=== PATIENT | female | born 1955 | race Caucasian/White ===

== ENCOUNTER → 2017-04-06 12:06 | Outpatient (CLI) | payer BC, SELFPAY ==
--- NOTE | 2017-04-05 | IMM_PTH ---
PATIENT: ERICA RODRIGUEZ LOC: [facility] U#:[id number] AGE/SX: 69/F ROOM: RE04/06/[address]: Dr. Hodan Chong MD : 1955 BED: DIS: SPEC #: [id number] RECD: 04/09/17 12:50 STATUS: JOSE REQ #: [id number] SOILA: 04/05/17 00:[address]: Hodan Chong DEPT: IMMUNOHISTOCHEMISTRY RECD BY: Ada Scott ENTERED: 04/09/17 12:52 SP TYPE: IMMUNO OTHR DR: Dr. Ruth Jones DO Tissues: Left breast, NOS Procedures: CK5-6 (add) CK8 (add) E-CAD (add) HER2 ERNIE (add) KI-67 (add) P53 (add) WY (add) ER (initial) PHYSICIAN & INSTITUTION [place] [id number] SPECIMEN INFORMATION: Tissue Source: Left breast needle core biopsy Clinical Info: Abnormal left mammogram/ultrasound Specimen Number: [id number] CPT code: 87050, 30383 x4, 40863 x3 METHODOLOGY: Deparaffinized sections of prefer/formalin-fixed tissue or PAP/DQ stained slides are incubated with monoclonal/polyclonal antibodies/oligonucleotide probes. Localization is made via biotin free immunoperoxidase method. Appropriate controls are performed and reacted as expected. Results on target cell population are indicated in the following table: RESULTS: ANTIBODY / CLONE RESULT E-Cad (ECH-6) positive CK8 (30gljfC07) positive CK5-6 (D5 & 1684) negative Ki-67 (30-9) positive, moderate P53 (DO-7) positive MORPHOMETRIC ANALYSIS ER (clone 6F11) >95%, strong WY (clone 16/1E2) variable, 0-11%, weak Her-2Neu (clone CB11) 1+ The prognostic test for HER2 is performed on formalin-fixed paraffin embedded tissue. A 3+ (positive) staining pattern is defined as intense, homogeneous, complete, circumferential membranous staining in >10% of contiguous tumor cells. A similar weak (2+) staining pattern is interpreted as equivocal. LUDA follow-up testing is recommended for all equivocal cases. Positivity/negativity for ER/WY is reported if > or < 1% of the tumor cells are immuno- reactive, respectively. The ASCO/CAP criteria is used for scoring. Reference: Journal of Clinical Oncology, 2013; 31:9634-5346 & 2010; 16:6332-6235. Duration of fixation: 54.5 Hrs; Sample Adequate: Yes. These assays have not been validated on decalcified tissues. Results should be interpreted with caution given the likelihood of false negativity on decalcified specimens. These tests were developed and their performance characteristics determined by [facility]. They may not have been cleared or approved by the U.S. Food and Drug Administration. The FDA has determined that such clearance or approval is not necessary. INTERPRETATION: Left breast, ultrasound-guided needle core biopsy: Invasive ductal carcinoma, nuclear grade 3. Positive for estrogen receptors (favorable prognostic indicator). Positive for progesterone receptors (favorable prognostic indicator). Negative for overexpression of QHC1qay. SJ:lilibeth 04/10/17
--- NOTE | 2017-04-05 13:15 | BRBX_PTH ---
PATIENT: ERICA RODRIGUEZ LOC: [facility] U#:[id number] AGE/SX: 69/F ROOM: RE04/06/[address]: Dr. Hodan Chong MD : 1955 BED: DIS: SPEC #: [id number] RECD: 04/06/17 12:01 STATUS: JOSE REWendy #: [id number] SOILA: 04/05/17 13:[address]: Hodan Chong DEPT: SURGICAL PATHOLOGY RECD BY: Ada Scott ENTERED: 04/06/17 15:35 SP TYPE: BREAST BX OTHR DR: Dr. Ruht Jones DO Tissues: Left breast, NOS Procedures: Surgery Specimen Level IV HEADER OPERATION: Ultrasound-guided left breast needle core biopsy PRE-OP DIAGNOSIS: Abnormal left mammogram/ultrasound TISSUE SUBMITTED: Left breast needle core biopsy ISCHEMIC TIME: 3 minutes FIXATION TIME: 54.5 hours MICROSCOPIC DIAGNOSIS Left breast, ultrasound-guided needle core biopsy: Invasive ductal carcinoma, nuclear grade 3 (1 cm in greatest length). See comment. DAI:lilibeth 04/09/17 COMMENT Immunohistochemistry ([id number]) supports the above diagnosis. ER/FL/Iet7yzo studies are being performed on sections of tumor and the results from this study will be reported separately ([id number]). Please make reference to previous specimen ([id number]) left breast, core biopsy with diagnosis of fibrocystic change with associated microcalcifications. MICROSCOPIC DESCRIPTION Slides are reviewed. GROSS DESCRIPTION Received is one container labeled with the patient's name and not further designated. The specimen consists of multiple elongated fragments of bagley-yellow fibroadipose tissue that in aggregate measure 3 x 2 x 0.1 cm. The entire specimen is submitted in one cassette. / DAI:lilibeth 04/06/17 TC:0 CPT: 94574
== END ==
PROVIDERS: Family Provider Internal Medicine; PCP Internal Medicine; Visit Provider Surgery
DX: C50.912 Malignant neoplasm of unspecified site of left female breast (principal)
CPT/HCPCS: 88305; 88341; 88342

== ENCOUNTER 2017-04-20 11:34 | Observation (INO) | payer BC, SELFPAY ==
--- NOTE | 2017-04-19 09:24 | EKG12_ITS ---
Test Reason : PRE OP Blood Pressure : / mmHG Vent. Rate : 066 BPM Atrial Rate : 066 BPM P-R Int : 160 ms QRS Dur : 076 ms QT Int : 408 ms P-R-T Axes : 064 081 059 degrees QTc Int : 427 ms Normal sinus rhythm Normal ECG Confirmed by LOW MCMILLAN, RILEY ([id number]), editor managing newspaper MINERVA KIMBALL ([id number]) on 04/23/2017 1:59:03 PM Referred By: Hodan Chong Confirmed By:RILEY KELSEY MD
[2017-04-19 10:35] LABS: Hematocrit 42.2 % (37-47); Hemoglobin 13.8 g/dl (12.0-15.0); Mean Corp Hgb Conc 32.7 g/gl (32-36); Mean Corpuscular Hgb 28.2 pg (27.0-32.0); Mean Corpuscular Volume 86.3 fL (81-99); Mean Platelet Vol. 9.4 fl (6.2-12.0); Platelet Count 261 K/mm3 (150-450); RBC Distribution Width CV 13.2 % (11.6-14.6); RBC Distribution Width SD 41.5 fl (35.1-43.9); Red Blood Count 4.89 M/mm3 (4.2-5.4); White Blood Count 8.1 K/mm3 (4.4-11.0)
[2017-04-19 10:36] LABS: Scan Indicated on CBC? Y/N NO
[2017-04-19 10:51] LABS: BUN 14 mg/dL (7-18); BUN/Creat Ratio 23.9 RATIO (10-20); Chloride 103 mmol/L (98-107); Creatinine, Serum 0.59 mg/dL (0.55-1.02); EST Glomerular Filtration Rate 110 mL/min (>60); Est Glom Filt Rate - Afr Amer 134 mL/min (>60); Glucose 129 mg/dL (74-106); Potassium 3.9 mmol/L (3.5-5.1); Sodium Level 141 mmol/L (136-145)
[2017-04-19 10:52] LABS: Anion Gap 9 (5-15)
[2017-04-19 11:00] LABS: Hemoglobin A1c 6.3 % (4.2-6.3)
[2017-04-20] VITALS (11 sets, daily range): BP systolic 122–142; BP diastolic 58–71; PULSE 77–105; RESP 16–18; TEMP 36.1–36.9; O2SAT 93–99; BMI 36.2
--- NOTE | 2017-04-20 | AXNB_PTH ---
PATIENT: ERICA RODRIGUEZ LOC: [facility] U#:[id number] AGE/SX: 62/F ROOM: MS311 RE04/20/[address]: Dr. Hodan Chong MD : 1955 BED: 1 DIS: 04/21/2017 SPEC #: [id number] RECD: 04/20/17 13:17 STATUS: JOSE REQ #: [id number] SOILA: 04/20/17 00:[address]: Hodan Chong DEPT: SURGICAL PATHOLOGY RECD BY: Ada Scott ENTERED: 04/20/17 14:12 SP TYPE: AX NODE BX OTHR DR: Dr. Ruth Jones, Tissues: A - Axillary lymph node, NOS B - Left breast, NOS C - Right breast, NOS D - Left breast, NOS Procedures: Frozen Section (charge) Frozen [facility] Surgery Specimen Level IV Surgery Specimen Level V Frozen (no charge) HEADER OPERATION: Left breast mastectomy, left axillary sentinel node biopsy with Neoprobe PRE-OP DIAGNOSIS: Malignant neoplasm of upper outer quadrant of left breast, ER positive TISSUE SUBMITTED: A ? Left breast sentinel nodes, FS, B ? Left breast, C ? Right breast ? suture at tail of Chung, D ? Extra skin and tissue left breast FROZEN SECTION DIAGNOSIS A. Left axillary sentinel lymph nodes, biopsy: Three out of three lymph nodes positive for macrometastatic carcinoma. AM:lilibeth 04/20/17 MICROSCOPIC DIAGNOSIS A. Left axillary sentinel lymph nodes, biopsy: Three out of three lymph nodes positive for macrometastatic carcinoma. See comment. B. Left breast, mastectomy: Invasive ductal carcinoma. C. Right breast: Focal intraductal hyperplasia without atypia. Negative for carcinoma in the sections examined. D. Extra skin and tissue left breast: Negative for carcinoma. INVASIVE BREAST CANCER SUMMARY: (Including specimen A & B) Specimen ? total breast (including nipple and skin). Procedure ? total mastectomy (including nipple and skin). Lymph node sampling ? sentinel lymph nodes Specimen integrity ? single intact specimen. Specimen laterality - left Tumor size ? 3.5 x 3.3 x 3 cm Tumor focality ? single focus of invasive carcinoma Macroscopic and Microscopic extent of tumor: Skin ? invasive carcinoma does not invade into the dermis or epidermis. Nipple ? ductal carcinoma in situ does not nipple epidermis. Skeletal muscle ? no skeletal muscle present. Ductal carcinoma in situ (DCIS) ? no ductal carcinoma in situ is present. Lobular carcinoma in situ (LCIS) ? not identified Histologic type of invasive carcinoma ? invasive ductal carcinoma (no special type). Histologic Grade (Raymon grade): Glandular/tubular differentiation - score 3 Nuclear pleomorphism - score 3 Mitotic count ? score 2 Overall grade - 3 (score of 8) Margins - Margins uninvolved by invasive carcinoma. The invasive carcinoma is 1.5 cm away from the closest posterior margin. Treatment effect: Response to presurgical (neoadjuvant) therapy - no known presurgical therapy. Lymph-Vascular invasion ? not identified Dermal lymph-vascular invasion - not identified Lymph nodes: Number of sentinel lymph nodes examined - 3 Total number of lymph nodes examined (sentinel and nonsentinel) - 3 Number of lymph nodes with macrometastases - 3 Number of lymph nodes with micrometastases and isolated tumor cells - 0 Size of largest metastatic deposit ? 3.6 cm Extranodal extension ? present, focal (0.4 cm in greatest dimension) Distance metastasis ? not applicable Additional pathologic findings ? fibrocystic changes and intraductal hyperplasia without atypia. Ancillary studies - previously performed on section of tumor ([id number] / [id number]). ER ? positive (>95%, strong) SD ? positive (variable, 0-11%, weak) Her2 bhavani ? negative (1+) Microcalcifications ? not identified Clinical history - Please make reference to previous specimen ([id number]) left breast, ultrasound-guided needle core biopsy with diagnosis of invasive ductal carcinoma. PATHOLOGIC STAGE: pT2 pN1a(sn) Mx The above summary is in compliance with [employer] Pathology (CAP) Cancer Protocols Checklist and [place] Joint Committee on Cancer (AJCC), Staging Manual, 8th Ed. SJ:rg 04/25/17 COMMENT A. The lymph nodes are almost completely involved by the metastatic tumor. The largest lymph node measures 3.6 cm in greatest dimension. The largest focus of metastasis measures 3.6 cm in greatest dimension. Focal extranodal distention is noted which measures 0.4 cm in greatest dimension. Case has been reviewed in consultation with Dr. Townsend who concurs with the above diagnosis. IDC:AM MICROSCOPIC DESCRIPTION Slides are reviewed. GROSS DESCRIPTION A - Received fresh for frozen section consultation labeled with the patient's name is a specimen designated left axillary sentinel lymph nodes. The specimen consists of bagley-white, firm soft tissue measuring 6.5 x 5 x 2 cm. Dissection reveals three firm nodules ranging in size from 1.2 to 3.6 cm. Digital Account Executive sections of the nodules are submitted for frozen section consultation in three blocks (one nodule section per block). Additional sections of each nodule are submitted in blocks 4-6 with each nodule inked a different color. / AM: 04/20/17 B - Received in fixative is one container labeled with the patient's name and designated left breast. The specimen consists of a mastectomy specimen measuring 22 x 21 x 9 cm and weighing 1207 gm. Skin measures 20 x 8 cm. Nipple is central and no skin lesions. The specimen is differentially inked as follows: superior ? blue, inferior ? green and posterior ? black. The nipple and areola is grossly unremarkable. No cutaneous lesions are identified. Serial sections reveal a firm, bagley-white mass measuring 3.5 x 3.3 x 3 cm located 1.5 cm from the closest (posterior) margin of excision. The mass is present in the deep central portion of the breast. The remainder of the breast parenchyma is bagley-yellow with focal white streaks. No other mass lesions are identified. Digital Account Executive sections are submitted in 12 cassettes as follows: 1 ? nipple and perpendicular posterior margin, 2 - perpendicular superior and inferior margins, 3 ? perpendicular medial margin, 4 ? perpendicular lateral margin, 5-8 ? tumor, 912 - auto service representative sections of uninvolved breast parenchyma. / AM: 04/20/17 C - Received in fixative is one container labeled with the patient's name and designated right breast. The specimen consists of a mastectomy specimen measuring 25 x 18 x 9.5 cm and weighing 1064 gm. The specimen is differentially inked as follows: superior ? blue, inferior ? green and posterior ? black. The nipple and areola is grossly unremarkable. No cutaneous lesions are identified. Serial sections reveal homogenous yellow cut surfaces without mass lesions. Digital Account Executive sections are submitted in nine cassettes as follows: 1 ? nipple and areola, 2 ? perpendicular superior and inferior margins, 3 ? perpendicular posterior margin, 4 ? perpendicular medial margin, 5 ? perpendicular lateral margin, 69 - auto service representative sections of breast parenchyma. / AM:lilibeth 04/20/17 D - Received in fixative is one container labeled with the patient's name and designated extra skin and tissue, left breast. The specimen consists of multiple variable size pieces of skin and underlying adipose tissue and separate pieces of fibroadipose tissue that in aggregate measure 15 x 8 x 3 cm. The skin surface appears unremarkable. Sections do not reveal any mass lesion. Digital Account Executive sections are submitted in three cassettes. Cassette 1 contains the skin and underlying tissue. / SJ:lilibeth 04/23/17 TC:0 CPT: 00795 x3, 82129, 28292, 59837 x2 ADDENDUM ADDENDUM ADDENDUM ADDENDUM ADDENDUM ADDENDUM 05/28/2017 14:45 ADDENDUM 03/19/2020 10:10 ADDENDUM 05/28/2017 14:45 ADDENDUM 05/28/2017 14:45 ADDENDUM 05/28/2017 14:45 ADDENDUM 05/28/2017 14:45 Regional lymphadenopathy of left axillary contents was performed ([id number]) and shows rare metastatic tumor cells in one of seven lymph nodes. Case has been reviewed in consultation with Dr. Skinner who concurs with the above diagnosis. IDC:SJ PIK[facility] BREAST CANCER REPORT FROM [facility] PIK[facility] RESULT: No mutation detected Please see complete report in e-chart or EMR for further details
[2017-04-20 09:56] LABS: Bedside Glucose 137 mg/dL (70-110)
--- NOTE | 2017-04-20 11:33 | OP.PN_ITS ---
Immediate Post-Op Note Date of Procedure: 04/20/17 Primary Surgeon/Physician: Hodan Chong special education tutor: Unique Cloud Pre-Operative Diagnosis: left breast cancer Post-Operative Diagnosis: same Surgery/Procedure Performed:: left breast mastectomy, left axillary sentinel lymph node biopsy Description of Surgical Findings:: multiple large adenopathy of left axilla - positive Estimated Blood Loss: 100 ml Specimen's removed: left breast tissue, left axillary sentinel lymph macie tissue Type of Anesthesia:: General ASA Class: ASA2 Mod Systematic Disease - Admit VTE Documentation VTE Present on Admission: Yes VTE Mechan Device Prophylaxis: SCD's
[2017-04-20] MEDS: Isosulfan Blue 1% 5 ML Vial (12:00)
[2017-04-20] MEDS: Bupivacaine Mpf 0.5% 30 ML VIAL (13:54)
--- NOTE | 2017-04-20 14:00 | OP.PCM_ITS ---
Report of Operation Date of Procedure: 04/20/17 Pre-Operative Diagnosis: left breast cancer Post-Operative Diagnosis: same Surgery/Procedure Performed:: left breast mastectomy, left axillary sentinel lymph node biopsy Description of Surgical Findings:: multiple large adenopathy of left axilla - positive for metastatic disease institutional cook: Unique Cloud Type of Anesthesia:: General Anesthesiologist: Trung Mills Specimen's removed: left breast tissue, left axillary sentinel lymph macie tissue Drains: 2 15 Fr round passive drains - one left mastectomy and one in left axilla Estimated Blood Loss (mL): 100 ml Fluids Replaced: 1500 ml RL Description of Procedure: After informed consent was given the patient was brought to the OR and placed in the supine position on the operating room table. This procedure was done simultaneously with Dr. Hawkins - as he was doing a prophylactic right mastectomy. Appropriate time out protocol was followed. She was then placed under general anesthesia. 5 cc of diluted 50:50 lymphozurin was then injected into the periareolar area and around the biopsy cavity with a 25 g needle. Gentle massage was then done for a few minutes. The patient's chest and neck area was then prepped with a sterile surgical skin preparation and appropriate sterile surgical drapes were placed. A skin incision was made to include the periareolar tissues as well as to encompass the original biopsy incision. The skin incision was made with a 10 blade scalpel and carried through to the subcutaneous tissues using electrocautery. Any hemorrhage was controlled with electrocautery. The medial and superior skin flap was created by the subcutaneous fat from the breast tissue using electrocautery. Any bleeding vessels were controlled with electrocautery. Larger vessels were ligated with vicryl suture. Dissection then continued to the level of the left lateral sternal border. The superior level of dissection was carried down to the clavipectoral fascia. The inferior skin flap was developed in the same fashion and the breast tissue was to its inferior border from the subcutaneous fat. The entire breast tissue and the pectoralis fascia were then from the pectoralis muscles starting medially and continuing laterally. The dissection included the interpectoral macie tissue. Once dissection was achieved to the lateral aspect of the breast, then the inferior portion of the lateral tissue was transected leaving the breast tissue connected only by the superior lateral tissue (tail of Chung) of the breast. Blunt dissection was then conducted into the axillary fossa to palpate out any axillary lymph nodes. Blue lymphatic channels were also followed to its lymphatic drainage area. There was palpable adenopathy noted in the axilla. This tissue was dissected from the surrounding tissues and the vascular pedicles were ligated with ligaclips. The lymph macie tissue was forwarded to pathology and found to be positive for metastatic disease. Hemostasis of the area of dissection was then achieved with electrocoagulation. Also Jason was applied into the axillary cavity as well as surgicel. The mastectomy bed was vigorously irrigated with sterile water and all irrigation solution was removed. Jason was applied to the mastectomy bed. A 15 Fr drain round drain was placed in the axilla and another was placed along the mastectomy bed and these drains were brought out through separate skin incisions and sutured to the skin using nylon suture. The superior and inferior skin flaps were then approximated together using interrupted vicryl suture along the dermis of the skin edges. The skin incision was then reapproximated with 4-0 monocryl in a running subcuticular fashion. Cavilon and steristrips were then placed to reinforce the skin closure and proper sterile dressings were applied. - Complications none noted - Admit VTE Documentation VTE Present on Admission: Yes VTE Mechan Device Prophylaxis: SCD's
--- NOTE | 2017-04-20 14:54 | PCM.OPRPT ---
Report of Operation Date of Procedure: 04/20/17 Pre-Operative Diagnosis: left breast cancer Post-Operative Diagnosis: same Surgery/Procedure Performed:: right simple mastectomy health workers: Brittny Mccullough Type of Anesthesia:: General Anesthesiologist: Trung Mills Specimen's removed: right breast Drains: 15 Fr round passive drain Estimated Blood Loss (mL): 100 ml Fluids Replaced: 1500 ml RL Description of Procedure: The patients right breast was prepped and draped in the usual fashion. Timeout was performed verifying patient, site, position. The planned margin of excision for the mastectomy flaps were marked on the skin and incisions were made . Dissection was carried superior laterally down to the pectoralis muscle and dissection extended towards the axilla. Superior and inferior flaps were completed and raised. The breast tissue was taken down to the pectoralis fascia. The inferior portion of breast was then removed from the intercostal musculature and dissection carried superior laterally dividing the superficial tissues leading up to the axillary dissection . The specimen was sent whole . 1 Newton-Duarte drain were placed in the medial along the skin flap the lateral in the axilla and secured with 3-0 nylon suture. Skin flaps were approximated interrupted 3-0 Vicryls. Skin was closed with running 4-0 monocryl. Drain dressings and incisional dressings were placed. All sponge and instrument counts were correct. The patient was extubated and brought to recovery room in stable condition.
--- NOTE | 2017-04-20 14:58 | OP.PCM_ITS ---
Report of Operation Date of Procedure: 04/20/17 Pre-Operative Diagnosis: left breast cancer Post-Operative Diagnosis: same Surgery/Procedure Performed:: right simple mastectomy coater brake linings: Brittny Mccullough Type of Anesthesia:: General Anesthesiologist: Trung Mills Specimen's removed: right breast Drains: 15 Fr round passive drain Estimated Blood Loss (mL): 100 ml Fluids Replaced: 1500 ml RL Description of Procedure: The patient?s right breast was prepped and draped in the usual fashion. Timeout was performed verifying patient, site, position. The planned margin of excision for the mastectomy flaps were marked on the skin and incisions were made . Dissection was carried superior laterally down to the pectoralis muscle and dissection extended towards the axilla. Superior and inferior flaps were completed and raised. The breast tissue was taken down to the pectoralis fascia. The inferior portion of breast was then removed from the intercostal musculature and dissection carried superior laterally dividing the superficial tissues leading up to the axillary dissection . The specimen was sent whole . 1 Newton-Duarte drain were placed in the medial along the skin flap the lateral in the axilla and secured with 3-0 nylon suture. Skin flaps were approximated interrupted 3-0 Vicryls. Skin was closed with running 4-0 monocryl. Drain dressings and incisional dressings were placed. All sponge and instrument counts were correct. The patient was extubated and brought to recovery room in stable condition.
[2017-04-20] MEDS: Lactated Ringers 1,000 ML 100 ML IV (15:26)
[2017-04-20 16:11] LABS: Bedside Glucose 162 mg/dL (70-110)
[2017-04-20] MEDS: HYDROcodone Bitartrate/Apap 5/325 Tablet PO (18:44)
[2017-04-20] MEDS: Cefazolin 1 GM/50 ML BAG IV (21:40)
[2017-04-20] MEDS: Temazepam 15 MG Capsule PO (21:44)
[2017-04-21 02:23] VITALS: BP 130/68; PULSE 91; RESP 16; TEMP 37; O2SAT 95
[2017-04-21] MEDS: HYDROcodone Bitartrate/Apap 5/325 Tablet PO ×2 (02:30→09:35)
[2017-04-21] MEDS: Lactated Ringers 1,000 ML 100 ML IV (02:30)
[2017-04-21] MEDS: Cefazolin 1 GM/50 ML BAG IV (05:52)
--- NOTE | 2017-04-21 07:39 | PCM.PN.SRG ---
Subjective: patient feeling well - Physical Exam General: Alert, Oriented x3 Oral: Moist Mucosa Neck: Supple Abdomen: Bowel Sounds Present, Soft Skin: - - dressing intact, no seepage, MAC outputs are serosanguinous Vital Signs Temp Pulse Resp BP Pulse Ox 98.6 F 91 16 130/68 H 95 04/21/17 02:23 04/21/17 02:23 04/21/17 02:23 04/21/17 02:23 04/21/17 02:23 Oxygen Flow Rate (L/min) 2 Oxygen Delivery Method Room Air Weight: 87 kg Body Mass Index (BMI) 36.2 Finger Stick Blood Glucose 162 Intake and Output for Last 24 Hours 04/19/17 04/20/17 04/21/17 23:59 23:59 23:59 Intake Total 3783 / 3783 1606 / 1606 Output Total 75 / 75 595 / 595 Balance 3708 / 3708 1011 / 1011 POC Glucose 04/20/17 04/20/17 16:05 09:32 POC Glucose 162 H 137 H Assessment/Plan Impression: POD#1 bilateral mastectomies for left breast cancer Plan: d/c to home, follow up as outpatient T or W (patient's preference)
--- NOTE | 2017-04-21 07:43 | DCINST_ITS ---
Discharge Diet: No Restrictions Discharge Activity: Return to Normal Activity, May not drive while taking narcotic pain medications. Lifting Restrictions: no lifting with left arm greater than 20 pounds Call your doctor if your incision/area has: Continuous Slow Oozing, Foul Smelling Discharge Call your doctor if you observe: Fever of 101 or Higher Additional Dressing/Incision Instructions:: Leave dressing in place. Sponge bathe only. Empty MAC drains as instructed Allergies/Adverse Reactions: Allergies shellfish derived Allergy (Mild, Verified 04/18/17 14:00) Hives iodine Allergy (Verified 04/18/17 14:00) Hives liraglutide [From Victoza] Adverse Reaction (Verified 04/20/17 09:38) Nausea, VOMITING IV DYE Allergy (Mild, Uncoded 04/18/17 14:00) Hives Medications to take at Discharge Butalbital/Aspirin/Caffeine [Fiorinal 50-325-40 mg Capsule] 1 tab PO DAILY PRN PRN 03/21/13 Fluoxetine [Prozac] 20 mg PO DAILY 03/21/13 Multivitamins,Therapeutic [Multivitamin] 1 tablet PO QHS 03/21/13 Omeprazole [Prilosec] 40 mg PO DAILY 03/21/13 Acetaminophen [Tylenol Extra Strength] 500 - 1,000 mg PO Q6H PRN PRN 04/18/17 Apremilast [Otezla] 30 mg PO BID 04/18/17 Ascorbic Acid [Vitamin C] 500 mg PO MOWEFR 04/18/17 Aspirin/Acetaminophen/Caffeine [Excedrin Migraine Caplet] 1 each PO PRN PRN 08/29 Calm Day 3 cap PO DAILY 04/18/17 Cholecalciferol (Vitamin D3) [Vitamin D3] 4,000 unit PO MOWEFR 04/18/17 Ibuprofen 400 mg PO PRN PRN 04/18/17 Melatonin [Melatin] 6 mg PO QHS 04/18/17 Metformin HCl 500 mg PO BID 04/18/17 Cephalexin [Keflex] 500 mg PO Q12 #20 cap 04/20/17 Hydrocodone Bitart/Apap 5-325 [[place] 5MG-325MG] 1 tab PO Q6H PRN PRN 7 Days #20 tab 04/20/17 The following prescriptions were given: Hydrocodone Bitart/Apap 5-325 [[place] 5MG-325MG] 1 tab PO Q6H PRN PRN 7 Days #20 tab PRN Reason: Severe Pain (-11/21) Cephalexin [Keflex] 500 mg PO Q12 #20 cap Please Follow Up With: Yareli Valentino PA-C - call When: Follow up next Sunday or Sunday, call for date and time, thank you
[2017-04-21 08:21] VITALS: BP 128/55; PULSE 80; RESP 18; TEMP 37.3; O2SAT 96
[2017-04-21] MEDS: 0.9% NaCl Peripheral Flush Adult/Peds IV (08:23)
[2017-04-21] MEDS: FLUoxetine 20 MG Capsule PO (08:41)
[2017-04-21 08:51] LABS: Bedside Glucose 152 mg/dL (70-110)
== END 2017-04-21 10:31 | disposition home or self-care (01) ==
LOC: MS3 04-21 07:05 → SDC 04-21 07:06
PROVIDERS: Surgery; Admitting Provider Surgery; Family Provider Internal Medicine; PCP Internal Medicine; Visit Provider Surgery
PROC: (CPT 19307; principal; 2017-04-20 11:25)
PROC: (CPT 19303; 2017-04-20 11:25)
DX: C50.412 Malignant neoplasm of upper-outer quadrant of left female breast (principal); Z17.0 Estrogen receptor positive status [ER+]; E11.9 Type 2 diabetes mellitus without complications; Z79.899 Other long term (current) drug therapy; Z79.52 Long term (current) use of systemic steroids; Z79.84 Long term (current) use of oral hypoglycemic drugs; Z87.891 Personal history of nicotine dependence; K21.9 Gastro-esophageal reflux disease without esophagitis; E78.00 Pure hypercholesterolemia, unspecified; K58.9 Irritable bowel syndrome, unspecified; F32.9 Major depressive disorder, single episode, unspecified; L40.50 Arthropathic psoriasis, unspecified
CPT/HCPCS: 19303; 19307; 38900; 36415; 80048; 82962; 83036; 85027; 88305; 88307; 88331; 88332; 93005; 96361; 96365; 96366; 96375; 96376; 99218; J3010; J7120; A4216; G0378; J2405; J3490; Q9968

== ENCOUNTER 2017-05-24 05:26 | Day surgery (SDC) | payer BC, SELFPAY ==
[2017-05-24] VITALS (9 sets, daily range): BP systolic 120–159; BP diastolic 54–84; PULSE 71–98; RESP 16; TEMP 36.3–37.4; O2SAT 94–99; BMI 35.4
--- NOTE | 2017-05-24 | IMM_PTH ---
PATIENT: ERICA RODRIGUEZ LOC: [facility] – [place] U#:[id number] AGE/SX: 62/F ROOM: RE05/24/[address]: Dr. Hodan Chong MD : 1955 BED: DIS: 05/24/2017 SPEC #: [id number] RECD: 05/28/17 14:26 STATUS: JOSE REQ #: [id number] SOILA: 05/24/17 00:[address]: Hodan Chong DEPT: IMMUNOHISTOCHEMISTRY RECD BY: Ada Scott ENTERED: 05/28/17 14:27 SP TYPE: IMMUNO OTHR DR: Dr. Ruth Jones, Tissues: A - Axilla, NOS Procedures: Pankeratin (initial) Pankeratin (add) PHYSICIAN & INSTITUTION [place] [id number] SPECIMEN INFORMATION: Tissue Source: A ? Left axillary contents Clinical Info: Left breast cancer Specimen Number: [id number] A1, A2, A4, A5, A7 [facility] code: 42935, 21041 x4 METHODOLOGY: Deparaffinized sections of prefer/formalin-fixed tissue or PAP/DQ stained slides are incubated with monoclonal/polyclonal antibodies/oligonucleotide probes. Localization is made via biotin free immunoperoxidase method. Appropriate controls are performed and reacted as expected. Results on target cell population are indicated in the following table: RESULTS: ANTIBODY / CLONE RESULT Block A1 AE1-3 (AE1/AE3/PCK26) negative Block A2 AE1-3 (AE1/AE3/PCK26) positive Block A4 AE1-3 (AE1/AE3/PCK26) negative Block A5 AE1-3 (AE1/AE3/PCK26) negative Block A7 AE1-3 (AE1/AE3/PCK26) negative These tests were developed and their performance characteristics determined by [facility]. They may not have been cleared or approved by the U.S. Food and Drug Administration. The FDA has determined that such clearance or approval is not necessary. INTERPRETATION: A. Left axillary contents: Isolated metastatic tumor cells present in one out of seven lymph nodes. AM:lilibeth 05/30/17
[2017-05-24 06:06] LABS: Bedside Glucose 178 mg/dL (70-110)
[2017-05-24] MEDS: Cefazolin 2 GM in 0.9% Normal Saline 100 ML IV (07:29)
[2017-05-24] MEDS: Bupivacaine 0.25% 30 ML Vial (07:29)
--- NOTE | 2017-05-24 07:30 | MISC_PTH ---
PATIENT: ERICA RODRIGUEZ LOC: [facility] – [place] U#:[id number] AGE/SX: 62/F ROOM: RE05/24/[address]: Dr. Hodan Chong MD : 1955 BED: DIS: 05/24/2017 SPEC #: [id number] RECD: 05/24/17 10:37 STATUS: JOSE CRISTOFER #: [id number] SOILA: 05/24/17 07:[address]: Hodan Chong DEPT: SURGICAL PATHOLOGY RECD BY: Palmer Choi ENTERED: 05/24/17 12:20 SP TYPE: MISC NATHALIE DR: Dr. Ruth Jones DO Tissues: A - Left axillary region B - Skin of breast, NOS Procedures: Surgery Specimen Level IV HEADER OPERATION: Excision lymph node, axillary PRE-OP DIAGNOSIS: Left breast cancer, invasive ductal, ER/NH positive, HER2 negative, bulky adenopathy of left axilla TISSUE SUBMITTED: A ? Left axillary contents, B ? ?Dog ear? MICROSCOPIC DIAGNOSIS A. Left axillary contents, regional lymphadenectomy: Isolated metastatic tumor cells in one of seven lymph nodes. B. ?Dog ear,? excision: Skin with attached fibrofatty tissue with reactive and reparative change and suture granulomas. No evidence of malignancy. AM:lilibeth 05/28/17 COMMENT Case has been reviewed in consultation with Dr. Skinner who concurs with the above diagnosis. IDC:SJ MICROSCOPIC DESCRIPTION Slides are reviewed. A. The largest lymph node contains benign histiocytic proliferation, fibrosis and minimal chronic inflammation consistent with previous biopsy and resection ([id number]). Immunohistochemistry ([id number]) supports the presence of isolated metastatic tumor cells in one out of seven lymph nodes. GROSS DESCRIPTION A - Received in fixative is one container labeled with the patient's name and designated left axillary contents. The specimen consists of a piece of bagley-yellow adipose tissue with multiple sutures measuring 8 x 6 x 2 cm. One large lymph node is identified measuring 2.5 cm in greatest dimension. Multiple additional smaller lymph nodes are identified measuring 0.5 to 2 cm in greatest dimension. The lymph nodes are submitted in entirety. County Manager sections are submitted as follows: 1 ? multiple lymph nodes, 2-4 ? largest lymph node serially sectioned, 5 ? one bisected lymph node, 6 - one bisected lymph node, 7 ? multiple lymph nodes. Sections will be submitted after overnight fixation. / DAI:lilibeth 05/24/17 B - Received in fixative is one container labeled with the patient's name and designated dog ear. The specimen consists of a piece of skin with underlying adipose tissue measuring 6 x 3 cm and up to 7 cm in thickness. A focal area of scar is noted in the skin surface. The specimen is shaped like a dog ear. No mass lesion is identified. County Manager sections are submitted in four cassettes. / DAI:lilibeth 05/24/17 TC:0 CPT: 41641, 68895
--- NOTE | 2017-05-24 09:00 | OP.PN_ITS ---
Immediate Post-Op Note Date of Procedure: 05/24/17 Primary Surgeon/Physician: Hodan Chong mechanical project manager: Alma Swan Pre-Operative Diagnosis: history of left breast cancer, left axillary bulky adenopathy, left mastectomy dog ear Post-Operative Diagnosis: same as above Surgery/Procedure Performed:: Left axillary lymphadenectomy, revision of left mastectomy dog ear Description of Surgical Findings:: bulky adenopathy of left axilla, left mastectomy lateral dog ear Estimated Blood Loss: 30 ml Specimen's removed: left axillary lymph node contents Drains: 15 Fr round drain Type of Anesthesia:: General ASA Class: ASA2 Mod Systematic Disease - Admit VTE Documentation VTE Present on Admission: Yes VTE Mechan Device Prophylaxis: SCD's
--- NOTE | 2017-05-24 09:00 | PCM.OPRPT ---
Report of Operation Date of Procedure: 05/24/17 Pre-Operative Diagnosis: history of left breast cancer, left axillary bulky adenopathy, left mastectomy dog ear Post-Operative Diagnosis: same as above Surgery/Procedure Performed:: Left axillary lymphadenectomy, revision of left mastectomy dog ear Description of Surgical Findings:: bulky adenopathy of left axilla, left mastectomy lateral dog ear wood machine carver: Alma Swan Type of Anesthesia:: General Anesthesiologist: April Fulton Specimen's removed: left axillary lymph node contents Drains: 15 Fr round drain Estimated Blood Loss (mL): 30 ml Fluids Replaced: 1200 ml RL Description of Procedure: After informed consent was given the patient was brought to the OR and placed in the supine position on the operating room table. Appropriate time out protocol was followed. She was then placed under general anesthesia. The patient's left chest and neck area was then prepped with a betadine surgical skin preparation and appropriate sterile surgical drapes were placed. A skin incision was made in the inferior portion of the hair bearing area of the left axilla. It was carried through to the subcutaneous tissues using electrocautery. Any hemorrhage was controlled with electrocautery. A Weitlaner retractor was used for increased operative exposure. Blunt dissection was done to fully enter into the axillary fossa. The axillary vein was identified. Dissection was then continued inferior to the vein, ligating lymphatic vessels and small blood vessels with the Harmonic scalpel. Dissection was continued laterally until the thoracodorsal bundle was identified. The axillary macie tissue was then carefully from this bundle and the bundle placed back into its proper position. The axillary macie tissue was retracted anteriorly and medially until the long thoracic nerve and vessels were identified. The axillary macie tissue was then from the surrounding fatty tissue and off the chest wall. The Harmonic scalpel was used to separate the macie tissue from the surrounding tissues. The tissue once was then forwarded to pathology for analysis. Of note, there is bulky adenopathy noted in the axillary macie tissue. Hemostasis was controlled with electrocautery. The long thoracic nerve and thoracodorsal nerves were identified and were intact and functioning. Jason was applied into the axillary cavity. A 15 mm round drain was placed in the fossa and brought out through a separate skin incision and sutured to the skin using nylon suture. The deep axillary fascia was reapproximated with interrupted 2-0 vicryl suture. The skin edges were reapproximated with 3-0 vicryl suture in a horizontal mattress fashion and then further closed with running 4-0 monocryl in a subcuticular fashion. Cavilon and steristrips were then placed to reinforce the skin closure and proper sterile dressings were applied. The left breast dog ear revision was then done next. The previous incision site was incised and an ellipse of skin tissue was incised with a 15 blade scalpel incorporating the dog ear tissue. It was sharply carried down to the subcutaneous tissues. Hemostasis was controlled with electrocautery. The extra subcutaneous fatty tissue was excised by sharp dissection. The tissue was forwarded to pathology for analysis. The deep tissues were approximated with vicryl suture. Reapproximation of the skin would require a Y shaped incisional scar. A horizontal mattress suture into the dermis was placed with 3-0 vicryl suture. The skin incision was then closed with running subcuticular 4-0 monocryl suture. Cavilon and steristrips were then placed to reinforce the skin closure and proper sterile dressings were applied. - Complications none noted - Admit VTE Documentation VTE Present on Admission: Yes VTE Mechan Device Prophylaxis: SCD's
--- NOTE | 2017-05-24 09:03 | OP.PCM_ITS ---
Report of Operation Date of Procedure: 05/24/17 Pre-Operative Diagnosis: history of left breast cancer, left axillary bulky adenopathy, left mastectomy dog ear Post-Operative Diagnosis: same as above Surgery/Procedure Performed:: Left axillary lymphadenectomy, revision of left mastectomy dog ear Description of Surgical Findings:: bulky adenopathy of left axilla, left mastectomy lateral dog ear production operations manager: Alma Swan Type of Anesthesia:: General Anesthesiologist: April Fulton Specimen's removed: left axillary lymph node contents Drains: 15 Fr round drain Estimated Blood Loss (mL): 30 ml Fluids Replaced: 1200 ml RL Description of Procedure: After informed consent was given the patient was brought to the OR and placed in the supine position on the operating room table. Appropriate time out protocol was followed. She was then placed under general anesthesia. The patient's left chest and neck area was then prepped with a betadine surgical skin preparation and appropriate sterile surgical drapes were placed. A skin incision was made in the inferior portion of the hair bearing area of the left axilla. It was carried through to the subcutaneous tissues using electrocautery. Any hemorrhage was controlled with electrocautery. A Weitlaner retractor was used for increased operative exposure. Blunt dissection was done to fully enter into the axillary fossa. The axillary vein was identified. Dissection was then continued inferior to the vein, ligating lymphatic vessels and small blood vessels with the Harmonic scalpel. Dissection was continued laterally until the thoracodorsal bundle was identified. The axillary macie tissue was then carefully from this bundle and the bundle placed back into its proper position. The axillary macie tissue was retracted anteriorly and medially until the long thoracic nerve and vessels were identified. The axillary macie tissue was then from the surrounding fatty tissue and off the chest wall. The Harmonic scalpel was used to separate the macie tissue from the surrounding tissues. The tissue once was then forwarded to pathology for analysis. Of note, there is bulky adenopathy noted in the axillary macie tissue. Hemostasis was controlled with electrocautery. The long thoracic nerve and thoracodorsal nerves were identified and were intact and functioning. Jason was applied into the axillary cavity. A 15 mm round drain was placed in the fossa and brought out through a separate skin incision and sutured to the skin using nylon suture. The deep axillary fascia was reapproximated with interrupted 2-0 vicryl suture. The skin edges were reapproximated with 3-0 vicryl suture in a horizontal mattress fashion and then further closed with running 4-0 monocryl in a subcuticular fashion. Cavilon and steristrips were then placed to reinforce the skin closure and proper sterile dressings were applied. The left breast dog ear revision was then done next. The previous incision site was incised and an ellipse of skin tissue was incised with a 15 blade scalpel incorporating the dog ear tissue. It was sharply carried down to the subcutaneous tissues. Hemostasis was controlled with electrocautery. The extra subcutaneous fatty tissue was excised by sharp dissection. The tissue was forwarded to pathology for analysis. The deep tissues were approximated with vicryl suture. Reapproximation of the skin would require a Y shaped incisional scar. A horizontal mattress suture into the dermis was placed with 3 -0 vicryl suture. The skin incision was then closed with running subcuticular 4 -0 monocryl suture. Cavilon and steristrips were then placed to reinforce the skin closure and proper sterile dressings were applied. - Complications none noted - Admit VTE Documentation VTE Present on Admission: Yes VTE Mechan Device Prophylaxis: SCD's
--- NOTE | 2017-05-24 09:03 | PCM.DC.BS ---
Discharge Diet: No Restrictions Discharge Activity: Return to Normal Activity, May not drive while taking narcotic pain medications. Lifting Restrictions: no lifting with left arm greater than 20 pounds Call your doctor if your incision/area has: Continuous Slow Oozing, Foul Smelling Discharge Call your doctor if you observe: Fever of 101 or Higher Additional Dressing/Incision Instructions:: Leave dressings in place. Sponge bathe only until MAC drain is removed. Allergies/Adverse Reactions: Allergies shellfish derived Allergy (Mild, Verified 05/23/17 08:38) Hives iodine Allergy (Verified 05/23/17 08:38) Hives liraglutide [From Victoza] Adverse Reaction (Verified 05/23/17 08:38) Nausea, VOMITING IV DYE Allergy (Mild, Uncoded 05/23/17 08:38) Hives Medications to take at Discharge Butalbital/Aspirin/Caffeine [Fiorinal 50-325-40 mg Capsule] 1 tab PO DAILY PRN PRN 03/21/13 Fluoxetine [Prozac] 20 mg PO DAILY 03/21/13 Multivitamins,Therapeutic [Multivitamin] 1 tablet PO QHS 03/21/13 Omeprazole [Prilosec] 40 mg PO DAILY 03/21/13 Acetaminophen [Tylenol Extra Strength] 500 - 1,000 mg PO Q6H PRN PRN 04/18/17 Apremilast [Otezla] 30 mg PO BID 04/18/17 Ascorbic Acid [Vitamin C] 500 mg PO MOWEFR 04/18/17 Aspirin/Acetaminophen/Caffeine [Excedrin Migraine Caplet] 1 each PO PRN PRN 04/18/17 Calm Day 3 cap PO DAILY 04/18/17 Cholecalciferol (Vitamin D3) [Vitamin D3] 2,000 unit PO DAILY 04/18/17 Ibuprofen 400 mg PO PRN PRN 04/18/17 Melatonin [Melatin] 6 mg PO QHS 04/18/17 Metformin HCl 500 mg PO BID 04/18/17 Calcium (Elemental) [Os-Huy 500] 1,000 mg PO DAILY 05/23/17 Hydrocodone Bitart/Apap 5-325 [[place] 5MG-325MG] 1 tab PO Q6H PRN PRN #20 tab 05/24/17 The following prescriptions were given: Hydrocodone Bitart/Apap 5-325 [[place] 5MG-325MG] 1 tab PO Q6H PRN PRN #20 tab PRN Reason: Pain Primary Care Physician: Ruth Jones, [Primary Care Provider] - Please Follow Up With: Hodan Chong MD - call When: to be seen on Sunday, please call for time, thank you
[2017-05-24 10:36] LABS: Bedside Glucose 126 mg/dL (70-110)
[2017-05-24] MEDS: HYDROcodone Bitartrate/Apap 5/325 Tablet PO (12:08)
== END 2017-05-24 12:00 | disposition home or self-care (01) ==
LOC: SDC 05:26 → AC 05:27
PROVIDERS: Family Provider Internal Medicine; PCP Internal Medicine; Visit Provider Surgery
PROC: (CPT 38500; principal; 2017-05-24 07:15)
DX: C50.412 Malignant neoplasm of upper-outer quadrant of left female breast (principal); C77.3 Secondary and unspecified malignant neoplasm of axilla and upper limb lymph nodes; E11.9 Type 2 diabetes mellitus without complications; K21.9 Gastro-esophageal reflux disease without esophagitis; E78.00 Pure hypercholesterolemia, unspecified; Z87.891 Personal history of nicotine dependence; Z17.0 Estrogen receptor positive status [ER+]; Z85.3 Personal history of malignant neoplasm of breast
CPT/HCPCS: 15839; 38525; 82962; 88305; 88341; 88342; J7120; A4216; J2405

== ENCOUNTER → 2017-12-21 11:24 | Outpatient (CLI) | payer BC, SELFPAY ==
[2017-12-21 11:45] VITALS: BP 121/47; PULSE 94; RESP 18; TEMP 37.7; O2SAT 99
[2017-12-21 11:46] VITALS: BMI 35.2
[2017-12-21] MEDS: Ceftriaxone 2 GM in 0.9% NS 50 ML Minibag x1 IV (12:06)
== END ==
PROVIDERS: Family Provider Internal Medicine; PCP Internal Medicine; Visit Provider Internal Medicine Hematology & Oncology
DX: L03.313 Cellulitis of chest wall (principal); L03.311 Cellulitis of abdominal wall
CPT/HCPCS: 96365; J7050; A4216; J0696

== ENCOUNTER 2018-01-18 19:53 | Emergency (ER) | payer BC, SELFPAY ==
[2018-01-18 19:55] VITALS: BP 126/92; PULSE 107; RESP 18; TEMP 37; O2SAT 97; BMI 35.3
[2018-01-18 20:51] VITALS: BP 142/61; PULSE 101; RESP 17; TEMP 38.7; O2SAT 96
[2018-01-18 20:51] LABS: Absolute Lymphocyte Count 0.73 X10^3/ul (0.83-4.51); Absolute Neutrophil Count 10.8 X10^3/uL (2.0-7.7); Basophil# 0.02 X10^3/uL; Basophil% 0.2 % (0-1); Eosinophil# 0.14 X10^3/uL; Eosinophils% 1.1 % (0-5); Hematocrit 38.2 % (37-47); Hemoglobin 12.4 g/dl (12.0-15.0); Lymphocyte # 0.73 X10^3/ul (4.0); Lymphocyte % 5.9 % (19-41); Mean Corp Hgb Conc 32.5 g/gl (32-36); Mean Corpuscular Hgb 27.3 pg (27.0-32.0); Mean Corpuscular Volume 84.1 fL (81-99); Mean Platelet Vol. 8.5 fl (6.2-12.0); Monocyte# 0.69 X10^3/uL; Monocyte% 5.6 % (0-10); Neutrophil # 10.77 X10^3/uL (2.7-7.7); Neutrophil % 87.1 % (47-70); POSITIVE COUNT NO; POSITIVE DIFFERENTIAL NO; POSITIVE MORPHOLOGY NO; Platelet Count 203 K/mm3 (150-450); RBC Distribution Width CV 14.2 % (11.6-14.6); RBC Distribution Width SD 43.8 fl (35.1-43.9); Red Blood Count 4.54 M/mm3 (4.2-5.4); White Blood Count 12.4 K/mm3 (4.4-11.0)
[2018-01-18 20:53] LABS: ALB/GLOB Ratio 1.1 RATIO (0.9-2.4); AST(SGOT) 16 U/L (15-37); Alanine Aminotransfer ALT/SGPT 24 U/L (13-56); Alkaline Phosphatase 91 U/L (45-117); Anion Gap 7 (5-15); BUN 11 mg/dL (7-18); BUN/Creat Ratio 14.3 RATIO (10-20); Calcium,Total 8.7 mg/dL (8.5-10.1); Chloride 103 mmol/L (98-107); Creatinine, Serum 0.77 mg/dL (0.55-1.02); EST Glomerular Filtration Rate 81 mL/min (>60); Est Glom Filt Rate - Afr Amer 97 mL/min (>60); Estimated Creatinine Clearance 57.16 ml/min; Globulin 3.5 g/dL (2.2-4.2); Glucose 128 mg/dL (74-106); Protein, Total 7.5 g/dL (6.4-8.2); Sodium Level 138 mmol/L (136-145)
[2018-01-18 20:54] LABS: Lactic Acid 1.6 mmol/L (0.4-2.0)
[2018-01-18 21:05] LABS: Prothrombin Time (Protime)PT. 13.1 SECONDS (11.7-14.9)
[2018-01-18 21:06] LABS: Partial Thromboplast Time 26.9 Seconds (24.1-36.2)
--- NOTE | 2018-01-18 21:37 | ED.VISSUMM ---
- ER Visit Summary Date of Service: 01/18/18 Chief Complaint: Cellulitis History of Present Illness: The patient is a 62 F presenting for evaluation secondary to cellulitis. Patient has an underlying history of breast cancer, status post bilateral mastoidectomy. Patient states that since she had her radiation treatments she has had one prior episode of cellulitis. Patient states that over the course last 24 hours she has had a outbreak of a rash on her right chest with fever and chills. Fever was as high as 100.4 at home. Patient states that when she had this in the past, she was given 2 g of Rocephin and a course of Augmentin and it seemed to alleviate her course of cellulitis. Patient denies any other infectious signs or symptoms at this point. Review of systems otherwise negative. Physical Examination: Vital signs notable for temperature of 101.7. Well-nourished female no acute distress. Examination of the patient's chest shows bilateral mastectomy scars. Patient has conley over the left chest which she states are from her radiation treatments, and has a cellulitic rash over her right hemithorax. No evidence of subcutaneous emphysema. No streaking. No fluctuance. Remainder of physical otherwise unremarkable. Test Results: CBC demonstrates leukocytosis 12.4, lactic acid negative. Remainder the patient's laboratory workup unremarkable. Blood cultures are pending. Emergency Department Course and Treatment: Patient presented with cellulitis. Laboratory workup was unremarkable except for leukocytosis. Patient was given Tylenol and 2 g of Rocephin. Repeat evaluation shows the patient to be nontoxic-appearing. At this point I believe she is appropriate for initial outpatient treatment. She was given strict return instructions, was started on a course of Augmentin, and she will follow-up with her oncologist early next week. Disposition: Discharge Impression: 1. Right chest cellulitis This note was generated with [email or web address] dictation software. It may contain incorrect words, spelling, and punctuation that were not noted in review of the chart prior to signing ED Disposition - Plan for ED Patient: Disposition: Home or Assisted Living Chief Complaint: Cellulitis Diagnosis: Cellulitis Instructions: Discharge Instructions for Cellulitis Prescriptions: Amox/Clavulanate Tablet [Augmentin Tablet] 875 mg PO Q12H #20 tab Referrals: Ruth Jones DO [Primary Care Provider] - 3-5 Days
[2018-01-18 21:51] VITALS: BP 120/60; PULSE 91; PULSE 93; RESP 18; O2SAT 96; O2SAT 97
[2018-01-18] MEDS: Acetaminophen 500 MG Tablet 1000 MG PO (21:53)
[2018-01-18 22:01] VITALS: BP 120/60
--- NOTE | 2018-01-19 07:03 | ED.RN ---
lab called with positive blood culture results. Spoke with Dr. Kuo. Dr. Kuo encouraging patient to come in for further treatment. Patient contacted and made aware at this time
== END 2018-01-18 22:03 | disposition home or self-care (01) ==
PROVIDERS: Emergency Provider Emergency Medicine; Family Provider Internal Medicine; PCP Internal Medicine
DX: L03.313 Cellulitis of chest wall (principal); Z85.3 Personal history of malignant neoplasm of breast; E11.9 Type 2 diabetes mellitus without complications
CPT/HCPCS: 80053; 83605; 85025; 85610; 85730; 87040; 87149; 87186; 96365; 99285; J7030; A4216; J0696

== ENCOUNTER 2018-01-19 07:34 | Inpatient (IN) | payer BC, SELFPAY ==
[2018-01-18 19:55] VITALS: BMI 35.3
[2018-01-19] VITALS (7 sets, daily range): BP systolic 126–136; BP diastolic 56–71; PULSE 78–103; RESP 16–20; TEMP 36.2–38.1; O2SAT 96–100; BMI 35.1; BMI 34.5; BMI 34.6
[2018-01-19] MEDS: 0.9% Normal Saline 1,000 ML 1000 ML IV (08:23)
--- NOTE | 2018-01-19 08:25 | ED.DCSUM_ITS ---
- ER Visit Summary Date of Service: 01/19/18 Chief Complaint: Rash, fever History of Present Illness: The patient is a [address] Ashby and Dr. Jones. She reports that approximately 1 month ago she had cellulitis to her abdomen and was treated with an IV dose of Rocephin and placed on Augmentin for 10 days. It seemed to resolve. However, she reports that yesterday morning she woke up and the rash had returned and she had a fever to 101.4 degrees. She was seen in the emergency department last night and had blood cultures obtained. She was given IV Rocephin and placed on Augmentin. Today the blood cultures returned and were positive so she is come back to the emergency department. Patient reports she has had nausea. No vomiting. She denies any abdominal pain. She does reports that she has a little bit of cough and sinus drainage. Physical Examination: Vitals: Stable. Afebrile. General: Well-nourished and well-developed. Head: Normocephalic atraumatic. Neck: Supple, no lymphadenopathy. No JVD. Nontender. Cardiovascular: Regular rate and rhythm. No murmurs. Respiratory: No respiratory distress. Clear to auscultation bilaterally. Bilateral mastectomy. Scars are well-healed. She does have radiation damage to the left breast area. Abdominal: Soft, nontender, nondistended, normal bowel sounds. No guarding, rebound, or peritoneal signs. Back: Nontender. Extremities: Nontender, no edema. Skin: Erythema and warmth that is diffuse over her abdomen and lower chest. No crepitus. No induration or fluctuance. No tenderness to palpation. Neurologic: Alert and oriented ?3. Cranial nerves II through XII are intact. Normal strength and sensation. Psych: Normal affect. Test Results: Labs from last night were not repeated. At that time her white count was 12.4 with 87 segmented neutrophils and 6 lymphocytes. Her lactic acid was 1.6. Her lactic acid this morning is 1.2. Emergency Department Course and Treatment: Patient had an IV placed. She was given vancomycin IV. She is resting comfortably. She refused pain or nausea medications. Treatment Plan: Patient was discussed with Dr. Baltazar. She will be admitted to the hospital for further relation and treatment. Disposition: Admitted in stable condition. Impression: 1. Cellulitis to abdomen. 2. Bacteremia. This note was generated with [employer] dictation software. It may contain incorrect words, spelling, and punctuation that were not noted in review of the chart prior to signing ED Disposition - Plan for ED Patient: Chief Complaint: Cellulitis
[2018-01-19 08:53] LABS: Lactic Acid 1.2 mmol/L (0.4-2.0)
--- NOTE | 2018-01-19 10:38 | HP.PCM_ITS ---
Problem List (1) Cellulitis of trunk Status: Acute (2) Cancer of breast, intraductal Status: Chronic (3) Rheumatoid arthritis Status: Chronic (4) Obesity Status: Chronic (5) History of cigarette smoking unknown Status: Chronic (6) Diabetes mellitus type II, controlled Status: Chronic (7) Hyperlipidemia Status: Chronic (8) Hypertension Status: Chronic History of Present Illness Date of Admission: 01/19/18 Chief Complaint: Rash in chest and abdomen The patient is a 62 year old F with history of intraductal CA left breast, probably a stage IIb as per the patient, status post bilateral mastectomy and left axillary lymphadenectomy completed chemotherapy and radiotherapy, last chemo in October 2017 and last radiation in December 2017, currently on Arimid ex, follows Dr. Pantoja came to ER with redness, swelling, fever ER yesterday and today. Yesterday she was given 2 g of Rocephin and was sent home on Augmentin. Initially cellulitis was restricted to chest, started from left breast area but today it has spread to the abdomen. Temperature at home 101.7 Fahrenheit. Patient had similar cellulitis in recent past and was treated with IV Rocephin and Augmentin. Initial lab of 01/18 shows mild leukocytosis of 12.4 thousand, neutrophil 87%, lymphocyte 6%. She has history of type 2 diabetes mellitus/glucose is well controlled, 128 mg percent on BMP. Lactic acid is normal. Blood culture on both bottles drawn on 01/18 shows gram-positive cocci in chains on Gram stain. She is further admitted for failure of outpatient treatment Past Medical History Past Medical History (Chronic Problems): Chronic Problems Cancer of breast, intraductal (Chronic) Rheumatoid arthritis (Chronic) Obesity (Chronic) History of cigarette smoking unknown (Chronic) Diabetes mellitus type II, controlled (Chronic) Hyperlipidemia (Chronic) Hypertension (Chronic) Allergies shellfish derived Allergy (Mild, Verified 01/19/18 07:35) Hives iodine Allergy (Verified 01/19/18 07:35) Hives liraglutide [From Victoza] Adverse Reaction (Verified 01/19/18 07:35) Nausea, VOMITING IV DYE Allergy (Mild, Uncoded 01/19/18 07:35) Hives Home Medications: Ambulatory Orders Medication Instructions Recorded Butalbital/Aspirin/Caffeine 1 tab PO DAILY PRN PRN 03/21/13 [Fiorinal 50-325-40 mg Capsule] Fluoxetine [Prozac] 20 mg PO DAILY 03/21/13 Multivitamins,Therapeutic 1 tablet PO QHS 03/21/13 [Multivitamin] Omeprazole [Prilosec] 40 mg PO DAILY 03/21/13 Acetaminophen [Tylenol Extra 500 - 1,000 mg PO Q6H PRN PRN 04/18/17 Strength] Aspirin/Acetaminophen/Caffeine 1 each PO PRN PRN 04/18/17 [Excedrin Migraine Caplet] Calm Day 1 cap PO DAILY 04/18/17 Cholecalciferol (Vitamin D3) 2,000 unit PO DAILY 04/18/17 [Vitamin D3] Ibuprofen 400 mg PO PRN PRN 04/18/17 Metformin HCl 500 mg PO BID 04/18/17 Calcium (Elemental) [Os-Huy 500] 1,000 mg PO DAILY 05/23/17 Anastrozole [Arimidex] 1 mg PO DAILY 01/18/18 Lorazepam [Ativan] 1 mg PO QHS PRN PRN 01/19/18 Ondansetron [Zofran] 8 mg PO Q8H PRN PRN 01/19/18 Surgical History: - - Breast biopsy Heart cath Psychiatric History: No pertinent psych hx 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 Denies: Abdominal Pain, Vomiting Genitourinary: Denies: Dysuria Musculoskeletal: Denies: Joint Pain, Joint Tenderness Skin: Reports: Rash, Skin Changes - Radiation changes of left breast skin. Denies: Wounds Neurological: Denies: Numbness, Tingling, Focal weakness Psychiatric: Denies: Anxiety, Depression, Homicidal Ideations, Suicidal Ideations Hematologic/ Lymphatic: Denies: Easy Bruising, Easy Bleeding VTE Information - Inpt Only VTE Present on Admission: No VTE Mechan Device Prophylaxis: SCD's VTE Pharm Prophylaxis ordered?: Yes Patient Problems: Active and Suspected Problems Cellulitis of trunk (Acute) - Physical Exam General: Alert, Oriented x3, Cooperative HEENT: Atraumatic, PERRLA, EOMI, Normocephalic Neck: Supple, No JVD, Negative Carotid Bruits Lungs: Clear to auscultation, Normal air movement, No rhonchi, No wheeze, No rales Cardiovascular: Regular rate, Regular Rhythm, Normal S1, Normal S2, No murmurs Abdomen: Bowel Sounds Present, Soft, Non Tender, Non-Distended Extremities: No edema, Capillary Refill Less than 3 Seconds Skin: Rash Present - Erythematous rash present over chest and trunk diffuse. Radiation dermatitis changes over left pectoral region. Musculoskeletal: No Tenderness to Palpation of Joints or Extremities Neurological: Cranial nerves II-XII grossly intact, Deep Tendon Reflexes 2+/4 and Symmetrical, Neuro grossly intact, Motor Exam 5/5 strength throughout Psych/Mental Status: Normal Affect, Appropriate Vital Signs Temp Pulse Resp BP Pulse Ox 99.0 F 78 16 127/57 H 100 01/19/18 10:03 01/19/18 10:03 01/19/18 10:03 01/19/18 10:03 01/19/18 10:03 Oxygen Delivery Method Room Air Weight: 183 lb Body Mass Index (BMI) 34.5 Finger Stick Blood Glucose 126 Laboratory Tests Past 24 Hrs 01/19/18 01/19/18 08:15 10:25 Lactic Acid 1.2 MRSA (PCR) Pending Assessment/Plan All Active Problems Cellulitis of trunk (Acute) The patient is a 62 year old F with history of intraductal CA left breast, probably a stage IIb as per the patient, status post bilateral mastectomy and left axillary lymphadenectomy completed chemotherapy and radiotherapy, last chemo in October 2017 and last radiation in December 2017, currently on Arimidex, follows Dr. Pantoja came to ER with redness, swelling, fever ER yesterday and today. Yesterday she was given 2 g of Rocephin and was sent home on Augmentin. Initially cellulitis was restricted to chest, started from left breast area but today it has spread to the abdomen. Temperature at home 101.7 Fahrenheit. Patient had similar cellulitis in recent past and was treated with IV Rocephin and Augmentin. Initial lab of 01/18 shows mild leukocytosis of 12.4 thousand, neutrophil 87%, lymphocyte 6%. She has history of type 2 diabetes mellitus/glucose is well controlled, 128 mg percent on BMP. Lactic acid is normal. Blood culture on both bottles drawn on 01/18 shows gram-positive cocci in chains on Gram stain. On 01/18, temperature was 101.7 Fahrenheit in ED. She is further admitted for failure of outpatient treatment 1. SIRS (fever, tachycardia and mild leukocytosis) secondary to cellulitis of chest and abdominal wall, most likely from Streptococcus: Patient is being admitted on regular MedSurg floor. IV antibiotic vancomycin started in ER and will continue it. IV fluid normal saline. Monitor intake/output. MRSA nasal screen ordered. She denies lower urinary tract symptoms, flulike symptoms, cough or symptoms suggestive of bronchitis or pneumonia. Labs ordered. 2. 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 Pantoja. There is no oncologist documentation/note in our system. Follow-up with Dr. Pantoja as an outpatient. Hold Arimidex 3. Diabetes mellitus type 2 with good glycemic control: Accu-Chek before meals and at bedtime and cover with NovoLog sliding scale. Home medications continued. A1c ordered. 4. Other chronic comorbidities include rheumatoid arthritis, hypertension and hyperlipidemia: Home medication reconciliation done. Multiple comorbidities complicates the present care and expect difficult and delay recovery DVT prophylaxis: On Lovenox 40 mg subcu daily. Code Visit Inpatient E&M: 94418 Init Hosp L3
[2018-01-19 10:46] LABS: Erythrocyte Sedimentation Rate 12 mm/hr (0-30)
[2018-01-19] MEDS: Acetaminophen 325 MG Tablet 650 MG PO ×2 (10:56→21:52)
[2018-01-19 11:02] LABS: Hemoglobin A1c 5.9 % (4.2-6.3)
--- NOTE | 2018-01-19 11:35 | PCM.RX.CS ---
Consult Pharmacy has been consulted to manage selected antiobiotic: Vancomycin Type of Consult: New start Suspected Infection: Skin/Soft tissue Prior Doses of Antibiotics Received/Current Regimen: Received vancomycin 1250mg IV x1 in E.R. at 08:23 Weight used for dosin kg Estimated Creatinine Clearance: 57 ml/min Goal Trough: 10-15 mcg/mL Pharmacy Plan for Drug Dosing: Patient already received the standard 15mg/kg initial dose in E.R. so will continue at 1500mg IV q24h per the [facility] Pharmacist-Managed IV Vancomycin Dosing Protocol. Will start this dose slightly earlier than 24 hours after the E.R. dose since that dose was only 1250mg. Pharmacy Service will continue to monitor and adjust dosing as required. Follow-Up Labs: Trough Vancomycin Labs to be done on [date and time ordered]: 01/21/18 at 03:30 before the dose at 04:00
--- NOTE | 2018-01-19 11:39 | PHA.PHARE_ITS ---
Consult Pharmacy has been consulted to manage selected antiobiotic: Vancomycin Type of Consult: New start Suspected Infection: Skin/Soft tissue Prior Doses of Antibiotics Received/Current Regimen: Received vancomycin 1250mg IV x1 in E.R. at 08:23 Weight used for dosin kg Estimated Creatinine Clearance: 57 ml/min Goal Trough: 10-15 mcg/mL Pharmacy Plan for Drug Dosing: Patient already received the standard 15mg/kg initial dose in E.R. so will continue at 1500mg IV q24h per the [facility] Pharmacist-Managed IV Vancomycin Dosing Protocol. Will start this dose slightly earlier than 24 hours after the E.R. dose since that dose was only 1250mg. Pharmacy Service will continue to monitor and adjust dosing as required. Follow-Up Labs: Trough Vancomycin Labs to be done on [date and time ordered]: 01/21/18 at 03:30 before the dose at 04:00
[2018-01-19] MEDS: 0.9% Normal Saline 1,000 ML 100 ML IV ×2 (11:41→21:54)
[2018-01-19] MEDS: Enoxaparin 40 MG/0.4 ML Syringe SC (11:56)
[2018-01-19 12:00] LABS: Bedside Glucose 128 mg/dL (70-110)
[2018-01-19 12:58] LABS: M R Staph aureus DNA By PCR Negative (Negative); Probe Check PASS; Specimen Processing Control PASS
[2018-01-19] MEDS: FLUoxetine 20 MG Capsule PO (13:55)
[2018-01-19] MEDS: Pantoprazole Sodium 40 MG Tablet PO (13:55)
[2018-01-19] MEDS: Ibuprofen 400 MG Tablet PO (16:16)
[2018-01-19 16:50] LABS: Bedside Glucose 125 mg/dL (70-110)
[2018-01-19] MEDS: Multivitamins,Therapeutic Tablet 1 TABLET PO (21:52)
[2018-01-19] MEDS: LORazepam 0.5 MG Tablet 1 MG PO (21:53)
[2018-01-19 22:11] LABS: Bedside Glucose 114 mg/dL (70-110)
[2018-01-20 03:38] VITALS: BP 125/68; PULSE 71; RESP 18; TEMP 36.8; O2SAT 100
[2018-01-20 06:26] LABS: Bedside Glucose 142 mg/dL (70-110)
[2018-01-20 06:33] LABS: Absolute Lymphocyte Count 0.59 X10^3/ul (0.83-4.51); Absolute Neutrophil Count 2.9 X10^3/uL (2.0-7.7); Basophil# 0.02 X10^3/uL; Basophil% 0.5 % (0-1); Eosinophil# 0.12 X10^3/uL; Eosinophils% 2.9 % (0-5); Hematocrit 31.4 % (37-47); Lymphocyte # 0.59 X10^3/ul (4.0); Lymphocyte % 14.2 % (19-41); Mean Corp Hgb Conc 31.8 g/gl (32-36); Mean Corpuscular Volume 84.9 fL (81-99); Mean Platelet Vol. 8.4 fl (6.2-12.0); Monocyte# 0.48 X10^3/uL; Monocyte% 11.5 % (0-10); Neutrophil # 2.94 X10^3/uL (2.7-7.7); Neutrophil % 70.7 % (47-70); Platelet Count 142 K/mm3 (150-450); RBC Distribution Width CV 14.4 % (11.6-14.6); RBC Distribution Width SD 45.2 fl (35.1-43.9); White Blood Count 4.2 K/mm3 (4.4-11.0)
[2018-01-20 06:35] LABS: Differential Indicated SCAN CRITERIA MET; POSITIVE COUNT NO; POSITIVE DIFFERENTIAL YES; POSITIVE MORPHOLOGY NO
[2018-01-20 07:03] LABS: ALB/GLOB Ratio 0.9 RATIO (0.9-2.4); AST(SGOT) 14 U/L (15-37); Alanine Aminotransfer ALT/SGPT 19 U/L (13-56); Albumin, Serum 2.7 g/dL (3.2-5.0); Alkaline Phosphatase 66 U/L (45-117); Anion Gap 7 (5-15); BUN 7 mg/dL (7-18); BUN/Creat Ratio 13.6 RATIO (10-20); Chloride 112 mmol/L (98-107); Creatinine, Serum 0.51 mg/dL (0.55-1.02); EST Glomerular Filtration Rate 128 mL/min (>60); Est Glom Filt Rate - Afr Amer 155 mL/min (>60); Estimated Creatinine Clearance 86.31 ml/min; Globulin 2.9 g/dL (2.2-4.2); Glucose 126 mg/dL (74-106); Potassium 3.8 mmol/L (3.5-5.1); Protein, Total 5.6 g/dL (6.4-8.2); Sodium Level 144 mmol/L (136-145)
--- NOTE | 2018-01-20 07:51 | PCM.PROGNOTE ---
Patient Problems: Active and Suspected Problems Cellulitis of trunk (Acute) Subjective: Chief complaint: Follow-up after admission for acute probably bacterial cellulitis of the anterior abdominal wall and chest as well as bacteremia. Patient seen and examined. No acute events overnight. She is still having spikes of low-grade fever. She has stated that the erythema and irritation of the abdomen was getting slightly better. No significant improvement in terms of distribution of the erythema and swelling. Denies chest pain or shortness of breath. Her vital signs are stable. - Physical Exam General: Alert, Oriented x3, Cooperative, No apparent distress HEENT: Atraumatic, PERRLA, EOMI, Normocephalic Oral: Moist Mucosa, No Gingival or Mucosal Lesions/ Ulcerations Neck: Supple, No JVD, Negative Carotid Bruits, Trachea Midline, Thyroid Normal Size and Texture Lungs: Clear to auscultation, No rhonchi, No wheeze, No rales, Diminished Cardiovascular: Regular rate, Regular Rhythm, Normal S1, Normal S2, No murmurs, PMI Normal Abdomen: Bowel Sounds Present, Soft, Non Tender, Non-Distended, No Hepato-splenomegaly, Obese Extremities: No clubbing, No cyanosis, No edema Skin: Ulcer/ Wound, Rash Present, - - Erythema and swelling involving the anterior abdominal wall as well as lower part of the chest, hot to palpation, no open wounds and no drainage. Lymphatic: No Cervical, Supraclavicular, or Inguinal Adenopathy Neurological: Cranial nerves II-XII grossly intact, Motor Exam 5/5 strength throughout Psych/Mental Status: Normal Affect, Appropriate, Alert and oriented to time, place, person, mood and affect Vital Signs Temp Pulse Resp BP Pulse Ox 98.3 F 71 18 125/68 H 100 01/20/18 03:38 01/20/18 03:38 01/20/18 03:38 01/20/18 03:38 01/20/18 03:38 Oxygen Delivery Method Room Air Weight: 183 lb Body Mass Index (BMI) 34.5 Finger Stick Blood Glucose 126 Intake and Output for Last 24 Hours 01/18/18 01/19/18 01/20/18 23:59 23:59 23:59 Intake Total 3835 / 3835 Balance 3835 / 3835 Laboratory Tests Past 24 Hrs 12/08/18 12/08/18 12/08/18 08:15 10:25 10:25 WBC RBC Hgb Hct MCV MCH MCHC RDW RDW Differential Plt Count MPV Immature Gran % (Auto) Neut % (Auto) Lymph % (Auto) [place] % (Auto) Eos % (Auto) Baso % (Auto) Absolute Neuts (auto) Absolute Lymphs (auto) Total Counted ESR 12 Sodium Potassium Chloride Carbon Dioxide Anion Gap BUN Creatinine Estim Creat Clear Calc Est GFR (MDRD) Af Amer Est GFR (MDRD) Non-Af BUN/Creatinine Ratio Glucose Hemoglobin A1c 5.9 Lactic Acid 1.2 Calcium Total Bilirubin AST ALT Alkaline Phosphatase Total Protein Albumin Globulin Albumin/Globulin Ratio MRSA (PCR) 01/19/18 01/20/18 01/20/18 10:25 05:47 05:47 WBC 4.2 L RBC 3.70 L Hgb 10.0 L Hct 31.4 L MCV 84.9 MCH 27.0 MCHC 31.8 L RDW 14.4 RDW Differential 45.2 H Plt Count 142 L MPV 8.4 Immature Gran % (Auto) 0.200 Neut % (Auto) 70.7 H Lymph % (Auto) 14.2 L [place] % (Auto) 11.5 H Eos % (Auto) 2.9 Baso % (Auto) 0.5 Absolute Neuts (auto) 2.9 Absolute Lymphs (auto) 0.59 L Total Counted Not Reportable ESR Sodium 144 Potassium 3.8 Chloride 112 H Carbon Dioxide 25.0 Anion Gap 7 BUN 7 Creatinine 0.51 L Estim Creat Clear Calc 86.31 Est GFR (MDRD) Af Amer 155 Est GFR (MDRD) Non-Af 128 BUN/Creatinine Ratio 13.6 Glucose 126 H Hemoglobin A1c Lactic Acid Calcium 8.0 L Total Bilirubin 0.30 AST 14 L ALT 19 Alkaline Phosphatase 66 Total Protein 5.6 L Albumin 2.7 L Globulin 2.9 Albumin/Globulin Ratio 0.9 MRSA (PCR) Negative POC Glucose 01/20/18 01/19/18 01/19/18 06:19 21:58 16:47 POC Glucose 142 H 114 H 125 H 01/19/18 11:54 POC Glucose 128 H Medical Necessity - Tobacco Use Smoking Status: Current some day smoker - Cigarette smoking Assessment/Plan All Active Problems Cellulitis of trunk (Acute) This is a 62 years old female patient admitted because of skin rash and erythema of the anterior abdominal wall and chest, found to have acute cellulitis of the anterior abdominal wall and chest as well as streptococcal bacteremia. #1 acute/recurrent cellulitis of the anterior abdominal wall/chest/sepsis: Patient was septic on admission because of tachycardia, leukocytosis and source of infection. Lactic acid was normal. She is on IV vancomycin. 1 month ago, she had similar presentation, was given 1 dose of Rocephin and 10 days of Augmentin orally and resolved. She is still having spikes of low-grade fever, white blood cell count is down. Her absolute neutrophil count is normal. No significant improvement of the erythema and swelling of the anterior abdominal wall. Blood culture revealed Streptococcus agalactiae. Other vital signs are stable. Plan: Continue same treatment, repeat blood culture, infectious disease consult. #2 streptococcal bacteremia: Probable source is the cellulitis mentioned above. Patient does have bilateral mastectomy for breast cancer. MRSA screen is negative. She is on IV vancomycin. Plan as above, repeat blood culture, infectious disease consult. #3 type 2 diabetes mellitus: Blood sugar stable, continue metformin and sliding scale. Hemoglobin A1c is 5.9. #4 history of breast cancer: Status post bilateral mastectomy, chemotherapy and radiation, currently on anastrozole. #5 anxiety/depression: Continue Prozac and Ativan. #6 DVT prophylaxis: Subcu Lovenox. This note was generated with [employer] dictation software. It may contain incorrect words, spelling, and punctuation that were not noted in checking the note before signing. Code Visit Inpatient E&M: 77224 Subs Hosp L2
[2018-01-20 08:39] VITALS: BP 142/67; PULSE 70; RESP 18; TEMP 36.7
[2018-01-20] MEDS: Acetaminophen 325 MG Tablet 650 MG PO (08:52)
[2018-01-20] MEDS: Calcium (Elemental) 500 MG Tablet 1000 MG PO (08:53)
[2018-01-20] MEDS: Enoxaparin 40 MG/0.4 ML Syringe SC (08:54)
[2018-01-20] MEDS: FLUoxetine 20 MG Capsule PO (08:54)
[2018-01-20] MEDS: Pantoprazole Sodium 40 MG Tablet PO (08:54)
[2018-01-20] MEDS: Docusate Sodium 100 MG Capsule 200 MG PO (08:59)
[2018-01-20 11:56] LABS: Bedside Glucose 104 mg/dL (70-110)
[2018-01-20 14:20] VITALS: BP 136/61; PULSE 75; RESP 18; TEMP 36.9
[2018-01-20] MEDS: oxyCODONE 5 MG Tablet PO ×2 (14:27→20:16)
[2018-01-20 17:01] LABS: Bedside Glucose 104 mg/dL (70-110)
[2018-01-20 20:07] VITALS: BP 131/56; PULSE 72; RESP 18; TEMP 37.1; O2SAT 97
[2018-01-20] MEDS: Multivitamins,Therapeutic Tablet 1 TABLET PO (20:16)
[2018-01-20] MEDS: LORazepam 0.5 MG Tablet 1 MG PO (20:17)
--- NOTE | 2018-01-20 20:21 | NURSING ---
pt requested all medication so she could go to sleep. also to not be woken up until vancomycin needs to be given at 0330.
[2018-01-21 00:26] LABS: Bedside Glucose 119 mg/dL (70-110)
[2018-01-21 03:27] VITALS: BP 131/86; PULSE 69; RESP 18; TEMP 36.8; O2SAT 97
[2018-01-21 04:32] LABS: Vancomycin, Trough Level 5.2 ug/mL (5.0-15.0)
[2018-01-21 06:06] LABS: Bedside Glucose 107 mg/dL (70-110)
--- NOTE | 2018-01-21 06:22 | PCM.RX.CS ---
Consult Pharmacy has been consulted to manage selected antiobiotic: Vancomycin Type of Consult: Follow-up Suspected Infection: Skin/Soft tissue Labs: Sodium 144 mmol/L (136-145) 01/20/18 05:47 Potassium 3.8 mmol/L (3.5-5.1) 01/20/18 05:47 Chloride 112 mmol/L (98-107) H 01/20/18 05:47 Carbon Dioxide 25.0 mmol/L (21.0-32.0) 01/20/18 05:47 Anion Gap 7 (5-15) 01/20/18 05:47 BUN 7 mg/dL (7-18) 01/20/18 05:47 Creatinine 0.51 mg/dL (0.55-1.02) L 01/20/18 05:47 Est GFR (MDRD) Af Amer 155 mL/min (>60) 01/20/18 05:47 Est GFR (MDRD) Non-Af 128 mL/min (>60) 01/20/18 05:47 BUN/Creatinine Ratio 13.6 RATIO (10-20) 01/20/18 05:47 Glucose 126 mg/dL (74-106) H 01/20/18 05:47 Vancomycin Trough 5.2 ug/mL (5.0-15.0) 01/21/18 03:32 Goal Trough: 10-15 mcg/mL Pharmacy Plan for Drug Dosing: Pharmacy Service will continue to monitor and adjust dosing as required. Medications Vancomycin HCl 1,750 mg/ (Sodium Chloride) 535 mls @ 250 mls/hr IV Q12H SUDARSHAN TROUGH 5.2 NEW DOSE 1750MG Q12H NEXT TROUGH 01/23 @ 0300 Follow-Up Labs: Trough Vancomycin Labs to be done on [date and time ordered]: 01/23 @ 0300
[2018-01-21] MEDS: Calcium (Elemental) 500 MG Tablet 1000 MG PO (08:29)
[2018-01-21 08:30] VITALS: BP 125/53; PULSE 76; RESP 18; TEMP 37.1; O2SAT 99
[2018-01-21] MEDS: Anastrozole 1 MG Tablet PO (08:30)
[2018-01-21] MEDS: FLUoxetine 20 MG Capsule PO (08:30)
[2018-01-21] MEDS: Enoxaparin 40 MG/0.4 ML Syringe SC (08:30)
--- NOTE | 2018-01-21 08:30 | PN_ITS ---
Patient Problems: Active and Suspected Problems Cellulitis of trunk (Acute) Subjective: Chief complaint: Follow-up after admission for acute probably bacterial cellulitis of the anterior abdominal wall and chest as well as streptococcal bacteremia. Patient seen and examined. No acute event overnight. Rash on the abdominal wall and chest is getting better. She has been afebrile overnight. Her vital signs are stable. - Physical Exam General: Alert, Oriented x3, Cooperative, No apparent distress HEENT: Atraumatic, PERRLA, EOMI, Normocephalic Oral: Moist Mucosa, No Gingival or Mucosal Lesions/ Ulcerations Neck: Supple, No JVD, Negative Carotid Bruits, Trachea Midline, Thyroid Normal Size and Texture Lungs: Clear to auscultation, Normal air movement, No rhonchi, No wheeze, No rales Cardiovascular: Regular rate, Regular Rhythm, Normal S1, Normal S2, No murmurs Abdomen: Bowel Sounds Present, Soft, Non Tender, Non-Distended, No Hepato- splenomegaly Extremities: No clubbing, No cyanosis, No edema Skin: No breakdown, Rash Present Lymphatic: No Cervical, Supraclavicular, or Inguinal Adenopathy Neurological: Cranial nerves II-XII grossly intact, Neuro grossly intact Psych/Mental Status: Normal Affect, Appropriate, Alert and oriented to time, place, person, mood and affect Vital Signs Temp Pulse Resp BP Pulse Ox 98.3 F 69 18 131/86 H 97 01/21/18 03:27 01/21/18 03:27 01/21/18 03:27 01/21/18 03:27 01/21/18 03:27 Oxygen Delivery Method Room Air Weight: 183 lb Body Mass Index (BMI) 34.5 Finger Stick Blood Glucose 126 Intake and Output for Last 24 Hours 01/19/18 01/20/18 01/21/18 23:59 23:59 23:59 Intake Total 3835 / 3835 1310 / 1310 1619 / 1619 Output Total 3300 / 3300 1500 / 1500 Balance 3835 / 3835 -1989 / 119 / 119 Laboratory Tests Past 24 Hrs 01/21/18 03:32 Vancomycin Trough 5.2 POC Glucose 01/21/18 01/20/18 01/20/18 05:50 20:19 16:38 POC Glucose 107 119 H 104 01/20/18 11:13 POC Glucose 104 Medical Necessity - Tobacco Use Smoking Status: Current some day smoker - Cigarette smoking Assessment/Plan All Active Problems Cellulitis of trunk (Acute) This is a 62 years old female patient admitted because of skin rash and erythema of the anterior abdominal wall and chest, found to have acute cellulitis of the anterior abdominal wall and chest as well as streptococcal bacteremia. #1 acute/recurrent cellulitis of the anterior abdominal wall/chest/sepsis: She is on IV vancomycin. She has been afebrile overnight, white blood cell count is back to normal. Local erythema of the anterior abdominal wall and chest wall is getting better. Other vital signs are stable. Repeat blood cultures are pending. Lactic acid was normal. 1 month ago, she had similar presentation, was given 1 dose of Rocephin and 10 days of Augmentin orally and resolved. Infectious disease consulted, awaiting recommendations. Plan to continue with same treatment. #2 streptococcal bacteremia: Probable source is the cellulitis mentioned above. Patient does have bilateral mastectomy for breast cancer. MRSA screen is negative. She is on IV vancomycin. Repeat blood culture is pending. Infectious disease consulted as above. #3 type 2 diabetes mellitus: Blood sugar stable, continue metformin and sliding scale. Hemoglobin A1c is 5.9. #4 history of breast cancer: Status post bilateral mastectomy, chemotherapy and radiation, currently on anastrozole. #5 anxiety/depression: Continue Prozac and Ativan. #6 DVT prophylaxis: Subcu Lovenox. This note was generated with [employer] software. It may contain incorrect words, spelling, and punctuation that were not noted in checking the note before signing. Code Visit Inpatient E&M: 69908 Subs Hosp L2
[2018-01-21] MEDS: Pantoprazole Sodium 40 MG Tablet PO (08:34)
[2018-01-21] MEDS: Ibuprofen 400 MG Tablet PO ×2 (08:34→21:34)
[2018-01-21] MEDS: 0.9% NaCl Peripheral Flush Adult/Peds IV ×2 (09:54→11:30)
--- NOTE | 2018-01-21 10:40 | CASEMGMT ---
RN ELIUD Face to Face with patient for initial transition planning/care coordination assessment. RN CM introduced self and role at [facility]. Patient lying in bed, alert and oriented, at bedside. Patient willing to participate in assessment and is able to answer all questions appropriately. Care providers, pharmacy, and demographics verified. Patient wishes to discharge home, denies need for home health at this time. Patient states she has no further needs or concerns at this time. CM to follow for discharge planning needs that may arise. PCP: Karen Specialists: [facility] Pharmacy: [facility] Insurance: [place] Prescription Benefit: [place] Living Will/HPOA: None LNOK: Living Arrangements: Patient lives with in 2 story house, independent at home. Transportation: Self/ DME/HHC: Patient has stair lift at home. Denies needs at this time. Disposition Plan: Patient to discharge home with family support and follow-up plans in place. Gloria MCCURDY, RN, CM
[2018-01-21] MEDS: Ondansetron 4 MG/2 ML Vial IV (11:30)
[2018-01-21 11:35] LABS: Bedside Glucose 125 mg/dL (70-110)
--- NOTE | 2018-01-21 13:26 | PCM.HP.ID ---
Problem List (1) Bacteremia due to group B Streptococcus Status: Acute Reason for Consult: bacteremia Consulted by: Dr. Wong History of Present Illness: The patient is a 62 year old F with h/o breast cancer now s/p bilateral mastectomy, chemo, and radiation who presented 01/19 with one day history of abd redness, pain, and itching. Has intermittent skin opening around R mastectomy site, no new drainage. Had similar episode a month ago, went to ED, resolved with dose of ceftriaxone and 10 days of augmentin. No new inciting events. Sx returned 01/18, associated with fever and chills. Called oncologist, sent to ED, given ceftriaxone and rx for augmentin. Bcx turned (+), and she was called to come back to hospital. Vanc started, now stopped, on ceftriaxone since Bcx identified as GBS. Feeling better, no further fever, redness much improved. Full ROS performed and neg except as noted above. - Medical History Past Medical History (Chronic Problems): Chronic Problems Cancer of breast, intraductal (Chronic) Rheumatoid arthritis (Chronic) Obesity (Chronic) History of cigarette smoking unknown (Chronic) Diabetes mellitus type II, controlled (Chronic) Hyperlipidemia (Chronic) Hypertension (Chronic) Allergies/Adverse Reactions: Allergies shellfish derived Allergy (Mild, Verified 01/19/18 07:35) Hives iodine Allergy (Verified 01/19/18 07:35) Hives liraglutide [From Victoza] Adverse Reaction (Verified 01/19/18 07:35) Nausea, VOMITING IV DYE Allergy (Mild, Uncoded 01/19/18 07:35) Hives Home Medications: Ambulatory Orders Medication Instructions Recorded Butalbital/Aspirin/Caffeine 1 tab PO DAILY PRN PRN 03/21/13 [Fiorinal 50-325-40 mg Capsule] Fluoxetine [Prozac] 20 mg PO DAILY 03/21/13 Multivitamins,Therapeutic 1 tablet PO QHS 03/21/13 [Multivitamin] Omeprazole [Prilosec] 40 mg PO DAILY 03/21/13 Acetaminophen [Tylenol Extra 500 - 1,000 mg PO Q6H PRN PRN 04/18/17 Strength] Aspirin/Acetaminophen/Caffeine 1 each PO PRN PRN 04/18/17 [Excedrin Migraine Caplet] Calm Day 1 cap PO DAILY 04/18/17 Ibuprofen 400 mg PO PRN PRN 04/18/17 Metformin HCl 500 mg PO BID 04/18/17 Anastrozole [Arimidex] 1 mg PO DAILY 01/18/18 Calcium 600-Vit D3 400 Tablet 1 capsule PO DAILY 01/19/18 Calcium Magnesium Vitamin D3 1 cap PO DAILY 01/19/18 Lorazepam [Ativan] 0.5 mg PO Q8H PRN PRN 01/19/18 Ondansetron [Zofran] 8 mg PO Q8H PRN PRN 01/19/18 - Social History Tobacco Use: cigarettes Vital Signs Temp Pulse Resp BP Pulse Ox 98.7 F 76 18 125/53 H 99 01/21/18 08:30 01/21/18 08:30 01/21/18 08:30 01/21/18 08:30 01/21/18 08:30 Oxygen Delivery Method Room Air Weight: 83.007 kg Body Mass Index (BMI) 34.5 Finger Stick Blood Glucose 126 Laboratory Tests Past 24 Hrs 01/21/18 03:32 Vancomycin Trough 5.2 - Other Studies Radiology: [] Other Studies: [] Route of nutrition/ use of supplements: [] Nutritional Intake: [] IV Site: [] Mukherjee Catheter: [] - Physical Exam General: Alert, Oriented x3, Cooperative, No apparent distress HEENT: Atraumatic, PERRLA, EOMI Neck: Supple, No Nodes Lungs: Clear to auscultation, Normal air movement Cardiovascular: Regular rate, Regular Rhythm, No murmurs Abdomen: Soft, Non Tender, Non-Distended Extremities: No edema Skin: Rash Present - over abd, nontender, fading erythema IV Site: Peripheral, without redness Musculoskeletal: No Tenderness to Palpation of Joints or Extremities Neurological: Cranial nerves II-XII grossly intact - Assessment/Plan Antibiotics: [] Assessment/Plan: [] Active and Suspected Problems Cellulitis of trunk (Acute) GBS bacteremia from abd cellulitis - likely source is skin opening around R mastectomy site, now healed. Low suspicion for residual abscess, so no need for CT scan at this point. Much improved, no further fever, repeat bcx neg so far. Cont ceftriaxone, plan on home with keflex 500mg tid for 2 week course. Will follow, thank you.
[2018-01-21 14:50] VITALS: BP 140/62; PULSE 65; RESP 16; TEMP 37.2; O2SAT 99
[2018-01-21 17:44] LABS: Bedside Glucose 114 mg/dL (70-110)
[2018-01-21 21:22] VITALS: BP 134/63; PULSE 63; RESP 16; TEMP 36.9; O2SAT 98
[2018-01-21] MEDS: Multivitamins,Therapeutic Tablet 1 TABLET PO (21:34)
[2018-01-21] MEDS: LORazepam 0.5 MG Tablet 1 MG PO (21:37)
[2018-01-21 21:56] LABS: Bedside Glucose 100 mg/dL (70-110)
[2018-01-22 02:48] VITALS: BP 101/66; PULSE 64; RESP 16; TEMP 37; O2SAT 97
[2018-01-22] MEDS: 0.9% NaCl Peripheral Flush Adult/Peds IV (06:54)
[2018-01-22 06:56] LABS: Bedside Glucose 108 mg/dL (70-110)
[2018-01-22 08:37] VITALS: BP 139/63; PULSE 67; RESP 18; TEMP 36.9; O2SAT 99
[2018-01-22] MEDS: Pantoprazole Sodium 40 MG Tablet PO (08:42)
[2018-01-22] MEDS: FLUoxetine 20 MG Capsule PO (08:42)
[2018-01-22] MEDS: Calcium (Elemental) 500 MG Tablet 1000 MG PO (08:42)
[2018-01-22] MEDS: Anastrozole 1 MG Tablet PO (08:43)
--- NOTE | 2018-01-22 08:54 | DCINST_ITS ---
- Discharge Diagnoses Current Active Problems: Current Active and Chronic Problems Cellulitis of trunk (Acute) Cancer of breast, intraductal (Chronic) Bacteremia due to group B Streptococcus (Acute) You will use the following diet at home:: Calorie/Carbohydrate Controlled (specify 1200, 1400, etc) - 1800 nayla. Your food should be the consistency of: Regular Discharge Activity: Return to Normal Activity Weight Bearing Status: Weight bearing as tolerated Call your doctor if you observe: Fever of 101 or Higher, Shortness of breath, Dizziness, Fainting spells, Chest pain, Increased palpitations (irregular heartbeat), Uncontrolled pain Allergies/Adverse Reactions: Allergies shellfish derived Allergy (Mild, Verified 01/19/18 07:35) Hives iodine Allergy (Verified 01/19/18 07:35) Hives liraglutide [From Victoza] Adverse Reaction (Verified 01/19/18 07:35) Nausea, VOMITING IV DYE Allergy (Mild, Uncoded 01/19/18 07:35) Hives Medications to take at Discharge Butalbital/Aspirin/Caffeine [Fiorinal 50-325-40 mg Capsule] 1 tab PO DAILY PRN PRN 03/21/13 Fluoxetine [Prozac] 20 mg PO DAILY 03/21/13 Multivitamins,Therapeutic [Multivitamin] 1 tablet PO QHS 03/21/13 Omeprazole [Prilosec] 40 mg PO DAILY 03/21/13 Acetaminophen [Tylenol] 500 - 1,000 mg PO Q6H PRN PRN 04/18/17 Aspirin/Acetaminophen/Caffeine [Excedrin Migraine Caplet] 1 each PO PRN PRN 04/18/17 Calm Day 1 cap PO DAILY 04/18/17 Ibuprofen 400 mg PO PRN PRN 04/18/17 Metformin HCl 500 mg PO BID 04/18/17 Anastrozole [Arimidex] 1 mg PO DAILY 01/18/18 Calcium 600-Vit D3 400 Tablet 1 capsule PO DAILY 01/19/18 Calcium Magnesium Vitamin D3 1 cap PO DAILY 01/19/18 Lorazepam [Ativan] 0.5 mg PO Q8H PRN PRN 01/19/18 Ondansetron [Zofran] 8 mg PO Q8H PRN PRN 01/19/18 Cephalexin [Keflex] 500 mg PO Q8 #42 capsule 01/22/18 The following prescriptions were given: Cephalexin [Keflex] 500 mg PO Q8 #42 capsule Primary Care Physician: Ruth Jones DO [Primary Care Provider] - Please follow up with your Primary Care Physician in: 1 week. Test Results: Test results from this visit will be discussed in further detail at your follow- up appointment, if applicable.
--- NOTE | 2018-01-22 09:50 | PCM.PN.ID ---
Patient Problems: Active and Suspected Problems Cellulitis of trunk (Acute) Bacteremia due to group B Streptococcus (Acute) Subjective: Much improved abd redness. No fever, no n/v. Mild loose stool, no abd pain. - Physical Exam General: Alert, Cooperative, No apparent distress Lungs: Clear to auscultation, Normal air movement Cardiovascular: Regular rate, Regular Rhythm Abdomen: Soft, Non Tender, Non-Distended Skin: Rash Present - much improved over abd Vital Signs Temp Pulse Resp BP Pulse Ox 98.4 F 67 18 139/63 H 99 01/22/18 08:37 01/22/18 08:37 01/22/18 08:37 01/22/18 08:37 01/22/18 08:37 Oxygen Delivery Method Room Air Weight: 83.007 kg Body Mass Index (BMI) 34.5 Finger Stick Blood Glucose 126 Intake and Output for Last 24 Hours 01/20/18 01/21/18 01/22/18 23:59 23:59 23:59 Intake Total 1310 / 1310 2419 / 2419 1100 / 1100 Output Total 3300 / 3300 2350 / 2350 800 / 800 Balance -1989 / 69 / 69 300 / 300 Microbiology Past 72 Hours 01/20/18 08:35 Blood Culture - Preliminary Blood Culture (Wb) - Right Hand No growth in 48 hours. 01/20/18 08:20 Blood Culture - Preliminary Blood Culture (Wb) - Right Hand No growth in 48 hours. POC Glucose 01/22/18 01/21/18 01/21/18 06:47 21:32 17:15 POC Glucose 108 100 114 H 01/21/18 11:27 POC Glucose 125 H Medical Necessity - Tobacco Use Smoking Status: Current some day smoker - Cigarette smoking Route of nutrition/ use of supplements: [] Nutritional Intake: [] IV Site: [] Mukherjee Catheter: [] - Assessment/Plan Antibiotics: [] Assessment/Plan: [] Active and Suspected Problems Cellulitis of trunk (Acute) GBS bacteremia from abd cellulitis - likely source is skin opening around R mastectomy site, now healed. Low suspicion for residual abscess, so no need for CT scan at this point. Much improved and nearly resolved this AM, no further fever, repeat bcx neg so far. On ceftriaxone, plan on home with keflex 500mg tid for 2 week course. Will follow,I gave her my card to call as needed
--- NOTE | 2018-01-22 10:39 | DS.PCM_ITS ---
Discharge Date and Diagnosis - Problem List Patient Problems: Active and Suspected Problems Cellulitis of trunk (Acute) Bacteremia due to group B Streptococcus (Acute) Date of Admission: 01/19/18 Date of Discharge: 01/22/18 - Primary Discharge Diagnosis Active and Suspected Problems #1 acute/recurrent cellulitis of the anterior abdominal wall and chest/sepsis. #2 Streptococcus agalactiae bacteremia. - Secondary Discharge Diagnosis Chronic Problems Cancer of breast, intraductal (Chronic) Rheumatoid arthritis (Chronic) Obesity (Chronic) History of cigarette smoking unknown (Chronic) Diabetes mellitus type II, controlled (Chronic) Hyperlipidemia (Chronic) Hypertension (Chronic) Hospital Course and Treatment Dr. england, infectious disease. Operations: None Procedures: None Summary of Care Provided: Patient seen and examined on today's discharge and appeared to be stable to be discharged home. Swelling and erythema of the anterior abdominal wall and lower chest significantly improved. She has been afebrile for more than 48 hours. Her vital signs are stable. The patient is a 62 year old F admitted because of skin rash and erythema of the anterior abdominal wall and chest, found to have acute cellulitis of the anterior abdominal wall, chest with sepsis as well as streptococcal bacteremia. 1 month ago before this admission, patient had similar presentation to the ED, was given 1 dose of Rocephin and 10 days of Augmentin as outpatient and it is r esolved. She presented back after 1 month for similar presentation. She had a history of bilateral mastectomy and she had small skin opening around the right mastectomy surgical site which is healed. Patient was treated with IV vancomycin initially. She had blood cultures on the day before admission that revealed Streptococcus agalactiae consistent with bacteremia and likely source is the skin opening around the right mastectomy surgical site. Based on blood cultures, antibiotic adjusted and she was started on IV Rocephin. Infectious disease consulted and I agreed with IV Rocephin. With IV antibiotic therapy, noted erythema and swelling of the anterior abdominal wall and chest significantly improved. Patient remained afebrile for more than 48 hours. Repeat blood culture showed no growth in 48 hours. Patient discharged home in a stable medical condition, discharged on Keflex 500 mg 3 times daily for 2 weeks of treatment, continued on her clinical medications without any changes, recommended follow-up with PCP in 1 week and follow-up with infectious disease if needed. Patient Problems: Active and Suspected Problems Cellulitis of trunk (Acute) Bacteremia due to group B Streptococcus (Acute) - Physical Exam General: Alert, Oriented x3, Cooperative, No apparent distress HEENT: Atraumatic, PERRLA, EOMI, Normocephalic Oral: Moist Mucosa, No Gingival or Mucosal Lesions/ Ulcerations Neck: Supple, No JVD, Negative Carotid Bruits, Trachea Midline, Thyroid Normal Size and Texture Lungs: Clear to auscultation, Normal air movement, No rhonchi, No wheeze, No rales Cardiovascular: Regular rate, Regular Rhythm, Normal S1, Normal S2, PMI Normal Abdomen: Bowel Sounds Present, Soft, Non Tender, Non-Distended, No Hepato- splenomegaly Extremities: No clubbing, No cyanosis, No edema Skin: No breakdown, Rash Present Lymphatic: No Cervical, Supraclavicular, or Inguinal Adenopathy Neurological: Cranial nerves II-XII grossly intact, Neuro grossly intact Psych/Mental Status: Normal Affect, Appropriate Vital Signs Temp Pulse Resp BP Pulse Ox 98.4 F 67 18 139/63 H 99 01/22/18 08:37 01/22/18 08:37 01/22/18 08:37 01/22/18 08:37 01/22/18 08:37 Oxygen Delivery Method Room Air Weight: 183 lb Body Mass Index (BMI) 34.5 Finger Stick Blood Glucose 126 Intake and Output for Last 24 Hours 01/20/18 01/21/18 01/22/18 23:59 23:59 23:59 Intake Total 1310 / 1310 2419 / 2419 1100 / 1100 Output Total 3300 / 3300 2350 / 2350 800 / 800 Balance -1989 / 69 / 69 300 / 300 Microbiology Past 72 Hours 01/20/18 08:35 Blood Culture - Preliminary Blood Culture (Wb) - Right Hand No growth in 48 hours. 01/20/18 08:20 Blood Culture - Preliminary Blood Culture (Wb) - Right Hand No growth in 48 hours. POC Glucose 01/22/18 01/21/18 01/21/18 06:47 21:32 17:15 POC Glucose 108 100 114 H 01/21/18 11:27 POC Glucose 125 H Microbiology 01/20/18 08:35 Blood Culture (Wb) - Right Hand Blood Culture - Preliminary No growth in 48 hours. 01/20/18 08:20 Blood Culture (Wb) - Right Hand Blood Culture - Preliminary No growth in 48 hours. Discharge Activity: Return to Normal Activity Weight Bearing Status: Weight bearing as tolerated Call your doctor if you observe: Fever of 101 or Higher, Shortness of breath, Dizziness, Fainting spells, Chest pain, Increased palpitations (irregular heartbeat), Uncontrolled pain Home Medications: Medications to take at Discharge Butalbital/Aspirin/Caffeine [Fiorinal 50-325-40 mg Capsule] 1 tab PO DAILY PRN PRN 03/21/13 Fluoxetine [Prozac] 20 mg PO DAILY 03/21/13 Multivitamins,Therapeutic [Multivitamin] 1 tablet PO QHS 03/21/13 Omeprazole [Prilosec] 40 mg PO DAILY 03/21/13 Acetaminophen [Tylenol] 500 - 1,000 mg PO Q6H PRN PRN 04/18/17 Aspirin/Acetaminophen/Caffeine [Excedrin Migraine Caplet] 1 each PO PRN PRN 04/18/17 Calm Day 1 cap PO DAILY 04/18/17 Ibuprofen 400 mg PO PRN PRN 04/18/17 Metformin HCl 500 mg PO BID 04/18/17 Anastrozole [Arimidex] 1 mg PO DAILY 01/18/18 Calcium 600-Vit D3 400 Tablet 1 capsule PO DAILY 01/19/18 Calcium Magnesium Vitamin D3 1 cap PO DAILY 01/19/18 Lorazepam [Ativan] 0.5 mg PO Q8H PRN PRN 01/19/18 Ondansetron [Zofran] 8 mg PO Q8H PRN PRN 01/19/18 Cephalexin [Keflex] 500 mg PO Q8 #42 capsule 01/22/18 Following Prescrptions Were Given to Patient: Cephalexin [Keflex] 500 mg PO Q8 #42 capsule Primary Care Physician: Ruth Jones DO [Primary Care Provider] - Please follow up with your Primary Care Physician in: 1 week. Disposition: Home Minutes spent on discharge:: 32 Patient Condition:: Stable Medical Necessity - Tobacco Use Smoking Status: Current some day smoker - Cigarette smoking Meaningful Use Info Meaningful Use Diagnoses (Choose all that apply): None applicable Code Visit Inpatient E&M: 62291 Disch Hosp
--- NOTE | 2018-01-23 15:10 | CASEMGMT ---
MARIO KLINE Discharge Follow-Up Phone Call. ROSE: 12 Strata: 4 Discharge Date: 01-22-18 Adm Dx: Abdominal Wall Cellulitis Call placed to pt and inquired about how she has been feeling since she left the hospital. Pt stated, I'm just tired but overall I'm doing pretty good. Stated, I'm just listening to my body and resting today. Pt stated she has no questions about the discharge instructions, states she picked up her antibiotics and started those today, and states already had an appt with her PCP for the . Pt denies having any questions, concerns, or needs. Instructed her to call CM office if she would have any questions or concerns. Pt thanked MARIO KLINE for calling to check on how she is doing. MARIO KLINE thanked pt for choosing [facility]. Areli MCCURDY RN, CM
== END 2018-01-22 10:39 | disposition home or self-care (01) | DRG 872 ==
LOC: ED 08:19 → MS3 09:29
PROVIDERS: Admitting Provider Internal Medicine; Emergency Provider Emergency Medicine; Family Provider Internal Medicine; PCP Internal Medicine; Visit Provider Hospitalist
DX: A40.1 Sepsis due to streptococcus, group B (principal); L03.313 Cellulitis of chest wall; L03.311 Cellulitis of abdominal wall; E11.9 Type 2 diabetes mellitus without complications; M06.9 Rheumatoid arthritis, unspecified; I10 Essential (primary) hypertension; E78.5 Hyperlipidemia, unspecified; E66.9 Obesity, unspecified; F17.210 Nicotine dependence, cigarettes, uncomplicated; C50.912 Malignant neoplasm of unspecified site of left female breast; Z79.84 Long term (current) use of oral hypoglycemic drugs; Z90.13 Acquired absence of bilateral breasts and nipples; Z68.34 Body mass index [BMI] 34.0-34.9, adult; Z92.21 Personal history of antineoplastic chemotherapy; Z79.811 Long term (current) use of aromatase inhibitors; Z79.899 Other long term (current) drug therapy
CPT/HCPCS: 36415; 80053; 80202; 82962; 83036; 83605; 85025; 85652; 87040; 87641; 99281; 99406; J7030; J7040; J7050; A4216; J0696; J2405

== ENCOUNTER 2018-03-01 10:28 | Inpatient (IN) | payer BC, SELFPAY ==
[2018-01-19 09:57] VITALS: BMI 34.5
[2018-03-01] VITALS (13 sets, daily range): BP systolic 99–160; BP diastolic 51–77; PULSE 94–118; RESP 13–18; TEMP 37.2–39.5; O2SAT 94–100; BMI 34.4; BMI 34.2; BMI 34.3
[2018-03-01 11:32] LABS: Absolute Lymphocyte Count 0.32 X10^3/ul (0.83-4.51); Absolute Neutrophil Count 12.9 X10^3/uL (2.0-7.7); Basophil# 0.02 X10^3/uL; Basophil% 0.1 % (0-1); Eosinophil# 0.02 X10^3/uL; Eosinophils% 0.1 % (0-5); Hematocrit 37.9 % (37-47); Hemoglobin 12.4 g/dl (12.0-15.0); Lymphocyte # 0.32 X10^3/ul (4.0); Lymphocyte % 2.3 % (19-41); Mean Corp Hgb Conc 32.7 g/gl (32-36); Mean Corpuscular Volume 82.6 fL (81-99); Mean Platelet Vol. 8.8 fl (6.2-12.0); Monocyte# 0.56 X10^3/uL; Neutrophil # 12.88 X10^3/uL (2.7-7.7); Neutrophil % 93.3 % (47-70); Platelet Count 206 K/mm3 (150-450); RBC Distribution Width CV 14.4 % (11.6-14.6); RBC Distribution Width SD 42.3 fl (35.1-43.9); Red Blood Count 4.59 M/mm3 (4.2-5.4); White Blood Count 13.8 K/mm3 (4.4-11.0)
[2018-03-01 11:33] LABS: Differential Indicated SCAN CRITERIA MET; POSITIVE COUNT NO; POSITIVE DIFFERENTIAL YES; POSITIVE MORPHOLOGY NO
[2018-03-01 11:41] LABS: Prothrombin Time (Protime)PT. 13.2 SECONDS (11.7-14.9)
[2018-03-01 11:42] LABS: Partial Thromboplast Time 23.5 Seconds (24.1-36.2)
[2018-03-01 11:48] LABS: ALB/GLOB Ratio 1.1 RATIO (0.9-2.4); AST(SGOT) 16 U/L (15-37); Alanine Aminotransfer ALT/SGPT 24 U/L (13-56); Alkaline Phosphatase 90 U/L (45-117); Anion Gap 10 (5-15); BUN 13 mg/dL (7-18); BUN/Creat Ratio 15.9 RATIO (10-20); Calcium,Total 9.1 mg/dL (8.5-10.1); Chloride 102 mmol/L (98-107); Creatinine, Serum 0.82 mg/dL (0.55-1.02); EST Glomerular Filtration Rate 75 mL/min (>60); Est Glom Filt Rate - Afr Amer 91 mL/min (>60); Estimated Creatinine Clearance 53.68 ml/min; Globulin 3.5 g/dL (2.2-4.2); Glucose 157 mg/dL (74-106); Potassium 4.2 mmol/L (3.5-5.1); Protein, Total 7.5 g/dL (6.4-8.2); Sodium Level 140 mmol/L (136-145)
[2018-03-01] MEDS: Ondansetron 4 MG/2 ML Vial IV (11:57)
[2018-03-01] MEDS: Morphine 4 MG/ML Syringe IV ×2 (11:57→17:26)
[2018-03-01] MEDS: 0.9% Normal Saline 1,000 ML 250 ML IV (11:58)
--- NOTE | 2018-03-01 11:58 | NURSING ---
DR AQUILES MARLEY
--- NOTE | 2018-03-01 11:59 | ED.VISSUMM ---
- ER Visit Summary Date of Service: 03/01/18 Chief Complaint: Rash History of Present Illness: The patient is a 62 F with presumed cellulitis. She noted redness and warmth to her abdominal wall today. The patient has had this in December 2017 in January 2018. In December she was treated with Rocephin and then Augmentin. She had negative cultures. In January she had cultures positive for group B strep and was admitted and treated with Rocephin and vancomycin. She was discharged on Keflex which she just finished. He has a history of breast cancer and was treated with a bilateral mastectomy and lymph node surgeries, chemotherapy, and radiation. Currently on arimidex. Allergy to IV dye. Physical Examination: Afebrile vital signs unremarkable except for heart rate of 102. Anterior abdominal wall is erythematous and warm. Otherwise exam unremarkable. Test Results: White count 13.8. Metabolic panel and coags unremarkable. Urinalysis pending. Lactate pending. Cultures pending. Emergency Department Course and Treatment: Patient has abdominal wall cellulitis and criteria for sepsis. She was treated with a fluid bolus, morphine, Zofran, and started on vancomycin. Cultures and lactate are pending. The patient is stable and will benefit from admission for further care. She was discussed with Dr. Marie. Based on her symptoms and exam, I am not sure if she has a focus for this infection. She may benefit from imaging, but she has an allergy to IV contrast dye. She may need MRI or other imaging not emergently. Treatment Plan: As above Disposition: Admission Impression: 1. Abdominal wall cellulitis 2. Sepsis This note was generated with [employer] dictation software. It may contain incorrect words, spelling, and punctuation that were not noted in review of the chart prior to signing ED Disposition - Plan for ED Patient: Chief Complaint: Cellulitis Referrals: Ruth Jones DO [Primary Care Provider] -
--- NOTE | 2018-03-01 12:01 | NURSING ---
MED SURG KITTOE ABD WALL CELLULITIS, SEPSIS
[2018-03-01 12:12] LABS: Lactic Acid 2.1 mmol/L (0.4-2.0)
[2018-03-01] MEDS: Acetaminophen 500 MG Tablet 1000 MG PO (12:12)
--- NOTE | 2018-03-01 12:13 | ED.RN ---
pt hard stick, multiple people tried to obtain blood culture.
--- NOTE | 2018-03-01 12:16 | PCM.HP.STD ---
Problem List (1) Cellulitis of trunk Status: Acute (2) Bacteremia due to group B Streptococcus Status: Chronic (3) Cancer of breast, intraductal Status: Chronic (4) Diabetes mellitus type II, controlled Status: Chronic (5) History of cigarette smoking unknown Status: Chronic (6) Hyperlipidemia Status: Chronic (7) Hypertension Status: Chronic (8) Obesity Status: Chronic (9) Rheumatoid arthritis Status: Chronic (10) Severe sepsis Status: Acute History of Present Illness Date of Admission: 03/01/18 Chief Complaint: Warmth and erythema on anterior trunk The patient is a 62 year old F with history of breast CA status post mastectomy with neoadjuvant chemotherapy currently on anastrozole, history of recurrent streptococcal skin infection who presented with warmth and erythema involving the anterior trunk.. Did notice her symptoms on the morning of her presentation. Patient in addition did experience fever chills as well as palpitations. She had recently completed antibiotic therapy for cellulitis. An assessment of severe sepsis was made treatment initiated per protocol admitted for further inpatient management. Past Medical History Past Medical History (Chronic Problems): Chronic Problems Cancer of breast, intraductal (Chronic) Bacteremia due to group B Streptococcus (Chronic) Rheumatoid arthritis (Chronic) Obesity (Chronic) History of cigarette smoking unknown (Chronic) Diabetes mellitus type II, controlled (Chronic) Hyperlipidemia (Chronic) Hypertension (Chronic) Allergies shellfish derived Allergy (Mild, Verified 03/01/18 10:31) Hives iodine Allergy (Verified 03/01/18 10:31) Hives liraglutide [From Victoza] Adverse Reaction (Verified 03/01/18 10:31) Nausea, VOMITING IV DYE Allergy (Mild, Uncoded 03/01/18 10:31) Hives Home Medications: Ambulatory Orders Medication Instructions Recorded Butalbital/Aspirin/Caffeine 1 tab PO DAILY PRN PRN 03/21/13 [Fiorinal 50-325-40 mg Capsule] Fluoxetine [Prozac] 20 mg PO DAILY 03/21/13 Multivitamins,Therapeutic 1 tablet PO QHS 03/21/13 [Multivitamin] Omeprazole [Prilosec] 40 mg PO DAILY 03/21/13 Acetaminophen [Tylenol] 500 - 1,000 mg PO Q6H PRN PRN 04/18/17 Aspirin/Acetaminophen/Caffeine 1 each PO PRN PRN 04/18/17 [Excedrin Migraine Caplet] Calm Day 1 cap PO DAILY 04/18/17 Ibuprofen 400 mg PO PRN PRN 04/18/17 Metformin HCl 500 mg PO BID 04/18/17 Anastrozole [Arimidex] 1 mg PO DAILY 01/18/18 Calcium 600-Vit D3 400 Tablet 1 capsule PO DAILY 01/19/18 Calcium Magnesium Vitamin D3 1 cap PO DAILY 01/19/18 Lorazepam [Ativan] 0.5 mg PO Q8H PRN PRN 01/19/18 Ondansetron [Zofran] 8 mg PO Q8H PRN PRN 01/19/18 Cephalexin [Keflex] 500 mg PO Q8 #42 capsule 01/22/18 Furosemide [Lasix] 20 mg PO DAILY 03/01/18 traMADol [Ultram (G)] 50 mg PO TID PRN 03/01/18 Surgical History: - - Breast biopsy Heart cath Psychiatric History: No pertinent psych hx 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 Dyspnea Respiratory: Denies: Cough, Shortness of breath at rest, Shortness of breath upon exertion, Sputum production Gastrointestinal: Denies: Abdominal Pain, Hematemesis, Hematochezia, Nausea, Melena, Vomiting Genitourinary: Denies: Dysuria, Frequency, Hematuria, Urgency Musculoskeletal: Denies: Joint Pain, Joint Tenderness Skin: Reports: Rash Neurological: Denies: Focal weakness, Numbness, Tingling Psychiatric: Denies: Homicidal Ideations, Suicidal Ideations Hematologic/ Lymphatic: Denies: Easy Bruising, Easy Bleeding VTE Information - Inpt Only VTE Present on Admission: No VTE Mechan Device Prophylaxis: Knee High MERLYN Hose VTE Pharm Prophylaxis ordered?: Yes Patient Problems: Active and Suspected Problems Severe sepsis (Acute) Objective: GENERAL: cooperative HEENT: Atraumatic; moist oral mucosa EYES; Anicteric, Normal Conjunctiva NECK; supple, normal thyroid, no distended JVD. RESPIRATORY: Diminished to auscultation bilaterally, CARDIOVASCULAR: Regular S1 S2, tachycardic GI: soft, non-tender, normoactive bowel sounds, : No Renal angle tenderness; EXTREMITIES: No edema, no clubbing, no cyanosis. MUSCULOSKELETAL: No Joint Tenderness; no muscle waisting NEURO: Awake; no lateralizing signs. SKIN: Erythematous rash involving the anterior trunk from her nipple line to her groin PSYCH; Normal affect - Physical Exam Vital Signs Temp Pulse Resp BP Pulse Ox 102.9 F H 110 H 16 143/68 H 98 03/01/18 11:30 03/01/18 11:30 03/01/18 11:30 03/01/18 11:30 03/01/18 11:30 Oxygen Flow Rate (L/min) 96 Oxygen Delivery Method Room Air Weight: 82.554 kg Body Mass Index (BMI) 34.4 Finger Stick Blood Glucose 126 Laboratory Tests Past 24 Hrs 03/01/18 03/01/18 03/01/18 11:15 11:15 11:15 WBC 13.8 H RBC 4.59 Hgb 12.4 Hct 37.9 MCV 82.6 MCH 27.0 MCHC 32.7 RDW 14.4 RDW Differential 42.3 Plt Count 206 MPV 8.8 Immature Gran % (Auto) 0.200 Neut % (Auto) 93.3 H Lymph % (Auto) 2.3 L [place] % (Auto) 4.0 Eos % (Auto) 0.1 Baso % (Auto) 0.1 Absolute Neuts (auto) 12.9 H Absolute Lymphs (auto) 0.32 L Total Counted Not Reportable PT 13.2 INR 1.0 APTT 23.5 L Sodium 140 Potassium 4.2 Chloride 102 Carbon Dioxide 28.0 Anion Gap 10 BUN 13 Creatinine 0.82 Estim Creat Clear Calc 53.68 Est GFR (MDRD) Af Amer 91 Est GFR (MDRD) Non-Af 75 BUN/Creatinine Ratio 15.9 Glucose 157 H Lactic Acid Calcium 9.1 Total Bilirubin 0.40 AST 16 ALT 24 Alkaline Phosphatase 90 Total Protein 7.5 Albumin 4.0 Globulin 3.5 Albumin/Globulin Ratio 1.1 03/01/18 11:15 WBC RBC Hgb Hct MCV MCH MCHC RDW RDW Differential Plt Count MPV Immature Gran % (Auto) Neut % (Auto) Lymph % (Auto) [place] % (Auto) Eos % (Auto) Baso % (Auto) Absolute Neuts (auto) Absolute Lymphs (auto) Total Counted PT INR APTT Sodium Potassium Chloride Carbon Dioxide Anion Gap BUN Creatinine Estim Creat Clear Calc Est GFR (MDRD) Af Amer Est GFR (MDRD) Non-Af BUN/Creatinine Ratio Glucose Lactic Acid 2.1 H Calcium Total Bilirubin AST ALT Alkaline Phosphatase Total Protein Albumin Globulin Albumin/Globulin Ratio Assessment/Plan All Active Problems Cellulitis of trunk (Acute) Severe sepsis (Acute) Patient is a 62-year-old lady with 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 An assessment of severe sepsis made admitted to regular nursing floor for further management 1. Severe sepsis secondary to suspected streptococcal anterior abdominal wall cellulitis. Admitted to regular nursing floor the sepsis protocol initiated with aggressive IV fluid resuscitation, broad-spectrum antibiotics with Rocephin and vancomycin, monitoring of response to therapy by following lactate levels. Patient has been seen previously by Dr. Santillan consult was placed to him 2. History of invasive ductal left breast carcinoma status post bilateral mastectom followed by neoadjuvant chemotherapy patient is currently on anastrozole. She is followed by Dr. Pantoja as outpatient 3. Diabetes mellitus type 2: Patient is on metformin held on admission please and Accu-Cheks before meals and at bedtime with sliding scale coverage 4. Hypertension-blood pressure controlled, home medications continued with dose adjustment as needed 5. Dyslipidemia-patient is on statin therapy, continued at home dose 6. Depression with anxiety 7. DVT prophylaxis SC Lovenox CODE STATUS full code Code Visit Inpatient E&M: 68208 Init Hosp L3
--- NOTE | 2018-03-01 12:20 | ED.RN ---
Critical lactic acid of 2.[address] Gutiérrez notified, no new orders given.
--- NOTE | 2018-03-01 12:28 | ED.RN ---
PT HARD STICK, IT WAS DIFFICULT TO OBTAIN SECOND BLOOD CULTURE. CULTURE WAS DRAWN OFF EXISTING IV BY CARMEN MARTIN. ANTIBIOTICS INITIATED. PT TOLERATED WELL.
--- NOTE | 2018-03-01 13:34 | NURSING ---
MED SURG CELLULITIS KITTOE
--- NOTE | 2018-03-01 13:44 | ED.RN ---
PT SATTING 91-92% ON RA. PT PLACED ON 2LNC. NOW 96%. PT TOLERATING WELL.
--- NOTE | 2018-03-01 14:52 | CASEMGMT ---
RN ELIUD Face to Face with patient for initial transition planning/care coordination assessment. RN CM introduced self and role at [facility]. Patient lying in bed, alert and oriented, at bedside. Patient willing to participate in assessment and is able to answer all questions appropriately. Care providers, pharmacy, and demographics verified. Patient wishes to discharge home, denies need for home health at this time. Patient states she has no further needs or concerns at this time. CM to follow for discharge planning needs that may arise. PCP: Karen Specialists: [facility] Pharmacy: [facility] Insurance: [employer] Prescription Benefit: [employer] Living Will/HPOA: None LNOK: Living Arrangements: Patient lives with in 2 story house, independent at home. Transportation: Self/ DME/HHC: Patient has stair lift at home. Denies needs at this time. Disposition Plan: Patient to discharge home with family support and follow-up plans in place. Gloria MCCURDY, RN, CM
[2018-03-01 15:24] LABS: Reflex Lactate? Y
--- NOTE | 2018-03-01 15:32 | PCM.RX.CS ---
Consult Pharmacy has been consulted to manage selected antiobiotic: Vancomycin Type of Consult: New start Suspected Infection: Sepsis, Skin/Soft tissue Prior Doses of Antibiotics Received/Current Regimen: Received 1250mg IV x1 in E.R. at 12:16 Labs: Sodium 140 mmol/L (136-145) 03/01/18 11:15 Potassium 4.2 mmol/L (3.5-5.1) 03/01/18 11:15 Chloride 102 mmol/L (98-107) 03/01/18 11:15 Carbon Dioxide 28.0 mmol/L (21.0-32.0) 03/01/18 11:15 Anion Gap 10 (5-15) 03/01/18 11:15 BUN 13 mg/dL (7-18) 03/01/18 11:15 Creatinine 0.82 mg/dL (0.55-1.02) 03/01/18 11:15 Est GFR (MDRD) Af Amer 91 mL/min (>60) 03/01/18 11:15 Est GFR (MDRD) Non-Af 75 mL/min (>60) 03/01/18 11:15 BUN/Creatinine Ratio 15.9 RATIO (10-20) 03/01/18 11:15 Glucose 157 mg/dL (74-106) H 03/01/18 11:15 Weight used for dosin.3 kg Estimated Creatinine Clearance: 54 ml/min Goal Trough: 10-15 mcg/mL Pharmacy Plan for Drug Dosing: Continue with 1500mg IV q24h, dosed per the [facility] Pharmacist-Managed Vancomycin IV Dosing Protocol chart. A trough will be obtained before the 3rd total dose. Pharmacy Service will continue to monitor and adjust dosing as required. Follow-Up Labs: Trough Vancomycin Labs to be done on [date and time ordered]: 03/03/18 09:30
--- NOTE | 2018-03-01 15:35 | PHA.PHARE_ITS ---
Consult Pharmacy has been consulted to manage selected antiobiotic: Vancomycin Type of Consult: New start Suspected Infection: Sepsis, Skin/Soft tissue Prior Doses of Antibiotics Received/Current Regimen: Received 1250mg IV x1 in E.R. at 12:16 Labs: Sodium 140 mmol/L (136-145) 03/01/18 11:15 Potassium 4.2 mmol/L (3.5-5.1) 03/01/18 11:15 Chloride 102 mmol/L (98-107) 03/01/18 11:15 Carbon Dioxide 28.0 mmol/L (21.0-32.0) 03/01/18 11:15 Anion Gap 10 (5-15) 03/01/18 11:15 BUN 13 mg/dL (7-18) 03/01/18 11:15 Creatinine 0.82 mg/dL (0.55-1.02) 03/01/18 11:15 Est GFR (MDRD) Af Amer 91 mL/min (>60) 03/01/18 11:15 Est GFR (MDRD) Non-Af 75 mL/min (>60) 03/01/18 11:15 BUN/Creatinine Ratio 15.9 RATIO (10-20) 03/01/18 11:15 Glucose 157 mg/dL (74-106) H 03/01/18 11:15 Weight used for dosin.3 kg Estimated Creatinine Clearance: 54 ml/min Goal Trough: 10-15 mcg/mL Pharmacy Plan for Drug Dosing: Continue with 1500mg IV q24h, dosed per the [facility] Pharmacist-Managed Vancomycin IV Dosing Protocol chart. A trough will be obtained before the 3rd total dose. Pharmacy Service will continue to monitor and adjust dosing as required. Follow-Up Labs: Trough Vancomycin Labs to be done on [date and time ordered]: 03/03/18 09:30
[2018-03-01] MEDS: Cefazolin 1 GM/50 ML BAG IV ×2 (15:50→22:39)
[2018-03-01 16:06] LABS: Bedside Glucose 138 mg/dL (70-110)
[2018-03-01 16:24] LABS: Lactic Acid 1.5 mmol/L (0.4-2.0)
[2018-03-01] MEDS: 0.9% Normal Saline 1,000 ML 150 ML IV (17:09)
[2018-03-01] MEDS: Acetaminophen 325 MG Tablet 650 MG PO ×2 (17:10→23:12)
[2018-03-01] MEDS: 0.9% NaCl Peripheral Flush Adult/Peds IV (17:27)
[2018-03-01] MEDS: Ibuprofen 600 MG Tablet PO (22:02)
[2018-03-01] MEDS: Famotidine 20 MG Tablet PO (22:42)
[2018-03-01 23:01] LABS: Bedside Glucose 131 mg/dL (70-110)
[2018-03-02] VITALS (9 sets, daily range): BP systolic 107–134; BP diastolic 58–68; PULSE 71–90; RESP 16–18; TEMP 36.9–38.1; O2SAT 94–100
[2018-03-02] MEDS: 0.9% Normal Saline 1,000 ML 150 ML IV ×4 (00:09→21:52)
[2018-03-02] MEDS: Cefazolin 1 GM/50 ML BAG IV ×3 (06:28→21:43)
[2018-03-02] MEDS: Ibuprofen 600 MG Tablet PO ×2 (06:33→19:56)
[2018-03-02 06:46] LABS: Bedside Glucose 129 mg/dL (70-110)
[2018-03-02 06:58] LABS: Hematocrit 31.1 % (37-47); Hemoglobin 9.8 g/dl (12.0-15.0); Mean Corp Hgb Conc 31.5 g/gl (32-36); Mean Corpuscular Hgb 26.6 pg (27.0-32.0); Mean Corpuscular Volume 84.3 fL (81-99); Platelet Count 145 K/mm3 (150-450); RBC Distribution Width CV 14.8 % (11.6-14.6); RBC Distribution Width SD 43.9 fl (35.1-43.9); Red Blood Count 3.69 M/mm3 (4.2-5.4); Scan Indicated on CBC? Y/N NO; White Blood Count 7.7 K/mm3 (4.4-11.0)
[2018-03-02 07:22] LABS: BUN 9 mg/dL (7-18); Creatinine, Serum 0.59 mg/dL (0.55-1.02); Glucose 129 mg/dL (74-106)
[2018-03-02 07:23] LABS: Anion Gap 6 (5-15); BUN/Creat Ratio 15.3 RATIO (10-20); Calcium,Total 7.7 mg/dL (8.5-10.1); Chloride 109 mmol/L (98-107); EST Glomerular Filtration Rate 110 mL/min (>60); Est Glom Filt Rate - Afr Amer 133 mL/min (>60); Magnesium 1.5 mg/dL (1.6-2.6); Potassium 3.6 mmol/L (3.5-5.1); Sodium Level 140 mmol/L (136-145)
--- NOTE | 2018-03-02 07:58 | PN_ITS ---
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 An assessment of severe sepsis made admitted to regular nursing floor for further management 03/02/2018: Patient seen reports extension of the area of erythema on her trunk. Blood cultures so far positive for gram-positive cocci in chains Objective: GENERAL: cooperative HEENT: Atraumatic; moist oral mucosa EYES; Anicteric, Normal Conjunctiva NECK; supple, normal thyroid, no distended JVD. RESPIRATORY: Diminished to auscultation bilaterally, CARDIOVASCULAR: Regular S1 S2, tachycardic GI: soft, non-tender, normoactive bowel sounds, : No Renal angle tenderness; EXTREMITIES: No edema, no clubbing, no cyanosis. MUSCULOSKELETAL: No Joint Tenderness; no muscle waisting NEURO: Awake; no lateralizing signs. SKIN: Erythematous rash involving the anterior trunk from her nipple line to her groin PSYCH; Normal affect Vitals/I&O's: Vital Signs Temp Pulse Resp BP Pulse Ox 100.6 F H 90 18 134/64 H 95 03/02/18 07:19 03/02/18 07:23 03/02/18 07:19 03/02/18 07:19 03/02/18 07:19 Oxygen Flow Rate (L/min) 2 Oxygen Delivery Method Room Air Weight: 82.3 kg Body Mass Index (BMI) 34.2 Finger Stick Blood Glucose 126 Intake and Output for Last 24 Hours 02/28/18 03/01/18 03/02/18 23:59 23:59 23:59 Intake Total 2869 / 2869 2244 / 2244 Output Total 500 / 500 1700 / 1700 Balance 2369 / 2369 544 / 544 Microbiology Past 72 Hours 03/01/18 11:15 Blood Culture (Wb) - Anticubital Right Blood Culture - Preliminary 03/01/18 12:15 Blood Culture (Wb) - Anticubital Right Blood Culture - Preliminary Laboratory Results 03/01/18 11:15: WBC 13.8 H, RBC 4.59, Hgb 12.4, Hct 37.9, MCV 82.6, MCH 27.0, MCHC 32.7, RDW 14.4, RDW Differential 42.3, Plt Count 206, MPV 8.8, Immature Gran % (Auto) 0.200, Neut % (Auto) 93.3 H, Lymph % (Auto) 2.3 L, [place] % (Auto) 4.0, Eos % (Auto) 0.1, Baso % (Auto) 0.1, Absolute Neuts (auto) 12.9 H, Absolute Lymphs (auto) 0.32 L, Total Counted Not Reportable 03/01/18 11:15: PT 13.2, INR 1.0, APTT 23.5 L 03/01/18 11:15: Sodium 140, Potassium 4.2, Chloride 102, Carbon Dioxide 28.0, Anion Gap 10, BUN 13, Creatinine 0.82, Estim Creat Clear Calc 53.68, Est GFR (MDRD) Af Amer 91, Est GFR (MDRD) Non-Af 75, BUN/Creatinine Ratio 15.9, Glucose 157 H, Calcium 9.1, Total Bilirubin 0.40, AST 16, ALT 24, Alkaline Phosphatase 90, Total Protein 7.5, Albumin 4.0, Globulin 3.5, Albumin/Globulin Ratio 1.1 03/01/18 11:15: Lactic Acid 2.1 H 03/01/18 15:42: Lactic Acid 1.5 03/01/18 16:01: POC Glucose 138 H 03/01/18 22:45: POC Glucose 131 H 03/02/18 06:20: Sodium 140, Potassium 3.6, Chloride 109 H, Carbon Dioxide 25.0, Anion Gap 6, BUN 9, Creatinine 0.59, Estim Creat Clear Calc 74.60, Est GFR (MDRD) Af Amer 133, Est GFR (MDRD) Non-Af 110, BUN/Creatinine Ratio 15.3, Glucose 129 H, Calcium 7.7 L, Magnesium 1.5 L 03/02/18 06:20: WBC 7.7, RBC 3.69 L, Hgb 9.8 L, Hct 31.1 L, MCV 84.3, MCH 26.6 L , MCHC 31.5 L, RDW 14.8 H, RDW Differential 43.9, Plt Count 145 L, MPV 9.0 03/02/18 06:38: POC Glucose 129 H Current Medications Acetaminophen (Tylenol) 650 mg PO Q6H PRN PRN PRN Reason: Mild Pain (scale 0-3)/T>100.7 Last Admin: 03/01/18 23:12 Dose: 650 mg Dextrose (D50w Syringe) 0 gm IV X1 PRN; Protocol PRN Reason: Hypoglycemia Docusate Sodium (Colace) 100 mg PO BID [facility] Last Admin: 03/01/18 22:42 Dose: Not Given Enoxaparin Sodium (Lovenox) 40 mg SC DAILY@1000 SUDARSHAN Famotidine (Pepcid) 20 mg PO BID [facility] Last Admin: 03/01/18 22:42 Dose: 20 mg Glucagon () 1 mg IM .X1 PRN PRN Reason: Hypoglycemia Cefazolin Sodium () 1 gm in 50 mls @ 150 mls/hr IV Q8 [facility] Last Admin: 03/02/18 06:28 Dose: 150 mls/hr Sodium Chloride () 1,000 mls @ 150 mls/hr IV .Q6H40M [facility] Stop: 03/03/18 01:59 Last Admin: 03/02/18 06:27 Dose: 150 mls/hr Vancomycin HCl 1,500 mg/ (Sodium Chloride) 530 mls @ 250 mls/hr IV Q24H [facility] Magnesium Sulfate 2 gm/ (Dextrose) 104 mls @ 52 mls/hr IV X1 ONE Stop: 03/02/18 09:56 Ibuprofen (Motrin) 600 mg PO Q8H PRN PRN PRN Reason: MILD PAIN (1-3/10) Last Admin: 03/02/18 06:33 Dose: 600 mg Insulin Human Lispro (Humalog Kwikpen (Bkc)) 0 unit SQ ACHS [facility]; Protocol Last Admin: 03/02/18 06:56 Dose: Not Given Magnesium Hydroxide (Milk Of Magnesia) 30 ml PO DAILY PRN PRN PRN Reason: Constipation Morphine Sulfate () 2 - 4 mg IV Q3H PRN PRN PRN Reason: Severe Pain (pain scale 6-10) Morphine Sulfate () 2 - 4 mg IV Q3H PRN PRN PRN Reason: Severe Pain (pain scale 6-10) Last Admin: 03/01/18 17:26 Dose: 4 mg Oxycodone HCl (Oxyir) 5 mg PO Q4H PRN PRN PRN Reason: Moderate Pain (pain scale 4-5) Psyllium Hydrophilic Mucilloid (Metamucil) 1 packet PO DAILY PRN PRN PRN Reason: CONSTIPATION Sodium Chloride () 5 - 15 ml IV UD PRN PRN Reason: SALINE FLUSH Last Admin: 03/01/18 17:27 Dose: 10 ml Medical Necessity - Tobacco Use Smoking Status: Never smoker Assessment/Plan All Active Problems Cellulitis of trunk (Acute) Severe sepsis (Acute) Patient is a 62-year-old lady with 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 An assessment of severe sepsis made admitted to regular nursing floor for further management 1. Severe sepsis secondary to suspected streptococcal anterior abdominal wall cellulitis. Admitted to regular nursing floor the sepsis protocol initiated with aggressive IV fluid resuscitation, broad-spectrum antibiotics with Rocephin and vancomycin, monitoring of response to therapy by following lactate levels. Patient has been seen previously by Dr. Santillan consult was placed to him. Cultures so far positive for gram-positive cocci in chains possibly group B strep 2. History of invasive ductal left breast carcinoma status post bilateral mastectomy followed by neoadjuvant chemotherapy patient is currently on anastrozole. She is followed by Dr. Pantoja as outpatient 3. Diabetes mellitus type 2: Patient is on metformin held on admission please and Accu-Cheks before meals and at bedtime with sliding scale coverage 4. Hypertension-blood pressure controlled, home medications continued with dose adjustment as needed 5. Dyslipidemia-patient is on statin therapy, continued at home dose 6. Depression with anxiety 7. DVT prophylaxis SC Lovenox 8. Hypomagnesemia corrected per protocol CODE STATUS full code Code Visit Inpatient E&M: 83653 Subs Hosp L3
[2018-03-02] MEDS: Famotidine 20 MG Tablet PO ×2 (10:22→21:43)
[2018-03-02] MEDS: Enoxaparin 40 MG/0.4 ML Syringe SC (10:22)
[2018-03-02 11:10] LABS: Bedside Glucose 110 mg/dL (70-110)
[2018-03-02] MEDS: FLUoxetine 20 MG Capsule PO (12:22)
[2018-03-02] MEDS: Calcium Carb/Vitamin D 1 TABLET Tablet PO (12:22)
[2018-03-02] MEDS: Acetaminophen 325 MG Tablet 650 MG PO (13:36)
[2018-03-02] MEDS: Anastrozole 1 MG Tablet PO (15:30)
[2018-03-02 16:25] LABS: Bedside Glucose 136 mg/dL (70-110)
[2018-03-02] MEDS: LORazepam 0.5 MG Tablet PO (19:56)
[2018-03-02] MEDS: Morphine 2 MG/ML Syringe IV (21:42)
[2018-03-02] MEDS: Multivitamins,Therapeutic Tablet 1 TABLET PO (21:43)
[2018-03-02] MEDS: 0.9% NaCl Peripheral Flush Adult/Peds IV (21:43)
[2018-03-02] MEDS: Docusate Sodium 100 MG Capsule PO (21:43)
[2018-03-02 22:10] LABS: Bedside Glucose 131 mg/dL (70-110)
[2018-03-03 02:20] VITALS: BP 116/61; PULSE 69; RESP 16; TEMP 36.9; O2SAT 93
--- NOTE | 2018-03-03 05:35 | NURSING ---
Pt called RN to check if she is wheezing. lungs sounds were clear anterior and posterior. instructed pt to use IS. pt urinating decent amount and IVF is done.
[2018-03-03] MEDS: Acetaminophen 325 MG Tablet 650 MG PO ×2 (06:30→20:33)
[2018-03-03] MEDS: Cefazolin 1 GM/50 ML BAG IV ×3 (06:31→21:39)
[2018-03-03] MEDS: 0.9% NaCl Peripheral Flush Adult/Peds IV ×4 (06:31→23:03)
[2018-03-03 06:36] LABS: Hematocrit 32.3 % (37-47); Hemoglobin 10.2 g/dl (12.0-15.0); Mean Corp Hgb Conc 31.6 g/gl (32-36); Mean Corpuscular Hgb 26.7 pg (27.0-32.0); Mean Corpuscular Volume 84.6 fL (81-99); Platelet Count 159 K/mm3 (150-450); RBC Distribution Width CV 14.8 % (11.6-14.6); RBC Distribution Width SD 43.5 fl (35.1-43.9); Red Blood Count 3.82 M/mm3 (4.2-5.4); White Blood Count 4.1 K/mm3 (4.4-11.0)
[2018-03-03 06:39] LABS: Scan Indicated on CBC? Y/N NO
[2018-03-03 06:41] LABS: Bedside Glucose 133 mg/dL (70-110)
[2018-03-03 07:01] LABS: Anion Gap 8 (5-15); BUN 7 mg/dL (7-18); BUN/Creat Ratio 12.3 RATIO (10-20); Calcium,Total 8.2 mg/dL (8.5-10.1); Chloride 113 mmol/L (98-107); Creatinine, Serum 0.57 mg/dL (0.55-1.02); EST Glomerular Filtration Rate 114 mL/min (>60); Est Glom Filt Rate - Afr Amer 138 mL/min (>60); Estimated Creatinine Clearance 77.22 ml/min; Glucose 129 mg/dL (74-106); Potassium 3.9 mmol/L (3.5-5.1); Sodium Level 145 mmol/L (136-145)
[2018-03-03 07:17] VITALS: O2SAT 96
[2018-03-03 08:05] VITALS: BP 134/64; PULSE 60; RESP 18; TEMP 36.6; O2SAT 100
--- NOTE | 2018-03-03 08:34 | ECHOCS_ITS ---
Reason For Study: emboli, + strep bacteria. Procedure This was a 2D Doppler, Color Flow transthoracic echocardiogram. The study was technically difficult. Due to left breast mastectomy,. Contrast injection was performed. Exam performed portable in patient room. Left Ventricle Normal LV size. Left ventricular systolic function is normal. The estimated ejection fraction is 60 %. No evidence for diastolic dysfunction. No regional wall motion abnormalities noted. Right Ventricle Normal RV size. Normal systolic function. Atria Normal left atrium. Normal right atrium. Mitral Valve There is mild mitral annular calcification. Tricuspid Valve Normal tricuspid valve. Aortic Valve The aortic valve is not well visualized. Pulmonic Valve The pulmonic valve is not well visualized. Great Vessels Normal aortic root. The pulmonary artery is normal size. Normal inferior vena cava. Pericardium/Pleural No pericardial effusion. Medication Diluted definity 3.0ml given slow IV push to enhance endocardial definition. MMode/2D Measurements & Calculations LVIDd: 4.4 cm IVSd: 1.0 cm Ao root diam: 2.9 cm LVIDs: 3.1 cm LVPWd: 1.2 cm RVDd: 3.9 cm FS: 28.0 % LAV(MOD-bp): 62.8 ml LA A4 area: 20.1 cm2 LA dimension(2D): 4.2 cm LAV(MOD-bp) Indexed: 34.7 ml/m2 LAV(MOD-sp2): 63.8 ml LAV(MOD-sp4): 62.2 ml RA A4 area: 15.6 cm2 Doppler Measurements & Calculations MV E max feliciano: 117.7 cm/sec Lat Peak E' Feliciano: 13.3 cm/sec Med Peak E' Feliciano: 9.4 cm/sec MV A max feliciano: 92.8 cm/sec E/E' lat: 8.9 E/E' med: 12.5 MV E/A: 1.3 Ao V2 max: 127.2 cm/sec LV V1 max: 99.8 cm/sec PA V2 max: 85.2 cm/sec Ao max P.5 mmHg LV V1 max P.0 mmHg TR max feliciano: 277.4 cm/sec TR max P.8 mmHg Interpretation Summary Normal LV size. Left ventricular systolic function is normal. The estimated ejection fraction is 60 %. No evidence for diastolic dysfunction. There is no evidence of a mass or vegetation. This does not rule out endocarditis. Ordering Physician: Watson Marie Referring Physician: Ruth Jones Performed By: Alexandrea Mtz, GAUDENCIOCS, RVT
--- NOTE | 2018-03-03 08:36 | PCM.PN.HOSP ---
Patient Problems: Active and Suspected Problems Severe sepsis (Acute) Subjective: Patient seen still has extensive erythematous rash on her trunk which appears to be spreading. Blood cultures came back positive for Streptococcus agalactiae. Ordered TTE, CT of the abdomen pelvis and chest (CT request from patient) with contrast to look for occult source. Patient has allergy to shellfish and did discuss with her prior to requesting CT of the abdomen pelvis and chest Objective: GENERAL: cooperative HEENT: Atraumatic; moist oral mucosa EYES; Anicteric, Normal Conjunctiva NECK; supple, normal thyroid, no distended JVD. RESPIRATORY: Diminished to auscultation bilaterally, CARDIOVASCULAR: Regular S1 S2, tachycardic GI: soft, non-tender, normoactive bowel sounds, : No Renal angle tenderness; EXTREMITIES: No edema, no clubbing, no cyanosis. MUSCULOSKELETAL: No Joint Tenderness; no muscle waisting NEURO: Awake; no lateralizing signs. SKIN: Erythematous rash involving the anterior trunk from her nipple line to her groin PSYCH; Normal affect Vitals/I&O's: Vital Signs Temp Pulse Resp BP Pulse Ox 98.5 F 69 16 116/61 96 03/03/18 02:20 03/03/18 02:20 03/03/18 02:20 03/03/18 02:20 03/03/18 07:17 Oxygen Flow Rate (L/min) 2 Oxygen Delivery Method Room Air Weight: 82.3 kg Body Mass Index (BMI) 34.2 Finger Stick Blood Glucose 126 Intake and Output for Last 24 Hours 03/01/18 03/02/18 03/03/18 23:59 23:59 23:59 Intake Total 2869 / 2869 6613 / 6613 1267 / 1267 Output Total 500 / 500 4225 / 4225 700 / 700 Balance 2369 / 2369 2388 / 2388 567 / 567 Microbiology Past 72 Hours 03/01/18 11:15 Blood Culture (Wb) - Anticubital Right Bacteria Detection (PCR) - Preliminary Streptococcus agalactiae (B) 03/01/18 11:15 Blood Culture (Wb) - Anticubital Right Blood Culture - Preliminary Streptococcus agalactiae (B) 03/01/18 12:15 Blood Culture (Wb) - Anticubital Right Blood Culture - Preliminary Laboratory Results 03/02/18 11:02: POC Glucose 110 03/02/18 16:18: POC Glucose 136 H 03/02/18 21:37: POC Glucose 131 H 03/03/18 05:40: Sodium 145, Potassium 3.9, Chloride 113 H, Carbon Dioxide 24.0, Anion Gap 8, BUN 7, Creatinine 0.57, Estim Creat Clear Calc 77.22, Est GFR (MDRD) Af Amer 138, Est GFR (MDRD) Non-Af 114, BUN/Creatinine Ratio 12.3, Glucose 129 H, Calcium 8.2 L 03/03/18 05:40: WBC 4.1 L, RBC 3.82 L, Hgb 10.2 L, Hct 32.3 L, MCV 84.6, MCH 26.7 L, MCHC 31.6 L, RDW 14.8 H, RDW Differential 43.5, Plt Count 159, MPV 9.0 03/03/18 06:28: POC Glucose 133 H Current Medications Acetaminophen (Tylenol) 650 mg PO Q6H PRN PRN PRN Reason: Mild Pain (scale 0-3)/T>100.7 Last Admin: 03/03/18 06:30 Dose: 650 mg Anastrozole (Arimidex) 1 mg PO DAILY [facility] Last Admin: 03/02/18 15:30 Dose: 1 mg Calcium/Vitamin D (Os-Huy 500mg + D) 1 tablet PO DAILY@1200 [facility] Last Admin: 03/02/18 12:22 Dose: 1 tablet Dextrose (D50w Syringe) 0 gm IV X1 PRN; Protocol PRN Reason: Hypoglycemia Docusate Sodium (Colace) 100 mg PO BID [facility] Last Admin: 03/02/18 21:43 Dose: 100 mg Enoxaparin Sodium (Lovenox) 40 mg SC DAILY@1000 [facility] Last Admin: 03/02/18 10:22 Dose: 40 mg Famotidine (Pepcid) 20 mg PO BID [facility] Last Admin: 03/02/18 21:43 Dose: 20 mg Fluoxetine HCl (Prozac) 20 mg PO DAILY [facility] Last Admin: 03/02/18 12:22 Dose: 20 mg Furosemide (Lasix) 20 mg PO DAILY PRN PRN PRN Reason: edema Glucagon () 1 mg IM .X1 PRN PRN Reason: Hypoglycemia Cefazolin Sodium () 1 gm in 50 mls @ 150 mls/hr IV Q8 [facility] Last Admin: 03/03/18 06:31 Dose: 150 mls/hr Vancomycin HCl 1,500 mg/ (Sodium Chloride) 530 mls @ 250 mls/hr IV Q24H [facility] Last Admin: 03/02/18 10:21 Dose: 250 mls/hr Ibuprofen (Motrin) 600 mg PO Q8H PRN PRN PRN Reason: MILD PAIN (1-3/10) Last Admin: 03/02/18 19:56 Dose: 600 mg Insulin Human Lispro (Humalog Kwikpen (Bkc)) 0 unit SQ ACHS [facility]; Protocol Last Admin: 03/03/18 06:42 Dose: Not Given Lorazepam (Ativan) 0.5 mg PO QHS PRN PRN PRN Reason: INSOMNIA Last Admin: 03/02/18 19:56 Dose: 0.5 mg Lorazepam (Ativan) 0.5 mg PO Q8H PRN PRN PRN Reason: ANXIETY Magnesium Hydroxide (Milk Of Magnesia) 30 ml PO DAILY PRN PRN PRN Reason: Constipation Morphine Sulfate () 2 - 4 mg IV Q3H PRN PRN PRN Reason: Severe Pain (pain scale 6-10) Last Admin: 03/02/18 21:42 Dose: 2 mg Morphine Sulfate () 2 - 4 mg IV Q3H PRN PRN PRN Reason: Severe Pain (pain scale 6-10) Last Admin: 03/01/18 17:26 Dose: 4 mg Multivitamins (Multivitamin) 1 tablet PO QHS [facility] Last Admin: 03/02/18 21:43 Dose: 1 tablet Ondansetron HCl (Zofran) 8 mg PO Q8H PRN PRN PRN Reason: NAUSEA Oxycodone HCl (Oxyir) 5 mg PO Q4H PRN PRN PRN Reason: Moderate Pain (pain scale 4-5) Pantoprazole Sodium (Protonix) 40 mg PO DAILY [facility] Potassium Chloride (K-Dur) 10 meq PO DAILY PRN PRN PRN Reason: with lasix- edema Psyllium Hydrophilic Mucilloid (Metamucil) 1 packet PO DAILY PRN PRN PRN Reason: CONSTIPATION Sodium Chloride () 5 - 15 ml IV UD PRN PRN Reason: SALINE FLUSH Last Admin: 03/03/18 06:31 Dose: 10 ml Tramadol HCl (Ultram) 50 mg PO TID PRN PRN PRN Reason: PAIN Medical Necessity - Tobacco Use Smoking Status: Never smoker Assessment/Plan All Active Problems Cellulitis of trunk (Acute) Severe sepsis (Acute) Patient is a 62-year-old lady with 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 An assessment of severe sepsis made admitted to regular nursing floor for further management 1. Severe sepsis secondary to suspected streptococcal anterior abdominal wall cellulitis. Admitted to regular nursing floor the sepsis protocol initiated with aggressive IV fluid resuscitation, broad-spectrum antibiotics with Rocephin and vancomycin, monitoring of response to therapy by following lactate levels. Patient has been seen previously by Dr. Santillan consult was placed to him. Blood cultures came back positive for Streptococcus agalactiae patient remains on vancomycin and cefazolin pending final culture result. Did request for transthoracic echo, CT of the abdomen pelvis and chest looking for an occult source of patient recurrent infections 2. History of invasive ductal left breast carcinoma status post bilateral mastectomy followed by neoadjuvant chemotherapy patient is currently on anastrozole. She is followed by Dr. Pantoja as outpatient 3. Diabetes mellitus type 2: Patient is on metformin held on admission please and Accu-Cheks before meals and at bedtime with sliding scale coverage 4. Hypertension-blood pressure controlled, home medications continued with dose adjustment as needed 5. Dyslipidemia-patient is on statin therapy, continued at home dose 6. Depression with anxiety 7. DVT prophylaxis SC Lovenox 8. Hypomagnesemia corrected per protocol CODE STATUS full code Code Visit Inpatient E&M: 61302 Subs Hosp L2
--- NOTE | 2018-03-03 08:55 | CT_ITS ---
STUDY: CT CHEST WITH CONTRAST REASON FOR EXAM: Female, 62 years old. Recurrent cellulitis of the abdomen, sepsis RADIATION DOSAGE (If Supplied By Facility): CTDIvol = ( 24.45 ) mGy, DLP = ( 2111.94 ) mGycm TECHNIQUE: Transaxial imaging was performed following intravenous administration of 100 ml of Isovue 300 contrast material. Multiplanar coronal and sagittal images were reformatted. Individualized dose optimization techniques were used for this CT. COMPARISON: None. FINDINGS: Bilateral mastectomies with mildly asymmetric soft tissue density of the inferior left breast extending into the lower chest. However, no focal fluid collection. No airspace consolidation or cavitating process. Minimal reticulation and groundglass opacity of the anterior left upper lobe may relate to prior radiation therapy. Triangular subpleural nodule on axial image 55 measures 3.7 mm, likely postinflammatory or related to prior radiation therapy. There are trace bilateral pleural effusions with mild degree of atelectasis in both lung bases. Normal heart and pericardium. There are calcifications of the coronary arteries. Normal mediastinum. Normal hilar regions. Normal enhanced pulmonary arteries. Normal aorta arch and descending thoracic aorta. There are multi-level degenerative changes of the thoracic spine. Just anterior to the left subscapularis muscle, there is a well-defined low-density fluid collection measuring 2.5 x 1.8 cm without significant adjacent stranding. No wall enhancement or air fluid levels are seen. Upper abdomen described on abdomen/pelvis CT report. CT/Chest WITH Contrast IMPRESSION: 1. Trace bilateral pleural effusions. 2. No airspace consolidation or cavitating process. 3. Bilateral mastectomy. Mildly asymmetric soft tissue density of the inferior left breast/chest but no related focal fluid collection. 4. Probable radiation changes of the anterior left upper lobe. 5. 2.5 x 1.8 cm deep left axillary (adjacent to the left subscapularis muscle) without wall enhancement or air fluid level. Likely represents sequela of prior axillary surgery (such as seroma). Unlikely to be infectious in nature. Electronically Signed: Estuardo Rosas MD at 12:14 EST , Service support ,
[2018-03-03] MEDS: Enoxaparin 40 MG/0.4 ML Syringe SC (09:37)
[2018-03-03] MEDS: Pantoprazole Sodium 40 MG Tablet PO (09:37)
[2018-03-03] MEDS: Anastrozole 1 MG Tablet PO (09:37)
[2018-03-03] MEDS: FLUoxetine 20 MG Capsule PO (09:38)
[2018-03-03 10:16] LABS: Vancomycin, Trough Level 4.7 ug/mL (5.0-15.0)
[2018-03-03] MEDS: DiphenhydrAMINE 50 MG/ML Syringe IV (10:26)
--- NOTE | 2018-03-03 11:30 | CT_ITS ---
STUDY: CT ABDOMEN AND PELVIS WITH CONTRAST REASON FOR EXAM: Female, 62 years old. Recurrent cellulitis in the abdomen, sepsis RADIATION DOSAGE (If Supplied By Facility): CTDIvol = ( 24.45 ) mGy, DLP = ( 2111.94 ) mGycm TECHNIQUE: Transaxial images were obtained from the dome of the diaphragm to the symphysis pubis with oral contrast. 100 ml of Isovue 300 contrast was administered. Sagittal and coronal images were reconstructed. Individualized dose optimization techniques were used for this CT. COMPARISON: None. FINDINGS: Lung bases described on chest CT report. Normal liver. Normal gallbladder and extrahepatic biliary system. Normal spleen. Normal pancreas. Normal bilateral adrenal glands. There are 2 calcifications of the upper right kidney measuring 4 mm each. No hydronephrosis. 2 mm calculus of the mid left kidney is also demonstrated. Normal visualized stomach. Normal small intestine. Normal colon. The appendix is visualized and appears normal. There is diffuse atherosclerotic calcification of the abdominal aorta, without a demonstrated aneurysm. Normal inferior vena cava. Normal retroperitoneum. Normal urinary bladder. Tubal ligation surgical clips are present. Mild nonspecific edema of the body wall without focal fluid collection or significant subcutaneous emphysema. Small locules of air of the anterior (bilateral) abdominal wall felt to be due to injection sites. Grade 1 spondylolisthesis of L4-L5 due to facet arthropathy. Multilevel degenerative changes of the spine. CT/Abdomen/Pelvis WITH Contrast IMPRESSION: 1. No focal fluid collection. Nonspecific abdominal wall induration could relate to patient's history of cellulitis. 2. No intra-abdominal acute inflammatory or infectious process. 3. Atherosclerosis. 4. Degenerative changes of the lumbar spine. 5. Bilateral nephrolithiasis, nonobstructing. Electronically Signed: Estuardo Rosas MD at 12:09 EST , Service support ,
[2018-03-03] MEDS: Calcium Carb/Vitamin D 1 TABLET Tablet PO (12:11)
[2018-03-03 12:15] LABS: Bedside Glucose 126 mg/dL (70-110)
[2018-03-03] MEDS: Ibuprofen 600 MG Tablet PO (13:34)
[2018-03-03 14:25] VITALS: BP 142/55; PULSE 64; RESP 14; TEMP 37.4; O2SAT 97
--- NOTE | 2018-03-03 15:54 | PCM.RX.CS ---
Consult Pharmacy has been consulted to manage selected antiobiotic: Vancomycin Type of Consult: Follow-up Suspected Infection: Sepsis Prior Doses of Antibiotics Received/Current Regimen: Vancomycin 1250mg IV x1 dose on 03/01, and 1500mg IV x1 dose at 1021 on 03/02. Labs: Sodium 145 mmol/L (136-145) 03/03/18 05:40 Potassium 3.9 mmol/L (3.5-5.1) 03/03/18 05:40 Chloride 113 mmol/L (98-107) H 03/03/18 05:40 Carbon Dioxide 24.0 mmol/L (21.0-32.0) 03/03/18 05:40 Anion Gap 8 (5-15) 03/03/18 05:40 BUN 7 mg/dL (7-18) 03/03/18 05:40 Creatinine 0.57 mg/dL (0.55-1.02) 03/03/18 05:40 Est GFR (MDRD) Af Amer 138 mL/min (>60) 03/03/18 05:40 Est GFR (MDRD) Non-Af 114 mL/min (>60) 03/03/18 05:40 BUN/Creatinine Ratio 12.3 RATIO (10-20) 03/03/18 05:40 Glucose 129 mg/dL (74-106) H 03/03/18 05:40 Vancomycin Trough 4.7 ug/mL (5.0-15.0) L 03/03/18 09:05 Microbiology: Microbiology 03/01/18 12:15 Blood Culture (Wb) - Anticubital Right Blood Culture - Preliminary Streptococcus agalactiae (B) 03/01/18 11:15 Blood Culture (Wb) - Anticubital Right Bacteria Detection (PCR) - Final Streptococcus agalactiae (B) 03/01/18 11:15 Blood Culture (Wb) - Anticubital Right Blood Culture - Final Streptococcus agalactiae (B) Weight used for dosin.3 kg Estimated Creatinine Clearance: 74.6ml/min Goal Trough: 10-15 mcg/mL Pharmacy Plan for Drug Dosing: Pt's SrCr and CrCl both improved. Her trough level was 4.7 on 03/03/18. Recommend changing dose of Vancomycin to 1000mg IV q12h and checking a trough before the 4th dose on 03/05/18 at 0930. Dose calculated on clinical pharmacology calculator. Est trough of 14. Pharmacy Service will continue to monitor and adjust dosing as required. Follow-Up Labs: Trough Vancomycin - trough Labs to be done on [date and time ordered]: trough level 03/05/18 at 0930
--- NOTE | 2018-03-03 15:58 | PHA.PHARE_ITS ---
Addendum entered and electronically signed by Jayce Daniels [facility] 03/03/18 15:59: Original Note: Consult Pharmacy has been consulted to manage selected antiobiotic: Vancomycin Type of Consult: Follow-up Suspected Infection: Sepsis Prior Doses of Antibiotics Received/Current Regimen: Vancomycin 1250mg IV x1 dose on 03/01, and 1500mg IV x1 dose at 1021 on 03/02. Labs: Sodium 145 mmol/L (136-145) 03/03/18 05:40 Potassium 3.9 mmol/L (3.5-5.1) 03/03/18 05:40 Chloride 113 mmol/L (98-107) H 03/03/18 05:40 Carbon Dioxide 24.0 mmol/L (21.0-32.0) 03/03/18 05:40 Anion Gap 8 (5-15) 03/03/18 05:40 BUN 7 mg/dL (7-18) 03/03/18 05:40 Creatinine 0.57 mg/dL (0.55-1.02) 03/03/18 05:40 Est GFR (MDRD) Af Amer 138 mL/min (>60) 03/03/18 05:40 Est GFR (MDRD) Non-Af 114 mL/min (>60) 03/03/18 05:40 BUN/Creatinine Ratio 12.3 RATIO (10-20) 03/03/18 05:40 Glucose 129 mg/dL (74-106) H 03/03/18 05:40 Vancomycin Trough 4.7 ug/mL (5.0-15.0) L 03/03/18 09:05 Microbiology: Microbiology 03/01/18 12:15 Blood Culture (Wb) - Anticubital Right Blood Culture - Prel iminary Streptococcus agalactiae (B) 03/01/18 11:15 Blood Culture (Wb) - Anticubital Right Bacteria Detection (PCR) - Final Streptococcus agalactiae (B) 03/01/18 11:15 Blood Culture (Wb) - Anticubital Right Blood Culture - Final Streptococcus agalactiae (B) Weight used for dosin.3 kg Estimated Creatinine Clearance: 74.6ml/min Goal Trough: 10-15 mcg/mL Pharmacy Plan for Drug Dosing: Pt's SrCr and CrCl both improved. Her trough level was 4.7 on 03/03/18. Recommend changing dose of Vancomycin to 1000mg IV q12h and checking a trough before the 4th dose on 03/05/18 at 0930. Dose calculated on clinical pharmacology calculator. Est trough of 14. Pharmacy Service will continue to monitor and adjust dosing as required. Follow-Up Labs: Trough Vancomycin - trough Labs to be done on [date and time ordered]: trough level 03/05/18 at 0930
[2018-03-03] MEDS: Insulin Lispro 100 UNIT/ML INSULN.PEN SQ ×2 (16:40→22:53)
[2018-03-03 16:45] LABS: Bedside Glucose 231 mg/dL (70-110)
[2018-03-03 20:21] VITALS: BP 144/67; PULSE 65; RESP 16; TEMP 36.8; O2SAT 99
--- NOTE | 2018-03-03 21:33 | NURSING ---
Per report antecub site was leaking and was a little tender for pt. I tried to restart her x 1 which was unsuccessful. You can only use rt arm. Antecub site looked fine so I redressed it and repositioned tubing, and pt thought it felt better. No leakage at site. Will continue to monitor. Xochitl MARTIN aware.
[2018-03-03] MEDS: Multivitamins,Therapeutic Tablet 1 TABLET PO (21:41)
[2018-03-03] MEDS: Docusate Sodium 100 MG Capsule PO (21:41)
[2018-03-03] MEDS: Morphine 2 MG/ML Syringe IV (22:54)
[2018-03-03] MEDS: LORazepam 0.5 MG Tablet PO (22:55)
[2018-03-03] MEDS: Vancomycin IV 1,000 MG/200 ML BAG 200 MG IV (22:55)
[2018-03-03 23:16] LABS: Bedside Glucose 191 mg/dL (70-110)
[2018-03-04 02:20] VITALS: BP 138/67; PULSE 68; RESP 16; TEMP 36.6; O2SAT 98
[2018-03-04] MEDS: Cefazolin 1 GM/50 ML BAG IV ×3 (06:13→21:20)
[2018-03-04] MEDS: 0.9% NaCl IVPB Med Flush (250 mL) 15 ML IV (06:15)
[2018-03-04 06:26] LABS: Bedside Glucose 143 mg/dL (70-110)
[2018-03-04 06:26] LABS: Anion Gap 7 (5-15); BUN 7 mg/dL (7-18); BUN/Creat Ratio 12.5 RATIO (10-20); Calcium,Total 8.1 mg/dL (8.5-10.1); Chloride 111 mmol/L (98-107); Creatinine, Serum 0.56 mg/dL (0.55-1.02); EST Glomerular Filtration Rate 116 mL/min (>60); Est Glom Filt Rate - Afr Amer 140 mL/min (>60); Glucose 156 mg/dL (74-106); Potassium 3.9 mmol/L (3.5-5.1); Sodium Level 145 mmol/L (136-145)
[2018-03-04 08:10] VITALS: BP 147/64; PULSE 66; RESP 16; TEMP 36.8; O2SAT 100
[2018-03-04] MEDS: Vancomycin IV 1,000 MG/200 ML BAG 200 MG IV (10:13)
[2018-03-04] MEDS: Pantoprazole Sodium 40 MG Tablet PO (10:13)
--- NOTE | 2018-03-04 10:13 | PCM.PN.HOSP ---
Patient Problems: Active and Suspected Problems Severe sepsis (Acute) Subjective: Feels great up eating breakfast. States that her cellulitis is much improved than admission. Vitals/I&O's: Vital Signs Temp Pulse Resp BP Pulse Ox 98.3 F 66 16 147/64 H 100 03/04/18 08:10 03/04/18 08:10 03/04/18 08:10 03/04/18 08:10 03/04/18 08:10 Oxygen Flow Rate (L/min) 2 Oxygen Delivery Method Room Air Weight: 181 lb 7.047 oz Body Mass Index (BMI) 34.2 Finger Stick Blood Glucose 126 Intake and Output for Last 24 Hours 03/02/18 03/03/18 03/04/18 23:59 23:59 23:59 Intake Total 6613 / 6613 3356 / 3356 842 / 842 Output Total 4225 / 4225 3250 / 3250 1400 / 1400 Balance 2388 / 2388 106 / 106 -558 / -558 General: Alert, Oriented x3, Cooperative, No apparent distress HEENT: Atraumatic, EOMI, Normocephalic Oral: Moist Mucosa Neck: Supple, No JVD, Trachea Midline Lungs: Clear to auscultation, Normal air movement, No rhonchi, No wheeze, No rales Cardiovascular: Regular rate, Regular Rhythm, Normal S1, Normal S2, No murmurs Abdomen: Soft, Non Tender, Non-Distended, No Hepato-splenomegaly Extremities: No edema, Capillary Refill Less than 3 Seconds Skin: - - Extensive area of erythema which is much improved on her anterior chest expanding up on the left side as well as her abdomen. Neurological: Neuro grossly intact, Sensory exam intact to light touch and pain Psych/Mental Status: Normal Affect, Appropriate Microbiology Past 72 Hours 03/01/18 12:15 Blood Culture (Wb) - Anticubital Right Blood Culture - Final Streptococcus agalactiae (B) 03/01/18 11:15 Blood Culture (Wb) - Anticubital Right Bacteria Detection (PCR) - Final Streptococcus agalactiae (B) 03/01/18 11:15 Blood Culture (Wb) - Anticubital Right Blood Culture - Final Streptococcus agalactiae (B) Laboratory Results 03/03/18 09:05: Vancomycin Trough 4.7 L 03/03/18 12:09: POC Glucose 126 H 03/03/18 16:39: POC Glucose 231 H 03/03/18 22:52: POC Glucose 191 H 03/04/18 05:30: Sodium 145, Potassium 3.9, Chloride 111 H, Carbon Dioxide 27.0, Anion Gap 7, BUN 7, Creatinine 0.56, Estim Creat Clear Calc 78.60, Est GFR (MDRD) Af Amer 140, Est GFR (MDRD) Non-Af 116, BUN/Creatinine Ratio 12.5, Glucose 156 H, Calcium 8.1 L 03/04/18 06:12: POC Glucose 143 H Current Medications Acetaminophen (Tylenol) 650 mg PO Q6H PRN PRN PRN Reason: Mild Pain (scale 0-3)/T>100.7 Last Admin: 03/03/18 20:33 Dose: 650 mg Anastrozole (Arimidex) 1 mg PO DAILY [facility] Last Admin: 03/03/18 09:37 Dose: 1 mg Calcium/Vitamin D (Os-Huy 500mg + D) 1 tablet PO DAILY@1200 [facility] Last Admin: 03/03/18 12:11 Dose: 1 tablet Dextrose (D50w Syringe) 0 gm IV X1 PRN; Protocol PRN Reason: Hypoglycemia Docusate Sodium (Colace) 100 mg PO BID [facility] Last Admin: 03/03/18 21:41 Dose: 100 mg Enoxaparin Sodium (Lovenox) 40 mg SC DAILY@1000 [facility] Last Admin: 03/03/18 09:37 Dose: 40 mg Fluoxetine HCl (Prozac) 20 mg PO DAILY [facility] Last Admin: 03/03/18 09:38 Dose: 20 mg Furosemide (Lasix) 20 mg PO DAILY PRN PRN PRN Reason: edema Glucagon () 1 mg IM .X1 PRN PRN Reason: Hypoglycemia Cefazolin Sodium () 1 gm in 50 mls @ 150 mls/hr IV Q8 [facility] Last Admin: 03/04/18 06:13 Dose: 150 mls/hr Sodium Chloride () 250 mls @ 15 mls/hr IV .[id number] PRN PRN Reason: SALINE FLUSH Last Admin: 03/04/18 06:15 Dose: 15 mls/hr Ibuprofen (Motrin) 600 mg PO Q8H PRN PRN PRN Reason: MILD PAIN (1-3/10) Last Admin: 03/03/18 13:34 Dose: 600 mg Insulin Human Lispro (Humalog Kwikpen (Bkc)) 0 unit SQ ACHS [facility]; Protocol Last Admin: 03/04/18 06:12 Dose: Not Given Lorazepam (Ativan) 0.5 mg PO QHS PRN PRN PRN Reason: INSOMNIA Last Admin: 03/03/18 22:55 Dose: 0.5 mg Lorazepam (Ativan) 0.5 mg PO Q8H PRN PRN PRN Reason: ANXIETY Magnesium Hydroxide (Milk Of Magnesia) 30 ml PO DAILY PRN PRN PRN Reason: Constipation Morphine Sulfate () 2 - 4 mg IV Q3H PRN PRN PRN Reason: Severe Pain (pain scale 6-10) Last Admin: 03/03/18 22:54 Dose: 2 mg Morphine Sulfate () 2 - 4 mg IV Q3H PRN PRN PRN Reason: Severe Pain (pain scale 6-10) Last Admin: 03/01/18 17:26 Dose: 4 mg Multivitamins (Multivitamin) 1 tablet PO QHS [facility] Last Admin: 03/03/18 21:41 Dose: 1 tablet Ondansetron HCl (Zofran) 8 mg PO Q8H PRN PRN PRN Reason: NAUSEA Oxycodone HCl (Oxyir) 5 mg PO Q4H PRN PRN PRN Reason: Moderate Pain (pain scale 4-5) Pantoprazole Sodium (Protonix) 40 mg PO DAILY [facility] Last Admin: 03/03/18 09:37 Dose: 40 mg Potassium Chloride (K-Dur) 10 meq PO DAILY PRN PRN PRN Reason: with lasix- edema Psyllium Hydrophilic Mucilloid (Metamucil) 1 packet PO DAILY PRN PRN PRN Reason: CONSTIPATION Sodium Chloride () 5 - 15 ml IV UD PRN PRN Reason: SALINE FLUSH Last Admin: 03/03/18 23:03 Dose: 10 ml Tramadol HCl (Ultram) 50 mg PO TID PRN PRN PRN Reason: PAIN Medical Necessity - Tobacco Use Smoking Status: Never smoker Assessment/Plan All Active Problems Cellulitis of trunk (Acute) Severe sepsis (Acute) 1. Severe sepsis secondary to streptococcal anterior abdominal wall cellulitis/streptococcal bacteremia -This is her third strep cellulitis -Last time was over a month ago when she was treated with 2 weeks of p.o. Keflex -We will obtain an echo and consult infectious disease for management -Need to obtain a RIC to fully rule out endocarditis -CT chest abdomen and pelvis were negative for source -We will continue with Ancef IV 2. History of invasive ductal left breast carcinoma -That is post bilateral mastectomy axillary dissection underwent chemoradiation -underwent chemoradiation and is now on Arimidex 3. DM 2 -Hold p.o. metformin -Continue with SSI 4. Hypertension/hyperlipidemia -Stable -Continue with home blood pressure medications and statin 5. Anxiety/depression -Stable -Continue with Ativan and Prozac 6. GERD -Stable -Continue with PPI DVT: Lovenox Code Visit Inpatient E&M: 13920 Subs Hosp L2
[2018-03-04] MEDS: FLUoxetine 20 MG Capsule PO (10:14)
[2018-03-04] MEDS: Anastrozole 1 MG Tablet PO (10:14)
[2018-03-04] MEDS: Calcium Carb/Vitamin D 1 TABLET Tablet PO (10:14)
[2018-03-04] MEDS: Enoxaparin 40 MG/0.4 ML Syringe SC (10:14)
--- NOTE | 2018-03-04 10:22 | PN_ITS ---
Patient Problems: Active and Suspected Problems Severe sepsis (Acute) Subjective: Feels great up eating breakfast. States that her cellulitis is much improved than admission. Vitals/I&O's: Vital Signs Temp Pulse Resp BP Pulse Ox 98.3 F 66 16 147/64 H 100 03/04/18 08:10 03/04/18 08:10 03/04/18 08:10 03/04/18 08:10 03/04/18 08:10 Oxygen Flow Rate (L/min) 2 Oxygen Delivery Method Room Air Weight: 181 lb 7.047 oz Body Mass Index (BMI) 34.2 Finger Stick Blood Glucose 126 Intake and Output for Last 24 Hours 03/02/18 03/03/18 03/04/18 23:59 23:59 23:59 Intake Total 6613 / 6613 3356 / 3356 842 / 842 Output Total 4225 / 4225 3250 / 3250 1400 / 1400 Balance 2388 / 2388 106 / 106 -558 / -558 General: Alert, Oriented x3, Cooperative, No apparent distress HEENT: Atraumatic, EOMI, Normocephalic Oral: Moist Mucosa Neck: Supple, No JVD, Trachea Midline Lungs: Clear to auscultation, Normal air movement, No rhonchi, No wheeze, No rales Cardiovascular: Regular rate, Regular Rhythm, Normal S1, Normal S2, No murmurs Abdomen: Soft, Non Tender, Non-Distended, No Hepato-splenomegaly Extremities: No edema, Capillary Refill Less than 3 Seconds Skin: - - Extensive area of erythema which is much improved on her anterior chest expanding up on the left side as well as her abdomen. Neurological: Neuro grossly intact, Sensory exam intact to light touch and pain Psych/Mental Status: Normal Affect, Appropriate Microbiology Past 72 Hours 03/01/18 12:15 Blood Culture (Wb) - Anticubital Right Blood Culture - Final Streptococcus agalactiae (B) 03/01/18 11:15 Blood Culture (Wb) - Anticubital Right Bacteria Detection (PCR) - Final Streptococcus agalactiae (B) 03/01/18 11:15 Blood Culture (Wb) - Anticubital Right Blood Culture - Final Streptococcus agalactiae (B) Laboratory Results 03/03/18 09:05: Vancomycin Trough 4.7 L 03/03/18 12:09: POC Glucose 126 H 03/03/18 16:39: POC Glucose 231 H 03/03/18 22:52: POC Glucose 191 H 03/04/18 05:30: Sodium 145, Potassium 3.9, Chloride 111 H, Carbon Dioxide 27.0, Anion Gap 7, BUN 7, Creatinine 0.56, Estim Creat Clear Calc 78.60, Est GFR (MDRD) Af Amer 140, Est GFR (MDRD) Non-Af 116, BUN/Creatinine Ratio 12.5, Gl ucose 156 H, Calcium 8.1 L 03/04/18 06:12: POC Glucose 143 H Current Medications Acetaminophen (Tylenol) 650 mg PO Q6H PRN PRN PRN Reason: Mild Pain (scale 0-3)/T>100.7 Last Admin: 03/03/18 20:33 Dose: 650 mg Anastrozole (Arimidex) 1 mg PO DAILY [facility] Last Admin: 03/03/18 09:37 Dose: 1 mg Calcium/Vitamin D (Os-Huy 500mg + D) 1 tablet PO DAILY@1200 [facility] Last Admin: 03/03/18 12:11 Dose: 1 tablet Dextrose (D50w Syringe) 0 gm IV X1 PRN; Protocol PRN Reason: Hypoglycemia Docusate Sodium (Colace) 100 mg PO BID [facility] Last Admin: 03/03/18 21:41 Dose: 100 mg Enoxaparin Sodium (Lovenox) 40 mg SC DAILY@1000 [facility] Last Admin: 03/03/18 09:37 Dose: 40 mg Fluoxetine HCl (Prozac) 20 mg PO DAILY [facility] Last Admin: 03/03/18 09:38 Dose: 20 mg Furosemide (Lasix) 20 mg PO DAILY PRN PRN PRN Reason: edema Glucagon () 1 mg IM .X1 PRN PRN Reason: Hypoglycemia Cefazolin Sodium () 1 gm in 50 mls @ 150 mls/hr IV Q8 [facility] Last Admin: 03/04/18 06:13 Dose: 150 mls/hr Sodium Chloride () 250 mls @ 15 mls/hr IV .[id number] PRN PRN Reason: SALINE FLUSH Last Admin: 03/04/18 06:15 Dose: 15 mls/hr Ibuprofen (Motrin) 600 mg PO Q8H PRN PRN PRN Reason: MILD PAIN (1-3/10) Last Admin: 03/03/18 13:34 Dose: 600 mg Insulin Human Lispro (Humalog Kwikpen (Bkc)) 0 unit SQ ACHS [facility]; Protocol Last Admin: 03/04/18 06:12 Dose: Not Given Lorazepam (Ativan) 0.5 mg PO QHS PRN PRN PRN Reason: INSOMNIA Last Admin: 03/03/18 22:55 Dose: 0.5 mg Lorazepam (Ativan) 0.5 mg PO Q8H PRN PRN PRN Reason: ANXIETY Magnesium Hydroxide (Milk Of Magnesia) 30 ml PO DAILY PRN PRN PRN Reason: Constipation Morphine Sulfate () 2 - 4 mg IV Q3H PRN PRN PRN Reason: Severe Pain (pain scale 6-10) Last Admin: 03/03/18 22:54 Dose: 2 mg Morphine Sulfate () 2 - 4 mg IV Q3H PRN PRN PRN Reason: Severe Pain (pain scale 6-10) Last Admin: 03/01/18 17:26 Dose: 4 mg Multivitamins (Multivitamin) 1 tablet PO QHS [facility] Last Admin: 03/03/18 21:41 Dose: 1 tablet Ondansetron HCl (Zofran) 8 mg PO Q8H PRN PRN PRN Reason: NAUSEA Oxycodone HCl (Oxyir) 5 mg PO Q4H PRN PRN PRN Reason: Moderate Pain (pain scale 4-5) Pantoprazole Sodium (Protonix) 40 mg PO DAILY [facility] Last Admin: 03/03/18 09:37 Dose: 40 mg Potassium Chloride (K-Dur) 10 meq PO DAILY PRN PRN PRN Reason: with lasix- edema Psyllium Hydrophilic Mucilloid (Metamucil) 1 packet PO DAILY PRN PRN PRN Reason: CONSTIPATION Sodium Chloride () 5 - 15 ml IV UD PRN PRN Reason: SALINE FLUSH Last Admin: 03/03/18 23:03 Dose: 10 ml Tramadol HCl (Ultram) 50 mg PO TID PRN PRN PRN Reason: PAIN Medical Necessity - Tobacco Use Smoking Status: Never smoker Assessment/Plan All Active Problems Cellulitis of trunk (Acute) Severe sepsis (Acute) 1. Severe sepsis secondary to streptococcal anterior abdominal wall cellulitis/streptococcal bacteremia -This is her third strep cellulitis -Last time was over a month ago when she was treated with 2 weeks of p.o. Keflex -We will obtain an echo and consult infectious disease for management -Need to obtain a RIC to fully rule out endocarditis -CT chest abdomen and pelvis were negative for source -We will continue with Ancef IV 2. History of invasive ductal left breast carcinoma -That is post bilateral mastectomy axillary dissection underwent chemoradiation -underwent chemoradiation and is now on Arimidex 3. DM 2 -Hold p.o. metformin -Continue with SSI 4. Hypertension/hyperlipidemia -Stable -Continue with home blood pressure medications and statin 5. Anxiety/depression -Stable -Continue with Ativan and Prozac 6. GERD -Stable -Continue with PPI DVT: Lovenox Code Visit Inpatient E&M: 16950 Subs Hosp L2
[2018-03-04] MEDS: Insulin Lispro 100 UNIT/ML INSULN.PEN SQ (11:55)
[2018-03-04 12:20] LABS: Bedside Glucose 184 mg/dL (70-110)
--- NOTE | 2018-03-04 12:33 | PCM.HP.ID ---
Problem List (1) 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 Orourke History of Present Illness: 62 year old F with h/o breast cancer now s/p bilateral mastectomy, chemo, and radiation who presented 03/01 with 1-2 days of R chest redness, fever, shaking chills, not feeling well, n/v. No drainage from chest. Has some chronic skin tears under R breast tissue. Mild soreness with the rash. Redness spread across L side and upper abd. Had similar cellulitis 12/2017, went to ED, resolved with dose of ceftriaxone and 10 days of augmentin. Presented again 01/19 with one day history of abd redness, pain, and itching. Found to have GBS bacteremia, discharged on po keflex after rapid improvement. Completed course of abx with no further issues except for shingles on R abd a few weeks ago. Came back to ED once fever started, admitted on vanc and cefazolin, now feeling better, no further fever, redness much improved. Full ROS performed and neg except as noted above. - Medical History Past Medical History (Chronic Problems): Chronic Problems Cancer of breast, intraductal (Chronic) Bacteremia due to group B Streptococcus (Chronic) Rheumatoid arthritis (Chronic) Obesity (Chronic) History of cigarette smoking unknown (Chronic) Diabetes mellitus type II, controlled (Chronic) Hyperlipidemia (Chronic) Hypertension (Chronic) Allergies/Adverse Reactions: Allergies shellfish derived Allergy (Mild, Verified 03/01/18 10:31) Hives iodine Allergy (Verified 03/01/18 10:31) Hives liraglutide [From Victoza] Adverse Reaction (Verified 03/01/18 10:31) Nausea, VOMITING IV DYE Allergy (Mild, Uncoded 03/01/18 10:31) Hives Home Medications: Ambulatory Orders Medication Instructions Recorded Butalbital/Aspirin/Caffeine 1 tab PO DAILY PRN PRN 03/21/13 [Fiorinal 50-325-40 mg Capsule] Fluoxetine [Prozac] 20 mg PO DAILY 03/21/13 Multivitamins,Therapeutic 1 tablet PO QHS 03/21/13 [Multivitamin] Omeprazole [Prilosec] 40 mg PO DAILY 03/21/13 Acetaminophen [Tylenol] 500 - 1,000 mg PO Q6H PRN PRN 04/18/17 Aspirin/Acetaminophen/Caffeine 1 each PO DAILY PRN PRN 04/18/17 [Excedrin Migraine Caplet] Calm Day 1 cap PO DAILY 04/18/17 Ibuprofen 400 mg PO Q6H PRN PRN 04/18/17 Metformin HCl 500 mg PO BID 04/18/17 Anastrozole [Arimidex] 1 mg PO DAILY 01/18/18 Calcium 600-Vit D3 400 Tablet 1 capsule PO DAILY 01/19/18 Calcium Magnesium Vitamin D3 1 cap PO DAILY 01/19/18 Lorazepam [Ativan] 0.5 mg PO Q8H PRN PRN 01/19/18 Ondansetron [Zofran] 8 mg PO Q8H PRN PRN 01/19/18 Furosemide [Lasix] 20 mg PO DAILY PRN PRN 03/01/18 Potassium Chloride [K-Dur] 10 meq PO DAILY PRN PRN 03/01/18 traMADol [Ultram (G)] 50 mg PO TID PRN 03/01/18 - Social History SMOKING STATUS:: Never smoker Vital Signs Temp Pulse Resp BP Pulse Ox 98.3 F 66 16 147/64 H 100 03/04/18 08:10 03/04/18 08:10 03/04/18 08:10 03/04/18 08:10 03/04/18 08:10 Oxygen Flow Rate (L/min) 2 Oxygen Delivery Method Room Air Weight: 82.3 kg Body Mass Index (BMI) 34.2 Finger Stick Blood Glucose 126 Microbiology Past 72 Hours 03/01/18 12:15 Blood Culture - Final Blood Culture (Wb) - Anticubital Right Streptococcus agalactiae (B) 03/01/18 11:15 Bacteria Detection (PCR) - Final Blood Culture (Wb) - Anticubital Right Streptococcus agalactiae (B) Blood Culture - Final Streptococcus agalactiae (B) Laboratory Tests Past 24 Hrs 03/04/18 05:30 Sodium 145 Potassium 3.9 Chloride 111 H Carbon Dioxide 27.0 Anion Gap 7 BUN 7 Creatinine 0.56 Estim Creat Clear Calc 78.60 Est GFR (MDRD) Af Amer 140 Est GFR (MDRD) Non-Af 116 BUN/Creatinine Ratio 12.5 Glucose 156 H Calcium 8.1 L - Other Studies Radiology: [] reviewed Other Studies: [] Route of nutrition/ use of supplements: [] Nutritional Intake: [] IV Site: [] Mukherjee Catheter: [] - Physical Exam General: Alert, Oriented x3, Cooperative, No apparent distress HEENT: Atraumatic, PERRLA, EOMI Neck: Supple, No Nodes Lungs: Clear to auscultation, Normal air movement Cardiovascular: Regular rate, Regular Rhythm, No murmurs Abdomen: Soft, Non Tender, Non-Distended Extremities: No edema Skin: - - Fading rash on R chest, which spread to L side and upper abd. S/p bilateral mastectomies. IV Site: Peripheral, without redness Musculoskeletal: No Tenderness to Palpation of Joints or Extremities Neurological: Cranial nerves II-XII grossly intact - Assessment/Plan Antibiotics: [] Assessment/Plan: [] Active and Suspected Problems Severe sepsis (Acute) Recurrent GBS bacteremia - fever resolved. Had similar episode a month ago. Sx start with R sided cellulitis. She has h/o bilateral mastectomy. CT chest showed small L sided collection near prior lymph dissection as well as some tissue thickening around L breast surgical site. No other clear source of infection. Continue cefazolin. Concern for unresolved nidus of infection. Agree with TTE, and will consult surgery for eval. Dr. Hawkins did R side mastectomy, so will consult him, though CT scan did show L sided small fluid collection. Will follow, thank you, d/w Dr. Orourke.
--- NOTE | 2018-03-04 14:39 | PCM.CONS.B ---
- Consult Date of Consult: 03/04/18 - Reason for Consult 62 y\o WF presents with repeated cellulitis, has had three episodes since December 2017, and presented with sepsis and bacteremia for the latter two presentations - January and this admission. She had chemotherapy for left breast cancer and also radiation to the left chest wall. She is s/p 3\9\18 left mastectomy and sentinel lymph node biopsy and prophylactic right mastectomy and 4\12\18 left axillary lymph node dissection, revision of dog ear. She states that the cellulitis always begins in the fold of her remnant right breast site. PAST MEDICAL HISTORY ? Diverticulosis of colon with hemorrhage ? Personal history of colonic polyps ? PMH - PAST MEDICAL HISTORY OF SPASTIC COLON ? Psoriatic arthritis (HCC) ? Tension headache ? Type II or unspecified type diabetes mellitus without mention of complication, not stated as uncontrolled History of left breast cancer PAST SURGICAL HISTORY COLONOSCOP W/ OR W/O [facility] SPEC 2000 COLONOSCOP W/ OR W/O [facility] SPEC 12/09/2012 EGD W/O OR W/BRUSH/WASH 12/09/2012 EXCIS BREAST LESION Left breast HYSTEROSCOPY WBX WWO D AND C ANDOR POLYPECTOMY 2011 LIGATE FALLOPIAN TUBE PAST SURGICAL HISTORY OF cyst removed from back bilateral mastectomies left axillary lymph node dissection, revision of dog ear PAST INJURIES Denies head injuries, denies history of fractures Current Outpatient Prescriptions: OTEZLA 30 mg tablet AFLURIA QUAD [id number], PF, 60 mcg/0.5 mL syrg To be injected by Pharmacist metFORMIN ER (GLUCOPHAGE XR) 500 mg 24 hr tablet Take 1,000 mg by mouth once daily. SUMAtriptan (IMITREX) 100 mg tablet Take 100 mg by mouth as needed. Omeprazole (PRILOSEC) 40 mg capsule Take 40 mg by mouth once daily. methotrexate 2.5 mg tablet Take 2.5 mg by mouth as directed. Pt is taking 6 tablets, once weekly hydroxychloroquine (PLAQUENIL) 200 mg tablet Take 200 mg by mouth twice daily. LEUCOVORIN CALCIUM ORAL Take 5 mg by mouth once each week. Pt takes this the day after taking methotrexate. zfmgwmi-gmgzmhte-zafvanipsu capsule Take 1 capsule by mouth once daily as needed. traMADol 50 mg tablet Take 50 mg by mouth three times daily as needed. eletriptan (RELPAX) 20 mg tablet Take 20 mg by mouth as needed. may repeat in 2 hours if necessary saxagliptin-metFORMIN (KOMBIGLYZE XR) 5-1,000 mg TM24 Take by mouth. Flaxseed Oil 1,000 mg ORAL Cap Take 1 capsule by mouth once daily. simvastatin (ZOCOR) 20 mg ORAL tablet Take 1 tablet by mouth daily at bedtime. omeprazole (PRILOSEC) 20 mg ORAL capsule Take 1 capsule by mouth once daily. LORazepam 0.5 mg ORAL Tab Take 0.5 mg by mouth once daily as needed. fluoxetine 20 mg ORAL capsule Take 20 mg by mouth once daily. gluc nicholson/chondro nicholson a/vit c/mn(GLUCOSAMINE CHONDROITIN MAXIMUM STRENGTH 500 MG-400 MG CAP) Take one(1) capsules three(3) times daily.. naproxen sodium(ALEVE 220 MG TAB) PRN MULTIVITAMIN TAB Take one(1) tablet daily. CALCIUM + D 600 MG-200 UNIT TAB Take one(1) tablet twice daily. TYLENOL EXTRA STRENGTH 500 MG TAB Take two(2) tablets every six(6) hours as needed for pain. ALLERGIES: Iodine; Iv Dye [Iodinated Contrast- Oral And Iv Dye]; Shellfish; Victoza [Liraglutide] PERSONAL HISTORY: Social History Marital status: Spouse name: Niles Years of education: 16 Number of children: 0 Occupation Employer Comment [employer] Social History Main Topics Smoking status: Passive Smoke Exposure - Never Smoker Packs/day: 0.00 Years: 0.00 Smokeless status: Never Used Comment: smokes socially Alcohol use: No Drug use: No Sexual activity: Not Currently Partners with: Male control/protection: Tubal Ligation FAMILY HISTORY ? Diabetes Father ? Heart Father ? Breast Cancer Maternal Grandmother ? Prostate Cancer Maternal Grandfather ? Osteoporosis Mother ? Osteoporosis Sister ? Hypertension Sister ? Lipids Father ? Arthritis Mother ? GI Mother IBS REVIEW OF SYSTEMS: General: The patient denies fatigue, denies weight loss, denies weight gain, denies feeling hot, and denies feelings of cold. Eyes: The patient denies glaucoma, denies eye injury/surgery, wears glasses or contacts. Ear/Nose/Throat: The patient denies allergies, denies hayfever, denies ear infections, and denies bloody noses. Cardiovascular:denies chest pain, denies heart disease, denies high blood pressure,denies cardiac stent, denies prior heart attack, denies irregular heart beat, denies high cholesterol, denies poor circulation, denies heart failure, other cardiac issues, denies claudication, denies cold feet, denies peripheral arterial stent. Respiratory: The patient denies tuberculosis, denies pneumonia, denies frequent cough, denies pulmonary embolism, denies shortness of breath, and denies coughing up blood. Gastrointestinal: had last colonoscopy Feb 2017, denies difficulty swallowing, NOTES acid reflux, denies ulcers, denies vomiting, denies jaundice/hepatitis, denies gallbladder problems, denies black or tarry stools, denies hemorrhoids, denies bleeding from rectum, denies diverticulitis, denies constipation, denies diarrhea, denies loss of stool control, and denies hernias. Kidney/Bladder: The patient denies kidney stones, denies urine infections, and denies bloody urine. Skin: The patient denies a history of skin cancer, denies bleeding/changing moles, and denies a history of skin rash. Neurologic:has tension headaches, denies seizures, denies head/spinal injuries, and denies stroke/TIA. Psychiatric: The patient denies psychiatric medications, NOTES depression, and denies voices, denies substance abuse. Endocrine: The patient denies thyroid disorders, NOTES diabetes, and denies hormonal problems. Hematologic: The patient denies a history of bruising, denies bleeding, and denies anemia, denies blood clots. Infections: The patient denies a history of measles and mumps, denies rheumatic fever, and denies sexually transmitted diseases. Musculoskeletal: has osteoarthritis of shoulders, denies back pain/injury, denies back problems, denies sciatica, denies knee/foot trouble, NOTES arthritis, or denies gout. Obstetrical: menarche onset at age 13, had shots to induce normal menstrual periods then started on hormones at age 16 and continued until age 19 and then begun on BCP - all to aid in normalizing menstrual periods, patient had normal menstrual periods starting at age 42, menopause around age 52 PHYSICAL EXAMINATION: General: The patient is 61 year old female, well nourished, well hydrated in no acute distress. The patient is oriented to time, place, and person. VITALS: Blood pressure 138/62, pulse 64, weight 88.5 kg (195 lb). Body mass index is 36.25 kg/(m^2) Head ? Normocephalic. EOM intact with sclera clear and no icterus noted. Mouth with mucus membranes moist. Neck - supple with no jugular venous distention noted. Trachea is midline. No carotid bruits noted. No thyroid enlargement or thyroid nodules detected. No masses noted. Chest/breast ? bilateral surgical mastectomies with well healed incisional sites - erythema of anterior abdominal wall - no palpable masses, retained breast tissue at right mastectomy site - this is the location that the patient states that the infection always starts Lungs ? clear to auscultation. Normal breath sounds. No rales/rhonchi/wheezing noted. No labored breathing noted, such as retractions. No cough heard. Heart ? normal S1 and S2 auscultated. No rubs/clicks/murmurs noted. Regular rate. Abdomen ? soft and benign. erythema now brawny in coloration of anterior abdominal wall - patient states that it was much more red a few days ago. Normal bowel sounds. No abdominal bruits noted. Difficult to determine if any masses or organomegaly due to body habitus. Extremities ? no calf tenderness noted. No pitting edema noted. Skin ? normal skin integrity. Lymph ? no cervical adenopathy detected, no supraclavicular adenopathy detected, no axillary adenopathy detected Neurological ? gait normal, no focal deficits Psych ? calm and appropriate RADIOLOGIC STUDIES: As Noted Impression: recurrence cellulitis - developing into sepsis Plan: I have discussed above with patient and her . I have personally reviewed CT scans - chest and abdomen. ECHO pending to rule out bacterial endocarditis. I have given them options- I have offered completion right breast mastectomy (there is residual breast tissue present though no seroma at this site -there is some scar tissue at left mastectomy site however patient states that no inflammatory changes noted there until this episode - however patient states that infection always begins at the location of the right mastectomy site). I have told them that I do not know if this will prevent future episodes of cellulitis. They will think about their options.
[2018-03-04 15:40] VITALS: BP 138/60; PULSE 59; RESP 16; TEMP 36.9; O2SAT 98
[2018-03-04] MEDS: Ibuprofen 600 MG Tablet PO (15:47)
[2018-03-04 17:50] LABS: Bedside Glucose 148 mg/dL (70-110)
[2018-03-04 21:09] VITALS: BP 139/58; PULSE 60; RESP 18; TEMP 37.2; O2SAT 98
[2018-03-04] MEDS: Multivitamins,Therapeutic Tablet 1 TABLET PO (21:19)
[2018-03-04] MEDS: LORazepam 0.5 MG Tablet PO (21:20)
[2018-03-04 21:21] LABS: Bedside Glucose 124 mg/dL (70-110)
[2018-03-04] MEDS: Morphine 2 MG/ML Syringe IV (21:21)
[2018-03-05] MEDS: Cefazolin 1 GM/50 ML BAG IV ×2 (06:32→15:17)
[2018-03-05 06:33] VITALS: BP 157/72; PULSE 61; RESP 16; TEMP 37.1; O2SAT 98
[2018-03-05] MEDS: Acetaminophen 325 MG Tablet 650 MG PO (06:36)
[2018-03-05 06:51] LABS: Bedside Glucose 140 mg/dL (70-110)
--- NOTE | 2018-03-05 08:47 | PCM.PN.HOSP ---
Patient Problems: Active and Suspected Problems Severe sepsis (Acute) Subjective: Feels great today states that the cellulitis is much better today than it was even yesterday Vitals/I&O's: Vital Signs Temp Pulse Resp BP Pulse Ox 98.7 F 61 16 157/72 H 98 03/05/18 06:33 03/05/18 06:33 03/05/18 06:33 03/05/18 06:33 03/05/18 06:33 Oxygen Flow Rate (L/min) 2 Oxygen Delivery Method Room Air Weight: 181 lb 7.047 oz Body Mass Index (BMI) 34.2 Finger Stick Blood Glucose 126 Intake and Output for Last 24 Hours 03/03/18 03/04/18 03/05/18 23:59 23:59 23:59 Intake Total 3356 / 3356 2604 / 2604 1351 / 1351 Output Total 3250 / 3250 3200 / 3200 1850 / 1850 Balance 106 / 106 -596 / -596 -499 / -499 General: Alert, Oriented x3, Cooperative, No apparent distress HEENT: Atraumatic, EOMI, Normocephalic Oral: Moist Mucosa Neck: Supple, No JVD, Trachea Midline Lungs: Clear to auscultation, Normal air movement, No rhonchi, No wheeze, No rales Cardiovascular: Regular rate, Regular Rhythm, Normal S1, Normal S2, No murmurs Abdomen: Soft, Non Tender, Non-Distended, No Hepato-splenomegaly Extremities: No edema, Capillary Refill Less than 3 Seconds Skin: - - Extensive area of erythema which is much improved on her anterior chest expanding up on the left side as well as her abdomen. Neurological: Neuro grossly intact, Sensory exam intact to light touch and pain Psych/Mental Status: Normal Affect, Appropriate Microbiology Past 72 Hours 03/01/18 12:15 Blood Culture (Wb) - Anticubital Right Blood Culture - Final Streptococcus agalactiae (B) 03/01/18 11:15 Blood Culture (Wb) - Anticubital Right Bacteria Detection (PCR) - Final Streptococcus agalactiae (B) 03/01/18 11:15 Blood Culture (Wb) - Anticubital Right Blood Culture - Final Streptococcus agalactiae (B) Laboratory Results 03/04/18 11:53: POC Glucose 184 H 03/04/18 17:40: POC Glucose 148 H 03/04/18 21:14: POC Glucose 124 H 03/05/18 06:38: POC Glucose 140 H Current Medications Acetaminophen (Tylenol) 650 mg PO Q6H PRN PRN PRN Reason: Mild Pain (scale 0-3)/T>100.7 Last Admin: 03/05/18 06:36 Dose: 650 mg Anastrozole (Arimidex) 1 mg PO DAILY [facility] Last Admin: 03/04/18 10:14 Dose: 1 mg Calcium/Vitamin D (Os-Huy 500mg + D) 1 tablet PO DAILY@1200 [facility] Last Admin: 03/04/18 10:14 Dose: 1 tablet Dextrose (D50w Syringe) 0 gm IV X1 PRN; Protocol PRN Reason: Hypoglycemia Docusate Sodium (Colace) 100 mg PO BID [facility] Last Admin: 03/04/18 21:19 Dose: Not Given Enoxaparin Sodium (Lovenox) 40 mg SC DAILY@1000 [facility] Last Admin: 03/04/18 10:14 Dose: 40 mg Fluoxetine HCl (Prozac) 20 mg PO DAILY [facility] Last Admin: 03/04/18 10:14 Dose: 20 mg Furosemide (Lasix) 20 mg PO DAILY PRN PRN PRN Reason: edema Glucagon () 1 mg IM .X1 PRN PRN Reason: Hypoglycemia Cefazolin Sodium () 1 gm in 50 mls @ 150 mls/hr IV Q8 [facility] Last Admin: 03/05/18 06:32 Dose: 150 mls/hr Sodium Chloride () 250 mls @ 15 mls/hr IV .[id number] PRN PRN Reason: SALINE FLUSH Last Admin: 03/04/18 06:15 Dose: 15 mls/hr Ibuprofen (Motrin) 600 mg PO Q8H PRN PRN PRN Reason: MILD PAIN (1-3/10) Last Admin: 03/04/18 15:47 Dose: 600 mg Insulin Human Lispro (Humalog Kwikpen (Bkc)) 0 unit SQ ACHS [facility]; Protocol Last Admin: 03/05/18 06:39 Dose: Not Given Lactobacillus Acidophilus (Acidophilus) 1 tablet PO TID [facility] Last Admin: 03/05/18 06:32 Dose: 1 tablet Lorazepam (Ativan) 0.5 mg PO QHS PRN PRN PRN Reason: INSOMNIA Last Admin: 03/04/18 21:20 Dose: 0.5 mg Lorazepam (Ativan) 0.5 mg PO Q8H PRN PRN PRN Reason: ANXIETY Magnesium Hydroxide (Milk Of Magnesia) 30 ml PO DAILY PRN PRN PRN Reason: Constipation Morphine Sulfate () 2 - 4 mg IV Q3H PRN PRN PRN Reason: Severe Pain (pain scale 6-10) Last Admin: 03/04/18 21:21 Dose: 2 mg Morphine Sulfate () 2 - 4 mg IV Q3H PRN PRN PRN Reason: Severe Pain (pain scale 6-10) Last Admin: 03/01/18 17:26 Dose: 4 mg Multivitamins (Multivitamin) 1 tablet PO QHS [facility] Last Admin: 03/04/18 21:19 Dose: 1 tablet Ondansetron HCl (Zofran) 8 mg PO Q8H PRN PRN PRN Reason: NAUSEA Oxycodone HCl (Oxyir) 5 mg PO Q4H PRN PRN PRN Reason: Moderate Pain (pain scale 4-5) Pantoprazole Sodium (Protonix) 40 mg PO DAILY [facility] Last Admin: 03/04/18 10:13 Dose: 40 mg Potassium Chloride (K-Dur) 10 meq PO DAILY PRN PRN PRN Reason: with lasix- edema Psyllium Hydrophilic Mucilloid (Metamucil) 1 packet PO DAILY PRN PRN PRN Reason: CONSTIPATION Sodium Chloride () 5 - 15 ml IV UD PRN PRN Reason: SALINE FLUSH Last Admin: 03/03/18 23:03 Dose: 10 ml Tramadol HCl (Ultram) 50 mg PO TID PRN PRN PRN Reason: PAIN Medical Necessity - Tobacco Use Smoking Status: Never smoker Assessment/Plan All Active Problems Cellulitis of trunk (Acute) Severe sepsis (Acute) 1. Severe sepsis secondary to streptococcal anterior abdominal wall cellulitis/streptococcal bacteremia -This is her third strep cellulitis -Last time was over a month ago when she was treated with 2 weeks of p.o. Keflex -We will obtain an echo and consult infectious disease for management -TTE had good views and did not appreciate any vegetations on the valves -CT chest abdomen and pelvis were negative for source, but they are was a 2.5 x 1.8 cm left axillary fluid collection that appears likely to be a seroma, is also a 3.7 mm subpleural nodule likely postinflammatory related to the prior radiation treatment -We will continue with Ancef IV 2. History of invasive ductal left breast carcinoma -That is post bilateral mastectomy axillary dissection underwent chemoradiation -underwent chemoradiation and is now on Arimidex 3. DM 2 -Hold p.o. metformin -Continue with SSI 4. Hypertension/hyperlipidemia -Stable -Continue with home blood pressure medications and statin 5. Anxiety/depression -Stable -Continue with Ativan and Prozac 6. GERD -Stable -Continue with PPI DVT: Lovenox Code Visit Inpatient E&M: 50999 Subs Hosp L2
--- NOTE | 2018-03-05 08:50 | PN_ITS ---
Patient Problems: Active and Suspected Problems Severe sepsis (Acute) Subjective: Feels great today states that the cellulitis is much better today than it was even yesterday Vitals/I&O's: Vital Signs Temp Pulse Resp BP Pulse Ox 98.7 F 61 16 157/72 H 98 03/05/18 06:33 03/05/18 06:33 03/05/18 06:33 03/05/18 06:33 03/05/18 06:33 Oxygen Flow Rate (L/min) 2 Oxygen Delivery Method Room Air Weight: 181 lb 7.047 oz Body Mass Index (BMI) 34.2 Finger Stick Blood Glucose 126 Intake and Output for Last 24 Hours 03/03/18 03/04/18 03/05/18 23:59 23:59 23:59 Intake Total 3356 / 3356 2604 / 2604 1351 / 1351 Output Total 3250 / 3250 3200 / 3200 1850 / 1850 Balance 106 / 106 -596 / -596 -499 / -499 General: Alert, Oriented x3, Cooperative, No apparent distress HEENT: Atraumatic, EOMI, Normocephalic Oral: Moist Mucosa Neck: Supple, No JVD, Trachea Midline Lungs: Clear to auscultation, Normal air movement, No rhonchi, No wheeze, No rales Cardiovascular: Regular rate, Regular Rhythm, Normal S1, Normal S2, No murmurs Abdomen: Soft, Non Tender, Non-Distended, No Hepato-splenomegaly Extremities: No edema, Capillary Refill Less than 3 Seconds Skin: - - Extensive area of erythema which is much improved on her anterior chest expanding up on the left side as well as her abdomen. Neurological: Neuro grossly intact, Sensory exam intact to light touch and pain Psych/Mental Status: Normal Affect, Appropriate Microbiology Past 72 Hours 03/01/18 12:15 Blood Culture (Wb) - Anticubital Right Blood Culture - Final Streptococcus agalactiae (B) 03/01/18 11:15 Blood Culture (Wb) - Anticubital Right Bacteria Detection (PCR) - Final Streptococcus agalactiae (B) 03/01/18 11:15 Blood Culture (Wb) - Anticubital Right Blood Culture - Final Streptococcus agalactiae (B) Laboratory Results 03/04/18 11:53: POC Glucose 184 H 03/04/18 17:40: POC Glucose 148 H 03/04/18 21:14: POC Glucose 124 H 03/05/18 06:38: POC Glucose 140 H Current Medications Acetaminophen (Tylenol) 650 mg PO Q6H PRN PRN PRN Reason: Mild Pain (scale 0-3)/T>100.7 Last Admin: 03/05/18 06:36 Dose: 650 mg Anastrozole (Arimidex) 1 mg PO DAILY [facility] [place] Last Admin: 03/04/18 10:14 Dose: 1 mg Calcium/Vitamin D (Os-Huy 500mg + D) 1 tablet PO DAILY@1200 [facility] [place] Last Admin: 03/04/18 10:14 Dose: 1 tablet Dextrose (D50w Syringe) 0 gm IV X1 PRN; Protocol PRN Reason: Hypoglycemia Docusate Sodium (Colace) 100 mg PO BID [facility] [place] Last Admin: 03/04/18 21:19 Dose: Not Given Enoxaparin Sodium (Lovenox) 40 mg SC DAILY@1000 [facility] [place] Last Admin: 03/04/18 10:14 Dose: 40 mg Fluoxetine HCl (Prozac) 20 mg PO DAILY [facility] [place] Last Admin: 03/04/18 10:14 Dose: 20 mg Furosemide (Lasix) 20 mg PO DAILY PRN PRN PRN Reason: edema Glucagon () 1 mg IM .X1 PRN PRN Reason: Hypoglycemia Cefazolin Sodium () 1 gm in 50 mls @ 150 mls/hr IV Q8 [facility] [place] Last Admin: 03/05/18 06:32 Dose: 150 mls/hr Sodium Chloride () 250 mls @ 15 mls/hr IV .[id number] PRN PRN Reason: SALINE FLUSH Last Admin: 03/04/18 06:15 Dose: 15 mls/hr Ibuprofen (Motrin) 600 mg PO Q8H PRN PRN PRN Reason: MILD PAIN (1-3/10) Last Admin: 03/04/18 15:47 Dose: 600 mg Insulin Human Lispro (Humalog Kwikpen (Bkc)) 0 unit SQ ACHS [facility] [place]; Protocol Last Admin: 03/05/18 06:39 Dose: Not Given Lactobacillus Acidophilus (Acidophilus) 1 tablet PO TID [facility] [place] Last Admin: 03/05/18 06:32 Dose: 1 tablet Lorazepam (Ativan) 0.5 mg PO QHS PRN PRN PRN Reason: INSOMNIA Last Admin: 03/04/18 21:20 Dose: 0.5 mg Lorazepam (Ativan) 0.5 mg PO Q8H PRN PRN PRN Reason: ANXIETY Magnesium Hydroxide (Milk Of Magnesia) 30 ml PO DAILY PRN PRN PRN Reason: Constipation Morphine Sulfate () 2 - 4 mg IV Q3H PRN PRN PRN Reason: Severe Pain (pain scale 6-10) Last Admin: 03/04/18 21:21 Dose: 2 mg Morphine Sulfate () 2 - 4 mg IV Q3H PRN PRN PRN Reason: Severe Pain (pain scale 6-10) Last Admin: 03/01/18 17:26 Dose: 4 mg Multivitamins (Multivitamin) 1 tablet PO QHS [facility] Last Admin: 03/04/18 21:19 Dose: 1 tablet Ondansetron HCl (Zofran) 8 mg PO Q8H PRN PRN PRN Reason: NAUSEA Oxycodone HCl (Oxyir) 5 mg PO Q4H PRN PRN PRN Reason: Moderate Pain (pain scale 4-5) Pantoprazole Sodium (Protonix) 40 mg PO DAILY [facility] [place] Last Admin: 03/04/18 10:13 Dose: 40 mg Potassium Chloride (K-Dur) 10 meq PO DAILY PRN PRN PRN Reason: with lasix- edema Psyllium Hydrophilic Mucilloid (Metamucil) 1 packet PO DAILY PRN PRN PRN Reason: CONSTIPATION Sodium Chloride () 5 - 15 ml IV UD PRN PRN Reason: SALINE FLUSH Last Admin: 03/03/18 23:03 Dose: 10 ml Tramadol HCl (Ultram) 50 mg PO TID PRN PRN PRN Reason: PAIN Medical Necessity - Tobacco Use Smoking Status: Never smoker Assessment/Plan All Active Problems Cellulitis of trunk (Acute) Severe sepsis (Acute) 1. Severe sepsis secondary to streptococcal anterior abdominal wall cellulitis/streptococcal bacteremia -This is her third strep cellulitis -Last time was over a month ago when she was treated with 2 weeks of p.o. Keflex -We will obtain an echo and consult infectious disease for management -TTE had good views and did not appreciate any vegetations on the valves -CT chest abdomen and pelvis were negative for source, but they are was a 2.5 x 1.8 cm left axillary fluid collection that appears likely to be a seroma, is also a 3.7 mm subpleural nodule likely postinflammatory related to the prior radiation treatment -We will continue with Ancef IV 2. History of invasive ductal left breast carcinoma -That is post bilateral mastectomy axillary dissection underwent chemoradiation -underwent chemoradiation and is now on Arimidex 3. DM 2 -Hold p.o. metformin -Continue with SSI 4. Hypertension/hyperlipidemia -Stable -Continue with home blood pressure medications and statin 5. Anxiety/depression -Stable -Continue with Ativan and Prozac 6. GERD -Stable -Continue with PPI DVT: Lovenox Code Visit Inpatient E&M: 16042 Subs Hosp L2
[2018-03-05 09:36] VITALS: BP 149/68; PULSE 56; RESP 18; TEMP 37; O2SAT 100
[2018-03-05] MEDS: Anastrozole 1 MG Tablet PO (09:52)
[2018-03-05] MEDS: Pantoprazole Sodium 40 MG Tablet PO (09:53)
[2018-03-05] MEDS: Enoxaparin 40 MG/0.4 ML Syringe SC (09:53)
[2018-03-05] MEDS: FLUoxetine 20 MG Capsule PO (09:53)
[2018-03-05 11:56] LABS: Bedside Glucose 108 mg/dL (70-110)
--- NOTE | 2018-03-05 12:21 | ECHOTEE_ITS ---
Reason For Study: CHEST PAIN Medication RIC probe passed without difficulty. No complications were noted. Cetacaine Topical [place] given X3 orally. Versed 100 mg given slow IVP. Fentanyl 50 mcg given slow IVP. Performed a rapid injection of agitated mix of 9 cc saline and 1cc air to assess for atrial septal defect. Saline bubble X 2. Left Ventricle Normal LV size. Left ventricular systolic function is normal. The estimated ejection fraction is 60 %. No regional wall motion abnormalities noted. Right Ventricle Normal RV size. The right ventricular wall motion is normal. Atria Color flow doppler c/w a small left to right shunt c/w a small PFO. Bubble contrast study negative for right to left interatrial shunt. The left atrium is mildly enlarged. There is no sponatenous contrast in the left atrium. No thrombus is detected in the left atrial appendage. Normal right atrium. There is no sponatenous contrast in the right atrium. No RA/appendage thrombus identified. Mitral Valve There is no mitral annular calcification. Normal mitral valve. Mild (1+) mitral valve insufficiency. Tricuspid Valve Normal tricuspid valve. Trivial tricuspid valve insufficiency. Aortic Valve Trisinus/trileaflet aortic valve. Normal aortic valve. Pulmonic Valve The pulmonic valve is not well visualized. Vessels Mild atherosclerosis of the descending aorta. Pericardium No pericardial effusion. Interpretation Summary Left ventricular systolic function is normal. The estimated ejection fraction is 60 %. The left atrium is mildly enlarged. There is no sponatenous contrast in the left atrium. No thrombus is detected in the left atrial appendage. Mild (1+) mitral valve insufficiency. Trivial tricuspid valve insufficiency. Color flow doppler c/w a small left to right shunt c/w a small PFO. Bubble contrast study negative for right to left interatrial shunt. Mild atherosclerosis of the descending aorta. Ordering Physician: Paul Santillan Referring Physician: JUANA CLARK Performed By: Philippe, Cait, RDCS, RVT
--- NOTE | 2018-03-05 12:22 | PCM.PN.ID ---
Patient Problems: Active and Suspected Problems Severe sepsis (Acute) Subjective: Feeling back to normal, no fever, rash resolved. - Physical Exam General: Alert, Cooperative, No apparent distress Lungs: Clear to auscultation, Normal air movement Cardiovascular: Regular rate, Regular Rhythm, No murmurs Abdomen: Soft, Non Tender, Non-Distended Skin: No rashes Vital Signs Temp Pulse Resp BP Pulse Ox 98.6 F 56 L 18 149/68 H 100 03/05/18 09:36 03/05/18 09:36 03/05/18 09:36 03/05/18 09:36 03/05/18 09:36 Oxygen Flow Rate (L/min) 2 Oxygen Delivery Method Room Air Weight: 82.3 kg Body Mass Index (BMI) 34.2 Finger Stick Blood Glucose 126 Intake and Output for Last 24 Hours 03/03/18 03/04/18 03/05/18 23:59 23:59 23:59 Intake Total 3356 / 3356 2604 / 2604 1468 / 1468 Output Total 3250 / 3250 3200 / 3200 2250 / 2250 Balance 106 / 106 -596 / -596 -782 / -782 Microbiology Past 72 Hours 03/01/18 12:15 Blood Culture - Final Blood Culture (Wb) - Anticubital Right Streptococcus agalactiae (B) 03/01/18 11:15 Bacteria Detection (PCR) - Final Blood Culture (Wb) - Anticubital Right Streptococcus agalactiae (B) Blood Culture - Final Streptococcus agalactiae (B) POC Glucose 03/05/18 03/05/18 03/04/18 11:41 06:38 21:14 POC Glucose 108 140 H 124 H 03/04/18 17:40 POC Glucose 148 H Medical Necessity - Tobacco Use Smoking Status: Never smoker Route of nutrition/ use of supplements: [] Nutritional Intake: [] IV Site: [] Mukherjee Catheter: [] - Assessment/Plan Antibiotics: [] Assessment/Plan: [] Active and Suspected Problems Severe sepsis (Acute) Recurrent GBS bacteremia - fever resolved. Had similar episode a month ago. Sx start with R sided cellulitis. She has h/o bilateral mastectomy. CT chest showed small L sided collection near prior lymph dissection as well as some tissue thickening around L breast surgical site. No other clear source of infection. Continue cefazolin. Seen by Dr. Chong. Discussed options with pt and her , and plan now is for RIC to rule out endocarditis; if this is neg, plan will be for 2-4 weeks of keflex then long suppressive course with once daily dosing. Will follow, d/w Dr. Orourke.
[2018-03-05 15:15] VITALS: BP 147/59; PULSE 53; RESP 18; TEMP 37.3; O2SAT 100
[2018-03-05 16:37] VITALS: BP 147/59; PULSE 53; RESP 18; TEMP 37.3; O2SAT 100
--- NOTE | 2018-03-05 16:38 | DCINST_ITS ---
- Discharge Diagnoses Current Active Problems: Current Active and Chronic Problems Severe sepsis (Acute) You will use the following diet at home:: No restrictions Your food should be the consistency of: Regular Your liquids should be the consistency of: Regular/Thin Discharge Activity: No Restrictions Call your doctor if your incision/area has: Increased Pain/ Swelling, Increased Redness, Foul Smelling Discharge Call your doctor if you observe: Fever of 101 or Higher, Shortness of breath, Dizziness, Chest pain, Increased palpitations (irregular heartbeat) Allergies/Adverse Reactions: Allergies shellfish derived Allergy (Mild, Verified 03/01/18 10:31) Hives iodine Allergy (Verified 03/01/18 10:31) Hives liraglutide [From Victoza] Adverse Reaction (Verified 03/01/18 10:31) Nausea, VOMITING IV DYE Allergy (Mild, Uncoded 03/01/18 10:31) Hives Medications to take at Discharge Butalbital/Aspirin/Caffeine [Fiorinal 50-325-40 mg Capsule] 1 tab PO DAILY PRN PRN 03/21/13 Fluoxetine [Prozac] 20 mg PO DAILY 03/21/13 Multivitamins,Therapeutic [Multivitamin] 1 tablet PO QHS 03/21/13 Omeprazole [Prilosec] 40 mg PO DAILY 03/21/13 Acetaminophen [Tylenol] 500 - 1,000 mg PO Q6H PRN PRN 04/18/17 Aspirin/Acetaminophen/Caffeine [Excedrin Migraine Caplet] 1 each PO DAILY PRN PRN 04/18/17 Calm Day 1 cap PO DAILY 04/18/17 Ibuprofen 400 mg PO Q6H PRN PRN 04/18/17 Metformin HCl 500 mg PO BID 04/18/17 Anastrozole [Arimidex] 1 mg PO DAILY 01/18/18 Calcium 600-Vit D3 400 Tablet 1 capsule PO DAILY 01/19/18 Calcium Magnesium Vitamin D3 1 cap PO DAILY 01/19/18 Lorazepam [Ativan] 0.5 mg PO Q8H PRN PRN 01/19/18 Ondansetron [Zofran] 8 mg PO Q8H PRN PRN 01/19/18 Furosemide [Lasix] 20 mg PO DAILY PRN PRN 03/01/18 Potassium Chloride [K-Dur] 10 meq PO DAILY PRN PRN 03/01/18 traMADol [Ultram] 50 mg PO TID PRN 03/01/18 Cephalexin [Keflex] 500 mg PO Q6 #56 capsule 03/05/18 Nystatin Powder [Mycostatin Powder] 1 applic TOPICAL TID #2 bottle 03/05/18 The following prescriptions were given: Cephalexin [Keflex] 500 mg PO Q6 #56 capsule Nystatin Powder [Mycostatin Powder] 1 applic TOPICAL TID #2 bottle Primary Care Physician: Ruth Jones DO [Primary Care Provider] - Please follow up with your Primary Care Physician in: 3-5 days Test Results: Test results from this visit will be discussed in further detail at your follow- up appointment, if applicable. Please Follow Up With: Paul Santillan MD When: 2 weeks
--- NOTE | 2018-03-05 16:38 | PCM.DC.SUM ---
Discharge Date and Diagnosis - Problem List Patient Problems: Active and Suspected Problems Severe sepsis (Acute) Date of Admission: 03/01/18 Date of Discharge: 03/05/18 - Primary Discharge Diagnosis Active and Suspected Problems Severe sepsis (Acute) - Secondary Discharge Diagnosis Chronic Problems Cancer of breast, intraductal (Chronic) Bacteremia due to group B Streptococcus (Chronic) Rheumatoid arthritis (Chronic) Obesity (Chronic) History of cigarette smoking unknown (Chronic) Diabetes mellitus type II, controlled (Chronic) Hyperlipidemia (Chronic) Hypertension (Chronic) Hospital Course and Treatment Imaging Results: CT Chest: IMPRESSION: 1. Trace bilateral pleural effusions. 2. No airspace consolidation or cavitating process. 3. Bilateral mastectomy. Mildly asymmetric soft tissue density of the inferior left breast/chest but no related focal fluid collection. 4. Probable radiation changes of the anterior left upper lobe. 5. 2.5 x 1.8 cm deep left axillary (adjacent to the left subscapularis muscle) without wall enhancement or air fluid level. Likely represents sequela of prior axillary surgery (such as seroma). Unlikely to be infectious in nature. CT Abd/pelvis: IMPRESSION: 1. No focal fluid collection. Nonspecific abdominal wall induration could relate to patient's history of cellulitis. 2. No intra-abdominal acute inflammatory or infectious process. 3. Atherosclerosis. 4. Degenerative changes of the lumbar spine. 5. Bilateral nephrolithiasis, nonobstructing. Consults: General Surgery Infectious Disease Operations: None Procedures: 2-D Echocardiogram - Interpretation Summary Normal LV size. Left ventricular systolic function is normal. The estimated ejection fraction is 60 %. No evidence for diastolic dysfunction. There is no evidence of a mass or vegetation. This does not rule out endocarditis., Transesophageal Echo - Interpretation Summary Left ventricular systolic function is normal. The estimated ejection fraction is 60 %. The left atrium is mildly enlarged. There is no sponatenous contrast in the left atrium. No thrombus is detected in the left atrial appendage. Mild (1+) mitral valve insufficiency. Trivial tricuspid valve insufficiency. Color flow doppler c/w a small left to right shunt c/w a small PFO. Bubble contrast study negative for right to left interatrial shunt. Mild atherosclerosis of the descending aorta. Summary of Care Provided: Per HPI: The patient is a 62 year old F with history of breast CA status post mastectomy with neoadjuvant chemotherapy currently on anastrozole, history of recurrent streptococcal skin infection who presented with warmth and erythema involving the anterior trunk.. Did notice her symptoms on the morning of her presentation. Patient in addition did experience fever chills as well as palpitations. She had recently completed antibiotic therapy for cellulitis. An assessment of severe sepsis was made treatment initiated per protocol admitted for further inpatient management. Hospital Course: 1. 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 She tested positive for group B strep and was started on IV Ancef. Her cellulitis resolved fairly quickly and she had a CT scan of her chest and abdomen pelvis to determine if there is any sources that could be drained, both were negative. She did have a left axillary fluid collection that appeared to be a seroma without any air bubbles or surrounding inflammation, as well as a 3.7 mm subpleural nodule that was likely postinflammatory related to the prior radiation treatment. She did have initially a transthoracic echo which was normal however to be sure that she did not have endocarditis given the positive strep bacteremia, she underwent a transesophageal echocardiogram today which was also negative for any endocarditis. She was discharged on 2 weeks of Keflex 500 mg p.o. 4 times daily, she will follow-up with infectious disease in 2 weeks to determine if course needs to be longer or if she is to have daily suppressive therapy. She will also need to follow-up with her primary care physician in 3-5 days. 2. Her other medical diagnoses were evaluated and her home medications were continued where appropriate Patient Problems: Active and Suspected Problems Severe sepsis (Acute) - Physical Exam Vital Signs Temp Pulse Resp BP Pulse Ox 99.2 F H 53 L 18 147/59 H 100 03/05/18 15:15 03/05/18 15:15 03/05/18 15:15 03/05/18 15:15 03/05/18 15:15 Oxygen Flow Rate (L/min) 2 Oxygen Delivery Method Room Air Weight: 181 lb 7.047 oz Body Mass Index (BMI) 34.2 Finger Stick Blood Glucose 126 Intake and Output for Last 24 Hours 03/03/18 03/04/18 03/05/18 23:59 23:59 23:59 Intake Total 3356 / 3356 2604 / 2604 1468 / 1468 Output Total 3250 / 3250 3200 / 3200 2250 / 2250 Balance 106 / 106 -596 / -596 -782 / -782 Microbiology Past 72 Hours 03/01/18 12:15 Blood Culture - Final Blood Culture (Wb) - Anticubital Right Streptococcus agalactiae (B) 03/01/18 11:15 Bacteria Detection (PCR) - Final Blood Culture (Wb) - Anticubital Right Streptococcus agalactiae (B) Blood Culture - Final Streptococcus agalactiae (B) POC Glucose 03/05/18 03/05/18 03/04/18 11:41 06:38 21:14 POC Glucose 108 140 H 124 H 03/04/18 17:40 POC Glucose 148 H Discharge Activity: No Restrictions Call your doctor if your incision/area has: Increased Pain/ Swelling, Increased Redness, Foul Smelling Discharge Call your doctor if you observe: Fever of 101 or Higher, Shortness of breath, Dizziness, Chest pain, Increased palpitations (irregular heartbeat) Home Medications: Medications to take at Discharge Butalbital/Aspirin/Caffeine [Fiorinal 50-325-40 mg Capsule] 1 tab PO DAILY PRN PRN 03/21/13 Fluoxetine [Prozac] 20 mg PO DAILY 03/21/13 Multivitamins,Therapeutic [Multivitamin] 1 tablet PO QHS 03/21/13 Omeprazole [Prilosec] 40 mg PO DAILY 03/21/13 Acetaminophen [Tylenol] 500 - 1,000 mg PO Q6H PRN PRN 04/18/17 Aspirin/Acetaminophen/Caffeine [Excedrin Migraine Caplet] 1 each PO DAILY PRN PRN 04/18/17 Calm Day 1 cap PO DAILY 04/18/17 Ibuprofen 400 mg PO Q6H PRN PRN 04/18/17 Metformin HCl 500 mg PO BID 04/18/17 Anastrozole [Arimidex] 1 mg PO DAILY 01/18/18 Calcium 600-Vit D3 400 Tablet 1 capsule PO DAILY 01/19/18 Calcium Magnesium Vitamin D3 1 cap PO DAILY 01/19/18 Lorazepam [Ativan] 0.5 mg PO Q8H PRN PRN 01/19/18 Ondansetron [Zofran] 8 mg PO Q8H PRN PRN 01/19/18 Furosemide [Lasix] 20 mg PO DAILY PRN PRN 03/01/18 Potassium Chloride [K-Dur] 10 meq PO DAILY PRN PRN 03/01/18 traMADol [Ultram] 50 mg PO TID PRN 03/01/18 Cephalexin [Keflex] 500 mg PO Q6 #56 capsule 03/05/18 Nystatin Powder [Mycostatin Powder] 1 applic TOPICAL TID #2 bottle 03/05/18 Following Prescrptions Were Given to Patient: Cephalexin [Keflex] 500 mg PO Q6 #56 capsule Nystatin Powder [Mycostatin Powder] 1 applic TOPICAL TID #2 bottle Primary Care Physician: Ruth Jones DO [Primary Care Provider] - Please follow up with your Primary Care Physician in: 3-5 days Please Follow Up With: Paul Santillan MD When: 2 weeks Disposition: Home Minutes spent on discharge:: 35 Patient Condition:: Good Medical Necessity - Tobacco Use Smoking Status: Never smoker Meaningful Use Info Meaningful Use Diagnoses (Choose all that apply): None applicable Code Visit Inpatient E&M: 21898 Disch Hosp
--- NOTE | 2018-03-08 13:21 | CASEMGMT ---
MARIO KLINE Discharge Follow-Up Phone Call. ROSE: 14 Strata: 4 Discharge Date: 03-05-18 Adm Dx: Severe Sepsis. Call placed to pt to inquire about how she has been doing since she was discharged from the hospital. Pt states, I've been doing pretty good. Just still tired. Pt states she feels like she is continuing to get better but she's just needing to rest a lot. 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 She states she made an appt with Dr Santillan for March 19, but has not made an appt with PCP/Dr Jones yet. She states she is planning to call the office as soon as she can to make that appt. Pt denies having any questions about the discharge instructions or concerns. She states I highly praise [facility]. It's just such a great place to go. MARIO KLINE thanked pt for choosing [facility]. Areli MCCURDY RN, CM
--- OUTSIDE RECORDS SUMMARY | 2018-05-05 21:02 | XMS RPT_ITS | Continuity of Care Document ---
:1955 Author Organization [facility] Address [address] [place] [address] Phone Care Team Providers Name Role Phone Ruth Jones DO Unavailable Dr. Yovani Mcduffie Unavailable Ruth Jones DO Unavailable Truman Patterson Unavailable Unavailable LISA Santana Unavailable Unavailable Angelica Sandoval Unavailable Unavailable Karla Stevenson Unavailable Unavailable Unavailable Unavailable Problems Name Dates Details Abnormal glucose tolerance test (R73.02, 790.22) Status: Active ACUTE PHARYNGITIS (462.) (J02.9, 462) Comments: Psoriatic arthritis on methotrexate and plaquenil with Dr Otto, stopped taking it 2 day ago.Rapid flu and strep negative , will send culture2 days: sore throat, pus streaks, fever low grade 99 .4 l ast night, when swallow feels pain in ear.Clear nasal drainage, occasional dry non productive cough.Burning eyes, arthritis flare up, Denies ear aches, runny nose, sinus pain, PND, NVD, asthma , COPD, SOB, wheezing Status: Active ALLERGIC RHINITIS DUE TO OTHER ALLERGEN (J30.89, 477.8) Status: Active Anxiety (F41.9, 300.00) Status: Active Arthritis (M19.90, 716.90) Status: Active BMI 34.0-34.9,adult (Z68.34, V85.34) Status: Active BMI 35.0-35.9,adult (Z68.35, V85.35) Status: Active BMI 37.0-37.9, adult (Z68.37, V85.37) Status: Active BMI 40.0-44.9, adult (Z68.41, V85.41) Status: Active Body aches (R52, 780.96) Status: Active Bronchitis (J40, 490) Status: Active Cerumen impaction (H61.20, 380.4) Comments: left ear Status: Active Chest pain (R07.9, 786.50) Comments: etiology multifactorial with gerd and MS Status: Active Controlled diabetes mellitus (E11.9, 250.00) Status: Active Cough (R05, 786.2) Status: Active Current nonsmoker (Z78.9, V49.89) Status: Active Cystitis, acute (N30.00, 595.0) Status: Active Diabetes mellitus type 2, uncontrolled, without complications (E11.65, 250.02) Status: Active DISORDER, MENOPAUSAL NOS (627.9) Status: Active Ear pain (H92.09, 388.70) Status: Active Encounter for screening colonoscopy (Z12.11, V76.51) Status: Active Encounter for screening for malignant neoplasm of colon (Renamed from Special screening for malignant neoplasms, colon) (Z12.11, V76.51) Status: Active Eustachian tube dysfunction (H69.80, 381.81) Status: Active Fullness of abdomen (789.9) Comments: particularly over LUQ Status: Active GERD (gastroesophageal reflux disease) (K21.9, 530.81) Status: Active Hormone imbalance (E34.9, 259.9) Status: Active Hyperlipidemia (E78.5, 272.4) Status: Active Hypocalcemia (E83.51, 275.41) Status: Active Immunocompromised, acquired (D84.9, 279.3) Status: Active Invasive ductal carcinoma of breast, left (C50.912, 174.9) Comments: dx 03/01- b/l mastectomy- currently still in chemo then XRT plannedmets to lymph nodes Status: Active Low back pain (M54.5, 724.2) Status: Active 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, estrogen receptor positive (C50.012, 174.0) Status: Active Migraine with aura and without status migrainosus, not intractable (G43.109, 346.00) Status: Active NEED FOR PROPHYLACTIC VACCINATION AND INOCULATION AGAINST INFLUENZA (V04.81) (Renamed from Need for prophylactic vaccination and inoculation against influenza) (Z23, V04.81) Status: Active Nutritional counseling (Z71.3, V65.3) Status: Active Osteoarthritis, unspecified osteoarthritis type, unspecified site (M19.90, 715.90) Status: Active Other intervertebral disc degeneration, lumbar region (M51.36, 722.52) Comments: stable Status: Active Palpitations (R00.2, 785.1) Comments: maybe pvc-- caffeine, sugar, sleep depriv , stress trigger over holidays -- also has stressful job??? Status: Active POLYARTHROPATHY, INFLAMMATORY NOS (714.9) Status: Active Psoriatic arthritis (L40.50, 696.0) Comments: not currently on any meds-- refuses them -- she gets infection everytimeshe is thinking about going back on mxt to control pain Status: Active Rash (R21, 782.1) Status: Active Shingles (B02.9, 053.9) Status: Active Sinus infection (J32.9, 473.9) Status: Active Sinusitis, acute (J01.90, 461.9) Status: Active Streptococcus G (B95.4, 041.05) Status: Active Unspecified Diagnosis Status: Active Unspecified Diagnosis Status: Active Upper respiratory infection, acute (J06.9, 465.9) Status: Active URI, acute (J06.9, 465.9) Status: Active UTI (urinary tract infection) (N39.0, 599.0) Status: Active Vitamin D deficiency (E55.9, 268.9) Status: Active Wheezing (R06.2, 786.07) Status: Active Medications Name Dates Details Acyclovir 800 MG Oral Tablet 1 (one) Tablet PO 5xday x 7 days for 7 days Quantity: 30 {Tablet} Refills: 0 Ordered:18-Feb-2018 Karla Stevenson Start : 18-Feb-2018 Active Anastrozole 1 MG Oral Tablet 1 qd (1 MG) Active CALCIUM + D, [id number]-[id number] (Oral Tablet) 1 bid for 0 days Refills: 0 Ordered:18-Dec-2008 Karla Santaan Fiorinal 50-325-40 MG Oral Capsule 1 Capsule q 6 hr prn for 0 days Quantity: 30 {Capsule} Refills: 0 Ordered:18-Jan-2018 Roby Jones DO, DO, Kathleen Start : 18-Jan-2018 Active Comments:vhpybiJ90.109C50.912 FreeStyle Lite Test In Vitro Strip 1 Strip bid for 0 days Quantity: 100 {Strip} Refills: 3 Ordered:07-Jul-2016 Roby Jones DO, DO, Kathleen Start : 07-Jul-2016 Active Comments:dx E11.65 LANCET DEVICE (Miscellaneous) 1 Misc bid for 0 days Quantity: 100 {Misc} Refills: 3 Ordered:31-May-2009 Karla Santana LPN Start : 31-May-2009 Active Comments:dx 250.00 LORazepam 1 MG Oral Tablet 1 q 8 hrs prn and 1/2 qhs (1 MG) Active LOTRISONE, 1-0.05% (External Cream) apply to affected area Cream Twice daily for 0 days Quantity: 1 {Bottle} Refills: 3 Ordered:11-Dec-2014 Karla Santana LPN Start : 11-Dec-2014 Active LOTRISONE, 1-0.05% (External Cream) apply to affected area Cream Twice daily for 0 days Quantity: 30 {Gram} Refills: 1 Ordered:11-Dec-2014 Karla Santana LPN Start : 11-Dec-2014 Active MetFORMIN HCl ER 500 MG Oral Tablet Extended Release 24 Hour 2 (two) Tablet ER 24HR qd for 0 days Quantity: 180 {Tablet} Refills: 3 Ordered:22-Feb-2017 Roby Jones DO, DO, Kathleen Start : 22-Feb-2017 Active MULTI-DAY (Oral Tablet) 1 qd Active Omeprazole 40 MG Oral Capsule Delayed Release 1 (one) Capsule DR qd for 90 days Quantity: 90 {Capsule} Refills: 3 Ordered:20-Feb-2018 Roby Jones DO, DO, Kathleen Start : 20-Feb-2018 Active Ondansetron HCl 8 MG Oral Tablet prn (8 MG) Active [place] 31G X 5 MM Miscellaneous 1 (one) Misc Misc qd for 0 days Quantity: 1 {Box} Refills: 3 Ordered:22-Feb-2017 Karla Santana LPN Start : 22-Feb-2017 Active ProAir HFA 108 (90 Base) MCG/ACT Inhalation Aerosol Solution 2 (two) Puff(s) Puff(s) tid prn for 0 days Quantity: 1 {Inhaler} Refills: 0 Ordered:28-Feb-2016 Jaquelin Shore CNP Start : 28-Feb-2016 Active PROzac 20 MG Oral Capsule 1 (one) Capsule qd for 90 days Quantity: 90 {Capsule} Refills: 3 Ordered:27-Jul-2017 Roby Jones DO, DO, Kathleen Start : 27-Jul-2017 Active TRAMADOL HCL, 50MG (Oral Tablet) 1 Tablet q 8 hr prn for 0 days Quantity: 30 {Tablet} Refills: 0 Ordered:17-Mar-2011 Karla Santana LPN Start : 17-Mar-2011 Active Comments:thirty VITAMIN D3, 2000UNIT (Oral Capsule) 3 (three) Capsule qd for 0 days Quantity: 30 {Capsule} Refills: 0 Ordered:19-Mar-2015 Roby Jones DO, DO, Kathleen Start : 19-Mar-2015 Active Comments:otc- new dose Albuterol Sulfate (2.5 MG/3ML) 0.083% Inhalation Nebulization Solution 1 Nebulized Soln Nebulized Soln q6hrs prn for 0 days Quantity: 1 {Box} Refills: 0 Ordered:21-Sep-2017 Karla Santana LPN Start : 02-Mar-2016 End : 21-Sep-2017 Inactive Alogliptin Benzoate 25 MG Oral Tablet 1 (one) Tablet daily for 30 days Quantity: 30 {Tablet} Refills: 3 Ordered:21-Sep-2017 Karla Santana LPN Start : 07-Mar-2017 End : 21-Sep-2017 Inactive Amoxicillin-Pot Clavulanate 875-125 MG Oral Tablet 1 Tablet two times daily for 10 days Quantity: 20 {Tablet} Refills: 0 Ordered:27-Oct-2016 Kandis Young DO Start : 27-Oct-2016 End : 06-Nov-2016 Inactive ASPIRIN CHILDRENS, 81MG (Oral Tablet Chewable) 1 (one) Tablet Chewable Daily for 0 days Refills: 0 Ordered:03-Aug-2006 Karla Santana LPN Start : 03-Aug-2006 End : 04-Oct-2007 Inactive Ativan 0.5 MG Oral Tablet 1 (one) Tablet Daily prn for 0 days Quantity: 90 {Tablet} Refills: 0 Ordered:22-Feb-2017 Gabriella Dey LPN Start : 07-Jul-2016 End : 22-Feb-2017 Inactive Comments:ninety BIAXIN, 500MG (Oral Tablet) 1 Tablet bid for 0 days Quantity: 20 {Tablet} Refills: 0 Ordered:29-Apr-2010 Karla Santana LPN Start : 03-Jan-2010 End : 29-Apr-2010 Inactive Cheratussin AC 100-10 MG/5ML Oral Syrup 10 Milliliter q 6 hr prn for 0 days Quantity: 200 {Milliliter} Refills: 0 Ordered:22-Feb-2017 Gabriella Dey LPN Start : 27-Oct-2016 End : 22-Feb-2017 Inactive Comments:two hundred CIPRO, 500MG (Oral Tablet) 1 Tablet Twice daily for 0 days Quantity: 20 {Tablet} Refills: 0 Ordered:18-Dec-2013 Karla Santana LPN Start : 26-Nov-2013 End : 18-Dec-2013 Inactive DARVOCET-N 100, 100-650MG (Oral Tablet) 1-2 Tablet Q 4hr/PRN for 0 days Quantity: 60 {Tablet} Refills: 0 Ordered:29-Apr-2010 Karla Santana LPN Start : 05-Jul-2009 End : 29-Apr-2010 Inactive ENBREL, 50MG/ML (Subcutaneous Solution) 1 (one) Solution Solution q week for 30 days Refills: 0 Ordered:26-Nov-2013 Angelica Sandoval Start : 19-Sep-2013 End : 26-Nov-2013 Inactive FLAX OIL XTRA (Oral Capsule) Inactive Fluconazole 150 MG Oral Tablet 1 (one) Tablet Tablet x1 for 0 days Quantity: 1 {Tablet} Refills: 0 Ordered:22-Feb-2017 Gabriella Dey LPN Start : 26-Aug-2015 End : 22-Feb-2017 Inactive Folic Acid 1 MG Oral Tablet 2 (two) Tablet qd for 30 days Refills: 0 Ordered:21-Sep-2017 Karla Santana LPN Start : 24-May-2012 End : 21-Sep-2017 Inactive GLUCOSAMINE CHONDR 500 COMPLEX (Oral Capsule) 1 bid Inactive GLUCOSAMINE CHONDROITIN (PO Tab) 1 bid for 0 days Refills: 0 Ordered:31-May-2007 Karla Santana LPN End : 31-May-2007 Inactive GUAIATUSSIN AC, 100-10MG/5ML (Oral Syrup) 1 Syrup 1 tsp qhs for 0 days Quantity: 6 {Ounce(s)} Refills: 0 Ordered:24-Aug-2009 Karla Santana LPN Start : 19-May-2009 Inactive HYCODEN (Oral Syrup) (Free Text) 1 tsp q 6 hr prn for 0 days Quantity: 60 {cc} Refills: 0 Ordered:05-Sep-2012 Karla Santana LPN Start : 11-Jan-2012 End : 05-Sep-2012 Inactive Comments:sixty IMITREX, 50MG (Oral Tablet) 1 Tablet PRN for 0 days Quantity: 30 {Tablet} Refills: 3 Ordered:27-Feb-2011 Karla Santana LPN Start : 12-Oct-2010 End : 27-Feb-2011 Inactive IMITREX, 50MG (Oral Tablet) 1 (one) Tablet Daily prn may repeat x 1 for 0 days Quantity: 14 {Tablet} Refills: 0 Ordered:29-Apr-2007 Karla Santana LPN Start : 29-Apr-2007 End : 04-Oct-2007 Inactive JANUMET XR, 100/1000 (Oral Tablet) (Free Text) 1 Tablet qd for 0 days Quantity: 30 {Tablet} Refills: 3 Ordered:05-Sep-2012 Karla Santana LPN Start : 08-Sep-2011 End : 05-Sep-2012 Inactive KOMBIGLYZE XR, 5-1000MG (Oral Tablet Extended Release 24 Hour) 1 Tablet ER 24HR qd for 0 days Quantity: 30 {Tablet_ER_24HR} Refills: 3 Ordered:19-Sep-2013 Karla Santana LPN Start : 19-Feb-2013 End : 19-Sep-2013 Inactive Leucovorin Calcium 25 MG Oral Tablet 1 Tablet q week for 30 days Refills: 0 Ordered:22-Feb-2017 Gabriella Dey LPN Start : 05-Sep-2012 End : 22-Feb-2017 Inactive LEVAQUIN, 500MG (Oral Tablet) 1 Tablet daily for 10 days Quantity: 10 {Tablet} Refills: 0 Ordered:17-Feb-2013 Jaquelin Shore CNP Start : 17-Feb-2013 End : 27-Feb-2013 Inactive Lidocaine-Prilocaine 2.5-2.5 % External Cream 1 q week prn (2.5-2.5 %) Inactive LIPITOR, 20MG (Oral Tablet) 1 (one) Tablet Daily for 0 days Quantity: 30 {Tablet} Refills: 3 Ordered:29-Apr-2010 Karla Santana LPN Start : 24-Aug-2009 End : 29-Apr-2010 Inactive LOVAZA, 1GM (Oral Capsule) 4 Capsule Daily for 0 days Quantity: 120 {Capsule} Refills: 3 Ordered:08-Mar-2007 Karla Santana LPN Start : 08-Mar-2007 End : 04-Oct-2007 Inactive MAXALT, 10MG (Oral Tablet) 1 Tablet one at onset of h/ and may repeat 2hrs later for 0 days Quantity: 14 {Tablet} Refills: 0 Ordered:17-Mar-2011 Karla Santana LPN Start : 27-Feb-2011 End : 17-Mar-2011 Inactive METAMUCIL, 0.52GM (Oral Capsule) 1 QD for 0 days Refills: 0 Ordered:04-Oct-2007 Karla Santana LPN End : 04-Oct-2007 Inactive Methotrexate 2.5 MG Oral Tablet 6 Tablet week for 30 days Refills: 0 Ordered:26-Oct-2016 Karla Santana LPN Start : 16-Jan-2013 End : 26-Oct-2016 Inactive METROGEL, 1% (External Gel) apply to affected area Gel bid for 0 days Quantity: 15 {gram(s)} Refills: 0 Ordered:05-Sep-2012 Karla Santana LPN Start : 01-Dec-2011 End : 05-Sep-2012 Inactive Naprosyn 250 MG Oral Tablet 2 (two) Tablet qd for 30 days Quantity: 30 {Tablet} Refills: 0 Ordered:22-Feb-2017 Gabriella Dey LPN Start : 18-Dec-2013 End : 22-Feb-2017 Inactive Nasonex 50 MCG/ACT Nasal Suspension 1 (one) Suspension Suspension bid for 0 days Quantity: 1 {Bottle} Refills: 0 Ordered:01-Feb-2018 Karla Santana LPN Start : 24-Feb-2014 End : 01-Feb-2018 Inactive NEURONTIN, 300MG (Oral Capsule) 1 Capsule bid/prn for 0 days Quantity: 60 {Capsule} Refills: 0 Ordered:18-Dec-2013 Karla Santana LPN Start : 05-Sep-2012 End : 18-Dec-2013 Inactive Otezla 10 & 20 & 30 MG Oral Tablet Therapy Pack 1 qd (10 & 20 & 30 MG) Inactive PLAQUENIL, 200MG (Oral Tablet) 1 Tablet bid for 30 days Refills: 0 Ordered:19-Sep-2013 Karla Santana LPN Start : 16-Jan-2013 End : 19-Sep-2013 Inactive PredniSONE 10 MG Oral Tablet 1 Tablet qd for 4 days Quantity: 4 {Tablet} Refills: 0 Ordered:06-Apr-2016 Karla Santana LPN Start : 02-Mar-2016 End : 06-Apr-2016 Inactive PREVACID, 30MG (Oral Capsule Delayed Release) 1 QD for 0 days Refills: 0 Ordered:28-May-2006 NROM Chávez Start : 28-May-2006 End : 03-Aug-2006 Inactive PYRIDIUM, 200MG (Oral Tablet) 1 (one) Tablet Twice daily PRN for 0 days Quantity: 20 {Tablet} Refills: 0 Ordered:27-May-2007 Karla Santana LPN Start : 27-May-2007 End : 04-Oct-2007 Inactive RELPAX, 20MG (Oral Tablet) 1 Tablet tab at onset of sommer as directed prn for 90 days Quantity: 12 {Tablet} Refills: 1 Ordered:21-Sep-2014 Roby Jones DO, DO, Kathleen Start : 21-Sep-2014 End : 21-Sep-2014 Inactive Simvastatin 20 MG Oral Tablet 1 Tablet qd for 90 days Quantity: 90 {Tablet} Refills: 3 Ordered:22-Feb-2017 Gabriella Dey LPN Start : 21-Aug-2014 End : 22-Feb-2017 Inactive SUMAtriptan Succinate 50 MG Oral Tablet 1 (one) Tablet Tablet at onset of h/a and may repeat if not gone in 2 hrs for 0 days Quantity: 9 {Tablet} Refills: 3 Ordered:01-Feb-2018 Karla Santana LPN Start : 21-Sep-2014 End : 01-Feb-2018 Inactive TAGAMET, 400MG (Oral Tablet) 1 uad/prn for 0 days Refills: 0 Ordered:04-Dec-2008 NORM Chávez End : 04-Dec-2008 Inactive Zithromax Z-Romario 250 MG Oral Tablet 1 (one) Tablet TAd for 0 days Quantity: 1 {Package} Refills: 0 Ordered:06-Apr-2016 Karla Santana LPN Start : 02-Mar-2016 End : 06-Apr-2016 Inactive FLEXERIL, 10MG (Oral Tablet) 1 (one) Tablet bid prn for 0 days Quantity: 20 {Tablet} Refills: 0 Ordered:17-Mar-2011 Karla Santana LPN Start : 17-Mar-2011 End : 16-Jan-2013 Discontinued Comments:This order discontinued per [facility]. Januvia 100 MG Oral Tablet 1 (one) Tablet daily for 30 days Quantity: 30 {Tablet} Refills: 3 Ordered:07-Mar-2017 Anaid Keith Start : 06-Mar-2017 End : 07-Mar-2017 Discontinued ONE TOUCH II SYSTEM ( Kit) uad for 0 days Refills: 0 Ordered:31-May-2009 Karla Santana LPN End : 31-May-2009 Discontinued Comments:This order discontinued per [facility]. ONE TOUCH TEST STRIPS (In Vitro Diagnostic Test) 1 bid for 0 days Refills: 0 Ordered:31-May-2009 Karla Santana LPN End : 31-May-2009 Discontinued Comments:This order discontinued per [facility]. PROVENTIL, 90MCG/ACT (Inhalation Aerosol Solution) 1 (one) Aerosol Soln 2puffs tid prn for 0 days Quantity: 1 {Aerosol_Soln} Refills: 0 Ordered:29-Apr-2010 Karla Santana LPN Start : 19-May-2009 End : 29-Apr-2010 Discontinued Comments:This order discontinued per [facility]. PROZAC, 10MG (Oral Tablet) 2 (two) Tablet Daily for 0 days Quantity: 60 {Tablet} Refills: 3 Ordered:24-Aug-2009 Roby Jones DO, DO, Kathleen Start : 24-Aug-2009 End : 19-Jan-2010 Discontinued Comments:This order discontinued per [facility]. Victoza 18 MG/3ML Subcutaneous Solution Pen-injector 1 (one) Milliliter qd for 0 days Quantity: 1 {Box} Refills: 3 Ordered:06-Mar-2017 Roby Jones DO, DO, Kathleen Start : 06-Mar-2017 End : 06-Mar-2017 Discontinued Comments:inject sq .6 qd for one week then inject 1.2 sq qd for one week then inject 1.8 sq qdn/v side effexct Allergies and Adverse Reactions Name Dates Details Augmentin *PENICILLINS* (Allergy) Reaction: Diarrhea Status: Active Iodinated Contrast (Allergy) Status: Active Comments: shellfish, Iodine, IV dyes Victoza *ANTIDIABETICS* (Allergy) Status: Active Past Medical History Name Dates Details Acute sinusitis, unspecified (J01.90, 461.9) Status: Inactive as of 22-Jun-2008 BMI 38.0-38.9,adult (Z68.38, V85.38) Status: Inactive as of 22-Feb-2017 BMI 39.0-39.9,adult (Z68.39, V85.39) Status: Inactive as of 22-Feb-2017 Bronchitis (J40, 490) Status: Inactive as of 06-Apr-2016 Candidiasis, unspecified (B37.9, 112.9) Status: Inactive as of 13-May-2009 Cough (R05, 786.2) Status: Inactive as of 06-Apr-2016 Cyst removal Comments: 12-20 Status: Inactive as of 13-May-2009 Cystitis, acute (N30.00, 595.0) Status: Inactive as of 22-Jun-2008 Dysuria (R30.0, 788.1) Status: Resolved as of 26-Jun-2008 Family history of diabetes mellitus (Z83.3, V18.0) Status: Inactive as of 04-Dec-2008 Headache (R51, 784.0) Status: Inactive as of 13-May-2009 Knee pain (M25.569, 719.46) Status: Inactive as of 24-Aug-2009 Low back pain potentially associated with radiculopathy (M54.5, 724.2) Status: Inactive as of 17-Mar-2011 RINGWORM, NOS (110.9) Status: Resolved as of 05-Jun-2011 Rosacea (L71.9, 695.3) Status: Inactive as of 05-Sep-2012 Sebaceous cyst (L72.3, 706.2) Status: Inactive as of 22-Jun-2008 Seborrheic dermatitis, unspecified (L21.9, 690.10) Comments: cont nizoral -- prn Status: Inactive as of 22-Jun-2008 Tension headache (G44.209, 307.81) Status: Inactive as of 22-Jun-2008 Throat pain (R07.0, 784.1) Status: Inactive as of 22-Jun-2008 Tinea cruris (B35.6, 110.3) Status: Inactive as of 22-Jun-2008 Procedures Date Value Details 19-Jan-2018 Emergency Department Summary Result: Comments: See Note; NOTES: [facility] Medical Records Department [address] [place] [address] Emergency Department Summary 01/18/18 2137 MR#: [id number] Acct: [id number] Name: JESSICA RODRIGUEZ Rep #: [id number] : 1955 62 From: Ritchie Mota MD PCP: Ruth Jones DO Status: DEP ER - ER Visit Summary Date of Service: 01/18/18 Chief Complaint: Cellulitis History of Present Illness: The patient is a 62 F presenting for evaluation secondary to cellulitis. Patient has an underlying history of breast cancer, status post bilateral mastoidectomy. Patient states that since she had her radiation treatments she has had one prior episode of cellulitis. Patient states that over the course last 24 hours she has had a outbreak of a rash on her right chest with fever and chills. Fever was as high as 100.4 at home. Patient states that when she had this in the past, she was given 2 g of Rocephin and a course of Augmentin and it seemed to alleviate her course of cellulitis . Patient denies any other infectious signs or symptoms at this point. Review of systems otherwise negative. Physical Examination: Vital signs notable for temperature of 101.7. Well-nourished female no acute distress. Examination of the patient's chest shows bilateral mastectomy scars. Patient has conley over the left chest which she states are from her radiation treatments, and has a cellulitic rash over her right hemithorax. No evidence of subcutaneous emphysema. No streaking. No fluctuance. Remainder of physical otherwise unremarkable. Test Results: CBC demonstrates leukocytosis 12.4, lactic aci d negative. Remainder the patient's laboratory workup unremarkable. Blood cultures are pending. Emergency Department Course and Treatment: Patient presented with cellulitis. Laboratory workup was unrem arkable except for leukocytosis. Patient was given Tylenol and 2 g of Rocephin. Repeat evaluation shows the patient to be nontoxic-appearing. At this point I believe she is appropriate for initial outpa tient treatment. She was given strict return instructions, was started on a course of Augmentin, and she will follow-up with her oncologist early next week. Disposition: Discharge Impression: 1. Right chest cellulitis This note was generated with [employer] dictation software. It may contain incorrect words, spelling, and punctuation that were not noted in review of the chart prior to signing ED Di sposition - Plan for ED Patient: Disposition: Home or Assisted Living Chief Complaint: Cellulitis Diagnosis: Cellulitis Instructions: Discharge Instructions for Cellulitis Prescriptions: Amox/Clavulan ate Tablet [Augmentin Tablet] 875 mg PO Q12H #20 tab Referrals: Ruth Jones DO [Primary Care Provider] - 3-5 Days What to do if you have Problems For any increased pain, shortness of breath, bl eeding, nausea or vomiting, chest pain, or any unexpected problems, contact your Primary Care Provider. Call [facility] ([phone]) or report to the closest Emergency Room. Call 911 if necessar y. 01/19/18 0029 <Electronically signed by Ritchie Mota MD> Date Ritchie Mota MD Cosigner Signature (If Indicated): Date CC: Ruht Jones DO 27-May-2017 Operative Report Result: Comments: See Note; NOTES: [facility] Medical Records Department [address] [place] [address] Operative Report 05/24/17 0900 MR#: [id number] Acct: [id number] Name: JIMENEZ RODRIGUEZ Rep #: [id number] : 1955 62 From: Hodan Chong MD PCP: Ruth Jones DO Status: DEP [facility] [place] [facility] Y Location: [facility] [facility] Report of Operation Date of Procedure: 05/24/17 Pre-Operative Diagnosis: history of left breast cancer, left axillary bulky adenopathy, left mastectomy dog ear Post-Operative Diagnosis: same as above Surgery/Procedure Performed:: Left axillary lymphadenectomy, revision of left maste ctomy dog ear Description of Surgical Findings:: bulky adenopathy of left axilla, left mastectomy lateral dog ear client support coordinator: Alma Swan Type of Anesthesia:: General Anesthesiologist: Gloria Fulton Specimen's removed: left axillary lymph node contents Drains: 15 Fr round drain Estimated Blood Loss (mL): 30 ml Fluids Replaced: 1200 ml RL Description of Procedure: After informed consent was given the patient was brought to the OR and placed in the supine position on the operating room table. Appropriate time out protocol was followed. She was then placed under general anesthesia. The patient's left chest and neck area was then prepped with a betadine surgical skin preparation and appropriate sterile surgical drapes were placed. A skin incision was made in the inferior portion of the hair bear ing area of the left axilla. It was carried through to the subcutaneous tissues using electrocautery. Any hemorrhage was controlled with electrocautery. A Weitlaner retractor was used for increased oper ative exposure. Blunt dissection was done to fully enter into the axillary fossa. The axillary vein was identified. Dissection was then continued inferior to the vein, ligating lymphatic vessels and sma ll blood vessels with the Harmonic scalpel. Dissection was continued laterally until the thoracodorsal bundle was identified. The axillary macie tissue was then carefully from this bundle and the bundle placed back into its proper position. The axillary macie tissue was retracted anteriorly and medially until the long thoracic nerve and vessels were identified. The axillary macie tissue was then from the surrounding fatty tissue and off the chest wall. The Harmonic scalpel was used to separate the macie tissue from the surrounding tissues. The tissue once was then forwa rded to pathology for analysis. Of note, there is bulky adenopathy noted in the axillary macie tissue. Hemostasis was controlled with electrocautery. The long thoracic nerve and thoracodorsal nerves wer e identified and were intact and functioning. Jason was applied into the axillary cavity. A 15 mm round drain was placed in the fossa and brought out through a separate skin incision and sutured to the skin using nylon suture. The deep axillary fascia was reapproximated with interrupted 2-0 vicryl suture. The skin edges were reapproximated with 3-0 vicryl suture in a horizontal mattress fashion and t hen further closed with running 4-0 monocryl in a subcuticular fashion. Cavilon and steristrips were then placed to reinforce the skin closure and proper sterile dressings were applied. The left breast dog ear revision was then done next. The previous incision site was incised and an ellipse of skin tissue was incised with a 15 blade scalpel incorporating the dog ear tissue. It was sharply carried stephanie n to the subcutaneous tissues. Hemostasis was controlled with electrocautery. The extra subcutaneous fatty tissue was excised by sharp dissection. The tissue was forwarded to pathology for analysis. The deep tissues were approximated with vicryl suture. Reapproximation of the skin would require a "Y shaped incisional scar. A horizontal mattress suture into the dermis was placed with 3 -0 vicryl suture. The skin incision was then closed with running subcuticular 4-0 monocryl suture. Cavilon and steristrips were then placed to reinforce the skin closure and proper sterile dressings wer e applied. - Complications none noted - Admit VTE Documentation VTE Present on Admission: Yes VTE Mechan Device Prophylaxis: SCD's 05/27/171950 <Electronically signed by Hodan Chong MD&#6 2; Date Hodan Chong MD CC: Ruth Jones DO; Hodan Chong MD Signed 24-May-2017 Discharge Instruction Result: Comments: See Note; NOTES: [facility] Medical Records Department [address] [place] [address] Instructions for Home/Discharge Instructions 05/24/17902 MR#: [id number] Acct: [id number] Name: JESSICA RODRIGUEZ Rep #: [id number] : 1955 62 From: Hodan Chong MD PCP: Ruth Jones DO Status: REG [facility] [place] Discharge Diet: No Restrictions Discharge Activity: Return to Normal A ctivity, May not drive while taking narcotic pain medications. Lifting Restrictions: no lifting with left arm greater than 20 pounds Call your doctor if your incision/area has: Continuous Slow Oozing, F oul Smelling Discharge Call your doctor if you observe: Fever of 101 or Higher Additional Dressing/Incision Instructions:: Leave dressings in place. Sponge bathe only until MAC drain is removed. Allergie s/Adverse Reactions: Allergies shellfish derived Allergy (Mild, Verified 05/23/17 08:38) Hives iodine Allergy (Verified 05/23/17 08:38) Hives liraglutide [From Victoza] Adverse Reaction (Verified 05/23 08:38) Nausea, VOMITING IV DYE Allergy (Mild, Uncoded 05/23/17 08:38) Hives Medications to take at Discharge Butalbital/Aspirin/Caffeine [Fiorinal 50-325-40 mg Capsule] 1 tab PO DAILY PRN PRN 08/25 Fluoxetine [Prozac] 20 mg PO DAILY 03/21/13 Multivitamins,Therapeutic [Multivitamin] 1 tablet PO QHS 03/21/13 Omeprazole [Prilosec] 40 mg PO DAILY 03/21/13 Acetaminophen [Tylenol Extra Strength] 5 00 - 1,000 mg PO Q6H PRN PRN 04/18/17 Apremilast [Otezla] 30 mg PO BID 04/18/17 Ascorbic Acid [Vitamin C] 500 mg PO MOWEFR 04/18/17 Aspirin/Acetaminophen/Caffeine [Excedrin Migraine Caplet] 1 each PO KS N PRN 04/18/17 Calm Day 3 cap PO DAILY 04/18/17 Cholecalciferol (Vitamin D3) [Vitamin D3] 2,000 unit PO DAILY 04/18/17 Ibuprofen 400 mg PO PRN PRN 04/18/17 Melatonin [Melatin] 6 mg PO QHS 04/18/17 Metfo rmin HCl 500 mg PO BID 04/18/17 Calcium (Elemental) [Os-Huy 500] 1,000 mg PO DAILY 05/23/17 Hydrocodone Bitart/Apap 5-325 [Sigel 5MG-325MG] 1 tab PO Q6H PRN PRN #20 tab 05/24/17 The following prescrip tions were given: Hydrocodone Bitart/Apap 5-325 [Sigel 5MG-325MG] 1 tab PO Q6H PRN PRN #20 tab PRN Reason: Pain Primary Care Physician: Ruth Jones DO [Primary Care Provider] - Please Follow Up Wit h: Hodan Chong MD - call When: to be seen on Sunday, please call for time, thank you 05/24/17905 <Electronically signed by Hodan Chong MD> Date Hodan Chong MD CC: Ruth Jones DO 20-Apr-2017 Operative Report Result: Comments: See Note; NOTES: [facility] Medical Records Department [address] [place] [id number] Operative Report 04/20/17 1454 MR#: [id number] Acct: [id number] Name: JIMENEZ RODRIGUEZ Rep #: [id number] : 1955 62 From: Palmer Hawkins MD PCP: Ruth Jones DO Status: REG [facility] [place] Y Location: [place] [address] Report of Operation Date of Procedure: 04/20/17 Pre-Operative Diagnosi s: left breast cancer Post-Operative Diagnosis: same Surgery/Procedure Performed:: right simple mastectomy client support coordinator: Britnty Mccullough Type of Anesthesia:: General Anesthesiologist: Trung Mills's removed: right breast Drains: 15 Fr round passive drain Estimated Blood Loss (mL): 100 ml Fluids Replaced: 1500 ml RL Description of Procedure: The patient s right breast was prepped and draped in the usual fashion. Timeout was performed verifying patient, site, position. The planned margin of excision for the mastectomy flaps were marked on the skin and incisions were made . Dissection was ca rried superior laterally down to the pectoralis muscle and dissection extended towards the axilla. Superior and inferior flaps were completed and raised. The breast tissue was taken down to the pectoral is fascia. The inferior portion of breast was then removed from the intercostal musculature and dissection carried superior laterally dividing the superficial tissues leading up to the axillary dissecti on . The specimen was sent whole . [address] [place] [address] drain were placed in the medial along the skin flap the lateral in the axilla and secured with 3-0 nylon suture. Skin flaps were approximated interrup murali 3-0 Vicryls. Skin was closed with running 4-0 monocryl. Drain dressings and incisional dressings were placed. All sponge and instrument counts were correct. The patient was extubated and brought to recovery room in stable condition. 04/20/17 1458 <Electronically signed by Palmer Hawkins MD> Date Palmer Hawkins MD CC: Ruth Jones DO; Hodan Chong MD; Palmer Hawkins MD Signed 29-Dec-2016 Shoulder min 2 Views Result: Comments: See Note; NOTES: [facility] Imaging Services [address] [place] [address] Shoulder min 2 Views MR#: [id number] Acct: [id number] Name: JESSICA RODRIGUEZ Rep #: [id number] : 1955 F 61 From: Perla Henderson MD PCP: Ruth Jones DO Status: REG CLI Study: Shoulder min 2 Views Date of Exam: 12/29/16 Exam# [id number] Ordering Dr: Natalia Otto MD STUDY: X-R AY - RIGHT SHOULDER REASON FOR EXAM: Female, 61 years old. History of arthritis, shoulder pain with no trauma TECHNIQUE: 4 view(s) of the shoulder. COMPARISON: None. __ FINDINGS: There is moderate degenerative arthrosis of the glenohumeral articulation. There is degenerative arthrosis of the acromioclavicular joint without inferior osseous spur formation. Normal ac romion. Narrowed humeral acromial distance. Normal humeral head and visualized proximal humerus. There is periarticular soft tissue calcification consistent with a calcific tendinitis. Normal visuali zed pulmonary apex. RAD/Shoulder min 2 Views IMPRESSION: Moderate degenerative changes. Calcific tendinitis. Electronically Signed: Perla wu MD at 5:27 EST , Service support , CC: Ruth Jones DO; Natalia Otto MD Art Gallery Director: Signed 26-Aug-2015 ELECTROCARDIOGRAM, COMPLETE (ECG) ([id number]) Comments: nsr no acute chg Result: [MEASUREMENTS ANALYSIS] Date of Test: 08/26/2015 07:49:01; Heart Rate: 62; KS Interval: 152; QRS: 88; QT Interval: 424; Corrected QT Interval (QTc): 427; P Wave [place]: 47; QRS Wave [place]: 61; T Wave [place]: 47; Blood Pressure: 130/70 [ECG DIAGNOSTIC STATEMENTS] Date of Test: 08/26/2015 07:49:01; Summary: Sinus Rhythm WITHIN NORMAL LIMITS 20-Aug-2013 Chest PA and Lateral Result: Comments: See Note; NOTES: [facility] Imaging Services [address] [place] [id number] Radiology Report MR#: [id number] Acct: [id number] Name: JESSICA RODRIGUEZ Rep #: [id number] : 1955 F 58 From: Edilberto Patel MD PCP: Ruth Jones DO Status: REG CLI Study: Chest PA and Lateral Date of Exam: 08/20/13 Exam# [id number] Ordering Dr: Natalia Otto MD STUDY: X-RAY CHEST REASON FOR EXAM: Female, 58 years old. Psoriatic arthropathy. TECHNIQUE: PA and lateral views of the chest. COMPARISON: Comparison is made with prior study dated March 21. FINDINGS: The lungs are clear and expanded. Calcified old granulomatous disease. There is no demonstrated pleural abnormality. Normal size heart. Normal mediastinum and willian. Normal visualized pulmonary arteries. Normal visualized aortic arch and descending thoracic aorta. There are diffuse degenerative changes of the visualized thoracic spine. Dex troscoliosis of the thoracic spine. Normal visualized ribs, clavicles, and shoulders. There is no demonstrated abnormality of the visualized soft tissue structures of the upper abdomen. IMPRESSION: No acute abnormality is present. Electronically Signed: Edilberto Patel MD at 10:10 EDT Tel [phone], Service support [phone], Fax RAD/Chest PA and Lateral IMPRESSION: No acute abnormality is present. Electronically Signed: Edilberto Patel MD at 10:10 EDT Tel [phone], Service support [phone], CC: Ruth Jones DO; Natalia Otto MD Art Gallery Director: Signed 22-Jan-2013 Abdomen Complete Result: Comments: See Note; NOTES: [facility] Imaging Services [address] [place] [address] Ultrasound Report MR#: [id number] Acct: [id number] Name: JESSICA RODRIGUEZ Rep #: [id number] : 1955 F 57 From: Edilberto Patel MD PCP: Status: REG CLI Study: Abdomen Complete Date of Exam: 01/22/13 Exam# [id number] Ordering Dr: Ruth Jones DO STUDY: ABDOMINAL UL TRASOUND REASON FOR EXAM: Female, 57 years old. Abdominal fullness. TECHNIQUE: Transabdominal ultrasound was performed with real-time and static montano scale imaging. TECHNICAL QUALITY: Adequate. COMPARISON: None. FINDINGS: Liver: The liver measures 14.7 cm. There is increased echogenicity consistent with fatty infiltration. The bile ducts are within no rmal limits. There is hepatic color flow. The direction of portal flow is hepatopetal. There is no demonstrated mass lesion. Gallbladder: Normal distended gallbladder. The gallbladder wall measures 2.3 mm. There is a negative sonographic Cheatham's sign. There is no pericholecystic fluid. There are no gallstones. I suspect a 5 mm polyp along the wall of the gallbladder. Common Bile Duct (C.B.D. ): The common bile duct measures 3.5 mm. Pancreas: Normal size of the head, body of the pancreas. The tail portion is obscured due to overlying bowel gas. There is normal echogenicity of the pancrea s. There is no demonstrated pancreatic mass or cyst. Spleen: Normal size of the spleen. The spleen measures 11.5 cm x 6 cm x 6.6 cm. A calcified granuloma is seen within it. Right Kidney: Normal s ize of the right kidney. The right kidney measures 9.5 cm. Normal renal cortex. The right cortex measures 1.0 cm. There is no demonstrated renal mass or cyst. There is no right hydronephrosis. Left Kidney: Normal size of the left kidney. The left kidney measures 12.2 cm. Normal renal cortex. The left cortex measures 1.5 cm. There is no demonstrated renal mass or cyst. There is no left hydronephr osis. Aorta: Unremarkable I.V.C.: The IVC is patent. There is no ascites. IMPRESSION: Fatty infiltration of the liver. Final millimeter polyp along the gal lbladder wall. Electronically Signed: Edilberto Patel M.D. at 10:28 EST , Service support [phone], CC: Ruth Jones DO Art Gallery Director: Signed Immunization Name Dates Details Tdap (7 years and up) on: 26-Jun-2008 Comments: Lot #: [id number] date: mount given:0.5 mlRoute: IMSite given: Right deltoidGiven by: Jonathan Woodruff LPN Family History Unknown Family Member Name Dates Details Father Comments: DM, Heart Dz, Cholestrol, arthlosclorsis Status: Active Maternal Grandmother Comments: BR CA Status: Active Social History Name Dates Details Alcohol Use Comments: Occasional alcohol use Status: Active Caffeine Use Comments: 2-4 QD Status: Active 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, 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 Exercise History Comments: Moderate, walking 2-3 Status: Active Living Situation Comments: , Lives with spouse Status: Active No Drug Use Status: Active Tobacco/Smoke Exposure Comments: quit 15 yrs agosame status 06/05/11 Status: Active Vital Signs Date Test Result Details :50 Temperature 97.8 f Comments: Method: Temporal Pulse 69 /min Comments: Pattern: Regular Respiration Rate 16 /min Comments: Pattern: Unlabored O2 SAT 97 % Comments: Room air BP Systolic 118 mm[Hg] Comments: Patient Position: Sitting; Cuff Location: Left Arm; Cuff Size: Standard BP Diastolic 60 mm[Hg] Comments: Patient Position: Sitting; Cuff Location: Left Arm; Cuff Size: Standard Weight 186.125 lb Height 61.5 in Body Mass Index Calculated 34.6 kg/m2 Body Surface Area Calculated 1.84 m2 [id number] Pulse 72 /min Comments: Pattern: Regular Respiration Rate 18 /min Comments: Pattern: Unlabored O2 SAT 97 % Comments: Room air BP Systolic 128 mm[Hg] Comments: Patient Position: Sitting; Cuff Location: Left Arm; Cuff Size: Small BP Diastolic 78 mm[Hg] Comments: Patient Position: Sitting; Cuff Location: Left Arm; Cuff Size: Small Weight 186.125 lb Height 61.5 in Body Mass Index Calculated 34.6 kg/m2 Body Surface Area Calculated 1.84 m2 :21 Pulse 74 /min Comments: Pattern: Regular Respiration Rate 18 /min Comments: Pattern: Unlabored O2 SAT 96 % Comments: Room air BP Systolic 128 mm[Hg] Comments: Patient Position: Sitting; Cuff Location: Right Arm; Cuff Size: Large BP Diastolic 64 mm[Hg] Comments: Patient Position: Sitting; Cuff Location: Right Arm; Cuff Size: Large Weight 190.375 lb Height 61.5 in Body Mass Index Calculated 35.39 kg/m2 Body Surface Area Calculated 1.86 m2 :58 Pulse 74 /min Comments: Pattern: Regular Respiration Rate 16 /min Comments: Pattern: Unlabored O2 SAT 97 % Comments: Room air BP Systolic 140 mm[Hg] Comments: Patient Position: Sitting; Cuff Location: Left Arm; Cuff Size: Standard BP Diastolic 72 mm[Hg] Comments: Patient Position: Sitting; Cuff Location: Left Arm; Cuff Size: Standard Weight 200 lb Height 61.5 in Body Mass Index Calculated 37.18 kg/m2 Body Surface Area Calculated 1.9 m2 :41 Temperature 96.4 f Comments: Method: Oral Pulse 94 /min Comments: Pattern: Regular O2 SAT 96 % Comments: Room air BP Systolic 148 mm[Hg] Comments: Patient Position: Sitting; Cuff Location: Left Arm; Cuff Size: Standard BP Diastolic 82 mm[Hg] Comments: Patient Position: Sitting; Cuff Location: Left Arm; Cuff Size: Standard Weight 200.5 lb Height 61.5 in Body Mass Index Calculated 37.27 kg/m2 Body Surface Area Calculated 1.9 m2 :12 Temperature 97.7 f Comments: Method: Temporal Pulse 82 /min Comments: Pattern: Regular Respiration Rate 18 /min Comments: Pattern: Unlabored O2 SAT 94 % Comments: Room air BP Systolic 132 mm[Hg] Comments: Patient Position: Sitting; Cuff Location: Left Arm; Cuff Size: Large BP Diastolic 82 mm[Hg] Comments: Patient Position: Sitting; Cuff Location: Left Arm; Cuff Size: Large Weight 200.5 lb Height 61.5 in Body Mass Index Calculated 37.27 kg/m2 Body Surface Area Calculated 1.9 m2 :25 Pulse 65 /min Comments: Pattern: Regular Respiration Rate 18 /min Comments: Pattern: Unlabored O2 SAT 95 % Comments: Room air BP Systolic 128 mm[Hg] Comments: Patient Position: Sitting; Cuff Location: Left Arm; Cuff Size: Large BP Diastolic 82 mm[Hg] Comments: Patient Position: Sitting; Cuff Location: Left Arm; Cuff Size: Large Weight 207.125 lb Height 61.5 in Body Mass Index Calculated 38.5 kg/m2 Body Surface Area Calculated 1.93 m2 :07 Temperature 97.8 f Comments: Method: Temporal Pulse 84 /min Comments: Pattern: Regular Respiration Rate 18 /min Comments: Pattern: Unlabored O2 SAT 97 % Comments: Room air BP Systolic 132 mm[Hg] Comments: Patient Position: Sitting; Cuff Location: Left Arm; Cuff Size: Large BP Diastolic 82 mm[Hg] Comments: Patient Position: Sitting; Cuff Location: Left Arm; Cuff Size: Large Weight 212.5 lb Height 61.5 in Body Mass Index Calculated 39.5 kg/m2 Body Surface Area Calculated 1.95 m2 :40 Pulse 76 /min Comments: Pattern: Regular Respiration Rate 18 /min Comments: Pattern: Unlabored O2 SAT 96 % Comments: Room air BP Systolic 124 mm[Hg] Comments: Patient Position: Sitting; Cuff Location: Left Arm; Cuff Size: Large BP Diastolic 62 mm[Hg] Comments: Patient Position: Sitting; Cuff Location: Left Arm; Cuff Size: Large Weight 217 lb Height 61.5 in Body Mass Index Calculated 40.34 kg/m2 Body Surface Area Calculated 1.97 m2 :13 Temperature 98 f Pulse 74 /min Comments: Pattern: Regular Respiration Rate 16 /min Comments: Pattern: Unlabored O2 SAT 97 % Comments: Room air BP Systolic 136 mm[Hg] Comments: Patient Position: Sitting; Cuff Location: Left Arm; Cuff Size: Standard BP Diastolic 80 mm[Hg] Comments: Patient Position: Sitting; Cuff Location: Left Arm; Cuff Size: Standard Weight 217 lb Height 61.5 in Body Mass Index Calculated 40.34 kg/m2 Body Surface Area Calculated 1.97 m2 :52 Temperature 96.4 f Comments: Method: Tympanic Pulse 66 /min Comments: Pattern: Regular Respiration Rate 18 /min Comments: Pattern: Unlabored O2 SAT 98 % Comments: Room air BP Systolic 132 mm[Hg] Comments: Patient Position: Sitting; Cuff Location: Left Arm; Cuff Size: Standard BP Diastolic 72 mm[Hg] Comments: Patient Position: Sitting; Cuff Location: Left Arm; Cuff Size: Standard Weight 207.5 lb Height 61.5 in Body Mass Index Calculated 38.57 kg/m2 Body Surface Area Calculated 1.93 m2 :03 Pulse 67 /min Comments: Pattern: Regular Respiration Rate 18 /min Comments: Pattern: Unlabored O2 SAT 98 % Comments: Room air BP Systolic 128 mm[Hg] Comments: Patient Position: Sitting; Cuff Location: Left Arm; Cuff Size: Standard BP Diastolic 78 mm[Hg] Comments: Patient Position: Sitting; Cuff Location: Left Arm; Cuff Size: Standard Weight 207.5 lb Height 61.5 in Body Mass Index Calculated 38.57 kg/m2 Body Surface Area Calculated 1.93 m2 :04 Temperature 97.8 f Comments: Method: Oral Pulse 62 /min Comments: Pattern: Regular Respiration Rate 16 /min Comments: Pattern: Unlabored O2 SAT 97 % Comments: Room air BP Systolic 130 mm[Hg] Comments: Patient Position: Sitting; Cuff Location: Left Arm; Cuff Size: Large BP Diastolic 70 mm[Hg] Comments: Patient Position: Sitting; Cuff Location: Left Arm; Cuff Size: Large Weight 204.125 lb Height 61.5 in Body Mass Index Calculated 37.94 kg/m2 Body Surface Area Calculated 1.92 m2 :15 Pulse 75 /min Comments: Pattern: Regular Respiration Rate 16 /min Comments: Pattern: Unlabored O2 SAT 98 % Comments: Room air BP Systolic 130 mm[Hg] Comments: Patient Position: Sitting; Cuff Location: Left Arm; Cuff Size: Large BP Diastolic 78 mm[Hg] Comments: Patient Position: Sitting; Cuff Location: Left Arm; Cuff Size: Large Weight 216.125 lb Height 61.5 in Body Mass Index Calculated 40.17 kg/m2 Body Surface Area Calculated 1.96 m2 :11 Temperature 98.1 f Comments: Method: Temporal Pulse 78 /min Comments: Pattern: Regular Respiration Rate 16 /min Comments: Pattern: Unlabored O2 SAT 98 % Comments: Room air BP Systolic 140 mm[Hg] Comments: Patient Position: Sitting; Cuff Location: Left Arm; Cuff Size: Large BP Diastolic 80 mm[Hg] Comments: Patient Position: Sitting; Cuff Location: Left Arm; Cuff Size: Large Weight 213.375 lb Height 61.5 in Body Mass Index Calculated 39.66 kg/m2 Body Surface Area Calculated 1.95 m2 :56 Temperature 95.7 f Comments: Method: Temporal Pulse 64 /min Comments: Pattern: Regular Respiration Rate 18 /min Comments: Pattern: Unlabored O2 SAT 96 % Comments: Room air BP Systolic 138 mm[Hg] Comments: Patient Position: Sitting; Cuff Location: Left Arm; Cuff Size: Large BP Diastolic 68 mm[Hg] Comments: Patient Position: Sitting; Cuff Location: Left Arm; Cuff Size: Large Weight 209.5 lb Height 61.5 in Body Mass Index Calculated 38.94 kg/m2 Body Surface Area Calculated 1.94 m2 :53 Temperature 97.2 f Comments: Method: Oral Pulse 80 /min Comments: Pattern: Regular Respiration Rate 18 /min O2 SAT 98 % Comments: Room air BP Systolic 130 mm[Hg] Comments: Patient Position: Sitting; Cuff Location: Left Arm; Cuff Size: Standard BP Diastolic 78 mm[Hg] Comments: Patient Position: Sitting; Cuff Location: Left Arm; Cuff Size: Standard Weight 217.25 lb Height 61.5 in Body Mass Index Calculated 40.38 kg/m2 Body Surface Area Calculated 1.97 m2 :26 Pulse 68 /min Comments: Pattern: Regular Respiration Rate 20 /min Comments: Pattern: Unlabored O2 SAT 98 % Comments: Room air BP Systolic 120 mm[Hg] Comments: Patient Position: Sitting; Cuff Location: Left Arm; Cuff Size: Large BP Diastolic 60 mm[Hg] Comments: Patient Position: Sitting; Cuff Location: Left Arm; Cuff Size: Large Weight 217.25 lb Height 61.5 in Body Mass Index Calculated 40.38 kg/m2 Body Surface Area Calculated 1.97 m2 :05 Temperature 98.3 f Comments: Method: Oral Pulse 68 /min Comments: Pattern: Regular Respiration Rate 18 /min O2 SAT 97 % Comments: Room air BP Systolic 136 mm[Hg] Comments: Patient Position: Sitting; Cuff Location: Left Arm; Cuff Size: Standard BP Diastolic 72 mm[Hg] Comments: Patient Position: Sitting; Cuff Location: Left Arm; Cuff Size: Standard Weight 215.25 lb Height 61.5 in Body Mass Index Calculated 40.01 kg/m2 Body Surface Area Calculated 1.96 m2 :21 Temperature 98.9 f Comments: Method: Oral Pulse 71 /min Comments: Pattern: Regular Respiration Rate 17 /min Comments: Pattern: Unlabored O2 SAT 97 % Comments: Room air BP Systolic 122 mm[Hg] Comments: Patient Position: Sitting; Cuff Location: Left Arm BP Diastolic 60 mm[Hg] Comments: Patient Position: Sitting; Cuff Location: Left Arm Weight 215.25 lb Height 61.5 in Body Mass Index Calculated 40.01 kg/m2 Body Surface Area Calculated 1.96 m2 :15 Temperature 96.6 f Comments: Method: Oral Pulse 68 /min Comments: Pattern: Regular Respiration Rate 18 /min Comments: Pattern: Unlabored O2 SAT 98 % Comments: Room air BP Systolic 128 mm[Hg] Comments: Patient Position: Sitting; Cuff Location: Left Arm; Cuff Size: Standard BP Diastolic 62 mm[Hg] Comments: Patient Position: Sitting; Cuff Location: Left Arm; Cuff Size: Standard Weight 214.3125 lb Height 61.5 in Body Mass Index Calculated 39.84 kg/m2 Body Surface Area Calculated 1.96 m2 :08 Temperature 97 f Comments: Method: Temporal Pulse 80 /min Comments: Pattern: Regular Respiration Rate 16 /min Comments: Pattern: Unlabored O2 SAT 97 % Comments: Room air BP Systolic 142 mm[Hg] Comments: Patient Position: Sitting; Cuff Location: Left Arm; Cuff Size: Standard BP Diastolic 70 mm[Hg] Comments: Patient Position: Sitting; Cuff Location: Left Arm; Cuff Size: Standard Weight 212.3125 lb Height 61.5 in Body Mass Index Calculated 39.47 kg/m2 Body Surface Area Calculated 1.95 m2 :27 Pulse 79 /min Comments: Pattern: Regular Respiration Rate 18 /min Comments: Pattern: Unlabored O2 SAT 98 % Comments: Room air BP Systolic 138 mm[Hg] Comments: Patient Position: Sitting; Cuff Location: Left Arm; Cuff Size: Large BP Diastolic 60 mm[Hg] Comments: Patient Position: Sitting; Cuff Location: Left Arm; Cuff Size: Large Weight 210.3125 lb Height 61.5 in Body Mass Index Calculated 39.09 kg/m2 Body Surface Area Calculated 1.94 m2 :22 Pulse 69 /min Comments: Pattern: Regular Respiration Rate 18 /min Comments: Pattern: Unlabored O2 SAT 99 % Comments: Room air BP Systolic 118 mm[Hg] Comments: Patient Position: Sitting; Cuff Location: Left Arm; Cuff Size: Large BP Diastolic 66 mm[Hg] Comments: Patient Position: Sitting; Cuff Location: Left Arm; Cuff Size: Large Weight 208.5 lb Height 61.5 in Body Mass Index Calculated 38.76 kg/m2 Body Surface Area Calculated 1.93 m2 :33 Pulse 74 /min Comments: Pattern: Regular Respiration Rate 18 /min Comments: Pattern: Unlabored O2 SAT 97 % Comments: Room air BP Systolic 142 mm[Hg] Comments: Patient Position: Sitting; Cuff Location: Left Arm; Cuff Size: Large BP Diastolic 78 mm[Hg] Comments: Patient Position: Sitting; Cuff Location: Left Arm; Cuff Size: Large Weight 206.3125 lb Height 61.5 in Body Mass Index Calculated 38.35 kg/m2 Body Surface Area Calculated 1.93 m2 :24 Temperature 98.6 f Comments: Method: Oral Pulse 78 /min Comments: Pattern: Regular Respiration Rate 16 /min Comments: Pattern: Unlabored BP Systolic 136 mm[Hg] Comments: Patient Position: Sitting; Cuff Location: Left Arm; Cuff Size: Standard BP Diastolic 78 mm[Hg] Comments: Patient Position: Sitting; Cuff Location: Left Arm; Cuff Size: Standard Weight 209.375 lb Height 61.5 in Body Mass Index Calculated 38.92 kg/m2 Body Surface Area Calculated 1.94 m2 :23 Pulse 72 /min Comments: Pattern: Regular Respiration Rate 18 /min Comments: Pattern: Unlabored O2 SAT 98 % Comments: Room air BP Systolic 128 mm[Hg] Comments: Patient Position: Sitting; Cuff Location: Left Arm; Cuff Size: Large BP Diastolic 62 mm[Hg] Comments: Patient Position: Sitting; Cuff Location: Left Arm; Cuff Size: Large Weight 209.375 lb Height 61.5 in Body Mass Index Calculated 38.92 kg/m2 Body Surface Area Calculated 1.94 m2 :07 Temperature 96.8 f Comments: Method: Temporal Pulse 85 /min Comments: Pattern: Regular Respiration Rate 18 /min Comments: Pattern: Unlabored O2 SAT 97 % Comments: Room air BP Systolic 140 mm[Hg] Comments: Patient Position: Sitting; Cuff Location: Left Arm; Cuff Size: Standard BP Diastolic 70 mm[Hg] Comments: Patient Position: Sitting; Cuff Location: Left Arm; Cuff Size: Standard Weight 211.5 lb Height 61.5 in Body Mass Index Calculated 39.32 kg/m2 Body Surface Area Calculated 1.95 m2 :29 Temperature 97.6 f Comments: Method: Tympanic Pulse 78 /min Comments: Pattern: Regular Respiration Rate 16 /min Comments: Pattern: Unlabored O2 SAT 98 % Comments: Room air BP Systolic 126 mm[Hg] Comments: Patient Position: Sitting; Cuff Location: Left Arm; Cuff Size: Large BP Diastolic 76 mm[Hg] Comments: Patient Position: Sitting; Cuff Location: Left Arm; Cuff Size: Large Weight 211.5 lb Height 61.5 in Body Mass Index Calculated 39.32 kg/m2 Body Surface Area Calculated 1.95 m2 :12 Temperature 97.8 f Comments: Method: Oral Pulse 64 /min Comments: Pattern: Regular Respiration Rate 20 /min Comments: Pattern: Unlabored BP Systolic 122 mm[Hg] Comments: Patient Position: Sitting; Cuff Location: Left Arm; Cuff Size: Large BP Diastolic 68 mm[Hg] Comments: Patient Position: Sitting; Cuff Location: Left Arm; Cuff Size: Large Weight 214.125 lb Height 61.5 in Body Mass Index Calculated 39.8 kg/m2 Body Surface Area Calculated 1.96 m2 :16 Temperature 98 f Comments: Method: Oral Pulse 75 /min Comments: Pattern: Regular Respiration Rate 20 /min Comments: Pattern: Unlabored O2 SAT 97 % Comments: Room air BP Systolic 120 mm[Hg] Comments: Patient Position: Sitting; Cuff Location: Left Arm; Cuff Size: Large BP Diastolic 62 mm[Hg] Comments: Patient Position: Sitting; Cuff Location: Left Arm; Cuff Size: Large Weight 213.5 lb Height 61.5 in Body Mass Index Calculated 39.69 kg/m2 Body Surface Area Calculated 1.95 m2 :23 Temperature 98.1 f Comments: Method: Oral Pulse 64 /min Comments: Pattern: Regular Respiration Rate 20 /min Comments: Pattern: Unlabored BP Systolic 120 mm[Hg] Comments: Patient Position: Sitting; Cuff Location: Left Arm; Cuff Size: Large BP Diastolic 62 mm[Hg] Comments: Patient Position: Sitting; Cuff Location: Left Arm; Cuff Size: Large Weight 213.5 lb Height 61.5 in Body Mass Index Calculated 39.69 kg/m2 Body Surface Area Calculated 1.95 m2 :44 Pulse 80 /min Comments: Pattern: Regular Respiration Rate 20 /min Comments: Pattern: Unlabored BP Systolic 122 mm[Hg] Comments: Patient Position: Sitting; Cuff Location: Left Arm; Cuff Size: Large BP Diastolic 58 mm[Hg] Comments: Patient Position: Sitting; Cuff Location: Left Arm; Cuff Size: Large Weight 216 lb Height 61.5 in Body Mass Index Calculated 40.15 kg/m2 Body Surface Area Calculated 1.96 m2 :34 Temperature 98.4 f Comments: Method: Oral Pulse 66 /min Comments: Pattern: Regular Respiration Rate 18 /min Comments: Pattern: Unlabored BP Systolic 138 mm[Hg] Comments: Patient Position: Sitting; Cuff Location: Left Arm; Cuff Size: Large BP Diastolic 70 mm[Hg] Comments: Patient Position: Sitting; Cuff Location: Left Arm; Cuff Size: Large Weight 213.375 lb Height 61.5 in Body Mass Index Calculated 39.66 kg/m2 Body Surface Area Calculated 1.95 m2 :14 Temperature 97 f Comments: Method: Oral Pulse 80 /min Comments: Pattern: Regular Respiration Rate 20 /min Comments: Pattern: Unlabored BP Systolic 128 mm[Hg] Comments: Patient Position: Sitting; Cuff Location: Left Arm; Cuff Size: Large BP Diastolic 78 mm[Hg] Comments: Patient Position: Sitting; Cuff Location: Left Arm; Cuff Size: Large Weight 209.4375 lb Height 61.5 in Body Mass Index Calculated 38.93 kg/m2 Body Surface Area Calculated 1.94 m2 :53 Temperature 98.6 f Comments: Method: Oral Pulse 84 /min Comments: Pattern: Regular Respiration Rate 16 /min Comments: Pattern: Unlabored BP Systolic 142 mm[Hg] Comments: Patient Position: Sitting; Cuff Location: Left Arm; Cuff Size: Standard BP Diastolic 80 mm[Hg] Comments: Patient Position: Sitting; Cuff Location: Left Arm; Cuff Size: Standard Weight 211.3125 lb Height 61.5 in Body Mass Index Calculated 39.28 kg/m2 Body Surface Area Calculated 1.95 m2 :25 Temperature 97.9 f Comments: Method: Oral Pulse 6816 /min Comments: Pattern: Regular Respiration Rate 16 /min Comments: Pattern: Unlabored BP Systolic 122 mm[Hg] Comments: Patient Position: Sitting; Cuff Location: Left Arm; Cuff Size: Standard BP Diastolic 76 mm[Hg] Comments: Patient Position: Sitting; Cuff Location: Left Arm; Cuff Size: Standard Weight 211.3125 lb Height 61.5 in Body Mass Index Calculated 39.28 kg/m2 Body Surface Area Calculated 1.95 m2 :26 Temperature 97.8 f Comments: Method: Oral Pulse 68 /min Comments: Pattern: Regular Respiration Rate 20 /min Comments: Pattern: Unlabored BP Systolic 140 mm[Hg] Comments: Patient Position: Sitting; Cuff Location: Left Arm; Cuff Size: Large BP Diastolic 78 mm[Hg] Comments: Patient Position: Sitting; Cuff Location: Left Arm; Cuff Size: Large Weight 211.3125 lb Height 61.5 in Body Mass Index Calculated 39.28 kg/m2 Body Surface Area Calculated 1.95 m2 :47 Temperature 98.8 f Comments: Method: Oral Pulse 68 /min Comments: Pattern: Regular Respiration Rate 20 /min Comments: Pattern: Unlabored BP Systolic 122 mm[Hg] Comments: Patient Position: Sitting; Cuff Location: Left Arm; Cuff Size: Large BP Diastolic 60 mm[Hg] Comments: Patient Position: Sitting; Cuff Location: Left Arm; Cuff Size: Large Weight 210.125 lb :24 Pulse 72 /min Comments: Pattern: Regular Respiration Rate 20 /min Comments: Pattern: Unlabored BP Systolic 118 mm[Hg] Comments: Patient Position: Sitting; Cuff Location: Left Arm; Cuff Size: Large BP Diastolic 72 mm[Hg] Comments: Patient Position: Sitting; Cuff Location: Left Arm; Cuff Size: Large Weight 210.125 lb :17 Temperature 98.4 f Comments: Method: Oral Pulse 70 /min Comments: Pattern: Regular Respiration Rate 18 /min Comments: Pattern: Unlabored BP Systolic 120 mm[Hg] Comments: Patient Position: Sitting; Cuff Location: Left Arm; Cuff Size: Standard BP Diastolic 76 mm[Hg] Comments: Patient Position: Sitting; Cuff Location: Left Arm; Cuff Size: Standard Weight 222 lb :29 Pulse 64 /min Comments: Pattern: Regular Respiration Rate 20 /min Comments: Pattern: Unlabored BP Systolic 122 mm[Hg] Comments: Patient Position: Sitting; Cuff Location: Left Arm; Cuff Size: Large BP Diastolic 62 mm[Hg] Comments: Patient Position: Sitting; Cuff Location: Left Arm; Cuff Size: Large Weight 222.375 lb Height 61.5 in Body Mass Index Calculated 41.34 kg/m2 Body Surface Area Calculated 1.99 m2 :57 Temperature 98.1 f Comments: Method: Oral Pulse 66 /min Comments: Pattern: Regular Respiration Rate 18 /min Comments: Pattern: Unlabored BP Systolic 128 mm[Hg] Comments: Patient Position: Sitting; Cuff Location: Left Arm; Cuff Size: Large BP Diastolic 70 mm[Hg] Comments: Patient Position: Sitting; Cuff Location: Left Arm; Cuff Size: Large Weight 217.5 lb Height 61.5 in Body Mass Index Calculated 40.43 kg/m2 Body Surface Area Calculated 1.97 m2 Head Circumference 0.00 cm :00 Pulse 74 /min Comments: Pattern: Regular Respiration Rate 18 /min Comments: Pattern: Unlabored BP Systolic 124 mm[Hg] Comments: Patient Position: Sitting; Cuff Location: Left Arm; Cuff Size: Large BP Diastolic 78 mm[Hg] Comments: Patient Position: Sitting; Cuff Location: Left Arm; Cuff Size: Large Weight 0 lb Height 0 in Head Circumference 0.00 cm :01 Temperature 97.8 f Comments: Method: Oral Pulse 80 /min Comments: Pattern: Regular Respiration Rate 20 /min Comments: Pattern: Unlabored BP Systolic 122 mm[Hg] Comments: Patient Position: Sitting; Cuff Location: Left Arm; Cuff Size: Large BP Diastolic 76 mm[Hg] Comments: Patient Position: Sitting; Cuff Location: Left Arm; Cuff Size: Large Weight 216 lb Height 61.5 in Body Mass Index Calculated 40.15 kg/m2 Body Surface Area Calculated 1.96 m2 Head Circumference 0.00 cm :00 Temperature 98.3 f Comments: Method: Oral Pulse 64 /min Comments: Pattern: Regular Respiration Rate 18 /min Comments: Pattern: Unlabored BP Systolic 122 mm[Hg] Comments: Patient Position: Sitting; Cuff Location: Left Arm; Cuff Size: Large BP Diastolic 64 mm[Hg] Comments: Patient Position: Sitting; Cuff Location: Left Arm; Cuff Size: Large Weight 216.3125 lb Height 61.5 in Body Mass Index Calculated 40.21 kg/m2 Body Surface Area Calculated 1.96 m2 Head Circumference 0.00 cm :21 Pulse 60 /min Comments: Pattern: Regular Respiration Rate 20 /min Comments: Pattern: Unlabored BP Systolic 128 mm[Hg] Comments: Patient Position: Sitting; Cuff Location: Left Arm; Cuff Size: Standard BP Diastolic 62 mm[Hg] Comments: Patient Position: Sitting; Cuff Location: Left Arm; Cuff Size: Standard Weight 216.3125 lb Height 61.5 in Body Mass Index Calculated 40.21 kg/m2 Body Surface Area Calculated 1.96 m2 Head Circumference 0.00 cm :16 Temperature 97.3 f Comments: Method: Oral Pulse 78 /min Comments: Pattern: Regular Respiration Rate 18 /min Comments: Pattern: Unlabored O2 SAT 96 % Comments: Room air BP Systolic 132 mm[Hg] Comments: Patient Position: Sitting; Cuff Location: Left Arm; Cuff Size: Standard BP Diastolic 78 mm[Hg] Comments: Patient Position: Sitting; Cuff Location: Left Arm; Cuff Size: Standard Weight 218.375 lb Height 0 in Head Circumference 0.00 cm :57 Pulse 64 /min Comments: Pattern: Regular Respiration Rate 20 /min Comments: Pattern: Unlabored BP Systolic 122 mm[Hg] Comments: Patient Position: Sitting; Cuff Location: Left Arm; Cuff Size: Standard BP Diastolic 78 mm[Hg] Comments: Patient Position: Sitting; Cuff Location: Left Arm; Cuff Size: Standard Weight 218.375 lb Height 0 in Head Circumference 0.00 cm :22 Pulse 72 /min Comments: Pattern: Regular Respiration Rate 18 /min Comments: Pattern: Labored BP Systolic 132 mm[Hg] Comments: Patient Position: Sitting; Cuff Location: Left Arm; Cuff Size: Large BP Diastolic 70 mm[Hg] Comments: Patient Position: Sitting; Cuff Location: Left Arm; Cuff Size: Large Weight 217.5625 lb Height 0 in Head Circumference 0.00 cm :12 Pulse 80 /min Comments: Pattern: Regular Respiration Rate 20 /min Comments: Pattern: Unlabored BP Systolic 122 mm[Hg] Comments: Patient Position: Sitting; Cuff Location: Left Arm; Cuff Size: Large BP Diastolic 78 mm[Hg] Comments: Patient Position: Sitting; Cuff Location: Left Arm; Cuff Size: Large Weight 213.3125 lb Height 61.5 in Body Mass Index Calculated 39.65 kg/m2 Body Surface Area Calculated 1.95 m2 Head Circumference 0.00 cm :34 Temperature 98.1 f Comments: Method: Oral Pulse 76 /min Comments: Pattern: Regular Respiration Rate 20 /min Comments: Pattern: Unlabored BP Systolic 118 mm[Hg] Comments: Patient Position: Sitting; Cuff Location: Left Arm; Cuff Size: Standard BP Diastolic 80 mm[Hg] Comments: Patient Position: Sitting; Cuff Location: Left Arm; Cuff Size: Standard Weight 0 lb Height 0 in Head Circumference 0.00 cm :05 Pulse 72 /min Comments: Pattern: Regular Respiration Rate 20 /min Comments: Pattern: Unlabored BP Systolic 124 mm[Hg] Comments: Patient Position: Sitting; Cuff Location: Left Arm; Cuff Size: Large BP Diastolic 72 mm[Hg] Comments: Patient Position: Sitting; Cuff Location: Left Arm; Cuff Size: Large Weight 214.125 lb Height 61.5 in Body Mass Index Calculated 39.8 kg/m2 Body Surface Area Calculated 1.96 m2 Head Circumference 0.00 cm :17 Temperature 99 f Comments: Method: Oral Pulse 64 /min Comments: Pattern: Regular Respiration Rate 16 /min Comments: Pattern: Unlabored BP Systolic 118 mm[Hg] Comments: Patient Position: Sitting; Cuff Location: Left Arm; Cuff Size: Standard BP Diastolic 68 mm[Hg] Comments: Patient Position: Sitting; Cuff Location: Left Arm; Cuff Size: Standard Weight 208.25 lb Height 61.5 in Body Mass Index Calculated 38.71 kg/m2 Body Surface Area Calculated 1.93 m2 Head Circumference 0.00 cm :21 Pulse 60 /min Comments: Pattern: Regular Respiration Rate 16 /min Comments: Pattern: Unlabored BP Systolic 124 mm[Hg] Comments: Patient Position: Sitting; Cuff Location: Left Arm; Cuff Size: Standard BP Diastolic 78 mm[Hg] Comments: Patient Position: Sitting; Cuff Location: Left Arm; Cuff Size: Standard Weight 208.25 lb Height 61.5 in Body Mass Index Calculated 38.71 kg/m2 Body Surface Area Calculated 1.93 m2 Head Circumference 0.00 cm :36 Temperature 97.7 f Comments: Method: Oral Pulse 70 /min Comments: Pattern: Regular Respiration Rate 20 /min Comments: Pattern: Unlabored BP Systolic 122 mm[Hg] Comments: Patient Position: Sitting; Cuff Location: Left Arm; Cuff Size: Standard BP Diastolic 78 mm[Hg] Comments: Patient Position: Sitting; Cuff Location: Left Arm; Cuff Size: Standard Weight 210 lb Height 0 in Head Circumference 0.00 cm :46 Temperature 98.9 f Comments: Method: Oral Pulse 62 /min Comments: Pattern: Regular BP Systolic 122 mm[Hg] Comments: Patient Position: Sitting; Cuff Location: Left Arm; Cuff Size: Standard BP Diastolic 78 mm[Hg] Comments: Patient Position: Sitting; Cuff Location: Left Arm; Cuff Size: Standard Weight 0 lb Height 0 in Head Circumference 0.00 cm Results Date Description Value Details :24 HgA1C , Office (61052) HgA1C , Office 5.9 % (Normal) Range: 4.6 - 7.1 [id number]:24 Blood Glucose , Office (42169) Blood Glucose , Office 132 (Normal) 19-Jan-20188:15 Lactic Acid Comments: Yes/No query for Sepsis Lactate Rule [facility] [address] [place], [id number] LACTIC ACID 1.2 mmol/L (Normal) Range: 0.4-2.0 [id number]:10 CBC W/Diff, Automated Comments: [facility] [address] [place], [id number] Absolute Lymph 0.73 {X10_3/ul} (Abnormal) Range: 0.83-4.51 Absolute Neut 10.8 {X10_3/uL} (Abnormal) Range: 2.0-7.7 IM GRAN % 0.100 % (Normal) Range: 0.0-0.9 Comments: IG% - Immature Granulocytes (promyelocytes, myelocytes andmetamyelocytes) > 1% indicates that a LEFT SHIFT is Present. BASO% 0.2 % (Normal) Range: 0-1 EO% 1.1 % (Normal) Range: 0-5 MONO% 5.6 % (Normal) Range: 0-10 LY% 5.9 % (Abnormal) Range: 19-41 NEUT% 87.1 % (Abnormal) Range: 47-70 MPV 8.5 fL (Normal) Range: 6.2-12.0 PLT 203 K/mm3 (Normal) Range: 150-450 RDW SD 43.8 fL (Normal) Range: 35.1-43.9 RDW CV 14.2 % (Normal) Range: 11.6-14.6 MCHC 32.5 {g/gl} (Normal) Range: 32-36 MCH 27.3 pg (Normal) Range: 27.0-32.0 MCV 84.1 fL (Normal) Range: 81-99 HCT 38.2 % (Normal) Range: 37-47 HGB 12.4 g/dL (Normal) Range: 12.0-15.0 RBC 4.54 {M/mm3} (Normal) Range: 4.2-5.4 WBC 12.4 K/mm3 (Abnormal) Range: 4.4-11.0 [id number]-[id number]:10 Comprehensive Metabolic Profil Comments: [facility] [address] [place], [address] GAP 7 (Normal) Range: 5-15 CO2 28.0 mmol/L (Normal) Range: 21.0-32.0 CL 103 mmol/L (Normal) Range: 98-107 K 4.0 mmol/L (Normal) Range: 3.5-5.1 NA 138 mmol/L (Normal) Range: 136-145 T BILI 0.40 mg/dL (Normal) Range: 0.20-1.00 ALT 24 U/L (Normal) Range: 13-56 ALK P 91 U/L (Normal) Range: 45-117 AST 16 U/L (Normal) Range: 15-37 CA 8.7 mg/dL (Normal) Range: 8.5-10.1 A/G 1.1 {RATIO} (Normal) Range: 0.9-2.4 GLOB 3.5 g/dL (Normal) Range: 2.2-4.2 ALB 4.0 g/dL (Normal) Range: 3.2-5.0 T PROT 7.5 g/dL (Normal) Range: 6.4-8.2 BUN/CRE 14.3 {RATIO} (Normal) Range: 10-20 Estimated CRCL 57.16 ml/min (Normal) EST GFR - AA 97 mL/min (Normal) Comments: GFR Calc EST GFR 81 mL/min (Normal) Comments: Non- GFR Calc CREAT,SERUM 0.77 mg/dL (Normal) Range: 0.55-1.02 Comments: The validity of the calculated GFR AND GFRAA in patients over70 years has not been determined. Clinical correlation isessential. BUN 11 mg/dL (Normal) Range: 7-18 GLU 128 mg/dL (Abnormal) Range: 74-106 Comments: Fasting Glucose result greater than or equal to 126 mg/dLsuggests DIABETES MELLITUS per A.D.A. criteria.Please note revised GLUCOSE reference range [id number]/02/2018. 2-Gja-[id number]:10 Lactic Acid Comments: Yes/No query for Sepsis Lactate Rule [facility] [id number] [place], [place], [phone] LACTIC ACID 1.6 mmol/L (Normal) Range: 0.4-2.0 [id number]-Mli-[id number]:10 Partial Thromboplast Time Comments: [facility] [address] [place], [place], [phone] PTT 26.9 s (Normal) Range: 24.1-36.2 [id number]-[id number]:10 Prothrombin Time w/INR Comments: [facility] [address] [place], [address] INR 1.0 (Normal) PROTIME 13.1 s (Normal) Range: 11.7-14.9 94-Boe-41287:15 HgA1C , Office (56297) HgA1C , Office 5.6 % (Normal) Range: 4.6 - 7.1 :15 Blood Glucose , Office (76852) Blood Glucose , Office 135 (Normal) 86-Blb-179032:17 Bedside Glucose Comments: [facility] Laboratory[facility] of [address] [place] [address] BEDSIDE GLU 126 mg/dL (Abnormal) Range: 70-110 Comments: MANAGEMENT OF PATIENT CARE PER NURSING PROTOCOL 24-May-2017 MISCELLANEOUS SPECIMEN See Note (Normal) Comments: [facility] [address] [place], [address] 7:30 Comments: Patient: JESSICA RODRIGUEZ : 1955 (62/F) Acct Num: [id number] Phys: Hodan Chong MD Unit Num: [id number] Loc: [facility] [place] Specimen: [id number] Received: 05/24/17 - 1037 Spec Type: MIS C TISSUES TISSUES: A. Left axillary region B. Skin of breast, NOS COMMENT Case has been reviewed in consultation with Dr. Skinner who concurs with the above rolanda gnosis. IDC:[id number] GROSS DESCRIPTION A - Received in fixative is one container labeled with the patient's name and designated left axillary contents. The specimen consists of a piece of bagley-yello w adipose tissue with multiple sutures measuring 8 x 6 x 2 cm. One large lymph node is identified measuring 2.5 cm in greatest dimension. Multiple additional smaller lymph nodes are identified measuri ng 0.5 to 2 cm in greatest dimension. The lymph nodes are submitted in entirety. Tick Sewer sections are submitted as follows: 1 multiple lymph nodes, 2-4 largest lymph node serially sectione d, 5 one bisected lymph node, 6 - one bisected lymph node, 7 multiple lymph nodes. Sections will be submitted after overnight fixation. /SJ:lilibeth 05/24/17 B - Received in fixative is one container labeled with the patient's name and designated dog ear. The specimen consists of a piece of skin with underlying adipose tissue measuring 6 x 3 cm and up to 7 cm in thickness. A focal area of scar i s noted in the skin surface. The specimen is shaped like a dog ear. No mass lesion is identified. Tick Sewer sections are submitted in four cassettes. / SJ:lilibeth 05/24/17 TC:0 CPT: 57427, 16957 HEADER OPERATION: Excision lymph node, axillary PRE-OP DIAGNOSIS: Left breast cancer, invasive ductal, ER/KS positive, HER2 negative, bulky adenopathy of left axilla TISSUE SUBMITTED: A Left axillary contents, B Dog ear MICROSCOPIC DESCRIPTION Slides are reviewed. A. The largest lymph node contains benign histiocytic proliferation, fibrosis and minimal chronic inflammation co nsistent with previous biopsy and resection ([id number]). Immunohistochemistry ([id number]) supports the presence of isolated metastatic tumor cells in one out of seven lymph nodes. MICROSCOPIC DIAGNO SIS A. Left axillary contents, regional lymphadenectomy: Isolated metastatic tumor cells in one of seven lymph nodes. B. Dog ear, excision: Skin with attached fibrofatty tissue with reactive and reparative change and suture granulomas. No evidence of malignancy. AM:lilibeth 05/28/[address] [facility] 05/30/17 <signature on file> 76-Ewd-36078:44 Bedside Glucose Comments: [facility] LaboratoryPoint of Dpub[address] [place], [place] [address] BEDSIDE GLU 178 mg/dL (Abnormal) Range: 70-110 Comments: MANAGEMENT OF PATIENT CARE PER NURSING PROTOCOL : IMMUNOHISTOCHEMISTRY See Note (Normal) Comments: [facility] [address] [place], [place], [id number] 00 Comments: Patient: JESSICA RODRIGUEZ : 1955 (62/F) Acct Num: [id number] Phys: Hodan Chong MD Unit Num: [id number] Loc: [facility] [place] Specimen: [id number] Received: 05/28/171425 Spec Type: IMM JOSELO TISSUES TISSUES: A. Axilla, NOS SPECIMEN INFORMATION: Tissue Source: A Left axillary contents Clinical Info: Left breast cancer Specimen Number: [id number] A1, A2, A4, A5, A7 CPT code: 94243, 67246 x4 METHODOLOGY: Deparaffinized sections of prefer/formalin-fixed tissue or PAP/DQ stained slides are incubated with monoclonal/polyclonal antibodies/oligonu cleotide probes. Localization is made via biotin free immunoperoxidase method. Appropriate controls are performed and reacted as expected. Results on target cell population are indicated in the follo wing table: RESULTS: ANTIBODY / CLONE RESULT Block A1 AE1-3 (AE1/AE3/PCK26) negative Block A2 AE1-3 (AE1/AE3/PCK26) positive Block A4 AE1-3 (AE1/ AE3/PCK26) negative Block A5 AE1-3 (AE1/AE3/PCK26) negative Block A7 AE1-3 (AE1/AE3/PCK26) negative These tests were developed and their performance characteristics dete rmined by [facility]. They may not have been cleared or approved by the U.S. Food and Drug Administration. The FDA has determined that such clearance or approval is not nece ssary. INTERPRETATION: A. Left axillary contents: Isolated metastatic tumor cells present in one out of seven lymph nodes. AM:lilibeth 05/30/17 PHYSICIAN AND INSTITUTION [facility] [address] [place], [place] [address] Signed [facility] 05/30/17 <signature on file> [id number]:05 Bedside Glucose Comments: [facility] of [address] [place] [address] BEDSIDE GLU 162 mg/dL (Abnormal) Range: 70-110 Comments: MANAGEMENT OF PATIENT CARE PER NURSING PROTOCOL :32 Bedside Glucose Comments: [facility] Laboratory[facility] of [id number] [place] [address] BEDSIDE GLU 137 mg/dL (Abnormal) Range: 70-110 Comments: MANAGEMENT OF PATIENT CARE PER NURSING PROTOCOL 19-Apr-20179:17 Basic Metabolic Profile (BMP) Comments: [facility] [address] [place], [address] GAP 9 (Normal) Range: 5-15 CO2 29.0 mmol/L (Normal) Range: 21.0-32.0 CL 103 mmol/L (Normal) Range: 98-107 K 3.9 mmol/L (Normal) Range: 3.5-5.1 NA 141 mmol/L (Normal) Range: 136-145 CA 9.0 mg/dL (Normal) Range: 8.5-10.1 BUN/CRE 23.9 {RATIO} (Abnormal) Range: 10-20 EST GFR - AA 134 mL/min (Normal) Comments: GFR Calc EST GFR 110 mL/min (Normal) Comments: Non- GFR Calc CREAT,SERUM 0.59 mg/dL (Normal) Range: 0.55-1.02 Comments: The validity of the calculated GFR AND GFRAA in patients over70 years has not been determined. Clinical correlation isessential. BUN 14 mg/dL (Normal) Range: 7-18 GLU 129 mg/dL (Abnormal) Range: 74-106 Comments: Fasting Glucose result greater than or equal to 126 mg/dLsuggests DIABETES MELLITUS per A.D.A. criteria.Please note revised GLUCOSE reference range xenwbdxto63/02/2018. 19-Apr-20179:17 CBC-Complete Blood Cnt No Diff Comments: [facility] [address] [place], [address] MPV 9.4 fL (Normal) Range: 6.2-12.0 PLT 261 K/mm3 (Normal) Range: 150-450 RDW SD 41.5 fL (Normal) Range: 35.1-43.9 RDW CV 13.2 % (Normal) Range: 11.6-14.6 MCHC 32.7 {g/gl} (Normal) Range: 32-36 MCH 28.2 pg (Normal) Range: 27.0-32.0 MCV 86.3 fL (Normal) Range: 81-99 HCT 42.2 % (Normal) Range: 37-47 HGB 13.8 g/dL (Normal) Range: 12.0-15.0 RBC 4.89 {M/mm3} (Normal) Range: 4.2-5.4 WBC 8.1 K/mm3 (Normal) Range: 4.4-11.0 19-Apr-20179:17 Hemoglobin A1c Comments: [facility] [address] [place], [place], [address] HGB A1C 6.3 % (Normal) Range: 4.2-6.3 BREAST BIOPSY (CHOOSE SITE) See Note (Normal) Comments: [facility] [address] [place], [place], [address] 813:15 Comments: Patient: JESSICA RODRIGUEZ : 1955 (62/F) Acct Num: [id number] Phys: Castillo MCMILLAN,Hodan Unit Num: [id number] Loc: LABSPEC Specimen: [id number] Received: 04/06/17 - 1201 Spec Type: BREAST BX TISSUES TISSUES: Left breast, NOS COMMENT Immunohistochemistry ([id number]) supports the above diagnosis. ER/KS/Yfj5wgx studies are being performed on sections of tumor and the results from this study will be reported separately ([id number]). Please make reference to previous specimen ([id number]) left breast, core biopsy with diagnosis of fibrocystic change wi th associated microcalcifications. GROSS DESCRIPTION Received is one container labeled with the patient's name and not further designated. The specimen consists of multiple elongated fragments o f bagley-yellowfibroadipose tissue that in aggregate measure 3 x 2 x 0.1 cm. The entire specimen is submitted in one cassette. / DAI:lilibeth 04/06/17 TC:0 CPT: 35714 HEADER OPERATION: Ultrasound-guided left breast needle core biopsy PRE-OP DIAGNOSIS: Abnormal left mammogram/ultrasound TISSUE SUBMITTED: Left breast needle core biopsy ISCHEMIC TIME: 3 minutes FIXATION TIME: 54.5 hours MICROSCOPIC DESCRIPTION Slides are reviewed. MICROSCOPIC DIAGNOSIS Left breast, ultrasound-guided needle core biopsy: Invasive ductal carcinoma, nuclear grade 3 (1 cm in greatest length) . See comment. SJ:lilibeth 04/09/17 Signed Ildefonso Lucasin 04/10/17 <signature on file> IMMUNOHISTOCHEMISTRY See Note (Normal) Comments: [facility] [address] [place], [place], [address] 80:00 Comments: Patient: JESSICA RODRIGUEZ : 1955 (62/F) Acct Num: [id number] Phys: Hodan Chong MD Unit Num: [id number] Loc: LABSPEC Specimen: [id number] Received: 04/09/17 - 1250 Spec Type: IMMUNO TISSUES TISSUES: Left breast, NOS SPECIMEN INFORMATION: Tissue Source: Left breast needle core biopsy Clinical Info: Abnormal left mammogram/ultrasound [facility] Number: [id number] CPT code: 78073, 75040 x4, 51941 x3 METHODOLOGY: Deparaffinized sections of prefer/formalin-fixed tissue or PAP/DQ stained slides are incubated with monoclonal/polyclonal a ntibodies/oligonucleotide probes. Localization is made via biotin free immunoperoxidase method. Appropriate controls are performed and reacted as expected. Results on target cell population are indic ated in the following table: RESULTS: ANTIBODY / CLONE RESULT E-Cad (ECH-6) positive CK8 (89xxguK45) positive CK5-6 (D5 AND 1684) nega tive Ki-67 (30-9) positive, moderate P53 (DO-7) positive MORPHOMETRIC ANALYSIS ER (clone 6F11) >95% , strong KS (clone 16/1E2) variable, 0-11%, weak Her- 2Neu (clone CB11) 1+ The prognostic test for HER2 is performed on formalin-fixed paraffin embedded tissue. A 3+ ( positive) staining pattern is defined as intense, homogeneous, complete, circumferential membranous staining in >10% of contiguous tumor cells. A similar weak (2+) staining pattern is interpreted as equivocal. LUDA follow-up testing is recommended for all equivocal cases. Positivity/negativity for ER/KS is reported if > or < 1% of the tumor cells are immuno- reactive, respectively. The ASCO/C AP criteria is used for scoring. Reference: Journal of Clinical Oncology, 2013; 31:5940-0151 AND 2009; 16:1924-6254. Duration of fixation: 54.5 Hrs; Sample Adequate: Yes. These assays have not bee n validated on decalcified tissues. Results should beinterpreted with caution given the likelihood of false negativity on decalcifiedspecimens. These tests were developed and their performance amanda cteristics determined by [facility]. They may not have been cleared or approved by the U.S. Food and Drug Administration. The FDA has determined that such clearance or appro esequiel is not necessary. INTERPRETATION: Left breast, ultrasound-guided needle core biopsy: Invasive ductal carcinoma, nuclear grade 3. Positive for estrogen receptors (favorable prognostic indicator). Positive for progesterone receptors (favorable prognostic indicator). Negative for overexpression of WXO0ztk. SJ:lilibeth 04/10/17 [facility] [address] [address] Signed Ildefonso Skinner 04/10/17 <signature on file> COLON BIOPSY (CHOOSE SITE) See Note (Normal) Comments: [facility] [address] [place], [place], [address] 811:08 Comments: Patient: JESSICA RODRIGUEZ : 1955 (61/F) Acct Num: [id number] Phys: Yovani Mcduffie Unit Num: [id number] Loc: LABSPEC Specimen: [id number] Received: 03/01/17 1800 Spec Type: COLON BX TISSUES TISSUES: A. Transverse colon B. Sigmoid colon biopsy GROSS DESCRIPTION A - Received in fixative is one container labeled with the patient's name and designated proximal transverse colon polyps biopsy. The specimen consists of multiple irregular fragments of bagley soft tissue mixed with fecal material that in aggregate measure 1 x 0.2 x 0. 1 cm. The entire specimen is submitted in one cassette. B - Received in fixative is one container labeled with the patient's name and designated sigmoid polyp biopsy. The specimen consists of mul tiple irregular fragments of light bagley soft tissue that in aggregate measure 0.5 x 0.3 x 0.1 cm. The specimen is totally submitted in one cassette. / SJ:lilibeth 03/02/17 TC:1 CPT: 80632 x2 HEADER OP ERATION: Colonoscopy with polypectomy and biopsies PRE-OP DIAGNOSIS: Screening / polyp TISSUE SUBMITTED: A Proximal transverse colon polyps and biopsies, rule out adenoma, B Sigmoid polyp bio psies, rule out adenoma MICROSCOPIC DESCRIPTION Slides are reviewed. MICROSCOPIC DIAGNOSIS A. Transverse colon polyps, biopsy: Fragments of tubular adenoma. B. Sigmoid polyp, bio psy: Fragments of hyperplastic polyp. SJ:lilibeth 03/05/17 Signed Ildefonso Skinner 03/05/17 <signature on file> :14 Metabolic Panel, Basic (59442) Comments: PATIENT NOT FASTINGPERFORMED BY: [facility] CenterNkraoo8175 [facility] [id number] Calcium, Serum 9.2 mg/dL (Normal) Range: 8.7-10.3 Carbon Dioxide, Total 26 mmol/L (Normal) Range: 18-29 Chloride, Serum 99 mmol/L (Normal) Range: 96-106 Potassium, Serum 4.3 mmol/L (Normal) Range: 3.5-5.2 Sodium, Serum 141 mmol/L (Normal) Range: 134-144 BUN/Creatinine Ratio 13 (Normal) Range: 12-28 eGFR If Africn Am 108 mL/min/1.73 (Normal) eGFR If NonAfricn Am 94 mL/min/1.73 (Normal) Creatinine, Serum 0.70 mg/dL (Normal) Range: 0.57-1.00 BUN 9 mg/dL (Normal) Range: 8-27 Glucose, Serum 156 mg/dL (Abnormal) Range: 65-99 :58 HgA1C , Office (76953) HgA1C , Office 6.8 % (Normal) Range: 4.6 - 7.1 52-Pwd-08697:58 Blood Glucose , Office (46967) Blood Glucose , Office 166 (Normal) :17 CBC W/Diff, Automated Comments: [facility] [address] [place], [place], [id number] Absolute Lymph 1.78 {X10_3/ul} (Normal) Range: 0.83-4.51 Absolute Neut 5.0 {X10_3/uL} (Normal) Range: 2.0-7.7 IM GRAN % 0.100 % (Normal) Range: 0.0-0.9 Comments: IG% - Immature Granulocytes (promyelocytes, myelocytes andmetamyelocytes) > 1% indicates that a LEFT SHIFT is Present. BASO% 0.5 % (Normal) Range: 0-1 EO% 2.0 % (Normal) Range: 0-5 MONO% 6.0 % (Normal) Range: 0-10 LY% 24.2 % (Normal) Range: 19-41 NEUT% 67.2 % (Normal) Range: 47-70 MPV 9.2 fL (Normal) Range: 6.2-12.0 PLT 241 K/mm3 (Normal) Range: 150-450 RDW SD 41.2 fL (Normal) Range: 35.1-43.9 RDW CV 13.0 % (Normal) Range: 11.6-14.6 MCHC 32.4 {g/gl} (Normal) Range: 32-36 MCH 27.9 pg (Normal) Range: 27.0-32.0 MCV 86.3 fL (Normal) Range: 81-99 HCT 38.9 % (Normal) Range: 37-47 HGB 12.6 g/dL (Normal) Range: 12.0-15.0 RBC 4.51 {M/mm3} (Normal) Range: 4.2-5.4 WBC 7.4 K/mm3 (Normal) Range: 4.4-11.0 :17 Comprehensive Metabolic Profil Comments: [facility] [address] [place], [place], [id number] GAP 7 (Normal) Range: 5-15 CO2 29.0 mmol/L (Normal) Range: 21.0-32.0 CL 102 mmol/L (Normal) Range: 98-107 K 4.1 mmol/L (Normal) Range: 3.5-5.1 NA 138 mmol/L (Normal) Range: 136-145 T BILI 0.30 mg/dL (Normal) Range: 0.20-1.00 ALT 23 U/L (Normal) Range: 12-78 ALK P 76 U/L (Normal) Range: 45-117 AST 11 U/L (Abnormal) Range: 15-37 CA 9.0 mg/dL (Normal) Range: 8.5-10.1 A/G 1.0 {RATIO} (Normal) Range: 0.9-2.4 GLOB 3.5 g/dL (Normal) Range: 2.2-4.2 ALB 3.6 g/dL (Normal) Range: 3.4-5.0 Comments: Please note revised Albumin AND Globulin reference rangeeffective 2016. T PROT 7.1 g/dL (Normal) Range: 6.4-8.2 BUN/CRE 16.2 {RATIO} (Normal) Range: 10-20 EST GFR - AA 102 mL/min (Normal) Comments: GFR Calc EST GFR 84 mL/min (Normal) Comments: Non- GFR Calc CREAT,SERUM 0.74 mg/dL (Normal) Range: 0.55-1.02 Comments: The validity of the calculated GFR AND GFRAA in patients over70 years has not been determined. Clinical correlation isessential. BUN 12 mg/dL (Normal) Range: 7-18 GLU 182 mg/dL (Abnormal) Range: 70-110 Comments: Fasting Glucose result greater than or equal to 126 mg/dLsuggests DIABETES MELLITUS per A.D.A. criteria. :11 HgA1C , Office (69304) HgA1C , Office 6.3 % (Normal) Range: 4.6 - 7.1 :11 Blood Glucose , Office (33395) Blood Glucose , Office 154 (Normal) 66-Xnj-167893:56 CALCIFIDIOL (71892) VIT D 25 Comments: PATIENT WAS FASTINGPERFORMED BY: [facility]6370 [facility] [id number] Vitamin D, 25-Hydroxy 28.4 ng/mL (Abnormal) Range: 30.0-100.0 Comments: Vitamin D deficiency has been defined by the [place] of[place]icine and an Endocrine Society practice guideline as alevel of serum 25-OH vitamin D less than 20 ng/mL (1,2).The Endocrine Society went on to further define vitamin Dinsufficiency as a level between 21 and 29 ng/mL (2).1. IOM ([place] of [employer]). 2010. Dietary reference intakes for calcium and D. [place]: The National AcademLocish Press.2. Sara MF, Johanna JOSEPH, Rosanna SOMMER, et al. Evaluation, treatment, and prevention of vitamin D deficiency: an Endocrine Society clinical practice guideline. JCEM. 2010; 96(7):1911-30. :56 TSH (02602) Comments: PATIENT WAS FASTINGPERFORMED BY: [employer] [facility] [place] [id number] TSH 0.824 {uIU/mL} (Normal) Range: 0.450-4.500 29-Drz-838138:56 MICROALBUMIN: CREATININE RATIO Comments: PATIENT WAS FASTINGPERFORMED BY: [employer] [facility] [place] [id number] (61650) AND (43559) Microalb/Creat Ratio 8.0 {mg/g_creat} (Normal) Range: 0.0-30.0 Microalbumin, Urine 8.3 ug/mL (Normal) Creatinine, Urine 103.7 mg/dL (Normal) :56 METABOLIC PANEL, COMPREHENSIVE Comments: PATIENT WAS FASTINGPERFORMED BY: [facility] [address] [place] [id number] (36054) ALT (SGPT) 14 [iU]/L (Normal) Range: 0-32 AST (SGOT) 13 [iU]/L (Normal) Range: 0-40 Alkaline Phosphatase, S 90 [iU]/L (Normal) Range: 39-117 Bilirubin, Total 0.3 mg/dL (Normal) Range: 0.0-1.2 A/G Ratio 2.0 (Normal) Range: 1.2-2.2 Globulin, Total 2.2 g/dL (Normal) Range: 1.5-4.5 Albumin, Serum 4.4 g/dL (Normal) Range: 3.6-4.8 Protein, Total, Serum 6.6 g/dL (Normal) Range: 6.0-8.5 Calcium, Serum 9.6 mg/dL (Normal) Range: 8.7-10.3 Carbon Dioxide, Total 26 mmol/L (Normal) Range: 18-29 Chloride, Serum 98 mmol/L (Normal) Range: 96-106 Potassium, Serum 4.4 mmol/L (Normal) Range: 3.5-5.2 Sodium, Serum 141 mmol/L (Normal) Range: 134-144 BUN/Creatinine Ratio 14 (Normal) Range: 12-28 eGFR If Africn Am 98 mL/min/1.73 (Normal) eGFR If NonAfricn Am 85 mL/min/1.73 (Normal) Creatinine, Serum 0.76 mg/dL (Normal) Range: 0.57-1.00 BUN 11 mg/dL (Normal) Range: 8-27 Glucose, Serum 145 mg/dL (Abnormal) Range: 65-99 30-Jop-275836:56 CBC W/AUTO DIFF WBC (03224) Comments: PATIENT WAS FASTINGPERFORMED BY: [facility]Ly[facility] CenterJkzrja3525 [facility] [id number] Immature Grans (Abs) 0.0 {x10E3/uL} (Normal) Range: 0.0-0.1 Immature Granulocytes 0 % (Normal) Baso (Absolute) 0.1 {x10E3/uL} (Normal) Range: 0.0-0.2 Eos (Absolute) 0.2 {x10E3/uL} (Normal) Range: 0.0-0.4 Monocytes(Absolute) 0.5 {x10E3/uL} (Normal) Range: 0.1-0.9 Lymphs (Absolute) 1.7 {x10E3/uL} (Normal) Range: 0.7-3.1 Neutrophils (Absolute) 5.5 {x10E3/uL} (Normal) Range: 1.4-7.0 Basos 1 % (Normal) Eos 2 % (Normal) Monocytes 6 % (Normal) Lymphs 22 % (Normal) Neutrophils 69 % (Normal) Platelets 279 {x10E3/uL} (Normal) Range: 150-379 RDW 13.3 % (Normal) Range: 12.3-15.4 MCHC 33.4 g/dL (Normal) Range: 31.5-35.7 MCH 28.0 pg (Normal) Range: 26.6-33.0 MCV 84 fL (Normal) Range: 79-97 Hematocrit 40.7 % (Normal) Range: 34.0-46.6 Hemoglobin 13.6 g/dL (Normal) Range: 11.1-15.9 RBC 4.85 {x10E6/uL} (Normal) Range: 3.77-5.28 WBC 7.9 {x10E3/uL} (Normal) Range: 3.4-10.8 :56 LIPID PANEL (19798) Comments: PATIENT WAS FASTINGPERFORMED BY: [facility] [id number] LDL/HDL Ratio 1.6 {ratio_units} (Normal) Range: 0.0-3.2 Comments: LDL/HDL Ratio Men Women 1/2 Avg.Risk 1.0 1.5 Av g.Risk 3.6 3.2 2X Avg.Risk 6.2 5.0 3X Avg.Risk 8.0 6.1 LDL Cholesterol Calc 100 mg/dL (Abnormal) Range: 0-99 VLDL Cholesterol Huy 29 mg/dL (Normal) Range: 5-40 HDL Cholesterol 62 mg/dL (Normal) Triglycerides 144 mg/dL (Normal) Range: 0-149 Cholesterol, Total 191 mg/dL (Normal) Range: 100-199 :27 HgA1C , Office (36727) HgA1C , Office 7.6 % (Abnormal) Range: 4.6 - 7.1 :27 Blood Glucose , Office (83726) Blood Glucose , Office 192 (Normal) 61-Tuk-196713:11 HgA1C , Office (72619) HgA1C , Office 6.8 % (Normal) Range: 4.6 - 7.1 :33 Microscopic Examination Comments: PATIENT WAS FASTINGPERFORMED BY: [facility] [id number] Bacteria Few (Normal) Mucus Threads Present (Normal) Epithelial Cells (non renal) 0-10 {/hpf} (Normal) Range: 0 - 10 RBC 3-10 {/hpf} (Abnormal) Range: 0 - 2 WBC 0-5 {/hpf} (Normal) Range: 0 - 5 :31 Throat Culture (35987) Comments: PATIENT NOT FASTINGPERFORMED BY: [facility] Ukfgjh6742 [facility] [id number] Information: SRC:TH Result 1 BETAGC (Abnormal) Comments: Beta hemolytic Streptococcus, group CHeavy growthPenicillin and ampicillin are drugs of choice for treatment ofbeta- hemolytic streptococcal infections. Susceptibility testing ofpenicillins and other bet a-lactam agents approved by the FDA fortreatment of beta-hemolytic streptococcal infections need not beperformed routinely because nonsusceptible isolates are extremelyrare in any beta-hemolytic strepto coccus and have not been reportedfor Streptococcus pyogenes (group A). (CLSI 2011) Upper Respiratory Culture Final report (Abnormal) :55 Influenza A&B Viral Culture (13421) :55 Rapid Flu (87082 x 2) Influenza A Ag negative (Normal) :43 Rapid Strep Test, Office (55954) Rapid Strep Test, Office Negative (Normal) :33 CALCIFIDIOL (46999) VIT D 25 Comments: PATIENT WAS FASTINGPERFORMED BY: [facility]CoLy[facility] CenterJfcere9352 [facility] [id number] Vitamin D, 25-Hydroxy 30.8 ng/mL (Normal) Range: 30.0-100.0 Comments: Vitamin D deficiency has been defined by the [place] of[place]icine and an Endocrine Society practice guideline as alevel of serum 25-OH vitamin D less than 20 ng/mL (1,2).The Endocrine Society went on to further define vitamin Dinsufficiency as a level between 21 and 29 ng/mL (2).1. IOM ([place] [employer]). 2010. Dietary reference intakes for calcium and D. [place]: The National Academies Press.2. Sara SHARMA, Johanna JOSEPH, Rosanna SOMMER, et al. Evaluation, treatment, and prevention of vitamin D deficiency: an Endocrine Society clinical practice guideline. JCEM. 2010; 96(7):1911-30. :33 TSH (67242) Comments: PATIENT WAS FASTINGPERFORMED BY: [facility]Saint [facility] KirkwoodJniwcr9882 [facility] [id number] TSH 1.190 {uIU/mL} (Normal) Range: 0.450-4.500 :33 URINALYSIS, W/ MICRO (02269) Comments: PATIENT WAS FASTINGPERFORMED BY: [facility]6370 [facility] [id number] Microscopic Examination See below: (Normal) Comments: Microscopic was indicated and was performed. Nitrite, Urine Negative (Normal) Urobilinogen,Semi-Qn 0.2 mg/dL (Normal) Range: 0.2-1.0 Bilirubin Negative (Normal) Occult Blood 1+ (Abnormal) Ketones Negative (Normal) Glucose Negative (Normal) Protein Negative (Normal) WBC Esterase 1+ (Abnormal) Appearance Clear (Normal) Urine-Color Yellow (Normal) pH 6.5 (Normal) Range: 5.0-7.5 Specific Lindley 1.020 (Normal) Range: 1.005-1.030 :33 MICROALBUMIN: CREATININE RATIO Comments: PATIENT WAS FASTINGPERFORMED BY: [facility] HospitalWjmbaa6463 [facility] [id number] (89241) AND (06045) Microalb/Creat Ratio 7.7 {mg/g_creat} (Normal) Range: 0.0-30.0 Microalbumin, Urine 7.4 ug/mL (Normal) Creatinine, Urine 96.3 mg/dL (Normal) :33 METABOLIC PANEL, COMPREHENSIVE Comments: PATIENT WAS FASTINGPERFORMED BY: [facility] MeSaint [facility] Of KirkwoodDbduvc2935 [facility] [id number] (40667) ALT (SGPT) 16 [iU]/L (Normal) Range: 0-32 AST (SGOT) 16 [iU]/L (Normal) Range: 0-40 Alkaline Phosphatase, S 69 [iU]/L (Normal) Range: 39-117 Bilirubin, Total <0.2 mg/dL (Normal) Range: 0.0-1.2 A/G Ratio 1.7 (Normal) Range: 1.1-2.5 Comments: Effective April 24, 2016 the reference interval for A/G Ratio will be changing to: Age Male Female 0 - 7 d ays 1.1 - 2.3 1.1 - 2.3 8 - 30 days 1.2 - 2.8 1.2 - 2.8 1 - 6 months 1.3 - 3.6 1.3 - 3.6 7 months - 5 years 1.5 - 2.6 1.5 - 2.6 > 5 years 1.2 - 2.2 1.2 - 2.2 Globulin, Total 2.4 g/dL (Normal) Range: 1.5-4.5 Albumin, Serum 4.1 g/dL (Normal) Range: 3.6-4.8 Protein, Total, Serum 6.5 g/dL (Normal) Range: 6.0-8.5 Calcium, Serum 9.4 mg/dL (Normal) Range: 8.7-10.3 Carbon Dioxide, Total 25 mmol/L (Normal) Range: 18-29 Chloride, Serum 101 mmol/L (Normal) Range: 96-106 Potassium, Serum 4.6 mmol/L (Normal) Range: 3.5-5.2 Sodium, Serum 142 mmol/L (Normal) Range: 134-144 BUN/Creatinine Ratio 16 (Normal) Range: 11-26 eGFR If Africn Am 99 mL/min/1.73 (Normal) eGFR If NonAfricn Am 86 mL/min/1.73 (Normal) Creatinine, Serum 0.76 mg/dL (Normal) Range: 0.57-1.00 BUN 12 mg/dL (Normal) Range: 8-27 Glucose, Serum 167 mg/dL (Abnormal) Range: 65-99 49-Lmf-88173:33 LIPID PANEL (07855) Comments: PATIENT WAS FASTINGPERFORMED BY: [facility] Ysvolo2790 [facility] [id number] LDL/HDL Ratio 2.0 {ratio_units} (Normal) Range: 0.0-3.2 Comments: LDL/HDL Ratio Men Women 1/2 Avg.Risk 1.0 1.5 Av g.Risk 3.6 3.2 2X Avg.Risk 6.2 5.0 3X Avg.Risk 8.0 6.1 LDL Cholesterol Calc 122 mg/dL (Abnormal) Range: 0-99 VLDL Cholesterol Huy 28 mg/dL (Normal) Range: 5-40 HDL Cholesterol 62 mg/dL (Normal) Triglycerides 142 mg/dL (Normal) Range: 0-149 Cholesterol, Total 212 mg/dL (Abnormal) Range: 100-199 :33 CBC W/AUTO DIFF WBC (62483) Comments: PATIENT WAS FASTINGPERFORMED BY: [facility] Uyoavc8379 [facility] [id number] Immature Grans (Abs) 0.0 {x10E3/uL} (Normal) Range: 0.0-0.1 Immature Granulocytes 0 % (Normal) Baso (Absolute) 0.0 {x10E3/uL} (Normal) Range: 0.0-0.2 Eos (Absolute) 0.2 {x10E3/uL} (Normal) Range: 0.0-0.4 Monocytes(Absolute) 0.4 {x10E3/uL} (Normal) Range: 0.1-0.9 Lymphs (Absolute) 2.0 {x10E3/uL} (Normal) Range: 0.7-3.1 Neutrophils (Absolute) 3.7 {x10E3/uL} (Normal) Range: 1.4-7.0 Basos 1 % (Normal) Eos 3 % (Normal) Monocytes 6 % (Normal) Lymphs 32 % (Normal) Neutrophils 58 % (Normal) Platelets 254 {x10E3/uL} (Normal) Range: 150-379 RDW 14.0 % (Normal) Range: 12.3-15.4 MCHC 32.3 g/dL (Normal) Range: 31.5-35.7 MCH 27.7 pg (Normal) Range: 26.6-33.0 MCV 86 fL (Normal) Range: 79-97 Hematocrit 40.0 % (Normal) Range: 34.0-46.6 Hemoglobin 12.9 g/dL (Normal) Range: 11.1-15.9 RBC 4.65 {x10E6/uL} (Normal) Range: 3.77-5.28 WBC 6.2 {x10E3/uL} (Normal) Range: 3.4-10.8 :06 Blood Glucose , Office (14627) Blood Glucose , Office 130 (Normal) :06 HgA1C , Office (26064) HgA1C , Office 6.3 % (Normal) Range: 4.6 - 7.1 :06 Rapid Strep Test, Office (40921) Rapid Strep Test, Office Negative (Normal) :48 HgA1C , Office (67088) HgA1C , Office 6.3 % (Normal) Range: 4.6 - 7.1 :48 Blood Glucose , Office (16380) Blood Glucose , Office 121 (Normal) :09 MICROALBUMIN: CREATININE RATIO Comments: PATIENT WAS FASTINGPERFORMED BY: [facility] [id number] (25633) AND (38447) Microalb/Creat Ratio 3.7 {mg/g_creat} (Normal) Range: 0.0-30.0 Microalbumin, Urine 3.3 ug/mL (Normal) Creatinine, Urine 88.7 mg/dL (Normal) :09 URINALYSIS (54757) Comments: PATIENT WAS FASTINGPERFORMED BY: [employer] [facility]maniaUNC [facility] [id number] Microscopic Examination MICNIP (Normal) Comments: Microscopic not indicated and not performed. Nitrite, Urine Negative (Normal) Urobilinogen,Semi-Qn 0.2 mg/dL (Normal) Range: 0.2-1.0 Bilirubin Negative (Normal) Occult Blood Negative (Normal) Ketones Negative (Normal) Glucose Negative (Normal) Protein Negative (Normal) WBC Esterase Negative (Normal) Appearance Clear (Normal) Urine-Color Yellow (Normal) pH 6.0 (Normal) Range: 5.0-7.5 Specific [place] 1.017 (Normal) Range: 1.005-1.030 :09 TSH (95935) Comments: PATIENT WAS FASTINGPERFORMED BY: [facility] [id number] TSH 1.390 {uIU/mL} (Normal) Range: 0.450-4.500 :09 CBC WITH MANUAL DIFF Comments: PATIENT WAS FASTINGPERFORMED BY: [facility]6370 [facility] [id number] Information: [id number] (20929) Immature Grans (Abs) 0.0 {x10E3/uL} (Normal) Range: 0.0-0.1 Immature Granulocytes 0 % (Normal) Baso (Absolute) 0.0 {x10E3/uL} (Normal) Range: 0.0-0.2 Eos (Absolute) 0.1 {x10E3/uL} (Normal) Range: 0.0-0.4 Monocytes(Absolute) 0.4 {x10E3/uL} (Normal) Range: 0.1-0.9 Lymphs (Absolute) 1.7 {x10E3/uL} (Normal) Range: 0.7-3.1 Neutrophils (Absolute) 3.5 {x10E3/uL} (Normal) Range: 1.4-7.0 Basos 1 % (Normal) Eos 2 % (Normal) Monocytes 7 % (Normal) Lymphs 29 % (Normal) Neutrophils 61 % (Normal) Platelets 221 {x10E3/uL} (Normal) Range: 150-379 RDW 15.0 % (Normal) Range: 12.3-15.4 MCHC 32.5 g/dL (Normal) Range: 31.5-35.7 MCH 27.3 pg (Normal) Range: 26.6-33.0 MCV 84 fL (Normal) Range: 79-97 Hematocrit 38.2 % (Normal) Range: 34.0-46.6 Hemoglobin 12.4 g/dL (Normal) Range: 11.1-15.9 RBC 4.55 {x10E6/uL} (Normal) Range: 3.77-5.28 WBC 5.8 {x10E3/uL} (Normal) Range: 3.4-10.8 :09 Metabolic Panel, Comprehensive Comments: PATIENT WAS FASTINGPERFORMED BY: [facility]6370 [facility] [id number] (54671) ALT (SGPT) 16 [iU]/L (Normal) Range: 0-32 AST (SGOT) 14 [iU]/L (Normal) Range: 0-40 Alkaline Phosphatase, S 64 [iU]/L (Normal) Range: 39-117 Bilirubin, Total <0.2 mg/dL (Normal) Range: 0.0-1.2 A/G Ratio 2.0 (Normal) Range: 1.1-2.5 Globulin, Total 2.1 g/dL (Normal) Range: 1.5-4.5 Albumin, Serum 4.1 g/dL (Normal) Range: 3.6-4.8 Protein, Total, Serum 6.2 g/dL (Normal) Range: 6.0-8.5 Calcium, Serum 9.2 mg/dL (Normal) Range: 8.7-10.3 Carbon Dioxide, Total 21 mmol/L (Normal) Range: 18-29 Chloride, Serum 104 mmol/L (Normal) Range: 97-108 Potassium, Serum 4.4 mmol/L (Normal) Range: 3.5-5.2 Sodium, Serum 143 mmol/L (Normal) Range: 134-144 BUN/Creatinine Ratio 20 (Normal) Range: 11-26 eGFR If Africn Am 93 mL/min/1.73 (Normal) eGFR If NonAfricn Am 80 mL/min/1.73 (Normal) Creatinine, Serum 0.80 mg/dL (Normal) Range: 0.57-1.00 BUN 16 mg/dL (Normal) Range: 8-27 Glucose, Serum 126 mg/dL (Abnormal) Range: 65-99 20-Aug-20157:09 Lipid Panel (39812) Comments: PATIENT WAS FASTINGPERFORMED BY: [id number] [id number] LDL/HDL Ratio 2.0 {ratio_units} (Normal) Range: 0.0-3.2 Comments: LDL/HDL Ratio Men Women 1/2 Avg.Risk 1.0 1.5 Av g.Risk 3.6 3.2 2X Avg.Risk 6.2 5.0 3X Avg.Risk 8.0 6.1 LDL Cholesterol Calc 102 mg/dL (Abnormal) Range: 0-99 VLDL Cholesterol Huy 33 mg/dL (Normal) Range: 5-40 HDL Cholesterol 52 mg/dL (Normal) Comments: According to ATP-III Guidelines, HDL-C >59 mg/dL is considered anegative risk factor for CHD. Triglycerides 165 mg/dL (Abnormal) Range: 0-149 Cholesterol, Total 187 mg/dL (Normal) Range: 100-199 :09 CALCIFEDIOL (83384) Comments: PATIENT WAS FASTINGPERFORMED BY: [facility] CenterIpjlga6207 [facility] [id number] Vitamin D, 25-Hydroxy 33.6 ng/mL (Normal) Range: 30.0-100.0 Comments: Vitamin D deficiency has been defined by the [place] of[place]icine and an Endocrine Society practice guideline as alevel of serum 25-OH vitamin D less than 20 ng/mL (1,2).The Endocrine Society went on to further define vitamin Dinsufficiency as a level between 21 and 29 ng/mL (2).1. IOM ([place] of [employer]). 2010. Dietary reference intakes for calcium and D. [place]: The National Academies Press.2. Sara MF, Johanna NC, Rosanna SOMMER, et al. Evaluation, treatment, and prevention of vitamin D deficiency: an Endocrine Society clinical practice guideline. JCEM. 2010; 96(7):1911-30. 5:15 HgA1C , Office (35861) HgA1C , Office 6.7 % (Normal) Range: 4.6 - 7.1 :15 Blood Glucose , Office (68193) Blood Glucose , Office 142 (Normal) :18 Microscopic Examination Comments: PATIENT WAS FASTINGPERFORMED BY: [facility] Tirhub0334 [facility] [id number] Bacteria None seen (Normal) Mucus Threads Present (Normal) Epithelial Cells (non renal) 0-10 {/hpf} (Normal) Range: 0 - 10 RBC 0-2 {/hpf} (Normal) Range: 0 - 2 WBC 0-5 {/hpf} (Normal) Range: 0 - 5 7-Ulj-[id number]:01 CBC W/Diff, Automated Comments: [facility] [address] [place], [address] Absolute Lymph 1.22 {X10_3/ul} (Normal) Range: 0.83-4.51 Absolute Neut 7.3 {X10_3/uL} (Normal) Range: 2.0-7.7 IM GRAN % 0.300 % (Normal) Range: 0.0-0.9 Comments: IG% - Immature Granulocytes (promyelocytes, myelocytes andmetamyelocytes) > 1% indicates that a LEFT SHIFT is Present. BASO% 0.1 % (Normal) Range: 0-1 EO% 0.0 % (Normal) Range: 0-5 MONO% 2.5 % (Normal) Range: 0-10 LY% 13.9 % (Abnormal) Range: 19-41 NEUT% 83.2 % (Abnormal) Range: 47-70 MPV 9.2 fL (Normal) Range: 6.2-12.0 PLT 262 K/mm3 (Normal) Range: 150-450 RDW SD 45.0 fL (Abnormal) Range: 35.1-43.9 RDW CV 14.5 % (Normal) Range: 11.6-14.6 MCHC 32.2 {g/gl} (Normal) Range: 32-36 MCH 27.6 pg (Normal) Range: 27.0-32.0 MCV 85.7 fL (Normal) Range: 81-99 HCT 38.5 % (Normal) Range: 37-47 HGB 12.4 g/dL (Normal) Range: 12.0-15.0 RBC 4.49 {M/mm3} (Normal) Range: 4.2-5.4 WBC 8.8 K/mm3 (Normal) Range: 4.4-11.0 1-Kpe-701379:01 Comprehensive Metabolic Profil Comments: [facility] [address] [place], [place], [id number] GAP 7 (Normal) Range: 5-15 CO2 29.0 mmol/L (Normal) Range: 21.0-32.0 CL 103 mmol/L (Normal) Range: 98-107 K 4.0 mmol/L (Normal) Range: 3.5-5.1 NA 139 mmol/L (Normal) Range: 136-145 T BILI 0.20 mg/dL (Normal) Range: 0.20-1.00 ALT 26 U/L (Normal) Range: 12-78 ALK P 78 U/L (Normal) Range: 50-136 AST 15 U/L (Normal) Range: 15-37 CA 9.3 mg/dL (Normal) Range: 8.5-10.1 A/G 1.1 {RATIO} (Normal) Range: 0.9-2.4 GLOB 3.6 g/dL (Abnormal) Range: 2.3-3.5 ALB 3.9 g/dL (Normal) Range: 3.4-5.0 T PROT 7.5 g/dL (Normal) Range: 6.4-8.2 BUN/CRE 16.5 {RATIO} (Normal) Range: 10-20 EST GFR - AA 96 mL/min (Normal) Comments: GFR Calc EST GFR 79 mL/min (Normal) Comments: Non- GFR Calc CREAT,SERUM 0.79 mg/dL (Normal) Range: 0.55-1.20 Comments: The validity of the calculated GFR AND GFRAA in patients over70 years has not been determined. Clinical correlation isessential. BUN 13 mg/dL (Normal) Range: 7-18 GLU 127 mg/dL (Abnormal) Range: 70-110 Comments: Fasting Glucose result greater than or equal to 126 mg/dLsuggests DIABETES MELLITUS per A.D.A. criteria. :18 TSH (34286) Comments: PATIENT WAS FASTINGPERFORMED BY: [address] Ziehhu[address] [facility] [id number] TSH 1.070 {uIU/mL} (Normal) Range: 0.450-4.500 :18 URINALYSIS, W/ MICRO (50897) Comments: PATIENT WAS FASTINGPERFORMED BY: [address] Hctiik5276 [facility] [id number] Microscopic Examination See below: (Normal) Comments: Microscopic was indicated and was performed. Nitrite, Urine Negative (Normal) Urobilinogen,Semi-Qn 0.2 mg/dL (Normal) Range: 0.2-1.0 Bilirubin Negative (Normal) Occult Blood Trace (Abnormal) Ketones Negative (Normal) Glucose Negative (Normal) Protein Negative (Normal) WBC Esterase Negative (Normal) Appearance Clear (Normal) Urine-Color Yellow (Normal) pH 6.5 (Normal) Range: 5.0-7.5 Specific Lindley 1.015 (Normal) Range: 1.005-1.030 :18 MICROALBUMIN: CREATININE RATIO Comments: PATIENT WAS FASTINGPERFORMED BY: [facility]6370 [facility] [id number] ([id number]) AND (27677) Microalb/Creat Ratio 5.4 {mg/g_creat} (Normal) Range: 0.0-30.0 Microalbumin, Urine 5.9 ug/mL (Normal) Range: 0.0-17.0 Creatinine, Urine 109.1 mg/dL (Normal) Range: 15.0-278.0 :18 CBC W/AUTO DIFF WBC Comments: PATIENT WAS FASTINGPERFORMED BY: [facility]Ly[facility] CenterDcfntk2325 [facility] [id number] Information: [id number] (51901) Immature Grans (Abs) 0.0 {x10E3/uL} (Normal) Range: 0.0-0.1 Immature Granulocytes 0 % (Normal) Baso (Absolute) 0.0 {x10E3/uL} (Normal) Range: 0.0-0.2 Eos (Absolute) 0.1 {x10E3/uL} (Normal) Range: 0.0-0.4 Monocytes(Absolute) 0.4 {x10E3/uL} (Normal) Range: 0.1-0.9 Lymphs (Absolute) 1.8 {x10E3/uL} (Normal) Range: 0.7-3.1 Neutrophils (Absolute) 4.2 {x10E3/uL} (Normal) Range: 1.4-7.0 Basos 1 % (Normal) Eos 2 % (Normal) Monocytes 7 % (Normal) Lymphs 27 % (Normal) Neutrophils 63 % (Normal) Platelets 273 {x10E3/uL} (Normal) Range: 150-379 RDW 15.0 % (Normal) Range: 12.3-15.4 MCHC 33.8 g/dL (Normal) Range: 31.5-35.7 MCH 28.1 pg (Normal) Range: 26.6-33.0 MCV 83 fL (Normal) Range: 79-97 Hematocrit 39.0 % (Normal) Range: 34.0-46.6 Hemoglobin 13.2 g/dL (Normal) Range: 11.1-15.9 RBC 4.69 {x10E6/uL} (Normal) Range: 3.77-5.28 WBC 6.6 {x10E3/uL} (Normal) Range: 3.4-10.8 :18 METABOLIC PANEL, COMPREHENSIVE Comments: PATIENT WAS FASTINGPERFORMED BY: [facility] CenterFvjyhp5399 [facility] [id number] (25930) ALT (SGPT) 18 [iU]/L (Normal) Range: 0-32 AST (SGOT) 14 [iU]/L (Normal) Range: 0-40 Alkaline Phosphatase, S 71 [iU]/L (Normal) Range: 39-117 Bilirubin, Total 0.2 mg/dL (Normal) Range: 0.0-1.2 A/G Ratio 1.8 (Normal) Range: 1.1-2.5 Globulin, Total 2.4 g/dL (Normal) Range: 1.5-4.5 Albumin, Serum 4.4 g/dL (Normal) Range: 3.5-5.5 Protein, Total, Serum 6.8 g/dL (Normal) Range: 6.0-8.5 Calcium, Serum 9.3 mg/dL (Normal) Range: 8.7-10.2 Carbon Dioxide, Total 25 mmol/L (Normal) Range: 18-29 Chloride, Serum 102 mmol/L (Normal) Range: 97-108 Potassium, Serum 4.5 mmol/L (Normal) Range: 3.5-5.2 Sodium, Serum 141 mmol/L (Normal) Range: 134-144 BUN/Creatinine Ratio 15 (Normal) Range: 9-23 eGFR If Africn Am 95 mL/min/1.73 (Normal) eGFR If NonAfricn Am 82 mL/min/1.73 (Normal) Creatinine, Serum 0.79 mg/dL (Normal) Range: 0.57-1.00 BUN 12 mg/dL (Normal) Range: 6-24 Glucose, Serum 141 mg/dL (Abnormal) Range: 65-99 :18 LIPID PANEL (59447) Comments: PATIENT WAS FASTINGPERFORMED BY: [facility]6370 [facility] [id number] LDL/HDL Ratio 1.8 {ratio_units} (Normal) Range: 0.0-3.2 Comments: LDL/HDL Ratio Men Women 1/2 Avg.Risk 1.0 1.5 Av g.Risk 3.6 3.2 2X Avg.Risk 6.2 5.0 3X Avg.Risk 8.0 6.1 LDL Cholesterol Calc 109 mg/dL (Abnormal) Range: 0-99 VLDL Cholesterol Huy 29 mg/dL (Normal) Range: 5-40 HDL Cholesterol 61 mg/dL (Normal) Comments: According to ATP-III Guidelines, HDL-C >59 mg/dL is considered anegative risk factor for CHD. Triglycerides 144 mg/dL (Normal) Range: 0-149 Cholesterol, Total 199 mg/dL (Normal) Range: 100-199 :18 CALCIFIDIOL (69686) VIT D 25 Comments: PATIENT WAS FASTINGPERFORMED BY: [facility]Co[facility] CenterRchbvh9311 [facility] [id number] Vitamin D, 25-Hydroxy 27.9 ng/mL (Abnormal) Range: 30.0-100.0 Comments: Vitamin D deficiency has been defined by the [place] of[place]icine and an Endocrine Society practice guideline as alevel of serum 25-OH vitamin D less than 20 ng/mL (1,2).The Endocrine Society went on to further define vitamin Dinsufficiency as a level between 21 and 29 ng/mL (2).1. IOM ([place]). 2010. Dietary reference intakes for calcium and D. [place]: The National Academies Press.2. Sara MF, Johanna NC, Rosanna SOMMER, et al. Evaluation, treatment, and prevention of vitamin D deficiency: an Endocrine Society clinical practice guideline. JCEM. 2010; 96(7):1911-30. :08 HgA1C , Office (29563) HgA1C , Office 6.3 % (Normal) Range: 4.6 - 7.1 :08 Blood Glucose , Office (07877) Blood Glucose , Office 253 (Normal) :20 CALCIFIDIOL (37740) VIT D Comments: PATIENT WAS FASTINGPERFORMED BY: [facility]Co[facility] CenterViopsd3382 [place] [id number] Information: [id number] Vitamin D, 25-Hydroxy 32.3 ng/mL (Normal) Range: 30.0-100.0 Comments: Vitamin D deficiency has been defined by the [place] of[place]icine and an Endocrine Society practice guideline as alevel of serum 25-OH vitamin D less than 20 ng/mL (1,2).The Endocrine Society went on to further define vitamin Dinsufficiency as a level between 21 and 29 ng/mL (2).1. IOM ([place]). 2010. Dietary reference intakes for calcium and D. [place]: The National Academies Press.2. Sara MF, Johanna JOSEPH, Rosanna SOMMER, et al. Evaluation, treatment, and prevention of vitamin D deficiency: an Endocrine Society clinical practice guideline. JCEM. 2010; 96(7):1911-30. :52 HgA1C , Office (12197) HgA1C , Office 6.4 % (Normal) Range: 4.6 - 7.1 :52 Blood Glucose , Office (12639) Blood Glucose , Office 124 (Normal) :03 CBC W/Diff, Automated Comments: Test performed at:[facility] [address] [place], [place] [address] Absolute Lymph 1.29 {X10_3/ul} (Normal) Range: 0.83-4.51 Absolute Neut 3.7 {X10_3/uL} (Normal) Range: 2.0-7.7 IM GRAN % 0.000 % (Normal) Range: 0.0-0.9 Comments: IG% - Immature Granulocytes (promyelocytes, myelocytes andmetamyelocytes) > 1% indicates that a LEFT SHIFT is Present. BASO% 0.9 % (Normal) Range: 0-1 EO% 2.1 % (Normal) Range: 0-5 MONO% 8.9 % (Normal) Range: 0-10 LY% 23.0 % (Normal) Range: 19-41 NEUT% 65.1 % (Normal) Range: 47-70 MPV 9.5 fL (Normal) Range: 6.2-12.0 PLT 245 K/mm3 (Normal) Range: 150-450 RDW SD 42.9 fL (Normal) Range: 35.1-43.9 RDW CV 14.6 % (Normal) Range: 11.6-14.6 MCHC 33.5 {g/gl} (Normal) Range: 32-36 MCH 28.0 pg (Normal) Range: 27.0-32.0 MCV 83.4 fL (Normal) Range: 81-99 HCT 37.3 % (Normal) Range: 37-47 HGB 12.5 g/dL (Normal) Range: 12.0-15.0 RBC 4.47 {M/mm3} (Normal) Range: 4.2-5.4 WBC 5.6 K/mm3 (Normal) Range: 4.4-11.0 18-Aug-20149:03 Comprehensive Metabolic Profil Comments: Test performed at:[facility] [address] [place], [place] [address] GAP 7 (Normal) Range: 5-15 CO2 29.0 mmol/L (Normal) Range: 21.0-32.0 CL 103 mmol/L (Normal) Range: 98-107 K 3.9 mmol/L (Normal) Range: 3.5-5.1 NA 139 mmol/L (Normal) Range: 136-145 T BILI 0.30 mg/dL (Normal) Range: 0.20-1.00 ALT 25 U/L (Normal) Range: 12-78 ALK P 73 U/L (Normal) Range: 50-136 AST 15 U/L (Normal) Range: 15-37 CA 9.2 mg/dL (Normal) Range: 8.5-10.1 A/G 1.2 {RATIO} (Normal) Range: 0.9-2.4 GLOB 3.3 g/dL (Normal) Range: 2.7-4.2 ALB 3.9 g/dL (Normal) Range: 3.4-5.0 T PROT 7.2 g/dL (Normal) Range: 6.4-8.2 BUN/CRE 16.3 {RATIO} (Normal) Range: 10-20 EST GFR - AA 95 mL/min (Normal) EST GFR 78 mL/min (Normal) CREAT,SERUM 0.8 mg/dL (Normal) Range: 0.6-1.0 BUN 13 mg/dL (Normal) Range: 7-18 GLU 126 mg/dL (Abnormal) Range: 70-110 Comments: Fasting Glucose result greater than or equal to 126 mg/dLsuggests DIABETES MELLITUS per A.D.A. criteria. :43 Hepatic Function Panel (7) Comments: PATIENT WAS FASTINGPERFORMED BY: [facility] RoadLyons [facility] Medical CenterCdoyph4679 [facility] [id number] ALT (SGPT) 16 [iU]/L (Normal) Range: 0-32 AST (SGOT) 18 [iU]/L (Normal) Range: 0-40 Alkaline Phosphatase, S 71 [iU]/L (Normal) Range: 39-117 Bilirubin, Direct 0.12 mg/dL (Normal) Range: 0.00-0.40 Bilirubin, Total 0.4 mg/dL (Normal) Range: 0.0-1.2 Albumin, Serum 4.4 g/dL (Normal) Range: 3.5-5.5 Protein, Total, Serum 6.5 g/dL (Normal) Range: 6.0-8.5 :43 Lipid Panel With LDL/HDL Comments: PATIENT WAS FASTINGPERFORMED BY: [facility]avenLy[facility] CenterQjarai2310 [facility] [id number] Information: [id number] Ratio LDL/HDL Ratio 1.4 {ratio_units} (Normal) Range: 0.0-3.2 Comments: LDL/HDL Ratio Men Women 1/2 Avg.Risk 1.0 1.5 Av g.Risk 3.6 3.2 2X Avg.Risk 6.2 5.0 3X Avg.Risk 8.0 6.1 LDL Cholesterol Calc 80 mg/dL (Normal) Range: 0-99 VLDL Cholesterol Huy 22 mg/dL (Normal) Range: 5-40 HDL Cholesterol 56 mg/dL (Normal) Comments: According to ATP-III Guidelines, HDL-C >59 mg/dL is considered anegative risk factor for CHD. Triglycerides 110 mg/dL (Normal) Range: 0-149 Cholesterol, Total 158 mg/dL (Normal) Range: 100-199 :13 CBC W/Diff, Automated Comments: Test performed at:[facility] Iuqzqmnyjn8[address] [facility] [place] [address] Absolute Lymph 2.30 {X10_3/ul} (Normal) Range: 0.83-4.51 Absolute Neut 5.0 {X10_3/uL} (Normal) Range: 2.0-7.7 IM GRAN % 0.200 % (Normal) Range: 0.0-0.9 Comments: IG% - Immature Granulocytes (promyelocytes, myelocytes andmetamyelocytes) > 1% indicates that a LEFT SHIFT is Present. BASO% 0.5 % (Normal) Range: 0-1 EO% 2.7 % (Normal) Range: 0-5 MONO% 7.4 % (Normal) Range: 0-10 LY% 28.0 % (Normal) Range: 19-41 NEUT% 61.2 % (Normal) Range: 47-70 MPV 8.9 fL (Normal) Range: 6.2-12.0 PLT 235 K/mm3 (Normal) Range: 150-450 RDW SD 41.4 fL (Normal) Range: 35.1-43.9 RDW CV 13.5 % (Normal) Range: 11.6-14.6 MCHC 32.6 {g/gl} (Normal) Range: 32-36 MCH 27.7 pg (Normal) Range: 27.0-32.0 MCV 85.0 fL (Normal) Range: 81-99 HCT 36.8 % (Abnormal) Range: 37-47 HGB 12.0 g/dL (Normal) Range: 12.0-15.0 RBC 4.33 {M/mm3} (Normal) Range: 4.2-5.4 WBC 8.2 K/mm3 (Normal) Range: 4.4-11.0 :13 Comprehensive Metabolic Profil Comments: Test performed at:[facility] [address] [place], [place] [id number] ; ordered by nathan GAP 7 (Normal) Range: 5-15 CO2 29.0 mmol/L (Normal) Range: 21.0-32.0 CL 102 mmol/L (Normal) Range: 98-107 K 4.2 mmol/L (Normal) Range: 3.5-5.1 NA 138 mmol/L (Normal) Range: 136-145 T BILI 0.30 mg/dL (Normal) Range: 0.00-4.00 ALT 28 U/L (Normal) Range: 12-78 ALK P 82 U/L (Normal) Range: 50-136 AST 18 U/L (Normal) Range: 15-37 CA 9.2 mg/dL (Normal) Range: 8.5-10.1 A/G 1.2 {RATIO} (Normal) Range: 0.9-2.4 GLOB 3.2 g/dL (Normal) Range: 2.7-4.2 ALB 3.8 g/dL (Normal) Range: 3.4-5.0 T PROT 7.0 g/dL (Normal) Range: 6.4-8.2 BUN/CRE 15.0 {RATIO} (Normal) Range: 10-20 EST GFR - AA 95 mL/min (Normal) EST GFR 78 mL/min (Normal) CREAT,SERUM 0.8 mg/dL (Normal) Range: 0.6-1.0 BUN 12 mg/dL (Normal) Range: 7-18 GLU 123 mg/dL (Abnormal) Range: 70-110 Comments: Fasting Glucose result from 110 to <126 mg/dLsuggests IMPAIRED HOMEOSTASIS per A.D.A. criteria. 66-Hav-453076:18 CBC W/Diff, Automated Comments: Test performed at:[facility] [address]ha[address] [place], [place] [id number] Absolute Lymph 2.19 {X10_3/ul} (Normal) Range: 0.83-4.51 Absolute Neut 3.4 {X10_3/uL} (Normal) Range: 2.0-7.7 IM GRAN % 0.200 % (Normal) Range: 0.0-0.9 Comments: IG% - Immature Granulocytes (promyelocytes, myelocytes andmetamyelocytes) > 1% indicates that a LEFT SHIFT is Present. BASO% 0.6 % (Normal) Range: 0-1 EO% 3.0 % (Normal) Range: 0-5 MONO% 8.1 % (Normal) Range: 0-10 LY% 34.7 % (Normal) Range: 19-41 NEUT% 53.4 % (Normal) Range: 47-70 MPV 9.3 fL (Normal) Range: 6.2-12.0 PLT 205 K/mm3 (Normal) Range: 150-450 RDW SD 41.1 fL (Normal) Range: 35.1-43.9 RDW CV 13.4 % (Normal) Range: 11.6-14.6 MCHC 32.5 {g/gl} (Normal) Range: 32-36 MCH 28.1 pg (Normal) Range: 27.0-32.0 MCV 86.4 fL (Normal) Range: 81-99 HCT 38.2 % (Normal) Range: 37-47 HGB 12.4 g/dL (Normal) Range: 12.0-15.0 RBC 4.42 {M/mm3} (Normal) Range: 4.2-5.4 WBC 6.3 K/mm3 (Normal) Range: 4.4-11.0 77-Bug-886839:18 Comprehensive Metabolic Profil Comments: Test performed at:[facility] [address]rixr[address] [place] [address] GAP 4 (Abnormal) Range: 5-15 CO2 32.0 mmol/L (Normal) Range: 21.0-32.0 CL 103 mmol/L (Normal) Range: 98-107 K 4.3 mmol/L (Normal) Range: 3.5-5.1 NA 139 mmol/L (Normal) Range: 136-145 T BILI 0.30 mg/dL (Normal) Range: 0.00-4.00 ALT 29 U/L (Normal) Range: 12-78 ALK P 77 U/L (Normal) Range: 50-136 AST 17 U/L (Normal) Range: 15-37 CA 8.5 mg/dL (Normal) Range: 8.5-10.1 A/G 1.1 {RATIO} (Normal) Range: 0.9-2.4 GLOB 3.5 g/dL (Normal) Range: 2.7-4.2 ALB 3.8 g/dL (Normal) Range: 3.4-5.0 T PROT 7.3 g/dL (Normal) Range: 6.4-8.2 BUN/CRE 12.5 {RATIO} (Normal) Range: 10-20 EST GFR - AA 95 mL/min (Normal) EST GFR 78 mL/min (Normal) CREAT,SERUM 0.8 mg/dL (Normal) Range: 0.6-1.0 BUN 10 mg/dL (Normal) Range: 7-18 GLU 113 mg/dL (Abnormal) Range: 70-110 Comments: Fasting Glucose result from 110 to <126 mg/dLsuggests IMPAIRED HOMEOSTASIS per A.D.A. criteria. 38-Kpi-166046:01 LUKE CULTURE-OTHER (36091) Comments: PATIENT NOT FASTINGPERFORMED BY: [facility] Wrbusq2733 [facility] [id number] Information: SRC:THRT [id number] Result 1 RRF (Normal) Comments: Routine respiratory radha Upper Respiratory Culture Final report (Normal) 56-Squ-44160:11 Romance Client Glucose Comments: Test performed at:[facility] [address]ildew[address] [place] [address] GLU 124 mg/dL (Abnormal) Range: 70-110 Comments: Fasting Glucose result from 110 to <126 mg/dLsuggests IMPAIRED HOMEOSTASIS per A.D.A. criteria. 19-Ndn-18487:11 Romance Client Lipid Profile Comments: Test performed at:[facility] Yfngvpjrsn9012 [facility] [place] [address] VLDL 32 mg/dL (Normal) Range: 5-40 LDL 112 mg/dL (Normal) Range: 0-130 HDL 54 mg/dL (Normal) Comments: Reference Range HDL <40 mg/dL Low HDL Cholesterol HDL >or= 60 mg/dL High HDL Cholesterol TRIG 158 mg/dL (Normal) Range: 0-199 Comments: Serum Triglycerides Reference Interval Normal <150 mg/dL Borderline high 150 - 199 mg/dL High 200 - 499 mg/dL Very High > or = 500 mg/dL CHOL 198 mg/dL (Normal) Comments: <200 mg/dL Desirable 200-240 mg/dL Borderline >240 mg/dL High Risk :01 Microscopic Examination Comments: PATIENT WAS FASTINGPERFORMED BY: [facility] Gapote1964 [facility] [id number] Bacteria None seen (Normal) Mucus Threads Present (Normal) Epithelial Cells (non renal) 0-10 {/hpf} (Normal) Range: 0 - 10 RBC 0-2 {/hpf} (Normal) Range: 0 - 2 WBC 0-5 {/hpf} (Normal) Range: 0 - 5 :01 Vitamin D Hydroxy (56090) Comments: PATIENT WAS FASTINGPERFORMED BY: [employer] [facility] [place] [id number] Vitamin D, 25-Hydroxy 31.0 ng/mL (Normal) Range: 30.0-100.0 Comments: Vitamin D deficiency has been defined by the [place] of[place]icine and an Endocrine Society practice guideline as alevel of serum 25-OH vitamin D less than 20 ng/mL (1,2).The Endocrine Society went on to further define vitamin Dinsufficiency as a level between 21 and 29 ng/mL (2).1. IOM ([place] of [employer]). 2010. Dietary reference intakes for calcium and D. [place]: The National Academies Press.2. Sara MF, Johanna NC, Rosanna SOMMER, et al. Evaluation, treatment, and prevention of vitamin D deficiency: an Endocrine Society clinical practice guideline. JCEM. 2010; 96(7):1911-30. :01 TSH (43131) Comments: PATIENT WAS FASTINGPERFORMED BY: [facility] Msmukc5107 [address] [facility] [place] [id number] TSH 0.986 {uIU/mL} (Normal) Range: 0.450-4.500 :01 URINALYSIS, W/ MICRO (79387) Comments: PATIENT WAS FASTINGPERFORMED BY: [employer] [facility] Cudofu[address]24 [address] [facility] [place] [id number] Microscopic Examination See below: (Normal) Comments: Microscopic was indicated and was performed. Microscopic Examination MICRON (Normal) Comments: Microscopic follows if indicated. Nitrite, Urine Negative (Normal) Urobilinogen,Semi-Qn 0.2 mg/dL (Normal) Range: 0.0-1.9 Bilirubin Negative (Normal) Occult Blood Negative (Normal) Ketones Negative (Normal) Glucose Negative (Normal) Protein Negative (Normal) WBC Esterase Negative (Normal) Appearance Clear (Normal) Urine-Color Yellow (Normal) pH 6.5 (Normal) Range: 5.0-7.5 Specific Lindley 1.018 (Normal) Range: 1.005-1.030 :01 MICROALBUMIN: CREATININE RATIO Comments: PATIENT WAS FASTINGPERFORMED BY: [employer] [facility]FlintCropIn TechnologiesUNC [facility] App[facility] [id number] ([id number]) AND (86732) Microalb/Creat Ratio 2.1 {mg/g_creat} (Normal) Range: 0.0-30.0 Microalbumin, Urine 2.0 ug/mL (Normal) Range: 0.0-17.0 Creatinine, Urine 93.5 mg/dL (Normal) Range: 15.0-278.0 : METABOLIC PANEL, COMPREHENSIVE Comments: PATIENT WAS FASTINGPERFORMED BY: [employer]6370 [facility] HospitalCropIn TechnologiesUNC Health App[facility] [id number] (52424) ALT (SGPT) 12 [iU]/L (Normal) Range: 0-32 AST (SGOT) 14 [iU]/L (Normal) Range: 0-40 Alkaline Phosphatase, S 75 [iU]/L (Normal) Range: 39-117 Bilirubin, Total 0.2 mg/dL (Normal) Range: 0.0-1.2 A/G Ratio 1.6 (Normal) Range: 1.1-2.5 Globulin, Total 2.5 g/dL (Normal) Range: 1.5-4.5 Albumin, Serum 4.1 g/dL (Normal) Range: 3.5-5.5 Protein, Total, Serum 6.6 g/dL (Normal) Range: 6.0-8.5 Calcium, Serum 9.3 mg/dL (Normal) Range: 8.7-10.2 Carbon Dioxide, Total 26 mmol/L (Normal) Range: 18-29 Chloride, Serum 100 mmol/L (Normal) Range: 97-108 Potassium, Serum 4.6 mmol/L (Normal) Range: 3.5-5.2 Sodium, Serum 141 mmol/L (Normal) Range: 134-144 BUN/Creatinine Ratio 16 (Normal) Range: 9-23 eGFR If Africn Am 102 mL/min/1.73 (Normal) eGFR If NonAfricn Am 88 mL/min/1.73 (Normal) Creatinine, Serum 0.75 mg/dL (Normal) Range: 0.57-1.00 BUN 12 mg/dL (Normal) Range: 6-24 Glucose, Serum 130 mg/dL (Abnormal) Range: 65-99 :01 LIPID PANEL (75929) Comments: PATIENT WAS FASTINGPERFORMED BY: [employer] Urmwyc1180 [facility] [id number] LDL/HDL Ratio 2.3 {ratio_units} (Normal) Range: 0.0-3.2 Comments: LDL/HDL Ratio Men Women 1/2 Avg.Risk 1.0 1.5 Av g.Risk 3.6 3.2 2X Avg.Risk 6.2 5.0 3X Avg.Risk 8.0 6.1 LDL Cholesterol Calc 119 mg/dL (Abnormal) Range: 0-99 VLDL Cholesterol Huy 28 mg/dL (Normal) Range: 5-40 HDL Cholesterol 51 mg/dL (Normal) Comments: According to ATP-III Guidelines, HDL-C >59 mg/dL is considered anegative risk factor for CHD. Triglycerides 138 mg/dL (Normal) Range: 0-149 Cholesterol, Total 198 mg/dL (Normal) Range: 100-199 :01 CBC W/AUTO DIFF WBC ([id number]) Comments: PATIENT WAS FASTINGPERFORMED BY: [id number] [id number] Immature Grans (Abs) 0.0 {x10E3/uL} (Normal) Range: 0.0-0.1 Immature Granulocytes 0 % (Normal) Baso (Absolute) 0.1 {x10E3/uL} (Normal) Range: 0.0-0.2 Eos (Absolute) 0.1 {x10E3/uL} (Normal) Range: 0.0-0.4 Monocytes(Absolute) 0.3 {x10E3/uL} (Normal) Range: 0.1-0.9 Lymphs (Absolute) 1.6 {x10E3/uL} (Normal) Range: 0.7-3.1 Neutrophils (Absolute) 3.4 {x10E3/uL} (Normal) Range: 1.4-7.0 Basos 1 % (Normal) Eos 2 % (Normal) Monocytes 6 % (Normal) Lymphs 29 % (Normal) Neutrophils 62 % (Normal) Platelets 265 {x10E3/uL} (Normal) Range: 150-379 RDW 13.7 % (Normal) Range: 12.3-15.4 MCHC 33.1 g/dL (Normal) Range: 31.5-35.7 MCH 28.0 pg (Normal) Range: 26.6-33.0 MCV 85 fL (Normal) Range: 79-97 Hematocrit 38.1 % (Normal) Range: 34.0-46.6 Hemoglobin 12.6 g/dL (Normal) Range: 11.1-15.9 RBC 4.50 {x10E6/uL} (Normal) Range: 3.77-5.28 WBC 5.4 {x10E3/uL} (Normal) Range: 3.4-10.8 :25 HgA1C , Office (80482) HgA1C , Office 6.5 % (Normal) Range: 4.6 - 7.1 :25 Blood Glucose , Office ([id number]) Blood Glucose , Office 143 (Normal) :36 URINE LUKE CULTURE (BALDO Comments: PATIENT NOT FASTINGPERFORMED BY: [facility] [id number] [id number] Information: SRC:UR [id number] COL COUNT) ([id number]) Result 1 PROTMP (Abnormal) Comments: Proteus mirabilis/rmofczd157 Colonies/mLBeta hemolytic Streptococcus, group B10,000-25,000 colony forming units per mLPenicillin and ampicillin are drugs of choice for treatment ofbeta-hemolytic strepto coccal infections. Susceptibility testing ofpenicillins and other beta-lactam agents approved by the FDA fortreatment of beta-hemolytic streptococcal infections need not beperformed routinely because no nsusceptible isolates are extremelyrare in any beta-hemolytic streptococcus and have not been reportedfor Streptococcus pyogenes (group A). (CLSI 2011) S = Susceptible; I = Intermediate; R = Res istant P = Positive; N = Negative MICS are expressed in micrograms per mL Antibiotic RSLT#1 RSLT#2 RSLT#3 RSLT#4Amoxicillin/Clavulanic Acid SAmpicillin SCefepime SCeftriaxone SCefuroxime SCephalothin SCiprofloxacin SErtape nem SGentamicin SLevofloxacin SNitrofurantoin RPiperacillin STetracycline RTobramycin STrimethoprim/Sulfa S Urine Final report Culture,Comprehensi (Abnormal) ve 12-Gzq-31577:17 Urinalysis, Office (56070) UA - LEUKOCYTE ESTERASE Large (Normal) UA - NITRITE Positive (Normal) URINE UROBILINGN BALDO TIMED Normal mg/dL (Normal) UA - PROTEIN Trace mg/dL (Normal) UA - PH 6.5 (Normal) UA - BLOOD Negative (Normal) UA - SPECIFIC GRAVITY 1.025 (Normal) UA - KETONES Moderate mg/dL (Normal) UA - BILIRUBIN Negative (Normal) UA - GLUCOSE Negative (Normal) 51-Pgp-892558:42 CBCD ALC 1.95 {X10_3/ul} (Normal) Range: 0.83-4.51 ANC 3.7 {X10_3/uL} (Normal) Range: 2.0-7.7 IG% 0.300 % (Normal) Range: 0.0-0.9 Comments: IG% - Immature Granulocytes (promyelocytes, myelocytes andmetamyelocytes) > 1% indicates that a LEFT SHIFT is Present. B% 0.8 % (Normal) Range: 0-1 E% 2.8 % (Normal) Range: 0-5 M% 8.5 % (Normal) Range: 0-10 L% 30.2 % (Normal) Range: 19-41 N% 57.4 % (Normal) Range: 47-70 MPV 9.5 fL (Normal) Range: 6.2-12.0 PLT 230 K/mm3 (Normal) Range: 150-450 RDWSD 44.0 fL (Abnormal) Range: 35.1-43.9 RDWCV 13.8 % (Normal) Range: 11.6-14.6 MCHC 32.2 {g/gl} (Normal) Range: 32-36 MCH 28.3 pg (Normal) Range: 27.0-32.0 MCV 87.9 fL (Normal) Range: 81-99 HCT 37.0 % (Normal) Range: 37-47 HGB 11.9 g/dL (Abnormal) Range: 12.0-15.0 RBC 4.21 {M/mm3} (Normal) Range: 4.2-5.4 WBC 6.5 K/mm3 (Normal) Range: 4.4-11.0 54-Xtt-500790:42 CMP GAP 5 (Normal) Range: 5-15 CO2 29.0 mmol/L (Normal) Range: 21.0-32.0 CL 105 mmol/L (Normal) Range: 98-107 K 3.9 mmol/L (Normal) Range: 3.5-5.1 NA 139 mmol/L (Normal) Range: 136-145 BIT 0.30 mg/dL (Normal) Range: 0.00-4.00 ALT 23 U/L (Normal) Range: 12-78 ALK 77 U/L (Normal) Range: 50-136 AST 14 U/L (Abnormal) Range: 15-37 CA 8.7 mg/dL (Normal) Range: 8.5-10.1 AG 1.1 {RATIO} (Normal) Range: 0.9-2.4 GLOB 3.2 g/dL (Normal) Range: 2.7-4.2 ALB 3.5 g/dL (Normal) Range: 3.4-5.0 TPROT 6.7 g/dL (Normal) Range: 6.4-8.2 BC 11.3 {RATIO} (Normal) Range: 10-20 ECRCL 57.84 ml/min (Normal) GFRAA 95 mL/min (Normal) GFR 78 mL/min (Normal) CREAT 0.8 mg/dL (Normal) Range: 0.6-1.0 BUN 9 mg/dL (Normal) Range: 7-18 GLU 137 mg/dL (Abnormal) Range: 70-110 Comments: Fasting Glucose result greater than or equal to 126 mg/dLsuggests DIABETES MELLITUS per A.D.A. criteria. 03-Aiz-766984:09 LUKE CULTURE-OTHER (96535) Comments: PATIENT NOT FASTINGPERFORMED BY: CB [facility] Zubdwo8640 [facility] [id number] Information: SRC:THRT [id number] Result 1 BETAGG (Abnormal) Comments: Beta hemolytic Streptococcus, group GModerate growthPenicillin and ampicillin are drugs of choice for treatment ofbeta- hemolytic streptococcal infections. Susceptibility testing ofpenicillins and other beta-lactam agents approved by the FDA fortreatment of beta-hemolytic streptococcal infections need not beperformed routinely because nonsusceptible isolates are extremelyrare in any beta-hemolytic stre ptococcus and have not been reportedfor Streptococcus pyogenes (group A). (CLSI 2011) Upper Respiratory Culture Final report (Abnormal) 91-Qwc-89480:09 Rapid Strep Test, Office (92069) Rapid Strep Test, Office Negative (Normal) :12 MICROALBUMIN: CREATININE RATIO Comments: PATIENT WAS FASTINGPERFORMED BY: [facility] [id number] (84396) AND (58665) Microalb/Creat Ratio 6.3 {mg/g_creat} (Normal) Range: 0.0-30.0 Microalbumin, Urine 10.0 ug/mL (Normal) Range: 0.0-17.0 Creatinine, Urine 157.7 mg/dL (Normal) Range: 15.0-278.0 :12 CALCIFEDIOL (52956) Comments: PATIENT WAS FASTINGPERFORMED BY: [employer]6370 [facility]FlintCropIn TechnologiesUNC Health App[facility] [id number] Vitamin D, 25-Hydroxy 26.6 ng/mL (Abnormal) Range: 30.0-100.0 Comments: Vitamin D deficiency has been defined by the [place] of[place]icine and an Endocrine Society practice guideline as alevel of serum 25-OH vitamin D less than 20 ng/mL (1,2).The Endocrine Society went on to further define vitamin Dinsufficiency as a level between 21 and 29 ng/mL (2).1. IOM ([place] of [employer]). 2010. Dietary reference intakes for calcium and D. [place]: The National Academies Press.2. Sara MF, Johanna NC, Rosanna SOMMER, et al. Evaluation, treatment, and prevention of vitamin D deficiency: an Endocrine Society clinical practice guideline. JCEM. 2010; 96(7):1911-30. :12 CBC with manual diff Comments: PATIENT WAS FASTINGPERFORMED BY: [facility] [place] [id number] Information: [id number] (44145) Immature Grans (Abs) 0.0 {x10E3/uL} (Normal) Range: 0.0-0.1 Immature Granulocytes 0 % (Normal) Baso (Absolute) 0.0 {x10E3/uL} (Normal) Range: 0.0-0.2 Eos (Absolute) 0.1 {x10E3/uL} (Normal) Range: 0.0-0.4 Monocytes(Absolute) 0.4 {x10E3/uL} (Normal) Range: 0.1-0.9 Lymphs (Absolute) 1.4 {x10E3/uL} (Normal) Range: 0.7-3.1 Neutrophils (Absolute) 3.9 {x10E3/uL} (Normal) Range: 1.4-7.0 Basos 0 % (Normal) Eos 2 % (Normal) Monocytes 7 % (Normal) Lymphs 24 % (Normal) Neutrophils 67 % (Normal) Platelets 283 {x10E3/uL} (Normal) Range: 150-379 RDW 13.8 % (Normal) Range: 12.3-15.4 MCHC 33.1 g/dL (Normal) Range: 31.5-35.7 MCH 27.8 pg (Normal) Range: 26.6-33.0 MCV 84 fL (Normal) Range: 79-97 Hematocrit 39.3 % (Normal) Range: 34.0-46.6 Hemoglobin 13.0 g/dL (Normal) Range: 11.1-15.9 RBC 4.68 {x10E6/uL} (Normal) Range: 3.77-5.28 WBC 5.9 {x10E3/uL} (Normal) Range: 3.4-10.8 :12 TSH (THYROID STIMULATING Comments: PATIENT WAS FASTINGPERFORMED BY: [facility]Lyons [facility] Medical CenterJzizzx6550 [facility] [id number] HORMONE) (01625) TSH 1.420 {uIU/mL} (Normal) Range: 0.450-4.500 :12 LIPID PANEL (76173) Comments: PATIENT WAS FASTINGPERFORMED BY: [facility]avenLyons [facility] Medical CenterApcalr8216 [facility] [id number] LDL/HDL Ratio 2.4 {ratio_units} (Normal) Range: 0.0-3.2 Comments: LDL/HDL Ratio Men Women 1/2 Avg.Risk 1.0 1.5 Av g.Risk 3.6 3.2 2X Avg.Risk 6.2 5.0 3X Avg.Risk 8.0 6.1 LDL Cholesterol Calc 127 mg/dL (Abnormal) Range: 0-99 VLDL Cholesterol Huy 28 mg/dL (Normal) Range: 5-40 HDL Cholesterol 53 mg/dL (Normal) Comments: According to ATP-III Guidelines, HDL-C >59 mg/dL is considered anegative risk factor for CHD. Triglycerides 139 mg/dL (Normal) Range: 0-149 Cholesterol, Total 208 mg/dL (Abnormal) Range: 100-199 19-Zsc-96216:12 METABOLIC PANEL, COMPREHENSIVE Comments: PATIENT WAS FASTINGPERFORMED BY: [facility] Abeudm0372 [facility] [id number] (43141) ALT (SGPT) 18 [iU]/L (Normal) Range: 0-32 AST (SGOT) 20 [iU]/L (Normal) Range: 0-40 Alkaline Phosphatase, S 84 [iU]/L (Normal) Range: 39-117 Bilirubin, Total 0.3 mg/dL (Normal) Range: 0.0-1.2 A/G Ratio 1.8 (Normal) Range: 1.1-2.5 Globulin, Total 2.4 g/dL (Normal) Range: 1.5-4.5 Albumin, Serum 4.3 g/dL (Normal) Range: 3.5-5.5 Protein, Total, Serum 6.7 g/dL (Normal) Range: 6.0-8.5 Calcium, Serum 9.1 mg/dL (Normal) Range: 8.7-10.2 Carbon Dioxide, Total 25 mmol/L (Normal) Range: 18-29 Chloride, Serum 100 mmol/L (Normal) Range: 97-108 Potassium, Serum 4.3 mmol/L (Normal) Range: 3.5-5.2 Sodium, Serum 139 mmol/L (Normal) Range: 134-144 BUN/Creatinine Ratio 18 (Normal) Range: 9-23 eGFR If Africn Am 108 mL/min/1.73 (Normal) eGFR If NonAfricn Am 94 mL/min/1.73 (Normal) Creatinine, Serum 0.71 mg/dL (Normal) Range: 0.57-1.00 BUN 13 mg/dL (Normal) Range: 6-24 Glucose, Serum 164 mg/dL (Abnormal) Range: 65-99 :21 HgA1C , Office (12280) HgA1C , Office 6.1 % (Normal) Range: 4.6 - 7.1 :21 Blood Glucose , Office (56691) Blood Glucose , Office 153 (Normal) :54 CBCD ALC 2.36 {X10_3/ul} (Normal) Range: 0.83-4.51 ANC 3.1 {X10_3/uL} (Normal) Range: 2.0-7.7 IG% 0.200 % (Normal) Range: 0.0-0.9 Comments: IG% - Immature Granulocytes (promyelocytes, myelocytes andmetamyelocytes) > 1% indicates that a LEFT SHIFT is Present. B% 1.0 % (Normal) Range: 0-1 E% 2.1 % (Normal) Range: 0-5 M% 8.0 % (Normal) Range: 0-10 L% 38.5 % (Normal) Range: 19-41 N% 50.2 % (Normal) Range: 47-70 MPV 9.7 fL (Normal) Range: 6.2-12.0 PLT 214 K/mm3 (Normal) Range: 150-450 RDWSD 41.9 fL (Normal) Range: 35.1-43.9 RDWCV 13.9 % (Normal) Range: 11.6-14.6 MCHC 33.2 {g/gl} (Normal) Range: 32-36 MCH 27.8 pg (Normal) Range: 27.0-32.0 MCV 83.8 fL (Normal) Range: 81-99 HCT 39.2 % (Normal) Range: 37-47 HGB 13.0 g/dL (Normal) Range: 12.0-15.0 RBC 4.68 {M/mm3} (Normal) Range: 4.2-5.4 WBC 6.1 K/mm3 (Normal) Range: 4.4-11.0 1-Doo-006527:54 CMP GAP 7 (Normal) Range: 5-15 CO2 32.0 mmol/L (Normal) Range: 21.0-32.0 CL 102 mmol/L (Normal) Range: 98-107 K 4.0 mmol/L (Normal) Range: 3.5-5.1 NA 141 mmol/L (Normal) Range: 136-145 BIT 0.30 mg/dL (Normal) Range: 0.00-1.00 ALT 26 U/L (Normal) Range: 12-78 ALK 67 U/L (Normal) Range: 45-117 AST 18 U/L (Normal) Range: 15-37 CA 9.4 mg/dL (Normal) Range: 8.5-10.1 AG 1.2 {RATIO} (Normal) Range: 0.9-2.4 GLOB 3.4 g/dL (Normal) Range: 2.7-4.2 ALB 4.0 g/dL (Normal) Range: 3.4-5.0 TPROT 7.4 g/dL (Normal) Range: 6.4-8.2 BC 20.0 {RATIO} (Normal) Range: 10-20 GFRAA 110 mL/min (Normal) CREAT 0.7 mg/dL (Normal) Range: 0.6-1.0 GFR 91 mL/min (Normal) BUN 14 mg/dL (Normal) Range: 7-18 GLU 86 mg/dL (Normal) Range: 70-110 42-Cij-313900:04 CBCD ANC 3.8 {X10_3/uL} (Normal) Range: 2.0-7.7 IG% 0.200 % (Normal) Range: 0.0-0.9 Comments: IG% - Immature Granulocytes (promyelocytes, myelocytes andmetamyelocytes) > 1% indicates that a LEFT SHIFT is Present. B% 0.7 % (Normal) Range: 0-1 E% 1.7 % (Normal) Range: 0-5 M% 6.9 % (Normal) Range: 0-10 L% 27.4 % (Normal) Range: 19-41 MPV 9.3 fL (Normal) Range: 6.2-12.0 N% 63.1 % (Normal) Range: 47-70 PLT 226 K/mm3 (Normal) Range: 150-450 RDWSD 41.5 fL (Normal) Range: 35.1-43.9 RDWCV 13.6 % (Normal) Range: 11.6-14.6 MCHC 33.5 {g/gl} (Normal) Range: 32-36 MCH 28.1 pg (Normal) Range: 27.0-32.0 MCV 83.7 fL (Normal) Range: 81-99 HCT 37.0 % (Normal) Range: 37-47 HGB 12.4 g/dL (Normal) Range: 12.0-15.0 RBC 4.42 {M/mm3} (Normal) Range: 4.2-5.4 WBC 6.1 K/mm3 (Normal) Range: 4.4-11.0 56-Umx-697215:04 CMP CO2 29.0 mmol/L (Normal) Range: 21.0-32.0 GAP 5 (Normal) Range: 5-15 CL 102 mmol/L (Normal) Range: 98-107 K 4.3 mmol/L (Normal) Range: 3.5-5.1 BIT 0.30 mg/dL (Normal) Range: 0.00-1.00 NA 136 mmol/L (Normal) Range: 136-145 ALT 20 U/L (Normal) Range: 12-78 ALK 74 U/L (Normal) Range: 45-117 AST 20 U/L (Normal) Range: 15-37 CA 9.1 mg/dL (Normal) Range: 8.5-10.1 AG 1.5 {RATIO} (Normal) Range: 0.9-2.4 GLOB 2.7 g/dL (Normal) Range: 2.7-4.2 ALB 4.1 g/dL (Normal) Range: 3.4-5.0 BC 20.0 {RATIO} (Normal) Range: 10-20 TPROT 6.8 g/dL (Normal) Range: 6.4-8.2 GFRAA 110 mL/min (Normal) GFR 91 mL/min (Normal) CREAT 0.7 mg/dL (Normal) Range: 0.6-1.0 BUN 14 mg/dL (Normal) Range: 7-18 GLU 90 mg/dL (Normal) Range: 70-110 3-Gbz-664487:49 Microscopic Examination Comments: PATIENT WAS FASTINGPERFORMED BY: [facility]6370 [facility] [id number] Bacteria None seen (Normal) Mucus Threads Present (Normal) Epithelial Cells (non renal) 0-10 {/hpf} (Normal) Range: 0 - 10 RBC 0-3 {/hpf} (Normal) Range: 0 - 3 WBC 0-5 {/hpf} (Normal) Range: 0 - 5 :09 HgA1C , Office (63255) HgA1C , Office 6.2 % (Normal) Range: 4.6 - 7.1 :09 Blood Glucose , Office (36003) Blood Glucose , Office 152 (Normal) :12 LIPID PANEL (65515) Comments: PATIENT WAS FASTINGPERFORMED BY: [facility]6370 [facility] [id number] LDL Cholesterol Calc 93 mg/dL (Normal) Range: 0-99 LDL/HDL Ratio 1.7 {ratio_units} (Normal) Range: 0.0-3.2 VLDL Cholesterol Huy 28 mg/dL (Normal) Range: 5-40 HDL Cholesterol 56 mg/dL (Normal) Comments: According to ATP-III Guidelines, HDL-C >59 mg/dL is considered anegative risk factor for CHD. Cholesterol, Total 177 mg/dL (Normal) Range: 100-199 Triglycerides 141 mg/dL (Normal) Range: 0-149 :12 TSH (89980) Comments: PATIENT WAS FASTINGPERFORMED BY: [facility] [id number] TSH 1.090 {uIU/mL} (Normal) Range: 0.450-4.500 20-Jun-20138:12 MICROALBUMIN: CREATININE RATIO Comments: PATIENT WAS FASTINGPERFORMED BY: [facility] [id number] ([id number]) AND (84274) Microalb/Creat Ratio 4.4 {mg/g_creat} (Normal) Range: 0.0-30.0 Creatinine, Urine 110.3 mg/dL (Normal) Range: 15.0-278.0 Microalbumin, Urine 4.9 ug/mL (Normal) Range: 0.0-17.0 :12 URINALYSIS, W/ MICRO (60940) Comments: PATIENT WAS FASTINGPERFORMED BY: [employer]70 [facility] [id number] Microscopic Examination See below: (Normal) Microscopic Examination MICRON (Normal) Comments: Microscopic follows if indicated. Nitrite, Urine Negative (Normal) Urobilinogen,Semi-Qn 0.2 mg/dL (Normal) Range: 0.0-1.9 Bilirubin Negative (Normal) Ketones Negative (Normal) Occult Blood Negative (Normal) Glucose Negative (Normal) Protein Negative (Normal) WBC Esterase Negative (Normal) Appearance Clear (Normal) Urine-Color Yellow (Normal) pH 7.0 (Normal) Range: 5.0-7.5 Specific Lindley 1.021 (Normal) Range: 1.005-1.030 :12 METABOLIC PANEL, COMPREHENSIVE Comments: PATIENT WAS FASTINGPERFORMED BY: [employer]6370 [facility] [id number] (44012) ALT (SGPT) 14 [iU]/L (Normal) Range: 0-32 AST (SGOT) 17 [iU]/L (Normal) Range: 0-40 Alkaline Phosphatase, S 70 [iU]/L (Normal) Range: 39-117 Bilirubin, Total 0.3 mg/dL (Normal) Range: 0.0-1.2 A/G Ratio 1.9 (Normal) Range: 1.1-2.5 Globulin, Total 2.3 g/dL (Normal) Range: 1.5-4.5 Albumin, Serum 4.4 g/dL (Normal) Range: 3.5-5.5 Protein, Total, Serum 6.7 g/dL (Normal) Range: 6.0-8.5 Calcium, Serum 9.7 mg/dL (Normal) Range: 8.7-10.2 Carbon Dioxide, Total 27 mmol/L (Normal) Range: 19-28 Chloride, Serum 101 mmol/L (Normal) Range: 97-108 Potassium, Serum 4.6 mmol/L (Normal) Range: 3.5-5.2 Sodium, Serum 141 mmol/L (Normal) Range: 134-144 BUN/Creatinine Ratio 16 (Normal) Range: 9-23 eGFR If Africn Am 98 mL/min/1.73 (Normal) eGFR If NonAfricn Am 85 mL/min/1.73 (Normal) BUN 12 mg/dL (Normal) Range: 6-24 Creatinine, Serum 0.77 mg/dL (Normal) Range: 0.57-1.00 Glucose, Serum 125 mg/dL (Abnormal) Range: 65-99 20-Jun-20138:12 CBC WITH MANUAL DIFF Comments: PATIENT WAS FASTINGPERFORMED BY: [facility] [id number] Information: [id number] (54343) Immature Grans (Abs) 0.0 {x10E3/uL} (Normal) Range: 0.0-0.1 Immature Granulocytes 0 % (Normal) Range: 0-2 Baso (Absolute) 0.1 {x10E3/uL} (Normal) Range: 0.0-0.2 Eos (Absolute) 0.1 {x10E3/uL} (Normal) Range: 0.0-0.4 Monocytes(Absolute) 0.4 {x10E3/uL} (Normal) Range: 0.1-0.9 Lymphs (Absolute) 1.8 {x10E3/uL} (Normal) Range: 0.7-3.1 Neutrophils (Absolute) 4.0 {x10E3/uL} (Normal) Range: 1.4-7.0 Basos 1 % (Normal) Range: 0-3 Eos 2 % (Normal) Range: 0-5 Monocytes 7 % (Normal) Range: 4-12 Lymphs 28 % (Normal) Range: 14-46 Neutrophils 62 % (Normal) Range: 40-74 Platelets 226 {x10E3/uL} (Normal) Range: 155-379 RDW 14.3 % (Normal) Range: 12.3-15.4 MCHC 33.4 g/dL (Normal) Range: 31.5-35.7 MCH 27.7 pg (Normal) Range: 26.6-33.0 MCV 83 fL (Normal) Range: 79-97 Hematocrit 38.3 % (Normal) Range: 34.0-46.6 Hemoglobin 12.8 g/dL (Normal) Range: 11.1-15.9 RBC 4.62 {x10E6/uL} (Normal) Range: 3.77-5.28 WBC 6.5 {x10E3/uL} (Normal) Range: 3.4-10.8 :20 HgA1C , Office (95357) HgA1C , Office 6.2 % (Normal) Range: 4.6 - 7.1 :20 Blood Glucose , Office (43334) Blood Glucose , Office 116 (Normal) 68-Bmx-761405:36 CULTURE, SPUTUM (25186) Comments: PATIENT NOT FASTINGPERFORMED BY: [facility]usChrist[facility] [place] 2858570 [facility] [id number] Information: SRC:RUST [id number] Result 1 RRF (Normal) Comments: Routine respiratory radha Lower Respiratory Culture Final report (Normal) :55 HgA1C , Office (53414) HgA1C , Office 6.2 % (Normal) Range: 4.6 - 7.1 :55 Blood Glucose , Office (68629) Blood Glucose , Office 188 (Normal) :28 LIPID PANEL (33229) Comments: PATIENT WAS FASTINGPERFORMED BY: [facility]usChrist[place] 2858570 [facility] [id number] Information: ADD [id number] AND DRAW FEE 99 6660 LDL/HDL Ratio 2.1 {ratio_units} (Normal) Range: 0.0-3.2 LDL Cholesterol Calc 104 mg/dL (Abnormal) Range: 0-99 VLDL Cholesterol Huy 32 mg/dL (Normal) Range: 5-40 HDL Cholesterol 49 mg/dL (Normal) Comments: According to ATP-III Guidelines, HDL-C >59 mg/dL is considered anegative risk factor for CHD. Triglycerides 159 mg/dL (Abnormal) Range: 0-149 Cholesterol, Total 185 mg/dL (Normal) Range: 100-199 :06 HgA1C , Office (25352) HgA1C , Office 5.9 % (Normal) Range: 4.6 - 7.1 :06 Blood Glucose , Office (90964) Blood Glucose , Office 94 (Normal) :48 TSH (35935) Comments: PATIENT WAS FASTINGPERFORMED BY: [facility]Ly[facility] CenterSthxhp0474 [facility] [id number] TSH 1.110 {uIU/mL} (Normal) Range: 0.450-4.500 :48 URINALYSIS, W/ MICRO Comments: PATIENT WAS FASTINGPERFORMED BY: [facility]6370 [facility] [id number] Information: [id number] (47754) Microscopic Examination See below: (Normal) Microscopic Examination MICRON (Normal) Comments: Microscopic follows if indicated. Nitrite, Urine Negative (Normal) Urobilinogen,Semi-Qn 0.2 mg/dL (Normal) Range: 0.0-1.9 Bilirubin Negative (Normal) Occult Blood Negative (Normal) Ketones Negative (Normal) Glucose Negative (Normal) Protein Negative (Normal) WBC Esterase Negative (Normal) Appearance Clear (Normal) Urine-Color Yellow (Normal) pH 7.0 (Normal) Range: 5.0-7.5 Specific Lindley 1.018 (Normal) Range: 1.005-1.030 :48 MICROALBUMIN: CREATININE RATIO Comments: PATIENT WAS FASTINGPERFORMED BY: [facility] CenterXpkmsp6391 [facility] [id number] (91762) AND (97810) Microalb/Creat Ratio 2.8 {mg/g_creat} (Normal) Range: 0.0-30.0 Microalbumin, Urine 2.8 ug/mL (Normal) Range: 0.0-17.0 Creatinine, Urine 100.6 mg/dL (Normal) Range: 15.0-278.0 :48 LIPID PANEL (05051) Comments: PATIENT WAS FASTINGPERFORMED BY: [facility] [id number] LDL/HDL Ratio 1.9 {ratio_units} (Normal) Range: 0.0-3.2 LDL Cholesterol Calc 103 mg/dL (Abnormal) Range: 0-99 VLDL Cholesterol Huy 22 mg/dL (Normal) Range: 5-40 HDL Cholesterol 55 mg/dL (Normal) Comments: According to ATP-III Guidelines, HDL-C >59 mg/dL is considered anegative risk factor for CHD. Triglycerides 109 mg/dL (Normal) Range: 0-149 Cholesterol, Total 180 mg/dL (Normal) Range: 100-199 :48 Microscopic Examination Comments: PATIENT WAS FASTINGPERFORMED BY: [employer] Wrsjvh2384 [facility] [id number] Bacteria None seen (Normal) Epithelial Cells (non renal) 0-10 {/hpf} (Normal) Range: 0 - 10 RBC 0-3 {/hpf} (Normal) Range: 0 - 3 WBC 0-5 {/hpf} (Normal) Range: 0 - 5 :21 Blood Glucose , Office (00386) Blood Glucose , Office 127 (Normal) :21 HgA1C , Office (69658) HgA1C , Office 6.2 % (Normal) Range: 4.6 - 7.1 :45 HgA1C , Office (11775) HgA1C , Office 6.9 % (Normal) Range: 4.6 - 7.1 :45 Blood Glucose , Office (92546) Blood Glucose , Office 238 (Normal) :41 Microscopic Examination Comments: PATIENT WAS FASTINGPERFORMED BY: [facility]avenPres[facility] Kaseman HospitalCaznyi7034 [facility] [id number] Bacteria None seen (Normal) Mucus Threads Present (Normal) Epithelial Cells (non renal) 0-10 {/hpf} (Normal) Range: 0 - 10 RBC 0-3 {/hpf} (Normal) Range: 0 - 3 WBC 0-5 {/hpf} (Normal) Range: 0 - 5 :41 TSH (54298) Comments: PATIENT WAS FASTINGPERFORMED BY: [facility]Pres[facility] Kaseman HospitalMukkfe1834 [facility] [id number] TSH 1.290 {uIU/mL} (Normal) Range: 0.450-4.500 :41 URINALYSIS, W/ MICRO (95184) Comments: PATIENT WAS FASTINGPERFORMED BY: [facility] CenterQfoefh4668 [facility] [id number] Microscopic Examination See below: (Normal) Nitrite, Urine Negative (Normal) Urobilinogen,Semi-Qn 0.2 mg/dL (Normal) Range: 0.0-1.9 Bilirubin Negative (Normal) Occult Blood Negative (Normal) Ketones Negative (Normal) Glucose Negative (Normal) Protein Negative (Normal) WBC Esterase 1+ (Abnormal) Appearance Clear (Normal) Urine-Color Yellow (Normal) pH 7.5 (Normal) Range: 5.0-7.5 Specific Lindley 1.020 (Normal) Range: 1.005-1.030 :41 MICROALBUMIN: CREATININE RATIO Comments: PATIENT WAS FASTINGPERFORMED BY: [facility] RoadPresbyterian Kaseman HospitalGoescx0103 [facility]mania[facility] [id number] ([id number]) AND (12997) Microalb/Creat Ratio 2.0 {mg/g_creat} (Normal) Range: 0.0-30.0 Microalbumin, Urine 2.4 ug/mL (Normal) Range: 0.0-17.0 Creatinine, Urine 119.8 mg/dL (Normal) Range: 15.0-278.0 :41 METABOLIC PANEL, COMPREHENSIVE Comments: PATIENT WAS FASTINGPERFORMED BY: [address] Gtxyfg4769 Cat [facility]maniaUNC [facility] [id number] (18264) ALT (SGPT) 19 [iU]/L (Normal) Range: 0-40 AST (SGOT) 19 [iU]/L (Normal) Range: 0-40 Alkaline Phosphatase, S 86 [iU]/L (Normal) Range: 25-150 Bilirubin, Total 0.2 mg/dL (Normal) Range: 0.0-1.2 A/G Ratio 1.6 (Normal) Range: 1.1-2.5 Globulin, Total 2.5 g/dL (Normal) Range: 1.5-4.5 Albumin, Serum 4.1 g/dL (Normal) Range: 3.5-5.5 Protein, Total, Serum 6.6 g/dL (Normal) Range: 6.0-8.5 Calcium, Serum 9.1 mg/dL (Normal) Range: 8.7-10.2 Carbon Dioxide, Total 25 mmol/L (Normal) Range: 20-32 Chloride, Serum 102 mmol/L (Normal) Range: 97-108 Potassium, Serum 4.6 mmol/L (Normal) Range: 3.5-5.2 Sodium, Serum 141 mmol/L (Normal) Range: 134-144 BUN/Creatinine Ratio 18 (Normal) Range: 9-23 eGFR If Africn Am 110 mL/min/1.73 (Normal) eGFR If NonAfricn Am 96 mL/min/1.73 (Normal) Creatinine, Serum 0.71 mg/dL (Normal) Range: 0.57-1.00 BUN 13 mg/dL (Normal) Range: 6-24 Glucose, Serum 147 mg/dL (Abnormal) Range: 65-99 :41 LIPID PANEL ([id number]) Comments: PATIENT WAS FASTINGPERFORMED BY: [id number] [id number] LDL/HDL Ratio 1.8 {ratio_units} (Normal) Range: 0.0-3.2 LDL Cholesterol Calc 100 mg/dL (Abnormal) Range: 0-99 VLDL Cholesterol Huy 23 mg/dL (Normal) Range: 5-40 HDL Cholesterol 57 mg/dL (Normal) Comments: According to ATP-III Guidelines, HDL-C >59 mg/dL is considered anegative risk factor for CHD. Triglycerides 117 mg/dL (Normal) Range: 0-149 Cholesterol, Total 180 mg/dL (Normal) Range: 100-199 :41 CBC WITH MANUAL DIFF Comments: PATIENT WAS FASTINGPERFORMED BY: [facility] [id number] [facility] [id number] Information: [id number] ([id number]) Immature Grans (Abs) 0.0 {x10E3/uL} (Normal) Range: 0.0-0.1 Immature Granulocytes 0 % (Normal) Range: 0-2 Baso (Absolute) 0.1 {x10E3/uL} (Normal) Range: 0.0-0.2 Eos (Absolute) 0.2 {x10E3/uL} (Normal) Range: 0.0-0.4 Monocytes(Absolute) 0.4 {x10E3/uL} (Normal) Range: 0.1-1.0 Lymphs (Absolute) 1.9 {x10E3/uL} (Normal) Range: 0.7-4.5 Neutrophils (Absolute) 4.8 {x10E3/uL} (Normal) Range: 1.8-7.8 Basos 1 % (Normal) Range: 0-3 Eos 3 % (Normal) Range: 0-7 Monocytes 6 % (Normal) Range: 4-13 Lymphs 26 % (Normal) Range: 14-46 Neutrophils 64 % (Normal) Range: 40-74 Platelets 230 {x10E3/uL} (Normal) Range: 140-415 RDW 13.5 % (Normal) Range: 12.3-15.4 MCHC 33.6 g/dL (Normal) Range: 31.5-35.7 MCH 28.4 pg (Normal) Range: 26.6-33.0 MCV 85 fL (Normal) Range: 79-97 Hematocrit 40.5 % (Normal) Range: 34.0-46.6 Hemoglobin 13.6 g/dL (Normal) Range: 11.1-15.9 RBC 4.79 {x10E6/uL} (Normal) Range: 3.77-5.28 WBC 7.4 {x10E3/uL} (Normal) Range: 4.0-10.5 :07 HgA1C , Office ([id number]) HgA1C , Office 6.4 % (Normal) Range: 4.6 - 7.1 :07 Blood Glucose , Office (47429) Blood Glucose , Office 223 (Normal) :01 HgA1C , Office (17226) HgA1C , Office 6.1 % (Normal) Range: 4.6 - 7.1 :01 Blood Glucose , Office (44617) Blood Glucose , Office 185 (Normal) :28 Hepatic Function Panel (7) Comments: PATIENT WAS FASTINGPERFORMED BY: [employer] [id number] [facility] [id number] ALT (SGPT) 19 [iU]/L (Normal) Range: 0-40 AST (SGOT) 19 [iU]/L (Normal) Range: 0-40 Alkaline Phosphatase, S 78 [iU]/L (Normal) Range: 25-150 Bilirubin, Direct 0.12 mg/dL (Normal) Range: 0.00-0.40 Bilirubin, Total 0.3 mg/dL (Normal) Range: 0.0-1.2 Albumin, Serum 4.3 g/dL (Normal) Range: 3.5-5.5 Protein, Total, Serum 6.8 g/dL (Normal) Range: 6.0-8.5 :28 Lipid Panel With LDL/HDL Comments: PATIENT WAS FASTINGPERFORMED BY: [facility] [id number] Ratio LDL/HDL Ratio 1.6 {ratio_units} (Normal) Range: 0.0-3.2 LDL Cholesterol Calc 81 mg/dL (Normal) Range: 0-99 VLDL Cholesterol Huy 31 mg/dL (Normal) Range: 5-40 HDL Cholesterol 51 mg/dL (Normal) Comments: According to ATP-III Guidelines, HDL-C >59 mg/dL is considered anegative risk factor for CHD. Triglycerides 154 mg/dL (Abnormal) Range: 0-149 Cholesterol, Total 163 mg/dL (Normal) Range: 100-199 56-Qyb-130022:27 SPINE, LUMBAR (ROUTINE) Radiology Report See Note (Normal) Comments: PROCEDURE: MRI LUMBAR SPINE WITHOUT CONTRAST REASON FOR EXAM: Female, 55 years old low back pain. TECHNIQUE: Standardized fat and water weighted pulse sequences wereobtained in the sagittal and ax ial planes. COMPARISON: None FINDINGS:Normal lumbar lordosis. There is lumbar levo scoliosis. Normal conus medullaris that terminates at L1. L1-2: There is disc desiccation with normal height. Ther e is noposteriorherniation. There are degenerative changes of the facet joints. Normalcentral canal and bilateral lateral recesses. Normal bilateralintervertebral neural foramina. L2-3: Normal endpl ates. Normal disc height, hydration and morphology.Normal bilateral facet joints. Normal central canal and bilaterallateralrecesses. Normal bilateral intervertebral neural foramina. L3-4: There is d isc desiccation with mild disc bulge. There is noposterior herniation. There are degenerative changes of the facetjoints.Normal central canal and bilateral lateral recesses. Normal bilateralintervert ebral neural foramina. L4-5: There is mild grade 1 degenerative listhesis of L4 on L5 and mildbulge. There are degenerative changes of the facet joints. Normalcentralcanal and bilateral lateral reces ses. Normal bilateral intervertebralneural foramina. L5-S1: There is disc desiccation with normal height. There arediscogenicdegenerative change changes of anterosuperior endplate of S1. There ismil d disc bulge. There are degenerative changes of the facet joints.Normal central canal and bilateral lateral recesses. Normal bilateralintervertebral neural foramina. IMPRESSION:Mild degenerative spond ylolisthesis L4 on L5 and broad-based bulge. Multilevel facet arthrosis without substantial stenosis as above. Dictated on 12/26/10 1556 by GERARDO PORTILLO MDTranscribed on 12/26/102046 by ITS IM PORTSign by GERARDO PORTILLO MD on 12/26/102047 Sign by: GERARDO PORTILLO MD :22 HgA1C , Office (31757) HgA1C , Office 6.1 % (Normal) Range: 4.6 - 7.1 :22 Blood Glucose , Office (00398) Blood Glucose , Office 140 (Normal) :19 URINALYSIS (75540) Comments: PATIENT WAS FASTINGPERFORMED BY: [facility] [id number] Microscopic Examination MICRON (Normal) Comments: Microscopic follows if indicated. Nitrite, Urine Negative (Normal) Urobilinogen,Semi-Qn 0.2 mg/dL (Normal) Range: 0.0-1.9 Bilirubin Negative (Normal) Occult Blood Negative (Normal) Ketones Negative (Normal) Glucose Negative (Normal) Protein Negative (Normal) WBC Esterase Negative (Normal) Appearance Clear (Normal) Urine-Color Yellow (Normal) pH 7.0 (Normal) Range: 5.0-7.5 Specific Lindley 1.016 (Normal) Range: 1.005-1.030 :19 MICROALBUMIN: CREATININE RATIO Comments: PATIENT WAS FASTINGPERFORMED BY: [employer]70 Cat [facility]maniaUNC [facility] [id number] ([id number]) AND (36713) Microalb/Creat Ratio 1.6 {mg/g_creat} (Normal) Range: 0.0-30.0 Microalbumin, Urine 1.9 ug/mL (Normal) Range: 0.0-17.0 Creatinine, Urine 120.1 mg/dL (Normal) Range: 15.0-278.0 :19 TSH (60817) Comments: PATIENT WAS FASTINGPERFORMED BY: [facility]Lyons [facility] CenterKqvmyt7281 [facility] [id number] TSH 1.310 {uIU/mL} (Normal) Range: 0.450-4.500 :19 Metabolic Panel, Comments: PATIENT WAS FASTINGPERFORMED BY: [facility]Ly[facility] CenterQesfmu8424 [facility] [id number] Information: [id number] Comprehensive (74167) ALT (SGPT) 19 [iU]/L (Normal) Range: 0-40 AST (SGOT) 22 [iU]/L (Normal) Range: 0-40 Alkaline Phosphatase, S 78 [iU]/L (Normal) Range: 25-150 Bilirubin, Total 0.4 mg/dL (Normal) Range: 0.0-1.2 A/G Ratio 1.7 (Normal) Range: 1.1-2.5 Globulin, Total 2.5 g/dL (Normal) Range: 1.5-4.5 Albumin, Serum 4.3 g/dL (Normal) Range: 3.5-5.5 Protein, Total, Serum 6.8 g/dL (Normal) Range: 6.0-8.5 Calcium, Serum 9.2 mg/dL (Normal) Range: 8.7-10.2 Carbon Dioxide, Total 26 mmol/L (Normal) Range: 20-32 Chloride, Serum 103 mmol/L (Normal) Range: 97-108 Potassium, Serum 4.1 mmol/L (Normal) Range: 3.5-5.2 Sodium, Serum 142 mmol/L (Normal) Range: 135-145 BUN/Creatinine Ratio 16 (Normal) Range: 9-23 eGFR If Africn Am 101 mL/min/1.73 (Normal) Comments: Note: A persistent eGFR <60 mL/min/1.73 m2 (3 months or more) mayindicate chronic kidney disease. An eGFR >59 mL/min/1.73 m2 with anelevated urine protein also may indicate chronic kidney disease.Calculated using CKD-EPI formula. eGFR If NonAfricn Am 87 mL/min/1.73 (Normal) Creatinine, Serum 0.77 mg/dL (Normal) Range: 0.57-1.00 BUN 12 mg/dL (Normal) Range: 6-24 Glucose, Serum 135 mg/dL (Abnormal) Range: 65-99 :19 Lipid Panel (66701) Comments: PATIENT WAS FASTINGPERFORMED BY: NanoMedex PharmaceuticalsFulton [facility] [id number] LDL/HDL Ratio 2.5 {ratio_units} (Normal) Range: 0.0-3.2 LDL Cholesterol Calc 121 mg/dL (Abnormal) Range: 0-99 VLDL Cholesterol Huy 28 mg/dL (Normal) Range: 5-40 HDL Cholesterol 48 mg/dL (Normal) Comments: According to ATP-III Guidelines, HDL-C >59 mg/dL is considered anegative risk factor for CHD. Triglycerides 142 mg/dL (Normal) Range: 0-149 Cholesterol, Total 197 mg/dL (Normal) Range: 100-199 :30 HgA1C , Office (31224) HgA1C , Office 6.5 % (Normal) Range: 4.6 - 7.1 :30 Blood Glucose , Office (63977) Blood Glucose , Office 154 (Normal) :12 Microscopic Examination Comments: PATIENT WAS FASTINGPERFORMED BY: [employer]70 [facility] [id number] Bacteria None seen (Normal) Mucus Threads Present (Normal) Epithelial Cells (non renal) 0-10 {/hpf} (Normal) Range: 0 - 10 RBC 0-3 {/hpf} (Normal) Range: 0 - 3 WBC 0-5 {/hpf} (Normal) Range: 0 - 5 :12 TSH (69400) Comments: PATIENT WAS FASTINGPERFORMED BY: [employer] [facility] [id number] TSH 1.260 {uIU/mL} (Normal) Range: 0.450-4.500 :12 URINALYSIS, W/ MICRO (28584) Comments: PATIENT WAS FASTINGPERFORMED BY: [facility]Ly[facility] CenterUfdizg6120 [facility] [id number] Microscopic Examination See below: (Normal) Bilirubin Negative (Normal) Microscopic Examination MICRON (Normal) Comments: Microscopic follows if indicated. Nitrite, Urine Negative (Normal) Occult Blood Negative (Normal) Urobilinogen,Semi-Qn 0.2 mg/dL (Normal) Range: 0.0-1.9 Glucose Negative (Normal) Ketones Negative (Normal) Protein Negative (Normal) Appearance Clear (Normal) pH 7.0 (Normal) Range: 5.0-7.5 Urine-Color Yellow (Normal) WBC Esterase Negative (Normal) Specific Lindley 1.017 (Normal) Range: 1.005-1.030 :12 MICROALBUMIN: CREATININE RATIO Comments: PATIENT WAS FASTINGPERFORMED BY: [employer] Mucohc2413 [facility] [id number] ([id number]) AND (42244) Microalb/Creat Ratio 2.4 {mg/g_creat} (Normal) Range: 0.0-30.0 Microalbumin, Urine 3.2 ug/mL (Normal) Range: 0.0-17.0 Creatinine, Urine 134.3 mg/dL (Normal) Range: 15.0-278.0 :12 METABOLIC PANEL, COMPREHENSIVE Comments: PATIENT WAS FASTINGPERFORMED BY: [facility]avenLyons [facility] Medical CenterNsoyue2620 [facility] [id number] (42972) Alkaline Phosphatase, S 67 [iU]/L (Normal) Range: 25-150 ALT (SGPT) 17 [iU]/L (Normal) Range: 0-40 AST (SGOT) 19 [iU]/L (Normal) Range: 0-40 A/G Ratio 1.6 (Normal) Range: 1.1-2.5 Albumin, Serum 4.0 g/dL (Normal) Range: 3.5-5.5 Bilirubin, Total 0.3 mg/dL (Normal) Range: 0.0-1.2 Globulin, Total 2.5 g/dL (Normal) Range: 1.5-4.5 Protein, Total, Serum 6.5 g/dL (Normal) Range: 6.0-8.5 Calcium, Serum 9.0 mg/dL (Normal) Range: 8.7-10.2 Carbon Dioxide, Total 27 mmol/L (Normal) Range: 20-32 BUN/Creatinine Ratio 17 (Normal) Range: 9-23 Chloride, Serum 102 mmol/L (Normal) Range: 97-108 Potassium, Serum 4.2 mmol/L (Normal) Range: 3.5-5.2 Sodium, Serum 140 mmol/L (Normal) Range: 135-145 Creatinine, Serum 0.86 mg/dL (Normal) Range: 0.57-1.00 eGFR >59 mL/min/1.73 (Normal) eGFR AfricanAmerican >59 mL/min/1.73 Comments: Note: Persistent reduction for 3 months or more in an eGFR<60 mL/min/1.73 m2 defines CKD. Patients with eGFR values>/=60 mL/min/1.73 m2 may also have CKD if evidence of persistentproteinuria is (Normal) present. Additional information may be found [email or web address]. BUN 15 mg/dL (Normal) Range: 6-24 Glucose, Serum 125 mg/dL (Abnormal) Range: 65-99 :12 LIPID PANEL (66846) Comments: PATIENT WAS FASTINGPERFORMED BY: [employer]70 Cat [facility]maniaUNC [facility] [id number] LDL/HDL Ratio 2.3 {ratio_units} (Normal) Range: 0.0-3.2 HDL Cholesterol 47 mg/dL (Normal) Comments: According to ATP-III Guidelines, HDL-C >59 mg/dL is considered anegative risk factor for CHD. LDL Cholesterol Calc 107 mg/dL (Abnormal) Range: 0-99 VLDL Cholesterol Huy 20 mg/dL (Normal) Range: 5-40 Cholesterol, Total 174 mg/dL (Normal) Range: 100-199 Triglycerides 102 mg/dL (Normal) Range: 0-149 :12 CBC WITH MANUAL DIFF Comments: PATIENT WAS FASTINGPERFORMED BY: [facility]BrainsUNC [facility] [id number] Information: [id number] (29566) Baso (Absolute) 0.0 {x10E3/uL} (Normal) Range: 0.0-0.2 Immature Grans (Abs) 0.0 {x10E3/uL} (Normal) Range: 0.0-0.1 Immature Granulocytes 0 % (Normal) Range: 0-1 Eos (Absolute) 0.2 {x10E3/uL} (Normal) Range: 0.0-0.4 Lymphs (Absolute) 1.8 {x10E3/uL} (Normal) Range: 0.7-4.5 Monocytes(Absolute) 0.5 {x10E3/uL} (Normal) Range: 0.1-1.0 Neutrophils (Absolute) 3.9 {x10E3/uL} (Normal) Range: 1.8-7.8 Basos 1 % (Normal) Range: 0-3 Eos 3 % (Normal) Range: 0-7 Lymphs 28 % (Normal) Range: 14-46 Monocytes 8 % (Normal) Range: 4-13 Neutrophils 60 % (Normal) Range: 40-74 Platelets 245 {x10E3/uL} (Normal) Range: 140-415 RDW 14.0 % (Normal) Range: 11.7-15.0 MCH 28.8 pg (Normal) Range: 27.0-34.0 MCHC 32.9 g/dL (Normal) Range: 32.0-36.0 MCV 88 fL (Normal) Range: 80-98 Hematocrit 40.7 % (Normal) Range: 34.0-44.0 Hemoglobin 13.4 g/dL (Normal) Range: 11.5-15.0 RBC 4.65 {x10E6/uL} (Normal) Range: 3.80-5.10 WBC 6.5 {x10E3/uL} (Normal) Range: 4.0-10.5 :50 HgA1C , Office (44490) Comments: done km HgA1C , Office 6.1 % (Normal) Range: 4.6 - 7.1 :49 Blood Glucose , Office (49589) Comments: done Blood Glucose , Office 127 (Normal) :19 HgA1C , Office (15940) Comments: done km HgA1C , Office 6.8 % (Normal) Range: 4.6 - 7.1 :19 Blood Glucose , Office (18218) Comments: done Blood Glucose , Office 159 (Normal) :54 HEPATIC FUNCTION PANEL Comments: PATIENT WAS FASTINGPERFORMED BY: [employer] [place] [address] [id number] BY: [facility]Christ[place] 2858570 [facility] [id number] ([id number]) ALT (SGPT) 25 [iU]/L (Normal) Range: 0-40 AST (SGOT) 25 [iU]/L (Normal) Range: 0-40 Alkaline Phosphatase, S 89 [iU]/L (Normal) Range: 25-150 Bilirubin, Direct 0.15 mg/dL (Normal) Range: 0.00-0.40 Albumin, Serum 4.6 g/dL (Normal) Range: 3.5-5.5 Bilirubin, Total 0.5 mg/dL (Normal) Range: 0.1-1.2 Protein, Total, Serum 7.2 g/dL (Normal) Range: 6.0-8.5 :54 LIPOPROTEIN, BLD, BY NMR Comments: PATIENT WAS FASTINGPERFORMED BY: [employer] [place] [address] [id number] BY: [employer]6370 [facility] [id number] Information: [id number] (82420) HDL Size 8.3 nm (Abnormal) Comments: Small LDL-P, LDL Particle Size, Large HDL-P, Large VLDL-PVLDL Size, HDL Size, HDL Particle, and LP-IR Scorehave been validated by [employer] but not cleared by US FDA;the clinical utility of these test results has not been fully established. LP-IR Score 74 (Abnormal) Comments: The LP-IR Score combines the information from Large VLDL-P,Small LDL-P, Large HDL-P, VLDL Size, LDL Size and HDL Sizeto give improved assessment of insulin resistance anddiabetes risk.------ INTERPRETATIVE INFORMATIONPARTICLE CONCENTRATION AND SIZE<--Lower CVD Risk Higher CVD Risk-->LDL AND HDL PARTICLES Percentile in Reference [facility] DepartmentHDL-P (total) High 75th 50th 25th Low>34.9 34.9 30.5 26.7 <26.7.Small LDL-P Low 25th 50th 75th High<117 117 527 839 >83 9.LDL Size <-Large (Pattern A)-> <-Small (Pattern B)->23.0 20.6 20.5 19.0 INSULIN RESISTANCE / DIABETES RISK M BRITT<--Insulin Sensitive Insulin Resistant-->Percentile in Reference PopulationLarge VLDL-P Low 25th 50th 75th High<0.9 0.9 2.7 6.9 >6.9.Small L DL-P Low 25th 50th 75th High<117 117 527 839 >839.Large HDL-P High 75th 50th 25th Low>7.3 7.3 4.8 3.1 <3.1.VLDL Size Small 25th 50th 75th Large<42.4 42.4 46.6 52.5 >52.5.LDL Size Large 75th 50th 25th Small>21.2 21.2 20.8 20.4 <2 0.4.HDL Size Large 75th 50th 25th Small>9.6 9.6 9.2 8.9 >8.9Insulin Resistance ScoreLP-IR SCORE Low 25th 50th 75th High<27 27 45 63 >63 LDL Size 20.5 nm (Abnormal) HDL-P (Total) 35.7 umol/L (Normal) Large HDL-P 1.7 umol/L (Abnormal) Large VLDL-P 4.6 nmol/L (Abnormal) LDL Size 20.5 nm (Abnormal) Small LDL-P 811 nmol/L (Abnormal) Small LDL-P 811 nmol/L (Abnormal) VLDL Size 53.0 nm (Abnormal) HDL-C 47 mg/dL (Normal) LDL-P 1458 nmol/L (Abnormal) Comments: Low < 1000Moderate 1000 - 1299Borderline-High 1300 - 1599High 1600 - 2000Very High > 2000. Triglycerides 150 mg/dL (Abnormal) LDL-C 67 mg/dL (Normal) Comments: .Optimal < 100Above optimal 100 - 129Borderline 130 - 159High 160 - 189Very high > 189. Cholesterol, Total 144 mg/dL (Normal) :21 HgA1C , Office (12017) Comments: done HgA1C , Office 6.1 % (Normal) Range: 4.6 - 7.1 :21 Blood Glucose , Office (86688) Comments: done Blood Glucose , Office 133 (Normal) :25 TSH ([id number]) Comments: PATIENT WAS FASTINGPERFORMED BY: [employer] [facility] [id number] TSH 1.010 {uIU/mL} (Normal) Range: 0.450-4.500 :25 MICROALBUMIN: CREATININE RATIO Comments: PATIENT WAS FASTINGPERFORMED BY: [facility]nms0217 [facility] [id number] ([id number]) AND (57818) Creatinine, Urine 79.8 mg/dL (Normal) Range: 15.0-278.0 Microalb/Creat Ratio 1.6 {mg/g_creat} (Normal) Range: 0.0-30.0 Microalbumin, Urine 1.3 ug/mL (Normal) Range: 0.0-17.0 :25 METABOLIC PANEL, COMPREHENSIVE Comments: PATIENT WAS FASTINGPERFORMED BY: [employer] [facility] [id number] (22005) A/G Ratio 1.6 (Normal) Range: 1.1-2.5 Albumin, Serum 4.1 g/dL (Normal) Range: 3.5-5.5 Alkaline Phosphatase, S 67 [iU]/L (Normal) Range: 25-150 ALT (SGPT) 15 [iU]/L (Normal) Range: 0-40 AST (SGOT) 13 [iU]/L (Normal) Range: 0-40 Bilirubin, Total 0.3 mg/dL (Normal) Range: 0.1-1.2 BUN/Creatinine Ratio 16 (Normal) Range: 8-27 Calcium, Serum 9.3 mg/dL (Normal) Range: 8.5-10.6 Carbon Dioxide, Total 23 mmol/L (Normal) Range: 20-32 Chloride, Serum 103 mmol/L (Normal) Range: 97-108 eGFR >59 mL/min/1.73 (Normal) eGFR AfricanAmerican >59 mL/min/1.73 Comments: Note: Persistent reduction for 3 months or more in an eGFR<60 mL/min/1.73 m2 defines CKD. Patients with eGFR values>/=60 mL/min/1.73 m2 may also have CKD if evidence of persistentproteinuria is (Normal) present. Additional information may be found [email or web address]. Globulin, Total 2.6 g/dL (Normal) Range: 1.5-4.5 Potassium, Serum 4.5 mmol/L (Normal) Range: 3.5-5.2 Protein, Total, Serum 6.7 g/dL (Normal) Range: 6.0-8.5 Sodium, Serum 138 mmol/L (Normal) Range: 135-145 BUN 13 mg/dL (Normal) Range: 5-26 Creatinine, Serum 0.82 mg/dL (Normal) Range: 0.57-1.00 Glucose, Serum 127 mg/dL (Abnormal) Range: 65-99 03-Sba-53673:25 LIPOPROTEIN, BLD, BY NMR Comments: PATIENT WAS FASTINGClinical Information: [id number] PERFORMED BY: [facility] [id number] ([id number]) Cholesterol, Total 197 mg/dL (Normal) HDL-C 48 mg/dL (Normal) Large HDL-P 8.5 umol/L (Normal) Large VLDL-P 2.4 nmol/L (Normal) LDL Particle Size 20.5 nm (Abnormal) Comments: . Small (Pattern B) 18.0 - 20.5 Large (Pattern A) 20.6 - 23.0 . LDL-C 128 mg/dL (Abnormal) Comments: . Optimal < 100 Above optimal 100 - 129 Borderline 1 30 - 159 High 160 - 189 Very high > 189 . LDL-P 1745 nmol/L (Abnormal) Comments: . Optimal < 1000 Above optimal 1000 - 1299 Borderline 13 00 - 1599 High 1600 - 2000 Very high > 2000 . Patient Goals SPRCS (Normal) Comments: High Risk: LDL-P < 1000; Secondary goal: Small LDL-P < 850Moderately High-Risk: LDL-P < 1300; Secondary goal: Small LDL-P < 850 Small LDL-P 1290 nmol/L (Abnormal) Comments: . Low < 600 Moderate 600 - 849 Borderline 8 50 - 1200 High > 1200 . Triglycerides 107 mg/dL (Normal) 22-Yjm-38526:25 CBC WITH MANUAL DIFF (82563) Comments: PATIENT WAS FASTINGPERFORMED BY: [facility]CoLyons [facility] Medical CenterOyucga1308 [facility] [id number] Baso (Absolute) 0.1 {x10E3/uL} (Normal) Range: 0.0-0.2 Basos 1 % (Normal) Range: 0-3 Eos 3 % (Normal) Range: 0-7 Eos (Absolute) 0.2 {x10E3/uL} (Normal) Range: 0.0-0.4 Hematocrit 39.3 % (Normal) Range: 34.0-44.0 Hemoglobin 13.2 g/dL (Normal) Range: 11.5-15.0 Lymphs 28 % (Normal) Range: 14-46 Lymphs (Absolute) 2.0 {x10E3/uL} (Normal) Range: 0.7-4.5 MCH 29.3 pg (Normal) Range: 27.0-34.0 MCHC 33.7 g/dL (Normal) Range: 32.0-36.0 MCV 87 fL (Normal) Range: 80-98 Monocytes 5 % (Normal) Range: 4-13 Monocytes(Absolute) 0.4 {x10E3/uL} (Normal) Range: 0.1-1.0 Neutrophils 63 % (Normal) Range: 40-74 Neutrophils (Absolute) 4.6 {x10E3/uL} (Normal) Range: 1.8-7.8 Platelets 258 {x10E3/uL} (Normal) Range: 140-415 RBC 4.51 {x10E6/uL} (Normal) Range: 3.80-5.10 RDW 14.1 % (Normal) Range: 11.7-15.0 WBC 7.3 {x10E3/uL} (Normal) Range: 4.0-10.5 :02 HgA1C , Office (34255) Comments: done km HgA1C , Office 5.9 % (Normal) Range: 4.6 - 7.1 :02 Blood Glucose , Office (97755) Comments: done Blood Glucose , Office 131 (Normal) :26 Blood Glucose , Office (24644) Comments: done Blood Glucose , Office 80 (Normal) 52-Hwl-810528:26 HgA1C , Office (16769) Comments: done HgA1C , Office 5.7 % (Normal) Range: 4.6 - 7.1 :18 Rapid Strep Test, Office (34395) Rapid Strep Test, Office Negative (Normal) :35 URINALYSIS W/O MICRO (23450) Comments: PATIENT WAS FASTINGPERFORMED BY: [facility]ins[facility] [id number] Appearance Clear (Normal) Bilirubin Negative (Normal) Glucose Negative (Normal) Ketones Negative (Normal) Microscopic Examination MICRON (Normal) Comments: Microscopic follows if indicated. Nitrite, Urine Negative (Normal) Occult Blood Negative (Normal) pH 6.5 (Normal) Range: 5.0-7.5 Protein Negative (Normal) Specific Lindley 1.022 (Normal) Range: 1.005-1.030 Urine-Color Yellow (Normal) Urobilinogen,Semi-Qn 0.2 mg/dL (Normal) Range: 0.0-1.9 WBC Esterase Negative (Normal) :35 MICROALBUMIN: CREATININE RATIO Comments: PATIENT WAS FASTINGPERFORMED BY: [facility]ins[facility] [id number] ([id number]) AND (24081) Microalbum.,U,Random 1.6 ug/mL (Normal) Range: 0.0-17.0 71-Xoy-06185:35 METABOLIC PANEL, COMPREHENSIVE Comments: PATIENT WAS FASTINGPERFORMED BY: [facility] Bjgjze8274 [facility] [id number] ([id number]) A/G Ratio 1.7 (Normal) Range: 1.1-2.5 Albumin, Serum 4.0 g/dL (Normal) Range: 3.5-5.5 Alkaline Phosphatase, S 64 [iU]/L (Normal) Range: 25-150 ALT (SGPT) 14 [iU]/L (Normal) Range: 0-40 AST (SGOT) 13 [iU]/L (Normal) Range: 0-40 Bilirubin, Total 0.3 mg/dL (Normal) Range: 0.1-1.2 BUN 15 mg/dL (Normal) Range: 5-26 BUN/Creatinine Ratio 25 (Normal) Range: 8-27 Calcium, Serum 8.9 mg/dL (Normal) Range: 8.5-10.6 Carbon Dioxide, Total 22 mmol/L (Normal) Range: 20-32 Chloride, Serum 103 mmol/L (Normal) Range: 97-108 Creatinine, Serum 0.60 mg/dL (Normal) Range: 0.50-1.50 Comments: EFFECTIVE OCTOBER 07, 2007 the reference interval on Creatinine, Serum will be changing to: Female Male Age/S ex Regardless 0.57 - 1.00 0.76 - 1.27 Up to 2 months 0.44 - 1.19 0.44 - 1.19 2 - 11 months 0.17 - 1.18 0.17 - 1.18 1 year - <3 years 0.19 - 0.42 0.19 - 0.42 3 years - <5 years 0.26 - 0.51 0.26 - 0.51 5 years - <7 years 0.30 - 0.59 0.30 - 0.59 7 years - <9 years 0.37 - 0.62 0.37 - 0.62 9 years - <11 years 0.39 - 0.70 0.39 - 0.70 11 years - <13 years 0.42 - 0.75 0. 42 - 0.75 13 years - <15 years 0.49 - 0.90 0.49 - 0.90 Equal to or >15 years 0.57 - 1.00 0.76 - 1.27 . Globulin, Total 2.4 g/dL (Normal) Range: 1.5-4.5 Glom Filt Rate, Est >60 mL/min (Normal) Range: 60-128 Comments: EFFECTIVE OCTOBER 07, 2007 the reference interval on 'Glom Filt Rate, Est' and 'If -New Zealander' will be changing to >59 mL/min/1.73. Glucose, Serum 123 mg/dL (Abnormal) Range: 65-99 If -New Zealander >60 mL/min (Normal) Range: 60-128 Comments: Note: Persistent reduction for 3 months or more in an eGFR<60 mL/min/1.73 m2 defines CKD. Patients with eGFR values>/=60 mL/min/1.73 m2 may also have CKD if evidence of persistentproteinuria is present. Additional information may be found [email or web address]. Potassium, Serum 3.8 mmol/L (Normal) Range: 3.5-5.2 Protein, Total, Serum 6.4 g/dL (Normal) Range: 6.0-8.5 Sodium, Serum 137 mmol/L (Normal) Range: 135-145 52-Czy-34452:35 CBC WITH MANUAL DIFF (29759) Comments: PATIENT WAS FASTINGClinical Information: ADD DRAW FEE [id number] ADD J [id number] PERFORMED BY: [facility]6370 [facility] [id number] Baso (Absolute) 0.1 {x10E3/uL} (Normal) Range: 0.0-0.2 Basos 1 % (Normal) Range: 0-3 Eos 3 % (Normal) Range: 0-7 Eos (Absolute) 0.2 {x10E3/uL} (Normal) Range: 0.0-0.4 Hematocrit 37.5 % (Normal) Range: 34.0-44.0 Hemoglobin 12.6 g/dL (Normal) Range: 11.5-15.0 Lymphs 24 % (Normal) Range: 14-46 Lymphs (Absolute) 1.8 {x10E3/uL} (Normal) Range: 0.7-4.5 MCH 28.7 pg (Normal) Range: 27.0-34.0 MCHC 33.7 g/dL (Normal) Range: 32.0-36.0 MCV 85 fL (Normal) Range: 80-98 Monocytes 6 % (Normal) Range: 4-13 Monocytes(Absolute) 0.5 {x10E3/uL} (Normal) Range: 0.1-1.0 Neutrophils 66 % (Normal) Range: 40-74 Neutrophils (Absolute) 5.1 {x10E3/uL} (Normal) Range: 1.8-7.8 Platelets 252 {x10E3/uL} (Normal) Range: 140-415 RBC 4.40 {x10E6/uL} (Normal) Range: 3.80-5.10 RDW 14.0 % (Normal) Range: 11.7-15.0 WBC 7.6 {x10E3/uL} (Normal) Range: 4.0-10.5 :35 LIPID PANEL (21558) Comments: PATIENT WAS FASTINGPERFORMED BY: [facility]CoLy[facility] CenterFfoqey8723 [facility] [id number] Cholesterol, Total 182 mg/dL (Normal) Range: 100-199 Comment SPRCS (Normal) Comments: If initial LDL-cholesterol result is >100 mg/dL, assess forrisk factors. HDL Cholesterol 44 mg/dL (Normal) Range: 40-59 LDL Cholesterol Calc 117 mg/dL (Abnormal) Range: 0-99 LDL/HDL Ratio 2.7 {ratio_units} (Normal) Range: 0.0-3.2 Triglycerides 106 mg/dL (Normal) Range: 0-149 VLDL Cholesterol Huy 21 mg/dL (Normal) Range: 5-40 :03 HgA1C , Office (62668) Comments: done km HgA1C , Office 5.7 % (Normal) Range: 4.6 - 7.1 :03 Blood Glucose , Office ([id number]) Comments: done km Blood Glucose , Office 141 (Normal) :07 HgA1C , Office ([id number]) Comments: done km HgA1C , Office 5.7 % (Normal) Range: 4.6 - 7.1 :07 Blood Glucose , Office ([id number]) Comments: done Blood Glucose , Office 143 (Normal) :00 CBCD,SMEAR DIFF CELLS COUNTED 100 (Normal) EOS 1 % (Normal) Range: 0-5 HCT 37.5 % (Normal) Range: 37-47 HGB 12.9 g/dL (Normal) Range: 12.0-16.0 LYMPH 27 % (Normal) Range: 19-41 MCH 28.7 pg (Normal) Range: 27.0-32.0 MCHC 34.5 g/dL (Normal) Range: 32-36 MCV 83.3 fL (Normal) Range: 81-99 MONOCYTE 9 % (Normal) Range: 0-10 PLT 261 K/mm3 (Normal) Range: 150-450 PLT EST SeeNote (Normal) Comments: Result: ADEQUATE RBC 4.50 {M/mm3} (Normal) Range: 4.2-5.4 RDW 12.9 % (Normal) Range: 11.6-14.6 RED CELL MORPH SeeNote {NORMAL} (Normal) Comments: Result: NORM C+C SEGS 63 % (Normal) Range: 47-70 WBC 5.8 K/mm3 (Normal) Range: 4.4-11.0 :00 COMP METABOLIC A/G 1.1 {RATIO} (Normal) Range: 0.9-2.4 ALB 3.4 g/dL (Normal) Range: 3.4-5.0 ALK P 62 U/L (Normal) Range: 50-136 ALT 30 [iU]/L (Normal) Range: 30-65 AST 14 U/L (Abnormal) Range: 15-37 BUN 8 mg/dL (Normal) Range: 7-18 BUN/CRE 13.3 {RATIO} (Normal) Range: 10-20 CA 7.9 mg/dL (Abnormal) Range: 8.5-10.1 CL 104 mmol/L (Normal) Range: 98-107 CO2 27.6 mmol/L (Normal) Range: 21.0-32.0 CREAT,SERUM 0.6 mg/dL (Normal) Range: 0.6-1.0 GAP 5 (Normal) Range: 5-15 GLOB 3.1 g/dL (Normal) Range: 2.7-4.2 GLU 114 mg/dL (Abnormal) Range: 70-110 Comments: Fasting Glucose result from 110 to <126 mg/dL suggests IMPAIRED HOMEOSTASIS per A.D.A. criteria. K 3.9 mmol/L (Normal) Range: 3.5-5.1 NA 137 mmol/L (Normal) Range: 136-145 T BILI 0.28 mg/dL (Normal) Range: 0.00-1.00 T PROT 6.5 g/dL (Normal) Range: 6.4-8.2 :00 LIPID CHOL 161 mg/dL (Normal) Comments: <200 mg/dL Desirable 200-240 mg/dL Borderline >240 mg/dL High Risk HDL 42 mg/dL (Normal) Comments: Reference Range HDL <40 mg/dL Low HDL Cholesterol HDL >or= 60 mg/dL High HDL Cholesterol LDL 103 mg/dL (Normal) Range: 0-130 TRIG 81 mg/dL (Normal) Comments: Serum Triglycerides Reference Interval Normal <150 mg/dL Borderline high 150 - 199 mg/dL High 200 - 499 mg/dL Very High > or = 500 mg/dL VLDL 16 mg/dL (Normal) Range: 5-40 :00 MICROALBUMIN,UR 10.4 mg/L (Normal) :00 TSH 0.79 {uIU/mL} (Normal) Range: 0.34-4.82 :41 Urinalysis, Office ([id number]) UA - BILIRUBIN Negative (Normal) UA - BLOOD Hemolyzed Small (Normal) UA - GLUCOSE Negative (Normal) UA - KETONES Negative mg/dL (Normal) UA - LEUKOCYTE ESTERASE Negative (Normal) UA - NITRITE Negative (Normal) UA - PH 6.0 (Normal) UA - PROTEIN Negative mg/dL (Normal) UA - SPECIFIC GRAVITY 1.025 (Normal) URINE UROBILINGN BALDO TIMED Normal mg/dL (Normal) :30 COMPLETE UA BACTERIA RARE {/hpf} (Normal) BILIRUBIN URINE SeeNote (Normal) Comments: Result: NEGATIVE CLARITY CLEAR (Normal) COLOR YELLOW (Normal) GLUCOSE, UR SeeNote (Normal) Comments: Result: NEGATIVE KETONE UR SeeNote mg/dL (Normal) Comments: Result: NEGATIVE LEUK ESTERASE SeeNote (Normal) Comments: Result: NEGATIVE MUCUS, URINE 0 SEEN {/hpf} (Normal) NITRITE UR SeeNote (Normal) Comments: Result: NEGATIVE OCCULT BLOOD-UR SeeNote (Abnormal) Comments: Result: TRACE-LYSED pH UR 6.0 (Normal) Range: 5.0-8.0 PROT DIPSTX SeeNote (Normal) Comments: Result: NEGATIVE RBC-UA SeeNote {/hpf} (Normal) Range: 0-5 Comments: Result: 0-5 SEEN SP.GR. DIPSTX 1.025 (Normal) Range: 1.002-1.030 SQUAM EPI SeeNote {/hpf} (Normal) Range: 5-10 Comments: Result: 0-5 SEEN UROBILI 0.2 EU/dl (Normal) Range: 0.2 - 1.0 WBC SeeNote {/hpf} (Normal) Range: 0-5 Comments: Result: 0-5 SEEN :26 HgA1C , Office ([id number]) Comments: done HgA1C , Office 5.5 % (Normal) Range: 4.6 - 7.1 :26 Blood Glucose , Office ([id number]) Comments: done Blood Glucose , Office 123 (Normal) [id number] LUKE CULTURE-OTHER ([id number]) [id number] Upper Respiratory Culture Comments: Clinical Information: SRC: ADD [id number] [id number] [id number] Result 1 RRF (Normal) Comments: Routine respiratory radha Upper Respiratory Culture Final report (Normal) [id number] Rapid Strep Test, Office ([id number]) Comments: done Rapid Strep Test, Office Negative (Normal) 17-Nov-20068:10 LIPID CHOL 192 mg/dL (Normal) Comments: <200 mg/dL Desirable 200-240 mg/dL Borderline >240 mg/dL High Risk HDL 45 mg/dL (Normal) Comments: Reference Range HDL <40 mg/dL Low HDL Cholesterol HDL >or= 60 mg/dL High HDL Cholesterol LDL 121 mg/dL (Normal) Range: 0-130 TRIG 128 mg/dL (Normal) Comments: Serum Triglycerides Reference Interval Normal <150 mg/dL Borderline high 150 - 199 mg/dL High 200 - 499 mg/dL Very High > or = 500 mg/dL VLDL 26 mg/dL (Normal) Range: 5-40 :10 TSH 0.54 {uIU/mL} (Normal) Range: 0.34-4.82 :06 HgA1C , Office ([id number]) Comments: done km HgA1C , Office 5.2 % (Normal) Range: 4.6 - 7.1 :06 Blood Glucose , Office (46654) Comments: done km Blood Glucose , Office 102 (Normal) :44 HgA1C , Office ([id number]) HgA1C , Office 5.5 % (Normal) Range: 4.6 - 7.1 :50 GLUP 210 mg/dL (Abnormal) Comments: GLU,2HPPG 75gm GLUC PPG GLUP from [id number]. Comments: Glucose result greater than or equal to 200 mg/dLsuggests DIABETES MELLITUS per A.D.A. criteria. :30 LIPID CHOL 190 mg/dL (Normal) Comments: <200 mg/dL Desirable 200-240 mg/dL Borderline >240 mg/dL High Risk HDL 44 mg/dL (Normal) Comments: Reference Range HDL <40 mg/dL Low HDL Cholesterol HDL >or= 60 mg/dL High HDL Cholesterol LDL 115 mg/dL (Normal) Range: 0-130 TRIG 155 mg/dL (Normal) Comments: Serum Triglycerides Reference Interval Normal <150 mg/dL Borderline high 150 - 199 mg/dL High 200 - 499 mg/dL Very High > or = 500 mg/dL VLDL 31 mg/dL (Normal) Range: 5-40 Plan of Care Name Dates Details Instructions Rash : Follow up if no improvement or if symptoms worsen Indication: Rash Shingles : Shingles (Herpes Zoster) *: herpes zoster Indication: Shingles Current nonsmoker : Eprescribed prescriptions (G8553) Indication: Current nonsmoker Controlled diabetes mellitus : Follow up in 3 months Indication: Controlled diabetes mellitus Hyperlipidemia : Cholesterol mgmt Indication: Hyperlipidemia Invasive ductal carcinoma of breast, left : Reviewed Lab Indication: Invasive ductal carcinoma of breast, left Invasive ductal carcinoma of breast, left : Reviewed Sap Sd Analyst Letter Indication: Invasive ductal carcinoma of breast, left Invasive ductal carcinoma of breast, left : Reviewed Lab Indication: Invasive ductal carcinoma of breast, left Invasive ductal carcinoma of breast, left : Reviewed Sap Sd Analyst Letter Indication: Invasive ductal carcinoma of breast, left Hyperlipidemia : Cholesterol mgmt Indication: Hyperlipidemia Controlled diabetes mellitus : Reviewed Lab Indication: Controlled diabetes mellitus Controlled diabetes mellitus : Follow up in 3 months Indication: Controlled diabetes mellitus Diabetes mellitus type 2, uncontrolled, without complications : Follow up in 3 months Indication: Diabetes mellitus type 2, uncontrolled, without complications GERD (gastroesophageal reflux disease) : GERD Education Indication: GERD (gastroesophageal reflux disease) Hyperlipidemia : Reviewed Lab Indication: Hyperlipidemia Diabetes mellitus type 2, uncontrolled, without complications : Eprescribed prescriptions (G8553) Indication: Diabetes mellitus type 2, uncontrolled, without complications Upper respiratory infection, acute : Eprescribed prescriptions (G8553) Indication: Upper respiratory infection, acute Controlled diabetes mellitus : Follow up in 3 months Indication: Controlled diabetes mellitus Controlled diabetes mellitus : *Diabetes Education Indication: Controlled diabetes mellitus GERD (gastroesophageal reflux disease) : GERD Education Indication: GERD (gastroesophageal reflux disease) Hyperlipidemia : Cholesterol mgmt Indication: Hyperlipidemia Psoriatic arthritis : Reviewed Sap Sd Analyst Letter Indication: Psoriatic arthritis Diabetes mellitus type 2, uncontrolled, without complications : Eprescribed prescriptions (G8553) Indication: Diabetes mellitus type 2, uncontrolled, without complications Diabetes mellitus type 2, uncontrolled, without complications : *Diabetes Education Indication: Diabetes mellitus type 2, uncontrolled, without complications GERD (gastroesophageal reflux disease) : GERD Education Indication: GERD (gastroesophageal reflux disease) Hyperlipidemia : Cholesterol mgmt Indication: Hyperlipidemia Diabetes mellitus type 2, uncontrolled, without complications : Follow up in 3 months Indication: Diabetes mellitus type 2, uncontrolled, without complications GERD (gastroesophageal reflux disease) : Continue Current Prescription(s) Indication: GERD (gastroesophageal reflux disease) Hyperlipidemia : Cholesterol mgmt Indication: Hyperlipidemia GERD (gastroesophageal reflux disease) : GERD Education Indication: GERD (gastroesophageal reflux disease) Diabetes mellitus type 2, uncontrolled, without complications : *Diabetes Education Indication: Diabetes mellitus type 2, uncontrolled, without complications Diabetes mellitus type 2, uncontrolled, without complications : Diabetes and Exercise: Preventing Low Blood Sugar: blood sugar Indication: Diabetes mellitus type 2, uncontrolled, without complications Cough : Continue Current Prescription(s) Indication: Cough Cough : *Antibiotic Usage Education - Female Indication: Cough ACUTE PHARYNGITIS (462.) : Eprescribed prescriptions (G8553) Indication: ACUTE PHARYNGITIS (462.) Controlled diabetes mellitus : Follow up in 3 months Indication: Controlled diabetes mellitus Encounter for screening for malignant neoplasm of colon (Renamed from Special screening for malignant neoplasms, colon) : *Colon Cancer Screening Indication: Encounter for screening for malignant neoplasm of colon (Renamed from Special screening for malignant neoplasms, colon) GERD (gastroesophageal reflux disease) : GERD Education Indication: GERD (gastroesophageal reflux disease) Hyperlipidemia : Cholesterol mgmt Indication: Hyperlipidemia Controlled diabetes mellitus : Eprescribed prescriptions (G8553) Indication: Controlled diabetes mellitus Controlled diabetes mellitus : Diabetes and Exercise: Preventing Low Blood Sugar: blood sugar Indication: Controlled diabetes mellitus Controlled diabetes mellitus : Follow up in 3 months Indication: Controlled diabetes mellitus Hyperlipidemia : Cholesterol mgmt Indication: Hyperlipidemia Controlled diabetes mellitus : Eprescribed prescriptions (G8553) Indication: Controlled diabetes mellitus Controlled diabetes mellitus : Diabetes and Exercise: Preventing Low Blood Sugar: blood sugar Indication: Controlled diabetes mellitus Diabetes mellitus type 2, uncontrolled, without complications : Reviewed Lab Indication: Diabetes mellitus type 2, uncontrolled, without complications Diabetes mellitus type 2, uncontrolled, without complications : *Diabetes Education Indication: Diabetes mellitus type 2, uncontrolled, without complications Hyperlipidemia : Cholesterol mgmt Indication: Hyperlipidemia Diabetes mellitus type 2, uncontrolled, without complications : Eprescribed prescriptions (G8553) Indication: Diabetes mellitus type 2, uncontrolled, without complications Controlled diabetes mellitus : Eprescribed prescriptions (G8553) Indication: Controlled diabetes mellitus Controlled diabetes mellitus : Follow up in 3 months Indication: Controlled diabetes mellitus GERD (gastroesophageal reflux disease) : GERD Education Indication: GERD (gastroesophageal reflux disease) Controlled diabetes mellitus : Follow up in 3 months Indication: Controlled diabetes mellitus Controlled diabetes mellitus : Reviewed Lab Indication: Controlled diabetes mellitus GERD (gastroesophageal reflux disease) : GERD Education Indication: GERD (gastroesophageal reflux disease) Hyperlipidemia : Cholesterol mgmt Indication: Hyperlipidemia Controlled diabetes mellitus : Diabetes and Exercise: Preventing Low Blood Sugar: blood sugar Indication: Controlled diabetes mellitus Controlled diabetes mellitus : Eprescribed prescriptions (G8553) Indication: Controlled diabetes mellitus Sinusitis, acute : *URI Treatment Indication: Sinusitis, acute Sinusitis, acute : *URI Symptoms Indication: Sinusitis, acute Sinusitis, acute : *Antibiotic Usage Education - Female Indication: Sinusitis, acute Controlled diabetes mellitus : Reviewed Lab Indication: Controlled diabetes mellitus Controlled diabetes mellitus : Follow up in 3 months Indication: Controlled diabetes mellitus Controlled diabetes mellitus : *Diabetes Education Indication: Controlled diabetes mellitus Hyperlipidemia : Cholesterol mgmt Indication: Hyperlipidemia GERD (gastroesophageal reflux disease) : GERD Education Indication: GERD (gastroesophageal reflux disease) ACUTE PHARYNGITIS (462.) : Sore throat: diagnosis and treatment Indication: ACUTE PHARYNGITIS (462.) Controlled diabetes mellitus : Follow up in 3 months Indication: Controlled diabetes mellitus GERD (gastroesophageal reflux disease) : GERD Education Indication: GERD (gastroesophageal reflux disease) Hyperlipidemia : Cholesterol mgmt Indication: Hyperlipidemia Controlled diabetes mellitus : Diabetes and Exercise: Preventing Low Blood Sugar: blood sugar Indication: Controlled diabetes mellitus UTI (urinary tract infection) : *UTI treatment Indication: UTI (urinary tract infection) UTI (urinary tract infection) : Water in diet, brief version Indication: UTI (urinary tract infection) Cerumen impaction : Follow up if no improvement or if symptoms worsen Indication: Cerumen impaction ALLERGIC RHINITIS DUE TO OTHER ALLERGEN : Allergy proofing Indication: ALLERGIC RHINITIS DUE TO OTHER ALLERGEN ALLERGIC RHINITIS DUE TO OTHER ALLERGEN : Allergy control Indication: ALLERGIC RHINITIS DUE TO OTHER ALLERGEN ALLERGIC RHINITIS DUE TO OTHER ALLERGEN : *URI Symptoms Indication: ALLERGIC RHINITIS DUE TO OTHER ALLERGEN ACUTE PHARYNGITIS (462.) : Sore Throat *: acute pharyngitis Indication: ACUTE PHARYNGITIS (462.) ACUTE PHARYNGITIS (462.) : Eprescribed prescriptions (G8553) Indication: ACUTE PHARYNGITIS (462.) Hyperlipidemia : Continue Current Prescription(s) Indication: Hyperlipidemia GERD (gastroesophageal reflux disease) : GERD Education Indication: GERD (gastroesophageal reflux disease) Controlled diabetes mellitus : Follow up in 3 months Indication: Controlled diabetes mellitus Hyperlipidemia : *Cholesterol - Nonprescription Treatment Indication: Hyperlipidemia Hyperlipidemia : Cholesterol mgmt Indication: Hyperlipidemia Controlled diabetes mellitus : Eprescribed prescriptions (G8553) Indication: Controlled diabetes mellitus Controlled diabetes mellitus : Diabetes and Exercise: Preventing Low Blood Sugar: blood sugar Indication: Controlled diabetes mellitus GERD (gastroesophageal reflux disease) : GERD Education Indication: GERD (gastroesophageal reflux disease) Hyperlipidemia : Cholesterol mgmt Indication: Hyperlipidemia Controlled diabetes mellitus : Diabetes and Exercise: Preventing Low Blood Sugar: blood sugar Indication: Controlled diabetes mellitus Chest pain : Reviewed Diagnostic Tests Indication: Chest pain Chest pain : Reviewed Sap Sd Analyst Letter Indication: Chest pain Chest pain : GERD Education Indication: Chest pain Wheezing : Follow up if no improvement or if symptoms worsen Indication: Wheezing Controlled diabetes mellitus : Follow up in 3 months Indication: Controlled diabetes mellitus GERD (gastroesophageal reflux disease) : GERD Education Indication: GERD (gastroesophageal reflux disease) Hyperlipidemia : Cholesterol mgmt Indication: Hyperlipidemia NEED FOR PROPHYLACTIC VACCINATION AND INOCULATION AGAINST INFLUENZA (V04.81) (Renamed from Need for prophylactic vaccination and inoculation against influenza) : Flu (Influenza) *: flu Indication: NEED FOR PROPHYLACTIC VACCINATION AND INOCULATION AGAINST INFLUENZA (V04.81) (Renamed from Need for prophylactic vaccination and inoculation against influenza) NEED FOR PROPHYLACTIC VACCINATION AND INOCULATION AGAINST INFLUENZA (V04.81) (Renamed from Need for prophylactic vaccination and inoculation against influenza) : Flu (Influenza) *: flu shot Indication: NEED FOR PROPHYLACTIC VACCINATION AND INOCULATION AGAINST INFLUENZA (V04.81) (Renamed from Need for prophylactic vaccination and inoculation against influenza) Cough : Cough: chest congestion Indication: Cough Controlled diabetes mellitus : Follow up in 3 months Indication: Controlled diabetes mellitus POLYARTHROPATHY, INFLAMMATORY NOS : Reviewed Sap Sd Analyst Letter Indication: POLYARTHROPATHY, INFLAMMATORY NOS Hyperlipidemia : Reviewed Lab Indication: Hyperlipidemia Controlled diabetes mellitus : *Diabetes Education Indication: Controlled diabetes mellitus Hyperlipidemia : Cholesterol mgmt Indication: Hyperlipidemia Controlled diabetes mellitus : Diabetes Mellitus: Type 2 *: type 2 diabetes Indication: Controlled diabetes mellitus Diabetes mellitus type 2, uncontrolled, without complications : Follow up in 3 months Indication: Diabetes mellitus type 2, uncontrolled, without complications Hyperlipidemia : Cholesterol mgmt Indication: Hyperlipidemia Diabetes mellitus type 2, uncontrolled, without complications : Diabetes Overview (Living with Diabetes): diabetes Indication: Diabetes mellitus type 2, uncontrolled, without complications Cough : Cough: uri Indication: Cough Hyperlipidemia : Cholesterol mgmt Indication: Hyperlipidemia POLYARTHROPATHY, INFLAMMATORY NOS : Reviewed Sap Sd Analyst Letter Indication: POLYARTHROPATHY, INFLAMMATORY NOS Controlled diabetes mellitus : Follow up in 3 months Indication: Controlled diabetes mellitus Hyperlipidemia : Cholesterol mgmt Indication: Hyperlipidemia GERD (gastroesophageal reflux disease) : GERD Education Indication: GERD (gastroesophageal reflux disease) Controlled diabetes mellitus : Diabetes Overview (Living with Diabetes): high blood glucose Indication: Controlled diabetes mellitus Diabetes mellitus type 2, uncontrolled, without complications : Follow up in 3 months Indication: Diabetes mellitus type 2, uncontrolled, without complications GERD (gastroesophageal reflux disease) : GERD Education Indication: GERD (gastroesophageal reflux disease) Hyperlipidemia : *Cholesterol - Nonprescription Treatment Indication: Hyperlipidemia Hyperlipidemia : Cholesterol mgmt Indication: Hyperlipidemia Diabetes mellitus type 2, uncontrolled, without complications : Diet, Exercise, and Wt loss Indication: Diabetes mellitus type 2, uncontrolled, without complications Diabetes mellitus type 2, uncontrolled, without complications : *Diabetes Education Indication: Diabetes mellitus type 2, uncontrolled, without complications GERD (gastroesophageal reflux disease) : GERD Education Indication: GERD (gastroesophageal reflux disease) Controlled diabetes mellitus : Follow up in 3 months Indication: Controlled diabetes mellitus Hyperlipidemia : *Cholesterol - Nonprescription Treatment Indication: Hyperlipidemia Hyperlipidemia : Cholesterol mgmt Indication: Hyperlipidemia Controlled diabetes mellitus : Diet, Exercise, and Wt loss Indication: Controlled diabetes mellitus Controlled diabetes mellitus : *Diabetes Education Indication: Controlled diabetes mellitus Controlled diabetes mellitus : Follow up in 3 months Indication: Controlled diabetes mellitus Hyperlipidemia : Reviewed Lab Indication: Hyperlipidemia GERD (gastroesophageal reflux disease) : GERD Education Indication: GERD (gastroesophageal reflux disease) Hyperlipidemia : *Cholesterol - Nonprescription Treatment Indication: Hyperlipidemia Hyperlipidemia : Cholesterol mgmt Indication: Hyperlipidemia Controlled diabetes mellitus : Diet, Exercise, and Wt loss Indication: Controlled diabetes mellitus Controlled diabetes mellitus : *Diabetes Education Indication: Controlled diabetes mellitus Other intervertebral disc degeneration, lumbar region : Diet, Exercise, and Wt loss Indication: Other intervertebral disc degeneration, lumbar region Controlled diabetes mellitus : Follow up in 3 months Indication: Controlled diabetes mellitus Hyperlipidemia : *Cholesterol - Nonprescription Treatment Indication: Hyperlipidemia Hyperlipidemia : Cholesterol mgmt Indication: Hyperlipidemia Controlled diabetes mellitus : Diet, Exercise, and Wt loss Indication: Controlled diabetes mellitus Controlled diabetes mellitus : *Diabetes Education Indication: Controlled diabetes mellitus Hyperlipidemia : *Cholesterol - Nonprescription Treatment Indication: Hyperlipidemia Hyperlipidemia : *Cholesterol - Medication Side Effects Indication: Hyperlipidemia Abnormal glucose tolerance test : FOLLOW UP IN 6 MONTHS Indication: Abnormal glucose tolerance test GERD (gastroesophageal reflux disease) : GERD Education Indication: GERD (gastroesophageal reflux disease) Abnormal glucose tolerance test : *Diabetes Education Indication: Abnormal glucose tolerance test Abnormal glucose tolerance test : Diet, Exercise, and Wt loss Indication: Abnormal glucose tolerance test Bronchitis : *URI Treatment Indication: Bronchitis Bronchitis : *URI Symptoms Indication: Bronchitis Bronchitis : *Antibiotic Usage Education - Female Indication: Bronchitis Controlled diabetes mellitus : FOLLOW UP IN 3 MONTHS Indication: Controlled diabetes mellitus GERD (gastroesophageal reflux disease) : GERD Education Indication: GERD (gastroesophageal reflux disease) Hyperlipidemia : CHOLESTEROL MGMT. Indication: Hyperlipidemia Hyperlipidemia : *Cholesterol - Nonprescription Treatment Indication: Hyperlipidemia Hyperlipidemia : *Cholesterol - Medication Side Effects Indication: Hyperlipidemia Controlled diabetes mellitus : Diet, Exercise, and Wt loss Indication: Controlled diabetes mellitus Controlled diabetes mellitus : *Diabetes Education Indication: Controlled diabetes mellitus Bronchitis : *URI Treatment Indication: Bronchitis Bronchitis : *URI Symptoms Indication: Bronchitis Bronchitis : *Antibiotic Usage Education - Female Indication: Bronchitis Controlled diabetes mellitus : FOLLOW UP IN 3 MONTHS Indication: Controlled diabetes mellitus GERD (gastroesophageal reflux disease) : GERD Education Indication: GERD (gastroesophageal reflux disease) Hyperlipidemia : CHOLESTEROL MGMT. Indication: Hyperlipidemia Hyperlipidemia : *Cholesterol - Nonprescription Treatment Indication: Hyperlipidemia Hyperlipidemia : *Cholesterol - Medication Side Effects Indication: Hyperlipidemia Controlled diabetes mellitus : Diet, Exercise, and Wt loss Indication: Controlled diabetes mellitus Controlled diabetes mellitus : *Diabetes Education Indication: Controlled diabetes mellitus GERD (gastroesophageal reflux disease) : GERD Education Indication: GERD (gastroesophageal reflux disease) Hyperlipidemia : CHOLESTEROL MGMT. Indication: Hyperlipidemia Hyperlipidemia : Cholesterol - Nonprescription Treatment Indication: Hyperlipidemia Hyperlipidemia : Cholesterol - Medication Side Effects Indication: Hyperlipidemia Controlled diabetes mellitus : Diet, Exercise, and Wt loss Indication: Controlled diabetes mellitus Controlled diabetes mellitus : *Diabetes Education Indication: Controlled diabetes mellitus Knee pain : Knee Injections Indication: Knee pain Controlled diabetes mellitus : Diet, Exercise, and Wt loss Indication: Controlled diabetes mellitus Controlled diabetes mellitus : *Diabetes Education Indication: Controlled diabetes mellitus Hyperlipidemia : CHOLESTEROL MGMT. Indication: Hyperlipidemia Hyperlipidemia : Cholesterol - Nonprescription Treatment Indication: Hyperlipidemia Hyperlipidemia : Cholesterol - Medication Side Effects Indication: Hyperlipidemia GERD (gastroesophageal reflux disease) : GERD Education Indication: GERD (gastroesophageal reflux disease) Acute sinusitis, unspecified : *URI Treatment Indication: Acute sinusitis, unspecified Acute sinusitis, unspecified : Antibiotic Usage Education - Female Indication: Acute sinusitis, unspecified Acute sinusitis, unspecified : URI Symptoms Indication: Acute sinusitis, unspecified Controlled diabetes mellitus : *Diabetes Education Indication: Controlled diabetes mellitus Hyperlipidemia : Cholesterol - Nonprescription Treatment Indication: Hyperlipidemia Hyperlipidemia : CHOLESTEROL MGMT. Indication: Hyperlipidemia Hyperlipidemia : Cholesterol - Medication Side Effects Indication: Hyperlipidemia GERD (gastroesophageal reflux disease) : GERD Education Indication: GERD (gastroesophageal reflux disease) Bronchitis : *URI Treatment Indication: Bronchitis Bronchitis : Antibiotic Usage Education - Female Indication: Bronchitis Bronchitis : URI Symptoms Indication: Bronchitis ACUTE PHARYNGITIS (462.) : Sore throat: diagnosis and treatment Indication: ACUTE PHARYNGITIS (462.) Controlled diabetes mellitus : *Diabetes Education Indication: Controlled diabetes mellitus Hyperlipidemia : CHOLESTEROL MGMT. Indication: Hyperlipidemia Hyperlipidemia : Cholesterol - Medication Side Effects Indication: Hyperlipidemia Hyperlipidemia : Cholesterol - Nonprescription Treatment Indication: Hyperlipidemia GERD (gastroesophageal reflux disease) : GERD Education Indication: GERD (gastroesophageal reflux disease) GERD (gastroesophageal reflux disease) : GERD Education Indication: GERD (gastroesophageal reflux disease) Hyperlipidemia : CHOLESTEROL MGMT. Indication: Hyperlipidemia Hyperlipidemia : Cholesterol - Medication Side Effects Indication: Hyperlipidemia Hyperlipidemia : Cholesterol - Nonprescription Treatment Indication: Hyperlipidemia Cystitis, acute : Follow up for recheck urine 1 week after complete antibiotic Indication: Cystitis, acute Cystitis, acute : UTI treatment Indication: Cystitis, acute Cystitis, acute : Water in diet, brief version Indication: Cystitis, acute GERD (gastroesophageal reflux disease) : GERD Education Indication: GERD (gastroesophageal reflux disease) Hyperlipidemia : CHOLESTEROL MGMT. Indication: Hyperlipidemia Hyperlipidemia : Cholesterol - Nonprescription Treatment Indication: Hyperlipidemia Hyperlipidemia : Cholesterol - Medication Side Effects Indication: Hyperlipidemia Acute sinusitis, unspecified : *URI Treatment Indication: Acute sinusitis, unspecified Acute sinusitis, unspecified : Antibiotic Usage Education - Female Indication: Acute sinusitis, unspecified Acute sinusitis, unspecified : URI Symptoms Indication: Acute sinusitis, unspecified GERD (gastroesophageal reflux disease) : Continue Current Prescription(s) Indication: GERD (gastroesophageal reflux disease) Hyperlipidemia : Continue Current Prescription(s) Indication: Hyperlipidemia Controlled diabetes mellitus : Continue Current Prescription(s) Indication: Controlled diabetes mellitus Hyperlipidemia : CHOLESTEROL MGMT. Indication: Hyperlipidemia Hyperlipidemia : Cholesterol - Nonprescription Treatment Indication: Hyperlipidemia Hyperlipidemia : Cholesterol - Medication Side Effects Indication: Hyperlipidemia GERD (gastroesophageal reflux disease) : GERD Education Indication: GERD (gastroesophageal reflux disease) Controlled diabetes mellitus : *Diabetes Education Indication: Controlled diabetes mellitus Controlled diabetes mellitus : Diet and Exercise Indication: Controlled diabetes mellitus Hyperlipidemia : Diet and Exercise Indication: Hyperlipidemia Hyperlipidemia : Cholesterol - Medication Side Effects Indication: Hyperlipidemia Hyperlipidemia : Cholesterol - Nonprescription Treatment Indication: Hyperlipidemia GERD (gastroesophageal reflux disease) : GERD Education Indication: GERD (gastroesophageal reflux disease) Planned Observations URINALYSIS, W/ MICRO ([id number])Indication: Controlled diabetes mellitus On: 60-Xka-649123:59 Request MICROALBUMIN: CREATININE RATIO ([id number]) AND ([id number])Indication: Controlled diabetes mellitus On: 22-Riw-301401:59 Request METABOLIC PANEL, COMPREHENSIVE ([id number])Indication: Controlled diabetes mellitus On: 48-Cro-707972:59 Request CBC W/AUTO DIFF WBC ([id number])Indication: Controlled diabetes mellitus On: 38-Dwi-853123:59 Request CALCIFIDIOL ([id number]) VIT D 25Indication: Vitamin D deficiency On: 29-Uzz-359692:59 Request LIPOPROTEIN, BLD, BY NMR ([id number])Indication: Hyperlipidemia On: 81-Mna-851827:59 Request CALCIFIDIOL ([id number]) VIT D 25Indication: Vitamin D deficiency On: 43-Djs-67616:50 Request TSH ([id number])Indication: Diabetes mellitus type 2, uncontrolled, without complications On: :50 Request URINALYSIS, W/ MICRO ([id number])Indication: Diabetes mellitus type 2, uncontrolled, without complications On: :49 Request MICROALBUMIN: CREATININE RATIO ([id number]) AND ([id number])Indication: Diabetes mellitus type 2, uncontrolled, without complications On: :49 Request METABOLIC PANEL, COMPREHENSIVE ([id number])Indication: Diabetes mellitus type 2, uncontrolled, without complications On: :49 Request LIPID PANEL ([id number])Indication: Diabetes mellitus type 2, uncontrolled, without complications On: :49 Request CBC W/AUTO DIFF WBC ([id number])Indication: Diabetes mellitus type 2, uncontrolled, without complications On: :49 Request URINALYSIS, W/ MICRO ([id number])Indication: Diabetes mellitus type 2, uncontrolled, without complications On: :00 Request Blood Glucose , Office ([id number])Indication: Diabetes mellitus type 2, uncontrolled, without complications On: 53-Mee-419951:11 Request Influenza A&B Viral Culture ([id number])Indication: Body aches On: 14-Ryj-51870:55 Request FECAL OCCULT- Tubes sent home ([id number])Indication: Encounter for screening for malignant neoplasm of colon (Renamed from Special screening for malignant neoplasms, colon) On: :34 Request Throat Culture ([id number])Indication: ACUTE PHARYNGITIS (462.) On: :06 Request HEPATIC FUNCTION PANEL ([id number])Indication: Hyperlipidemia On: :17 Request LIPID PANEL ([id number])Indication: Hyperlipidemia On: :17 Request Rapid Strep Test, Office ([id number])Indication: ACUTE PHARYNGITIS (462.) On: :04 Request METABOLIC PANEL, COMPREHENSIVE ([id number])Indication: Controlled diabetes mellitus On: :48 Request CBC WITH MANUAL DIFF ([id number])Indication: Controlled diabetes mellitus On: :48 Request LIPID PANEL ([id number])Indication: Hyperlipidemia On: :45 Request LIPID PANEL ([id number])Indication: Hyperlipidemia On: 6-Nov-54085:34 Request LIPID PANEL ([id number])Indication: Controlled diabetes mellitus On: 73-Wgk-12931:23 Request TSH ([id number])Indication: Controlled diabetes mellitus On: 48-Bkk-904799:00 Request MICROALBUMIN: CREATININE RATIO ([id number]) AND ([id number])Indication: Controlled diabetes mellitus On: 35-Amu-042977:00 Request METABOLIC PANEL, COMPREHENSIVE ([id number])Indication: Controlled diabetes mellitus On: :00 Request LIPID PANEL ([id number])Indication: Controlled diabetes mellitus On: 03-Nku-839081:00 Request CBC WITH MANUAL DIFF ([id number])Indication: Controlled diabetes mellitus On: :00 Request URINALYSIS W MICROSCOPY ([id number])Indication: Cystitis, acute On: 19-Bsp-387656:58 Request URINALYSIS W/O MICRO ([id number])Indication: Controlled diabetes mellitus On: 04-Kor-55607:26 Request TSH ([id number])Indication: Controlled diabetes mellitus On: 60-Sye-62942:26 Request METABOLIC PANEL, COMPREHENSIVE ([id number])Indication: Controlled diabetes mellitus On: 15-Cla-29715:26 Request MICROALBUMIN URINE QUANT ([id number])Indication: Controlled diabetes mellitus On: 07-Oal-42135:26 Request LIPID PANEL ([id number])Indication: Controlled diabetes mellitus On: 95-Sip-42352:26 Request CBC WITH MANUAL DIFF ([id number])Indication: Controlled diabetes mellitus On: 68-Szj-86924:26 Request LUKE CULTURE-OTHER ([id number])Indication: Throat pain On: 76-Ada-122022:55 Request TSH ([id number])Indication: Controlled diabetes mellitus On: 99-Ldf-23735:14 Request LIPID PANEL ([id number])Indication: Controlled diabetes mellitus On: 59-Flp-45214:14 Request MICROALBUMIN URINE QUANT ([id number])Indication: Controlled diabetes mellitus On: 55-Uzx-02326:14 Request LIPID PANEL ([id number])Indication: Family history of diabetes mellitus On: 66-Yob-479288:10 Request Glucose, PP/2 Hour ([id number])Indication: Family history of diabetes mellitus On: 09-Lei-239745:10 Request Planned Encounters Medical; 3 Month FU - On: 03-May-2018 8:15 [facility] Ruth Jones DO, DO, Kathleen Planned Procedures Holter Monitor 24 hrsBy: Karen SINGH, On: 22-Feb-2017 Intent Ruth Ibarra DO Comments: maryam to read ELECTROCARDIOGRAM, COMPLETE (ECG) On: 22-Feb-2017 Intent ([id number])By: Ruth Jones DO Comments: nsr no acute chg Ruth Jones DO ELECTROCARDIOGRAM, COMPLETE (ECG) On: 07-Jul-2016 Intent ([id number])By: Ruth Jones DO Comments: nsr no acute chg Ruth Jones DO Spirometry ([id number])By: Karen SINGH On: 02-Mar-2016 Intent Ruth Ibarra DO Comments: normal Aerosol Treatment ([id number])By: Kaleb On: 28-Feb-2016 Intent Trinh GONZALEZ EKG ([id number])By: Ruth Jones DO On: 21-Aug-2014 Intent Ruth Jones DO Comments: sinus carroll no acute chg SPECIMEN HNDLNG/TRNSPRT, OFFC > LAB On: 24-Feb-2014 Intent ([id number])By: Jaquelin Shore CNP Flu Vaccine (Quadrivalent) 32241Qk: On: 18-Dec-2013 Intent Ruth Jones DO, DO, Comments: Lot:[id number]/27Amt:0.5mlRoute:IMSite: L DltdGiven By: KENYATTA Marsh signed Ruth ADMINISTRATION OF INFLUENZA VIRUS On: 18-Dec-2013 Intent VACCINE ([id number])By: Ruth Jones DO, DO, Kathleen Ear Irrigation ([id number])By: Silviano On: 06-Oct-2013 Intent Jaquelin FRANKEL Comments: addendum to 10/06/13 OVEar Irrigation performed on:left earAmount/color removed cerumen:dark brown, large amountOUtcome:clearUsed wax curettes Wax CurettesBy: Jaquelin Shore CNP On: 06-Oct-2013 Intent Ear Irrigation ([id number])By: Silviano On: 06-Oct-2013 Intent Jaquelin FRANKEL Eprescribed prescriptions ([id number])By: On: 20-Jun-2013 Ruth Villanueva DO, DO, Kathleen EKG ([id number])By: Ruth Jones DO On: 20-Jun-2013 Intent Ruth Jones DO Comments: nsr no acute chg Eprescribed prescriptions ([id number])By: On: 28-Mar-2013 Intent Karen SINGH Ruth Karen DO, Ruth Aerosol Treatment ([id number])By: On: 17-Feb-2013 Intent Natalie Covington Eprescribed prescriptions ([id number])By: On: 17-Feb-2013 Intent Natalie Covington Ultrasound - Abdomen CompleteBy: On: 16-Jan-2013 Intent Karen SINGHRuth Karen DO, Ruth FLU VAC, SPLIT, >3 YEARS, INTRAMUSC On: 16-Jan-2013 Intent ([id number])By: Karla Santana LPN Comments: Lot:[id number]:0.5mlRoute:IMSite: L DltdGiven By: LISA MarshVIS signed IMMUNIZ ADMNIN, 1 VAC, SNGL/COMBO On: 16-Jan-2013 Intent ([id number])By: Karla Santana LPN Aerosol Treatment ([id number])By: Ciesa On: 28-Oct-2012 Intent Jaquelin FRANKEL Eprescribed prescriptions ([id number])By: On: 28-Oct-2012 Intent Natalie Covington EKG ([id number])By: Ruth Jones DO On: 24-May-2012 Intent Ruth Jones DO Eprescribed prescriptions ([id number])By: On: 24-May-2012 Intent Karla Santana LPN Eprescribed prescriptions ([id number])By: On: 11-Jan-2012 Intent Karla Santana LPN Eprescribed prescriptions ([id number])By: On: 01-Dec-2011 Intent Karla Santana LPN PNEUM VAC ADLT/IMUMNOSPR, SBC/INTRM On: 08-Sep-2011 Intent ([id number])By: Ruth Jones DO Comments: Lot #[id number]/12Site-left deltoidDose- 0.5mlgiven by: LISA Soni DO, Kathleen IMMUNIZ ADMNIN, 1 VAC, SNGL/COMBO On: 08-Sep-2011 Intent ([id number])By: Ruth Jones DO, DO, Kathleen EKG ([id number])By: Ruth Jones DO On: 17-Mar-2011 Intent Ruth Jones DO Comments: nsr no acute changes MRI - Lumbar SpineBy: Karen SINGH, On: 22-Dec-2010 Intent Ruth Ibarra DO FLU VAC, SPLIT, >3 YEARS, INTRAMUSC On: 09-Dec-2010 Intent ([id number])By: Gabriella Dey LPN Comments: had done at work in early November IMMUNIZ ADMNIN, 1 VAC, SNGL/COMBO On: 09-Dec-2010 Intent ([id number])By: Gabriella Dey LPN EKG ([id number])By: Ruth Jones DO On: 29-Apr-2010 Intent Ruth Jones DO Comments: nsr no acute ishcemic changes Aerosol Treatment ([id number])By: Silviano On: 19-May-2009 Intent Jaquelin FRANKEL EKG ([id number])By: Ruth Jones DO On: 18-Dec-2008 Intent Ruth Jones DO Comments: nsr no acute ischemic changes TDAP VACCINE >7 IM ([id number])By: Karen On: 26-Jun-2008 Ruth Bejarano DO, DO, Kathleen Comments: Lot #: [id number] date: mount given:0.5 mlRoute: IMSite given: Right deltoidGiven by: Jonathan Woodruff LPN Pulse Oximetry ([id number])By: Silviano FRANKEL, On: 04-Feb-2008 Intent Rossy Aerosol Treatment ([id number])By: Silviano On: 04-Feb-2008 Intent Jaquelin FRANKEL EKG ([id number])By: Ruth Jones DO On: 04-Oct-2007 Intent Ruth Jones DO Comments: nsr no acute ischemic changes Ear Irrigation ([id number])By: Karen On: 01-Jan-2007 Ruth Bejarano DO, DO, Kathleen Comments: LEFT --KEISHA WELL EKG ([id number])By: Ruth Jones DO On: 03-Aug-2006 Intent Ruth Jones DO Comments: nsr no acute ischemic changes Instructions Name Dates Details Current nonsmoker : How to access health information online Indication: Current nonsmoker Current nonsmoker : How to access health information online - Detail Indication: Current nonsmoker Current nonsmoker : Patient Instructions Indication: Current nonsmoker Controlled diabetes mellitus : How to access health information online Indication: Controlled diabetes mellitus Controlled diabetes mellitus : How to access health information online - Detail Indication: Controlled diabetes mellitus Controlled diabetes mellitus : Patient Instructions Indication: Controlled diabetes mellitus BMI 35.0-35.9,adult : How to access health information online Indication: BMI 35.0-35.9,adult BMI 35.0-35.9,adult : How to access health information online - Detail Indication: BMI 35.0-35.9,adult BMI 35.0-35.9,adult : Patient Instructions Indication: BMI 35.0-35.9,adult Diabetes mellitus type 2, uncontrolled, without complications : How to access health information online Indication: Diabetes mellitus type 2, uncontrolled, without complications Diabetes mellitus type 2, uncontrolled, without complications : How to access health information online - Detail Indication: Diabetes mellitus type 2, uncontrolled, without complications Diabetes mellitus type 2, uncontrolled, without complications : Patient Instructions Indication: Diabetes mellitus type 2, uncontrolled, without complications Upper respiratory infection, acute : How to access health information online Indication: Upper respiratory infection, acute Upper respiratory infection, acute : How to access health information online - Detail Indication: Upper respiratory infection, acute Upper respiratory infection, acute : Patient Instructions Indication: Upper respiratory infection, acute Diabetes mellitus type 2, uncontrolled, without complications : How to access health information online - Detail Indication: Diabetes mellitus type 2, uncontrolled, without complications Diabetes mellitus type 2, uncontrolled, without complications : How to access health information online Indication: Diabetes mellitus type 2, uncontrolled, without complications Diabetes mellitus type 2, uncontrolled, without complications : Patient Instructions Indication: Diabetes mellitus type 2, uncontrolled, without complications BMI 39.0-39.9,adult : How to access health information online Indication: BMI 39.0-39.9,adult BMI 39.0-39.9,adult : How to access health information online - Detail Indication: BMI 39.0-39.9,adult BMI 39.0-39.9,adult : Patient Instructions Indication: BMI 39.0-39.9,adult ACUTE PHARYNGITIS (462.) : How to access health information online Indication: ACUTE PHARYNGITIS (462.) ACUTE PHARYNGITIS (462.) : How to access health information online - Detail Indication: ACUTE PHARYNGITIS (462.) ACUTE PHARYNGITIS (462.) : Patient Instructions Indication: ACUTE PHARYNGITIS (462.) Psoriatic arthritis : Patient Instructions Indication: Psoriatic arthritis Controlled diabetes mellitus : How to access health information online Indication: Controlled diabetes mellitus Controlled diabetes mellitus : How to access health information online - Detail Indication: Controlled diabetes mellitus Controlled diabetes mellitus : How to access health information online Indication: Controlled diabetes mellitus Controlled diabetes mellitus : How to access health information online - Detail Indication: Controlled diabetes mellitus Controlled diabetes mellitus : Patient Instructions Indication: Controlled diabetes mellitus Diabetes mellitus type 2, uncontrolled, without complications : How to access health information online - Detail Indication: Diabetes mellitus type 2, uncontrolled, without complications Diabetes mellitus type 2, uncontrolled, without complications : Patient Instructions Indication: Diabetes mellitus type 2, uncontrolled, without complications Controlled diabetes mellitus : How to access health information online Indication: Controlled diabetes mellitus Controlled diabetes mellitus : How to access health information online - Detail Indication: Controlled diabetes mellitus Controlled diabetes mellitus : Patient Instructions Indication: Controlled diabetes mellitus Controlled diabetes mellitus : How to access health information online Indication: Controlled diabetes mellitus Controlled diabetes mellitus : How to access health information online - Detail Indication: Controlled diabetes mellitus Controlled diabetes mellitus : Patient Instructions Indication: Controlled diabetes mellitus Hyperlipidemia : Patient Instructions Indication: Hyperlipidemia UTI (urinary tract infection) : Patient Instructions Indication: UTI (urinary tract infection) UTI (urinary tract infection) : How to access health information online Indication: UTI (urinary tract infection) UTI (urinary tract infection) : How to access health information online - Detail Indication: UTI (urinary tract infection) ACUTE PHARYNGITIS (462.) : How to access health information online Indication: ACUTE PHARYNGITIS (462.) ACUTE PHARYNGITIS (462.) : How to access health information online - Detail Indication: ACUTE PHARYNGITIS (462.) ACUTE PHARYNGITIS (462.) : Patient Instructions Indication: ACUTE PHARYNGITIS (462.) Controlled diabetes mellitus : How to access health information online Indication: Controlled diabetes mellitus Controlled diabetes mellitus : How to access health information online - Detail Indication: Controlled diabetes mellitus Controlled diabetes mellitus : Patient Instructions Indication: Controlled diabetes mellitus Controlled diabetes mellitus : Patient Instructions Indication: Controlled diabetes mellitus Chest pain : Patient Instructions Indication: Chest pain Cough : Patient Instructions Indication: Cough Cough : Patient Instructions Indication: Cough Diabetes mellitus type 2, uncontrolled, without complications : Patient Instructions Indication: Diabetes mellitus type 2, uncontrolled, without complications Cough : Patient Instructions Indication: Cough Controlled diabetes mellitus : Patient Instructions Indication: Controlled diabetes mellitus Encounters Office Visit On: 18-Feb-2018 10:50 Encounter Reason: Rash - Symptoms include skin bumps, pain, pruritus and skin redness. The skin rash is located on the right truncal area. Onset was 1 day(s) ago. The patient describes this as worsening. The patient is n End: 18-Feb-2018 12:29 ot currently being treated for this problem. Note for Rash: Symptoms started 1 day ago with red rash that itches, painful and numbess on right area of lower abd. No new lotions, soaps, medications.Encounter Diagnosis: BMI 34.0-34.9,adult, Current nonsmoker, Rash, Shingles [facility] Office Visit On: 01-Feb-2018 11:24 Encounter Reason: Follow up for chronic medical issues - The patient feels well with minor complaints, has decreased energy level and is sleeping well. Patient has been compliant with instructions. Current medication use End: 01-Feb-2018 12:07 : experiencing side effects. Patient sleeps 10 hours per night. Nutrition: balanced diet and supplemental vitamins. The medical issues the patient is following up for include All identified problems bel ow, blood sugar issues, high blood pressure, high cholesterol and other. blood pressure range :, fasting blood sugars : and weight :.Encounter Diagnosis: BMI 34.0- 34.9,adult, Invasive ductal carcinoma of breast, left, Hyperlipidemia, Vitamin D deficiency, POLYARTHROPATHY, INFLAMMATORY NOS (714.9), Controlled diabetes mellitus [facility] Office Visit On: 21-Sep-2017 7:11 Encounter Reason: Follow up for chronic medical issues - The patient feels well with minor complaints, has good energy level and is sleeping well. Patient has been compliant with instructions. Current medication use: exp End: 21-Sep-2017 9:36 eriencing side effects. Patient sleeps 10 hours per night. Nutrition: balanced diet and supplemental vitamins. The medical issues the patient is following up for include All identified problems below, b lood sugar issues, high blood pressure, high cholesterol and other. 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 Patient has been compliant with instructions. Current medication use: no End: 22-Feb-2017 7:55 side effects. Patient sleeps 8 (takes tylenol pm and sometimes gets 10h) hours per night. Nutrition: balanced diet and supplemental vitamins. The medical issues the patient is following up for include A ll identified problems below, blood sugar issues, high blood pressure, high cholesterol and other. blood pressure range :, fasting blood sugars : and weight :., [ADDITIONAL REASON] Follow up tests - Date: (December - Dr Otto labs and shoulder). Encounter Diagnosis: Current nonsmoker, Diabetes mellitus type 2, uncontrolled, without complications, BMI 37.0-37.9, adult, Hyperlipidemia, Nutritional counseling, Psoriatic arthritis, Vitamin D deficiency, GERD (gastroesophageal reflux disease), Palpitations [facility] Phone Encounter On: 21-Dec-2016 8:33 Encounter Diagnosis: Encounter for screening colonoscopy End: 21-Dec-2016 8:43 [facility] Phone Encounter On: 30-Oct-2016 17:19 [facility] End: 30-Oct-2016 17:20 Office Visit On: 27-Oct-2016 9:37 Encounter Reason: Cold Symptoms - Symptoms include nasal congestion, runny nose, productive cough (brown), facial pressure and facial pain. Onset was sudden 3 day(s) ago. Note for Cold symptoms: blowing out yeellow prashant End: 27-Oct-2016 10:13 t of facila pressure and coughing up taupe color and temp 100 last night- and is sobEncounter Diagnosis: BMI 37.0-37.9, adult, Current nonsmoker, Upper respiratory infection, acute [facility] Office Visit On: 26-Oct-2016 7:08 Encounter Reason: Follow up tests - Date: (10/25/16)., [ADDITIONAL REASON] Follow up for chronic medical issues - The patient feels well with minor complai End: 26-Oct-2016 7:38 nts, has good energy level and is sleeping well. Patient has been compliant with instructions. Current medication use: no side effects. Patient sleeps 8 hours per night. Nutrition: balanced diet and sup plemental vitamins. The medical issues the patient is following up for include All identified problems below, blood sugar issues, high blood pressure, high cholesterol and other. blood pressure range :, fasting blood sugars : and weight :. Encounter Diagnosis: Current nonsmoker, BMI 37.0-37.9, adult, Vitamin D deficiency, GERD (gastroesophageal reflux disease), Hyperlipidemia, Controlled diabetes mellitus, Psoriatic arthritis, URI, acute [facility] Office Visit On: 07-Jul-2016 7:25 Encounter Reason: Follow up for chronic medical issues - The patient feels well with minor complaints, has good energy level and is sleeping well. Patient has been compliant with instructions. Current medication use: no End: 07-Jul-2016 8:45 side effects and compliant with dosing regimen. Patient sleeps 9 hours per night. Nutrition: balanced diet and supplemental vitamins. The medical issues the patient is following up for include All ident ified problems below, blood sugar issues, high blood pressure, high cholesterol and other. weight :.Encounter Diagnosis: BMI 38.0-38.9,adult, Current nonsmoker, Psoriatic arthritis, Immunocompromised, acquired, Hyperlipidemia, GERD (gastroesophageal reflux disease), Vitamin D deficiency, Diabetes mellitus type 2, uncontrolled, without complications, Nutritional counseling, Osteoarthritis, unspecified osteoarthritis type, unspecified site, Anxiety (300.00) [facility] Office Visit On: 06-Apr-2016 10:47 Encounter Reason: Follow up for chronic medical issues - The patient feels well with minor complaints, has good energy level and is sleeping well. Patient has been compliant with instructions. Current medication use: no End: 06-Apr-2016 11:36 side effects, experiencing side effects, has decreased dose, has increased dose, compliant with dosing regimen, non-compliant with dosing regimen, considered effective by patient and not considered effe ctive by patient. Patient sleeps 8 hours per night. Nutrition: balanced diet and supplemental vitamins. The medical issues the patient is following up for include All identified problems below, blood nicholson gar issues, high blood pressure and high cholesterol. fasting blood sugars : and weight :.Encounter Diagnosis: Current nonsmoker, BMI 39.0-39.9,adult, Diabetes mellitus type 2, uncontrolled, without complications, Vitamin D deficiency, GERD (gastroesophageal reflux disease), Hyperlipidemia, Immunocompromised, acquired, Psoriatic arthritis, Migraine with aura and without status migrainosus, not intractable [facility] Office Visit On: 02-Mar-2016 12:33 Encounter Reason: Follow up acute care visit - The patient feeling better since last seen. Patient has been compliant with instructions. Current medication use: no side effects.Encounter Diagnosis: BMI 40.0-44.9, adult, Current nonsmoker, Cough, End: 02-Mar-2016 15:28 Bronchitis [facility] Office Visit On: 28-Feb-2016 11:08 Encounter Reason: Cough - Symptoms include cough, wheezing and runny nose. The cough is described as productive (scant). Cough onset was 4 day(s) ago. Symptoms are described as worsening. Symptoms are not exacerbated by End: 28-Feb-2016 11:45 smoke exposure, pollen exposure, animal exposure, going outside, activity, lying down, cold temperature or inhaled bronchodilator use. Symptoms are not relieved by air conditioning, humidified air, warm drinks, warm weather, avoiding irritants, resting, lying down, sitting up, cough drops, cough medicine, acetaminophen, nonsteroidal anti-inflammatory drugs or inhaled bronchodilator use. Associated sym ptoms include headache. Current treatment includes antibiotics (took 3 augmentin). By report there is good compliance with treatment and poor symptom control. Previous presentation included a cough and dyspnea.Encounter Diagnosis: Cough, BMI 40.0-44.9, adult, Current nonsmoker [facility] Visit On: 10-Feb-2016 9:40 Encounter Reason: Sore Throat - Symptoms include sore throat and fever. The symptoms are symmetrical. The pain radiates to the left ear, left neck, right ear and right neck. The patient describes the pain as sharp, burni End: 10-Feb-2016 16:39 ng and stinging. Onset was sudden 2 day(s) ago.Encounter Diagnosis: ACUTE PHARYNGITIS (462.), Body aches [facility] Office Visit On: 02-Dec-2015 7:03 Encounter Reason: Follow up for chronic medical issues - The patient feels well with minor complaints, has good energy level and is sleeping well. Patient has been compliant with instructions. Current medication use: no End: 02-Dec-2015 7:37 side effects and compliant with dosing regimen. Patient sleeps 9 hours per night. Nutrition: balanced diet and supplemental vitamins. The medical issues the patient is following up for include All ident ified problems below, blood sugar issues, high blood pressure and high cholesterol. weight :.Encounter Diagnosis: Hyperlipidemia, Controlled diabetes mellitus, Psoriatic arthritis, Vitamin D deficiency, GERD (gastroesophageal reflux disease), Immunocompromised, acquired, Encounter for screening for malignant neoplasm of colon (Renamed from Special screening for malignant neoplasms, colon) [facility] Office Visit On: 26-Aug-2015 6:46 Encounter Reason: Follow up tests - Date: (08/20/15 labs)., [ADDITIONAL REASON] Follow up for chronic medical issues - The patient does not feel well, has good End: 26-Aug-2015 8:05 energy level and is sleeping well. Patient has been compliant with instructions. Current medication use: no side effects and compliant with dosing regimen. Patient sleeps 9 hours per night. Nutrition: b alanced diet and supplemental vitamins. The medical issues the patient is following up for include All identified problems below, blood sugar issues, high blood pressure and high cholesterol. weight :. , [ADDITIONAL REASON] Sore Throat - No changes in management were made at the last visit. Symptoms include sore throat, swollen glands and fever. The symptoms are symmetrical. The pain radiates to the le ft ear and right ear. The patient describes the pain as aching. Onset was sudden 3 day(s) ago. The symptoms occur constantly. The patient describes this as moderate in severity and worsening. Encounter Diagnosis: ACUTE PHARYNGITIS (462.), Vitamin D deficiency, Hyperlipidemia, Immunocompromised, acquired, Psoriatic arthritis, Controlled diabetes mellitus, Anxiety (300.00), POLYARTHROPATHY, INFLAMMATORY NOS (714.9) [facility] Phone Encounter On: 28-Jul-2015 16:11 Encounter Diagnosis: Diabetes mellitus type 2, uncontrolled, without complications, Hyperlipidemia, Vitamin D deficiency End: 28-Jul-2015 16:23 [facility] Office Visit On: 19-Mar-2015 7:13 Encounter Reason: Follow up tests - Date: (03/12/15 labs)., [ADDITIONAL REASON] Follow up for chronic medical issues - The patient feels well with minor complai End: 19-Mar-2015 16:48 nts, has good energy level and is sleeping well. Patient has been compliant with instructions. Current medication use: no side effects and compliant with dosing regimen. Patient sleeps 8 hours per night . Nutrition: balanced diet and supplemental vitamins. The medical issues the patient is following up for include All identified problems below, blood sugar issues, high blood pressure and high cholester ol. blood pressure range :, fasting blood sugars : and weight :. Encounter Diagnosis: Diabetes mellitus type 2, uncontrolled, without complications, Anxiety (300.00), Psoriatic arthritis, GERD (gastroesophageal reflux disease), Vitamin D deficiency, Hyperlipidemia, Immunocompromised, acquired [facility] Office Visit On: 11-Dec-2014 7:04 Encounter Reason: Follow up for chronic medical issues - The patient feels well with minor complaints, has good energy level and is sleeping well. Patient has been compliant with instructions. Current medication use: no End: 11-Dec-2014 11:10 side effects and compliant with dosing regimen. Patient sleeps 9 hours per night. Nutrition: balanced diet and supplemental vitamins. The medical issues the patient is following up for include All ident ified problems below, blood sugar issues, high blood pressure and high cholesterol. weight :., [ADDITIONAL REASON] Follow up tests - Date: (12/10/14 labs). Encounter Diagnosis: Hyperlipidemia, GERD (gastroesophageal reflux disease), Vitamin D deficiency, Controlled diabetes mellitus, Osteoarthritis- Generalized or Localized, Involving Unspecified Site (715.90), Psoriatic arthritis, Immunocompromised, acquired [facility] Phone Encounter On: 21-Sep-2014 16:30 Encounter Diagnosis: Headache,Migraine (346.00) End: 21-Sep-2014 16:32 [facility] Office Visit On: 21-Aug-2014 7:52 Encounter Reason: Follow up tests - Date: (08/18/14 labs)., [ADDITIONAL REASON] Follow up for chronic medical issues - The patient feels well with minor complai End: 21-Aug-2014 9:13 nts, has good energy level and is sleeping well. Patient has been compliant with instructions. Current medication use: no side effects and compliant with dosing regimen. Patient sleeps 7 hours per night . Nutrition: balanced diet and supplemental vitamins. The medical issues the patient is following up for include All identified problems below, blood sugar issues, high blood pressure and high cholesterol. weight :. Encounter Diagnosis: Type II Diabetes,controlled (250.00), Vitamin D deficiency, Hyperlipidemia (272.4), Gerd (530.81) [facility] Office Visit On: 07-Jul-2014 14:46 Encounter Reason: Cough - The onset of the cough has been sudden. The cough is characterized as productive of mucoid sputum. The amount of sputum produced is scanty. The cough occurs all the time. The symptoms have been End: 07-Jul-2014 15:17 associated with fever and hoarseness, while the symptoms have not been associated with runny nose or wheezing. the color of the sputum is clear and yellowish.Encounter Diagnosis: SINUSITIS, ACUTE NOS (461.9), Eustachian tube dysfunction [facility] Office Visit On: 08-May-2014 8:17 Encounter Reason: Follow up tests - Date: (05/01/14 labs)., [ADDITIONAL REASON] Follow up for chronic medical issues - The patient feels well with minor complai End: 08-May-2014 9:29 nts, has good energy level and is sleeping well. Patient has been compliant with instructions. Current medication use: no side effects and compliant with dosing regimen. Patient sleeps 9 hours per night . Nutrition: balanced diet and supplemental vitamins. The medical issues the patient is following up for include All identified problems below, blood sugar issues, high blood pressure and high cholester ol. blood pressure range :, fasting blood sugars : and weight :. Encounter Diagnosis: Psoriatic arthritis, Gerd (530.81), Hyperlipidemia (272.4), Type II Diabetes,controlled (250.00), Vitamin D deficiency [facility] Annotation/Addendum On: 24-Feb-2014 10:16 Encounter Diagnosis: Unspecified Diagnosis End: 24-Feb-2014 10:20 [facility] Office Visit On: 24-Feb-2014 9:54 Encounter Reason: Sinusitis/ - The duration of the symptoms are 1 week The course has been worsening. The sinusitis/ has no relieving factors. Associated features include The symptoms have been associated with cough, ear End: 24-Feb-2014 10:15 pain, nasal discharge/stuffy nose, sinus pain, sore throat and teeth pain. No previous evaluations were reported.Encounter Diagnosis: ACUTE PHARYNGITIS (462.), Cough (786.2), Ear pain, Sinus infection (473.9) [facility] Office Visit On: 18-Dec-2013 6:55 Encounter Reason: Follow up for chronic medical issues - The patient is sleeping well. Patient has been compliant with instructions. Current medication use: no side effects. Patient sleeps 9 hours per night. Impact of di End: 19-Dec-2013 11:20 sease: no overall impact. Nutrition: balanced diet. The medical issues the patient is following up for include All identified problems below, high blood pressure and high cholesterol.Encounter Diagnosis: Need for prophylactic vaccination and inoculation against influenza (V04.81), Type II Diabetes,controlled (250.00), Hyperlipidemia (272.4), Gerd (530.81), Psoriatic arthritis [facility] Office Visit On: 26-Nov-2013 8:13 Encounter Reason: UTI - The urinary symptoms are described as frequency, hesitancy and flank pain. The symptoms have been occurring for 1 week and have been increasing. The urine is described as clear. The symptoms have End: 26-Nov-2013 9:35 been associated with low back pain. The patient has been using pyridium/uristat.Encounter Diagnosis: UTI (urinary tract infection), Cystitis,Acute (595.0) [facility] Annotation/Addendum On: 10-Oct-2013 12:44 Encounter Diagnosis: Streptococcus G End: 10-Oct-2013 14:46 [facility] Annotation/Addendum On: 06-Oct-2013 10:22 Encounter Diagnosis: Cerumen impaction (380.4) End: 06-Oct-2013 10:39 [facility] Office Visit On: 06-Oct-2013 9:06 Encounter Reason: Sore Throat - Symptoms include sore throat and postnasal drainage. The symptoms are symmetrical. The pain radiates to the left ear and right ear. Onset was 5 day(s) ago. Associated symptoms include head End: 06-Oct-2013 9:48 ache, ear pain and cough. Current treatment includes antihistamines and corticosteroids (prednisone).Encounter Diagnosis: ACUTE PHARYNGITIS (462.), ALLERGIC RHINITIS DUE TO OTHER ALLERGEN, Cerumen impaction (380.4) [facility] Visit On: 24-Sep-2013 9:44 Encounter Diagnosis: Unspecified Diagnosis, Hyperlipidemia (272.4) End: 24-Sep-2013 9:48 [facility] Visit On: 19-Sep-2013 7:20 Encounter Reason: Follow up for chronic medical issues - The patient feels well with minor complaints, has good energy level and is sleeping well. Patient has been compliant with instructions. Current medication use: no End: 19-Sep-2013 8:13 side effects and compliant with dosing regimen. Patient sleeps 9 hours per night. Nutrition: balanced diet and supplemental vitamins. The medical issues the patient is following up for include All ident ified problems below, blood sugar issues, high blood pressure, high cholesterol and other. weight :.Encounter Diagnosis: Psoriatic arthritis, Anxiety (300.00), Hyperlipidemia (272.4), Type II Diabetes,controlled (250.00), Osteoarthritis- Generalized or Localized, Involving Unspecified Site (715.90), Gerd (530.81) [facility] Office Visit On: 20-Jun-2013 7:08 Encounter Reason: Follow up for chronic medical issues - The patient feels well with minor complaints, has good energy level and is sleeping well. Patient has been compliant with instructions. Current medication use: no End: 20-Jun-2013 11:59 side effects and compliant with dosing regimen. Patient sleeps 9 hours per night. Nutrition: balanced diet and supplemental vitamins. The medical issues the patient is following up for include All ident ified problems below, blood sugar issues, high blood pressure, high cholesterol and other. weight :.Encounter Diagnosis: Hyperlipidemia (272.4), Gerd (530.81), Type II Diabetes,controlled (250.00) [facility] Visit On: 28-Mar-2013 7:11 Encounter Reason: Follow up hospital - Reason for ER visit: note: (chest pain). The patient feels well with minor complaints, has good energy level and is sleeping well. Patient has been compliant with instructions. Curr End: 28-Mar-2013 7:57 ent medication use: no side effects and compliant with dosing regimen. Patient sleeps 7 hours per night. Nutrition: balanced diet.Encounter Diagnosis: Chest pain [facility] Office Visit On: 17-Feb-2013 9:21 Encounter Reason: Cough - Symptoms include cough and runny nose. The cough is described as barky and productive (green mucus). Cough onset was day(s) ago. Symptoms are described as worsening. Associated symptoms include End: 17-Feb-2013 9:50 postnasal drainage, while associated symptoms do not include headache. Current treatment includes nonsteroidal anti-inflammatory drugs, antihistamines and opioid cough medications.Encounter Diagnosis: Cough (786.2), BRONCHITIS, NOT SPECIFIED ACUTE OR CHRONIC (490.), Sinus infection (473.9), Wheezing (786.07) [facility] Office Visit On: 16-Jan-2013 8:02 Encounter Reason: Follow up for chronic medical issues - The patient feels well with minor complaints (arthritis pain), has good energy level and is sleeping well. Patient has been compliant with instructions. Current me End: 16-Jan-2013 9:27 dication use: no side effects and compliant with dosing regimen. Patient sleeps 9 hours per night. Nutrition: balanced diet and supplemental vitamins. The medical issues the patient is following up for include All identified problems below, blood sugar issues, depression (anxiety) and high cholesterol. fasting blood sugars :.Encounter Diagnosis: Need for prophylactic vaccination and inoculation against influenza (V04.81), POLYARTHROPATHY, INFLAMMATORY NOS (714.9), Gerd (530.81), Hyperlipidemia (272.4), Fullness of abdomen (789.9), Type II Diabetes,controlled (250.00) [facility] Visit On: 28-Oct-2012 13:03 Encounter Reason: Cough - Symptoms include cough, wheezing, fever and stuffy nose. The cough is described as barky, loose and productive (brown mucus). Cough onset was day(s) ago. The cough occurs constantly. Symptoms ar End: 28-Oct-2012 13:31 e described as unchanged. Associated symptoms include postnasal drainage and headache. Current treatment includes nonsteroidal anti-inflammatory drugs, antihistamines and decongestants.Encounter Diagnosis: Cough (786.2), BRONCHITIS, NOT SPECIFIED ACUTE OR CHRONIC (490.) [facility] Visit On: 05-Sep-2012 6:53 Encounter Reason: Follow up tests - Date: (08/30/12 labs)., [ADDITIONAL REASON] Follow up for chronic medical issues - The patient feels well with minor complai End: 05-Sep-2012 8:11 nts, has good energy level and is sleeping well. Patient has been compliant with instructions. Current medication use: compliant with dosing regimen. Patient sleeps 9 hours per night. Nutrition: balance d diet and supplemental vitamins. The medical issues the patient is following up for include All identified problems below, blood sugar issues, high blood pressure and high cholesterol. blood pressure range :, fasting blood sugars : and weight :. Encounter Diagnosis: Hyperlipidemia (272.4), Rosacea (695.3), Osteoarthritis- Generalized or Localized, Involving Unspecified Site (715.90), Type II Diabetes,controlled (250.00), Headache,Migraine (346.00), Abnormal glucose tolerance test (790.22), POLYARTHROPATHY, INFLAMMATORY NOS (714.9) [facility] Phone Encounter On: 30-Aug-2012 7:09 Encounter Diagnosis: Hyperlipidemia (272.4) End: 30-Aug-2012 7:11 [facility] Visit On: 24-May-2012 10:06 Encounter Reason: Follow up for chronic medical issues - The patient feels well with minor complaints, has good energy level and is sleeping well. Patient has been compliant with instructions. Current medication use: no End: 24-May-2012 10:33 side effects and compliant with dosing regimen. Patient sleeps 7 hours per night. Nutrition: balanced diet and supplemental vitamins. The medical issues the patient is following up for include All ident ified problems below, blood sugar issues, high blood pressure and high cholesterol. blood pressure range :, fasting blood sugars : and weight :.Encounter Diagnosis: Diabetes type II,uncontrolled, no comp (250.02), Hyperlipidemia (272.4), Degenerative Disc Disease - Lumbar (722.52) [facility] Visit On: 11-Jan-2012 10:14 Encounter Reason: Cough - The last clinic visit was 1 day(s) ago (but st x 1 week). No changes in management were made at the last visit. Symptoms include cough, fever and sore throat. The cough is described as loose and End: 11-Jan-2012 11:10 productive (beige). Cough onset was sudden. There is no known event that preceded symptom onset. The cough occurs constantly. Symptoms are described as moderate in severity and worsening. Symptoms are exacerbated by lying down. Current treatment includes antihistamines.Encounter Diagnosis: Cough (786.2), BRONCHITIS, NOT SPECIFIED ACUTE OR CHRONIC (490.) [facility] Visit On: 01-Dec-2011 7:21 Encounter Reason: Follow up for chronic medical issues - The patient feels well with minor complaints, has good energy level and is sleeping well. Patient has been compliant with instructions. Current medication use: no End: 01-Dec-2011 8:00 side effects and compliant with dosing regimen. Patient sleeps 7 hours per night. Nutrition: balanced diet and supplemental vitamins. The medical issues the patient is following up for include All ident ified problems below, high blood pressure and high cholesterol. fasting blood sugars : and weight :.Encounter Diagnosis: Type II Diabetes,controlled (250.00), Anxiety (300.00), Gerd (530.81), BRONCHITIS, NOT SPECIFIED ACUTE OR CHRONIC (490.), Abnormal glucose tolerance test (790.22), Hyperlipidemia (272.4), POLYARTHROPATHY, INFLAMMATORY NOS (714.9), Rosacea (695.3) [facility] Office Visit On: 08-Sep-2011 8:40 Encounter Reason: Follow up tests - Date: (09/01/11 labs)., [ADDITIONAL REASON] Follow up for chronic medical issues - The patient feels well with minor complai End: 08-Sep-2011 12:38 nts, has good energy level and is sleeping well. Patient has been compliant with instructions. Current medication use: no side effects and compliant with dosing regimen. Patient sleeps 8 hours per night . Nutrition: balanced diet and supplemental vitamins. The medical issues the patient is following up for include All identified problems below, blood sugar issues, high blood pressure and high cholester ol. blood pressure range :, fasting blood sugars : and weight :. Encounter Diagnosis: Hyperlipidemia (272.4), Gerd (530.81), Anxiety (300.00), Diabetes type II,uncontrolled, no comp (250.02) [facility] Lab Order On: 01-Sep-2011 8:34 Encounter Diagnosis: Type II Diabetes,controlled (250.00) End: 01-Sep-2011 8:41 [facility] Office Visit On: 05-Jun-2011 8:05 Encounter Reason: Follow up for chronic medical issues - The patient feels well with minor complaints, has good energy level and is sleeping well. Patient has been compliant with instructions. Current medication use: no End: 05-Jun-2011 9:23 side effects and compliant with dosing regimen. Patient sleeps 7 hours per night. Nutrition: balanced diet and supplemental vitamins. The medical issues the patient is following up for include All ident ified problems below, blood sugar issues, depression, gastric reflux and osteoarthritis. blood pressure range :, fasting blood sugars : and weight :.Encounter Diagnosis: Type II Diabetes,controlled (250.00), Hyperlipidemia (272.4), Osteoarthritis- Generalized or Localized, Involving Unspecified Site (715.90), Anxiety (300.00), RINGWORM, NOS (110.9), Headache,Migraine (346.00), Gerd (530.81) [facility] Office Visit On: 17-Mar-2011 8:36 Encounter Reason: Follow up for chronic medical issues - The patient feels well with minor complaints, has good energy level and is sleeping well. Patient has been compliant with instructions. Current medication use: no End: 17-Mar-2011 15:48 side effects and compliant with dosing regimen. Patient sleeps 7 hours per night. Nutrition: balanced diet and supplemental vitamins. The medical issues the patient is following up for include All ident ified problems below, blood sugar issues, high blood pressure and high cholesterol. fasting blood sugars : and weight :., [ADDITIONAL REASON] Follow up tests - Date: (03/14/11 labs). Encounter Diagnosis: Type II Diabetes,controlled (250.00), Hyperlipidemia (272.4), Headache,Migraine (346.00), Anxiety (300.00), Low back pain (724.2), Gerd (530.81), RINGWORM, NOS (110.9), LOW BACK PAIN WITH RADICULOPATHY (724.4) [facility] Phone Encounter On: 27-Feb-2011 17:28 Encounter Diagnosis: Headache,Migraine (346.00) End: 27-Feb-2011 17:29 [facility] Office Visit On: 22-Dec-2010 11:48 Encounter Reason: Back pain - The pain has been occurring in a persistent pattern for 2 weeks. The pain is described as being located in the lower back. The pain radiates to the right thigh and left thigh. The symptoms a End: 22-Dec-2010 12:23 re relieved by anti-inflammatory use (50mg canine ultram, 1 tid).Encounter Diagnosis: LOW BACK PAIN WITH RADICULOPATHY (724.4), Degenerative Disc Disease - Lumbar (722.52) [facility] Office Visit On: 09-Dec-2010 7:20 Encounter Reason: Follow up for chronic medical issues - The patient feels well with minor complaints, has good energy level and is sleeping well. Patient has been compliant with instructions. Current medication use: no End: 09-Dec-2010 9:50 side effects and compliant with dosing regimen. Patient sleeps 6 hours per night. Nutrition: balanced diet and supplemental vitamins. The medical issues the patient is following up for include All ident ified problems below, blood sugar issues, high blood pressure and high cholesterol. blood pressure range : and weight :., [ADDITIONAL REASON] Follow up, Laboratory Test Results - Date: (12.02.10). Encounter Diagnosis: Need for prophylactic vaccination and inoculation against influenza (V04.81), Type II Diabetes,controlled (250.00), Anxiety (300.00), Hyperlipidemia (272.4), Osteoarthritis- Generalized or Localized, Involving Unspecified Site (715.90) [facility] Phone Encounter On: 01-Dec-2010 12:54 Encounter Diagnosis: Type II Diabetes,controlled (250.00), Hyperlipidemia (272.4) End: 01-Dec-2010 12:56 [facility] Office Visit On: 29-Apr-2010 7:22 Encounter Reason: Follow up for chronic medical issues - The patient feels well with minor complaints, has good energy level and is sleeping well. Patient has been compliant with instructions. Current medication use: no End: 29-Apr-2010 12:59 side effects and compliant with dosing regimen. Patient sleeps 6 hours per night. Nutrition: balanced diet and supplemental vitamins. The medical issues the patient is following up for include All ident ified problems below, blood sugar issues, high blood pressure and high cholesterol. blood pressure range : and weight :., [ADDITIONAL REASON] Follow up, Laboratory Test Results - Date: (03/25/10). Encounter Diagnosis: Anxiety (300.00), Abnormal glucose tolerance test (790.22), Gerd (530.81), Hyperlipidemia (272.4) [facility] Phone Encounter On: 19-Jan-2010 16:31 Encounter Diagnosis: Anxiety (300.00) End: 19-Jan-2010 16:32 [facility] Office Visit On: 03-Jan-2010 13:46 Encounter Reason: Cough - The onset of the cough has been sudden and has been occurring in a persistent pattern for 3 days. The course has been constant. The cough is characterized as productive of mucoid sputum. The shannan End: 03-Jan-2010 14:12 unt of sputum produced is scanty. The cough occurs all the time. The symptoms are aggravated by supine posture and particular position, but not by meals. The symptoms have been associated with fever, he adache, hoarseness, runny nose and sore throat, while the symptoms have not been associated with wheezing.Encounter Diagnosis: BRONCHITIS, NOT SPECIFIED ACUTE OR CHRONIC (490.) [facility] Office Visit On: 24-Aug-2009 6:49 Encounter Reason: Follow up for chronic medical issues - The patient feels well with minor complaints ,has good energy level and is sleeping well. Patient has been compliant with instructions. Current medication use: no End: 24-Aug-2009 7:56 side effects and compliant with dosing regimen. Patient sleeps 7 hours per night. Nutrition: balanced diet and supplemental vitamins. The medical issues the patient is following up for include All ident ified problems below ,blood sugar issues ,high blood pressure and high cholesterol. fasting blood sugars : and weight :. Encounter Diagnosis: Type II Diabetes,controlled (250.00), Hyperlipidemia (272.4), Gerd (530.81), Anxiety (300.00) [facility] Phone Encounter On: 31-May-2009 12:15 [facility] End: 31-May-2009 12:16 Phone Encounter On: 28-May-2009 14:57 [facility] End: 28-May-2009 14:59 Office Visit On: 19-May-2009 9:17 Encounter Reason: Sinusitis/ - The duration of the symptoms are 4 days The course has been gradually worsening. The sinusitis/ has no relieving factors. Associated features include The symptoms have been associated with End: 19-May-2009 9:38 cough ,ear pain ,nasal discharge/stuffy nose and sinus pain. Encounter Diagnosis: BRONCHITIS, NOT SPECIFIED ACUTE OR CHRONIC (490.), Wheezing (786.07), Cough (786.2) [facility] Office Visit On: 13-May-2009 7:17 Encounter Reason: Follow up for chronic medical issues - The patient feels well with minor complaints (except for legy heel and went to foot doc) ,has good energy level and is sleeping well. Patient has been compliant wi End: 13-May-2009 8:31 th instructions. Current medication use: no side effects and compliant with dosing regimen. Patient sleeps 7 hours per night. Nutrition: balanced diet and supplemental vitamins. The medical issues the p atient is following up for include All identified problems below ,blood sugar issues ,high blood pressure and high cholesterol. weight :. Encounter Diagnosis: Type II Diabetes,controlled (250.00), Hyperlipidemia (272.4), Gerd (530.81), Headache,Migraine (346.00), Anxiety (300.00), DISORDER, MENOPAUSAL NOS (627.9) [facility] Office Visit On: 18-Dec-2008 7:20 Encounter Reason: Follow up for chronic medical issues - The patient feels well with minor complaints ,has good energy level and is sleeping well. Patient has been compliant with instructions. Current medication use: exp End: 18-Dec-2008 9:04 eriencing side effects (IMITRX PRN ACTS UP WITH HER ARTHRITIS) and compliant with dosing regimen. Patient sleeps 6 hours per night. Nutrition: balanced diet and supplemental vitamins. The medical issues the patient is following up for include All identified problems below ,blood sugar issues ,high blood pressure and high cholesterol. weight :. Encounter Diagnosis: Type II Diabetes,controlled (250.00), Hyperlipidemia (272.4), Hormonal Imbalance (259.9), Headache,Migraine (346.00), Gerd (530.81), arthritis,unspecified (716.90), Yeast Infection: Candidiasis of Unspecified Site (112.9) [facility] Office Visit On: 04-Dec-2008 7:58 Encounter Reason: Injections - The medication the patient is here to receive is other (1 cc kenalog 2cc marcaine right knee ). Encounter Diagnosis: Knee pain (719.46) End: 04-Dec-2008 13:17 [facility] Office Visit On: 26-Jun-2008 6:59 Encounter Reason: Follow up for chronic medical issues - The patient feels well with minor complaints ,has good energy level and is sleeping well. Patient has been compliant with instructions. Current medication use: no End: 26-Jun-2008 7:57 side effects and compliant with dosing regimen. Patient sleeps 7 hours per night. Nutrition: balanced diet and supplemental vitamins. The medical issues the patient is following up for include All ident ified problems below ,blood sugar issues ,high blood pressure and high cholesterol. blood pressure range : and weight :. Encounter Diagnosis: Type II Diabetes,controlled (250.00), Hyperlipidemia (272.4), Gerd (530.81), arthritis,unspecified (716.90) , Anxiety (300.00) [facility] Office Visit On: 04-May-2008 14:00 Encounter Reason: Sinusitis/ - The duration of the symptoms are 1 week The course has been gradually worsening. The sinusitis/ has no relieving factors. Associated features include The symptoms have been associated with End: 04-May-2008 14:27 cough (dry) ,ear pain (left) ,nasal discharge/stuffy nose ,sinus pain and sore throat. No previous evaluations were reported. Encounter Diagnosis: Acute sinusitis, unspecified (461.9) [facility] Office Visit On: 26-Mar-2008 11:21 Encounter Reason: Follow up for chronic medical issues - The patient feels well with minor complaints ,has good energy level and is sleeping well. Patient has been compliant with instructions. Current medication use: no End: 26-Mar-2008 12:10 side effects and compliant with dosing regimen. Patient sleeps 6 hours per night. Nutrition: balanced diet and supplemental vitamins. The medical issues the patient is following up for include All ident ified problems below ,blood sugar issues ,high blood pressure and high cholesterol. Encounter Diagnosis: Type II Diabetes,controlled (250.00), Hyperlipidemia (272.4), Gerd (530.81), Anxiety (300.00), Seborrheic dermatitis, unspecified (690.10) [facility] Office Visit On: 04-Feb-2008 13:31 Encounter Diagnosis: Cough (786.2) End: 04-Feb-2008 16:14 [facility] Office Visit On: 04-Feb-2008 13:09 Encounter Reason: Sore throat - The onset of the sore throat has been acute and has been occurring in a persistent pattern for 1 days. The course has been worsening. The symptoms have been associated with cough ,post-jaycee End: 04-Feb-2008 13:31 al drip ,recent contact with a person with sore throat () ,sinus pain and swelling of neck glands (LEFT), while the symptoms have not been associated with chills. Encounter Diagnosis: ACUTE PHARYNGITIS (462.), BRONCHITIS, NOT SPECIFIED ACUTE OR CHRONIC (490.), Cough (786.2) [facility] Office Visit On: 04-Oct-2007 6:56 Encounter Reason: Follow up for chronic medical issues - The patient feels well with minor complaints ,has decreased energy level and is sleeping well. Patient has been compliant with instructions. Current medication use End: 04-Oct-2007 7:54 : no side effects and compliant with dosing regimen. Patient sleeps 7 hours per night. Nutrition: balanced diet and supplemental vitamins. The medical issues the patient is following up for include All identified problems below ,blood sugar issues ,high blood pressure and high cholesterol. Encounter Diagnosis: Type II Diabetes,controlled (250.00), Hyperlipidemia (272.4), Gerd (530.81), Headache (784.0), Sebaceous cyst (706.2) [facility] Office Visit On: 08-Aug-2007 13:11 Encounter Reason: Back pain - The onset of the pain has been gradual and has been occurring in a persistent pattern for 2 weeks. The course has been increasing. The pain is characterized as a dull ache and shooting. The End: 08-Aug-2007 14:08 pain is described as being located in the lower back. The pain radiates to the lateral aspect of left leg. The symptoms have no aggravating factors. The symptoms have no relieving factors. Encounter Diagnosis: LOW BACK PAIN WITH RADICULOPATHY (724.4) [facility] Office Visit On: 31-May-2007 7:06 Encounter Reason: Follow up for chronic medical issues - The patient feels well with minor complaints ,has good energy level and is sleeping well. Patient has been compliant with instructions. Current medication use: no End: 31-May-2007 8:49 side effects and compliant with dosing regimen. Patient sleeps 7 hours per night. Nutrition: balanced diet and supplemental vitamins. The medical issues the patient is following up for include All ident ified problems below ,blood sugar issues ,high blood pressure and high cholesterol. Encounter Diagnosis: Abnormal glucose tolerance test (790.22), Hyperlipidemia (272.4), Gerd (530.81), Tinea Cruris (110.3), Hypocalcemia (275.41) [facility] Office Visit On: 27-May-2007 16:34 Encounter Reason: Dysuria - The onset of the dysuria has been acute and has been occurring in a persistent pattern for 2 days. The course has been increasing. The dysuria is described as moderate. The quality of the pain End: 27-May-2007 17:01 is described as a dull ache The dysuria is described as being located in the suprapubic area. The dysuria does not radiate. The symptoms have been associated with urgency. Encounter Diagnosis: DYSURIA, NOS (788.1), Cystitis,Acute (595.0) [facility] Office Visit On: 08-Mar-2007 7:23 Encounter Reason: Follow up for chronic medical issues - The patient feels well with minor complaints ,has good energy level and is sleeping well. Patient has been compliant with instructions. Current medication use: no End: 08-Mar-2007 8:31 side effects and compliant with dosing regimen. Patient sleeps 7 hours per night. Nutrition: balanced diet and supplemental vitamins. The medical issues the patient is following up for include All ident ified problems below ,blood sugar issues and gastric reflux. Encounter Diagnosis: Type II Diabetes,controlled (250.00), Hyperlipidemia (272.4), Gerd (530.81) [facility] Office Visit On: 01-Jan-2007 11:16 Encounter Reason: Sore throat - The onset of the sore throat has been sudden and has been occurring in an intermittent pattern for 3 weeks. The course has been worsening. The symptoms have been associated with foreign alma End: 01-Jan-2007 12:15 dy sensation in throat ,change in voice ,cough ,difficulty in swallowing ,ear pain ,fever ,runny nose and swelling of neck glands. Encounter Diagnosis: SYMPTOMS INVOLVING HEAD AND NECK; THROAT PAIN (784.1), Acute sinusitis, unspecified (461.9), Cerumen impaction (380.4) [facility] Office Visit On: 12-Nov-2006 9:06 Encounter Reason: Follow up for chronic medical issues - The patient feels well with no complaints ,has good energy level and is sleeping well. Patient has been compliant with instructions. Current medication use: no emerald End: 12-Nov-2006 10:02 e effects and compliant with dosing regimen. Patient sleeps 7 hours per night. Nutrition: balanced diet and supplemental vitamins. The medical issues the patient is following up for include All identifi ed problems below ,blood sugar issues and high cholesterol. Encounter Diagnosis: Type II Diabetes,controlled (250.00), Hyperlipidemia (272.4), Gerd (530.81) [facility] Office Visit On: 03-Aug-2006 7:35 Encounter Reason: Follow up, Laboratory Test Results - Lab results: other (abnormal glu. keisha test ). Date: (07-23-06). Current symptoms/reason for visit include/s Follow up visit with no current symptoms. Past medical his End: 03-Aug-2006 12:26 tory includes other (migraine, obesity ). Encounter Diagnosis: Type II Diabetes,controlled (250.00), Hyperlipidemia (272.4), arthritis,unspecified (716.90), Tinea Cruris (110.3) [facility] Office Visit On: 28-May-2006 16:22 Encounter Reason: new patient female physical - Last seen more than 1 year ago. General health: feels well with minor complaints (mygraine) ,has good energy level and is sleeping well. The patient's appetite is normal. N End: 28-May-2006 17:18 utrition: normal/adequate. Exercises 3 (walking) days per week. Sleeps on average 8 hours per night. Normal bowel and bladder habits. There are no current emotional problems. screening, colonoscopy ( 2 ) ,screening, mammography (2006) and screening, visual acuity (2004 [facility]). Encounter Diagnosis: Gerd (530.81), Headache, tension (307.81), Headache,Migraine (346.00), Family history of diabetes mellitus (V18.0) [facility] Payers Jessie MACE/Mela Rodriguez; a guarantor
--- OUTSIDE RECORDS SUMMARY | 2018-05-05 21:04 | XMS RPT_ITS | Continuity of Care Document ---
:1955 Author Organization [facility] Address [address] [place] [address] Phone Care Team Providers Name Role Phone [...] qd (1 MG) Active CALCIUM + D, [id number] (Oral Tablet) 1 bid for 0 days Refills: 0 Ordered:18-Dec-2008 Karla Santana Fiorinal 50-325-40 MG Oral Capsule 1 Capsule q 6 hr prn for 0 days Quantity: 30 {Capsule} Refills: 0 Ordered:18-Jan-2018 Roby Jones DO, DO, Kathleen Start : 18-Jan-2018 Active Comments:lmlqibI04.109C50.912 FreeStyle Lite Test In Vitro Strip 1 [...] Release 1 (one) Capsule DR qd for 0 days Quantity: 30 {Capsule} Refills: 3 Ordered:14-Jan-2018 Roby Jones DO, DO, Kathleen Start : 14-Jan-2018 Active Ondansetron HCl 8 MG Oral Tablet prn (8 MG) Active Pen [place] 31G X 5 MM Miscellaneous 1 (one) [...] QD for 0 days Refills: 0 Ordered:28-May-2006 NORM Chávez Start : 28-May-2006 End : 03-Aug-2006 [...] Department Summary Result: Comments: See Note; NOTES: [facility] Medical Records Department [address] [place] [address] Emergency Department Summary 01/18/18 2137 MR#: [id number] Acct: [id number] Name: JESSICA RODRIGUEZ Rep #: [id number] : 1955 62 From: Ritchie Mota MD [...] chest cellulitis This note was generated with [employer] dictation software. It may contain incorrect words, [...] your Primary Care Provider. Call [facility] ([phone]) or report to the closest Emergency Room. Call 911 if necessar y. 01/19/18 0029 <Electronically signed by Ritchie Mota MD> Date Ritchie Mota MD Cosigner Signature (If Indicated): Date CC: Ruth Jones DO 27-May-2017 Operative Report Result: Comments: See Note; NOTES: [facility] Medical Records Department [address] [place] [address] Operative Report 05/24/17 0900 MR#: [id number] Acct: [id number] Name: JIMENEZ RODRIGUEZ Rep #: [id number] : 1955 62 From: Hodan Chong MD PCP: Ruth Jones DO Status: DEP [facility] Y Location: [facility] Report of Operation Date of Procedure: 05/24/17 Pre-Operative Diagnosis: history of left breast cancer, left axillary bulky adenopathy, left mastectomy dog ear Post-Operative Diagnosis: same as above Surgery/Procedure Performed:: Left axillary lymphadenectomy, revision of left maste ctomy dog ear Description of Surgical Findings:: bulky adenopathy of left axilla, left mastectomy lateral dog ear billet checker: Alma Swan Type of Anesthesia:: General Anesthesiologist: [...] Discharge Instruction Result: Comments: See Note; NOTES: [facility] Medical Records Department [address] [place] [address] Instructions for Home/Discharge Instructions 05/24/17902 MR#: [id number] Acct: [id number] Name: JESSICA RODRIGUEZ Rep #: [id number] : 1955 62 From: Hodan Chong MD PCP: Ruth Jones DO Status: REG [facility] Discharge Diet: No Restrictions Discharge Activity: Return [...] Aspirin/Acetaminophen/Caffeine [Excedrin Migraine Caplet] 1 each PO OR N PRN 04/18/17 Calm Day 3 cap PO DAILY 04/18/17 Cholecalciferol (Vitamin D3) [Vitamin D3] 2,000 unit PO DAILY 04/18/17 Ibuprofen 400 mg PO PRN PRN 04/18/17 Melatonin [Melatin] 6 mg PO QHS 04/18/17 Metfo rmin HCl 500 mg PO BID 04/18/17 Calcium (Elemental) [Os-Huy 500] 1,000 mg PO DAILY 05/23/17 Hydrocodone Bitart/Apap 5-325 [Union 5MG-325MG] 1 tab PO Q6H PRN PRN #20 tab 05/24/17 The following prescrip tions were given: Hydrocodone Bitart/Apap 5-325 [Union 5MG-325MG] 1 tab PO Q6H PRN PRN [...] Operative Report Result: Comments: See Note; NOTES: [facility] Medical Records Department [address] [place] [address] Operative Report 04/20/17 1454 MR#: [id number] Acct: [id number] Name: JIMENEZ RODRIGUEZ Rep #: [id number] : 1955 62 From: Palmer Hawkins MD PCP: Ruth Jones DO Status: REG [facility] Y Location: [place] [address] Report of Operation Date of Procedure: 04/20/17 Pre-Operative Diagnosi s: left breast cancer Post-Operative Diagnosis: same Surgery/Procedure Performed:: right simple mastectomy billet checker: Brittny Mccullough Type of Anesthesia:: General Anesthesiologist: Trung [...] . The specimen was sent whole . [address] [place] [address]-Duarte drain were placed in the medial along [...] 2 Views Result: Comments: See Note; NOTES: [facility] Imaging Services [address] [place] [address] Shoulder min 2 Views MR#: [id number] Acct: [id number] Name: JESSICA RODRIGUEZ Rep #: [id number] : 1955 F 61 From: Perla Henderson MD PCP: Ruth Jnoes DO Status: REG CLI Study: Shoulder min 2 Views Date of Exam: 12/29/16 Exam# [id number] Ordering Dr: Natalia Otto MD STUDY: X-R [...] CC: Ruth Jones DO; Natalia Otto MD Mine Boss: Signed 26-Aug-2015 ELECTROCARDIOGRAM, COMPLETE (ECG) (05533) Comments: nsr no acute chg Result: [MEASUREMENTS ANALYSIS] Date of Test: 08/26/2015 07:49:01; Heart Rate: 62; OR Interval: 152; QRS: 88; QT Interval: 424; Corrected QT Interval (QTc): 427; P Wave [place]: 47; QRS Wave [place]: 61; T Wave [place]: 47; Blood Pressure: 130/70 [ECG DIAGNOSTIC STATEMENTS] Date of Test: 08/26/2015 07:49:01; Summary: Sinus Rhythm WITHIN NORMAL LIMITS 20-Aug-2013 Chest PA and Lateral Result: Comments: See Note; NOTES: [facility] Imaging Services [address] [place] [address] Radiology Report MR#: [id number] Acct: [id number] Name: JESSICA RODRIGUEZ Rep #: [id number] : 1955 F 58 From: Edilberto Patel MD PCP: Ruth Jonse DO Status: REG CLI Study: Chest PA and Lateral Date of Exam: 08/20/13 Exam# [id number] Ordering Dr: Natalia Otto MD STUDY: X-RAY [...] Edilberto Patel MD at 10:10 EDT Tel [phone], Service support [phone], Fax RAD/Chest PA and Lateral IMPRESSION: No acute abnormality is present. Electronically Signed: Edilberto Patel MD at 10:10 EDT Tel [phone], Service support [phone], CC: Ruth Jones DO; Natalia Otto MD Mine Boss: Signed 22-Jan-2013 Abdomen Complete Result: Comments: See Note; NOTES: [facility] Imaging Services [address] [place] [address] Ultrasound Report MR#: [id number] Acct: [id number] Name: JESSICA RODRIGUEZ Rep #: [id number] : 1955 F 57 From: Edilberto Patel MD PCP: Status: REG CLI Study: Abdomen Complete Date of Exam: 01/22/13 Exam# [id number] Ordering Dr: Ruth Jones DO STUDY: ABDOMINAL [...] M.D. at 10:28 EST , Service support [phone], CC: Ruth Jones DO Mine Boss: Signed Immunization Name Dates Details Tdap (7 years and up) on: 26-Jun-2008 Comments: Lot #: [id number] date: mount given:0.5 mlRoute: IMSite given: Right deltoidGiven by: Jonathan Woodruff LPN Family History Unknown Family Member Name Dates Details Father Comments: DM, Heart Dz, Cholestrol, arthlosclorsis Status: Active Maternal Grandmother Comments: BR CA Status: Active Social History Name Dates Details Alcohol Use Comments: Occasional alcohol use Status: Active Caffeine Use Comments: 2-4 QD Status: Active 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, [employer] Status: Active Exercise History Comments: Moderate, [...] kg/m2 Body Surface Area Calculated 1.84 m2 14-Zey-550453:30 Pulse 72 /min Comments: Pattern: Regular Respiration [...] Description Value Details :24 HgA1C , Office (20560) HgA1C , Office 5.9 % (Normal) Range: 4.6 - 7.1 69-Unz-652768:24 Blood Glucose , Office (09894) Blood Glucose , Office 132 (Normal) 19-Jan-20188:15 Lactic Acid Comments: Yes/No query for Sepsis Lactate Rule [facility] [address] [place], [id number] LACTIC ACID 1.2 mmol/L (Normal) Range: 0.4-2.0 9-Buo-896445:10 CBC W/Diff, Automated Comments: [facility] [address] [place], [id number] Absolute Lymph 0.73 {X10_3/ul} (Abnormal) Range: 0.83-4.51 [...] 4.2-5.4 WBC 12.4 K/mm3 (Abnormal) Range: 4.4-11.0 2-Fxg-088765:10 Comprehensive Metabolic Profil Comments: [facility] [address] [place], [address] GAP 7 (Normal) Range: 5-15 [...] A.D.A. criteria.Please note revised GLUCOSE reference range rhfweznxj14/02/2018. 0-Igz-958534:10 Lactic Acid Comments: Yes/No query for Sepsis Lactate Rule [facility] [address] [place], [place], [phone] LACTIC ACID 1.6 mmol/L (Normal) Range: 0.4-2.0 1-Xdg-291616:10 Partial Thromboplast Time Comments: [facility] [address] [place], [place], [address] PTT 26.9 s (Normal) Range: 24.1-36.2 6-Bjl-395115:10 Prothrombin Time w/INR Comments: [facility] [address] [place], [address] INR 1.0 (Normal) PROTIME 13.1 s (Normal) Range: 11.7-14.9 39-Vtg-58392:15 HgA1C , Office (14468) HgA1C , Office 5.6 % (Normal) Range: 4.6 - 7.1 :15 Blood Glucose , Office (64427) Blood Glucose , Office 135 (Normal) 73-Tgm-962662:17 Bedside Glucose Comments: [facility] [address] [place] [address] BEDSIDE GLU 126 mg/dL (Abnormal) Range: 70-110 Comments: MANAGEMENT OF PATIENT CARE PER NURSING PROTOCOL 24-May-2017 MISCELLANEOUS SPECIMEN See Note (Normal) Comments: [facility] [address] [place], [address] 7:30 Comments: Patient: JESSICA RODRIGUEZ : 1955 (62/F) Acct Num: [id number] Phys: Hodan Chong MD Unit Num: [id number] Loc: [facility] Specimen: [id number] Received: 05/24/17 - 1037 Spec Type: MIS [...] The lymph nodes are submitted in entirety. Sanitary Inspector sections are submitted as follows: 1 multiple [...] dog ear. No mass lesion is identified. Sanitary Inspector sections are submitted in four cassettes. / SJ:lilibeth 05/24/17 TC:0 CPT: 75643, 02092 HEADER OPERATION: Excision lymph node, axillary PRE-OP DIAGNOSIS: Left breast cancer, invasive ductal, ER/OR positive, HER2 negative, bulky adenopathy of left axilla TISSUE SUBMITTED: A Left axillary contents, B Dog ear MICROSCOPIC DESCRIPTION Slides are reviewed. A. The largest lymph node contains benign histiocytic proliferation, fibrosis and minimal chronic inflammation co nsistent with previous biopsy and resection ([id number]). Immunohistochemistry ([id number]) supports the presence of isolated metastatic tumor cells in one out of seven lymph nodes. MICROSCOPIC DIAGNO SIS A. Left axillary contents, regional lymphadenectomy: Isolated metastatic tumor cells in one of seven lymph nodes. B. Dog ear, excision: Skin with attached fibrofatty tissue with reactive and reparative change and suture granulomas. No evidence of malignancy. AM:lilibeth 05/28/17 Signed [facility] 05/30/17 <signature on file> 77-Fzn-82929:44 Bedside Glucose Comments: [facility] [address] [place], [place] [address] BEDSIDE GLU 178 mg/dL (Abnormal) Range: 70-110 Comments: MANAGEMENT OF PATIENT CARE PER NURSING PROTOCOL : IMMUNOHISTOCHEMISTRY See Note (Normal) Comments: [facility] [address] [place], [place], [id number] 00 Comments: Patient: JESSICA RODRIGUEZ : 1955 (62/F) Acct Num: [id number] Phys: Hodan Chong MD Unit Num: [id number] Loc: [facility] Specimen: [id number] Received: 05/28/171425 Spec Type: IMM JOSELO TISSUES TISSUES: A. Axilla, NOS SPECIMEN INFORMATION: Tissue Source: A Left axillary contents Clinical Info: Left breast cancer Specimen Number: [id number] A1, A2, A4, A5, A7 CPT code: 72998, 29626 x4 METHODOLOGY: Deparaffinized sections of prefer/formalin-fixed tissue [...] and their performance characteristics dete rmined by [facility]. They may not have been cleared or approved by the U.S. Food and Drug Administration. The FDA has determined that such clearance or approval is not nece ssary. INTERPRETATION: A. Left axillary contents: Isolated metastatic tumor cells present in one out of seven lymph nodes. AM:lilibeth 05/30/17 PHYSICIAN AND INSTITUTION [facility] [address] [place], [place] [address] Signed [facility] [place] 05/30/17 <signature on file> 2-Jai-999179:05 Bedside Glucose Comments: [facility] [address] [place] [address] BEDSIDE GLU 162 mg/dL (Abnormal) Range: 70-110 Comments: MANAGEMENT OF PATIENT CARE PER NURSING PROTOCOL :32 Bedside Glucose Comments: [facility] [address] [place] [address] BEDSIDE GLU 137 mg/dL (Abnormal) Range: 70-110 Comments: MANAGEMENT OF PATIENT CARE PER NURSING PROTOCOL 19-Apr-20179:17 Basic Metabolic Profile (BMP) Comments: [facility] [address] [place], [address] GAP 9 (Normal) Range: 5-15 [...] A.D.A. criteria.Please note revised GLUCOSE reference range /02/2018. 19-Apr-20179:17 CBC-Complete Blood Cnt No Diff Comments: [facility] [address] [place], [address] MPV 9.4 fL (Normal) Range: 6.2-12.0 [...] (Normal) Range: 4.4-11.0 19-Apr-20179:17 Hemoglobin A1c Comments: [facility] [address] [place], [place], [address] HGB A1C 6.3 % (Normal) Range: 4.2-6.3 BREAST BIOPSY (CHOOSE SITE) See Note (Normal) Comments: [facility] [address] [place], [place], [address] 813:15 Comments: Patient: JESSICA RODRIGUEZ : 1955 (62/F) Acct Num: [id number] Phys: Castillo MCMILLAN,Hodan Unit Num: [id number] Loc: [facility] Specimen: [id number] Received: 04/06/17 - 1201 Spec Type: BREAST BX TISSUES TISSUES: Left breast, NOS COMMENT Immunohistochemistry ([id number]) supports the above diagnosis. ER/OR/Erj1dqq studies are being performed on sections of tumor and the results from this study will be reported separately ([id number] [id number]). Please make reference to previous specimen ([id number]) left breast, core biopsy with diagnosis of fibrocystic change wi th associated microcalcifications. GROSS DESCRIPTION Received is one container labeled with the patient's name and not further designated. The specimen consists of multiple elongated fragments o f bagley-yellowfibroadipose tissue that in aggregate measure 3 x 2 x 0.1 cm. The entire specimen is submitted in one cassette. / DAI:lilibeth 04/06/17 TC:0 CPT: 17271 HEADER OPERATION: Ultrasound-guided left breast needle core [...] on file> IMMUNOHISTOCHEMISTRY See Note (Normal) Comments: [facility] [address] [place], [place], [address] 80:00 Comments: Patient: JESSICA RODRIGUEZ : 1955 (62/F) Acct Num: [id number] Phys: Hodan Chong MD Unit Num: [id number] Loc: [facility] Specimen: [id number] Received: 04/09/17 - 1250 Spec Type: IMMUNO TISSUES TISSUES: Left breast, NOS SPECIMEN INFORMATION: Tissue Source: Left breast needle core biopsy Clinical Info: Abnormal left mammogram/ultrasound [facility] Number: [id number] CPT code: 42575, 83738 x4, 14554 x3 METHODOLOGY: Deparaffinized sections of prefer/formalin-fixed tissue or PAP/DQ stained slides are incubated with monoclonal/polyclonal a ntibodies/oligonucleotide probes. Localization is made via biotin free immunoperoxidase method. Appropriate controls are performed and reacted as expected. Results on target cell population are indic ated in the following table: RESULTS: ANTIBODY / CLONE RESULT E-Cad (ECH-6) positive CK8 (66eczqI21) positive CK5-6 (D5 AND 1684) nega tive Ki-67 (30-9) positive, moderate P53 (DO-7) positive MORPHOMETRIC ANALYSIS ER (clone 6F11) >95% , strong OR (clone 16/1E2) variable, 0-11%, weak Her- 2Neu [...] recommended for all equivocal cases. Positivity/negativity for ER/OR is reported if > or < 1% of the tumor cells are immuno- reactive, respectively. The ASCO/C AP criteria is used for scoring. Reference: Journal of Clinical Oncology, 2013; 31:5557-8993 AND 2009; 16:8693-9498. Duration of fixation: 54.5 Hrs; Sample Adequate: Yes. These assays have not bee n validated on decalcified tissues. Results should beinterpreted with caution given the likelihood of false negativity on decalcifiedspecimens. These tests were developed and their performance amanda cteristics determined by [facility]. They may not have been cleared or approved by the U.S. Food and Drug Administration. The FDA has determined that such clearance or appro esequiel is not necessary. INTERPRETATION: Left breast, ultrasound-guided needle core biopsy: Invasive ductal carcinoma, nuclear grade 3. Positive for estrogen receptors (favorable prognostic indicator). Positive for progesterone receptors (favorable prognostic indicator). Negative for overexpression of YES2pxl. SJ:lilibeth 04/10/17 PHYSICIAN AND INSTITUTION [address] [address] Signed Ildefonso Skinner 04/10/17 <signature on file> COLON BIOPSY (CHOOSE SITE) See Note (Normal) Comments: [facility] [address] [place], [place], [address] 811:08 Comments: Patient: JESSICA RODRIGUEZ : 1955 (61/F) Acct Num: [id number] Phys: Yovani Mcduffie Unit Num: [id number] Loc: [facility] Specimen: [id number] Received: 03/01/17 1800 [...] one cassette. / SJ:lilibeth 03/02/17 TC:1 CPT: 76492 x2 HEADER OP ERATION: Colonoscopy with polypectomy [...] <signature on file> :14 Metabolic Panel, Basic (96693) Comments: PATIENT NOT FASTINGPERFORMED BY: [facility] HospitalBqqvsa9550 [facility] [id number] Calcium, Serum 9.2 mg/dL (Normal) Range: 8.7-10.3 [...] (Abnormal) Range: 65-99 :58 HgA1C , Office (32418) HgA1C , Office 6.8 % (Normal) Range: 4.6 - 7.1 68-Pgr-07594:58 Blood Glucose , Office (84595) Blood Glucose , Office 166 (Normal) :17 CBC W/Diff, Automated Comments: [facility] [address] [place], [place], [address] Absolute Lymph 1.78 {X10_3/ul} (Normal) Range: 0.83-4.51 [...] Range: 4.4-11.0 :17 Comprehensive Metabolic Profil Comments: [facility] [address] [place], [place], [address] GAP 7 (Normal) Range: 5-15 CO2 29.0 [...] per A.D.A. criteria. :11 HgA1C , Office (07113) HgA1C , Office 6.3 % (Normal) Range: 4.6 - 7.1 :11 Blood Glucose , Office (44079) Blood Glucose , Office 154 (Normal) 32-Fir-934662:56 CALCIFIDIOL (60512) VIT D 25 Comments: PATIENT WAS FASTINGPERFORMED BY: [facility] [facility] [id number] Vitamin D, 25-Hydroxy 28.4 ng/mL (Abnormal) Range: 30.0-100.0 Comments: Vitamin D deficiency has been defined by the [place] of[place]icine and an Endocrine Society practice guideline as alevel of serum 25-OH vitamin D less than 20 ng/mL (1,2).The Endocrine Society went on to further define vitamin Dinsufficiency as a level between 21 and 29 ng/mL (2).1. IOM ([place] of Medicine). 2010. Dietary reference intakes for calcium and D. [place]: The National AcademPassman Press.2. Sara MF, Johanna JOSEPH, Rosanna SOMMER, et al. Evaluation, treatment, and prevention of vitamin D deficiency: an Endocrine Society clinical practice guideline. JCEM. 2010; 96(7):1911-30. :56 TSH (04993) Comments: PATIENT WAS FASTINGPERFORMED BY: [facility] [place] [id number] TSH 0.824 {uIU/mL} (Normal) Range: 0.450-4.500 51-Srt-427222:56 MICROALBUMIN: CREATININE RATIO Comments: PATIENT WAS FASTINGPERFORMED BY: [facility] [place] [id number] (55879) AND (93294) Microalb/Creat Ratio 8.0 {mg/g_creat} (Normal) Range: 0.0-30.0 Microalbumin, Urine 8.3 ug/mL (Normal) Creatinine, Urine 103.7 mg/dL (Normal) :56 METABOLIC PANEL, COMPREHENSIVE Comments: PATIENT WAS FASTINGPERFORMED BY: [employer] Fat[address] [employer] [id number] (52088) ALT (SGPT) 14 [iU]/L (Normal) Range: 0-32 [...] Glucose, Serum 145 mg/dL (Abnormal) Range: 65-99 13-Sjd-831651:56 CBC W/AUTO DIFF WBC (94535) Comments: PATIENT WAS FASTINGPERFORMED BY: [facility] HospitalSwjgqg7504 [facility] [id number] Immature Grans (Abs) 0.0 {x10E3/uL} (Normal) Range: [...] {x10E3/uL} (Normal) Range: 3.4-10.8 :56 LIPID PANEL (02440) Comments: PATIENT WAS FASTINGPERFORMED BY: [facility] [id number] LDL/HDL Ratio 1.6 {ratio_units} (Normal) Range: 0.0-3.2 [...] (Normal) Range: 100-199 :27 HgA1C , Office (64399) HgA1C , Office 7.6 % (Abnormal) Range: 4.6 - 7.1 :27 Blood Glucose , Office (82029) Blood Glucose , Office 192 (Normal) 16-Vmv-196852:11 HgA1C , Office (69458) HgA1C , Office 6.8 % (Normal) Range: 4.6 - 7.1 :33 Microscopic Examination Comments: PATIENT WAS FASTINGPERFORMED BY: [facility] [id number] Bacteria Few (Normal) Mucus Threads Present (Normal) Epithelial Cells (non renal) 0-10 {/hpf} (Normal) Range: 0 - 10 RBC 3-10 {/hpf} (Abnormal) Range: 0 - 2 WBC 0-5 {/hpf} (Normal) Range: 0 - 5 :31 Throat Culture (05989) Comments: PATIENT NOT FASTINGPERFORMED BY: [facility] Hsjcfk9387 [facility] [id number] Information: SRC:TH Result 1 BETAGC (Abnormal) Comments: [...] report (Abnormal) :55 Influenza A&B Viral Culture (42898) :55 Rapid Flu (09838 x 2) Influenza A Ag negative (Normal) :43 Rapid Strep Test, Office (28931) Rapid Strep Test, Office Negative (Normal) :33 CALCIFIDIOL (21224) VIT D 25 Comments: PATIENT WAS FASTINGPERFORMED BY: [facility]CoSum[facility] HospitalYachdr2767 [facility] [id number] Vitamin D, 25-Hydroxy 30.8 ng/mL (Normal) Range: 30.0-100.0 Comments: Vitamin D deficiency has been defined by the [place] of[place]icine and an Endocrine Society practice guideline as alevel of serum 25-OH vitamin D less than 20 ng/mL (1,2).The Endocrine Society went on to further define vitamin Dinsufficiency as a level between 21 and 29 ng/mL (2).1. IOM ([place] of Medicine). 2010. Dietary reference intakes for calcium and D. [place]: The National Academies Press.2. Sara SHARMA, Johanna JOSEPH, Rosanna SOMMER, et al. Evaluation, treatment, and prevention of vitamin D deficiency: an Endocrine Society clinical practice guideline. JCEM. 2010; 96(7):1911-30. :33 TSH (75377) Comments: PATIENT WAS FASTINGPERFORMED BY: [facility]St[facility] HospitalVhflat6654 [facility] [id number] TSH 1.190 {uIU/mL} (Normal) Range: 0.450-4.500 :33 URINALYSIS, W/ MICRO (82919) Comments: PATIENT WAS FASTINGPERFORMED BY: [facility] Hospital6370 [facility] [id number] Microscopic Examination See below: (Normal) Comments: Microscopic was indicated and was performed. Nitrite, Urine Negative (Normal) Urobilinogen,Semi-Qn 0.2 mg/dL (Normal) Range: 0.2-1.0 Bilirubin Negative (Normal) Occult Blood 1+ (Abnormal) Ketones Negative (Normal) Glucose Negative (Normal) Protein Negative (Normal) WBC Esterase 1+ (Abnormal) Appearance Clear (Normal) Urine-Color Yellow (Normal) pH 6.5 (Normal) Range: 5.0-7.5 Specific Powell 1.020 (Normal) Range: 1.005-1.030 :33 MICROALBUMIN: CREATININE RATIO Comments: PATIENT WAS FASTINGPERFORMED BY: [facility]Ro[facility] HospitalNfybai5979 [facility] [id number] (78552) AND (62810) Microalb/Creat Ratio 7.7 {mg/g_creat} (Normal) Range: 0.0-30.0 Microalbumin, Urine 7.4 ug/mL (Normal) Creatinine, Urine 96.3 mg/dL (Normal) :33 METABOLIC PANEL, COMPREHENSIVE Comments: PATIENT WAS FASTINGPERFORMED BY: [facility]St[facility] HospitalUevydj4999 [facility] [id number] (02618) ALT (SGPT) 16 [iU]/L (Normal) Range: 0-32 [...] Glucose, Serum 167 mg/dL (Abnormal) Range: 65-99 67-Udi-01012:33 LIPID PANEL (52466) Comments: PATIENT WAS FASTINGPERFORMED BY: [facility] Ufotqb2331 [facility] [id number] LDL/HDL Ratio 2.0 {ratio_units} (Normal) Range: 0.0-3.2 [...] Range: 100-199 :33 CBC W/AUTO DIFF WBC (41668) Comments: PATIENT WAS FASTINGPERFORMED BY: [facility] Uhtrle1530 [facility] [id number] Immature Grans (Abs) 0.0 {x10E3/uL} (Normal) Range: [...] Range: 3.4-10.8 :06 Blood Glucose , Office (26029) Blood Glucose , Office 130 (Normal) :06 HgA1C , Office (77324) HgA1C , Office 6.3 % (Normal) Range: 4.6 - 7.1 :06 Rapid Strep Test, Office (67471) Rapid Strep Test, Office Negative (Normal) :48 HgA1C , Office (00901) HgA1C , Office 6.3 % (Normal) Range: 4.6 - 7.1 :48 Blood Glucose , Office (64104) Blood Glucose , Office 121 (Normal) :09 MICROALBUMIN: CREATININE RATIO Comments: PATIENT WAS FASTINGPERFORMED BY: [facility] [id number] (60795) AND (04574) Microalb/Creat Ratio 3.7 {mg/g_creat} (Normal) Range: 0.0-30.0 Microalbumin, Urine 3.3 ug/mL (Normal) Creatinine, Urine 88.7 mg/dL (Normal) :09 URINALYSIS (82345) Comments: PATIENT WAS FASTINGPERFORMED BY: Moz70 Meetingmix.comF[facility] [id number] Microscopic Examination MICNIP (Normal) Comments: Microscopic not indicated and not performed. Nitrite, Urine Negative (Normal) Urobilinogen,Semi-Qn 0.2 mg/dL (Normal) Range: 0.2-1.0 Bilirubin Negative (Normal) Occult Blood Negative (Normal) Ketones Negative (Normal) Glucose Negative (Normal) Protein Negative (Normal) WBC Esterase Negative (Normal) Appearance Clear (Normal) Urine-Color Yellow (Normal) pH 6.0 (Normal) Range: 5.0-7.5 Specific Powell 1.017 (Normal) Range: 1.005-1.030 :09 TSH (45569) Comments: PATIENT WAS FASTINGPERFORMED BY: [facility] [id number] TSH 1.390 {uIU/mL} (Normal) Range: 0.450-4.500 :09 CBC WITH MANUAL DIFF Comments: PATIENT WAS FASTINGPERFORMED BY: [facility] [id number] Information: [id number] (98175) Immature Grans (Abs) 0.0 {x10E3/uL} (Normal) Range: [...] Panel, Comprehensive Comments: PATIENT WAS FASTINGPERFORMED BY: [facility] [id number] (34508) ALT (SGPT) 16 [iU]/L (Normal) Range: 0-32 [...] mg/dL (Abnormal) Range: 65-99 20-Aug-20157:09 Lipid Panel (17542) Comments: PATIENT WAS FASTINGPERFORMED BY: LabCoSummit Oaks HospitalNnhuqm6177 [facility] [id number] LDL/HDL Ratio 2.0 {ratio_units} (Normal) Range: 0.0-3.2 [...] 187 mg/dL (Normal) Range: 100-199 :09 CALCIFEDIOL (12329) Comments: PATIENT WAS FASTINGPERFORMED BY: LabCoSummit Oaks HospitalGyxryw7170 [facility] [id number] Vitamin D, 25-Hydroxy 33.6 ng/mL (Normal) Range: 30.0-100.0 Comments: Vitamin D deficiency has been defined by the [place] of[place]icine and an Endocrine Society practice guideline as alevel of serum 25-OH vitamin D less than 20 ng/mL (1,2).The Endocrine Society went on to further define vitamin Dinsufficiency as a level between 21 and 29 ng/mL (2).1. IOM ([place] of Medicine). 2010. Dietary reference intakes for calcium and D. [place]: The National Academies Press.2. Sara MF, Johanna NC, Rosanna SOMMER, et al. Evaluation, treatment, and prevention of vitamin D deficiency: an Endocrine Society clinical practice guideline. JCEM. 2010; 96(7):1911-30. 5:15 HgA1C , Office (03673) HgA1C , Office 6.7 % (Normal) Range: 4.6 - 7.1 :15 Blood Glucose , Office (77395) Blood Glucose , Office 142 (Normal) :18 Microscopic Examination Comments: PATIENT WAS FASTINGPERFORMED BY: [facility] Jvivgp6016 [facility] [id number] Bacteria None seen (Normal) Mucus Threads Present (Normal) Epithelial Cells (non renal) 0-10 {/hpf} (Normal) Range: 0 - 10 RBC 0-2 {/hpf} (Normal) Range: 0 - 2 WBC 0-5 {/hpf} (Normal) Range: 0 - 5 9-Gto-059795:01 CBC W/Diff, Automated Comments: [facility] [address] [place], [address] Absolute Lymph 1.22 {X10_3/ul} (Normal) [...] 4.2-5.4 WBC 8.8 K/mm3 (Normal) Range: 4.4-11.0 4-Uub-905754:01 Comprehensive Metabolic Profil Comments: [facility] F[address]qh[address]ezw[address] [place], [place], [id number] GAP 7 (Normal) Range: 5-15 CO2 29.0 [...] DIABETES MELLITUS per A.D.A. criteria. :18 TSH (28381) Comments: PATIENT WAS FASTINGPERFORMED BY: [employer] Lewpau[address] [facility] [id number] TSH 1.070 {uIU/mL} (Normal) Range: 0.450-4.500 :18 URINALYSIS, W/ MICRO (09158) Comments: PATIENT WAS FASTINGPERFORMED BY: [employer] Epvlgd5748 [facility] [id number] Microscopic Examination See below: (Normal) Comments: Microscopic was indicated and was performed. Nitrite, Urine Negative (Normal) Urobilinogen,Semi-Qn 0.2 mg/dL (Normal) Range: 0.2-1.0 Bilirubin Negative (Normal) Occult Blood Trace (Abnormal) Ketones Negative (Normal) Glucose Negative (Normal) Protein Negative (Normal) WBC Esterase Negative (Normal) Appearance Clear (Normal) Urine-Color Yellow (Normal) pH 6.5 (Normal) Range: 5.0-7.5 Specific Powell 1.015 (Normal) Range: 1.005-1.030 :18 MICROALBUMIN: CREATININE RATIO Comments: PATIENT WAS FASTINGPERFORMED BY: [facility]ont Hospital6370 [facility] [id number] (08384) AND (84749) Microalb/Creat Ratio 5.4 {mg/g_creat} (Normal) Range: 0.0-30.0 Microalbumin, Urine 5.9 ug/mL (Normal) Range: 0.0-17.0 Creatinine, Urine 109.1 mg/dL (Normal) Range: 15.0-278.0 :18 CBC W/AUTO DIFF WBC Comments: PATIENT WAS FASTINGPERFORMED BY: AnipipoSummit Oaks HospitalWmlynv4577 [facility] [id number] Information: [id number] (50037) Immature Grans (Abs) 0.0 {x10E3/uL} (Normal) Range: [...] PANEL, COMPREHENSIVE Comments: PATIENT WAS FASTINGPERFORMED BY: LabCoSummit Oaks HospitalXckwuw1582 [facility] [id number] (88932) ALT (SGPT) 18 [iU]/L (Normal) Range: 0-32 [...] mg/dL (Abnormal) Range: 65-99 :18 LIPID PANEL (43861) Comments: PATIENT WAS FASTINGPERFORMED BY: LabBeaumont Hospital6370 [facility] [id number] LDL/HDL Ratio 1.8 {ratio_units} (Normal) Range: 0.0-3.2 [...] 199 mg/dL (Normal) Range: 100-199 :18 CALCIFIDIOL (39500) VIT D 25 Comments: PATIENT WAS FASTINGPERFORMED BY: LabCoSummit Oaks HospitalYgaaps4722 [facility] [id number] Vitamin D, 25-Hydroxy 27.9 ng/mL (Abnormal) Range: 30.0-100.0 Comments: Vitamin D deficiency has been defined by the [place] of[place]icine and an Endocrine Society practice guideline as alevel of serum 25-OH vitamin D less than 20 ng/mL (1,2).The Endocrine Society went on to further define vitamin Dinsufficiency as a level between 21 and 29 ng/mL (2).1. IOM ([place] of Medicine). 2010. Dietary reference intakes for calcium and D. [place]: The National Academies Press.2. Sara MF, Johanna NC, Rosanna SOMMER, et al. Evaluation, treatment, and prevention of vitamin D deficiency: an Endocrine Society clinical practice guideline. JCEM. 2010; 96(7):1911-30. :08 HgA1C , Office (92076) HgA1C , Office 6.3 % (Normal) Range: 4.6 - 7.1 :08 Blood Glucose , Office (90804) Blood Glucose , Office 253 (Normal) :20 CALCIFIDIOL (93332) VIT D Comments: PATIENT WAS FASTINGPERFORMED BY: LabCoSummit Oaks HospitalEhycrq8237 [place] [id number] Information: [id number] Vitamin D, 25-Hydroxy 32.3 ng/mL (Normal) Range: 30.0-100.0 Comments: Vitamin D deficiency has been defined by the [place] of[place]icine and an Endocrine Society practice guideline as alevel of serum 25-OH vitamin D less than 20 ng/mL (1,2).The Endocrine Society went on to further define vitamin Dinsufficiency as a level between 21 and 29 ng/mL (2).1. IOM ([place] of Medicine). 2010. Dietary reference intakes for calcium and D. [place]: The National Academies Press.2. Sara MF, Johanna JOSEPH, Rosanna SOMMER, et al. Evaluation, treatment, and prevention of vitamin D deficiency: an Endocrine Society clinical practice guideline. JCEM. 2010; 96(7):1911-30. :52 HgA1C , Office (59159) HgA1C , Office 6.4 % (Normal) Range: 4.6 - 7.1 :52 Blood Glucose , Office (06294) Blood Glucose , Office 124 (Normal) :03 CBC W/Diff, Automated Comments: Test performed at:[facility] [address]cphen[address] [place], [place] [address] Absolute Lymph 1.29 {X10_3/ul} (Normal) Range: 0.83-4.51 [...] 18-Aug-20149:03 Comprehensive Metabolic Profil Comments: Test performed at:[facility] [address] [place], [place] [address] GAP 7 (Normal) Range: 5-15 CO2 29.0 [...] Panel (7) Comments: PATIENT WAS FASTINGPERFORMED BY: Schedule C SystemsSummit Oaks HospitalKxnarp6516 [facility] [id number] ALT (SGPT) 16 [iU]/L (Normal) Range: 0-32 AST (SGOT) 18 [iU]/L (Normal) Range: 0-40 Alkaline Phosphatase, S 71 [iU]/L (Normal) Range: 39-117 Bilirubin, Direct 0.12 mg/dL (Normal) Range: 0.00-0.40 Bilirubin, Total 0.4 mg/dL (Normal) Range: 0.0-1.2 Albumin, Serum 4.4 g/dL (Normal) Range: 3.5-5.5 Protein, Total, Serum 6.5 g/dL (Normal) Range: 6.0-8.5 :43 Lipid Panel With LDL/HDL Comments: PATIENT WAS FASTINGPERFORMED BY: AnipipoSummit Oaks HospitalAukvty8864 [facility] [id number] Information: [id number] Ratio LDL/HDL Ratio 1.4 {ratio_units} (Normal) Range: [...] :13 CBC W/Diff, Automated Comments: Test performed at:[facility] Fayehcfene3607 [facility] [place] [address] Absolute Lymph 2.30 {X10_3/ul} (Normal) Range: 0.83-4.51 [...] :13 Comprehensive Metabolic Profil Comments: Test performed at:[facility] Xhhdgiqgip[address] [place], [place] [id number] ; ordered by nathan GAP 7 (Normal) [...] <126 mg/dLsuggests IMPAIRED HOMEOSTASIS per A.D.A. criteria. 10-Asp-317476:18 CBC W/Diff, Automated Comments: Test performed at:[facility] [address]egw[address]jijw[address] [place], [place] [id number] Absolute Lymph 2.19 {X10_3/ul} (Normal) Range: 0.83-4.51 [...] 4.2-5.4 WBC 6.3 K/mm3 (Normal) Range: 4.4-11.0 02-Ccn-495147:18 Comprehensive Metabolic Profil Comments: Test performed at:[facility] Rymmliddcj8134 [place] [address] GAP 4 (Abnormal) Range: 5-15 CO2 32.0 [...] <126 mg/dLsuggests IMPAIRED HOMEOSTASIS per A.D.A. criteria. 84-Bso-377184:01 LUKE CULTURE-OTHER (98291) Comments: PATIENT NOT FASTINGPERFORMED BY: [facility] Zlhrzt3019 [facility] [id number] Information: SRC:THRT [id number] Result 1 RRF (Normal) Comments: Routine respiratory radha Upper Respiratory Culture Final report (Normal) 72-Pdz-19631:11 [place] Client Glucose Comments: Test performed at:[facility] Rapixdvwga[address] [place] [address] GLU 124 mg/dL (Abnormal) Range: 70-110 Comments: Fasting Glucose result from 110 to <126 mg/dLsuggests IMPAIRED HOMEOSTASIS per A.D.A. criteria. 69-Vat-60541:11 [place] Client Lipid Profile Comments: Test performed at:[facility] Bsqmkhtsyt3601 [facility] [place] [address] VLDL 32 mg/dL (Normal) Range: 5-40 LDL [...] Examination Comments: PATIENT WAS FASTINGPERFORMED BY: [facility] Byvmnb9448 [facility] [id number] Bacteria None seen (Normal) Mucus Threads Present (Normal) Epithelial Cells (non renal) 0-10 {/hpf} (Normal) Range: 0 - 10 RBC 0-2 {/hpf} (Normal) Range: 0 - 2 WBC 0-5 {/hpf} (Normal) Range: 0 - 5 :01 Vitamin D Hydroxy (97026) Comments: PATIENT WAS FASTINGPERFORMED BY: Ecomsual6370 [address] [place] [id number] Vitamin D, 25-Hydroxy 31.0 ng/mL (Normal) Range: 30.0-100.0 Comments: Vitamin D deficiency has been defined by the [place] of[place]icine and an Endocrine Society practice guideline as alevel of serum 25-OH vitamin D less than 20 ng/mL (1,2).The Endocrine Society went on to further define vitamin Dinsufficiency as a level between 21 and 29 ng/mL (2).1. IOM ([place] of Medicine). 2010. Dietary reference intakes for calcium and D. [place]: The National Academies Press.2. Sara MF, Johanna NC, Rosanna SOMMER, et al. Evaluation, treatment, and prevention of vitamin D deficiency: an Endocrine Society clinical practice guideline. JCEM. 2010; 96(7):1911-30. :01 TSH (32642) Comments: PATIENT WAS FASTINGPERFORMED BY: [employer] Ouqpsb2096 [address] [facility] HospitalDublin [place] [id number] TSH 0.986 {uIU/mL} (Normal) Range: 0.450-4.500 :01 URINALYSIS, W/ MICRO (67398) Comments: PATIENT WAS FASTINGPERFORMED BY: [employer] LabAm[employer] Ovbhcf5784 [address] [facility] Center[facility] [place] [id number] Microscopic Examination See below: (Normal) Comments: Microscopic was indicated and was performed. Microscopic Examination MICRON (Normal) Comments: Microscopic follows if indicated. Nitrite, Urine Negative (Normal) Urobilinogen,Semi-Qn 0.2 mg/dL (Normal) Range: 0.0-1.9 Bilirubin Negative (Normal) Occult Blood Negative (Normal) Ketones Negative (Normal) Glucose Negative (Normal) Protein Negative (Normal) WBC Esterase Negative (Normal) Appearance Clear (Normal) Urine-Color Yellow (Normal) pH 6.5 (Normal) Range: 5.0-7.5 Specific Powell 1.018 (Normal) Range: 1.005-1.030 :01 MICROALBUMIN: CREATININE RATIO Comments: PATIENT WAS FASTINGPERFORMED BY: Ecomsual6370 [address] [facility] HospitalGuangzhou MetechFrye Regional Medical Center [id number] (54672) AND (54021) Microalb/Creat Ratio 2.1 {mg/g_creat} (Normal) Range: 0.0-30.0 Microalbumin, Urine 2.0 ug/mL (Normal) Range: 0.0-17.0 Creatinine, Urine 93.5 mg/dL (Normal) Range: 15.0-278.0 : METABOLIC PANEL, COMPREHENSIVE Comments: PATIENT WAS FASTINGPERFORMED BY: Ecomsual6370 [facility] CenterGuangzhou MetechFrye Regional Medical Center [id number] (94463) ALT (SGPT) 12 [iU]/L (Normal) Range: 0-32 [...] mg/dL (Abnormal) Range: 65-99 :01 LIPID PANEL (78625) Comments: PATIENT WAS FASTINGPERFORMED BY: Anipipo Ctpgbh1071 [facility] [id number] LDL/HDL Ratio 2.3 {ratio_units} (Normal) Range: 0.0-3.2 [...] Range: 100-199 :01 CBC W/AUTO DIFF WBC (31717) Comments: PATIENT WAS FASTINGPERFORMED BY: Ecomsual6370 [facility] [id number] Immature Grans (Abs) 0.0 {x10E3/uL} (Normal) Range: [...] (Normal) Range: 3.4-10.8 :25 HgA1C , Office (37679) HgA1C , Office 6.5 % (Normal) Range: 4.6 - 7.1 :25 Blood Glucose , Office (73522) Blood Glucose , Office 143 (Normal) :36 URINE LUKE CULTURE (BALDO Comments: PATIENT NOT FASTINGPERFORMED BY: LabCoSummit Oaks HospitalUkzhxm7709 [facility] [id number] Information: SRC:UR [id number] COL COUNT) (28757) Result 1 PROTMP (Abnormal) Comments: Proteus mirabilis/sjrenvz846 Colonies/mLBeta hemolytic Streptococcus, group B10,000-25,000 colony forming [...] S Urine Final report Culture,Comprehensi (Abnormal) ve 02-Nea-04729:17 Urinalysis, Office (84502) UA - LEUKOCYTE ESTERASE Large (Normal) UA - NITRITE Positive (Normal) URINE UROBILINGN BALDO TIMED Normal mg/dL (Normal) UA - PROTEIN Trace mg/dL (Normal) UA - PH 6.5 (Normal) UA - BLOOD Negative (Normal) UA - SPECIFIC GRAVITY 1.025 (Normal) UA - KETONES Moderate mg/dL (Normal) UA - BILIRUBIN Negative (Normal) UA - GLUCOSE Negative (Normal) 79-Xcx-798208:42 CBCD ALC 1.95 {X10_3/ul} (Normal) Range: 0.83-4.51 [...] 4.2-5.4 WBC 6.5 K/mm3 (Normal) Range: 4.4-11.0 38-Mpc-759642:42 CMP GAP 5 (Normal) Range: 5-15 CO2 [...] 126 mg/dLsuggests DIABETES MELLITUS per A.D.A. criteria. 22-Hrj-310225:09 LUKE CULTURE-OTHER (33929) Comments: PATIENT NOT FASTINGPERFORMED BY: CB [facility] Ceorpe3643 [facility] [id number] Information: SRC:THRT [id number] Result 1 BETAGG (Abnormal) Comments: Beta hemolytic [...] 2011) Upper Respiratory Culture Final report (Abnormal) 83-Psz-82749:09 Rapid Strep Test, Office (66096) Rapid Strep Test, Office Negative (Normal) :12 MICROALBUMIN: CREATININE RATIO Comments: PATIENT WAS FASTINGPERFORMED BY: ChirpVisionFrye Regional Medical Center [id number] (01267) AND (88635) Microalb/Creat Ratio 6.3 {mg/g_creat} (Normal) Range: 0.0-30.0 Microalbumin, Urine 10.0 ug/mL (Normal) Range: 0.0-17.0 Creatinine, Urine 157.7 mg/dL (Normal) Range: 15.0-278.0 :12 CALCIFEDIOL (56172) Comments: PATIENT WAS FASTINGPERFORMED BY: Ecomsual6370 [employer] [facility] HospitalGuangzhou MetechFry[facility] Center [id number] Vitamin D, 25-Hydroxy 26.6 ng/mL (Abnormal) Range: 30.0-100.0 Comments: Vitamin D deficiency has been defined by the [place] of[place]icine and an Endocrine Society practice guideline as alevel of serum 25-OH vitamin D less than 20 ng/mL (1,2).The Endocrine Society went on to further define vitamin Dinsufficiency as a level between 21 and 29 ng/mL (2).1. IOM ([place] of Medicine). 2010. Dietary reference intakes for calcium and D. [place]: The National Academies Press.2. Sara MF, Johanna NC, Rosanna SOMMER, et al. Evaluation, treatment, and prevention of vitamin D deficiency: an Endocrine Society clinical practice guideline. JCEM. 2010; 96(7):1911-30. :12 CBC with manual diff Comments: PATIENT WAS FASTINGPERFORMED BY: [employer] Ltdselect at [place] [id number] Information: [id number] (33061) Immature Grans (Abs) 0.0 {x10E3/uL} (Normal) Range: [...] (THYROID STIMULATING Comments: PATIENT WAS FASTINGPERFORMED BY: AnipipoSummit Oaks HospitalEupztw9619 [facility] [id number] HORMONE) (17753) TSH 1.420 {uIU/mL} (Normal) Range: 0.450-4.500 :12 LIPID PANEL (90798) Comments: PATIENT WAS FASTINGPERFORMED BY: AnipipoSummit Oaks HospitalCjhrle5399 [facility] [id number] LDL/HDL Ratio 2.4 {ratio_units} (Normal) Range: 0.0-3.2 [...] Cholesterol, Total 208 mg/dL (Abnormal) Range: 100-199 33-Azy-98131:12 METABOLIC PANEL, COMPREHENSIVE Comments: PATIENT WAS FASTINGPERFORMED BY: [facility] Ioyfjx2767 [facility] [id number] (13288) ALT (SGPT) 18 [iU]/L (Normal) Range: 0-32 [...] (Abnormal) Range: 65-99 :21 HgA1C , Office (07514) HgA1C , Office 6.1 % (Normal) Range: 4.6 - 7.1 :21 Blood Glucose , Office (38724) Blood Glucose , Office 153 (Normal) :54 [...] 4.2-5.4 WBC 6.1 K/mm3 (Normal) Range: 4.4-11.0 7-Kwl-674203:54 CMP GAP 7 (Normal) Range: 5-15 CO2 [...] 7-18 GLU 86 mg/dL (Normal) Range: 70-110 56-Vnn-296675:04 CBCD ANC 3.8 {X10_3/uL} (Normal) Range: 2.0-7.7 [...] 4.2-5.4 WBC 6.1 K/mm3 (Normal) Range: 4.4-11.0 66-Jnd-102722:04 CMP CO2 29.0 mmol/L (Normal) Range: 21.0-32.0 [...] 7-18 GLU 90 mg/dL (Normal) Range: 70-110 3-Zts-382632:49 Microscopic Examination Comments: PATIENT WAS FASTINGPERFORMED BY: [facility]6370 [facility] [id number] Bacteria None seen (Normal) Mucus Threads Present (Normal) Epithelial Cells (non renal) 0-10 {/hpf} (Normal) Range: 0 - 10 RBC 0-3 {/hpf} (Normal) Range: 0 - 3 WBC 0-5 {/hpf} (Normal) Range: 0 - 5 :09 HgA1C , Office (57025) HgA1C , Office 6.2 % (Normal) Range: 4.6 - 7.1 :09 Blood Glucose , Office (84633) Blood Glucose , Office 152 (Normal) :12 LIPID PANEL (56455) Comments: PATIENT WAS FASTINGPERFORMED BY: [facility]6370 [facility] [id number] LDL Cholesterol Calc 93 mg/dL (Normal) Range: 0-99 LDL/HDL Ratio 1.7 {ratio_units} (Normal) Range: 0.0-3.2 VLDL Cholesterol Huy 28 mg/dL (Normal) Range: 5-40 HDL Cholesterol 56 mg/dL (Normal) Comments: According to ATP-III Guidelines, HDL-C >59 mg/dL is considered anegative risk factor for CHD. Cholesterol, Total 177 mg/dL (Normal) Range: 100-199 Triglycerides 141 mg/dL (Normal) Range: 0-149 :12 TSH (17110) Comments: PATIENT WAS FASTINGPERFORMED BY: [facility] JackBeaumont Hospital6370 [facility] [id number] TSH 1.090 {uIU/mL} (Normal) Range: 0.450-4.500 20-Jun-20138:12 MICROALBUMIN: CREATININE RATIO Comments: PATIENT WAS FASTINGPERFORMED BY: [facility] JackBeaumont Hospital6370 [facility] [id number] (14895) AND (52764) Microalb/Creat Ratio 4.4 {mg/g_creat} (Normal) Range: 0.0-30.0 Creatinine, Urine 110.3 mg/dL (Normal) Range: 15.0-278.0 Microalbumin, Urine 4.9 ug/mL (Normal) Range: 0.0-17.0 :12 URINALYSIS, W/ MICRO (62083) Comments: PATIENT WAS FASTINGPERFORMED BY: Moz70 [facility] [id number] Microscopic Examination See below: (Normal) Microscopic Examination MICRON (Normal) Comments: Microscopic follows if indicated. Nitrite, Urine Negative (Normal) Urobilinogen,Semi-Qn 0.2 mg/dL (Normal) Range: 0.0-1.9 Bilirubin Negative (Normal) Ketones Negative (Normal) Occult Blood Negative (Normal) Glucose Negative (Normal) Protein Negative (Normal) WBC Esterase Negative (Normal) Appearance Clear (Normal) Urine-Color Yellow (Normal) pH 7.0 (Normal) Range: 5.0-7.5 Specific Powell 1.021 (Normal) Range: 1.005-1.030 :12 METABOLIC PANEL, COMPREHENSIVE Comments: PATIENT WAS FASTINGPERFORMED BY: Ecomsual6370 [facility] [id number] (51020) ALT (SGPT) 14 [iU]/L (Normal) Range: 0-32 [...] MANUAL DIFF Comments: PATIENT WAS FASTINGPERFORMED BY: LabBeaumont Hospital6370 [facility] [id number] Information: [id number] (16916) Immature Grans (Abs) 0.0 {x10E3/uL} (Normal) Range: [...] (Normal) Range: 3.4-10.8 :20 HgA1C , Office (83809) HgA1C , Office 6.2 % (Normal) Range: 4.6 - 7.1 :20 Blood Glucose , Office (23174) Blood Glucose , Office 116 (Normal) 40-Stt-770045:36 CULTURE, SPUTUM (77196) Comments: PATIENT NOT FASTINGPERFORMED BY: LabAmrit Advanced BiotechRebecca Ville 9598470 [facility] [id number] Information: SRC:[facility] [id number] Result 1 RRF (Normal) Comments: Routine respiratory radha Lower Respiratory Culture Final report (Normal) :55 HgA1C , Office (00049) HgA1C , Office 6.2 % (Normal) Range: 4.6 - 7.1 :55 Blood Glucose , Office (69317) Blood Glucose , Office 188 (Normal) :28 LIPID PANEL (19485) Comments: PATIENT WAS FASTINGPERFORMED BY: LabAmrit Advanced BiotechRebecca Ville 9598470 [facility] [id number] Information: ADD [id number] AND DRAW FEE 99 6660 LDL/HDL Ratio [...] (Normal) Range: 100-199 :06 HgA1C , Office (43414) HgA1C , Office 5.9 % (Normal) Range: 4.6 - 7.1 :06 Blood Glucose , Office (61498) Blood Glucose , Office 94 (Normal) :48 TSH (47846) Comments: PATIENT WAS FASTINGPERFORMED BY: AnipipoSummit Oaks HospitalQogvls5764 [facility] [id number] TSH 1.110 {uIU/mL} (Normal) Range: 0.450-4.500 :48 URINALYSIS, W/ MICRO Comments: PATIENT WAS FASTINGPERFORMED BY: [facility]6370 [facility] [id number] Information: [id number] (63187) Microscopic Examination See below: (Normal) Microscopic Examination MICRON (Normal) Comments: Microscopic follows if indicated. Nitrite, Urine Negative (Normal) Urobilinogen,Semi-Qn 0.2 mg/dL (Normal) Range: 0.0-1.9 Bilirubin Negative (Normal) Occult Blood Negative (Normal) Ketones Negative (Normal) Glucose Negative (Normal) Protein Negative (Normal) WBC Esterase Negative (Normal) Appearance Clear (Normal) Urine-Color Yellow (Normal) pH 7.0 (Normal) Range: 5.0-7.5 Specific Powell 1.018 (Normal) Range: 1.005-1.030 :48 MICROALBUMIN: CREATININE RATIO Comments: PATIENT WAS FASTINGPERFORMED BY: AnipipoSummit Oaks HospitalOzmilh8929 [facility] [id number] (41819) AND (28826) Microalb/Creat Ratio 2.8 {mg/g_creat} (Normal) Range: 0.0-30.0 Microalbumin, Urine 2.8 ug/mL (Normal) Range: 0.0-17.0 Creatinine, Urine 100.6 mg/dL (Normal) Range: 15.0-278.0 :48 LIPID PANEL (46042) Comments: PATIENT WAS FASTINGPERFORMED BY: Gravity JackBe[facility]umont Hospital6370 [facility] [id number] LDL/HDL Ratio 1.9 {ratio_units} (Normal) Range: 0.0-3.2 [...] Microscopic Examination Comments: PATIENT WAS FASTINGPERFORMED BY: Anipipo Rhymwb5095 [facility] [id number] Bacteria None seen (Normal) Epithelial Cells (non renal) 0-10 {/hpf} (Normal) Range: 0 - 10 RBC 0-3 {/hpf} (Normal) Range: 0 - 3 WBC 0-5 {/hpf} (Normal) Range: 0 - 5 :21 Blood Glucose , Office (74811) Blood Glucose , Office 127 (Normal) :21 HgA1C , Office (37233) HgA1C , Office 6.2 % (Normal) Range: 4.6 - 7.1 :45 HgA1C , Office (55980) HgA1C , Office 6.9 % (Normal) Range: 4.6 - 7.1 :45 Blood Glucose , Office (11428) Blood Glucose , Office 238 (Normal) :41 Microscopic Examination Comments: PATIENT WAS FASTINGPERFORMED BY: AnipipoRoosevelt General HospitalTcbbeg4097 [facility] [id number] Bacteria None seen (Normal) Mucus Threads Present (Normal) Epithelial Cells (non renal) 0-10 {/hpf} (Normal) Range: 0 - 10 RBC 0-3 {/hpf} (Normal) Range: 0 - 3 WBC 0-5 {/hpf} (Normal) Range: 0 - 5 :41 TSH (47407) Comments: PATIENT WAS FASTINGPERFORMED BY: AnipipoRoosevelt General HospitalIfsodd1465 [facility] [facility] [id number] TSH 1.290 {uIU/mL} (Normal) Range: 0.450-4.500 :41 URINALYSIS, W/ MICRO (46655) Comments: PATIENT WAS FASTINGPERFORMED BY: AnipipoSummit Oaks HospitalPjqjge4562 [facility] [id number] Microscopic Examination See below: (Normal) Nitrite, Urine Negative (Normal) Urobilinogen,Semi-Qn 0.2 mg/dL (Normal) Range: 0.0-1.9 Bilirubin Negative (Normal) Occult Blood Negative (Normal) Ketones Negative (Normal) Glucose Negative (Normal) Protein Negative (Normal) WBC Esterase 1+ (Abnormal) Appearance Clear (Normal) Urine-Color Yellow (Normal) pH 7.5 (Normal) Range: 5.0-7.5 Specific Powell 1.020 (Normal) Range: 1.005-1.030 :41 MICROALBUMIN: CREATININE RATIO Comments: PATIENT WAS FASTINGPERFORMED BY: Schedule C SystemsRoosevelt General HospitalQykqsw0626 Meetingmix.comFrye Regional [facility] Center [id number] ([id number]) AND (09038) Microalb/Creat Ratio 2.0 {mg/g_creat} (Normal) Range: 0.0-30.0 Microalbumin, Urine 2.4 ug/mL (Normal) Range: 0.0-17.0 Creatinine, Urine 119.8 mg/dL (Normal) Range: 15.0-278.0 :41 METABOLIC PANEL, COMPREHENSIVE Comments: PATIENT WAS FASTINGPERFORMED BY: [employer] Pbmayb4982 Meetingmix.comFrye Regional Medical Center [id number] (75071) ALT (SGPT) 19 [iU]/L (Normal) Range: 0-40 [...] mg/dL (Abnormal) Range: 65-99 :41 LIPID PANEL (77428) Comments: PATIENT WAS FASTINGPERFORMED BY: Moz70 [facility] [id number] LDL/HDL Ratio 1.8 {ratio_units} (Normal) Range: 0.0-3.2 [...] MANUAL DIFF Comments: PATIENT WAS FASTINGPERFORMED BY: [employer] Drmawd5844 [facility] [id number] Information: [id number] (23881) Immature Grans (Abs) 0.0 {x10E3/uL} (Normal) Range: [...] (Normal) Range: 4.0-10.5 :07 HgA1C , Office (99786) HgA1C , Office 6.4 % (Normal) Range: 4.6 - 7.1 :07 Blood Glucose , Office (61244) Blood Glucose , Office 223 (Normal) :01 HgA1C , Office (33594) HgA1C , Office 6.1 % (Normal) Range: 4.6 - 7.1 :01 Blood Glucose , Office (08141) Blood Glucose , Office 185 (Normal) :28 Hepatic Function Panel (7) Comments: PATIENT WAS FASTINGPERFORMED BY: [facility]Co Ejwrgx6257 [facility] [id number] ALT (SGPT) 19 [iU]/L (Normal) Range: 0-40 AST (SGOT) 19 [iU]/L (Normal) Range: 0-40 Alkaline Phosphatase, S 78 [iU]/L (Normal) Range: 25-150 Bilirubin, Direct 0.12 mg/dL (Normal) Range: 0.00-0.40 Bilirubin, Total 0.3 mg/dL (Normal) Range: 0.0-1.2 Albumin, Serum 4.3 g/dL (Normal) Range: 3.5-5.5 Protein, Total, Serum 6.8 g/dL (Normal) Range: 6.0-8.5 :28 Lipid Panel With LDL/HDL Comments: PATIENT WAS FASTINGPERFORMED BY: LabBeaumont Hospital6370 [facility] [id number] Ratio LDL/HDL Ratio 1.6 {ratio_units} (Normal) Range: 0.0-3.2 LDL Cholesterol Calc 81 mg/dL (Normal) Range: 0-99 VLDL Cholesterol Huy 31 mg/dL (Normal) Range: 5-40 HDL Cholesterol 51 mg/dL (Normal) Comments: According to ATP-III Guidelines, HDL-C >59 mg/dL is considered anegative risk factor for CHD. Triglycerides 154 mg/dL (Abnormal) Range: 0-149 Cholesterol, Total 163 mg/dL (Normal) Range: 100-199 70-Ioc-804196:27 SPINE, LUMBAR (ROUTINE) Radiology Report See Note [...] GERARDO PORTILLO MD :22 HgA1C , Office (71179) HgA1C , Office 6.1 % (Normal) Range: 4.6 - 7.1 :22 Blood Glucose , Office (12239) Blood Glucose , Office 140 (Normal) :19 URINALYSIS (40904) Comments: PATIENT WAS FASTINGPERFORMED BY: ChirpVisionFrye Regional Medical Center [id number] Microscopic Examination MICRON (Normal) Comments: Microscopic follows if indicated. Nitrite, Urine Negative (Normal) Urobilinogen,Semi-Qn 0.2 mg/dL (Normal) Range: 0.0-1.9 Bilirubin Negative (Normal) Occult Blood Negative (Normal) Ketones Negative (Normal) Glucose Negative (Normal) Protein Negative (Normal) WBC Esterase Negative (Normal) Appearance Clear (Normal) Urine-Color Yellow (Normal) pH 7.0 (Normal) Range: 5.0-7.5 Specific Powell 1.016 (Normal) Range: 1.005-1.030 :19 MICROALBUMIN: CREATININE RATIO Comments: PATIENT WAS FASTINGPERFORMED BY: Moz70 Meetingmix.comFrye Regional Medical Center [id number] (39208) AND (60977) Microalb/Creat Ratio 1.6 {mg/g_creat} (Normal) Range: 0.0-30.0 Microalbumin, Urine 1.9 ug/mL (Normal) Range: 0.0-17.0 Creatinine, Urine 120.1 mg/dL (Normal) Range: 15.0-278.0 :19 TSH (80656) Comments: PATIENT WAS FASTINGPERFORMED BY: AnipipoSummit Oaks HospitalJqohnq9584 [facility] [id number] TSH 1.310 {uIU/mL} (Normal) Range: 0.450-4.500 :19 Metabolic Panel, Comments: PATIENT WAS FASTINGPERFORMED BY: AnipipoSummit Oaks HospitalQydswa3219 [facility] [id number] Information: [id number] Comprehensive (86795) ALT (SGPT) 19 [iU]/L (Normal) Range: 0-40 [...] mg/dL (Abnormal) Range: 65-99 :19 Lipid Panel (24325) Comments: PATIENT WAS FASTINGPERFORMED BY: [employer] Vidiyal Micro FinanceSaint Joseph Hospital West [id number] LDL/HDL Ratio 2.5 {ratio_units} (Normal) Range: 0.0-3.2 LDL Cholesterol Calc 121 mg/dL (Abnormal) Range: 0-99 VLDL Cholesterol Huy 28 mg/dL (Normal) Range: 5-40 HDL Cholesterol 48 mg/dL (Normal) Comments: According to ATP-III Guidelines, HDL-C >59 mg/dL is considered anegative risk factor for CHD. Triglycerides 142 mg/dL (Normal) Range: 0-149 Cholesterol, Total 197 mg/dL (Normal) Range: 100-199 :30 HgA1C , Office (45385) HgA1C , Office 6.5 % (Normal) Range: 4.6 - 7.1 :30 Blood Glucose , Office (11856) Blood Glucose , Office 154 (Normal) :12 Microscopic Examination Comments: PATIENT WAS FASTINGPERFORMED BY: Moz70 [facility] [id number] Bacteria None seen (Normal) Mucus Threads Present (Normal) Epithelial Cells (non renal) 0-10 {/hpf} (Normal) Range: 0 - 10 RBC 0-3 {/hpf} (Normal) Range: 0 - 3 WBC 0-5 {/hpf} (Normal) Range: 0 - 5 :12 TSH (91869) Comments: PATIENT WAS FASTINGPERFORMED BY: [facility] [id number] TSH 1.260 {uIU/mL} (Normal) Range: 0.450-4.500 :12 URINALYSIS, W/ MICRO (62255) Comments: PATIENT WAS FASTINGPERFORMED BY: AnipipoSummit Oaks HospitalCgyixb4154 [facility] [id number] Microscopic Examination See below: (Normal) Bilirubin Negative (Normal) Microscopic Examination MICRON (Normal) Comments: Microscopic follows if indicated. Nitrite, Urine Negative (Normal) Occult Blood Negative (Normal) Urobilinogen,Semi-Qn 0.2 mg/dL (Normal) Range: 0.0-1.9 Glucose Negative (Normal) Ketones Negative (Normal) Protein Negative (Normal) Appearance Clear (Normal) pH 7.0 (Normal) Range: 5.0-7.5 Urine-Color Yellow (Normal) WBC Esterase Negative (Normal) Specific Powell 1.017 (Normal) Range: 1.005-1.030 :12 MICROALBUMIN: CREATININE RATIO Comments: PATIENT WAS FASTINGPERFORMED BY: [employer] Jpovgx5620 [facility] [id number] (22349) AND (76891) Microalb/Creat Ratio 2.4 {mg/g_creat} (Normal) Range: 0.0-30.0 Microalbumin, Urine 3.2 ug/mL (Normal) Range: 0.0-17.0 Creatinine, Urine 134.3 mg/dL (Normal) Range: 15.0-278.0 :12 METABOLIC PANEL, COMPREHENSIVE Comments: PATIENT WAS FASTINGPERFORMED BY: AnipipoSummit Oaks HospitalCbkwwl0782 [facility] [id number] (85242) Alkaline Phosphatase, S 67 [iU]/L (Normal) Range: [...] mg/dL (Abnormal) Range: 65-99 :12 LIPID PANEL (49613) Comments: PATIENT WAS FASTINGPERFORMED BY: Moz70 Meetingmix.comFrye Regional Medical Center [id number] LDL/HDL Ratio 2.3 {ratio_units} (Normal) Range: 0.0-3.2 [...] MANUAL DIFF Comments: PATIENT WAS FASTINGPERFORMED BY: ChirpVisionFrye Regional Medical Center [id number] Information: [id number] (96629) Baso (Absolute) 0.0 {x10E3/uL} (Normal) Range: 0.0-0.2 [...] (Normal) Range: 4.0-10.5 :50 HgA1C , Office (39236) Comments: done km HgA1C , Office 6.1 % (Normal) Range: 4.6 - 7.1 :49 Blood Glucose , Office (67830) Comments: done Blood Glucose , Office 127 (Normal) :19 HgA1C , Office (85470) Comments: done km HgA1C , Office 6.8 % (Normal) Range: 4.6 - 7.1 :19 Blood Glucose , Office (68274) Comments: done Blood Glucose , Office 159 (Normal) :54 HEPATIC FUNCTION PANEL Comments: PATIENT WAS FASTINGPERFORMED BY: LipSokikom[address] [place] [address] [id number] BY: AnipipoRebecca Ville 9598470 [facility] [id number] (97408) ALT (SGPT) 25 [iU]/L (Normal) Range: 0-40 AST (SGOT) 25 [iU]/L (Normal) Range: 0-40 Alkaline Phosphatase, S 89 [iU]/L (Normal) Range: 25-150 Bilirubin, Direct 0.15 mg/dL (Normal) Range: 0.00-0.40 Albumin, Serum 4.6 g/dL (Normal) Range: 3.5-5.5 Bilirubin, Total 0.5 mg/dL (Normal) Range: 0.1-1.2 Protein, Total, Serum 7.2 g/dL (Normal) Range: 6.0-8.5 :54 LIPOPROTEIN, BLD, BY NMR Comments: PATIENT WAS FASTINGPERFORMED BY: [facility] ([facility])[address] [place] [address] [id number] BY: E[employer]ual6370 [facility] [id number] Information: [id number] (54091) HDL Size 8.3 nm (Abnormal) Comments: Small LDL-P, LDL Particle Size, Large HDL-P, Large VLDL-PVLDL Size, HDL Size, HDL Particle, and LP-IR Scorehave been validated by [employer] but not cleared by US FDA;the clinical [...] Risk-->LDL AND HDL PARTICLES Percentile in Reference Trinity HealthHDL-P (total) High 75th 50th 25th Low>34.9 34.9 [...] 144 mg/dL (Normal) :21 HgA1C , Office (81245) Comments: done HgA1C , Office 6.1 % (Normal) Range: 4.6 - 7.1 :21 Blood Glucose , Office (51351) Comments: done Blood Glucose , Office 133 (Normal) :25 TSH (80652) Comments: PATIENT WAS FASTINGPERFORMED BY: [facility] [id number] TSH 1.010 {uIU/mL} (Normal) Range: 0.450-4.500 :25 MICROALBUMIN: CREATININE RATIO Comments: PATIENT WAS FASTINGPERFORMED BY: [employer] Qkbxir2197 [facility] [id number] (17187) AND (53087) Creatinine, Urine 79.8 mg/dL (Normal) Range: 15.0-278.0 Microalb/Creat Ratio 1.6 {mg/g_creat} (Normal) Range: 0.0-30.0 Microalbumin, Urine 1.3 ug/mL (Normal) Range: 0.0-17.0 :25 METABOLIC PANEL, COMPREHENSIVE Comments: PATIENT WAS FASTINGPERFORMED BY: [facility] [id number] (52045) A/G Ratio 1.6 (Normal) Range: 1.1-2.5 Albumin, [...] Glucose, Serum 127 mg/dL (Abnormal) Range: 65-99 72-Jdw-48031:25 LIPOPROTEIN, BLD, BY NMR Comments: PATIENT WAS FASTINGClinical Information: [id number] PERFORMED BY: LabBe[facility] Hospital6370 [facility] [id number] (91891) Cholesterol, Total 197 mg/dL (Normal) HDL-C 48 [...] > 1200 . Triglycerides 107 mg/dL (Normal) 22-Zoe-43015:25 CBC WITH MANUAL DIFF (64158) Comments: PATIENT WAS FASTINGPERFORMED BY: LabCoSummit Oaks HospitalFoqzhd3799 [facility] [id number] Baso (Absolute) 0.1 {x10E3/uL} (Normal) Range: 0.0-0.2 [...] (Normal) Range: 4.0-10.5 :02 HgA1C , Office (23552) Comments: done km HgA1C , Office 5.9 % (Normal) Range: 4.6 - 7.1 :02 Blood Glucose , Office (39259) Comments: done Blood Glucose , Office 131 (Normal) :26 Blood Glucose , Office (91471) Comments: done Blood Glucose , Office 80 (Normal) 30-Spm-629846:26 HgA1C , Office (81358) Comments: done HgA1C , Office 5.7 % (Normal) Range: 4.6 - 7.1 :18 Rapid Strep Test, Office (74403) Rapid Strep Test, Office Negative (Normal) :35 URINALYSIS W/O MICRO (42108) Comments: PATIENT WAS FASTINGPERFORMED BY: ChirpVisionFrye Regional Medical Center [id number] Appearance Clear (Normal) Bilirubin Negative (Normal) Glucose Negative (Normal) Ketones Negative (Normal) Microscopic Examination MICRON (Normal) Comments: Microscopic follows if indicated. Nitrite, Urine Negative (Normal) Occult Blood Negative (Normal) pH 6.5 (Normal) Range: 5.0-7.5 Protein Negative (Normal) Specific Powell 1.022 (Normal) Range: 1.005-1.030 Urine-Color Yellow (Normal) Urobilinogen,Semi-Qn 0.2 mg/dL (Normal) Range: 0.0-1.9 WBC Esterase Negative (Normal) :35 MICROALBUMIN: CREATININE RATIO Comments: PATIENT WAS FASTINGPERFORMED BY: ChirpVisionFrye Regional Medical Center [id number] (57853) AND (22026) Microalbum.,U,Random 1.6 ug/mL (Normal) Range: 0.0-17.0 23-Jjc-31346:35 METABOLIC PANEL, COMPREHENSIVE Comments: PATIENT WAS FASTINGPERFORMED BY: [facility] Mkdrqx1509 [facility] [id number] (53873) A/G Ratio 1.7 (Normal) Range: 1.1-2.5 Albumin, [...] on 'Glom Filt Rate, Est' and 'If -Kyrgyz' will be changing to >59 mL/min/1.73. Glucose, Serum 123 mg/dL (Abnormal) Range: 65-99 If -Kyrgyz >60 mL/min (Normal) Range: 60-128 Comments: Note: [...] Sodium, Serum 137 mmol/L (Normal) Range: 135-145 64-Jbs-18029:35 CBC WITH MANUAL DIFF (99971) Comments: PATIENT WAS FASTINGClinical Information: ADD DRAW FEE [id number] ADD J 72223 PERFORMED BY: [facility]6370 [facility] [id number] Baso (Absolute) 0.1 {x10E3/uL} (Normal) Range: 0.0-0.2 [...] {x10E3/uL} (Normal) Range: 4.0-10.5 :35 LIPID PANEL (91683) Comments: PATIENT WAS FASTINGPERFORMED BY: LabCoSummit Oaks HospitalVmjtwz2832 [facility] [id number] Cholesterol, Total 182 mg/dL (Normal) Range: 100-199 Comment SPRCS (Normal) Comments: If initial LDL-cholesterol result is >100 mg/dL, assess forrisk factors. HDL Cholesterol 44 mg/dL (Normal) Range: 40-59 LDL Cholesterol Calc 117 mg/dL (Abnormal) Range: 0-99 LDL/HDL Ratio 2.7 {ratio_units} (Normal) Range: 0.0-3.2 Triglycerides 106 mg/dL (Normal) Range: 0-149 VLDL Cholesterol Huy 21 mg/dL (Normal) Range: 5-40 :03 HgA1C , Office (99905) Comments: done km HgA1C , Office 5.7 % (Normal) Range: 4.6 - 7.1 :03 Blood Glucose , Office (17097) Comments: done km Blood Glucose , Office 141 (Normal) :07 HgA1C , Office (94542) Comments: done km HgA1C , Office 5.7 % (Normal) Range: 4.6 - 7.1 :07 Blood Glucose , Office (88673) Comments: done Blood Glucose , Office 143 [...] {uIU/mL} (Normal) Range: 0.34-4.82 :41 Urinalysis, Office (47280) UA - BILIRUBIN Negative (Normal) UA - [...] Result: 0-5 SEEN :26 HgA1C , Office (89585) Comments: done HgA1C , Office 5.5 % (Normal) Range: 4.6 - 7.1 :26 Blood Glucose , Office (50893) Comments: done Blood Glucose , Office 123 (Normal) 90-Hjs-312465:55 LUKE CULTURE-OTHER (74866) 43-Smp-325830:51 Upper Respiratory Culture Comments: Clinical Information: SRC: ADD [id number] PERFORMED BY: LabCoSummit Oaks HospitalKxxkes9153 [facility] [id number] Result 1 RRF (Normal) Comments: Routine respiratory radha Upper Respiratory Culture Final report (Normal) 69-Zoq-661808:23 Rapid Strep Test, Office (11609) Comments: done Rapid Strep Test, Office Negative [...] (Normal) Range: 0.34-4.82 :06 HgA1C , Office (06469) Comments: done km HgA1C , Office 5.2 % (Normal) Range: 4.6 - 7.1 :06 Blood Glucose , Office (56795) Comments: done km Blood Glucose , Office 102 (Normal) :44 HgA1C , Office (35797) HgA1C , Office 5.5 % (Normal) Range: 4.6 - 7.1 :50 GLUP 210 mg/dL (Abnormal) Comments: GLU,2HPPG 75gm GLUC PPG GLUP from 0611:[id number]. Comments: Glucose result greater than or equal [...] ductal carcinoma of breast, left : Reviewed Stack Supervisor Letter Indication: Invasive ductal carcinoma of breast, left Invasive ductal carcinoma of breast, left : Reviewed Lab Indication: Invasive ductal carcinoma of breast, left Invasive ductal carcinoma of breast, left : Reviewed Stack Supervisor Letter Indication: Invasive ductal carcinoma of breast, [...] mgmt Indication: Hyperlipidemia Psoriatic arthritis : Reviewed Stack Supervisor Letter Indication: Psoriatic arthritis Diabetes mellitus type [...] Indication: Chest pain Chest pain : Reviewed Stack Supervisor Letter Indication: Chest pain Chest pain : [...] diabetes mellitus POLYARTHROPATHY, INFLAMMATORY NOS : Reviewed Stack Supervisor Letter Indication: POLYARTHROPATHY, INFLAMMATORY NOS Hyperlipidemia : [...] Indication: Hyperlipidemia POLYARTHROPATHY, INFLAMMATORY NOS : Reviewed Stack Supervisor Letter Indication: POLYARTHROPATHY, INFLAMMATORY NOS Controlled diabetes [...] reflux disease) Planned Observations URINALYSIS, W/ MICRO (69994)Indication: Controlled diabetes mellitus On: 35-Qpe-865026:59 Request MICROALBUMIN: CREATININE RATIO (25028) AND (94322)Indication: Controlled diabetes mellitus On: 72-Rtv-724371:59 Request METABOLIC PANEL, COMPREHENSIVE (81575)Indication: Controlled diabetes mellitus On: 77-Hyn-521716:59 Request CBC W/AUTO DIFF WBC (35896)Indication: Controlled diabetes mellitus On: 09-Uqg-270958:59 Request CALCIFIDIOL (97097) VIT D 25Indication: Vitamin D deficiency On: 82-Uwt-629895:59 Request LIPOPROTEIN, BLD, BY NMR (70920)Indication: Hyperlipidemia On: 89-Yrh-814407:59 Request CALCIFIDIOL (59842) VIT D 25Indication: Vitamin D deficiency On: 26-Xsx-94175:50 Request TSH (09830)Indication: Diabetes mellitus type 2, uncontrolled, without complications On: :50 Request URINALYSIS, W/ MICRO (17875)Indication: Diabetes mellitus type 2, uncontrolled, without complications On: :49 Request MICROALBUMIN: CREATININE RATIO (62113) AND (62477)Indication: Diabetes mellitus type 2, uncontrolled, without complications On: :49 Request METABOLIC PANEL, COMPREHENSIVE (32833)Indication: Diabetes mellitus type 2, uncontrolled, without complications On: :49 Request LIPID PANEL (87468)Indication: Diabetes mellitus type 2, uncontrolled, without complications On: :49 Request CBC W/AUTO DIFF WBC (78647)Indication: Diabetes mellitus type 2, uncontrolled, without complications On: :49 Request URINALYSIS, W/ MICRO (67101)Indication: Diabetes mellitus type 2, uncontrolled, without complications On: :00 Request Blood Glucose , Office (93637)Indication: Diabetes mellitus type 2, uncontrolled, without complications On: 11-Gns-117555:11 Request Influenza A&B Viral Culture (74168)Indication: Body aches On: 23-Hgj-01872:55 Request FECAL OCCULT- Tubes sent home (22139)Indication: Encounter for screening for malignant neoplasm of colon (Renamed from Special screening for malignant neoplasms, colon) On: :34 Request Throat Culture (53708)Indication: ACUTE PHARYNGITIS (462.) On: :06 Request HEPATIC FUNCTION PANEL (17290)Indication: Hyperlipidemia On: :17 Request LIPID PANEL (41510)Indication: Hyperlipidemia On: :17 Request Rapid Strep Test, Office (05347)Indication: ACUTE PHARYNGITIS (462.) On: :04 Request METABOLIC PANEL, COMPREHENSIVE (19265)Indication: Controlled diabetes mellitus On: :48 Request CBC WITH MANUAL DIFF (57440)Indication: Controlled diabetes mellitus On: :48 Request LIPID PANEL (89768)Indication: Hyperlipidemia On: :45 Request LIPID PANEL (53668)Indication: Hyperlipidemia On: 6-Nov-02838:34 Request LIPID PANEL (27831)Indication: Controlled diabetes mellitus On: 48-Jls-92790:23 Request TSH (38184)Indication: Controlled diabetes mellitus On: 71-Iap-318470:00 Request MICROALBUMIN: CREATININE RATIO (89102) AND (08743)Indication: Controlled diabetes mellitus On: 71-Gzd-983320:00 Request METABOLIC PANEL, COMPREHENSIVE (04456)Indication: Controlled diabetes mellitus On: :00 Request LIPID PANEL (59805)Indication: Controlled diabetes mellitus On: 61-Wgf-559141:00 Request CBC WITH MANUAL DIFF (07044)Indication: Controlled diabetes mellitus On: :00 Request URINALYSIS W MICROSCOPY (02889)Indication: Cystitis, acute On: 60-Vlk-682492:58 Request URINALYSIS W/O MICRO (35551)Indication: Controlled diabetes mellitus On: 88-Vjv-48812:26 Request TSH (98677)Indication: Controlled diabetes mellitus On: 85-Lqe-14024:26 Request METABOLIC PANEL, COMPREHENSIVE (98099)Indication: Controlled diabetes mellitus On: 65-Fnc-01140:26 Request MICROALBUMIN URINE QUANT (03257)Indication: Controlled diabetes mellitus On: 31-Pkd-85786:26 Request LIPID PANEL (82894)Indication: Controlled diabetes mellitus On: 94-Ydb-17696:26 Request CBC WITH MANUAL DIFF (01902)Indication: Controlled diabetes mellitus On: 62-Znh-85980:26 Request LUKE CULTURE-OTHER (37523)Indication: Throat pain On: 56-Bcj-118421:55 Request TSH (25668)Indication: Controlled diabetes mellitus On: 18-Qcc-79106:14 Request LIPID PANEL (53693)Indication: Controlled diabetes mellitus On: 99-Dtj-80470:14 Request MICROALBUMIN URINE QUANT (60469)Indication: Controlled diabetes mellitus On: 27-Iky-88177:14 Request LIPID PANEL (10298)Indication: Family history of diabetes mellitus On: 13-Nsb-500435:10 Request Glucose, PP/2 Hour (50839)Indication: Family history of diabetes mellitus On: 08-Ekm-606646:10 Request Planned Encounters Medical; 3 Month FU - On: 03-May-2018 8:15 [facility] Ruth Jones DO, DO, Kathleen Planned Procedures Holter Monitor 24 hrsBy: Karen SINGH, On: 22-Feb-2017 Intent Ruth Ibarra DO Comments: maryam to read ELECTROCARDIOGRAM, COMPLETE (ECG) On: 22-Feb-2017 Intent (54163)By: Ruth Jones DO Comments: nsr no acute chg Ruth Jones DO ELECTROCARDIOGRAM, COMPLETE (ECG) On: 07-Jul-2016 Intent (87847)By: Ruth Jones DO Comments: nsr no acute chg Ruth Jones DO Spirometry (99887)By: Karen SINGH On: 02-Mar-2016 Intent Ruth Ibarra DO Comments: normal Aerosol Treatment (51226)By: Kaleb On: 28-Feb-2016 Intent Trinh GONZALEZ EKG (21910)By: Ruth Jones DO On: 21-Aug-2014 Intent Ruth Jones DO Comments: sinus carroll no acute chg SPECIMEN HNDLNG/TRNSPRT, OFFC > LAB On: 24-Feb-2014 Intent (43688)By: Jaquelin Shore CNP Flu Vaccine (Quadrivalent) 25446Ve: On: 18-Dec-2013 Intent Ruth Jones DO, DO, Comments: Lot:[id number]/27Amt:0.5mlRoute:IMSite: L DltdGiven By: KENYATTA Marsh signed Ruth ADMINISTRATION OF INFLUENZA VIRUS On: 18-Dec-2013 Intent VACCINE (G0008)By: Ruth Jones DO, DO, Kathleen Ear Irrigation (61662)By: Silviano On: 06-Oct-2013 Intent Jaquelin FRANKEL Comments: addendum to 10/06/13 OVEar Irrigation performed on:left earAmount/color removed cerumen:dark brown, large amountOUtcome:clearUsed wax curettes Wax CurettesBy: Jaquelin Shore CNP On: 06-Oct-2013 Intent Ear Irrigation (89311)By: Silviano On: 06-Oct-2013 Intent Jaquelin FRANKEL Eprescribed prescriptions (G8553)By: On: 20-Jun-2013 Ruth Villanueva DO, DO, Kathleen EKG (03011)By: Ruth Jones DO On: 20-Jun-2013 Intent Ruth Jones DO Comments: nsr no acute chg Eprescribed prescriptions (G8553)By: On: 28-Mar-2013 Intent Karen SINGH Ruth Karen DO, Ruth Aerosol Treatment (01497)By: On: 17-Feb-2013 Intent Natalie Covington Eprescribed prescriptions (G8553)By: On: 17-Feb-2013 Intent Natalie Covington Ultrasound - Abdomen CompleteBy: On: 16-Jan-2013 Intent Karen SINGHRuth Karen DO, Ruth FLU VAC, SPLIT, >3 YEARS, INTRAMUSC On: 16-Jan-2013 Intent (28344)By: Karla Santana LPN Comments: Lot:[id number]:6.14Amt:0.5mlRoute:IMSite: L DltdGiven By: LISA MarshVIS signed IMMUNIZ ADMNIN, 1 VAC, SNGL/COMBO On: 16-Jan-2013 Intent (41427)By: Karla Santana LPN Aerosol Treatment (09418)By: Ciesa On: 28-Oct-2012 Intent Jaquelin FRANKEL Eprescribed prescriptions (G8553)By: On: 28-Oct-2012 Intent Natalie Covington EKG (18473)By: Ruth Jones DO On: 24-May-2012 Intent Ruth Jones DO Eprescribed prescriptions (G8553)By: On: 24-May-2012 Intent Karla Santana LPN Eprescribed prescriptions (G8553)By: On: 11-Jan-2012 Intent Karla Santana LPN Eprescribed prescriptions (G8553)By: On: 01-Dec-2011 Intent Karla Santana LPN PNEUM VAC ADLT/IMUMNOSPR, SBC/INTRM On: 08-Sep-2011 Intent (35859)By: Ruth Jones DO Comments: Lot #[id number]/12Site-left deltoidDose- 0.5mlgiven by: LISA Soni DO, Kathleen IMMUNIZ ADMNIN, 1 VAC, SNGL/COMBO On: 08-Sep-2011 Intent (73974)By: Ruth Jones DO, DO, Kathleen EKG (32316)By: Ruth Jones DO On: 17-Mar-2011 Intent Ruth Jones DO Comments: nsr no acute changes MRI - Lumbar SpineBy: Karen SINGH, On: 22-Dec-2010 Intent Ruth Ibarra DO FLU VAC, SPLIT, >3 YEARS, INTRAMUSC On: 09-Dec-2010 Intent (03999)By: Gabriella Dey LPN Comments: had done at work in early November IMMUNIZ ADMNIN, 1 VAC, SNGL/COMBO On: 09-Dec-2010 Intent (20777)By: Gabriella Dey LPN EKG (15008)By: Ruth Jones DO On: 29-Apr-2010 Intent Ruth Jones DO Comments: nsr no acute ishcemic changes Aerosol Treatment (19304)By: Silviano On: 19-May-2009 Intent Jaquelin FRANKEL EKG (34060)By: Ruth Jones DO On: 18-Dec-2008 Intent Ruth Jones DO Comments: nsr no acute ischemic changes TDAP VACCINE >7 IM (56586)By: Karen On: 26-Jun-2008 Ruth Bejarano DO, DO, Kathleen Comments: Lot #: [id number] date: mount given:0.5 mlRoute: IMSite given: Right deltoidGiven by: Jonathan Woodruff LPN Pulse Oximetry (54109)By: Silviano FRANKEL, On: 04-Feb-2008 Intent Rossy Aerosol Treatment (46033)By: Silviano On: 04-Feb-2008 Intent Jaquelin FRANKEL EKG (53271)By: Ruth Jones DO On: 04-Oct-2007 Intent Ruth Jones DO Comments: nsr no acute ischemic changes Ear Irrigation (16285)By: Karen On: 01-Jan-2007 Ruth Bejarano DO, DO, Kathleen Comments: LEFT --KEISHA WELL EKG (07298)By: Ruth Jones DO On: 03-Aug-2006 Intent Ruth [...] mammography (2006) and screening, visual acuity (2004 [facility]). Encounter Diagnosis: Gerd (530.81), Headache, tension (307.81), Headache,Migraine (346.00), Family history of diabetes mellitus (V18.0) [facility] P[facility] Jessie MACE/Mela Rodriguez; a guarantor
--- OUTSIDE RECORDS SUMMARY | 2018-05-05 21:06 | XMS RPT_ITS | Continuity of Care Document ---
:1955 Author Organization [facility] Address [address] [place] [address] Phone Care Team Providers Name Role Phone Ruth Jones DO Unavailable Dr. Yovani Mcduffie Unavailable Ruth Jones DO Unavailable LISA Santana Unavailable Unavailable Angelica Sandoval Unavailable Unavailable Unavailable Unavailable Problems Name Dates [...] on mxt to control pain Status: Active Sinus infection (J32.9, 473.9) Status: [...] 786.07) Status: Active Medications Name Dates Details Anastrozole 1 MG Oral Tablet Active 1 qd (1 MG) CALCIUM + D, 360-929MH-SLEF (Oral Tablet) 1 bid for 0 days Refills: 0 Ordered:18-Dec-2008 Karla Santana Fiorinal 50-325-40 MG Oral Capsule 1 Capsule q 6 hr prn for 0 days Quantity: 30 {Capsule} Refills: 0 Ordered:18-Jan-2018 Roby Jones DO, DO, Kathleen Start : 18-Jan-2018 Active Comments:kcyrucJ89.109C50.912 FreeStyle Lite Test In Vitro Strip 1 [...] Oral Tablet prn (8 MG) Active Pen [place] 31G X 5 MM Miscellaneous 1 (one) [...] Quantity: 1 {Box} Refills: 0 Ordered:21-Sep-2017 Karla aSntana LPN Start : 02-Mar-2016 End : 21-Sep-2017 [...] Inactive Comments:sixty IMITREX, 50MG (Oral Tablet) 1 (one) Tablet Daily prn may repeat x 1 for 0 days Quantity: 14 {Tablet} Refills: 0 Ordered:29-Apr-2007 Karla Santana LPN Start : 29-Apr-2007 End : 04-Oct-2007 Inactive IMITREX, 50MG (Oral Tablet) 1 Tablet PRN for 0 days Quantity: 30 {Tablet} Refills: 3 Ordered:27-Feb-2011 Karla Santana LPN Start : 12-Oct-2010 End : 27-Feb-2011 Inactive JANUMET XR, 100/1000 (Oral Tablet) (Free [...] : 29-Apr-2010 Discontinued Comments:This order discontinued per -Span. PROZAC, 10MG (Oral Tablet) 2 (two) Tablet [...] Status: Active Comments: shellfish, Iodine, IV dyes Past Medical History Name Dates Details Acute [...] Department Summary Result: Comments: See Note; NOTES: [facility] Medical Records Department [address] [place] [address] Emergency Department Summary 01/18/18 2137 MR#: [id number] Acct: [id number] Name: JESSICA RODRIGUEZ Rep #: [id number] : 1955 62 From: Ritchie Mota MD [...] chest cellulitis This note was generated with Nokori dictation software. It may contain incorrect words, [...] your Primary Care Provider. Call [facility] ([phone]) or report to the closest Emergency Room. Call 911 if necessar y. 01/19/18 0029 <Electronically signed by Ritchie Mota MD> Date Ritchie Mota MD Cosigner Signature (If Indicated): Date CC: Ruth Jones DO 27-May-2017 Operative Report Result: Comments: See Note; NOTES: [facility] Medical Records Department [address] [place] [address] Operative Report 05/24/17 0900 MR#: [id number] Acct: [id number] Name: JIMENEZ RODRIGUEZ Rep #: [id number] : 1955 62 From: Hodan Chong MD PCP: Ruth Jones DO Status: [facility] [place] [facility] [place] Report of Operation Date of Procedure: 05/24/17 Pre-Operative Diagnosis: history of left breast cancer, left axillary bulky adenopathy, left mastectomy dog ear Post-Operative Diagnosis: same as above Surgery/Procedure Performed:: Left axillary lymphadenectomy, revision of left maste ctomy dog ear Description of Surgical Findings:: bulky adenopathy of left axilla, left mastectomy lateral dog ear dev manager: Alma Swan Type of Anesthesia:: General Anesthesiologist: [...] signed by Hodan Chong MD&#6 2; Date Hdoan Chong MD CC: Ruth Jones DO; Hodan Chong MD Signed 24-May-2017 Discharge Instruction Result: Comments: See Note; NOTES: [facility] Medical Records Department [address] [place] [address] Instructions for Home/Discharge Instructions 05/24/17 0903 MR#: [id number] Acct: [id number] Name: JESSICA RODRIGUEZ Rep #: [id number] : 1955 62 From: Hodan Chong MD PCP: Ruth Jones DO Status: REG [facility] [place] Discharge Diet: No Restrictions Discharge Activity: Return [...] Reactions: Allergies shellfish derived Allergy (Mild, Verified 04/11/18 08:38) Hives iodine Allergy (Verified 05/23/17 08:38) [...] Aspirin/Acetaminophen/Caffeine [Excedrin Migraine Caplet] 1 each PO HI N PRN 04/18/17 Calm Day 3 cap PO DAILY 04/18/17 Cholecalciferol (Vitamin D3) [Vitamin D3] 2,000 unit PO DAILY 04/18/17 Ibuprofen 400 mg PO PRN PRN 04/18/17 Melatonin [Melatin] 6 mg PO QHS 04/18/17 Metfo rmin HCl 500 mg PO BID 04/18/17 Calcium (Elemental) [Os-Huy 500] 1,000 mg PO DAILY 05/23/17 Hydrocodone Bitart/Apap 5-325 [Howell 5MG-325MG] 1 tab PO Q6H PRN PRN #20 tab 05/24/17 The following prescrip tions were given: Hydrocodone Bitart/Apap 5-325 [Howell 5MG-325MG] 1 tab PO Q6H PRN PRN [...] Operative Report Result: Comments: See Note; NOTES: [facility] Medical Records Department [address] [place] [address] Operative Report 04/20/17 1454 MR#: [id number] Acct: [id number] Name: JIMENEZ RODRIGUEZ Rep #: [id number] : 1955 62 From: Palmer Hawkins MD PCP: Ruth Jones DO Status: REG [facility] [place] Location: [place] [address] Report of Operation Date of Procedure: 04/20/17 Pre-Operative Diagnosi s: left breast cancer Post-Operative Diagnosis: same Surgery/Procedure Performed:: right simple mastectomy dev manager: Brittny Mccullough Type of Anesthesia:: General Anesthesiologist: Trung Mills'radha removed: right breast Drains: 15 Fr round [...] . The specimen was sent whole . 1 Newton-Duarte drain were placed in the medial along the skin flap the lateral in the axilla and secured with 3-0 nylon suture. Skin flaps were approximated interrup murali 3-0 Vicryls. Skin was closed with running 4-0 monocryl. Drain dressings and incisional dressings were placed. All sponge and instrument counts were correct. The patient was extubated and brought to recovery room in stable condition. 04/20/17 9002 <Electronically signed by Palmer Hawkins MD> Date Palmer Hawkins MD CC: Ruth Jones DO; Hodan Chong MD; Palmer Hawkins MD Signed 29-Dec-2016 Shoulder min 2 Views Result: Comments: See Note; NOTES: [facility] Imaging Services [address] [place] [address] Shoulder min 2 Views MR#: [id number] Acct: [id number] Name: JESSICA RODRIGUEZ Rep #: [id number] : 1955 F 61 From: Perla Henderson MD PCP: Ruth Jones DO Status: REG CLI Study: Shoulder min 2 Views Date of Exam: 12/29/16 Exam# [id number] Ordering Dr: Natalia Otto MD STUDY: X-R [...] CC: Ruth Jones DO; Natalia Otto MD Automatic Folder Seamer: Signed 26-Aug-2015 ELECTROCARDIOGRAM, COMPLETE (ECG) (56982) Comments: nsr no acute chg Result: [MEASUREMENTS ANALYSIS] Date of Test: 08/26/2015 07:49:01; Heart Rate: 62; HI Interval: 152; QRS: 88; QT Interval: 424; Corrected QT Interval (QTc): 427; P Wave Angelica: 47; QRS Wave Angelica: 61; T Wave Angelica: 47; Blood Pressure: 130/70 [ECG DIAGNOSTIC STATEMENTS] Date of Test: 08/26/2015 07:49:01; Summary: Sinus Rhythm WITHIN NORMAL LIMITS 20-Aug-2013 Chest PA and Lateral Result: Comments: See Note; NOTES: [facility] Imaging Services [address] [place] [address] Radiology Report MR#: [id number] Acct: [id number] Name: JESSICA RODRIGUEZ Rep #: [id number] : 1955 F 58 From: Edilberto Patel MD PCP: Ruth Jones DO Status: REG CLI Study: Chest PA and Lateral Date of Exam: 08/20/13 Exam# [id number] Ordering Dr: Natalia Otto MD STUDY: X-RAY [...] Edilberto Patel MD at 10:10 EDT Tel [phone], Service support [phone], Fax RAD/Chest PA and Lateral IMPRESSION: No acute abnormality is present. Electronically Signed: Edilberto Patel MD at 10:10 EDT Tel [phone], Service support [phone], CC: Ruth Jones DO; Natalia Otto MD Automatic Folder Seamer: Signed 22-Jan-2013 Abdomen Complete Result: Comments: See Note; NOTES: [facility] Imaging Services [address] [place] [address] Ultrasound Report MR#: [id number] Acct: [id number] Name: JESSICA RODRIGUEZ Rep #: [id number] : 1955 F 57 From: Edilberto Patel MD PCP: Status: REG CLI Study: Abdomen Complete Date of Exam: 01/22/13 Exam# [id number] Ordering Dr: Ruth Jones DO STUDY: ABDOMINAL [...] M.D. at 10:28 EST , Service support [phone], CC: Ruth Jones DO Automatic Folder Seamer: Signed Immunization Name Dates Details Tdap (7 years and up) on: 26-Jun-2008 Comments: Lot #: [id number] date: mount given:0.5 mlRoute: IMSite given: Right deltoidGiven by: Jonathan Woodruff LPN Family History Unknown Family Member Name Dates Details Father Comments: DM, Heart Dz, Cholestrol, arthlosclorsis Status: Active Maternal Grandmother Comments: BR CA Status: Active Social History Name Dates Details Alcohol Use Comments: Occasional alcohol use Status: Active Caffeine Use Comments: 2-4 QD Status: Active 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, [employer] Status: Active Exercise History Comments: Moderate, walking 2-3 Status: Active Living Situation Comments: , Lives with spouse Status: Active No Drug Use Status: Active Tobacco/Smoke Exposure Comments: quit 15 yrs agosame status 06/05/11 Status: Active Vital Signs Date Test Result Details :30 Pulse 72 /min Comments: Pattern: Regular Respiration [...] Calculated 1.96 m2 Head Circumference 0.00 cm 76-Bkf-436148:00 Temperature 98.3 f Comments: Method: Oral Pulse [...] Description Value Details :24 HgA1C , Office (09842) HgA1C , Office 5.9 % (Normal) Range: 4.6 - 7.1 :24 Blood Glucose , Office (72828) Blood Glucose , Office 132 (Normal) :15 Lactic Acid Comments: Yes/No query for Sepsis Lactate Rule [facility] [address] [place], [place], [address] LACTIC ACID 1.2 mmol/L (Normal) Range: 0.4-2.0 5-Grg-830733:10 CBC W/Diff, Automated Comments: [facility] [address] [place], [place], [address] Absolute Lymph 0.73 {X10_3/ul} (Abnormal) Range: 0.83-4.51 [...] 4.2-5.4 WBC 12.4 K/mm3 (Abnormal) Range: 4.4-11.0 2-Rpp-812825:10 Comprehensive Metabolic Profil Comments: [facility] [address] [place], [place], [address] GAP 7 (Normal) Range: 5-15 CO2 28.0 [...] A.D.A. criteria.Please note revised GLUCOSE reference range irxddhctd03/02/2018. 0-Pcp-036074:10 Lactic Acid Comments: Yes/No query for Sepsis Lactate Rule [facility] [address] [place], [place], [address] LACTIC ACID 1.6 mmol/L (Normal) Range: 0.4-2.0 0-Mpy-807042:10 Partial Thromboplast Time Comments: [facility] [address] [place], [place], [address](537) PTT 26.9 s (Normal) Range: 24.1-36.2 7-Fjd-642781:10 Prothrombin Time w/INR Comments: [facility] [address] [place], [place], [address] INR 1.0 (Normal) PROTIME 13.1 s (Normal) Range: 11.7-14.9 :15 HgA1C , Office (94564) HgA1C , Office 5.6 % (Normal) Range: 4.6 - 7.1 :15 Blood Glucose , Office (70312) Blood Glucose , Office 135 (Normal) 66-Bkj-615593:17 Bedside Glucose Comments: [facility] [address] [place] [address] BEDSIDE GLU 126 mg/dL (Abnormal) Range: 70-110 Comments: MANAGEMENT OF PATIENT CARE PER NURSING PROTOCOL 24-May-2017 MISCELLANEOUS SPECIMEN See Note (Normal) Comments: [facility] [address] [place], [address] 7:30 Comments: Patient: JESSICA RODRIGUEZ : 1955 (62/F) Acct Num: [id number] Phys: Castillo MCMILLAN,Hodan Unit Num: [id number] Loc: [facility] [place] Specimen: [id number] Received: 05/24/171036 Spec Type: MIS C TISSUES TISSUES: A. [...] The lymph nodes are submitted in entirety. Private Duty Aide sections are submitted as follows: 1 multiple [...] dog ear. No mass lesion is identified. Private Duty Aide sections are submitted in four cassettes. / SJ:lilibeth 05/24/17 TC:0 CPT: 16258, 36954 HEADER OPERATION: Excision lymph node, axillary PRE-OP DIAGNOSIS: Left breast cancer, invasive ductal, ER/HI positive, HER2 negative, bulky adenopathy of left axilla TISSUE SUBMITTED: A Left axillary contents, B Dog ear MICROSCOPIC DESCRIPTION Slides are reviewed. A. The largest lymph node contains benign histiocytic proliferation, fibrosis and minimal chronic inflammation co nsistent with previous biopsy and resection (S18990). Immunohistochemistry ([id number]) supports the presence of isolated metastatic tumor cells in one out of seven lymph nodes. MICROSCOPIC DIAGNO SIS A. Left axillary contents, regional lymphadenectomy: Isolated metastatic tumor cells in one of seven lymph nodes. B. Dog ear, excision: Skin with attached fibrofatty tissue with reactive and reparative change and suture granulomas. No evidence of malignancy. AM:lilibeth 05/28/17 Signed Sotero Cary 05/30/17 <signature on file> 75-Ymp-68016:44 Bedside Glucose Comments: [facility] [address] [place], [place] [address] BEDSIDE GLU 178 mg/dL (Abnormal) Range: 70-110 Comments: MANAGEMENT OF PATIENT CARE PER NURSING PROTOCOL : IMMUNOHISTOCHEMISTRY See Note (Normal) Comments: [facility] [address] [place], [place], [address] 00 Comments: Patient: JESSICA RODRIGUEZ : 1955 (62/F) Acct Num: [id number] Phys: Hodan Chong MD Unit Num: [id number] Loc: [facility] [place] Specimen: [id number] Received: 05/28/171425 Spec Type: IMM JOSELO TISSUES TISSUES: A. Axilla, NOS SPECIMEN INFORMATION: Tissue Source: A Left axillary contents Clinical Info: Left breast cancer Specimen Number: [id number] A1, A2, A4, A5, A7 CPT code: 48253, 91967 x4 METHODOLOGY: Deparaffinized sections of prefer/formalin-fixed tissue [...] and their performance characteristics dete rmined by [facility]. They may not have been cleared or approved by the U.S. Food and Drug Administration. The FDA has determined that such clearance or approval is not nece ssary. INTERPRETATION: A. Left axillary contents: Isolated metastatic tumor cells present in one out of seven lymph nodes. AM:lilibeth 05/30/17 PHYSICIAN AND INSTITUTION [address] [address] Signed Sotero Cary 05/30/17 <signature on file> 2-Pvk-601318:05 Bedside Glucose Comments: [facility] [address] [place] [address] [place] [address] BEDSIDE GLU 162 mg/dL (Abnormal) Range: 70-110 Comments: MANAGEMENT OF PATIENT CARE PER NURSING PROTOCOL 20-Apr-20179:32 Bedside Glucose Comments: [facility] [address] [place] [address] [place] [address] BEDSIDE GLU 137 mg/dL (Abnormal) Range: 70-110 Comments: MANAGEMENT OF PATIENT CARE PER NURSING PROTOCOL 19-Apr-20179:17 Basic Metabolic Profile (BMP) Comments: [facility] [address] [place], [address] GAP 9 (Normal) Range: 5-15 [...] A.D.A. criteria.Please note revised GLUCOSE reference range zuyekpzrq32/02/2018. 19-Apr-20179:17 CBC-Complete Blood Cnt No Diff Comments: [facility] [address] [place], [place], [address] MPV 9.4 fL (Normal) Range: 6.2-12.0 PLT [...] 4.2-5.4 WBC 8.1 K/mm3 (Normal) Range: 4.4-11.0 :17 Hemoglobin A1c Comments: [facility] [address] [place], [place], [address] HGB A1C 6.3 % (Normal) Range: 4.2-6.3 BREAST BIOPSY (CHOOSE SITE) See Note (Normal) Comments: [facility] [address] [place], [place], [address] 813:15 Comments: Patient: JESSICA RODRIGUEZ : 1955 (62/F) Acct Num: [id number] Phys: Hodan Chong MD Unit Num: [id number] Loc: [facility] Specimen: [id number] Received: 04/06/17 - 1201 Spec Type: BREAST BX TISSUES TISSUES: Left breast, NOS COMMENT Immunohistochemistry ([id number]) supports the above diagnosis. ER/HI/Dir5cag studies are being performed on sections of tumor and the results from this study will be reported separately ([id number]). Please make reference to previous specimen ([id number]) left breast, core biopsy with diagnosis of fibrocystic change wi th associated microcalcifications. GROSS DESCRIPTION Received is one container labeled with the patient's name and not further designated. The specimen consists of multiple elongated fragments o f bagley-yellowfibroadipose tissue that in aggregate measure 3 x 2 x 0.1 cm. The entire specimen is submitted in one cassette. / SJ:lilibeth 04/06/17 TC:0 CPT: 54228 HEADER OPERATION: Ultrasound-guided left breast needle core biopsy PRE-OP DIAGNOSIS: Abnormal left mammogram/ultrasound TISSUE SUBMITTED: Left breast needle core biopsy ISCHEMIC TIME: 3 minutes FIXATION TIME: 54.5 hours MICROSCOPIC DESCRIPTION Slides are reviewed. MICROSCOPIC DIAGNOSIS Left breast, ultrasound-guided needle core biopsy: Invasive ductal carcinoma, nuclear grade 3 (1 cm in greatest length) . See comment. SJ:lilibeth 04/09/17 Signed Ildefonso Skinner 04/10/17 <signature on file> IMMUNOHISTOCHEMISTRY See Note (Normal) Comments: [facility] [address] [place], [place], [address] 80:00 Comments: Patient: JESSICA RODRIGUEZ : 1955 (62/F) Acct Num: [id number] Phys: Hodan Chong MD Unit Num: [id number] Loc: [facility] Specimen: [id number] Received: 04/09/170 Spec Type: IMMUNO TISSUES TISSUES: Left breast, NOS SPECIMEN INFORMATION: Tissue Source: Left breast needle core biopsy Clinical Info: Abnormal left mammogram/ultrasound Spe shilpa Number: [id number] CPT code: 68538, 72567 x4, 97766 x3 METHODOLOGY: Deparaffinized sections of prefer/formalin-fixed tissue or PAP/DQ stained slides are incubated with monoclonal/polyclonal a ntibodies/oligonucleotide probes. Localization is made via biotin free immunoperoxidase method. Appropriate controls are performed and reacted as expected. Results on target cell population are indic ated in the following table: RESULTS: ANTIBODY / CLONE RESULT E-Cad (ECH-6) positive CK8 (83cgqwX50) positive CK5-6 (D5 AND 1684) nega tive Ki-67 (30-9) positive, moderate P53 (DO-7) positive MORPHOMETRIC ANALYSIS ER (clone 6F11) >95% , strong HI (clone 16/1E2) variable, 0-11%, weak Her- 2Neu [...] recommended for all equivocal cases. Positivity/negativity for ER/HI is reported if > or < 1% of the tumor cells are immuno- reactive, respectively. The ASCO/C AP criteria is used for scoring. Reference: Journal of Clinical Oncology, 2013; 31:5732-7945 AND 2009; 16:1655-1639. Duration of fixation: 54.5 Hrs; Sample Adequate: Yes. These assays have not bee n validated on decalcified tissues. Results should beinterpreted with caution given the likelihood of false negativity on decalcifiedspecimens. These tests were developed and their performance amanda cteristics determined by [facility]. They may not have been cleared or approved by the U.S. Food and Drug Administration. The FDA has determined that such clearance or appro esequiel is not necessary. INTERPRETATION: Left breast, ultrasound-guided needle core biopsy: Invasive ductal carcinoma, nuclear grade 3. Positive for estrogen receptors (favorable prognostic indicator). Positive for progesterone receptors (favorable prognostic indicator). Negative for overexpression of MVH2fir. SJ:lilibeth 04/10/17 PHYSICIAN AND INSTITUTION [facility] [address] [place], [place] [address] Signed Ildefonso Skinner 04/10/17 <signature on file> COLON BIOPSY (CHOOSE SITE) See Note (Normal) Comments: [facility] [address] [place], [address] 811:08 Comments: Patient: JESSICA RODRIGUEZ : 1955 (61/F) Acct Num: [id number] Phys: Yovani Mcduffie Unit Num: [id number] Loc: [facility] Specimen: [id number] Received: 03/01/17 - 1800 Spec Type: COLON BX TISSUES TISSUES: [...] one cassette. / SJ:lilibeth 03/02/17 TC:1 CPT: 43673 x2 HEADER OP ERATION: Colonoscopy with polypectomy [...] <signature on file> :14 Metabolic Panel, Basic (34425) Comments: PATIENT NOT FASTINGPERFORMED BY: [facility] [address] [facility] [id number] Calcium, Serum 9.2 mg/dL (Normal) Range: 8.7-10.3 [...] (Abnormal) Range: 65-99 :58 HgA1C , Office (34565) HgA1C , Office 6.8 % (Normal) Range: 4.6 - 7.1 :58 Blood Glucose , Office (64555) Blood Glucose , Office 166 (Normal) :17 CBC W/Diff, Automated Comments: [facility] [address] [place], [place], [address] Absolute Lymph 1.78 {X10_3/ul} (Normal) Range: 0.83-4.51 [...] 4.2-5.4 WBC 7.4 K/mm3 (Normal) Range: 4.4-11.0 59-Xsy-38242:17 Comprehensive Metabolic Profil Comments: [facility] [address] [place], [address] GAP 7 (Normal) Range: 5-15 CO2 29.0 [...] per A.D.A. criteria. :11 HgA1C , Office (08943) HgA1C , Office 6.3 % (Normal) Range: 4.6 - 7.1 :11 Blood Glucose , Office (24165) Blood Glucose , Office 154 (Normal) :56 CALCIFIDIOL (64672) VIT D 25 Comments: PATIENT WAS FASTINGPERFORMED BY: PharmMD6370 [facility] [place] [id number] Vitamin D, 25-Hydroxy 28.4 ng/mL (Abnormal) Range: 30.0-100.0 Comments: Vitamin D deficiency has been defined by the [place] of[place]icine and an Endocrine Society practice guideline as alevel of serum 25-OH vitamin D less than 20 ng/mL (1,2).The Endocrine Society went on to further define vitamin Dinsufficiency as a level between 21 and 29 ng/mL (2).1. IOM ([place] of Medicine). 2010. Dietary reference intakes for calcium and D. [place]: The National Academies Press.2. Sara MF, Johanna NC, Rosanna SOMMER, et al. Evaluation, treatment, and prevention of vitamin D deficiency: an Endocrine Society clinical practice guideline. JCEM. 2010; 96(7):1911-30. :56 TSH (85210) Comments: PATIENT WAS FASTINGPERFORMED BY: [employer] [id number] TSH 0.824 {uIU/mL} (Normal) Range: 0.450-4.500 03-Olh-107886:56 MICROALBUMIN: CREATININE RATIO Comments: PATIENT WAS FASTINGPERFORMED BY: [facility] [facility]Atl[facility] InstituteRhvzte9333 [facility] [id number] (68699) AND (85293) Microalb/Creat Ratio 8.0 {mg/g_creat} (Normal) Range: 0.0-30.0 Microalbumin, Urine 8.3 ug/mL (Normal) Creatinine, Urine 103.7 mg/dL (Normal) 55-Acs-829213:56 METABOLIC PANEL, COMPREHENSIVE Comments: PATIENT WAS FASTINGPERFORMED BY: [facility] NetworksAtl[facility] InstituteAcsqju0765 [facility] [id number] (20423) ALT (SGPT) 14 [iU]/L (Normal) Range: 0-32 [...] Glucose, Serum 145 mg/dL (Abnormal) Range: 65-99 :56 CBC W/AUTO DIFF WBC (65552) Comments: PATIENT WAS FASTINGPERFORMED BY: [employer] Xxufaz2310 [facility] [id number] Immature Grans (Abs) 0.0 {x10E3/uL} (Normal) Range: [...] {x10E3/uL} (Normal) Range: 3.4-10.8 :56 LIPID PANEL (21082) Comments: PATIENT WAS FASTINGPERFORMED BY: [facility] NetworksAtl[facility] InstituteIolzhi3389 [facility] [id number] LDL/HDL Ratio 1.6 {ratio_units} (Normal) Range: 0.0-3.2 [...] (Normal) Range: 100-199 :27 HgA1C , Office (14738) HgA1C , Office 7.6 % (Abnormal) Range: 4.6 - 7.1 :27 Blood Glucose , Office (57585) Blood Glucose , Office 192 (Normal) 07-Fno-749696:11 HgA1C , Office (20555) HgA1C , Office 6.8 % (Normal) Range: 4.6 - 7.1 :33 Microscopic Examination Comments: PATIENT WAS FASTINGPERFORMED BY: PharmMD6370 [facility] [id number] Bacteria Few (Normal) Mucus Threads Present (Normal) Epithelial Cells (non renal) 0-10 {/hpf} (Normal) Range: 0 - 10 RBC 3-10 {/hpf} (Abnormal) Range: 0 - 2 WBC 0-5 {/hpf} (Normal) Range: 0 - 5 :31 Throat Culture (69482) Comments: PATIENT NOT FASTINGPERFORMED BY: PharmMD6370 [facility] [id number] Information: SRC:TH Result 1 BETAGC (Abnormal) Comments: [...] report (Abnormal) :55 Influenza A&B Viral Culture (02028) :55 Rapid Flu (13092 x 2) Influenza A Ag negative (Normal) :43 Rapid Strep Test, Office (28288) Rapid Strep Test, Office Negative (Normal) :33 CALCIFIDIOL (45478) VIT D 25 Comments: PATIENT WAS FASTINGPERFORMED BY: [employer] [facility] [id number] Vitamin D, 25-Hydroxy 30.8 ng/mL (Normal) Range: 30.0-100.0 Comments: Vitamin D deficiency has been defined by the [place] of[place]icine and an Endocrine Society practice guideline as alevel of serum 25-OH vitamin D less than 20 ng/mL (1,2).The Endocrine Society went on to further define vitamin Dinsufficiency as a level between 21 and 29 ng/mL (2).1. IOM ([place] of Medicine). 2010. Dietary reference intakes for calcium and D. [place]: The National Academies Press.2. Sara MF, Johanna NC, Rosanna SOMMER, et al. Evaluation, treatment, and prevention of vitamin D deficiency: an Endocrine Society clinical practice guideline. JCEM. 2010; 96(7):1911-30. :33 TSH (02348) Comments: PATIENT WAS FASTINGPERFORMED BY: [employer]70 [facility] [id number] TSH 1.190 {uIU/mL} (Normal) Range: 0.450-4.500 :33 URINALYSIS, W/ MICRO (27985) Comments: PATIENT WAS FASTINGPERFORMED BY: [employer] [facility] [id number] Microscopic Examination See below: (Normal) Comments: Microscopic was indicated and was performed. Nitrite, Urine Negative (Normal) Urobilinogen,Semi-Qn 0.2 mg/dL (Normal) Range: 0.2-1.0 Bilirubin Negative (Normal) Occult Blood 1+ (Abnormal) Ketones Negative (Normal) Glucose Negative (Normal) Protein Negative (Normal) WBC Esterase 1+ (Abnormal) Appearance Clear (Normal) Urine-Color Yellow (Normal) pH 6.5 (Normal) Range: 5.0-7.5 Specific [place] 1.020 (Normal) Range: 1.005-1.030 :33 MICROALBUMIN: CREATININE RATIO Comments: PATIENT WAS FASTINGPERFORMED BY: NextG NetworksAtlantic Rehabilitation InstituteUmsokq2744 [facility] [id number] (53856) AND (31774) Microalb/Creat Ratio 7.7 {mg/g_creat} (Normal) Range: 0.0-30.0 Microalbumin, Urine 7.4 ug/mL (Normal) Creatinine, Urine 96.3 mg/dL (Normal) :33 METABOLIC PANEL, COMPREHENSIVE Comments: PATIENT WAS FASTINGPERFORMED BY: [employer] Pekqsf6304 [facility] [id number] (73765) ALT (SGPT) 16 [iU]/L (Normal) Range: 0-32 [...] Glucose, Serum 167 mg/dL (Abnormal) Range: 65-99 :33 LIPID PANEL (63804) Comments: PATIENT WAS FASTINGPERFORMED BY: [employer]70 [facility] [id number] LDL/HDL Ratio 2.0 {ratio_units} (Normal) Range: 0.0-3.2 [...] Range: 100-199 :33 CBC W/AUTO DIFF WBC (62065) Comments: PATIENT WAS FASTINGPERFORMED BY: [employer]70 [facility] [id number] Immature Grans (Abs) 0.0 {x10E3/uL} (Normal) Range: [...] Range: 3.4-10.8 :06 Blood Glucose , Office (61520) Blood Glucose , Office 130 (Normal) :06 HgA1C , Office (17981) HgA1C , Office 6.3 % (Normal) Range: 4.6 - 7.1 :06 Rapid Strep Test, Office (87125) Rapid Strep Test, Office Negative (Normal) :48 HgA1C , Office (83965) HgA1C , Office 6.3 % (Normal) Range: 4.6 - 7.1 :48 Blood Glucose , Office (25644) Blood Glucose , Office 121 (Normal) :09 MICROALBUMIN: CREATININE RATIO Comments: PATIENT WAS FASTINGPERFORMED BY: LabLafayette Regional Health CenterRvglsr0477 [facility] [id number] (14059) AND (25237) Microalb/Creat Ratio 3.7 {mg/g_creat} (Normal) Range: 0.0-30.0 Microalbumin, Urine 3.3 ug/mL (Normal) Creatinine, Urine 88.7 mg/dL (Normal) :09 URINALYSIS (55217) Comments: PATIENT WAS FASTINGPERFORMED BY: LabRepka.comAtlantic Rehabilitation InstituteFlimav4491 [facility] [id number] Microscopic Examination MICNIP (Normal) Comments: Microscopic not indicated and not performed. Nitrite, Urine Negative (Normal) Urobilinogen,Semi-Qn 0.2 mg/dL (Normal) Range: 0.2-1.0 Bilirubin Negative (Normal) Occult Blood Negative (Normal) Ketones Negative (Normal) Glucose Negative (Normal) Protein Negative (Normal) WBC Esterase Negative (Normal) Appearance Clear (Normal) Urine-Color Yellow (Normal) pH 6.0 (Normal) Range: 5.0-7.5 Specific [place] 1.017 (Normal) Range: 1.005-1.030 :09 TSH (00953) Comments: PATIENT WAS FASTINGPERFORMED BY: [facility] Hffpbw7115 [facility] [id number] TSH 1.390 {uIU/mL} (Normal) Range: 0.450-4.500 :09 CBC WITH MANUAL DIFF Comments: PATIENT WAS FASTINGPERFORMED BY: LabCoAtlantic Rehabilitation InstitutePudsha3888 [facility] [id number] Information: [id number] (03968) Immature Grans (Abs) 0.0 {x10E3/uL} (Normal) Range: [...] Panel, Comprehensive Comments: PATIENT WAS FASTINGPERFORMED BY: LabCoAtlantic Rehabilitation InstituteQgwaag9611 [facility] [id number] (76914) ALT (SGPT) 16 [iU]/L (Normal) Range: 0-32 [...] Glucose, Serum 126 mg/dL (Abnormal) Range: 65-99 :09 Lipid Panel (64480) Comments: PATIENT WAS FASTINGPERFORMED BY: [employer]70 [facility] [id number] LDL/HDL Ratio 2.0 {ratio_units} (Normal) Range: 0.0-3.2 [...] 187 mg/dL (Normal) Range: 100-199 :09 CALCIFEDIOL (23958) Comments: PATIENT WAS FASTINGPERFORMED BY: SpectrumDNAlin6370 [facility] [id number] Vitamin D, 25-Hydroxy 33.6 ng/mL (Normal) Range: 30.0-100.0 Comments: Vitamin D deficiency has been defined by the [place] of[place]icine and an Endocrine Society practice guideline as alevel of serum 25-OH vitamin D less than 20 ng/mL (1,2).The Endocrine Society went on to further define vitamin Dinsufficiency as a level between 21 and 29 ng/mL (2).1. IOM ([place] of Medicine). 2010. Dietary reference intakes for calcium and D. [place]: The National AcademHealthWave Press.2. Sara MF, Johanna NC, Rosanna SOMMER, et al. Evaluation, treatment, and prevention of vitamin D deficiency: an Endocrine Society clinical practice guideline. JCEM. 2010; 96(7):1911-30. -:15 HgA1C , Office (04533) HgA1C , Office 6.7 % (Normal) Range: 4.6 - 7.1 :15 Blood Glucose , Office (66622) Blood Glucose , Office 142 (Normal) :18 Microscopic Examination Comments: PATIENT WAS FASTINGPERFORMED BY: [facility] Jlisel9381 [facility] [id number] Bacteria None seen (Normal) Mucus Threads Present (Normal) Epithelial Cells (non renal) 0-10 {/hpf} (Normal) Range: 0 - 10 RBC 0-2 {/hpf} (Normal) Range: 0 - 2 WBC 0-5 {/hpf} (Normal) Range: 0 - 5 :01 CBC W/Diff, Automated Comments: [facility] [address]qyitxgu[address] [place], [place], [id number] Absolute Lymph 1.22 {X10_3/ul} (Normal) Range: 0.83-4.51 [...] 4.2-5.4 WBC 8.8 K/mm3 (Normal) Range: 4.4-11.0 6-Xpd-450133:01 Comprehensive Metabolic Profil Comments: [facility] Irwsksdiwf23[address] [place], [place], [address] GAP 7 (Normal) Range: 5-15 CO2 29.0 [...] DIABETES MELLITUS per A.D.A. criteria. :18 TSH (41031) Comments: PATIENT WAS FASTINGPERFORMED BY: [employer] [facility] [id number] TSH 1.070 {uIU/mL} (Normal) Range: 0.450-4.500 :18 URINALYSIS, W/ MICRO (14416) Comments: PATIENT WAS FASTINGPERFORMED BY: [employer] [facility] [id number] Microscopic Examination See below: (Normal) Comments: Microscopic was indicated and was performed. Nitrite, Urine Negative (Normal) Urobilinogen,Semi-Qn 0.2 mg/dL (Normal) Range: 0.2-1.0 Bilirubin Negative (Normal) Occult Blood Trace (Abnormal) Ketones Negative (Normal) Glucose Negative (Normal) Protein Negative (Normal) WBC Esterase Negative (Normal) Appearance Clear (Normal) Urine-Color Yellow (Normal) pH 6.5 (Normal) Range: 5.0-7.5 Specific [place] 1.015 (Normal) Range: 1.005-1.030 :18 MICROALBUMIN: CREATININE RATIO Comments: PATIENT WAS FASTINGPERFORMED BY: [employer] Ekxbpr0642 [facility] [id number] (12543) AND (40837) Microalb/Creat Ratio 5.4 {mg/g_creat} (Normal) Range: 0.0-30.0 Microalbumin, Urine 5.9 ug/mL (Normal) Range: 0.0-17.0 Creatinine, Urine 109.1 mg/dL (Normal) Range: 15.0-278.0 :18 CBC W/AUTO DIFF WBC Comments: PATIENT WAS FASTINGPERFORMED BY: [employer] Ymsqdt8799 [facility] [id number] Information: [id number] (84755) Immature Grans (Abs) 0.0 {x10E3/uL} (Normal) Range: [...] PANEL, COMPREHENSIVE Comments: PATIENT WAS FASTINGPERFORMED BY: [facility]Up [facility] System6370 [facility] [id number] (82565) ALT (SGPT) 18 [iU]/L (Normal) Range: 0-32 [...] mg/dL (Abnormal) Range: 65-99 :18 LIPID PANEL (73902) Comments: PATIENT WAS FASTINGPERFORMED BY: LabCoAtlantic Rehabilitation InstituteYmgoru2945 [facility] [id number] LDL/HDL Ratio 1.8 {ratio_units} (Normal) Range: 0.0-3.2 [...] 199 mg/dL (Normal) Range: 100-199 :18 CALCIFIDIOL (94984) VIT D 25 Comments: PATIENT WAS FASTINGPERFORMED BY: LabCoAtlantic Rehabilitation InstituteZnaoom0415 [facility] [id number] Vitamin D, 25-Hydroxy 27.9 ng/mL (Abnormal) Range: 30.0-100.0 Comments: Vitamin D deficiency has been defined by the [place] of[place]icine and an Endocrine Society practice guideline as alevel of serum 25-OH vitamin D less than 20 ng/mL (1,2).The Endocrine Society went on to further define vitamin Dinsufficiency as a level between 21 and 29 ng/mL (2).1. IOM ([place] of Medicine). 2010. Dietary reference intakes for calcium and D. [place]: The National AcademHealthWave Press.2. Johanna Gama, Rosanna SOMMER, et al. Evaluation, treatment, and prevention of vitamin D deficiency: an Endocrine Society clinical practice guideline. JCEM. 2010; 96(7):1911-30. :08 HgA1C , Office (89717) HgA1C , Office 6.3 % (Normal) Range: 4.6 - 7.1 :08 Blood Glucose , Office (56847) Blood Glucose , Office 253 (Normal) :20 CALCIFIDIOL (93888) VIT D Comments: PATIENT WAS FASTINGPERFORMED BY: LabCoAtlantic Rehabilitation InstituteDkqoql4399 [facility] [id number] Information: [id number] Vitamin D, 25-Hydroxy 32.3 ng/mL (Normal) Range: 30.0-100.0 Comments: Vitamin D deficiency has been defined by the [place] of[place]icine and an Endocrine Society practice guideline as alevel of serum 25-OH vitamin D less than 20 ng/mL (1,2).The Endocrine Society went on to further define vitamin Dinsufficiency as a level between 21 and 29 ng/mL (2).1. IOM ([place] of [place]). 2010. Dietary reference intakes for calcium and D. [place]: The National SegundoHogar Press.2. Johanna Gama, Rosanna SOMMER, et al. Evaluation, treatment, and prevention of vitamin D deficiency: an Endocrine Society clinical practice guideline. JCEM. 2010; 96(7):1911-30. :52 HgA1C , Office (44096) HgA1C , Office 6.4 % (Normal) Range: 4.6 - 7.1 :52 Blood Glucose , Office (60676) Blood Glucose , Office 124 (Normal) :03 CBC W/Diff, Automated Comments: Test performed at:[facility] Zleibqlnrf8[address] [place] [address] Absolute Lymph 1.29 {X10_3/ul} (Normal) Range: 0.83-4.51 [...] 4.2-5.4 WBC 5.6 K/mm3 (Normal) Range: 4.4-11.0 :03 Comprehensive Metabolic Profil Comments: Test performed at:[facility] Vnahcctyol[address] [place] [address] GAP 7 (Normal) Range: 5-15 CO2 29.0 [...] 126 mg/dLsuggests DIABETES MELLITUS per A.D.A. criteria. 18-Aug-20148:43 Hepatic Function Panel (7) Comments: PATIENT WAS FASTINGPERFORMED BY: LabCoAtlantic Rehabilitation InstituteTaplki8059 [facility] [id number] ALT (SGPT) 16 [iU]/L (Normal) Range: 0-32 AST (SGOT) 18 [iU]/L (Normal) Range: 0-40 Alkaline Phosphatase, S 71 [iU]/L (Normal) Range: 39-117 Bilirubin, Direct 0.12 mg/dL (Normal) Range: 0.00-0.40 Bilirubin, Total 0.4 mg/dL (Normal) Range: 0.0-1.2 Albumin, Serum 4.4 g/dL (Normal) Range: 3.5-5.5 Protein, Total, Serum 6.5 g/dL (Normal) Range: 6.0-8.5 :43 Lipid Panel With LDL/HDL Comments: PATIENT WAS FASTINGPERFORMED BY: Lab[facility] Lwqtpl2516 [address] [place] [id number] Information: [id number] Ratio LDL/HDL Ratio 1.4 {ratio_units} (Normal) Range: [...] Cholesterol, Total 158 mg/dL (Normal) Range: 100-199 89-Snd-991048:13 CBC W/Diff, Automated Comments: Test performed at:[facility] Azdnuuegri[address] [place] [address] Absolute Lymph 2.30 {X10_3/ul} (Normal) Range: 0.83-4.51 [...] 4.2-5.4 WBC 8.2 K/mm3 (Normal) Range: 4.4-11.0 46-Pah-949453:13 Comprehensive Metabolic Profil Comments: Test performed at:[facility] Qofijcqmvf217[address] [place], [place] [id number] ; ordered by nathan GAP 7 (Normal) [...] <126 mg/dLsuggests IMPAIRED HOMEOSTASIS per A.D.A. criteria. :18 CBC W/Diff, Automated Comments: Test performed at:[facility] Kjzougtzxp64[address] [place] [address] Absolute Lymph 2.19 {X10_3/ul} (Normal) Range: 0.83-4.51 [...] 4.2-5.4 WBC 6.3 K/mm3 (Normal) Range: 4.4-11.0 96-Nrr-315420:18 Comprehensive Metabolic Profil Comments: Test performed at:[facility] Rrarsvfnsb7[address] [place], [place] [id number] GAP 4 (Abnormal) Range: 5-15 CO2 32.0 [...] <126 mg/dLsuggests IMPAIRED HOMEOSTASIS per A.D.A. criteria. 79-Qxw-324014:01 LUKE CULTURE-OTHER (89284) Comments: PATIENT NOT FASTINGPERFORMED BY: [facility] Kgkzzq0299 [facility] [id number] Information: SRC:THRT [id number] Result 1 RRF (Normal) Comments: Routine respiratory radha Upper Respiratory Culture Final report (Normal) 39-Ajc-44788:11 Winn Client Glucose Comments: Test performed at:[facility] Athkliaxeq7[address] [place], [place] [address] GLU 124 mg/dL (Abnormal) Range: 70-110 Comments: Fasting Glucose result from 110 to <126 mg/dLsuggests IMPAIRED HOMEOSTASIS per A.D.A. criteria. 78-Enw-40674:11 Winn Client Lipid Profile Comments: Test performed at:[facility] Macsgqrxov[address] [place] [address] VLDL 32 mg/dL (Normal) Range: 5-40 LDL [...] 200-240 mg/dL Borderline >240 mg/dL High Risk 18-Dec-20138:01 Microscopic Examination Comments: PATIENT WAS FASTINGPERFORMED BY: LabRepka.com Pchiug0683 [facility] [place] [id number] Bacteria None seen (Normal) Mucus Threads Present (Normal) Epithelial Cells (non renal) 0-10 {/hpf} (Normal) Range: 0 - 10 RBC 0-2 {/hpf} (Normal) Range: 0 - 2 WBC 0-5 {/hpf} (Normal) Range: 0 - 5 :01 Vitamin D Hydroxy (49147) Comments: PATIENT WAS FASTINGPERFORMED BY: [facility] Zweffv5083 [facility] [id number] Vitamin D, 25-Hydroxy 31.0 ng/mL (Normal) Range: 30.0-100.0 Comments: Vitamin D deficiency has been defined by the [place] of[place]icine and an Endocrine Society practice guideline as alevel of serum 25-OH vitamin D less than 20 ng/mL (1,2).The Endocrine Society went on to further define vitamin Dinsufficiency as a level between 21 and 29 ng/mL (2).1. IOM ([place] of [place]). 2010. Dietary reference intakes for calcium and D. [place]: The National Academies Press.2. Sara MF, Johanna NC, Rosanna SOMMER, et al. Evaluation, treatment, and prevention of vitamin D deficiency: an Endocrine Society clinical practice guideline. JCEM. 2010; 96(7):1911-30. TSH (17654) Comments: PATIENT WAS FASTINGPERFORMED BY: [employer] The[employer]in [place] [id number] TSH 0.986 {uIU/mL} (Normal) Range: 0.450-4.500 URINALYSIS, W/ MICRO (86396) Comments: PATIENT WAS FASTINGPERFORMED BY: tuta.coAt[facility]Park [id number] Microscopic Examination See below: (Normal) Comments: Microscopic was indicated and was performed. Microscopic Examination MICRON (Normal) Comments: Microscopic follows if indicated. Nitrite, Urine Negative (Normal) Urobilinogen,Semi-Qn 0.2 mg/dL (Normal) Range: 0.0-1.9 Bilirubin Negative (Normal) Occult Blood Negative (Normal) Ketones Negative (Normal) Glucose Negative (Normal) Protein Negative (Normal) WBC Esterase Negative (Normal) Appearance Clear (Normal) Urine-Color Yellow (Normal) pH 6.5 (Normal) Range: 5.0-7.5 Specific [place] 1.018 (Normal) Range: 1.005-1.030 MICROALBUMIN: CREATININE RATIO Comments: PATIENT WAS FASTINGPERFORMED BY: tuta.coAt[facility]Park [id number] (42531) AND (16161) Microalb/Creat Ratio 2.1 {mg/g_creat} (Normal) Range: 0.0-30.0 Microalbumin, Urine 2.0 ug/mL (Normal) Range: 0.0-17.0 Creatinine, Urine 93.5 mg/dL (Normal) Range: 15.0-278.0 : METABOLIC PANEL, COMPREHENSIVE Comments: PATIENT WAS FASTINGPERFORMED BY: tuta.coAt[facility]Park [id number] (99333) ALT (SGPT) 12 [iU]/L (Normal) Range: 0-32 [...] Glucose, Serum 130 mg/dL (Abnormal) Range: 65-99 18-Dec-20138:01 LIPID PANEL (52845) Comments: PATIENT WAS FASTINGPERFORMED BY: LabCoAtlantic Rehabilitation InstituteUoelnx4155 [facility] [id number] LDL/HDL Ratio 2.3 {ratio_units} (Normal) Range: 0.0-3.2 [...] Range: 100-199 :01 CBC W/AUTO DIFF WBC (99906) Comments: PATIENT WAS FASTINGPERFORMED BY: LabCoAtlantic Rehabilitation InstituteEjxnlh5544 [facility] [id number] Immature Grans (Abs) 0.0 {x10E3/uL} (Normal) Range: [...] (Normal) Range: 3.4-10.8 :25 HgA1C , Office (75748) HgA1C , Office 6.5 % (Normal) Range: 4.6 - 7.1 :25 Blood Glucose , Office (73840) Blood Glucose , Office 143 (Normal) :36 URINE LU[place] CULTURE (BALDO Comments: PATIENT NOT FASTINGPERFORMED BY: BRISEYDA [facility] Ddkdym3503 [address] [place] [id number] Information: SRC:UR [id number] COL COUNT) (24506) Result 1 PROTMP (Abnormal) Comments: Proteus mirabilis/gonccak322 Colonies/mLBeta hemolytic Streptococcus, group B10,000-25,000 colony forming [...] S Urine Final report Culture,Comprehensi (Abnormal) ve :17 Urinalysis, Office (88853) UA - LEUKOCYTE ESTERASE Large (Normal) UA - NITRITE Positive (Normal) URINE UROBILINGN BALDO TIMED Normal mg/dL (Normal) UA - PROTEIN Trace mg/dL (Normal) UA - PH 6.5 (Normal) UA - BLOOD Negative (Normal) UA - SPECIFIC GRAVITY 1.025 (Normal) UA - KETONES Moderate mg/dL (Normal) UA - BILIRUBIN Negative (Normal) UA - GLUCOSE Negative (Normal) 87-Aot-011188:42 CBCD ALC 1.95 {X10_3/ul} (Normal) Range: 0.83-4.51 [...] 4.2-5.4 WBC 6.5 K/mm3 (Normal) Range: 4.4-11.0 66-Xmg-748413:42 CMP GAP 5 (Normal) Range: 5-15 CO2 [...] 126 mg/dLsuggests DIABETES MELLITUS per A.D.A. criteria. 11-Ljk-206858:09 LUKE CULTURE-OTHER (02016) Comments: PATIENT NOT FASTINGPERFORMED BY: tuta.coAtrium Health SouthPark [id number] Information: SRC:THRNatalie [id number] Result 1 BETAGG (Abnormal) Comments: Beta hemolytic [...] 2011) Upper Respiratory Culture Final report (Abnormal) 22-Nxw-79104:09 Rapid Strep Test, Office (75139) Rapid Strep Test, Office Negative (Normal) 37-Kpj-82550:12 MICROALBUMIN: CREATININE RATIO Comments: PATIENT WAS FASTINGPERFORMED BY: [facility]a.coAt[facility] [id number] (02448) AND (90037) Microalb/Creat Ratio 6.3 {mg/g_creat} (Normal) Range: 0.0-30.0 Microalbumin, Urine 10.0 ug/mL (Normal) Range: 0.0-17.0 Creatinine, Urine 157.7 mg/dL (Normal) Range: 15.0-278.0 :12 CALCIFEDIOL (34966) Comments: PATIENT WAS FASTINGPERFORMED BY: CondoDomainUp [facility] System6370 [facility] [id number] Vitamin D, 25-Hydroxy 26.6 ng/mL (Abnormal) Range: 30.0-100.0 Comments: Vitamin D deficiency has been defined by the [place] ofGrant Hospitalcine and an Endocrine Society practice guideline as alevel of serum 25-OH vitamin D less than 20 ng/mL (1,2).The Endocrine Society went on to further define vitamin Dinsufficiency as a level between 21 and 29 ng/mL (2).1. IOM ([place] of Medicine). 2010. Dietary reference intakes for calcium and D. [place]: The National Academies Press.2. Sara MF, Johanna JOSEPH, Rosanna SOMMER, et al. Evaluation, treatment, and prevention of vitamin D deficiency: an Endocrine Society clinical practice guideline. JCEM. 2010; 96(7):1911-30. :12 CBC with manual diff Comments: PATIENT WAS FASTINGPERFORMED BY: [facility]6370 [facility] [id number] Information: [id number] (17345) Immature Grans (Abs) 0.0 {x10E3/uL} (Normal) Range: [...] (THYROID STIMULATING Comments: PATIENT WAS FASTINGPERFORMED BY: [facility]elloAt[facility] Health [id number] HORMONE) (06151) TSH 1.420 {uIU/mL} (Normal) Range: 0.450-4.500 :12 LIPID PANEL (76098) Comments: PATIENT WAS FASTINGPERFORMED BY: [employer] [facility] [id number] LDL/HDL Ratio 2.4 {ratio_units} (Normal) Range: 0.0-3.2 [...] Cholesterol, Total 208 mg/dL (Abnormal) Range: 100-199 :12 METABOLIC PANEL, COMPREHENSIVE Comments: PATIENT WAS FASTINGPERFORMED BY: [employer] [facility] [id number] (86095) ALT (SGPT) 18 [iU]/L (Normal) Range: 0-32 [...] (Abnormal) Range: 65-99 :21 HgA1C , Office (97855) HgA1C , Office 6.1 % (Normal) Range: 4.6 - 7.1 :21 Blood Glucose , Office (21300) Blood Glucose , Office 153 (Normal) 5-Vix-724751:54 CBCD ALC 2.36 {X10_3/ul} (Normal) Range: 0.83-4.51 [...] 4.2-5.4 WBC 6.1 K/mm3 (Normal) Range: 4.4-11.0 2-Lpa-844780:54 CMP GAP 7 (Normal) Range: 5-15 CO2 [...] 7-18 GLU 86 mg/dL (Normal) Range: 70-110 11-Wit-851283:04 CBCD ANC 3.8 {X10_3/uL} (Normal) Range: 2.0-7.7 [...] 4.2-5.4 WBC 6.1 K/mm3 (Normal) Range: 4.4-11.0 :04 CMP CO2 29.0 mmol/L (Normal) Range: 21.0-32.0 [...] 7-18 GLU 90 mg/dL (Normal) Range: 70-110 3-Qer-240905:49 Microscopic Examination Comments: PATIENT WAS FASTINGPERFORMED BY: [employer] [facility] Rnvkts8087 [facility] [id number] Bacteria None seen (Normal) Mucus Threads Present (Normal) Epithelial Cells (non renal) 0-10 {/hpf} (Normal) Range: 0 - 10 RBC 0-3 {/hpf} (Normal) Range: 0 - 3 WBC 0-5 {/hpf} (Normal) Range: 0 - 5 :09 HgA1C , Office (07411) HgA1C , Office 6.2 % (Normal) Range: 4.6 - 7.1 :09 Blood Glucose , Office (76538) Blood Glucose , Office 152 (Normal) :12 LIPID PANEL (52772) Comments: PATIENT WAS FASTINGPERFORMED BY: [employer] LabCoExari SystemsVwzdwr7761 [facility] [id number] LDL Cholesterol Calc 93 mg/dL (Normal) Range: 0-99 LDL/HDL Ratio 1.7 {ratio_units} (Normal) Range: 0.0-3.2 VLDL Cholesterol Huy 28 mg/dL (Normal) Range: 5-40 HDL Cholesterol 56 mg/dL (Normal) Comments: According to ATP-III Guidelines, HDL-C >59 mg/dL is considered anegative risk factor for CHD. Cholesterol, Total 177 mg/dL (Normal) Range: 100-199 Triglycerides 141 mg/dL (Normal) Range: 0-149 :12 TSH (74753) Comments: PATIENT WAS FASTINGPERFORMED BY: [employer] [facility] [id number] TSH 1.090 {uIU/mL} (Normal) Range: 0.450-4.500 :12 MICROALBUMIN: CREATININE RATIO Comments: PATIENT WAS FASTINGPERFORMED BY: [employer] [facility] [id number] (44818) AND (05002) Microalb/Creat Ratio 4.4 {mg/g_creat} (Normal) Range: 0.0-30.0 Creatinine, Urine 110.3 mg/dL (Normal) Range: 15.0-278.0 Microalbumin, Urine 4.9 ug/mL (Normal) Range: 0.0-17.0 :12 URINALYSIS, W/ MICRO (98199) Comments: PATIENT WAS FASTINGPERFORMED BY: [employer] [facility] [id number] Microscopic Examination See below: (Normal) Microscopic Examination MICRON (Normal) Comments: Microscopic follows if indicated. Nitrite, Urine Negative (Normal) Urobilinogen,Semi-Qn 0.2 mg/dL (Normal) Range: 0.0-1.9 Bilirubin Negative (Normal) Ketones Negative (Normal) Occult Blood Negative (Normal) Glucose Negative (Normal) Protein Negative (Normal) WBC Esterase Negative (Normal) Appearance Clear (Normal) Urine-Color Yellow (Normal) pH 7.0 (Normal) Range: 5.0-7.5 Specific [place] 1.021 (Normal) Range: 1.005-1.030 :12 METABOLIC PANEL, COMPREHENSIVE Comments: PATIENT WAS FASTINGPERFORMED BY: CB [facility]6370 [facility] [id number] (70889) ALT (SGPT) 14 [iU]/L (Normal) Range: 0-32 [...] MANUAL DIFF Comments: PATIENT WAS FASTINGPERFORMED BY: BRISEYDA LabCoAtlantic Rehabilitation InstitutePtsedj4387 [facility] [id number] Information: [id number] (18638) Immature Grans (Abs) 0.0 {x10E3/uL} (Normal) Range: [...] (Normal) Range: 3.4-10.8 :20 HgA1C , Office (35147) HgA1C , Office 6.2 % (Normal) Range: 4.6 - 7.1 :20 Blood Glucose , Office (00952) Blood Glucose , Office 116 (Normal) 21-Otm-478911:36 CULTURE, SPUTUM (78019) Comments: PATIENT NOT FASTINGPERFORMED BY: LabCoAtlantic Rehabilitation InstituteGgviml4624 [facility] [id number] Information: SRC:[facility] [id number] Result 1 RRF (Normal) Comments: Routine respiratory radha Lower Respiratory Culture Final report (Normal) :55 HgA1C , Office (40317) HgA1C , Office 6.2 % (Normal) Range: 4.6 - 7.1 :55 Blood Glucose , Office (54506) Blood Glucose , Office 188 (Normal) :28 LIPID PANEL (62489) Comments: PATIENT WAS FASTINGPERFORMED BY: NextG NetworksAtlantic Rehabilitation InstituteJmvldd8106 [facility] [id number] Information: ADD [id number] AND DRAW FEE 99 6660 LDL/HDL Ratio [...] (Normal) Range: 100-199 :06 HgA1C , Office (92126) HgA1C , Office 5.9 % (Normal) Range: 4.6 - 7.1 :06 Blood Glucose , Office (72985) Blood Glucose , Office 94 (Normal) :48 TSH (77518) Comments: PATIENT WAS FASTINGPERFORMED BY: NextG NetworksAtlantic Rehabilitation InstituteSnwmro5619 [facility] [id number] TSH 1.110 {uIU/mL} (Normal) Range: 0.450-4.500 :48 URINALYSIS, W/ MICRO Comments: PATIENT WAS FASTINGPERFORMED BY: NextG NetworksAtlantic Rehabilitation InstituteVtjtal1612 [facility] [id number] Information: [id number] (97850) Microscopic Examination See below: (Normal) Microscopic Examination MICRON (Normal) Comments: Microscopic follows if indicated. Nitrite, Urine Negative (Normal) Urobilinogen,Semi-Qn 0.2 mg/dL (Normal) Range: 0.0-1.9 Bilirubin Negative (Normal) Occult Blood Negative (Normal) Ketones Negative (Normal) Glucose Negative (Normal) Protein Negative (Normal) WBC Esterase Negative (Normal) Appearance Clear (Normal) Urine-Color Yellow (Normal) pH 7.0 (Normal) Range: 5.0-7.5 Specific [place] 1.018 (Normal) Range: 1.005-1.030 :48 MICROALBUMIN: CREATININE RATIO Comments: PATIENT WAS FASTINGPERFORMED BY: NextG NetworksNew Mexico Behavioral Health Institute at Las VegasQhtjee8667 [facility] [id number] (76207) AND (20314) Microalb/Creat Ratio 2.8 {mg/g_creat} (Normal) Range: 0.0-30.0 Microalbumin, Urine 2.8 ug/mL (Normal) Range: 0.0-17.0 Creatinine, Urine 100.6 mg/dL (Normal) Range: 15.0-278.0 :48 LIPID PANEL (70453) Comments: PATIENT WAS FASTINGPERFORMED BY: [employer] Lskumd2474 [facility] [id number] LDL/HDL Ratio 1.9 {ratio_units} (Normal) Range: 0.0-3.2 [...] Microscopic Examination Comments: PATIENT WAS FASTINGPERFORMED BY: CondoDomainUp Health System6370 [facility] [id number] Bacteria None seen (Normal) Epithelial Cells (non renal) 0-10 {/hpf} (Normal) Range: 0 - 10 RBC 0-3 {/hpf} (Normal) Range: 0 - 3 WBC 0-5 {/hpf} (Normal) Range: 0 - 5 :21 Blood Glucose , Office (20552) Blood Glucose , Office 127 (Normal) :21 HgA1C , Office (85111) HgA1C , Office 6.2 % (Normal) Range: 4.6 - 7.1 :45 HgA1C , Office (90971) HgA1C , Office 6.9 % (Normal) Range: 4.6 - 7.1 :45 Blood Glucose , Office (39034) Blood Glucose , Office 238 (Normal) :41 Microscopic Examination Comments: PATIENT WAS FASTINGPERFORMED BY: [employer] Esdava0034 [facility] [id number] Bacteria None seen (Normal) Mucus Threads Present (Normal) Epithelial Cells (non renal) 0-10 {/hpf} (Normal) Range: 0 - 10 RBC 0-3 {/hpf} (Normal) Range: 0 - 3 WBC 0-5 {/hpf} (Normal) Range: 0 - 5 :41 TSH (68037) Comments: PATIENT WAS FASTINGPERFORMED BY: [employer] Xihcar7818 [facility] [id number] TSH 1.290 {uIU/mL} (Normal) Range: 0.450-4.500 :41 URINALYSIS, W/ MICRO (91002) Comments: PATIENT WAS FASTINGPERFORMED BY: [employer] [facility] [id number] Microscopic Examination See below: (Normal) Nitrite, Urine Negative (Normal) Urobilinogen,Semi-Qn 0.2 mg/dL (Normal) Range: 0.0-1.9 Bilirubin Negative (Normal) Occult Blood Negative (Normal) Ketones Negative (Normal) Glucose Negative (Normal) Protein Negative (Normal) WBC Esterase 1+ (Abnormal) Appearance Clear (Normal) Urine-Color Yellow (Normal) pH 7.5 (Normal) Range: 5.0-7.5 Specific [place] 1.020 (Normal) Range: 1.005-1.030 :41 MICROALBUMIN: CREATININE RATIO Comments: PATIENT WAS FASTINGPERFORMED BY: [employer] [facility] [id number] (46053) AND (73316) Microalb/Creat Ratio 2.0 {mg/g_creat} (Normal) Range: 0.0-30.0 Microalbumin, Urine 2.4 ug/mL (Normal) Range: 0.0-17.0 Creatinine, Urine 119.8 mg/dL (Normal) Range: 15.0-278.0 :41 METABOLIC PANEL, COMPREHENSIVE Comments: PATIENT WAS FASTINGPERFORMED BY: [employer] Euoyxc8650 [facility] [id number] (50556) ALT (SGPT) 19 [iU]/L (Normal) Range: 0-40 [...] mg/dL (Abnormal) Range: 65-99 :41 LIPID PANEL (79920) Comments: PATIENT WAS FASTINGPERFORMED BY: [employer] Yqxjpg8236 [facility] [id number] LDL/HDL Ratio 1.8 {ratio_units} (Normal) Range: 0.0-3.2 [...] MANUAL DIFF Comments: PATIENT WAS FASTINGPERFORMED BY: [facility]6370 [facility] [id number] Information: [id number] (39423) Immature Grans (Abs) 0.0 {x10E3/uL} (Normal) Range: [...] (Normal) Range: 4.0-10.5 :07 HgA1C , Office (70672) HgA1C , Office 6.4 % (Normal) Range: 4.6 - 7.1 :07 Blood Glucose , Office (33097) Blood Glucose , Office 223 (Normal) :01 HgA1C , Office (41840) HgA1C , Office 6.1 % (Normal) Range: 4.6 - 7.1 : Blood Glucose , Office (26866) Blood Glucose , Office 185 (Normal) :28 Hepatic Function Panel (7) Comments: PATIENT WAS FASTINGPERFORMED BY: PharmMD6370 [employer] [facility] [id number] ALT (SGPT) 19 [iU]/L (Normal) Range: 0-40 AST (SGOT) 19 [iU]/L (Normal) Range: 0-40 Alkaline Phosphatase, S 78 [iU]/L (Normal) Range: 25-150 Bilirubin, Direct 0.12 mg/dL (Normal) Range: 0.00-0.40 Bilirubin, Total 0.3 mg/dL (Normal) Range: 0.0-1.2 Albumin, Serum 4.3 g/dL (Normal) Range: 3.5-5.5 Protein, Total, Serum 6.8 g/dL (Normal) Range: 6.0-8.5 :28 Lipid Panel With LDL/HDL Comments: PATIENT WAS FASTINGPERFORMED BY: SpectrumDNAlin6370 [facility] [id number] Ratio LDL/HDL Ratio 1.6 {ratio_units} (Normal) Range: 0.0-3.2 LDL Cholesterol Calc 81 mg/dL (Normal) Range: 0-99 VLDL Cholesterol Huy 31 mg/dL (Normal) Range: 5-40 HDL Cholesterol 51 mg/dL (Normal) Comments: According to ATP-III Guidelines, HDL-C >59 mg/dL is considered anegative risk factor for CHD. Triglycerides 154 mg/dL (Abnormal) Range: 0-149 Cholesterol, Total 163 mg/dL (Normal) Range: 100-199 86-Zsp-762711:27 SPINE, LUMBAR (ROUTINE) Radiology Report See Note [...] GERARDO PORTILLO MD :22 HgA1C , Office (35231) HgA1C , Office 6.1 % (Normal) Range: 4.6 - 7.1 :22 Blood Glucose , Office (07501) Blood Glucose , Office 140 (Normal) :19 URINALYSIS (58291) Comments: PATIENT WAS FASTINGPERFORMED BY: [facility]6370 [facility] [id number] Microscopic Examination MICRON (Normal) Comments: Microscopic follows if indicated. Nitrite, Urine Negative (Normal) Urobilinogen,Semi-Qn 0.2 mg/dL (Normal) Range: 0.0-1.9 Bilirubin Negative (Normal) Occult Blood Negative (Normal) Ketones Negative (Normal) Glucose Negative (Normal) Protein Negative (Normal) WBC Esterase Negative (Normal) Appearance Clear (Normal) Urine-Color Yellow (Normal) pH 7.0 (Normal) Range: 5.0-7.5 Specific [place] 1.016 (Normal) Range: 1.005-1.030 :19 MICROALBUMIN: CREATININE RATIO Comments: PATIENT WAS FASTINGPERFORMED BY: [facility]DomainUp [facility]6370 [facility] [id number] (08510) AND (80529) Microalb/Creat Ratio 1.6 {mg/g_creat} (Normal) Range: 0.0-30.0 Microalbumin, Urine 1.9 ug/mL (Normal) Range: 0.0-17.0 Creatinine, Urine 120.1 mg/dL (Normal) Range: 15.0-278.0 :19 TSH (88688) Comments: PATIENT WAS FASTINGPERFORMED BY: [facility]6370 [facility] [id number] TSH 1.310 {uIU/mL} (Normal) Range: 0.450-4.500 :19 Metabolic Panel, Comments: PATIENT WAS FASTINGPERFORMED BY: [facility]6370 [facility] [id number] Information: [id number] Comprehensive (24320) ALT (SGPT) 19 [iU]/L (Normal) Range: 0-40 [...] Glucose, Serum 135 mg/dL (Abnormal) Range: 65-99 64-Srw-80031:19 Lipid Panel (12497) Comments: PATIENT WAS FASTINGPERFORMED BY: [facility] Vabwqo9468 [facility] [id number] LDL/HDL Ratio 2.5 {ratio_units} (Normal) Range: 0.0-3.2 LDL Cholesterol Calc 121 mg/dL (Abnormal) Range: 0-99 VLDL Cholesterol Huy 28 mg/dL (Normal) Range: 5-40 HDL Cholesterol 48 mg/dL (Normal) Comments: According to ATP-III Guidelines, HDL-C >59 mg/dL is considered anegative risk factor for CHD. Triglycerides 142 mg/dL (Normal) Range: 0-149 Cholesterol, Total 197 mg/dL (Normal) Range: 100-199 :30 HgA1C , Office (77273) HgA1C , Office 6.5 % (Normal) Range: 4.6 - 7.1 :30 Blood Glucose , Office (39837) Blood Glucose , Office 154 (Normal) :12 Microscopic Examination Comments: PATIENT WAS FASTINGPERFORMED BY: [employer] [facility] [id number] Bacteria None seen (Normal) Mucus Threads Present (Normal) Epithelial Cells (non renal) 0-10 {/hpf} (Normal) Range: 0 - 10 RBC 0-3 {/hpf} (Normal) Range: 0 - 3 WBC 0-5 {/hpf} (Normal) Range: 0 - 5 :12 TSH (88440) Comments: PATIENT WAS FASTINGPERFORMED BY: [employer]70 [facility] [id number] TSH 1.260 {uIU/mL} (Normal) Range: 0.450-4.500 :12 URINALYSIS, W/ MICRO (00856) Comments: PATIENT WAS FASTINGPERFORMED BY: [employer] [facility] [id number] Microscopic Examination See below: (Normal) Bilirubin Negative (Normal) Microscopic Examination MICRON (Normal) Comments: Microscopic follows if indicated. Nitrite, Urine Negative (Normal) Occult Blood Negative (Normal) Urobilinogen,Semi-Qn 0.2 mg/dL (Normal) Range: 0.0-1.9 Glucose Negative (Normal) Ketones Negative (Normal) Protein Negative (Normal) Appearance Clear (Normal) pH 7.0 (Normal) Range: 5.0-7.5 Urine-Color Yellow (Normal) WBC Esterase Negative (Normal) Specific [place] 1.017 (Normal) Range: 1.005-1.030 :12 MICROALBUMIN: CREATININE RATIO Comments: PATIENT WAS FASTINGPERFORMED BY: PharmMD6370 [facility] [id number] (68703) AND (96004) Microalb/Creat Ratio 2.4 {mg/g_creat} (Normal) Range: 0.0-30.0 Microalbumin, Urine 3.2 ug/mL (Normal) Range: 0.0-17.0 Creatinine, Urine 134.3 mg/dL (Normal) Range: 15.0-278.0 60-Tij-65216:12 METABOLIC PANEL, COMPREHENSIVE Comments: PATIENT WAS FASTINGPERFORMED BY: LabCoAtlantic Rehabilitation InstituteLutvgz4675 [facility] [id number] (75535) Alkaline Phosphatase, S 67 [iU]/L (Normal) Range: [...] mg/dL (Abnormal) Range: 65-99 :12 LIPID PANEL (27149) Comments: PATIENT WAS FASTINGPERFORMED BY: PharmMD6370 [facility] [id number] LDL/HDL Ratio 2.3 {ratio_units} (Normal) Range: 0.0-3.2 [...] MANUAL DIFF Comments: PATIENT WAS FASTINGPERFORMED BY: [employer]Sol6370 [facility] [id number] Information: [id number] (24467) Baso (Absolute) 0.0 {x10E3/uL} (Normal) Range: 0.0-0.2 [...] (Normal) Range: 4.0-10.5 :50 HgA1C , Office (11961) Comments: done HgA1C , Office 6.1 % (Normal) Range: 4.6 - 7.1 :49 Blood Glucose , Office (07958) Comments: done Blood Glucose , Office 127 (Normal) :19 HgA1C , Office (01043) Comments: done HgA1C , Office 6.8 % (Normal) Range: 4.6 - 7.1 :19 Blood Glucose , Office (09880) Comments: done Blood Glucose , Office 159 (Normal) :54 HEPATIC FUNCTION PANEL Comments: PATIENT WAS FASTINGPERFORMED BY: Lesli [employer] Pli4252 [facility] [id number] BY: [facility]6370 [facility] [id number] (42304) ALT (SGPT) 25 [iU]/L (Normal) Range: 0-40 AST (SGOT) 25 [iU]/L (Normal) Range: 0-40 Alkaline Phosphatase, S 89 [iU]/L (Normal) Range: 25-150 Bilirubin, Direct 0.15 mg/dL (Normal) Range: 0.00-0.40 Albumin, Serum 4.6 g/dL (Normal) Range: 3.5-5.5 Bilirubin, Total 0.5 mg/dL (Normal) Range: 0.1-1.2 Protein, Total, Serum 7.2 g/dL (Normal) Range: 6.0-8.5 :54 LIPOPROTEIN, BLD, BY NMR Comments: PATIENT WAS FASTINGPERFORMED BY: Lesli [employer] Jvd0233 [facility]theiSelect [facility] [id number] BY: BRISEYDA LabCoNew Mexico Behavioral Health Institute at Las VegasKxhkab5428 [facility] [id number] Information: [id number] (02458) HDL Size 8.3 nm (Abnormal) Comments: Small LDL-P, LDL Particle Size, Large HDL-P, Large VLDL-PVLDL Size, HDL Size, HDL Particle, and LP-IR Scorehave been validated by [employer] but not cleared by US FDA;the clinical [...] Risk-->LDL AND HDL PARTICLES Percentile in Reference Popula [facility]-P (total) High 75th 50th 25th Low>34.9 34.9 30.5 26.7 <26.7.Small LDL-P Low 25th 50th 75th High<117 117 527 839 >83 9.LDL Size <-Large (Pattern A)-> <-Small (Pattern B)->23.0 20.6 20.5 19.0 INSULIN RESISTANCE / DIABETES RISK M ARKERS<--Insulin Sensitive Insulin Resistant-->Percentile in Reference PopulationLarge VLDL-P [...] > 189. Cholesterol, Total 144 mg/dL (Normal) 18-Dec-20087:21 HgA1C , Office (67000) Comments: done km HgA1C , Office 6.1 % (Normal) Range: 4.6 - 7.1 :21 Blood Glucose , Office (55829) Comments: done km Blood Glucose , Office 133 (Normal) :25 TSH (05234) Comments: PATIENT WAS FASTINGPERFORMED BY: [facility]6370 [facility] [id number] TSH 1.010 {uIU/mL} (Normal) Range: 0.450-4.500 :25 MICROALBUMIN: CREATININE RATIO Comments: PATIENT WAS FASTINGPERFORMED BY: [place] 3013670 [facility] [id number] (92997) AND (05864) Creatinine, Urine 79.8 mg/dL (Normal) Range: 15.0-278.0 Microalb/Creat Ratio 1.6 {mg/g_creat} (Normal) Range: 0.0-30.0 Microalbumin, Urine 1.3 ug/mL (Normal) Range: 0.0-17.0 :25 METABOLIC PANEL, COMPREHENSIVE Comments: PATIENT WAS FASTINGPERFORMED BY: [place] 3013670 [facility] [id number] (77813) A/G Ratio 1.6 (Normal) Range: 1.1-2.5 Albumin, [...] Glucose, Serum 127 mg/dL (Abnormal) Range: 65-99 :25 LIPOPROTEIN, BLD, BY NMR Comments: PATIENT WAS FASTINGClinical Information: [id number] PERFORMED BY: [facility]6370 [facility] [id number] (38182) Cholesterol, Total 197 mg/dL (Normal) HDL-C 48 [...] > 1200 . Triglycerides 107 mg/dL (Normal) :25 CBC WITH MANUAL DIFF (68444) Comments: PATIENT WAS FASTINGPERFORMED BY: LabCoAtlantic Rehabilitation InstituteFypyyp7510 [facility] [id number] Baso (Absolute) 0.1 {x10E3/uL} (Normal) Range: 0.0-0.2 [...] (Normal) Range: 4.0-10.5 :02 HgA1C , Office (94521) Comments: done km HgA1C , Office 5.9 % (Normal) Range: 4.6 - 7.1 :02 Blood Glucose , Office (08041) Comments: done Blood Glucose , Office 131 (Normal) 98-Yki-931621:26 Blood Glucose , Office (69021) Comments: done Blood Glucose , Office 80 (Normal) :26 HgA1C , Office (10725) Comments: done km HgA1C , Office 5.7 % (Normal) Range: 4.6 - 7.1 :18 Rapid Strep Test, Office (91326) Rapid Strep Test, Office Negative (Normal) :35 URINALYSIS W/O MICRO (66714) Comments: PATIENT WAS FASTINGPERFORMED BY: [employer] [facility] [id number] Appearance Clear (Normal) Bilirubin Negative (Normal) Glucose Negative (Normal) Ketones Negative (Normal) Microscopic Examination MICRON (Normal) Comments: Microscopic follows if indicated. Nitrite, Urine Negative (Normal) Occult Blood Negative (Normal) pH 6.5 (Normal) Range: 5.0-7.5 Protein Negative (Normal) Specific [place] 1.022 (Normal) Range: 1.005-1.030 Urine-Color Yellow (Normal) Urobilinogen,Semi-Qn 0.2 mg/dL (Normal) Range: 0.0-1.9 WBC Esterase Negative (Normal) :35 MICROALBUMIN: CREATININE RATIO Comments: PATIENT WAS FASTINGPERFORMED BY: [employer] Pxjhal9023 [facility] [id number] (76663) AND (79943) Microalbum.,U,Random 1.6 ug/mL (Normal) Range: 0.0-17.0 :35 METABOLIC PANEL, COMPREHENSIVE Comments: PATIENT WAS FASTINGPERFORMED BY: [employer] Uiqsit3161 [facility] [id number] (83024) A/G Ratio 1.7 (Normal) Range: 1.1-2.5 Albumin, [...] on 'Glom Filt Rate, Est' and 'If -[place]' will be changing to >59 mL/min/1.73. Glucose, Serum 123 mg/dL (Abnormal) Range: 65-99 If -[place] >60 mL/min (Normal) Range: 60-128 Comments: Note: [...] Sodium, Serum 137 mmol/L (Normal) Range: 135-145 :35 CBC WITH MANUAL DIFF (33741) Comments: PATIENT WAS FASTINGClinical Information: ADD DRAW FEE [id number] ADD J 17451 PERFORMED BY: [facility] Fkpvqy0325 [facility] [id number] Baso (Absolute) 0.1 {x10E3/uL} (Normal) Range: 0.0-0.2 [...] {x10E3/uL} (Normal) Range: 4.0-10.5 :35 LIPID PANEL (96450) Comments: PATIENT WAS FASTINGPERFORMED BY: LabCoAtlantic Rehabilitation InstituteLivkho2312 [facility] [id number] Cholesterol, Total 182 mg/dL (Normal) Range: 100-199 Comment SPRCS (Normal) Comments: If initial LDL-cholesterol result is >100 mg/dL, assess forrisk factors. HDL Cholesterol 44 mg/dL (Normal) Range: 40-59 LDL Cholesterol Calc 117 mg/dL (Abnormal) Range: 0-99 LDL/HDL Ratio 2.7 {ratio_units} (Normal) Range: 0.0-3.2 Triglycerides 106 mg/dL (Normal) Range: 0-149 VLDL Cholesterol Huy 21 mg/dL (Normal) Range: 5-40 :03 HgA1C , Office (99865) Comments: done HgA1C , Office 5.7 % (Normal) Range: 4.6 - 7.1 :03 Blood Glucose , Office (40901) Comments: done Blood Glucose , Office 141 (Normal) :07 HgA1C , Office (81336) Comments: done HgA1C , Office 5.7 % (Normal) Range: 4.6 - 7.1 :07 Blood Glucose , Office (33471) Comments: done Blood Glucose , Office 143 [...] {uIU/mL} (Normal) Range: 0.34-4.82 :41 Urinalysis, Office (90689) UA - BILIRUBIN Negative (Normal) UA - [...] Result: 0-5 SEEN :26 HgA1C , Office (81506) Comments: done km HgA1C , Office 5.5 % (Normal) Range: 4.6 - 7.1 :26 Blood Glucose , Office (71196) Comments: done Blood Glucose , Office 123 (Normal) 28-Kuf-839431:55 LUKE CULTURE-OTHER (75238) 73-Eoo-221893:51 Upper Respiratory Culture Comments: Clinical Information: SRC:LITO LYLES [id number] PERFORMED BY: [facility] Kbgnnw0576 [facility] [id number] Result 1 RRF (Normal) Comments: Routine respiratory radha Upper Respiratory Culture Final report (Normal) 48-Vpj-027534:23 Rapid Strep Test, Office (12569) Comments: done Rapid Strep Test, Office Negative (Normal) :10 LIPID CHOL 192 mg/dL (Normal) Comments: <200 [...] (Normal) Range: 0.34-4.82 :06 HgA1C , Office (86708) Comments: done HgA1C , Office 5.2 % (Normal) Range: 4.6 - 7.1 :06 Blood Glucose , Office (41575) Comments: done Blood Glucose , Office 102 (Normal) :44 HgA1C , Office (64213) HgA1C , Office 5.5 % (Normal) Range: 4.6 - 7.1 :50 GLUP 210 mg/dL (Abnormal) Comments: GLU,2HPPG 75gm GLUC PPG GLUP from 0611:[id number]. Comments: Glucose result greater than or equal [...] Plan of Care Name Dates Details Instructions Controlled diabetes mellitus : Follow up in 3 months Indication: Controlled diabetes mellitus Hyperlipidemia : Cholesterol mgmt Indication: Hyperlipidemia Invasive ductal carcinoma of breast, left : Reviewed Lab Indication: Invasive ductal carcinoma of breast, left Invasive ductal carcinoma of breast, left : Reviewed Grants Assistant Letter Indication: Invasive ductal carcinoma of breast, left Invasive ductal carcinoma of breast, left : Reviewed Lab Indication: Invasive ductal carcinoma of breast, left Invasive ductal carcinoma of breast, left : Reviewed Grants Assistant Letter Indication: Invasive ductal carcinoma of breast, [...] mgmt Indication: Hyperlipidemia Psoriatic arthritis : Reviewed Grants Assistant Letter Indication: Psoriatic arthritis Diabetes mellitus type [...] Indication: Chest pain Chest pain : Reviewed Grants Assistant Letter Indication: Chest pain Chest pain : [...] diabetes mellitus POLYARTHROPATHY, INFLAMMATORY NOS : Reviewed Grants Assistant Letter Indication: POLYARTHROPATHY, INFLAMMATORY NOS Hyperlipidemia : [...] Indication: Hyperlipidemia POLYARTHROPATHY, INFLAMMATORY NOS : Reviewed Grants Assistant Letter Indication: POLYARTHROPATHY, INFLAMMATORY NOS Controlled diabetes [...] reflux disease) Planned Observations URINALYSIS, W/ MICRO (58989)Indication: Controlled diabetes mellitus On: :59 Request MICROALBUMIN: CREATININE RATIO (10672) AND (21800)Indication: Controlled diabetes mellitus On: :59 Request METABOLIC PANEL, COMPREHENSIVE (04197)Indication: Controlled diabetes mellitus On: :59 Request CBC W/AUTO DIFF WBC (95998)Indication: Controlled diabetes mellitus On: :59 Request CALCIFIDIOL (61585) VIT D 25Indication: Vitamin D deficiency On: :59 Request LIPOPROTEIN, BLD, BY NMR (85111)Indication: Hyperlipidemia On: :59 Request CALCIFIDIOL (50158) VIT D 25Indication: Vitamin D deficiency On: :50 Request TSH (21821)Indication: Diabetes mellitus type 2, uncontrolled, without complications On: :50 Request URINALYSIS, W/ MICRO (28654)Indication: Diabetes mellitus type 2, uncontrolled, without complications On: :49 Request MICROALBUMIN: CREATININE RATIO (17193) AND (40482)Indication: Diabetes mellitus type 2, uncontrolled, without complications On: :49 Request METABOLIC PANEL, COMPREHENSIVE (98783)Indication: Diabetes mellitus type 2, uncontrolled, without complications On: :49 Request LIPID PANEL (40616)Indication: Diabetes mellitus type 2, uncontrolled, without complications On: :49 Request CBC W/AUTO DIFF WBC (67544)Indication: Diabetes mellitus type 2, uncontrolled, without complications On: :49 Request URINALYSIS, W/ MICRO (90297)Indication: Diabetes mellitus type 2, uncontrolled, without complications On: 15-Mla-86341:00 Request Blood Glucose , Office (67440)Indication: Diabetes mellitus type 2, uncontrolled, without complications On: 39-Lpl-505140:11 Request Influenza A&B Viral Culture (48006)Indication: Body aches On: 77-Vim-87391:55 Request FECAL OCCULT- Tubes sent home (96614)Indication: Encounter for screening for malignant neoplasm of colon (Renamed from Special screening for malignant neoplasms, colon) On: 62-Qxi-64939:34 Request Throat Culture (75872)Indication: ACUTE PHARYNGITIS (462.) On: :06 Request HEPATIC FUNCTION PANEL (12174)Indication: Hyperlipidemia On: :17 Request LIPID PANEL (44306)Indication: Hyperlipidemia On: :17 Request Rapid Strep Test, Office (63036)Indication: ACUTE PHARYNGITIS (462.) On: 78-Gpw-837538:04 Request METABOLIC PANEL, COMPREHENSIVE (95885)Indication: Controlled diabetes mellitus On: :48 Request CBC WITH MANUAL DIFF (22032)Indication: Controlled diabetes mellitus On: :48 Request LIPID PANEL (71858)Indication: Hyperlipidemia On: :45 Request LIPID PANEL (20967)Indication: Hyperlipidemia On: :34 Request LIPID PANEL (18899)Indication: Controlled diabetes mellitus On: 28-Dhi-12402:23 Request TSH (18561)Indication: Controlled diabetes mellitus On: 57-Kdo-869608:00 Request MICROALBUMIN: CREATININE RATIO (10097) AND (16046)Indication: Controlled diabetes mellitus On: 94-Usx-176706:00 Request METABOLIC PANEL, COMPREHENSIVE (04979)Indication: Controlled diabetes mellitus On: 88-Zig-403333:00 Request LIPID PANEL (37438)Indication: Controlled diabetes mellitus On: 83-Hfj-505800:00 Request CBC WITH MANUAL DIFF (08915)Indication: Controlled diabetes mellitus On: 23-Hdk-773479:00 Request URINALYSIS W MICROSCOPY (79613)Indication: Cystitis, acute On: 89-Pei-997495:58 Request URINALYSIS W/O MICRO (22037)Indication: Controlled diabetes mellitus On: :26 Request TSH (58015)Indication: Controlled diabetes mellitus On: :26 Request METABOLIC PANEL, COMPREHENSIVE (65885)Indication: Controlled diabetes mellitus On: 50-Euj-66279:26 Request MICROALBUMIN URINE QUANT (29953)Indication: Controlled diabetes mellitus On: 50-Nle-68411:26 Request LIPID PANEL (95658)Indication: Controlled diabetes mellitus On: :26 Request CBC WITH MANUAL DIFF (05008)Indication: Controlled diabetes mellitus On: :26 Request LUKE CULTURE-OTHER (83291)Indication: Throat pain On: 82-Sje-310147:55 Request TSH (10541)Indication: Controlled diabetes mellitus On: :14 Request LIPID PANEL (87417)Indication: Controlled diabetes mellitus On: :14 Request MICROALBUMIN URINE QUANT (78617)Indication: Controlled diabetes mellitus On: :14 Request LIPID PANEL (58927)Indication: Family history of diabetes mellitus On: :10 Request Glucose, PP/2 Hour (79882)Indication: Family history of diabetes mellitus On: :10 Request Planned Encounters Medical; 3 Month FU - On: 03-May-2018 8:15 [facility] Ruth Jones DO, DO, Kathleen Planned Procedures Holter Monitor 24 hrsBy: Karen SINGH, On: 22-Feb-2017 Intent Ruth Ibarra DO Comments: maryam to read ELECTROCARDIOGRAM, COMPLETE (ECG) On: 22-Feb-2017 Intent ([id number])By: Ruth Jones DO Comments: nsr no acute chg Ruth Jones DO ELECTROCARDIOGRAM, COMPLETE (ECG) On: 07-Jul-2016 Intent ([id number])By: Ruth Jones DO Comments: nsr no acute chg Ruth Jones DO Spirometry ([id number])By: Karen SINGH, On: 02-Mar-2016 Intent Ruth Ibarra DO Comments: normal Aerosol Treatment ([id number])By: Slarb On: 28-Feb-2016 Intent Trinh GONZALEZ EKG ([id number])By: Ruth Jones DO On: 21-Aug-2014 Intent Ruth Jones DO Comments: sinus carroll no acute chg SPECIMEN HNDLNG/TRNSPRT, OFFC > LAB On: 24-Feb-2014 Intent ([id number])By: Jaquelin Shore CNP Flu Vaccine (Quadrivalent) [id number]: On: 18-Dec-2013 Intent Ruth Jones DO, DO, Comments: Lot:[id number]:0.5mlRoute:IMSite: L DltdGiven By: KENYATTA Marsh signed Ruth ADMINISTRATION OF INFLUENZA VIRUS On: 18-Dec-2013 Intent VACCINE ([id number])By: Ruth Jones DO, DO Ruth Ear Irrigation ([id number])By: Silviano On: 06-Oct-2013 Intent MARLYS Jaquelin Smith Comments: addendum to 10/06/13 OVEar Irrigation performed on:left earAmount/color removed cerumen:dark brown, large amountOUtcome:clearUsed wax curettes Wax CurettesBy: Silviano FRANKEL Jaquelin Smith On: 06-Oct-2013 Intent Ear Irrigation ([id number])By: Silviano On: 06-Oct-2013 Intent MARLYSJaquelin Eprescribed prescriptions ([id number])By: On: 20-Jun-2013 Intent Ruth Jones DO, DO, Kathleen EKG ([id number])By: Ruth Jones DO On: 20-Jun-2013 Intent Ruth Jones DO Comments: nsr no acute chg Eprescribed prescriptions ([id number])By: On: 28-Mar-2013 Intent Ruth Jones DO DO, Ruth Aerosol Treatment ([id number])By: On: 17-Feb-2013 Intent Natalie Covington Eprescribed prescriptions ([id number])By: On: 17-Feb-2013 Intent Natalie Covington Ultrasound - Abdomen CompleteBy: On: 16-Jan-2013 Intent Ruth Jones DO DORuth FLU VAC, SPLIT, >3 YEARS, INTRAMUSC On: 16-Jan-2013 Intent ([id number])By: Karla Santana LPN Comments: Lot:[id number]:6.14Amt:0.5mlRoute:IMSite: L DltdGiven By: KENYATTA Marsh signed IMMUNIZ ADMNIN, 1 VAC, SNGL/COMBO On: 16-Jan-2013 Intent ([id number])By: Karla Santana LPN Aerosol Treatment ([id number])By: Silviano On: 28-Oct-2012 Intent Jaquelin FRANKEL Eprescribed prescriptions ([id number])By: On: 28-Oct-2012 Intent Natalie Covington EKG ([id number])By: Ruth Jones DO On: 24-May-2012 Intent Ruth Jones DO Eprescribed prescriptions ([id number])By: On: 24-May-2012 Intent Karla Santana LPN Eprescribed prescriptions ([id number])By: On: 11-Jan-2012 Intent MaxKarla LPN Eprescribed prescriptions ([id number])By: On: 01-Dec-2011 Intent Karla Santana LPN PNEUM VAC ADLT/IMUMNOSPR, SBC/INTRM On: 08-Sep-2011 Intent ([id number])By: Ruth Jones DO Comments: Lot #[id number]-left deltoidDose- 0.5mlgiven by: LISA Soni DO, Kathleen IMMUNIZ ADMNIN, 1 VAC, SNGL/COMBO On: 08-Sep-2011 Intent ([id number])By: Ruth Jones DO, DO, Kathleen EKG ([id number])By: Ruth Jones DO On: 17-Mar-2011 Intent Ruth Jones DO Comments: nsr no acute changes MRI - Lumbar SpineBy: Karen SINGH, On: 22-Dec-2010 Intent Ruth Ibarra DO FLU VAC, SPLIT, >3 YEARS, INTRAMUSC On: 09-Dec-2010 Intent ([id number])By: Gabriella Dey LPN Comments: had done at work in early November IMMUNIZ ADMNIN, 1 VAC, SNGL/COMBO On: 09-Dec-2010 Intent ([id number])By: Gabriella Dey LPN EKG ([id number])By: Ruth Jones DO On: 29-Apr-2010 Intent Ruth Jones DO Comments: nsr no acute ishcemic changes Aerosol Treatment ([id number])By: Silviano On: 19-May-2009 Intent Jaquelin FRANKEL EKG ([id number])By: Ruth Jones DO On: 18-Dec-2008 Intent Ruth Jones DO Comments: nsr no acute ischemic changes TDAP VACCINE >7 IM ([id number])By: Karen On: 26-Jun-2008 Ruth Bejarano DO, DO, Kathleen Comments: Lot #: [id number] date: mount given:0.5 mlRoute: IMSite given: Right deltoidGiven by: Jonathan Woodruff LPN Pulse Oximetry ([id number])By: Silviano FRANKEL, On: 04-Feb-2008 Intent Rossy Aerosol Treatment ([id number])By: Silviano On: 04-Feb-2008 Intent Jaquelin FRANKEL EKG ([id number])By: Ruth Jones DO On: 04-Oct-2007 Intent Ruth Jones DO Comments: nsr no acute ischemic changes Ear Irrigation ([id number])By: Karen On: 01-Jan-2007 Ruth Bejarano DO, DO, Kathleen Comments: LEFT --KEISHA WELL EKG ([id number])By: Ruth Jones DO On: 03-Aug-2006 Intent Ruth Jones DO Comments: nsr no acute ischemic changes Instructions Name Dates Details Controlled diabetes mellitus : How to access [...] Controlled diabetes mellitus Encounters Office Visit On: 01-Feb-2018 11:24 Encounter Reason: [...] ago. Note for Cold symptoms: blowing out yedolly dumonto End: 27-Oct-2016 10:13 t of facila pressure [...] mammography (2006) and screening, visual acuity (2004 [facility]). Encounter Diagnosis: Gerd (530.81), Headache, tension (307.81), Headache,Migraine (346.00), Family history of diabetes mellitus (V18.0) [facility] Payers Jessie MACE/Mela Rodriguez; a guarantor
--- OUTSIDE RECORDS SUMMARY | 2018-05-05 21:08 | XMS RPT_ITS | Continuity of Care Document ---
:1955 Author Organization [facility] Address [address] [facility] [address] [place] [address] Phone Care Team Providers Name Role Phone [...] Active Arthritis (M19.90, 716.90) Status: Active BMI 35.0-35.9,adult (Z68.35, V85.35) Status: [...] 786.07) Status: Active Medications Name Dates Details CALCIUM + D, 430-459PG-GMWR (Oral Tablet) 1 bid for 0 days Refills: 0 Ordered:18-Dec-2008 Karla Santana LPNAclynsey Fiorinal 50-325-40 MG Oral Capsule 1 Capsule q 6 hr prn for 0 days Quantity: 30 {Capsule} Refills: 0 Ordered:18-Jan-2018 Roby Jones DO, DO, Kathleen Start : 18-Jan-2018 Active Comments:bveohrX84.109C50.912 FreeStyle Lite Test In Vitro Strip 1 Strip bid for 0 days Quantity: 100 {Strip} Refills: 3 Ordered:07-Jul-2016 KarenRoby jeff DO, DO, Kathleen Start : 07-Jul-2016 Active Comments:dx E11.65 LANCET DEVICE (Miscellaneous) 1 Misc bid for 0 days Quantity: 100 {Misc} Refills: 3 Ordered:31-May-2009 Karla Santana LPN Start : 31-May-2009 Active Comments:dx 250.00 Lidocaine-Prilocaine 2.5-2.5 % External Cream 1 q week prn (2.5-2.5 %) Active LORazepam 1 MG Oral Tablet 1 q [...] Active MULTI-DAY (Oral Tablet) 1 qd Active NASONEX, 50MCG/ACT (Nasal Suspension) 1 (one) Suspension Suspension bid for 0 days Quantity: 1 {Bottle} Refills: 0 Ordered:24-Feb-2014 Jaquelin Shore CNP Start : 24-Feb-2014 Active Omeprazole 40 MG Oral Capsule Delayed Release 1 (one) Capsule DR qd for 0 days Quantity: 30 {Capsule} Refills: 3 Ordered:14-Jan-2018 Roby Jones DO, DO, Kathleen Start : 14-Jan-2018 Active Ondansetron HCl 8 MG Oral Tablet prn (8 MG) Active [place] 31G X 5 MM Miscellaneous 1 (one) [...] DO, DO, Kathleen Start : 27-Jul-2017 Active SUMATRIPTAN SUCCINATE, 50MG (Oral Tablet) 1 (one) Tablet Tablet at onset of h/a and may repeat if not gone in 2 hrs for 0 days Quantity: 9 {Tablet} Refills: 3 Ordered:21-Sep-2014 Karla Santana LPN Start : 21-Sep-2014 Active TRAMADOL HCL, 50MG (Oral Tablet) 1 [...] Start : 17-Feb-2013 End : 27-Feb-2013 Inactive LIPITOR, 20MG (Oral Tablet) 1 (one) [...] Start : 18-Dec-2013 End : 22-Feb-2017 Inactive NEURONTIN, 300MG (Oral Capsule) 1 Capsule [...] Start : 21-Aug-2014 End : 22-Feb-2017 Inactive TAGAMET, 400MG (Oral Tablet) 1 uad/prn [...] as of 22-Jun-2008 Procedures Date Value Details 27-May-2017 Operative Report Result: Comments: See Note; NOTES: [facility] Medical Records Department [address] [place] [address] Operative Report 05/24/17 0900 MR#: [id number] Acct: [id number] Name: JIMENEZ RODRIGUEZ Rep #: [id number] : 1955 62 From: Hodan Chong MD PCP: Ruth Jones DO Status: [facility] Y Location: [facility] [place] Report of Operation Date of Procedure: 05/24/17 Pre-Operative Diagnosis: history of left breast cancer, left axillary bulky adenopathy, left mastectomy dog ear Post-Operative Diagnosis: same as above Surgery/Procedure Performed:: Left axillary lymphadenectomy, revision of left maste ctomy dog ear Description of Surgical Findings:: bulky adenopathy of left axilla, left mastectomy lateral dog ear mathematics academic chair: Alma Swan Type of Anesthesia:: General Anesthesiologist: [...] Discharge Instruction Result: Comments: See Note; NOTES: [facility] Medical Records Department [address] [facility] [address] Instructions for Home/Discharge Instructions 05/24/17 0903 MR#: [id number] Acct: [id number] Name: PATGENNYFarhatJESSICA Jonathan Rep #: [id number] : 1955 62 From: Hodan Chong MD PCP: Ruth Jones DO Status: REG [facility] [place] Discharge Diet: No Restrictions [...] Aspirin/Acetaminophen/Caffeine [Excedrin Migraine Caplet] 1 each PO NJ N PRN 04/18/17 Calm Day 3 cap PO DAILY 04/18/17 Cholecalciferol (Vitamin D3) [Vitamin D3] 2,000 unit PO DAILY 04/18/17 Ibuprofen 400 mg PO PRN PRN 04/18/17 Melatonin [Melatin] 6 mg PO QHS 04/18/17 Metfo rmin HCl 500 mg PO BID 04/18/17 Calcium (Elemental) [Os-[place]uy 500] 1,000 mg PO DAILY 05/23/17 Hydrocodone Bitart/Apap 5-325 [[place] 5MG-325MG] 1 tab PO Q6H PRN PRN #20 tab 05/24/17 The following prescrip tions were given: Hydrocodone Bitart/Apap 5-325 [[place] 5MG-325MG] 1 tab PO Q6H PRN PRN [...] Operative Report Result: Comments: See Note; NOTES: [facility] Medical Records Department [address] [place] [address] Operative Report 04/20/17 1454 MR#: [id number] Acct: [id number] Name: JIMENEZ RODRIGUEZ Rep #: [id number] : 1955 62 From: Palmer Hawkins MD PCP: Ruth Jones DO Status: REG SDC Y Location: [place] [address] Report of Operation Date of Procedure: 04/20/17 Pre-Operative Diagnosi s: left breast cancer Post-Operative Diagnosis: same Surgery/Procedure Performed:: right simple mastectomy mathematics academic chair: Brittny Mccullough Type of Anesthesia:: General Anesthesiologist: [...] 2 Views Result: Comments: See Note; NOTES: [facility] Imaging Services [address] [place] [address] Shoulder min 2 Views MR#: [id number] Acct: [id number] Name: JESSICA RODRIGUEZ Rep #: [id number] : 1955 F 61 From: Perla Henderson MD PCP: Ruth Jones DO Status: REG CLI Study: Shoulder min 2 Views Date of Exam: 12/29/16 Exam# [id number] Ordering Dr: Natalia Otto MD STUDY: X-R [...] CC: Ruth Jones DO; Natalia Otto MD Scientific Director: Signed 26-Aug-2015 ELECTROCARDIOGRAM, COMPLETE (ECG) (81335) Comments: nsr no acute chg Result: [MEASUREMENTS ANALYSIS] Date of Test: 08/26/2015 07:49:01; Heart Rate: 62; NJ Interval: 152; QRS: 88; QT Interval: 424; Corrected QT Interval (QTc): 427; P [place]: 47; QRS [place]: 61; T [place]: 47; Blood Pressure: 130/70 [ECG DIAGNOSTIC STATEMENTS] Date of Test: 08/26/2015 07:49:01; Summary: Sinus Rhythm WITHIN NORMAL LIMITS 20-Aug-2013 Chest PA and Lateral Result: Comments: See Note; NOTES: [facility] Imaging Services [address] [place] [address] Radiology Report MR#: [id number] Acct: [id number] Name: JESSICA RODRIGUEZ Rep #: [id number] : 1955 F 58 From: Edilberto Patel MD PCP: Ruth Jones DO Status: REG CLI Study: Chest PA and Lateral Date of Exam: 08/20/13 Exam# [id number] Ordering Dr: Natalia Otto MD STUDY: X-RAY CHEST REASON FOR EXAM: Female, 58 years old. Psoriatic arthropathy. TECHNIQUE: PA and lateral views of the chest. COMPARISON: Comparison is made with prior study dated March 21 014. FINDINGS: The lungs are clear and expanded. [...] Edilberto Patel MD at 10:10 EDT Tel [phone], Service support [phone], Fax RAD/Chest PA and Lateral IMPRESSION: No acute abnormality is present. Electronically Signed: Edilberto Patel MD at 10:10 EDT Tel [phone], Service support [phone], CC: Ruth Jones DO; Natalia Otto MD Scientific Director: Signed 22-Jan-2013 Abdomen Complete Result: Comments: See Note; NOTES: [facility] Imaging Services [address] [place] [address] Ultrasound Report MR#: [id number] Acct: [id number] Name: JESSICA RODRIGUEZ Rep #: [id number] : 1955 F 57 From: Edilberto Patel MD PCP: Status: REG CLI Study: Abdomen Complete Date of Exam: 01/22/13 Exam# [id number] Ordering Dr: Ruth Jones DO STUDY: ABDOMINAL [...] M.D. at 10:28 EST , Service support [phone], CC: Ruth Jones DO Scientific Director: Signed Immunization Name Dates Details Tdap (7 years and up) on: 26-Jun-2008 Comments: Lot #: [id number] date: mount given:0.5 mlRoute: IMSite given: Right deltoidGiven by: Jonathan Woodruff LPN Family History Unknown Family Member Name Dates Details Father Comments: DM, Heart Dz, Cholestrol, arthlosclorsis Status: Active Maternal Grandmother Comments: BR CA Status: Active Social History Name Dates Details Alcohol Use Comments: Occasional alcohol use Status: Active Caffeine Use Comments: 2-4 QD Status: Active 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, [employer] Status: Active Exercise History Comments: Moderate, walking 2-3 Status: Active Living Situation Comments: , Lives with spouse Status: Active No Drug Use Status: Active Tobacco/Smoke Exposure Comments: quit 15 yrs agosame status 06/05/11 Status: Active Vital Signs Date Test Result Details :21 Pulse 74 /min Comments: Pattern: Regular [...] Height 0 in Head Circumference 0.00 cm 50-Ush-291824:46 Temperature 98.9 f Comments: Method: Oral Pulse 62 /min Comments: Pattern: Regular BP Systolic 122 mm[Hg] Comments: Patient Position: Sitting; Cuff Location: Left Arm; Cuff Size: Standard BP Diastolic 78 mm[Hg] Comments: Patient Position: Sitting; Cuff Location: Left Arm; Cuff Size: Standard Weight 0 lb Height 0 in Head Circumference 0.00 cm Results Date Description Value Details :15 HgA1C , Office (25148) HgA1C , Office 5.6 % (Normal) Range: 4.6 - 7.1 :15 Blood Glucose , Office (45932) Blood Glucose , Office 135 (Normal) 47-Pjn-924715:17 Bedside Glucose Comments: [facility] [address] [place], [place] [address] BEDSIDE GLU 126 mg/dL (Abnormal) Range: 70-110 Comments: MANAGEMENT OF PATIENT CARE PER NURSING PROTOCOL 24-May-2017 MISCELLANEOUS SPECIMEN See Note (Normal) Comments: [facility] [address] [facility] [address] [place], [place], [address] 7:30 Comments: Patient: JESSICA RODRIGUEZ : 1955 (62/F) Acct Num: [id number] Phys: Castillo MCMILLAN,Hodan Unit Num: [id number] Loc: [facility] [place] Specimen: [id number] Received: 05/24/17 - 1037 Spec Type: MIS [...] The lymph nodes are submitted in entirety. Thermograph Operator sections are submitted as follows: 1 multiple [...] dog ear. No mass lesion is identified. Thermograph Operator sections are submitted in four cassettes. / SJ:lilibeth 05/24/17 TC:0 CPT: 32469, 65017 HEADER OPERATION: Excision lymph node, axillary PRE-OP DIAGNOSIS: Left breast cancer, invasive ductal, ER/NJ positive, HER2 negative, bulky adenopathy of left axilla TISSUE SUBMITTED: A Left axillary contents, B Dog ear MICROSCOPIC DESCRIPTION Slides are reviewed. A. The largest lymph node contains benign histiocytic proliferation, fibrosis and minimal chronic inflammation co nsistent with previous biopsy and resection (S18-990). Immunohistochemistry ([id number]) supports the presence of isolated metastatic tumor cells in one out of seven lymph nodes. MICROSCOPIC DIAGNO SIS A. Left axillary contents, regional lymphadenectomy: Isolated metastatic tumor cells in one of seven lymph nodes. B. Dog ear, excision: Skin with attached fibrofatty tissue with reactive and reparative change and suture granulomas. No evidence of malignancy. AM:lilibeth 05/28/17 Signed Sotero Jeffih 05/30/17 <signature on file> :44 Bedside Glucose Comments: [facility] [address] [place] [address] BEDSIDE GLU 178 mg/dL (Abnormal) Range: 70-110 Comments: MANAGEMENT OF PATIENT CARE PER NURSING PROTOCOL : IMMUNOHISTOCHEMISTRY See Note (Normal) Comments: [facility] [address] [place] [place], [address] 00 Comments: Patient: JESSICA RODRIGUEZ : 1955 (62/F) Acct Num: [id number] Phys: Hodan Chong MD Unit Num: [id number] Loc: [facility] [place] Specimen: [id number] Received: 05/28/171425 Spec Type: IMM JOSELO TISSUES TISSUES: A. Axilla, NOS SPECIMEN INFORMATION: Tissue Source: A Left axillary contents Clinical Info: Left breast cancer Specimen Number: [id number] A1, A2, A4, A5, A7 CPT code: 02414, 02416 x4 METHODOLOGY: Deparaffinized sections of prefer/formalin-fixed tissue [...] and their performance characteristics dete rmined by [facility]. They may not have been cleared or approved by the U.S. Food and Drug Administration. The FDA has determined that such clearance or approval is not nece ssary. INTERPRETATION: A. Left axillary contents: Isolated metastatic tumor cells present in one out of seven lymph nodes. AM:rg 05/30/17 PHYSICIAN AND INSTITUTION [facility] [address], [place] [address] Signed Sotero Townsend 05/30/17 <signature on file> 3-Zeh-801381:05 Bedside Glucose Comments: [facility] [address] [place] [address] BEDSIDE GLU 162 mg/dL (Abnormal) Range: 70-110 Comments: MANAGEMENT OF PATIENT CARE PER NURSING PROTOCOL 20-Apr-20179:32 Bedside Glucose Comments: [address] [place], [place] [address] BEDSIDE GLU 137 mg/dL (Abnormal) Range: 70-110 Comments: MANAGEMENT OF PATIENT CARE PER NURSING PROTOCOL 19-Apr-20179:17 Basic Metabolic Profile (BMP) Comments: [address] [place], [address] GAP 9 (Normal) Range: 5-15 [...] criteria.Please note revised GLUCOSE reference range /02/2018. :17 CBC-Complete Blood Cnt No Diff Comments: [facility] [address] [place], [place], [id number] MPV 9.4 fL (Normal) Range: 6.2-12.0 PLT [...] (Normal) Range: 4.4-11.0 :17 Hemoglobin A1c Comments: [facility] [address] [place], [place], [address] HGB A1C 6.3 % (Normal) Range: 4.2-6.3 BREAST BIOPSY (CHOOSE SITE) See Note (Normal) Comments: [facility] [address] [place], [place], [address] 813:15 Comments: Patient: JESSICA RODRIGUEZ : 1955 (62/F) Acct Num: [id number] Phys: Castillo MCMILLAN,Hodan Unit Num: [id number] Loc: [facility] Specimen: [id number] Received: 04/06/171200 Spec Type: BREAST BX TISSUES TISSUES: Left breast, NOS COMMENT Immunohistochemistry ([id number]) supports the above diagnosis. ER/NJ/Lho6efz studies are being performed on sections of tumor and the results from this study will be reported separately ([id number]). Please make reference to previous specimen ([id number]) left breast, core biopsy with diagnosis of fibrocystic change wi th associated microcalcifications. GROSS DESCRIPTION Received is one container labeled with the patient's name and not further designated. The specimen consists of multiple elongated fragments o f bagley-yellowfibroadipose tissue that in aggregate measure 3 x 2 x 0.1 cm. The entire specimen is submitted in one cassette. / SJ:lilibeth 04/06/17 TC:0 CPT: 92421 HEADER OPERATION: Ultrasound-guided left breast needle core [...] on file> IMMUNOHISTOCHEMISTRY See Note (Normal) Comments: [facility] [address] [facility] [place], [place], [address] 80:00 Comments: Patient: JESSICA RODRIGUEZ : 1955 (62/F) Acct Num: [id number] Phys: Castillo MCMILLAN,Hodan Unit Num: [id number] Loc: [facility] Specimen: [id number] Received: 04/09/17 - 1250 Spec Type: IMMUNO TISSUES TISSUES: Left breast, NOS SPECIMEN INFORMATION: Tissue Source: Left breast needle core biopsy Clinical Info: Abnormal left mammogram/ultrasound Spe cimen Number: [id number] CPT code: 02903, 99901 x4, 39446 x3 METHODOLOGY: Deparaffinized sections of prefer/formalin-fixed tissue or PAP/DQ stained slides are incubated with monoclonal/polyclonal a ntibodies/oligonucleotide probes. Localization is made via biotin free immunoperoxidase method. Appropriate controls are performed and reacted as expected. Results on target cell population are indic ated in the following table: RESULTS: ANTIBODY / CLONE RESULT E-Cad (ECH-6) positive CK8 (19ygfrF96) positive CK5-6 (D5 AND 1684) nega tive Ki-67 (30-9) positive, moderate P53 (DO-7) positive MORPHOMETRIC ANALYSIS ER (clone 6F11) >95% , strong NJ (clone 16/1E2) variable, 0-11%, weak Her- 2Neu [...] recommended for all equivocal cases. Positivity/negativity for ER/NJ is reported if > or < 1% of the tumor cells are immuno- reactive, respectively. The ASCO/C AP criteria is used for scoring. Reference: Journal of Clinical Oncology, 2013; 31:8386-4780 AND 2009; 16:9516-7144. Duration of fixation: 54.5 Hrs; Sample Adequate: Yes. These assays have not bee n validated on decalcified tissues. Results should beinterpreted with caution given the likelihood of false negativity on decalcifiedspecimens. These tests were developed and their performance amanda cteristics determined by [facility]. They may not have been cleared or approved by the U.S. Food and Drug Administration. The FDA has determined that such clearance or appro esequiel is not necessary. INTERPRETATION: Left breast, ultrasound-guided needle core biopsy: Invasive ductal carcinoma, nuclear grade 3. Positive for estrogen receptors (favorable prognostic indicator). Positive for progesterone receptors (favorable prognostic indicator). Negative for overexpression of CDX7nob. SJ:lilibeth 04/10/17 PHYSICIAN AND INSTITUTION [address] [address] Signed Ildefonso Skinner 04/10/17 <signature on file> COLON BIOPSY (CHOOSE SITE) See Note (Normal) Comments: [address] [place], [place], [id number] 811:08 Comments: Patient: JESSICA RODRIGUEZ : 1955 (61/F) Acct Num: [id number] Phys: Yovani Mcduffie Unit Num: [id number] Loc: [facility] Specimen: [id number] Received: 03/01/17 - [...] one cassette. / SJ:lilibeth 03/02/17 TC:1 CPT: 03254 x2 HEADER OP ERATION: Colonoscopy with polypectomy [...] Signed Ildefonso Skinner 03/05/17 <signature on file> 77-Jie-60643:14 Metabolic Panel, Basic (05746) Comments: PATIENT NOT FASTINGPERFORMED BY: [facility]CoCommunity Medical CenterXixyvi5408 [facility] [id number] Calcium, Serum 9.2 mg/dL (Normal) Range: 8.7-10.3 [...] (Abnormal) Range: 65-99 :58 HgA1C , Office (93874) HgA1C , Office 6.8 % (Normal) Range: 4.6 - 7.1 :58 Blood Glucose , Office (61502) Blood Glucose , Office 166 (Normal) :17 CBC W/Diff, Automated Comments: [facility] [address] [place], [address] Absolute Lymph 1.78 {X10_3/ul} (Normal) Range: 0.83-4.51 [...] 4.2-5.4 WBC 7.4 K/mm3 (Normal) Range: 4.4-11.0 41-Acy-46895:17 Comprehensive Metabolic Profil Comments: [facility] [address] [place], [place], [id number] GAP 7 (Normal) Range: 5-15 CO2 29.0 [...] per A.D.A. criteria. :11 HgA1C , Office (14319) HgA1C , Office 6.3 % (Normal) Range: 4.6 - 7.1 :11 Blood Glucose , Office (92097) Blood Glucose , Office 154 (Normal) :56 CALCIFIDIOL (60822) VIT D 25 Comments: PATIENT WAS FASTINGPERFORMED BY: [employer] Rjbctm0101 [facility] [id number] Vitamin D, 25-Hydroxy 28.4 ng/mL (Abnormal) Range: 30.0-100.0 Comments: Vitamin D deficiency has been defined by the [place] [facility] and an Endocrine Society practice guideline as alevel of serum 25-OH vitamin D less than 20 ng/mL (1,2).The Endocrine Society went on to further define vitamin Dinsufficiency as a level between 21 and 29 ng/mL (2).1. IOM ([place] of Medicine). 2010. Dietary reference intakes for calcium and D. [place]: The National Academies Press.2. Sara MF, Johanna NC, Rosanna SOMMER, et al. Evaluation, treatment, and prevention of vitamin D deficiency: an Endocrine Society clinical practice guideline. JCEM. 2010; 96(7):1911-30. :56 TSH (47126) Comments: PATIENT WAS FASTINGPERFORMED BY: [facility] Rmckvg1445 [facility] [id number] TSH 0.824 {uIU/mL} (Normal) Range: 0.450-4.500 :56 MICROALBUMIN: CREATININE RATIO Comments: PATIENT WAS FASTINGPERFORMED BY: LabReferrizer Qubbub5422 [facility] [id number] (01518) AND (65229) Microalb/Creat Ratio 8.0 {mg/g_creat} (Normal) Range: 0.0-30.0 Microalbumin, Urine 8.3 ug/mL (Normal) Creatinine, Urine 103.7 mg/dL (Normal) :56 METABOLIC PANEL, COMPREHENSIVE Comments: PATIENT WAS FASTINGPERFORMED BY: InternetVistaCoCommunity Medical CenterKdfqdl7308 [facility] [id number] (74834) ALT (SGPT) 14 [iU]/L (Normal) Range: 0-32 [...] Glucose, Serum 145 mg/dL (Abnormal) Range: 65-99 99-Vtl-130979:56 CBC W/AUTO DIFF WBC (33944) Comments: PATIENT WAS FASTINGPERFORMED BY: [facility]VistaOaklawn Hospital6370 [facility] [id number] Immature Grans (Abs) 0.0 {x10E3/uL} (Normal) Range: [...] {x10E3/uL} (Normal) Range: 3.4-10.8 :56 LIPID PANEL (75338) Comments: PATIENT WAS FASTINGPERFORMED BY: [facility]Co[facility] CenterQhjkfs3321 [facility] [id number] LDL/HDL Ratio 1.6 {ratio_units} (Normal) Range: 0.0-3.2 [...] (Normal) Range: 100-199 :27 HgA1C , Office (13942) HgA1C , Office 7.6 % (Abnormal) Range: 4.6 - 7.1 :27 Blood Glucose , Office (77684) Blood Glucose , Office 192 (Normal) 09-Fuh-592005:11 HgA1C , Office (03752) HgA1C , Office 6.8 % (Normal) Range: 4.6 - 7.1 :33 Microscopic Examination Comments: PATIENT WAS FASTINGPERFORMED BY: [facility] [id number] Bacteria Few (Normal) Mucus Threads Present (Normal) Epithelial Cells (non renal) 0-10 {/hpf} (Normal) Range: 0 - 10 RBC 3-10 {/hpf} (Abnormal) Range: 0 - 2 WBC 0-5 {/hpf} (Normal) Range: 0 - 5 :31 Throat Culture (55986) Comments: PATIENT NOT FASTINGPERFORMED BY: [facility] [id number] Information: SRC:TH Result 1 BETAGC (Abnormal) Comments: [...] report (Abnormal) :55 Influenza A&B Viral Culture (92243) :55 Rapid Flu (25989 x 2) Influenza A Ag negative (Normal) :43 Rapid Strep Test, Office (92418) Rapid Strep Test, Office Negative (Normal) :33 CALCIFIDIOL (69721) VIT D 25 Comments: PATIENT WAS FASTINGPERFORMED BY: [facility] [id number] Vitamin D, 25-Hydroxy 30.8 ng/mL (Normal) Range: 30.0-100.0 Comments: Vitamin D deficiency has been defined by the [place] ofMedicine and an Endocrine Society practice guideline as alevel of serum 25-OH vitamin D less than 20 ng/mL (1,2).The Endocrine Society went on to further define vitamin Dinsufficiency as a level between 21 and 29 ng/mL (2).1. IOM ([place] of Medicine). 2010. Dietary reference intakes for calcium and D. [place]: The National Academies Press.2. Sara MF, Johanna JOSEPH, Rosanna SOMMER, et al. Evaluation, treatment, and prevention of vitamin D deficiency: an Endocrine Society clinical practice guideline. JCEM. 2010; 96(7):1911-30. :33 TSH (81092) Comments: PATIENT WAS FASTINGPERFORMED BY: easyfolioin [place] [id number] TSH 1.190 {uIU/mL} (Normal) Range: 0.450-4.500 :33 URINALYSIS, W/ MICRO (40068) Comments: PATIENT WAS FASTINGPERFORMED BY: [facility] [id number] Microscopic Examination See below: (Normal) Comments: Microscopic was indicated and was performed. Nitrite, Urine Negative (Normal) Urobilinogen,Semi-Qn 0.2 mg/dL (Normal) Range: 0.2-1.0 Bilirubin Negative (Normal) Occult Blood 1+ (Abnormal) Ketones Negative (Normal) Glucose Negative (Normal) Protein Negative (Normal) WBC Esterase 1+ (Abnormal) Appearance Clear (Normal) Urine-Color Yellow (Normal) pH 6.5 (Normal) Range: 5.0-7.5 Specific [place] 1.020 (Normal) Range: 1.005-1.030 :33 MICROALBUMIN: CREATININE RATIO Comments: PATIENT WAS FASTINGPERFORMED BY: [facility] [id number] (56912) AND (64865) Microalb/Creat Ratio 7.7 {mg/g_creat} (Normal) Range: 0.0-30.0 Microalbumin, Urine 7.4 ug/mL (Normal) Creatinine, Urine 96.3 mg/dL (Normal) 36-Unv-93154:33 METABOLIC PANEL, COMPREHENSIVE Comments: PATIENT WAS FASTINGPERFORMED BY: [facility]CoCommunity [facility] CenterQejpjs6252 [facility] [id number] (01442) ALT (SGPT) 16 [iU]/L (Normal) Range: 0-32 [...] mg/dL (Abnormal) Range: 65-99 :33 LIPID PANEL (34614) Comments: PATIENT WAS FASTINGPERFORMED BY: Embarr Downslin6370 [facility] [id number] LDL/HDL Ratio 2.0 {ratio_units} (Normal) Range: 0.0-3.2 [...] Range: 100-199 :33 CBC W/AUTO DIFF WBC (49333) Comments: PATIENT WAS FASTINGPERFORMED BY: LabCoTotal PrestigeVjmvdr4180 [facility] [id number] Immature Grans (Abs) 0.0 {x10E3/uL} (Normal) Range: [...] Range: 3.4-10.8 :06 Blood Glucose , Office (74567) Blood Glucose , Office 130 (Normal) :06 HgA1C , Office (90560) HgA1C , Office 6.3 % (Normal) Range: 4.6 - 7.1 :06 Rapid Strep Test, Office (33899) Rapid Strep Test, Office Negative (Normal) :48 HgA1C , Office (24892) HgA1C , Office 6.3 % (Normal) Range: 4.6 - 7.1 :48 Blood Glucose , Office (28512) Blood Glucose , Office 121 (Normal) :09 MICROALBUMIN: CREATININE RATIO Comments: PATIENT WAS FASTINGPERFORMED BY: [employer] Jqngkm4416 [facility] [id number] (85548) AND (40442) Microalb/Creat Ratio 3.7 {mg/g_creat} (Normal) Range: 0.0-30.0 Microalbumin, Urine 3.3 ug/mL (Normal) Creatinine, Urine 88.7 mg/dL (Normal) :09 URINALYSIS (96298) Comments: PATIENT WAS FASTINGPERFORMED BY: LabCoCommunity Medical CenterMlrkho6604 [facility] [id number] Microscopic Examination MICNIP (Normal) Comments: Microscopic not indicated and not performed. Nitrite, Urine Negative (Normal) Urobilinogen,Semi-Qn 0.2 mg/dL (Normal) Range: 0.2-1.0 Bilirubin Negative (Normal) Occult Blood Negative (Normal) Ketones Negative (Normal) Glucose Negative (Normal) Protein Negative (Normal) WBC Esterase Negative (Normal) Appearance Clear (Normal) Urine-Color Yellow (Normal) pH 6.0 (Normal) Range: 5.0-7.5 Specific [place] 1.017 (Normal) Range: 1.005-1.030 :09 TSH (90627) Comments: PATIENT WAS FASTINGPERFORMED BY: [facility]castCommunity Medical CenterBlmupx1772 [facility] [id number] TSH 1.390 {uIU/mL} (Normal) Range: 0.450-4.500 :09 CBC WITH MANUAL DIFF Comments: PATIENT WAS FASTINGPERFORMED BY: [employer] Romlom2299 [facility] [id number] Information: [id number] (36693) Immature Grans (Abs) 0.0 {x10E3/uL} (Normal) Range: [...] Panel, Comprehensive Comments: PATIENT WAS FASTINGPERFORMED BY: [employer]70 [facility]izOpenBuildingsAt[facility] [id number] (50836) ALT (SGPT) 16 [iU]/L (Normal) Range: 0-32 [...] mg/dL (Abnormal) Range: 65-99 :09 Lipid Panel (52040) Comments: PATIENT WAS FASTINGPERFORMED BY: Wundrbar6370 [facility] [id number] LDL/HDL Ratio 2.0 {ratio_units} (Normal) Range: 0.0-3.2 [...] 187 mg/dL (Normal) Range: 100-199 :09 CALCIFEDIOL (05820) Comments: PATIENT WAS FASTINGPERFORMED BY: BRISEYDA [employer] Gvmfus4749 [facility] [id number] Vitamin D, 25-Hydroxy 33.6 ng/mL (Normal) Range: 30.0-100.0 Comments: Vitamin D deficiency has been defined by the [place] ofMedicine and an Endocrine Society practice guideline as alevel of serum 25-OH vitamin D less than 20 ng/mL (1,2).The Endocrine Society went on to further define vitamin Dinsufficiency as a level between 21 and 29 ng/mL (2).1. IOM ([place] of Medicine). 2010. Dietary reference intakes for calcium and D. [place]: The National Academies Press.2. Sara MF, Johanna JOSEPH, Rosanna SOMMER, et al. Evaluation, treatment, and prevention of vitamin D deficiency: an Endocrine Society clinical practice guideline. JCEM. 2010; 96(7):1911-30. 5:15 HgA1C , Office (78283) HgA1C , Office 6.7 % (Normal) Range: 4.6 - 7.1 :15 Blood Glucose , Office (25646) Blood Glucose , Office 142 (Normal) :18 Microscopic Examination Comments: PATIENT WAS FASTINGPERFORMED BY: LabCoCommunity Medical CenterTsliby1496 [facility] [id number] Bacteria None seen (Normal) Mucus Threads Present (Normal) Epithelial Cells (non renal) 0-10 {/hpf} (Normal) Range: 0 - 10 RBC 0-2 {/hpf} (Normal) Range: 0 - 2 WBC 0-5 {/hpf} (Normal) Range: 0 - 5 :01 CBC W/Diff, Automated Comments: [facility] [address] [place], [address] Absolute Lymph 1.22 {X10_3/ul} (Normal) [...] 4.2-5.4 WBC 8.8 K/mm3 (Normal) Range: 4.4-11.0 0-Onb-331655:01 Comprehensive Metabolic Profil Comments: [facility] F[address] [place], [address] GAP 7 (Normal) Range: 5-15 CO2 29.0 [...] DIABETES MELLITUS per A.D.A. criteria. :18 TSH (35490) Comments: PATIENT WAS FASTINGPERFORMED BY: [facility] Njgjfb6836 [facility] [id number] TSH 1.070 {uIU/mL} (Normal) Range: 0.450-4.500 99-Coa-90051:18 URINALYSIS, W/ MICRO (26072) Comments: PATIENT WAS FASTINGPERFORMED BY: [facility]6370 [facility] [id number] Microscopic Examination See below: (Normal) Comments: Microscopic was indicated and was performed. Nitrite, Urine Negative (Normal) Urobilinogen,Semi-Qn 0.2 mg/dL (Normal) Range: 0.2-1.0 Bilirubin Negative (Normal) Occult Blood Trace (Abnormal) Ketones Negative (Normal) Glucose Negative (Normal) Protein Negative (Normal) WBC Esterase Negative (Normal) Appearance Clear (Normal) Urine-Color Yellow (Normal) pH 6.5 (Normal) Range: 5.0-7.5 Specific [place] 1.015 (Normal) Range: 1.005-1.030 :18 MICROALBUMIN: CREATININE RATIO Comments: PATIENT WAS FASTINGPERFORMED BY: [facility]6370 [facility] [id number] (36816) AND (38217) Microalb/Creat Ratio 5.4 {mg/g_creat} (Normal) Range: 0.0-30.0 Microalbumin, Urine 5.9 ug/mL (Normal) Range: 0.0-17.0 Creatinine, Urine 109.1 mg/dL (Normal) Range: 15.0-278.0 :18 CBC W/AUTO DIFF WBC Comments: PATIENT WAS FASTINGPERFORMED BY: [facility]6370 [facility] [id number] Information: [id number] (97625) Immature Grans (Abs) 0.0 {x10E3/uL} (Normal) Range: [...] PANEL, COMPREHENSIVE Comments: PATIENT WAS FASTINGPERFORMED BY: LabCoCommunity Medical CenterEfrdhh3257 [facility] [id number] (62444) ALT (SGPT) 18 [iU]/L (Normal) Range: 0-32 [...] Glucose, Serum 141 mg/dL (Abnormal) Range: 65-99 86-Cbo-07113:18 LIPID PANEL (55316) Comments: PATIENT WAS FASTINGPERFORMED BY: [employer]70 [facility] [id number] LDL/HDL Ratio 1.8 {ratio_units} (Normal) Range: 0.0-3.2 [...] 199 mg/dL (Normal) Range: 100-199 :18 CALCIFIDIOL (95171) VIT D 25 Comments: PATIENT WAS FASTINGPERFORMED BY: Wundrbar6370 [facility] [id number] Vitamin D, 25-Hydroxy 27.9 ng/mL (Abnormal) Range: 30.0-100.0 Comments: Vitamin D deficiency has been defined by the [place] ofMedicine and an Endocrine Society practice guideline as alevel of serum 25-OH vitamin D less than 20 ng/mL (1,2).The Endocrine Society went on to further define vitamin Dinsufficiency as a level between 21 and 29 ng/mL (2).1. IOM ([place] of Medicine). 2010. Dietary reference intakes for calcium and D. [place]: The National AcademRemoov Press.2. Johanna Gama, Rosanna SOMMER, et al. Evaluation, treatment, and prevention of vitamin D deficiency: an Endocrine Society clinical practice guideline. JCEM. 2010; 96(7):1911-30. :08 HgA1C , Office (91898) HgA1C , Office 6.3 % (Normal) Range: 4.6 - 7.1 :08 Blood Glucose , Office (85221) Blood Glucose , Office 253 (Normal) :20 CALCIFIDIOL (29577) VIT D Comments: PATIENT WAS FASTINGPERFORMED BY: LabCoCommunity Medical CenterIjvueu9046 [facility] [id number] Information: [id number] 25 Vitamin D, 25-Hydroxy 32.3 ng/mL (Normal) Range: 30.0-100.0 Comments: Vitamin D deficiency has been defined by the [place] of[facility] and an Endocrine Society practice guideline as alevel of serum 25-OH vitamin D less than 20 ng/mL (1,2).The Endocrine Society went on to further define vitamin Dinsufficiency as a level between 21 and 29 ng/mL (2).1. IOM ([place] of Medicine). 2010. Dietary reference intakes for calcium and D. [place]: The National Academies Press.2. Johanna Gama, Rosanna SOMMER, et al. Evaluation, treatment, and prevention of vitamin D deficiency: an Endocrine Society clinical practice guideline. JCEM. 2010; 96(7):1911-30. :52 HgA1C , Office (98631) HgA1C , Office 6.4 % (Normal) Range: 4.6 - 7.1 :52 Blood Glucose , Office (08217) Blood Glucose , Office 124 (Normal) :03 CBC W/Diff, Automated Comments: Test performed at:[facility] [address] [place], [place] [id number] Absolute Lymph 1.29 {X10_3/ul} (Normal) Range: 0.83-4.51 [...] 18-Aug-20149:03 Comprehensive Metabolic Profil Comments: Test performed at:[facility] [address] [place], [place] [address] GAP 7 (Normal) Range: 5-15 CO2 29.0 [...] Panel (7) Comments: PATIENT WAS FASTINGPERFORMED BY: [employer] Doyqwv7229 [facility] [id number] ALT (SGPT) 16 [iU]/L (Normal) Range: 0-32 AST (SGOT) 18 [iU]/L (Normal) Range: 0-40 Alkaline Phosphatase, S 71 [iU]/L (Normal) Range: 39-117 Bilirubin, Direct 0.12 mg/dL (Normal) Range: 0.00-0.40 Bilirubin, Total 0.4 mg/dL (Normal) Range: 0.0-1.2 Albumin, Serum 4.4 g/dL (Normal) Range: 3.5-5.5 Protein, Total, Serum 6.5 g/dL (Normal) Range: 6.0-8.5 :43 Lipid Panel With LDL/HDL Comments: PATIENT WAS FASTINGPERFORMED BY: Buck's Beverage BarnCommunity Medical CenterGdepas5489 [facility] [id number] Information: [id number] Ratio LDL/HDL Ratio 1.4 {ratio_units} (Normal) Range: [...] Cholesterol, Total 158 mg/dL (Normal) Range: 100-199 87-Svl-129444:13 CBC W/Diff, Automated Comments: Test performed at:[facility] Eqmcurreid[address] [place] [address] Absolute Lymph 2.30 {X10_3/ul} (Normal) Range: 0.83-4.51 [...] :13 Comprehensive Metabolic Profil Comments: Test performed at:[facility] Kdcaifhoch5106 [facility] [place], [place] [address] ; ordered by nathan GAP 7 (Normal) [...] <126 mg/dLsuggests IMPAIRED HOMEOSTASIS per A.D.A. criteria. 73-Ddq-229898:18 CBC W/Diff, Automated Comments: Test performed at:[facility] Ccwajixuub6197 [facility] [place] [address] Absolute Lymph 2.19 {X10_3/ul} (Normal) Range: 0.83-4.51 [...] 4.2-5.4 WBC 6.3 K/mm3 (Normal) Range: 4.4-11.0 49-Uba-380677:18 Comprehensive Metabolic Profil Comments: Test performed at:[facility] Ketspmujgp08[address] [place] [address] GAP 4 (Abnormal) Range: 5-15 CO2 32.0 [...] <126 mg/dLsuggests IMPAIRED HOMEOSTASIS per A.D.A. criteria. 27-Qtk-576070:01 LU[place] CULTURE-OTHER (88185) Comments: PATIENT NOT FASTINGPERFORMED BY: LabCoCommunity Medical CenterXqeiil1109 [facility] [id number] Information: SRC:THRT [id number] Result 1 RRF (Normal) Comments: Routine respiratory radha Upper Respiratory Culture Final report (Normal) 10-Aim-14792:11 [place] Client Glucose Comments: Test performed at:[facility] [address] [place] [address] [id number] GLU 124 mg/dL (Abnormal) Range: 70-110 Comments: Fasting Glucose result from 110 to <126 mg/dLsuggests IMPAIRED HOMEOSTASIS per A.D.A. criteria. 12-Kmy-12850:11 [place] Client Lipid Profile Comments: Test performed at:[facility] Dbhwiujeis4821 [place], [place] [address] VLDL 32 mg/dL (Normal) Range: 5-40 LDL [...] Microscopic Examination Comments: PATIENT WAS FASTINGPERFORMED BY: LabReferrizer Hfdelx2810 [facility] [place] [id number] Bacteria None seen (Normal) Mucus Threads Present (Normal) Epithelial Cells (non renal) 0-10 {/hpf} (Normal) Range: 0 - 10 RBC 0-2 {/hpf} (Normal) Range: 0 - 2 WBC 0-5 {/hpf} (Normal) Range: 0 - 5 :01 Vitamin D Hydroxy (98933) Comments: PATIENT WAS FASTINGPERFORMED BY: [employer] Ntustq0155 [facility] [employer] [place] [id number] Vitamin D, 25-Hydroxy 31.0 ng/mL (Normal) Range: 30.0-100.0 Comments: Vitamin D deficiency has been defined by the [place] ofMedicine and an Endocrine Society practice guideline as alevel of serum 25-OH vitamin D less than 20 ng/mL (1,2).The Endocrine Society went on to further define vitamin Dinsufficiency as a level between 21 and 29 ng/mL (2).1. IOM ([place] of Medicine). 2010. Dietary reference intakes for calcium and D. [place]: The National Academies Press.2. Sara MF, Johanna [place], Rosanna SOMMER, et al. Evaluation, treatment, and prevention of vitamin D deficiency: an Endocrine Society clinical practice guideline. JCEM. 2010; 96(7):1911-30. :01 TSH (59204) Comments: PATIENT WAS FASTINGPERFORMED BY: [facility] Tivtdl9652 [facility] [place] [id number] TSH 0.986 {uIU/mL} (Normal) Range: 0.450-4.500 :01 URINALYSIS, W/ MICRO (42733) Comments: PATIENT WAS FASTINGPERFORMED BY: BrandcastCommunity Medical CenterVqdjsb3912 [facility] [id number] Microscopic Examination See below: (Normal) Comments: Microscopic was indicated and was performed. Microscopic Examination MICRON (Normal) Comments: Microscopic follows if indicated. Nitrite, Urine Negative (Normal) Urobilinogen,Semi-Qn 0.2 mg/dL (Normal) Range: 0.0-1.9 Bilirubin Negative (Normal) Occult Blood Negative (Normal) Ketones Negative (Normal) Glucose Negative (Normal) Protein Negative (Normal) WBC Esterase Negative (Normal) Appearance Clear (Normal) Urine-Color Yellow (Normal) pH 6.5 (Normal) Range: 5.0-7.5 Specific [place] 1.018 (Normal) Range: 1.005-1.030 :01 MICROALBUMIN: CREATININE RATIO Comments: PATIENT WAS FASTINGPERFORMED BY: BrandcastCommunity Medical CenterQffrvh4570 [facility] [id number] (32468) AND (72850) Microalb/Creat Ratio 2.1 {mg/g_creat} (Normal) Range: 0.0-30.0 Microalbumin, Urine 2.0 ug/mL (Normal) Range: 0.0-17.0 Creatinine, Urine 93.5 mg/dL (Normal) Range: 15.0-278.0 :01 METABOLIC PANEL, COMPREHENSIVE Comments: PATIENT WAS FASTINGPERFORMED BY: [facility] HospitalReferrizerCommunity Medical CenterHwbqek0510 [facility] [id number] (44311) ALT (SGPT) 12 [iU]/L (Normal) Range: 0-32 [...] mg/dL (Abnormal) Range: 65-99 :01 LIPID PANEL (87426) Comments: PATIENT WAS FASTINGPERFORMED BY: [facility]OzAt[facility] [id number] LDL/HDL Ratio 2.3 {ratio_units} (Normal) Range: 0.0-3.2 [...] Range: 100-199 :01 CBC W/AUTO DIFF WBC (33270) Comments: PATIENT WAS FASTINGPERFORMED BY: [employer]70 [facility] [id number] Immature Grans (Abs) 0.0 {x10E3/uL} (Normal) Range: [...] (Normal) Range: 3.4-10.8 :25 HgA1C , Office (53173) HgA1C , Office 6.5 % (Normal) Range: 4.6 - 7.1 :25 Blood Glucose , Office (67015) Blood Glucose , Office 143 (Normal) :36 URINE [place] CULTURE (BALDO Comments: PATIENT NOT FASTINGPERFORMED BY: LabCoPresbyterian Kaseman HospitalWupmvn3177 [facility] [id number] Information: SRC:GURDEEP [id number] COL COUNT) (42433) Result 1 PROTMP (Abnormal) Comments: Proteus mirabilis/bwcqiow375 Colonies/mLBeta hemolytic Streptococcus, group B10,000-25,000 colony forming [...] S Urine Final report Culture,Comprehensi (Abnormal) ve 03-Cqf-08137:17 Urinalysis, Office (32206) UA - LEUKOCYTE ESTERASE Large (Normal) UA - NITRITE Positive (Normal) URINE UROBILINGN BALDO TIMED Normal mg/dL (Normal) UA - PROTEIN Trace mg/dL (Normal) UA - PH 6.5 (Normal) UA - BLOOD Negative (Normal) UA - SPECIFIC GRAVITY 1.025 (Normal) UA - KETONES Moderate mg/dL (Normal) UA - BILIRUBIN Negative (Normal) UA - GLUCOSE Negative (Normal) 28-Dad-317457:42 CBCD ALC 1.95 {X10_3/ul} (Normal) Range: 0.83-4.51 [...] 4.2-5.4 WBC 6.5 K/mm3 (Normal) Range: 4.4-11.0 58-Rcr-797224:42 CMP GAP 5 (Normal) Range: 5-15 CO2 [...] 126 mg/dLsuggests DIABETES MELLITUS per A.D.A. criteria. 92-Nkp-164004:09 [place] CULTURE-OTHER (38379) Comments: PATIENT NOT FASTINGPERFORMED BY: [employer] Hkdhlt6367 [facility] [id number] Information: SRC:THRT [id number] Result 1 BETAGG (Abnormal) Comments: Beta hemolytic Streptococcus, group GModerate growthPenicillin and ampicillin are drugs of choice for treatment ofbeta- hemolytic streptococcal infections. Susceptibility testing ofpenicillins and other beta-lactam agents approved by the FDA fortreatment of beta-hemolytic streptococcal infections need not beperformed routinely because nonsusceptible isolates are extremelyrare in any beta-hemolytic stre ptococcus and have not been reportedfor Streptococcus pyogenes (group A). (CLSI 2010) Upper Respiratory Culture Final report (Abnormal) 88-Xxa-26913:09 Rapid Strep Test, Office (12726) Rapid Strep Test, Office Negative (Normal) 65-Fre-03832:12 MICROALBUMIN: CREATININE RATIO Comments: PATIENT WAS FASTINGPERFORMED BY: [employer] Onmwnq7941 [facility] [id number] (86128) AND (75225) Microalb/Creat Ratio 6.3 {mg/g_creat} (Normal) Range: 0.0-30.0 Microalbumin, Urine 10.0 ug/mL (Normal) Range: 0.0-17.0 Creatinine, Urine 157.7 mg/dL (Normal) Range: 15.0-278.0 :12 CALCIFEDIOL (21774) Comments: PATIENT WAS FASTINGPERFORMED BY: [employer] Bjgdss7651 [facility] [id number] Vitamin D, 25-Hydroxy 26.6 ng/mL (Abnormal) Range: 30.0-100.0 Comments: Vitamin D deficiency has been defined by the [place] ofMedicine and an Endocrine Society practice guideline as alevel of serum 25-OH vitamin D less than 20 ng/mL (1,2).The Endocrine Society went on to further define vitamin Dinsufficiency as a level between 21 and 29 ng/mL (2).1. IOM ([place] of Medicine). 2010. Dietary reference intakes for calcium and D. [place]: The National Academies Press.2. Sara MF, Johanna JOSEPH, Rosanna SOMMER, et al. Evaluation, treatment, and prevention of vitamin D deficiency: an Endocrine Society clinical practice guideline. JCEM. 2010; 96(7):1911-30. :12 CBC with manual diff Comments: PATIENT WAS FASTINGPERFORMED BY: [facility]Co Ynfrrr7845 [facility] [id number] Information: [id number] (22535) Immature Grans (Abs) 0.0 {x10E3/uL} (Normal) Range: [...] (THYROID STIMULATING Comments: PATIENT WAS FASTINGPERFORMED BY: [facility]6370 [facility] [id number] HORMONE) (16011) TSH 1.420 {uIU/mL} (Normal) Range: 0.450-4.500 :12 LIPID PANEL (43573) Comments: PATIENT WAS FASTINGPERFORMED BY: [facility]6370 [facility] [id number] LDL/HDL Ratio 2.4 {ratio_units} (Normal) Range: 0.0-3.2 [...] PANEL, COMPREHENSIVE Comments: PATIENT WAS FASTINGPERFORMED BY: [facility]6370 [facility] [id number] (35156) ALT (SGPT) 18 [iU]/L (Normal) Range: 0-32 [...] (Abnormal) Range: 65-99 :21 HgA1C , Office (44603) HgA1C , Office 6.1 % (Normal) Range: 4.6 - 7.1 :21 Blood Glucose , Office (65075) Blood Glucose , Office 153 (Normal) :54 [...] 4.2-5.4 WBC 6.1 K/mm3 (Normal) Range: 4.4-11.0 4-Frk-956170:54 CMP GAP 7 (Normal) Range: 5-15 CO2 [...] 7-18 GLU 86 mg/dL (Normal) Range: 70-110 20-Wgj-036542:04 CBCD ANC 3.8 {X10_3/uL} (Normal) Range: 2.0-7.7 [...] 4.2-5.4 WBC 6.1 K/mm3 (Normal) Range: 4.4-11.0 98-Ghz-019220:04 CMP CO2 29.0 mmol/L (Normal) Range: 21.0-32.0 [...] 7-18 GLU 90 mg/dL (Normal) Range: 70-110 7-Ude-433431:49 Microscopic Examination Comments: PATIENT WAS FASTINGPERFORMED BY: [employer] Apvtbr7755 [facility] [id number] Bacteria None seen (Normal) Mucus Threads Present (Normal) Epithelial Cells (non renal) 0-10 {/hpf} (Normal) Range: 0 - 10 RBC 0-3 {/hpf} (Normal) Range: 0 - 3 WBC 0-5 {/hpf} (Normal) Range: 0 - 5 :09 HgA1C , Office (25305) HgA1C , Office 6.2 % (Normal) Range: 4.6 - 7.1 :09 Blood Glucose , Office (83202) Blood Glucose , Office 152 (Normal) :12 LIPID PANEL (23512) Comments: PATIENT WAS FASTINGPERFORMED BY: [employer] Phommp7815 [facility] [id number] LDL Cholesterol Calc 93 mg/dL (Normal) Range: 0-99 LDL/HDL Ratio 1.7 {ratio_units} (Normal) Range: 0.0-3.2 VLDL Cholesterol Huy 28 mg/dL (Normal) Range: 5-40 HDL Cholesterol 56 mg/dL (Normal) Comments: According to ATP-III Guidelines, HDL-C >59 mg/dL is considered anegative risk factor for CHD. Cholesterol, Total 177 mg/dL (Normal) Range: 100-199 Triglycerides 141 mg/dL (Normal) Range: 0-149 :12 TSH (83824) Comments: PATIENT WAS FASTINGPERFORMED BY: BrandcastCommunity Medical CenterPhoick1031 [facility] [id number] TSH 1.090 {uIU/mL} (Normal) Range: 0.450-4.500 :12 MICROALBUMIN: CREATININE RATIO Comments: PATIENT WAS FASTINGPERFORMED BY: [employer] Npftyg8373 [facility] [id number] (83403) AND (26708) Microalb/Creat Ratio 4.4 {mg/g_creat} (Normal) Range: 0.0-30.0 Creatinine, Urine 110.3 mg/dL (Normal) Range: 15.0-278.0 Microalbumin, Urine 4.9 ug/mL (Normal) Range: 0.0-17.0 :12 URINALYSIS, W/ MICRO (58205) Comments: PATIENT WAS FASTINGPERFORMED BY: [employer]70 [facility] [id number] Microscopic Examination See below: (Normal) Microscopic Examination MICRON (Normal) Comments: Microscopic follows if indicated. Nitrite, Urine Negative (Normal) Urobilinogen,Semi-Qn 0.2 mg/dL (Normal) Range: 0.0-1.9 Bilirubin Negative (Normal) Ketones Negative (Normal) Occult Blood Negative (Normal) Glucose Negative (Normal) Protein Negative (Normal) WBC Esterase Negative (Normal) Appearance Clear (Normal) Urine-Color Yellow (Normal) pH 7.0 (Normal) Range: 5.0-7.5 Specific [place] 1.021 (Normal) Range: 1.005-1.030 :12 METABOLIC PANEL, COMPREHENSIVE Comments: PATIENT WAS FASTINGPERFORMED BY: [employer]70 [facility] [id number] (12189) ALT (SGPT) 14 [iU]/L (Normal) Range: 0-32 [...] MANUAL DIFF Comments: PATIENT WAS FASTINGPERFORMED BY: LabCoCommunity Medical CenterLdinds1771 [facility] [id number] Information: [id number] (12342) Immature Grans (Abs) 0.0 {x10E3/uL} (Normal) Range: [...] (Normal) Range: 3.4-10.8 :20 HgA1C , Office (24526) HgA1C , Office 6.2 % (Normal) Range: 4.6 - 7.1 :20 Blood Glucose , Office (21822) Blood Glucose , Office 116 (Normal) 12-Pjg-530116:36 CULTURE, SPUTUM (24192) Comments: PATIENT NOT FASTINGPERFORMED BY: LabTuan800 [facility] [id number] Information: SRC:[facility] [id number] Result 1 RRF (Normal) Comments: Routine respiratory radha Lower Respiratory Culture Final report (Normal) :55 HgA1C , Office (70210) HgA1C , Office 6.2 % (Normal) Range: 4.6 - 7.1 :55 Blood Glucose , Office (72064) Blood Glucose , Office 188 (Normal) :28 LIPID PANEL (12849) Comments: PATIENT WAS FASTINGPERFORMED BY: LabReferrizerPresbyterian Kaseman HospitalDigfmo1617 [facility] [id number] Information: ADD [id number] AND DRAW FEE 99 6660 LDL/HDL Ratio [...] (Normal) Range: 100-199 :06 HgA1C , Office (79433) HgA1C , Office 5.9 % (Normal) Range: 4.6 - 7.1 :06 Blood Glucose , Office (81393) Blood Glucose , Office 94 (Normal) :48 TSH (36832) Comments: PATIENT WAS FASTINGPERFORMED BY: [facility] Bever[facility] BarnPresbyterian Kaseman HospitalQjbxwd6587 [facility] [id number] TSH 1.110 {uIU/mL} (Normal) Range: 0.450-4.500 :48 URINALYSIS, W/ MICRO Comments: PATIENT WAS FASTINGPERFORMED BY: [facility] Bever[facility] BarnCommunity Medical CenterOgpmpg4316 [facility] [id number] Information: [id number] (65989) Microscopic Examination See below: (Normal) Microscopic Examination MICRON (Normal) Comments: Microscopic follows if indicated. Nitrite, Urine Negative (Normal) Urobilinogen,Semi-Qn 0.2 mg/dL (Normal) Range: 0.0-1.9 Bilirubin Negative (Normal) Occult Blood Negative (Normal) Ketones Negative (Normal) Glucose Negative (Normal) Protein Negative (Normal) WBC Esterase Negative (Normal) Appearance Clear (Normal) Urine-Color Yellow (Normal) pH 7.0 (Normal) Range: 5.0-7.5 Specific [place] 1.018 (Normal) Range: 1.005-1.030 :48 MICROALBUMIN: CREATININE RATIO Comments: PATIENT WAS FASTINGPERFORMED BY: [facility] Bever[facility] BarnCommunity Medical CenterQirpez1725 [facility] [id number] (69901) AND (64450) Microalb/Creat Ratio 2.8 {mg/g_creat} (Normal) Range: 0.0-30.0 Microalbumin, Urine 2.8 ug/mL (Normal) Range: 0.0-17.0 Creatinine, Urine 100.6 mg/dL (Normal) Range: 15.0-278.0 :48 LIPID PANEL (46473) Comments: PATIENT WAS FASTINGPERFORMED BY: [employer] Wymvcw5984 [facility] [id number] LDL/HDL Ratio 1.9 {ratio_units} (Normal) Range: 0.0-3.2 [...] Microscopic Examination Comments: PATIENT WAS FASTINGPERFORMED BY: [employer] Yepxte4215 [facility] [id number] Bacteria None seen (Normal) Epithelial Cells (non renal) 0-10 {/hpf} (Normal) Range: 0 - 10 RBC 0-3 {/hpf} (Normal) Range: 0 - 3 WBC 0-5 {/hpf} (Normal) Range: 0 - 5 :21 Blood Glucose , Office (41790) Blood Glucose , Office 127 (Normal) :21 HgA1C , Office (49350) HgA1C , Office 6.2 % (Normal) Range: 4.6 - 7.1 :45 HgA1C , Office (14850) HgA1C , Office 6.9 % (Normal) Range: 4.6 - 7.1 :45 Blood Glucose , Office (76728) Blood Glucose , Office 238 (Normal) :41 Microscopic Examination Comments: PATIENT WAS FASTINGPERFORMED BY: [employer] Qyczor6477 [facility] [id number] Bacteria None seen (Normal) Mucus Threads Present (Normal) Epithelial Cells (non renal) 0-10 {/hpf} (Normal) Range: 0 - 10 RBC 0-3 {/hpf} (Normal) Range: 0 - 3 WBC 0-5 {/hpf} (Normal) Range: 0 - 5 :41 TSH (32486) Comments: PATIENT WAS FASTINGPERFORMED BY: [facility]6370 [facility] [id number] TSH 1.290 {uIU/mL} (Normal) Range: 0.450-4.500 :41 URINALYSIS, W/ MICRO (09172) Comments: PATIENT WAS FASTINGPERFORMED BY: [facility]6370 [facility] [id number] Microscopic Examination See below: (Normal) Nitrite, Urine Negative (Normal) Urobilinogen,Semi-Qn 0.2 mg/dL (Normal) Range: 0.0-1.9 Bilirubin Negative (Normal) Occult Blood Negative (Normal) Ketones Negative (Normal) Glucose Negative (Normal) Protein Negative (Normal) WBC Esterase 1+ (Abnormal) Appearance Clear (Normal) Urine-Color Yellow (Normal) pH 7.5 (Normal) Range: 5.0-7.5 Specific [place] 1.020 (Normal) Range: 1.005-1.030 :41 MICROALBUMIN: CREATININE RATIO Comments: PATIENT WAS FASTINGPERFORMED BY: [facility]6370 [facility] [id number] (13950) AND (12458) Microalb/Creat Ratio 2.0 {mg/g_creat} (Normal) Range: 0.0-30.0 Microalbumin, Urine 2.4 ug/mL (Normal) Range: 0.0-17.0 Creatinine, Urine 119.8 mg/dL (Normal) Range: 15.0-278.0 :41 METABOLIC PANEL, COMPREHENSIVE Comments: PATIENT WAS FASTINGPERFORMED BY: [facility]6370 [facility] [id number] (22606) ALT (SGPT) 19 [iU]/L (Normal) Range: 0-40 [...] mg/dL (Abnormal) Range: 65-99 :41 LIPID PANEL (46168) Comments: PATIENT WAS FASTINGPERFORMED BY: [facility] TechnologyThe [facility] [id number] LDL/HDL Ratio 1.8 {ratio_units} (Normal) Range: 0.0-3.2 [...] MANUAL DIFF Comments: PATIENT WAS FASTINGPERFORMED BY: Wundrbar6370 [facility] [id number] Information: [id number] (54950) Immature Grans (Abs) 0.0 {x10E3/uL} (Normal) Range: [...] (Normal) Range: 4.0-10.5 :07 HgA1C , Office (74345) HgA1C , Office 6.4 % (Normal) Range: 4.6 - 7.1 :07 Blood Glucose , Office (12573) Blood Glucose , Office 223 (Normal) :01 HgA1C , Office (24887) HgA1C , Office 6.1 % (Normal) Range: 4.6 - 7.1 :01 Blood Glucose , Office (83302) Blood Glucose , Office 185 (Normal) :28 Hepatic Function Panel (7) Comments: PATIENT WAS FASTINGPERFORMED BY: Wundrbar6370 [facility] [id number] ALT (SGPT) 19 [iU]/L (Normal) Range: 0-40 AST (SGOT) 19 [iU]/L (Normal) Range: 0-40 Alkaline Phosphatase, S 78 [iU]/L (Normal) Range: 25-150 Bilirubin, Direct 0.12 mg/dL (Normal) Range: 0.00-0.40 Bilirubin, Total 0.3 mg/dL (Normal) Range: 0.0-1.2 Albumin, Serum 4.3 g/dL (Normal) Range: 3.5-5.5 Protein, Total, Serum 6.8 g/dL (Normal) Range: 6.0-8.5 :28 Lipid Panel With LDL/HDL Comments: PATIENT WAS FASTINGPERFORMED BY: Wundrbar6370 [facility] [id number] Ratio LDL/HDL Ratio 1.6 {ratio_units} (Normal) Range: 0.0-3.2 LDL Cholesterol Calc 81 mg/dL (Normal) Range: 0-99 VLDL Cholesterol Huy 31 mg/dL (Normal) Range: 5-40 HDL Cholesterol 51 mg/dL (Normal) Comments: According to ATP-III Guidelines, HDL-C >59 mg/dL is considered anegative risk factor for CHD. Triglycerides 154 mg/dL (Abnormal) Range: 0-149 Cholesterol, Total 163 mg/dL (Normal) Range: 100-199 27-Mzl-588980:27 SPINE, LUMBAR (ROUTINE) Radiology Report See Note [...] GERARDO PORTILLO MD :22 HgA1C , Office (33135) HgA1C , Office 6.1 % (Normal) Range: 4.6 - 7.1 :22 Blood Glucose , Office (88406) Blood Glucose , Office 140 (Normal) :19 URINALYSIS (88856) Comments: PATIENT WAS FASTINGPERFORMED BY: [facility]6370 [facility] [id number] Microscopic Examination MICRON (Normal) Comments: Microscopic follows if indicated. Nitrite, Urine Negative (Normal) Urobilinogen,Semi-Qn 0.2 mg/dL (Normal) Range: 0.0-1.9 Bilirubin Negative (Normal) Occult Blood Negative (Normal) Ketones Negative (Normal) Glucose Negative (Normal) Protein Negative (Normal) WBC Esterase Negative (Normal) Appearance Clear (Normal) Urine-Color Yellow (Normal) pH 7.0 (Normal) Range: 5.0-7.5 Specific [place] 1.016 (Normal) Range: 1.005-1.030 :19 MICROALBUMIN: CREATININE RATIO Comments: PATIENT WAS FASTINGPERFORMED BY: [employer] Uvzbjn7141 [facility] [id number] (48101) AND (98497) Microalb/Creat Ratio 1.6 {mg/g_creat} (Normal) Range: 0.0-30.0 Microalbumin, Urine 1.9 ug/mL (Normal) Range: 0.0-17.0 Creatinine, Urine 120.1 mg/dL (Normal) Range: 15.0-278.0 :19 TSH (29935) Comments: PATIENT WAS FASTINGPERFORMED BY: BrandcastPresbyterian Kaseman HospitalNuguai6198 [facility] [id number] TSH 1.310 {uIU/mL} (Normal) Range: 0.450-4.500 :19 Metabolic Panel, Comments: PATIENT WAS FASTINGPERFORMED BY: [facility]castCommunity Medical CenterOqyqcj9654 [facility] [id number] Information: [id number] Comprehensive (18307) ALT (SGPT) 19 [iU]/L (Normal) Range: 0-40 [...] mg/dL (Abnormal) Range: 65-99 :19 Lipid Panel (79471) Comments: PATIENT WAS FASTINGPERFORMED BY: [facility]At[facility] [id number] LDL/HDL Ratio 2.5 {ratio_units} (Normal) Range: 0.0-3.2 LDL Cholesterol Calc 121 mg/dL (Abnormal) Range: 0-99 VLDL Cholesterol Huy 28 mg/dL (Normal) Range: 5-40 HDL Cholesterol 48 mg/dL (Normal) Comments: According to ATP-III Guidelines, HDL-C >59 mg/dL is considered anegative risk factor for CHD. Triglycerides 142 mg/dL (Normal) Range: 0-149 Cholesterol, Total 197 mg/dL (Normal) Range: 100-199 :30 HgA1C , Office (07456) HgA1C , Office 6.5 % (Normal) Range: 4.6 - 7.1 :30 Blood Glucose , Office (07150) Blood Glucose , Office 154 (Normal) :12 Microscopic Examination Comments: PATIENT WAS FASTINGPERFORMED BY: Permabit TechnologyThe [facility] Hospital [id number] Bacteria None seen (Normal) Mucus Threads Present (Normal) Epithelial Cells (non renal) 0-10 {/hpf} (Normal) Range: 0 - 10 RBC 0-3 {/hpf} (Normal) Range: 0 - 3 WBC 0-5 {/hpf} (Normal) Range: 0 - 5 :12 TSH (35504) Comments: PATIENT WAS FASTINGPERFORMED BY: [employer] [facility] [id number] TSH 1.260 {uIU/mL} (Normal) Range: 0.450-4.500 :12 URINALYSIS, W/ MICRO (84334) Comments: PATIENT WAS FASTINGPERFORMED BY: Sanghvi [facility] [id number] Microscopic Examination See below: (Normal) Bilirubin Negative (Normal) Microscopic Examination MICRON (Normal) Comments: Microscopic follows if indicated. Nitrite, Urine Negative (Normal) Occult Blood Negative (Normal) Urobilinogen,Semi-Qn 0.2 mg/dL (Normal) Range: 0.0-1.9 Glucose Negative (Normal) Ketones Negative (Normal) Protein Negative (Normal) Appearance Clear (Normal) pH 7.0 (Normal) Range: 5.0-7.5 Urine-Color Yellow (Normal) WBC Esterase Negative (Normal) Specific [place] 1.017 (Normal) Range: 1.005-1.030 :12 MICROALBUMIN: CREATININE RATIO Comments: PATIENT WAS FASTINGPERFORMED BY: Sanghvi [facility] [id number] (82397) AND (03417) Microalb/Creat Ratio 2.4 {mg/g_creat} (Normal) Range: 0.0-30.0 Microalbumin, Urine 3.2 ug/mL (Normal) Range: 0.0-17.0 Creatinine, Urine 134.3 mg/dL (Normal) Range: 15.0-278.0 :12 METABOLIC PANEL, COMPREHENSIVE Comments: PATIENT WAS FASTINGPERFORMED BY: [employer] Wrbujn8809 [facility] [id number] (29566) Alkaline Phosphatase, S 67 [iU]/L (Normal) Range: [...] Glucose, Serum 125 mg/dL (Abnormal) Range: 65-99 95-Ipx-50990:12 LIPID PANEL (25737) Comments: PATIENT WAS FASTINGPERFORMED BY: [facility] Jmzyez2986 [facility] [id number] LDL/HDL Ratio 2.3 {ratio_units} (Normal) Range: 0.0-3.2 [...] MANUAL DIFF Comments: PATIENT WAS FASTINGPERFORMED BY: [facility]6370 [facility] [id number] Information: [id number] (78891) Baso (Absolute) 0.0 {x10E3/uL} (Normal) Range: 0.0-0.2 [...] (Normal) Range: 4.0-10.5 :50 HgA1C , Office (30200) Comments: done km HgA1C , Office 6.1 % (Normal) Range: 4.6 - 7.1 :49 Blood Glucose , Office (01580) Comments: done km Blood Glucose , Office 127 (Normal) :19 HgA1C , Office (73356) Comments: done km HgA1C , Office 6.8 % (Normal) Range: 4.6 - 7.1 :19 Blood Glucose , Office (81590) Comments: done km Blood Glucose , Office 159 (Normal) :54 HEPATIC FUNCTION PANEL Comments: PATIENT WAS FASTINGPERFORMED BY: Lesli [employer] [facility] [id number] BY: [employer] Softwarelin6370 [facility] [id number] (53778) ALT (SGPT) 25 [iU]/L (Normal) Range: 0-40 AST (SGOT) 25 [iU]/L (Normal) Range: 0-40 Alkaline Phosphatase, S 89 [iU]/L (Normal) Range: 25-150 Bilirubin, Direct 0.15 mg/dL (Normal) Range: 0.00-0.40 Albumin, Serum 4.6 g/dL (Normal) Range: 3.5-5.5 Bilirubin, Total 0.5 mg/dL (Normal) Range: 0.1-1.2 Protein, Total, Serum 7.2 g/dL (Normal) Range: 6.0-8.5 :54 LIPOPROTEIN, BLD, BY NMR Comments: PATIENT WAS FASTINGPERFORMED BY: B-[address] [place] [address] [id number] BY: BrandcastMary [place]ille 9658270 [facility] [id number] Information: [id number] (10400) HDL Size 8.3 nm (Abnormal) Comments: Small [...] Risk-->LDL AND HDL PARTICLES Percentile in Reference PopSt. [facility]-P (total) High 75th 50th 25th Low>34.9 34.9 30.5 26.7 <26.7.Small LDL-P Low 25th 50th 75th High<117 117 527 839 >83 9.LDL Size <-Large (Pattern A)-> <-Small (Pattern B)->23.0 20.6 20.5 19.0 INSULIN RESISTANCE / DIABETES RISK Kerri [place]<--Insulin Sensitive Insulin Resistant-->Percentile in Reference PopulationLarge VLDL-P [...] 144 mg/dL (Normal) :21 HgA1C , Office (54194) Comments: done km HgA1C , Office 6.1 % (Normal) Range: 4.6 - 7.1 :21 Blood Glucose , Office (09981) Comments: done km Blood Glucose , Office 133 (Normal) :25 TSH (93521) Comments: PATIENT WAS FASTINGPERFORMED BY: [facility] Prhjhl6324 [facility] [id number] TSH 1.010 {uIU/mL} (Normal) Range: 0.450-4.500 :25 MICROALBUMIN: CREATININE RATIO Comments: PATIENT WAS FASTINGPERFORMED BY: [facility] Gvzlid1860 [facility] [id number] (32423) AND (96936) Creatinine, Urine 79.8 mg/dL (Normal) Range: 15.0-278.0 Microalb/Creat Ratio 1.6 {mg/g_creat} (Normal) Range: 0.0-30.0 Microalbumin, Urine 1.3 ug/mL (Normal) Range: 0.0-17.0 :25 METABOLIC PANEL, COMPREHENSIVE Comments: PATIENT WAS FASTINGPERFORMED BY: [facility] Jicedl1769 [facility] [id number] (62697) A/G Ratio 1.6 (Normal) Range: 1.1-2.5 Albumin, [...] BY NMR Comments: PATIENT WAS FASTINGClinical Information: [id number] PERFORMED BY: Saberr LabReferrizerCommunity Medical CenterFarqlh4578 [facility] [id number] (03670) Cholesterol, Total 197 mg/dL (Normal) HDL-C 48 [...] mg/dL (Normal) :25 CBC WITH MANUAL DIFF (32992) Comments: PATIENT WAS FASTINGPERFORMED BY: [facility] Sbsijk9380 [facility] [id number] Baso (Absolute) 0.1 {x10E3/uL} (Normal) Range: 0.0-0.2 [...] (Normal) Range: 4.0-10.5 :02 HgA1C , Office (24070) Comments: done HgA1C , Office 5.9 % (Normal) Range: 4.6 - 7.1 :02 Blood Glucose , Office (40350) Comments: done Blood Glucose , Office 131 (Normal) 98-Fxl-302537:26 Blood Glucose , Office (53471) Comments: done Blood Glucose , Office 80 (Normal) 01-Gck-008902:26 HgA1C , Office (65130) Comments: done HgA1C , Office 5.7 % (Normal) Range: 4.6 - 7.1 23-Wwv-953820:18 Rapid Strep Test, Office (07364) Rapid Strep Test, Office Negative (Normal) :35 URINALYSIS W/O MICRO (58627) Comments: PATIENT WAS FASTINGPERFORMED BY: LabCoCommunity Medical CenterTfbjwx7021 [facility] [id number] Appearance Clear (Normal) Bilirubin Negative (Normal) Glucose Negative (Normal) Ketones Negative (Normal) Microscopic Examination MICRON (Normal) Comments: Microscopic follows if indicated. Nitrite, Urine Negative (Normal) Occult Blood Negative (Normal) pH 6.5 (Normal) Range: 5.0-7.5 Protein Negative (Normal) Specific [place] 1.022 (Normal) Range: 1.005-1.030 Urine-Color Yellow (Normal) Urobilinogen,Semi-Qn 0.2 mg/dL (Normal) Range: 0.0-1.9 WBC Esterase Negative (Normal) :35 MICROALBUMIN: CREATININE RATIO Comments: PATIENT WAS FASTINGPERFORMED BY: BrandcastCommunity Medical CenterTiyzfm7455 [facility] [id number] (08420) AND (77652) Microalbum.,U,Random 1.6 ug/mL (Normal) Range: 0.0-17.0 :35 METABOLIC PANEL, COMPREHENSIVE Comments: PATIENT WAS FASTINGPERFORMED BY: BrandcastCommunity Medical CenterOtiety2444 [facility] [id number] (26978) A/G Ratio 1.7 (Normal) Range: 1.1-2.5 Albumin, [...] Sodium, Serum 137 mmol/L (Normal) Range: 135-145 35-Cky-83812:35 CBC WITH MANUAL DIFF (08476) Comments: PATIENT WAS FASTINGClinical Information: ADD DRAW FEE [id number] ADD J 00889 PERFORMED BY: [facility]6370 [facility] [id number] Baso (Absolute) 0.1 {x10E3/uL} (Normal) Range: 0.0-0.2 [...] {x10E3/uL} (Normal) Range: 4.0-10.5 :35 LIPID PANEL (81576) Comments: PATIENT WAS FASTINGPERFORMED BY: LabCoCommunity Medical CenterBjxguw0213 [facility] [id number] Cholesterol, Total 182 mg/dL (Normal) Range: 100-199 Comment SPRCS (Normal) Comments: If initial LDL-cholesterol result is >100 mg/dL, assess forrisk factors. HDL Cholesterol 44 mg/dL (Normal) Range: 40-59 LDL Cholesterol Calc 117 mg/dL (Abnormal) Range: 0-99 LDL/HDL Ratio 2.7 {ratio_units} (Normal) Range: 0.0-3.2 Triglycerides 106 mg/dL (Normal) Range: 0-149 VLDL Cholesterol Huy 21 mg/dL (Normal) Range: 5-40 :03 HgA1C , Office (18763) Comments: done HgA1C , Office 5.7 % (Normal) Range: 4.6 - 7.1 :03 Blood Glucose , Office (77560) Comments: done Blood Glucose , Office 141 (Normal) :07 HgA1C , Office (84270) Comments: done HgA1C , Office 5.7 % (Normal) Range: 4.6 - 7.1 :07 Blood Glucose , Office (40153) Comments: done Blood Glucose , Office 143 [...] {uIU/mL} (Normal) Range: 0.34-4.82 :41 Urinalysis, Office (59724) UA - BILIRUBIN Negative (Normal) UA - BLOOD Hemolyzed Small (Normal) UA - GLUCOSE Negative (Normal) UA - KETONES Negative mg/dL (Normal) UA - LEUKOCYTE ESTERASE Negative (Normal) UA - NITRITE Negative (Normal) UA - PH 6.0 (Normal) UA - PROTEIN Negative mg/dL (Normal) UA - SPECIFIC GRAVITY 1.025 (Normal) URINE UROBILINGN BALDO TIMED Normal mg/dL (Normal) 01-Jal-144307:30 COMPLETE UA BACTERIA RARE {/hpf} (Normal) BILIRUBIN [...] Result: 0-5 SEEN :26 HgA1C , Office (40906) Comments: done HgA1C , Office 5.5 % (Normal) Range: 4.6 - 7.1 :26 Blood Glucose , Office (28696) Comments: done Blood Glucose , Office 123 (Normal) 64-Iqs-816142:55 LUKE CULTURE-OTHER (18286) 83-Xzu-660054:51 Upper Respiratory Culture Comments: Clinical Information: SRC:TH ADD [id number] PERFORMED BY: LabCoCommunity Medical CenterGzhzqd5994 [facility] [id number] Result 1 RRF (Normal) Comments: Routine respiratory radha Upper Respiratory Culture Final report (Normal) 42-Wfu-069908:23 Rapid Strep Test, Office (71197) Comments: done Rapid Strep Test, Office Negative [...] (Normal) Range: 0.34-4.82 :06 HgA1C , Office (93132) Comments: done HgA1C , Office 5.2 % (Normal) Range: 4.6 - 7.1 :06 Blood Glucose , Office (22760) Comments: done Blood Glucose , Office 102 (Normal) :44 HgA1C , Office (98178) HgA1C , Office 5.5 % (Normal) Range: 4.6 - 7.1 :50 GLUP 210 mg/dL (Abnormal) Comments: GLU,2HPPG 75gm GLUC PPG GLUP from 0611:X79205G. Comments: Glucose result greater than or equal [...] Plan of Care Name Dates Details Instructions Invasive ductal carcinoma of breast, left : Reviewed Lab Indication: Invasive ductal carcinoma of breast, left Invasive ductal carcinoma of breast, left : Reviewed Yardage Caller Letter Indication: Invasive ductal carcinoma of breast, [...] mgmt Indication: Hyperlipidemia Psoriatic arthritis : Reviewed Yardage Caller Letter Indication: Psoriatic arthritis Diabetes mellitus type [...] Indication: Chest pain Chest pain : Reviewed Yardage Caller Letter Indication: Chest pain Chest pain : [...] diabetes mellitus POLYARTHROPATHY, INFLAMMATORY NOS : Reviewed Yardage Caller Letter Indication: POLYARTHROPATHY, INFLAMMATORY NOS Hyperlipidemia : [...] Indication: Hyperlipidemia POLYARTHROPATHY, INFLAMMATORY NOS : Reviewed Yardage Caller Letter Indication: POLYARTHROPATHY, INFLAMMATORY NOS Controlled diabetes [...] Indication: GERD (gastroesophageal reflux disease) Planned Observations CALCIFIDIOL (33224) VIT D 25Indication: Vitamin D deficiency On: :50 Request TSH (29903)Indication: Diabetes mellitus type 2, uncontrolled, without complications On: :50 Request URINALYSIS, W/ MICRO (00745)Indication: Diabetes mellitus type 2, uncontrolled, without complications On: :49 Request MICROALBUMIN: CREATININE RATIO (07732) AND (64017)Indication: Diabetes mellitus type 2, uncontrolled, without complications On: :49 Request METABOLIC PANEL, COMPREHENSIVE (36870)Indication: Diabetes mellitus type 2, uncontrolled, without complications On: :49 Request LIPID PANEL (01006)Indication: Diabetes mellitus type 2, uncontrolled, without complications On: :49 Request CBC W/AUTO DIFF WBC (94384)Indication: Diabetes mellitus type 2, uncontrolled, without complications On: 49-Sdd-78102:49 Request URINALYSIS, W/ MICRO (81186)Indication: Diabetes mellitus type 2, uncontrolled, without complications On: 92-Gpx-15288:00 Request Blood Glucose , Office (93940)Indication: Diabetes mellitus type 2, uncontrolled, without complications On: 72-Kiz-954958:11 Request Influenza A&B Viral Culture (40021)Indication: Body aches On: :55 Request FECAL OCCULT- Tubes sent home (40906)Indication: Encounter for screening for malignant neoplasm of colon (Renamed from Special screening for malignant neoplasms, colon) On: :34 Request Throat Culture (56899)Indication: ACUTE PHARYNGITIS (462.) On: :06 Request HEPATIC FUNCTION PANEL (10716)Indication: Hyperlipidemia On: :17 Request LIPID PANEL (21239)Indication: Hyperlipidemia On: :17 Request Rapid Strep Test, Office (77868)Indication: ACUTE PHARYNGITIS (462.) On: 54-Bhk-938013:04 Request METABOLIC PANEL, COMPREHENSIVE (47125)Indication: Controlled diabetes mellitus On: :48 Request CBC WITH MANUAL DIFF (95619)Indication: Controlled diabetes mellitus On: :48 Request LIPID PANEL (18902)Indication: Hyperlipidemia On: 10-Nrk-44479:45 Request LIPID PANEL (64037)Indication: Hyperlipidemia On: :34 Request LIPID PANEL (80888)Indication: Controlled diabetes mellitus On: :23 Request TSH (00320)Indication: Controlled diabetes mellitus On: 26-Ile-000697:00 Request MICROALBUMIN: CREATININE RATIO (95065) AND (75130)Indication: Controlled diabetes mellitus On: 82-Tjf-727913:00 Request METABOLIC PANEL, COMPREHENSIVE (17763)Indication: Controlled diabetes mellitus On: 78-Bwu-405584:00 Request LIPID PANEL (38377)Indication: Controlled diabetes mellitus On: 26-Jdk-123922:00 Request CBC WITH MANUAL DIFF (71075)Indication: Controlled diabetes mellitus On: 53-Jtj-530175:00 Request URINALYSIS W MICROSCOPY (64862)Indication: Cystitis, acute On: 62-Wao-207213:58 Request URINALYSIS W/O MICRO (63311)Indication: Controlled diabetes mellitus On: :26 Request TSH (41968)Indication: Controlled diabetes mellitus On: :26 Request METABOLIC PANEL, COMPREHENSIVE (97114)Indication: Controlled diabetes mellitus On: :26 Request MICROALBUMIN URINE QUANT (53785)Indication: Controlled diabetes mellitus On: :26 Request LIPID PANEL (44578)Indication: Controlled diabetes mellitus On: :26 Request CBC WITH MANUAL DIFF (36565)Indication: Controlled diabetes mellitus On: :26 Request LUKE CULTURE-OTHER (44106)Indication: Throat pain On: 57-Xny-069802:55 Request TSH (63569)Indication: Controlled diabetes mellitus On: :14 Request LIPID PANEL (95426)Indication: Controlled diabetes mellitus On: 62-Nzw-99507:14 Request MICROALBUMIN URINE QUANT (73815)Indication: Controlled diabetes mellitus On: 38-Czn-36744:14 Request LIPID PANEL (95787)Indication: Family history of diabetes mellitus On: 17-Nqj-464316:10 Request Glucose, PP/2 Hour (03240)Indication: Family history of diabetes mellitus On: 52-Hxh-393855:10 Request Planned Encounters Medical; 3 Month FU - On: 01-Feb-2018 11:30 [facility] Ruth Jones DO, DO, Kathleen Planned Procedures Holter Monitor 24 hrsBy: Karen SINGH, On: 22-Feb-2017 Intent Ruth Ibarra DO Comments: maryam to read ELECTROCARDIOGRAM, COMPLETE (ECG) On: 22-Feb-2017 Intent (87973)By: Ruth Jones DO Comments: nsr no acute chg Ruth Jones DO ELECTROCARDIOGRAM, COMPLETE (ECG) On: 07-Jul-2016 Intent (36170)By: Ruth Jones DO Comments: nsr no acute chg Ruth Jones DO Spirometry (88606)By: Karen SINGH, On: 02-Mar-2016 Intent Ruth Ibarra DO Comments: normal Aerosol Treatment (07494)By: Kaleb On: 28-Feb-2016 Intent Trinh GONZALEZ EKG (73868)By: Ruth Jones DO On: 21-Aug-2014 Intent Ruth Jones DO Comments: sinus carroll no acute chg SPECIMEN HNDLNG/TRNSPRT, OFFC > LAB On: 24-Feb-2014 Intent (58149)By: Jaquelin Shore CNP Flu Vaccine (Quadrivalent) 71766Sz: On: 18-Dec-2013 Intent Ruth Jones DO, DO, Comments: Lot:[id number]/27Amt:0.5mlRoute:IMSite: L DltdGiven By: KENYATTA Marsh signed Ruth ADMINISTRATION OF INFLUENZA VIRUS On: 18-Dec-2013 Intent VACCINE (G0008)By: Ruth Jones DO, DO, Kathleen Ear Irrigation (11537)By: Silviano On: 06-Oct-2013 Jaquelin Bejarano CNP Comments: addendum to 10/06/13 OVEar Irrigation performed on:left earAmount/color removed cerumen:dark brown, large amountOUtcome:clearUsed wax curettes Wax CurettesBy: Jaquelin Shore CNP On: 06-Oct-2013 Intent Ear Irrigation (73473)By: Silviano On: 06-Oct-2013 Intent Jaquelin FRANKEL Eprescribed prescriptions (G8553)By: On: 20-Jun-2013 Ruth Villanueva DO, DO, Kathleen EKG (32524)By: Ruth Jones DO On: 20-Jun-2013 Ruth Villanueva DO Comments: nsr no acute chg Eprescribed prescriptions (G8553)By: On: 28-Mar-2013 Intent Ruth Jones DO, DO, Kathleen Aerosol Treatment (71317)By: On: 17-Feb-2013 Intent Natalie Covington Eprescribed prescriptions (G8553)By: On: 17-Feb-2013 Intent Natalie Covington Ultrasound - Abdomen CompleteBy: On: 16-Jan-2013 Intent Ruth Jones DO, DO, Kathleen FLU VAC, SPLIT, >3 YEARS, INTRAMUSC On: 16-Jan-2013 Intent (51509)By: Karla Santana LPN Comments: Lot:[id number]:6.14Amt:0.5mlRoute:IMSite: L DltdGiven By: LISA MarshVIS signed IMMUNIZ ADMNIN, 1 VAC, SNGL/COMBO On: 16-Jan-2013 Intent (19757)By: Karla Santana LPN Aerosol Treatment (72936)By: Ciesa On: 28-Oct-2012 Intent Jaquelin FRANKEL Eprescribed prescriptions (G8553)By: On: 28-Oct-2012 Intent Natalie Covington EKG (17182)By: Ruth Jones DO On: 24-May-2012 Intent Ruth Jones DO Eprescribed prescriptions (G8553)By: On: 24-May-2012 Intent Karla Santana LPN Eprescribed prescriptions (G8553)By: On: 11-Jan-2012 Intent Karla Santana LPN Eprescribed prescriptions (G8553)By: On: 01-Dec-2011 Intent Karla Santana LPN PNEUM VAC ADLT/IMUMNOSPR, SBC/INTRM On: 08-Sep-2011 Intent ([id number])By: Ruth Jones DO Comments: Lot #[id number]/01/12Site-left deltoidDose- 0.5mlgiven by: LISA Soni DO, Kathleen IMMUNIZ ADMNIN, 1 VAC, SNGL/COMBO On: 08-Sep-2011 Intent ([id number])By: Ruth Jones DO, DO, Kathleen EKG ([id number])By: Ruth Jones DO On: 17-Mar-2011 Intent Ruth Jones DO Comments: nsr no acute changes MRI - Lumbar SpineBy: Karen SINGH, On: 22-Dec-2010 Intent Ruth Ibarra DO FLU VAC, SPLIT, >3 YEARS, INTRAMUSC On: 09-Dec-2010 Intent ([id number])By: Gabriella Dey LPN Comments: had done at work in early November IMMUNIZ ADMNIN, 1 VAC, SNGL/COMBO On: 09-Dec-2010 Intent ([id number])By: Gabriella Dey LPN EKG ([id number])By: Ruth Jones DO On: 29-Apr-2010 Intent Ruth Jones DO Comments: nsr no acute ishcemic changes Aerosol Treatment ([id number])By: Silviano On: 19-May-2009 Intent Jaquelin FRANKEL EKG ([id number])By: Ruth Jones DO On: 18-Dec-2008 Intent Ruth Jones DO Comments: nsr no acute ischemic changes TDAP VACCINE >7 IM ([id number])By: Karen On: 26-Jun-2008 Ruth Bejarano DO, DO, Kathleen Comments: Lot #: [id number] date: mount given:0.5 mlRoute: IMSite given: Right deltoidGiven by: Jonathan Woodruff LPN Pulse Oximetry ([id number])By: Silviano FRANKEL, On: 04-Feb-2008 Intent Rossy Aerosol Treatment ([id number])By: Silviano On: 04-Feb-2008 Intent MARLYS Rossy EKG ([id number])By: Ruth Jones DO On: 04-Oct-2007 Intent Ruth Jones DO Comments: nsr no acute ischemic changes Ear Irrigation ([id number])By: Karen On: 01-Jan-2007 Ruth Bejarano DO, DO, Kathleen Comments: LEFT --KEISHA WELL EKG ([id number])By: Ruth Jones DO On: 03-Aug-2006 Intent Ruth Jones DO Comments: nsr no acute ischemic changes Instructions Name Dates Details BMI 35.0-35.9,adult : How to access health [...] Controlled diabetes mellitus Encounters Office Visit On: 21-Sep-2017 7:11 Encounter Reason: [...] are no current emotional problems. screening, colonoscopy (200 2 ) ,screening, mammography (2006) and screening, visual acuity (2004 [facility]). Encounter Diagnosis: Gerd (530.81), Headache, tension (307.81), Headache,Migraine (346.00), Family history of diabetes mellitus (V18.0) [facility] Payers Jessie MACE/Mela Rodriguez; a guarantor
--- OUTSIDE RECORDS SUMMARY | 2018-05-05 21:10 | XMS RPT_ITS | Continuity of Care Document ---
:1955 Author Organization [facility] Address [address] [place] [address] Phone Care Team Providers Name Role Phone [...] Medications Name Dates Details CALCIUM + D, 183-084IT-VDSP (Oral Tablet) 1 bid for 0 days Refills: 0 Ordered:18-Dec-2008 Karla Santana LPCarmen Fiorinal 50-325-40 MG Oral Capsule 1 Capsule q 6 hr prn for 0 days Quantity: 30 {Capsule} Refills: 1 Ordered:05-Dec-2017 Roby Jones DO, DO, Kathleen Start : 05-Dec-2017 Active Comments:thirty FreeStyle Lite Test In Vitro Strip 1 [...] Oral Tablet prn (8 MG) Active Pen Jackson 31G X 5 MM Miscellaneous 1 (one) [...] 10 days Quantity: 10 {Tablet} Refills: 0 Ordered:6-Chris-2014 Jaquelin Shore CNP Start : 17-Feb-2013 End [...] Operative Report Result: Comments: See Note; NOTES: [facility] Medical Records Department [address] [place] [address] Operative Report 05/24/17 0900 MR#: [id number] Acct: [id number] Name: JIMENEZ RODRIGUEZ Rep #: [id number] : 1955 62 From: Hodan Chong MD PCP: Ruth Jones DO Status: DEP [facility] Y Location: [facility] Report of Operation Date of Procedure: 05/24/17 Pre-Operative Diagnosis: history of left breast cancer, left axillary bulky adenopathy, left mastectomy dog ear Post-Operative Diagnosis: same as above Surgery/Procedure Performed:: Left axillary lymphadenectomy, revision of left maste ctomy dog ear Description of Surgical Findings:: bulky adenopathy of left axilla, left mastectomy lateral dog ear center director lead teacher: Alma Swan Type of Anesthesia:: General Anesthesiologist: [...] Discharge Instruction Result: Comments: See Note; NOTES: [facility] Medical Records Department [address] [place] [address] Instructions for Home/Discharge Instructions 05/24/17 0903 MR#: [id number] Acct: [id number] Name: MICHAELJESSICA A Rep #: [id number] : 1955 62 From: Hodan Chong MD PCP: Ruth Jones DO Status: REG [facility] Discharge Diet: No Restrictions Discharge Activity: Return [...] Aspirin/Acetaminophen/Caffeine [Excedrin Migraine Caplet] 1 each PO UT N PRN 04/18/17 Calm Day 3 cap PO DAILY 04/18/17 Cholecalciferol (Vitamin D3) [Vitamin D3] 2,000 unit PO DAILY 04/18/17 Ibuprofen 400 mg PO PRN PRN 04/18/17 Melatonin [Melatin] 6 mg PO QHS 04/18/17 Metfo rmin HCl 500 mg PO BID 04/18/17 Calcium (Elemental) [Os-Huy 500] 1,000 mg PO DAILY 05/23/17 Hydrocodone Bitart/Apap 5-325 [[place] 5MG-325MG] 1 tab PO Q6H PRN PRN #20 tab 05/24/17 The following prescrip tions were given: Hydrocodone Bitart/Apap 5-325 [[place] 5MG-325MG] 1 tab PO Q6H PRN PRN [...] Operative Report Result: Comments: See Note; NOTES: [facility] Medical Records Department [address] [place] [address] Operative Report 04/20/17 1454 MR#: [id number] Acct: [id number] Name: JIMENEZ RODRIGUEZ Rep #: [id number] : 1955 62 From: Palmer Hawkins MD PCP: Ruth Jones DO Status: REG SD Y Location: [place] [address] Report of Operation Date of Procedure: 04/20/17 Pre-Operative Diagnosi s: left breast cancer Post-Operative Diagnosis: same Surgery/Procedure Performed:: right simple mastectomy center director lead teacher: Brittny Mccullough Type of Anesthesia:: General Anesthesiologist: [...] 2 Views Result: Comments: See Note; NOTES: [facility] Imaging Services [address] [place] [address] Shoulder min 2 Views MR#: [id number] Acct: [id number] Name: JESSICA RODRIGUEZ Rep #: [id number] : 1955 F 61 From: Perla Henderson MD PCP: Ruth Jones DO Status: REG CLI Study: Shoulder min 2 Views Date of Exam: 12/29/16 Exam# [id number] Ordering Dr: Natalia Otto MD STUDY: X-R [...] CC: Ruth Jones DO; Natalia Otto MD Radioactivity Technician: Signed 26-Aug-2015 ELECTROCARDIOGRAM, COMPLETE (ECG) (80994) Comments: nsr no acute chg Result: [MEASUREMENTS ANALYSIS] Date of Test: 08/26/2015 07:49:01; Heart Rate: 62; UT Interval: 152; QRS: 88; QT Interval: 424; Corrected QT Interval (QTc): 427; P Wave [place]: 47; QRS Wave [place]: 61; T Wave [place]: 47; Blood Pressure: 130/70 [ECG DIAGNOSTIC STATEMENTS] Date of Test: 08/26/2015 07:49:01; Summary: Sinus Rhythm WITHIN NORMAL LIMITS 20-Aug-2013 Chest PA and Lateral Result: Comments: See Note; NOTES: [facility] Imaging Services [address] [place] [address] Radiology Report MR#: [id number] Acct: [id number] Name: JESSICA RODRIGUEZ Rep #: [id number] : 1955 F 58 From: Edilberto Patel MD PCP: Ruth Jones DO Status: REG CLI Study: Chest PA and Lateral Date of Exam: 08/20/13 Exam# [id number] Ordering Dr: Natalia Otto MD STUDY: X-RAY [...] Edilberto Patel MD at 10:10 EDT Tel [phone], Service support [phone], Fax RAD/Chest PA and Lateral IMPRESSION: No acute abnormality is present. Electronically Signed: Edilberto Patel MD at 10:10 EDT Tel [phone], Service support [phone], CC: Ruth Jones DO; Natalia Otto MD Radioactivity Technician: Signed 22-Jan-2013 Abdomen Complete Result: Comments: See Note; NOTES: [facility] Imaging Services [address] [place] [address] Ultrasound Report MR#: [id number] Acct: [id number] Name: JESSICA RODRIGUEZ Rep #: [id number] : 1955 F 57 From: Edilberto Patel MD PCP: Status: REG CLI Study: Abdomen Complete Date of Exam: 01/22/13 Exam# [id number] Ordering Dr: Ruth Jones DO STUDY: ABDOMINAL [...] M.D. at 10:28 EST , Service support [phone], CC: Ruth Jones DO Radioactivity Technician: Signed Immunization Name Dates Details Tdap (7 years and up) on: 26-Jun-2008 Comments: Lot #: [id number] date: mount given:0.5 mlRoute: IMSite given: Right deltoidGiven by: A [place], PRIVACY ATTORNEY Family History Unknown Family Member Name Dates Details Father Comments: DM, Heart Dz, Cholestrol, arthlosclorsis Status: Active Maternal Grandmother Comments: BR CA Status: Active Social History Name Dates Details Alcohol Use Comments: Occasional alcohol use Status: Active Caffeine Use Comments: 2-4 QD Status: Active 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, 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 Exercise History Comments: Moderate, [...] Height 0 in Head Circumference 0.00 cm : Temperature 97.8 f Comments: Method: Oral Pulse [...] Calculated 1.96 m2 Head Circumference 0.00 cm 90-Ftc-338686:00 Temperature 98.3 f Comments: Method: Oral Pulse [...] Height 0 in Head Circumference 0.00 cm 88-Gvr-618354:46 Temperature 98.9 f Comments: Method: Oral Pulse 62 /min Comments: Pattern: Regular BP Systolic 122 mm[Hg] Comments: Patient Position: Sitting; Cuff Location: Left Arm; Cuff Size: Standard BP Diastolic 78 mm[Hg] Comments: Patient Position: Sitting; Cuff Location: Left Arm; Cuff Size: Standard Weight 0 lb Height 0 in Head Circumference 0.00 cm Results Date Description Value Details :15 HgA1C , Office (02184) HgA1C , Office 5.6 % (Normal) Range: 4.6 - 7.1 :15 Blood Glucose , Office (68183) Blood Glucose , Office 135 (Normal) 08-Rbw-363594:17 Bedside Glucose Comments: [facility] [address] [place], [place] [address]els[address] [place], [place] [address] BEDSIDE GLU 126 mg/dL (Abnormal) Range: 70-110 Comments: MANAGEMENT OF PATIENT CARE PER NURSING PROTOCOL 24-May-2017 MISCELLANEOUS SPECIMEN See Note (Normal) Comments: [facility] [address] [facility] [place], [place], [phone] 7:30 Comments: Patient: JESSICA RODRIGUEZ : 1955 (62/F) Acct Num: [id number] Phys: Castillo MCMILLAN,Hodan Unit Num: [id number] Loc: [facility] Specimen: [id number] Received: 05/24/171036 Spec Type: MIS C TISSUES [...] The lymph nodes are submitted in entirety. Toll Operator sections are submitted as follows: 1 [...] dog ear. No mass lesion is identified. Toll Operator sections are submitted in four cassettes. / SJ:lilibeth 05/24/17 TC:0 CPT: 74897, 09114 HEADER OPERATION: Excision lymph node, axillary PRE-OP DIAGNOSIS: Left breast cancer, invasive ductal, ER/UT positive, HER2 negative, bulky adenopathy of left axilla TISSUE SUBMITTED: A Left axillary contents, B Dog ear MICROSCOPIC DESCRIPTION Slides are reviewed. A. The largest lymph node contains benign histiocytic proliferation, fibrosis and minimal chronic inflammation co nsistent with previous biopsy and resection ([id number]). Immunohistochemistry ([id number]) supports the presence of isolated metastatic tumor [...] Signed Sotero Cary 05/30/17 <signature on file> :44 Bedside Glucose Comments: [facility] [address] [place] [address] BEDSIDE GLU 178 mg/dL (Abnormal) Range: 70-110 Comments: MANAGEMENT OF PATIENT CARE PER NURSING PROTOCOL : IMMUNOHISTOCHEMISTRY See Note (Normal) Comments: [facility] [address] [place] [place], [address] 00 Comments: Patient: JESSICA RODRIGUEZ : 1955 (62/F) Acct Num: [id number] Phys: Hodan Chong MD Unit Num: [id number] Loc: [facility] Specimen: [id number] Received: 05/28/171425 Spec Type: IMM JOSELO TISSUES TISSUES: A. Axilla, NOS SPECIMEN INFORMATION: Tissue Source: A Left axillary contents Clinical Info: Left breast cancer Specimen Number: [id number] A1, A2, A4, A5, A7 CPT code: 46734, 18493 x4 METHODOLOGY: Deparaffinized sections of prefer/formalin-fixed tissue [...] and their performance characteristics dete rmined by [facility]. They may not have been cleared or approved by the U.S. Food and Drug Administration. The FDA has determined that such clearance or approval is not nece ssary. INTERPRETATION: A. Left axillary contents: Isolated metastatic tumor cells present in one out of seven lymph nodes. AM:lilibeth 05/30/17 PHYSICIAN AND INSTITUTION [facility] [address] [place], [place] [address] Signed Sotero Jeffih 05/30/17 <signature on file> 9-Nsz-682899:05 Bedside Glucose Comments: [facility] [address] [place], [place] [address]. [place], [place] [address] BEDSIDE GLU 162 mg/dL (Abnormal) Range: 70-110 Comments: MANAGEMENT OF PATIENT CARE PER NURSING PROTOCOL 20-Apr-20179:32 Bedside Glucose Comments: [facility] [address] [place] [address] BEDSIDE GLU 137 mg/dL (Abnormal) Range: 70-110 Comments: MANAGEMENT OF PATIENT CARE PER NURSING PROTOCOL 19-Apr-20179:17 Basic Metabolic Profile (BMP) Comments: [address] [place], [address] GAP 9 (Normal) Range: 5-15 [...] A.D.A. criteria.Please note revised GLUCOSE reference range luozncgei52/02/2018. :17 CBC-Complete Blood Cnt No Diff Comments: [facility] [address] [place], [place], [phone] MPV 9.4 fL (Normal) Range: 6.2-12.0 PLT [...] (Normal) Range: 4.4-11.0 :17 Hemoglobin A1c Comments: [facility] [address] [place], [place], [address] HGB A1C 6.3 % (Normal) Range: 4.2-6.3 BREAST BIOPSY (CHOOSE SITE) See Note (Normal) Comments: [facility] [address] [place], [place], [address] 813:15 Comments: Patient: JESSICA RODRIGUEZ : 1955 (62/F) Acct Num: [id number] Phys: Castillo MCMILLAN,Hodan Unit Num: [id number] Loc: [facility] Specimen: [id number] Received: 04/06/171200 Spec Type: BREAST BX TISSUES TISSUES: Left breast, NOS COMMENT Immunohistochemistry ([id number]) supports the above diagnosis. ER/UT/Ujt0vsr studies are being performed on sections of tumor and the results from this study will be reported separately ([id number] 371). Please make reference to previous specimen ([id number]) left breast, core biopsy with diagnosis of fibrocystic change wi th associated microcalcifications. GROSS DESCRIPTION Received is one container labeled with the patient's name and not further designated. The specimen consists of multiple elongated fragments o f bagley-yellowfibroadipose tissue that in aggregate measure 3 x 2 x 0.1 cm. The entire specimen is submitted in one cassette. / SJ:lilibeth 04/06/17 TC:0 CPT: 59211 HEADER OPERATION: Ultrasound-guided left breast needle core [...] on file> IMMUNOHISTOCHEMISTRY See Note (Normal) Comments: [facility] [address] [place], [address] 80:00 Comments: Patient: JESSICA RODRIGUEZ : 1955 (62/F) Acct Num: [id number] Phys: Castillo MCMILLAN,Hodan Unit Num: [id number] Loc: [facility] Specimen: [id number] Received: 04/09/17 - 1250 Spec Type: IMMUNO TISSUES TISSUES: Left breast, NOS SPECIMEN INFORMATION: Tissue Source: Left breast needle core biopsy Clinical Info: Abnormal left mammogram/ultrasound [facility] Number: [id number] CPT code: 19025, 21094 x4, 52498 x3 METHODOLOGY: Deparaffinized sections of prefer/formalin-fixed tissue or PAP/DQ stained slides are incubated with monoclonal/polyclonal a ntibodies/oligonucleotide probes. Localization is made via biotin free immunoperoxidase method. Appropriate controls are performed and reacted as expected. Results on target cell population are indic ated in the following table: RESULTS: ANTIBODY / CLONE RESULT E-Cad (ECH-6) positive CK8 (69wqzqV77) positive CK5-6 (D5 AND 1684) nega tive Ki-67 (30-9) positive, moderate P53 (DO-7) positive MORPHOMETRIC ANALYSIS ER (clone 6F11) >95% , strong UT (clone 16/1E2) variable, 0-11%, weak Her- 2Neu [...] recommended for all equivocal cases. Positivity/negativity for ER/UT is reported if > or < 1% of the tumor cells are immuno- reactive, respectively. The ASCO/C AP criteria is used for scoring. Reference: Journal of Clinical Oncology, 2013; 31:4128-6307 AND 2009; 16:6666-7367. Duration of fixation: 54.5 Hrs; Sample Adequate: Yes. These assays have not bee n validated on decalcified tissues. Results should beinterpreted with caution given the likelihood of false negativity on decalcifiedspecimens. These tests were developed and their performance amanda cteristics determined by [facility]. They may not have been cleared or approved by the U.S. Food and Drug Administration. The FDA has determined that such clearance or appro esequiel is not necessary. INTERPRETATION: Left breast, ultrasound-guided needle core biopsy: Invasive ductal carcinoma, nuclear grade 3. Positive for estrogen receptors (favorable prognostic indicator). Positive for progesterone receptors (favorable prognostic indicator). Negative for overexpression of NTQ3rud. SJ:lilibeth 04/10/17 PHYSICIAN AND INSTITUTION [address] [address] Signed Ildefonso Skinner 04/10/17 <signature on file> COLON BIOPSY (CHOOSE SITE) See Note (Normal) Comments: [address] [place], [place], [address] 811:08 Comments: Patient: JESSICA RODRIGUEZ : 1955 (61/F) Acct Num: [id number] Phys: Yovani Mcduffie Unit Num: [id number] Loc: [facility] Specimen: [id number] Received: 03/01/17 - [...] is totally submitted in one cassette. / DAI:lilibeth 03/02/17 TC:1 CPT: 38968 x2 HEADER OP ERATION: Colonoscopy with polypectomy [...] Signed Ildefonso Skinner 03/05/17 <signature on file> 04-Wmz-18042:14 Metabolic Panel, Basic (45805) Comments: PATIENT NOT FASTINGPERFORMED BY: LabCoJer[facility] City Medical CenterSatjwe1903 [facility] [id number] Calcium, Serum 9.2 mg/dL (Normal) Range: 8.7-10.3 [...] (Abnormal) Range: 65-99 :58 HgA1C , Office (42905) HgA1C , Office 6.8 % (Normal) Range: 4.6 - 7.1 :58 Blood Glucose , Office (28231) Blood Glucose , Office 166 (Normal) :17 CBC W/Diff, Automated Comments: [facility] [address] [place], [address] Absolute Lymph 1.78 {X10_3/ul} (Normal) Range: 0.83-4.51 [...] 4.2-5.4 WBC 7.4 K/mm3 (Normal) Range: 4.4-11.0 59-Nan-27480:17 Comprehensive Metabolic Profil Comments: [facility] [address] [place], [place], [address] GAP 7 (Normal) Range: 5-15 CO2 29.0 [...] per A.D.A. criteria. :11 HgA1C , Office (06026) HgA1C , Office 6.3 % (Normal) Range: 4.6 - 7.1 :11 Blood Glucose , Office (06373) Blood Glucose , Office 154 (Normal) :56 CALCIFIDIOL (25672) VIT D 25 Comments: PATIENT WAS FASTINGPERFORMED BY: [employer] Fkmqkx5349 [facility] [id number] Vitamin D, 25-Hydroxy 28.4 ng/mL (Abnormal) Range: 30.0-100.0 Comments: Vitamin D deficiency has been defined by the [place] of[facility] Hospital[facility] and an Endocrine Society practice guideline as alevel of serum 25-OH vitamin D less than 20 ng/mL (1,2).The Endocrine Society went on to further define vitamin Dinsufficiency as a level between 21 and 29 ng/mL (2).1. IOM ([place] of Medicine). 2010. Dietary reference intakes for calcium and D. [place]: The National Academies Press.2. Sara MF, Johanna JOSEPH, Rosanna SOMMER, et al. Evaluation, treatment, and prevention of vitamin D deficiency: an Endocrine Society clinical practice guideline. JCEM. 2010; 96(7):1911-30. :56 TSH (48631) Comments: PATIENT WAS FASTINGPERFORMED BY: [employer] [facility] [id number] TSH 0.824 {uIU/mL} (Normal) Range: 0.450-4.500 :56 MICROALBUMIN: CREATININE RATIO Comments: PATIENT WAS FASTINGPERFORMED BY: [employer] Nwxfqm8805 [facility] [id number] (99321) AND (53540) Microalb/Creat Ratio 8.0 {mg/g_creat} (Normal) Range: 0.0-30.0 Microalbumin, Urine 8.3 ug/mL (Normal) Creatinine, Urine 103.7 mg/dL (Normal) :56 METABOLIC PANEL, COMPREHENSIVE Comments: PATIENT WAS FASTINGPERFORMED BY: [employer]srp [employer] [facility] [id number] (82691) ALT (SGPT) 14 [iU]/L (Normal) Range: 0-32 [...] Glucose, Serum 145 mg/dL (Abnormal) Range: 65-99 21-Wcc-491806:56 CBC W/AUTO DIFF WBC (33009) Comments: PATIENT WAS FASTINGPERFORMED BY: [facility]CoJer[facility] City [facility] CenterGamuhu5697 [facility] [id number] Immature Grans (Abs) 0.0 {x10E3/uL} (Normal) Range: [...] {x10E3/uL} (Normal) Range: 3.4-10.8 :56 LIPID PANEL (97090) Comments: PATIENT WAS FASTINGPERFORMED BY: [facility]CoJer[facility] CenterPmswrj0750 [facility] [id number] LDL/HDL Ratio 1.6 {ratio_units} (Normal) Range: 0.0-3.2 [...] (Normal) Range: 100-199 :27 HgA1C , Office (67014) HgA1C , Office 7.6 % (Abnormal) Range: 4.6 - 7.1 :27 Blood Glucose , Office (79497) Blood Glucose , Office 192 (Normal) 98-Xvf-217114:11 HgA1C , Office (10237) HgA1C , Office 6.8 % (Normal) Range: 4.6 - 7.1 :33 Microscopic Examination Comments: PATIENT WAS FASTINGPERFORMED BY: InOpenFormerly [facility] [id number] Bacteria Few (Normal) Mucus Threads Present (Normal) Epithelial Cells (non renal) 0-10 {/hpf} (Normal) Range: 0 - 10 RBC 3-10 {/hpf} (Abnormal) Range: 0 - 2 WBC 0-5 {/hpf} (Normal) Range: 0 - 5 :31 Throat Culture (42735) Comments: PATIENT NOT FASTINGPERFORMED BY: [facility]Former[facility] [id number] Information: SRC:TH Result 1 BETAGC (Abnormal) Comments: [...] report (Abnormal) :55 Influenza A&B Viral Culture (72804) :55 Rapid Flu (42638 x 2) Influenza A Ag negative (Normal) :43 Rapid Strep Test, Office (58672) Rapid Strep Test, Office Negative (Normal) :33 CALCIFIDIOL (81252) VIT D 25 Comments: PATIENT WAS FASTINGPERFORMED BY: [facility] [id number] Vitamin D, 25-Hydroxy 30.8 ng/mL (Normal) Range: 30.0-100.0 Comments: Vitamin D deficiency has been defined by the [place] ofMedicine and an Endocrine Society practice guideline as alevel of serum 25-OH vitamin D less than 20 ng/mL (1,2).The Endocrine Society went on to further define vitamin Dinsufficiency as a level between 21 and 29 ng/mL (2).1. IOM ([place] of Medicine). 2010. Dietary reference intakes for calcium and D. [place]: The National Academies Press.2. Sara MF, Johanna JOSEPH, Rosanna SOMMER, et al. Evaluation, treatment, and prevention of vitamin D deficiency: an Endocrine Society clinical practice guideline. JCEM. 2010; 96(7):1911-30. :33 TSH (09576) Comments: PATIENT WAS FASTINGPERFORMED BY: [facility] [id number] TSH 1.190 {uIU/mL} (Normal) Range: 0.450-4.500 :33 URINALYSIS, W/ MICRO (23375) Comments: PATIENT WAS FASTINGPERFORMED BY: [employer]70 [facility] TherapeuticsFormerly [facility] [id number] Microscopic Examination See below: (Normal) Comments: Microscopic was indicated and was performed. Nitrite, Urine Negative (Normal) Urobilinogen,Semi-Qn 0.2 mg/dL (Normal) Range: 0.2-1.0 Bilirubin Negative (Normal) Occult Blood 1+ (Abnormal) Ketones Negative (Normal) Glucose Negative (Normal) Protein Negative (Normal) WBC Esterase 1+ (Abnormal) Appearance Clear (Normal) Urine-Color Yellow (Normal) pH 6.5 (Normal) Range: 5.0-7.5 Specific [place] 1.020 (Normal) Range: 1.005-1.030 :33 MICROALBUMIN: CREATININE RATIO Comments: PATIENT WAS FASTINGPERFORMED BY: [facility]Former[facility] [id number] (39820) AND (69662) Microalb/Creat Ratio 7.7 {mg/g_creat} (Normal) Range: 0.0-30.0 Microalbumin, Urine 7.4 ug/mL (Normal) Creatinine, Urine 96.3 mg/dL (Normal) 66-Kbs-15254:33 METABOLIC PANEL, COMPREHENSIVE Comments: PATIENT WAS FASTINGPERFORMED BY: LabCoJer[facility] City Medical CenterDymzdd7990 [facility] [id number] (42612) ALT (SGPT) 16 [iU]/L (Normal) Range: 0-32 [...] mg/dL (Abnormal) Range: 65-99 :33 LIPID PANEL (88746) Comments: PATIENT WAS FASTINGPERFORMED BY: OnTheGo PlatformsJersey City Medical CenterWsyppl7875 [facility] [id number] LDL/HDL Ratio 2.0 {ratio_units} (Normal) Range: 0.0-3.2 [...] Range: 100-199 :33 CBC W/AUTO DIFF WBC (50315) Comments: PATIENT WAS FASTINGPERFORMED BY: [employer] Dvwola9158 [facility] [id number] Immature Grans (Abs) 0.0 {x10E3/uL} (Normal) Range: [...] Range: 3.4-10.8 :06 Blood Glucose , Office (62484) Blood Glucose , Office 130 (Normal) :06 HgA1C , Office (36173) HgA1C , Office 6.3 % (Normal) Range: 4.6 - 7.1 :06 Rapid Strep Test, Office (38491) Rapid Strep Test, Office Negative (Normal) :48 HgA1C , Office (56159) HgA1C , Office 6.3 % (Normal) Range: 4.6 - 7.1 :48 Blood Glucose , Office (60723) Blood Glucose , Office 121 (Normal) :09 MICROALBUMIN: CREATININE RATIO Comments: PATIENT WAS FASTINGPERFORMED BY: [employer] Mtahlg3196 [facility] [id number] (38614) AND (30850) Microalb/Creat Ratio 3.7 {mg/g_creat} (Normal) Range: 0.0-30.0 Microalbumin, Urine 3.3 ug/mL (Normal) Creatinine, Urine 88.7 mg/dL (Normal) :09 URINALYSIS (62956) Comments: PATIENT WAS FASTINGPERFORMED BY: [employer] Funding Xcvewv7547 [facility] [id number] Microscopic Examination MICNIP (Normal) Comments: Microscopic not indicated and not performed. Nitrite, Urine Negative (Normal) Urobilinogen,Semi-Qn 0.2 mg/dL (Normal) Range: 0.2-1.0 Bilirubin Negative (Normal) Occult Blood Negative (Normal) Ketones Negative (Normal) Glucose Negative (Normal) Protein Negative (Normal) WBC Esterase Negative (Normal) Appearance Clear (Normal) Urine-Color Yellow (Normal) pH 6.0 (Normal) Range: 5.0-7.5 Specific [place] 1.017 (Normal) Range: 1.005-1.030 :09 TSH (25031) Comments: PATIENT WAS FASTINGPERFORMED BY: OnTheGo PlatformsJersey City Medical CenterYguoyk5783 [facility] [id number] TSH 1.390 {uIU/mL} (Normal) Range: 0.450-4.500 :09 CBC WITH MANUAL DIFF Comments: PATIENT WAS FASTINGPERFORMED BY: [employer] MuseHolland Hospital6370 [facility] [id number] Information: [id number] (54775) Immature Grans (Abs) 0.0 {x10E3/uL} (Normal) Range: [...] Panel, Comprehensive Comments: PATIENT WAS FASTINGPERFORMED BY: [employer]70 [facility] [id number] (56129) ALT (SGPT) 16 [iU]/L (Normal) Range: 0-32 [...] mg/dL (Abnormal) Range: 65-99 :09 Lipid Panel (50759) Comments: PATIENT WAS FASTINGPERFORMED BY: [employer] [facility] [id number] LDL/HDL Ratio 2.0 {ratio_units} (Normal) Range: 0.0-3.2 [...] 187 mg/dL (Normal) Range: 100-199 :09 CALCIFEDIOL (64308) Comments: PATIENT WAS FASTINGPERFORMED BY: [employer] [place] [id number] Vitamin D, 25-Hydroxy 33.6 ng/mL (Normal) Range: 30.0-100.0 Comments: Vitamin D deficiency has been defined by the [place] of[place]icine and an Endocrine Society practice guideline as alevel of serum 25-OH vitamin D less than 20 ng/mL (1,2).The Endocrine Society went on to further define vitamin Dinsufficiency as a level between 21 and 29 ng/mL (2).1. IOM ([place] of Medicine). 2010. Dietary reference intakes for calcium and D. [place]: The National Academies Press.2. Sara MF, Johanna JOSEPH, Rosanna SOMMER, et al. Evaluation, treatment, and prevention of vitamin D deficiency: an Endocrine Society clinical practice guideline. JCEM. 2010; 96(7):1911-30. :15 HgA1C , Office (50896) HgA1C , Office 6.7 % (Normal) Range: 4.6 - 7.1 :15 Blood Glucose , Office (57649) Blood Glucose , Office 142 (Normal) :18 Microscopic Examination Comments: PATIENT WAS FASTINGPERFORMED BY: [employer] LabCoTuxeboFormerly [facility] [id number] Bacteria None seen (Normal) Mucus Threads Present (Normal) Epithelial Cells (non renal) 0-10 {/hpf} (Normal) Range: 0 - 10 RBC 0-2 {/hpf} (Normal) Range: 0 - 2 WBC 0-5 {/hpf} (Normal) Range: 0 - 5 5-Har-281671:01 CBC W/Diff, Automated Comments: [facility] [address] [place], [place], [id number] Absolute Lymph 1.22 {X10_3/ul} (Normal) Range: 0.83-4.51 [...] 4.2-5.4 WBC 8.8 K/mm3 (Normal) Range: 4.4-11.0 0-Rnl-341153:01 Comprehensive Metabolic Profil Comments: [facility] [address] [place], [address] GAP 7 (Normal) Range: 5-15 CO2 29.0 [...] DIABETES MELLITUS per A.D.A. criteria. :18 TSH (92612) Comments: PATIENT WAS FASTINGPERFORMED BY: [employer] [facility] [id number] TSH 1.070 {uIU/mL} (Normal) Range: 0.450-4.500 :18 URINALYSIS, W/ MICRO (08334) Comments: PATIENT WAS FASTINGPERFORMED BY: [employer] [facility] [id number] Microscopic Examination See below: (Normal) Comments: Microscopic was indicated and was performed. Nitrite, Urine Negative (Normal) Urobilinogen,Semi-Qn 0.2 mg/dL (Normal) Range: 0.2-1.0 Bilirubin Negative (Normal) Occult Blood Trace (Abnormal) Ketones Negative (Normal) Glucose Negative (Normal) Protein Negative (Normal) WBC Esterase Negative (Normal) Appearance Clear (Normal) Urine-Color Yellow (Normal) pH 6.5 (Normal) Range: 5.0-7.5 Specific [place] 1.015 (Normal) Range: 1.005-1.030 :18 MICROALBUMIN: CREATININE RATIO Comments: PATIENT WAS FASTINGPERFORMED BY: [facility] Clare6370 [facility] [id number] (66629) AND (83234) Microalb/Creat Ratio 5.4 {mg/g_creat} (Normal) Range: 0.0-30.0 Microalbumin, Urine 5.9 ug/mL (Normal) Range: 0.0-17.0 Creatinine, Urine 109.1 mg/dL (Normal) Range: 15.0-278.0 :18 CBC W/AUTO DIFF WBC Comments: PATIENT WAS FASTINGPERFORMED BY: [facility] Clare6370 [facility] [id number] Information: [id number] CC:[id number] (97549) Immature Grans (Abs) 0.0 {x10E3/uL} (Normal) Range: [...] PANEL, COMPREHENSIVE Comments: PATIENT WAS FASTINGPERFORMED BY: LabCoJersey City Medical CenterUvgdbx4885 [facility] [id number] (27372) ALT (SGPT) 18 [iU]/L (Normal) Range: 0-32 [...] mg/dL (Abnormal) Range: 65-99 :18 LIPID PANEL (17160) Comments: PATIENT WAS FASTINGPERFORMED BY: Censis Technologieslin6370 [facility] [id number] LDL/HDL Ratio 1.8 {ratio_units} (Normal) Range: 0.0-3.2 [...] 199 mg/dL (Normal) Range: 100-199 :18 CALCIFIDIOL (91330) VIT D 25 Comments: PATIENT WAS FASTINGPERFORMED BY: Censis Technologieslin6370 [facility] [id number] Vitamin D, 25-Hydroxy 27.9 ng/mL (Abnormal) Range: 30.0-100.0 Comments: Vitamin D deficiency has been defined by the [place] of[place]icine and an Endocrine Society practice guideline as alevel of serum 25-OH vitamin D less than 20 ng/mL (1,2).The Endocrine Society went on to further define vitamin Dinsufficiency as a level between 21 and 29 ng/mL (2).1. IOM ([place] of Medicine). 2010. Dietary reference intakes for calcium and D. [place]: The National Academies Press.2. Sara SHARMA, Johanna JOSEPH, Rosanna SOMMER, et al. Evaluation, treatment, and prevention of vitamin D deficiency: an Endocrine Society clinical practice guideline. JCEM. 2010; 96(7):1911-30. :08 HgA1C , Office (44655) HgA1C , Office 6.3 % (Normal) Range: 4.6 - 7.1 :08 Blood Glucose , Office (04882) Blood Glucose , Office 253 (Normal) :20 CALCIFIDIOL (08673) VIT D Comments: PATIENT WAS FASTINGPERFORMED BY: LabCoJersey City Medical CenterPndidb0839 [facility] [id number] Information: [id number] Vitamin D, 25-Hydroxy 32.3 ng/mL (Normal) Range: 30.0-100.0 Comments: Vitamin D deficiency has been defined by the [place] of[facility] and an Endocrine Society practice guideline as alevel of serum 25-OH vitamin D less than 20 ng/mL (1,2).The Endocrine Society went on to further define vitamin Dinsufficiency as a level between 21 and 29 ng/mL (2).1. IOM ([place] of Medicine). 2010. Dietary reference intakes for calcium and D. [place]: The National Academies Press.2. Sara SHARMA, Johanna JOSEPH, Rosanna SOMMER, et al. Evaluation, treatment, and prevention of vitamin D deficiency: an Endocrine Society clinical practice guideline. JCEM. 2010; 96(7):1911-30. :52 HgA1C , Office (91684) HgA1C , Office 6.4 % (Normal) Range: 4.6 - 7.1 :52 Blood Glucose , Office (23179) Blood Glucose , Office 124 (Normal) :03 CBC W/Diff, Automated Comments: Test performed at:[facility] [address] [place], [place] [address] Absolute Lymph 1.29 {X10_3/ul} (Normal) Range: 0.83-4.51 [...] 18-Aug-20149:03 Comprehensive Metabolic Profil Comments: Test performed at:[facility] [address]nanvwnzs[address] [place], [place] [address] GAP 7 (Normal) Range: 5-15 CO2 29.0 [...] Panel (7) Comments: PATIENT WAS FASTINGPERFORMED BY: Josey Ellis [employer] [facility] [id number] ALT (SGPT) 16 [iU]/L (Normal) Range: 0-32 AST (SGOT) 18 [iU]/L (Normal) Range: 0-40 Alkaline Phosphatase, S 71 [iU]/L (Normal) Range: 39-117 Bilirubin, Direct 0.12 mg/dL (Normal) Range: 0.00-0.40 Bilirubin, Total 0.4 mg/dL (Normal) Range: 0.0-1.2 Albumin, Serum 4.4 g/dL (Normal) Range: 3.5-5.5 Protein, Total, Serum 6.5 g/dL (Normal) Range: 6.0-8.5 :43 Lipid Panel With LDL/HDL Comments: PATIENT WAS FASTINGPERFORMED BY: [employer] ([employer]) Xmybdl5719 [facility] [id number] Information: [id number] Ratio LDL/HDL Ratio 1.4 {ratio_units} (Normal) Range: [...] Cholesterol, Total 158 mg/dL (Normal) Range: 100-199 31-Ozp-154327:13 CBC W/Diff, Automated Comments: Test performed at:[facility] [address]pm[address] [place], [place] [id number] Absolute Lymph 2.30 {X10_3/ul} (Normal) Range: 0.83-4.51 [...] 4.2-5.4 WBC 8.2 K/mm3 (Normal) Range: 4.4-11.0 47-Iyo-459599:13 Comprehensive Metabolic Profil Comments: Test performed at:[facility] Hpoyqqfcmk7344 [facility] [place] [address] ; ordered by nathan GAP 7 (Normal) [...] <126 mg/dLsuggests IMPAIRED HOMEOSTASIS per A.D.A. criteria. 51-Ors-141297:18 CBC W/Diff, Automated Comments: Test performed at:[facility] Yogaipnqdv[address] [place] [address] Absolute Lymph 2.19 {X10_3/ul} (Normal) [...] 4.2-5.4 WBC 6.3 K/mm3 (Normal) Range: 4.4-11.0 99-Dlm-377642:18 Comprehensive Metabolic Profil Comments: Test performed at:[facility] [address] [place], [place] [id number] GAP 4 (Abnormal) Range: 5-15 CO2 32.0 [...] <126 mg/dLsuggests IMPAIRED HOMEOSTASIS per A.D.A. criteria. 33-Hzu-524932:01 LUEK CULTURE-OTHER (11985) Comments: PATIENT NOT FASTINGPERFORMED BY: LabCoJersey City Medical CenterKkedql8067 [facility] [id number] Information: SRC:THRT [id number] Result 1 RRF (Normal) Comments: Routine respiratory radha Upper Respiratory Culture Final report (Normal) 44-Egr-79539:11 Elon Client Glucose Comments: Test performed at:[facility] [address]we[address] [place] [address] GLU 124 mg/dL (Abnormal) Range: 70-110 Comments: Fasting Glucose result from 110 to <126 mg/dLsuggests IMPAIRED HOMEOSTASIS per A.D.A. criteria. 47-Alm-50010:11 [employer]on Client Lipid Profile Comments: Test performed at:[facility] [address]yveiknrde[address] [place] [address] VLDL 32 mg/dL (Normal) Range: 5-40 LDL [...] Microscopic Examination Comments: PATIENT WAS FASTINGPERFORMED BY: [employer] LabGemPhones Kctuls8849 [address]iz RoadDublin [place] [id number] Bacteria None seen (Normal) Mucus Threads Present (Normal) Epithelial Cells (non renal) 0-10 {/hpf} (Normal) Range: 0 - 10 RBC 0-2 {/hpf} (Normal) Range: 0 - 2 WBC 0-5 {/hpf} (Normal) Range: 0 - 5 :01 Vitamin D Hydroxy (56226) Comments: PATIENT WAS FASTINGPERFORMED BY: [employer] LabSOLEM Electroniquerp Foxipc6453 Ortiz RoadDublin [place] [id number] Vitamin D, 25-Hydroxy 31.0 ng/mL (Normal) Range: 30.0-100.0 Comments: Vitamin D deficiency has been defined by the [place] of[place]icine and an Endocrine Society practice guideline as alevel of serum 25-OH vitamin D less than 20 ng/mL (1,2).The Endocrine Society went on to further define vitamin Dinsufficiency as a level between 21 and 29 ng/mL (2).1. IOM ([place] of Medicine). 2010. Dietary reference intakes for calcium and D. [place]: The National Academies Press.2. Sara MF, Johanna JOSEPH, Rosanna SOMMER, et al. Evaluation, treatment, and prevention of vitamin D deficiency: an Endocrine Society clinical practice guideline. JCEM. 2010; 96(7):1911-30. :01 TSH (34203) Comments: PATIENT WAS FASTINGPERFORMED BY: [employer] [facility] Hzbzwi8120 [address]iz RoadDublin [place] [id number] TSH 0.986 {uIU/mL} (Normal) Range: 0.450-4.500 :01 URINALYSIS, W/ MICRO (05154) Comments: PATIENT WAS FASTINGPERFORMED BY: [facility] Pwrjse4358 [facility] [id number] Microscopic Examination See below: (Normal) Comments: Microscopic was indicated and was performed. Microscopic Examination MICRON (Normal) Comments: Microscopic follows if indicated. Nitrite, Urine Negative (Normal) Urobilinogen,Semi-Qn 0.2 mg/dL (Normal) Range: 0.0-1.9 Bilirubin Negative (Normal) Occult Blood Negative (Normal) Ketones Negative (Normal) Glucose Negative (Normal) Protein Negative (Normal) WBC Esterase Negative (Normal) Appearance Clear (Normal) Urine-Color Yellow (Normal) pH 6.5 (Normal) Range: 5.0-7.5 Specific [place] 1.018 (Normal) Range: 1.005-1.030 :01 MICROALBUMIN: CREATININE RATIO Comments: PATIENT WAS FASTINGPERFORMED BY: [facility]6370 [facility] [id number] (40803) AND (32920) Microalb/Creat Ratio 2.1 {mg/g_creat} (Normal) Range: 0.0-30.0 Microalbumin, Urine 2.0 ug/mL (Normal) Range: 0.0-17.0 Creatinine, Urine 93.5 mg/dL (Normal) Range: 15.0-278.0 :01 METABOLIC PANEL, COMPREHENSIVE Comments: PATIENT WAS FASTINGPERFORMED BY: [facility]6370 [facility] [id number] (88138) ALT (SGPT) 12 [iU]/L (Normal) Range: 0-32 [...] mg/dL (Abnormal) Range: 65-99 :01 LIPID PANEL (96400) Comments: PATIENT WAS FASTINGPERFORMED BY: InOpenFormerly [facility] [id number] LDL/HDL Ratio 2.3 {ratio_units} (Normal) Range: 0.0-3.2 [...] Range: 100-199 :01 CBC W/AUTO DIFF WBC (00203) Comments: PATIENT WAS FASTINGPERFORMED BY: [employer]70 [address] [facility] [id number] Immature Grans (Abs) 0.0 {x10E3/uL} (Normal) Range: [...] (Normal) Range: 3.4-10.8 :25 HgA1C , Office (01751) HgA1C , Office 6.5 % (Normal) Range: 4.6 - 7.1 :25 Blood Glucose , Office (23544) Blood Glucose , Office 143 (Normal) :36 URINE LUKE CULTURE (BALDO Comments: PATIENT NOT FASTINGPERFORMED BY: LabCoJersey City Medical CenterBbadkj5386 [facility] [id number] Information: SRC:GURDEEP [id number] COL COUNT) (00081) Result 1 PROTMP (Abnormal) Comments: Proteus mirabilis/giypdnb236 Colonies/mLBeta hemolytic Streptococcus, group B10,000-25,000 colony forming [...] S Urine Final report Culture,Comprehensi (Abnormal) ve 65-Qhn-73345:17 Urinalysis, Office (50168) UA - LEUKOCYTE ESTERASE Large (Normal) UA - NITRITE Positive (Normal) URINE UROBILINGN BALDO TIMED Normal mg/dL (Normal) UA - PROTEIN Trace mg/dL (Normal) UA - PH 6.5 (Normal) UA - BLOOD Negative (Normal) UA - SPECIFIC GRAVITY 1.025 (Normal) UA - KETONES Moderate mg/dL (Normal) UA - BILIRUBIN Negative (Normal) UA - GLUCOSE Negative (Normal) 10-Zlg-172694:42 CBCD ALC 1.95 {X10_3/ul} (Normal) Range: 0.83-4.51 [...] 4.2-5.4 WBC 6.5 K/mm3 (Normal) Range: 4.4-11.0 23-Hwr-676953:42 CMP GAP 5 (Normal) Range: 5-15 CO2 [...] 126 mg/dLsuggests DIABETES MELLITUS per A.D.A. criteria. 17-Lxc-540678:09 LUKE CULTURE-OTHER (69444) Comments: PATIENT NOT FASTINGPERFORMED BY: [facility]6370 [facility] [id number] Information: SRC:THRT [id number] Result 1 BETAGG (Abnormal) Comments: Beta hemolytic [...] 2011) Upper Respiratory Culture Final report (Abnormal) 75-Agb-59945:09 Rapid Strep Test, Office (28837) Rapid Strep Test, Office Negative (Normal) 57-Jxa-56178:12 MICROALBUMIN: CREATININE RATIO Comments: PATIENT WAS FASTINGPERFORMED BY: [facility]6370 [facility] [id number] (71590) AND (66536) Microalb/Creat Ratio 6.3 {mg/g_creat} (Normal) Range: 0.0-30.0 Microalbumin, Urine 10.0 ug/mL (Normal) Range: 0.0-17.0 Creatinine, Urine 157.7 mg/dL (Normal) Range: 15.0-278.0 :12 CALCIFEDIOL (99535) Comments: PATIENT WAS FASTINGPERFORMED BY: [facility]6370 [facility] [id number] Vitamin D, 25-Hydroxy 26.6 ng/mL (Abnormal) Range: 30.0-100.0 Comments: Vitamin D deficiency has been defined by the [place] ofMedicine and an Endocrine Society practice guideline as alevel of serum 25-OH vitamin D less than 20 ng/mL (1,2).The Endocrine Society went on to further define vitamin Dinsufficiency as a level between 21 and 29 ng/mL (2).1. IOM ([place] of Medicine). 2010. Dietary reference intakes for calcium and D. [place]: The National Academies Press.2. Sara MF, Johanna NC, Rosanna SOMMER, et al. Evaluation, treatment, and prevention of vitamin D deficiency: an Endocrine Society clinical practice guideline. JCEM. 2010; 96(7):1911-30. :12 CBC with manual diff Comments: PATIENT WAS FASTINGPERFORMED BY: [facility]Hol[facility]6370 [facility] [id number] Information: [id number] (52753) Immature Grans (Abs) 0.0 {x10E3/uL} (Normal) Range: [...] (THYROID STIMULATING Comments: PATIENT WAS FASTINGPERFORMED BY: [facility] [id number] HORMONE) (52750) TSH 1.420 {uIU/mL} (Normal) Range: 0.450-4.500 :12 LIPID PANEL (07724) Comments: PATIENT WAS FASTINGPERFORMED BY: [place] 6816970 [facility] [id number] LDL/HDL Ratio 2.4 {ratio_units} (Normal) Range: 0.0-3.2 [...] PANEL, COMPREHENSIVE Comments: PATIENT WAS FASTINGPERFORMED BY: [facility]6[address] [facility] [id number] (78882) ALT (SGPT) 18 [iU]/L (Normal) Range: 0-32 [...] (Abnormal) Range: 65-99 :21 HgA1C , Office (44871) HgA1C , Office 6.1 % (Normal) Range: 4.6 - 7.1 :21 Blood Glucose , Office (34396) Blood Glucose , Office 153 (Normal) :54 [...] 4.2-5.4 WBC 6.1 K/mm3 (Normal) Range: 4.4-11.0 4-Apk-317924:54 CMP GAP 7 (Normal) Range: 5-15 CO2 [...] 7-18 GLU 86 mg/dL (Normal) Range: 70-110 60-Wqz-318026:04 CBCD ANC 3.8 {X10_3/uL} (Normal) Range: 2.0-7.7 [...] 4.2-5.4 WBC 6.1 K/mm3 (Normal) Range: 4.4-11.0 94-Jof-181090:04 CMP CO2 29.0 mmol/L (Normal) Range: 21.0-32.0 [...] 7-18 GLU 90 mg/dL (Normal) Range: 70-110 5-Slt-389444:49 Microscopic Examination Comments: PATIENT WAS FASTINGPERFORMED BY: [employer]it [facility] [id number] Bacteria None seen (Normal) Mucus Threads Present (Normal) Epithelial Cells (non renal) 0-10 {/hpf} (Normal) Range: 0 - 10 RBC 0-3 {/hpf} (Normal) Range: 0 - 3 WBC 0-5 {/hpf} (Normal) Range: 0 - 5 :09 HgA1C , Office (87366) HgA1C , Office 6.2 % (Normal) Range: 4.6 - 7.1 :09 Blood Glucose , Office (42775) Blood Glucose , Office 152 (Normal) :12 LIPID PANEL (06795) Comments: PATIENT WAS FASTINGPERFORMED BY: [employer] [facility] [id number] LDL Cholesterol Calc 93 mg/dL (Normal) Range: 0-99 LDL/HDL Ratio 1.7 {ratio_units} (Normal) Range: 0.0-3.2 VLDL Cholesterol Huy 28 mg/dL (Normal) Range: 5-40 HDL Cholesterol 56 mg/dL (Normal) Comments: According to ATP-III Guidelines, HDL-C >59 mg/dL is considered anegative risk factor for CHD. Cholesterol, Total 177 mg/dL (Normal) Range: 100-199 Triglycerides 141 mg/dL (Normal) Range: 0-149 :12 TSH (97916) Comments: PATIENT WAS FASTINGPERFORMED BY: [employer] Npefxn5079 [facility] [id number] TSH 1.090 {uIU/mL} (Normal) Range: 0.450-4.500 :12 MICROALBUMIN: CREATININE RATIO Comments: PATIENT WAS FASTINGPERFORMED BY: [employer] Gwsvrz9105 [facility] [id number] (37598) AND (88982) Microalb/Creat Ratio 4.4 {mg/g_creat} (Normal) Range: 0.0-30.0 Creatinine, Urine 110.3 mg/dL (Normal) Range: 15.0-278.0 Microalbumin, Urine 4.9 ug/mL (Normal) Range: 0.0-17.0 :12 URINALYSIS, W/ MICRO (71481) Comments: PATIENT WAS FASTINGPERFORMED BY: [employer] Tqfhtn6163 [facility] [id number] Microscopic Examination See below: (Normal) Microscopic Examination MICRON (Normal) Comments: Microscopic follows if indicated. Nitrite, Urine Negative (Normal) Urobilinogen,Semi-Qn 0.2 mg/dL (Normal) Range: 0.0-1.9 Bilirubin Negative (Normal) Ketones Negative (Normal) Occult Blood Negative (Normal) Glucose Negative (Normal) Protein Negative (Normal) WBC Esterase Negative (Normal) Appearance Clear (Normal) Urine-Color Yellow (Normal) pH 7.0 (Normal) Range: 5.0-7.5 Specific [place] 1.021 (Normal) Range: 1.005-1.030 :12 METABOLIC PANEL, COMPREHENSIVE Comments: PATIENT WAS FASTINGPERFORMED BY: [employer] Przcii9038 [facility] [id number] (94637) ALT (SGPT) 14 [iU]/L (Normal) Range: 0-32 [...] MANUAL DIFF Comments: PATIENT WAS FASTINGPERFORMED BY: [facility]Hol[facility]6370 [facility] [id number] Information: [id number] (22922) Immature Grans (Abs) 0.0 {x10E3/uL} (Normal) Range: [...] (Normal) Range: 3.4-10.8 :20 HgA1C , Office (67140) HgA1C , Office 6.2 % (Normal) Range: 4.6 - 7.1 :20 Blood Glucose , Office (21760) Blood Glucose , Office 116 (Normal) :36 CULTURE, SPUTUM (01540) Comments: PATIENT NOT FASTINGPERFORMED BY: Kambit [facility] [id number] Information: SRC:[facility] [id number] Result 1 RRF (Normal) Comments: Routine respiratory radha Lower Respiratory Culture Final report (Normal) :55 HgA1C , Office (05616) HgA1C , Office 6.2 % (Normal) Range: 4.6 - 7.1 :55 Blood Glucose , Office (93590) Blood Glucose , Office 188 (Normal) :28 LIPID PANEL (10629) Comments: PATIENT WAS FASTINGPERFORMED BY: [employer]out6370 [facility] [id number] Information: ADD [id number] AND DRAW FEE 99 6660 LDL/HDL Ratio 2.1 {ratio_units} (Normal) Range: 0.0-3.2 LDL Cholesterol Calc 104 mg/dL (Abnormal) Range: 0-99 VLDL Cholesterol Huy 32 mg/dL (Normal) Range: 5-40 HDL Cholesterol 49 mg/dL (Normal) Comments: According to ATP-III Guidelines, HDL-C >59 mg/dL is considered anegative risk factor for CHD. Triglycerides 159 mg/dL (Abnormal) Range: 0-149 Cholesterol, Total 185 mg/dL (Normal) Range: 100-199 68-Mgu-552545:06 HgA1C , Office (01037) HgA1C , Office 5.9 % (Normal) Range: 4.6 - 7.1 :06 Blood Glucose , Office (81861) Blood Glucose , Office 94 (Normal) :48 TSH (07262) Comments: PATIENT WAS FASTINGPERFORMED BY: [employer]70 [employer] TherapeuticsFormerly [facility] [id number] TSH 1.110 {uIU/mL} (Normal) Range: 0.450-4.500 :48 URINALYSIS, W/ MICRO Comments: PATIENT WAS FASTINGPERFORMED BY: InOpenFormerly [facility] [id number] Information: [id number] (25454) Microscopic Examination See below: (Normal) Microscopic Examination MICRON (Normal) Comments: Microscopic follows if indicated. Nitrite, Urine Negative (Normal) Urobilinogen,Semi-Qn 0.2 mg/dL (Normal) Range: 0.0-1.9 Bilirubin Negative (Normal) Occult Blood Negative (Normal) Ketones Negative (Normal) Glucose Negative (Normal) Protein Negative (Normal) WBC Esterase Negative (Normal) Appearance Clear (Normal) Urine-Color Yellow (Normal) pH 7.0 (Normal) Range: 5.0-7.5 Specific [place] 1.018 (Normal) Range: 1.005-1.030 :48 MICROALBUMIN: CREATININE RATIO Comments: PATIENT WAS FASTINGPERFORMED BY: [employer] Jvnrbd1562 [facility]Critical [facility] [id number] (11259) AND (21553) Microalb/Creat Ratio 2.8 {mg/g_creat} (Normal) Range: 0.0-30.0 Microalbumin, Urine 2.8 ug/mL (Normal) Range: 0.0-17.0 Creatinine, Urine 100.6 mg/dL (Normal) Range: 15.0-278.0 :48 LIPID PANEL (65848) Comments: PATIENT WAS FASTINGPERFORMED BY: [employer] Fhkklj2379 [facility] [id number] LDL/HDL Ratio 1.9 {ratio_units} (Normal) Range: 0.0-3.2 [...] Microscopic Examination Comments: PATIENT WAS FASTINGPERFORMED BY: [employer] Ztejgq2928 [facility] [id number] Bacteria None seen (Normal) Epithelial Cells (non renal) 0-10 {/hpf} (Normal) Range: 0 - 10 RBC 0-3 {/hpf} (Normal) Range: 0 - 3 WBC 0-5 {/hpf} (Normal) Range: 0 - 5 :21 Blood Glucose , Office (04854) Blood Glucose , Office 127 (Normal) :21 HgA1C , Office (54954) HgA1C , Office 6.2 % (Normal) Range: 4.6 - 7.1 :45 HgA1C , Office (16871) HgA1C , Office 6.9 % (Normal) Range: 4.6 - 7.1 :45 Blood Glucose , Office (99256) Blood Glucose , Office 238 (Normal) :41 Microscopic Examination Comments: PATIENT WAS FASTINGPERFORMED BY: OnTheGo PlatformsJersey City Medical CenterAxdwri1788 [facility] [id number] Bacteria None seen (Normal) Mucus Threads Present (Normal) Epithelial Cells (non renal) 0-10 {/hpf} (Normal) Range: 0 - 10 RBC 0-3 {/hpf} (Normal) Range: 0 - 3 WBC 0-5 {/hpf} (Normal) Range: 0 - 5 :41 TSH (98473) Comments: PATIENT WAS FASTINGPERFORMED BY: [facility] [id number] TSH 1.290 {uIU/mL} (Normal) Range: 0.450-4.500 :41 URINALYSIS, W/ MICRO (98222) Comments: PATIENT WAS FASTINGPERFORMED BY: [facility]6[address] [facility] [id number] Microscopic Examination See below: (Normal) Nitrite, Urine Negative (Normal) Urobilinogen,Semi-Qn 0.2 mg/dL (Normal) Range: 0.0-1.9 Bilirubin Negative (Normal) Occult Blood Negative (Normal) Ketones Negative (Normal) Glucose Negative (Normal) Protein Negative (Normal) WBC Esterase 1+ (Abnormal) Appearance Clear (Normal) Urine-Color Yellow (Normal) pH 7.5 (Normal) Range: 5.0-7.5 Specific [place] 1.020 (Normal) Range: 1.005-1.030 :41 MICROALBUMIN: CREATININE RATIO Comments: PATIENT WAS FASTINGPERFORMED BY: [facility]6370 [facility] [id number] (98612) AND (53721) Microalb/Creat Ratio 2.0 {mg/g_creat} (Normal) Range: 0.0-30.0 Microalbumin, Urine 2.4 ug/mL (Normal) Range: 0.0-17.0 Creatinine, Urine 119.8 mg/dL (Normal) Range: 15.0-278.0 :41 METABOLIC PANEL, COMPREHENSIVE Comments: PATIENT WAS FASTINGPERFORMED BY: [facility]6[address] [facility] [id number] (23773) ALT (SGPT) 19 [iU]/L (Normal) Range: 0-40 [...] mg/dL (Abnormal) Range: 65-99 :41 LIPID PANEL (79405) Comments: PATIENT WAS FASTINGPERFORMED BY: [employer] [facility] [id number] LDL/HDL Ratio 1.8 {ratio_units} (Normal) Range: 0.0-3.2 [...] MANUAL DIFF Comments: PATIENT WAS FASTINGPERFORMED BY: Azuki ([employer]ozero/Gengibre) Ofupqu7331 [facility] [id number] Information: [id number] (52944) Immature Grans (Abs) 0.0 {x10E3/uL} (Normal) Range: [...] (Normal) Range: 4.0-10.5 :07 HgA1C , Office (90971) HgA1C , Office 6.4 % (Normal) Range: 4.6 - 7.1 :07 Blood Glucose , Office (36715) Blood Glucose , Office 223 (Normal) :01 HgA1C , Office (01358) HgA1C , Office 6.1 % (Normal) Range: 4.6 - 7.1 :01 Blood Glucose , Office (38256) Blood Glucose , Office 185 (Normal) :28 Hepatic Function Panel (7) Comments: PATIENT WAS FASTINGPERFORMED BY: OnTheGo PlatformsJersey City Medical CenterWwukfq5472 [facility] [id number] ALT (SGPT) 19 [iU]/L (Normal) Range: 0-40 AST (SGOT) 19 [iU]/L (Normal) Range: 0-40 Alkaline Phosphatase, S 78 [iU]/L (Normal) Range: 25-150 Bilirubin, Direct 0.12 mg/dL (Normal) Range: 0.00-0.40 Bilirubin, Total 0.3 mg/dL (Normal) Range: 0.0-1.2 Albumin, Serum 4.3 g/dL (Normal) Range: 3.5-5.5 Protein, Total, Serum 6.8 g/dL (Normal) Range: 6.0-8.5 :28 Lipid Panel With LDL/HDL Comments: PATIENT WAS FASTINGPERFORMED BY: SSN Funding Wfnjhg1354 [facility] [id number] Ratio LDL/HDL Ratio 1.6 {ratio_units} (Normal) Range: 0.0-3.2 LDL Cholesterol Calc 81 mg/dL (Normal) Range: 0-99 VLDL Cholesterol Huy 31 mg/dL (Normal) Range: 5-40 HDL Cholesterol 51 mg/dL (Normal) Comments: According to ATP-III Guidelines, HDL-C >59 mg/dL is considered anegative risk factor for CHD. Triglycerides 154 mg/dL (Abnormal) Range: 0-149 Cholesterol, Total 163 mg/dL (Normal) Range: 100-199 91-Arr-037069:27 SPINE, LUMBAR (ROUTINE) Radiology Report See Note [...] without substantial stenosis as above. Dictated on 12/26/106 by GERARDO PORTILLO MDTranscribed on 12/26/102046 by ITS IM PORTSign by GERARDO PORTILLO MD on 12/26/102047 Sign by: GERARDO PORTILLO MD :22 HgA1C , Office (43568) HgA1C , Office 6.1 % (Normal) Range: 4.6 - 7.1 :22 Blood Glucose , Office (57264) Blood Glucose , Office 140 (Normal) :19 URINALYSIS (72608) Comments: PATIENT WAS FASTINGPERFORMED BY: [facility]6370 [facility] [id number] Microscopic Examination MICRON (Normal) Comments: Microscopic follows if indicated. Nitrite, Urine Negative (Normal) Urobilinogen,Semi-Qn 0.2 mg/dL (Normal) Range: 0.0-1.9 Bilirubin Negative (Normal) Occult Blood Negative (Normal) Ketones Negative (Normal) Glucose Negative (Normal) Protein Negative (Normal) WBC Esterase Negative (Normal) Appearance Clear (Normal) Urine-Color Yellow (Normal) pH 7.0 (Normal) Range: 5.0-7.5 Specific [place] 1.016 (Normal) Range: 1.005-1.030 :19 MICROALBUMIN: CREATININE RATIO Comments: PATIENT WAS FASTINGPERFORMED BY: [employer] Scoats6624 [facility] [id number] (74777) AND (19991) Microalb/Creat Ratio 1.6 {mg/g_creat} (Normal) Range: 0.0-30.0 Microalbumin, Urine 1.9 ug/mL (Normal) Range: 0.0-17.0 Creatinine, Urine 120.1 mg/dL (Normal) Range: 15.0-278.0 :19 TSH (00396) Comments: PATIENT WAS FASTINGPERFORMED BY: OnTheGo PlatformsPresbyterian Kaseman HospitalEypwes8235 [facility] [id number] TSH 1.310 {uIU/mL} (Normal) Range: 0.450-4.500 :19 Metabolic Panel, Comments: PATIENT WAS FASTINGPERFORMED BY: The Daily MuseHolland Hospital6370 [facility] [id number] Information: [id number] [facility] (61700) ALT (SGPT) 19 [iU]/L (Normal) Range: 0-40 [...] mg/dL (Abnormal) Range: 65-99 :19 Lipid Panel (26856) Comments: PATIENT WAS FASTINGPERFORMED BY: InOpenFormerly [facility] [id number] LDL/HDL Ratio 2.5 {ratio_units} (Normal) Range: 0.0-3.2 LDL Cholesterol Calc 121 mg/dL (Abnormal) Range: 0-99 VLDL Cholesterol Huy 28 mg/dL (Normal) Range: 5-40 HDL Cholesterol 48 mg/dL (Normal) Comments: According to ATP-III Guidelines, HDL-C >59 mg/dL is considered anegative risk factor for CHD. Triglycerides 142 mg/dL (Normal) Range: 0-149 Cholesterol, Total 197 mg/dL (Normal) Range: 100-199 :30 HgA1C , Office (66684) HgA1C , Office 6.5 % (Normal) Range: 4.6 - 7.1 :30 Blood Glucose , Office (23423) Blood Glucose , Office 154 (Normal) :12 Microscopic Examination Comments: PATIENT WAS FASTINGPERFORMED BY: [employer]70 [facility] SolutionsCritical [facility] hospital [id number] Bacteria None seen (Normal) Mucus Threads Present (Normal) Epithelial Cells (non renal) 0-10 {/hpf} (Normal) Range: 0 - 10 RBC 0-3 {/hpf} (Normal) Range: 0 - 3 WBC 0-5 {/hpf} (Normal) Range: 0 - 5 :12 TSH (41187) Comments: PATIENT WAS FASTINGPERFORMED BY: InOpenFormerly [facility] [id number] TSH 1.260 {uIU/mL} (Normal) Range: 0.450-4.500 :12 URINALYSIS, W/ MICRO (06384) Comments: PATIENT WAS FASTINGPERFORMED BY: eSentire [facility] [id number] Microscopic Examination See below: (Normal) Bilirubin Negative (Normal) Microscopic Examination MICRON (Normal) Comments: Microscopic follows if indicated. Nitrite, Urine Negative (Normal) Occult Blood Negative (Normal) Urobilinogen,Semi-Qn 0.2 mg/dL (Normal) Range: 0.0-1.9 Glucose Negative (Normal) Ketones Negative (Normal) Protein Negative (Normal) Appearance Clear (Normal) pH 7.0 (Normal) Range: 5.0-7.5 Urine-Color Yellow (Normal) WBC Esterase Negative (Normal) Specific [place] 1.017 (Normal) Range: 1.005-1.030 :12 MICROALBUMIN: CREATININE RATIO Comments: PATIENT WAS FASTINGPERFORMED BY: [employer]70 [facility] HospitalLocuFormerly [facility] [id number] (32062) AND (34447) Microalb/Creat Ratio 2.4 {mg/g_creat} (Normal) Range: 0.0-30.0 Microalbumin, Urine 3.2 ug/mL (Normal) Range: 0.0-17.0 Creatinine, Urine 134.3 mg/dL (Normal) Range: 15.0-278.0 :12 METABOLIC PANEL, COMPREHENSIVE Comments: PATIENT WAS FASTINGPERFORMED BY: [employer]70 [facility] TherapeuticsFormerly [facility] [id number] (73237) Alkaline Phosphatase, S 67 [iU]/L (Normal) Range: [...] Glucose, Serum 125 mg/dL (Abnormal) Range: 65-99 64-Iku-96259:12 LIPID PANEL (66855) Comments: PATIENT WAS FASTINGPERFORMED BY: [facility] Xbgewu0487 [facility] [id number] LDL/HDL Ratio 2.3 {ratio_units} (Normal) Range: 0.0-3.2 [...] MANUAL DIFF Comments: PATIENT WAS FASTINGPERFORMED BY: LabHolland Hospital6370 [facility] [id number] Information: [id number] (09312) Baso (Absolute) 0.0 {x10E3/uL} (Normal) Range: 0.0-0.2 [...] (Normal) Range: 4.0-10.5 :50 HgA1C , Office (47444) Comments: done km HgA1C , Office 6.1 % (Normal) Range: 4.6 - 7.1 :49 Blood Glucose , Office (34987) Comments: done km Blood Glucose , Office 127 (Normal) :19 HgA1C , Office (12599) Comments: done km HgA1C , Office 6.8 % (Normal) Range: 4.6 - 7.1 :19 Blood Glucose , Office (91124) Comments: done km Blood Glucose , Office 159 (Normal) :54 HEPATIC FUNCTION PANEL Comments: PATIENT WAS FASTINGPERFORMED BY: Lesli LipMandelbrot Project [facility] [id number] BY: [employer]70 [facility] [id number] (86050) ALT (SGPT) 25 [iU]/L (Normal) Range: 0-40 AST (SGOT) 25 [iU]/L (Normal) Range: 0-40 Alkaline Phosphatase, S 89 [iU]/L (Normal) Range: 25-150 Bilirubin, Direct 0.15 mg/dL (Normal) Range: 0.00-0.40 Albumin, Serum 4.6 g/dL (Normal) Range: 3.5-5.5 Bilirubin, Total 0.5 mg/dL (Normal) Range: 0.1-1.2 Protein, Total, Serum 7.2 g/dL (Normal) Range: 6.0-8.5 :54 LIPOPROTEIN, BLD, BY NMR Comments: PATIENT WAS FASTINGPERFORMED BY: LipBlackStratus[address] [place] [address] [id number] BY: The Daily MuseCory Ville [id number] [facility] [id number] Information: [id number] (73159) HDL Size 8.3 nm (Abnormal) Comments: Small [...] AND HDL PARTICLES Percentile in Reference Popula tiHDL-P (total) High 75th 50th 25th Low>34.9 34.9 [...] 144 mg/dL (Normal) :21 HgA1C , Office (92368) Comments: done HgA1C , Office 6.1 % (Normal) Range: 4.6 - 7.1 :21 Blood Glucose , Office (39342) Comments: done Blood Glucose , Office 133 (Normal) 93-Kmj-67480:25 TSH (21604) Comments: PATIENT WAS FASTINGPERFORMED BY: [facility] Vrljzl5320 [facility] [id number] TSH 1.010 {uIU/mL} (Normal) Range: 0.450-4.500 :25 MICROALBUMIN: CREATININE RATIO Comments: PATIENT WAS FASTINGPERFORMED BY: [facility] Nhcorw2576 [facility] [id number] (37128) AND (48326) Creatinine, Urine 79.8 mg/dL (Normal) Range: 15.0-278.0 Microalb/Creat Ratio 1.6 {mg/g_creat} (Normal) Range: 0.0-30.0 Microalbumin, Urine 1.3 ug/mL (Normal) Range: 0.0-17.0 :25 METABOLIC PANEL, COMPREHENSIVE Comments: PATIENT WAS FASTINGPERFORMED BY: LabHolland Hospital6370 [facility] [id number] (01894) A/G Ratio 1.6 (Normal) Range: 1.1-2.5 Albumin, [...] BY NMR Comments: PATIENT WAS FASTINGClinical Information: [id number] PERFORMED BY: BRISEYDA CorkShare Vjllbg0986 [facility] [id number] (14726) Cholesterol, Total 197 mg/dL (Normal) HDL-C 48 [...] mg/dL (Normal) :25 CBC WITH MANUAL DIFF (34617) Comments: PATIENT WAS FASTINGPERFORMED BY: LabMeal TicketMjsltk0239 [facility] [id number] Baso (Absolute) 0.1 {x10E3/uL} (Normal) Range: 0.0-0.2 [...] (Normal) Range: 4.0-10.5 :02 HgA1C , Office (27838) Comments: done HgA1C , Office 5.9 % (Normal) Range: 4.6 - 7.1 :02 Blood Glucose , Office (43448) Comments: done Blood Glucose , Office 131 (Normal) 42-Jdt-514322:26 Blood Glucose , Office (24901) Comments: done Blood Glucose , Office 80 (Normal) 59-Maz-696197:26 HgA1C , Office (06997) Comments: done HgA1C , Office 5.7 % (Normal) Range: 4.6 - 7.1 54-Xvk-750092:18 Rapid Strep Test, Office (36776) Rapid Strep Test, Office Negative (Normal) :35 URINALYSIS W/O MICRO (74194) Comments: PATIENT WAS FASTINGPERFORMED BY: [facility] Xuiify9667 [facility] [id number] Appearance Clear (Normal) Bilirubin Negative (Normal) Glucose Negative (Normal) Ketones Negative (Normal) Microscopic Examination MICRON (Normal) Comments: Microscopic follows if indicated. Nitrite, Urine Negative (Normal) Occult Blood Negative (Normal) pH 6.5 (Normal) Range: 5.0-7.5 Protein Negative (Normal) Specific [place] 1.022 (Normal) Range: 1.005-1.030 Urine-Color Yellow (Normal) Urobilinogen,Semi-Qn 0.2 mg/dL (Normal) Range: 0.0-1.9 WBC Esterase Negative (Normal) :35 MICROALBUMIN: CREATININE RATIO Comments: PATIENT WAS FASTINGPERFORMED BY: OnTheGo PlatformsJersey City Medical CenterKutblg0274 [facility] [id number] (61987) AND (70938) Microalbum.,U,Random 1.6 ug/mL (Normal) Range: 0.0-17.0 :35 METABOLIC PANEL, COMPREHENSIVE Comments: PATIENT WAS FASTINGPERFORMED BY: OnTheGo PlatformsJersey City Medical CenterOjpens5461 [facility] [id number] (19308) A/G Ratio 1.7 (Normal) Range: 1.1-2.5 Albumin, [...] on 'Glom Filt Rate, Est' and 'If -Israeli' will be changing to >59 mL/min/1.73. Glucose, Serum 123 mg/dL (Abnormal) Range: 65-99 If -Israeli >60 mL/min (Normal) Range: 60-128 Comments: Note: [...] Sodium, Serum 137 mmol/L (Normal) Range: 135-145 15-Itc-21006:35 CBC WITH MANUAL DIFF (90104) Comments: PATIENT WAS FASTINGClinical Information: ADD DRAW FEE [id number] ADD J [id number] PERFORMED BY: LabHolland Hospital6370 [facility] [id number] Baso (Absolute) 0.1 {x10E3/uL} (Normal) Range: 0.0-0.2 [...] {x10E3/uL} (Normal) Range: 4.0-10.5 :35 LIPID PANEL (45944) Comments: PATIENT WAS FASTINGPERFORMED BY: LabCoJersey City Medical CenterUzdbpv5324 [facility] [id number] Cholesterol, Total 182 mg/dL (Normal) Range: 100-199 Comment SPRCS (Normal) Comments: If initial LDL-cholesterol result is >100 mg/dL, assess forrisk factors. HDL Cholesterol 44 mg/dL (Normal) Range: 40-59 LDL Cholesterol Calc 117 mg/dL (Abnormal) Range: 0-99 LDL/HDL Ratio 2.7 {ratio_units} (Normal) Range: 0.0-3.2 Triglycerides 106 mg/dL (Normal) Range: 0-149 VLDL Cholesterol Huy 21 mg/dL (Normal) Range: 5-40 :03 HgA1C , Office (38140) Comments: done HgA1C , Office 5.7 % (Normal) Range: 4.6 - 7.1 :03 Blood Glucose , Office (50860) Comments: done Blood Glucose , Office 141 (Normal) :07 HgA1C , Office (18233) Comments: done HgA1C , Office 5.7 % (Normal) Range: 4.6 - 7.1 :07 Blood Glucose , Office (31389) Comments: done Blood Glucose , Office 143 [...] Range: 5-40 :00 MICROALBUMIN,UR 10.4 mg/L (Normal) : TSH 0.79 {uIU/mL} (Normal) Range: 0.34-4.82 :41 Urinalysis, Office (41958) UA - BILIRUBIN Negative (Normal) UA - BLOOD Hemolyzed Small (Normal) UA - GLUCOSE Negative (Normal) UA - KETONES Negative mg/dL (Normal) UA - LEUKOCYTE ESTERASE Negative (Normal) UA - NITRITE Negative (Normal) UA - PH 6.0 (Normal) UA - PROTEIN Negative mg/dL (Normal) UA - SPECIFIC GRAVITY 1.025 (Normal) URINE UROBILINGN BALDO TIMED Normal mg/dL (Normal) 18-Bpz-551869:30 COMPLETE UA BACTERIA RARE {/hpf} (Normal) BILIRUBIN [...] Result: 0-5 SEEN :26 HgA1C , Office (14066) Comments: done HgA1C , Office 5.5 % (Normal) Range: 4.6 - 7.1 :26 Blood Glucose , Office (88811) Comments: done Blood Glucose , Office 123 (Normal) 08-Zjb-527214:55 LUKE CULTURE-OTHER (52895) 19-Kpk-148202:51 Upper Respiratory Culture Comments: Clinical Information: SRC: ADD [id number] PERFORMED BY: LabCoJersey City Medical CenterGpjojn6373 [facility] [id number] Result 1 RRF (Normal) Comments: Routine respiratory radha Upper Respiratory Culture Final report (Normal) 91-Whw-821898:23 Rapid Strep Test, Office (04035) Comments: done Rapid Strep Test, Office Negative [...] (Normal) Range: 0.34-4.82 :06 HgA1C , Office (87281) Comments: done km HgA1C , Office 5.2 % (Normal) Range: 4.6 - 7.1 :06 Blood Glucose , Office (21432) Comments: done Blood Glucose , Office 102 (Normal) :44 HgA1C , Office (09261) HgA1C , Office 5.5 % (Normal) Range: 4.6 - 7.1 :50 GLUP 210 mg/dL (Abnormal) Comments: GLU,2HPPG 75gm GLUC PPG GLUP from 0611:[id number]. Comments: Glucose result greater than or equal [...] ductal carcinoma of breast, left : Reviewed Corporate Scheduler Letter Indication: Invasive ductal carcinoma of breast, [...] mgmt Indication: Hyperlipidemia Psoriatic arthritis : Reviewed Corporate Scheduler Letter Indication: Psoriatic arthritis Diabetes mellitus type [...] Indication: Chest pain Chest pain : Reviewed Corporate Scheduler Letter Indication: Chest pain Chest pain : [...] diabetes mellitus POLYARTHROPATHY, INFLAMMATORY NOS : Reviewed Corporate Scheduler Letter Indication: POLYARTHROPATHY, INFLAMMATORY NOS Hyperlipidemia : [...] Indication: Hyperlipidemia POLYARTHROPATHY, INFLAMMATORY NOS : Reviewed Corporate Scheduler Letter Indication: POLYARTHROPATHY, INFLAMMATORY NOS Controlled diabetes [...] GERD (gastroesophageal reflux disease) Planned Observations CALCIFIDIOL (48382) VIT D 25Indication: Vitamin D deficiency On: :50 Request TSH (60689)Indication: Diabetes mellitus type 2, uncontrolled, without complications On: :50 Request URINALYSIS, W/ MICRO (06285)Indication: Diabetes mellitus type 2, uncontrolled, without complications On: :49 Request MICROALBUMIN: CREATININE RATIO (70551) AND (45893)Indication: Diabetes mellitus type 2, uncontrolled, without complications On: :49 Request METABOLIC PANEL, COMPREHENSIVE (53804)Indication: Diabetes mellitus type 2, uncontrolled, without complications On: :49 Request LIPID PANEL (89185)Indication: Diabetes mellitus type 2, uncontrolled, without complications On: :49 Request CBC W/AUTO DIFF WBC (01385)Indication: Diabetes mellitus type 2, uncontrolled, without complications On: 69-Xxc-89974:49 Request URINALYSIS, W/ MICRO (14657)Indication: Diabetes mellitus type 2, uncontrolled, without complications On: 15-Vbj-37748:00 Request Blood Glucose , Office (68604)Indication: Diabetes mellitus type 2, uncontrolled, without complications On: 90-Hrp-000819:11 Request Influenza A&B Viral Culture (31575)Indication: Body aches On: :55 Request FECAL OCCULT- Tubes sent home (29613)Indication: Encounter for screening for malignant neoplasm of colon (Renamed from Special screening for malignant neoplasms, colon) On: :34 Request Throat Culture (06678)Indication: ACUTE PHARYNGITIS (462.) On: :06 Request HEPATIC FUNCTION PANEL (32646)Indication: Hyperlipidemia On: :17 Request LIPID PANEL (99292)Indication: Hyperlipidemia On: :17 Request Rapid Strep Test, Office (49298)Indication: ACUTE PHARYNGITIS (462.) On: 96-Cyw-631409:04 Request METABOLIC PANEL, COMPREHENSIVE (78948)Indication: Controlled diabetes mellitus On: :48 Request CBC WITH MANUAL DIFF (55626)Indication: Controlled diabetes mellitus On: :48 Request LIPID PANEL (25498)Indication: Hyperlipidemia On: 08-Pkc-80347:45 Request LIPID PANEL (14565)Indication: Hyperlipidemia On: :34 Request LIPID PANEL (92740)Indication: Controlled diabetes mellitus On: :23 Request TSH (75703)Indication: Controlled diabetes mellitus On: 82-Can-854812:00 Request MICROALBUMIN: CREATININE RATIO (61796) AND (64361)Indication: Controlled diabetes mellitus On: 44-Qei-029998:00 Request METABOLIC PANEL, COMPREHENSIVE (23950)Indication: Controlled diabetes mellitus On: 77-Wam-248146:00 Request LIPID PANEL (31955)Indication: Controlled diabetes mellitus On: 41-Lix-636639:00 Request CBC WITH MANUAL DIFF (54577)Indication: Controlled diabetes mellitus On: 95-Prj-913518:00 Request URINALYSIS W MICROSCOPY (01366)Indication: Cystitis, acute On: 85-Pmi-860528:58 Request URINALYSIS W/O MICRO (41933)Indication: Controlled diabetes mellitus On: :26 Request TSH (24985)Indication: Controlled diabetes mellitus On: :26 Request METABOLIC PANEL, COMPREHENSIVE (32211)Indication: Controlled diabetes mellitus On: :26 Request MICROALBUMIN URINE QUANT (91446)Indication: Controlled diabetes mellitus On: :26 Request LIPID PANEL (76260)Indication: Controlled diabetes mellitus On: :26 Request CBC WITH MANUAL DIFF (59791)Indication: Controlled diabetes mellitus On: :26 Request LUKE CULTURE-OTHER (85395)Indication: Throat pain On: 24-Isn-007705:55 Request TSH (12451)Indication: Controlled diabetes mellitus On: :14 Request LIPID PANEL (83191)Indication: Controlled diabetes mellitus On: :14 Request MICROALBUMIN URINE QUANT (95213)Indication: Controlled diabetes mellitus On: :14 Request LIPID PANEL (89350)Indication: Family history of diabetes mellitus On: 24-Npw-193362:10 Request Glucose, PP/2 Hour (33645)Indication: Family history of diabetes mellitus On: 34-Nes-778707:10 Request Planned Procedures Holter Monitor 24 hrsBy: Karen SINGH, On: 22-Feb-2017 Intent Ruth Ibarra DO Comments: maryam to read ELECTROCARDIOGRAM, COMPLETE (ECG) On: 22-Feb-2017 Intent (50632)By: Ruth Jones DO Comments: nsr no acute chg Ruth Jones DO ELECTROCARDIOGRAM, COMPLETE (ECG) On: 07-Jul-2016 Intent (11453)By: Ruth Jones DO Comments: nsr no acute chg Ruth Jones DO Spirometry (06098)By: Karen SINGH, On: 02-Mar-2016 Intent Ruth Ibarra DO Comments: normal Aerosol Treatment (23970)By: Kaleb On: 28-Feb-2016 Intent Trinh GONZALEZ EKG (50161)By: Ruth Jones DO On: 21-Aug-2014 Intent Ruth Jones DO Comments: sinus carroll no acute chg SPECIMEN HNDLNG/TRNSPRT, OFFC > LAB On: 24-Feb-2014 Intent (85300)By: Jaquelin Shore CNP Flu Vaccine (Quadrivalent) 59373Vg: On: 18-Dec-2013 Intent Ruth Jones DO, DO, Comments: Lot:[id number]/27Amt:0.5mlRoute:IMSite: L DltdGiven By: LISA MarshVIS signed Ruth ADMINISTRATION OF INFLUENZA VIRUS On: 18-Dec-2013 Intent VACCINE (G0008)By: Ruth Jones DO, DO, Kathleen Ear Irrigation (11440)By: Silviano On: 06-Oct-2013 Jaquelin Bejarano CNP Comments: addendum to 10/06/13 OVEar Irrigation performed on:left earAmount/color removed cerumen:dark brown, large amountOUtcome:clearUsed wax curettes Wax CurettesBy: Jaquelin Shore CNP On: 06-Oct-2013 Intent Ear Irrigation (84357)By: Silviano On: 06-Oct-2013 Intent Jaquelin FRANKEL Eprescribed prescriptions (G8553)By: On: 20-Jun-2013 Intent Ruth Jones DO, DO, Kathleen EKG (67412)By: Ruth Jones DO On: 20-Jun-2013 Intent Ruth Jones DO Comments: nsr no acute chg Eprescribed prescriptions (G8553)By: On: 28-Mar-2013 Intent Ruth Jones DO, DO, Kathleen Aerosol Treatment (11576)By: On: 17-Feb-2013 Intent Natalie Covington Eprescribed prescriptions (G8553)By: On: 17-Feb-2013 Intent Natalie Covington Ultrasound - Abdomen CompleteBy: On: 16-Jan-2013 Intent Ruth Jones DO, DO, Kathleen FLU VAC, SPLIT, >3 YEARS, INTRAMUSC On: 16-Jan-2013 Intent (21413)By: Karla Santana LPN Comments: Lot:[id number]:0.5mlRoute:IMSite: L DltdGiven By: LISA MarshVIS signed IMMUNIZ ADMNIN, 1 VAC, SNGL/COMBO On: 16-Jan-2013 Intent (51536)By: Karla Santana LPN Aerosol Treatment (84409)By: Silviano On: 28-Oct-2012 Intent Jaquelin FRANKEL Eprescribed prescriptions (G8553)By: On: 28-Oct-2012 Intent Natalie Covington EKG (32766)By: Ruth Jones DO On: 24-May-2012 Intent Ruth Jones DO Eprescribed prescriptions (G8553)By: On: 24-May-2012 Intent Karla Santana LPN Eprescribed prescriptions (G8553)By: On: 11-Jan-2012 Intent Karla Santana LPN Eprescribed prescriptions (G8553)By: On: 01-Dec-2011 Intent Karla Santana LPN PNEUM VAC ADLT/IMUMNOSPR, SBC/INTRM On: 08-Sep-2011 Intent (66293)By: Ruth Jones DO Comments: Lot #[id number]/12Site-left deltoidDose- 0.5mlgiven by: LISA Soni DO, Kathleen IMMUNIZ ADMNIN, 1 VAC, SNGL/COMBO On: 08-Sep-2011 Intent (06275)By: Ruth Jones DO, DO, Kathleen EKG (28269)By: Ruth Jones DO On: 17-Mar-2011 Intent Ruth Jones DO Comments: nsr no acute changes MRI - Lumbar SpineBy: Karen SINGH, On: 22-Dec-2010 Intent Ruth Ibarra DO FLU VAC, SPLIT, >3 YEARS, INTRAMUSC On: 09-Dec-2010 Intent (59448)By: Gabriella Dey LPN Comments: had done at work in early November IMMUNIZ ADMNIN, 1 VAC, SNGL/COMBO On: 09-Dec-2010 Intent (60653)By: Gabriella Dey LPN EKG (18359)By: Ruth Jones DO On: 29-Apr-2010 Intent Ruth Jones DO Comments: nsr no acute ishcemic changes Aerosol Treatment (48690)By: Silviano On: 19-May-2009 Intent Jaquelin FRANKEL EKG (28833)By: Ruth Jones DO On: 18-Dec-2008 Intent Ruth Jones DO Comments: nsr no acute ischemic changes TDAP VACCINE >7 IM (34824)By: Karen On: 26-Jun-2008 Ruth Bejarano DO, DO, Kathleen Comments: Lot #: [id number] date: mount given:0.5 mlRoute: IMSite given: Right deltoidGiven by: Jonathan Woodruff LPN Pulse Oximetry (99827)By: Silviano FRANKEL, On: 04-Feb-2008 Intent Rossy Aerosol Treatment (17646)By: Silviano On: 04-Feb-2008 Intent Jaquelin FRANKEL EKG (79113)By: Ruth Jones DO On: 04-Oct-2007 Intent Ruth Jones DO Comments: nsr no acute ischemic changes Ear Irrigation (18518)By: Karen On: 01-Jan-2007 Ruth Bejarano DO, DO, Kathleen Comments: LEFT --KEISHA WELL EKG (76861)By: Ruth Jones DO On: 03-Aug-2006 Intent Ruth [...] mammography (2006) and screening, visual acuity (2004 [facility]). Encounter Diagnosis: Gerd (530.81), Headache, tension (307.81), Headache,Migraine (346.00), Family history of diabetes mellitus (V18.0) [facility] Payers Jessie MACE/Mela Rodriguez; a guarantor
--- OUTSIDE RECORDS SUMMARY | 2018-05-05 21:12 | XMS RPT_ITS | Continuity of Care Document ---
:1955 Author Organization [facility] Address [address] [place] [address] Phone Care Team Providers Name Role Phone [...] Medications Name Dates Details CALCIUM + D, [id number] (Oral Tablet) 1 bid for 0 days [...] 0 days Quantity: 30 {Capsule} Refills: 3 Ordered:21-Sep-2017 Karla Santana LPN Start : 21-Sep-2017 Active Ondansetron HCl 8 MG Oral Tablet prn (8 MG) Active Pen Orting 31G X 5 MM Miscellaneous 1 (one) [...] Operative Report Result: Comments: See Note; NOTES: [facility] Medical Records Department [address] [place] [address] Operative Report 05/24/17 0900 MR#: [id number] Acct: [id number] Name: JIMENEZ RODRIGUEZ Rep #: [id number] : 1955 62 From: Hodan Chong MD PCP: Ruth Jones DO Status: [facility] [place] [facility] [place] of Operation Date of Procedure: 05/24/17 Pre-Operative Diagnosis: history of left breast cancer, left axillary bulky adenopathy, left mastectomy dog ear Post-Operative Diagnosis: same as above Surgery/Procedure Performed:: Left axillary lymphadenectomy, revision of left maste ctomy dog ear Description of Surgical Findings:: bulky adenopathy of left axilla, left mastectomy lateral dog ear retail helper: Alma Swan Type of Anesthesia:: General Anesthesiologist: [...] Discharge Instruction Result: Comments: See Note; NOTES: [facility] Medical Records Department [address] [place] [address] Instructions for Home/Discharge Instructions 05/24/17902 MR#: [id number] Acct: [id number] Name: JESSICA RODRIGUEZ Rep #: [id number] : 1955 62 From: Hodan Chong MD PCP: uRth Jones DO Status: REG ILC Discharge Diet: No Restrictions Discharge Activity: Return [...] Aspirin/Acetaminophen/Caffeine [Excedrin Migraine Caplet] 1 each PO PA N PRN 04/18/17 Calm Day 3 cap PO DAILY 04/18/17 Cholecalciferol (Vitamin D3) [Vitamin D3] 2,000 unit PO DAILY 04/18/17 Ibuprofen 400 mg PO PRN PRN 04/18/17 Melatonin [Melatin] 6 mg PO QHS 04/18/17 Metfo rmin HCl 500 mg PO BID 04/18/17 Calcium (Elemental) [Os-Huy 500] 1,000 mg PO DAILY 05/23/17 Hydrocodone Bitart/Apap 5-325 [Shepherd 5MG-325MG] 1 tab PO Q6H PRN PRN #20 tab 05/24/17 The following prescrip tions were given: Hydrocodone Bitart/Apap 5-325 [Shepherd 5MG-325MG] 1 tab PO Q6H PRN PRN [...] Operative Report Result: Comments: See Note; NOTES: [facility] Medical Records Department [address] [place] [address] Operative Report 04/20/17 1454 MR#: [id number] Acct: [id number] Name: JIMENEZ RODRIGUEZ Rep #: [id number] : 1955 62 From: Palmer Hawkins MD PCP: Ruth Jones DO Status: [place] [facility]: [place] [address] Report of Operation Date of Procedure: 04/20/17 Pre-Operative Diagnosi s: left breast cancer Post-Operative Diagnosis: same Surgery/Procedure Performed:: right simple mastectomy retail helper: Brittny Mccullough Type of Anesthesia:: General Anesthesiologist: [...] 2 Views Result: Comments: See Note; NOTES: [facility] Imaging Services [address] [place] [address] Shoulder min 2 Views MR#: [id number] Acct: [id number] Name: JESSICA RODRIGUEZ Rep #: [id number] : 1955 F 61 From: Perla Henderson MD PCP: Ruth Jones DO Status: REG CLI Study: Shoulder min 2 Views Date of Exam: 12/29/16 Exam# [id number] Ordering Dr: Natalia Otto MD STUDY: X-R [...] CC: Ruth Jones DO; Natalia Otto MD Corrections Caseworker: Signed 26-Aug-2015 ELECTROCARDIOGRAM, COMPLETE (ECG) (22700) Comments: nsr no acute chg Result: [MEASUREMENTS ANALYSIS] Date of Test: 08/26/2015 07:49:01; Heart Rate: 62; PA Interval: 152; QRS: 88; QT Interval: 424; Corrected QT Interval (QTc): 427; P Wave Macon: 47; QRS Wave [place]on: 61; T Wave [place]: 47; Blood Pressure: 130/70 [ECG DIAGNOSTIC STATEMENTS] Date of Test: 08/26/2015 07:49:01; Summary: Sinus Rhythm WITHIN NORMAL LIMITS 20-Aug-2013 Chest PA and Lateral Result: Comments: See Note; NOTES: [facility] Imaging Services [address] [place] [address] Radiology Report MR#: [id number] Acct: [id number] Name: JESSICA RODRIGUEZ Rep #: [id number] : 1955 F 58 From: Edilberto Patel MD PCP: Ruth Jones DO Status: REG CLI Study: Chest PA and Lateral Date of Exam: 08/20/13 Exam# [id number] Ordering Dr: Natalia Otto MD STUDY: X-RAY [...] Edilberto Patel MD at 10:10 EDT Tel [phone], Service support [phone], Fax RAD/Chest PA and Lateral IMPRESSION: No acute abnormality is present. Electronically Signed: Edilberto Patel MD at 10:10 EDT Tel [phone], Service support [phone], CC: Ruth Jones DO; Natalia Otto MD Corrections Caseworker: Signed 22-Jan-2013 Abdomen Complete Result: Comments: See Note; NOTES: [facility] Imaging Services [address] [place] [address] Ultrasound Report MR#: [id number] Acct: [id number] Name: JESSICA RODRIGUEZ Rep #: [id number] : 1955 F 57 From: Edilberto Patel MD PCP: Status: REG CLI Study: Abdomen Complete Date of Exam: 01/22/13 Exam# [id number] Ordering Dr: Ruth Jones DO STUDY: ABDOMINAL [...] M.D. at 10:28 EST , Service support [phone], CC: Ruth Jones DO Corrections Caseworker: Signed Immunization Name Dates Details Tdap (7 years and up) on: 26-Jun-2008 Comments: Lot #: [id number] date: mount given:0.5 mlRoute: IMSite given: Right deltoidGiven by: Jonathan Woodruff LPN Family History Unknown Family Member Name Dates Details Father Comments: DM, Heart Dz, Cholestrol, arthlosclorsis Status: Active Maternal Grandmother Comments: BR CA Status: Active Social History Name Dates Details Alcohol Use Comments: Occasional alcohol use Status: Active Caffeine Use Comments: 2-4 QD Status: Active 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, [employer] Status: Active Exercise History Comments: Moderate, [...] Calculated 1.96 m2 Head Circumference 0.00 cm 21-Mlq-732766:00 Temperature 98.3 f Comments: Method: Oral Pulse [...] Description Value Details :15 HgA1C , Office (19129) HgA1C , Office 5.6 % (Normal) Range: 4.6 - 7.1 :15 Blood Glucose , Office (75077) Blood Glucose , Office 135 (Normal) 98-Tgt-015224:17 Bedside Glucose Comments: [facility] [address] [facility] [place], [place] [address] BEDSIDE GLU 126 mg/dL (Abnormal) Range: 70-110 Comments: MANAGEMENT OF PATIENT CARE PER NURSING PROTOCOL 24-May-2017 MISCELLANEOUS SPECIMEN See Note (Normal) Comments: [facility] [address] [facility] [place], [place], [address] 7:30 Comments: Patient: JESSICA RODRIGUEZ : 1955 (62/F) Acct Num: [id number] Phys: Castillo MCMILLAN,Hodan Unit Num: [id number] [place] [facility] [place] Specimen: [id number] Received: 05/24/17 - 1037 Spec Type: MIS [...] The lymph nodes are submitted in entirety. Locket Maker sections are submitted as follows: 1 multiple [...] dog ear. No mass lesion is identified. Locket Maker sections are submitted in four cassettes. / SJ:lilibeth 05/24/17 TC:0 CPT: 38917, 24705 HEADER OPERATION: Excision lymph node, axillary PRE-OP DIAGNOSIS: Left breast cancer, invasive ductal, ER/PA positive, HER2 negative, bulky adenopathy of left axilla TISSUE SUBMITTED: A Left axillary contents, B Dog ear MICROSCOPIC DESCRIPTION Slides are reviewed. A. The largest lymph node contains benign histiocytic proliferation, fibrosis and minimal chronic inflammation co nsistent with previous biopsy and resection ([id number]). Immunohistochemistry ([id number]) supports the presence of isolated metastatic tumor cells in one out of seven lymph nodes. MICROSCOPIC DIAGNO SIS A. Left axillary contents, regional lymphadenectomy: Isolated metastatic tumor cells in one of seven lymph nodes. B. Dog ear, excision: Skin with attached fibrofatty tissue with reactive and reparative change and suture granulomas. No evidence of malignancy. AM:lilibeth 05/28/[address] [facility] 05/30/17 <signature on file> 82-Rsa-12889:44 Bedside Glucose Comments: [facility] [address] [place] [address] BEDSIDE GLU 178 mg/dL (Abnormal) Range: 70-110 Comments: MANAGEMENT OF PATIENT CARE PER NURSING PROTOCOL : IMMUNOHISTOCHEMISTRY See Note (Normal) Comments: [facility] [address] [place], [address] 00 Comments: Patient: JESSICA RODRIGUEZ : 1955 (62/F) Acct Num: [id number] Phys: Castillo MCMILLAN,Hodan Unit Num: [id number] [place] [facility] [place] Specimen: [id number] Received: 05/28/171425 Spec Type: IMM JOSELO TISSUES TISSUES: A. Axilla, NOS SPECIMEN INFORMATION: Tissue Source: A Left axillary contents Clinical Info: Left breast cancer Specimen Number: [id number] A1, A2, A4, A5, A7 CPT code: 18578, 31592 x4 METHODOLOGY: Deparaffinized sections of prefer/formalin-fixed tissue [...] and their performance characteristics dete rmined by [facility]. They may not have been cleared or approved by the U.S. Food and Drug Administration. The FDA has determined that such clearance or approval is not nece ssary. INTERPRETATION: A. Left axillary contents: Isolated metastatic tumor cells present in one out of seven lymph nodes. AM:lilibeth 05/30/17 PHYSICIAN AND INSTITUTION [facility] [address] [place], [place] [address] Signed Sotero Townsend 05/30/17 <signature on file> 4-Otb-620980:05 Bedside Glucose Comments: [facility] [address] [place] [address] [place] [address] BEDSIDE GLU 162 mg/dL (Abnormal) Range: 70-110 Comments: MANAGEMENT OF PATIENT CARE PER NURSING PROTOCOL 20-Apr-20179:32 Bedside Glucose Comments: [facility] [address] [place] [address] BEDSIDE GLU 137 mg/dL (Abnormal) Range: 70-110 Comments: MANAGEMENT OF PATIENT CARE PER NURSING PROTOCOL 19-Apr-20179:17 Basic Metabolic Profile (BMP) Comments: [address] [place], [address] GAP 9 (Normal) Range: 5-15 [...] A.D.A. criteria.Please note revised GLUCOSE reference range roxhdsygu41/02/2018. 19-Apr-20179:17 CBC-Complete Blood Cnt No Diff Comments: [facility] [address] [place], [place], [address] MPV 9.4 fL (Normal) Range: 6.2-12.0 PLT [...] (Normal) Range: 4.4-11.0 :17 Hemoglobin A1c Comments: [facility] [address] [place], [place], [address] HGB A1C 6.3 % (Normal) Range: 4.2-6.3 BREAST BIOPSY (CHOOSE SITE) See Note (Normal) Comments: [facility] [address] [place], [place], [address] 813:15 Comments: Patient: JESSICA RODRIGUEZ : 1955 (62/F) Acct Num: [id number] Phys: Castillo MCMILLAN,Hodan Unit Num: [id number] Loc: [facility] Specimen: [id number] Received: 04/06/171200 Spec Type: BREAST BX TISSUES TISSUES: Left breast, NOS COMMENT Immunohistochemistry ([id number]) supports the above diagnosis. ER/PA/Nuy4fyd studies are being performed on sections of tumor and the results from this study will be reported separately ([id number] [id number]). Please make reference to previous specimen ([id number]) left breast, core biopsy with diagnosis of fibrocystic change wi th associated microcalcifications. GROSS DESCRIPTION Received is one container labeled with the patient's name and not further designated. The specimen consists of multiple elongated fragments o f bagley-yellowfibroadipose tissue that in aggregate measure 3 x 2 x 0.1 cm. The entire specimen is submitted in one cassette. / SJ:lilibeth 04/06/17 TC:0 CPT: 20910 HEADER OPERATION: Ultrasound-guided left breast needle core [...] on file> IMMUNOHISTOCHEMISTRY See Note (Normal) Comments: [facility] [address] [place], [address] 80:00 Comments: Patient: JESSICA RODRIGUEZ : 1955 (62/F) Acct Num: [id number] Phys: Hodan Chong MD Unit Num: [id number] Loc: [facility] Specimen: [id number] Received: 04/09/17 - 1250 Spec Type: IMMUNO TISSUES TISSUES: Left breast, NOS SPECIMEN INFORMATION: Tissue Source: Left breast needle core biopsy Clinical Info: Abnormal left mammogram/ultrasound [facility] Number: [id number] CPT code: 06171, 00104 x4, 63267 x3 METHODOLOGY: Deparaffinized sections of prefer/formalin-fixed tissue or PAP/DQ stained slides are incubated with monoclonal/polyclonal a ntibodies/oligonucleotide probes. Localization is made via biotin free immunoperoxidase method. Appropriate controls are performed and reacted as expected. Results on target cell population are indic ated in the following table: RESULTS: ANTIBODY / CLONE RESULT E-Cad (ECH-6) positive CK8 (67uzknF47) positive CK5-6 (D5 AND 1684) nega tive Ki-67 (30-9) positive, moderate P53 (DO-7) positive MORPHOMETRIC ANALYSIS ER (clone 6F11) >95% , strong PA (clone 16/1E2) variable, 0-11%, weak Her- 2Neu [...] recommended for all equivocal cases. Positivity/negativity for ER/PA is reported if > or < 1% of the tumor cells are immuno- reactive, respectively. The ASCO/C AP criteria is used for scoring. Reference: Journal of Clinical Oncology, 2013; 31:9404-7742 AND 2010; 16:8139-5335. Duration of fixation: 54.5 Hrs; Sample Adequate: Yes. These assays have not bee n validated on decalcified tissues. Results should beinterpreted with caution given the likelihood of false negativity on decalcifiedspecimens. These tests were developed and their performance amanda cteristics determined by [facility]. They may not have been cleared or approved by the U.S. Food and Drug Administration. The FDA has determined that such clearance or appro esequiel is not necessary. INTERPRETATION: Left breast, ultrasound-guided needle core biopsy: Invasive ductal carcinoma, nuclear grade 3. Positive for estrogen receptors (favorable prognostic indicator). Positive for progesterone receptors (favorable prognostic indicator). Negative for overexpression of RJE4tej. SJ:lilibeth 04/10/17 PHYSICIAN AND INSTITUTION [address] [address] Signed Ildefonso Skinner 04/10/17 <signature on file> COLON BIOPSY (CHOOSE SITE) See Note (Normal) Comments: [facility] [address] [place], [address] 811:08 Comments: Patient: JESSICA RODRIGUEZ : 1955 (61/F) Acct Num: [id number] Phys: Yovani Mcduffie Unit Num: [id number] Loc: [facility] Specimen: [id number] Received: 03/01/17 - [...] one cassette. / DAI:lilibeth 03/02/17 TC:1 CPT: 17790 x2 HEADER OP ERATION: Colonoscopy with polypectomy [...] Signed Ildefonso Skinner 03/05/17 <signature on file> 51-Yms-53501:14 Metabolic Panel, Basic (99768) Comments: PATIENT NOT FASTINGPERFORMED BY: [facility] CenterPnsmbx8827 [facility] [id number] Calcium, Serum 9.2 mg/dL (Normal) Range: 8.7-10.3 [...] (Abnormal) Range: 65-99 :58 HgA1C , Office (21832) HgA1C , Office 6.8 % (Normal) Range: 4.6 - 7.1 :58 Blood Glucose , Office (21706) Blood Glucose , Office 166 (Normal) :17 CBC W/Diff, Automated Comments: [facility] [address] [place], [place], [address] Absolute Lymph 1.78 {X10_3/ul} (Normal) Range: 0.83-4.51 [...] Range: 4.4-11.0 :17 Comprehensive Metabolic Profil Comments: [facility] [address] [place], [address] GAP 7 (Normal) Range: 5-15 CO2 29.0 [...] per A.D.A. criteria. :11 HgA1C , Office (20978) HgA1C , Office 6.3 % (Normal) Range: 4.6 - 7.1 :11 Blood Glucose , Office (08837) Blood Glucose , Office 154 (Normal) :56 CALCIFIDIOL (80551) VIT D 25 Comments: PATIENT WAS FASTINGPERFORMED BY: [employer] [address] [place] [id number] Vitamin D, 25-Hydroxy 28.4 ng/mL (Abnormal) Range: 30.0-100.0 Comments: Vitamin D deficiency has been defined by the [place] of[place] and an Endocrine Society practice guideline as alevel of serum 25-OH vitamin D less than 20 ng/mL (1,2).The Endocrine Society went on to further define vitamin Dinsufficiency as a level between 21 and 29 ng/mL (2).1. IOM ([place]). 2010. Dietary reference intakes for calcium and D. [place]: The National Academies Press.2. Sara MF, Johanna NC, Rosanna SOMMER, et al. Evaluation, treatment, and prevention of vitamin D deficiency: an Endocrine Society clinical practice guideline. JCEM. 2010; 96(7):1911-30. :56 TSH (59606) Comments: PATIENT WAS FASTINGPERFORMED BY: Ideapodlin[address]370 [address] Healthsource S[place]MemberTender.combl[place] [id number] TSH 0.824 {uIU/mL} (Normal) Range: 0.450-4.500 :56 MICROALBUMIN: CREATININE RATIO Comments: PATIENT WAS FASTINGPERFORMED BY: [employer] [address] [facility] [place] [id number] (00350) AND (87255) Microalb/Creat Ratio 8.0 {mg/g_creat} (Normal) Range: 0.0-30.0 Microalbumin, Urine 8.3 ug/mL (Normal) Creatinine, Urine 103.7 mg/dL (Normal) :56 METABOLIC PANEL, COMPREHENSIVE Comments: PATIENT WAS FASTINGPERFORMED BY: [employer] Ebgxxz2032 [facility] [id number] (23126) ALT (SGPT) 14 [iU]/L (Normal) Range: 0-32 [...] Glucose, Serum 145 mg/dL (Abnormal) Range: 65-99 40-Mbg-988699:56 CBC W/AUTO DIFF WBC (78471) Comments: PATIENT WAS FASTINGPERFORMED BY: [facility] Zoocjo4154 [facility] [id number] Immature Grans (Abs) 0.0 {x10E3/uL} (Normal) Range: [...] {x10E3/uL} (Normal) Range: 3.4-10.8 :56 LIPID PANEL (36169) Comments: PATIENT WAS FASTINGPERFORMED BY: [facility] CenterXlytsg8185 [facility] [id number] LDL/HDL Ratio 1.6 {ratio_units} (Normal) Range: 0.0-3.2 [...] (Normal) Range: 100-199 :27 HgA1C , Office (04908) HgA1C , Office 7.6 % (Abnormal) Range: 4.6 - 7.1 :27 Blood Glucose , Office (32454) Blood Glucose , Office 192 (Normal) 80-Wsv-110161:11 HgA1C , Office (24885) HgA1C , Office 6.8 % (Normal) Range: 4.6 - 7.1 :33 Microscopic Examination Comments: PATIENT WAS FASTINGPERFORMED BY: [employer] [facility]energyox [facility] [id number] Bacteria Few (Normal) Mucus Threads Present (Normal) Epithelial Cells (non renal) 0-10 {/hpf} (Normal) Range: 0 - 10 RBC 3-10 {/hpf} (Abnormal) Range: 0 - 2 WBC 0-5 {/hpf} (Normal) Range: 0 - 5 :31 Throat Culture (81816) Comments: PATIENT NOT FASTINGPERFORMED BY: [employer]r [address] [facility] [id number] Information: SRC:TH Result 1 BETAGC (Abnormal) Comments: [...] report (Abnormal) :55 Influenza A&B Viral Culture (48956) :55 Rapid Flu (69393 x 2) Influenza A Ag negative (Normal) :43 Rapid Strep Test, Office (58649) Rapid Strep Test, Office Negative (Normal) :33 CALCIFIDIOL (35634) VIT D 25 Comments: PATIENT WAS FASTINGPERFORMED BY: [employer] Xzosyc8859 [facility] [id number] Vitamin D, 25-Hydroxy 30.8 ng/mL (Normal) Range: 30.0-100.0 Comments: Vitamin D deficiency has been defined by the [place] and an Endocrine Society practice guideline as alevel of serum 25-OH vitamin D less than 20 ng/mL (1,2).The Endocrine Society went on to further define vitamin Dinsufficiency as a level between 21 and 29 ng/mL (2).1. IOM ([place]). 2010. Dietary reference intakes for calcium and D. [place]: The National AcademRenal Solutions Press.2. Sara MF, Johanna NC, Rosanna SOMMER, et al. Evaluation, treatment, and prevention of vitamin D deficiency: an Endocrine Society clinical practice guideline. JCEM. 2010; 96(7):1911-30. :33 TSH (20331) Comments: PATIENT WAS FASTINGPERFORMED BY: [employer] [place] [id number] TSH 1.190 {uIU/mL} (Normal) Range: 0.450-4.500 :33 URINALYSIS, W/ MICRO (51403) Comments: PATIENT WAS FASTINGPERFORMED BY: [employer] [place] [id number] Microscopic Examination See below: (Normal) Comments: Microscopic was indicated and was performed. Nitrite, Urine Negative (Normal) Urobilinogen,Semi-Qn 0.2 mg/dL (Normal) Range: 0.2-1.0 Bilirubin Negative (Normal) Occult Blood 1+ (Abnormal) Ketones Negative (Normal) Glucose Negative (Normal) Protein Negative (Normal) WBC Esterase 1+ (Abnormal) Appearance Clear (Normal) Urine-Color Yellow (Normal) pH 6.5 (Normal) Range: 5.0-7.5 Specific [place] 1.020 (Normal) Range: 1.005-1.030 :33 MICROALBUMIN: CREATININE RATIO Comments: PATIENT WAS FASTINGPERFORMED BY: [employer] [place] [id number] (22241) AND (65021) Microalb/Creat Ratio 7.7 {mg/g_creat} (Normal) Range: 0.0-30.0 Microalbumin, Urine 7.4 ug/mL (Normal) Creatinine, Urine 96.3 mg/dL (Normal) 40-Gth-51715:33 METABOLIC PANEL, COMPREHENSIVE Comments: PATIENT WAS FASTINGPERFORMED BY: [facility]Over[facility] CenterDtccmu9408 [facility] [id number] (88452) ALT (SGPT) 16 [iU]/L (Normal) Range: 0-32 [...] mg/dL (Abnormal) Range: 65-99 :33 LIPID PANEL (97544) Comments: PATIENT WAS FASTINGPERFORMED BY: Rezora Fecriw8842 [facility] [id number] LDL/HDL Ratio 2.0 {ratio_units} (Normal) Range: 0.0-3.2 [...] Range: 100-199 :33 CBC W/AUTO DIFF WBC (22033) Comments: PATIENT WAS FASTINGPERFORMED BY: Devicescapelin6370 [facility] [id number] Immature Grans (Abs) 0.0 {x10E3/uL} (Normal) Range: [...] Range: 3.4-10.8 :06 Blood Glucose , Office (51870) Blood Glucose , Office 130 (Normal) :06 HgA1C , Office (29467) HgA1C , Office 6.3 % (Normal) Range: 4.6 - 7.1 :06 Rapid Strep Test, Office (15093) Rapid Strep Test, Office Negative (Normal) :48 HgA1C , Office (19112) HgA1C , Office 6.3 % (Normal) Range: 4.6 - 7.1 :48 Blood Glucose , Office (59297) Blood Glucose , Office 121 (Normal) :09 MICROALBUMIN: CREATININE RATIO Comments: PATIENT WAS FASTINGPERFORMED BY: GROUNDFLOOR70 [facility] [facility] [id number] (16331) AND (96429) Microalb/Creat Ratio 3.7 {mg/g_creat} (Normal) Range: 0.0-30.0 Microalbumin, Urine 3.3 ug/mL (Normal) Creatinine, Urine 88.7 mg/dL (Normal) :09 URINALYSIS (42800) Comments: PATIENT WAS FASTINGPERFORMED BY: Fanear [facility] [id number] Microscopic Examination MICNIP (Normal) Comments: Microscopic not indicated and not performed. Nitrite, Urine Negative (Normal) Urobilinogen,Semi-Qn 0.2 mg/dL (Normal) Range: 0.2-1.0 Bilirubin Negative (Normal) Occult Blood Negative (Normal) Ketones Negative (Normal) Glucose Negative (Normal) Protein Negative (Normal) WBC Esterase Negative (Normal) Appearance Clear (Normal) Urine-Color Yellow (Normal) pH 6.0 (Normal) Range: 5.0-7.5 Specific [place] 1.017 (Normal) Range: 1.005-1.030 :09 TSH (05497) Comments: PATIENT WAS FASTINGPERFORMED BY: [facility]6370 [facility] [id number] TSH 1.390 {uIU/mL} (Normal) Range: 0.450-4.500 :09 CBC WITH MANUAL DIFF Comments: PATIENT WAS FASTINGPERFORMED BY: [facility]6370 [facility] [id number] Information: 212906,C32586 (19071) Immature Grans (Abs) 0.0 {x10E3/uL} (Normal) Range: [...] Panel, Comprehensive Comments: PATIENT WAS FASTINGPERFORMED BY: efw-suhl70 OrtizSoft MachinesCarolinas [facility] [id number] (89304) ALT (SGPT) 16 [iU]/L (Normal) Range: 0-32 [...] mg/dL (Abnormal) Range: 65-99 :09 Lipid Panel (87801) Comments: PATIENT WAS FASTINGPERFORMED BY: ODEC6370 OrtizImagine CommunicationsYad[facility] [id number] LDL/HDL Ratio 2.0 {ratio_units} (Normal) Range: 0.0-3.2 [...] 187 mg/dL (Normal) Range: 100-199 :09 CALCIFEDIOL (69715) Comments: PATIENT WAS FASTINGPERFORMED BY: bewarketCarolinas [facility] [id number] Vitamin D, 25-Hydroxy 33.6 ng/mL (Normal) Range: 30.0-100.0 Comments: Vitamin D deficiency has been defined by the [place] and an Endocrine Society practice guideline as alevel of serum 25-OH vitamin D less than 20 ng/mL (1,2).The Endocrine Society went on to further define vitamin Dinsufficiency as a level between 21 and 29 ng/mL (2).1. IOM ([place]). 2010. Dietary reference intakes for calcium and D. [place]: The National Academies Press.2. Sara MF, Johanna NC, Rosanna SOMMER, et al. Evaluation, treatment, and prevention of vitamin D deficiency: an Endocrine Society clinical practice guideline. JCEM. 2010; 96(7):1911-30. :15 HgA1C , Office (32466) HgA1C , Office 6.7 % (Normal) Range: 4.6 - 7.1 :15 Blood Glucose , Office (23491) Blood Glucose , Office 142 (Normal) :18 Microscopic Examination Comments: PATIENT WAS FASTINGPERFORMED BY: [employer] Tkwbwp2666 [facility] [id number] Bacteria None seen (Normal) Mucus Threads Present (Normal) Epithelial Cells (non renal) 0-10 {/hpf} (Normal) Range: 0 - 10 RBC 0-2 {/hpf} (Normal) Range: 0 - 2 WBC 0-5 {/hpf} (Normal) Range: 0 - 5 0-Mje-725320:01 CBC W/Diff, Automated Comments: [facility] [address] [place], [address] Absolute Lymph 1.22 {X10_3/ul} (Normal) [...] 4.2-5.4 WBC 8.8 K/mm3 (Normal) Range: 4.4-11.0 9-Kma-817258:01 Comprehensive Metabolic Profil Comments: [facility] [address] [place], [place], [id number] GAP 7 (Normal) Range: 5-15 CO2 29.0 [...] DIABETES MELLITUS per A.D.A. criteria. :18 TSH (95152) Comments: PATIENT WAS FASTINGPERFORMED BY: [facility] [id number] TSH 1.070 {uIU/mL} (Normal) Range: 0.450-4.500 :18 URINALYSIS, W/ MICRO (45658) Comments: PATIENT WAS FASTINGPERFORMED BY: [facility] [id number] Microscopic Examination See below: (Normal) Comments: Microscopic was indicated and was performed. Nitrite, Urine Negative (Normal) Urobilinogen,Semi-Qn 0.2 mg/dL (Normal) Range: 0.2-1.0 Bilirubin Negative (Normal) Occult Blood Trace (Abnormal) Ketones Negative (Normal) Glucose Negative (Normal) Protein Negative (Normal) WBC Esterase Negative (Normal) Appearance Clear (Normal) Urine-Color Yellow (Normal) pH 6.5 (Normal) Range: 5.0-7.5 Specific [place] 1.015 (Normal) Range: 1.005-1.030 :18 MICROALBUMIN: CREATININE RATIO Comments: PATIENT WAS FASTINGPERFORMED BY: [employer] Hvsuht6803 [facility] [id number] (81766) AND (05758) Microalb/Creat Ratio 5.4 {mg/g_creat} (Normal) Range: 0.0-30.0 Microalbumin, Urine 5.9 ug/mL (Normal) Range: 0.0-17.0 Creatinine, Urine 109.1 mg/dL (Normal) Range: 15.0-278.0 :18 CBC W/AUTO DIFF WBC Comments: PATIENT WAS FASTINGPERFORMED BY: HowbuyOverlook Medical CenterGzumbu2527 [facility] [id number] Information: [id number] (69517) Immature Grans (Abs) 0.0 {x10E3/uL} (Normal) Range: [...] PANEL, COMPREHENSIVE Comments: PATIENT WAS FASTINGPERFORMED BY: LabCoOverlook Medical CenterRynojv9888 [facility] [id number] (05270) ALT (SGPT) 18 [iU]/L (Normal) Range: 0-32 [...] mg/dL (Abnormal) Range: 65-99 :18 LIPID PANEL (62433) Comments: PATIENT WAS FASTINGPERFORMED BY: Gina Alexander DesignOverlook Medical CenterGeuegp9509 [facility] [id number] LDL/HDL Ratio 1.8 {ratio_units} (Normal) Range: 0.0-3.2 [...] 199 mg/dL (Normal) Range: 100-199 :18 CALCIFIDIOL (86905) VIT D 25 Comments: PATIENT WAS FASTINGPERFORMED BY: [employer] Uouipg0116 [facility] [id number] Vitamin D, 25-Hydroxy 27.9 ng/mL (Abnormal) Range: 30.0-100.0 Comments: Vitamin D deficiency has been defined by the [place] of[place] and an Endocrine Society practice guideline as alevel of serum 25-OH vitamin D less than 20 ng/mL (1,2).The Endocrine Society went on to further define vitamin Dinsufficiency as a level between 21 and 29 ng/mL (2).1. IOM ([place]). 2010. Dietary reference intakes for calcium and D. [place]: The National Academies Press.2. Sara MF, Johanna JOSEPH, PratimaReva SOMMER et al. Evaluation, treatment, and prevention of vitamin D deficiency: an Endocrine Society clinical practice guideline. JCEM. 2010; 96(7):1911-30. :08 HgA1C , Office (28276) HgA1C , Office 6.3 % (Normal) Range: 4.6 - 7.1 :08 Blood Glucose , Office (25616) Blood Glucose , Office 253 (Normal) :20 CALCIFIDIOL (55609) VIT D Comments: PATIENT WAS FASTINGPERFORMED BY: [facility] Blevue6580 [facility] [id number] Information: [id number] Vitamin D, 25-Hydroxy 32.3 ng/mL (Normal) Range: 30.0-100.0 Comments: Vitamin D deficiency has been defined by the [place] [employer] and an Endocrine Society practice guideline as alevel of serum 25-OH vitamin D less than 20 ng/mL (1,2).The Endocrine Society went on to further define vitamin Dinsufficiency as a level between 21 and 29 ng/mL (2).1. IOM ([place]). 2010. Dietary reference intakes for calcium and D. [place]: The National Academies Press.2. Sara MF, Johanna JOSEPH, Rosanna SOMMER, et al. Evaluation, treatment, and prevention of vitamin D deficiency: an Endocrine Society clinical practice guideline. JCEM. 2010; 96(7):1911-30. :52 HgA1C , Office (05390) HgA1C , Office 6.4 % (Normal) Range: 4.6 - 7.1 :52 Blood Glucose , Office (31186) Blood Glucose , Office 124 (Normal) :03 CBC W/Diff, Automated Comments: Test performed at:[facility] [address] [place], [place] [address] Absolute Lymph 1.29 {X10_3/ul} (Normal) Range: 0.83-4.51 [...] 18-Aug-20149:03 Comprehensive Metabolic Profil Comments: Test performed at:[facility] [address], [place] [id number] GAP 7 (Normal) Range: 5-15 CO2 29.0 [...] Panel (7) Comments: PATIENT WAS FASTINGPERFORMED BY: GROUNDFLOOR70 [facility] CloudY[facility] [id number] ALT (SGPT) 16 [iU]/L (Normal) Range: 0-32 AST (SGOT) 18 [iU]/L (Normal) Range: 0-40 Alkaline Phosphatase, S 71 [iU]/L (Normal) Range: 39-117 Bilirubin, Direct 0.12 mg/dL (Normal) Range: 0.00-0.40 Bilirubin, Total 0.4 mg/dL (Normal) Range: 0.0-1.2 Albumin, Serum 4.4 g/dL (Normal) Range: 3.5-5.5 Protein, Total, Serum 6.5 g/dL (Normal) Range: 6.0-8.5 :43 Lipid Panel With LDL/HDL Comments: PATIENT WAS FASTINGPERFORMED BY: ODEC6370 [facility] CloudYadkin [facility] Hospital [id number] Information: [id number] Ratio LDL/HDL Ratio 1.4 {ratio_units} (Normal) Range: [...] Cholesterol, Total 158 mg/dL (Normal) Range: 100-199 28-Oll-184126:13 CBC W/Diff, Automated Comments: Test performed at:[facility] [address]mp[address] [place], [place] [id number] Absolute Lymph 2.30 {X10_3/ul} (Normal) Range: 0.83-4.51 [...] :13 Comprehensive Metabolic Profil Comments: Test performed at:[facility] Cdejwqkwla2065 [place] [address] ; ordered by nathan GAP 7 (Normal) [...] <126 mg/dLsuggests IMPAIRED HOMEOSTASIS per A.D.A. criteria. 38-Ewm-967794:18 CBC W/Diff, Automated Comments: Test performed at:[facility] [address] [place] [address] Absolute Lymph 2.19 {X10_3/ul} (Normal) [...] 4.2-5.4 WBC 6.3 K/mm3 (Normal) Range: 4.4-11.0 77-Adh-332669:18 Comprehensive Metabolic Profil Comments: Test performed at:[facility] [address] [place], [place] [id number] GAP 4 (Abnormal) Range: 5-15 CO2 32.0 [...] <126 mg/dLsuggests IMPAIRED HOMEOSTASIS per A.D.A. criteria. 33-Ydv-993717:01 LUKE CULTURE-OTHER (54862) Comments: PATIENT NOT FASTINGPERFORMED BY: [facility] Fiiyie4727 [facility] [id number] Information: SRC:THRT [id number] Result 1 RRF (Normal) Comments: Routine respiratory radha Upper Respiratory Culture Final report (Normal) 27-Pgc-12858:11 Paradise Client Glucose Comments: Test performed at:[facility] [address]ujbc[address] [place], [place] [address](444) GLU 124 mg/dL (Abnormal) Range: 70-110 Comments: Fasting Glucose result from 110 to <126 mg/dLsuggests IMPAIRED HOMEOSTASIS per A.D.A. criteria. 91-Qdh-00802:11 [facility] Client Lipid Profile Comments: Test performed at:[facility] [address]bjv[address] [place] [address] VLDL 32 mg/dL (Normal) Range: 5-40 LDL [...] Examination Comments: PATIENT WAS FASTINGPERFORMED BY: [facility] Mwozcl0266 [address]iz RoadDublin [place] [id number] Bacteria None seen (Normal) Mucus Threads Present (Normal) Epithelial Cells (non renal) 0-10 {/hpf} (Normal) Range: 0 - 10 RBC 0-2 {/hpf} (Normal) Range: 0 - 2 WBC 0-5 {/hpf} (Normal) Range: 0 - 5 :01 Vitamin D Hydroxy (09196) Comments: PATIENT WAS FASTINGPERFORMED BY: [facility] Kzezjv0417 [address]iz RoadDublin [place] [id number] Vitamin D, 25-Hydroxy 31.0 ng/mL (Normal) Range: 30.0-100.0 Comments: Vitamin D deficiency has been defined by the [place] and an Endocrine Society practice guideline as alevel of serum 25-OH vitamin D less than 20 ng/mL (1,2).The Endocrine Society went on to further define vitamin Dinsufficiency as a level between 21 and 29 ng/mL (2).1. IOM ([place]). 2010. Dietary reference intakes for calcium and D. [place]: The National Academies Press.2. Sara MF, Johanna NC, Rosanna SOMMER, et al. Evaluation, treatment, and prevention of vitamin D deficiency: an Endocrine Society clinical practice guideline. JCEM. 2010; 96(7):1911-30. :01 TSH (88310) Comments: PATIENT WAS FASTINGPERFORMED BY: CB [facility] Myohib4094 [address] RoadDublin [place] [id number] TSH 0.986 {uIU/mL} (Normal) Range: 0.450-4.500 :01 URINALYSIS, W/ MICRO (96141) Comments: PATIENT WAS FASTINGPERFORMED BY: [facility] Cfhdcs4974 Ortiz RoadDublin [place] [id number] Microscopic Examination See below: (Normal) Comments: Microscopic was indicated and was performed. Microscopic Examination MICRON (Normal) Comments: Microscopic follows if indicated. Nitrite, Urine Negative (Normal) Urobilinogen,Semi-Qn 0.2 mg/dL (Normal) Range: 0.0-1.9 Bilirubin Negative (Normal) Occult Blood Negative (Normal) Ketones Negative (Normal) Glucose Negative (Normal) Protein Negative (Normal) WBC Esterase Negative (Normal) Appearance Clear (Normal) Urine-Color Yellow (Normal) pH 6.5 (Normal) Range: 5.0-7.5 Specific [place] 1.018 (Normal) Range: 1.005-1.030 :01 MICROALBUMIN: CREATININE RATIO Comments: PATIENT WAS FASTINGPERFORMED BY: HowbuyShiprock-[facility] CenterbZgwnew8522 [facility] [id number] (42466) AND (63657) Microalb/Creat Ratio 2.1 {mg/g_creat} (Normal) Range: 0.0-30.0 Microalbumin, Urine 2.0 ug/mL (Normal) Range: 0.0-17.0 Creatinine, Urine 93.5 mg/dL (Normal) Range: 15.0-278.0 :01 METABOLIC PANEL, COMPREHENSIVE Comments: PATIENT WAS FASTINGPERFORMED BY: Gina Alexander DesignOverlook Medical CenterFfamyk4477 [facility] [id number] (76215) ALT (SGPT) 12 [iU]/L (Normal) Range: 0-32 [...] mg/dL (Abnormal) Range: 65-99 :01 LIPID PANEL (11497) Comments: PATIENT WAS FASTINGPERFORMED BY: [facility]LaY[facility] [id number] LDL/HDL Ratio 2.3 {ratio_units} (Normal) Range: 0.0-3.2 [...] Range: 100-199 :01 CBC W/AUTO DIFF WBC (06681) Comments: PATIENT WAS FASTINGPERFORMED BY: [facility] [id number] Immature Grans (Abs) 0.0 {x10E3/uL} (Normal) Range: [...] (Normal) Range: 3.4-10.8 :25 HgA1C , Office (76754) HgA1C , Office 6.5 % (Normal) Range: 4.6 - 7.1 :25 Blood Glucose , Office (46395) Blood Glucose , Office 143 (Normal) :36 URINE LUKE CULTURE (BALDO Comments: PATIENT NOT FASTINGPERFORMED BY: LabCoOverlook Medical CenterQnyehu0465 [facility] [id number] Information: SRC:UR [id number] COL COUNT) (78438) Result 1 PROTMP (Abnormal) Comments: Proteus mirabilis/jitjcfe733 Colonies/mLBeta hemolytic Streptococcus, group B10,000-25,000 colony forming [...] S Urine Final report Culture,Comprehensi (Abnormal) ve 16-Qeg-91112:17 Urinalysis, Office (12079) UA - LEUKOCYTE ESTERASE Large (Normal) UA - NITRITE Positive (Normal) URINE UROBILINGN BALDO TIMED Normal mg/dL (Normal) UA - PROTEIN Trace mg/dL (Normal) UA - PH 6.5 (Normal) UA - BLOOD Negative (Normal) UA - SPECIFIC GRAVITY 1.025 (Normal) UA - KETONES Moderate mg/dL (Normal) UA - BILIRUBIN Negative (Normal) UA - GLUCOSE Negative (Normal) 42-Nst-692462:42 CBCD ALC 1.95 {X10_3/ul} (Normal) Range: 0.83-4.51 [...] 4.2-5.4 WBC 6.5 K/mm3 (Normal) Range: 4.4-11.0 40-Ztk-515269:42 CMP GAP 5 (Normal) Range: 5-15 CO2 [...] 126 mg/dLsuggests DIABETES MELLITUS per A.D.A. criteria. 61-Ndw-361959:09 LUKE CULTURE-OTHER (91506) Comments: PATIENT NOT FASTINGPERFORMED BY: eucl3DScheurer Hospital6370 [facility] [id number] Information: SRC:ROSALVA [id number] Result 1 BETAGG (Abnormal) Comments: Beta hemolytic [...] 2010) Upper Respiratory Culture Final report (Abnormal) 80-Cbg-70809:09 Rapid Strep Test, Office (54813) Rapid Strep Test, Office Negative (Normal) :12 MICROALBUMIN: CREATININE RATIO Comments: PATIENT WAS FASTINGPERFORMED BY: Gina Alexander DesignOverlook Medical CenterXifmgj0037 [facility] [id number] (85091) AND (93876) Microalb/Creat Ratio 6.3 {mg/g_creat} (Normal) Range: 0.0-30.0 Microalbumin, Urine 10.0 ug/mL (Normal) Range: 0.0-17.0 Creatinine, Urine 157.7 mg/dL (Normal) Range: 15.0-278.0 :12 CALCIFEDIOL (11599) Comments: PATIENT WAS FASTINGPERFORMED BY: eucl3DScheurer Hospital6370 [facility] [id number] Vitamin D, 25-Hydroxy 26.6 ng/mL (Abnormal) Range: 30.0-100.0 Comments: Vitamin D deficiency has been defined by the [place] and an Endocrine Society practice guideline as alevel of serum 25-OH vitamin D less than 20 ng/mL (1,2).The Endocrine Society went on to further define vitamin Dinsufficiency as a level between 21 and 29 ng/mL (2).1. IOM ([place]). 2010. Dietary reference intakes for calcium and D. [place]: The National Academies Press.2. Sara MF, Johanna NC, Rosanna SOMMER, et al. Evaluation, treatment, and prevention of vitamin D deficiency: an Endocrine Society clinical practice guideline. JCEM. 2010; 96(7):1911-30. :12 CBC with manual diff Comments: PATIENT WAS FASTINGPERFORMED BY: [facility]6370 [facility] [id number] Information: [id number] (50719) Immature Grans (Abs) 0.0 {x10E3/uL} (Normal) Range: [...] (THYROID STIMULATING Comments: PATIENT WAS FASTINGPERFORMED BY: [facility]6370 [facility] [id number] HORMONE) (28901) TSH 1.420 {uIU/mL} (Normal) Range: 0.450-4.500 :12 LIPID PANEL (69350) Comments: PATIENT WAS FASTINGPERFORMED BY: [facility]6370 [facility] [id number] LDL/HDL Ratio 2.4 {ratio_units} (Normal) Range: 0.0-3.2 [...] PANEL, COMPREHENSIVE Comments: PATIENT WAS FASTINGPERFORMED BY: [facility]6370 [facility] [id number] (87306) ALT (SGPT) 18 [iU]/L (Normal) Range: 0-32 [...] (Abnormal) Range: 65-99 :21 HgA1C , Office (91857) HgA1C , Office 6.1 % (Normal) Range: 4.6 - 7.1 :21 Blood Glucose , Office (87001) Blood Glucose , Office 153 (Normal) :54 [...] 4.2-5.4 WBC 6.1 K/mm3 (Normal) Range: 4.4-11.0 9-Rmq-505770:54 CMP GAP 7 (Normal) Range: 5-15 CO2 [...] 7-18 GLU 86 mg/dL (Normal) Range: 70-110 43-Dgm-789422:04 CBCD ANC 3.8 {X10_3/uL} (Normal) Range: 2.0-7.7 [...] 4.2-5.4 WBC 6.1 K/mm3 (Normal) Range: 4.4-11.0 03-Eug-184952:04 CMP CO2 29.0 mmol/L (Normal) Range: 21.0-32.0 [...] 7-18 GLU 90 mg/dL (Normal) Range: 70-110 5-Bcd-928930:49 Microscopic Examination Comments: PATIENT WAS FASTINGPERFORMED BY: [employer] [facility] [id number] Bacteria None seen (Normal) Mucus Threads Present (Normal) Epithelial Cells (non renal) 0-10 {/hpf} (Normal) Range: 0 - 10 RBC 0-3 {/hpf} (Normal) Range: 0 - 3 WBC 0-5 {/hpf} (Normal) Range: 0 - 5 :09 HgA1C , Office (80873) HgA1C , Office 6.2 % (Normal) Range: 4.6 - 7.1 :09 Blood Glucose , Office (47678) Blood Glucose , Office 152 (Normal) :12 LIPID PANEL (11559) Comments: PATIENT WAS FASTINGPERFORMED BY: [employer] [facility] [id number] LDL Cholesterol Calc 93 mg/dL (Normal) Range: 0-99 LDL/HDL Ratio 1.7 {ratio_units} (Normal) Range: 0.0-3.2 VLDL Cholesterol Huy 28 mg/dL (Normal) Range: 5-40 HDL Cholesterol 56 mg/dL (Normal) Comments: According to ATP-III Guidelines, HDL-C >59 mg/dL is considered anegative risk factor for CHD. Cholesterol, Total 177 mg/dL (Normal) Range: 100-199 Triglycerides 141 mg/dL (Normal) Range: 0-149 :12 TSH (68853) Comments: PATIENT WAS FASTINGPERFORMED BY: [employer] Fnxtdh3101 [facility] [id number] TSH 1.090 {uIU/mL} (Normal) Range: 0.450-4.500 :12 MICROALBUMIN: CREATININE RATIO Comments: PATIENT WAS FASTINGPERFORMED BY: Gina Alexander DesignOverlook Medical CenterNdvkzi9194 [facility] [id number] (19958) AND (38577) Microalb/Creat Ratio 4.4 {mg/g_creat} (Normal) Range: 0.0-30.0 Creatinine, Urine 110.3 mg/dL (Normal) Range: 15.0-278.0 Microalbumin, Urine 4.9 ug/mL (Normal) Range: 0.0-17.0 :12 URINALYSIS, W/ MICRO (89703) Comments: PATIENT WAS FASTINGPERFORMED BY: Gina Alexander DesignOverlook Medical CenterGidjou9234 [facility] [id number] Microscopic Examination See below: (Normal) Microscopic Examination MICRON (Normal) Comments: Microscopic follows if indicated. Nitrite, Urine Negative (Normal) Urobilinogen,Semi-Qn 0.2 mg/dL (Normal) Range: 0.0-1.9 Bilirubin Negative (Normal) Ketones Negative (Normal) Occult Blood Negative (Normal) Glucose Negative (Normal) Protein Negative (Normal) WBC Esterase Negative (Normal) Appearance Clear (Normal) Urine-Color Yellow (Normal) pH 7.0 (Normal) Range: 5.0-7.5 Specific [place] 1.021 (Normal) Range: 1.005-1.030 :12 METABOLIC PANEL, COMPREHENSIVE Comments: PATIENT WAS FASTINGPERFORMED BY: Gina Alexander DesignOverlook Medical CenterBeyznb6376 [facility] [id number] (40625) ALT (SGPT) 14 [iU]/L (Normal) Range: 0-32 [...] MANUAL DIFF Comments: PATIENT WAS FASTINGPERFORMED BY: [facility]6370 [facility] [id number] Information: [id number] (25798) Immature Grans (Abs) 0.0 {x10E3/uL} (Normal) Range: [...] (Normal) Range: 3.4-10.8 :20 HgA1C , Office (97926) HgA1C , Office 6.2 % (Normal) Range: 4.6 - 7.1 :20 Blood Glucose , Office (12224) Blood Glucose , Office 116 (Normal) :36 CULTURE, SPUTUM (27307) Comments: PATIENT NOT FASTINGPERFORMED BY: [employer] [facility] [id number] Information: SRC:[facility]ENTERC [id number] Result 1 RRF (Normal) Comments: Routine respiratory radha Lower Respiratory Culture Final report (Normal) :55 HgA1C , Office (18626) HgA1C , Office 6.2 % (Normal) Range: 4.6 - 7.1 :55 Blood Glucose , Office (69339) Blood Glucose , Office 188 (Normal) :28 LIPID PANEL (33707) Comments: PATIENT WAS FASTINGPERFORMED BY: Gina Alexander DesignShiprock-Northern [facility] Medical CenterbLcnjmk3851 [facility] [id number] Information: ADD [id number] AND DRAW FEE 99 6660 LDL/HDL Ratio 2.1 {ratio_units} (Normal) Range: 0.0-3.2 LDL Cholesterol Calc 104 mg/dL (Abnormal) Range: 0-99 VLDL Cholesterol Huy 32 mg/dL (Normal) Range: 5-40 HDL Cholesterol 49 mg/dL (Normal) Comments: According to ATP-III Guidelines, HDL-C >59 mg/dL is considered anegative risk factor for CHD. Triglycerides 159 mg/dL (Abnormal) Range: 0-149 Cholesterol, Total 185 mg/dL (Normal) Range: 100-199 44-Cqu-881971:06 HgA1C , Office (83600) HgA1C , Office 5.9 % (Normal) Range: 4.6 - 7.1 79-Yzv-948026:06 Blood Glucose , Office (82293) Blood Glucose , Office 94 (Normal) :48 TSH (52638) Comments: PATIENT WAS FASTINGPERFORMED BY: [employer]OUND[employer]70 [facility] [id number] TSH 1.110 {uIU/mL} (Normal) Range: 0.450-4.500 :48 URINALYSIS, W/ MICRO Comments: PATIENT WAS FASTINGPERFORMED BY: [employer] [address] [facility] [id number] Information: [id number] (43665) Microscopic Examination See below: (Normal) Microscopic Examination MICRON (Normal) Comments: Microscopic follows if indicated. Nitrite, Urine Negative (Normal) Urobilinogen,Semi-Qn 0.2 mg/dL (Normal) Range: 0.0-1.9 Bilirubin Negative (Normal) Occult Blood Negative (Normal) Ketones Negative (Normal) Glucose Negative (Normal) Protein Negative (Normal) WBC Esterase Negative (Normal) Appearance Clear (Normal) Urine-Color Yellow (Normal) pH 7.0 (Normal) Range: 5.0-7.5 Specific [place] 1.018 (Normal) Range: 1.005-1.030 :48 MICROALBUMIN: CREATININE RATIO Comments: PATIENT WAS FASTINGPERFORMED BY: [employer] Copvqz8407 [facility] [id number] (95793) AND (31103) Microalb/Creat Ratio 2.8 {mg/g_creat} (Normal) Range: 0.0-30.0 Microalbumin, Urine 2.8 ug/mL (Normal) Range: 0.0-17.0 Creatinine, Urine 100.6 mg/dL (Normal) Range: 15.0-278.0 :48 LIPID PANEL (82208) Comments: PATIENT WAS FASTINGPERFORMED BY: Gina Alexander DesignOverlook Medical CenterBvrwbb6821 [facility] [id number] LDL/HDL Ratio 1.9 {ratio_units} (Normal) Range: 0.0-3.2 [...] Microscopic Examination Comments: PATIENT WAS FASTINGPERFORMED BY: [employer] Gkarjh7994 [facility] [id number] Bacteria None seen (Normal) Epithelial Cells (non renal) 0-10 {/hpf} (Normal) Range: 0 - 10 RBC 0-3 {/hpf} (Normal) Range: 0 - 3 WBC 0-5 {/hpf} (Normal) Range: 0 - 5 :21 Blood Glucose , Office (87929) Blood Glucose , Office 127 (Normal) :21 HgA1C , Office (51658) HgA1C , Office 6.2 % (Normal) Range: 4.6 - 7.1 :45 HgA1C , Office (50013) HgA1C , Office 6.9 % (Normal) Range: 4.6 - 7.1 :45 Blood Glucose , Office (94123) Blood Glucose , Office 238 (Normal) :41 Microscopic Examination Comments: PATIENT WAS FASTINGPERFORMED BY: eucl3DScheurer Hospital6370 [facility] [id number] Bacteria None seen (Normal) Mucus Threads Present (Normal) Epithelial Cells (non renal) 0-10 {/hpf} (Normal) Range: 0 - 10 RBC 0-3 {/hpf} (Normal) Range: 0 - 3 WBC 0-5 {/hpf} (Normal) Range: 0 - 5 :41 TSH (82042) Comments: PATIENT WAS FASTINGPERFORMED BY: [facility]6370 [facility] [id number] TSH 1.290 {uIU/mL} (Normal) Range: 0.450-4.500 :41 URINALYSIS, W/ MICRO (47558) Comments: PATIENT WAS FASTINGPERFORMED BY: [place] 7763370 [facility] [id number] Microscopic Examination See below: (Normal) Nitrite, Urine Negative (Normal) Urobilinogen,Semi-Qn 0.2 mg/dL (Normal) Range: 0.0-1.9 Bilirubin Negative (Normal) Occult Blood Negative (Normal) Ketones Negative (Normal) Glucose Negative (Normal) Protein Negative (Normal) WBC Esterase 1+ (Abnormal) Appearance Clear (Normal) Urine-Color Yellow (Normal) pH 7.5 (Normal) Range: 5.0-7.5 Specific [place] 1.020 (Normal) Range: 1.005-1.030 :41 MICROALBUMIN: CREATININE RATIO Comments: PATIENT WAS FASTINGPERFORMED BY: [place] 7763370 [facility] [id number] (72441) AND (59240) Microalb/Creat Ratio 2.0 {mg/g_creat} (Normal) Range: 0.0-30.0 Microalbumin, Urine 2.4 ug/mL (Normal) Range: 0.0-17.0 Creatinine, Urine 119.8 mg/dL (Normal) Range: 15.0-278.0 :41 METABOLIC PANEL, COMPREHENSIVE Comments: PATIENT WAS FASTINGPERFORMED BY: [place] 7763370 [facility] [id number] (14571) ALT (SGPT) 19 [iU]/L (Normal) Range: 0-40 [...] mg/dL (Abnormal) Range: 65-99 :41 LIPID PANEL (19628) Comments: PATIENT WAS FASTINGPERFORMED BY: ODEC6370 [facility] [id number] LDL/HDL Ratio 1.8 {ratio_units} (Normal) Range: 0.0-3.2 [...] MANUAL DIFF Comments: PATIENT WAS FASTINGPERFORMED BY: Gina Alexander DesignOverlook Medical CenterDugmpe4133 [facility] [id number] Information: [id number] (83059) Immature Grans (Abs) 0.0 {x10E3/uL} (Normal) Range: [...] (Normal) Range: 4.0-10.5 :07 HgA1C , Office (14332) HgA1C , Office 6.4 % (Normal) Range: 4.6 - 7.1 :07 Blood Glucose , Office (72687) Blood Glucose , Office 223 (Normal) :01 HgA1C , Office (24120) HgA1C , Office 6.1 % (Normal) Range: 4.6 - 7.1 :01 Blood Glucose , Office (02520) Blood Glucose , Office 185 (Normal) :28 Hepatic Function Panel (7) Comments: PATIENT WAS FASTINGPERFORMED BY: Re[employer] Wdsxio1498 [facility] [id number] ALT (SGPT) 19 [iU]/L (Normal) Range: 0-40 AST (SGOT) 19 [iU]/L (Normal) Range: 0-40 Alkaline Phosphatase, S 78 [iU]/L (Normal) Range: 25-150 Bilirubin, Direct 0.12 mg/dL (Normal) Range: 0.00-0.40 Bilirubin, Total 0.3 mg/dL (Normal) Range: 0.0-1.2 Albumin, Serum 4.3 g/dL (Normal) Range: 3.5-5.5 Protein, Total, Serum 6.8 g/dL (Normal) Range: 6.0-8.5 :28 Lipid Panel With LDL/HDL Comments: PATIENT WAS FASTINGPERFORMED BY: [employer]capelin6370 [facility] [id number] Ratio LDL/HDL Ratio 1.6 {ratio_units} (Normal) Range: 0.0-3.2 LDL Cholesterol Calc 81 mg/dL (Normal) Range: 0-99 VLDL Cholesterol Huy 31 mg/dL (Normal) Range: 5-40 HDL Cholesterol 51 mg/dL (Normal) Comments: According to ATP-III Guidelines, HDL-C >59 mg/dL is considered anegative risk factor for CHD. Triglycerides 154 mg/dL (Abnormal) Range: 0-149 Cholesterol, Total 163 mg/dL (Normal) Range: 100-199 22-Rui-918115:27 SPINE, LUMBAR (ROUTINE) Radiology Report See Note [...] GERARDO PORTILLO MD :22 HgA1C , Office (92041) HgA1C , Office 6.1 % (Normal) Range: 4.6 - 7.1 :22 Blood Glucose , Office (36480) Blood Glucose , Office 140 (Normal) :19 URINALYSIS (48489) Comments: PATIENT WAS FASTINGPERFORMED BY: [facility]6370 [facility] [id number] Microscopic Examination MICRON (Normal) Comments: Microscopic follows if indicated. Nitrite, Urine Negative (Normal) Urobilinogen,Semi-Qn 0.2 mg/dL (Normal) Range: 0.0-1.9 Bilirubin Negative (Normal) Occult Blood Negative (Normal) Ketones Negative (Normal) Glucose Negative (Normal) Protein Negative (Normal) WBC Esterase Negative (Normal) Appearance Clear (Normal) Urine-Color Yellow (Normal) pH 7.0 (Normal) Range: 5.0-7.5 Specific [place] 1.016 (Normal) Range: 1.005-1.030 :19 MICROALBUMIN: CREATININE RATIO Comments: PATIENT WAS FASTINGPERFORMED BY: Gina Alexander DesignOverlook Medical CenterImeilc3546 [facility] [id number] ([id number]) AND (87517) Microalb/Creat Ratio 1.6 {mg/g_creat} (Normal) Range: 0.0-30.0 Microalbumin, Urine 1.9 ug/mL (Normal) Range: 0.0-17.0 Creatinine, Urine 120.1 mg/dL (Normal) Range: 15.0-278.0 :19 TSH (67465) Comments: PATIENT WAS FASTINGPERFORMED BY: Gina Alexander DesignOverlook Medical CenterJkgcio6989 [facility] [id number] TSH 1.310 {uIU/mL} (Normal) Range: 0.450-4.500 :19 Metabolic Panel, Comments: PATIENT WAS FASTINGPERFORMED BY: [facility]6370 [facility] [id number] Information: [id number] Comprehensive (57148) ALT (SGPT) 19 [iU]/L (Normal) Range: 0-40 [...] mg/dL (Abnormal) Range: 65-99 :19 Lipid Panel (63801) Comments: PATIENT WAS FASTINGPERFORMED BY: [facility] [id number] LDL/HDL Ratio 2.5 {ratio_units} (Normal) Range: 0.0-3.2 LDL Cholesterol Calc 121 mg/dL (Abnormal) Range: 0-99 VLDL Cholesterol Huy 28 mg/dL (Normal) Range: 5-40 HDL Cholesterol 48 mg/dL (Normal) Comments: According to ATP-III Guidelines, HDL-C >59 mg/dL is considered anegative risk factor for CHD. Triglycerides 142 mg/dL (Normal) Range: 0-149 Cholesterol, Total 197 mg/dL (Normal) Range: 100-199 :30 HgA1C , Office (60900) HgA1C , Office 6.5 % (Normal) Range: 4.6 - 7.1 :30 Blood Glucose , Office (52588) Blood Glucose , Office 154 (Normal) :12 Microscopic Examination Comments: PATIENT WAS FASTINGPERFORMED BY: GROUNDFLOOR70 [employer] [facility]iesCar[facility] [id number] Bacteria None seen (Normal) Mucus Threads Present (Normal) Epithelial Cells (non renal) 0-10 {/hpf} (Normal) Range: 0 - 10 RBC 0-3 {/hpf} (Normal) Range: 0 - 3 WBC 0-5 {/hpf} (Normal) Range: 0 - 5 :12 TSH (34971) Comments: PATIENT WAS FASTINGPERFORMED BY: [employer] [facility] [id number] TSH 1.260 {uIU/mL} (Normal) Range: 0.450-4.500 :12 URINALYSIS, W/ MICRO (01044) Comments: PATIENT WAS FASTINGPERFORMED BY: [employer] [facility] [id number] Microscopic Examination See below: (Normal) Bilirubin Negative (Normal) Microscopic Examination MICRON (Normal) Comments: Microscopic follows if indicated. Nitrite, Urine Negative (Normal) Occult Blood Negative (Normal) Urobilinogen,Semi-Qn 0.2 mg/dL (Normal) Range: 0.0-1.9 Glucose Negative (Normal) Ketones Negative (Normal) Protein Negative (Normal) Appearance Clear (Normal) pH 7.0 (Normal) Range: 5.0-7.5 Urine-Color Yellow (Normal) WBC Esterase Negative (Normal) Specific [place] 1.017 (Normal) Range: 1.005-1.030 :12 MICROALBUMIN: CREATININE RATIO Comments: PATIENT WAS FASTINGPERFORMED BY: [employer] [facility] [id number] ([id number]) AND (45587) Microalb/Creat Ratio 2.4 {mg/g_creat} (Normal) Range: 0.0-30.0 Microalbumin, Urine 3.2 ug/mL (Normal) Range: 0.0-17.0 Creatinine, Urine 134.3 mg/dL (Normal) Range: 15.0-278.0 :12 METABOLIC PANEL, COMPREHENSIVE Comments: PATIENT WAS FASTINGPERFORMED BY: [employer] [facility] [id number] ([id number]) Alkaline Phosphatase, S 67 [iU]/L (Normal) Range: [...] Glucose, Serum 125 mg/dL (Abnormal) Range: 65-99 58-Tog-98212:12 LIPID PANEL (38953) Comments: PATIENT WAS FASTINGPERFORMED BY: LabCoOverlook Medical CenterCgslna0180 [facility] [id number] LDL/HDL Ratio 2.3 {ratio_units} (Normal) Range: 0.0-3.2 HDL Cholesterol 47 mg/dL (Normal) Comments: According to ATP-III Guidelines, HDL-C >59 mg/dL is considered anegative risk factor for CHD. LDL Cholesterol Calc 107 mg/dL (Abnormal) Range: 0-99 VLDL Cholesterol Huy 20 mg/dL (Normal) Range: 5-40 Cholesterol, Total 174 mg/dL (Normal) Range: 100-199 Triglycerides 102 mg/dL (Normal) Range: 0-149 87-Oda-29166:12 CBC WITH MANUAL DIFF Comments: PATIENT WAS FASTINGPERFORMED BY: [facility]Scheurer Hospital6370 [facility] [id number] Information: [id number] (34897) Baso (Absolute) 0.0 {x10E3/uL} (Normal) Range: 0.0-0.2 [...] (Normal) Range: 4.0-10.5 :50 HgA1C , Office (01935) Comments: done km HgA1C , Office 6.1 % (Normal) Range: 4.6 - 7.1 :49 Blood Glucose , Office (83323) Comments: done km Blood Glucose , Office 127 (Normal) :19 HgA1C , Office (49220) Comments: done km HgA1C , Office 6.8 % (Normal) Range: 4.6 - 7.1 :19 Blood Glucose , Office (37660) Comments: done km Blood Glucose , Office 159 (Normal) :54 HEPATIC FUNCTION PANEL Comments: PATIENT WAS FASTINGPERFORMED BY: [facility] [id number] BY: GROUNDFLOOR70 [employer] [facility] [id number] ([id number]) ALT (SGPT) 25 [iU]/L (Normal) Range: 0-40 AST (SGOT) 25 [iU]/L (Normal) Range: 0-40 Alkaline Phosphatase, S 89 [iU]/L (Normal) Range: 25-150 Bilirubin, Direct 0.15 mg/dL (Normal) Range: 0.00-0.40 Albumin, Serum 4.6 g/dL (Normal) Range: 3.5-5.5 Bilirubin, Total 0.5 mg/dL (Normal) Range: 0.1-1.2 Protein, Total, Serum 7.2 g/dL (Normal) Range: 6.0-8.5 :54 LIPOPROTEIN, BLD, BY NMR Comments: PATIENT WAS FASTINGPERFORMED BY: [employer] [address] [id number] BY: HowbuyOverlook Medical CenterQytxag24[address] [place] [address] [id number] Information: [id number] ([id number]) HDL Size 8.3 nm (Abnormal) Comments: Small [...] 19.0 INSULIN RESISTANCE / DIABETES RISK Kerri REYEZLARARadha<--Insulin Sensitive Insulin Resistant-->Percentile in Reference PopulationLarge VLDL-P [...] 144 mg/dL (Normal) :21 HgA1C , Office (53922) Comments: done HgA1C , Office 6.1 % (Normal) Range: 4.6 - 7.1 :21 Blood Glucose , Office (20153) Comments: done Blood Glucose , Office 133 (Normal) :25 TSH (82883) Comments: PATIENT WAS FASTINGPERFORMED BY: LabCoOverlook Medical CenterLqoumw6398 [facility] [id number] TSH 1.010 {uIU/mL} (Normal) Range: 0.450-4.500 :25 MICROALBUMIN: CREATININE RATIO Comments: PATIENT WAS FASTINGPERFORMED BY: LabCoOverlook Medical CenterYrjfiw9511 [facility] [id number] (17686) AND (72614) Creatinine, Urine 79.8 mg/dL (Normal) Range: 15.0-278.0 Microalb/Creat Ratio 1.6 {mg/g_creat} (Normal) Range: 0.0-30.0 Microalbumin, Urine 1.3 ug/mL (Normal) Range: 0.0-17.0 47-Kel-01795:25 METABOLIC PANEL, COMPREHENSIVE Comments: PATIENT WAS FASTINGPERFORMED BY: LabCo Qthien1213 [facility] [id number] (23290) A/G Ratio 1.6 (Normal) Range: 1.1-2.5 Albumin, [...] Glucose, Serum 127 mg/dL (Abnormal) Range: 65-99 50-Vaq-30139:25 LIPOPROTEIN, BLD, BY NMR Comments: PATIENT WAS FASTINGClinical Information: [id number] PERFORMED BY: [employer]6370 [facility] [id number] (87103) Cholesterol, Total 197 mg/dL (Normal) HDL-C 48 [...] > 1200 . Triglycerides 107 mg/dL (Normal) 16-Zku-62414:25 CBC WITH MANUAL DIFF (07229) Comments: PATIENT WAS FASTINGPERFORMED BY: [employer]odlin6370 [facility] [id number] Baso (Absolute) 0.1 {x10E3/uL} (Normal) Range: 0.0-0.2 [...] (Normal) Range: 4.0-10.5 :02 HgA1C , Office (23674) Comments: done HgA1C , Office 5.9 % (Normal) Range: 4.6 - 7.1 :02 Blood Glucose , Office (10311) Comments: done Blood Glucose , Office 131 (Normal) 51-Whd-027470:26 Blood Glucose , Office (14727) Comments: done Blood Glucose , Office 80 (Normal) 10-Mve-070156:26 HgA1C , Office (90475) Comments: done HgA1C , Office 5.7 % (Normal) Range: 4.6 - 7.1 35-Gqo-138587:18 Rapid Strep Test, Office (88989) Rapid Strep Test, Office Negative (Normal) :35 URINALYSIS W/O MICRO (90269) Comments: PATIENT WAS FASTINGPERFORMED BY: LabCoOverlook Medical CenterMukefv4067 [facility] [id number] Appearance Clear (Normal) Bilirubin Negative (Normal) Glucose Negative (Normal) Ketones Negative (Normal) Microscopic Examination MICRON (Normal) Comments: Microscopic follows if indicated. Nitrite, Urine Negative (Normal) Occult Blood Negative (Normal) pH 6.5 (Normal) Range: 5.0-7.5 Protein Negative (Normal) Specific [place] 1.022 (Normal) Range: 1.005-1.030 Urine-Color Yellow (Normal) Urobilinogen,Semi-Qn 0.2 mg/dL (Normal) Range: 0.0-1.9 WBC Esterase Negative (Normal) :35 MICROALBUMIN: CREATININE RATIO Comments: PATIENT WAS FASTINGPERFORMED BY: Gina Alexander DesignOverlook Medical CenterVxifvk5117 [facility] [id number] (14321) AND (95279) Microalbum.,U,Random 1.6 ug/mL (Normal) Range: 0.0-17.0 :35 METABOLIC PANEL, COMPREHENSIVE Comments: PATIENT WAS FASTINGPERFORMED BY: Gina Alexander DesignOverlook Medical CenterRnhbem8161 [facility] [id number] (47393) A/G Ratio 1.7 (Normal) Range: 1.1-2.5 Albumin, [...] on 'Glom Filt Rate, Est' and 'If -Japanese' will be changing to >59 mL/min/1.73. Glucose, Serum 123 mg/dL (Abnormal) Range: 65-99 If -Japanese >60 mL/min (Normal) Range: 60-128 Comments: Note: [...] Sodium, Serum 137 mmol/L (Normal) Range: 135-145 41-Qhm-06047:35 CBC WITH MANUAL DIFF (30181) Comments: PATIENT WAS FASTINGClinical Information: ADD DRAW FEE [id number] ADD J 80664 PERFORMED BY: LabCoOverlook Medical CenterGdonjl6084 [facility] [id number] Baso (Absolute) 0.1 {x10E3/uL} (Normal) Range: 0.0-0.2 [...] {x10E3/uL} (Normal) Range: 4.0-10.5 :35 LIPID PANEL (10835) Comments: PATIENT WAS FASTINGPERFORMED BY: [facility]6370 [facility] [id number] Cholesterol, Total 182 mg/dL (Normal) Range: 100-199 Comment SPRCS (Normal) Comments: If initial LDL-cholesterol result is >100 mg/dL, assess forrisk factors. HDL Cholesterol 44 mg/dL (Normal) Range: 40-59 LDL Cholesterol Calc 117 mg/dL (Abnormal) Range: 0-99 LDL/HDL Ratio 2.7 {ratio_units} (Normal) Range: 0.0-3.2 Triglycerides 106 mg/dL (Normal) Range: 0-149 VLDL Cholesterol Huy 21 mg/dL (Normal) Range: 5-40 :03 HgA1C , Office (24445) Comments: done HgA1C , Office 5.7 % (Normal) Range: 4.6 - 7.1 :03 Blood Glucose , Office (45972) Comments: done Blood Glucose , Office 141 (Normal) :07 HgA1C , Office (15184) Comments: done HgA1C , Office 5.7 % (Normal) Range: 4.6 - 7.1 :07 Blood Glucose , Office (24827) Comments: done Blood Glucose , Office 143 [...] {uIU/mL} (Normal) Range: 0.34-4.82 :41 Urinalysis, Office (40658) UA - BILIRUBIN Negative (Normal) UA - BLOOD Hemolyzed Small (Normal) UA - GLUCOSE Negative (Normal) UA - KETONES Negative mg/dL (Normal) UA - LEUKOCYTE ESTERASE Negative (Normal) UA - NITRITE Negative (Normal) UA - PH 6.0 (Normal) UA - PROTEIN Negative mg/dL (Normal) UA - SPECIFIC GRAVITY 1.025 (Normal) URINE UROBILINGN BALDO TIMED Normal mg/dL (Normal) 59-Urf-009430:30 COMPLETE UA BACTERIA RARE {/hpf} (Normal) BILIRUBIN [...] Result: 0-5 SEEN :26 HgA1C , Office (85661) Comments: done HgA1C , Office 5.5 % (Normal) Range: 4.6 - 7.1 :26 Blood Glucose , Office (86040) Comments: done Blood Glucose , Office 123 (Normal) 82-Xfw-611322:55 LUKE CULTURE-OTHER (87386) 43-Hem-201293:51 Upper Respiratory Culture Comments: Clinical Information: SRC: ADD [id number] PERFORMED BY: LabCoOverlook Medical CenterBswcwv6576 [facility] [id number] Result 1 RRF (Normal) Comments: Routine respiratory radha Upper Respiratory Culture Final report (Normal) 34-Cnx-534578:23 Rapid Strep Test, Office (08674) Comments: done Rapid Strep Test, Office Negative [...] (Normal) Range: 0.34-4.82 :06 HgA1C , Office (34610) Comments: done km HgA1C , Office 5.2 % (Normal) Range: 4.6 - 7.1 :06 Blood Glucose , Office (19847) Comments: done Blood Glucose , Office 102 (Normal) :44 HgA1C , Office (95840) HgA1C , Office 5.5 % (Normal) Range: 4.6 - 7.1 :50 GLUP 210 mg/dL (Abnormal) Comments: GLU,2HPPG 75gm GLUC PPG GLUP from 0611:[id number]. Comments: Glucose result greater than or equal [...] ductal carcinoma of breast, left : Reviewed Tester Electronic Scale Letter Indication: Invasive ductal carcinoma of breast, [...] mgmt Indication: Hyperlipidemia Psoriatic arthritis : Reviewed Tester Electronic Scale Letter Indication: Psoriatic arthritis Diabetes mellitus type [...] Indication: Chest pain Chest pain : Reviewed Tester Electronic Scale Letter Indication: Chest pain Chest pain : [...] diabetes mellitus POLYARTHROPATHY, INFLAMMATORY NOS : Reviewed Tester Electronic Scale Letter Indication: POLYARTHROPATHY, INFLAMMATORY NOS Hyperlipidemia : [...] Indication: Hyperlipidemia POLYARTHROPATHY, INFLAMMATORY NOS : Reviewed Tester Electronic Scale Letter Indication: POLYARTHROPATHY, INFLAMMATORY NOS Controlled diabetes [...] GERD (gastroesophageal reflux disease) Planned Observations CALCIFIDIOL (98278) VIT D 25Indication: Vitamin D deficiency On: :50 Request TSH (76474)Indication: Diabetes mellitus type 2, uncontrolled, without complications On: :50 Request URINALYSIS, W/ MICRO (65124)Indication: Diabetes mellitus type 2, uncontrolled, without complications On: :49 Request MICROALBUMIN: CREATININE RATIO (38288) AND (00785)Indication: Diabetes mellitus type 2, uncontrolled, without complications On: :49 Request METABOLIC PANEL, COMPREHENSIVE (38625)Indication: Diabetes mellitus type 2, uncontrolled, without complications On: :49 Request LIPID PANEL (36038)Indication: Diabetes mellitus type 2, uncontrolled, without complications On: :49 Request CBC W/AUTO DIFF WBC (28724)Indication: Diabetes mellitus type 2, uncontrolled, without complications On: 06-Uju-39802:49 Request URINALYSIS, W/ MICRO (20046)Indication: Diabetes mellitus type 2, uncontrolled, without complications On: 72-Zdl-20559:00 Request Blood Glucose , Office (02540)Indication: Diabetes mellitus type 2, uncontrolled, without complications On: 10-Ewh-893069:11 Request Influenza A&B Viral Culture (98478)Indication: Body aches On: 64-Iot-50538:55 Request FECAL OCCULT- Tubes sent home (49029)Indication: Encounter for screening for malignant neoplasm of colon (Renamed from Special screening for malignant neoplasms, colon) On: 28-Vkn-09869:34 Request Throat Culture (41969)Indication: ACUTE PHARYNGITIS (462.) On: :06 Request HEPATIC FUNCTION PANEL (16915)Indication: Hyperlipidemia On: :17 Request LIPID PANEL (31808)Indication: Hyperlipidemia On: :17 Request Rapid Strep Test, Office (29273)Indication: ACUTE PHARYNGITIS (462.) On: 29-Bup-193414:04 Request METABOLIC PANEL, COMPREHENSIVE (22686)Indication: Controlled diabetes mellitus On: 13-Evi-61647:48 Request CBC WITH MANUAL DIFF (84584)Indication: Controlled diabetes mellitus On: :48 Request LIPID PANEL (24837)Indication: Hyperlipidemia On: 08-Ypp-55608:45 Request LIPID PANEL (91846)Indication: Hyperlipidemia On: :34 Request LIPID PANEL (73163)Indication: Controlled diabetes mellitus On: :23 Request TSH (27294)Indication: Controlled diabetes mellitus On: 37-Tol-223450:00 Request MICROALBUMIN: CREATININE RATIO (62021) AND (60614)Indication: Controlled diabetes mellitus On: 31-Qzy-788424:00 Request METABOLIC PANEL, COMPREHENSIVE (06898)Indication: Controlled diabetes mellitus On: :00 Request LIPID PANEL (57604)Indication: Controlled diabetes mellitus On: 61-Dyt-212642:00 Request CBC WITH MANUAL DIFF (00932)Indication: Controlled diabetes mellitus On: 35-Jnp-630060:00 Request URINALYSIS W MICROSCOPY (48623)Indication: Cystitis, acute On: 52-Avw-721493:58 Request URINALYSIS W/O MICRO (35932)Indication: Controlled diabetes mellitus On: :26 Request TSH (89603)Indication: Controlled diabetes mellitus On: :26 Request METABOLIC PANEL, COMPREHENSIVE (16643)Indication: Controlled diabetes mellitus On: :26 Request MICROALBUMIN URINE QUANT (74879)Indication: Controlled diabetes mellitus On: :26 Request LIPID PANEL (53880)Indication: Controlled diabetes mellitus On: :26 Request CBC WITH MANUAL DIFF (30233)Indication: Controlled diabetes mellitus On: :26 Request LUKE CULTURE-OTHER (87026)Indication: Throat pain On: 44-Xzz-177219:55 Request TSH (26732)Indication: Controlled diabetes mellitus On: 61-Dlw-02564:14 Request LIPID PANEL (98335)Indication: Controlled diabetes mellitus On: :14 Request MICROALBUMIN URINE QUANT (76653)Indication: Controlled diabetes mellitus On: 42-Umx-44143:14 Request LIPID PANEL (44961)Indication: Family history of diabetes mellitus On: 50-Hhv-143560:10 Request Glucose, PP/2 Hour (54759)Indication: Family history of diabetes mellitus On: :10 Request Planned Encounters Medical; 3 Month FU - On: 27-Dec-2017 7:15 [facility] Ruth Jones DO, DO, Kathleen Planned Procedures Holter Monitor 24 hrsBy: Karen SINGH, On: 22-Feb-2017 Intent Ruth Ibarra DO Comments: maryam to read ELECTROCARDIOGRAM, COMPLETE (ECG) On: 22-Feb-2017 Intent (09685)By: Ruth Jones DO Comments: nsr no acute chg Ruth Jones DO ELECTROCARDIOGRAM, COMPLETE (ECG) On: 07-Jul-2016 Intent (32998)By: Ruth Jones DO Comments: nsr no acute chg Ruth Jones DO Spirometry (79854)By: Karen SINGH, On: 02-Mar-2016 Intent Ruth Ibarra DO Comments: normal Aerosol Treatment (10309)By: Slarb On: 28-Feb-2016 Intent Trinh GONZALEZ EKG (02873)By: Ruth Jones DO On: 21-Aug-2014 Intent Ruth Jones DO Comments: sinus carroll no acute chg SPECIMEN HNDLNG/TRNSPRT, OFFC > LAB On: 24-Feb-2014 Intent (15200)By: Jaquelin Shore CNP Flu Vaccine (Quadrivalent) 80213Ow: On: 18-Dec-2013 Intent Ruth Jones DO, DO, Comments: Lot:[id number]:0.5mlRoute:IMSite: L DltdGiven By: KENYATTA Marsh signed Ruth ADMINISTRATION OF INFLUENZA VIRUS On: 18-Dec-2013 Intent VACCINE (G0008)By: Ruth Jones DO, DO, Kathleen Ear Irrigation (75724)By: Silviano On: 06-Oct-2013 Jaquelin Bejarano CNP Comments: addendum to 10/06/13 OVEar Irrigation performed on:left earAmount/color removed cerumen:dark brown, large amountOUtcome:clearUsed wax curettes Wax CurettesBy: Jaquelin Shore CNP On: 06-Oct-2013 Intent Ear Irrigation (48905)By: Silviano On: 06-Oct-2013 Intent Jaquelin FRANKEL Eprescribed prescriptions (G8553)By: On: 20-Jun-2013 Intent Ruth Jones DO, DO, Kathleen EKG (40122)By: Ruth Jones DO On: 20-Jun-2013 Intent Ruth Jones DO Comments: nsr no acute chg Eprescribed prescriptions (G8553)By: On: 28-Mar-2013 Intent Ruth Jones DO, DO, Kathleen Aerosol Treatment (94584)By: On: 17-Feb-2013 Intent Natalie Covington Eprescribed prescriptions (G8553)By: On: 17-Feb-2013 Intent Natalie Covington Ultrasound - Abdomen CompleteBy: On: 16-Jan-2013 Intent Ruth Jones DO, DO, Kathleen FLU VAC, SPLIT, >3 YEARS, INTRAMUSC On: 16-Jan-2013 Intent (04670)By: Karla Santana LPN Comments: Lot:[id number]:6.14Amt:0.5mlRoute:IMSite: L DltdGiven By: LISA MarshVIS signed IMMUNIZ ADMNIN, 1 VAC, SNGL/COMBO On: 16-Jan-2013 Intent (66223)By: Karla Santana LPN Aerosol Treatment (52349)By: Ciesa On: 28-Oct-2012 Intent Jaquelin FRANKEL Eprescribed prescriptions (G8553)By: On: 28-Oct-2012 Intent Natalie Covington EKG (63552)By: Ruth Jones DO On: 24-May-2012 Intent Ruth Jones DO Eprescribed prescriptions (G8553)By: On: 24-May-2012 Intent Karla Santana LPN Eprescribed prescriptions (G8553)By: On: 11-Jan-2012 Intent Karla Santana LPN Eprescribed prescriptions (G8553)By: On: 01-Dec-2011 Intent Karla Santana LPN PNEUM VAC ADLT/IMUMNOSPR, SBC/INTRM On: 08-Sep-2011 Intent (53069)By: Ruth Jones DO Comments: Lot #[id number]/12Site-left deltoidDose- 0.5mlgiven by: LISA Soni DO, Kathleen IMMUNIZ ADMNIN, 1 VAC, SNGL/COMBO On: 08-Sep-2011 Intent (58957)By: Ruth Jones DO, DO, Kathleen EKG (73766)By: Ruth Jones DO On: 17-Mar-2011 Intent Ruth Jones DO Comments: nsr no acute changes MRI - Lumbar SpineBy: Karen SINGH, On: 22-Dec-2010 Intent Ruth Ibarra DO FLU VAC, SPLIT, >3 YEARS, INTRAMUSC On: 09-Dec-2010 Intent (62159)By: Gabriella Dey LPN Comments: had done at work in early November IMMUNIZ ADMNIN, 1 VAC, SNGL/COMBO On: 09-Dec-2010 Intent (08748)By: Gabriella Dey LPN EKG (76417)By: Ruth Jones DO On: 29-Apr-2010 Intent Ruth Jones DO Comments: nsr no acute ishcemic changes Aerosol Treatment (51160)By: Silviano On: 19-May-2009 Intent MARLYS Jaquelin Smith EKG (63269)By: Ruth Jones DO On: 18-Dec-2008 Intent Ruth Jones DO Comments: nsr no acute ischemic changes TDAP VACCINE >7 IM (95980)By: Karen On: 26-Jun-2008 Intent uRth SINGH DO, Kathleen Comments: Lot #: [id number] date: mount given:0.5 mlRoute: IMSite given: Right deltoidGiven by: Jonathan Woodruff LPN Pulse Oximetry (66831)By: Silviano FRANKEL, On: 04-Feb-2008 Intent Rossy Aerosol Treatment (32608)By: Silviano On: 04-Feb-2008 Intent MARLYS Jaquelin Smith EKG (87509)By: Ruth Jones DO On: 04-Oct-2007 Intent Ruth Jones DO Comments: nsr no acute ischemic changes Ear Irrigation (89047)By: Karen On: 01-Jan-2007 Ruth Bejarano DO, DO, Kathleen Comments: LEFT --KEISHA WELL EKG (52369)By: Ruth Jones DO On: 03-Aug-2006 Intent Ruth [...] REASON] Follow up tests - Date: (December Dr Otto labs and shoulder). Encounter Diagnosis: [...] mammography (2006) and screening, visual acuity (2004 [facility]). Encounter Diagnosis: Gerd (530.81), Headache, tension (307.81), Headache,Migraine (346.00), Family history of diabetes mellitus (V18.0) [facility] Payers Jessie MACE/Mela Rodriguez; a guarantor
--- OUTSIDE RECORDS SUMMARY | 2018-05-05 21:14 | XMS RPT_ITS ---
:1955 Author Organization [place] Support Name Relationship Address Phone NILES RODRIGUEZ [address] + [place] [address] HANK, KJ Family Member Unavailable + HOSPICE Unknown [address] + [place] [address] ADUDDELNILES Dougherty [address] + [place] [address] HANK, KJ Family Member Unavailable + HOSPICE Unknown [address] + [place] [address] ADUDDELNILES Dougherty [address] + [place] [address] HANK, KJ Family Member Unavailable + HOSPICE Unknown [address] + [place] [address] ADUDDELLNILES [address] + [place] [address] HANK, KJ Family Member Unavailable + HOSPICE Unknown [address] + [place] [address] ADUDDELNILES Dougherty [address] + [place] [address] HANK, KJ Family Member Unavailable + HOSPICE Unknown [address] + [place] [address] ADUD[address]ES [address] + [place] [address] HANK, KJ Family Member Unavailable + HOSPICE Unknown [address] + [place] [address] [address]ES [address] + [place] [address] HANK, KJ Family Member Unavailable + HOSPICE Unknown [address] + [place] [address] ADUDDELNILES Dougherty [address] + [place] [address] HANK, KJ Family Member Unavailable + HOSPICE Unknown [address] + [place] [address] ADUDDELNILES Dougherty [address] + [place] [address] HANK, KJ Family Member Unavailable + HOSPICE Unknown [address] + [place] [address] ADUDDELNILES Dougherty [address] + [place] [address] HANK, KJ Family Member Unavailable + HOSPICE Unknown [address] + [place] [address] ADUDDELNILES Dougherty [address] + [place] [address] HANK, KJ Family Member Unavailable + HOSPICE Unknown [address] + [place] [address] ADUDDELNILES Dougherty [address] + [place] [address] HANK, KJ Family Member Unavailable + HOSPICE Unknown [address] + [place] [address] ADUDDELNILES Dougherty [address] + [place] [address] HANK, KJ Family Member Unavailable + HOSPICE Unknown [address] + [place] [address] ADUDDELNILES Dougherty [address] [phone] [place] [address] HANK, KJ Family Member [address] [phone] [place] [address] H[address]PICE Unknown [address] + [place] [address] ADUDDELL, NILES [address] [phone] [place] [address] HANK, KJ Family Member [address] [phone] [place] [address] HOSPICE Unknown [address] + [place] [address] ADUDDELL, NILES [address] [phone] [place] [address] HANK, KJ Family Member [address] [phone] [place] [address] H[address]PICE Unknown [address] + [place] [address] ADUDDELL, NILES [address] [phone] [place] [address] HANK, KJ Family Member [address] [phone] [place] [address] [address]ICE Unknown [address] + [place] [address] Care Team Providers Name Role Elizabeth BaltazarFriedash Admitting Unavailable SouravelfShantel pineda Attending Unavailable Ruth Clark Primary Care Unavailable Paul England Consulting Unavailable Judith, Ghasebhakti Consulting Unavailable Ruth Clark Primary Care Unavailable Watson Marie Admitting Unavailable Paul England Consulting Unavailable Jayce Orourke Attending Unavailable Hodan Chong Consulting Unavailable Watson Marie Admitting Unavailable Watson Marie Attending Unavailable Ruth Clark Primary Care Unavailable Watson Marie Consulting Unavailable Watson Marie Admitting Unavailable Watson Marie Attending Unavailable Ruth Clark Primary Care Unavailable Pual England Consulting Unavailable Watson Marie Consulting Unavailable Watson Marie Admitting Unavailable Watson Marie Attending Unavailable Ruth Clark Primary Care Unavailable Paul England Consulting Unavailable Watson Marie Consulting Unavailable Watson Marie Admitting Unavailable Jayce Orourke Attending Unavailable Eduardo, Ruth Primary Care Unavailable Tyrell, Paul Consulting Unavailable Jayce Orourke Consulting Unavailable Watson Marie Admitting Unavailable Jayce Orourke Attending Unavailable Eduardo, Ruth Primary Care Unavailable Tyrell, Paul Consulting Unavailable Chong, Hodan Consulting Unavailable Jayce Orourke Consulting Unavailable Eduardo, Ruth Primary Care Unavailable Hodan Chong Attending Unavailable Castillo, Hodan Referring Unavailable Hodan Chong Attending Unavailable Chong, Hodan Referring Unavailable Eduardo, Ruth Primary Care Unavailable Chong, Hodan Admitting Unavailable ChongHodan Attending Unavailable Eduardo, Ruth Primary Care Unavailable Chong, Hodan Referring Unavailable Bishop Hassan Attending Unavailable Chong, Hodan Referring Unavailable Katie Aleman Attending Unavailable Eduardo, Ruth Primary Care Unavailable Eduardo, Ruth Primary Care Unavailable Ritchie Mota Attending Unavailable Eduardo, Ruth Primary Care Unavailable Giovanny, Bautista Admitting Unavailable Ashelfah, Ghasem Attending Unavailable Tyrell Paul Consulting Unavailable Giovanny, Bautista Admitting Unavailable Giovanny, Bautista Attending Unavailable Eduardo, Ruth Primary Care Unavailable Giovanny, Bautista Consulting Unavailable Giovanny, Bautista Admitting Unavailable Ashelfah, Ghasem Attending Unavailable Eduardo, Ruth Primary Care Unavailable Ashelfah, Ghasem Consulting Unavailable Giovanny, Bautista Admitting Unavailable Ashelfah, Ghasem Attending Unavailable Eduardo, Ruth Primary Care Unavailable Tyrell Paul Consulting Unavailable Ashelfah, Ghasem Consulting Unavailable FUNEZIDRE Referring Unavailable NETALITA LANERE Referring Unavailable BALAJI HESTER (TRAINS DISPATCHER SUPERVISOR) Referring Unavailable HODAN CHONG Attending Unavailable CARYN DUMONT Referring Unavailable HODAN CHONG Attending Unavailable HODAN CHONG Referring Unavailable HODAN CHONG Referring Unavailable HODAN CHONG Attending Unavailable YARELI URIARTE (PA) Attending Unavailable HODAN CHONG Referring Unavailable HODAN CHONG Attending Unavailable HODAN CHONG Referring Unavailable HARPREET PANTOJA Attending Unavailable HODAN CHONG Referring Unavailable HODAN CHONG Attending Unavailable HODAN CHONG Referring Unavailable HODAN CHONG Referring Unavailable CHONG, HODAN FARMER Referring Unavailable MASCI, HARPREET A Referring Unavailable MASCI, HARPREET A Referring Unavailable MASCI, HARPREET A Referring Unavailable MASCI, HARPREET A Referring Unavailable MASCI, HARPREET A Referring Unavailable MASCI, HARPREET A Referring Unavailable YARELI URIARTE (PA) Attending Unavailable CHONG, HODAN FARMER Referring Unavailable MASCI, HARPREET Jonathan Referring Unavailable DAVID, BONITA Attending Unavailable MASCI, HARPREET A Referring Unavailable CHONG, HODAN FARMER Attending Unavailable LOVE, LAPMAN Referring Unavailable CHONG, HODAN FARMER Attending Unavailable EDUARDO, RUTH WIGGINS Referring Unavailable CHONG, HODAN FARMER Attending Unavailable EDUARDO, RUTH WIGGINS Referring Unavailable RIA DEE (FORGING MACHINE OPERATOR) Attending Unavailable MASCI, HARPREET A Referring Unavailable CHONG, HODAN FARMER Attending Unavailable EDUARDO, RUTH WIGGINS Referring Unavailable MASCI, HARPREET A Referring Unavailable MASCI, HARPREET A Referring Unavailable MASCI, HARPREET A Referring Unavailable MASCI, HARPREET A Referring Unavailable MASCI, HARPREET A Attending Unavailable MASCI, HARPREET A Referring Unavailable MASCI, HARPREET A Referring Unavailable MASCI, HARPREET A Referring Unavailable MASCI, HARPREET A Referring Unavailable MASCI, HARPREET A Attending Unavailable MASCI, HARPREET A Referring Unavailable MASCI, HARPREET A Referring Unavailable MASCI, HARPREET A Referring Unavailable MASCI, HARPREET A Referring Unavailable MASCI, HARPREET A Attending Unavailable MASCI, HARPREET A Referring Unavailable MASCI, HARPREET A Referring Unavailable MASCI, HARPREET A Referring Unavailable MASCI, HARRPEET A Referring Unavailable LOVE, KATIE Attending Unavailable MASCI, HARPREET A Referring Unavailable LOVE, KATIE Referring Unavailable MASCI, HARPREET A Referring Unavailable MASCI, HARPREET A Referring Unavailable MASCI, HARPREET A Referring Unavailable MASCI, HARPREET A Referring Unavailable MASCI, HARPREET A Referring Unavailable MASCI, HARPREET A Referring Unavailable MASCI, HARPREET A Referring Unavailable MASCI, HARPREET A Referring Unavailable MASCI, HARPREET A Attending Unavailable MASCI, HARPREET A Referring Unavailable MASCI, HARPREET A Referring Unavailable MASCI, HARPREET A Referring Unavailable MASCI, HARPREET A Referring Unavailable MASCI, HARPREET A Referring Unavailable MASCI, HARPREET A Referring Unavailable MASCI, HARPREET A Referring Unavailable MASCI, HARPREET A Referring Unavailable MASCI, HARPREET A Referring Unavailable MASCI, HARPREET A Referring Unavailable MASCI, HARPREET A Referring Unavailable MASCI, HARPREET A Attending Unavailable MASCI, HARPREET A Referring Unavailable MASCI, HARPREET A Referring Unavailable MASCI, HARPREET A Referring Unavailable DAVID, DAKAILEY Attending Unavailable MASCI, HARPREET A Referring Unavailable MASCI, HARPREET A Referring Unavailable MASCI, HARPREET A Referring Unavailable MASCI, HARPREET A Referring Unavailable MASCI, HARPREET A Referring Unavailable MASCI, HARPREET A Referring Unavailable MASCI, HARPREET A Referring Unavailable MASCI, HARPREET A Referring Unavailable MASCI, HARPREET A Referring Unavailable MASCI, HARPREET A Referring Unavailable MASCI, HARPREET A Referring Unavailable MASCI, HARPREET A Attending Unavailable MASCI, HARPREET A Referring Unavailable MASCI, HARPREET A Referring Unavailable MASCI, HARPREET A Referring Unavailable DEE, RIA (FORGING MACHINE OPERATOR) Attending Unavailable MASCI, HARPREET A Referring Unavailable MASCI, HARPREET A Referring Unavailable CHONG, HODAN FARMER Attending Unavailable MASCI, HARPREET A Referring Unavailable DAVID, DAESUNG Attending Unavailable DAVID, DAESUNG Referring Unavailable DAVID, DAESUNG Attending Unavailable DAVID, DAESUNG Referring Unavailable BALAGAMWALA, DIONI Diamond Attending Unavailable DIMAS, BRANDYN OSUNA Attending Unavailable DAVID, DAANUPUNG Attending Unavailable DEE, RIA (FORGING MACHINE OPERATOR) Referring Unavailable DEE, RIA (FORGING MACHINE OPERATOR) Referring Unavailable MASCI, HARPREET A Referring Unavailable DAVID, DAANUPUNG Attending Unavailable DEE, RIA (FORGING MACHINE OPERATOR) Referring Unavailable MASCI, HARPREET Jonathan Attending Unavailable DEE, RIA (FORGING MACHINE OPERATOR) Referring Unavailable DAVID, DAESUNG Attending Unavailable DAVID, DAESUNG Attending Unavailable DAVID, DAESUNG Attending Unavailable LOVE, LAPMAN Referring Unavailable LOVE, LAPMAN Attending Unavailable DAVID, DAESUNG Attending Unavailable DEE, RIA (FORGING MACHINE OPERATOR) Attending Unavailable LOVE, LAPMAN Referring Unavailable DAVID, DAESUNG Attending Unavailable LEMON, EMILIE (PT) Attending Unavailable DAVID, DAESUNG Referring Unavailable DAVID, DAESUNG Attending Unavailable MASCI, HARPREET A Attending Unavailable DEE, RIA (FORGING MACHINE OPERATOR) Referring Unavailable MASCI, HARPREET A Referring Unavailable DAVID, DAESUNG Attending Unavailable DAVID, DAESUNG Referring Unavailable MASCI, HARPREET A Attending Unavailable DEE, RIA (FORGING MACHINE OPERATOR) Referring Unavailable MASCI, HARPREET A Referring Unavailable MASCI, HARPREET A Referring Unavailable MASCI, HARPREET A Attending Unavailable DEE, RIA (FORGING MACHINE OPERATOR) Referring Unavailable DEE, RIA (FORGING MACHINE OPERATOR) Attending Unavailable MASCI, HARPREET A Referring Unavailable Eduardo DO, Ruth Attending Unavailable Eduardo DO, Ruth Referring Unavailable Eduardo DO, Ruth Consulting Unavailable Purpose Purpose PROBLEMS PROBLEMS DATE TYPE CONDITION / CODE ATTENDING STATUS SOURCE 12/21/2017 Active Fever, unspecified / NA Active [facility] R50.9(ICD-10) [facility] Main [place] Repository 11/01/2017 Active Nontoxic goiter, NA Active [facility] unspecified / Clinic Main E04.9(ICD-10) [place] Repository 05/07/2017 Active Malignant neoplasm NA Active [facility] Main quadrant of left [place] female breast / Repository C50.412(ICD-10) 05/07/2017 Active Malignant neoplasm NA Active [facility] Main quadrant of right [place] female breast / Repository C50.411(ICD-10) 05/24/2017 Unknown Z98.890 - Other Hodan Chong Active [facility] states / Repository Z98.890(ICD-10) 05/16/2017 Active Nontoxic [facility] multinodular goiter Clinic Main / E04.2(ICD-10) [place] Repository 05/03/2017 Active Secondary and NA Active [facility] unspecified Clinic 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 Repository limb lymph nodes / C77.3(ICD-10) 05/03/2017 Active Estrogen receptor [facility] positive status Clinic Main (ER+) / [place] Z17.0(ICD-10) Repository 05/09/2017 Active Unknown / NA Active [facility] UNK(Unknown) Clinic Main [place] Repository 04/21/2017 Unknown Z09 - Encounter for Hodan Chong Active [place] [facility]-up [facility] examination after Hospital completed treatment Repository for conditions other than malignant neoplasm / Z09(ICD-10) 05/26/2017 Unknown Z01.810 - Encounter SonyaBishop padilla Active [place] for preprocedural Community cardiovascular Hospital examination / Repository Z01.810(ICD-10) 04/05/2017 Active Abnormal findings on [facility] diagnostic imaging Clinic Main of other specified [place] body structures / Repository R93.8(ICD-10) 03/28/2017 Active Other abnormal and NA Active [facility] inconclusive Clinic Main findings on [place] diagnostic imaging Repository of breast / R92.8(ICD-10) 03/22/2017 Active Encounter for Active [facility] screening mammogram Clinic Main for malignant [place] neoplasm of breast / Repository Z12.31(ICD-10) PROCEDURES PROCEDURES No Procedure Records FoundVITAL SIGNS VITAL SIGNS No Vital Signs Records FoundRESULTS RESULTS DISCHARGE SUMMARY Observed: 03/05/2018 Status: F Source: [place] 4:45 PM [facility] REPOSITORY [facility] Medical Records Department [address] [place] [address] Discharge Summary 03/05/18 1638 MR#: [id number] Acct: [id number] Name: JESSICA RODRIGUEZ Rep #: [id number] : 1955 62 From: Jayce Orourke MD PCP: Ruth Clark DO Status: ADM IN Y Location: [address] Discharge Date and Diagnosis - Problem List Patient Problems: Active and Suspected Problems Severe sepsis (Acute) Date of Admission: 03/01/18 Date of Discharge: 03/05/18 - Primary Discharge Diagnosis Active and Suspected Problems Severe sepsis (Acute) - Secondary Discharge Diagnosis Chronic Problems Cancer of breast, intraductal (Chronic) Bacteremia due to group B Streptococcus (Chronic) Rheumatoid arthritis (Chronic) Obesity (Chronic) History of cigarette smoking unknown (Chronic) Diabetes mellitus type II, controlled (Chronic) Hyperlipidemia (Chronic) Hypertension (Chronic) Hospital Course and Treatment Imaging Results: CT Chest: IMPRESSION: 1. Trace bilateral pleural effusions. 2. No airspace consolidation or cavitating process. 3. Bilateral mastectomy. Mildly asymmetric soft tissue density of the inferior left breast/chest but no related focal fluid collection. 4. Probable radiation changes of the anterior left upper lobe. 5. 2.5 x 1.8 cm deep left axillary (adjacent to the left subscapularis muscle) without wall enhancement or air fluid level. Likely represents sequela of prior axillary surgery (such as seroma). Unlikely to be infectious in nature. CT Abd/pelvis: IMPRESSION: 1. No focal fluid collection. Nonspecific abdominal wall induration could relate to patient's history of cellulitis. 2. No intra-abdominal acute inflammatory or infectious process. 3. Atherosclerosis. 4. Degenerative changes of the lumbar spine. 5. Bilateral nephrolithiasis, nonobstructing. Consults: General Surgery Infectious Disease Operations: None Procedures: 2-D Echocardiogram - Interpretation Summary Normal LV size. Left ventricular systolic function is normal. The estimated ejection fraction is 60 %. No evidence for diastolic dysfunction. There is no evidence of a mass or vegetation. This does not rule out endocarditis., Transesophageal Echo - Interpretation Summary Left ventricular systolic function is normal. The estimated ejection fraction is 60 %. The left atrium is mildly enlarged. There is no sponatenous contrast in the left atrium. No thrombus is detected in the left atrial appendage. Mild (1+) mitral valve insufficiency. Trivial tricuspid valve insufficiency. Color flow doppler c/w a small left to right shunt c/w a small PFO. Bubble contrast study negative for right to left interatrial shunt. Mild atherosclerosis of the descending aorta. Summary of Care Provided: Per HPI: The patient is a 62 year old F with history of breast CA status post mastectomy with neoadjuvant chemotherapy currently on anastrozole, history of recurrent streptococcal skin infection who presented with warmth and erythema involving the anterior trunk.. Did notice her symptoms on the morning of her presentation. Patient in addition did experience fever chills as well as palpitations. She had recently completed antibiotic therapy for cellulitis. An assessment of severe sepsis was made treatment initiated per protocol admitted for further inpatient management. Hospital Course: 1. 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 She tested positive for group B strep and was started on IV Ancef. Her cellulitis resolved fairly quickly and she had a CT scan of her chest and abdomen pelvis to determine if there is any sources that could be drained, both were negative. She did have a left axillary fluid collection that appeared to be a seroma without any air bubbles or surrounding inflammation, as well as a 3.7 mm subpleural nodule that was likely postinflammatory related to the prior radiation treatment. She did have initially a transthoracic echo which was normal however to be sure that she did not have endocarditis given the positive strep bacteremia, she underwent a transesophageal echocardiogram today which was also negative for any endocarditis. She was discharged on 2 weeks of Keflex 500 mg p.o. 4 times daily, she will follow-up with infectious disease in 2 weeks to determine if course needs to be longer or if she is to have daily suppressive therapy. She will also need to follow-up with her primary care physician in 3-5 days. 2. Her other medical diagnoses were evaluated and her home medications were continued where appropriate Patient Problems: Active and Suspected Problems Severe sepsis (Acute) - Physical Exam Vital Signs Temp Pulse Resp BP Pulse Ox 99.2 F H 53 L 18 147/59 H 100 03/05/18 15:15 03/05/18 15:15 03/05/18 15:15 03/05/18 15:15 03/05/18 15:15 Oxygen Flow Rate (L/min) 2 Oxygen Delivery Method Room Air Weight: 181 lb 7.047 oz Body Mass Index (BMI) 34.2 Finger Stick Blood Glucose 126 Intake and Output for Last 24 Hours Intake Total 3356 / 3356 2604 / 2604 1468 / 1468 Output Total 3250 / 3250 3200 / 3200 2250 / 2250 Balance 106 / 106 -596 / -596 -782 / -782 Microbiology Past 72 Hours 03/01/18 12:15 Blood Culture - Final Blood Culture (Wb) - Anticubital Right Streptococcus agalactiae (B) POC Glucose POC Glucose 108 140 H 124 H POC Glucose 148 H Discharge Activity: No Restrictions Call your doctor if your incision/area has: Increased Pain/ Swelling, Increased Redness, Foul Smelling Discharge Call your doctor if you observe: Fever of 101 or Higher, Shortness of breath, Dizziness, Chest pain, Increased palpitations (irregular heartbeat) Home Medications: Medications to take at Discharge Butalbital/Aspirin/Caffeine [Fiorinal 50-325-40 mg Capsule] 1 tab PO DAILY PRN PRN 03/21/13 Fluoxetine [Prozac] 20 mg PO DAILY 03/21/13 Multivitamins,Therapeutic [Multivitamin] 1 tablet PO QHS 03/21/13 Omeprazole [Prilosec] 40 mg PO DAILY 03/21/13 Acetaminophen [Tylenol] 500 - 1,000 mg PO Q6H PRN PRN 04/18/17 Aspirin/Acetaminophen/Caffeine [Excedrin Migraine Caplet] 1 each PO DAILY PRN PRN 04/18/17 Calm Day 1 cap PO DAILY 04/18/17 Ibuprofen 400 mg PO Q6H PRN PRN 04/18/17 Metformin HCl 500 mg PO BID 04/18/17 Anastrozole [Arimidex] 1 mg PO DAILY 01/18/18 Calcium 600-Vit D3 400 Tablet 1 capsule PO DAILY 01/19/18 Calcium Magnesium Vitamin D3 1 cap PO DAILY 01/19/18 Lorazepam [Ativan] 0.5 mg PO Q8H PRN PRN 01/19/18 Ondansetron [Zofran] 8 mg PO Q8H PRN PRN 01/19/18 Furosemide [Lasix] 20 mg PO DAILY PRN PRN 03/01/18 Potassium Chloride [K-Dur] 10 meq PO DAILY PRN PRN 03/01/18 traMADol [Ultram] 50 mg PO TID PRN 03/01/18 Cephalexin [Keflex] 500 mg PO Q6 #56 capsule 03/05/18 Nystatin Powder [Mycostatin Powder] 1 applic TOPICAL TID #2 bottle 03/05/18 Following Prescrptions Were Given to Patient: Cephalexin [Keflex] 500 mg PO Q6 #56 capsule Nystatin Powder [Mycostatin Powder] 1 applic TOPICAL TID #2 bottle Primary Care Physician: Ruth Clark DO [Primary Care Provider] - Please follow up with your Primary Care Physician in: 3-5 days Please Follow Up With: Paul England MD When: 2 weeks Disposition: Home Minutes spent on discharge:: 35 Patient Condition:: Good Medical Necessity - Tobacco Use Smoking Status: Never smoker Meaningful Use Info Meaningful Use Diagnoses (Choose all that apply): None applicable Code Visit Inpatient E AND M: 52774 Disch Hosp 03/05/18 1645 <Electronically signed by Jayce Orourke MD> Date Jayce Orourke MD Cosigner Signature (if applicable): Date CC: Ruth Clark DO; Jayce Orourke MD Signed DISCHARGE INSTRUCTION Observed: 03/05/2018 Status: F Source: [place] 4:38 PM [facility] RE[facility]IT[facility] Medical Records Department [address] [place] [address] Instructions for Home/Discharge Instructions 03/05/18 1636 MR#: [id number] Acct: [id number] Name: JESSICA RODRIGUEZ Rep #: [id number] : 1955 62 From: Jayce Orourke MD PCP: Ruth Clark DO Status: ADM IN - Discharge Diagnoses Current Active Problems: Current Active and Chronic Problems Severe sepsis (Acute) You will use the following diet at home:: No restrictions Your food should be the consistency of: Regular Your liquids should be the consistency of: Regular/Thin Discharge Activity: No Restrictions Call your doctor if your incision/area has: Increased Pain/ Swelling, Increased Redness, Foul Smelling Discharge Call your doctor if you observe: Fever of 101 or Higher, Shortness of breath, Dizziness, Chest pain, Increased palpitations (irregular heartbeat) Allergies/Adverse Reactions: Allergies shellfish derived Allergy (Mild, Verified 03/01/18 10:31) Hives iodine Allergy (Verified 03/01/18 10:31) Hives liraglutide [From Victoza] Adverse Reaction (Verified 03/01/18 10:31) Nausea, VOMITING IV DYE Allergy (Mild, Uncoded 03/01/18 10:31) Hives Medications to take at Discharge Butalbital/Aspirin/Caffeine [Fiorinal 50-325-40 mg Capsule] 1 tab PO DAILY PRN PRN 03/21/13 Fluoxetine [Prozac] 20 mg PO DAILY 03/21/13 Multivitamins,Therapeutic [Multivitamin] 1 tablet PO QHS 03/21/13 Omeprazole [Prilosec] 40 mg PO DAILY 03/21/13 Acetaminophen [Tylenol] 500 - 1,000 mg PO Q6H PRN PRN 04/18/17 Aspirin/Acetaminophen/Caffeine [Excedrin Migraine Caplet] 1 each PO DAILY PRN PRN 04/18/17 Calm Day 1 cap PO DAILY 04/18/17 Ibuprofen 400 mg PO Q6H PRN PRN 04/18/17 Metformin HCl 500 mg PO BID 04/18/17 Anastrozole [Arimidex] 1 mg PO DAILY 01/18/18 Calcium 600-Vit D3 400 Tablet 1 capsule PO DAILY 01/19/18 Calcium Magnesium Vitamin D3 1 cap PO DAILY 01/19/18 Lorazepam [Ativan] 0.5 mg PO Q8H PRN PRN 01/19/18 Ondansetron [Zofran] 8 mg PO Q8H PRN PRN 01/19/18 Furosemide [Lasix] 20 mg PO DAILY PRN PRN 03/01/18 Potassium Chloride [K-Dur] 10 meq PO DAILY PRN PRN 03/01/18 traMADol [Ultram] 50 mg PO TID PRN 03/01/18 Cephalexin [Keflex] 500 mg PO Q6 #56 capsule 03/05/18 Nystatin Powder [Mycostatin Powder] 1 applic TOPICAL TID #2 bottle 03/05/18 The following prescriptions were given: Cephalexin [Keflex] 500 mg PO Q6 #56 capsule Nystatin Powder [Mycostatin Powder] 1 applic TOPICAL TID #2 bottle Primary Care Physician: Ruth Clark DO [Primary Care Provider] - Please follow up with your Primary Care Physician in: 3-5 days Test Results: Test results from this visit will be discussed in further detail at your follow-up appointment, if applicable. Please Follow Up With: Paul England MD When: 2 weeks 03/05/18 1638 <Electronically signed by Jayce Orourke MD> Date Jayce Orourke MD CC: Ruth Clark DO; Hodan Chong MD; Paul England MD Signed ECHO TRANSESOPHAGEAL (RIC) Observed: 03/05/2018 Status: F Source: [place] 4:21 PM [facility] Cardiovascular Services [address] [place] [id number] Echo Transesophageal (RIC) 03/05/18 1334 MR#: [id number] Acct: [id number] Name: JESSICA RODRIGUEZ Rep #: [id number] : 1955 62 From: Harpreet Ferguson MD Attending Dr: Jayce Orourke MD Status: ADM IN Ordering Dr: Paul England MD Date: 03/05/18 Location: [facility]3 Sex: F C Admitted: 03/01/18 Reason For Study: CHEST PAIN Medication RIC probe passed without difficulty. No complications were noted. Cetacaine Topical [place] given X3 orally. Versed 100 mg given slow IVP. Fentanyl 50 mcg given slow IVP. Performed a rapid injection of agitated mix of 9 cc saline and 1cc air to assess for atrial septal defect. Saline bubble X 2. Left Ventricle Normal LV size. Left ventricular systolic function is normal. The estimated ejection fraction is 60 %. No regional wall motion abnormalities noted. Right Ventricle Normal RV size. The right ventricular wall motion is normal. Atria Color flow doppler c/w a small left to right shunt c/w a small PFO. Bubble contrast study negative for right to left interatrial shunt. The left atrium is mildly enlarged. There is no sponatenous contrast in the left atrium. No thrombus is detected in the left atrial appendage. Normal right atrium. There is no sponatenous contrast in the right atrium. No RA/appendage thrombus identified. Mitral Valve There is no mitral annular calcification. Normal mitral valve. Mild (1+) mitral valve insufficiency. Tricuspid Valve Normal tricuspid valve. Trivial tricuspid valve insufficiency. Aortic Valve Trisinus/trileaflet aortic valve. Normal aortic valve. Pulmonic Valve The pulmonic valve is not well visualized. Vessels Mild atherosclerosis of the descending aorta. Pericardium No pericardial effusion. Interpretation Summary Left ventricular systolic function is normal. The estimated ejection fraction is 60 %. The left atrium is mildly enlarged. There is no sponatenous contrast in the left atrium. No thrombus is detected in the left atrial appendage. Mild (1+) mitral valve insufficiency. Trivial tricuspid valve insufficiency. Color flow doppler c/w a small left to right shunt c/w a small PFO. Bubble contrast study negative for right to left interatrial shunt. Mild atherosclerosis of the descending aorta. Ordering Physician: Paul England Referring Physician: RUTH CLARK Performed By: Cait Paez, RDCS, RVT 03/05/18 1620 Date Harpreet Ferguson MD CC: Ruth Clark DO; Jayce Orourke MD; Paul England MD Date Dictated: 03/05/18 1334 Date Transcribed: 03/05/18 1621 Printed Circuit Board Panels Developer: Signed CONSULTATION Observed: 03/05/2018 Status: F Source: [place] 1:21 PM [facility] REPOSITORY [facility] Medical Records Department [address] [place] [address] Consultation 03/04/18 1439 MR#: [id number] Acct: [id number] Name: JESSICA RODRIGUEZ Rep #: [id number] : 1955 62 From: Hodan Chong MD PCP: Ruth Clark DO Status: ADM IN Y Location: [facility] [place] PT144-9 - Consult Date of Consult: 03/04/18 - Reason for Consult 62 y\o HUMBERTO presents with repeated cellulitis, has had three episodes since December 2017, and presented with sepsis and bacteremia for the latter two presentations - January and this admission. She had chemotherapy for left breast cancer and also radiation to the left chest wall. She is s/p 3\9\18 left mastectomy and sentinel lymph node biopsy and prophylactic right mastectomy and 4\12\18 left axillary lymph node dissection, revision of dog ear. She states that the cellulitis always begins in the fold of her remnant right breast site. PAST MEDICAL HISTORY Diverticulosis of colon with hemorrhage Personal history of colonic polyps PMH - PAST MEDICAL HISTORY OF SPASTIC COLON Psoriatic arthritis (HCC) Tension headache Type II or unspecified type diabetes mellitus without mention of complication, not stated as uncontrolled History of left breast cancer PAST SURGICAL HISTORY COLONOSCOP W/ OR W/O BRSH SPEC 2000 COLONOSCOP W/ OR W/O BRSH SPEC 12/09/2012 EGD W/O OR W/BRUSH/WASH 12/09/2012 EXCIS BREAST LESION Left breast HYSTEROSCOPY WBX WWO D AND C ANDOR POLYPECTOMY 2011 LIGATE FALLOPIAN TUBE PAST SURGICAL HISTORY OF cyst removed from back bilateral mastectomies left axillary lymph node dissection, revision of dog ear PAST INJURIES Denies head injuries, denies history of fractures Current Outpatient Prescriptions: OTEZLA 30 mg tablet AFLURIA QUAD 9020-1654, PF, 60 mcg/0.5 mL syrg To be injected by Pharmacist metFORMIN ER (GLUCOPHAGE XR) 500 mg 24 hr tablet Take 1,000 mg by mouth once daily. SUMAtriptan (IMITREX) 100 mg tablet Take 100 mg by mouth as needed. Omeprazole (PRILOSEC) 40 mg capsule Take 40 mg by mouth once daily. methotrexate 2.5 mg tablet Take 2.5 mg by mouth as directed. Pt is taking 6 tablets, once weekly hydroxychloroquine (PLAQUENIL) 200 mg tablet Take 200 mg by mouth twice daily. LEUCOVORIN CALCIUM ORAL Take 5 mg by mouth once each week. Pt takes this the day after taking methotrexate. ojfftpf-tkkkyqaa-sgenahbbqa capsule Take 1 capsule by mouth once daily as needed. traMADol 50 mg tablet Take 50 mg by mouth three times daily as needed. eletriptan (RELPAX) 20 mg tablet Take 20 mg by mouth as needed. may repeat in 2 hours if necessary saxagliptin-metFORMIN (KOMBIGLYZE XR) 5-1,000 mg TM24 Take by mouth. Flaxseed Oil 1,000 mg ORAL Cap Take 1 capsule by mouth once daily. simvastatin (ZOCOR) 20 mg ORAL tablet Take 1 tablet by mouth daily at bedtime. omeprazole (PRILOSEC) 20 mg ORAL capsule Take 1 capsule by mouth once daily. LORazepam 0.5 mg ORAL Tab Take 0.5 mg by mouth once daily as needed. fluoxetine 20 mg ORAL capsule Take 20 mg by mouth once daily. gluc perez/chondro perez a/vit c/mn(GLUCOSAMINE CHONDROITIN MAXIMUM STRENGTH 500 MG-400 MG CAP) Take one(1) capsules three(3) times daily.. naproxen sodium(ALEVE 220 MG TAB) PRN MULTIVITAMIN TAB Take one(1) tablet daily. CALCIUM + D 600 MG-200 UNIT TAB Take one(1) tablet twice daily. TYLENOL EXTRA STRENGTH 500 MG TAB Take two(2) tablets every six(6) hours as needed for pain. ALLERGIES: Iodine; Iv Dye [Iodinated Contrast- Oral And Iv Dye]; Shellfish; Victoza [Liraglutide] PERSONAL HISTORY: Social History Marital status: Spouse name: Niles Years of education: 16 Number of children: 0 Occupation Employer Comment [employer] Social History Main Topics Smoking status: Passive Smoke Exposure - Never Smoker Packs/day: 0.00 Years: 0.00 Smokeless status: Never Used Comment: smokes socially Alcohol use: No Drug use: No Sexual activity: Not Currently Partners with: Male control/protection: Tubal Ligation FAMILY HISTORY Diabetes Father Heart Father Breast Cancer Maternal Grandmother Prostate Cancer Maternal Grandfather Osteoporosis Mother Osteoporosis Sister Hypertension Sister Lipids Father Arthritis Mother GI Mother IBS REVIEW OF SYSTEMS: General: The patient denies fatigue, denies weight loss, denies weight gain, denies feeling hot, and denies feelings of cold. Eyes: The patient denies glaucoma, denies eye injury/surgery, wears glasses or contacts. Ear/Nose/Throat: The patient denies allergies, denies hayfever, denies ear infections, and denies bloody noses. Cardiovascular:denies chest pain, denies heart disease, denies high blood pressure,denies cardiac stent, denies prior heart attack, denies irregular heart beat, denies high cholesterol, denies poor circulation, denies heart failure, other cardiac issues, denies claudication, denies cold feet, denies peripheral arterial stent. Respiratory: The patient denies tuberculosis, denies pneumonia, denies frequent cough, denies pulmonary embolism, denies shortness of breath, and denies coughing up blood. Gastrointestinal: had last colonoscopy Feb 2017, denies difficulty swallowing, NOTES acid reflux, denies ulcers, denies vomiting, denies jaundice/hepatitis, denies gallbladder problems, denies black or tarry stools, denies hemorrhoids, denies bleeding from rectum, denies diverticulitis, denies constipation, denies diarrhea, denies loss of stool control, and denies hernias. Kidney/Bladder: The patient denies kidney stones, denies urine infections, and denies bloody urine. Skin: The patient denies a history of skin cancer, denies bleeding/changing moles, and denies a history of skin rash. Neurologic:has tension headaches, denies seizures, denies head/spinal injuries, and denies stroke/TIA. Psychiatric: The patient denies psychiatric medications, NOTES depression, and denies voices, denies substance abuse. Endocrine: The patient denies thyroid disorders, NOTES diabetes, and denies hormonal problems. Hematologic: The patient denies a history of bruising, denies bleeding, and denies anemia, denies blood clots. Infections: The patient denies a history of measles and mumps, denies rheumatic fever, and denies sexually transmitted diseases. Musculoskeletal: has osteoarthritis of shoulders, denies back pain/injury, denies back problems, denies sciatica, denies knee/foot trouble, NOTES arthritis, or denies gout. Obstetrical: menarche onset at age 13, had shots to induce normal menstrual periods then started on hormones at age 16 and continued until age 19 and then begun on BCP - all to aid in normalizing menstrual periods, patient had normal menstrual periods starting at age 42, menopause around age 52 PHYSICAL EXAMINATION: General: The patient is 61 year old female, well nourished, well hydrated in no acute distress. The patient is oriented to time, place, and person. VITALS: Blood pressure 138/62, pulse 64, weight 88.5 kg (195 lb). Body mass index is 36.25 kg/(m Head Normocephalic. EOM intact with sclera clear and no icterus noted. Mouth with mucus membranes moist. Neck - supple with no jugular venous distention noted. Trachea is midline. No carotid bruits noted. No thyroid enlargement or thyroid nodules detected. No masses noted. Chest/breast bilateral surgical mastectomies with well healed incisional sites - erythema of anterior abdominal wall - no palpable masses, retained breast tissue at right mastectomy site - this is the location that the patient states that the infection always starts Lungs clear to auscultation. Normal breath sounds. No rales/rhonchi/wheezing noted. No labored breathing noted, such as retractions. No cough heard. Heart normal S1 and S2 auscultated. No rubs/clicks/murmurs noted. Regular rate. Abdomen soft and benign. erythema now brawny in coloration of anterior abdominal wall - patient states that it was much more red a few days ago. Normal bowel sounds. No abdominal bruits noted. Difficult to determine if any masses or organomegaly due to body habitus. Extremities no calf tenderness noted. No pitting edema noted. Skin normal skin integrity. Lymph no cervical adenopathy detected, no supraclavicular adenopathy detected, no axillary adenopathy detected Neurological gait normal, no focal deficits Psych calm and appropriate RADIOLOGIC STUDIES: As Noted Impression: recurrence cellulitis - developing into sepsis Plan: I have discussed above with patient and her . I have personally reviewed CT scans - chest and abdomen. ECHO pending to rule out bacterial endocarditis. I have given them options- I have offered completion right breast mastectomy (there is residual breast tissue present though no seroma at this site -there is some scar tissue at left mastectomy site however patient states that no inflammatory changes noted there until this episode - however patient states that infection always begins at the location of the right mastectomy site). I have told them that I do not know if this will prevent future episodes of cellulitis. They will think about their options. 03/05/18 1321 <Electronically signed by Hodan Chong MD> Date Hodan Chong MD Cosigner Signature (if applicable): Date CC: Ruth Clark DO; Hodan Chong MD; Paul England MD Signed BEDSIDE GLUCOSE Collected: 03/05/2018 Status: F Source: [place] 11:41 AM [facility] REPOSITORY TYPE CODE TESTS RESULT OUT OF RANGE REFERENCE UNITS LAB L501.080 70-110 mg/dL Normal BEDSIDE GLU 108 Result Comment: MANAGEMENT OF PATIENT CARE PER NURSING PROTOCOL Performed By: #### L501.080 #### [facility] Point of Care [address] [facility] [place], [place] [address] BEDSIDE GLUCOSE Collected: 03/05/2018 Status: F Source: [place] 6:38 AM [facility] REPOSITORY TYPE CODE TESTS RESULT OUT OF REFERENCE UNITS RANGE LAB L501.080 70-110 mg/dL High BEDSIDE GLU 140 Result Comment: MANAGEMENT OF PATIENT CARE PER NURSING PROTOCOL Performed By: #### L501.080 #### [facility] Point of Care [address] [place] [address] BEDSIDE GLUCOSE Collected: 03/04/2018 Status: F Source: [place] 9:14 PM [facility] REPOSITORY TYPE CODE TESTS RESULT OUT OF REFERENCE UNITS RANGE LAB L501.080 70-110 mg/dL High BEDSIDE GLU 124 Result Comment: MANAGEMENT OF PATIENT CARE PER NURSING PROTOCOL Performed By: #### L501.080 #### [facility] Point of Care [address] [place] [address] BEDSIDE GLUCOSE Collected: 03/04/2018 Status: F Source: [place] 5:40 PM [facility] REPOSITORY TYPE CODE TESTS RESULT OUT OF REFERENCE UNITS RANGE LAB L501.080 70-110 mg/dL High BEDSIDE GLU 148 Result Comment: MANAGEMENT OF PATIENT CARE PER NURSING PROTOCOL Performed By: #### L501.080 #### [facility] Point of Care [address] [place], [place] [address] ECHO, COMPLETE W/ Observed: 03/04/2018 Status: F Source: [place]AST 2:56 PM [facility] REPOSITORY [facility] Cardiovascular Services [address] [place] [address] Echo Complete W/ Contrast 03/04/18 1250 MR#: [id number] Acct: [id number] Name: JESSICA RODRIGUEZ Rep #: [id number] : 1955 62 From: Bishop Hassan MD Attending Dr: Jayce Orourke MD Status: ADM IN Ordering Dr: Watson Marie MD Date: 03/03/18 Location: [place] Sex: F C Admitted: 03/01/18 Reason For Study: emboli, + strep bacteria. Procedure This was a 2D Doppler, Color Flow transthoracic echocardiogram. The study was technically difficult. Due to left breast mastectomy,. Contrast injection was performed. Exam performed portable in patient room. Left Ventricle Normal LV size. Left ventricular systolic function is normal. The estimated ejection fraction is 60 %. No evidence for diastolic dysfunction. No regional wall motion abnormalities noted. Right Ventricle Normal RV size. Normal systolic function. Atria Normal left atrium. Normal right atrium. Mitral Valve There is mild mitral annular calcification. Tricuspid Valve Normal tricuspid valve. Aortic Valve The aortic valve is not well visualized. Pulmonic Valve The pulmonic valve is not well visualized. Great Vessels Normal aortic root. The pulmonary artery is normal size. Normal inferior vena cava. Pericardium/Pleural No pericardial effusion. Medication Diluted definity 3.0ml given slow IV push to enhance endocardial definition. MMode/2D Measurements AND Calculations LVIDd: 4.4 cm IVSd: 1.0 cm Ao root diam: 2.9 cm LVIDs: 3.1 cm LVPWd: 1.2 cm RVDd: 3.9 cm FS: 28.0 % LAV(MOD-bp): 62.8 ml LA A4 area: 20.1 cm2 LA dimension(2D): 4.2 cm LAV(MOD-bp) Indexed: 34.7 ml/m2 LAV(MOD-sp2): 63.8 ml LAV(MOD-sp4): 62.2 ml RA A4 area: 15.6 cm2 Doppler Measurements AND Calculations MV E max kellen: 117.7 cm/sec Lat Peak E' Kellen: 13.3 cm/sec Med Peak E' Kellen: 9.4 cm/sec MV A max kellen: 92.8 cm/sec E/E' lat: 8.9 E/E' med: 12.5 MV E/A: 1.3 Ao V2 max: 127.2 cm/sec LV V1 max: 99.8 cm/sec PA V2 max: 85.2 cm/sec Ao max P.5 mmHg LV V1 max P.0 mmHg TR max kellen: 277.4 cm/sec TR max P.8 mmHg Interpretation Summary Normal LV size. Left ventricular systolic function is normal. The estimated ejection fraction is 60 %. No evidence for diastolic dysfunction. There is no evidence of a mass or vegetation. This does not rule out endocarditis. Ordering Physician: Watson Marie Referring Physician: Ruth Clark Performed By: Alexandrea Mtz, GAUDENCIOCS, RVT 03/04/18 1456 Date Bishop Hassan MD CC: Watson Marie MD; Ruth Clark DO; Jayce Orourke MD Date Dictated: 03/04/18 1250 Date Transcribed: 03/04/18 145 Printed Circuit Board Panels Developer: Signed CONSULTATION Observed: 03/04/2018 Status: F Source: [place] 12:42 PM [facility] REPOSITORY [facility] Medical Records Department [address] [place] [address] Consultation 03/04/18 1233 MR#: [id number] Acct: [id number] Name: JESSICA RODRIGUEZ Rep #: [id number] : 1955 62 From: Paul England MD PCP: Ruth Clark DO Status: ADM IN Y Location: [facility] [id number] Problem List (1) 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 Orourke History of Present Illness: 62 year old F with h/o breast cancer now s/p bilateral mastectomy, chemo, and radiation who presented 03/01 with 1-2 days of R chest redness, fever, shaking chills, not feeling well, n/v. No drainage from chest. Has some chronic skin tears under R breast tissue. Mild soreness with the rash. Redness spread across L side and upper abd. Had similar cellulitis 12/2017, went to ED, resolved with dose of ceftriaxone and 10 days of augmentin. Presented again 01/19 with one day history of abd redness, pain, and itching. Found to have GBS bacteremia, discharged on po keflex after rapid improvement. Completed course of abx with no further issues except for shingles on R abd a few weeks ago. Came back to ED once fever started, admitted on vanc and cefazolin, now feeling better, no further fever, redness much improved. Full ROS performed and neg except as noted above. - Medical History Past Medical History (Chronic Problems): Chronic Problems Cancer of breast, intraductal (Chronic) Bacteremia due to group B Streptococcus (Chronic) Rheumatoid arthritis (Chronic) Obesity (Chronic) History of cigarette smoking unknown (Chronic) Diabetes mellitus type II, controlled (Chronic) Hyperlipidemia (Chronic) Hypertension (Chronic) Allergies/Adverse Reactions: Allergies shellfish derived Allergy (Mild, Verified 03/01/18 10:31) Hives iodine Allergy (Verified 03/01/18 10:31) Hives liraglutide [From Victoza] Adverse Reaction (Verified 03/01/18 10:31) Nausea, VOMITING IV DYE Allergy (Mild, Uncoded 03/01/18 10:31) Hives Home Medications: Ambulatory Orders Medication Instructions Recorded - Social History SMOKING STATUS:: Never smoker Vital Signs Temp Pulse Resp BP Pulse Ox 98.3 F 66 16 147/64 H 100 03/04/18 08:10 03/04/18 08:10 03/04/18 08:10 03/04/18 08:10 03/04/18 08:10 Oxygen Flow Rate (L/min) 2 Oxygen Delivery Method Room Air Weight: 82.3 kg Body Mass Index (BMI) 34.2 Finger Stick Blood Glucose 126 Microbiology Past 72 Hours 03/01/18 12:15 Blood Culture - Final Blood Culture (Wb) - Anticubital Right Streptococcus agalactiae (B) Laboratory Tests Past 24 Hrs Sodium 145 Potassium 3.9 Chloride 111 H Carbon Dioxide 27.0 - Other Studies Radiology: [] reviewed Other Studies: [] Route of nutrition/ use of supplements: [] Nutritional Intake: [] IV Site: [] Mukherjee Catheter: [] - Physical Exam General: Alert, Oriented x3, Cooperative, No apparent distress HEENT: Atraumatic, PERRLA, EOMI Neck: Supple, No Nodes Lungs: Clear to auscultation, Normal air movement Cardiovascular: Regular rate, Regular Rhythm, No murmurs Abdomen: Soft, Non Tender, Non-Distended Extremities: No edema Skin: - - Fading rash on R chest, which spread to L side and upper abd. S/p bilateral mastectomies. IV Site: Peripheral, without redness Musculoskeletal: No Tenderness to Palpation of Joints or Extremities Neurological: Cranial nerves II-XII grossly intact - Assessment/Plan Antibiotics: [] Assessment/Plan: [] Active and Suspected Problems Severe sepsis (Acute) Recurrent GBS bacteremia - fever resolved. Had similar episode a month ago. Sx start with R sided cellulitis. She has h/o bilateral mastectomy. CT chest showed small L sided collection near prior lymph dissection as well as some tissue thickening around L breast surgical site. No other clear source of infection. Continue cefazolin. Concern for unresolved nidus of infection. Agree with TTE, and will consult surgery for eval. Dr. Hawkins did R side mastectomy, so will consult him, though CT scan did show L sided small fluid collection. Will follow, thank you, d/w Dr. Orourke. 03/04/18 0000 <Electronically signed by Paul England MD> Date Paul England [facility] Signature (if applicable): Date CC: Ruth Clark DO; Hodan Chong MD; Paul England MD Signed BEDSIDE GLUCOSE Collected: 03/04/2018 Status: F Source: [place] 11:53 AM [facility] REPOSITORY TYPE CODE TESTS RESULT OUT OF REFERENCE UNITS RANGE LAB L501.080 70-110 mg/dL High BEDSIDE GLU 184 Result Comment: MANAGEMENT OF PATIENT CARE PER NURSING PROTOCOL Performed By: #### L501.080 #### [facility] Point of Care [address] [place] [address] BEDSIDE GLUCOSE Collected: 03/04/2018 Status: F Source: [place] 6:12 AM [facility] REPOSITORY TYPE CODE TESTS RESULT OUT OF REFERENCE UNITS RANGE LAB L501.080 70-110 mg/dL High BEDSIDE GLU 143 Result Comment: MANAGEMENT OF PATIENT CARE PER NURSING PROTOCOL Performed By: #### L501.080 #### [facility] Point of Care [address] [place] [address] BASIC METABOLIC Collected: 03/04/2018 Status: F Source: [place] PROFILE (BMP) 5:30 AM [facility] REPOSITORY TYPE CODE TESTS RESULT OUT OF RANGE REFERENCE UNITS LAB L501.0100 74-106 mg/dL High GLU 156 Result Comment: Fasting Glucose result greater than or equal to 126 mg/dL suggests DIABETES MELLITUS per A.D.A. criteria. Please note revised GLUCOSE reference range effective 2017. LAB L501.1000 7-18 mg/dL Normal BUN 7 LAB L501.1100 0.55-1.02 mg/dL Normal CREAT,SERUM 0.56 Result Comment: The validity of the calculated GFR AND GFRAA in patients over 70 years has not been determined. Clinical correlation is essential. LAB L501.1110 >60 mL/min Normal EST GFR 116 Result Comment: Non- GFR Calc LAB L501.1115 >60 mL/min Normal EST GFR - AA 140 Result Comment: GFR Calc LAB L501.1255 ml/min Normal Estimated CRCL 78.60 LAB L501.1300 10-20 RATIO Normal BUN/CRE 12.5 LAB L501.2200 8.5-10 mg/dL Low .1 CA 8.1 LAB L501.5300 136-14 mmol/L Normal 5 NA 145 LAB L501.5600 3.5-5. mmol/L Normal 1 K 3.9 LAB L501.5900 98-107 mmol/L High CL 111 LAB L501.6100 21.0-3 mmol/L Normal 2.0 CO2 27.0 LAB L501.6200 5-15 Normal GAP 7 Performed By: #### L500.2500 #### [facility] [address] [place], [address] BEDSIDE GLUCOSE Collected: 03/03/2018 Status: F Source: [place] 10:52 PM [facility] REPOSITORY TYPE CODE TESTS RESULT OUT OF REFERENCE UNITS RANGE LAB L501.080 70-110 mg/dL High BEDSIDE GLU 191 Result Comment: MANAGEMENT OF PATIENT CARE PER NURSING PROTOCOL Performed By: #### L501.080 #### [facility] Point of Care [address] [place] [address] BEDSIDE GLUCOSE Collected: 03/03/2018 Status: F Source: [place] 4:39 PM [facility] REPOSITORY TYPE CODE TESTS RESULT OUT OF REFERENCE UNITS RANGE LAB L501.080 70-110 mg/dL High BEDSIDE GLU 231 Result Comment: MANAGEMENT OF PATIENT CARE PER NURSING PROTOCOL Performed By: #### L501.080 #### [facility] Point of Care [address] [place] [address] BEDSIDE GLUCOSE Collected: 03/03/2018 Status: F Source: [place] 12:09 PM [facility] REPOSITORY TYPE CODE TESTS RESULT OUT OF REFERENCE UNITS RANGE LAB L501.080 70-110 mg/dL High BEDSIDE GLU 126 Result Comment: MANAGEMENT OF PATIENT CARE PER NURSING PROTOCOL Performed By: #### L501.080 #### [facility] Point of Care [address] [place] [address] ABDOMEN/PELVIS WITH Observed: 03/03/2018 Status: F Source: [place] CONTRAST 11:57 AM [facility] REPOSITORY [facility] Imaging Services [address] [place] [address] Abdomen/Pelvis WITH Contrast MR#: [id number] Acct: [id number] Name: JESSICA RODRIGUEZ Rep #: [id number] : 1955 F 62 From: Estuardo Rosas MD PCP: Ruth Clark DO Status: ADM IN Study: Abdomen/Pelvis WITH Contrast Date of Exam: 03/03/18 Exam# [id number] Ordering Dr: Watson Marie MD STUDY: CT ABDOMEN AND PELVIS WITH CONTRAST REASON FOR EXAM: Female, 62 years old. Recurrent cellulitis in the abdomen, sepsis RADIATION DOSAGE (If Supplied By Facility): CTDIvol = ( 24.45 ) mGy, DLP = ( 2111.94 ) mGycm TECHNIQUE: Transaxial images were obtained from the dome of the diaphragm to the symphysis pubis with oral contrast. 100 ml of Isovue 300 contrast was administered. Sagittal and coronal images were reconstructed. Individualized dose optimization techniques were used for this CT. COMPARISON: None. FINDINGS: Lung bases described on chest CT report. Normal liver. Normal gallbladder and extrahepatic biliary system. Normal spleen. Normal pancreas. Normal bilateral adrenal glands. There are 2 calcifications of the upper right kidney measuring 4 mm each. No hydronephrosis. 2 mm calculus of the mid left kidney is also demonstrated. Normal visualized stomach. Normal small intestine. Normal colon. The appendix is visualized and appears normal. There is diffuse atherosclerotic calcification of the abdominal aorta, without a demonstrated aneurysm. Normal inferior vena cava. Normal retroperitoneum. Normal urinary bladder. Tubal ligation surgical clips are present. Mild nonspecific edema of the body wall without focal fluid collection or significant subcutaneous emphysema. Small locules of air of the anterior (bilateral) abdominal wall felt to be due to injection sites. Grade 1 spondylolisthesis of L4-L5 due to facet arthropathy. Multilevel degenerative changes of the spine. CT/Abdomen/Pelvis WITH Contrast IMPRESSION: 1. No focal fluid collection. Nonspecific abdominal wall induration could relate to patient's history of cellulitis. 2. No intra-abdominal acute inflammatory or infectious process. 3. Atherosclerosis. 4. Degenerative changes of the lumbar spine. 5. Bilateral nephrolithiasis, nonobstructing. Electronically Signed: Estuardo Rosas MD at 12:09 EST , Service support , CC: Watson Marie MD; Ruth Clark DO Printed Circuit Board Panels Developer: Signed VANCOMYCIN, TROUGH Collected: 03/03/2018 Status: F Source: [place] LEVEL 9:05 AM [facility] REPOSITORY Order Comment: Comments: DRAW TROUGH 30 MIN PRIOR TO DOSE AT 10:00 Time Medication is to be Given? 0930 TYPE CODE TESTS RESULT OUT OF REFERENCE UNITS RANGE LAB L501.8820 5.0-15.0 ug/mL Low VANCO, TROUGH 4.7 Result Comment: VANCOMYCIN STANDARED DRUG THERAPY TROUGH LEVEL: 5.0 - 15.0 mg/L VANCOMYCIN HIGH INTENSITY THERAPY TROUGH LEVEL: 15.0 - 20.0 mg/L High Intensity therapy recommended for serious life threatening infections include: - Meningitis -Endocarditis -Pneumonia (Ventilator/Healtcare Associated) -Sepsis PLEASE CONTACT PHARMACY SERVICES (#[id number]) FOR INTERPRETATION OF RESULTS. Performed By: #### L501.8820 #### [facility] [address] [facility] [place], [address] CHEST WITH CONTRAST Observed: 03/03/2018 Status: F Source: [place] 8:57 AM [facility] REPOSITORY [facility] Imaging Services [address] [place] [address] Chest WITH Contrast MR#: [id number] Acct: [id number] Name: JESSICA RODRIGUEZ Rep #: [id number] : 1955 F 62 From: Estuardo Rosas MD PCP: Ruht Clark DO Status: ADM IN Study: Chest WITH Contrast Date of Exam: 03/03/18 Exam# [id number] Ordering Dr: Watson Marie MD STUDY: CT CHEST WITH CONTRAST REASON FOR EXAM: Female, 62 years old. Recurrent cellulitis of the abdomen, sepsis RADIATION DOSAGE (If Supplied By Facility): CTDIvol = ( 24.45 ) mGy, DLP = ( 2111.94 ) mGycm TECHNIQUE: Transaxial imaging was performed following intravenous administration of 100 ml of Isovue 300 contrast material. Multiplanar coronal and sagittal images were reformatted. Individualized dose optimization techniques were used for this CT. COMPARISON: None. FINDINGS: Bilateral mastectomies with mildly asymmetric soft tissue density of the inferior left breast extending into the lower chest. However, no focal fluid collection. No airspace consolidation or cavitating process. Minimal reticulation and groundglass opacity of the anterior left upper lobe may relate to prior radiation therapy. Triangular subpleural nodule on axial image 55 measures 3.7 mm, likely postinflammatory or related to prior radiation therapy. There are trace bilateral pleural effusions with mild degree of atelectasis in both lung bases. Normal heart and pericardium. There are calcifications of the coronary arteries. Normal mediastinum. Normal hilar regions. Normal enhanced pulmonary arteries. Normal aorta arch and descending thoracic aorta. There are multi-level degenerative changes of the thoracic spine. Just anterior to the left subscapularis muscle, there is a well-defined low-density fluid collection measuring 2.5 x 1.8 cm without significant adjacent stranding. No wall enhancement or air fluid levels are seen. Upper abdomen described on abdomen/pelvis CT report. CT/Chest WITH Contrast IMPRESSION: 1. Trace bilateral pleural effusions. 2. No airspace consolidation or cavitating process. 3. Bilateral mastectomy. Mildly asymmetric soft tissue density of the inferior left breast/chest but no related focal fluid collection. 4. Probable radiation changes of the anterior left upper lobe. 5. 2.5 x 1.8 cm deep left axillary (adjacent to the left subscapularis muscle) without wall enhancement or air fluid level. Likely represents sequela of prior axillary surgery (such as seroma). Unlikely to be infectious in nature. Electronically Signed: Estuardo Rosas MD at 12:14 EST , Service support , CC: Watson Marie MD; Ruth Clark DO Printed Circuit Board Panels Developer: Signed BEDSIDE GLUCOSE Collected: 03/03/2018 Status: F Source: [place] 6:28 AM [facility] REPOSITORY TYPE CODE TESTS RESULT OUT OF REFERENCE UNITS RANGE LAB L501.080 70-110 mg/dL High BEDSIDE GLU 133 Result Comment: MANAGEMENT OF PATIENT CARE PER NURSING PROTOCOL Performed By: #### L501.080 #### [facility] Point of Care [address] [facility] [address] [place], [place] [address] CBC-COMPLETE BLOOD CNT Collected: 03/03/2018 Status: F Source: [place] NO DIFF 5:40 AM [facility] REPOSITORY TYPE CODE TESTS RESULT OUT OF RANGE REFERENCE UNITS LAB L100.1000 4.4-11.0 K/mm3 Low WBC 4.1 LAB L100.1200 4.2-5.4 M/mm3 Low RBC 3.82 LAB L100.1300 12.0-15.0 g/dl Low HGB 10.2 LAB L100.1400 37-47 % Low HCT 32.3 LAB L100.1500 81-99 fL Normal MCV 84.6 LAB L100.1600 27.0-32.0 pg Low MCH 26.7 LAB L100.1700 32-36 g/gl Low MCHC 31.6 LAB L100.1810 11.6-14.6 % High RDW CV 14.8 LAB L100.1820 35.1-43.9 fl Normal RDW SD 43.5 LAB L100.1900 150-450 K/mm3 Normal PLT 159 LAB L100.2000 6.2-12.0 fl Normal MPV 9.0 Performed By: #### L100.0500 #### [facility] [address] [facility] [address] [place], [place], [id number] BASIC METABOLIC Collected: 03/03/2018 Status: F Source: [place] PROFILE (BMP) 5:40 AM [facility] REPOSITORY TYPE CODE TESTS RESULT OUT OF RANGE REFERENCE UNITS LAB L501.0100 74-106 mg/dL High GLU 129 Result Comment: Fasting Glucose result greater than or equal to 126 mg/dL suggests DIABETES MELLITUS per A.D.A. criteria. Please note revised GLUCOSE reference range effective 2017. LAB L501.1000 7-18 mg/dL Normal BUN 7 LAB L501.1100 0.55-1.02 mg/dL Normal CREAT,SERUM 0.57 Result Comment: The validity of the calculated GFR AND GFRAA in patients over 70 years has not been determined. Clinical correlation is essential. LAB L501.1110 >60 mL/min Normal EST GFR 114 Result Comment: Non- GFR Calc LAB L501.1115 >60 mL/min Normal EST GFR - AA 138 Result Comment: GFR Calc LAB L501.1255 ml/min Normal Estimated CRCL 77.22 LAB L501.1300 10-20 RATIO Normal BUN/CRE 12.3 LAB L501.2200 8.5-10 mg/dL Low .1 CA 8.2 LAB L501.5300 136-14 mmol/L Normal 5 NA 145 LAB L501.5600 3.5-5. mmol/L Normal 1 K 3.9 LAB L501.5900 98-107 mmol/L High CL 113 LAB L501.6100 21.0-3 mmol/L Normal 2.0 CO2 24.0 LAB L501.6200 5-15 Normal GAP 8 Performed By: #### L500.2500 #### [facility] [address] [facility] [place], [place], [address] BEDSIDE GLUCOSE Collected: 03/02/2018 Status: F Source: [place] 9:37 PM [facility] REPOSITORY TYPE CODE TESTS RESULT OUT OF REFERENCE UNITS RANGE LAB L501.080 70-110 mg/dL High BEDSIDE GLU 131 Result Comment: MANAGEMENT OF PATIENT CARE PER NURSING PROTOCOL Performed By: #### L501.080 #### [facility] Point of Care [address] [facility] [place] [address] BEDSIDE GLUCOSE Collected: 03/02/2018 Status: F Source: [place] 4:18 PM [facility] REPOSITORY TYPE CODE TESTS RESULT OUT OF REFERENCE UNITS RANGE LAB L501.080 70-110 mg/dL High BEDSIDE GLU 136 Result Comment: MANAGEMENT OF PATIENT CARE PER NURSING PROTOCOL Performed By: #### L501.080 #### [facility] Point of Care [address] [place] [address] Observed: 03/02/2018 Status: F Source: [place] CULTURE, BLOOD (WB) 11:20 AM [facility] REPOSITORY BC No growth in 5 days. Performed By: #### M200.1000 #### [facility] [address] [place], [address] BEDSIDE GLUCOSE Collected: 03/02/2018 Status: F Source: [place] 11:02 AM [facility] REPOSITORY TYPE CODE TESTS RESULT OUT OF RANGE REFERENCE UNITS LAB L501.080 70-110 mg/dL Normal BEDSIDE GLU 110 Result Comment: MANAGEMENT OF PATIENT CARE PER NURSING PROTOCOL Performed By: #### L501.080 #### [facility] Point of Care [address] [place] [address] BEDSIDE GLUCOSE Collected: 03/02/2018 Status: F Source: [place] 6:38 AM [facility] REPOSITORY TYPE CODE TESTS RESULT OUT OF REFERENCE UNITS RANGE LAB L501.080 70-110 mg/dL High BEDSIDE GLU 129 Result Comment: MANAGEMENT OF PATIENT CARE PER NURSING PROTOCOL Performed By: #### L501.080 #### [facility] Point of Care [address] [place], [place] [id number] CBC-COMPLETE BLOOD CNT Collected: 03/02/2018 Status: F Source: [place] NO DIFF 6:20 AM [facility] REPOSITORY TYPE CODE TESTS RESULT OUT OF RANGE REFERENCE UNITS LAB L100.1000 4.4-11.0 K/mm3 Normal WBC 7.7 LAB L100.1200 4.2-5.4 M/mm3 Low RBC 3.69 LAB L100.1300 12.0-15.0 g/dl Low HGB 9.8 LAB L100.1400 37-47 % Low HCT 31.1 LAB L100.1500 81-99 fL Normal MCV 84.3 LAB L100.1600 27.0-32.0 pg Low MCH 26.6 LAB L100.1700 32-36 g/gl Low MCHC 31.5 LAB L100.1810 11.6-14.6 % High RDW CV 14.8 LAB L100.1820 35.1-43.9 fl Normal RDW SD 43.9 LAB L100.1900 150-450 K/mm3 Low PLT 145 LAB L100.2000 6.2-12.0 fl Normal MPV 9.0 Performed By: #### L100.0500 #### [facility] [address] [facility] [place], [address] BASIC METABOLIC Collected: 03/02/2018 Status: F Source: [place] PROFILE (BMP) 6:20 AM [facility] REPOSITORY TYPE CODE TESTS RESULT OUT OF RANGE REFERENCE UNITS LAB L501.0100 74-106 mg/dL High GLU 129 Result Comment: Fasting Glucose result greater than or equal to 126 mg/dL suggests DIABETES MELLITUS per A.D.A. criteria. Please note revised GLUCOSE reference range effective 2017. LAB L501.1000 7-18 mg/dL Normal BUN 9 LAB L501.1100 0.55-1.02 mg/dL Normal CREAT,SERUM 0.59 Result Comment: The validity of the calculated GFR AND GFRAA in patients over 70 years has not been determined. Clinical correlation is essential. LAB L501.1110 >60 mL/min Normal EST GFR 110 Result Comment: Non- GFR Calc LAB L501.1115 >60 mL/min Normal EST GFR - AA 133 Result Comment: GFR Calc LAB L501.1255 ml/min Normal Estimated CRCL 74.60 LAB L501.1300 10-20 RATIO Normal BUN/CRE 15.3 LAB L501.2200 8.5-10 mg/dL Low .1 CA 7.7 LAB L501.5300 136-14 mmol/L Normal 5 NA 140 LAB L501.5600 3.5-5. mmol/L Normal 1 K 3.6 LAB L501.5900 98-107 mmol/L High CL 109 LAB L501.6100 21.0-3 mmol/L Normal 2.0 CO2 25.0 LAB L501.6200 5-15 Normal GAP 6 Performed By: #### L500.2500, L501.5200 #### [facility] [address] [place], [address] MAGNESIUM Collected: 03/02/2018 Status: F Source: [place] 6:20 AM [facility] REPOSITORY TYPE CODE TESTS RESULT OUT OF RANGE REFERENCE UNITS LAB L501.5200 1.6-2.6 mg/dL Low MG 1.5 Performed By: #### L500.2500, L501.5200 #### [facility] [address] [place], [address] BEDSIDE GLUCOSE Collected: 03/01/2018 Status: F Source: [place] 10:45 PM [facility] REPOSITORY TYPE CODE TESTS RESULT OUT OF REFERENCE UNITS RANGE LAB L501.080 70-110 mg/dL High BEDSIDE GLU 131 Result Comment: MANAGEMENT OF PATIENT CARE PER NURSING PROTOCOL Performed By: #### L501.080 #### [facility] Point of Care [address] [place] [address] BEDSIDE GLUCOSE Collected: 03/01/2018 Status: F Source: [place] 4:01 PM [facility] REPOSITORY TYPE CODE TESTS RESULT OUT OF REFERENCE UNITS RANGE LAB L501.080 70-110 mg/dL High BEDSIDE GLU 138 Result Comment: MANAGEMENT OF PATIENT CARE PER NURSING PROTOCOL Performed By: #### L501.080 #### [facility] Point of Care [address] [place] [address] EMERGENCY DEPARTMENT Observed: 03/01/2018 Status: F Source: [place] SUMMARY 3:45 PM [facility] REPOSITORY [facility] Medical Records Department [address] [place] [address] [place] [address] Emergency Department Summary 03/01/18 1159 MR#: [id number] Acct: [id number] Name: JESSICA RODRIGUEZ Rep #: [id number] : 1955 62 From: Ashu Gutiérrez MD PCP: Ruth Clark DO Status: ADM IN - ER Visit Summary Date of Service: 03/01/18 Chief Complaint: Rash History of Present Illness: The patient is a 62 F with presumed cellulitis. She noted redness and warmth to her abdominal wall today. The patient has had this in December 2017 in January 2018. In December she was treated with Rocephin and then Augmentin. She had negative cultures. In January she had cultures positive for group B strep and was admitted and treated with Rocephin and vancomycin. She was discharged on Keflex which she just finished. He has a history of breast cancer and was treated with a bilateral mastectomy and lymph node surgeries, chemotherapy, and radiation. Currently on arimidex. Allergy to IV dye. Physical Examination: Afebrile vital signs unremarkable except for heart rate of 102. Anterior abdominal wall is erythematous and warm. Otherwise exam unremarkable. Test Results: White count 13.8. Metabolic panel and coags unremarkable. Urinalysis pending. Lactate pending. Cultures pending. Emergency Department Course and Treatment: Patient has abdominal wall cellulitis and criteria for sepsis. She was treated with a fluid bolus, morphine, Zofran, and started on vancomycin. Cultures and lactate are pending. The patient is stable and will benefit from admission for further care. She was discussed with Dr. Marie. Based on her symptoms and exam, I am not sure if she has a focus for this infection. She may benefit from imaging, but she has an allergy to IV contrast dye. She may need MRI or other imaging not emergently. Treatment Plan: As above Disposition: Admission Impression: 1. Abdominal wall cellulitis 2. Sepsis This note was generated with [employer] dictation software. It may contain incorrect words, spelling, and punctuation that were not noted in review of the chart prior to signing ED Disposition - Plan for ED Patient: Chief Complaint: Cellulitis Referrals: Ruth Clark, DO [Primary Care Provider] - What to do if you have Problems For any increased pain, shortness of breath, bleeding, nausea or vomiting, chest pain, or any unexpected problems, contact your Primary Care Provider. Call [facility] ([phone]) or report to the closest Emergency Room. Call 911 if necessary. 03/01/18 1540 <Electronically signed by Ashu Gutiérrez MD> Date Ashu Gutiérrez MD Cosigner Signature (If Indicated): Date CC: Ruth Clark DO LACTIC ACID Collected: 03/01/2018 Status: F Source: [place] 3:42 PM [facility] REPOSITORY TYPE CODE TESTS RESULT OUT OF RANGE REFERENCE UNITS LAB L503.6005 0.4-2.0 mmol/L Normal LACTIC ACID 1.5 Performed By: #### L503.6005 #### [facility] [address] [facility] [place], [address] HISTORY AND PHYSICAL Observed: 03/01/2018 Status: F Source: [place] EXAM 2:27 PM [facility] REPOSITORY [facility] Medical Records Department [address] [place] [address] History and Physical 03/01/18 1216 MR#: [id number] Acct: [id number] Name: LARRYJESSICA Dougherty Jonathan Rep #: [id number] : 1955 62 From: Watson Marie MD PCP: Ruth Clark DO Status: ADM IN Y [id number] Problem List (1) Cellulitis of trunk Status: Acute (2) Bacteremia due to group B Streptococcus Status: Chronic (3) Cancer of breast, intraductal Status: Chronic (4) Diabetes mellitus type II, controlled Status: Chronic (5) History of cigarette smoking unknown Status: Chronic (6) Hyperlipidemia Status: Chronic (7) Hypertension Status: Chronic (8) Obesity Status: Chronic (9) Rheumatoid arthritis Status: Chronic (10) Severe sepsis Status: Acute History of Present Illness Date of Admission: 03/01/18 Chief Complaint: Warmth and erythema on anterior trunk The patient is a 62 year old F with history of breast CA status post mastectomy with neoadjuvant chemotherapy currently on anastrozole, history of recurrent streptococcal skin infection who presented with warmth and erythema involving the anterior trunk.. Did notice her symptoms on the morning of her presentation. Patient in addition did experience fever chills as well as palpitations. She had recently completed antibiotic therapy for cellulitis. An assessment of severe sepsis was made treatment initiated per protocol admitted for further inpatient management. Past Medical History Past Medical History (Chronic Problems): Chronic Problems Cancer of breast, intraductal (Chronic) Bacteremia due to group B Streptococcus (Chronic) Rheumatoid arthritis (Chronic) Obesity (Chronic) History of cigarette smoking unknown (Chronic) Diabetes mellitus type II, controlled (Chronic) Hyperlipidemia (Chronic) Hypertension (Chronic) Allergies shellfish derived Allergy (Mild, Verified 03/01/18 10:31) Hives iodine Allergy (Verified 03/01/18 10:31) Hives liraglutide [From Victoza] Adverse Reaction (Verified 03/01/18 10:31) Nausea, VOMITING IV DYE Allergy (Mild, Uncoded 03/01/18 10:31) Hives Home Medications: Ambulatory Orders Medication Instructions Recorded Butalbital/Aspirin/Caffeine 1 tab PO DAILY PRN PRN 03/21/13 [Fiorinal 50-325-40 mg Capsule] Fluoxetine [Prozac] 20 mg PO DAILY 03/21/13 Multivitamins,Therapeutic 1 tablet PO QHS 03/21/13 Surgical History: - - Breast biopsy Heart cath Psychiatric History: No pertinent psych hx TRACK REPAIRER 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 Dyspnea Respiratory: Denies: Cough, Shortness of breath at rest, Shortness of breath upon exertion, Sputum production Gastrointestinal: Denies: Abdominal Pain, Hematemesis, Hematochezia, Nausea, Melena, Vomiting Genitourinary: Denies: Dysuria, Frequency, Hematuria, Urgency Musculoskeletal: Denies: Joint Pain, Joint Tenderness Skin: Reports: Rash Neurological: Denies: Focal weakness, Numbness, Tingling Psychiatric: Denies: Homicidal Ideations, Suicidal Ideations Hematologic/ Lymphatic: Denies: Easy Bruising, Easy Bleeding VTE Information - Inpt Only VTE Present on Admission: No VTE Mechan Device Prophylaxis: Knee High MURALI Hose VTE Pharm Prophylaxis ordered?: Yes Patient Problems: Active and Suspected Problems Severe sepsis (Acute) Objective: GENERAL: cooperative HEENT: Atraumatic; moist oral mucosa EYES; Anicteric, Normal Conjunctiva NECK; supple, normal thyroid, no distended JVD. RESPIRATORY: Diminished to auscultation bilaterally, CARDIOVASCULAR: Regular S1 S2, tachycardic GI: soft, non-tender, normoactive bowel sounds, : No Renal angle tenderness; EXTREMITIES: No edema, no clubbing, no cyanosis. MUSCULOSKELETAL: No Joint Tenderness; no muscle waisting NEURO: Awake; no lateralizing signs. 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 An assessment of severe sepsis made admitted to regular nursing floor for further management 1. Severe sepsis secondary to suspected streptococcal anterior abdominal wall cellulitis. Admitted to regular nursing floor the sepsis protocol initiated with aggressive IV fluid resuscitation, broad-spectrum antibiotics with Rocephin and vancomycin, monitoring of response to therapy by following lactate levels. Patient has been seen previously by Dr. England consult was placed to him 2. History of invasive ductal left breast carcinoma status post bilateral mastectom followed by neoadjuvant chemotherapy patient is currently on anastrozole. She is followed by Dr. Pantoja as outpatient 3. Diabetes mellitus type 2: Patient is on metformin held on admission please and Accu-Cheks before meals and at bedtime with sliding scale coverage 4. Hypertension-blood pressure controlled, home medications continued with dose adjustment as needed 5. Dyslipidemia-patient is on statin therapy, continued at home dose 6. Depression with anxiety 7. DVT prophylaxis SC Lovenox CODE STATUS full code Code Visit Inpatient E AND M: 14840 Init Hosp L3 03/01/18 1427 <Electronically signed by Watson Marie MD> Date Watson Marie MD Cosigner Signature: Date (if applicable) CC: Watson Marie MD; Ruth Clark DO Signed PROGRESS Observed: 03/01/2018 Status: COMPLETED Source: [place] 1:27 PM [facility] REPOSITORY HNO ID: [id number] Author: Yamilet (Rn) Luciano Service: (none) Author Type: Registered Nurse Type: Progress Notes Filed: 03/08/2018 11:59 AM Note Text: IRB#?[id number]. Randomized on: 02/25/18. ARM: Arm B: Endocrine only. ? Patient is here?for Week V01. ?Physical exam, toxicities, labs and medications reviewed with Harpreet Pantoja D.O. ??Patient meets protocol requirements for treatment. ECOG Score: 0- Fully active, able to carry on all pre-disease performance w/o restriction.? Medications Reviewed: Arimidex, 1 mg daily Tylenol PM 25-500, every bedtime to help with sleep Motrin, 200mg 2x daily for arthritis Glucophage, 500mg, 2x daily for diabetes Prilosec, 40mg, daily for reflux Prozac, 20mg, daily for depression she has had since menopause Multivitamin daily Calcium with vit. D, 600/200, daily Calm supplement daily, have asked patient to bring to make sure ok Starts just started a Probiotic and will bring in bottle at next visit PRN: Tramadol, 50mg if needed for arthritis after taking the Motrin, doesn't use often OQI-Cayjsjyu-Tfmfhllxqs, as needed for chronic H/A, doesn't use often Tylenol, 500mg as needed for H/A or arthritis not relieved by above medication Lasix, 20mg and K-dur, 20mg if needed for leg edema. Issue that started with chemotherapy (phone note 11/12/17). Has not used any since before Thanksgiving. ? Does not take/use: Melatonin Imitrex Emla cream Leora States she finished her Acycolvir on 02/25/18 Toxicities: CTCAE V. 4 Fatigue, grade 1 Cellulitis, Resolved 01/30/18. Myalgia, bilateral hand, grade 1 due to Psoriatic Arthritis Sensory neuropathy, grade 1, in tip of Right thumb only. Decreased appetite, grade 1 since chemotherapy. Getting better but not 100% Shingles, grade 2, Unrelated to any treatment. Start date: 02/18/18 and Resolved: 02/22/18. Denies any further issues. She states she really only felt a little more fatigued when it started. Patient denies other issues or complaints. Research Labs: (Time/Type/Sent to): ? 3- 10ml, lavender top tubes drawn (V01 kit). 1 10ml lavender top sent out ambient via kit and air bill provided (Pharmacogenetics). The other 2 lavender tops to lab for processing (Plasma for Biomarkers). Plasma into 2- 3.5 plastic vial and 1-8ml plastic vial ? The plastic vials chance stored in ?-24c freezer until shipment on dry ice. ? QOL / Questionnaires: completed ? Patient is post-menopausal. ? Diary booklet for Arimidex given to patient with instruction and asked to return at next visit. Today will be V01 start date but for clarification, patient started Arimidex on 01/21/18. Patient to return to clinic in 4 weeks. (V03) with labs. Patient aware that I will call her in 2 weeks for update in status per protocol. Patient has contact information if any needs or questions in the interim. Patient agreeable with plan. Yamilet Wolf RN Observed: 03/01/2018 Status: F Source: [place] CULTURE, BLOOD (WB) 12:15 PM [facility] REPOSITORY POSITIVE ANAEROBIC BLOOD CULTURE FROM SET DRAWN IN ER BY JIM 1215PM PRELIM GRAM STAIN=GRAM POS COCCI IN CHAINS CALLED TO [facility] MS-3 BY [facility] 03-01-18 AT 2044PM READ BACK BY SAME PLEASE REFER TO BC218 FOR SENSITIVITY PRESUMPTIVE STREP AGALACTIAE No anaerobic bacteria isolated. ORGANISM 1: Streptococcus agalactiae (B) Performed By: #### M200.1000 #### [facility] [address] [place], [address] CBC W/DIFF, AUTOMATED Collected: 03/01/2018 Status: F Source: [place] 11:15 AM [facility] REPOSITORY TYPE CODE TESTS RESULT OUT OF RANGE REFERENCE UNITS LAB L100.1000 4.4-11.0 K/mm3 High WBC 13.8 LAB L100.1200 4.2-5.4 M/mm3 Normal RBC 4.59 LAB L100.1300 12.0-15.0 g/dl Normal HGB 12.4 LAB L100.1400 37-47 % Normal HCT 37.9 LAB L100.1500 81-99 fL Normal MCV 82.6 LAB L100.1600 27.0-32.0 pg Normal MCH 27.0 LAB L100.1700 32-36 g/gl Normal MCHC 32.7 LAB L100.1810 11.6-14.6 % Normal RDW CV 14.4 LAB L100.1820 35.1-43.9 fl Normal RDW SD 42.3 LAB L100.1900 150-450 K/mm3 Normal PLT 206 LAB L100.2000 6.2-12.0 fl Normal MPV 8.8 LAB L100.2100 47-70 % High NEUT% 93.3 LAB L100.2200 19-41 % Low LY% 2.3 LAB L100.2300 0-10 % Normal MONO% 4.0 LAB L100.2400 0-5 % Normal EO% 0.1 LAB L100.2500 0-1 % Normal BASO% 0.1 LAB L100.2550 0.0-0.9 % Normal IM GRAN % 0.200 Result Comment: IG% - Immature Granulocytes (promyelocytes, myelocytes and metamyelocytes) > 1% indicates that a LEFT SHIFT is Present. LAB L100.2620 2.0-7.7 X10 3/uL High Absolute Neut 12.9 LAB L100.2720 0.83-4.51 X10 3/ul Low Absolute Lymph 0.32 Performed By: #### L100.0100 #### [facility] [place], [address] PROTHROMBIN TIME W/INR Collected: 03/01/2018 Status: F Source: [place] 11:15 AM [facility] REPOSIT[facility] TYPE CODE TESTS RESULT OUT OF RANGE REFERENCE UNITS LAB L300.4150 11.7-14.9 SECONDS Normal PROTIME 13.2 LAB L300.4200 Normal INR 1.0 Performed By: #### L300.3900, L300.4310 #### [facility] [address] [place], [address] PARTIAL THROMBOPLAST Collected: 03/01/2018 Status: F Source: [place] TIME 11:15 AM [facility] REPOSIT[facility] TYPE CODE TESTS RESULT OUT OF REFERENCE UNITS RANGE LAB L300.4310 24.1-36.2 Seconds Low PTT 23.5 Performed By: #### L300.3900, L300.4310 #### [facility] [address] [place], [address] COMPREHENSIVE METABOLIC Collected: 03/01/2018 Status: F Source: [place] PROFIL 11:15 AM [facility] REPOSITORY TYPE CODE TESTS RESULT OUT OF RANGE REFERENCE UNITS LAB L501.0100 74-106 mg/dL High GLU 157 Result Comment: Fasting Glucose result greater than or equal to 126 mg/dL suggests DIABETES MELLITUS per A.D.A. criteria. Please note revised GLUCOSE reference range effective 2017. LAB L501.1000 7-18 mg/dL Normal BUN 13 LAB L501.1100 0.55-1.02 mg/dL Normal CREAT,SERUM 0.82 Result Comment: The validity of the calculated GFR AND GFRAA in patients over 70 years has not been determined. Clinical correlation is essential. LAB L501.1110 >60 mL/min Normal EST GFR 75 Result Comment: Non- GFR Calc LAB L501.1115 >60 mL/min Normal EST GFR - AA 91 Result Comment: GFR Calc LAB L501.1255 ml/min Normal Estimated CRCL 53.68 LAB L501.1300 10-20 RATIO Normal BUN/CRE 15.9 LAB L501.1500 6.4-8. g/dL Normal 2 T PROT 7.5 LAB L501.1800 3.2-5. g/dL Normal 0 ALB 4.0 LAB L501.1950 2.2-4. g/dL Normal 2 GLOB 3.5 LAB L501.2000 0.9-2. RATIO Normal 4 A/G 1.1 LAB L501.2200 8.5-10 mg/dL Normal .1 CA 9.1 LAB L501.4100 15-37 U/L Normal AST 16 LAB L501.4305 45-117 U/L Normal ALK P 90 LAB L501.4405 13-56 U/L Normal ALT 24 LAB L501.4600 0.20-1 mg/dL Normal .00 T BILI 0.40 LAB L501.5300 136-14 mmol/L Normal 5 NA 140 LAB L501.5600 3.5-5. mmol/L Normal 1 K 4.2 LAB L501.5900 98-107 mmol/L Normal CL 102 LAB L501.6100 21.0-3 mmol/L Normal 2.0 CO2 28.0 LAB L501.6200 5-15 Normal GAP 10 Performed By: #### L500.4050 #### [facility] [address] [place], [address] LACTIC ACID Collected: 03/01/2018 Status: F Source: [place] 11:15 AM [facility] REPOSIT[facility] Order Comment: Yes/No query for Sepsis Lactate Rule Y TYPE CODE TESTS RESULT OUT OF REFERENCE UNITS RANGE LAB L503.6005 0.4-2.0 mmol/L High LACTIC ACID 2.1 Result Comment: Critical [facility]: 12:11:33 03/01/2018 by: Ayesha Performed By: #### L503.6005 #### [facility] [address] [facility] [place], [address] Observed: 03/01/2018 Status: F Source: [place] CULTURE, BLOOD (WB) 11:15 AM [facility] REPOSITORY BC BLOOD CULTURE = NO ORGANISMS SEEN RESULTS CALLED TO EULALIO POTTS 03/01/18 1605 Kalin Glez. REPORT READ BACK BY EULALIO. ANAEROBIC BOTTLE WENT POSITIVE AGAIN. PRELIM GRAM STAIN=GRAM POSITIVE COCCI IN CHAINS. SOILA BY JIM ED 1115AM. CALLED TO MS-3 CHINO VILLAREAL RN BY [facility] 03-01-18 AT 2015PM. READ BACK BY STEVE. AEROBIC BOTTLE POSITIVE: GRAM STAIN= GRAM POSITIVE COCCI IN CHAINS CRITICAL VALUE VERIFIED. CALLED TO GEORGE SHAFER 03/02/18 0534 Ami Devine. RESULTS READ BACK BY SAME . No anaerobic bacteria isolated. ORGANISM 1: Streptococcus agalactiae (B) Amount Growth Growth Streptococcus agalactiae (B): REACTION Ampicillin $ <=0.25 S Benzylpenicillin NF 0.12 S Ceftriaxone (other dx) $ <=0.12 S Clindamycin $$ <=0.25 S Inducable Clindamycin Resistan NEG Linezolid $$$$ <=2 S Vancomycin $ 0.5 S (NF) indicates non-formulary drug at [facility]. Approval by Infectious Disease Specialist required before non-formulary drugs may be ordered and/or dispensed. * CLSI guidelines does not recommend testing of cephalosporins. This interpretation is deduced from Beta-lactam/penicillin results. Performed By: #### M200.1000, M100.636 #### [facility] [address] [facility] [place], [address] Observed: 03/01/2018 Status: F Source: [facility] GPC ID 11:15 AM [facility] GPC ID Staphylococcus sp. Not Detected Enterococcus sp. Not Detected Streptococcus spp. Streptococcus agalactiae (Grp. B. Strep) Listeria spp Not Detected Olman/vanB Not Detected mecA Not Detected NAAT METHOD Testing was performed using nucleic acid amplification ORGANISM 1: Streptococcus agalactiae (B) Performed By: #### M200.1000, M100.636 #### [facility] [address] [facility] [place], [address] CNOVSP Observed: 03/01/2018 Status: COMPLETED Source: [place] 10:00 AM [facility] REPOSITORY Visit (SP) Office ([place]) JESSICA RODRIGUEZ ([id number]) 1955 F Date Time Provider Department 03/01/18 10:00 AM RIA DEE During your visit today, we recorded the following information about you: Temperature Pulse Blood pressure Weight 98.5 degrees 66/minute 119/60 82.6 kg Ria Dee, KRYSTIN.FORGING MACHINE OPERATOR 03/01/2018 10:37 AM Signed Chief Complaint Patient presents with: Established Patient HPI: Jessica Rodriguez is a 62 year old female who presents here today for complaints of redness to abdomen that started this morning. See phone note. Per Dr. Pantoja's previous note: H/o diabetes and psoriatic arthritis. ? Patient had a screening mammogram performed on 03/22/2017 (only 3 months past annual date of previous study). There was a new mass identified in the left breast as being indeterminate. Further studies were recommended. ? Diagnostic imaging done on 03/28/2017 demonstrated a 3 cm irregular mass in left breast consistent with carcinoma and was highly suggestive of malignancy. ? Underwent core needle biopsy on 2017. ? Pathology: Left breast, ultrasound-guided needle core biopsy: Invasive ductal carcinoma, nuclear grade 3 (1 cm in greatest length). See comment. ? ER (clone 6F11) >95%, strong RI (clone 16/1E2) variable, 0-11%, weak Her-2Neu (clone CB11) 1+ ? Underwent left-sided mastectomy with left sentinel axillary lymph node biopsy along with prophylactic right-sided mastectomy on 04/20/2017. ? Pathology: FROZEN SECTION DIAGNOSIS A. Left axillary sentinel lymph nodes, biopsy: Three out of three lymph nodes positive for macrometastatic carcinoma. ? MICROSCOPIC DIAGNOSIS A. Left axillary sentinel lymph nodes, biopsy: Three out of three lymph nodes positive for macrometastatic carcinoma. See comment. B. Left breast, mastectomy: Invasive ductal carcinoma. C. Right breast: Focal intraductal hyperplasia without atypia. Negative for carcinoma in the sections examined. D. Extra skin and tissue left breast: Negative for carcinoma. ? INVASIVE BREAST CANCER SUMMARY: (Including specimen A AND B) Specimen ? total breast (including nipple and skin). Procedure ? total mastectomy (including nipple and skin). Lymph node sampling ? sentinel lymph nodes Specimen integrity ? single intact specimen. Specimen laterality - left Tumor size ? 3.5 x 3.3 x 3 cm Tumor focality ? single focus of invasive carcinoma Macroscopic and Microscopic extent of tumor: Skin ? invasive carcinoma does not invade into the dermis or epidermis. Nipple ? ductal carcinoma in situ does not nipple epidermis. Skeletal muscle ? no skeletal muscle present. Ductal carcinoma in situ (DCIS) ? no ductal carcinoma in situ is present. Lobular carcinoma in situ (LCIS) ? not identified Histologic type of invasive carcinoma ? invasive ductal carcinoma (no special type). Histologic Grade ([place] grade): Glandular/tubular differentiation - score 3 Nuclear pleomorphism - score 3 Mitotic count ? score 2 Overall grade - 3 (score of 8) Margins - Margins uninvolved by invasive carcinoma. The invasive carcinoma is 1.5 cm away from the closest posterior margin. Treatment effect: Response to presurgical (neoadjuvant) therapy - no known presurgical therapy. Lymph-Vascular invasion ? not identified Dermal lymph-vascular invasion - not identified Lymph nodes: Number of sentinel lymph nodes examined - 3 Total number of lymph nodes examined (sentinel and nonsentinel) - 3 Number of lymph nodes with macrometastases - 3 Number of lymph nodes with micrometastases and isolated tumor cells - 0 Size of largest metastatic deposit ? 3.6 cm Extranodal extension ? present, focal (0.4 cm in greatest dimension) Distance metastasis ? not applicable Additional pathologic findings ? fibrocystic changes and intraductal hyperplasia without atypia. Ancillary studies - previously performed on section of tumor ([id number] / [id number]). ER ? positive (>95%, strong) RI ? positive (variable, 0-11%, weak) Her2 bhavani ? negative (1+) Microcalcifications ? not identified Clinical history - Please make reference to previous specimen ([id number]) left breast, ultrasound-guided needle core biopsy with diagnosis of invasive ductal carcinoma. ? PATHOLOGIC STAGE: pT2 pN1a(sn) Mx The above summary is in compliance with [employer] [place] [employer] (CAP) Cancer Protocols Checklist and [place] Joint Committee on Cancer (AJCC), Staging Manual, 8th Ed. ? COMMENT A. The lymph nodes are almost completely involved by the metastatic tumor. The largest lymph node measures 3.6 cm in greatest dimension. The largest focus of metastasis measures 3.6 cm in greatest dimension. Focal extranodal distention is noted which measures 0.4 cm in greatest dimension. ? Underwent completion axillary dissection 05/27/2017. ? Pathology: MICROSCOPIC DIAGNOSIS A. Left axillary contents, regional lymphadenectomy: Isolated metastatic tumor cells in one of seven lymph nodes. B. ?Dog ear,? excision: Skin with attached fibrofatty tissue with reactive and reparative change and suture granulomas. No evidence of malignancy. ? COMMENT Case has been reviewed in consultation with Dr. Skinner who concurs with the above diagnosis. ? MICROSCOPIC DESCRIPTION Slides are reviewed. A. The largest lymph node contains benign histiocytic proliferation, fibrosis and minimal chronic inflammation consistent with previous biopsy and resection ([id number]). ? Immunohistochemistry ([id number]) supports the presence of isolated metastatic tumor cells in one out of seven lymph nodes. ? Previous therapy: 1) Adjuvant AC followed by Taxol. 2) external beam radiation treatment to the left chest wall, supra-auricular area and axilla completed on 01/02/2018. ? Current therapy: 1) [facility] ? Previous note: Originally developed fever to 101 along with chills on 12/20/2017. She was seen for an office visit on 12/21. Temperature was 102. Patient had exam positive for cellulitis upper abdominal wall across medial aspect of right breast. She had been getting radiation treatment to the left mastectomy site. She was given Rocephin in the office and then 10 days of Augmentin. Symptoms resolved. ? She presented to the ER at [facility] on 01/18 with recurring symptoms of cellulitis. Blood cultures were drawn and she was given 2 g of Rocephin and discharged on Augmentin. The symptoms of cellulitis were confined to the chest and seemed to [place] in the left breast area. However the next day symptoms spread to the abdomen. She will back to the ER. Temperature was 101.7. Blood cultures from 01/18 returned with group B Streptococcus in both sets. Patient was admitted and started on antibiotics. She was seen in consultation by infectious diseases. She continued on ceftriaxone while inpatient through 01/22. She then completed a two-week course of Keflex. ? I was fine until this morning. It just hit me. I'm tired and my stomach is all red again. This is the third time this has happened. Appetite:good yesterday Energy level:none today Denies fevers. +chills. Resp:denies cough or sob Cardiac:denies chest pain/palpitations GI:denies abd pain, +n/v in office today-did not have this prior to visit today, moving bowels regularly :denies dysuria/hematuria Extrem:denies pain Skin:+redness to abdomen Heme:denies bleeding The ROS is otherwise negative. Past medical history, appointments, medications, allergies reviewed. No changes. EXAM: BP 119/60 Pulse 66 Temp 36.9 ?C (98.5 ?F) (Oral) Wt 82.6 kg (182 lb) LMP 02/04/2010 BMI 34.96 kg/m? APPEARANCE tired/ill appearing, alert, in no acute distress, well-hydrated, well nourished. HEART RRR with normal S1 and S2, no murmurs LUNG clear to auscultation ABDOMEN +blanchable erythema to entire abdomen/lower chest, +BS, nt EXTREMITIES No edema NEURO Awake, alert and oriented x 3, Normal gait and No involuntary motions. ASSESSMENT/PLAN: 1. Malignant neoplasm of upper-outer quadrant of left breast in female, estrogen receptor positive (HCC) - ICD9: 174.4, V86.0, ICD10: C50.412, Z17.0 (primary diagnosis) pT2 (3.5 cm; grade 3; no LVI) pN1a (3 of 3 SLNs) MX ER/RI positive, HER2 negative invasive ductal carcinoma the left breast. 2. Cellulitis, unspecified cellulitis site - ICD9: 682.9, ICD10: L03.90 - Abrupt onset of abdominal erythema/fatigue/n/v/chills this morning. - Pt. instructed to go directly to [facility] ED. - Pt. aware to call office with any questions/concerns. The patient indicates understanding of these issues and agrees with the plan. Discussed case with Dr. Pantoja who agrees with treatment plan. Ria Dee, KRYSTIN.FORGING MACHINE OPERATOR Referring Provider: HARPREET PANTOJA [[id number]] Allergies As of Date: 03/01/2018 Noted Allergy Reaction IV DYE (IODINATED CONTRAST- ORAL *05/21/2006 4 - Hives SHELLFISH 05/21/2006 4 - Hives VICTOZA (LIRAGLUTIDE) 03/30/2017 5 - Intolerance Date Reviewed: 03/01/2018 Reviewed by: Ria Dee - Fully Assessed Reason for Visit: Established Patient [[id number]] Primary Visit Diagnosis:Malignant neoplasm of upper-outer quadrant of left breast in female, estrogen receptor positive (HCC) [C50.412, Z17.0] Other Visit Diagnosis:Cellulitis, unspecified cellulitis site [L03.90] Follow-up and Disposition History Recorded Prescriptions as of 03/01/2018 Sig: ANASTROZOLE 1 MG TABLET Take 1 tablet by mouth once d* FUROSEMIDE 20 MG TABLET Take 1 tablet by mouth once d* POTASSIUM CHLORIDE ER 20 MEQ * Take 1 tablet by mouth once d* DIPHENHYDRAMINE 25 MG-ACETAMI* Take 1 tablet by mouth at bed* ONDANSETRON HCL 8 MG TABLET Take 1 tablet by mouth every * OTC NUTRITIONAL SUPPLEMENT calm day IBUPROFEN 200 MG TABLET Take 600 mg by mouth twice da* METFORMIN ER 500 MG TABLET,EX* Take 500 mg by mouth twice da* SUMATRIPTAN 100 MG TABLET Take 100 mg by mouth as neede* OMEPRAZOLE 40 MG CAPSULE,CARLYN* Take 40 mg by mouth once adia* UDIIABDBFL-YZOYVQG-JVEHYPKN 5* Take 1 capsule by mouth once * TRAMADOL 50 MG TABLET Take 50 mg by mouth three lizeth* * FLUOXETINE 20 MG CAPSULE Take 20 mg by mouth once adia* * MULTIVITAMIN TABLET Take one(1) tablet daily. * CALCIUM + D 600 MG (1,500 MG)* Take one(1) tablet twice adia* * TYLENOL EXTRA STRENGTH 500 MG* Take two(2) tablets every six* Medication notes this encounter METFORMIN ER 500 MG TABLET,EXTENDED RELEASE 24 HR >> Loli Addison MA 03/01/2018 9:51 AM >> LOLI ADDISON MA SunMar 01, 2018 9:51 AM Taking one tablet twice daily. MULTIVITAMIN TABLET >> Loli Addison MA 03/01/2018 9:52 AM >> LOLI ADDISON MA SunMar 01, 2018 9:52 AM Taking one tablet daily. 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 Lymphedema [I89.0] INVALID FOR* Examination of participant in clinical trial [Z*INVALID FOR* Herpes zoster without complication [B02.9] INVALID FOR* Encounter Status:Closed by RIA DEE FORGING MACHINE OPERATOR on 03/01/18 PROGRESS Observed: 03/01/2018 Status: COMPLETED Source: [place] 9:55 AM [facility] [place] REPOSITORY HNO ID: [id number] Author: Ria Dee Service: (none) Author Type: Nurse Practitioner Type: Progress Notes Filed: 03/01/2018 10:37 AM Note Text: Chief Complaint Patient presents with: Established Patient HPI: Jessica Rodriguez is a 62 year old female who presents here today for complaints of redness to abdomen that started this morning. See phone note. Per Dr. Pantoja's previous note: H/o diabetes and psoriatic arthritis. ? Patient had a screening mammogram performed on 03/22/2017 (only 3 months past annual date of previous study). There was a new mass identified in the left breast as being indeterminate. Further studies were recommended. ? Diagnostic imaging done on 03/28/2017 demonstrated a 3 cm irregular mass in left breast consistent with carcinoma and was highly suggestive of malignancy. ? Underwent core needle biopsy on 2017. ? Pathology: Left breast, ultrasound-guided needle core biopsy: Invasive ductal carcinoma, nuclear grade 3 (1 cm in greatest length). See comment. ? ER (clone 6F11) >95%, strong RI (clone 16/1E2) variable, 0-11%, weak Her-2Neu (clone CB11) 1+ ? Underwent left-sided mastectomy with left sentinel axillary lymph node biopsy along with prophylactic right-sided mastectomy on 04/20/2017. ? Pathology: FROZEN SECTION DIAGNOSIS A. Left axillary sentinel lymph nodes, biopsy: Three out of three lymph nodes positive for macrometastatic carcinoma. ? MICROSCOPIC DIAGNOSIS A. Left axillary sentinel lymph nodes, biopsy: Three out of three lymph nodes positive for macrometastatic carcinoma. See comment. B. Left breast, mastectomy: Invasive ductal carcinoma. C. Right breast: Focal intraductal hyperplasia without atypia. Negative for carcinoma in the sections examined. D. Extra skin and tissue left breast: Negative for carcinoma. ? INVASIVE BREAST CANCER SUMMARY: (Including specimen A AND B) Specimen ? total breast (including nipple and skin). Procedure ? total mastectomy (including nipple and skin). Lymph node sampling ? sentinel lymph nodes Specimen integrity ? single intact specimen. Specimen laterality - left Tumor size ? 3.5 x 3.3 x 3 cm Tumor focality ? single focus of invasive carcinoma Macroscopic and Microscopic extent of tumor: Skin ? invasive carcinoma does not invade into the dermis or epidermis. Nipple ? ductal carcinoma in situ does not nipple epidermis. Skeletal muscle ? no skeletal muscle present. Ductal carcinoma in situ (DCIS) ? no ductal carcinoma in situ is present. Lobular carcinoma in situ (LCIS) ? not identified Histologic type of invasive carcinoma ? invasive ductal carcinoma (no special type). Histologic Grade ([place] grade): Glandular/tubular differentiation - score 3 Nuclear pleomorphism - score 3 Mitotic count ? score 2 Overall grade - 3 (score of 8) Margins - Margins uninvolved by invasive carcinoma. The invasive carcinoma is 1.5 cm away from the closest posterior margin. Treatment effect: Response to presurgical (neoadjuvant) therapy - no known presurgical therapy. Lymph-Vascular invasion ? not identified Dermal lymph-vascular invasion - not identified Lymph nodes: Number of sentinel lymph nodes examined - 3 Total number of lymph nodes examined (sentinel and nonsentinel) - 3 Number of lymph nodes with macrometastases - 3 Number of lymph nodes with micrometastases and isolated tumor cells - 0 Size of largest metastatic deposit ? 3.6 cm Extranodal extension ? present, focal (0.4 cm in greatest dimension) Distance metastasis ? not applicable Additional pathologic findings ? fibrocystic changes and intraductal hyperplasia without atypia. Ancillary studies - previously performed on section of tumor ([id number] / [id number]). ER ? positive (>95%, strong) RI ? positive (variable, 0-11%, weak) Her2 bhavani ? negative (1+) Microcalcifications ? not identified Clinical history - Please make reference to previous specimen ([id number]) left breast, ultrasound-guided needle core biopsy with diagnosis of invasive ductal carcinoma. ? PATHOLOGIC STAGE: pT2 pN1a(sn) Mx The above summary is in compliance with [employer] [place] [employer] (CAP) Cancer Protocols Checklist and [place] Joint Committee on Cancer (AJCC), Staging Manual, 8th Ed. ? COMMENT A. The lymph nodes are almost completely involved by the metastatic tumor. The largest lymph node measures 3.6 cm in greatest dimension. The largest focus of metastasis measures 3.6 cm in greatest dimension. Focal extranodal distention is noted which measures 0.4 cm in greatest dimension. ? Underwent completion axillary dissection 05/27/2017. ? Pathology: MICROSCOPIC DIAGNOSIS A. Left axillary contents, regional lymphadenectomy: Isolated metastatic tumor cells in one of seven lymph nodes. B. ?Dog ear,? excision: Skin with attached fibrofatty tissue with reactive and reparative change and suture granulomas. No evidence of malignancy. ? COMMENT Case has been reviewed in consultation with Dr. Skinner who concurs with the above diagnosis. ? MICROSCOPIC DESCRIPTION Slides are reviewed. A. The largest lymph node contains benign histiocytic proliferation, fibrosis and minimal chronic inflammation consistent with previous biopsy and resection ([id number]). ? Immunohistochemistry ([id number]) supports the presence of isolated metastatic tumor cells in one out of seven lymph nodes. ? Previous therapy: 1) Adjuvant AC followed by Taxol. 2) external beam radiation treatment to the left chest wall, supra-auricular area and axilla completed on 01/02/2018. ? Current therapy: 1) Anastrozole on trial. ? Previous note: Originally developed fever to 101 along with chills on 12/20/2017. She was seen for an office visit on 12/21. Temperature was 102. Patient had exam positive for cellulitis upper abdominal wall across medial aspect of right breast. She had been getting radiation treatment to the left mastectomy site. She was given Rocephin in the office and then 10 days of Augmentin. Symptoms resolved. ? She presented to the ER at [facility] on 01/18 with recurring symptoms of cellulitis. Blood cultures were drawn and she was given 2 g of Rocephin and discharged on Augmentin. The symptoms of cellulitis were confined to the chest and seemed to [place] in the left breast area. However the next day symptoms spread to the abdomen. She will back to the ER. Temperature was 101.7. Blood cultures from 01/18 returned with group B Streptococcus in both sets. Patient was admitted and started on antibiotics. She was seen in consultation by infectious diseases. She continued on ceftriaxone while inpatient through 01/22. She then completed a two-week course of Keflex. ? I was fine until this morning. It just hit me. I'm tired and my stomach is all red again. This is the third time this has happened. Appetite:good yesterday Energy level:none today Denies fevers. +chills. Resp:denies cough or sob Cardiac:denies chest pain/palpitations GI:denies abd pain, +n/v in office today-did not have this prior to visit today, moving bowels regularly :denies dysuria/hematuria Extrem:denies pain Skin:+redness to abdomen Heme:denies bleeding The ROS is otherwise negative. Past medical history, appointments, medications, allergies reviewed. No changes. EXAM: BP 119/60 Pulse 66 Temp 36.9 ?C (98.5 ?F) (Oral) Wt 82.6 kg (182 lb) LMP 02/04/2010 BMI 34.96 kg/m? APPEARANCE tired/ill appearing, alert, in no acute distress, well-hydrated, well nourished. HEART RRR with normal S1 and S2, no murmurs LUNG clear to auscultation ABDOMEN +blanchable erythema to entire abdomen/lower chest, +BS, nt EXTREMITIES No edema NEURO Awake, alert and oriented x 3, Normal gait and No involuntary motions. ASSESSMENT/PLAN: 1. Malignant neoplasm of upper-outer quadrant of left breast in female, estrogen receptor positive (HCC) - ICD9: 174.4, V86.0, ICD10: C50.412, Z17.0 (primary diagnosis) pT2 (3.5 cm; grade 3; no LVI) pN1a (3 of 3 SLNs) MX ER/RI positive, HER2 negative invasive ductal carcinoma the left breast. 2. Cellulitis, unspecified cellulitis site - ICD9: 682.9, ICD10: L03.90 - Abrupt onset of abdominal erythema/fatigue/n/v/chills this morning. - Pt. instructed to go directly to [facility] ED. - Pt. aware to call office with any questions/concerns. The patient indicates understanding of these issues and agrees with the plan. Discussed case with Dr. Pantoja who agrees with treatment plan. Ria Dee APRN.FORGING MACHINE OPERATOR PROGRESS Observed: 02/22/2018 Status: COMPLETED Source: [place] 11:53 AM [facility] REPOSITORY O ID: [id number] Author: Harpreet Pantoja Service: (none) Author Type: Physician Type: Progress Notes Filed: 02/22/2018 12:14 PM Note Text: Diagnosis: 1) Breast cancer. HPI: The patient is a 62-year-old female was a past medical history significant for diabetes and psoriatic arthritis. Patient had a screening mammogram performed on 03/22/2017 (only 3 months past annual date of previous study). There was a new mass identified in the left breast as being indeterminate. Further studies were recommended. Diagnostic imaging done on 03/28/2017 demonstrated a 3 cm irregular mass in left breast consistent with carcinoma and was highly suggestive of malignancy. Underwent core needle biopsy on 2017. Pathology: Left breast, ultrasound-guided needle core biopsy: Invasive ductal carcinoma, nuclear grade 3 (1 cm in greatest length). See comment. ER (clone 6F11) >95%, strong RI (clone 16/1E2) variable, 0-11%, weak Her-2Neu (clone CB11) 1+ Underwent left-sided mastectomy with left sentinel axillary lymph node biopsy along with prophylactic right-sided mastectomy on 04/20/2017. Pathology: FROZEN SECTION DIAGNOSIS A. Left axillary sentinel lymph nodes, biopsy: Three out of three lymph nodes positive for macrometastatic carcinoma. MICROSCOPIC DIAGNOSIS A. Left axillary sentinel lymph nodes, biopsy: Three out of three lymph nodes positive for macrometastatic carcinoma. See comment. B. Left breast, mastectomy: Invasive ductal carcinoma. C. Right breast: Focal intraductal hyperplasia without atypia. Negative for carcinoma in the sections examined. D. Extra skin and tissue left breast: Negative for carcinoma. INVASIVE BREAST CANCER SUMMARY: (Including specimen A AND B) Specimen ? total breast (including nipple and skin). Procedure ? total mastectomy (including nipple and skin). Lymph node sampling ? sentinel lymph nodes Specimen integrity ? single intact specimen. Specimen laterality - left Tumor size ? 3.5 x 3.3 x 3 cm Tumor focality ? single focus of invasive carcinoma Macroscopic and Microscopic extent of tumor: Skin ? invasive carcinoma does not invade into the dermis or epidermis. Nipple ? ductal carcinoma in situ does not nipple epidermis. Skeletal muscle ? no skeletal muscle present. Ductal carcinoma in situ (DCIS) ? no ductal carcinoma in situ is present. Lobular carcinoma in situ (LCIS) ? not identified Histologic type of invasive carcinoma ? invasive ductal carcinoma (no special type). Histologic Grade ([place] grade): Glandular/tubular differentiation - score 3 Nuclear pleomorphism - score 3 Mitotic count ? score 2 Overall grade - 3 (score of 8) Margins - Margins uninvolved by invasive carcinoma. The invasive carcinoma is 1.5 cm away from the closest posterior margin. Treatment effect: Response to presurgical (neoadjuvant) therapy - no known presurgical therapy. Lymph-Vascular invasion ? not identified Dermal lymph-vascular invasion - not identified Lymph nodes: Number of sentinel lymph nodes examined - 3 Total number of lymph nodes examined (sentinel and nonsentinel) - 3 Number of lymph nodes with macrometastases - 3 Number of lymph nodes with micrometastases and isolated tumor cells - 0 Size of largest metastatic deposit ? 3.6 cm Extranodal extension ? present, focal (0.4 cm in greatest dimension) Distance metastasis ? not applicable Additional pathologic findings ? fibrocystic changes and intraductal hyperplasia without atypia. Ancillary studies - previously performed on section of tumor ([id number] / [id number]). ER ? positive (>95%, strong) RI ? positive (variable, 0-11%, weak) Her2 bhavani ? negative (1+) Microcalcifications ? not identified Clinical history - Please make reference to previous specimen ([id number]) left breast, ultrasound-guided needle core biopsy with diagnosis of invasive ductal carcinoma. PATHOLOGIC STAGE: pT2 pN1a(sn) Mx The above summary is in compliance with [employer] [place] [employer] (CAP) Cancer Protocols Checklist and [place] Joint Committee on Cancer (AJCC), Staging Manual, 8th Ed. COMMENT A. The lymph nodes are almost completely involved by the metastatic tumor. The largest lymph node measures 3.6 cm in greatest dimension. The largest focus of metastasis measures 3.6 cm in greatest dimension. Focal extranodal distention is noted which measures 0.4 cm in greatest dimension. Underwent completion axillary dissection 05/27/2017. Pathology: MICROSCOPIC DIAGNOSIS A. Left axillary contents, regional lymphadenectomy: Isolated metastatic tumor cells in one of seven lymph nodes. B. ?Dog ear,? excision: Skin with attached fibrofatty tissue with reactive and reparative change and suture granulomas. No evidence of malignancy. COMMENT Case has been reviewed in consultation with Dr. Skinner who concurs with the above diagnosis. MICROSCOPIC DESCRIPTION Slides are reviewed. A. The largest lymph node contains benign histiocytic proliferation, fibrosis and minimal chronic inflammation consistent with previous biopsy and resection ([id number]). Immunohistochemistry ([id number]) supports the presence of isolated metastatic tumor cells in one out of seven lymph nodes. Previous therapy: 1) Adjuvant AC followed by Taxol. 2) external beam radiation treatment to the left chest wall, supra-auricular area and axilla completed on 01/02/2018. Current therapy: 1) Anastrozole on [facility] trial. Presents for ongoing oncologic management. Interim history: Was having an ache in the RLQ area for several days. Sunday had some burning and itch the area an when went to scratch, found a vesicle that she scratched open. Was seen at PCP's office and diagnosed with shingles. Started on acyclovir. Had only two vesicles. burn and itch markedly better. PMH, medications and allergies personally reviewed by me today. Any changes documented in appropriate section. PHYSICAL EXAM: Vitals: Blood pressure 125/51, pulse 75, temperature 36.9 ?C (98.4 ?F), weight 85.3 kg (188 lb), last menstrual period 02/04/2010. Well-appearing and in no acute distress. EYES: Sclerae are anicteric bilaterally. RESPIRATORY: Inspiratory breath sounds are of normal intensity in all peters. No rales, wheezes or rhonchi. CARDIOVASCULAR: Rhythm is regular. Normal intensity S1/S2. There is no gallop or murmur. ABDOMEN: The abdomen is nondistended. No organomegaly. No tenderness. SKIN: Two scabbed vesicles of the skin in the RLQ. Largest of the two measures 5 mm. 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 -Staging form in problem list previously completed. -KPS is 90%. -She tolerated adjuvant chemotherapy very well. -No concerning symptoms or physical exam findings suggestive of recurrence. -Tolerating anastrozole well with no symptomatic side effect. -Again discussed the rationale and logistics of the [facility] trial with her. Plan: -Labs and EKG today. -Randomization following that. -Continue anastrozole. -OV as per clinical protocol. (E04.9) Goiter, nodular Assessment: -Was stable on follow up. Plan: -Repeat ultrasound 10/2018. ((B02.9) Herpes zoster without complication Assessment: -Lesions crusted and no weeping. -Pain and itch significantly improved. Plan: -Complete course of acyclovir. -No indication for usp prophylaxis as of now. Harpreet Pantoja DO CNOVSP Observed: 02/22/2018 Status: COMPLETED Source: [place] 11:40 AM [facility] REPOSITORY Visit (SP) Office ([place]) JESSICA RODRIGUEZ ([id number]) 1955 F Date Time Provider Department 02/22/18 11:40 AM HARPREET PANTOJA During your visit today, we recorded the following information about you: Temperature Pulse Blood pressure Weight 98.4 degrees 75/minute 125/51 85.3 kg Harpreet Pantoja DO 02/22/2018 12:14 PM Signed Diagnosis: 1) Breast cancer. HPI: The patient is a 62-year-old female was a past medical history significant for diabetes and psoriatic arthritis. Patient had a screening mammogram performed on 03/22/2017 (only 3 months past annual date of previous study). There was a new mass identified in the left breast as being indeterminate. Further studies were recommended. Diagnostic imaging done on 03/28/2017 demonstrated a 3 cm irregular mass in left breast consistent with carcinoma and was highly suggestive of malignancy. Underwent core needle biopsy on 2017. Pathology: Left breast, ultrasound-guided needle core biopsy: Invasive ductal carcinoma, nuclear grade 3 (1 cm in greatest length). See comment. ER (clone 6F11) >95%, strong RI (clone 16/1E2) variable, 0-11%, weak Her-2Neu (clone CB11) 1+ Underwent left-sided mastectomy with left sentinel axillary lymph node biopsy along with prophylactic right-sided mastectomy on 04/20/2017. Pathology: FROZEN SECTION DIAGNOSIS A. Left axillary sentinel lymph nodes, biopsy: Three out of three lymph nodes positive for macrometastatic carcinoma. MICROSCOPIC DIAGNOSIS A. Left axillary sentinel lymph nodes, biopsy: Three out of three lymph nodes positive for macrometastatic carcinoma. See comment. B. Left breast, mastectomy: Invasive ductal carcinoma. C. Right breast: Focal intraductal hyperplasia without atypia. Negative for carcinoma in the sections examined. D. Extra skin and tissue left breast: Negative for carcinoma. INVASIVE BREAST CANCER SUMMARY: (Including specimen A AND B) Specimen ? total breast (including nipple and skin). Procedure ? total mastectomy (including nipple and skin). Lymph node sampling ? sentinel lymph nodes Specimen integrity ? single intact specimen. Specimen laterality - left Tumor size ? 3.5 x 3.3 x 3 cm Tumor focality ? single focus of invasive carcinoma Macroscopic and Microscopic extent of tumor: Skin ? invasive carcinoma does not invade into the dermis or epidermis. Nipple ? ductal carcinoma in situ does not nipple epidermis. Skeletal muscle ? no skeletal muscle present. Ductal carcinoma in situ (DCIS) ? no ductal carcinoma in situ is present. Lobular carcinoma in situ (LCIS) ? not identified Histologic type of invasive carcinoma ? invasive ductal carcinoma (no special type). Histologic Grade ([place] grade): Glandular/tubular differentiation - score 3 Nuclear pleomorphism - score 3 Mitotic count ? score 2 Overall grade - 3 (score of 8) Margins - Margins uninvolved by invasive carcinoma. The invasive carcinoma is 1.5 cm away from the closest posterior margin. Treatment effect: Response to presurgical (neoadjuvant) therapy - no known presurgical therapy. Lymph-Vascular invasion ? not identified Dermal lymph-vascular invasion - not identified Lymph nodes: Number of sentinel lymph nodes examined - 3 Total number of lymph nodes examined (sentinel and nonsentinel) - 3 Number of lymph nodes with macrometastases - 3 Number of lymph nodes with micrometastases and isolated tumor cells - 0 Size of largest metastatic deposit ? 3.6 cm Extranodal extension ? present, focal (0.4 cm in greatest dimension) Distance metastasis ? not applicable Additional pathologic findings ? fibrocystic changes and intraductal hyperplasia without atypia. Ancillary studies - previously performed on section of tumor ([id number] / [id number]). ER ? positive (>95%, strong) RI ? positive (variable, 0-11%, weak) Her2 bhavani ? negative (1+) Microcalcifications ? not identified Clinical history - Please make reference to previous specimen ([id number]) left breast, ultrasound-guided needle core biopsy with diagnosis of invasive ductal carcinoma. PATHOLOGIC STAGE: pT2 pN1a(sn) Mx The above summary is in compliance with [employer] [place] [employer] (CAP) Cancer Protocols Checklist and [place] Joint Committee on Cancer (AJCC), Staging Manual, 8th Ed. COMMENT A. The lymph nodes are almost completely involved by the metastatic tumor. The largest lymph node measures 3.6 cm in greatest dimension. The largest focus of metastasis measures 3.6 cm in greatest dimension. Focal extranodal distention is noted which measures 0.4 cm in greatest dimension. Underwent completion axillary dissection 05/27/2017. Pathology: MICROSCOPIC DIAGNOSIS A. Left axillary contents, regional lymphadenectomy: Isolated metastatic tumor cells in one of seven lymph nodes. B. ?Dog ear,? excision: Skin with attached fibrofatty tissue with reactive and reparative change and suture granulomas. No evidence of malignancy. COMMENT Case has been reviewed in consultation with Dr. Skinner who concurs with the above diagnosis. MICROSCOPIC DESCRIPTION Slides are reviewed. A. The largest lymph node contains benign histiocytic proliferation, fibrosis and minimal chronic inflammation consistent with previous biopsy and resection ([id number]). Immunohistochemistry ([id number]) supports the presence of isolated metastatic tumor cells in one out of seven lymph nodes. Previous therapy: 1) Adjuvant AC followed by Taxol. 2) external beam radiation treatment to the left chest wall, supra-auricular area and axilla completed on 01/02/2018. Current therapy: 1) Anastrozole on trial. Presents for ongoing oncologic management. Interim history: Was having an ache in the RLQ area for several days. Sunday had some burning and itch the area an when went to scratch, found a vesicle that she scratched open. Was seen at PCP's office and diagnosed with shingles. Started on acyclovir. Had only two vesicles. burn and itch markedly better. PMH, medications and allergies personally reviewed by me today. Any changes documented in appropriate section. PHYSICAL EXAM: Vitals: Blood pressure 125/51, pulse 75, temperature 36.9 ?C (98.4 ?F), weight 85.3 kg (188 lb), last menstrual period 02/04/2010. Well-appearing and in no acute distress. EYES: Sclerae are anicteric bilaterally. RESPIRATORY: Inspiratory breath sounds are of normal intensity in all peters. No rales, wheezes or rhonchi. CARDIOVASCULAR: Rhythm is regular. Normal intensity S1/S2. There is no gallop or murmur. ABDOMEN: The abdomen is nondistended. No organomegaly. No tenderness. SKIN: Two scabbed vesicles of the skin in the RLQ. Largest of the two measures 5 mm. 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 -Staging form in problem list previously completed. -KPS is 90%. -She tolerated adjuvant chemotherapy very well. -No concerning symptoms or physical exam findings suggestive of recurrence. -Tolerating anastrozole well with no symptomatic side effect. -Again discussed the rationale and logistics of the [facility] trial with her. Plan: -Labs and EKG today. -Randomization following that. -Continue anastrozole. -OV as per clinical protocol. (E04.9) Goiter, nodular Assessment: -Was stable on follow up. Plan: -Repeat ultrasound 10/2018. ((B02.9) Herpes zoster without complication Assessment: -Lesions crusted and no weeping. -Pain and itch significantly improved. Plan: -Complete course of acyclovir. -No indication for terminal system operator prophylaxis as of now. DO Kathi Mc LPN, LISA 02/22/2018 12:05 PM Signed Est pt., questionable shingles Kathi St LPN Referring Provider: RIA DEE [[id number]] Allergies As of Date: 02/22/2018 Noted Allergy Reaction IV DYE (IODINATED CONTRAST- ORAL *05/21/2006 4 - Hives SHELLFISH 05/21/2006 4 - Hives VICTOZA (LIRAGLUTIDE) 03/30/2017 5 - Intolerance Date Reviewed: 02/22/2018 Reviewed by: Kathi St LPN - Fully Assessed Reason for Visit: Established Patient [[id number]] Primary Visit Diagnosis:Malignant neoplasm of upper-outer quadrant of left breast in female, estrogen receptor positive (HCC) [C50.412, Z17.0] Other Visit Diagnoses:Metastatic cancer to axillary lymph nodes (HCC) [C77.3] Herpes zoster without complication [B02.9] Follow-up and Disposition History Recorded Prescriptions as of 02/22/2018 Sig: ACYCLOVIR 200 MG CAPSULE Take 200 mg by mouth five lizeth* ANASTROZOLE 1 MG TABLET Take 1 tablet by mouth once d* POTASSIUM CHLORIDE ER 20 MEQ * Take 1 tablet by mouth once d* DIPHENHYDRAMINE 25 MG-ACETAMI* Take 1 tablet by mouth at bed* ONDANSETRON HCL 8 MG TABLET Take 1 tablet by mouth every * OTC NUTRITIONAL SUPPLEMENT calm day IBUPROFEN 200 MG TABLET Take 600 mg by mouth twice da* SUMATRIPTAN 100 MG TABLET Take 100 mg by mouth as neede* OMEPRAZOLE 40 MG CAPSULE,CARLYN* Take 40 mg by mouth once adia* CILIDFGFWA-YPAHVTG-TCOYVDQU 5* Take 1 capsule by mouth once * TRAMADOL 50 MG TABLET Take 50 mg by mouth three lzieth* * FLUOXETINE 20 MG CAPSULE Take 20 mg by mouth once adia* * MULTIVITAMIN TABLET Take one(1) tablet daily. * CALCIUM + D 600 MG (1,500 MG)* Take one(1) tablet twice adia* * TYLENOL EXTRA STRENGTH 500 MG* Take two(2) tablets every six* FUROSEMIDE 20 MG TABLET Take 1 tablet by mouth once d* LIDOCAINE-PRILOCAINE 2.5 %-2.* Apply 1 application to affect* MELATONIN 3 MG TABLET Take 6 mg by mouth daily at b* METFORMIN ER 500 MG TABLET,EX* Take 500 mg by mouth twice da* Problem List As Of Date 02/22/2018 Noted Resolved Postmenopausal bleeding [N95.0] INVALID FOR* Ovarian cyst [N83.209] INVALID FOR* Malignant neoplasm of upper-outer quadrant of l*INVALID FOR* 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 Lymphedema [I89.0] INVALID FOR* Examination of participant in clinical trial [Z*INVALID FOR* Herpes zoster without complication [B02.9] INVALID FOR* Visit Notes: >> Kathi St LPN SunFeb 22, 2018 11:58 AM Status: Signed Est pt., questionable shingles Kathi St LPN Encounter Status:Closed by HARPREET PANTOJA DO on 02/22/18 PROGRESS Observed: 02/15/2018 Status: COMPLETED Source: [place] 1:27 PM [facility] REPOSITORY HNO ID: [id number] Author: Yamilet (Rn) Luciano Service: (none) Author Type: Registered Nurse Type: Progress Notes Filed: 02/18/2018 4:33 PM Note Text: Patient in for follow up with Dr. Pantoja. See his note from today. Discussed moving forward with the clinical trial and patient is still interested in participating. Patient re-consented and aware of updates. See consent tab note. EKG repeated today. Cental and Local labs drawn today. CBC and CMP WNL 1 2 ml lavender top (whole blood) with slides and 1 brown vial and 1 clear vial (both serum) sent ambient via [employer] overnight service using air bill and kit provided. Baseline AE's as of today: Fatigue, grade 1 Cellulitis, Resolved. Myalgia, bilateral hand, grade 1 due to Psoriatic Arthritis Sensory neuropathy, grade 1, in tip of Right thumb only. Decreased appetite, grade 1 since chemotherapy. Getting better but not 100% Radiation site completely healed. No issues. Patient denies other issues or complaints. Medications Reviewed: Arimidex, 1 mg daily, started 01/21/18 Tylenol PM 25-500, every bedtime to help with sleep Motrin, 200mg 2x daily for arthritis Glucophage, 500mg, 2x daily for diabetes Prilosec, 40mg, daily for reflux Prozac, 20mg, daily for depression she has had since menopause Multivitamin daily Calcium with vit. D, 600/200, daily Calm supplement daily, have asked patient to bring to make sure ok Starts just started a Probiotic and will bring in bottle at next visit PRN: Tramadol, 50mg if needed for arthritis after taking the Motrin, doesn't use often PXH-Bfeudtke-Cjmjqqhgzr, as needed for chronic H/A, doesn't use often Tylenol, 500mg as needed for H/A or arthritis not relieved by above medication Lasix, 20mg and K-dur, 20mg if needed for leg edema. Issue that started with chemotherapy. Has not used any since before Thanksgiving. Does not take/use: Melatonin Imitrex Emla cream Leora States she finished her Keflex on 02/05/18 Patient is post-menopausal, does not smoke, no alcohol. Medical history: Diabetes Psoriatic arthritis in hands Insomnia Depression Chronic headaches/migraines No other significant history Patient aware that I will be working up eligibility and plan to randomize on 02/18/18. She can expect a phone call on that day and will make a scheduled plan accordingly to treatment course randomized to. Patient agreeable with this plan, denies further questions. Yamilet Wolf RN EKG1 Observed: 02/14/2018 Status: F Source: [place] 1:06 PM [facility] REPOSITORY NAME : JESSICA RODRIGUEZ PID : [id number] : 1955 Gender : Female Race : ORD : Procedure Date : Feb 14 2018 13:06:34 Edit Date : Feb 16 2018 08:23:49 Diagnosis:NORMAL SINUS RHYTHM NORMAL ECG Confirmed by MEGHANA JOHNSON MD ([id number]) on 02/16/2018 8:23:48 AM Ventricular Rate : 60 BPM Atrial Rate : 60 BPM P-R Interval : 152 ms QRS Duration : 72 ms Q-T Interval : 444 ms QTC Calculation(Bezet) : 444 ms P [place] : 43 degrees R [place] : 50 degrees T [place] : 40 degrees Test Reason : Location : 136 : [place] Overread By : MEGHANA JOHNSON MD Edited By : MEGHANA JOHNSON MD Referred By : ALEX, Acquired by : [place] BIRCH CBC AND DIFF Collected: 02/14/2018 Status: F Source: [place] 12:24 PM [facility] REPOSITORY TYPE CODE TESTS RESULT OUT OF REFERENCE UNITS RANGE LAB WWBC 3.70-11.00 k/uL [place] WBC 7.08 LAB WRBC 3.90-5.20 m/uL [place] RBC 4.35 LAB WHGB 11.5-15.5 g/dL [place] Hemoglobin 11.7 LAB WHCT 36.0-46.0 % [place] Hematocrit 36.1 LAB WMCV 80.0-100.0 fL [place] MCV 83.0 LAB WMCH 26.0-34.0 pg [place] MCH 26.9 LAB WMCHC 30.5-36.0 g/dL [place] MCHC 32.4 LAB WRDW 11.5-15.0 % [place] RDW 14.2 LAB WPLT 150-400 k/uL [place] Platelet Cnt 223 LAB WMPV 9.0-12.7 fL [place] MPV 9.1 Result Comment: Test performed at: [facility] [place], [address] [place] [address]. LAB WNEUT % [place] Neut% 71.7 LAB WLYMP % [place] Lymp% 15.8 LAB WMONOC % [place]% 9.5 LAB WEOS % [place] Eos% 2.3 LAB WBASO % [place] Baso% 0.7 LAB WANEUT 1.45-7.50 k/uL [place] Abs Neut 5.08 LAB WALYMP 1.00-4.00 k/uL [place] Abs Lymp 1.12 LAB WAMONO <0.87 k/uL [place] Abs [place] 0.67 LAB WAEOS <0.46 k/uL [place] Abs Eos 0.16 LAB WABASO <0.11 k/uL [place] Abs Baso 0.05 COMP METABOLIC PANEL Collected: 02/14/2018 Status: F Source: [place] 12:24 PM [facility] [place] REPOSITORY TYPE CODE TESTS RESULT OUT OF REFERENCE UNITS RANGE LAB TP 6.3-8.0 g/dL Protein, Total 6.8 LAB ALB 3.9-4.9 g/dL Albumin 4.2 LAB CA 8.5-10.2 mg/dL Calcium, Total 9.8 LAB TBIL 0.2-1.3 mg/dL Bilirubin, Total 0.2 LAB ALKP 34-123 U/L Alkaline Phosphatase 80 LAB AST 13-35 U/L AST 17 LAB GLU 74-99 mg/dL Glucose High 116 LAB BUN 7-21 mg/dL BUN 11 LAB CRET 0.58-0.96 mg/dL Creatinine 0.61 LAB NA 136-144 mmol/L Sodium 138 LAB K 3.7-5.1 mmol/L Potassium 3.9 LAB CL 97-105 mmol/L Chloride 102 LAB CO2 22-30 mmol/L CO2 25 LAB AGAP mmol/L Anion Gap 11 LAB ALT 7-38 U/L ALT 16 LAB GFRAA eGFR- >60 Amer. LAB GFRNAA . eGFR-All Other Races >60 Result Comment: eGFR (Estimated GFR) Units of measure: mL/min/1.73 meters squared eGFR is derived from the reexpressed MDRD Study equation using the following parameters: serum creatinine, age, gender and race. The creatinine assay has been calibrated to be traceable to IDMS. An eGFR <60 mL/min/1.73m2 for >3 months is consistent with chronic kidney disease. Refer to KDOQI guidelines for clinical interpretation. In patients with unstable renal function, e.g. those with acute kidney injury, the eGFR may not accurately reflect actual GFR. CNNURSE Observed: 02/14/2018 Status: COMPLETED Source: [place] 11:30 AM [facility] REPOSITORY Nurse Visit (CAWSTR) JESSICA RODRIGUEZ ([id number]) 1955 F Date Time Provider Department 02/14/18 11:30 AM NURSE CARD ADMIN [facility] CAW[facility] During your visit today, we recorded the following information about you: Emilie Peña MA 02/14/2018 1:27 PM Signed EKG completed and given to Dr Johnson for review. 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) [C77.3] Prescriptions as of 02/14/2018 Sig: CEPHALEXIN 500 MG CAPSULE ANASTROZOLE 1 MG TABLET Take 1 tablet by mouth once d* FUROSEMIDE 20 MG TABLET Take 1 tablet by mouth once d* POTASSIUM CHLORIDE ER 20 MEQ * Take 1 tablet by mouth once d* DIPHENHYDRAMINE 25 MG-ACETAMI* Take 1 tablet by mouth at bed* ONDANSETRON HCL 8 MG TABLET Take 1 tablet by mouth every * LIDOCAINE-PRILOCAINE 2.5 %-2.* Apply 1 application to affect* MELATONIN 3 MG TABLET Take 6 mg by mouth daily at b* OTC NUTRITIONAL SUPPLEMENT calm day IBUPROFEN 200 MG TABLET Take 600 mg by mouth twice da* METFORMIN ER 500 MG TABLET,EX* Take 500 mg by mouth twice da* SUMATRIPTAN 100 MG TABLET Take 100 mg by mouth as neede* OMEPRAZOLE 40 MG CAPSULE,CARLYN* Take 40 mg by mouth once adia* FVYUKZZSTH-FJIOGIU-KOSBWGZG 5* Take 1 capsule by mouth once * TRAMADOL 50 MG TABLET Take 50 mg by mouth three lizeth* * FLUOXETINE 20 MG CAPSULE Take 20 mg by mouth once adia* * MULTIVITAMIN TABLET Take one(1) tablet daily. 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 Lymphedema [I89.0] INVALID FOR* Examination of participant in clinical trial [Z*INVALID FOR* Visit Notes: >> Emilie Peña MA Carol Feb 14, 2018 1:26 PM Status: Signed EKG completed and given to Dr Johnson for review. Emilie Peña MA Follow-up and Disposition History Recorded Encounter Status:Closed by EMILIE PEÑA MA on 02/14/18 PROGRESS Observed: 02/14/2018 Status: COMPLETED Source: [place] 11:15 AM [facility] RE[facility] HNO ID: [id number] Author: Harpreet Pantoja Service: (none) Author Type: Physician Type: Progress Notes Filed: 02/14/2018 11:47 AM Note Text: Diagnosis: 1) Breast cancer. HPI: The patient is a 62-year-old female was a past medical history significant for diabetes and psoriatic arthritis. Patient had a screening mammogram performed on 03/22/2017 (only 3 months past annual date of previous study). There was a new mass identified in the left breast as being indeterminate. Further studies were recommended. Diagnostic imaging done on 03/28/2017 demonstrated a 3 cm irregular mass in left breast consistent with carcinoma and was highly suggestive of malignancy. Underwent core needle biopsy on 2017. Pathology: Left breast, ultrasound-guided needle core biopsy: Invasive ductal carcinoma, nuclear grade 3 (1 cm in greatest length). See comment. ER (clone 6F11) >95%, strong RI (clone 16/1E2) variable, 0-11%, weak Her-2Neu (clone CB11) 1+ Underwent left-sided mastectomy with left sentinel axillary lymph node biopsy along with prophylactic right-sided mastectomy on 04/20/2017. Pathology: FROZEN SECTION DIAGNOSIS A. Left axillary sentinel lymph nodes, biopsy: Three out of three lymph nodes positive for macrometastatic carcinoma. MICROSCOPIC DIAGNOSIS A. Left axillary sentinel lymph nodes, biopsy: Three out of three lymph nodes positive for macrometastatic carcinoma. See comment. B. Left breast, mastectomy: Invasive ductal carcinoma. C. Right breast: Focal intraductal hyperplasia without atypia. Negative for carcinoma in the sections examined. D. Extra skin and tissue left breast: Negative for carcinoma. INVASIVE BREAST CANCER SUMMARY: (Including specimen A AND B) Specimen ? total breast (including nipple and skin). Procedure ? total mastectomy (including nipple and skin). Lymph node sampling ? sentinel lymph nodes Specimen integrity ? single intact specimen. Specimen laterality - left Tumor size ? 3.5 x 3.3 x 3 cm Tumor focality ? single focus of invasive carcinoma Macroscopic and Microscopic extent of tumor: Skin ? invasive carcinoma does not invade into the dermis or epidermis. Nipple ? ductal carcinoma in situ does not nipple epidermis. Skeletal muscle ? no skeletal muscle present. Ductal carcinoma in situ (DCIS) ? no ductal carcinoma in situ is present. Lobular carcinoma in situ (LCIS) ? not identified Histologic type of invasive carcinoma ? invasive ductal carcinoma (no special type). Histologic Grade ([place] grade): Glandular/tubular differentiation - score 3 Nuclear pleomorphism - score 3 Mitotic count ? score 2 Overall grade - 3 (score of 8) Margins - Margins uninvolved by invasive carcinoma. The invasive carcinoma is 1.5 cm away from the closest posterior margin. Treatment effect: Response to presurgical (neoadjuvant) therapy - no known presurgical therapy. Lymph-Vascular invasion ? not identified Dermal lymph-vascular invasion - not identified Lymph nodes: Number of sentinel lymph nodes examined - 3 Total number of lymph nodes examined (sentinel and nonsentinel) - 3 Number of lymph nodes with macrometastases - 3 Number of lymph nodes with micrometastases and isolated tumor cells - 0 Size of largest metastatic deposit ? 3.6 cm Extranodal extension ? present, focal (0.4 cm in greatest dimension) Distance metastasis ? not applicable Additional pathologic findings ? fibrocystic changes and intraductal hyperplasia without atypia. Ancillary studies - previously performed on section of tumor ([id number] / [id number]). ER ? positive (>95%, strong) RI ? positive (variable, 0-11%, weak) Her2 bhavani ? negative (1+) Microcalcifications ? not identified Clinical history - Please make reference to previous specimen ([id number]) left breast, ultrasound-guided needle core biopsy with diagnosis of invasive ductal carcinoma. PATHOLOGIC STAGE: pT2 pN1a(sn) Mx The above summary is in compliance with [employer] [place] [employer] (CAP) Cancer Protocols Checklist and [place] Joint Committee on Cancer (AJCC), Staging Manual, 8th Ed. COMMENT A. The lymph nodes are almost completely involved by the metastatic tumor. The largest lymph node measures 3.6 cm in greatest dimension. The largest focus of metastasis measures 3.6 cm in greatest dimension. Focal extranodal distention is noted which measures 0.4 cm in greatest dimension. Underwent completion axillary dissection 05/27/2017. Pathology: MICROSCOPIC DIAGNOSIS A. Left axillary contents, regional lymphadenectomy: Isolated metastatic tumor cells in one of seven lymph nodes. B. ?Dog ear,? excision: Skin with attached fibrofatty tissue with reactive and reparative change and suture granulomas. No evidence of malignancy. COMMENT Case has been reviewed in consultation with Dr. Skinner who concurs with the above diagnosis. MICROSCOPIC DESCRIPTION Slides are reviewed. A. The largest lymph node contains benign histiocytic proliferation, fibrosis and minimal chronic inflammation consistent with previous biopsy and resection ([id number]). Immunohistochemistry ([id number]) supports the presence of isolated metastatic tumor cells in one out of seven lymph nodes. Previous therapy: 1) Adjuvant AC followed by Taxol. 2) external beam radiation treatment to the left chest wall, supra-auricular area and axilla completed on 01/02/2018. Current therapy: 1) Anastrozole on SunarchE trial. Presents for ongoing oncologic management. Interim history: Originally developed fever to 101 along with chills on 12/20/2017. She was seen for an office visit on 12/21. Temperature was 102. Patient had exam positive for cellulitis upper abdominal wall across medial aspect of right breast. She had been getting radiation treatment to the left mastectomy site. She was given Rocephin in the office and then 10 days of Augmentin. Symptoms resolved. She presented to the ER at [facility] on 01/18 with recurring symptoms of cellulitis. Blood cultures were drawn and she was given 2 g of Rocephin and discharged on Augmentin. The symptoms of cellulitis were confined to the chest and seemed to Headstart in the left breast area. However the next day symptoms spread to the abdomen. She will back to the ER. Temperature was 101.7. Blood cultures from 01/18 returned with group B Streptococcus in both sets. Patient was admitted and started on antibiotics. She was seen in consultation by infectious diseases. She continued on ceftriaxone while inpatient through 01/22. She then completed a two-week course of Keflex. Again all symptoms have resolved. She still has a little discoloration of the abdominal wall. No further fevers or chills. No skin tenderness. She's not having any side effects from anastrozole per se. She has a history of psoriatic arthritis and she discontinued Otezla at the time of her diagnosis of breast cancer. Since completing chemotherapy she's had recurrence of symptoms of joint pain of the hands and wrists. Particularly she has pain of the left third MCP extending to the PIP. No swelling. No fever. No complaints of hot flashes. Her only residual side effects from chemotherapy is a little bit of numbness restricted to the tip of the right thumb. No other symptoms of sensory neuropathy. No symptoms of cardiomyopathy including chest pain/pressure, shortness of breath at rest or with exertion, PND or orthopnea. She says she occasionally gets a sensation of a skipped heartbeat but she's had this for years. Also she tends to get some mild swelling at the ankles when she is on her feet all day. This too is unchanged from prior to her breast cancer treatment. PMH, medications and allergies personally reviewed by me today. Any changes documented in appropriate section. ROS: Constitutional: Denies episodes of night sweats. Appetite is not quite normal for her but she has not had weight loss. Neuro: Denies OWENS, vertigo, dizziness and imbalance. HEENT: No recent change in voice, vision or hearing. Resp: Denies cough, wheeze and hemoptysis. CVS: See above. : Denies dysuria or gross hematuria. No symptoms of bladder outlet obstruction. Endo: Denies polyuria and polydipsia. Denies heat and cold intolerance. Musculoskeletal: See above. Heme: Denies unusual bleeding and unexplained bruising. Psych: Normal mood. PHYSICAL EXAM: Vitals: Blood pressure 134/62, pulse 68, temperature (!) 35.6 ?C (96 ?F), temperature source Temporal Artery, weight 84.6 kg (186 lb 8 oz), last menstrual period 02/04/2010. Well-appearing and in no acute distress. EYES: Sclerae are anicteric bilaterally. ENT: Oral mucosa is unremarkable. NECK: Supple. LYMPHATIC: There is no palpable cervical, supraclavicular, axillary adenopathy. RESPIRATORY: Inspiratory breath sounds are of normal intensity in all peters. No rales, wheezes or rhonchi. BREAST: and research RN acting as lap maker. Bilateral mastectomy sites are well-healed there is no chest wall mass or nodule appreciated. CARDIOVASCULAR: Rhythm is regular. Normal intensity S1/S2. There is no gallop or murmur. ABDOMEN: The abdomen is nondistended. No organomegaly. No tenderness. Extremities: No swelling or edema now. SKIN: The skin of the upper abdomen is faintly salmon-colored. It blanches easily. There is no warmth or tenderness. NEUROLOGIC: sheeter operator II-XII are grossly intact. No focal motor weakness. MUSCULOSKELETAL: No muscle wasting. 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 -Staging form in problem list previously completed. -KPS is 90%. -She tolerated adjuvant chemotherapy very well. -No concerning symptoms or physical exam findings suggestive of recurrence. -Tolerating anastrozole well with no symptomatic side effect. -Again discussed the rationale and logistics of the MonarchE trial with her. Plan: -Labs and EKG today. -Randomization following that. -Continue anastrozole. -OV as per clinical protocol. (E04.9) Goiter, nodular Assessment: -Was stable on follow up. Plan: -Repeat ultrasound 10/2018. Harpreet Pantoja DO CNOVSP Observed: 02/14/2018 Status: COMPLETED Source: [place] 10:20 AM [facility] REPOSITORY Visit (SP) Office ([place]) JESSICA RODRIGUEZ ([id number]) 1955 F Date Time Provider Department 02/14/18 10:20 AM HARPREET PANTOJA During your visit today, we recorded the following information about you: Temperature Pulse Respiration Blood pressure 96 degrees 68/minute 18/minute 134/62 Weight Height 84.6 kg 1.537 m Francy Hill LPN 02/14/2018 11:24 AM Signed Est patient. One month office visit. Francy Pantoja DO 02/14/2018 11:47 AM Signed Diagnosis: 1) Breast cancer. HPI: The patient is a 62-year-old female was a past medical history significant for diabetes and psoriatic arthritis. Patient had a screening mammogram performed on 03/22/2017 (only 3 months past annual date of previous study). There was a new mass identified in the left breast as being indeterminate. Further studies were recommended. Diagnostic imaging done on 03/28/2017 demonstrated a 3 cm irregular mass in left breast consistent with carcinoma and was highly suggestive of malignancy. Underwent core needle biopsy on 2017. Pathology: Left breast, ultrasound-guided needle core biopsy: Invasive ductal carcinoma, nuclear grade 3 (1 cm in greatest length). See comment. ER (clone 6F11) >95%, strong RI (clone 16/1E2) variable, 0-11%, weak Her-2Neu (clone CB11) 1+ Underwent left-sided mastectomy with left sentinel axillary lymph node biopsy along with prophylactic right-sided mastectomy on 04/20/2017. Pathology: FROZEN SECTION DIAGNOSIS A. Left axillary sentinel lymph nodes, biopsy: Three out of three lymph nodes positive for macrometastatic carcinoma. MICROSCOPIC DIAGNOSIS A. Left axillary sentinel lymph nodes, biopsy: Three out of three lymph nodes positive for macrometastatic carcinoma. See comment. B. Left breast, mastectomy: Invasive ductal carcinoma. C. Right breast: Focal intraductal hyperplasia without atypia. Negative for carcinoma in the sections examined. D. Extra skin and tissue left breast: Negative for carcinoma. INVASIVE BREAST CANCER SUMMARY: (Including specimen A AND B) Specimen ? total breast (including nipple and skin). Procedure ? total mastectomy (including nipple and skin). Lymph node sampling ? sentinel lymph nodes Specimen integrity ? single intact specimen. Specimen laterality - left Tumor size ? 3.5 x 3.3 x 3 cm Tumor focality ? single focus of invasive carcinoma Macroscopic and Microscopic extent of tumor: Skin ? invasive carcinoma does not invade into the dermis or epidermis. Nipple ? ductal carcinoma in situ does not nipple epidermis. Skeletal muscle ? no skeletal muscle present. Ductal carcinoma in situ (DCIS) ? no ductal carcinoma in situ is present. Lobular carcinoma in situ (LCIS) ? not identified Histologic type of invasive carcinoma ? invasive ductal carcinoma (no special type). Histologic Grade ([place] grade): Glandular/tubular differentiation - score 3 Nuclear pleomorphism - score 3 Mitotic count ? score 2 Overall grade - 3 (score of 8) Margins - Margins uninvolved by invasive carcinoma. The invasive carcinoma is 1.5 cm away from the closest posterior margin. Treatment effect: Response to presurgical (neoadjuvant) therapy - no known presurgical therapy. Lymph-Vascular invasion ? not identified Dermal lymph-vascular invasion - not identified Lymph nodes: Number of sentinel lymph nodes examined - 3 Total number of lymph nodes examined (sentinel and nonsentinel) - 3 Number of lymph nodes with macrometastases - 3 Number of lymph nodes with micrometastases and isolated tumor cells - 0 Size of largest metastatic deposit ? 3.6 cm Extranodal extension ? present, focal (0.4 cm in greatest dimension) Distance metastasis ? not applicable Additional pathologic findings ? fibrocystic changes and intraductal hyperplasia without atypia. Ancillary studies - previously performed on section of tumor ([id number] / [id number]). ER ? positive (>95%, strong) RI ? positive (variable, 0-11%, weak) Her2 bhavani ? negative (1+) Microcalcifications ? not identified Clinical history - Please make reference to previous specimen ([id number]) left breast, ultrasound-guided needle core biopsy with diagnosis of invasive ductal carcinoma. PATHOLOGIC STAGE: pT2 pN1a(sn) Mx The above summary is in compliance with [employer] [place] [employer] (CAP) Cancer Protocols Checklist and [place] Joint Committee on Cancer (AJCC), Staging Manual, 8th Ed. COMMENT A. The lymph nodes are almost completely involved by the metastatic tumor. The largest lymph node measures 3.6 cm in greatest dimension. The largest focus of metastasis measures 3.6 cm in greatest dimension. Focal extranodal distention is noted which measures 0.4 cm in greatest dimension. Underwent completion axillary dissection 05/27/2017. Pathology: MICROSCOPIC DIAGNOSIS A. Left axillary contents, regional lymphadenectomy: Isolated metastatic tumor cells in one of seven lymph nodes. B. ?Dog ear,? excision: Skin with attached fibrofatty tissue with reactive and reparative change and suture granulomas. No evidence of malignancy. COMMENT Case has been reviewed in consultation with Dr. Skinner who concurs with the above diagnosis. MICROSCOPIC DESCRIPTION Slides are reviewed. A. The largest lymph node contains benign histiocytic proliferation, fibrosis and minimal chronic inflammation consistent with previous biopsy and resection ([id number]). Immunohistochemistry ([id number]) supports the presence of isolated metastatic tumor cells in one out of seven lymph nodes. Previous therapy: 1) Adjuvant AC followed by Taxol. 2) external beam radiation treatment to the left chest wall, supra-auricular area and axilla completed on 01/02/2018. Current therapy: 1) Anastrozole on trial. Presents for ongoing oncologic management. Interim history: Originally developed fever to 101 along with chills on 12/20/2017. She was seen for an office visit on 12/21. Temperature was 102. Patient had exam positive for cellulitis upper abdominal wall across medial aspect of right breast. She had been getting radiation treatment to the left mastectomy site. She was given Rocephin in the office and then 10 days of Augmentin. Symptoms resolved. She presented to the ER at [facility] on 01/18 with recurring symptoms of cellulitis. Blood cultures were drawn and she was given 2 g of Rocephin and discharged on Augmentin. The symptoms of cellulitis were confined to the chest and seemed to [place] in the left breast area. However the next day symptoms spread to the abdomen. She will back to the ER. Temperature was 101.7. Blood cultures from 01/18 returned with group B Streptococcus in both sets. Patient was admitted and started on antibiotics. She was seen in consultation by infectious diseases. She continued on ceftriaxone while inpatient through 01/22. She then completed a two-week course of Keflex. Again all symptoms have resolved. She still has a little discoloration of the abdominal wall. No further fevers or chills. No skin tenderness. She's not having any side effects from anastrozole per se. She has a history of psoriatic arthritis and she discontinued Otezla at the time of her diagnosis of breast cancer. Since completing chemotherapy she's had recurrence of symptoms of joint pain of the hands and wrists. Particularly she has pain of the left third MCP extending to the PIP. No swelling. No fever. No complaints of hot flashes. Her only residual side effects from chemotherapy is a little bit of numbness restricted to the tip of the right thumb. No other symptoms of sensory neuropathy. No symptoms of cardiomyopathy including chest pain/pressure, shortness of breath at rest or with exertion, PND or orthopnea. She says she occasionally gets a sensation of a skipped heartbeat but she's had this for years. Also she tends to get some mild swelling at the ankles when she is on her feet all day. This too is unchanged from prior to her breast cancer treatment. PMH, medications and allergies personally reviewed by me today. Any changes documented in appropriate section. ROS: Constitutional: Denies episodes of night sweats. Appetite is not quite normal for her but she has not had weight loss. Neuro: Denies OWENS, vertigo, dizziness and imbalance. HEENT: No recent change in voice, vision or hearing. Resp: Denies cough, wheeze and hemoptysis. CVS: See above. : Denies dysuria or gross hematuria. No symptoms of bladder outlet obstruction. Endo: Denies polyuria and polydipsia. Denies heat and cold intolerance. Musculoskeletal: See above. Heme: Denies unusual bleeding and unexplained bruising. Psych: Normal mood. PHYSICAL EXAM: Vitals: Blood pressure 134/62, pulse 68, temperature (!) 35.6 ?C (96 ?F), temperature source Temporal Artery, weight 84.6 kg (186 lb 8 oz), last menstrual period 02/04/2010. Well-appearing and in no acute distress. EYES: Sclerae are anicteric bilaterally. ENT: Oral mucosa is unremarkable. NECK: Supple. LYMPHATIC: There is no palpable cervical, supraclavicular, axillary adenopathy. RESPIRATORY: Inspiratory breath sounds are of normal intensity in all peters. No rales, wheezes or rhonchi. BREAST: and research RN acting as lap maker. Bilateral mastectomy sites are well-healed there is no chest wall mass or nodule appreciated. CARDIOVASCULAR: Rhythm is regular. Normal intensity S1/S2. There is no gallop or murmur. ABDOMEN: The abdomen is nondistended. No organomegaly. No tenderness. Extremities: No swelling or edema now. SKIN: The skin of the upper abdomen is faintly salmon-colored. It blanches easily. There is no warmth or tenderness. NEUROLOGIC: sheeter operator II-XII are grossly intact. No focal motor weakness. MUSCULOSKELETAL: No muscle wasting. 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 -Staging form in problem list previously completed. -KPS is 90%. -She tolerated adjuvant chemotherapy very well. -No concerning symptoms or physical exam findings suggestive of recurrence. -Tolerating anastrozole well with no symptomatic side effect. -Again discussed the rationale and logistics of the [facility] trial with her. Plan: -Labs and EKG today. -Randomization following that. -Continue anastrozole. -OV as per clinical protocol. (E04.9) Goiter, nodular Assessment: -Was stable on follow up. Plan: -Repeat ultrasound 10/2018. 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) [C77.3] Examination of participant in clinical trial [Z00.6] Order(s):PHYLLIS CBC AND DIFF [SQWCBCDF] Order #: [id number] FUTURE COMP METABOLIC PANEL [SQCMP] Order #: [id number] FUTURE ECG COMPLETE W INTERPRETATION [ECG01] Order #: [id number] FUTURE Follow-up and Disposition History Recorded Prescriptions as of 02/14/2018 Sig: ANASTROZOLE 1 MG TABLET Take 1 tablet by mouth once d* FUROSEMIDE 20 MG TABLET Take 1 tablet by mouth once d* POTASSIUM CHLORIDE ER 20 MEQ * Take 1 tablet by mouth once d* DIPHENHYDRAMINE 25 MG-ACETAMI* Take 1 tablet by mouth at bed* ONDANSETRON HCL 8 MG TABLET Take 1 tablet by mouth every * OTC NUTRITIONAL SUPPLEMENT calm day IBUPROFEN 200 MG TABLET Take 600 mg by mouth twice da* METFORMIN ER 500 MG TABLET,EX* Take 500 mg by mouth twice da* SUMATRIPTAN 100 MG TABLET Take 100 mg by mouth as neede* OMEPRAZOLE 40 MG CAPSULE,CARLYN* Take 40 mg by mouth once adia* [id number] 5* Take 1 capsule by mouth once * TRAMADOL 50 MG TABLET Take 50 mg by mouth three lizeth* * FLUOXETINE 20 MG CAPSULE Take 20 mg by mouth once adia* * MULTIVITAMIN TABLET Take one(1) tablet daily. * CALCIUM + D 600 MG (1,500 MG)* Take one(1) tablet twice adia* * TYLENOL EXTRA STRENGTH 500 MG* Take two(2) tablets every six* CEPHALEXIN 500 MG CAPSULE LIDOCAINE-PRILOCAINE 2.5 %-2.* Apply 1 application to affect* MELATONIN 3 MG TABLET Take 6 mg by mouth daily at b* Medication notes this encounter CEPHALEXIN 500 MG CAPSULE >> Francy Hill LPN 02/14/2018 11:04 AM >> FRANCY HILL LPN Carol Feb 14, 2018 11:04 AM completed MELATONIN 3 MG TABLET >> Francy Hill LISA 02/14/2018 11:05 AM >> FRANCY HILL LPN Carol Feb 14, 2018 11:05 AM Not using Problem List As Of Date 02/14/2018 Noted Resolved Postmenopausal bleeding [N95.0] INVALID FOR* Ovarian cyst [N83.209] INVALID FOR* Malignant neoplasm of upper-outer quadrant of l*INVALID FOR* 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 Lymphedema [I89.0] INVALID FOR* Examination of participant in clinical trial [Z*INVALID FOR* Visit Notes: >> Francy Hill LPN [facility] Feb 14, 2018 11:05 AM Status: Signed Est patient. One month office visit. Francy Hill LPN Encounter Status:Closed by HARPREET PANTOJA DO on 02/14/18 PROGRESS Observed: 01/30/2018 Status: COMPLETED Source: [place] 3:08 PM [facility] [place] REPOSITORY HNO ID: [id number] Author: Bonita Zepeda Service: (none) Author Type: Physician Type: Progress Notes Filed: 01/30/2018 4:16 PM Note Text: Radiation Oncology - Follow Up Note PATIENT NAME: Jessica Rodriguez PATIENT DIAGNOSIS: Stage III, T2N2, invasive ductal carcinoma of the left breast s/p left mastectomy and sentinel node biopsy and axillary node dissection. It's ER positive (>95%, strong), RI positive (variable, weak, 0-11%), and Her2/bhavani 1+. s/p adjuvant chemotherapy, s/p radiation treatment finished on 01/02/18. She is on Arimidex. INTERVAL HISTORY: She is here for a routine follow-up four weeks after completion of radiation treatment. She had recurrent cellulitis and bacteremia requiring hospitalization and IV antibiotics treatment. She is doing well now. She denies any pain or discomfort over the left chest wall. ALLERGIES Allergen Reactions - Iv Dye [Iodinated C* Hives - Shellfish Hives - Victoza [Liraglutid* Intolerance MEDICATIONS: anastrozole (ARIMIDEX) 1 mg tablet Take 1 tablet by mouth once daily. eqxbihu-xoeaqusm-vjwkbpvpdq capsule Take 1 capsule by mouth once daily as needed. PRN CALCIUM + D 600 MG-200 UNIT TAB Take one(1) tablet twice daily. cephALEXin (KEFLEX) 500 mg capsule diphenhydrAMINE-Acetaminophen (TYLENOL PM EXTRA STRENGTH) 25-500 mg tab Take 1 tablet by mouth at bedtime as needed. fluoxetine 20 mg ORAL capsule Take 20 mg by mouth once daily. furosemide (LASIX) 20 mg tablet Take 1 tablet by mouth once daily. ibuprofen (MOTRIN) 200 mg tablet Take 600 mg by mouth twice daily. metFORMIN ER (GLUCOPHAGE XR) 500 mg 24 hr tablet Take 500 mg by mouth twice daily. MULTIVITAMIN TAB Take one(1) tablet daily. Omeprazole (PRILOSEC) 40 mg capsule Take 40 mg by mouth once daily. ondansetron (ZOFRAN) 8 mg tablet Take 1 tablet by mouth every 8 hours as needed for Nausea/Vomiting. OTC NUTRITIONAL SUPPLEMENT potassium chloride ER (K-DUR, KLOR-CON) 20 mEq tablet Take 1 tablet by mouth once daily. SUMAtriptan (IMITREX) 100 mg tablet Take 100 mg by mouth as needed. traMADol 50 mg tablet Take 50 mg by mouth three times daily as needed. TYLENOL EXTRA STRENGTH 500 MG TAB Take two(2) tablets every six(6) hours as needed for pain. lidocaine-prilocaine (EMLA) cream Apply 1 application to affected area as needed. melatonin 3 mg tablet Take 6 mg by mouth daily at bedtime. PHYSICAL EXAM: VS: BP 143/60 Pulse 68 Temp (!) 35.5 ?C (95.9 ?F) (Temporal Artery) Resp 20 Wt 85.3 kg (188 lb) LMP 02/04/2010 SpO2 97% BMI 35.72 kg/m? KPS: 100 General Appearance: Alert and oriented. No acute distress. Mild hyperpigmentation of the left chest wall. ASSESSMENT AND PLAN: Clinically stable. She is recovering well from acute radiation dermatitis. She plans to see Dr. Pantoja next month and will regularly followed with him. I will see her as needed. Signed by: Bonita Zepeda MD cc: Ruth Clark DO ([place]) [id number] [facility] [address] [place] [address] CNOV Observed: 01/30/2018 Status: COMPLETED Source: [place] 3:00 PM [facility] REPOSITORY Office Visit (RADTWS) ERMAJESSICA LANGLEY ([id number]) 1955 F Date Time Provider Department 01/30/18 3:00 PM BONITA ZEPEDA During your visit today, we recorded the following information about you: Temperature Pulse Respiration Blood pressure 95.9 degrees 68/minute 20/minute 143/60 Weight 85.3 kg Nikky Briones RN, RN 01/30/2018 3:05 PM Signed Radiation Therapy - Nursing Note (Follow-up) PATIENT NAME: Jessica Rodriguez PATIENT January 30, 2018 [facility] FACILITY/LOCATION: [place] Reason for visit: Follow up. Subjective Data No c/o Additional Data Do you want to see a Cable Driller? No Nursing Assessment Fatigue: increased fatigue over baseline but not altering normal activities Appetite: good Weight Gain/Loss: No Last 6 Encounter Wt Readings: Date: Wt: 01/30/2018 85.3 kg (188 lb) 01/02/2018 84.8 kg (187 lb) 12/25/2017 83.5 kg (184 lb) 12/24/2017 83.9 kg (185 lb) 12/21/2017 84.6 kg (186 lb 8 oz) 11/28/2017 84.8 kg (187 lb) Bowel Function: normal bowel movements Bone Pain: none Focused Assessment BREAST: Lymphedema Assessment: Is the patient noting any swelling? No. Was approved? did not have tablet SIGNED by: MONET Clemens MD 01/30/2018 4:16 PM Signed Radiation Oncology - Follow Up Note PATIENT NAME: Jessica Rodriguez PATIENT DIAGNOSIS: Stage III, T2N2, invasive ductal carcinoma of the left breast s/p left mastectomy and sentinel node biopsy and axillary node dissection. It's ER positive (>95%, strong), RI positive (variable, weak, 0-11%), and Her2/bhavani 1+. s/p adjuvant chemotherapy, s/p radiation treatment finished on 01/02/18. She is on Arimidex. INTERVAL HISTORY: She is here for a routine follow-up four weeks after completion of radiation treatment. She had recurrent cellulitis and bacteremia requiring hospitalization and IV antibiotics treatment. She is doing well now. She denies any pain or discomfort over the left chest wall. ALLERGIES Allergen Reactions - Iv Dye [Iodinated C* Hives - Shellfish Hives - Victoza [Liraglutid* Intolerance MEDICATIONS: anastrozole (ARIMIDEX) 1 mg tablet Take 1 tablet by mouth once daily. rgcywvu-pkjatdqu-gdklqhfoes capsule Take 1 capsule by mouth once daily as needed. PRN CALCIUM + D 600 MG-200 UNIT TAB Take one(1) tablet twice daily. cephALEXin (KEFLEX) 500 mg capsule diphenhydrAMINE-Acetaminophen (TYLENOL PM EXTRA STRENGTH) 25-500 mg tab Take 1 tablet by mouth at bedtime as needed. fluoxetine 20 mg ORAL capsule Take 20 mg by mouth once daily. furosemide (LASIX) 20 mg tablet Take 1 tablet by mouth once daily. ibuprofen (MOTRIN) 200 mg tablet Take 600 mg by mouth twice daily. metFORMIN ER (GLUCOPHAGE XR) 500 mg 24 hr tablet Take 500 mg by mouth twice daily. MULTIVITAMIN TAB Take one(1) tablet daily. Omeprazole (PRILOSEC) 40 mg capsule Take 40 mg by mouth once daily. ondansetron (ZOFRAN) 8 mg tablet Take 1 tablet by mouth every 8 hours as needed for Nausea/Vomiting. OTC NUTRITIONAL SUPPLEMENT calm day potassium chloride ER (K-DUR, KLOR-CON) 20 mEq tablet Take 1 tablet by mouth once daily. SUMAtriptan (IMITREX) 100 mg tablet Take 100 mg by mouth as needed. traMADol 50 mg tablet Take 50 mg by mouth three times daily as needed. TYLENOL EXTRA STRENGTH 500 MG TAB Take two(2) tablets every six(6) hours as needed for pain. lidocaine-prilocaine (EMLA) cream Apply 1 application to affected area as needed. melatonin 3 mg tablet Take 6 mg by mouth daily at bedtime. PHYSICAL EXAM: VS: BP 143/60 Pulse 68 Temp (!) 35.5 ?C (95.9 ?F) (Temporal Artery) Resp 20 Wt 85.3 kg (188 lb) LMP 02/04/2010 SpO2 97% BMI 35.72 kg/m? KPS: 100 General Appearance: Alert and oriented. No acute distress. Mild hyperpigmentation of the left chest wall. ASSESSMENT AND PLAN: Clinically stable. She is recovering well from acute radiation dermatitis. She plans to see Dr. Pantoja next month and will regularly followed with him. I will see her as needed. Signed by: Bonita Zepeda MD cc: Ruth Clark DO ([facility]) [address] [place] [address] Referring Provider: BONITA ZEPEDA [[id number]] Allergies As of Date: 01/30/2018 Noted Allergy Reaction IV DYE (IODINATED CONTRAST- ORAL *05/21/2006 4 - Hives SHELLFISH 05/21/2006 4 - Hives VICTOZA (LIRAGLUTIDE) 03/30/2017 5 - Intolerance Date Reviewed: 01/30/2018 Reviewed by: Nikky (Rn) MONET Briones - Fully Assessed Reason for Visit: Recheck [92] Primary Visit Diagnosis:Malignant neoplasm of upper-outer quadrant of left breast in female, estrogen receptor positive (HCC) [C50.412, Z17.0] Prescriptions as of 01/30/2018 Sig: ANASTROZOLE 1 MG TABLET Take 1 tablet by mouth once d* [id number] 5* Take 1 capsule by mouth once * * CALCIUM + D 600 MG (1,500 MG)* Take one(1) tablet twice adia* CEPHALEXIN 500 MG CAPSULE DIPHENHYDRAMINE 25 MG-ACETAMI* Take 1 tablet by mouth at bed* * FLUOXETINE 20 MG CAPSULE Take 20 mg by mouth once adia* FUROSEMIDE 20 MG TABLET Take 1 tablet by mouth once d* IBUPROFEN 200 MG TABLET Take 600 mg by mouth twice da* METFORMIN ER 500 MG TABLET,EX* Take 500 mg by mouth twice da* * MULTIVITAMIN TABLET Take one(1) tablet daily. OMEPRAZOLE 40 MG CAPSULE,CARLYN* Take 40 mg by mouth once adia* ONDANSETRON HCL 8 MG TABLET Take 1 tablet by mouth every * OTC NUTRITIONAL SUPPLEMENT calm day POTASSIUM CHLORIDE ER 20 MEQ * Take 1 tablet by mouth once d* SUMATRIPTAN 100 MG TABLET Take 100 mg by mouth as neede* TRAMADOL 50 MG TABLET Take 50 mg by mouth three lizeth* * TYLENOL EXTRA STRENGTH 500 MG* Take two(2) tablets every six* LIDOCAINE-PRILOCAINE 2.5 %-2.* Apply 1 application to affect* MELATONIN 3 MG TABLET Take 6 mg by mouth daily at b* Medication notes this encounter MULTIVITAMIN TABLET >> Nikky Briones RN, RN 01/30/2018 3:02 PM >> NIKKY BRIONES SunJan 30, 2018 3:02 PM Problem List As Of Date 01/30/2018 Noted Resolved Postmenopausal bleeding [N95.0] INVALID FOR* Ovarian cyst [N83.209] INVALID FOR* Malignant neoplasm of upper-outer quadrant of l*INVALID FOR* 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 Lymphedema [I89.0] INVALID FOR* Visit Notes: >> Nikky (Monet) MONET Briones SunJan 30, 2018 3:04 PM Status: Signed Radiation Therapy - Nursing Note (Follow-up) PATIENT NAME: Jessica Rodriguez PATIENT January 30, 2018 [facility] FACILITY/LOCATION: [place] Reason for visit: Follow up. Subjective Data No c/o Additional Data Do you want to see a Cable Driller? No Nursing Assessment Fatigue: increased fatigue over baseline but not altering normal activities Appetite: good Weight Gain/Loss: No Last 6 Encounter Wt Readings: Date: Wt: 01/30/2018 85.3 kg (188 lb) 01/02/2018 84.8 kg (187 lb) 12/25/2017 83.5 kg (184 lb) 12/24/2017 83.9 kg (185 lb) 12/21/2017 84.6 kg (186 lb 8 oz) 11/28/2017 84.8 kg (187 lb) Bowel Function: normal bowel movements Bone Pain: none Focused Assessment BREAST: Lymphedema Assessment: Is the patient noting any swelling? No. Was approved? did not have tablet SIGNED by: Nikky Briones RN Encounter Status:Closed by BONITA ZEPEDA MD on 01/30/18 EMERGENCY DEPARTMENT Observed: 01/24/2018 Status: F Source: [place] SUMMARY 1:06 AM [facility] REPOSITORY [facility] Medical Records Department [address] [place] [address] Emergency Department Summary 01/19/18 0823 MR#: [id number] Acct: [id number] Name: JESSICA RODRIGUEZ Rep #: [id number] : 1955 62 From: Fabian Casillas MD PCP: Ruth Clark DO Status: DIS IN - ER Visit Summary Date of Service: 01/19/18 Chief Complaint: Rash, fever History of Present Illness: The patient is a [address] Aleman and Dr. Clark. She reports that approximately 1 month ago she had cellulitis to her abdomen and was treated with an IV dose of Rocephin and placed on Augmentin for 10 days. It seemed to resolve. However, she reports that yesterday morning she woke up and the rash had returned and she had a fever to 101.4 degrees. She was seen in the emergency department last night and had blood cultures obtained. She was given IV Rocephin and placed on Augmentin. Today the blood cultures returned and were positive so she is come back to the emergency department. Patient reports she has had nausea. No vomiting. She denies any abdominal pain. She does reports that she has a little bit of cough and sinus drainage. Physical Examination: Vitals: Stable. Afebrile. General: Well-nourished and well-developed. Head: Normocephalic atraumatic. Neck: Supple, no lymphadenopathy. No JVD. Nontender. Cardiovascular: Regular rate and rhythm. No murmurs. Respiratory: No respiratory distress. Clear to auscultation bilaterally. Bilateral mastectomy. Scars are well-healed. She does have radiation damage to the left breast area. Abdominal: Soft, nontender, nondistended, normal bowel sounds. No guarding, rebound, or peritoneal signs. Back: Nontender. Extremities: Nontender, no edema. Skin: Erythema and warmth that is diffuse over her abdomen and lower chest. No crepitus. No induration or fluctuance. No tenderness to palpation. Neurologic: Alert and oriented 3. Cranial nerves II through XII are intact. Normal strength and sensation. Psych: Normal affect. Test Results: Labs from last night were not repeated. At that time her white count was 12.4 with 87 segmented neutrophils and 6 lymphocytes. Her lactic acid was 1.6. Her lactic acid this morning is 1.2. Emergency Department Course and Treatment: Patient had an IV placed. She was given vancomycin IV. She is resting comfortably. She refused pain or nausea medications. Treatment Plan: Patient was discussed with Dr. Baltazar. She will be admitted to the hospital for further relation and treatment. Disposition: Admitted in stable condition. Impression: 1. Cellulitis to abdomen. 2. Bacteremia. This note was generated with Clear[employer] software. It may contain incorrect words, spelling, and punctuation that were not noted in review of the chart prior to signing ED Disposition - Plan for ED Patient: Chief Complaint: Cellulitis What to do if you have Problems For any increased pain, shortness of breath, bleeding, nausea or vomiting, chest pain, or any unexpected problems, contact your Primary Care Provider. Call [facility] ([phone]) or report to the closest Emergency Room. Call 911 if necessary. 01/24/18 0106 <Electronically signed by Fabian Casillas MD> Date Fabian Casillas MD Cosigner Signature (If Indicated): Date CC: Ruth Clark DO DISCHARGE SUMMARY Observed: 01/22/2018 Status: F Source: [place] 10:40 AM [facility] REPOSITORY [facility] Medical Records Department [address] [place] [address] Discharge Summary 01/22/18 1034 MR#: [id number] Acct: [id number] Name: JESSICA RODRIGUEZ Rep #: [id number] : 1955 62 From: Shantel Wong MD PCP: Ruth Clark DO Status: ADM IN Location: [place] [address] Discharge Date and Diagnosis - Problem List Patient Problems: Active and Suspected Problems Cellulitis of trunk (Acute) Bacteremia due to group B Streptococcus (Acute) Date of Admission: 01/19/18 Date of Discharge: 01/22/18 - Primary Discharge Diagnosis Active and Suspected Problems #1 acute/recurrent cellulitis of the anterior abdominal wall and chest/sepsis. #2 Streptococcus agalactiae bacteremia. - Secondary Discharge Diagnosis Chronic Problems Cancer of breast, intraductal (Chronic) Rheumatoid arthritis (Chronic) Obesity (Chronic) History of cigarette smoking unknown (Chronic) Diabetes mellitus type II, controlled (Chronic) Hyperlipidemia (Chronic) Hypertension (Chronic) Hospital Course and Treatment Dr. england, infectious disease. Operations: None Procedures: None Summary of Care Provided: Patient seen and examined on today's discharge and appeared to be stable to be discharged home. Swelling and erythema of the anterior abdominal wall and lower chest significantly improved. She has been afebrile for more than 48 hours. Her vital signs are stable. The patient is a 62 year old F admitted because of skin rash and erythema of the anterior abdominal wall and chest, found to have acute cellulitis of the anterior abdominal wall, chest with sepsis as well as streptococcal bacteremia. 1 month ago before this admission, patient had similar presentation to the ED, was given 1 dose of Rocephin and 10 days of Augmentin as outpatient and it is resolved. She presented back after 1 month for similar presentation. She had a history of bilateral mastectomy and she had small skin opening around the right mastectomy surgical site which is healed. Patient was treated with IV vancomycin initially. She had blood cultures on the day before admission that revealed Streptococcus agalactiae consistent with bacteremia and likely source is the skin opening around the right mastectomy surgical site. Based on blood cultures, antibiotic adjusted and she was started on IV Rocephin. Infectious disease consulted and I agreed with IV Rocephin. With IV antibiotic therapy, noted erythema and swelling of the anterior abdominal wall and chest significantly improved. Patient remained afebrile for more than 48 hours. Repeat blood culture showed no growth in 48 hours. Patient discharged home in a stable medical condition, discharged on Keflex 500 mg 3 times daily for 2 weeks of treatment, continued on her clinical medications without any changes, recommended follow-up with PCP in 1 week and follow-up with infectious disease if needed. Patient Problems: Active and Suspected Problems Cellulitis of trunk (Acute) Bacteremia due to group B Streptococcus (Acute) - Physical Exam General: Alert, Oriented x3, Cooperative, No apparent distress HEENT: Atraumatic, PERRLA, EOMI, Normocephalic Oral: Moist Mucosa, No Gingival or Mucosal Lesions/ Ulcerations Neck: Supple, No JVD, Negative Carotid Bruits, Trachea Midline, Thyroid Normal Size and Texture Lungs: Clear to auscultation, Normal air movement, No rhonchi, No wheeze, No rales Cardiovascular: Regular rate, Regular Rhythm, Normal S1, Normal S2, PMI Normal Abdomen: Bowel Sounds Present, Soft, Non Tender, Non-Distended, No Hepato-splenomegaly Extremities: No clubbing, No cyanosis, No edema Skin: No breakdown, Rash Present Lymphatic: No Cervical, Supraclavicular, or Inguinal Adenopathy Neurological: Cranial nerves II-XII grossly intact, Neuro grossly intact Psych/Mental Status: Normal Affect, Appropriate Vital Signs Temp Pulse Resp BP Pulse Ox 98.4 F 67 18 139/63 H 99 01/22/18 08:37 01/22/18 08:37 01/22/18 08:37 01/22/18 08:37 01/22/18 08:37 Oxygen Delivery Method Room Air Weight: 183 lb Body Mass Index (BMI) 34.5 Finger Stick Blood Glucose 126 Intake and Output for Last 24 Hours Intake Total 1310 / 1310 2419 / 2419 1100 / 1100 Output Total 3300 / 3300 2350 / 2350 800 / 800 Balance -1989 / 69 / 69 300 / 300 Microbiology Past 72 Hours 01/20/18 08:35 Blood Culture - Preliminary POC Glucose POC Glucose 108 100 114 H POC Glucose 125 H Microbiology 01/20/18 08:35 Blood Culture (Wb) - Right Hand Blood Culture - Preliminary No growth in 48 hours. 01/20/18 08:20 Blood Culture (Wb) - Right Hand Blood Culture - Preliminary No growth in 48 hours. Discharge Activity: Return to Normal Activity Weight Bearing Status: Weight bearing as tolerated Call your doctor if you observe: Fever of 101 or Higher, Shortness of breath, Dizziness, Fainting spells, Chest pain, Increased palpitations (irregular heartbeat), Uncontrolled pain Home Medications: Medications to take at Discharge Butalbital/Aspirin/Caffeine [Fiorinal 50-325-40 mg Capsule] 1 tab PO DAILY PRN PRN 03/21/13 Fluoxetine [Prozac] 20 mg PO DAILY 03/21/13 Multivitamins,Therapeutic [Multivitamin] 1 tablet PO QHS 03/21/13 Omeprazole [Prilosec] 40 mg PO DAILY 03/21/13 Acetaminophen [Tylenol] 500 - 1,000 mg PO Q6H PRN PRN 04/18/17 Aspirin/Acetaminophen/Caffeine [Excedrin Migraine Caplet] 1 each PO PRN PRN 04/18/17 Calm Day 1 cap PO DAILY 04/18/17 Ibuprofen 400 mg PO PRN PRN 04/18/17 Metformin HCl 500 mg PO BID 04/18/17 Anastrozole [Arimidex] 1 mg PO DAILY 01/18/18 Calcium 600-Vit D3 400 Tablet 1 capsule PO DAILY 01/19/18 Calcium Magnesium Vitamin D3 1 cap PO DAILY 01/19/18 Lorazepam [Ativan] 0.5 mg PO Q8H PRN PRN 01/19/18 Ondansetron [Zofran] 8 mg PO Q8H PRN PRN 01/19/18 Cephalexin [Keflex] 500 mg PO Q8 #42 capsule 01/22/18 Following Prescrptions Were Given to Patient: Cephalexin [Keflex] 500 mg PO Q8 #42 capsule Primary Care Physician: Ruth Clark DO [Primary Care Provider] - Please follow up with your Primary Care Physician in: 1 week. Disposition: Home Minutes spent on discharge:: 32 Patient Condition:: Stable Medical Necessity - Tobacco Use Smoking Status: Current some day smoker - Cigarette smoking Meaningful Use Info Meaningful Use Diagnoses (Choose all that apply): None applicable Code Visit Inpatient E AND M: 58721 Disch Hosp 01/22/18 1040 <Electronically signed by Shantel Wong MD> Date Shantel Wong MD Cosigner Signature (if applicable): Date CC: Shantel Wong; Ruth Clark DO; Paul England MD Signed DISCHARGE INSTRUCTION Observed: 01/22/2018 Status: F Source: [place] 8:54 AM [facility] REPOSITORY [facility] Medical Records Department [address] [place] [address] Instructions for Home/Discharge Instructions 01/22/18 0852 MR#: [id number] Acct: [id number] Name: JESSICA RODRIGUEZ Rep #: [id number] : 1955 62 From: Shantel Wong MD PCP: Ruth Clark DO Status: ADM IN - Discharge Diagnoses Current Active Problems: Current Active and Chronic Problems Cellulitis of trunk (Acute) Cancer of breast, intraductal (Chronic) Bacteremia due to group B Streptococcus (Acute) You will use the following diet at home:: Calorie/Carbohydrate Controlled (specify 1200, 1400, etc) - 1800 nayla. Your food should be the consistency of: Regular Discharge Activity: Return to Normal Activity Weight Bearing Status: Weight bearing as tolerated Call your doctor if you observe: Fever of 101 or Higher, Shortness of breath, Dizziness, Fainting spells, Chest pain, Increased palpitations (irregular heartbeat), Uncontrolled pain Allergies/Adverse Reactions: Allergies shellfish derived Allergy (Mild, Verified 01/19/18 07:35) Hives iodine Allergy (Verified 01/19/18 07:35) Hives liraglutide [From Victoza] Adverse Reaction (Verified 01/19/18 07:35) Nausea, VOMITING IV DYE Allergy (Mild, Uncoded 01/19/18 07:35) Hives Medications to take at Discharge Butalbital/Aspirin/Caffeine [Fiorinal 50-325-40 mg Capsule] 1 tab PO DAILY PRN PRN 03/21/13 Fluoxetine [Prozac] 20 mg PO DAILY 03/21/13 Multivitamins,Therapeutic [Multivitamin] 1 tablet PO QHS 03/21/13 Omeprazole [Prilosec] 40 mg PO DAILY 03/21/13 Acetaminophen [Tylenol] 500 - 1,000 mg PO Q6H PRN PRN 04/18/17 Aspirin/Acetaminophen/Caffeine [Excedrin Migraine Caplet] 1 each PO PRN PRN 04/18/17 Calm Day 1 cap PO DAILY 04/18/17 Ibuprofen 400 mg PO PRN PRN 04/18/17 Metformin HCl 500 mg PO BID 04/18/17 Anastrozole [Arimidex] 1 mg PO DAILY 01/18/18 Calcium 600-Vit D3 400 Tablet 1 capsule PO DAILY 01/19/18 Calcium Magnesium Vitamin D3 1 cap PO DAILY 01/19/18 Lorazepam [Ativan] 0.5 mg PO Q8H PRN PRN 01/19/18 Ondansetron [Zofran] 8 mg PO Q8H PRN PRN 01/19/18 Cephalexin [Keflex] 500 mg PO Q8 #42 capsule 01/22/18 The following prescriptions were given: Cephalexin [Keflex] 500 mg PO Q8 #42 capsule Primary Care Physician: Ruth Clark DO [Primary Care Provider] - Please follow up with your Primary Care Physician in: 1 week. Test Results: Test results from this visit will be discussed in further detail at your follow-up appointment, if applicable. 01/22/18 0854 <Electronically signed by Shantel Wong MD> Date Shantel Wong MD CC: Ruth Clark DO; Paul England MD BEDSIDE GLUCOSE Collected: 01/22/2018 Status: F Source: [place] 6:47 AM [facility] REPOSITORY TYPE CODE TESTS RESULT OUT OF RANGE REFERENCE UNITS LAB L501.080 70-110 mg/dL Normal BEDSIDE GLU 108 Result Comment: MANAGEMENT OF PATIENT CARE PER NURSING PROTOCOL Performed By: #### L501.080 #### [facility] Point of Care [address] [place], [place] [address] BEDSIDE GLUCOSE Collected: 01/21/2018 Status: F Source: [place] 9:32 PM [facility] REPOSITORY TYPE CODE TESTS RESULT OUT OF RANGE REFERENCE UNITS LAB L501.080 70-110 mg/dL Normal BEDSIDE GLU 100 Result Comment: MANAGEMENT OF PATIENT CARE PER NURSING PROTOCOL Performed By: #### L501.080 #### [facility] Point of Care [address] [place] [address] BEDSIDE GLUCOSE Collected: 01/21/2018 Status: F Source: [place] 5:15 PM [facility] REPOSIT[facility] TYPE CODE TESTS RESULT OUT OF REFERENCE UNITS RANGE LAB L501.080 70-110 mg/dL High BEDSIDE GLU 114 Result Comment: MANAGEMENT OF PATIENT CARE PER NURSING PROTOCOL Performed By: #### L501.080 #### [facility] Point of Care [address] [place] [address] CONSULTATION Observed: 01/21/2018 Status: F Source: [place] 1:34 PM [facility] REPOSITORY [facility] Medical Records Department [address] [place] [address] Consultation 01/21/18 1326 MR#: [id number] Acct: [id number] Name: JESSICA RODRIGUEZ Rep #: [id number] : 1955 62 From: Paul England MD PCP: Ruth Clark DO Status: ADM IN Y Location: [place] [address] Problem List (1) Bacteremia due to group B Streptococcus Status: Acute Reason for Consult: bacteremia Consulted by: Dr. Wong History of Present Illness: The patient is a 62 year old F with h/o breast cancer now s/p bilateral mastectomy, chemo, and radiation who presented 01/19 with one day history of abd redness, pain, and itching. Has intermittent skin opening around R mastectomy site, no new drainage. Had similar episode a month ago, went to ED, resolved with dose of ceftriaxone and 10 days of augmentin. No new inciting events. Sx returned 01/18, associated with fever and chills. Called oncologist, sent to ED, given ceftriaxone and rx for augmentin. Bcx turned (+), and she was called to come back to hospital. Vanc started, now stopped, on ceftriaxone since Bcx identified as GBS. Feeling better, no further fever, redness much improved. Full ROS performed and neg except as noted above. - Medical History Past Medical History (Chronic Problems): Chronic Problems Cancer of breast, intraductal (Chronic) Rheumatoid arthritis (Chronic) Obesity (Chronic) History of cigarette smoking unknown (Chronic) Diabetes mellitus type II, controlled (Chronic) Hyperlipidemia (Chronic) Hypertension (Chronic) Allergies/Adverse Reactions: Allergies shellfish derived Allergy (Mild, Verified 01/19/18 07:35) Hives iodine Allergy (Verified 01/19/18 07:35) Hives liraglutide [From Victoza] Adverse Reaction (Verified 01/19/18 07:35) Nausea, VOMITING IV DYE Allergy (Mild, Uncoded 01/19/18 07:35) Hives Home Medications: Ambulatory Orders Medication Instructions Recorded Butalbital/Aspirin/Caffeine 1 tab PO DAILY PRN PRN 03/21/13 - Social History Tobacco Use: cigarettes Vital Signs Temp Pulse Resp BP Pulse Ox 98.7 F 76 18 125/53 H 99 01/21/18 08:30 01/21/18 08:30 01/21/18 08:30 01/21/18 08:30 01/21/18 08:30 Oxygen Delivery Method Room Air Weight: 83.007 kg Body Mass Index (BMI) 34.5 Finger Stick Blood Glucose 126 Laboratory Tests Past 24 Hrs Vancomycin Trough 5.2 - Other Studies Radiology: [] Other Studies: [] Route of nutrition/ use of supplements: [] Nutritional Intake: [] IV Site: [] Mukherjee Catheter: [] - Physical Exam General: Alert, Oriented x3, Cooperative, No apparent distress HEENT: Atraumatic, PERRLA, EOMI Neck: Supple, No Nodes Lungs: Clear to auscultation, Normal air movement Cardiovascular: Regular rate, Regular Rhythm, No murmurs Abdomen: Soft, Non Tender, Non-Distended Extremities: No edema Skin: Rash Present - over abd, nontender, fading erythema IV Site: Peripheral, without redness Musculoskeletal: No Tenderness to Palpation of Joints or Extremities Neurological: Cranial nerves II-XII grossly intact - Assessment/Plan Antibiotics: [] Assessment/Plan: [] Active and Suspected Problems Cellulitis of trunk (Acute) GBS bacteremia from abd cellulitis - likely source is skin opening around R mastectomy site, now healed. Low suspicion for residual abscess, so no need for CT scan at this point. Much improved, no further fever, repeat bcx neg so far. Cont ceftriaxone, plan on home with keflex 500mg tid for 2 week course. Will follow, thank you. 01/21/18 5691 <Electronically signed by Paul England MD> Date Paul England MD Cosigner Signature (if applicable): Date CC: Ruth Clark DO; Paul England MD Signed BEDSIDE GLUCOSE Collected: 01/21/2018 Status: F Source: [place] 11:27 AM [facility] REPOSITORY TYPE CODE TESTS RESULT OUT OF REFERENCE UNITS RANGE LAB L501.080 70-110 mg/dL High BEDSIDE GLU 125 Result Comment: MANAGEMENT OF PATIENT CARE PER NURSING PROTOCOL Performed By: #### L501.080 #### [facility] Point of Care [address] [place], [place] [address] BEDSIDE GLUCOSE Collected: 01/21/2018 Status: F Source: [place] 5:50 AM [facility] REPOSIT[facility] TYPE CODE TESTS RESULT OUT OF RANGE REFERENCE UNITS LAB L501.080 70-110 mg/dL Normal BEDSIDE GLU 107 Result Comment: MANAGEMENT OF PATIENT CARE PER NURSING PROTOCOL Performed By: #### L501.080 #### [facility] Point of Care [address] [place], [place] [address] VANCOMYCIN, TROUGH Collected: 01/21/2018 Status: F Source: [place] LEVEL 3:32 AM [facility] REPOSIT[facility] Order Comment: Comments: DRAW TROUGH 30 MIN PRIOR TO DOSE AT 04:00 Time Medication is to be Given? 0400 TYPE CODE TESTS RESULT OUT OF RANGE REFERENCE UNITS LAB L501.8820 5.0-15.0 ug/mL Normal VANCO, TROUGH 5.2 Result Comment: VANCOMYCIN STANDARED DRUG THERAPY TROUGH LEVEL: 5.0 - 15.0 mg/L VANCOMYCIN HIGH INTENSITY THERAPY TROUGH LEVEL: 15.0 - 20.0 mg/L High Intensity therapy recommended for serious life threatening infections include: - Meningitis -Endocarditis -Pneumonia (Ventilator/Healtcare Associated) -Sepsis PLEASE CONTACT PHARMACY SERVICES (#[phone]) FOR INTERPRETATION OF RESULTS. Performed By: #### L501.8820 #### [facility] [address] [place], [place], [id number] CNPN Observed: 01/21/2018 Status: COMPLETED Source: [place] 12:00 AM [facility] REPOSITORY Telephone (HEMAWS) MICHAELJESSICA Castillo ([id number]) 1955 F Date Time Provider Department 01/21/18 HARPREET PANTOJA During your visit today, we recorded the following information about you: Julieta Carballo Psr 01/21/2018 8:52 AM Signed Alba please give patient a call back. She would like Alba to give her a call back. She did not state the reason but would like the call back. Yamilet Wolf RN 01/21/2018 12:09 PM Signed Call back to patient. She was calling to let Dr. Pantoja and myself know that she has been admitted to [facility]. She was in to ER on Sunday for cellulitis that she has been treated for previously early December. This has returned per patient. She was sent home from ER on Augmentin po. She was then called back on Sunday to return for admission to hospital after blood cultures resulted positive for bacteremia. Patient is still interested in clinical trial but not in a hurry at this point. She started her Rx for Arimidex this am. She has a follow up appointment with Dr. Pantoja on 01/14/18 at 11:10am and agreeable to keep that appt. and discuss moving forward with clinical trial at that point. Relayed above information to Dr. Pantoja and is ok with plan and will check on patient in hospital as he was not aware that she had been admitted. Patient has my contact number if any further needs in the interim. Yamilet Wolf RN Allergies As of Date: 01/21/2018 Noted Allergy Reaction IV DYE (IODINATED CONTRAST- ORAL *05/21/2006 4 - Hives SHELLFISH 05/21/2006 4 - Hives VICTOZA (LIRAGLUTIDE) 03/30/2017 5 - Intolerance Date Reviewed: 01/02/2018 Reviewed by: Loli Addison - Fully Assessed Reason for Visit: Question for Colleen [Other] Reason For Visit History Recorded Prescriptions as of 01/21/2018 Sig: ANASTROZOLE 1 MG TABLET Take 1 tablet by mouth once d* FUROSEMIDE 20 MG TABLET Take 1 tablet by mouth once d* POTASSIUM CHLORIDE ER 20 MEQ * Take 1 tablet by mouth once d* DIPHENHYDRAMINE 25 MG-ACETAMI* Take 1 tablet by mouth at bed* ONDANSETRON HCL 8 MG TABLET Take 1 tablet by mouth every * LIDOCAINE-PRILOCAINE 2.5 %-2.* Apply 1 application to affect* MELATONIN 3 MG TABLET Take 6 mg by mouth daily at b* OTC NUTRITIONAL SUPPLEMENT day IBUPROFEN 200 MG TABLET Take 600 mg by mouth twice da* METFORMIN ER 500 MG TABLET,EX* Take 500 mg by mouth twice da* SUMATRIPTAN 100 MG TABLET Take 100 mg by mouth as neede* OMEPRAZOLE 40 MG CAPSULE,CARLYN* Take 40 mg by mouth once adia* MOLFEMWXXS-IBIGXVW-ZLUTUMHP 5* Take 1 capsule by mouth once * TRAMADOL 50 MG TABLET Take 50 mg by mouth three lizeth* * FLUOXETINE 20 MG CAPSULE Take 20 mg by mouth once adia* * MULTIVITAMIN TABLET Take one(1) tablet daily. 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 Lymphedema [I89.0] INVALID FOR* Encounter Status:Closed by YAMILET WOLF on 01/21/18 BEDSIDE GLUCOSE Collected: 01/20/2018 Status: F Source: [place] 8:19 PM [facility] REPOSITORY TYPE CODE TESTS RESULT OUT OF REFERENCE UNITS RANGE LAB L501.080 70-110 mg/dL High BEDSIDE GLU 119 Result Comment: MANAGEMENT OF PATIENT CARE PER NURSING PROTOCOL Performed By: #### L501.080 #### [facility] Point of Care [facility] [place] [address] BEDSIDE GLUCOSE Collected: 01/20/2018 Status: F Source: [place] 4:38 PM [facility] REPOSITORY TYPE CODE TESTS RESULT OUT OF RANGE REFERENCE UNITS LAB L501.080 70-110 mg/dL Normal BEDSIDE GLU 104 Result Comment: MANAGEMENT OF PATIENT CARE PER NURSING PROTOCOL Performed By: #### L501.080 #### [facility] Point of Care [address] [place] [address] BEDSIDE GLUCOSE Collected: 01/20/2018 Status: F Source: [place] 11:13 AM [facility] REPOSITORY TYPE CODE TESTS RESULT OUT OF RANGE REFERENCE UNITS LAB L501.080 70-110 mg/dL Normal BEDSIDE GLU 104 Result Comment: MANAGEMENT OF PATIENT CARE PER NURSING PROTOCOL Performed By: #### L501.080 #### [facility] Point of Care [address] [place] [address] Observed: 01/20/2018 Status: F Source: [place] CULTURE, BLOOD (WB) 8:35 AM [facility] REPOSITORY Has pt arrived? Y BC No growth in 5 days. Performed By: #### M200.1000 #### [facility] [address] [place], [address] Observed: 01/20/2018 Status: F Source: [place] CULTURE, BLOOD (WB) 8:20 AM [facility] REPOSITORY Has pt arrived? Y BC No growth in 5 days. Performed By: #### M200.1000 #### [facility] [address] [place], [address] BEDSIDE GLUCOSE Collected: 01/20/2018 Status: F Source: [place] 6:19 AM [facility] REPOSIT[facility] TYPE CODE TESTS RESULT OUT OF REFERENCE UNITS RANGE LAB L501.080 70-110 mg/dL High BEDSIDE GLU 142 Result Comment: MANAGEMENT OF PATIENT CARE PER NURSING PROTOCOL Performed By: #### L501.080 #### [facility] Point of Care [address] [place] [address] CBC W/DIFF, AUTOMATED Collected: 01/20/2018 Status: F Source: [place] 5:47 AM [facility] REPOSITORY TYPE CODE TESTS RESULT OUT OF RANGE REFERENCE UNITS LAB L100.1000 4.4-11.0 K/mm3 Low WBC 4.2 LAB L100.1200 4.2-5.4 M/mm3 Low RBC 3.70 LAB L100.1300 12.0-15.0 g/dl Low HGB 10.0 LAB L100.1400 37-47 % Low HCT 31.4 LAB L100.1500 81-99 fL Normal MCV 84.9 LAB L100.1600 27.0-32.0 pg Normal MCH 27.0 LAB L100.1700 32-36 g/gl Low MCHC 31.8 LAB L100.1810 11.6-14.6 % Normal RDW CV 14.4 LAB L100.1820 35.1-43.9 fl High RDW SD 45.2 LAB L100.1900 150-450 K/mm3 Low PLT 142 LAB L100.2000 6.2-12.0 fl Normal MPV 8.4 LAB L100.2100 47-70 % High NEUT% 70.7 LAB L100.2200 19-41 % Low LY% 14.2 LAB L100.2300 0-10 % High MONO% 11.5 LAB L100.2400 0-5 % Normal EO% 2.9 LAB L100.2500 0-1 % Normal BASO% 0.5 LAB L100.2550 0.0-0.9 % Normal IM GRAN % 0.200 Result Comment: IG% - Immature Granulocytes (promyelocytes, myelocytes and metamyelocytes) > 1% indicates that a LEFT SHIFT is Present. LAB L100.2620 2.0-7.7 X10 3/uL Normal Absolute Neut 2.9 LAB L100.2720 0.83-4.51 X10 3/ul Low Absolute Lymph 0.59 Performed By: #### L100.0100 #### [facility] [address] [place], [place], [id number] COMPREHENSIVE METABOLIC Collected: 01/20/2018 Status: F Source: [facility] 5:47 AM [facility] REPOSITORY TYPE CODE TESTS RESULT OUT OF RANGE REFERENCE UNITS LAB L501.0100 74-106 mg/dL High GLU 126 Result Comment: Fasting Glucose result greater than or equal to 126 mg/dL suggests DIABETES MELLITUS per A.D.A. criteria. Please note revised GLUCOSE reference range effective 2017. LAB L501.1000 7-18 mg/dL Normal BUN 7 LAB L501.1100 0.55-1.02 mg/dL Low CREAT,SERUM 0.51 Result Comment: The validity of the calculated GFR AND GFRAA in patients over 70 years has not been determined. Clinical correlation is essential. LAB L501.1110 >60 mL/min Normal EST GFR 128 Result Comment: Non- GFR Calc LAB L501.1115 >60 mL/min Normal EST GFR - AA 155 Result Comment: GFR Calc LAB L501.1255 ml/min Normal Estimated CRCL 86.31 LAB L501.1300 10-20 RATIO Normal BUN/CRE 13.6 LAB L501.1500 6.4-8. g/dL Low 2 T PROT 5.6 LAB L501.1800 3.2-5. g/dL Low 0 ALB 2.7 LAB L501.1950 2.2-4. g/dL Normal 2 GLOB 2.9 LAB L501.2000 0.9-2. RATIO Normal 4 A/G 0.9 LAB L501.2200 8.5-10 mg/dL Low .1 CA 8.0 LAB L501.4100 15-37 U/L Low AST 14 LAB L501.4305 45-117 U/L Normal ALK P 66 LAB L501.4405 13-56 U/L Normal ALT 19 LAB L501.4600 0.20-1 mg/dL Normal .00 T BILI 0.30 LAB L501.5300 136-14 mmol/L Normal 5 NA 144 LAB L501.5600 3.5-5. mmol/L Normal 1 K 3.8 LAB L501.5900 98-107 mmol/L High CL 112 LAB L501.6100 21.0-3 mmol/L Normal 2.0 CO2 25.0 LAB L501.6200 5-15 Normal GAP 7 Performed By: #### L500.4050 #### [facility] [address] [place], [address] BEDSIDE GLUCOSE Collected: 01/19/2018 Status: F Source: [place] 9:58 PM [facility] REPOSITORY TYPE CODE TESTS RESULT OUT OF REFERENCE UNITS RANGE LAB L501.080 70-110 mg/dL High BEDSIDE GLU 114 Result Comment: MANAGEMENT OF PATIENT CARE PER NURSING PROTOCOL Performed By: #### L501.080 #### [facility] Point of Care [address] [place] [address] BEDSIDE GLUCOSE Collected: 01/19/2018 Status: F Source: [place] 4:47 PM [facility] REPOSITORY TYPE CODE TESTS RESULT OUT OF REFERENCE UNITS RANGE LAB L501.080 70-110 mg/dL High BEDSIDE GLU 125 Result Comment: MANAGEMENT OF PATIENT CARE PER NURSING PROTOCOL Performed By: #### L501.080 #### [facility] Point of Care [address] [place] [address] BEDSIDE GLUCOSE Collected: 01/19/2018 Status: F Source: [place] 11:54 AM [facility] REPOSITORY TYPE CODE TESTS RESULT OUT OF REFERENCE UNITS RANGE LAB L501.080 70-110 mg/dL High BEDSIDE GLU 128 Result Comment: MANAGEMENT OF PATIENT CARE PER NURSING PROTOCOL Performed By: #### L501.080 #### [facility] Point of Care [address] [place] [address] HISTORY AND PHYSICAL Observed: 01/19/2018 Status: F Source: [place] EXAM 10:57 AM [facility] Medical Records Department [address] [place] [address] History and Physical 01/19/18 1029 MR#: [id number] Acct: [id number] Name: JESSICA RODRIGUEZ Rep #: [id number] : 1955 62 From: Bautista Baltazar MD PCP: Ruth Clark DO Status: ADM IN Y Location: [place]3 [id number] ADDENDUM by Bautista Baltazar MD on 01/19/18 at 1057 Code Visit Advanced directive/end of life goal: Patient does not want artificial life support including intubation, tube feed, ventilator and/chest compression. Patient is DNR CC Arrest. 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 This was also discussed with the patient's Mr. Niles Rodriguez. total time spent in axmb-cw-reli encounter in discussion of advanced directive 18 minutes. Procedures: 16476 Advncd Care Plan 30 Min 01/19/18 1057 <Electronically signed by Bautista Baltazar MD> Date Bautista Baltazar MD cc: Ruth Clark DO; Bautista Baltazar MD * Signed Problem List (1) Cellulitis of trunk Status: Acute (2) Cancer of breast, intraductal Status: Chronic (3) Rheumatoid arthritis Status: Chronic (4) Obesity Status: Chronic (5) History of cigarette smoking unknown Status: Chronic (6) Diabetes mellitus type II, controlled Status: Chronic (7) Hyperlipidemia Status: Chronic (8) Hypertension Status: Chronic History of Present Illness Date of Admission: 01/19/18 Chief Complaint: Rash in chest and abdomen The patient is a 62 year old F with history of intraductal CA left breast, probably a stage IIb as per the patient, status post bilateral mastectomy and left axillary lymphadenectomy completed chemotherapy and radiotherapy, last chemo in October 2017 and last radiation in December 2017, currently on Arimidex, follows Dr. Pantoja came to ER with redness, swelling, fever ER yesterday and today. Yesterday she was given 2 g of Rocephin and was sent home on Augmentin. Initially cellulitis was restricted to chest, started from left breast area but today it has spread to the abdomen. Temperature at home 101.7 Fahrenheit. Patient had similar cellulitis in recent past and was treated with IV Rocephin and Augmentin. Initial lab of 01/18 shows mild leukocytosis of 12.4 thousand, neutrophil 87%, lymphocyte 6%. She has history of type 2 diabetes mellitus/glucose is well controlled, 128 mg percent on BMP. Lactic acid is normal. Blood culture on both bottles drawn on 01/18 shows gram-positive cocci in chains on Gram stain. She is further admitted for failure of outpatient treatment Past Medical History Past Medical History (Chronic Problems): Chronic Problems Cancer of breast, intraductal (Chronic) Rheumatoid arthritis (Chronic) Obesity (Chronic) History of cigarette smoking unknown (Chronic) Diabetes mellitus type II, controlled (Chronic) Hyperlipidemia (Chronic) Hypertension (Chronic) Allergies shellfish derived Allergy (Mild, Verified 01/19/18 07:35) Hives iodine Allergy (Verified 01/19/18 07:35) Hives liraglutide [From Victoza] Adverse Reaction (Verified 01/19/18 07:35) Nausea, VOMITING IV DYE Allergy (Mild, Uncoded 01/19/18 07:35) Hives Home Medications: Ambulatory Orders Medication Instructions Recorded Butalbital/Aspirin/Caffeine 1 tab PO DAILY PRN PRN 03/21/13 Surgical History: - - Breast biopsy Heart cath Psychiatric History: No pertinent psych hx 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 Denies: Abdominal Pain, Vomiting Genitourinary: Denies: Dysuria Musculoskeletal: Denies: Joint Pain, Joint Tenderness Skin: Reports: Rash, Skin Changes - Radiation changes of left breast skin. Denies: Wounds Neurological: Denies: Numbness, Tingling, Focal weakness Psychiatric: Denies: Anxiety, Depression, Homicidal Ideations, Suicidal Ideations Hematologic/ Lymphatic: Denies: Easy Bruising, Easy Bleeding VTE Information - Inpt Only VTE Present on Admission: No VTE Mechan Device Prophylaxis: SCD's VTE Pharm Prophylaxis ordered?: Yes Patient Problems: Active and Suspected Problems Cellulitis of trunk (Acute) - Physical Exam General: Alert, Oriented x3, Cooperative HEENT: Atraumatic, PERRLA, EOMI, Normocephalic Neck: Supple, No JVD, Negative Carotid Bruits Lungs: Clear to auscultation, Normal air movement, No rhonchi, No wheeze, No rales Cardiovascular: Regular rate, Regular Rhythm, Normal S1, Normal S2, No murmurs Abdomen: Bowel Sounds Present, Soft, Non Tender, Non-Distended Extremities: No edema, Capillary Refill Less than 3 Seconds Skin: Rash Present - Erythematous rash present over chest and trunk diffuse. Radiation dermatitis changes over left pectoral region. Musculoskeletal: No Tenderness to Palpation of Joints or Extremities Neurological: Cranial nerves II-XII grossly intact, Deep Tendon Reflexes 2+/4 and Symmetrical, Neuro grossly intact, Motor Exam 5/5 strength throughout Psych/Mental Status: Normal Affect, Appropriate Vital Signs Temp Pulse Resp BP Pulse Ox 99.0 F 78 16 127/57 H 100 01/19/18 10:03 01/19/18 10:03 01/19/18 10:03 01/19/18 10:03 01/19/18 10:03 Oxygen Delivery Method Room Air Weight: 183 lb Body Mass Index (BMI) 34.5 Finger Stick Blood Glucose 126 Laboratory Tests Past 24 Hrs Lactic Acid 1.2 MRSA (PCR) Pending Assessment/Plan All Active Problems Cellulitis of trunk (Acute) The patient is a 62 year old F with history of intraductal CA left breast, probably a stage IIb as per the patient, status post bilateral mastectomy and left axillary lymphadenectomy completed chemotherapy and radiotherapy, last chemo in October 2017 and last radiation in December 2017, currently on Arimidex, follows Dr. Pantoja came to ER with redness, swelling, fever ER yesterday and today. Yesterday she was given 2 g of Rocephin and was sent home on Augmentin. Initially cellulitis was restricted to chest, started from left breast area but today it has spread to the abdomen. Temperature at home 101.7 Fahrenheit. Patient had similar cellulitis in recent past and was treated with IV Rocephin and Augmentin. Initial lab of 01/18 shows mild leukocytosis of 12.4 thousand, neutrophil 87%, lymphocyte 6%. She has history of type 2 diabetes mellitus/glucose is well controlled, 128 mg percent on BMP. Lactic acid is normal. Blood culture on both bottles drawn on 01/18 shows gram-positive cocci in chains on Gram stain. On 01/18, temperature was 101.7 Fahrenheit in ED. She is further admitted for failure of outpatient treatment 1. SIRS (fever, tachycardia and mild leukocytosis) secondary to cellulitis of chest and abdominal wall, most likely from Streptococcus: Patient is being admitted on regular MedSurg floor. IV antibiotic vancomycin started in ER and will continue it. IV fluid normal saline. Monitor intake/output. MRSA nasal screen ordered. She denies lower urinary tract symptoms, flulike symptoms, cough or symptoms suggestive of bronchitis or pneumonia. Labs ordered. 2. 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 Pantoja. There is no oncologist documentation/note in our system. Follow-up with Dr. Pantoja as an outpatient. Hold Arimidex 3. Diabetes mellitus type 2 with good glycemic control: Accu- Chek before meals and at bedtime and cover with NovoLog sliding scale. Home medications continued. A1c ordered. 4. Other chronic comorbidities include rheumatoid arthritis, hypertension and hyperlipidemia: Home medication reconciliation done. Multiple comorbidities complicates the present care and expect difficult and delay recovery DVT prophylaxis: On Lovenox 40 mg subcu daily. Code Visit Inpatient E AND M: 54512 Init Hosp L3 01/19/18 1050 <Electronically signed by Bautista Baltazar MD> Date Bautista Baltazar MD Cosigner Signature: Date (if applicable) CC: Ruth Clark DO; Bautista Baltazar MD Signed ERYTHROCYTE SED RATE Collected: 01/19/2018 Status: F Source: [place] 10:25 AM [facility] REPOSITORY TYPE CODE TESTS RESULT OUT OF RANGE REFERENCE UNITS LAB L102.0000 0-30 mm/hr Normal SED RATE 12 Performed By: #### L101.9900, L501.9985 #### [facility] [address] [place], [place], [address] HEMOGLOBIN A1C Collected: 01/19/2018 Status: F Source: [place] 10:25 AM [facility] REPOSITORY TYPE CODE TESTS RESULT OUT OF RANGE REFERENCE UNITS LAB L501.9985 4.2-6.3 % Normal HGB A1C 5.9 Performed By: #### L101.9900, L501.9985 #### [facility] [address] [place], [address] M R STAPH AUREUS Collected: 01/19/2018 Status: F Source: [place] DNA BY PCR 10:25 AM [facility] REPOSITORY TYPE CODE TESTS RESULT OUT OF RANGE REFERENCE UNITS LAB L8200.1100 Negative Normal MRSA Negative RESULT Performed By: #### L8200.1000 #### [facility] [address] [facility] [place], [address] LACTIC ACID Collected: 01/19/2018 Status: F Source: [place] 8:15 AM [facility] REPOSITORY Order Comment: Yes/No query for Sepsis Lactate Rule Y TYPE CODE TESTS RESULT OUT OF RANGE REFERENCE UNITS LAB L503.6005 0.4-2.0 mmol/L Normal LACTIC ACID 1.2 Performed By: #### L503.6005 #### [facility] [address] [place], [address] EMERGENCY DEPARTMENT Observed: 01/19/2018 Status: F Source: [place] SUMMARY 12:29 AM [facility] REPOSITORY [facility] Medical Records Department [address] [place] [id number] Emergency Department Summary 01/18/18 2137 MR#: [id number] Acct: [id number] Name: JESSICA RODRIGUEZ Rep #: [id number] : 1955 62 From: Ritchie Mota MD PCP: Ruth Clark DO Status: DEP ER - ER Visit [...] it seemed to alleviate her course of cellulitis. Patient denies any other infectious signs or [...] Test Results: CBC demonstrates leukocytosis 12.4, lactic acid negative. Remainder the patient's laboratory workup unremarkable. Blood cultures are pending. Emergency Department Course and Treatment: Patient presented with cellulitis. Laboratory workup was unremarkable except for leukocytosis. Patient was given Tylenol and 2 g of Rocephin. Repeat evaluation shows the patient to be nontoxic- appearing. At this point I believe she is appropriate for initial outpatient treatment. She was given strict return instructions, was started on a course of Augmentin, and she will follow-up with her oncologist early next week. Disposition: Discharge Impression: 1. Right chest cellulitis This note was generated with Musicane dictation software. It may contain incorrect words, spelling, and punctuation that were not noted in review of the chart prior to signing ED Disposition - Plan for ED Patient: Disposition: Home or Assisted Living Chief Complaint: Cellulitis Diagnosis: Cellulitis Instructions: Discharge Instructions for Cellulitis Prescriptions: Amox/Clavulanate Tablet [Augmentin Tablet] 875 mg PO Q12H #20 tab Referrals: Ruth Clark DO [Primary Care Provider] - 3-5 Days What to do if you have Problems For any increased pain, shortness of breath, bleeding, nausea or vomiting, chest pain, or any unexpected problems, contact your Primary Care Provider. Call [facility] ([phone]) or report to the closest Emergency Room. Call 911 if necessary. 01/19/18 0029 <Electronically signed by Ritchie Mota MD> Date Ritchie Mota MD Cosigner Signature (If Indicated): Date CC: Ruth Clark DO Observed: 01/18/2018 Status: F Source: [place] CULTURE, BLOOD (WB) 8:30 PM [facility] REPOSITORY AEROBIC AND ANAEROBIC BOTTLE GRAM STAIN: GRAM POSITIVE COCCI IN CHAINS CALLED TO [facility]IE[facility] COHEN 01/19/18 0623 BY NORBERTO ORGANISM 1: Streptococcus group B Amount Growth Growth Streptococcus group B: REACTION Ampicillin $ <=0.25 S Clindamycin $$ <=0.25 R Erythromycin $ 2 R Vancomycin $ 0.5 S (NF) indicates non-formulary drug at [facility]. Approval by Infectious Disease Specialist required before non-formulary drugs may be ordered and/or dispensed. * CLSI guidelines does not recommend testing of cephalosporins. This interpretation is deduced from Beta-lactam/penicillin results. Performed By: #### M200.1000, M100.636 #### [facility] [address] [facility] [place], [place], [address] Observed: 01/18/2018 Status: F Source: [facility] GPC ID 8:30 PM [facility] REPOSITORY GPC ID Staphylococcus sp. Not Detected Enterococcus sp. Not Detected Streptococcus spp. Streptococcus agalactiae (Grp. B. Strep) Listeria spp Not Detected NAAT METHOD Testing was performed using nucleic acid amplification ORGANISM 1: Streptococcus agalactiae (B) Performed By: #### M200.1000, M100.636 #### [facility] [address] [facility] [place], [address] CBC W/DIFF, AUTOMATED Collected: 01/18/2018 Status: F Source: [place] 8:10 PM [facility] REPOSITORY TYPE CODE TESTS RESULT OUT OF RANGE REFERENCE UNITS LAB L100.1000 4.4-11.0 K/mm3 High WBC 12.4 LAB L100.1200 4.2-5.4 M/mm3 Normal RBC 4.54 LAB L100.1300 12.0-15.0 g/dl Normal HGB 12.4 LAB L100.1400 37-47 % Normal HCT 38.2 LAB L100.1500 81-99 fL Normal MCV 84.1 LAB L100.1600 27.0-32.0 pg Normal MCH 27.3 LAB L100.1700 32-36 g/gl Normal MCHC 32.5 LAB L100.1810 11.6-14.6 % Normal RDW CV 14.2 LAB L100.1820 35.1-43.9 fl Normal RDW SD 43.8 LAB L100.1900 150-450 K/mm3 Normal PLT 203 LAB L100.2000 6.2-12.0 fl Normal MPV 8.5 LAB L100.2100 47-70 % High NEUT% 87.1 LAB L100.2200 19-41 % Low LY% 5.9 LAB L100.2300 0-10 % Normal MONO% 5.6 LAB L100.2400 0-5 % Normal EO% 1.1 LAB L100.2500 0-1 % Normal BASO% 0.2 LAB L100.2550 0.0-0.9 % Normal IM GRAN % 0.100 Result Comment: IG% - Immature Granulocytes (promyelocytes, myelocytes and metamyelocytes) > 1% indicates that a LEFT SHIFT is Present. LAB L100.2620 2.0-7.7 X10 3/uL High Absolute Neut 10.8 LAB L100.2720 0.83-4.51 X10 3/ul Low Absolute Lymph 0.73 Performed By: #### L100.0100 #### [facility] [address] [place], [place], [address] COMPREHENSIVE METABOLIC Collected: 01/18/2018 Status: F Source: [facility] 8:10 PM [facility] REPOSITORY TYPE CODE TESTS RESULT OUT OF RANGE REFERENCE UNITS LAB L501.0100 74-106 mg/dL High GLU 128 Result Comment: Fasting Glucose result greater than or equal to 126 mg/dL suggests DIABETES MELLITUS per A.D.A. criteria. Please note revised GLUCOSE reference range effective 2017. LAB L501.1000 7-18 mg/dL Normal BUN 11 LAB L501.1100 0.55-1.02 mg/dL Normal CREAT,SERUM 0.77 Result Comment: The validity of the calculated GFR AND GFRAA in patients over 70 years has not been determined. Clinical correlation is essential. LAB L501.1110 >60 mL/min Normal EST GFR 81 Result Comment: Non- GFR Calc LAB L501.1115 >60 mL/min Normal EST GFR - AA 97 Result Comment: GFR Calc LAB L501.1255 ml/min Normal Estimated CRCL 57.16 LAB L501.1300 10-20 RATIO Normal BUN/CRE 14.3 LAB L501.1500 6.4-8. g/dL Normal 2 T PROT 7.5 LAB L501.1800 3.2-5. g/dL Normal 0 ALB 4.0 LAB L501.1950 2.2-4. g/dL Normal 2 GLOB 3.5 LAB L501.2000 0.9-2. RATIO Normal 4 A/G 1.1 LAB L501.2200 8.5-10 mg/dL Normal .1 CA 8.7 LAB L501.4100 15-37 U/L Normal AST 16 LAB L501.4305 45-117 U/L Normal ALK P 91 LAB L501.4405 13-56 U/L Normal ALT 24 LAB L501.4600 0.20-1 mg/dL Normal .00 T BILI 0.40 LAB L501.5300 136-14 mmol/L Normal 5 NA 138 LAB L501.5600 3.5-5. mmol/L Normal 1 K 4.0 LAB L501.5900 98-107 mmol/L Normal CL 103 LAB L501.6100 21.0-3 mmol/L Normal 2.0 CO2 28.0 LAB L501.6200 5-15 Normal GAP 7 Performed By: #### L500.4050 #### [facility] [address] [place], [place], [id number] LACTIC ACID Collected: 01/18/2018 Status: F Source: [place] 8:10 PM [facility] REPOSITORY Order Comment: Yes/No query for Sepsis Lactate Rule Y TYPE CODE TESTS RESULT OUT OF RANGE REFERENCE UNITS LAB L503.6005 0.4-2.0 mmol/L Normal LACTIC ACID 1.6 Performed By: #### L503.6005 #### [facility] [address] [place], [place], [address] PROTHROMBIN TIME W/INR Collected: 01/18/2018 Status: F Source: [place] 8:10 PM [facility] REPOSITORY TYPE CODE TESTS RESULT OUT OF RANGE REFERENCE UNITS LAB L300.4150 11.7-14.9 SECONDS Normal PROTIME 13.1 LAB L300.4200 Normal INR 1.0 Performed By: #### L300.3900, L300.4310 #### [facility] [address] [place], [address] PARTIAL THROMBOPLAST Collected: 01/18/2018 Status: F Source: [place] TIME 8:10 PM [facility] REPOSITORY TYPE CODE TESTS RESULT OUT OF RANGE REFERENCE UNITS LAB L300.4310 24.1-36.2 Seconds Normal PTT 26.9 Performed By: #### L300.3900, L300.4310 #### [facility] [address] [place], [address] Observed: 01/18/2018 Status: F Source: [place] CULTURE, BLOOD (WB) 8:10 PM [facility] REPOSITORY BC AEROBIC AND ANAEROBIC BOTTLE GRAM STAIN: GRAM POSITIVE COCCI IN CHAINS CALLED TO DIEGO COHEN 01/19/18 0623 BY LENIN REFER TO [id number] FOR IDENTIFICATION AND SENSITIVITIES. ORGANISM 1: Gram Positive Cocci Performed By: #### M200.1000 #### [facility] [address] [place], [address] HOSP Observed: 01/16/2018 Status: COMPLETED Source: [place] 12:00 AM [facility] REPOSITORY Patient Update (BRETT) JESSICA RODRIGUEZ ([id number]) 1955 F Date Time Provider Department 01/16/18 YAMILET WOLF) BRETT During your visit today, we recorded the following information about you: Yamilet Wolf RN 01/16/2018 4:32 PM Signed Patient called this am and given and update on time line for enrolling on trial. Patient aware that all side effects from radiation need to be fully resolved prior to randomization. Patient states understanding. Patient states that skin (where XRT boost was given) is better but still red. Definitely not as angry and the stabbing feeling that she had has resolved. The is still some peeling but seems to be getting better each day. (Refer to phone note 01/09/18). And, she is continuing to use Aquaphor. Patient aware that we will wait another week and see how this is doing. Patient agreeable to this. She is also aware that a Rx for Arimidex has been called in. See phone note from yesterday. 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 Patient asking if she can go ahead and start Arimidex now? Patient aware that it is ok to start this medication prior (up to 12 weeks) and then start the study drug later if she is randomized to that treatment arm.per protocol. Dr. Pantoja aware of above and ok if patient starts Arimidex at this time. Patient states that she would like to do this and see how she tolerates. She plans to start tomorrow. Patient denies any issues with swallowing medication. Patient aware that I will call her next week and see how she is doing. Patient agreeable with this plan and has my contact information if needed in interim. Yamilet Wolf RN Allergies As of Date: 01/16/2018 Noted Allergy Reaction IV DYE (IODINATED CONTRAST- ORAL *05/21/2006 4 - Hives SHELLFISH 05/21/2006 4 - Hives VICTOZA (LIRAGLUTIDE) 03/30/2017 5 - Intolerance Date Reviewed: 01/02/2018 Reviewed by: Loli Addison - Fully Assessed Reason for Visit: Clinical Trial Note [Other] Cmt: Theodora [id number]/Kvng Prescriptions as of 01/16/2018 Sig: ANASTROZOLE 1 MG TABLET Take 1 tablet by mouth once d* FUROSEMIDE 20 MG TABLET Take 1 tablet by mouth once d* POTASSIUM CHLORIDE ER 20 MEQ * Take 1 tablet by mouth once d* DIPHENHYDRAMINE 25 MG-ACETAMI* Take 1 tablet by mouth at bed* ONDANSETRON HCL 8 MG TABLET Take 1 tablet by mouth every * LIDOCAINE-PRILOCAINE 2.5 %-2.* Apply 1 application to affect* MELATONIN 3 MG TABLET Take 6 mg by mouth daily at b* OTC NUTRITIONAL SUPPLEMENT day IBUPROFEN 200 MG TABLET Take 600 mg by mouth twice da* METFORMIN ER 500 MG TABLET,EX* Take 500 mg by mouth twice da* SUMATRIPTAN 100 MG TABLET Take 100 mg by mouth as neede* OMEPRAZOLE 40 MG CAPSULE,CARLYN* Take 40 mg by mouth once adia* BCPHJCDIAL-ISYESKF-DYRVIEOG 5* Take 1 capsule by mouth once * TRAMADOL 50 MG TABLET Take 50 mg by mouth three lizeth* * FLUOXETINE 20 MG CAPSULE Take 20 mg by mouth once adia* * MULTIVITAMIN TABLET Take one(1) tablet daily. * CALCIUM + D 600 MG (1,500 MG)* Take one(1) tablet twice adia* * TYLENOL EXTRA STRENGTH 500 MG* Take two(2) tablets every six* Problem List As Of Date 01/16/2018 Noted Resolved Postmenopausal bleeding [N95.0] INVALID FOR* Ovarian cyst [N83.209] INVALID FOR* Malignant neoplasm of upper-outer quadrant of l*INVALID FOR* 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 Lymphedema [I89.0] INVALID FOR* Visit Notes: >> Yamilet (Rn) Luciano SunJan 16, 2018 1:29 PM Status: Signed Patient called this am and given and update on time line for enrolling on trial. Patient aware that all side effects from radiation need to be fully resolved prior to randomization. Patient states understanding. Patient states that skin (where XRT boost was given) is better but still red. Definitely not as angry and the stabbing feeling that she had has resolved. The is still some peeling but seems to be getting better each day. (Refer to phone note 01/09/18). And, she is continuing to use Aquaphor. Patient aware that we will wait another week and see how this is doing. Patient agreeable to this. She is also aware that a Rx for Arimidex has been called in. See phone note from yesterday. 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 Patient asking if she can go ahead and start Arimidex now? Patient aware that it is ok to start this medication prior (up to 12 weeks) and then start the study drug later if she is randomized to that treatment arm.per protocol. Dr. Pantoja aware of above and ok if patient starts Arimidex at this time. Patient states that she would like to do this and see how she tolerates. She plans to start tomorrow. Patient denies any issues with swallowing medication. Patient aware that I will call her next week and see how she is doing. Patient agreeable with this plan and has my contact information if needed in interim. Yamilet Wolf RN Encounter Status:Closed by YAMILET WOLF on 01/17/18 EKG1 Observed: 01/07/2018 Status: F Source: [place] 9:57 AM [facility] REPOSITORY NAME : MICHAELJYOTHIJESSICA PID : [id number] : 1955 Gender : Female Race : ORD : Procedure Date : Jan 07 2018 09:57:01 Edit Date : Jan 08 2018 10:10:10 Diagnosis:NORMAL SINUS RHYTHM NORMAL ECG Confirmed by MEGHANA JOHNSON MD ([id number]) on 01/08/2018 10:10:08 AM Ventricular Rate : 63 BPM Atrial Rate : 63 BPM P-R Interval : 158 ms QRS Duration : 72 ms Q-T Interval : 428 ms QTC Calculation(Bezet) : 437 ms P [place] : 53 degrees R [place] : 51 degrees T [place] : 44 degrees Test Reason : Location : 136 : [facility] Overread By : MEGHANA JOHNSON MD Edited By : MEGHANA JOHNSON MD Referred By : Rosa M PANTOJA by : MANISH BIRCH Observed: 01/07/2018 Status: COMPLETED Source: [place] 9:00 AM [facility] REPOSITORY Nurse Visit (CAWSTR) JESSICA RODRIGUEZ ([id number]) 1955 F Date Time Provider Department 01/07/18 9:00 AM NURSE CARD ADMIN [facility] CAWSTR During your visit today, we recorded the following information about you: Emilie Peña MA 01/07/2018 9:04 AM Signed Placed EKG in box for review. Patient is being enrolled into a clinical study. 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) [C77.3] Order(s):ECG COMPLETE W INTERPRETATION [ECG01] Order #: [id number] Prescriptions as of 01/07/2018 Sig: FUROSEMIDE 20 MG TABLET Take 1 tablet by mouth once d* POTASSIUM CHLORIDE ER 20 MEQ * Take 1 tablet by mouth once d* DIPHENHYDRAMINE 25 MG-ACETAMI* Take 1 tablet by mouth at bed* ONDANSETRON HCL 8 MG TABLET Take 1 tablet by mouth every * LIDOCAINE-PRILOCAINE 2.5 %-2.* Apply 1 application to affect* MELATONIN 3 MG TABLET Take 6 mg by mouth daily at b* OTC NUTRITIONAL SUPPLEMENT day IBUPROFEN 200 MG TABLET Take 600 mg by mouth twice da* METFORMIN ER 500 MG TABLET,EX* Take 500 mg by mouth twice da* SUMATRIPTAN 100 MG TABLET Take 100 mg by mouth as neede* OMEPRAZOLE 40 MG CAPSULE,CARLYN* Take 40 mg by mouth once adia* MFRQVXAWCY-CLTKIHJ-MNGGEURI 5* Take 1 capsule by mouth once * TRAMADOL 50 MG TABLET Take 50 mg by mouth three lizeth* * FLUOXETINE 20 MG CAPSULE Take 20 mg by mouth once adia* * MULTIVITAMIN TABLET Take one(1) tablet daily. 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 Lymphedema [I89.0] INVALID FOR* Visit Notes: >> Emilie Peña MA SunJan 07, 2018 9:03 AM Status: Signed Placed EKG in box for review. Patient is being enrolled into a clinical study. Emilie Peña MA Encounter Status:Closed by EMILIE PEÑA MA on 01/07/18 HOSP Observed: 01/07/2018 Status: COMPLETED Source: [place] 12:00 AM [facility] REPOSITORY Patient Update (BRETT) JESSICA RODRIGUEZ ([id number]) 1955 F Date Time Provider Department 01/07/18 YAMILET WOLF (RN) BRETT During your visit today, we recorded the following information about you: Yamilet Wolf RN 01/17/2018 3:57 PM Addendum Late Note for 01/02/18: Patient in today to see and further discussion of treatment options including clinical trial ([place] [id number]/Kvng). Dr. Pantoja has discussed previously at prior appointment and patient is still very interested. Patient signed consent today. See consent tab (please note correct IRB # is [id number]). Patient aware that eligibility will be started and plan to randomize 2 weeks post-radiation on 01/16/18. Patient still needs baseline (screening labs) and EKG. Patient plans to come in on 01/07/18. All other assessments have been completed prior and are within timeframe. Sufficient tissue as required by study verified with pathology department at [facility]. Medical/Surgical History reviewed, including alcohol and tobacco intake. Nothing noted in history to deem patient ineligible. Med list reviewed. Patient is post-menopausal. ECOG 0 / 90% Baseline AE's today: Fatigue, grade 2 Itching/Erythema/Hyperpigmentation at radiation site, grade 1, last radiation was today. Will follow up prior to randomization. No other complaints. See Dr. Zepeda's note from 12/2017 for RR. Patient aware that I will be in contact with her next week with updates. Patient has my contact information if needed. Yamilet Wolf RN Allergies As of Date: 01/07/2018 Noted Allergy Reaction IV DYE (IODINATED CONTRAST- ORAL *05/21/2006 4 - Hives SHELLFISH 05/21/2006 4 - Hives VICTOZA (LIRAGLUTIDE) 03/30/2017 5 - Intolerance Date Reviewed: 01/02/2018 Reviewed by: Loli Addison - Fully Assessed Reason for Visit: Clinical Trial Note [Other] Cmt: Theodora 1117/ Kvng Reason For Visit History Recorded Prescriptions as of 01/07/2018 Sig: FUROSEMIDE 20 MG TABLET Take 1 tablet by mouth once d* POTASSIUM CHLORIDE ER 20 MEQ * Take 1 tablet by mouth once d* DIPHENHYDRAMINE 25 MG-ACETAMI* Take 1 tablet by mouth at bed* ONDANSETRON HCL 8 MG TABLET Take 1 tablet by mouth every * LIDOCAINE-PRILOCAINE 2.5 %-2.* Apply 1 application to affect* MELATONIN 3 MG TABLET Take 6 mg by mouth daily at b* OTC NUTRITIONAL SUPPLEMENT day IBUPROFEN 200 MG TABLET Take 600 mg by mouth twice da* METFORMIN ER 500 MG TABLET,EX* Take 500 mg by mouth twice da* SUMATRIPTAN 100 MG TABLET Take 100 mg by mouth as neede* OMEPRAZOLE 40 MG CAPSULE,CARLYN* Take 40 mg by mouth once adia* [id number] 5* Take 1 capsule by mouth once * TRAMADOL 50 MG TABLET Take 50 mg by mouth three lizeth* * FLUOXETINE 20 MG CAPSULE Take 20 mg by mouth once adia* * MULTIVITAMIN TABLET Take one(1) tablet daily. 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 Lymphedema [I89.0] INVALID FOR* Visit Notes: >> Yamilet Mckeon) Luciano SunJan 07, 2018 3:15 PM Status: Addendum Late Note for 01/02/18: Patient in today to see and further discussion of treatment options including clinical trial (Theodora 1117/Kvng). Dr. Pantoja has discussed previously at prior appointment and patient is still very interested. Patient signed consent today. See consent tab (please note correct IRB # is [id number]). Patient aware that eligibility will be started and plan to randomize 2 weeks post-radiation on 01/16/18. Patient still needs baseline (screening labs) and EKG. Patient plans to come in on 01/07/18. All other assessments have been completed prior and are within timeframe. Sufficient tissue as required by study verified with pathology department at [facility]. Medical/Surgical History reviewed, including alcohol and tobacco intake. Nothing noted in history to deem patient ineligible. Med list reviewed. Patient is post-menopausal. ECOG 0 / 90% Baseline AE's today: Fatigue, grade 2 Itching/Erythema/Hyperpigmentation at radiation site, grade 1, last radiation was today. Will follow up prior to randomization. No other complaints. See Dr. Zepeda's note from 12/2017 for RR. Patient aware that I will be in contact with her next week with updates. Patient has my contact information if needed. Yamilet Wolf RN Encounter Status:Closed by YAMILET WOLF on 01/07/18 HOSP Observed: 01/07/2018 Status: COMPLETED Source: [place] 12:00 AM [facility] REPOSITORY Patient Update (BRETT) JESSICA RODRIGUEZ ([id number]) 1955 F Date Time Provider Department 01/07/18 YAMILET WOLF) [place] During your visit today, we recorded the following information about you: Yamilet Wolf RN 01/11/2018 2:39 PM Addendum Clinical Trial Note for Theodora TellesKvng: Patient in to clinic today. Had EKG done. Will await results. Also to lab for screening labs/visit V0 central labs per kit. 1 2 ml lavender top (whole blood) with slides and 1 brown vial and 1 clear vial (both serum) sent ambient via UPS overnight service using air bill and kit provided. Yamilet Wolf RN Allergies As of Date: 01/07/2018 Noted Allergy Reaction IV DYE (IODINATED CONTRAST- ORAL *05/21/2006 4 - Hives SHELLFISH 05/21/2006 4 - Hives VICTOZA (LIRAGLUTIDE) 03/30/2017 5 - Intolerance Date Reviewed: 01/02/2018 Reviewed by: Loli Addison - Fully Assessed Reason for Visit: Clinical Trial Nurse Note [Other] Cmt: Theodora StrangeKvng Prescriptions as of 01/07/2018 Sig: FUROSEMIDE 20 MG TABLET Take 1 tablet by mouth once d* POTASSIUM CHLORIDE ER 20 MEQ * Take 1 tablet by mouth once d* DIPHENHYDRAMINE 25 MG-ACETAMI* Take 1 tablet by mouth at bed* ONDANSETRON HCL 8 MG TABLET Take 1 tablet by mouth every * LIDOCAINE-PRILOCAINE 2.5 %-2.* Apply 1 application to affect* MELATONIN 3 MG TABLET Take 6 mg by mouth daily at b* OTC NUTRITIONAL SUPPLEMENT day IBUPROFEN 200 MG TABLET Take 600 mg by mouth twice da* METFORMIN ER 500 MG TABLET,EX* Take 500 mg by mouth twice da* SUMATRIPTAN 100 MG TABLET Take 100 mg by mouth as neede* OMEPRAZOLE 40 MG CAPSULE,CARLYN* Take 40 mg by mouth once adia* [id number] 5* Take 1 capsule by mouth once * TRAMADOL 50 MG TABLET Take 50 mg by mouth three lizeth* * FLUOXETINE 20 MG CAPSULE Take 20 mg by mouth once adia* * MULTIVITAMIN TABLET Take one(1) tablet daily. 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 Lymphedema [I89.0] INVALID FOR* Visit Notes: >> Yamilet Mckeon) Luciano Mon Jan 07, 2018 3:30 PM Status: Addendum Clinical Trial Note for Theodora 1117/[facility]: Patient in to clinic today. Had EKG done. Will await results. Also to lab for screening labs/visit V0 central labs per kit. 1 2 ml lavender top (whole blood) with slides and 1 brown vial and 1 clear vial (both serum) sent ambient via UPS overnight service using air bill and kit provided. Yamilet Wolf RN Encounter Status:Closed by YAMILET WOLF on 01/07/18 CNOVSP Observed: 01/02/2018 Status: COMPLETED Source: [place] 10:50 AM [facility] REPOSITORY Visit (SP) Office (BRE[place]) JESSICA RODRIGUEZ ([id number]) 1955 F Date Time Provider Department 01/02/18 10:50 AM HARPREET PANTOJA During your visit today, we recorded the following information about you: Temperature Pulse Blood pressure Weight 98.9 degrees 70/minute 113/59 84.8 kg Harpreet Pantoja DO 01/02/2018 4:33 PM Signed Diagnosis: 1) Breast cancer. HPI: The patient is a 62-year-old female was a past medical history significant for diabetes and psoriatic arthritis. Patient had a screening mammogram performed on 03/22/2017 (only 3 months past annual date of previous study). There was a new mass identified in the left breast as being indeterminate. Further studies were recommended. Diagnostic imaging done on 03/28/2017 demonstrated a 3 cm irregular mass in left breast consistent with carcinoma and was highly suggestive of malignancy. Underwent core needle biopsy on 2017. Pathology: Left breast, ultrasound-guided needle core biopsy: Invasive ductal carcinoma, nuclear grade 3 (1 cm in greatest length). See comment. ER (clone 6F11) >95%, strong RI (clone 16/1E2) variable, 0-11%, weak Her-2Neu (clone CB11) 1+ Underwent left-sided mastectomy with left sentinel axillary lymph node biopsy along with prophylactic right-sided mastectomy on 04/20/2017. Pathology: FROZEN SECTION DIAGNOSIS A. Left axillary sentinel lymph nodes, biopsy: Three out of three lymph nodes positive for macrometastatic carcinoma. MICROSCOPIC DIAGNOSIS A. Left axillary sentinel lymph nodes, biopsy: Three out of three lymph nodes positive for macrometastatic carcinoma. See comment. B. Left breast, mastectomy: Invasive ductal carcinoma. C. Right breast: Focal intraductal hyperplasia without atypia. Negative for carcinoma in the sections examined. D. Extra skin and tissue left breast: Negative for carcinoma. INVASIVE BREAST CANCER SUMMARY: (Including specimen A AND B) Specimen ? total breast (including nipple and skin). Procedure ? total mastectomy (including nipple and skin). Lymph node sampling ? sentinel lymph nodes Specimen integrity ? single intact specimen. Specimen laterality - left Tumor size ? 3.5 x 3.3 x 3 cm Tumor focality ? single focus of invasive carcinoma Macroscopic and Microscopic extent of tumor: Skin ? invasive carcinoma does not invade into the dermis or epidermis. Nipple ? ductal carcinoma in situ does not nipple epidermis. Skeletal muscle ? no skeletal muscle present. Ductal carcinoma in situ (DCIS) ? no ductal carcinoma in situ is present. Lobular carcinoma in situ (LCIS) ? not identified Histologic type of invasive carcinoma ? invasive ductal carcinoma (no special type). Histologic Grade ([place] grade): Glandular/tubular differentiation - score 3 Nuclear pleomorphism - score 3 Mitotic count ? score 2 Overall grade - 3 (score of 8) Margins - Margins uninvolved by invasive carcinoma. The invasive carcinoma is 1.5 cm away from the closest posterior margin. Treatment effect: Response to presurgical (neoadjuvant) therapy - no known presurgical therapy. Lymph-Vascular invasion ? not identified Dermal lymph-vascular invasion - not identified Lymph nodes: Number of sentinel lymph nodes examined - 3 Total number of lymph nodes examined (sentinel and nonsentinel) - 3 Number of lymph nodes with macrometastases - 3 Number of lymph nodes with micrometastases and isolated tumor cells - 0 Size of largest metastatic deposit ? 3.6 cm Extranodal extension ? present, focal (0.4 cm in greatest dimension) Distance metastasis ? not applicable Additional pathologic findings ? fibrocystic changes and intraductal hyperplasia without atypia. Ancillary studies - previously performed on section of tumor ([id number] / [id number]). ER ? positive (>95%, strong) RI ? positive (variable, 0-11%, weak) Her2 bhavani ? negative (1+) Microcalcifications ? not identified Clinical history - Please make reference to previous specimen ([id number]) left breast, ultrasound-guided needle core biopsy with diagnosis of invasive ductal carcinoma. PATHOLOGIC STAGE: pT2 pN1a(sn) Mx The above summary is in compliance with [employer] [place] [employer] (CAP) Cancer Protocols Checklist and [place] Joint Committee on Cancer (AJCC), Staging Manual, 8th Ed. COMMENT A. The lymph nodes are almost completely involved by the metastatic tumor. The largest lymph node measures 3.6 cm in greatest dimension. The largest focus of metastasis measures 3.6 cm in greatest dimension. Focal extranodal distention is noted which measures 0.4 cm in greatest dimension. Underwent completion axillary dissection 05/27/2017. Pathology: MICROSCOPIC DIAGNOSIS A. Left axillary contents, regional lymphadenectomy: Isolated metastatic tumor cells in one of seven lymph nodes. B. ?Dog ear,? excision: Skin with attached fibrofatty tissue with reactive and reparative change and suture granulomas. No evidence of malignancy. COMMENT Case has been reviewed in consultation with Dr. Skinner who concurs with the above diagnosis. MICROSCOPIC DESCRIPTION Slides are reviewed. A. The largest lymph node contains benign histiocytic proliferation, fibrosis and minimal chronic inflammation consistent with previous biopsy and resection ([id number]). Immunohistochemistry ([id number]) supports the presence of isolated metastatic tumor cells in one out of seven lymph nodes. Previous therapy: 1) Adjuvant AC followed by Taxol. Presents for ongoing oncologic management. Interim history: She has no complaints today. She was seen last Sunday for an episode of cellulitis. It was across the upper abdomen and involved half the right mastectomy site. She took the antibiotics as directed and all the signs of the cellulitis have resolved. She feels well and she is not having any fever. No symptoms of cardiomyopathy including chest pain/pressure, palpitations, shortness of breath at rest or with exertion, lower extremity swelling/edema, PND or orthopnea. PMH, medications and allergies personally reviewed by me today. Any changes documented in appropriate section. ROS: Constitutional: Denies episodes of fever and night sweats. Neuro: Denies OWENS, vertigo, dizziness and imbalance. HEENT: No recent change in voice, vision or hearing. Resp: Denies cough, wheeze and hemoptysis. CVS: See above. : Denies dysuria or gross hematuria. No symptoms of bladder outlet obstruction. Endo: Denies hot flashes. Denies polyuria and polydipsia. Denies heat and cold intolerance. Musculoskeletal: Off Otezla. Heme: Denies unusual bleeding and unexplained bruising. Psych: Normal mood. PHYSICAL EXAM: Vitals: Blood pressure 113/59, pulse 70, temperature 37.2 ?C (98.9 ?F), temperature source Oral, weight 84.8 kg (187 lb), last menstrual period 02/04/2010. Well-appearing and in no acute distress. EYES: Sclerae are anicteric bilaterally. ENT: Oral mucosa is unremarkable. NECK: Supple. LYMPHATIC: There is no palpable cervical, supraclavicular, axillary adenopathy. RESPIRATORY: Inspiratory breath sounds are of normal intensity in all peters. No rales, wheezes or rhonchi. CARDIOVASCULAR: Rhythm is regular. Normal intensity S1/S2. There is no gallop or murmur. ABDOMEN: The abdomen is nondistended. No organomegaly. No tenderness. Extremities: No swelling or edema now. SKIN: No jaundice. NEUROLOGIC: sheeter operator II-XII are grossly intact. No focal motor weakness. MUSCULOSKELETAL: No muscle wasting. 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 -pT2 (3.5 cm; grade 3; no LVI) pN1a (3 of 3 SLNs) MX ER/RI positive, HER2 negative invasive ductal carcinoma the left breast. -Staging form in problem list previously completed. -She tolerated adjuvant chemotherapy very well. -Again addressed the role of aromatase inhibitor therapy. -We again discussed the [facility] trial including rationale and trial logistics. Plan: -Labs and EKG next week. -IC signed today. -Will need SCP following radiation therapy. (E04.9) Goiter, nodular Assessment: -Was stable on follow up. Plan: -Repeat ultrasound in about a year. Harpreet Pantoja DO Referring Provider: RIA DEE [[id number]] Allergies As of Date: 01/02/2018 Noted Allergy Reaction IV DYE (IODINATED CONTRAST- ORAL *05/21/2006 4 - Hives SHELLFISH 05/21/2006 4 - Hives VICTOZA (LIRAGLUTIDE) 03/30/2017 5 - Intolerance Date Reviewed: 01/02/2018 Reviewed by: Loli Addison - Fully Assessed Reason for Visit: Established Patient [175] Primary Visit Diagnosis:Malignant neoplasm of upper-outer quadrant of left breast in female, estrogen receptor positive (HCC) [C50.412, Z17.0] Other Visit Diagnosis:Metastatic cancer to axillary lymph nodes (HCC) [C77.3] Order(s):ECG COMPLETE W INTERPRETATION [ECG01] Order #: [id number] FUTURE Follow-up and Disposition History Recorded Prescriptions as of 01/02/2018 Sig: FUROSEMIDE 20 MG TABLET Take 1 tablet by mouth once d* POTASSIUM CHLORIDE ER 20 MEQ * Take 1 tablet by mouth once d* DIPHENHYDRAMINE 25 MG-ACETAMI* Take 1 tablet by mouth at bed* ONDANSETRON HCL 8 MG TABLET Take 1 tablet by mouth every * MELATONIN 3 MG TABLET Take 6 mg by mouth daily at b* OTC NUTRITIONAL SUPPLEMENT day IBUPROFEN 200 MG TABLET Take 600 mg by mouth twice da* METFORMIN ER 500 MG TABLET,EX* Take 500 mg by mouth twice da* SUMATRIPTAN 100 MG TABLET Take 100 mg by mouth as neede* OMEPRAZOLE 40 MG CAPSULE,CARLYN* Take 40 mg by mouth once adia* [id number] 5* Take 1 capsule by mouth once * TRAMADOL 50 MG TABLET Take 50 mg by mouth three lizeth* * FLUOXETINE 20 MG CAPSULE Take 20 mg by mouth once adia* * CALCIUM + D 600 MG (1,500 MG)* Take one(1) tablet twice adia* * TYLENOL EXTRA STRENGTH 500 MG* Take two(2) tablets every six* LIDOCAINE-PRILOCAINE 2.5 %-2.* Apply 1 application to affect* * MULTIVITAMIN TABLET Take one(1) tablet daily. Medication notes this encounter FUROSEMIDE 20 MG TABLET >> Loli Addison MA 01/02/2018 10:07 AM >> NICOLÁS LOLI LARSON SunJan 02, 2018 10:07 AM as necessary POTASSIUM CHLORIDE ER 20 MEQ TABLET,EXTENDED RELEASE(PART/CRYST) >> Loli Addison MA 01/02/2018 10:07 AM >> RAMONRAMY LOLI LAROSN SunJan 02, 2018 10:07 AM as necessary LIDOCAINE-PRILOCAINE 2.5 %-2.5 % TOPICAL CREAM >> Loli Addison MA 01/02/2018 10:07 AM >> NICOLÁS LOLI LARSON SunJan 02, 2018 10:07 AM No longer using, port removed. MULTIVITAMIN TABLET >> Loli Addison MA 01/02/2018 10:08 AM >> NICOLÁS LOLI LARSON SunJan 02, 2018 10:08 AM ON HOLD Problem List As Of Date 01/02/2018 Noted Resolved Postmenopausal bleeding [N95.0] INVALID FOR* Ovarian cyst [N83.209] INVALID FOR* Malignant neoplasm of upper-outer quadrant of l*INVALID FOR* 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 Lymphedema [I89.0] INVALID FOR* Encounter Status:Closed by HARPREET PANTOJA DO on 01/02/18 PROGRESS Observed: 01/02/2018 Status: COMPLETED Source: [place] 10:19 AM [facility] REPOSITORY O ID: [id number] Author: Harpreet Pantoja Service: (none) Author Type: Physician Type: Progress Notes Filed: 01/02/2018 4:33 PM Note Text: Diagnosis: 1) Breast cancer. HPI: The patient is a 62-year-old female was a past medical history significant for diabetes and psoriatic arthritis. Patient had a screening mammogram performed on 03/22/2017 (only 3 months past annual date of previous study). There was a new mass identified in the left breast as being indeterminate. Further studies were recommended. Diagnostic imaging done on 03/28/2017 demonstrated a 3 cm irregular mass in left breast consistent with carcinoma and was highly suggestive of malignancy. Underwent core needle biopsy on 2017. Pathology: Left breast, ultrasound-guided needle core biopsy: Invasive ductal carcinoma, nuclear grade 3 (1 cm in greatest length). See comment. ER (clone 6F11) >95%, strong RI (clone 16/1E2) variable, 0-11%, weak Her-2Neu (clone CB11) 1+ Underwent left-sided mastectomy with left sentinel axillary lymph node biopsy along with prophylactic right-sided mastectomy on 04/20/2017. Pathology: FROZEN SECTION DIAGNOSIS A. Left axillary sentinel lymph nodes, biopsy: Three out of three lymph nodes positive for macrometastatic carcinoma. MICROSCOPIC DIAGNOSIS A. Left axillary sentinel lymph nodes, biopsy: Three out of three lymph nodes positive for macrometastatic carcinoma. See comment. B. Left breast, mastectomy: Invasive ductal carcinoma. C. Right breast: Focal intraductal hyperplasia without atypia. Negative for carcinoma in the sections examined. D. Extra skin and tissue left breast: Negative for carcinoma. INVASIVE BREAST CANCER SUMMARY: (Including specimen A AND B) Specimen ? total breast (including nipple and skin). Procedure ? total mastectomy (including nipple and skin). Lymph node sampling ? sentinel lymph nodes Specimen integrity ? single intact specimen. Specimen laterality - left Tumor size ? 3.5 x 3.3 x 3 cm Tumor focality ? single focus of invasive carcinoma Macroscopic and Microscopic extent of tumor: Skin ? invasive carcinoma does not invade into the dermis or epidermis. Nipple ? ductal carcinoma in situ does not nipple epidermis. Skeletal muscle ? no skeletal muscle present. Ductal carcinoma in situ (DCIS) ? no ductal carcinoma in situ is present. Lobular carcinoma in situ (LCIS) ? not identified Histologic type of invasive carcinoma ? invasive ductal carcinoma (no special type). Histologic Grade ([place] grade): Glandular/tubular differentiation - score 3 Nuclear pleomorphism - score 3 Mitotic count ? score 2 Overall grade - 3 (score of 8) Margins - Margins uninvolved by invasive carcinoma. The invasive carcinoma is 1.5 cm away from the closest posterior margin. Treatment effect: Response to presurgical (neoadjuvant) therapy - no known presurgical therapy. Lymph-Vascular invasion ? not identified Dermal lymph-vascular invasion - not identified Lymph nodes: Number of sentinel lymph nodes examined - 3 Total number of lymph nodes examined (sentinel and nonsentinel) - 3 Number of lymph nodes with macrometastases - 3 Number of lymph nodes with micrometastases and isolated tumor cells - 0 Size of largest metastatic deposit ? 3.6 cm Extranodal extension ? present, focal (0.4 cm in greatest dimension) Distance metastasis ? not applicable Additional pathologic findings ? fibrocystic changes and intraductal hyperplasia without atypia. Ancillary studies - previously performed on section of tumor ([id number] / [id number]). ER ? positive (>95%, strong) RI ? positive (variable, 0-11%, weak) Her2 bhavani ? negative (1+) Microcalcifications ? not identified Clinical history - Please make reference to previous specimen ([id number]) left breast, ultrasound-guided needle core biopsy with diagnosis of invasive ductal carcinoma. PATHOLOGIC STAGE: pT2 pN1a(sn) Mx The above summary is in compliance with [employer] [place] [employer] (CAP) Cancer Protocols Checklist and [place] [employer] Committee on Cancer (AJCC), Staging Manual, 8th Ed. COMMENT A. The lymph nodes are almost completely involved by the metastatic tumor. The largest lymph node measures 3.6 cm in greatest dimension. The largest focus of metastasis measures 3.6 cm in greatest dimension. Focal extranodal distention is noted which measures 0.4 cm in greatest dimension. Underwent completion axillary dissection 05/27/2017. Pathology: MICROSCOPIC DIAGNOSIS A. Left axillary contents, regional lymphadenectomy: Isolated metastatic tumor cells in one of seven lymph nodes. B. ?Dog ear,? excision: Skin with attached fibrofatty tissue with reactive and reparative change and suture granulomas. No evidence of malignancy. COMMENT Case has been reviewed in consultation with Dr. Skinner who concurs with the above diagnosis. MICROSCOPIC DESCRIPTION Slides are reviewed. A. The largest lymph node contains benign histiocytic proliferation, fibrosis and minimal chronic inflammation consistent with previous biopsy and resection ([id number]). Immunohistochemistry ([id number]) supports the presence of isolated metastatic tumor cells in one out of seven lymph nodes. Previous therapy: 1) Adjuvant AC followed by Taxol. Presents for ongoing oncologic management. Interim history: She has no complaints today. She was seen last Radu for an episode of cellulitis. It was across the upper abdomen and involved half the right mastectomy site. She took the antibiotics as directed and all the signs of the cellulitis have resolved. She feels well and she is not having any fever. No symptoms of cardiomyopathy including chest pain/pressure, palpitations, shortness of breath at rest or with exertion, lower extremity swelling/edema, PND or orthopnea. PMH, medications and allergies personally reviewed by me today. Any changes documented in appropriate section. ROS: Constitutional: Denies episodes of fever and night sweats. Neuro: Denies OWENS, vertigo, dizziness and imbalance. HEENT: No recent change in voice, vision or hearing. Resp: Denies cough, wheeze and hemoptysis. CVS: See above. : Denies dysuria or gross hematuria. No symptoms of bladder outlet obstruction. Endo: Denies hot flashes. Denies polyuria and polydipsia. Denies heat and cold intolerance. Musculoskeletal: Off Otezla. Heme: Denies unusual bleeding and unexplained bruising. Psych: Normal mood. PHYSICAL EXAM: Vitals: Blood pressure 113/59, pulse 70, temperature 37.2 ?C (98.9 ?F), temperature source Oral, weight 84.8 kg (187 lb), last menstrual period 02/04/2010. Well-appearing and in no acute distress. EYES: Sclerae are anicteric bilaterally. ENT: Oral mucosa is unremarkable. NECK: Supple. LYMPHATIC: There is no palpable cervical, supraclavicular, axillary adenopathy. RESPIRATORY: Inspiratory breath sounds are of normal intensity in all peters. No rales, wheezes or rhonchi. CARDIOVASCULAR: Rhythm is regular. Normal intensity S1/S2. There is no gallop or murmur. ABDOMEN: The abdomen is nondistended. No organomegaly. No tenderness. Extremities: No swelling or edema now. SKIN: No jaundice. NEUROLOGIC: sheeter operator II-XII are grossly intact. No focal motor weakness. MUSCULOSKELETAL: No muscle wasting. 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 -pT2 (3.5 cm; grade 3; no LVI) pN1a (3 of 3 SLNs) MX ER/RI positive, HER2 negative invasive ductal carcinoma the left breast. -Staging form in problem list previously completed. -She tolerated adjuvant chemotherapy very well. -Again addressed the role of aromatase inhibitor therapy. -We again discussed the [facility] trial including rationale and trial logistics. Plan: -Labs and EKG next week. -IC signed today. -Will need SCP following radiation therapy. (E04.9) Goiter, nodular Assessment: -Was stable on follow up. Plan: -Repeat ultrasound in about a year. Harpreet Pantoja DO [facility] Observed: 01/02/2018 Status: COMPLETED Source: [place] 12:00 AM [facility] REPOSITORY Education (RADTWS) JESSICA RODRIGUEZ ([id number]) 1955 F Date Time Provider Department 01/02/18 BONITA ZEPEDA Reason for Visit: discharge instructions [Other] Cmt: completed radiation Visit Notes: >> Julianne Mckeon) MONET Hernandez SunJan 02, 2018 11:02 AM Status: Signed AMBULATORY PATIENT EDUCATION NOTE TOPIC: SURVIVAL SKILLS: Symptom Management READINESS TO LEARN COGNITIVE ABILITY: Alert and oriented MOTIVATION TO LEARN: Eager Interested FAMILY SUPPORT: High - Very involved in pt care INSTRUCTION PROVIDED TO: Patient and family member PATIENT LEARNS BEST BY: Multiple Methods FACTORS AFFECTING LEARNING: None PHYSICAL LIMITATIONS AFFECTING LEARNING: None LEARNING RESPONSE DIAGNOSIS: C50.412 METHOD OF INSTRUCTION: Teach Back skin care Individual instruction Written instruction - handouts Verbal instruction PATIENT / FAMILY RESPONSE: Verbalizes understanding of: SYMPTOM MANAGEMENT-Correct actions to take to manage symptoms associated with his/her disease/illness FOLLOW-UP PLAN: Patient instructed to call with any further issues Reinforce - Repeat previous content Contact information given. SUPPLEMENTAL MATERIAL: D/C sheet REFERRAL (RECOMMENDATION): None Written discharge instructions given and reviewed with patient. Patient verbalizes understanding. Encouraged to call with any questions or concerns. Instruction for 4 week follow up appointment given by Dr. Zepeda. Electronically Signed By: Julianne Hernandez RN In Department: RADIATION ONCOLOGY During your visit today, we recorded the following information about you: Allergies As of Date: 01/02/2018 Noted Allergy Reaction IV DYE (IODINATED CONTRAST- ORAL *05/21/2006 4 - Hives SHELLFISH 05/21/2006 4 - Hives VICTOZA (LIRAGLUTIDE) 03/30/2017 5 - Intolerance Date Reviewed: 01/02/2018 Reviewed by: Loli Addison - Fully Assessed Prescriptions as of 01/02/2018 Sig: FUROSEMIDE 20 MG TABLET Take 1 tablet by mouth once d* POTASSIUM CHLORIDE ER 20 MEQ * Take 1 tablet by mouth once d* DIPHENHYDRAMINE 25 MG-ACETAMI* Take 1 tablet by mouth at bed* ONDANSETRON HCL 8 MG TABLET Take 1 tablet by mouth every * LIDOCAINE-PRILOCAINE 2.5 %-2.* Apply 1 application to affect* MELATONIN 3 MG TABLET Take 6 mg by mouth daily at b* OTC NUTRITIONAL SUPPLEMENT calm day IBUPROFEN 200 MG TABLET Take 600 mg by mouth twice da* METFORMIN ER 500 MG TABLET,EX* Take 500 mg by mouth twice da* SUMATRIPTAN 100 MG TABLET Take 100 mg by mouth as neede* OMEPRAZOLE 40 MG CAPSULE,CARLYN* Take 40 mg by mouth once adia* [id number] 5* Take 1 capsule by mouth once * TRAMADOL 50 MG TABLET Take 50 mg by mouth three lizeth* * FLUOXETINE 20 MG CAPSULE Take 20 mg by mouth once adia* * MULTIVITAMIN TABLET Take one(1) tablet daily. * CALCIUM + D 600 MG (1,500 MG)* Take one(1) tablet twice adia* * TYLENOL EXTRA STRENGTH 500 MG* Take two(2) tablets every six* Encounter Status:Closed by JULIANNE HERNANDEZ on 01/02/18 PROGRESS Observed: 01/02/2018 Status: COMPLETED Source: [place] 12:00 AM [facility] REPOSITORY HNO ID: [id number] Author: Bonita Zepeda Service: (none) Author Type: Physician Type: Progress Notes Filed: 01/03/2018 12:34 AM Note Text: JESSICA RODRIGUEZ [id number] : 1955 01/02/2018 [facility] Department of Radiation Oncology RADIATION ONCOLOGY - COMPLETION NOTE DATE OF SIMULATION: 11/19/17 DATES OF TREATMENT: 11/22/17 to 01/02/18 UNIT: [facility] AREA TREATED: Left chest wall/SC/axilla DISEASE: Stage III, T2N2, invasive ductal carcinoma of the left breast s/p left mastectomy and sentinel node biopsy and axillary node dissection. It's ER positive (>95%, strong), RI positive (variable, weak, 0-11%), and Her2/bhavani 1+. s/p adjuvant chemotherapy. DELIVERED DOSE: 6000 cGy in 30 fractions. (5000 cGy in 25 fractions to the left chest wall/SC/axilla to the 100% isodose line with 10 AND 15MV and 10 peters followed by 1000 cGy in 5 fractions boost to the mastectomy scar to the 100% isodose line with 6 MeV electron and 1 field.) ELAPSED TIME: 41 days. TOLERANCE/ RESPONSE: Brisk erythema of the left chest wall. Of note, she had cellulitis over the chest wall and abdomen and treated with antibiotics. REMARKS: She tolerated radiation treatment well. I will see her in four weeks for a routine follow-up. Electronically Signed BONITA ZEPEDA M.D. / 01/02/20183:58 PM cc: Ruth Clark DO ([facility]) [id number] [facility] [address] [place] [address] Harpreet Pantoja DO [address] [facility] [id number] Hodan Chong MD [address] [facility] [id number] CNOV Observed: 01/01/2018 Status: COMPLETED Source: [place] 10:15 AM [facility] REPOSITORY Office Visit (RADTWS) JESSICA RODRIGUEZ ([id number]) 1955 F Date Time Provider Department 01/01/18 10:15 AM BONITA ZEPEDA During your visit today, we recorded the following information about you: Temperature Pulse Respiration Blood pressure 97.7 degrees 61/minute 20/minute 140/63 Nikky Briones, RN, RN 01/01/2018 10:00 AM Signed Radiation Therapy - Nursing Note (OTV) PATIENT NAME: Jessica Castillo Ermajaz PATIENT January 01, 2018 [facility] FACILITY/LOCATION: [place] NURSING NOTE TYPE: BREAST Subjective Data No c/o Additional Data Do you want to see a Cable Driller? No Status: Post-menopausal. Stress Scale: On a scale of 0 to 10, what number best describes how much distress you have experienced in the past week?(0 being no distress and 10 being extreme distress) 0 Social work notified: no Nursing Assessment Fatigue: moderate; causing difficulty performing some activities Appetite: good Nutritional Intake: Regular oral intake. Weight Gain/Loss: No Ambulatory weight history: Last 6 Encounter Wt Readings: Date: Wt: 12/25/2017 83.5 kg (184 lb) 12/24/2017 83.9 kg (185 lb) 12/21/2017 84.6 kg (186 lb 8 oz) 11/28/2017 84.8 kg (187 lb) 10/30/2017 85 kg (187 lb 8 oz) 10/24/2017 87.8 kg (193 lb 8 oz) Nausea:None Vomiting: None Bowel Function: normal bowel movements Erythema/Hyperpigmentation:moderate Desquamation:dry desquamation Rash:none Skin Care: Aquaphor Skin Sensation: moderate itching and moderate burning Focused Assessment BREAST: Lymphedema Assessment: Is the patient noting any swelling? No. SIGNED by: MONET Clemens MD 01/01/2018 10:04 AM Signed Radiation Oncology - On Treatment Review (OTR) Note PATIENT NAME: Jessica Rodriguez PATIENT DIAGNOSIS: Stage III, T2N2, invasive ductal carcinoma of the left breast s/p left mastectomy and sentinel node biopsy and axillary node dissection. It's ER positive (>95%, strong), RI positive (variable, weak, 0-11%), and Her2/bhavani 1+. s/p adjuvant chemotherapy. COURSE: adjuvant AREA TREATED: Left breast/SC/axilla CURRENT DOSE: 5800 cGy in 29 fx PLANNED DOSE: 6000 cGy in 30 fx SUBJECTIVE: She has cellulitis and she is on antibiotics with some improvement. EXAM: KPS: 90 BP 140/63 Pulse 61 Temp 36.5 ?C (97.7 ?F) (Oral) Resp 20 LMP 02/04/2010 SpO2 97% General Appearance: Alert and oriented. No acute distress. Brisk erythema of the left chest wall. Cellulitis in the upper abdomen and right chest wall almost all resolved. IMAGING/LAB RESULTS: None. Treatment chart checked: Yes Patient treatment site reviewed and verified:Yes Port films reviewed and current:Yes Medications started: None. ASSESSMENT/PLAN: Clinically stable. Toxicity within expected parameters. Continue radiation treatment as planned. Bonita Zepeda MD Allergies As of Date: 01/01/2018 Noted Allergy Reaction IV DYE (IODINATED CONTRAST- ORAL *05/21/2006 4 - Hives SHELLFISH 05/21/2006 4 - Hives VICTOZA (LIRAGLUTIDE) 03/30/2017 5 - Intolerance Date Reviewed: 01/01/2018 Reviewed by: Nikky (Rn) MONET Briones - Fully Assessed Reason for Visit: Radiotherapy On-treatment Visit [1722] Primary Visit Diagnosis:Malignant neoplasm of upper-outer quadrant of left breast in female, estrogen receptor positive (HCC) [C50.412, Z17.0] Prescriptions as of 01/01/2018 Sig: FUROSEMIDE 20 MG TABLET Take 1 tablet by mouth once d* POTASSIUM CHLORIDE ER 20 MEQ * Take 1 tablet by mouth once d* DIPHENHYDRAMINE 25 MG-ACETAMI* Take 1 tablet by mouth at bed* ONDANSETRON HCL 8 MG TABLET Take 1 tablet by mouth every * LIDOCAINE-PRILOCAINE 2.5 %-2.* Apply 1 application to affect* MELATONIN 3 MG TABLET Take 6 mg by mouth daily at b* OTC NUTRITIONAL SUPPLEMENT day IBUPROFEN 200 MG TABLET Take 600 mg by mouth twice da* METFORMIN ER 500 MG TABLET,EX* Take 500 mg by mouth twice da* SUMATRIPTAN 100 MG TABLET Take 100 mg by mouth as neede* OMEPRAZOLE 40 MG CAPSULE,CARLYN* Take 40 mg by mouth once adia* [id number] 5* Take 1 capsule by mouth once * TRAMADOL 50 MG TABLET Take 50 mg by mouth three lizeth* * FLUOXETINE 20 MG CAPSULE Take 20 mg by mouth once adia* * MULTIVITAMIN TABLET Take one(1) tablet daily. 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 Lymphedema [I89.0] INVALID FOR* Visit Notes: >> Nikky (Monet) MONET Briones Jan 01, 2018 9:59 AM Status: Signed Radiation Therapy - Nursing Note (OTV) PATIENT NAME: Jessica Rodriguez PATIENT January 01, 2018 [facility] FACILITY/LOCATION: [facility] NOTE TYPE: BREAST Subjective Data No c/o Additional Data Do you want to see a Cable Driller? No Status: Post-menopausal. Stress Scale: On a scale of 0 to 10, what number best describes how much distress you have experienced in the past week?(0 being no distress and 10 being extreme distress) 0 Social work notified: no Nursing Assessment Fatigue: moderate; causing difficulty performing some activities Appetite: good Nutritional Intake: Regular oral intake. Weight Gain/Loss: No Ambulatory weight history: Last 6 Encounter Wt Readings: Date: Wt: 12/25/2017 83.5 kg (184 lb) 12/24/2017 83.9 kg (185 lb) 12/21/2017 84.6 kg (186 lb 8 oz) 11/28/2017 84.8 kg (187 lb) 10/30/2017 85 kg (187 lb 8 oz) 10/24/2017 87.8 kg (193 lb 8 oz) Nausea:None Vomiting: None Bowel Function: normal bowel movements Erythema/Hyperpigmentation:moderate Desquamation:dry desquamation Rash:none Skin Care: Aquaphor Skin Sensation: moderate itching and moderate burning Focused Assessment BREAST: Lymphedema Assessment: Is the patient noting any swelling? No. SIGNED by: Nikky Briones RN Encounter Status:Closed by BONITA ZEPEDA MD on 01/01/18 PROGRESS Observed: 01/01/2018 Status: COMPLETED Source: [place] 9:59 AM [facility] REPOSITORY HNO ID: [id number] Author: Bonita Zepeda Service: (none) Author Type: Physician Type: Progress Notes Filed: 01/01/2018 10:04 AM Note Text: Radiation Oncology - On Treatment Review (OTR) Note PATIENT NAME: Jessica Rodriguez PATIENT DIAGNOSIS: Stage III, T2N2, invasive ductal carcinoma of the left breast s/p left mastectomy and sentinel node biopsy and axillary node dissection. It's ER positive (>95%, strong), RI positive (variable, weak, 0-11%), and Her2/bhavani 1+. s/p adjuvant chemotherapy. COURSE: adjuvant AREA TREATED: Left breast/SC/axilla CURRENT DOSE: 5800 cGy in 29 fx PLANNED DOSE: 6000 cGy in 30 fx SUBJECTIVE: She has cellulitis and she is on antibiotics with some improvement. EXAM: KPS: 90 BP 140/63 Pulse 61 Temp 36.5 ?C (97.7 ?F) (Oral) Resp 20 LMP 02/04/2010 SpO2 97% General Appearance: Alert and oriented. No acute distress. Brisk erythema of the left chest wall. Cellulitis in the upper abdomen and right chest wall almost all resolved. IMAGING/LAB RESULTS: None. Treatment chart checked: Yes Patient treatment site reviewed and verified:Yes Port films reviewed and current:Yes Medications started: None. ASSESSMENT/PLAN: Clinically stable. Toxicity within expected parameters. Continue radiation treatment as planned. Bonita Zepeda MD PROGRESS Observed: 12/26/2017 Status: COMPLETED Source: [place] 10:26 AM [facility] REPOSITORY [facility] ID: [id number] Author: Emilie (Pt) Dank Service: (none) Author Type: Physical Therapist Type: Progress Notes Filed: 12/26/2017 2:32 PM Note Text: Episode Visit Count: 1 Therapist That Will Oversee The Plan Of Care: Emilie Weems Start of Care Date: 12/26/17 Onset Date: 07/13/17 Patient Identified by Name and Date of : Yes RE[facility]ABILITATION AND SPORTS THERAPY PHYSICAL THERAPY EVALUATION PLAN OF CARE: Assessment: Jessica Rodriguez presents with the chief complaint of intermittent L UE edema following surgery and radiation treatments for Breast CA. She presents with impairments of history of cellulitis and increased risk of lymphedema and secondary skin/tissue changes. She may benefit from skilled therapy services to prevent increased volume of L UE/thoracic area, further episodes of cellulitis and secondary tissue sequela. Prognosis: Excellent Excellent due to: current objective clinical presentation;within-session changes at evaluation;good support system/ coping skills Goals for Episode of Care: created on 12/26/17 through 12/26/17 Patient / family knowledgeable re: all pertinent aspects of CDT Patient / family independent with home exercise program Planned Interventions, Frequency, and Duration: Current Frequency: 1 visit Duration: 1 visit Total Number of Visits Planned: 1 Planned Treatment Interventions: Therapeutic exercise;Manual therapy;Self-skilled nursing management;Patient/Family/Caregiver Education PLAN FOR NEXT VISIT: Pt will continue independently with instructed HEP including Decongestive Exercises and Self-Manual Lymphatic Drainage techniques. She will obtain a class I compression sleeve for L UE (wrist to axilla) for use in self-managment of her lymphedema. Patient demonstrates good understanding of plan of care and treatment. The above goals and plan of care were discussed and agreed upon by patient/family. SUBJECTIVE: Jessica Rodriguez is a 62 year old female seen today for Pt underwent B mastectomy in April of this year. She notes onset of mild swelling in L forearm in July of this year when outside painting with her . Pt notes swelling is intermittent and occurs with increased use of L UE. SHe describes performing a retrograde massage to her forearm and this has seemed to keep it down and under control. She is currently completeing radiation treatments that began in November. She notes and demonstrates full shoulder AROM B. She states she just wants to make sure she is doing the right things to prevent worsening of the lymphedema. She had a recent episode of cellulitis over raquel abdominal region and is completing a course of antibiotics. 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 Patient Goals: To make sure I am doing everything correctly for the lymphedema. Functional Limitations: (arm hurts if lifts anything heavy (>10#), increased use L UE) Prior Level of Function: Independent without limitations Intake Information: Prescription present Previous Treatment: Self prescribed exercises (Pt demonstrates retrograde massage/milking of L forearm.) Pain Score: 0/10 (up to 3-4/10 when it hurts) Pain Location: Upper Arm - Left;Elbow - Left;Forearm - Left Frequency: Intermittent Post Treatment Pain Score: 0/10 OBJECTIVE MEASURES WITH LEVEL OF FUNCTION: Lymphedema Presents with: Swelling;Pain;Decreased knowledge of lymphedema management Lymphedema is worse: (Increased use of L UE.) Lymphedema is better: (After massage.) Lymphedema Contributing Factors: Chemotherapy;Radiation;Lymph Node Removal;History of Cellulitis Skin: Skin Comments Skin Comments:: Radiation induced redness aterior chest wall. No cording, fibrosis or pitting appreciable today. Upper Extremity Circumferential Measurements R Thumb (proximal phalanx) (cm): 6 cm R Index Finger (proximal phalanx) (cm): 5 cm R Middle Finger (proximal phalanx) (cm): 6 cm R Ring Finger (proximal phalanx) (cm): 6 cm R Small Finger (proximal phalanx) (cm): 6 cm R DPC (cm): 18.5 cm R Distal Wrist Crease (DWC) (cm): 16 cm R 4 cm above wrist (cm): 17.5 cm R 8 cm above wrist (cm): 20.5 cm R 12 cm above wrist (cm): 23.5 cm R 16 cm above wrist (cm): 24.5 cm R 20 cm above wrist (cm): 25 cm (elbow) R 24 cm above wrist (cm): 26 cm R 28 cm above wrist (cm): 29.5 cm R 32 cm above wrist (cm): 33.5 cm R 36 cm above wrist (cm): 37.5 cm L Thumb (proximal phalanx) (cm): 6 cm L Index Finger (proximal phalanx) (cm): 6 cm L Middle Finger (proximal phalanx) (cm): 5.5 cm L Ring Finger (proximal phalanx) (cm): 4.5 cm L Small Finger (proximal phalanx) (cm): 4.5 cm L DPC (cm): 18.5 cm L Distal Wrist Crease (DWC) (cm): 16 cm L 4 cm above wrist (cm): 17 cm L 8 cm above wrist (cm): 19.5 cm L 12 cm above wrist (cm): 23 cm L 16 cm above wrist (cm): 24.5 cm L 20 cm above wrist (cm): 25 cm (elbow) L 24 cm above wrist (cm): 26 cm L 28 cm above wrist (cm): 30 cm L 32 cm above wrist (cm): 32.5 cm L 36 cm above wrist (cm): 38 cm UE PROM R UE PROM: full shoulder AROM L UE PROM: full shoulder AROM Education: Education Learning Preferences: Demonstration;Explanation Barriers: None Learning/educational needs: Home exercise program;Plan of Care;Lymphedema Program Education Provided: Yes, see treatment interventions for education provided Education Provided To: Patient Education Mode/Type: Demonstration;Explanation/Discussion;Literature/Printed Materials;Performance Response to Education/Teach Back: States/Identifies;Return Demonstration TREATMENT: Evaluation Therapeutic Exercise: 1: Pt was instructed in Upper Extremity Decongestive Exercises and performed each one with correct return demonstration. Skilled Intervention: Patient was educated in proper exercise technique and purpose for exercises. Skilled judgment was provided in selection of appropriate interventions. Provided written instruction for home exercise program to facilitate proper performance and compliance. Correct performance of therapeutic exercises was facilitated with verbal and visual cuing. Patient education as noted. Manual Therapy: 1: Pt was instructed in self-MLD techniques including stationary circles and pump strokes with correct hand placement and sequencing for L breast sequence. She performed return demonstration and all questions were answered to her satisfaction. Skilled Intervention: Manual skills to improve joint mobility, ROM, and decrease pain. Utilized anatomy knowledge of the therapist, and assessment of patient's response to intervention. Self-Custodial Management: 1: Educated pt in recommendation to obtain a class I compression sleeve for L UE (wrist to axilla) for use in self-management of her lymphedema. Educated pt in lymphedema treatment (CDT) including skin care/infection prevention, precautions, decongestive exercises, self-MLD techniques and compression garments. Skilled Intervention: Skilled judgment in the selection of proper modification for activity of daily living/home management based on clinical presentation, deficits, and needs. Educated the patient regarding recommendations and provided written instruction to facilitate compliance. Reviewed patient specific diagnosis in relation to activities of daily living/home management. Billing: [facility]: Evaluation - Low Complexity ([id number]) Therapeutic Exercise (99585): 1:1 time: 15 minutes (1 unit: 8-22 mins) Manual Therapy (45905): 1:1 time: 7 minutes (no charge) Educ Home Mgmt (78290): 1:1 time: 15 minutes (1 unit: 8-22 mins) Total time: 50 minutes Emilie Weems PT PROGRESS Observed: 12/26/2017 Status: COMPLETED Source: [place] 10:21 AM [facility] REPOSITORY HNO ID: [id number] Author: Fauzia Lucio (Sw) Service: (none) Author Type: Architectural Intern Type: Progress Notes Filed: 12/26/2017 10:23 AM Note Text: Social Work Problem Referral Note INFORMATION/REFERRAL : Jessica Rodriguez 62 year old female was referred by [facility] Social Work for the following reason(s): disability planning PERSONS INTERVIEWED: patient INTERVENTION: Information AND Referral Service Co-ordination Affect/Mood: The patient is noted as appropriate IDENTIFIED PROBLEMS/NEEDS: Disability Intervention/Referral to be provided:Arrangements made for continuity of care IMPRESSION/PLAN: Patient met with NIRANJAN on this day to discuss documentation that needs to be sent to her disability provider. NIRANJAN printed off all office visit notes from 11/12/17 to present and faxed to [email or web address] [facility] at per patient request. Patient denies other needs. F/U APPOINTMENT: MONA Huston CNTHERAPY Observed: 12/26/2017 Status: COMPLETED Source: [place] 10:15 AM [facility] REPOSITORY OT/PT/Speech Visit (PTWS) JESSICA RODRIGUEZ ([id number]) 1955 F Date Time Provider Department 12/26/17 10:15 AM EMILIE WEEMS (PT) PTWS Date Time Provider Department Center 12/26/2017 10:15 AM [id number] WEEMS (PT) PTWS [facility] Reason for Visit: PT Eval [747] Primary Visit Diagnosis:Malignant neoplasm of upper-outer quadrant of left breast in female, estrogen receptor positive (HCC) [C50.412, Z17.0] Other Visit Diagnosis:Lymphedema [I89.0] Allergies As of Date: 12/26/2017 Noted Allergy Reaction IV DYE (IODINATED CONTRAST- ORAL *05/21/2006 4 - Hives SHELLFISH 05/21/2006 4 - Hives VICTOZA (LIRAGLUTIDE) 03/30/2017 5 - Intolerance Date Reviewed: 12/25/2017 Reviewed by: Nikky (Rn) Hanna RN - Fully Assessed Prescriptions as of 12/26/2017 Sig: AMOXICILLIN 875 MG-POTASSIUM * Take 1 tablet by mouth twice * LORAZEPAM 1 MG TABLET Take 1 tablet by mouth every * FUROSEMIDE 20 MG TABLET Take 1 tablet by mouth once d* POTASSIUM CHLORIDE ER 20 MEQ * Take 1 tablet by mouth once d* DIPHENHYDRAMINE 25 MG-ACETAMI* Take 1 tablet by mouth at bed* ONDANSETRON HCL 8 MG TABLET Take 1 tablet by mouth every * LIDOCAINE-PRILOCAINE 2.5 %-2.* Apply 1 application to affect* MELATONIN 3 MG TABLET Take 6 mg by mouth daily at b* OTC NUTRITIONAL SUPPLEMENT day IBUPROFEN 200 MG TABLET Take 600 mg by mouth twice da* METFORMIN ER 500 MG TABLET,EX* Take 500 mg by mouth twice da* SUMATRIPTAN 100 MG TABLET Take 100 mg by mouth as neede* OMEPRAZOLE 40 MG CAPSULE,CARLYN* Take 40 mg by mouth once adia* [id number] 5* Take 1 capsule by mouth once * TRAMADOL 50 MG TABLET Take 50 mg by mouth three lizeth* * FLUOXETINE 20 MG CAPSULE Take 20 mg by mouth once adia* * MULTIVITAMIN TABLET Take one(1) tablet daily. * CALCIUM + D 600 MG (1,500 MG)* Take one(1) tablet twice adia* * TYLENOL EXTRA STRENGTH 500 MG* Take two(2) tablets every six* Progress Notes: Emilie Weems, PT 12/26/2017 2:32 PM Signed Episode Visit Count: 1 Therapist That Will Oversee The Plan Of Care: Emilie Weems Start of Care Date: 12/26/17 Onset Date: 07/13/17 Patient Identified by Name and Date of : Yes REHABILITATION AND SPORTS THERAPY PHYSICAL THERAPY EVALUATION PLAN OF CARE: Assessment: Jessica Rodriguez presents with the chief complaint of intermittent L UE edema following surgery and radiation treatments for Breast CA. She presents with impairments of history of cellulitis and increased risk of lymphedema and secondary skin/tissue changes. She may benefit from skilled therapy services to prevent increased volume of L UE/thoracic area, further episodes of cellulitis and secondary tissue sequela. Prognosis: Excellent Excellent due to: current objective clinical presentation;within- session changes at evaluation;good support system/ coping skills Goals for Episode of Care: created on 12/26/17 through 12/26/17 Patient / family knowledgeable re: all pertinent aspects of CDT Patient / family independent with home exercise program Planned Interventions, Frequency, and Duration: Current Frequency: 1 visit Duration: 1 visit Total Number of Visits Planned: 1 Planned Treatment Interventions: Therapeutic exercise;Manual therapy;Self-skilled nursing management;Patient/Family/Caregiver Education PLAN FOR NEXT VISIT: Pt will continue independently with instructed HEP including Decongestive Exercises and Self-Manual Lymphatic Drainage techniques. She will obtain a class I compression sleeve for L UE (wrist to axilla) for use in self-managment of her lymphedema. Patient demonstrates good understanding of plan of care and treatment. The above goals and plan of care were discussed and agreed upon by patient/family. SUBJECTIVE: Jessica Rodriguez is a 62 year old female seen today for Pt underwent B mastectomy in April of this year. She notes onset of mild swelling in L forearm in July of this year when outside painting with her . Pt notes swelling is intermittent and occurs with increased use of L UE. SHe describes performing a retrograde massage to her forearm and this has seemed to keep it down and under control. She is currently completeing radiation treatments that began in November. She notes and demonstrates full shoulder AROM B. She states she just wants to make sure she is doing the right things to prevent worsening of the lymphedema. She had a recent episode of cellulitis over raquel abdominal region and is completing a course of antibiotics. 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 Patient Goals: To make sure I am doing everything correctly for the lymphedema. Functional Limitations: (arm hurts if lifts anything heavy (>10#), increased use L UE) Prior Level of Function: Independent without limitations Intake Information: Prescription present Previous Treatment: Self prescribed exercises (Pt demonstrates retrograde massage/milking of L forearm.) Pain Score: 0/10 (up to 3-4/10 when it hurts) Pain Location: Upper Arm - Left;Elbow - Left;Forearm - Left Frequency: Intermittent Post Treatment Pain Score: 0/10 OBJECTIVE MEASURES WITH LEVEL OF FUNCTION: Lymphedema Presents with: Swelling;Pain;Decreased knowledge of lymphedema management Lymphedema is worse: (Increased use of L UE.) Lymphedema is better: (After massage.) Lymphedema Contributing Factors: Chemotherapy;Radiation;Lymph Node Removal;History of Cellulitis Skin: Skin Comments Skin Comments:: Radiation induced redness aterior chest wall. No cording, fibrosis or pitting appreciable today. Upper Extremity Circumferential Measurements R Thumb (proximal phalanx) (cm): 6 cm R Index Finger (proximal phalanx) (cm): 5 cm R Middle Finger (proximal phalanx) (cm): 6 cm R Ring Finger (proximal phalanx) (cm): 6 cm R Small Finger (proximal phalanx) (cm): 6 cm R DPC (cm): 18.5 cm R Distal Wrist Crease (DWC) (cm): 16 cm R 4 cm above wrist (cm): 17.5 cm R 8 cm above wrist (cm): 20.5 cm R 12 cm above wrist (cm): 23.5 cm R 16 cm above wrist (cm): 24.5 cm R 20 cm above wrist (cm): 25 cm (elbow) R 24 cm above wrist (cm): 26 cm R 28 cm above wrist (cm): 29.5 cm R 32 cm above wrist (cm): 33.5 cm R 36 cm above wrist (cm): 37.5 cm L Thumb (proximal phalanx) (cm): 6 cm L Index Finger (proximal phalanx) (cm): 6 cm L Middle Finger (proximal phalanx) (cm): 5.5 cm L Ring Finger (proximal phalanx) (cm): 4.5 cm L Small Finger (proximal phalanx) (cm): 4.5 cm L DPC (cm): 18.5 cm L Distal Wrist Crease (DWC) (cm): 16 cm L 4 cm above wrist (cm): 17 cm L 8 cm above wrist (cm): 19.5 cm L 12 cm above wrist (cm): 23 cm L 16 cm above wrist (cm): 24.5 cm L 20 cm above wrist (cm): 25 cm (elbow) L 24 cm above wrist (cm): 26 cm L 28 cm above wrist (cm): 30 cm L 32 cm above wrist (cm): 32.5 cm L 36 cm above wrist (cm): 38 cm UE PROM R UE PROM: full shoulder AROM L UE PROM: full shoulder AROM Education: Education Learning Preferences: Demonstration;Explanation Barriers: None Learning/educational needs: Home exercise program;Plan of Care;Lymphedema Program Education Provided: Yes, see treatment interventions for education provided Education Provided To: Patient Education Mode/Type: Demonstration;Explanation/Discussion;Literature/Printed Materials;Performance Response to Education/Teach Back: States/Identifies;Return Demonstration TREATMENT: Evaluation Therapeutic Exercise: 1: Pt was instructed in Upper Extremity Decongestive Exercises and performed each one with correct return demonstration. Skilled Intervention: Patient was educated in proper exercise technique and purpose for exercises. Skilled judgment was provided in selection of appropriate interventions. Provided written instruction for home exercise program to facilitate proper performance and compliance. Correct performance of therapeutic exercises was facilitated with verbal and visual cuing. Patient education as noted. Manual Therapy: 1: Pt was instructed in self-MLD techniques including stationary circles and pump strokes with correct hand placement and sequencing for L breast sequence. She performed return demonstration and all questions were answered to her satisfaction. Skilled Intervention: Manual skills to improve joint mobility, ROM, and decrease pain. Utilized anatomy knowledge of the therapist, and assessment of patient's response to intervention. Self-Custodial Management: 1: Educated pt in recommendation to obtain a class I compression sleeve for L UE (wrist to axilla) for use in self-management of her lymphedema. Educated pt in lymphedema treatment (CDT) including skin care/infection prevention, precautions, decongestive exercises, self-MLD techniques and compression garments. Skilled Intervention: Skilled judgment in the selection of proper modification for activity of daily living/home management based on clinical presentation, deficits, and needs. Educated the patient regarding recommendations and provided written instruction to facilitate compliance. Reviewed patient specific diagnosis in relation to activities of daily living/home management. Billing: [facility]: Evaluation - Low Complexity (75153) Therapeutic Exercise (35427): 1:1 time: 15 minutes (1 unit: 8-22 mins) Manual Therapy (57801): 1:1 time: 7 minutes (no charge) Educ Home Mgmt (14777): 1:1 time: 15 minutes (1 unit: 8-22 mins) Total time: 50 minutes Emilie Weems PT CNSW Observed: 12/26/2017 Status: COMPLETED Source: [place] 12:00 AM [facility] REPOSITORY Social Work (HEMAWS) JESSICA RODRIGUEZ ([id number]) 1955 F Date Time Provider Department 12/26/17 FAUZIA LUCIO) BRETT During your visit today, we recorded the following information about you: MONA Mclean 12/26/2017 10:23 AM Signed Social Work Problem Referral Note INFORMATION/REFERRAL : Jessica Rodriguez 62 year old female was referred by [facility] for the following reason(s): disability planning PERSONS INTERVIEWED: patient INTERVENTION: Information AND Referral Service Co-ordination Affect/Mood: The patient is noted as appropriate IDENTIFIED PROBLEMS/NEEDS: Disability Intervention/Referral to be provided:Arrangements made for continuity of care IMPRESSION/PLAN: Patient met with NIRANJAN on this day to discuss documentation that needs to be sent to her disability provider. NIRANJAN printed off all office visit notes from 11/12/17 to present and faxed to [facility] at per patient request. Patient denies other needs. F/U APPOINTMENT: PRN MONA Mclean Allergies As of Date: 12/26/2017 Noted Allergy Reaction IV DYE (IODINATED CONTRAST- ORAL *05/21/2006 4 - Hives SHELLFISH 05/21/2006 4 - Hives VICTOZA (LIRAGLUTIDE) 03/30/2017 5 - Intolerance Date Reviewed: 12/25/2017 Reviewed by: Nikky (Monet) MONET Briones - Fully Assessed Reason for Visit: Social Work Services [507] Prescriptions as of 12/26/2017 Sig: AMOXICILLIN 875 MG-POTASSIUM * Take 1 tablet by mouth twice * LORAZEPAM 1 MG TABLET Take 1 tablet by mouth every * FUROSEMIDE 20 MG TABLET Take 1 tablet by mouth once d* POTASSIUM CHLORIDE ER 20 MEQ * Take 1 tablet by mouth once d* DIPHENHYDRAMINE 25 MG-ACETAMI* Take 1 tablet by mouth at bed* ONDANSETRON HCL 8 MG TABLET Take 1 tablet by mouth every * LIDOCAINE-PRILOCAINE 2.5 %-2.* Apply 1 application to affect* MELATONIN 3 MG TABLET Take 6 mg by mouth daily at b* OTC NUTRITIONAL SUPPLEMENT calm day IBUPROFEN 200 MG TABLET Take 600 mg by mouth twice da* METFORMIN ER 500 MG TABLET,EX* Take 500 mg by mouth twice da* SUMATRIPTAN 100 MG TABLET Take 100 mg by mouth as neede* OMEPRAZOLE 40 MG CAPSULE,CARLYN* Take 40 mg by mouth once adia* [id number] 5* Take 1 capsule by mouth once * TRAMADOL 50 MG TABLET Take 50 mg by mouth three lizeth* * FLUOXETINE 20 MG CAPSULE Take 20 mg by mouth once adia* * MULTIVITAMIN TABLET Take one(1) tablet daily. 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 Encounter Status:Closed by FAUZIA LUCIO on 12/26/17 CNOV Observed: 12/25/2017 Status: COMPLETED Source: [place] 10:15 AM [facility] REPOSITORY Office Visit (RADTWS) JESSICA RODRIGUEZ ([id number]) 1955 F Date Time Provider Department 12/25/17 10:15 AM BONITA ZEPEDA During your visit today, we recorded the following information about you: Temperature Pulse Respiration Blood pressure 97.1 degrees 50/minute 20/minute 123/56 Weight 83.5 kg Nikky Briones RN, RN 12/25/2017 10:03 AM Signed Radiation Therapy - Nursing Note (OTV) PATIENT NAME: Jessica Rodriguez PATIENT December 25, 2017 [facility] FACILITY/LOCATION: [facility] NOTE TYPE: BREAST Subjective Data No c/o Additional Data Do you want to see a Cable Driller? No Status: Post-menopausal. Stress Scale: On a scale of 0 to 10, what number best describes how much distress you have experienced in the past week?(0 being no distress and 10 being extreme distress) 6 Social work notified: Pt denied need to see social professionals at this time. Nursing Assessment Fatigue: moderate; causing difficulty performing some activities Appetite: fair Nutritional Intake: Regular oral intake. Weight Gain/Loss: No Ambulatory weight history: Last 6 Encounter Wt Readings: Date: Wt: 12/25/2017 83.5 kg (184 lb) 12/24/2017 83.9 kg (185 lb) 12/21/2017 84.6 kg (186 lb 8 oz) 11/28/2017 84.8 kg (187 lb) 10/30/2017 85 kg (187 lb 8 oz) 10/24/2017 87.8 kg (193 lb 8 oz) Nausea:None Vomiting: None Bowel Function: diarrhea 2 - 3 to 5 soft or liquid bowel movements per day Erythema/Hyperpigmentation:mild Desquamation:none Rash:none Skin Care: Aquaphor Skin Sensation: mild itching and mild burning Focused Assessment BREAST: Lymphedema Assessment: Is the patient noting any swelling? No. SIGNED by: MONET Clemens MD 12/25/2017 10:10 AM Signed Radiation Oncology - On Treatment Review (OTR) Note PATIENT NAME: Jessica Rodriguez PATIENT DIAGNOSIS: Stage III, T2N2, invasive ductal carcinoma of the left breast s/p left mastectomy and sentinel node biopsy and axillary node dissection. It's ER positive (>95%, strong), RI positive (variable, weak, 0-11%), and Her2/bhavani 1+. s/p adjuvant chemotherapy. COURSE: adjuvant AREA TREATED: Left breast/SC/axilla CURRENT DOSE: 4800 cGy in 24 fx PLANNED DOSE: 6000 cGy in 30 fx SUBJECTIVE: She has cellulitis and she is on antibiotics with some improvement. EXAM: KPS: 90 BP 123/56 Pulse (!) 50 Temp 36.2 ?C (97.1 ?F) (Temporal Artery) Resp 20 Wt 83.5 kg (184 lb) LMP 02/04/2010 SpO2 99% BMI 34.96 kg/m? General Appearance: Alert and oriented. No acute distress. Moderate erythema of the left chest wall. Cellulitis in the upper abdomen and right chest wall. IMAGING/LAB RESULTS: None. Treatment chart checked: Yes Patient treatment site reviewed and verified:Yes Port films reviewed and current:Yes Medications started: None. ASSESSMENT/PLAN: Clinically stable. Toxicity within expected parameters. Continue radiation treatment as planned. Bonita Zepeda MD Allergies As of Date: 12/25/2017 Noted Allergy Reaction IV DYE (IODINATED CONTRAST- ORAL *05/21/2006 4 - Hives SHELLFISH 05/21/2006 4 - Hives VICTOZA (LIRAGLUTIDE) 03/30/2017 5 - Intolerance Date Reviewed: 12/25/2017 Reviewed by: Nikky (Rn) MONET Briones - Fully Assessed Reason for Visit: Radiotherapy On-treatment Visit [1722] Primary Visit Diagnosis:Malignant neoplasm of upper-outer quadrant of left breast in female, estrogen receptor positive (HCC) [C50.412, Z17.0] Prescriptions as of 12/25/2017 Sig: AMOXICILLIN 875 MG-POTASSIUM * Take 1 tablet by mouth twice * LORAZEPAM 1 MG TABLET Take 1 tablet by mouth every * FUROSEMIDE 20 MG TABLET Take 1 tablet by mouth once d* POTASSIUM CHLORIDE ER 20 MEQ * Take 1 tablet by mouth once d* DIPHENHYDRAMINE 25 MG-ACETAMI* Take 1 tablet by mouth at bed* ONDANSETRON HCL 8 MG TABLET Take 1 tablet by mouth every * LIDOCAINE-PRILOCAINE 2.5 %-2.* Apply 1 application to affect* MELATONIN 3 MG TABLET Take 6 mg by mouth daily at b* OTC NUTRITIONAL SUPPLEMENT calm day IBUPROFEN 200 MG TABLET Take 600 mg by mouth twice da* METFORMIN ER 500 MG TABLET,EX* Take 500 mg by mouth twice da* SUMATRIPTAN 100 MG TABLET Take 100 mg by mouth as neede* OMEPRAZOLE 40 MG CAPSULE,CARLYN* Take 40 mg by mouth once adia* [id number] 5* Take 1 capsule by mouth once * TRAMADOL 50 MG TABLET Take 50 mg by mouth three lizeth* * FLUOXETINE 20 MG CAPSULE Take 20 mg by mouth once adia* * MULTIVITAMIN TABLET Take one(1) tablet daily. 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 Visit Notes: >> Nikky (Rn) MONET Briones Dec 25, 2017 10:01 AM Status: Signed Radiation Therapy - Nursing Note (OTV) PATIENT NAME: Jessica Rodriguez PATIENT December 25, 2017 [facility] FACILITY/LOCATION: [place] [facility] NOTE TYPE: BREAST Subjective Data No c/o Additional Data Do you want to see a Cable Driller? No Status: Post-menopausal. Stress Scale: On a scale of 0 to 10, what number best describes how much distress you have experienced in the past week?(0 being no distress and 10 being extreme distress) 6 Social work notified: Pt denied need to see social professionals at this time. Nursing Assessment Fatigue: moderate; causing difficulty performing some activities Appetite: fair Nutritional Intake: Regular oral intake. Weight Gain/Loss: No Ambulatory weight history: Last 6 Encounter Wt Readings: Date: Wt: 12/25/2017 83.5 kg (184 lb) 12/24/2017 83.9 kg (185 lb) 12/21/2017 84.6 kg (186 lb 8 oz) 11/28/2017 84.8 kg (187 lb) 10/30/2017 85 kg (187 lb 8 oz) 10/24/2017 87.8 kg (193 lb 8 oz) Nausea:None Vomiting: None Bowel Function: diarrhea 2 - 3 to 5 soft or liquid bowel movements per day Erythema/Hyperpigmentation:mild Desquamation:none Rash:none Skin Care: Aquaphor Skin Sensation: mild itching and mild burning Focused Assessment BREAST: Lymphedema Assessment: Is the patient noting any swelling? No. SIGNED by: Nikky Briones RN Encounter Status:Closed by BONITA ZEPEDA MD on 12/25/17 PROGRESS Observed: 12/25/2017 Status: COMPLETED Source: [place] 10:04 AM [facility] REPOSITORY HNO ID: [id number] Author: Bonita Zepeda Service: (none) Author Type: Physician Type: Progress Notes Filed: 12/25/2017 10:10 AM Note Text: Radiation Oncology - On Treatment Review (OTR) Note PATIENT NAME: Jessica Rodriguez PATIENT DIAGNOSIS: Stage III, T2N2, invasive ductal carcinoma of the left breast s/p left mastectomy and sentinel node biopsy and axillary node dissection. It's ER positive (>95%, strong), RI positive (variable, weak, 0-11%), and Her2/bhavani 1+. s/p adjuvant chemotherapy. COURSE: adjuvant AREA TREATED: Left breast/SC/axilla CURRENT DOSE: 4800 cGy in 24 fx PLANNED DOSE: 6000 cGy in 30 fx SUBJECTIVE: She has cellulitis and she is on antibiotics with some improvement. EXAM: KPS: 90 BP 123/56 Pulse (!) 50 Temp 36.2 ?C (97.1 ?F) (Temporal Artery) Resp 20 Wt 83.5 kg (184 lb) LMP 02/04/2010 SpO2 99% BMI 34.96 kg/m? General Appearance: Alert and oriented. No acute distress. Moderate erythema of the left chest wall. Cellulitis in the upper abdomen and right chest wall. IMAGING/LAB RESULTS: None. Treatment chart checked: Yes Patient treatment site reviewed and verified:Yes Port films reviewed and current:Yes Medications started: None. ASSESSMENT/PLAN: Clinically stable. Toxicity within expected parameters. Continue radiation treatment as planned. Bonita Zepeda MD PROGRESS Observed: 12/24/2017 Status: COMPLETED Source: [place] 9:23 AM [facility] REPOSITORY HNO ID: [id number] Author: Ria Dee Service: (none) Author Type: Nurse Practitioner Type: Progress Notes Filed: 12/25/2017 8:15 AM Note Text: Chief Complaint Patient presents with: Established Patient HPI: Jessica Rodriguez is a 62 year old female who presents here today for follow up cellulitis. Per Dr. Pantoja's previous note: H/o diabetes and psoriatic arthritis. ? Patient had a screening mammogram performed on 03/22/2017 (only 3 months past annual date of previous study). There was a new mass identified in the left breast as being indeterminate. Further studies were recommended. ? Diagnostic imaging done on 03/28/2017 demonstrated a 3 cm irregular mass in left breast consistent with carcinoma and was highly suggestive of malignancy. ? Underwent core needle biopsy on 2017. ? Pathology: Left breast, ultrasound-guided needle core biopsy: Invasive ductal carcinoma, nuclear grade 3 (1 cm in greatest length). See comment. ? ER (clone 6F11) >95%, strong RI (clone 16/1E2) variable, 0-11%, weak Her-2Neu (clone CB11) 1+ ? Underwent left-sided mastectomy with left sentinel axillary lymph node biopsy along with prophylactic right-sided mastectomy on 04/20/2017. ? Pathology: FROZEN SECTION DIAGNOSIS A. Left axillary sentinel lymph nodes, biopsy: Three out of three lymph nodes positive for macrometastatic carcinoma. ? MICROSCOPIC DIAGNOSIS A. Left axillary sentinel lymph nodes, biopsy: Three out of three lymph nodes positive for macrometastatic carcinoma. See comment. B. Left breast, mastectomy: Invasive ductal carcinoma. C. Right breast: Focal intraductal hyperplasia without atypia. Negative for carcinoma in the sections examined. D. Extra skin and tissue left breast: Negative for carcinoma. ? INVASIVE BREAST CANCER SUMMARY: (Including specimen A AND B) Specimen ? total breast (including nipple and skin). Procedure ? total mastectomy (including nipple and skin). Lymph node sampling ? sentinel lymph nodes Specimen integrity ? single intact specimen. Specimen laterality - left Tumor size ? 3.5 x 3.3 x 3 cm Tumor focality ? single focus of invasive carcinoma Macroscopic and Microscopic extent of tumor: Skin ? invasive carcinoma does not invade into the dermis or epidermis. Nipple ? ductal carcinoma in situ does not nipple epidermis. Skeletal muscle ? no skeletal muscle present. Ductal carcinoma in situ (DCIS) ? no ductal carcinoma in situ is present. Lobular carcinoma in situ (LCIS) ? not identified Histologic type of invasive carcinoma ? invasive ductal carcinoma (no special type). Histologic Grade ([place] grade): Glandular/tubular differentiation - score 3 Nuclear pleomorphism - score 3 Mitotic count ? score 2 Overall grade - 3 (score of 8) Margins - Margins uninvolved by invasive carcinoma. The invasive carcinoma is 1.5 cm away from the closest posterior margin. Treatment effect: Response to presurgical (neoadjuvant) therapy - no known presurgical therapy. Lymph-Vascular invasion ? not identified Dermal lymph-vascular invasion - not identified Lymph nodes: Number of sentinel lymph nodes examined - 3 Total number of lymph nodes examined (sentinel and nonsentinel) - 3 Number of lymph nodes with macrometastases - 3 Number of lymph nodes with micrometastases and isolated tumor cells - 0 Size of largest metastatic deposit ? 3.6 cm Extranodal extension ? present, focal (0.4 cm in greatest dimension) Distance metastasis ? not applicable Additional pathologic findings ? fibrocystic changes and intraductal hyperplasia without atypia. Ancillary studies - previously performed on section of tumor ([id number] / [id number]). ER ? positive (>95%, strong) RI ? positive (variable, 0-11%, weak) Her2 bhavani ? negative (1+) Microcalcifications ? not identified Clinical history - Please make reference to previous specimen ([id number]) left breast, ultrasound-guided needle core biopsy with diagnosis of invasive ductal carcinoma. ? PATHOLOGIC STAGE: pT2 pN1a(sn) Mx The above summary is in compliance with [employer] [place] [employer] (CAP) Cancer Protocols Checklist and [place] Joint Committee on Cancer (AJCC), Staging Manual, 8th Ed. ? COMMENT A. The lymph nodes are almost completely involved by the metastatic tumor. The largest lymph node measures 3.6 cm in greatest dimension. The largest focus of metastasis measures 3.6 cm in greatest dimension. Focal extranodal distention is noted which measures 0.4 cm in greatest dimension. ? Underwent completion axillary dissection 05/27/2017. ? Pathology: MICROSCOPIC DIAGNOSIS A. Left axillary contents, regional lymphadenectomy: Isolated metastatic tumor cells in one of seven lymph nodes. B. ?Dog ear,? excision: Skin with attached fibrofatty tissue with reactive and reparative change and suture granulomas. No evidence of malignancy. ? COMMENT Case has been reviewed in consultation with Dr. Skinner who concurs with the above diagnosis. ? MICROSCOPIC DESCRIPTION Slides are reviewed. A. The largest lymph node contains benign histiocytic proliferation, fibrosis and minimal chronic inflammation consistent with previous biopsy and resection ([id number]). ? Immunohistochemistry ([id number]) supports the presence of isolated metastatic tumor cells in one out of seven lymph nodes. ? Previous therapy: 1) Adjuvant AC followed by Taxol. Current therapy:XRT Pt. was seen Sunday by Dr. Aleman for fevers and dx with cellulitis. Rocephin 2 gram IV given in office on Sunday. She was started on Augmentin. Cultures neg. I'm feeling much better. Appetite:it's coming back now. Energy level:it's getting better No fevers since Sunday evening. Mouth:denies sores Resp:denies cough or sob Cardiac:denies chest pain/palpitations GI:denies abd pain, n/v, moving bowels regularly :denies dysuria/hematuria Extrem:some ouchy from radiation Endo:occ. hot flashes Neuro:neuropathy to finger tips Skin:denies rashes Heme:denies bleeding The ROS is otherwise negative. Past medical history, appointments, medications, allergies reviewed. No changes. EXAM: BP 103/57 Pulse 66 Temp 36.7 ?C (98.1 ?F) Wt 83.9 kg (185 lb) LMP 02/04/2010 BMI 35.15 kg/m? APPEARANCE Well appearing, alert, in no acute distress, well-hydrated, well nourished. HEART RRR with normal S1 and S2, no murmurs LUNG clear to auscultation LYMPH NODES No cervical lymphadenopathy, No supraclavicular lymphadenopathy and No axillary lymphadenopathy. BREAST R mastectomy scar, area that was open on Sunday now closed/healed/no tenderness/drainage (this site was cultured on Sunday), L mastectomy scar no nodule/radiation erythema ABDOMEN bowel sounds normoactive, no bruits, soft, non-tender, non-distended, without organomegaly or palpable masses EXTREMITIES No edema NEURO Awake, alert and oriented x 3, Normal gait and No involuntary motions. SKIN erythema persists to L chest/abdomen, blanchable, nt, no open areas/drainage ASSESSMENT/PLAN: 1. Malignant neoplasm of upper-outer quadrant of left breast in female, estrogen receptor positive (HCC) - ICD9: 174.4, V86.0, ICD10: C50.412, Z17.0 (primary diagnosis) pT2 (3.5 cm; grade 3; no LVI) pN1a (3 of 3 SLNs) MX ER/RI positive, HER2 negative invasive ductal carcinoma the left breast. 2. Cellulitis of abdominal wall - ICD9: 682.2, ICD10: L03.311 - Per pt. erythema is much better - Culture neg. - Cellulitis improved. No fevers since Sunday night. - Continue Augmentin. - Off work letter given to pt. for this week at her request. - Follow up as scheduled. - Pt. aware to call office with any questions/concerns. The patient indicates understanding of these issues and agrees with the plan. Ria Dee APRN.MANI CNOVSP Observed: 12/24/2017 Status: COMPLETED Source: [place] 9:00 AM [facility] REPOSITORY Visit (SP) Office ([place]) LARRYJESSICA Dougherty ([id number]) 1955 F Date Time Provider Department 12/24/17 9:00 AM RIA DEE During your visit today, we recorded the following information about you: Temperature Pulse Blood pressure Weight 98.1 degrees 66/minute 103/[address] LPN, LISA 12/24/2017 9:23 AM Signed Et pt, f/u cellulitis abdomen LISA Fung APRN.FORGING MACHINE OPERATOR 12/25/2017 8:15 AM Signed Chief Complaint Patient presents with: Established Patient HPI: Jessica Castillo Michael is a 62 year old female who presents here today for follow up cellulitis. Per Dr. Pantoja's previous note: H/o diabetes and psoriatic arthritis. ? Patient had a screening mammogram performed on 03/22/2017 (only 3 months past annual date of previous study). There was a new mass identified in the left breast as being indeterminate. Further studies were recommended. ? Diagnostic imaging done on 03/28/2017 demonstrated a 3 cm irregular mass in left breast consistent with carcinoma and was highly suggestive of malignancy. ? Underwent core needle biopsy on 2017. ? Pathology: Left breast, ultrasound-guided needle core biopsy: Invasive ductal carcinoma, nuclear grade 3 (1 cm in greatest length). See comment. ? ER (clone 6F11) >95%, strong RI (clone 16/1E2) variable, 0-11%, weak Her-2Neu (clone CB11) 1+ ? Underwent left-sided mastectomy with left sentinel axillary lymph node biopsy along with prophylactic right-sided mastectomy on 04/20/2017. ? Pathology: FROZEN SECTION DIAGNOSIS A. Left axillary sentinel lymph nodes, biopsy: Three out of three lymph nodes positive for macrometastatic carcinoma. ? MICROSCOPIC DIAGNOSIS A. Left axillary sentinel lymph nodes, biopsy: Three out of three lymph nodes positive for macrometastatic carcinoma. See comment. B. Left breast, mastectomy: Invasive ductal carcinoma. C. Right breast: Focal intraductal hyperplasia without atypia. Negative for carcinoma in the sections examined. D. Extra skin and tissue left breast: Negative for carcinoma. ? INVASIVE BREAST CANCER SUMMARY: (Including specimen A AND B) Specimen ? total breast (including nipple and skin). Procedure ? total mastectomy (including nipple and skin). Lymph node sampling ? sentinel lymph nodes Specimen integrity ? single intact specimen. Specimen laterality - left Tumor size ? 3.5 x 3.3 x 3 cm Tumor focality ? single focus of invasive carcinoma Macroscopic and Microscopic extent of tumor: Skin ? invasive carcinoma does not invade into the dermis or epidermis. Nipple ? ductal carcinoma in situ does not nipple epidermis. Skeletal muscle ? no skeletal muscle present. Ductal carcinoma in situ (DCIS) ? no ductal carcinoma in situ is present. Lobular carcinoma in situ (LCIS) ? not identified Histologic type of invasive carcinoma ? invasive ductal carcinoma (no special type). Histologic Grade ([place] grade): Glandular/tubular differentiation - score 3 Nuclear pleomorphism - score 3 Mitotic count ? score 2 Overall grade - 3 (score of 8) Margins - Margins uninvolved by invasive carcinoma. The invasive carcinoma is 1.5 cm away from the closest posterior margin. Treatment effect: Response to presurgical (neoadjuvant) therapy - no known presurgical therapy. Lymph-Vascular invasion ? not identified Dermal lymph-vascular invasion - not identified Lymph nodes: Number of sentinel lymph nodes examined - 3 Total number of lymph nodes examined (sentinel and nonsentinel) - 3 Number of lymph nodes with macrometastases - 3 Number of lymph nodes with micrometastases and isolated tumor cells - 0 Size of largest metastatic deposit ? 3.6 cm Extranodal extension ? present, focal (0.4 cm in greatest dimension) Distance metastasis ? not applicable Additional pathologic findings ? fibrocystic changes and intraductal hyperplasia without atypia. Ancillary studies - previously performed on section of tumor ([id number] / [id number]). ER ? positive (>95%, strong) RI ? positive (variable, 0-11%, weak) Her2 bhavani ? negative (1+) Microcalcifications ? not identified Clinical history - Please make reference to previous specimen ([id number]) left breast, ultrasound-guided needle core biopsy with diagnosis of invasive ductal carcinoma. ? PATHOLOGIC STAGE: pT2 pN1a(sn) Mx The above summary is in compliance with [employer] [place] [employer] (CAP) Cancer Protocols Checklist and [place] Joint Committee on Cancer (AJCC), Staging Manual, 8th Ed. ? COMMENT A. The lymph nodes are almost completely involved by the metastatic tumor. The largest lymph node measures 3.6 cm in greatest dimension. The largest focus of metastasis measures 3.6 cm in greatest dimension. Focal extranodal distention is noted which measures 0.4 cm in greatest dimension. ? Underwent completion axillary dissection 05/27/2017. ? Pathology: MICROSCOPIC DIAGNOSIS A. Left axillary contents, regional lymphadenectomy: Isolated metastatic tumor cells in one of seven lymph nodes. B. ?Dog ear,? excision: Skin with attached fibrofatty tissue with reactive and reparative change and suture granulomas. No evidence of malignancy. ? COMMENT Case has been reviewed in consultation with Dr. Skinner who concurs with the above diagnosis. ? MICROSCOPIC DESCRIPTION Slides are reviewed. A. The largest lymph node contains benign histiocytic proliferation, fibrosis and minimal chronic inflammation consistent with previous biopsy and resection (S18990). ? Immunohistochemistry ([id number]) supports the presence of isolated metastatic tumor cells in one out of seven lymph nodes. ? Previous therapy: 1) Adjuvant AC followed by Taxol. Current therapy:XRT Pt. was seen Sunday by Dr. Aleman for fevers and dx with cellulitis. Rocephin 2 gram IV given in office on Sunday. She was started on Augmentin. Cultures neg. I'm feeling much better. Appetite:it's coming back now. Energy level:it's getting better No fevers since Sunday evening. Mouth:denies sores Resp:denies cough or sob Cardiac:denies chest pain/palpitations GI:denies abd pain, n/v, moving bowels regularly :denies dysuria/hematuria Extrem:some ouchy from radiation Endo:occ. hot flashes Neuro:neuropathy to finger tips Skin:denies rashes Heme:denies bleeding The ROS is otherwise negative. Past medical history, appointments, medications, allergies reviewed. No changes. EXAM: BP 103/57 Pulse 66 Temp 36.7 ?C (98.1 ?F) Wt 83.9 kg (185 lb) LMP 02/04/2010 BMI 35.15 kg/m? APPEARANCE Well appearing, alert, in no acute distress, well- hydrated, well nourished. HEART RRR with normal S1 and S2, no murmurs LUNG clear to auscultation LYMPH NODES No cervical lymphadenopathy, No supraclavicular lymphadenopathy and No axillary lymphadenopathy. BREAST R mastectomy scar, area that was open on Sunday now closed/healed/no tenderness/drainage (this site was cultured on Sunday), L mastectomy scar no nodule/radiation erythema ABDOMEN bowel sounds normoactive, no bruits, soft, non-tender, non-distended, without organomegaly or palpable masses EXTREMITIES No edema NEURO Awake, alert and oriented x 3, Normal gait and No involuntary motions. SKIN erythema persists to L chest/abdomen, blanchable, nt, no open areas/drainage ASSESSMENT/PLAN: 1. Malignant neoplasm of upper-outer quadrant of left breast in female, estrogen receptor positive (HCC) - ICD9: 174.4, V86.0, ICD10: C50.412, Z17.0 (primary diagnosis) pT2 (3.5 cm; grade 3; no LVI) pN1a (3 of 3 SLNs) MX ER/RI positive, HER2 negative invasive ductal carcinoma the left breast. 2. Cellulitis of abdominal wall - ICD9: 682.2, ICD10: L03.311 - Per pt. erythema is much better - Culture neg. - Cellulitis improved. No fevers since Sunday night. - Continue Augmentin. - Off work letter given to pt. for this week at her request. - Follow up as scheduled. - Pt. aware to call office with any questions/concerns. The patient indicates understanding of these issues and agrees with the plan. Ria Dee APRN.FORGING MACHINE OPERATOR Referring Provider: KATIE ALEMAN [[id number]] Allergies As of Date: 12/24/2017 Noted Allergy Reaction IV DYE (IODINATED CONTRAST- ORAL *05/21/2006 4 - Hives SHELLFISH 05/21/2006 4 - Hives VICTOZA (LIRAGLUTIDE) 03/30/2017 5 - Intolerance Date Reviewed: 12/24/2017 Reviewed by: Ria Dee - Fully Assessed Reason for Visit: Established Patient [175] Primary Visit Diagnosis:Malignant neoplasm of upper-outer quadrant of left breast in female, estrogen receptor positive (HCC) [C50.412, Z17.0] Other Visit Diagnosis:Cellulitis of abdominal wall [L03.311] Follow-up and Disposition History Recorded Prescriptions as of 12/24/2017 Sig: AMOXICILLIN 875 MG-POTASSIUM * Take 1 tablet by mouth twice * LORAZEPAM 1 MG TABLET Take 1 tablet by mouth every * FUROSEMIDE 20 MG TABLET Take 1 tablet by mouth once d* POTASSIUM CHLORIDE ER 20 MEQ * Take 1 tablet by mouth once d* DIPHENHYDRAMINE 25 MG-ACETAMI* Take 1 tablet by mouth at bed* ONDANSETRON HCL 8 MG TABLET Take 1 tablet by mouth every * LIDOCAINE-PRILOCAINE 2.5 %-2.* Apply 1 application to affect* OTC NUTRITIONAL SUPPLEMENT day IBUPROFEN 200 MG TABLET Take 600 mg by mouth twice da* METFORMIN ER 500 MG TABLET,EX* Take 500 mg by mouth twice da* OMEPRAZOLE 40 MG CAPSULE,CARLYN* Take 40 mg by mouth once adia* AIPTUIFKAD-SBIXXJR-PAKDXMOB 5* Take 1 capsule by mouth once * TRAMADOL 50 MG TABLET Take 50 mg by mouth three lizeth* * FLUOXETINE 20 MG CAPSULE Take 20 mg by mouth once adia* * CALCIUM + D 600 MG (1,500 MG)* Take one(1) tablet twice adia* * TYLENOL EXTRA STRENGTH 500 MG* Take two(2) tablets every six* MELATONIN 3 MG TABLET Take 6 mg by mouth daily at b* SUMATRIPTAN 100 MG TABLET Take 100 mg by mouth as neede* * MULTIVITAMIN TABLET Take one(1) tablet daily. Problem List As Of Date 12/24/2017 Noted Resolved Postmenopausal bleeding [N95.0] INVALID FOR* Ovarian cyst [N83.209] INVALID FOR* Malignant neoplasm of upper-outer quadrant of l*INVALID FOR* 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 Visit Notes: >> Kathi Albrets (Banquet Set Up Person) LISA St SunDec 24, 2017 9:02 AM Status: Signed Et pt, f/u cellulitis abdomen Kathi DesaiLISA marmolejo Encounter Status:Closed by RIA DEE CNP on 12/25/17 PROGRESS Observed: 12/24/2017 Status: COMPLETED Source: [place] 12:00 AM [facility] REPOSITORY HNO ID: [id number] Author: Bonita Zepeda Service: (none) Author Type: Physician Type: Progress Notes Filed: 12/25/2017 12:34 AM Note Text: JESSICA RODRIGUEZ [id number] 12/24/2017 [facility] Department of Radiation Oncology RADIATION ONCOLOGY ELECTRON SIMULATION NOTE SITE:LEFT CHEST WALL DIAGNOSIS: Stage III, T2N2, invasive ductal carcinoma of the left breast s/p left mastectomy and sentinel node biopsy and axillary node dissection. It's ER positive (>95%, strong), RI positive (variable, weak, 0-11%), and Her2/bhavani 1+. s/p adjuvant chemotherapy. FIELD NUMBER(S): A9 REASON FOR SIMULATION: Boost IMMOBILIZATION DEVICE: ORFIT SYSTEM FIELD ARRANGEMENT: ENFACE BLOCKING AND RACK PUNCHER: A custom cerrobend block is necessary to shape the radiation beam and protect surrounding anatomy. VERIFICATION SIMULATION OF ELECTRON FIELD PER PLAN: no COMMENTS: Setup of the boost field was performed on the treatment machine. Templates were created for the construction of the blocks as well as daily reproducibility of the treatment field. Electronically Signed BONITA ZEPEDA M.D. /dw10:15 12/24/20174:11 PM PROGRESS Observed: 12/21/2017 Status: COMPLETED Source: [place] 10:50 AM [facility] REPOSITORY HNO ID: [id number] Author: Katie Aleman Service: (none) Author Type: Physician Type: Progress Notes Filed: 12/22/2017 9:54 AM Note Text: Hematology and Medical Oncology PATIENT NAME: Jessica Rodriguez. CLINIC NO: [id number]. ATTENDING PHYSICIAN: Katie Aleman MD. DATE OF SERVICE:12/21/2017. DIAGNOSIS: Breast cancer. CHIEF COMPLAINT: fever / cellulitis of chest wall PERFORMANCE STATUS:9 HPI: The patient is a 62-year-old female was a past medical history significant for diabetes and psoriatic arthritis. ? Patient had a screening mammogram performed on 03/22/2017 (only 3 months past annual date of previous study). There was a new mass identified in the left breast as being indeterminate. Further studies were recommended. ? Diagnostic imaging done on 03/28/2017 demonstrated a 3 cm irregular mass in left breast consistent with carcinoma and was highly suggestive of malignancy. ? Underwent core needle biopsy on 2017. ? Pathology: Left breast, ultrasound-guided needle core biopsy: Invasive ductal carcinoma, nuclear grade 3 (1 cm in greatest length). See comment. ? ER (clone 6F11) >95%, strong RI (clone 16/1E2) variable, 0-11%, weak Her-2Neu (clone CB11) 1+ ? Underwent left-sided mastectomy with left sentinel axillary lymph node biopsy along with prophylactic right-sided mastectomy on 04/20/2017. ? Pathology: FROZEN SECTION DIAGNOSIS A. Left axillary sentinel lymph nodes, biopsy: Three out of three lymph nodes positive for macrometastatic carcinoma. ? MICROSCOPIC DIAGNOSIS A. Left axillary sentinel lymph nodes, biopsy: Three out of three lymph nodes positive for macrometastatic carcinoma. See comment. B. Left breast, mastectomy: Invasive ductal carcinoma. C. Right breast: Focal intraductal hyperplasia without atypia. Negative for carcinoma in the sections examined. D. Extra skin and tissue left breast: Negative for carcinoma. ? INVASIVE BREAST CANCER SUMMARY: (Including specimen A AND B) Specimen ? total breast (including nipple and skin). Procedure ? total mastectomy (including nipple and skin). Lymph node sampling ? sentinel lymph nodes Specimen integrity ? single intact specimen. Specimen laterality - left Tumor size ? 3.5 x 3.3 x 3 cm Tumor focality ? single focus of invasive carcinoma Macroscopic and Microscopic extent of tumor: Skin ? invasive carcinoma does not invade into the dermis or epidermis. Nipple ? ductal carcinoma in situ does not nipple epidermis. Skeletal muscle ? no skeletal muscle present. Ductal carcinoma in situ (DCIS) ? no ductal carcinoma in situ is present. Lobular carcinoma in situ (LCIS) ? not identified Histologic type of invasive carcinoma ? invasive ductal carcinoma (no special type). Histologic Grade ([place] grade): Glandular/tubular differentiation - score 3 Nuclear pleomorphism - score 3 Mitotic count ? score 2 Overall grade - 3 (score of 8) Margins - Margins uninvolved by invasive carcinoma. The invasive carcinoma is 1.5 cm away from the closest posterior margin. Treatment effect: Response to presurgical (neoadjuvant) therapy - no known presurgical therapy. Lymph-Vascular invasion ? not identified Dermal lymph-vascular invasion - not identified Lymph nodes: Number of sentinel lymph nodes examined - 3 Total number of lymph nodes examined (sentinel and nonsentinel) - 3 Number of lymph nodes with macrometastases - 3 Number of lymph nodes with micrometastases and isolated tumor cells - 0 Size of largest metastatic deposit ? 3.6 cm Extranodal extension ? present, focal (0.4 cm in greatest dimension) Distance metastasis ? not applicable Additional pathologic findings ? fibrocystic changes and intraductal hyperplasia without atypia. Ancillary studies - previously performed on section of tumor ([id number] / [id number]). ER ? positive (>95%, strong) RI ? positive (variable, 0-11%, weak) Her2 bhavani ? negative (1+) Microcalcifications ? not identified Clinical history - Please make reference to previous specimen ([id number]) left breast, ultrasound-guided needle core biopsy with diagnosis of invasive ductal carcinoma. ? PATHOLOGIC STAGE: pT2 pN1a(sn) Mx The above summary is in compliance with [employer] [place] [employer] (CAP) Cancer Protocols Checklist and [place] Joint Committee on Cancer (AJCC), Staging Manual, 8th Ed. ? COMMENT A. The lymph nodes are almost completely involved by the metastatic tumor. The largest lymph node measures 3.6 cm in greatest dimension. The largest focus of metastasis measures 3.6 cm in greatest dimension. Focal extranodal distention is noted which measures 0.4 cm in greatest dimension. ? Underwent completion axillary dissection 05/27/2017. ? Pathology: MICROSCOPIC DIAGNOSIS A. Left axillary contents, regional lymphadenectomy: Isolated metastatic tumor cells in one of seven lymph nodes. B. ?Dog ear,? excision: Skin with attached fibrofatty tissue with reactive and reparative change and suture granulomas. No evidence of malignancy. ? COMMENT Case has been reviewed in consultation with Dr. Skinner who concurs with the above diagnosis. ? MICROSCOPIC DESCRIPTION Slides are reviewed. A. The largest lymph node contains benign histiocytic proliferation, fibrosis and minimal chronic inflammation consistent with previous biopsy and resection ([id number]). ? Immunohistochemistry ([id number]) supports the presence of isolated metastatic tumor cells in one out of seven lymph nodes. ? Previous therapy: 1) Adjuvant AC followed by Taxol. ? Presents for ongoing oncologic management. ? Interim history: patient had her port removed last month and started adjuvant radiation therapy. Starting yesterday she has fever of 101 and chills. She continues to have a temperature this morning 102. There is an area of breakdown in the skin on the right mastectomy site. She noticed significant swelling and redness on her chest and upper abdomen consistent with cellulitis. It does not itch except for the area of radiation. Patient has no cough, shortness of breath no urinary symptom. She denied nausea or vomiting. ? MEDICATIONS: Current Outpatient Prescriptions: LORazepam (ATIVAN) 1 mg tablet Take 1 tablet by mouth every 8 hours as needed for up to 30 days. furosemide (LASIX) 20 mg tablet Take 1 tablet by mouth once daily. potassium chloride ER (K-DUR, KLOR-CON) 20 mEq tablet Take 1 tablet by mouth once daily. diphenhydrAMINE-Acetaminophen (TYLENOL PM EXTRA STRENGTH) 25-500 mg tab Take 1 tablet by mouth at bedtime as needed. ondansetron (ZOFRAN) 8 mg tablet Take 1 tablet by mouth every 8 hours as needed for Nausea/Vomiting. lidocaine-prilocaine (EMLA) cream Apply 1 application to affected area as needed. melatonin 3 mg tablet Take 6 mg by mouth daily at bedtime. OTC NUTRITIONAL SUPPLEMENT day ibuprofen (MOTRIN) 200 mg tablet Take 600 mg by mouth twice daily. metFORMIN ER (GLUCOPHAGE XR) 500 mg 24 hr tablet Take 500 mg by mouth twice daily. SUMAtriptan (IMITREX) 100 mg tablet Take 100 mg by mouth as needed. Omeprazole (PRILOSEC) 40 mg capsule Take 40 mg by mouth once daily. xszbhmi-aouhlant-ightbtyzvk capsule Take 1 capsule by mouth once daily as needed. PRN traMADol 50 mg tablet Take 50 mg by mouth three times daily as needed. fluoxetine 20 mg ORAL capsule Take 20 mg by mouth once daily. MULTIVITAMIN TAB Take one(1) tablet daily. CALCIUM + D 600 MG-200 UNIT TAB Take one(1) tablet twice daily. TYLENOL EXTRA STRENGTH 500 MG TAB Take two(2) tablets every six(6) hours as needed for pain. amoxicillin-clavulanic acid (AUGMENTIN) 875-125 mg per tablet Take 1 tablet by mouth twice daily for 10 days. FOR 10 DAYS. No current facility-administered medications for this visit. . ALLERGIES: ALLERGIES Allergen Reactions - Iv Dye [Iodinated C* Hives - Shellfish Hives - Victoza [Liraglutid* Intolerance . PAST MEDICAL HISTORY: PAST MEDICAL HISTORY Diagnosis Date - Breast cancer metastasized to axillary lymph node, left (HCC) 03/22/2017 - Diverticulosis of colon with hemorrhage - Personal history of colonic polyps - PMH - PAST MEDICAL HISTORY OF SPASTIC COLON - Psoriatic arthritis (HCC) - Tension headache - Type II or unspecified type diabetes mellitus without mention of complication, not stated as uncontrolled . PAST SURGICAL HISTORY: PAST SURGICAL HISTORY Procedure Laterality Date - COLONOSCOP W/ OR W/O [facility] SPEC 2000 Colonoscopy - COLONOSCOP W/ OR W/O [facility] SPEC 12/09/2012 Colonoscopy - EGD W/O OR W/BRUSH/WASH 12/09/2012 EGD - EXCIS BREAST LESION Left breast - HYSTEROSCOPY WBX WWO D AND C ANDOR POLYPECTOMY 2011 PMB- polyps - LIGATE FALLOPIAN TUBE - MASTECTOMY, RADICAL Bilateral 2017 - PAST SURGICAL HISTORY OF cyst removed from back - S PORTACATH [id number] 05/08/2017 right sided portacath [place] . FAMILY HISTORY: FAMILY HISTORY Problem Relation Age of Onset - Osteoporosis Mother - Arthritis Mother - GI Mother IBS - Diabetes Father - Heart Father - Lipids Father - Breast Cancer Maternal Grandmother - Prostate Cancer Maternal Grandfather - Osteoporosis Sister - Hypertension Sister . SOCIAL HISTORY:Social History Marital status: Spouse name: Niles Years of education: 16 Number of children: 0 Occupational History Occupation Employer Comment [employer] [facility] [employer] [facility]* Social History Main Topics Smoking status: Passive Smoke Exposure - Never Smoker Packs/day: 0.00 Years: 0.00 Types: Cigarettes Smokeless tobacco: Never Used Comment: smokes socially Alcohol use: No Drug use: No Sexual activity: Not Currently Partners with: Male control/protection: Tubal Ligation .REVIEW OF SYSTEMS Constitutional: + fever and chills, no night sweats. Neuro: Denies OWENS, vertigo, dizziness and imbalance. HEENT: No recent change in voice, vision or hearing. Resp: Denies cough, wheeze and hemoptysis. CVS: See above. : Denies dysuria or gross hematuria. No symptoms of bladder outlet obstruction. Endo: Denies hot flashes. Denies polyuria and polydipsia. Denies heat and cold intolerance. Musculoskeletal: Off [place]. Heme: Denies unusual bleeding and unexplained bruising. Psych: Normal mood. PHYSICAL EXAMINATION: 62-year-old female in no acute distress. BP 116/69 Pulse 90 Temp (Src) 100.2 (Oral) Wt 186 lb 8 oz (84.6kg) LMP 02/04/2010 HEENT: Head is normocephalic, atraumatic. Sclerae white, conjunctivae pink. PEERL. EOMs are intact. Oropharynx is benign. LYMPHATICS: There is no palpable adenopathy in the neck, supraclavicular region, axillae, or groin. BREASTS: bilateral mastectomy sites showed radiation changes. Skin breakdown in the right mastectomy area. Wound culture obtained. erythema and warmth to touch area on upper abdomen and chest LUNGS: Lungs are clear to percussion and auscultation. HEART: Heart is normal without murmurs, gallops, or rubs. ABDOMEN: Soft and nontender without organomegaly. No masses can be palpated. EXTREMITIES: Are without edema. NEUROLOGIC: Exam is physiologic LABORATORY DATA: Component Latest Ref Rng AND Units 12/21/2017 WBC, [place] 3.70 - 11.00 k/uL 10.70 RBC, [place] 3.90 - 5.20 m/uL 4.19 Hemoglobin, [place] 11.5 - 15.5 g/dL 11.8 Hematocrit, Phyllis 36.0 - 46.0 % 36.6 MCV, Phyllis 80.0 - 100.0 fL 87.4 MCH, [place] 26.0 - 34.0 pg 28.2 MCHC, Phyllis 30.5 - 36.0 g/dL 32.2 RDW, Phyllis 11.5 - 15.0 % 14.6 Platelet Cnt, Phyllis 150 - 400 k/uL 157 MPV, [place] 9.0 - 12.7 fL 8.8 (L) Absol Gran Count 1.45 - 7.50 k/uL 10.06 (H) Component Latest Ref Rng AND Units 12/21/2017 Protein, Total 6.3 - 8.0 g/dL 6.4 Albumin 3.9 - 4.9 g/dL 4.1 Calcium 8.5 - 10.2 mg/dL 9.4 Bilirubin, Total 0.2 - 1.3 mg/dL 0.5 Alkaline Phosphatase 34 - 123 U/L 78 AST 13 - 35 U/L 18 Glucose 74 - 99 mg/dL 195 (H) BUN 7 - 21 mg/dL 8 Creatinine 0.58 - 0.96 mg/dL 0.65 Sodium 136 - 144 mmol/L 135 (L) Potassium 3.7 - 5.1 mmol/L 3.6 (L) Chloride 97 - 105 mmol/L 100 CO2 22 - 30 mmol/L 26 Anion Gap mmol/L 9 ALT 7 - 38 U/L 15 eGFR- >60 eGFR-All Other Races . >60 Component Latest Ref Rng AND Units 12/21/2017 12/21/2017 9:50 AM 9:56 AM Specimen Request The blood culture bottles are underfilled. Adding volume lower or higher than the . . . Culture No growth <24 hrs No growth <24 hrs ASSESSMENT: 62-year-old female with history of diabetes mellitus status post bilateral mastectomy for breast cancer currently receiving radiation therapy. Patient had fever and chills along with skin breakdown consistent with cellulitis of the chest wall and upper abdomen. PLAN: - Blood cultures x 2 AND wound culture obtained today. - Rocephin 2 gram IV given today AND start Augmentin 875mg twice daily x 10 days - Follow up next Sunday. If her symptom does not improve, or she still have persistent fever, she should call this weekend for possible hospital admission for treatment of cellulitis. I spent 25 minutes in the visit, with more than 50% of the total [id number]-[id number] time of the visit in counseling / coordination of care. Katie Aleman MD. ELECTRONICALLY SIGNED Cc: Dr. Ruth Clark WOUND Observed: 12/21/2017 Status: F Source: [place] CULTURE/STAIN 10:30 AM [facility] REPOSITORY Sp. Request/Comment: - Swab Smear Result - No organisms seen No Polymorphonuclear Leukocytes Culture Result - Rare skin radha One colony. --> ABNORMAL ALERT Streptococcus agalactiae (Group B streptococcus) --> ABNORMAL ALERT Susceptibility testing not performed on beta hemolytic streptoco cci due to predictable susceptibility to penicillin and other beta lactams. For testing, call Microbiology within 72 hours. --> ABNORMAL ALERT Performed By: #### WCUL #### [facility] [place] [facility] [address] [place], [place] [address] CNOVSP Observed: 12/21/2017 Status: COMPLETED Source: [place] 10:00 AM [facility] REPOSITORY Visit (SP) Office (HEMAWS) MICHAELJESSICA Castillo ([id number]) 1955 F Date Time Provider Department 12/21/17 10:00 AM KATIE ALEMAN During your visit today, we recorded the following information about you: Temperature Pulse Blood pressure Weight 100.2 degrees 90/minute 116/69 84.6 kg Katie Aleman MD 12/22/2017 9:54 AM Signed Hematology and Medical Oncology PATIENT NAME: Jessica Rodriguez. CLINIC NO: [id number]. ATTENDING PHYSICIAN: Katie Aleman MD. DATE OF SERVICE:12/21/2017. DIAGNOSIS: Breast cancer. CHIEF COMPLAINT: fever / cellulitis of chest wall PERFORMANCE STATUS:9 HPI: The patient is a 62-year-old female was a past medical history significant for diabetes and psoriatic arthritis. ? Patient had a screening mammogram performed on 03/22/2017 (only 3 months past annual date of previous study). There was a new mass identified in the left breast as being indeterminate. Further studies were recommended. ? Diagnostic imaging done on 03/28/2017 demonstrated a 3 cm irregular mass in left breast consistent with carcinoma and was highly suggestive of malignancy. ? Underwent core needle biopsy on 2017. ? Pathology: Left breast, ultrasound-guided needle core biopsy: Invasive ductal carcinoma, nuclear grade 3 (1 cm in greatest length). See comment. ? ER (clone [id number]) >95%, strong RI (clone 16/1E2) variable, 0-11%, weak Her-2Neu (clone CB11) 1+ ? Underwent left-sided mastectomy with left sentinel axillary lymph node biopsy along with prophylactic right-sided mastectomy on 04/20/2017. ? Pathology: FROZEN SECTION DIAGNOSIS A. Left axillary sentinel lymph nodes, biopsy: Three out of three lymph nodes positive for macrometastatic carcinoma. ? MICROSCOPIC DIAGNOSIS A. Left axillary sentinel lymph nodes, biopsy: Three out of three lymph nodes positive for macrometastatic carcinoma. See comment. B. Left breast, mastectomy: Invasive ductal carcinoma. C. Right breast: Focal intraductal hyperplasia without atypia. Negative for carcinoma in the sections examined. D. Extra skin and tissue left breast: Negative for carcinoma. ? INVASIVE BREAST CANCER SUMMARY: (Including specimen A AND B) Specimen ? total breast (including nipple and skin). Procedure ? total mastectomy (including nipple and skin). Lymph node sampling ? sentinel lymph nodes Specimen integrity ? single intact specimen. Specimen laterality - left Tumor size ? 3.5 x 3.3 x 3 cm Tumor focality ? single focus of invasive carcinoma Macroscopic and Microscopic extent of tumor: Skin ? invasive carcinoma does not invade into the dermis or epidermis. Nipple ? ductal carcinoma in situ does not nipple epidermis. Skeletal muscle ? no skeletal muscle present. Ductal carcinoma in situ (DCIS) ? no ductal carcinoma in situ is present. Lobular carcinoma in situ (LCIS) ? not identified Histologic type of invasive carcinoma ? invasive ductal carcinoma (no special type). Histologic Grade (Raymon grade): Glandular/tubular differentiation - score 3 Nuclear pleomorphism - score 3 Mitotic count ? score 2 Overall grade - 3 (score of 8) Margins - Margins uninvolved by invasive carcinoma. The invasive carcinoma is 1.5 cm away from the closest posterior margin. Treatment effect: Response to presurgical (neoadjuvant) therapy - no known presurgical therapy. Lymph-Vascular invasion ? not identified Dermal lymph-vascular invasion - not identified Lymph nodes: Number of sentinel lymph nodes examined - 3 Total number of lymph nodes examined (sentinel and nonsentinel) - 3 Number of lymph nodes with macrometastases - 3 Number of lymph nodes with micrometastases and isolated tumor cells - 0 Size of largest metastatic deposit ? 3.6 cm Extranodal extension ? present, focal (0.4 cm in greatest dimension) Distance metastasis ? not applicable Additional pathologic findings ? fibrocystic changes and intraductal hyperplasia without atypia. Ancillary studies - previously performed on section of tumor ([id number] / [id number]). ER ? positive (>95%, strong) RI ? positive (variable, 0-11%, weak) Her2 bhavani ? negative (1+) Microcalcifications ? not identified Clinical history - Please make reference to previous specimen ([id number]) left breast, ultrasound-guided needle core biopsy with diagnosis of invasive ductal carcinoma. ? PATHOLOGIC STAGE: pT2 pN1a(sn) Mx The above summary is in compliance with [employer] [place] [employer] (CAP) Cancer Protocols Checklist and [place] Joint Committee on Cancer (AJCC), Staging Manual, 8th Ed. ? COMMENT A. The lymph nodes are almost completely involved by the metastatic tumor. The largest lymph node measures 3.6 cm in greatest dimension. The largest focus of metastasis measures 3.6 cm in greatest dimension. Focal extranodal distention is noted which measures 0.4 cm in greatest dimension. ? Underwent completion axillary dissection 05/27/2017. ? Pathology: MICROSCOPIC DIAGNOSIS A. Left axillary contents, regional lymphadenectomy: Isolated metastatic tumor cells in one of seven lymph nodes. B. ?Dog ear,? excision: Skin with attached fibrofatty tissue with reactive and reparative change and suture granulomas. No evidence of malignancy. ? COMMENT Case has been reviewed in consultation with Dr. Skinner who concurs with the above diagnosis. ? MICROSCOPIC DESCRIPTION Slides are reviewed. A. The largest lymph node contains benign histiocytic proliferation, fibrosis and minimal chronic inflammation consistent with previous biopsy and resection ([id number]). ? Immunohistochemistry ([id number]) supports the presence of isolated metastatic tumor cells in one out of seven lymph nodes. ? Previous therapy: 1) Adjuvant AC followed by Taxol. ? Presents for ongoing oncologic management. ? Interim history: patient had her port removed last month and started adjuvant radiation therapy. Starting yesterday she has fever of 101 and chills. She continues to have a temperature this morning 102. There is an area of breakdown in the skin on the right mastectomy site. She noticed significant swelling and redness on her chest and upper abdomen consistent with cellulitis. It does not itch except for the area of radiation. Patient has no cough, shortness of breath no urinary symptom. She denied nausea or vomiting. ? MEDICATIONS: Current Outpatient Prescriptions: LORazepam (ATIVAN) 1 mg tablet Take 1 tablet by mouth every 8 hours as needed for up to 30 days. furosemide (LASIX) 20 mg tablet Take 1 tablet by mouth once daily. potassium chloride ER (K-DUR, KLOR-CON) 20 mEq tablet Take 1 tablet by mouth once daily. diphenhydrAMINE-Acetaminophen (TYLENOL PM EXTRA STRENGTH) 25-500 mg tab Take 1 tablet by mouth at bedtime as needed. ondansetron (ZOFRAN) 8 mg tablet Take 1 tablet by mouth every 8 hours as needed for Nausea/Vomiting. lidocaine-prilocaine (EMLA) cream Apply 1 application to affected area as needed. melatonin 3 mg tablet Take 6 mg by mouth daily at bedtime. OTC NUTRITIONAL SUPPLEMENT day ibuprofen (MOTRIN) 200 mg tablet Take 600 mg by mouth twice daily. metFORMIN ER (GLUCOPHAGE XR) 500 mg 24 hr tablet Take 500 mg by mouth twice daily. SUMAtriptan (IMITREX) 100 mg tablet Take 100 mg by mouth as needed. Omeprazole (PRILOSEC) 40 mg capsule Take 40 mg by mouth once daily. ticwrpq-dcmpwgfl-psaqiumilj capsule Take 1 capsule by mouth once daily as needed. PRN traMADol 50 mg tablet Take 50 mg by mouth three times daily as needed. fluoxetine 20 mg ORAL capsule Take 20 mg by mouth once daily. MULTIVITAMIN TAB Take one(1) tablet daily. CALCIUM + D 600 MG-200 UNIT TAB Take one(1) tablet twice daily. TYLENOL EXTRA STRENGTH 500 MG TAB Take two(2) tablets every six(6) hours as needed for pain. amoxicillin-clavulanic acid (AUGMENTIN) 875-125 mg per tablet Take 1 tablet by mouth twice daily for 10 days. FOR 10 DAYS. No current facility-administered medications for this visit. . ALLERGIES: ALLERGIES Allergen Reactions - Iv Dye [Iodinated C* Hives - Shellfish Hives - Victoza [Liraglutid* Intolerance . PAST MEDICAL HISTORY: PAST MEDICAL HISTORY Diagnosis Date - Breast cancer metastasized to axillary lymph node, left (HCC) 03/22/2017 - Diverticulosis of colon with hemorrhage - Personal history of colonic polyps - PMH - PAST MEDICAL HISTORY OF SPASTIC COLON - Psoriatic arthritis (HCC) - Tension headache - Type II or unspecified type diabetes mellitus without mention of complication, not stated as uncontrolled . PAST SURGICAL HISTORY: PAST SURGICAL HISTORY Procedure Laterality Date - COLONOSCOP W/ OR W/O BRS SPEC 2000 Colonoscopy - COLONOSCOP W/ OR W/O BRSH SPEC 12/09/2012 Colonoscopy - EGD W/O OR W/BRUSH/WASH 12/09/2012 EGD - EXCIS BREAST LESION Left breast - HYSTEROSCOPY WBX WWO D AND C ANDOR POLYPECTOMY 2011 PMB- polyps - LIGATE FALLOPIAN TUBE - MASTECTOMY, RADICAL Bilateral 2017 - PAST SURGICAL HISTORY OF cyst removed from back - S PORTACATH [id number] 05/08/2017 right sided portacath [place] . FAMILY HISTORY: FAMILY HISTORY Problem Relation Age of Onset - Osteoporosis Mother - Arthritis Mother - GI Mother IBS - Diabetes Father - Heart Father - Lipids Father - Breast Cancer Maternal Grandmother - Prostate Cancer Maternal Grandfather - Osteoporosis Sister - Hypertension Sister . SOCIAL HISTORY:Social History Marital status: Spouse name: Niles Years of education: 16 Number of children: 0 Occupational History Occupation Employer Comment [employer] Social History Main Topics Smoking status: Passive Smoke Exposure - Never Smoker Packs/day: 0.00 Years: 0.00 Types: Cigarettes Smokeless tobacco: Never Used Comment: smokes socially Alcohol use: No Drug use: No Sexual activity: Not Currently Partners with: Male control/protection: Tubal Ligation .REVIEW OF SYSTEMS Constitutional: + fever and chills, no night sweats. Neuro: Denies OWENS, vertigo, dizziness and imbalance. HEENT: No recent change in voice, vision or hearing. Resp: Denies cough, wheeze and hemoptysis. CVS: See above. : Denies dysuria or gross hematuria. No symptoms of bladder outlet obstruction. Endo: Denies hot flashes. Denies polyuria and polydipsia. Denies heat and cold intolerance. Musculoskeletal: Off [place]. Heme: Denies unusual bleeding and unexplained bruising. Psych: Normal mood. PHYSICAL EXAMINATION: 62-year-old female in no acute distress. BP 116/69 Pulse 90 Temp (Src) 100.2 (Oral) Wt 186 lb 8 oz (84.6kg) LMP 02/04/2010 HEENT: Head is normocephalic, atraumatic. Sclerae white, conjunctivae pink. PEERL. EOMs are intact. Oropharynx is benign. LYMPHATICS: There is no palpable adenopathy in the neck, supraclavicular region, axillae, or groin. BREASTS: bilateral mastectomy sites showed radiation changes. Skin breakdown in the right mastectomy area. Wound culture obtained. erythema and warmth to touch area on upper abdomen and chest LUNGS: Lungs are clear to percussion and auscultation. HEART: Heart is normal without murmurs, gallops, or rubs. ABDOMEN: Soft and nontender without organomegaly. No masses can be palpated. EXTREMITIES: Are without edema. NEUROLOGIC: Exam is physiologic LABORATORY DATA: Component Latest Ref Rng AND Units 12/21/2017 WBC, [place] 3.70 - 11.00 k/uL 10.70 RBC, Phyllis 3.90 - 5.20 m/uL 4.19 Hemoglobin, Phyllis 11.5 - 15.5 g/dL 11.8 Hematocrit, [place] 36.0 - 46.0 % 36.6 MCV, [place] 80.0 - 100.0 fL 87.4 MCH, Phyllis 26.0 - 34.0 pg 28.2 MCHC, [place] 30.5 - 36.0 g/dL 32.2 RDW, Phyllis 11.5 - 15.0 % 14.6 Platelet Cnt, Phyllis 150 - 400 k/uL 157 MPV, [place] 9.0 - 12.7 fL 8.8 (L) Absol Gran Count 1.45 - 7.50 k/uL 10.06 (H) Component Latest Ref Rng AND Units 12/21/2017 Protein, Total 6.3 - 8.0 g/dL 6.4 Albumin 3.9 - 4.9 g/dL 4.1 Calcium 8.5 - 10.2 mg/dL 9.4 Bilirubin, Total 0.2 - 1.3 mg/dL 0.5 Alkaline Phosphatase 34 - 123 U/L 78 AST 13 - 35 U/L 18 Glucose 74 - 99 mg/dL 195 (H) BUN 7 - 21 mg/dL 8 Creatinine 0.58 - 0.96 mg/dL 0.65 Sodium 136 - 144 mmol/L 135 (L) Potassium 3.7 - 5.1 mmol/L 3.6 (L) Chloride 97 - 105 mmol/L 100 CO2 22 - 30 mmol/L 26 Anion Gap mmol/L 9 ALT 7 - 38 U/L 15 eGFR- >60 eGFR-All Other Races . >60 Component Latest Ref Rng AND Units 12/21/2017 12/21/2017 9:50 AM 9:56 AM Specimen Request The blood culture bottles are underfilled. Adding volume lower or higher than the . . . Culture No growth <24 hrs No growth <24 hrs ASSESSMENT: 62-year-old female with history of diabetes mellitus status post bilateral mastectomy for breast cancer currently receiving radiation therapy. Patient had fever and chills along with skin breakdown consistent with cellulitis of the chest wall and upper abdomen. PLAN: - Blood cultures x 2 AND wound culture obtained today. - Rocephin 2 gram IV given today AND start Augmentin 875mg twice daily x 10 days - Follow up next Sunday. If her symptom does not improve, or she still have persistent fever, she should call this weekend for possible hospital admission for treatment of cellulitis. I spent 25 minutes in the visit, with more than 50% of the total hiie-hd-sylw time of the visit in counseling / coordination of care. Katie Aleman MD. ELECTRONICALLY SIGNED Cc: Dr. Ruth Clark Referring Provider: SELF [[id number]] Allergies As of Date: 12/21/2017 Noted Allergy Reaction IV DYE (IODINATED CONTRAST- ORAL *05/21/2006 4 - Hives SHELLFISH 05/21/2006 4 - Hives VICTOZA (LIRAGLUTIDE) 03/30/2017 5 - Intolerance Date Reviewed: 12/21/2017 Reviewed by: Loli Addison - Fully Assessed Reason for Visit: Fever [47] Reason For Visit History Recorded Primary Visit Diagnosis:Fever, unspecified fever cause [R50.9] Other Visit Diagnoses:Malignant neoplasm of upper-outer quadrant of left breast in female, estrogen receptor positive (HCC) [C50.412, Z17.0] Metastatic cancer to axillary lymph nodes (HCC) [C77.3] Cellulitis of abdominal wall [L03.311] Order(s):WOUND CULTURE AND GRAM STAIN [SQWCUL] Order #: [id number]. #:[id number] amoxicillin-clavulanic acid (AUGMENTIN) 875-125 mg per tabletTake 1 tablet by mouth twice daily for 10 days. FOR 10 DAYS.Disp: 20 tabletRfl: 0 Level of Service: EST PATIENT VISIT LEVEL 4 [[id number]] Disposition: Return in about 3 days (around 12/24/2017). Follow-up and Disposition History Recorded Prescriptions as of 12/21/2017 Sig: LORAZEPAM 1 MG TABLET Take 1 tablet by mouth every * FUROSEMIDE 20 MG TABLET Take 1 tablet by mouth once d* POTASSIUM CHLORIDE ER 20 MEQ * Take 1 tablet by mouth once d* DIPHENHYDRAMINE 25 MG-ACETAMI* Take 1 tablet by mouth at bed* ONDANSETRON HCL 8 MG TABLET Take 1 tablet by mouth every * LIDOCAINE-PRILOCAINE 2.5 %-2.* Apply 1 application to affect* MELATONIN 3 MG TABLET Take 6 mg by mouth daily at b* OTC NUTRITIONAL SUPPLEMENT day IBUPROFEN 200 MG TABLET Take 600 mg by mouth twice da* METFORMIN ER 500 MG TABLET,EX* Take 500 mg by mouth twice da* SUMATRIPTAN 100 MG TABLET Take 100 mg by mouth as neede* OMEPRAZOLE 40 MG CAPSULE,CARLYN* Take 40 mg by mouth once adia* [id number] 5* Take 1 capsule by mouth once * TRAMADOL 50 MG TABLET Take 50 mg by mouth three lizeth* * FLUOXETINE 20 MG CAPSULE Take 20 mg by mouth once adia* * MULTIVITAMIN TABLET Take one(1) tablet daily. * CALCIUM + D 600 MG (1,500 MG)* Take one(1) tablet twice adia* * TYLENOL EXTRA STRENGTH 500 MG* Take two(2) tablets every six* AMOXICILLIN 875 MG-POTASSIUM * Take 1 tablet by mouth twice * Problem List As Of Date 12/21/2017 Noted Resolved Postmenopausal bleeding [N95.0] INVALID FOR* Ovarian cyst [N83.209] INVALID FOR* Malignant neoplasm of upper-outer quadrant of l*INVALID FOR* 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 Encounter Status:Closed by KATIE ALEMAN MD on 12/22/17 Observed: 12/21/2017 Status: F Source: [place] BLOOD CULTURE 9:56 AM [facility] REPOSITORY Sp. Request/Comment: - The blood culture bottles are underfilled. Adding volume lower or higher than the 8 to 10 mL per bottle, which is the manufacturers recommended volume, may adversely affect the re covery and/or detection of organisms. 6.3CC Culture Result - No growth 5 days Performed By: #### BLCUL #### [facility] [place] [facility] [address] [place], [place] [address] PHYLLIS ABS GR + CBC Collected: 12/21/2017 Status: F Source: [place] 9:50 AM [facility] REPOSITORY TYPE CODE TESTS RESULT OUT OF REFERENCE UNITS RANGE LAB WWBC 3.70-11.00 k/uL Phyllis WBC 10.70 LAB WRBC 3.90-5.20 m/uL [place] RBC 4.19 LAB WHGB 11.5-15.5 g/dL Phyllis Hemoglobin 11.8 LAB WHCT 36.0-46.0 % [place] Hematocrit 36.6 LAB WMCV 80.0-100.0 fL [place] MCV 87.4 LAB WMCH 26.0-34.0 pg [place] MCH 28.2 LAB WMCHC 30.5-36.0 g/dL [place] MCHC 32.2 LAB WRDW 11.5-15.0 % Phyllis RDW 14.6 LAB WPLT 150-400 k/uL [place] Platelet Cnt 157 LAB WMPV 9.0-12.7 fL Low Phyllis MPV 8.8 Result Comment: Test performed at: [facility], [address] [place] [address] Rd[address] [place] [address]. LAB ABGRAN 1.45-7.50 k/uL High Absol 10.06 Gran Count COMP METABOLIC PANEL Collected: 12/21/2017 Status: F Source: [place] 9:50 AM [facility] REPOSITORY TYPE CODE TESTS RESULT OUT OF REFERENCE UNITS RANGE LAB TP 6.3-8.0 g/dL Protein, Total 6.4 LAB ALB 3.9-4.9 g/dL Albumin 4.1 LAB CA 8.5-10.2 mg/dL Calcium, Total 9.4 LAB TBIL 0.2-1.3 mg/dL Bilirubin, Total 0.5 LAB ALKP 34-123 U/L Alkaline Phosphatase 78 LAB AST 13-35 U/L AST 18 LAB GLU 74-99 mg/dL Glucose High 195 LAB BUN 7-21 mg/dL BUN 8 LAB CRET 0.58-0.96 mg/dL Creatinine 0.65 LAB NA 136-144 mmol/L Sodium Low 135 LAB K 3.7-5.1 mmol/L Potassium Low 3.6 LAB CL 97-105 mmol/L Chloride 100 LAB CO2 22-30 mmol/L CO2 26 LAB AGAP mmol/L Anion Gap 9 LAB ALT 7-38 U/L ALT 15 LAB GFRAA eGFR- >60 Amer. LAB GFRNAA . eGFR-All Other Races >60 Result Comment: eGFR (Estimated GFR) Units of measure: mL/min/1.73 meters squared eGFR is derived from the reexpressed MDRD Study equation using the following parameters: serum creatinine, age, gender and race. The creatinine assay has been calibrated to be traceable to IDMS. An eGFR <60 mL/min/1.73m2 for >3 months is consistent with chronic kidney disease. Refer to KDOQI guidelines for clinical interpretation. In patients with unstable renal function, e.g. those with acute kidney injury, the eGFR may not accurately reflect actual GFR. Observed: 12/21/2017 Status: F Source: [place] BLOOD CULTURE 9:50 AM [facility] REPOSITORY Culture Result - No growth 5 days Performed By: #### BLCUL #### [facility] [place] [facility] [address] [place], [place] [address] PROGRESS Observed: 12/18/2017 Status: COMPLETED Source: [place] 10:24 AM [facility] REPOSITORY HNO ID: [id number] Author: Bonita Zepeda Service: (none) Author Type: Physician Type: Progress Notes Filed: 12/18/2017 10:32 AM Note Text: Radiation Oncology - On Treatment Review (OTR) Note PATIENT NAME: Jessica Rodriguez PATIENT DIAGNOSIS: Stage III, T2N2, invasive ductal carcinoma of the left breast s/p left mastectomy and sentinel node biopsy and axillary node dissection. It's ER positive (>95%, strong), RI positive (variable, weak, 0-11%), and Her2/bhavani 1+. s/p adjuvant chemotherapy. COURSE: adjuvant AREA TREATED: Left breast/SC/axilla CURRENT DOSE: 3800 cGy in 19 fx PLANNED DOSE: 6000 cGy in 30 fx SUBJECTIVE: She has mild fatigue. She has mild pruritus. EXAM: KPS: 90 BP 129/58 Pulse 69 Temp 36.1 ?C (96.9 ?F) (Temporal Artery) Resp 20 LMP 02/04/2010 SpO2 96% General Appearance: Alert and oriented. No acute distress. Mild erythema of the left chest wall. IMAGING/LAB RESULTS: None. Treatment chart checked: Yes Patient treatment site reviewed and verified:Yes Port films reviewed and current:Yes Medications started: OTC Hydrocortisone cream bid as needed. ASSESSMENT/PLAN: Clinically stable. Toxicity within expected parameters. Continue radiation treatment as planned. Bonita Zepeda MD CNOV Observed: 12/18/2017 Status: COMPLETED Source: [place] 10:15 AM [facility] REPOSITORY Office Visit (RADTWS) MICHAELJESSICA ([id number]) 1955 F Date Time Provider Department 12/18/17 10:15 AM BONITA ZEPEDA During your visit today, we recorded the following information about you: Temperature Pulse Respiration Blood pressure 96.9 degrees 69/minute 20/minute 129/58 Nikky Briones, RN, RN 12/18/2017 10:22 AM Signed Radiation Therapy - Nursing Note (OTV) PATIENT NAME: Jessica Rodriguez PATIENT December 18, 2017 [facility] FACILITY/LOCATION: [place] NURSING NOTE TYPE: BREAST Subjective Data No c/o Additional Data Do you want to see a Cable Driller? No Status: Post-menopausal. Stress Scale: On a scale of 0 to 10, what number best describes how much distress you have experienced in the past week?(0 being no distress and 10 being extreme distress) 2 Social work notified: no Nursing Assessment Fatigue: moderate; causing difficulty performing some activities Appetite: good Nutritional Intake: Regular oral intake. Weight Gain/Loss: No Ambulatory weight history: Last 6 Encounter Wt Readings: Date: Wt: 11/28/2017 84.8 kg (187 lb) 10/30/2017 85 kg (187 lb 8 oz) 10/24/2017 87.8 kg (193 lb 8 oz) 10/18/2017 87.1 kg (192 lb) 10/11/2017 84.1 kg (185 lb 8 oz) 10/05/2017 87.5 kg (193 lb) Nausea:None Vomiting: None Bowel Function: normal bowel movements Erythema/Hyperpigmentation:mild Desquamation:none Rash:none Skin Care: Aquaphor Skin Sensation: mild itching Focused Assessment BREAST: Lymphedema Assessment: Is the patient noting any swelling? Yes, note duration - slight swelling. SIGNED by: MONET Clemens MD 12/18/2017 10:32 AM Signed Radiation Oncology - On Treatment Review (OTR) Note PATIENT NAME: Jessica Rodriguez PATIENT DIAGNOSIS: Stage III, T2N2, invasive ductal carcinoma of the left breast s/p left mastectomy and sentinel node biopsy and axillary node dissection. It's ER positive (>95%, strong), RI positive (variable, weak, 0-11%), and Her2/bhavani 1+. s/p adjuvant chemotherapy. COURSE: adjuvant AREA TREATED: Left breast/SC/axilla CURRENT DOSE: 3800 cGy in 19 fx PLANNED DOSE: 6000 cGy in 30 fx SUBJECTIVE: She has mild fatigue. She has mild pruritus. EXAM: KPS: 90 BP 129/58 Pulse 69 Temp 36.1 ?C (96.9 ?F) (Temporal Artery) Resp 20 LMP 02/04/2010 SpO2 96% General Appearance: Alert and oriented. No acute distress. Mild erythema of the left chest wall. IMAGING/LAB RESULTS: None. Treatment chart checked: Yes Patient treatment site reviewed and verified:Yes Port films reviewed and current:Yes Medications started: OTC Hydrocortisone cream bid as needed. ASSESSMENT/PLAN: Clinically stable. Toxicity within expected parameters. Continue radiation treatment as planned. Bonita Zepeda MD Allergies As of Date: 12/18/2017 Noted Allergy Reaction IV DYE (IODINATED CONTRAST- ORAL *05/21/2006 4 - Hives SHELLFISH 05/21/2006 4 - Hives VICTOZA (LIRAGLUTIDE) 03/30/2017 5 - Intolerance Date Reviewed: 12/18/2017 Reviewed by: Nikky (Monet) MONET Briones - Fully Assessed Reason for Visit: Radiotherapy On-treatment Visit [1722] Primary Visit Diagnosis:Malignant neoplasm of upper-outer quadrant of left breast in female, estrogen receptor positive (HCC) [C50.412, Z17.0] Order(s):CONSULT TO PHYSICAL THERAPY [9019] Order #: [id number]: 1 Prescriptions as of 12/18/2017 Sig: LORAZEPAM 1 MG TABLET Take 1 tablet by mouth every * FUROSEMIDE 20 MG TABLET Take 1 tablet by mouth once d* POTASSIUM CHLORIDE ER 20 MEQ * Take 1 tablet by mouth once d* DIPHENHYDRAMINE 25 MG-ACETAMI* Take 1 tablet by mouth at bed* ONDANSETRON HCL 8 MG TABLET Take 1 tablet by mouth every * LIDOCAINE-PRILOCAINE 2.5 %-2.* Apply 1 application to affect* MELATONIN 3 MG TABLET Take 6 mg by mouth daily at b* OTC NUTRITIONAL SUPPLEMENT day IBUPROFEN 200 MG TABLET Take 600 mg by mouth twice da* METFORMIN ER 500 MG TABLET,EX* Take 500 mg by mouth twice da* SUMATRIPTAN 100 MG TABLET Take 100 mg by mouth as neede* OMEPRAZOLE 40 MG CAPSULE,CARLYN* Take 40 mg by mouth once adia* [id number] 5* Take 1 capsule by mouth once * TRAMADOL 50 MG TABLET Take 50 mg by mouth three lizeth* * FLUOXETINE 20 MG CAPSULE Take 20 mg by mouth once adia* * MULTIVITAMIN TABLET Take one(1) tablet daily. * CALCIUM + D 600 MG (1,500 MG)* Take one(1) tablet twice adia* * TYLENOL EXTRA STRENGTH 500 MG* Take two(2) tablets every six* ASCORBIC ACID (VITAMIN C) 500* Take 500 mg by mouth as neede* Problem List As Of Date 12/18/2017 Noted Resolved Postmenopausal bleeding [N95.0] INVALID FOR* Ovarian cyst [N83.209] INVALID FOR* Malignant neoplasm of upper-outer quadrant of l*INVALID FOR* 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 Visit Notes: >> Nikky (Monet) MONET Briones Dec 18, 2017 10:19 AM Status: Signed Radiation Therapy - Nursing Note (OTV) PATIENT NAME: Jessica Rodriguez PATIENT December 18, 2017 [facility] FACILITY/LOCATION: [place] NURSING NOTE TYPE: BREAST Subjective Data No c/o Additional Data Do you want to see a Cable Driller? No Status: Post-menopausal. Stress Scale: On a scale of 0 to 10, what number best describes how much distress you have experienced in the past week?(0 being no distress and 10 being extreme distress) 2 Social work notified: no Nursing Assessment Fatigue: moderate; causing difficulty performing some activities Appetite: good Nutritional Intake: Regular oral intake. Weight Gain/Loss: No Ambulatory weight history: Last 6 Encounter Wt Readings: Date: Wt: 11/28/2017 84.8 kg (187 lb) 10/30/2017 85 kg (187 lb 8 oz) 10/24/2017 87.8 kg (193 lb 8 oz) 10/18/2017 87.1 kg (192 lb) 10/11/2017 84.1 kg (185 lb 8 oz) 10/05/2017 87.5 kg (193 lb) Nausea:None Vomiting: None Bowel Function: normal bowel movements Erythema/Hyperpigmentation:mild Desquamation:none Rash:none Skin Care: Aquaphor Skin Sensation: mild itching Focused Assessment BREAST: Lymphedema Assessment: Is the patient noting any swelling? Yes, note duration - slight swelling. SIGNED by: Nikky Briones RN Encounter Status:Closed by BONITA ZEPEDA MD on 12/18/17 PROGRESS Observed: 12/11/2017 Status: COMPLETED Source: [place] 10:25 AM [facility] REPOSITORY HNO ID: [id number] Author: Bonita Zepeda Service: (none) Author Type: Physician Type: Progress Notes Filed: 12/11/2017 10:28 AM Note Text: Radiation Oncology - On Treatment Review (OTR) Note PATIENT NAME: Jessica Rodriguez PATIENT DIAGNOSIS: Stage III, T2N2, invasive ductal carcinoma of the left breast s/p left mastectomy and sentinel node biopsy and axillary node dissection. It's ER positive (>95%, strong), RI positive (variable, weak, 0-11%), and Her2/bhavani 1+. s/p adjuvant chemotherapy. COURSE: adjuvant AREA TREATED: Left breast/SC/axilla CURRENT DOSE: 2800 cGy in 14 fx PLANNED DOSE: 6000 cGy in 30 fx SUBJECTIVE: She is doing well without any specific new complaints. She has mild fatigue. EXAM: KPS: 100 BP 129/60 (BP Site: Right Arm, BP Position: Sitting, BP Cuff Size: Large Adult) Pulse 62 Temp (!) 35.6 ?C (96 ?F) (Temporal Artery) Resp 17 LMP 02/04/2010 SpO2 97% General Appearance: Alert and oriented. No acute distress. Slight erythema of the left chest wall. IMAGING/LAB RESULTS: None. Treatment chart checked: Yes Patient treatment site reviewed and verified:Yes Port films reviewed and current:Yes Medications started: None ASSESSMENT/PLAN: Clinically stable. Toxicity within expected parameters. Continue radiation treatment as planned. Bonita Zepeda MD CNOV Observed: 12/11/2017 Status: COMPLETED Source: [place] 10:15 AM [facility] REPOSITORY Office Visit (RADTWS) MICHAELJESSICA ([id number]) 1955 F Date Time Provider Department 12/11/17 10:15 AM BONITA ZEPEDA During your visit today, we recorded the following information about you: Temperature Pulse Respiration Blood pressure 96 degrees 62/minute 17/minute 129/60 Julianne Hernandez, RN, RN 12/11/2017 10:21 AM Signed Radiation Therapy - Nursing Note (OTV) PATIENT NAME: Jessica Rodriguez PATIENT December 11, 2017 [facility] FACILITY/LOCATION: [place] NURSING NOTE TYPE: BREAST Subjective Data No c/o. Additional Data Do you want to see a Cable Driller? No Status: Post-menopausal. Stress Scale: On a scale of 0 to 10, what number best describes how much distress you have experienced in the past week?(0 being no distress and 10 being extreme distress) 1 Social work notified: Pt denied need to see social professionals at this time. Nursing Assessment Fatigue: increased fatigue over baseline but not altering normal activities Appetite: good Nutritional Intake: Regular oral intake. Weight Gain/Loss: No Ambulatory weight history: Last 6 Encounter Wt Readings: Date: Wt: 11/28/2017 84.8 kg (187 lb) 10/30/2017 85 kg (187 lb 8 oz) 10/24/2017 87.8 kg (193 lb 8 oz) 10/18/2017 87.1 kg (192 lb) 10/11/2017 84.1 kg (185 lb 8 oz) 10/05/2017 87.5 kg (193 lb) Nausea:None Vomiting: None Bowel Function: normal bowel movements Erythema/Hyperpigmentation:none Desquamation:none Rash:none Skin Care: Aquaphor Skin Sensation: mild itching and none burning Focused Assessment BREAST: Lymphedema Assessment: Is the patient noting any swelling? No. SIGNED by: MONET Marina MD 12/11/2017 10:28 AM Signed Radiation Oncology - On Treatment Review (OTR) Note PATIENT NAME: Jessica Rodriguez PATIENT DIAGNOSIS: Stage III, T2N2, invasive ductal carcinoma of the left breast s/p left mastectomy and sentinel node biopsy and axillary node dissection. It's ER positive (>95%, strong), RI positive (variable, weak, 0-11%), and Her2/bhavani 1+. s/p adjuvant chemotherapy. COURSE: adjuvant AREA TREATED: Left breast/SC/axilla CURRENT DOSE: 2800 cGy in 14 fx PLANNED DOSE: 6000 cGy in 30 fx SUBJECTIVE: She is doing well without any specific new complaints. She has mild fatigue. EXAM: KPS: 100 BP 129/60 (BP Site: Right Arm, BP Position: Sitting, BP Cuff Size: Large Adult) Pulse 62 Temp (!) 35.6 ?C (96 ?F) (Temporal Artery) Resp 17 LMP 02/04/2010 SpO2 97% General Appearance: Alert and oriented. No acute distress. Slight erythema of the left chest wall. IMAGING/LAB RESULTS: None. Treatment chart checked: Yes Patient treatment site reviewed and verified:Yes Port films reviewed and current:Yes Medications started: None ASSESSMENT/PLAN: Clinically stable. Toxicity within expected parameters. Continue radiation treatment as planned. Bonita Zepeda MD Allergies As of Date: 12/11/2017 Noted Allergy Reaction IV DYE (IODINATED CONTRAST- ORAL *05/21/2006 4 - Hives SHELLFISH 05/21/2006 4 - Hives VICTOZA (LIRAGLUTIDE) 03/30/2017 5 - Intolerance Date Reviewed: 12/11/2017 Reviewed by: Julianne (Monet) Anmol, RN - Fully Assessed Reason for Visit: OTV [Other] Primary Visit Diagnosis:Malignant neoplasm of upper-outer quadrant of left breast in female, estrogen receptor positive (HCC) [C50.412, Z17.0] Prescriptions as of 12/11/2017 Sig: LORAZEPAM 1 MG TABLET Take 1 tablet by mouth every * FUROSEMIDE 20 MG TABLET Take 1 tablet by mouth once d* POTASSIUM CHLORIDE ER 20 MEQ * Take 1 tablet by mouth once d* DIPHENHYDRAMINE 25 MG-ACETAMI* Take 1 tablet by mouth at bed* ONDANSETRON HCL 8 MG TABLET Take 1 tablet by mouth every * LIDOCAINE-PRILOCAINE 2.5 %-2.* Apply 1 application to affect* MELATONIN 3 MG TABLET Take 6 mg by mouth daily at b* OTC NUTRITIONAL SUPPLEMENT day IBUPROFEN 200 MG TABLET Take 600 mg by mouth twice da* METFORMIN ER 500 MG TABLET,EX* Take 500 mg by mouth twice da* SUMATRIPTAN 100 MG TABLET Take 100 mg by mouth as neede* OMEPRAZOLE 40 MG CAPSULE,CARLYN* Take 40 mg by mouth once adia* [id number] 5* Take 1 capsule by mouth once * TRAMADOL 50 MG TABLET Take 50 mg by mouth three lizeth* * FLUOXETINE 20 MG CAPSULE Take 20 mg by mouth once adia* * MULTIVITAMIN TABLET Take one(1) tablet daily. * CALCIUM + D 600 MG (1,500 MG)* Take one(1) tablet twice adia* * TYLENOL EXTRA STRENGTH 500 MG* Take two(2) tablets every six* ASCORBIC ACID (VITAMIN C) 500* Take 500 mg by mouth as neede* Problem List As Of Date 12/11/2017 Noted Resolved Postmenopausal bleeding [N95.0] INVALID FOR* Ovarian cyst [N83.209] INVALID FOR* Malignant neoplasm of upper-outer quadrant of l*INVALID FOR* 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 Visit Notes: >> Julianne (Monet) MONET Hernandez sandy Dec 11, 2017 10:18 AM Status: Signed Radiation Therapy - Nursing Note (OTV) PATIENT NAME: Jessica Rodriguez PATIENT December 11, 2017 [facility] FACILITY/LOCATION: [place] NURSING NOTE TYPE: BREAST Subjective Data No c/o. Additional Data Do you want to see a Cable Driller? No Status: Post-menopausal. Stress Scale: On a scale of 0 to 10, what number best describes how much distress you have experienced in the past week?(0 being no distress and 10 being extreme distress) 1 Social work notified: Pt denied need to see social professionals at this time. Nursing Assessment Fatigue: increased fatigue over baseline but not altering normal activities Appetite: good Nutritional Intake: Regular oral intake. Weight Gain/Loss: No Ambulatory weight history: Last 6 Encounter Wt Readings: Date: Wt: 11/28/2017 84.8 kg (187 lb) 10/30/2017 85 kg (187 lb 8 oz) 10/24/2017 87.8 kg (193 lb 8 oz) 10/18/2017 87.1 kg (192 lb) 10/11/2017 84.1 kg (185 lb 8 oz) 10/05/2017 87.5 kg (193 lb) Nausea:None Vomiting: None Bowel Function: normal bowel movements Erythema/Hyperpigmentation:none Desquamation:none Rash:none Skin Care: Aquaphor Skin Sensation: mild itching and none burning Focused Assessment BREAST: Lymphedema Assessment: Is the patient noting any swelling? No. SIGNED by: Julianne Hernandez RN Encounter Status:Closed by BONITA ZEPEDA MD on 12/11/17 PROGRESS Observed: 12/04/2017 Status: COMPLETED Source: [place] 10:16 AM [facility] REPOSITORY HNO ID: [id number] Author: Bonita Zepeda Service: (none) Author Type: Physician Type: Progress Notes Filed: 12/04/2017 10:17 AM Note Text: Radiation Oncology - On Treatment Review (OTR) Note PATIENT NAME: Jessica Rodriguez PATIENT DIAGNOSIS: Stage III, T2N2, invasive ductal carcinoma of the left breast s/p left mastectomy and sentinel node biopsy and axillary node dissection. It's ER positive (>95%, strong), RI positive (variable, weak, 0-11%), and Her2/bhavani 1+. s/p adjuvant chemotherapy. COURSE: adjuvant AREA TREATED: Left breast/SC/axilla CURRENT DOSE: 1800 cGy in 9 fx PLANNED DOSE: 6000 cGy in 30 fx SUBJECTIVE: She is doing well without any specific new complaints. EXAM: KPS: 100 BP 127/59 Pulse 71 Temp 36.9 ?C (98.4 ?F) (Oral) Resp 20 LMP 02/04/2010 SpO2 98% General Appearance: Alert and oriented. No acute distress. Slight erythema of the left chest wall. IMAGING/LAB RESULTS: None. Treatment chart checked: Yes Patient treatment site reviewed and verified:Yes Port films reviewed and current:Yes Medications started: None ASSESSMENT/PLAN: Clinically stable. Toxicity within expected parameters. Continue radiation treatment as planned. Bonita Zepeda MD CNOV Observed: 12/04/2017 Status: COMPLETED Source: [place] 12:00 AM [facility] REPOSITORY Office Visit (RADTWS) MICHAELJESSICA ([id number]) 1955 F Date Time Provider Department 12/04/17 BONITA ZEPEDA During your visit today, we recorded the following information about you: Temperature Pulse Respiration Blood pressure 98.4 degrees 71/minute 20/minute 127/59 Nikky Briones, RN, RN 12/04/2017 10:04 AM Signed Radiation Therapy - Nursing Note (OTV) PATIENT NAME: Jessica Rodriguez PATIENT December 04, 2017 [facility] FACILITY/LOCATION: [place] NURSING NOTE TYPE: BREAST Subjective Data No c/o Additional Data Do you want to see a Cable Driller? No Status: Post-menopausal. Stress Scale: On a scale of 0 to 10, what number best describes how much distress you have experienced in the past week?(0 being no distress and 10 being extreme distress) 1 Social work notified: no Nursing Assessment Fatigue: increased fatigue over baseline but not altering normal activities Appetite: good Nutritional Intake: Regular oral intake. Weight Gain/Loss: No Ambulatory weight history: Last 6 Encounter Wt Readings: Date: Wt: 11/28/2017 84.8 kg (187 lb) 10/30/2017 85 kg (187 lb 8 oz) 10/24/2017 87.8 kg (193 lb 8 oz) 10/18/2017 87.1 kg (192 lb) 10/11/2017 84.1 kg (185 lb 8 oz) 10/05/2017 87.5 kg (193 lb) Nausea:None Vomiting: None Bowel Function: normal bowel movements Erythema/Hyperpigmentation:none Desquamation:none Rash:none Skin Care: Aquaphor Skin Sensation: Within Normal Limits Focused Assessment BREAST: Lymphedema Assessment: Is the patient noting any swelling? No. SIGNED by: MONET Clemens MD 12/04/2017 10:17 AM Signed Radiation Oncology - On Treatment Review (OTR) Note PATIENT NAME: Jessica Rodriguez PATIENT DIAGNOSIS: Stage III, T2N2, invasive ductal carcinoma of the left breast s/p left mastectomy and sentinel node biopsy and axillary node dissection. It's ER positive (>95%, strong), RI positive (variable, weak, 0-11%), and Her2/bhavani 1+. s/p adjuvant chemotherapy. COURSE: adjuvant AREA TREATED: Left breast/SC/axilla CURRENT DOSE: 1800 cGy in 9 fx PLANNED DOSE: 6000 cGy in 30 fx SUBJECTIVE: She is doing well without any specific new complaints. EXAM: KPS: 100 BP 127/59 Pulse 71 Temp 36.9 ?C (98.4 ?F) (Oral) Resp 20 LMP 02/04/2010 SpO2 98% General Appearance: Alert and oriented. No acute distress. Slight erythema of the left chest wall. IMAGING/LAB RESULTS: None. Treatment chart checked: Yes Patient treatment site reviewed and verified:Yes Port films reviewed and current:Yes Medications started: None ASSESSMENT/PLAN: Clinically stable. Toxicity within expected parameters. Continue radiation treatment as planned. Bonita Zepeda MD Allergies As of Date: 12/04/2017 Noted Allergy Reaction IV DYE (IODINATED CONTRAST- ORAL *05/21/2006 4 - Hives SHELLFISH 05/21/2006 4 - Hives VICTOZA (LIRAGLUTIDE) 03/30/2017 5 - Intolerance Date Reviewed: 12/04/2017 Reviewed by: Nikky (Monet) MONET Briones - Fully Assessed Reason for Visit: Radiotherapy On-treatment Visit [1722] Primary Visit Diagnosis:Malignant neoplasm of upper-outer quadrant of left breast in female, estrogen receptor positive (HCC) [C50.412, Z17.0] Prescriptions as of 12/04/2017 Sig: LORAZEPAM 1 MG TABLET Take 1 tablet by mouth every * FUROSEMIDE 20 MG TABLET Take 1 tablet by mouth once d* POTASSIUM CHLORIDE ER 20 MEQ * Take 1 tablet by mouth once d* DIPHENHYDRAMINE 25 MG-ACETAMI* Take 1 tablet by mouth at bed* ONDANSETRON HCL 8 MG TABLET Take 1 tablet by mouth every * LIDOCAINE-PRILOCAINE 2.5 %-2.* Apply 1 application to affect* MELATONIN 3 MG TABLET Take 6 mg by mouth daily at b* IBUPROFEN 200 MG TABLET Take 600 mg by mouth twice da* METFORMIN ER 500 MG TABLET,EX* Take 500 mg by mouth twice da* SUMATRIPTAN 100 MG TABLET Take 100 mg by mouth as neede* OMEPRAZOLE 40 MG CAPSULE,CARLYN* Take 40 mg by mouth once adia* [id number] 5* Take 1 capsule by mouth once * TRAMADOL 50 MG TABLET Take 50 mg by mouth three lizeth* * FLUOXETINE 20 MG CAPSULE Take 20 mg by mouth once adia* * MULTIVITAMIN TABLET Take one(1) tablet daily. * CALCIUM + D 600 MG (1,500 MG)* Take one(1) tablet twice adia* * TYLENOL EXTRA STRENGTH 500 MG* Take two(2) tablets every six* ASCORBIC ACID (VITAMIN C) 500* Take 500 mg by mouth as neede* OTC NUTRITIONAL SUPPLEMENT calm day Medication notes this encounter ASCORBIC ACID (VITAMIN C) 500 MG TABLET >> Nikky Briones RN, MONET 12/04/2017 10:01 AM >> INKKY BRIONES Dec 04, 2017 10:01 AM On hold during radiation Problem List As Of Date 12/04/2017 Noted Resolved Postmenopausal bleeding [N95.0] INVALID FOR* Ovarian cyst [N83.209] INVALID FOR* Malignant neoplasm of upper-outer quadrant of l*INVALID FOR* 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 Visit Notes: >> Nikky (Monet) MONET Briones Dec 04, 2017 10:03 AM Status: Signed Radiation Therapy - Nursing Note (OTV) PATIENT NAME: Jessica Rodriguez PATIENT December 04, 2017 [facility] FACILITY/LOCATION: [place] NURSING NOTE TYPE: BREAST Subjective Data No c/o Additional Data Do you want to see a Cable Driller? No Status: Post-menopausal. Stress Scale: On a scale of 0 to 10, what number best describes how much distress you have experienced in the past week?(0 being no distress and 10 being extreme distress) 1 Social work notified: no Nursing Assessment Fatigue: increased fatigue over baseline but not altering normal activities Appetite: good Nutritional Intake: Regular oral intake. Weight Gain/Loss: No Ambulatory weight history: Last 6 Encounter Wt Readings: Date: Wt: 11/28/2017 84.8 kg (187 lb) 10/30/2017 85 kg (187 lb 8 oz) 10/24/2017 87.8 kg (193 lb 8 oz) 10/18/2017 87.1 kg (192 lb) 10/11/2017 84.1 kg (185 lb 8 oz) 10/05/2017 87.5 kg (193 lb) Nausea:None Vomiting: None Bowel Function: normal bowel movements Erythema/Hyperpigmentation:none Desquamation:none Rash:none Skin Care: Aquaphor Skin Sensation: Within Normal Limits Focused Assessment BREAST: Lymphedema Assessment: Is the patient noting any swelling? No. SIGNED by: Nikky Briones RN Encounter Status:Closed by BONITA ZEPEDA MD on 12/04/17 PROGRESS Observed: 11/28/2017 Status: COMPLETED Source: [place] 10:41 AM [facility] REPOSITORY O ID: [id number] Author: Harpreet Pantoja Service: (none) Author Type: Physician Type: Progress Notes Filed: 11/28/2017 10:54 AM Note Text: Diagnosis: 1) Breast cancer. HPI: The patient is a 62-year-old female was a past medical history significant for diabetes and psoriatic arthritis. Patient had a screening mammogram performed on 03/22/2017 (only 3 months past annual date of previous study). There was a new mass identified in the left breast as being indeterminate. Further studies were recommended. Diagnostic imaging done on 03/28/2017 demonstrated a 3 cm irregular mass in left breast consistent with carcinoma and was highly suggestive of malignancy. Underwent core needle biopsy on 2017. Pathology: Left breast, ultrasound-guided needle core biopsy: Invasive ductal carcinoma, nuclear grade 3 (1 cm in greatest length). See comment. ER (clone 6F11) >95%, strong RI (clone 16/1E2) variable, 0-11%, weak Her-2Neu (clone CB11) 1+ Underwent left-sided mastectomy with left sentinel axillary lymph node biopsy along with prophylactic right-sided mastectomy on 04/20/2017. Pathology: FROZEN SECTION DIAGNOSIS A. Left axillary sentinel lymph nodes, biopsy: Three out of three lymph nodes positive for macrometastatic carcinoma. MICROSCOPIC DIAGNOSIS A. Left axillary sentinel lymph nodes, biopsy: Three out of three lymph nodes positive for macrometastatic carcinoma. See comment. B. Left breast, mastectomy: Invasive ductal carcinoma. C. Right breast: Focal intraductal hyperplasia without atypia. Negative for carcinoma in the sections examined. D. Extra skin and tissue left breast: Negative for carcinoma. INVASIVE BREAST CANCER SUMMARY: (Including specimen A AND B) Specimen ? total breast (including nipple and skin). Procedure ? total mastectomy (including nipple and skin). Lymph node sampling ? sentinel lymph nodes Specimen integrity ? single intact specimen. Specimen laterality - left Tumor size ? 3.5 x 3.3 x 3 cm Tumor focality ? single focus of invasive carcinoma Macroscopic and Microscopic extent of tumor: Skin ? invasive carcinoma does not invade into the dermis or epidermis. Nipple ? ductal carcinoma in situ does not nipple epidermis. Skeletal muscle ? no skeletal muscle present. Ductal carcinoma in situ (DCIS) ? no ductal carcinoma in situ is present. Lobular carcinoma in situ (LCIS) ? not identified Histologic type of invasive carcinoma ? invasive ductal carcinoma (no special type). Histologic Grade (Raymon grade): Glandular/tubular differentiation - score 3 Nuclear pleomorphism - score 3 Mitotic count ? score 2 Overall grade - 3 (score of 8) Margins - Margins uninvolved by invasive carcinoma. The invasive carcinoma is 1.5 cm away from the closest posterior margin. Treatment effect: Response to presurgical (neoadjuvant) therapy - no known presurgical therapy. Lymph-Vascular invasion ? not identified Dermal lymph-vascular invasion - not identified Lymph nodes: Number of sentinel lymph nodes examined - 3 Total number of lymph nodes examined (sentinel and nonsentinel) - 3 Number of lymph nodes with macrometastases - 3 Number of lymph nodes with micrometastases and isolated tumor cells - 0 Size of largest metastatic deposit ? 3.6 cm Extranodal extension ? present, focal (0.4 cm in greatest dimension) Distance metastasis ? not applicable Additional pathologic findings ? fibrocystic changes and intraductal hyperplasia without atypia. Ancillary studies - previously performed on section of tumor ([id number] / [id number]). ER ? positive (>95%, strong) RI ? positive (variable, 0-11%, weak) Her2 bhavani ? negative (1+) Microcalcifications ? not identified Clinical history - Please make reference to previous specimen ([id number]) left breast, ultrasound-guided needle core biopsy with diagnosis of invasive ductal carcinoma. PATHOLOGIC STAGE: pT2 pN1a(sn) Mx The above summary is in compliance with [employer] ([employer] Cancer Protocols Checklist and [place] [employer] on [employer] (AJCC), Staging Manual, 8th Ed. COMMENT A. The lymph nodes are almost completely involved by the metastatic tumor. The largest lymph node measures 3.6 cm in greatest dimension. The largest focus of metastasis measures 3.6 cm in greatest dimension. Focal extranodal distention is noted which measures 0.4 cm in greatest dimension. Underwent completion axillary dissection 05/27/2017. Pathology: MICROSCOPIC DIAGNOSIS A. Left axillary contents, regional lymphadenectomy: Isolated metastatic tumor cells in one of seven lymph nodes. B. ?Dog ear,? excision: Skin with attached fibrofatty tissue with reactive and reparative change and suture granulomas. No evidence of malignancy. COMMENT Case has been reviewed in consultation with Dr. Skinnre who concurs with the above diagnosis. MICROSCOPIC DESCRIPTION Slides are reviewed. A. The largest lymph node contains benign histiocytic proliferation, fibrosis and minimal chronic inflammation consistent with previous biopsy and resection ([id number]). Immunohistochemistry ([id number]) supports the presence of isolated metastatic tumor cells in one out of seven lymph nodes. Previous therapy: 1) Adjuvant AC followed by Taxol. Presents for ongoing oncologic management. Interim history: Had muscular pain in thighs b/l. Better. Little stiff when first gets going. Had swelling, but resolved. No symptoms of cardiomyopathy including chest pain/pressure, palpitations, shortness of breath at rest or with exertion, lower extremity swelling/edema, PND or orthopnea. PMH, medications and allergies personally reviewed by me today. Any changes documented in appropriate section. ROS: Constitutional: Denies episodes of fever and night sweats. Neuro: Denies OWENS, vertigo, dizziness and imbalance. HEENT: No recent change in voice, vision or hearing. Resp: Denies cough, wheeze and hemoptysis. CVS: See above. : Denies dysuria or gross hematuria. No symptoms of bladder outlet obstruction. Endo: Denies hot flashes. Denies polyuria and polydipsia. Denies heat and cold intolerance. Musculoskeletal: Off Otezla. Heme: Denies unusual bleeding and unexplained bruising. Psych: Normal mood. PHYSICAL EXAM: Vitals: Blood pressure 142/63, pulse 73, temperature 36.3 ?C (97.4 ?F), temperature source Temporal Artery, weight 84.8 kg (187 lb), last menstrual period 02/04/2010, SpO2 96 %. Well-appearing and in no acute distress. EYES: Sclerae are anicteric bilaterally. ENT: Oral mucosa is unremarkable. NECK: Supple. LYMPHATIC: There is no palpable cervical, supraclavicular, axillary adenopathy. RESPIRATORY: Inspiratory breath sounds are of normal intensity in all peters. No rales, wheezes or rhonchi. CARDIOVASCULAR: Rhythm is regular. Normal intensity S1/S2. There is no gallop or murmur. ABDOMEN: The abdomen is nondistended. No organomegaly. No tenderness. Extremities: No swelling or edema now. SKIN: No jaundice. NEUROLOGIC: sheeter operator II-XII are grossly intact. No focal motor weakness. MUSCULOSKELETAL: No muscle wasting. 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 -pT2 (3.5 cm; grade 3; no LVI) pN1a (3 of 3 SLNs) MX ER/RI positive, HER2 negative invasive ductal carcinoma the left breast. -Staging form in problem list previously completed. -She tolerated adjuvant chemotherapy very well. -Again addressed the role of aromatase inhibitor therapy. -Spent the bulk of time discussing the [facility] trial including rationale and trial logistics. She is interested. Plan: -Continue radiation . -Will need SCP following radiation therapy. (E04.9) Goiter, nodular Assessment: -Was stable on follow up. Plan: -Repeat ultrasound in a year. Harpreet Pantoja, DO PROGRESS Observed: 11/28/2017 Status: COMPLETED Source: [place] 10:17 AM [facility] REPOSITORY HNO ID: [id number] Author: Bonita Zepeda Service: (none) Author Type: Physician Type: Progress Notes Filed: 11/28/2017 10:41 AM Note Text: Radiation Oncology - On Treatment Review (OTR) Note PATIENT NAME: Jessica Rodriguez PATIENT DIAGNOSIS: Stage III, T2N2, invasive ductal carcinoma of the left breast s/p left mastectomy and sentinel node biopsy and axillary node dissection. It's ER positive (>95%, strong), RI positive (variable, weak, 0-11%), and Her2/bhavani 1+. s/p adjuvant chemotherapy. COURSE: adjuvant AREA TREATED: Left breast/SC/axilla CURRENT DOSE: 1000 cGy in 5 fx PLANNED DOSE: 6000 cGy in 30 fx SUBJECTIVE: She is doing well without any specific new complaints. EXAM: KPS: 100 BP 142/63 (BP Site: Right Arm, BP Position: Sitting, BP Cuff Size: Large Adult) Pulse 73 Temp 36.3 ?C (97.4 ?F) (Temporal Artery) Resp 17 LMP 02/04/2010 SpO2 96% General Appearance: Alert and oriented. No acute distress. IMAGING/LAB RESULTS: CBC today reviewed. Treatment chart checked: Yes Patient treatment site reviewed and verified:Yes Port films reviewed and current:Yes Medications started: None ASSESSMENT/PLAN: Clinically stable. Toxicity within expected parameters. Continue radiation treatment as planned. Bonita Zepeda MD CNOV Observed: 11/28/2017 Status: COMPLETED Source: [place] 10:15 AM [facility] REPOSITORY Office Visit (RADTWS) JESSICA RODRIGUEZ ([id number]) 1955 F Date Time Provider Department 11/28/17 10:15 AM BONITA ZEPEDA During your visit today, we recorded the following information about you: Temperature Pulse Respiration Blood pressure 97.4 degrees 73/minute 17/minute 142/63 Julianne Hernandez RN, RN 11/28/2017 10:18 AM Signed Radiation Therapy - Nursing Note (OTV) PATIENT NAME: Jessica Rodriguez PATIENT November 28, 2017 [facility] FACILITY/LOCATION: [facility] NOTE TYPE: BREAST Subjective Data No c/o. Additional Data Do you want to see a Cable Driller? No Status: Post-menopausal. Stress Scale: On a scale of 0 to 10, what number best describes how much distress you have experienced in the past week?(0 being no distress and 10 being extreme distress) 1 Social work notified: Pt denied need to see social professionals at this time. Nursing Assessment Fatigue: none Appetite: good Nutritional Intake: Regular oral intake. Weight Gain/Loss: No Ambulatory weight history: Last 6 Encounter Wt Readings: Date: Wt: 10/30/2017 85 kg (187 lb 8 oz) 10/24/2017 87.8 kg (193 lb 8 oz) 10/18/2017 87.1 kg (192 lb) 10/11/2017 84.1 kg (185 lb 8 oz) 10/05/2017 87.5 kg (193 lb) 10/02/2017 84.6 kg (186 lb 8 oz) Nausea:None Vomiting: None Bowel Function: normal bowel movements Erythema/Hyperpigmentation:mild Desquamation:none Rash:none Skin Care: Aquaphor Skin Sensation: none itching and none burning Focused Assessment BREAST: Lymphedema Assessment: Is the patient noting any swelling? Yes, note duration - occassional since surgery, massage and exercises help. SIGNED by: MONET Marina MD 11/28/2017 10:41 AM Signed Radiation Oncology - On Treatment Review (OTR) Note PATIENT NAME: Jessica Rodriguez PATIENT DIAGNOSIS: Stage III, T2N2, invasive ductal carcinoma of the left breast s/p left mastectomy and sentinel node biopsy and axillary node dissection. It's ER positive (>95%, strong), RI positive (variable, weak, 0-11%), and Her2/bhavani 1+. s/p adjuvant chemotherapy. COURSE: adjuvant AREA TREATED: Left breast/SC/axilla CURRENT DOSE: 1000 cGy in 5 fx PLANNED DOSE: 6000 cGy in 30 fx SUBJECTIVE: She is doing well without any specific new complaints. EXAM: KPS: 100 BP 142/63 (BP Site: Right Arm, BP Position: Sitting, BP Cuff Size: Large Adult) Pulse 73 Temp 36.3 ?C (97.4 ?F) (Temporal Artery) Resp 17 LMP 02/04/2010 SpO2 96% General Appearance: Alert and oriented. No acute distress. IMAGING/LAB RESULTS: CBC today reviewed. Treatment chart checked: Yes Patient treatment site reviewed and verified:Yes Port films reviewed and current:Yes Medications started: None ASSESSMENT/PLAN: Clinically stable. Toxicity within expected parameters. Continue radiation treatment as planned. Bonita Zepeda MD Referring Provider: RIA DEE [[id number]] Allergies As of Date: 11/28/2017 Noted Allergy Reaction IV DYE (IODINATED CONTRAST- ORAL *05/21/2006 4 - Hives SHELLFISH 05/21/2006 4 - Hives VICTOZA (LIRAGLUTIDE) 03/30/2017 5 - Intolerance Date Reviewed: 11/28/2017 Reviewed by: Loli Addison - Fully Assessed Reason for Visit: OTV [Other] Primary Visit Diagnosis:Malignant neoplasm of upper-outer quadrant of left breast in female, estrogen receptor positive (HCC) [C50.412, Z17.0] Prescriptions as of 11/28/2017 Sig: FUROSEMIDE 20 MG TABLET Take 1 tablet by mouth once d* POTASSIUM CHLORIDE ER 20 MEQ * Take 1 tablet by mouth once d* DIPHENHYDRAMINE 25 MG-ACETAMI* Take 1 tablet by mouth at bed* LORAZEPAM 1 MG TABLET Take 1 mg by mouth every 8 ho* ONDANSETRON HCL 8 MG TABLET Take 1 tablet by mouth every * ASCORBIC ACID (VITAMIN C) 500* Take 500 mg by mouth as neede* LIDOCAINE-PRILOCAINE 2.5 %-2.* Apply 1 application to affect* MELATONIN 3 MG TABLET Take 6 mg by mouth daily at b* OTC NUTRITIONAL SUPPLEMENT day IBUPROFEN 200 MG TABLET Take 600 mg by mouth twice da* METFORMIN ER 500 MG TABLET,EX* Take 500 mg by mouth twice da* SUMATRIPTAN 100 MG TABLET Take 100 mg by mouth as neede* OMEPRAZOLE 40 MG CAPSULE,CARLYN* Take 40 mg by mouth once adia* [id number] 5* Take 1 capsule by mouth once * TRAMADOL 50 MG TABLET Take 50 mg by mouth three lizeth* * FLUOXETINE 20 MG CAPSULE Take 20 mg by mouth once adia* * MULTIVITAMIN TABLET Take one(1) tablet daily. 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 Visit Notes: >> Julianne (Monet) MONET Hernandez SunNov 28, 2017 10:15 AM Status: Signed Radiation Therapy - Nursing Note (OTV) PATIENT NAME: Jessica Rodriguez PATIENT November 28, 2017 [facility] FACILITY/LOCATION: [place] [facility] NOTE TYPE: BREAST Subjective Data No c/o. Additional Data Do you want to see a Cable Driller? No Status: Post-menopausal. Stress Scale: On a scale of 0 to 10, what number best describes how much distress you have experienced in the past week?(0 being no distress and 10 being extreme distress) 1 Social work notified: Pt denied need to see social professionals at this time. Nursing Assessment Fatigue: none Appetite: good Nutritional Intake: Regular oral intake. Weight Gain/Loss: No Ambulatory weight history: Last 6 Encounter Wt Readings: Date: Wt: 10/30/2017 85 kg (187 lb 8 oz) 10/24/2017 87.8 kg (193 lb 8 oz) 10/18/2017 87.1 kg (192 lb) 10/11/2017 84.1 kg (185 lb 8 oz) 10/05/2017 87.5 kg (193 lb) 10/02/2017 84.6 kg (186 lb 8 oz) Nausea:None Vomiting: None Bowel Function: normal bowel movements Erythema/Hyperpigmentation:mild Desquamation:none Rash:none Skin Care: Aquaphor Skin Sensation: none itching and none burning Focused Assessment BREAST: Lymphedema Assessment: Is the patient noting any swelling? Yes, note duration - occassional since surgery, massage and exercises help. SIGNED by: Julianne Hernandez RN Encounter Status:Closed by BONITA ZEPEDA MD on 11/28/17 CNOVSP Observed: 11/28/2017 Status: COMPLETED Source: [place] 10:10 AM [facility] REPOSITORY Visit (SP) Office (BRETT) JESSICA RODRIGUEZ ([id number]) 1955 F Date Time Provider Department 11/28/17 10:10 AM HARPREET PANTOJA During your visit today, we recorded the following information about you: Temperature Pulse Blood pressure Weight 97.4 degrees 73/minute 142/63 84.8 kg Harpreet Pantoja DO 11/28/2017 10:54 AM Signed Diagnosis: 1) Breast cancer. HPI: The patient is a 62-year-old female was a past medical history significant for diabetes and psoriatic arthritis. Patient had a screening mammogram performed on 03/22/2017 (only 3 months past annual date of previous study). There was a new mass identified in the left breast as being indeterminate. Further studies were recommended. Diagnostic imaging done on 03/28/2017 demonstrated a 3 cm irregular mass in left breast consistent with carcinoma and was highly suggestive of malignancy. Underwent core needle biopsy on 2017. Pathology: Left breast, ultrasound-guided needle core biopsy: Invasive ductal carcinoma, nuclear grade 3 (1 cm in greatest length). See comment. ER (clone 6F11) >95%, strong RI (clone 16/1E2) variable, 0-11%, weak Her-2Neu (clone CB11) 1+ Underwent left-sided mastectomy with left sentinel axillary lymph node biopsy along with prophylactic right-sided mastectomy on 04/20/2017. Pathology: FROZEN SECTION DIAGNOSIS A. Left axillary sentinel lymph nodes, biopsy: Three out of three lymph nodes positive for macrometastatic carcinoma. MICROSCOPIC DIAGNOSIS A. Left axillary sentinel lymph nodes, biopsy: Three out of three lymph nodes positive for macrometastatic carcinoma. See comment. B. Left breast, mastectomy: Invasive ductal carcinoma. C. Right breast: Focal intraductal hyperplasia without atypia. Negative for carcinoma in the sections examined. D. Extra skin and tissue left breast: Negative for carcinoma. INVASIVE BREAST CANCER SUMMARY: (Including specimen A AND B) Specimen ? total breast (including nipple and skin). Procedure ? total mastectomy (including nipple and skin). Lymph node sampling ? sentinel lymph nodes Specimen integrity ? single intact specimen. Specimen laterality - left Tumor size ? 3.5 x 3.3 x 3 cm Tumor focality ? single focus of invasive carcinoma Macroscopic and Microscopic extent of tumor: Skin ? invasive carcinoma does not invade into the dermis or epidermis. Nipple ? ductal carcinoma in situ does not nipple epidermis. Skeletal muscle ? no skeletal muscle present. Ductal carcinoma in situ (DCIS) ? no ductal carcinoma in situ is present. Lobular carcinoma in situ (LCIS) ? not identified Histologic type of invasive carcinoma ? invasive ductal carcinoma (no special type). Histologic Grade (Raymon grade): Glandular/tubular differentiation - score 3 Nuclear pleomorphism - score 3 Mitotic count ? score 2 Overall grade - 3 (score of 8) Margins - Margins uninvolved by invasive carcinoma. The invasive carcinoma is 1.5 cm away from the closest posterior margin. Treatment effect: Response to presurgical (neoadjuvant) therapy - no known presurgical therapy. Lymph-Vascular invasion ? not identified Dermal lymph-vascular invasion - not identified Lymph nodes: Number of sentinel lymph nodes examined - 3 Total number of lymph nodes examined (sentinel and nonsentinel) - 3 Number of lymph nodes with macrometastases - 3 Number of lymph nodes with micrometastases and isolated tumor cells - 0 Size of largest metastatic deposit ? 3.6 cm Extranodal extension ? present, focal (0.4 cm in greatest dimension) Distance metastasis ? not applicable Additional pathologic findings ? fibrocystic changes and intraductal hyperplasia without atypia. Ancillary studies - previously performed on section of tumor ([id number] / [id number]). ER ? positive (>95%, strong) RI ? positive (variable, 0-11%, weak) Her2 bhavani ? negative (1+) Microcalcifications ? not identified Clinical history - Please make reference to previous specimen ([id number]) left breast, ultrasound-guided needle core biopsy with diagnosis of invasive ductal carcinoma. PATHOLOGIC STAGE: pT2 pN1a(sn) Mx The above summary is in compliance with [employer] [place] [employer] ([employer]) Cancer Protocols Checklist and [place] [employer] on Cancer (AJCC), Staging Manual, 8th Ed. COMMENT A. The lymph nodes are almost completely involved by the metastatic tumor. The largest lymph node measures 3.6 cm in greatest dimension. The largest focus of metastasis measures 3.6 cm in greatest dimension. Focal extranodal distention is noted which measures 0.4 cm in greatest dimension. Underwent completion axillary dissection 05/27/2017. Pathology: MICROSCOPIC DIAGNOSIS A. Left axillary contents, regional lymphadenectomy: Isolated metastatic tumor cells in one of seven lymph nodes. B. ?Dog ear,? excision: Skin with attached fibrofatty tissue with reactive and reparative change and suture granulomas. No evidence of malignancy. COMMENT Case has been reviewed in consultation with Dr. Skinner who concurs with the above diagnosis. MICROSCOPIC DESCRIPTION Slides are reviewed. A. The largest lymph node contains benign histiocytic proliferation, fibrosis and minimal chronic inflammation consistent with previous biopsy and resection ([id number]). Immunohistochemistry ([id number]) supports the presence of isolated metastatic tumor cells in one out of seven lymph nodes. Previous therapy: 1) Adjuvant AC followed by Taxol. Presents for ongoing oncologic management. Interim history: Had muscular pain in thighs b/l. Better. Little stiff when first gets going. Had swelling, but resolved. No symptoms of cardiomyopathy including chest pain/pressure, palpitations, shortness of breath at rest or with exertion, lower extremity swelling/edema, PND or orthopnea. PMH, medications and allergies personally reviewed by me today. Any changes documented in appropriate section. ROS: Constitutional: Denies episodes of fever and night sweats. Neuro: Denies OWENS, vertigo, dizziness and imbalance. HEENT: No recent change in voice, vision or hearing. Resp: Denies cough, wheeze and hemoptysis. CVS: See above. : Denies dysuria or gross hematuria. No symptoms of bladder outlet obstruction. Endo: Denies hot flashes. Denies polyuria and polydipsia. Denies heat and cold intolerance. Musculoskeletal: Off Otezla. Heme: Denies unusual bleeding and unexplained bruising. Psych: Normal mood. PHYSICAL EXAM: Vitals: Blood pressure 142/63, pulse 73, temperature 36.3 ?C (97.4 ?F), temperature source Temporal Artery, weight 84.8 kg (187 lb), last menstrual period 02/04/2010, SpO2 96 %. Well-appearing and in no acute distress. EYES: Sclerae are anicteric bilaterally. ENT: Oral mucosa is unremarkable. NECK: Supple. LYMPHATIC: There is no palpable cervical, supraclavicular, axillary adenopathy. RESPIRATORY: Inspiratory breath sounds are of normal intensity in all peters. No rales, wheezes or rhonchi. CARDIOVASCULAR: Rhythm is regular. Normal intensity S1/S2. There is no gallop or murmur. ABDOMEN: The abdomen is nondistended. No organomegaly. No tenderness. Extremities: No swelling or edema now. SKIN: No jaundice. NEUROLOGIC: sheeter operator II-XII are grossly intact. No focal motor weakness. MUSCULOSKELETAL: No muscle wasting. 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 -pT2 (3.5 cm; grade 3; no LVI) pN1a (3 of 3 SLNs) MX ER/RI positive, HER2 negative invasive ductal carcinoma the left breast. -Staging form in problem list previously completed. -She tolerated adjuvant chemotherapy very well. -Again addressed the role of aromatase inhibitor therapy. -Spent the bulk of time discussing the [facility] trial including rationale and trial logistics. She is interested. Plan: -Continue radiation . -Will need SCP following radiation therapy. (E04.9) Goiter, nodular Assessment: -Was stable on follow up. Plan: -Repeat ultrasound in a year. 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) [C77.3] Order(s):LORazepam (ATIVAN) 1 mg tabletTake 1 tablet by mouth every 8 hours as needed for up to 30 days.Disp: 90 tabletRfl: 0 Follow-up and Disposition History Recorded Prescriptions as of 11/28/2017 Sig: LORAZEPAM 1 MG TABLET Take 1 tablet by mouth every * FUROSEMIDE 20 MG TABLET Take 1 tablet by mouth once d* POTASSIUM CHLORIDE ER 20 MEQ * Take 1 tablet by mouth once d* DIPHENHYDRAMINE 25 MG-ACETAMI* Take 1 tablet by mouth at bed* ONDANSETRON HCL 8 MG TABLET Take 1 tablet by mouth every * ASCORBIC ACID (VITAMIN C) 500* Take 500 mg by mouth as neede* LIDOCAINE-PRILOCAINE 2.5 %-2.* Apply 1 application to affect* MELATONIN 3 MG TABLET Take 6 mg by mouth daily at b* OTC NUTRITIONAL SUPPLEMENT day IBUPROFEN 200 MG TABLET Take 600 mg by mouth twice da* METFORMIN ER 500 MG TABLET,EX* Take 500 mg by mouth twice da* SUMATRIPTAN 100 MG TABLET Take 100 mg by mouth as neede* OMEPRAZOLE 40 MG CAPSULE,CARLYN* Take 40 mg by mouth once adia* [id number] 5* Take 1 capsule by mouth once * TRAMADOL 50 MG TABLET Take 50 mg by mouth three lizeth* * FLUOXETINE 20 MG CAPSULE Take 20 mg by mouth once adia* * MULTIVITAMIN TABLET Take one(1) tablet daily. 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 Encounter Status:Closed by HARPREET PANTOJA DO on 11/28/17 [facility] ABS GR + CBC Collected: 11/28/2017 Status: F Source: [place] 9:54 AM [facility] REPOSITORY TYPE CODE TESTS RESULT OUT OF REFERENCE UNITS RANGE LAB WWBC 3.70-11.00 k/uL [facility] WBC 5.42 LAB WRBC 3.90-5.20 m/uL [facility] RBC 4.37 LAB WHGB 11.5-15.5 g/dL [facility] Hemoglobin 12.2 LAB WHCT 36.0-46.0 % [facility] Hematocrit 38.3 LAB WMCV 80.0-100.0 fL [facility] MCV 87.6 LAB WMCH 26.0-34.0 pg [facility] MCH 27.9 LAB WMCHC 30.5-36.0 g/dL [facility] MCHC 31.9 LAB WRDW 11.5-15.0 % [facility] RDW 14.2 LAB WPLT 150-400 k/uL [facility] Platelet Cnt 225 LAB WMPV 9.0-12.7 fL [facility] MPV 9.1 Result Comment: Test performed at: [facility], [address] [place] [address]. LAB ABGRAN 1.45-7.50 k/uL Absol Gran 3.80 Count CNCNPATED Observed: 11/19/2017 Status: COMPLETED Source: [place] 12:00 AM [facility] REPOSITORY Education (RADTWS) JESSICA RODRIGUEZ ([id number]) 1955 F Date Time Provider Department 11/19/17 BONITA ZEPEDA Reason for Visit: Patient Education [91] Visit Notes: >> Nikky (Rn) MONET Briones Mon Nov 19, 2017 11:11 AM Status: Signed Radiation Therapy - Patient Education Note PATIENT NAME: Jessica Rodriguez PATIENT November 19, 2017 [facility] FACILITY/LOCATION: [place] READINESS TO LEARN Cognitive Ability: Alert and oriented Motivation to learn: Eager Interested Family Support: High - Very involved in pt care Instruction provide to: Patient and Spouse Patient learns best by: Individual Instruction Written Instruction - Hand-outs Verbal Instruction Factors effecting learning: None Physical limitations effecting learning: None LEARNING RESPONSE Diagnosis: Pt simulated today for radiation therapy to breast. Education Topic/Teaching Points: Radiation therapy, Side effects and OTV: Method of instruction: Teach Back skin care Individual instruction Written instruction - handouts Verbal instruction Patient /Family response: Patient and family verbalized understanding of radiation treatments, side effects, OTV, and transportation. Follow-up plan: Patient instructed to call with any further issues Reinforce - Repeat previous content Contact information given. Supplemental material: Informational handouts on Department phone list, Fatigue and XRT sheet, [place] instructions, Aquaphor coupon. Referral (recommendation): None, Pt denied need for social work, van service, and personnel interviewer. Signed by: Nikky Briones RN During your visit today, we recorded the following information about you: Allergies As of Date: 11/19/2017 Noted Allergy Reaction IV DYE (IODINATED CONTRAST- ORAL *05/21/2006 4 - Hives SHELLFISH 05/21/2006 4 - Hives VICTOZA (LIRAGLUTIDE) 03/30/2017 5 - Intolerance Date Reviewed: 11/03/2017 Reviewed by: Hodan Chong - Fully Assessed Prescriptions as of 11/19/2017 Sig: FUROSEMIDE 20 MG TABLET Take 1 tablet by mouth once d* POTASSIUM CHLORIDE ER 20 MEQ * Take 1 tablet by mouth once d* DIPHENHYDRAMINE 25 MG-ACETAMI* Take 1 tablet by mouth at bed* LORAZEPAM 1 MG TABLET Take 1 mg by mouth every 8 ho* ONDANSETRON HCL 8 MG TABLET Take 1 tablet by mouth every * ASCORBIC ACID (VITAMIN C) 500* Take 500 mg by mouth as neede* LIDOCAINE-PRILOCAINE 2.5 %-2.* Apply 1 application to affect* MELATONIN 3 MG TABLET Take 6 mg by mouth daily at b* OTC NUTRITIONAL SUPPLEMENT calm day IBUPROFEN 200 MG TABLET Take 600 mg by mouth twice da* METFORMIN ER 500 MG TABLET,EX* Take 500 mg by mouth twice da* SUMATRIPTAN 100 MG TABLET Take 100 mg by mouth as neede* OMEPRAZOLE 40 MG CAPSULE,CARLYN* Take 40 mg by mouth once adia* DUCEXEUFNS-[id number] 5* Take 1 capsule by mouth once * TRAMADOL 50 MG TABLET Take 50 mg by mouth three lizeth* * FLUOXETINE 20 MG CAPSULE Take 20 mg by mouth once adia* * MULTIVITAMIN TABLET Take one(1) tablet daily. * CALCIUM + D 600 MG (1,500 MG)* Take one(1) tablet twice adia* * TYLENOL EXTRA STRENGTH 500 MG* Take two(2) tablets every six* Encounter Status:Closed by NIKKY BRIONES on 11/19/17 [facility] CT NON-RADIOLOGY Observed: 11/19/2017 Status: F Source: [facility] 12:00 AM [facility] REPOSITORY [facility] - CT Images - Obtained Outside of Imaging [place] [id number] PROGRESS Observed: 11/19/2017 Status: COMPLETED Source: [place] 12:00 AM [facility] REPOSITORY HNO ID: [id number] Author: Bonita Zepeda Service: (none) Author Type: Physician Type: Progress Notes Filed: 11/22/2017 12:35 AM Note Text: JESSICA RODRIGUEZ [id number] 11/19/2017 [facility] Department of Radiation Oncology [facility] RADIATION ONCOLOGY SIMULATION NOTE DATE OF SIMULATION: 11/19/2017 MACHINE: Vigilos Definition CT Simulator Diagnosis: Stage III, T2N2, invasive ductal carcinoma of the left breast s/p left mastectomy and sentinel node biopsy and axillary node dissection. It's ER positive (>95%, strong), RI positive (variable, weak, 0-11%), and Her2/bhavani 1+. She is now undergoing chemotherapy. AREA:Left chest wall/SC/axilla PATIENT POSITION: Supine. CONTRAST: None PROTOCOL: None BLOCKING: Custom blocking to be determined at treatment planning. FIXATION DEVICE: In order to achieve accurate and reproducible treatments, the patient is to be immobilized with orfit system PROCEDURE: A time-out was conducted and recorded by the therapist. Patient was simulated on the CT scanner for external beam radiation therapy. Treatment site was marked by the simulation therapist. ASSESSMENT/PLAN: Patient tolerated simulation procedure well. Treatments will be initiated after treatment planning. The patient is scheduled for a verification simulation on the treatment machine to ensure proper set-up and field arrangement is correct prior to the first treatment of primary and boost peters if applicable. Electronically Signed Bonita Zepeda M.D./marina 11/21/20173:21 PM PROGRESS Observed: 11/19/2017 Status: COMPLETED Source: [place] 12:00 AM [facility] REPOSITORY HNO ID: [id number] Author: Bonita Zepeda Service: (none) Author Type: Physician Type: Progress Notes Filed: 11/22/2017 12:36 AM Note Text: JESSICA RODRIGUEZ [id number] 11/19/2017 [facility] Department of Radiation Oncology Treatment Planning Note For reasons stated in the consult note, Jessica Rodriguez is a candidate for radiation therapy. Based on review and interpretation of the relevant diagnostic studies together with the exam findings, Jessica Rodriguez was simulated on 11/19/2017 at which time the target volume and/or requisite peters were delineated, as indicated in the simulation note, to be treated according to the prescription. The treatment target and organs at risk were contoured on the simulation scan. After reviewing multiple treatment plans with dosimetry, the best plan was approved to deliver the prescribed course of radiation to the target area using 3D planning to allow for the best isodose distribution, treating to the 100% isodose line with 10 AND 15MV and 10 peters. Custom MLC, wedges, and asym jaws were the treatment devices used to shape/modify the beams. Limiting dose to normal tissue was confirmed upon review of the calculated dose volume histogram. A completed summary of this plan dated 11-21-17 incorporated herein by reference includes dose, beam arrangements, energy, blocking, isodose distribution, and/or ports and DVH. Electronically Signed Bonita Zepeda M.D. 11/21/20173:20 PM PROCEDURE Observed: 11/01/2017 Status: COMPLETED Source: [place] 7:42 PM [facility] REPOSITORY HNO ID: [id number] Author: Hodan Chong Service: (none) Author Type: Physician Type: Procedures Filed: 11/03/2017 7:37 PM Note Text: After informed consent was given the patient was placed in the supine position. Appropriate time out protocol was followed. At the site of the port - right upper chest area, the skin was cleansed with sterile skin preparation and sterile surgical drapes were placed. The skin and subcutaneous tissues were infiltrated with 1% xylocaine with epinephrine. A skin incision was made at the previous scar site with a 15 blade scalpel. Blunt dissection was then continued down to the port site. Blunt dissection was continued to separate the port and catheter for the surrounding tissues. Once completely freed, the port and catheter was then completely removed from the wound. Pressure was applied to the subclavian vein site for hemostasis. The skin was then reapproximated with a running 3-0 subcuticular vicryl suture. Steristrips were applied to reinforce the skin closure. A sterile dressing was then applied. Patient tolerated the procedure well. PROGRESS Observed: 11/01/2017 Status: COMPLETED Source: [place] 7:42 PM [facility] HNO ID: [id number] Author: Hodan Chong Service: (none) Author Type: Physician Type: Progress Notes Filed: 11/03/2017 7:37 PM Note Text: Jessica presents for removal of right sided portacath. Has completed chemotherapy and wants portacath removed. Tolerated procedure well. Follow up as per needed. PROGRESS Observed: 11/01/2017 Status: COMPLETED Source: [place] 4:13 PM [facility] HNO ID: [id number] Author: Drea Mccauley RN Service: (none) Author Type: (none) Type: Progress Notes Filed: 11/03/2017 7:37 PM Note Text: UNIVERSAL PROTOCOL / SAFETY CHECKLIST Procedure to be performed: removal of vascular port Sign in Communication: Completed Time Out: Team Confirms the Correct Patient, Correct Procedure, Correct Site and Site Marking, Correct Position (if applicable), Prep and Dry Time (if applicable). Time: 1614 Affirmation of Time Out: YES Sign Out Discussion: Completed Drea Mccauley RN CNOV Observed: 11/01/2017 Status: COMPLETED Source: [place] 3:40 PM [facility] REPOSITORY Office Visit (GENSWS) JESSICA RODRIGUEZ ([id number]) 1955 F Date Time Provider Department 11/01/17 3:40 PM HODAN CHONG During your visit today, we recorded the following information about you: Drea Mccauley RN 11/03/2017 7:37 PM Signed UNIVERSAL PROTOCOL / SAFETY CHECKLIST Procedure to be performed: removal of vascular port Sign in Communication: Completed Time Out: Team Confirms the Correct Patient, Correct Procedure, Correct Site and Site Marking, Correct Position (if applicable), Prep and Dry Time (if applicable). Time: 1614 Affirmation of Time Out: YES Sign Out Discussion: Completed Drea Mccauley RN 11/01/2017 4:32 PM Signed The following instructions are important for you related to your office visit today with the [facility] General Surgeons. Instructions After SKIN EXCISION-SUTURES You can remove the dressing in about a week.. If the dressing becomes soaked or had significant drainage, the dressing should be changed. If there is minor bleeding from this skin edge, you should hold pressure on the incision until the bleeding stops. If there is continued bleeding, you should contact our office immediately. If the wound shows signs of redness, inflammation, or purulent drainage, you should contact our office immediately. You can shower tomorrow. The wound should not be immersed in a pool, bathtub, or even hot tub until it is healed. If you note any additional difficulties, questions, or concerns, you should contact our office immediately @ [phone] and ask to be transferred to the General Surgery department. Hodan Chong MD 11/03/2017 7:37 PM Signed Jessica presents for removal of right sided portacath. Has completed chemotherapy and wants portacath removed. Tolerated procedure well. Follow up as per needed. Hodan Chong MD 11/03/2017 7:37 PM Signed After informed consent was given the patient was placed in the supine position. Appropriate time out protocol was followed. At the site of the port - right upper chest area, the skin was cleansed with sterile skin preparation and sterile surgical drapes were placed. The skin and subcutaneous tissues were infiltrated with 1% xylocaine with epinephrine. A skin incision was made at the previous scar site with a 15 blade scalpel. Blunt dissection was then continued down to the port site. Blunt dissection was continued to separate the port and catheter for the surrounding tissues. Once completely freed, the port and catheter was then completely removed from the wound. Pressure was applied to the subclavian vein site for hemostasis. The skin was then reapproximated with a running 3-0 subcuticular vicryl suture. Steristrips were applied to reinforce the skin closure. A sterile dressing was then applied. Patient tolerated the procedure well. Referring Provider: HARPREET PANTOJA [[id number]] Allergies As of Date: 11/01/2017 Noted Allergy Reaction IV DYE (IODINATED CONTRAST- ORAL *05/21/2006 4 - Hives SHELLFISH 05/21/2006 4 - Hives VICTOZA (LIRAGLUTIDE) 03/30/2017 5 - Intolerance Date Reviewed: 11/01/2017 Reviewed by: Drea Mccauley RN - Fully Assessed Reason for Visit: Procedure [88] Cmt: port removal Primary Visit Diagnosis:Encounter for fitting and adjustment of vascular catheter [Z45.2] Other Visit Diagnosis:Postoperative pain [G89.18] Order(s):HYDROcodone-acetaminophen (NORCO) 5-325 mg per tabletTake 1 tablet by mouth every 8 hours as needed for up to 3 days.Disp: 10 tabletRfl: 0 Prescriptions as of 11/01/2017 Sig: DIPHENHYDRAMINE 25 MG-ACETAMI* Take 1 tablet by mouth at bed* LORAZEPAM 1 MG TABLET Take 1 mg by mouth every 8 ho* ONDANSETRON HCL 8 MG TABLET Take 1 tablet by mouth every * ASCORBIC ACID (VITAMIN C) 500* Take 500 mg by mouth as neede* LIDOCAINE-PRILOCAINE 2.5 %-2.* Apply 1 application to affect* MELATONIN 3 MG TABLET Take 6 mg by mouth daily at b* OTC NUTRITIONAL SUPPLEMENT day IBUPROFEN 200 MG TABLET Take 600 mg by mouth twice da* METFORMIN ER 500 MG TABLET,EX* Take 500 mg by mouth twice da* SUMATRIPTAN 100 MG TABLET Take 100 mg by mouth as neede* OMEPRAZOLE 40 MG CAPSULE,CARLYN* Take 40 mg by mouth once adia* [id number] 5* Take 1 capsule by mouth once * TRAMADOL 50 MG TABLET Take 50 mg by mouth three lizeth* * FLUOXETINE 20 MG CAPSULE Take 20 mg by mouth once adia* * MULTIVITAMIN TABLET Take one(1) tablet daily. * CALCIUM + D 600 MG (1,500 MG)* Take one(1) tablet twice adia* * TYLENOL EXTRA STRENGTH 500 MG* Take two(2) tablets every six* HYDROCODONE 5 MG-ACETAMINOPHE* Take 1 tablet by mouth every * Problem List As Of Date 11/01/2017 Noted Resolved Postmenopausal bleeding [N95.0] INVALID FOR* Ovarian cyst [N83.209] INVALID FOR* Malignant neoplasm of upper-outer quadrant of l*INVALID FOR* 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 Other instructions from your clinician: The following instructions are important for you related to your office visit today with the [facility] General Surgeons. Instructions After SKIN EXCISION-SUTURES You can remove the dressing in about a week.. If the dressing becomes soaked or had significant drainage, the dressing should be changed. If there is minor bleeding from this skin edge, you should hold pressure on the incision until the bleeding stops. If there is continued bleeding, you should contact our office immediately. If the wound shows signs of redness, inflammation, or purulent drainage, you should contact our office immediately. You can shower tomorrow. The wound should not be immersed in a pool, bathtub, or even hot tub until it is healed. If you note any additional difficulties, questions, or concerns, you should contact our office immediately @ [phone] and ask to be transferred to the General Surgery department. Prescriptions ordered this encounter Disp Refills Start End HYDROCODONE 5 MG-ACETAMINOPHEN 325 M* 10 t* 0 11/01/2017 11/04/2017 Class: Print RX Route: ORAL Sig: Take 1 tablet by mouth every 8 hours as needed for up to 3 days. Encounter Status:Closed by MD HODAN CHONG on 11/03/17 PROGRESS Observed: 11/01/2017 Status: COMPLETED Source: [place] 3:10 PM [facility] REPOSITORY HNO ID: [id number] Author: Hamida Escobar Rdms Service: (none) Author Type: (none) Type: Progress Notes Filed: 11/01/2017 3:10 PM Note Text: Radiology Service Progress Note PATIENT NAME: Jessica Rodriguez DATE OF SERVICE: November 01, 2017 TIME: 3:10 PM PATIENT IDENTITY VERIFICATION COMPLETED USING TWO (2) METHODS: Patient confirmed name verbally and Date of . PATIENT GENDER DATA: Female. status: : No status: NO. PATIENT RELEVANT IMPLANT DATA REVIEWED: Not Applicable RADIOLOGY DEPARTMENT: Ultrasound PERIPHERAL IV DATA: Not applicable SIGNED BY: Hamida Escobar Rdms November 01, 2017 3:10 PM US THYROID/PARATHYROID Observed: 11/01/2017 Status: F Source: [place] 3:08 PM [facility] REPOSITORY * * *Final Report* * * DATE OF EXAM: Nov 01 2017 3:08PM [facility] 1048 - US THYROID/PARATHYROID / PROCEDURE REASON: Nontoxic goiter, unspecified * * * * Physician Interpretation * * * * THYROID ULTRASOUND COMPARISON: 05/16/2017 INDICATION: Nontoxic goiter, nodule follow-up TECHNIQUE: Real-time montano scale ultrasound imaging of the thyroid was performed with color Doppler imaging. Images were obtained and stored in a permanent archive. RESULT: Thyroid is homogeneous in echotexture. Symmetric Doppler signal to both thyroid lobes without hyperemia. Right thyroid lobe: Size: 6.1 x 1.7 x 2 cm (cc by AP by transverse) Nodules: Heterogeneous, mildly vascular 1.1 x 0.8 x 0.9 cm (previously 1.1 x 0.8 x 0.9 cm) mid pole nodule. Immediately laterally is a 0.5 x 0.3 x 0.4 cm (previously 0.5 x 0.4 x 0.3 cm) coarsely calcified, partially shadowing nodule. Heterogeneous, perhaps minimally vascular 0.6 x 0.5 x 0.6 cm (previously 0.7 x 0.4 x 0.6 cm) lower pole nodule. Left thyroid lobe: Size: 6 x 2.3 x 1.6 cm (cc by AP by transverse) Nodules: Avascular, primarily cystic 1.1 x 0.7 x 1.2 cm (previously 1 x 0.7 x 1.2 cm) posterior mid pole nodule. Isthmus: Size: 0.4 cm (AP) Nodules: None IMPRESSION: Stable multinodular goiter. [employer]ed [employer] Panels Developer: PSCB Transcribe Date/Time: Nov 02 2017 11:48A Dictated by : PHILLY WILLAMS MD This examination was interpreted and the report reviewed and electronically signed by: PHILLY WILLAMS MD on Nov 02 2017 11:51AM EST [id number] Observed: 10/31/2017 Status: COMPLETED Source: [place] 11:00 AM [facility] REPOSITORY Visit (SP) Office ([place]) JESSICA RODRIGUEZ ([id number]) 1955 F Date Time Provider Department 10/31/17 11:00 AM RIA DEE CNP During your visit today, we recorded the following information about you: Ria Dee APRN.CNP 10/31/2017 12:08 PM Signed Chief Complaint No chief complaint on file. HPI: Jessica Rodriguez is a 62 year old female who presents here today for SCP/breast cancer. Per Dr. Pantoja's previous note: H/o diabetes and psoriatic arthritis. ? Patient had a screening mammogram performed on 03/22/2017 (only 3 months past annual date of previous study). There was a new mass identified in the left breast as being indeterminate. Further studies were recommended. ? Diagnostic imaging done on 03/28/2017 demonstrated a 3 cm irregular mass in left breast consistent with carcinoma and was highly suggestive of malignancy. ? Underwent core needle biopsy on 2017. ? Pathology: Left breast, ultrasound-guided needle core biopsy: Invasive ductal carcinoma, nuclear grade 3 (1 cm in greatest length). See comment. ? ER (clone 6F11) >95%, strong RI (clone 16/1E2) variable, 0-11%, weak Her-2Neu (clone CB11) 1+ ? Underwent left-sided mastectomy with left sentinel axillary lymph node biopsy along with prophylactic right-sided mastectomy on 04/20/2017. ? Pathology: FROZEN SECTION DIAGNOSIS A. Left axillary sentinel lymph nodes, biopsy: Three out of three lymph nodes positive for macrometastatic carcinoma. ? MICROSCOPIC DIAGNOSIS A. Left axillary sentinel lymph nodes, biopsy: Three out of three lymph nodes positive for macrometastatic carcinoma. See comment. B. Left breast, mastectomy: Invasive ductal carcinoma. C. Right breast: Focal intraductal hyperplasia without atypia. Negative for carcinoma in the sections examined. D. Extra skin and tissue left breast: Negative for carcinoma. ? INVASIVE BREAST CANCER SUMMARY: (Including specimen A AND B) Specimen ? total breast (including nipple and skin). Procedure ? total mastectomy (including nipple and skin). Lymph node sampling ? sentinel lymph nodes Specimen integrity ? single intact specimen. Specimen laterality - left Tumor size ? 3.5 x 3.3 x 3 cm Tumor focality ? single focus of invasive carcinoma Macroscopic and Microscopic extent of tumor: Skin ? invasive carcinoma does not invade into the dermis or epidermis. Nipple ? ductal carcinoma in situ does not nipple epidermis. Skeletal muscle ? no skeletal muscle present. Ductal carcinoma in situ (DCIS) ? no ductal carcinoma in situ is present. Lobular carcinoma in situ (LCIS) ? not identified Histologic type of invasive carcinoma ? invasive ductal carcinoma (no special type). Histologic Grade (Raymon grade): Glandular/tubular differentiation - score 3 Nuclear pleomorphism - score 3 Mitotic count ? score 2 Overall grade - 3 (score of 8) Margins - Margins uninvolved by invasive carcinoma. The invasive carcinoma is 1.5 cm away from the closest posterior margin. Treatment effect: Response to presurgical (neoadjuvant) therapy - no known presurgical therapy. Lymph-Vascular invasion ? not identified Dermal lymph-vascular invasion - not identified Lymph nodes: Number of sentinel lymph nodes examined - 3 Total number of lymph nodes examined (sentinel and nonsentinel) - 3 Number of lymph nodes with macrometastases - 3 Number of lymph nodes with micrometastases and isolated tumor cells - 0 Size of largest metastatic deposit ? 3.6 cm Extranodal extension ? present, focal (0.4 cm in greatest dimension) Distance metastasis ? not applicable Additional pathologic findings ? fibrocystic changes and intraductal hyperplasia without atypia. Ancillary studies - previously performed on section of tumor ([id number] / [id number]). ER ? positive (>95%, strong) RI ? positive (variable, 0-11%, weak) Her2 bhavani ? negative (1+) Microcalcifications ? not identified Clinical history - Please make reference to previous specimen ([id number]) left breast, ultrasound-guided needle core biopsy with diagnosis of invasive ductal carcinoma. ? PATHOLOGIC STAGE: pT2 pN1a(sn) Mx The above summary is in compliance with [employer] [place] [employer] (CAP) Cancer Protocols Checklist and [place] Joint Committee on Cancer (AJCC), Staging Manual, 8th Ed. ? COMMENT A. The lymph nodes are almost completely involved by the metastatic tumor. The largest lymph node measures 3.6 cm in greatest dimension. The largest focus of metastasis measures 3.6 cm in greatest dimension. Focal extranodal distention is noted which measures 0.4 cm in greatest dimension. ? Underwent completion axillary dissection 05/27/2017. ? Pathology: MICROSCOPIC DIAGNOSIS A. Left axillary contents, regional lymphadenectomy: Isolated metastatic tumor cells in one of seven lymph nodes. B. ?Dog ear,? excision: Skin with attached fibrofatty tissue with reactive and reparative change and suture granulomas. No evidence of malignancy. ? COMMENT Case has been reviewed in consultation with Dr. Skinner who concurs with the above diagnosis. ? MICROSCOPIC DESCRIPTION Slides are reviewed. A. The largest lymph node contains benign histiocytic proliferation, fibrosis and minimal chronic inflammation consistent with previous biopsy and resection ([id number]). ? Immunohistochemistry ([id number]) supports the presence of isolated metastatic tumor cells in one out of seven lymph nodes. ? Current therapy: 1) Adjuvant AC followed by Taxol. I have done really well. Minimal side effects. Appetite:good Energy level:fair-good Denies fevers. Mouth:denies sores Resp:denies cough or sob Cardiac:denies chest pain/palpitations GI:denies abd pain Extrem:denies pain Neuro:I get some zings to my feet-like today walking across the parking lot. They are intermittent. Heme:denies bleeding The ROS is otherwise negative. Past medical history, appointments, medications, allergies reviewed. No changes. EXAM: LMP 02/04/2010 See VS and nrsg notes under infusion encounter today. APPEARANCE Well appearing, alert, in no acute distress, well- hydrated, well nourished. EXTREMITIES No edema NEURO Awake, alert and oriented x 3, Normal gait and No involuntary motions. ASSESSMENT/PLAN: 1. Malignant neoplasm of upper-outer quadrant of left breast in female, estrogen receptor positive (HCC) - ICD9: 174.4, V86.0, ICD10: C50.412, Z17.0 pT2 (3.5 cm; grade 3; no LVI) pN1a (3 of 3 SLNs) MX ER/RI positive, HER2 negative invasive ductal carcinoma the left breast. - Last taxol treatment today. - Pt. has tolerated chemotherapy very well. - Follow up with Dr. Zepeda as scheduled for radiation treatment. - Reviewed SCP with pt. and spouse. Copies given. - Follow up with Dr. Pantoja in one month with CBC. - Pt. aware to call office with any questions/concerns. The patient indicates understanding of these issues and agrees with the plan. Ria Dee APRN.FORGING MACHINE OPERATOR Referring Provider: HARPREET PANTOJA [[id number]] Allergies As of Date: 10/31/2017 Noted Allergy Reaction IV DYE (IODINATED CONTRAST- ORAL *05/21/2006 4 - Hives SHELLFISH 05/21/2006 4 - Hives VICTOZA (LIRAGLUTIDE) 03/30/2017 5 - Intolerance Date Reviewed: 10/31/2017 Reviewed by: Ria (Mani) Luiz - Fully Assessed Primary Visit Diagnosis:Malignant neoplasm of upper-outer quadrant of left breast in female, estrogen receptor positive (HCC) [C50.412, Z17.0] Follow-up and Disposition History Recorded Prescriptions as of 10/31/2017 Sig: DIPHENHYDRAMINE 25 MG-ACETAMI* Take 1 tablet by mouth at bed* LORAZEPAM 1 MG TABLET Take 1 mg by mouth every 8 ho* ONDANSETRON HCL 8 MG TABLET Take 1 tablet by mouth every * ASCORBIC ACID (VITAMIN C) 500* Take 500 mg by mouth as neede* LIDOCAINE-PRILOCAINE 2.5 %-2.* Apply 1 application to affect* MELATONIN 3 MG TABLET Take 6 mg by mouth daily at b* OTC NUTRITIONAL SUPPLEMENT calm day IBUPROFEN 200 MG TABLET Take 600 mg by mouth twice da* METFORMIN ER 500 MG TABLET,EX* Take 500 mg by mouth twice da* SUMATRIPTAN 100 MG TABLET Take 100 mg by mouth as neede* OMEPRAZOLE 40 MG CAPSULE,CARLYN* Take 40 mg by mouth once adia* [id number] 5* Take 1 capsule by mouth once * TRAMADOL 50 MG TABLET Take 50 mg by mouth three ilzeth* * FLUOXETINE 20 MG CAPSULE Take 20 mg by mouth once adia* * MULTIVITAMIN TABLET Take one(1) tablet daily. 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 Encounter Status:Closed by RIA DEE CNP on 10/31/17 PROGRESS Observed: 10/31/2017 Status: COMPLETED Source: [place] 10:50 AM [facility] REPOSITORY O ID: [id number] Author: Ria Dee Service: (none) Author Type: Nurse Practitioner Type: Progress Notes Filed: 10/31/2017 12:08 PM Note Text: Chief Complaint No chief complaint on file. HPI: Jessica Rodriguez is a 62 year old female who presents here today for SCP/breast cancer. Per Dr. Pantoja's previous note: H/o diabetes and psoriatic arthritis. ? Patient had a screening mammogram performed on 03/22/2017 (only 3 months past annual date of previous study). There was a new mass identified in the left breast as being indeterminate. Further studies were recommended. ? Diagnostic imaging done on 03/28/2017 demonstrated a 3 cm irregular mass in left breast consistent with carcinoma and was highly suggestive of malignancy. ? Underwent core needle biopsy on 2017. ? Pathology: Left breast, ultrasound-guided needle core biopsy: Invasive ductal carcinoma, nuclear grade 3 (1 cm in greatest length). See comment. ? ER (clone 6F11) >95%, strong RI (clone 16/1E2) variable, 0-11%, weak Her-2Neu (clone CB11) 1+ ? Underwent left-sided mastectomy with left sentinel axillary lymph node biopsy along with prophylactic right-sided mastectomy on 04/20/2017. ? Pathology: FROZEN SECTION DIAGNOSIS A. Left axillary sentinel lymph nodes, biopsy: Three out of three lymph nodes positive for macrometastatic carcinoma. ? MICROSCOPIC DIAGNOSIS A. Left axillary sentinel lymph nodes, biopsy: Three out of three lymph nodes positive for macrometastatic carcinoma. See comment. B. Left breast, mastectomy: Invasive ductal carcinoma. C. Right breast: Focal intraductal hyperplasia without atypia. Negative for carcinoma in the sections examined. D. Extra skin and tissue left breast: Negative for carcinoma. ? INVASIVE BREAST CANCER SUMMARY: (Including specimen A AND B) Specimen ? total breast (including nipple and skin). Procedure ? total mastectomy (including nipple and skin). Lymph node sampling ? sentinel lymph nodes Specimen integrity ? single intact specimen. Specimen laterality - left Tumor size ? 3.5 x 3.3 x 3 cm Tumor focality ? single focus of invasive carcinoma Macroscopic and Microscopic extent of tumor: Skin ? invasive carcinoma does not invade into the dermis or epidermis. Nipple ? ductal carcinoma in situ does not nipple epidermis. Skeletal muscle ? no skeletal muscle present. Ductal carcinoma in situ (DCIS) ? no ductal carcinoma in situ is present. Lobular carcinoma in situ (LCIS) ? not identified Histologic type of invasive carcinoma ? invasive ductal carcinoma (no special type). Histologic Grade ([place] grade): Glandular/tubular differentiation - score 3 Nuclear pleomorphism - score 3 Mitotic count ? score 2 Overall grade - 3 (score of 8) Margins - Margins uninvolved by invasive carcinoma. The invasive carcinoma is 1.5 cm away from the closest posterior margin. Treatment effect: Response to presurgical (neoadjuvant) therapy - no known presurgical therapy. Lymph-Vascular invasion ? not identified Dermal lymph-vascular invasion - not identified Lymph nodes: Number of sentinel lymph nodes examined - 3 Total number of lymph nodes examined (sentinel and nonsentinel) - 3 Number of lymph nodes with macrometastases - 3 Number of lymph nodes with micrometastases and isolated tumor cells - 0 Size of largest metastatic deposit ? 3.6 cm Extranodal extension ? present, focal (0.4 cm in greatest dimension) Distance metastasis ? not applicable Additional pathologic findings ? fibrocystic changes and intraductal hyperplasia without atypia. Ancillary studies - previously performed on section of tumor ([id number] / [id number]). ER ? positive (>95%, strong) RI ? positive (variable, 0-11%, weak) Her2 bhavani ? negative (1+) Microcalcifications ? not identified Clinical history - Please make reference to previous specimen ([id number]) left breast, ultrasound-guided needle core biopsy with diagnosis of invasive ductal carcinoma. ? PATHOLOGIC STAGE: pT2 pN1a(sn) Mx The above summary is in compliance with [employer] [place] [employer] (CAP) Cancer Protocols Checklist and [place] Joint Committee on Cancer (AJCC), Staging Manual, 8th Ed. ? COMMENT A. The lymph nodes are almost completely involved by the metastatic tumor. The largest lymph node measures 3.6 cm in greatest dimension. The largest focus of metastasis measures 3.6 cm in greatest dimension. Focal extranodal distention is noted which measures 0.4 cm in greatest dimension. ? Underwent completion axillary dissection 05/27/2017. ? Pathology: MICROSCOPIC DIAGNOSIS A. Left axillary contents, regional lymphadenectomy: Isolated metastatic tumor cells in one of seven lymph nodes. B. ?Dog ear,? excision: Skin with attached fibrofatty tissue with reactive and reparative change and suture granulomas. No evidence of malignancy. ? COMMENT Case has been reviewed in consultation with Dr. Skinner who concurs with the above diagnosis. ? MICROSCOPIC DESCRIPTION Slides are reviewed. A. The largest lymph node contains benign histiocytic proliferation, fibrosis and minimal chronic inflammation consistent with previous biopsy and resection ([id number]). ? Immunohistochemistry ([id number]) supports the presence of isolated metastatic tumor cells in one out of seven lymph nodes. ? Current therapy: 1) Adjuvant AC followed by Taxol. I have done really well. Minimal side effects. Appetite:good Energy level:fair-good Denies fevers. Mouth:denies sores Resp:denies cough or sob Cardiac:denies chest pain/palpitations GI:denies abd pain Extrem:denies pain Neuro:I get some zings to my feet-like today walking across the parking lot. They are intermittent. Heme:denies bleeding The ROS is otherwise negative. Past medical history, appointments, medications, allergies reviewed. No changes. EXAM: LMP 02/04/2010 See VS and nrsg notes under infusion encounter today. APPEARANCE Well appearing, alert, in no acute distress, well-hydrated, well nourished. EXTREMITIES No edema NEURO Awake, alert and oriented x 3, Normal gait and No involuntary motions. ASSESSMENT/PLAN: 1. Malignant neoplasm of upper-outer quadrant of left breast in female, estrogen receptor positive (HCC) - ICD9: 174.4, V86.0, ICD10: C50.412, Z17.0 pT2 (3.5 cm; grade 3; no LVI) pN1a (3 of 3 SLNs) MX ER/RI positive, HER2 negative invasive ductal carcinoma the left breast. - Last taxol treatment today. - Pt. has tolerated chemotherapy very well. - Follow up with Dr. Zepeda as scheduled for radiation treatment. - Reviewed SCP with pt. and spouse. Copies given. - Follow up with Dr. Pantoja in one month with CBC. - Pt. aware to call office with any questions/concerns. The patient indicates understanding of these issues and agrees with the plan. Ria Dee APRN.FORGING MACHINE OPERATOR PROGRESS Observed: 10/30/2017 Status: COMPLETED Source: [place] 10:31 AM [facility] REPOSITORY HNO ID: [id number] Author: Harpreet Pantoja Service: (none) Author Type: Physician Type: Progress Notes Filed: 10/30/2017 11:22 AM Note Text: Diagnosis: 1) Breast cancer. HPI: The patient is a 62-year-old female was a past medical history significant for diabetes and psoriatic arthritis. Patient had a screening mammogram performed on 03/22/2017 (only 3 months past annual date of previous study). There was a new mass identified in the left breast as being indeterminate. Further studies were recommended. Diagnostic imaging done on 03/28/2017 demonstrated a 3 cm irregular mass in left breast consistent with carcinoma and was highly suggestive of malignancy. Underwent core needle biopsy on 2017. Pathology: Left breast, ultrasound-guided needle core biopsy: Invasive ductal carcinoma, nuclear grade 3 (1 cm in greatest length). See comment. ER (clone 6F11) >95%, strong RI (clone 16/1E2) variable, 0-11%, weak Her-2Neu (clone CB11) 1+ Underwent left-sided mastectomy with left sentinel axillary lymph node biopsy along with prophylactic right-sided mastectomy on 04/20/2017. Pathology: FROZEN SECTION DIAGNOSIS A. Left axillary sentinel lymph nodes, biopsy: Three out of three lymph nodes positive for macrometastatic carcinoma. MICROSCOPIC DIAGNOSIS A. Left axillary sentinel lymph nodes, biopsy: Three out of three lymph nodes positive for macrometastatic carcinoma. See comment. B. Left breast, mastectomy: Invasive ductal carcinoma. C. Right breast: Focal intraductal hyperplasia without atypia. Negative for carcinoma in the sections examined. D. Extra skin and tissue left breast: Negative for carcinoma. INVASIVE BREAST CANCER SUMMARY: (Including specimen A AND B) Specimen ? total breast (including nipple and skin). Procedure ? total mastectomy (including nipple and skin). Lymph node sampling ? sentinel lymph nodes Specimen integrity ? single intact specimen. Specimen laterality - left Tumor size ? 3.5 x 3.3 x 3 cm Tumor focality ? single focus of invasive carcinoma Macroscopic and Microscopic extent of tumor: Skin ? invasive carcinoma does not invade into the dermis or epidermis. Nipple ? ductal carcinoma in situ does not nipple epidermis. Skeletal muscle ? no skeletal muscle present. Ductal carcinoma in situ (DCIS) ? no ductal carcinoma in situ is present. Lobular carcinoma in situ (LCIS) ? not identified Histologic type of invasive carcinoma ? invasive ductal carcinoma (no special type). Histologic Grade ([place] grade): Glandular/tubular differentiation - score 3 Nuclear pleomorphism - score 3 Mitotic count ? score 2 Overall grade - 3 (score of 8) Margins - Margins uninvolved by invasive carcinoma. The invasive carcinoma is 1.5 cm away from the closest posterior margin. Treatment effect: Response to presurgical (neoadjuvant) therapy - no known presurgical therapy. Lymph-Vascular invasion ? not identified Dermal lymph-vascular invasion - not identified Lymph nodes: Number of sentinel lymph nodes examined - 3 Total number of lymph nodes examined (sentinel and nonsentinel) - 3 Number of lymph nodes with macrometastases - 3 Number of lymph nodes with micrometastases and isolated tumor cells - 0 Size of largest metastatic deposit ? 3.6 cm Extranodal extension ? present, focal (0.4 cm in greatest dimension) Distance metastasis ? not applicable Additional pathologic findings ? fibrocystic changes and intraductal hyperplasia without atypia. Ancillary studies - previously performed on section of tumor ([id number] / [id number]). ER ? positive (>95%, strong) RI ? positive (variable, 0-11%, weak) Her2 bhavani ? negative (1+) Microcalcifications ? not identified Clinical history - Please make reference to previous specimen ([id number]) left breast, ultrasound-guided needle core biopsy with diagnosis of invasive ductal carcinoma. PATHOLOGIC STAGE: pT2 pN1a(sn) Mx The above summary is in compliance with [employer] [place] [employer] (CAP) Cancer Protocols Checklist and [place] Joint Committee on Cancer (AJCC), Staging Manual, 8th Ed. COMMENT A. The lymph nodes are almost completely involved by the metastatic tumor. The largest lymph node measures 3.6 cm in greatest dimension. The largest focus of metastasis measures 3.6 cm in greatest dimension. Focal extranodal distention is noted which measures 0.4 cm in greatest dimension. Underwent completion axillary dissection 05/27/2017. Pathology: MICROSCOPIC DIAGNOSIS A. Left axillary contents, regional lymphadenectomy: Isolated metastatic tumor cells in one of seven lymph nodes. B. ?Dog ear,? excision: Skin with attached fibrofatty tissue with reactive and reparative change and suture granulomas. No evidence of malignancy. COMMENT Case has been reviewed in consultation with Dr. Skinner who concurs with the above diagnosis. MICROSCOPIC DESCRIPTION Slides are reviewed. A. The largest lymph node contains benign histiocytic proliferation, fibrosis and minimal chronic inflammation consistent with previous biopsy and resection ([id number]). Immunohistochemistry ([id number]) supports the presence of isolated metastatic tumor cells in one out of seven lymph nodes. Current therapy: 1) Adjuvant AC followed by Taxol. Presents for ongoing oncologic management. Interim history: Doing well overall. Occasional numbness of fingers, but not constant. Legs feel weak and heavy and ache off and on. No symptoms of cardiomyopathy including chest pain/pressure, palpitations, shortness of breath at rest or with exertion, lower extremity swelling/edema, PND or orthopnea. PMH, medications and allergies personally reviewed by me today. Any changes documented in appropriate section. ROS: Constitutional: Denies episodes of fever and night sweats. Neuro: Denies OWENS, vertigo, dizziness and imbalance. HEENT: No recent change in voice, vision or hearing. Resp: Denies cough, wheeze and hemoptysis. CVS: See above. : Denies dysuria or gross hematuria. No symptoms of bladder outlet obstruction. Endo: Denies hot flashes. Denies polyuria and polydipsia. Denies heat and cold intolerance. Musculoskeletal: OA of shoulders and knees. Psoriatic arthritis affects hands and wrists--good control with Otezla. Derm: Psoriatic plaques resolved with Otezla. Heme: Denies unusual bleeding and unexplained bruising. Psych: Normal mood. PHYSICAL EXAM: Vitals: Blood pressure 122/59, pulse 78, temperature 37.2 ?C (99 ?F), weight 85 kg (187 lb 8 oz), last menstrual period 02/04/2010. Well-appearing and in no acute distress. EYES: Sclerae are anicteric bilaterally. ENT: Oral mucosa is unremarkable. NECK: Supple. LYMPHATIC: There is no palpable cervical, supraclavicular, axillary adenopathy. RESPIRATORY: Inspiratory breath sounds are of normal intensity in all peters. No rales, wheezes or rhonchi. CARDIOVASCULAR: Rhythm is regular. Normal intensity S1/S2. There is no gallop or murmur. ABDOMEN: The abdomen is nondistended. No organomegaly. No tenderness. Extremities: No swelling or edema now. SKIN: No jaundice. NEUROLOGIC: sheeter operator II-XII are grossly intact. No focal motor weakness. MUSCULOSKELETAL: No muscle wasting. 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 -pT2 (3.5 cm; grade 3; no LVI) pN1a (3 of 3 SLNs) MX ER/RI positive, HER2 negative invasive ductal carcinoma the left breast. -Staging form in problem list previously completed. -She continues to tolerate adjuvant chemotherapy very well thus far. -Again addressed the role of aromatase inhibitor therapy. Consider MonarchE trial. Discussed in detail today. Plan: -Continue chemotherapy. -Radiation for axillary radiation following chemotherapy. -Will need SCP following radiation therapy. (E04.9) Goiter, nodular Assessment: -Was found to have multinodular goiter on workup for breast cancer. Some nodules over 1 cm. Plan: -Repeat ultrasound the thyroid and potential biopsy pending results. Harpreet Pantoja DO CNOVSP Observed: 10/30/2017 Status: COMPLETED Source: [place] 10:30 AM [facility] REPOSITORY Visit (SP) Office ([place]) JESSICA RODRIGUEZ ([id number]) 1955 F Date Time Provider Department 10/30/17 10:30 AM HARPREET PANTOJA During your visit today, we recorded the following information about you: Temperature Pulse Blood pressure Weight 99 degrees 78/minute 122/[address] LPN, LPN 10/30/2017 10:41 AM Signed Est . Pt. , discuss recent lab results, tx tomorrow LISA Fung DO 10/30/2017 11:22 AM Signed Diagnosis: 1) Breast cancer. HPI: The patient is a 62-year-old female was a past medical history significant for diabetes and psoriatic arthritis. Patient had a screening mammogram performed on 03/22/2017 (only 3 months past annual date of previous study). There was a new mass identified in the left breast as being indeterminate. Further studies were recommended. Diagnostic imaging done on 03/28/2017 demonstrated a 3 cm irregular mass in left breast consistent with carcinoma and was highly suggestive of malignancy. Underwent core needle biopsy on 2017. Pathology: Left breast, ultrasound-guided needle core biopsy: Invasive ductal carcinoma, nuclear grade 3 (1 cm in greatest length). See comment. ER (clone 6F11) >95%, strong RI (clone 16/1E2) variable, 0-11%, weak Her-2Neu (clone CB11) 1+ Underwent left-sided mastectomy with left sentinel axillary lymph node biopsy along with prophylactic right-sided mastectomy on 04/20/2017. Pathology: FROZEN SECTION DIAGNOSIS A. Left axillary sentinel lymph nodes, biopsy: Three out of three lymph nodes positive for macrometastatic carcinoma. MICROSCOPIC DIAGNOSIS A. Left axillary sentinel lymph nodes, biopsy: Three out of three lymph nodes positive for macrometastatic carcinoma. See comment. B. Left breast, mastectomy: Invasive ductal carcinoma. C. Right breast: Focal intraductal hyperplasia without atypia. Negative for carcinoma in the sections examined. D. Extra skin and tissue left breast: Negative for carcinoma. INVASIVE BREAST CANCER SUMMARY: (Including specimen A AND B) Specimen ? total breast (including nipple and skin). Procedure ? total mastectomy (including nipple and skin). Lymph node sampling ? sentinel lymph nodes Specimen integrity ? single intact specimen. Specimen laterality - left Tumor size ? 3.5 x 3.3 x 3 cm Tumor focality ? single focus of invasive carcinoma Macroscopic and Microscopic extent of tumor: Skin ? invasive carcinoma does not invade into the dermis or epidermis. Nipple ? ductal carcinoma in situ does not nipple epidermis. Skeletal muscle ? no skeletal muscle present. Ductal carcinoma in situ (DCIS) ? no ductal carcinoma in situ is present. Lobular carcinoma in situ (LCIS) ? not identified Histologic type of invasive carcinoma ? invasive ductal carcinoma (no special type). Histologic Grade ([place] grade): Glandular/tubular differentiation - score 3 Nuclear pleomorphism - score 3 Mitotic count ? score 2 Overall grade - 3 (score of 8) Margins - Margins uninvolved by invasive carcinoma. The invasive carcinoma is 1.5 cm away from the closest posterior margin. Treatment effect: Response to presurgical (neoadjuvant) therapy - no known presurgical therapy. Lymph-Vascular invasion ? not identified Dermal lymph-vascular invasion - not identified Lymph nodes: Number of sentinel lymph nodes examined - 3 Total number of lymph nodes examined (sentinel and nonsentinel) - 3 Number of lymph nodes with macrometastases - 3 Number of lymph nodes with micrometastases and isolated tumor cells - 0 Size of largest metastatic deposit ? 3.6 cm Extranodal extension ? present, focal (0.4 cm in greatest dimension) Distance metastasis ? not applicable Additional pathologic findings ? fibrocystic changes and intraductal hyperplasia without atypia. Ancillary studies - previously performed on section of tumor ([id number] / [id number]). ER ? positive (>95%, strong) RI ? positive (variable, 0-11%, weak) Her2 bhavani ? negative (1+) Microcalcifications ? not identified Clinical history - Please make reference to previous specimen ([id number]) left breast, ultrasound-guided needle core biopsy with diagnosis of invasive ductal carcinoma. PATHOLOGIC STAGE: pT2 pN1a(sn) Mx The above summary is in compliance with [employer] [place] [employer] (CAP) Cancer Protocols Checklist and [place] [employer] Committee on Cancer (AJCC), Staging Manual, 8th Ed. COMMENT A. The lymph nodes are almost completely involved by the metastatic tumor. The largest lymph node measures 3.6 cm in greatest dimension. The largest focus of metastasis measures 3.6 cm in greatest dimension. Focal extranodal distention is noted which measures 0.4 cm in greatest dimension. Underwent completion axillary dissection 05/27/2017. Pathology: MICROSCOPIC DIAGNOSIS A. Left axillary contents, regional lymphadenectomy: Isolated metastatic tumor cells in one of seven lymph nodes. B. ?Dog ear,? excision: Skin with attached fibrofatty tissue with reactive and reparative change and suture granulomas. No evidence of malignancy. COMMENT Case has been reviewed in consultation with Dr. Skinner who concurs with the above diagnosis. MICROSCOPIC DESCRIPTION Slides are reviewed. A. The largest lymph node contains benign histiocytic proliferation, fibrosis and minimal chronic inflammation consistent with previous biopsy and resection ([id number]). Immunohistochemistry ([id number]) supports the presence of isolated metastatic tumor cells in one out of seven lymph nodes. Current therapy: 1) Adjuvant AC followed by Taxol. Presents for ongoing oncologic management. Interim history: Doing well overall. Occasional numbness of fingers, but not constant. Legs feel weak and heavy and ache off and on. No symptoms of cardiomyopathy including chest pain/pressure, palpitations, shortness of breath at rest or with exertion, lower extremity swelling/edema, PND or orthopnea. PMH, medications and allergies personally reviewed by me today. Any changes documented in appropriate section. ROS: Constitutional: Denies episodes of fever and night sweats. Neuro: Denies OWENS, vertigo, dizziness and imbalance. HEENT: No recent change in voice, vision or hearing. Resp: Denies cough, wheeze and hemoptysis. CVS: See above. : Denies dysuria or gross hematuria. No symptoms of bladder outlet obstruction. Endo: Denies hot flashes. Denies polyuria and polydipsia. Denies heat and cold intolerance. Musculoskeletal: OA of shoulders and knees. Psoriatic arthritis affects hands and wrists--good control with Otezla. Derm: Psoriatic plaques resolved with Otezla. Heme: Denies unusual bleeding and unexplained bruising. Psych: Normal mood. PHYSICAL EXAM: Vitals: Blood pressure 122/59, pulse 78, temperature 37.2 ?C (99 ?F), weight 85 kg (187 lb 8 oz), last menstrual period 02/04/2010. Well-appearing and in no acute distress. EYES: Sclerae are anicteric bilaterally. ENT: Oral mucosa is unremarkable. NECK: Supple. LYMPHATIC: There is no palpable cervical, supraclavicular, axillary adenopathy. RESPIRATORY: Inspiratory breath sounds are of normal intensity in all peters. No rales, wheezes or rhonchi. CARDIOVASCULAR: Rhythm is regular. Normal intensity S1/S2. There is no gallop or murmur. ABDOMEN: The abdomen is nondistended. No organomegaly. No tenderness. Extremities: No swelling or edema now. SKIN: No jaundice. NEUROLOGIC: sheeter operator II-XII are grossly intact. No focal motor weakness. MUSCULOSKELETAL: No muscle wasting. 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 -pT2 (3.5 cm; grade 3; no LVI) pN1a (3 of 3 SLNs) MX ER/RI positive, HER2 negative invasive ductal carcinoma the left breast. -Staging form in problem list previously completed. -She continues to tolerate adjuvant chemotherapy very well thus far. -Again addressed the role of aromatase inhibitor therapy. Consider MonarchE trial. Discussed in detail today. Plan: -Continue chemotherapy. -Radiation for axillary radiation following chemotherapy. -Will need SCP following radiation therapy. (E04.9) Goiter, nodular Assessment: -Was found to have multinodular goiter on workup for breast cancer. Some nodules over 1 cm. Plan: -Repeat ultrasound the thyroid and potential biopsy pending results. Harpreet Pantoja DO Referring Provider: HARPREET PANTOJA [[id number]] Allergies As of Date: 10/30/2017 Noted Allergy Reaction IV DYE (IODINATED CONTRAST- ORAL *05/21/2006 4 - Hives SHELLFISH 05/21/2006 4 - Hives VICTOZA (LIRAGLUTIDE) 03/30/2017 5 - Intolerance Date Reviewed: 10/30/2017 Reviewed by: Kathi Alberts (Banquet Set Up Person) LISA St - Fully Assessed Reason for Visit: Established Patient [175] Primary Visit Diagnosis:Malignant neoplasm of upper-outer quadrant of left breast in female, estrogen receptor positive (HCC) [C50.412, Z17.0] Other Visit Diagnoses:Metastatic cancer to axillary lymph nodes (HCC) [C77.3] Goiter, nodular [E04.9] Order(s):US THYROID/PARATHYROID [[id number]] Order #: [id number] FUTURE Follow-up and Disposition History Recorded Prescriptions as of 10/30/2017 Sig: DIPHENHYDRAMINE 25 MG-ACETAMI* Take 1 tablet by mouth at bed* LORAZEPAM 1 MG TABLET Take 1 mg by mouth every 8 ho* ONDANSETRON HCL 8 MG TABLET Take 1 tablet by mouth every * ASCORBIC ACID (VITAMIN C) 500* Take 500 mg by mouth as neede* LIDOCAINE-PRILOCAINE 2.5 %-2.* Apply 1 application to affect* MELATONIN 3 MG TABLET Take 6 mg by mouth daily at b* IBUPROFEN 200 MG TABLET Take 600 mg by mouth twice da* METFORMIN ER 500 MG TABLET,EX* Take 500 mg by mouth twice da* SUMATRIPTAN 100 MG TABLET Take 100 mg by mouth as neede* OMEPRAZOLE 40 MG CAPSULE,CARLYN* Take 40 mg by mouth once adia* ZUDKSWDXNC-OHSWZPL-DUGURTOL 5* Take 1 capsule by mouth once * TRAMADOL 50 MG TABLET Take 50 mg by mouth three lizeth* * FLUOXETINE 20 MG CAPSULE Take 20 mg by mouth once adia* * MULTIVITAMIN TABLET Take one(1) tablet daily. * CALCIUM + D 600 MG (1,500 MG)* Take one(1) tablet twice adia* * TYLENOL EXTRA STRENGTH 500 MG* Take two(2) tablets every six* OTC NUTRITIONAL SUPPLEMENT Problem List As Of Date 10/30/2017 Noted Resolved Postmenopausal bleeding [N95.0] INVALID FOR* Ovarian cyst [N83.209] INVALID FOR* Malignant neoplasm of upper-outer quadrant of l*INVALID FOR* 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 Visit Notes: >> LISA Fung Lpn Oct 30, 2017 10:19 AM Status: Signed Est . Pt. , discuss recent lab results, tx tomorrow Kathi St LPN Encounter Status:Closed by HARPREET PANTOJA DO on 10/30/17 [place] ABS GR + CBC Collected: 10/30/2017 Status: F Source: [place] 10:17 AM [facility] REPOSITORY TYPE CODE TESTS RESULT OUT OF REFERENCE UNITS RANGE LAB WWBC 3.70-11.00 k/uL [place] WBC 5.09 LAB WRBC 3.90-5.20 m/uL [place] RBC 3.57 LAB WHGB 11.5-15.5 g/dL [place] Hemoglobin 10.7 LAB WHCT 36.0-46.0 % Low [place] Hematocrit 32.8 LAB WMCV 80.0-100.0 fL [place] MCV 91.9 LAB WMCH 26.0-34.0 pg [place] MCH 30.0 LAB WMCHC 30.5-36.0 g/dL [place] MCHC 32.6 LAB WRDW 11.5-15.0 % [place] RDW 14.4 LAB WPLT 150-400 k/uL [place] Platelet Cnt 282 LAB WMPV 9.0-12.7 fL [place] MPV 8.7 Result Comment: Test performed at: [facility] [place], [address] [place], [place] [address] [place] [address]. LAB ABGRAN 1.45-7.50 k/uL [place] Gran 3.67 Count COMP METABOLIC PANEL Collected: 10/30/2017 Status: F Source: [place] 10:17 AM [facility] REPOSITORY TYPE CODE TESTS RESULT OUT OF REFERENCE UNITS RANGE LAB TP 6.3-8.0 g/dL Protein, Total 6.6 LAB ALB 3.9-4.9 g/dL Albumin 4.1 LAB CA 8.5-10.2 mg/dL Calcium, Total 9.5 LAB TBIL 0.2-1.3 mg/dL Bilirubin, Total 0.2 LAB ALKP 32-117 U/L Alkaline Phosphatase 64 LAB AST 13-35 U/L AST 22 LAB GLU 74-99 mg/dL Glucose High 113 Result Comment: The [place] [employer] (ADA) provides guidance for cutoff values for fasting glucose and random glucose. The ADA defines fasting as no caloric intake for at least 8 hours. Fas ting plasma glucose results between 100 to 125 mg/dL indicate increased risk for diabetes (prediabetes). Fasting plasma glucose results greater than or equal to 126 mg/dL meet the criteria for diagnosis of diabetes. In the absence of unequivocal hyperglycemia, results should be confirmed by repeat testing. In a patient with classic symptoms of hyperglycemia or hyperglycemic crisis, random plasma glucose results greater than or equal to 200 mg/dL meet the criteria for diagnosis of diabetes. Reference: Standards of Medical Care in Diabetes 2016, [place] [employer]. Diabetes Care. 2016.39(Suppl 1). LAB BUN 7-21 mg/dL BUN 10 LAB CRET 0.58-0.96 mg/dL Creatinine 0.74 LAB NA 136-144 mmol/L Sodium 141 LAB K 3.7-5.1 mmol/L Potassium 4.6 LAB CL 97-105 mmol/L Chloride 103 LAB CO2 22-30 mmol/L CO2 22 LAB AGAP 9-18 mmol/L Anion Gap 16 LAB ALT 7-38 U/L ALT 16 LAB GFRAA eGFR- Amer. >60 LAB GFRNAA . eGFR-All Other Races >60 Result Comment: eGFR (Estimated GFR) Units of measure: mL/min/1.73 meters squared eGFR is derived from the reexpressed MDRD Study equation using the following parameters: serum creatinine, age, gender and race. The creatinine assay has been calibrated to be traceable to IDMS. An eGFR <60 mL/min/1.73m2 for >3 months is consistent with chronic kidney disease. Refer to KDOQI guidelines for clinical interpretation. In patients with unstable renal function, e.g. those with acute kidney injury, the eGFR may not accurately reflect actual GFR. Performed By: #### CMP #### [facility] [place] [facility] [address] [place], [place] [address] COMP METABOLIC PANEL Collected: 10/24/2017 Status: F Source: [place] 1:16 PM [facility] REPOSITORY TYPE CODE TESTS RESULT OUT OF REFERENCE UNITS RANGE LAB TP 6.3-8.0 g/dL Protein, Total 6.4 LAB ALB 3.9-4.9 g/dL Albumin 4.2 LAB CA 8.5-10.2 mg/dL Calcium, Total 8.9 LAB TBIL 0.2-1.3 mg/dL Bilirubin, Total 0.2 LAB ALKP 32-117 U/L Alkaline Phosphatase 64 LAB AST 13-35 U/L AST 20 LAB GLU 74-99 mg/dL Glucose High 138 Result Comment: The [place] Diabetes Association (ADA) provides guidance for cutoff values for fasting glucose and random glucose. The ADA defines fasting as no caloric intake for at least 8 hours. Fas ting plasma glucose results between 100 to 125 mg/dL indicate increased risk for diabetes (prediabetes). Fasting plasma glucose results greater than or equal to 126 mg/dL meet the criteria for diagnosis of diabetes. In the absence of unequivocal hyperglycemia, results should be confirmed by repeat testing. In a patient with classic symptoms of hyperglycemia or hyperglycemic crisis, random plasma glucose results greater than or equal to 200 mg/dL meet the criteria for diagnosis of diabetes. Reference: Standards of Medical Care in Diabetes 2016, [place] [employer]. Diabetes Care. 2016.39(Suppl 1). LAB BUN 7-21 mg/dL BUN 9 LAB CRET 0.58-0.96 mg/dL Creatinine 0.65 LAB NA 136-144 mmol/L Sodium 140 LAB K 3.7-5.1 mmol/L Potassium 4.2 LAB CL 97-105 mmol/L Chloride 103 LAB CO2 22-30 mmol/L CO2 26 LAB AGAP 9-18 mmol/L Anion Gap 11 LAB ALT 7-38 U/L ALT 19 LAB GFRAA eGFR- Amer. >60 LAB GFRNAA . eGFR-All Other Races >60 Result Comment: eGFR (Estimated GFR) Units of measure: mL/min/1.73 meters squared eGFR is derived from the reexpressed MDRD Study equation using the following parameters: serum creatinine, age, gender and race. The creatinine assay has been calibrated to be traceable to IDMS. An eGFR <60 mL/min/1.73m2 for >3 months is consistent with chronic kidney disease. Refer to KDOQI guidelines for clinical interpretation. In patients with unstable renal function, e.g. those with acute kidney injury, the eGFR may not accurately reflect actual GFR. Performed By: #### CMP #### [facility] [place] [facility] [address] [place], [place] [address] [place] ABS GR + CBC Collected: 10/24/2017 Status: F Source: [place] 1:15 PM [facility] REPOSITORY TYPE CODE TESTS RESULT OUT OF REFERENCE UNITS RANGE LAB WWBC 3.70-11.00 k/uL [place] WBC 5.04 LAB WRBC 3.90-5.20 m/uL [place] RBC 3.46 LAB WHGB 11.5-15.5 g/dL [place] Hemoglobin 10.3 LAB WHCT 36.0-46.0 % Low [place] Hematocrit 31.6 LAB WMCV 80.0-100.0 fL [place] MCV 91.3 LAB WMCH 26.0-34.0 pg [place] MCH 29.8 LAB WMCHC 30.5-36.0 g/dL [place] MCHC 32.6 LAB WRDW 11.5-15.0 % [place] RDW 14.0 LAB WPLT 150-400 k/uL [place] Platelet Cnt 270 LAB WMPV 9.0-12.7 fL [place] MPV 8.3 Result Comment: Test performed at: [facility], [address] [place] [address]. LAB ABGRAN 1.45-7.50 k/uL [place] Gran 3.44 Count COMP METABOLIC PANEL Collected: 10/18/2017 Status: F Source: [place] 10:20 AM [facility] REPOSITORY TYPE CODE TESTS RESULT OUT OF REFERENCE UNITS RANGE LAB TP 6.3-8.0 g/dL Protein, Total 6.4 LAB ALB 3.9-4.9 g/dL Albumin 4.2 LAB CA 8.5-10.2 mg/dL Calcium, Total 9.6 LAB TBIL 0.2-1.3 mg/dL Bilirubin, Total 0.3 LAB ALKP 32-117 U/L Alkaline Phosphatase 67 LAB AST 13-35 U/L AST 28 LAB GLU 74-99 mg/dL Glucose High 149 Result Comment: The [place] Diabetes Association (ADA) provides guidance for cutoff values for fasting glucose and random glucose. The ADA defines fasting as no caloric intake for at least 8 hours. Fas ting plasma glucose results between 100 to 125 mg/dL indicate increased risk for diabetes (prediabetes). Fasting plasma glucose results greater than or equal to 126 mg/dL meet the criteria for diagnosis of diabetes. In the absence of unequivocal hyperglycemia, results should be confirmed by repeat testing. In a patient with classic symptoms of hyperglycemia or hyperglycemic crisis, random plasma glucose results greater than or equal to 200 mg/dL meet the criteria for diagnosis of diabetes. Reference: Standards of Medical Care in Diabetes 2016, [place] [employer]. Diabetes Care. 2016.39(Suppl 1). LAB BUN 7-21 mg/dL BUN 12 LAB CRET 0.58-0.96 mg/dL Creatinine 0.65 LAB NA 136-144 mmol/L Sodium 138 LAB K 3.7-5.1 mmol/L Potassium 4.5 LAB CL 97-105 mmol/L Chloride 97 LAB CO2 22-30 mmol/L CO2 23 LAB AGAP 9-18 mmol/L Anion Gap 18 LAB ALT 7-38 U/L ALT 26 LAB GFRAA eGFR- Amer. >60 LAB GFRNAA . eGFR-All Other Races >60 Result Comment: eGFR (Estimated GFR) Units of measure: mL/min/1.73 meters squared eGFR is derived from the reexpressed MDRD Study equation using the following parameters: serum creatinine, age, gender and race. The creatinine assay has been calibrated to be traceable to IDMS. An eGFR <60 mL/min/1.73m2 for >3 months is consistent with chronic kidney disease. Refer to KDOQI guidelines for clinical interpretation. In patients with unstable renal function, e.g. those with acute kidney injury, the eGFR may not accurately reflect actual GFR. Performed By: #### CMP #### [facility] [place] [facility] [address] [place], [place] [address] [place] ABS GR + CBC Collected: 10/18/2017 Status: F Source: [place] 10:19 AM [facility] REPOSITORY TYPE CODE TESTS RESULT OUT OF REFERENCE UNITS RANGE LAB WWBC 3.70-11.00 k/uL [place] WBC 5.44 LAB WRBC 3.90-5.20 m/uL [place] RBC 3.56 LAB WHGB 11.5-15.5 g/dL [place] Hemoglobin 10.7 LAB WHCT 36.0-46.0 % Low [place] Hematocrit 32.9 LAB WMCV 80.0-100.0 fL [place] MCV 92.4 LAB WMCH 26.0-34.0 pg [place] MCH 30.1 LAB WMCHC 30.5-36.0 g/dL [place] MCHC 32.5 LAB WRDW 11.5-15.0 % [place] RDW 14.5 LAB WPLT 150-400 k/uL [place] Platelet Cnt 277 LAB WMPV 9.0-12.7 fL [place] MPV 8.3 Result Comment: Test performed at: [facility], [address] [place] [address] Rd[address] [place] [address]. LAB ABGRAN 1.45-7.50 k/uL [place] Gran 3.72 Count COMP METABOLIC PANEL Collected: 10/11/2017 Status: F Source: [place] 1:40 PM [facility] REPOSITORY TYPE CODE TESTS RESULT OUT OF REFERENCE UNITS RANGE LAB TP 6.3-8.0 g/dL [place] Protein, Total 6.1 LAB ALB 3.9-4.9 g/dL Albumin 4.0 LAB CA 8.5-10.2 mg/dL Calcium, Total 8.7 LAB TBIL 0.2-1.3 mg/dL Bilirubin, Total 0.2 LAB ALKP 32-117 U/L Alkaline Phosphatase 62 LAB AST 13-35 U/L AST 19 LAB GLU 74-99 mg/dL Glucose High 173 Result Comment: The [place] Diabetes Association (ADA) provides guidance for cutoff values for fasting glucose and random glucose. The ADA defines fasting as no caloric intake for at least 8 hours. Fas ting plasma glucose results between 100 to 125 mg/dL indicate increased risk for diabetes (prediabetes). Fasting plasma glucose results greater than or equal to 126 mg/dL meet the criteria for diagnosis of diabetes. In the absence of unequivocal hyperglycemia, results should be confirmed by repeat testing. In a patient with classic symptoms of hyperglycemia or hyperglycemic crisis, random plasma glucose results greater than or equal to 200 mg/dL meet the criteria for diagnosis of diabetes. Reference: Standards of Medical Care in Diabetes 2016, [place] [employer]. Diabetes Care. 2016.39(Suppl 1). LAB BUN 7-21 mg/dL BUN 10 LAB CRET 0.58-0.96 mg/dL Creatinine 0.65 LAB NA 136-144 mmol/L Sodium 137 LAB K 3.7-5.1 mmol/L Potassium 4.1 LAB CL 97-105 mmol/L Chloride 97 LAB CO2 22-30 mmol/L CO2 24 LAB AGAP 9-18 mmol/L Anion Gap 16 LAB ALT 7-38 U/L ALT 18 LAB GFRAA eGFR- Amer. >60 LAB GFRNAA . eGFR-All Other Races >60 Result Comment: eGFR (Estimated GFR) Units of measure: mL/min/1.73 meters squared eGFR is derived from the reexpressed MDRD Study equation using the following parameters: serum creatinine, age, gender and race. The creatinine assay has been calibrated to be traceable to IDMS. An eGFR <60 mL/min/1.73m2 for >3 months is consistent with chronic kidney disease. Refer to KDOQI guidelines for clinical interpretation. In patients with unstable renal function, e.g. those with acute kidney injury, the eGFR may not accurately reflect actual GFR. Performed By: #### CMP #### [facility] [place] [facility] [address] [place], [place] [address] [place] ABS GR + CBC Collected: 10/11/2017 Status: F Source: [place] 1:39 PM [facility] REPOSITORY TYPE CODE TESTS RESULT OUT OF REFERENCE UNITS RANGE LAB WWBC 3.70-11.00 k/uL [place] WBC 4.48 LAB WRBC 3.90-5.20 m/uL [place] RBC 3.29 LAB WHGB 11.5-15.5 g/dL [place] Hemoglobin 10.0 LAB WHCT 36.0-46.0 % [place] Hematocrit 30.5 LAB WMCV 80.0-100.0 fL [place] MCV 92.7 LAB WMCH 26.0-34.0 pg [place] MCH 30.4 LAB WMCHC 30.5-36.0 g/dL [place] MCHC 32.8 LAB WRDW 11.5-15.0 % [place] RDW 14.6 LAB WPLT 150-400 k/uL [place] Platelet Cnt 262 LAB WMPV 9.0-12.7 fL [place] MPV 8.7 Result Comment: Test performed at: [facility] [place], [address] [place] [address]. LAB ABGRAN 1.45-7.50 k/uL Abs[place] Gran 2.93 Count PROGRESS Observed: 10/09/2017 Status: COMPLETED Source: [place] 8:26 AM [facility] REPOSITORY HNO ID: [id number] Author: Fauzia Lucio (Sw) Service: (none) Author Type: Architectural Intern Type: Progress Notes Filed: 10/09/2017 8:27 AM Note Text: SOCIAL WORK FOLLOW UP NOTE: [facility] Date of service: October 09, 2017 Jessica Rodriguez is being seen for a follow up social work visit. Today's visit includes: patient not present TOPICS ADDRESSED: Disability; NIRANJAN faxed completed paperwork to [employer] per patient request. Copy of paperwork has been made to send to scanning and patient can molded goods spot picker originals later this week. PLAN: Continue follow up as needed F/U APPOINTMENT: MONA Huston CNSW Observed: 10/09/2017 Status: COMPLETED Source: [place] 12:00 AM [facility] REPOSITORY Social Work (BRETT) JESSICA RODRIGUEZ ([id number]) 1955 F Date Time Provider Department 10/09/17 FAUZIA LUCIO (SW) During your visit today, we recorded the following information about you: MONA Mclean 10/09/2017 8:27 AM Signed SOCIAL WORK FOLLOW UP NOTE: [facility] Date of service: October 09, 2017 Jessica Rodriguez is being seen for a follow up social work visit. Today's visit includes: patient not present TOPICS ADDRESSED: Disability; NIRANJAN faxed completed paperwork to [employer] per patient request. Copy of paperwork has been made to send to scanning and patient can molded goods spot picker originals later this week. PLAN: Continue follow up as needed F/U APPOINTMENT: MONA Huston Allergies As of Date: 10/09/2017 Noted Allergy Reaction IV DYE (IODINATED CONTRAST- ORAL *05/21/2006 4 - Hives SHELLFISH 05/21/2006 4 - Hives VICTOZA (LIRAGLUTIDE) 03/30/2017 5 - Intolerance Date Reviewed: 10/05/2017 Reviewed by: Nikky (Rn) Hanna RN - Fully Assessed Reason for Visit: Social Work Services [507] Prescriptions as of 10/09/2017 Sig: DIPHENHYDRAMINE 25 MG-ACETAMI* Take 1 tablet by mouth at bed* LORAZEPAM 1 MG TABLET Take 1 mg by mouth every 8 ho* ONDANSETRON HCL 8 MG TABLET Take 1 tablet by mouth every * ASCORBIC ACID (VITAMIN C) 500* Take 500 mg by mouth as neede* LIDOCAINE-PRILOCAINE 2.5 %-2.* Apply 1 application to affect* MELATONIN 3 MG TABLET Take 6 mg by mouth daily at b* OTC NUTRITIONAL SUPPLEMENT calm day IBUPROFEN 200 MG TABLET Take 600 mg by mouth twice da* METFORMIN ER 500 MG TABLET,EX* Take 1,000 mg by mouth once d* SUMATRIPTAN 100 MG TABLET Take 100 mg by mouth as neede* OMEPRAZOLE 40 MG CAPSULE,ACRLYN* Take 40 mg by mouth once adia* OAWCSSNMIX-EDGFEIQ-NVFRCILG 5* Take 1 capsule by mouth once * TRAMADOL 50 MG TABLET Take 50 mg by mouth three lizeth* * FLUOXETINE 20 MG CAPSULE Take 20 mg by mouth once adia* * MULTIVITAMIN TABLET Take one(1) tablet daily. * CALCIUM + D 600 MG (1,500 MG)* Take one(1) tablet twice adia* * TYLENOL EXTRA STRENGTH 500 MG* Take two(2) tablets every six* Problem List As Of Date 10/09/2017 Noted Resolved Postmenopausal bleeding [N95.0] INVALID FOR* Ovarian cyst [N83.209] INVALID FOR* Malignant neoplasm of upper-outer quadrant of l*INVALID FOR* 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 Encounter Status:Closed by FAUZIA LUCIO on 10/09/17 PROGRESS Observed: 10/08/2017 Status: COMPLETED Source: [place] 4:05 PM [facility] REPOSITORY HNO ID: [id number] Author: Fauzia Lucio (Sw) Service: (none) Author Type: Architectural Intern Type: Progress Notes Filed: 10/08/2017 4:06 PM Note Text: Social Work Problem Referral Note INFORMATION/REFERRAL : Jessica Rodriguez 62 year old female was referred by [facility] for the following reason(s): disability planning PERSONS INTERVIEWED: patient INTERVENTION: Information AND Referral Service Co-ordination Affect/Mood: The patient is noted as appropriate IDENTIFIED PROBLEMS/NEEDS: Disability Intervention/Referral to be provided:Arrangements made for continuity of care IMPRESSION/PLAN: NIRANJAN met with patient to review disability paperwork. SW completed and provided to doctor to review/sign. SW will fax to [employer] provided on forms when completed. Patient will molded goods spot picker originals on . F/U APPOINTMENT: 10/11/17 MONA Mclean CNSW Observed: 10/08/2017 Status: COMPLETED Source: [place] 12:00 AM [facility] REPOSITORY Social Work (BRETT) JESSICA RODRIGUEZ ([id number]) 1955 F Date Time Provider Department 10/08/17 FAUZIA LUCIO (SW) During your visit today, we recorded the following information about you: MONA [place]clean 10/08/2017 4:06 PM Signed Social Work Problem Referral Note INFORMATION/REFERRAL : Jessica Castillo Ermasanyarobert 62 year old female was referred by [facility] for the following reason(s): disability planning PERSONS INTERVIEWED: patient INTERVENTION: Information AND Referral Service Co-ordination Affect/Mood: The patient is noted as appropriate IDENTIFIED PROBLEMS/NEEDS: Disability Intervention/Referral to be provided:Arrangements made for continuity of care IMPRESSION/PLAN: SW met with patient to review disability paperwork. SW completed and provided to doctor to review/sign. [facility] when completed. Patient will molded goods spot picker originals on . F/U APPOINTMENT: 10/11/17 MONA [place]clean Allergies As of Date: 10/08/2017 Noted Allergy Reaction IV DYE (IODINATED CONTRAST- ORAL *05/21/2006 4 - Hives SHELLFISH 05/21/2006 4 - Hives VICTOZA (LIRAGLUTIDE) 03/30/2017 5 - Intolerance Date Reviewed: 10/05/2017 Reviewed by: Nikky (Rn) Hanna RN - Fully Assessed Reason for Visit: Social Work Services [507] Prescriptions as of 10/08/2017 Sig: DIPHENHYDRAMINE 25 MG-ACETAMI* Take 1 tablet by mouth at bed* LORAZEPAM 1 MG TABLET Take 1 mg by mouth every 8 ho* ONDANSETRON HCL 8 MG TABLET Take 1 tablet by mouth every * ASCORBIC ACID (VITAMIN C) 500* Take 500 mg by mouth as neede* LIDOCAINE-PRILOCAINE 2.5 %-2.* Apply 1 application to affect* MELATONIN 3 MG TABLET Take 6 mg by mouth daily at b* OTC NUTRITIONAL SUPPLEMENT day IBUPROFEN 200 MG TABLET Take 600 mg by mouth twice da* METFORMIN ER 500 MG TABLET,EX* Take 1,000 mg by mouth once d* SUMATRIPTAN 100 MG TABLET Take 100 mg by mouth as neede* OMEPRAZOLE 40 MG CAPSULE,CARLYN* Take 40 mg by mouth once adia* JKIHZEBXCO-WWHPKWI-LEILMEKA 5* Take 1 capsule by mouth once * TRAMADOL 50 MG TABLET Take 50 mg by mouth three lizeth* * FLUOXETINE 20 MG CAPSULE Take 20 mg by mouth once adia* * MULTIVITAMIN TABLET Take one(1) tablet daily. 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 Encounter Status:Closed by FAUZIA LUCIO on 10/08/17 PROGRESS Observed: 10/07/2017 Status: COMPLETED Source: [place] 7:50 PM [facility] [place] REPOSITORY HNO ID: [id number] Author: Bonita Zepeda Service: (none) Author Type: Physician Type: Progress Notes Filed: 10/09/2017 9:59 AM Note Text: Radiation Oncology - New Patient/Consult Note PATIENT NAME: Jessica Rodriguez PATIENT REQUESTING PROVIDER: Harpreet Pantoja DO DIAGNOSIS: Stage III, T2N2, invasive ductal carcinoma of the left breast s/p left mastectomy and sentinel node biopsy and axillary node dissection. It's ER positive (>95%, strong), RI positive (variable, weak, 0-11%), and Her2/bhavani 1+. She is now undergoing chemotherapy. HPI: 62 year old female who presents with above diagnosis, for an opinion regarding the role of radiation therapy in the management of the patient's disease. Final recommendations will be communicated back to the requesting physician by way of the shared medical record, or letter to requesting physician via US mail. 62 year old woman who had an abnormal screening mammogram on 03/22/17. It showed a new mass in the left breast central to the nipple middle depth. Diagnostic mammogram and US on 03/28/17 confirmed a 3 cm irregular mass in the left breast consistent with carcinoma. There is also axillary adenopathy on US. ? US guided core needle biopsy of the left breast lesion on 04/05/17 showed grade 3 invasive ductal carcinoma. It's ER positive (>95%, strong), RI positive (variable, weak, 0-11%), and Her2/bhavani 1+. She underwent left breast mastectomy and sentinel node biopsy on 04/20/17. Pathology showed invasive ductal carcinoma measuring 3.5 cm x 3.3 cm x 3 cm. Surgical margin was negative with the closest margin of 1.5 cm from the posterior margin. There was no LVI. It's a grade 3 tumor. Three sentinel nodes were involved with macrometastases measuring upto 3.6 cm. There was focal extranodal invasion upto 0.4 cm. Prophylactic right breast mastectomy was also done and there was no malignancy there. ? Staging CT chest/abodmen/pelvis and bone scan on 05/09/17 showed no definite evidence of metastasis. There were Left axillary enlarged lymph nodes and A few thyroid nodules. MRI brain on 05/11/17 was negative for metastasis.She underwent axillary node dissection on 05/24/17 and it showed isolated metastatic tumor cells in one out of seven axillary nodes. She is now undergoing chemotherapy with AC followed by Taxol. 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 PAST SURGICAL HISTORY Procedure Laterality Date - COLONOSCOP W/ OR W/O [facility] SPEC 2000 Colonoscopy - COLONOSCOP W/ OR W/O [facility]SH SPEC 12/09/2012 Colonoscopy - EGD W/O OR W/BRUSH/WASH 12/09/2012 EGD - EXCIS BREAST LESION Left breast - HYSTEROSCOPY WBX WWO D AND C ANDOR POLYPECTOMY 2011 PMB- polyps - LIGATE FALLOPIAN TUBE - MASTECTOMY, RADICAL Bilateral 2017 - PAST SURGICAL HISTORY OF cyst removed from back - S PORTACATH [id number] 05/08/2017 right sided portacath [place] FAMILY HISTORY Problem Relation Age of Onset - Osteoporosis Mother - Arthritis Mother - GI Mother IBS - Diabetes Father - Heart Father - Lipids Father - Breast Cancer Maternal Grandmother - Prostate Cancer Maternal Grandfather - Osteoporosis Sister - Hypertension Sister Social History Marital status: Spouse name: Niles Years of education: 16 Number of children: 0 Occupational History Occupation Employer Comment [employer]* [employer] [employer] [facility]* Social History Main Topics Smoking status: Passive Smoke Exposure - Never Smoker Packs/day: 0.00 Years: 0.00 Types: Cigarettes Smokeless tobacco: Never Used Comment: smokes socially Alcohol use: No Drug use: No Sexual activity: Not Currently Partners with: Male control/protection: Tubal Ligation COMPLETE REVIEW OF SYSTEMS: GENERAL: Negative for weight loss, fevers, chills, or night sweats. HEENT: Negative for sudden vision or hearing changes. NECK: Negative for masses in the neck. RESPIRATORY: Negative for cough or shortness of breath. CARDIAC: Negative for chest pain, palpitations, murmurs, or syncopal episodes. GI: nausea controlled with Zofran. Diarrhea controlled with Imodium. : Negative for dysuria, hematuria, urgency, frequency or incontinence. MUSCULOSKELETAL: chronic back pain. 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 HEMATOLOGIC: Negative for bleeding or easy bruising. SKIN: Negative for rashes or other skin changes. PHYSICAL EXAM: VS: BP 148/63 Pulse 77 Temp 36.5 ?C (97.7 ?F) (Temporal Artery) Resp 20 Wt 87.5 kg (193 lb) LMP 02/04/2010 SpO2 99% BMI 36.67 kg/m? KPS: 90 General Appearance: Alert and oriented. No acute distress. HEENT: NCAT. Sclera anicteric. EOMI. Neck: Normal ROM. Chest: No respiratory distress. Lungs clear to auscultation bilaterally. Heart: Regular rate and rhythm. Breasts: s/p bilateral mastectomy. There is no suspicious skin changes or chest wall nodules. Abdomen: Soft. Nontender. Nondistended. Musculoskeletal: No edema. Normal ROM in extremities. Neuro: No gross focal deficits. Skin: No rashes noted Lymphatics: No palpable cervical or supraclavicular or axillary adenopathy. RADIOLOGY/LABORATORY DATA: see HPI ASSESSMENT AND PLAN: 62 year old woman with stage III, T2N2, invasive ductal carcinoma of the left breast s/p left mastectomy and sentinel node biopsy and axillary node dissection. It's ER positive (>95%, strong), RI positive (variable, weak, 0-11%), and Her2/bhavani 1+. She is now undergoing chemotherapy. She had three positive macrometastases with extranodal extension up to 0.4 cm. She had one additional node involved with isolated tumor cells. She had a grade 3 tumor. I recommend post-mastectomy radiation treatment to the left chest wall and regional lymphatics to improve overall survival. I explained the rationale, benefits, alternative management options and potential complications of radiation treatment to the patient and she understands and agrees to proceed. It was explained and understood that other personnel such as radiation therapists, vinyl flooring installer, and physicists will participate in planning and delivery of radiation treatment. Permanent tattoo adan will be placed to aid with positioning for daily treatment and the patient consented. Patient will have a simulation procedure after chemotherapy. Thank you very much for allowing us to participate in her care. Signed by: Bonita Zepeda MD cc: Ruth Clark DO ([facility]) [phone] [facility] [address] [place] [address] Harpreet Pantoja DO [address] [facility] [address] CNOV Observed: 10/05/2017 Status: COMPLETED Source: [place] 9:30 AM [facility] REPOSITORY Office Visit (RADTWS) MICHAELJESSICA Castillo ([id number]) 1955 F Date Time Provider Department 10/05/17 9:30 AM BONITA ZEPEDA During your visit today, we recorded the following information about you: Temperature Pulse Respiration Blood pressure 97.7 degrees 77/minute 20/minute 148/63 Weight 87.5 kg Nikky Briones RN, RN 10/05/2017 9:29 AM Signed Radiation Therapy - Nursing Note (Follow-up) PATIENT NAME: Jessica Rodriguez PATIENT October 05, 2017 [facility] FACILITY/LOCATION: [place] Reason for visit: Follow up to discuss treatment options. Subjective Data No c/o Additional Data Do you want to see a Cable Driller? No Nursing Assessment Fatigue: increased fatigue over baseline but not altering normal activities Appetite: good Weight Gain/Loss: No Last 6 Encounter Wt Readings: Date: Wt: 10/05/2017 87.5 kg (193 lb) 10/02/2017 84.6 kg (186 lb 8 oz) 10/02/2017 84.6 kg (186 lb 8 oz) 09/27/2017 86 kg (189 lb 8 oz) 09/20/2017 86.6 kg (191 lb) 09/13/2017 85.5 kg (188 lb 8 oz) Bowel Function: normal bowel movements Bone Pain: none Focused Assessment did not have radiation yet Was approved? did not have tablet SIGNED by: MONET Clemens MD 10/09/2017 9:59 AM Signed Radiation Oncology - New Patient/Consult Note PATIENT NAME: Jessica Rodriguez PATIENT REQUESTING PROVIDER: Harpreet Pantoja DO DIAGNOSIS: Stage III, T2N2, invasive ductal carcinoma of the left breast s/p left mastectomy and sentinel node biopsy and axillary node dissection. It's ER positive (>95%, strong), RI positive (variable, weak, 0-11%), and Her2/bhavani 1+. She is now undergoing chemotherapy. HPI: 62 year old female who presents with above diagnosis, for an opinion regarding the role of radiation therapy in the management of the patient's disease. Final recommendations will be communicated back to the requesting physician by way of the shared medical record, or letter to requesting physician via US mail. 62 year old woman who had an abnormal screening mammogram on 03/22/17. It showed a new mass in the left breast central to the nipple middle depth. Diagnostic mammogram and US on 03/28/17 confirmed a 3 cm irregular mass in the left breast consistent with carcinoma. There is also axillary adenopathy on US. ? US guided core needle biopsy of the left breast lesion on 04/05/17 showed grade 3 invasive ductal carcinoma. It's ER positive (>95%, strong), RI positive (variable, weak, 0-11%), and Her2/bhavani 1+. She underwent left breast mastectomy and sentinel node biopsy on 04/20/17. Pathology showed invasive ductal carcinoma measuring 3.5 cm x 3.3 cm x 3 cm. Surgical margin was negative with the closest margin of 1.5 cm from the posterior margin. There was no LVI. It's a grade 3 tumor. Three sentinel nodes were involved with macrometastases measuring upto 3.6 cm. There was focal extranodal invasion upto 0.4 cm. Prophylactic right breast mastectomy was also done and there was no malignancy there. ? Staging CT chest/abodmen/pelvis and bone scan on 05/09/17 showed no definite evidence of metastasis. There were Left axillary enlarged lymph nodes and A few thyroid nodules. MRI brain on 05/11/17 was negative for metastasis.She underwent axillary node dissection on 05/24/17 and it showed isolated metastatic tumor cells in one out of seven axillary nodes. She is now undergoing chemotherapy with AC followed by Taxol. 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 PAST SURGICAL HISTORY Procedure Laterality Date - COLONOSCOP W/ OR W/O [facility] SPEC 2000 Colonoscopy - COLONOSCOP W/ OR W/O BRSH SPEC 12/09/2012 Colonoscopy - EGD W/O OR W/BRUSH/WASH 12/09/2012 EGD - EXCIS BREAST LESION Left breast - HYSTEROSCOPY WBX WWO D AND C ANDOR POLYPECTOMY 2011 PMB- polyps - LIGATE FALLOPIAN TUBE - MASTECTOMY, RADICAL Bilateral 2017 - PAST SURGICAL HISTORY OF cyst removed from back - S PORTACATH [id number] 05/08/2017 right sided portacath [place] FAMILY HISTORY Problem Relation Age of Onset - Osteoporosis Mother - Arthritis Mother - GI Mother IBS - Diabetes Father - Heart Father - Lipids Father - Breast Cancer Maternal Grandmother - Prostate Cancer Maternal Grandfather - Osteoporosis Sister - Hypertension Sister Social History Marital status: Spouse name: Niles Years of education: 16 Number of children: 0 Occupational History Occupation Employer Comment [employer]* [employer] [facility] [employer]* Social History Main Topics Smoking status: Passive Smoke Exposure - Never Smoker Packs/day: 0.00 Years: 0.00 Types: Cigarettes Smokeless tobacco: Never Used Comment: smokes socially Alcohol use: No Drug use: No Sexual activity: Not Currently Partners with: Male control/protection: Tubal Ligation COMPLETE REVIEW OF SYSTEMS: GENERAL: Negative for weight loss, fevers, chills, or night sweats. HEENT: Negative for sudden vision or hearing changes. NECK: Negative for masses in the neck. RESPIRATORY: Negative for cough or shortness of breath. CARDIAC: Negative for chest pain, palpitations, murmurs, or syncopal episodes. GI: nausea controlled with Zofran. Diarrhea controlled with Imodium. : Negative for dysuria, hematuria, urgency, frequency or incontinence. MUSCULOSKELETAL: chronic back pain. 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 HEMATOLOGIC: Negative for bleeding or easy bruising. SKIN: Negative for rashes or other skin changes. PHYSICAL EXAM: VS: BP 148/63 Pulse 77 Temp 36.5 ?C (97.7 ?F) (Temporal Artery) Resp 20 Wt 87.5 kg (193 lb) LMP 02/04/2010 SpO2 99% BMI 36.67 kg/m? KPS: 90 General Appearance: Alert and oriented. No acute distress. HEENT: NCAT. Sclera anicteric. EOMI. Neck: Normal ROM. Chest: No respiratory distress. Lungs clear to auscultation bilaterally. Heart: Regular rate and rhythm. Breasts: s/p bilateral mastectomy. There is no suspicious skin changes or chest wall nodules. Abdomen: Soft. Nontender. Nondistended. Musculoskeletal: No edema. Normal ROM in extremities. Neuro: No gross focal deficits. Skin: No rashes noted Lymphatics: No palpable cervical or supraclavicular or axillary adenopathy. RADIOLOGY/LABORATORY DATA: see HPI ASSESSMENT AND PLAN: 62 year old woman with stage III, T2N2, invasive ductal carcinoma of the left breast s/p left mastectomy and sentinel node biopsy and axillary node dissection. It's ER positive (>95%, strong), RI positive (variable, weak, 0-11%), and Her2/bhavani 1+. She is now undergoing chemotherapy. She had three positive macrometastases with extranodal extension up to 0.4 cm. She had one additional node involved with isolated tumor cells. She had a grade 3 tumor. I recommend post-mastectomy radiation treatment to the left chest wall and regional lymphatics to improve overall survival. I explained the rationale, benefits, alternative management options and potential complications of radiation treatment to the patient and she understands and agrees to proceed. It was explained and understood that other personnel such as radiation therapists, vinyl flooring installer, and physicists will participate in planning and delivery of radiation treatment. Permanent tattoo adan will be placed to aid with positioning for daily treatment and the patient consented. Patient will have a simulation procedure after chemotherapy. Thank you very much for allowing us to participate in her care. Signed by: Bonita Zepeda MD cc: Ruth Clark DO ([facility]) [phone] [facility] [address] [place] [address] Harpreet Pantoja DO [address] [facility] [address] Referring Provider: HARPREET PANTOJA [[id number]] Allergies As of Date: 10/05/2017 Noted Allergy Reaction IV DYE (IODINATED CONTRAST- ORAL *05/21/2006 4 - Hives SHELLFISH 05/21/2006 4 - Hives VICTOZA (LIRAGLUTIDE) 03/30/2017 5 - Intolerance Date Reviewed: 10/05/2017 Reviewed by: Nikky (Rn) MONET Briones - Fully Assessed Reason for Visit: Recheck [92] Primary Visit Diagnosis:Malignant neoplasm of upper-outer quadrant of left breast in female, estrogen receptor positive (HCC) [C50.412, Z17.0] Prescriptions as of 10/05/2017 Sig: DIPHENHYDRAMINE 25 MG-ACETAMI* Take 1 tablet by mouth at bed* LORAZEPAM 1 MG TABLET Take 1 mg by mouth every 8 ho* ONDANSETRON HCL 8 MG TABLET Take 1 tablet by mouth every * ASCORBIC ACID (VITAMIN C) 500* Take 500 mg by mouth as neede* LIDOCAINE-PRILOCAINE 2.5 %-2.* Apply 1 application to affect* MELATONIN 3 MG TABLET Take 6 mg by mouth daily at b* OTC NUTRITIONAL SUPPLEMENT calm day IBUPROFEN 200 MG TABLET Take 600 mg by mouth twice da* METFORMIN ER 500 MG TABLET,EX* Take 1,000 mg by mouth once d* SUMATRIPTAN 100 MG TABLET Take 100 mg by mouth as neede* OMEPRAZOLE 40 MG CAPSULE,CARLYN* Take 40 mg by mouth once adia* [id number] 5* Take 1 capsule by mouth once * TRAMADOL 50 MG TABLET Take 50 mg by mouth three lizeth* * FLUOXETINE 20 MG CAPSULE Take 20 mg by mouth once adia* * MULTIVITAMIN TABLET Take one(1) tablet daily. 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 Visit Notes: >> Nikky (Monet) MONET Briones SunOct 05, 2017 9:28 AM Status: Signed Radiation Therapy - Nursing Note (Follow-up) PATIENT NAME: Jessica Rodriguez PATIENT October 05, 2017 [facility] FACILITY/LOCATION: [place] Reason for visit: Follow up to discuss treatment options. Subjective Data No c/o Additional Data Do you want to see a Cable Driller? No Nursing Assessment Fatigue: increased fatigue over baseline but not altering normal activities Appetite: good Weight Gain/Loss: No Last 6 Encounter Wt Readings: Date: Wt: 10/05/2017 87.5 kg (193 lb) 10/02/2017 84.6 kg (186 lb 8 oz) 10/02/2017 84.6 kg (186 lb 8 oz) 09/27/2017 86 kg (189 lb 8 oz) 09/20/2017 86.6 kg (191 lb) 09/13/2017 85.5 kg (188 lb 8 oz) Bowel Function: normal bowel movements Bone Pain: none Focused Assessment did not have radiation yet Was approved? did not have tablet SIGNED by: Nikky Briones RN Encounter Status:Closed by BONITA ZEPEDA MD on 10/09/17 PROGRESS Observed: 10/02/2017 Status: COMPLETED Source: [place] 10:59 AM [facility] [place] REPOSITORY O ID: [id number] Author: Harprete Pantoja Service: (none) Author Type: Physician Type: Progress Notes Filed: 10/02/2017 11:13 AM Note Text: Diagnosis: 1) Breast cancer. HPI: The patient is a 62-year-old female was a past medical history significant for diabetes and psoriatic arthritis. Patient had a screening mammogram performed on 03/22/2017 (only 3 months past annual date of previous study). There was a new mass identified in the left breast as being indeterminate. Further studies were recommended. Diagnostic imaging done on 03/28/2017 demonstrated a 3 cm irregular mass in left breast consistent with carcinoma and was highly suggestive of malignancy. Underwent core needle biopsy on 2017. Pathology: Left breast, ultrasound-guided needle core biopsy: Invasive ductal carcinoma, nuclear grade 3 (1 cm in greatest length). See comment. ER (clone [id number]) >95%, strong RI (clone 16/1E2) variable, 0-11%, weak Her-2Neu (clone CB11) 1+ Underwent left-sided mastectomy with left sentinel axillary lymph node biopsy along with prophylactic right-sided mastectomy on 04/20/2017. Pathology: FROZEN SECTION DIAGNOSIS A. Left axillary sentinel lymph nodes, biopsy: Three out of three lymph nodes positive for macrometastatic carcinoma. MICROSCOPIC DIAGNOSIS A. Left axillary sentinel lymph nodes, biopsy: Three out of three lymph nodes positive for macrometastatic carcinoma. See comment. B. Left breast, mastectomy: Invasive ductal carcinoma. C. Right breast: Focal intraductal hyperplasia without atypia. Negative for carcinoma in the sections examined. D. Extra skin and tissue left breast: Negative for carcinoma. INVASIVE BREAST CANCER SUMMARY: (Including specimen A AND B) Specimen ? total breast (including nipple and skin). Procedure ? total mastectomy (including nipple and skin). Lymph node sampling ? sentinel lymph nodes Specimen integrity ? single intact specimen. Specimen laterality - left Tumor size ? 3.5 x 3.3 x 3 cm Tumor focality ? single focus of invasive carcinoma Macroscopic and Microscopic extent of tumor: Skin ? invasive carcinoma does not invade into the dermis or epidermis. Nipple ? ductal carcinoma in situ does not nipple epidermis. Skeletal muscle ? no skeletal muscle present. Ductal carcinoma in situ (DCIS) ? no ductal carcinoma in situ is present. Lobular carcinoma in situ (LCIS) ? not identified Histologic type of invasive carcinoma ? invasive ductal carcinoma (no special type). Histologic Grade ([place] grade): Glandular/tubular differentiation - score 3 Nuclear pleomorphism - score 3 Mitotic count ? score 2 Overall grade - 3 (score of 8) Margins - Margins uninvolved by invasive carcinoma. The invasive carcinoma is 1.5 cm away from the closest posterior margin. Treatment effect: Response to presurgical (neoadjuvant) therapy - no known presurgical therapy. Lymph-Vascular invasion ? not identified Dermal lymph-vascular invasion - not identified Lymph nodes: Number of sentinel lymph nodes examined - 3 Total number of lymph nodes examined (sentinel and nonsentinel) - 3 Number of lymph nodes with macrometastases - 3 Number of lymph nodes with micrometastases and isolated tumor cells - 0 Size of largest metastatic deposit ? 3.6 cm Extranodal extension ? present, focal (0.4 cm in greatest dimension) Distance metastasis ? not applicable Additional pathologic findings ? fibrocystic changes and intraductal hyperplasia without atypia. Ancillary studies - previously performed on section of tumor ([id number] / [id number]). ER ? positive (>95%, strong) RI ? positive (variable, 0-11%, weak) Her2 bhavani ? negative (1+) Microcalcifications ? not identified Clinical history - Please make reference to previous specimen ([id number]) left breast, ultrasound-guided needle core biopsy with diagnosis of invasive ductal carcinoma. PATHOLOGIC STAGE: pT2 pN1a(sn) Mx The above summary is in compliance with [employer] of [place] [employer] (CAP) Cancer Protocols Checklist and [place] Joint Committee on Cancer (AJCC), Staging Manual, 8th Ed. COMMENT A. The lymph nodes are almost completely involved by the metastatic tumor. The largest lymph node measures 3.6 cm in greatest dimension. The largest focus of metastasis measures 3.6 cm in greatest dimension. Focal extranodal distention is noted which measures 0.4 cm in greatest dimension. Underwent completion axillary dissection 05/27/2017. Pathology: MICROSCOPIC DIAGNOSIS A. Left axillary contents, regional lymphadenectomy: Isolated metastatic tumor cells in one of seven lymph nodes. B. ?Dog ear,? excision: Skin with attached fibrofatty tissue with reactive and reparative change and suture granulomas. No evidence of malignancy. COMMENT Case has been reviewed in consultation with Dr. Skinner who concurs with the above diagnosis. MICROSCOPIC DESCRIPTION Slides are reviewed. A. The largest lymph node contains benign histiocytic proliferation, fibrosis and minimal chronic inflammation consistent with previous biopsy and resection ([id number]). Immunohistochemistry ([id number]) supports the presence of isolated metastatic tumor cells in one out of seven lymph nodes. Current therapy: 1) Adjuvant AC followed by Taxol. Presents for ongoing oncologic management. Evaluation for cycle #3. Interim history: She tolerated treatment well. She still has a mild irritative/itchy rash on the backs of the hands. She started using a steroid ointment that her had an is helping a lot. Otherwise she still has sporadic diarrhea but is controlled with Imodium. She takes Zofran prophylactically and has had no nausea. Dexamethasone has been omitted from her premedication regimen and she's not had any infusion reaction. Essentially no symptoms of constant neuropathy but she has some occasional numbness and tingling in the fingers and toes. No symptoms of cardiomyopathy including chest pain/pressure, palpitations, shortness of breath at rest or with exertion, lower extremity swelling/edema, PND or orthopnea. PMH, medications and allergies personally reviewed by me today. Any changes documented in appropriate section. ROS: Constitutional: Denies episodes of fever and night sweats. Neuro: Denies OWENS, vertigo, dizziness and imbalance. HEENT: No recent change in voice, vision or hearing. Resp: Denies cough, wheeze and hemoptysis. CVS: See above. : Denies dysuria or gross hematuria. No symptoms of bladder outlet obstruction. Endo: Denies hot flashes. Denies polyuria and polydipsia. Denies heat and cold intolerance. Musculoskeletal: OA of shoulders and knees. Psoriatic arthritis affects hands and wrists--good control with Otezla. Derm: Psoriatic plaques resolved with Otezla. Heme: Denies unusual bleeding and unexplained bruising. Psych: Normal mood. PHYSICAL EXAM: Vitals: Blood pressure 124/65, pulse 93, temperature 37.2 ?C (98.9 ?F), weight 84.6 kg (186 lb 8 oz), last menstrual period 02/04/2010. Well-appearing and in no acute distress. EYES: Sclerae are anicteric bilaterally. ENT: Oral mucosa is unremarkable. NECK: Supple. LYMPHATIC: There is no palpable cervical, supraclavicular, axillary adenopathy. RESPIRATORY: Inspiratory breath sounds are of normal intensity in all peters. No rales, wheezes or rhonchi. CARDIOVASCULAR: Rhythm is regular. Normal intensity S1/S2. There is no gallop or murmur. ABDOMEN: The abdomen is nondistended. No organomegaly. No tenderness. Extremities: No swelling or edema now. SKIN: She has mild changes of angular dugan lightest. A few small pustular lesions on the right side. NEUROLOGIC: sheeter operator II-XII are grossly intact. No focal motor weakness. MUSCULOSKELETAL: No muscle wasting. 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 -pT2 (3.5 cm; grade 3; no LVI) pN1a (3 of 3 SLNs) MX ER/RI positive, HER2 negative invasive ductal carcinoma the left breast. -Staging form in problem list previously completed. -She continues to tolerate adjuvant chemotherapy very well thus far. -Again addressed the role of aromatase inhibitor therapy. Consider clinical trial SWOG 1207 as disease is high risk (+LNs and grade 3 tumor). Plan: -Continue chemotherapy. -Radiation for axillary radiation following chemotherapy. Harpreet Pantoja DO CNOVSP Observed: 10/02/2017 Status: COMPLETED Source: [place] 10:50 AM [facility] REPOSITORY Visit (SP) Office ([place]) JESSICA RODRIGUEZ ([id number]) 1955 F Date Time Provider Department 10/02/17 10:50 AM HARPREET PANTOJA During your visit today, we recorded the following information about you: Temperature Pulse Blood pressure Weight 98.9 degrees 93/minute 124/[address] LPN, LPN 10/02/2017 11:03 AM Signed Est pt. Discuss recent labs, tx on Pt. States had diarrhea over weekend, took immodium, helped Also had lower back and leg pain over weekend, taking OTC meds , helps LISA Fung DO 10/02/2017 11:13 AM Signed Diagnosis: 1) Breast cancer. HPI: The patient is a 62-year-old female was a past medical history significant for diabetes and psoriatic arthritis. Patient had a screening mammogram performed on 03/22/2017 (only 3 months past annual date of previous study). There was a new mass identified in the left breast as being indeterminate. Further studies were recommended. Diagnostic imaging done on 03/28/2017 demonstrated a 3 cm irregular mass in left breast consistent with carcinoma and was highly suggestive of malignancy. Underwent core needle biopsy on 2017. Pathology: Left breast, ultrasound-guided needle core biopsy: Invasive ductal carcinoma, nuclear grade 3 (1 cm in greatest length). See comment. ER (clone [id number]) >95%, strong RI (clone 16/1E2) variable, 0-11%, weak Her-2Neu (clone CB11) 1+ Underwent left-sided mastectomy with left sentinel axillary lymph node biopsy along with prophylactic right-sided mastectomy on 04/20/2017. Pathology: FROZEN SECTION DIAGNOSIS A. Left axillary sentinel lymph nodes, biopsy: Three out of three lymph nodes positive for macrometastatic carcinoma. MICROSCOPIC DIAGNOSIS A. Left axillary sentinel lymph nodes, biopsy: Three out of three lymph nodes positive for macrometastatic carcinoma. See comment. B. Left breast, mastectomy: Invasive ductal carcinoma. C. Right breast: Focal intraductal hyperplasia without atypia. Negative for carcinoma in the sections examined. D. Extra skin and tissue left breast: Negative for carcinoma. INVASIVE BREAST CANCER SUMMARY: (Including specimen A AND B) Specimen ? total breast (including nipple and skin). Procedure ? total mastectomy (including nipple and skin). Lymph node sampling ? sentinel lymph nodes Specimen integrity ? single intact specimen. Specimen laterality - left Tumor size ? 3.5 x 3.3 x 3 cm Tumor focality ? single focus of invasive carcinoma Macroscopic and Microscopic extent of tumor: Skin ? invasive carcinoma does not invade into the dermis or epidermis. Nipple ? ductal carcinoma in situ does not nipple epidermis. Skeletal muscle ? no skeletal muscle present. Ductal carcinoma in situ (DCIS) ? no ductal carcinoma in situ is present. Lobular carcinoma in situ (LCIS) ? not identified Histologic type of invasive carcinoma ? invasive ductal carcinoma (no special type). Histologic Grade ([place] grade): Glandular/tubular differentiation - score 3 Nuclear pleomorphism - score 3 Mitotic count ? score 2 Overall grade - 3 (score of 8) Margins - Margins uninvolved by invasive carcinoma. The invasive carcinoma is 1.5 cm away from the closest posterior margin. Treatment effect: Response to presurgical (neoadjuvant) therapy - no known presurgical therapy. Lymph-Vascular invasion ? not identified Dermal lymph-vascular invasion - not identified Lymph nodes: Number of sentinel lymph nodes examined - 3 Total number of lymph nodes examined (sentinel and nonsentinel) - 3 Number of lymph nodes with macrometastases - 3 Number of lymph nodes with micrometastases and isolated tumor cells - 0 Size of largest metastatic deposit ? 3.6 cm Extranodal extension ? present, focal (0.4 cm in greatest dimension) Distance metastasis ? not applicable Additional pathologic findings ? fibrocystic changes and intraductal hyperplasia without atypia. Ancillary studies - previously performed on section of tumor ([id number] / [id number]). ER ? positive (>95%, strong) RI ? positive (variable, 0-11%, weak) Her2 bhavani ? negative (1+) Microcalcifications ? not identified Clinical history - Please make reference to previous specimen ([id number]) left breast, ultrasound-guided needle core biopsy with diagnosis of invasive ductal carcinoma. PATHOLOGIC STAGE: pT2 pN1a(sn) Mx The above summary is in compliance with [employer] [place] [employer] (CAP) Cancer Protocols Checklist and [place] Joint Committee on Cancer (AJCC), Staging Manual, 8th Ed. COMMENT A. The lymph nodes are almost completely involved by the metastatic tumor. The largest lymph node measures 3.6 cm in greatest dimension. The largest focus of metastasis measures 3.6 cm in greatest dimension. Focal extranodal distention is noted which measures 0.4 cm in greatest dimension. Underwent completion axillary dissection 05/27/2017. Pathology: MICROSCOPIC DIAGNOSIS A. Left axillary contents, regional lymphadenectomy: Isolated metastatic tumor cells in one of seven lymph nodes. B. ?Dog ear,? excision: Skin with attached fibrofatty tissue with reactive and reparative change and suture granulomas. No evidence of malignancy. COMMENT Case has been reviewed in consultation with Dr. Skinner who concurs with the above diagnosis. MICROSCOPIC DESCRIPTION Slides are reviewed. A. The largest lymph node contains benign histiocytic proliferation, fibrosis and minimal chronic inflammation consistent with previous biopsy and resection ([id number]). Immunohistochemistry ([id number]) supports the presence of isolated metastatic tumor cells in one out of seven lymph nodes. Current therapy: 1) Adjuvant AC followed by Taxol. Presents for ongoing oncologic management. Evaluation for cycle #3. Interim history: She tolerated treatment well. She still has a mild irritative/itchy rash on the backs of the hands. She started using a steroid ointment that her had an is helping a lot. Otherwise she still has sporadic diarrhea but is controlled with Imodium. She takes Zofran prophylactically and has had no nausea. Dexamethasone has been omitted from her premedication regimen and she's not had any infusion reaction. Essentially no symptoms of constant neuropathy but she has some occasional numbness and tingling in the fingers and toes. No symptoms of cardiomyopathy including chest pain/pressure, palpitations, shortness of breath at rest or with exertion, lower extremity swelling/edema, PND or orthopnea. PMH, medications and allergies personally reviewed by me today. Any changes documented in appropriate section. ROS: Constitutional: Denies episodes of fever and night sweats. Neuro: Denies OWENS, vertigo, dizziness and imbalance. HEENT: No recent change in voice, vision or hearing. Resp: Denies cough, wheeze and hemoptysis. CVS: See above. : Denies dysuria or gross hematuria. No symptoms of bladder outlet obstruction. Endo: Denies hot flashes. Denies polyuria and polydipsia. Denies heat and cold intolerance. Musculoskeletal: OA of shoulders and knees. Psoriatic arthritis affects hands and wrists--good control with Otezla. Derm: Psoriatic plaques resolved with Otezla. Heme: Denies unusual bleeding and unexplained bruising. Psych: Normal mood. PHYSICAL EXAM: Vitals: Blood pressure 124/65, pulse 93, temperature 37.2 ?C (98.9 ?F), weight 84.6 kg (186 lb 8 oz), last menstrual period 02/04/2010. Well-appearing and in no acute distress. EYES: Sclerae are anicteric bilaterally. ENT: Oral mucosa is unremarkable. NECK: Supple. LYMPHATIC: There is no palpable cervical, supraclavicular, axillary adenopathy. RESPIRATORY: Inspiratory breath sounds are of normal intensity in all peters. No rales, wheezes or rhonchi. CARDIOVASCULAR: Rhythm is regular. Normal intensity S1/S2. There is no gallop or murmur. ABDOMEN: The abdomen is nondistended. No organomegaly. No tenderness. Extremities: No swelling or edema now. SKIN: She has mild changes of angular dugan lightest. A few small pustular lesions on the right side. NEUROLOGIC: sheeter operator II-XII are grossly intact. No focal motor weakness. MUSCULOSKELETAL: No muscle wasting. 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 -pT2 (3.5 cm; grade 3; no LVI) pN1a (3 of 3 SLNs) MX ER/RI positive, HER2 negative invasive ductal carcinoma the left breast. -Staging form in problem list previously completed. -She continues to tolerate adjuvant chemotherapy very well thus far. -Again addressed the role of aromatase inhibitor therapy. Consider clinical trial SWOG 1207 as disease is high risk (+LNs and grade 3 tumor). Plan: -Continue chemotherapy. -Radiation for axillary radiation following chemotherapy. Harpreet Pantoja DO Referring Provider: HARPREET PANTOJA [[id number]] Allergies As of Date: 10/02/2017 Noted Allergy Reaction IV DYE (IODINATED CONTRAST- ORAL *05/21/2006 4 - Hives SHELLFISH 05/21/2006 4 - Hives VICTOZA (LIRAGLUTIDE) 03/30/2017 5 - Intolerance Date Reviewed: 10/02/2017 Reviewed by: Kathi Alberts (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) [C77.3] Follow-up and Disposition History Recorded Prescriptions as of 10/02/2017 Sig: DIPHENHYDRAMINE 25 MG-ACETAMI* Take 1 tablet by mouth at bed* LORAZEPAM 1 MG TABLET Take 1 mg by mouth every 8 ho* ONDANSETRON HCL 8 MG TABLET Take 1 tablet by mouth every * ASCORBIC ACID (VITAMIN C) 500* Take 500 mg by mouth as neede* LIDOCAINE-PRILOCAINE 2.5 %-2.* Apply 1 application to affect* OTC NUTRITIONAL SUPPLEMENT calm day IBUPROFEN 200 MG TABLET Take 600 mg by mouth twice da* METFORMIN ER 500 MG TABLET,EX* Take 1,000 mg by mouth once d* OMEPRAZOLE 40 MG CAPSULE,CARLYN* Take 40 mg by mouth once adia* TIKWZGRTRE-HDMXXVR-HKGMBYNW 5* Take 1 capsule by mouth once * TRAMADOL 50 MG TABLET Take 50 mg by mouth three lizeth* * FLUOXETINE 20 MG CAPSULE Take 20 mg by mouth once adia* * MULTIVITAMIN TABLET Take one(1) tablet daily. * CALCIUM + D 600 MG (1,500 MG)* Take one(1) tablet twice adia* * TYLENOL EXTRA STRENGTH 500 MG* Take two(2) tablets every six* MELATONIN 3 MG TABLET Take 6 mg by mouth daily at b* SUMATRIPTAN 100 MG TABLET Take 100 mg by mouth as neede* Problem List As Of Date 10/02/2017 Noted Resolved Postmenopausal bleeding [N95.0] INVALID FOR* Ovarian cyst [N83.209] INVALID FOR* Malignant neoplasm of upper-outer quadrant of l*INVALID FOR* 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 Visit Notes: >> Kathi Deluca) LISA St sandy Oct 02, 2017 10:30 AM Status: Signed Est pt. Discuss recent labs, tx on Pt. States had diarrhea over weekend, took immodium, helped Also had lower back and leg pain over weekend, taking OTC meds , helps Kathi St LPN Encounter Status:Closed by HARPREET PANTOJA DO on 10/02/17 COMP METABOLIC PANEL Collected: 10/02/2017 Status: F Source: [place] 10:28 AM [facility] REPOSIT[facility] TYPE CODE TESTS RESULT OUT OF REFERENCE UNITS RANGE LAB TP 6.3-8.0 g/dL Protein, Total 6.6 LAB ALB 3.9-4.9 g/dL Albumin 4.1 LAB CA 8.5-10.2 mg/dL Calcium, Total 9.3 LAB TBIL 0.2-1.3 mg/dL Bilirubin, Total 0.3 LAB ALKP 32-117 U/L Alkaline Phosphatase 73 LAB AST 13-35 U/L AST 25 LAB GLU 74-99 mg/dL Glucose High 191 Result Comment: The [place] Diabetes Association (ADA) provides guidance for cutoff values for fasting glucose and random glucose. The ADA defines fasting as no caloric intake for at least 8 hours. Fas ting plasma glucose results between 100 to 125 mg/dL indicate increased risk for diabetes (prediabetes). Fasting plasma glucose results greater than or equal to 126 mg/dL meet the criteria for diagnosis of diabetes. In the absence of unequivocal hyperglycemia, results should be confirmed by repeat testing. In a patient with classic symptoms of hyperglycemia or hyperglycemic crisis, random plasma glucose results greater than or equal to 200 mg/dL meet the criteria for diagnosis of diabetes. Reference: Standards of Medical Care in Diabetes 2016, [place] Diabetes Association. Diabetes Care. 2016.39(Suppl 1). LAB BUN 7-21 mg/dL BUN 8 LAB CRET 0.58-0.96 mg/dL Creatinine 0.70 LAB NA 136-144 mmol/L Sodium 138 LAB K 3.7-5.1 mmol/L Potassium 4.4 LAB CL 97-105 mmol/L Chloride 99 LAB CO2 22-30 mmol/L CO2 25 LAB AGAP 9-18 mmol/L Anion Gap 14 LAB ALT 7-38 U/L ALT 20 LAB GFRAA eGFR- Amer. >60 LAB GFRNAA . eGFR-All Other Races >60 Result Comment: eGFR (Estimated GFR) Units of measure: mL/min/1.73 meters squared eGFR is derived from the reexpressed MDRD Study equation using the following parameters: serum creatinine, age, gender and race. The creatinine assay has been calibrated to be traceable to IDMS. An eGFR <60 mL/min/1.73m2 for >3 months is consistent with chronic kidney disease. Refer to KDOQI guidelines for clinical interpretation. In patients with unstable renal function, e.g. those with acute kidney injury, the eGFR may not accurately reflect actual GFR. Performed By: #### CMP #### [facility] [place] [facility] [address] [place], [place] [address] PHYLLIS ABS GR + CBC Collected: 10/02/2017 Status: F Source: [place] 10:27 AM [facility] REPOSITORY TYPE CODE TESTS RESULT OUT OF REFERENCE UNITS RANGE LAB WWBC 3.70-11.00 k/uL Ph[place] WBC 5.57 LAB WRBC 3.90-5.20 m/uL Low Phyllis RBC 3.55 LAB WHGB 11.5-15.5 g/dL Low Ph[place]is Hemoglobin 10.7 LAB WHCT 36.0-46.0 % Low Ph[place]is Hematocrit 33.0 LAB WMCV 80.0-100.0 fL Ph[place] MCV 93.0 LAB WMCH 26.0-34.0 pg Ph[place] MCH 30.1 LAB WMCHC 30.5-36.0 g/dL [place] MCHC 32.4 LAB WRDW 11.5-15.0 % Phyllis High RDW 15.2 LAB WPLT 150-400 k/uL [place] Platelet Cnt 300 LAB WMPV 9.0-12.7 fL Low [place] MPV 8.5 Result Comment: Test performed at: [facility], [address] [place] [address] Rd[address] [place] [address]. LAB ABGRAN 1.45-7.50 k/uL Absol Gran 4.37 Count PHYLLIS ABS GR + CBC Collected: 09/27/2017 Status: F Source: [place] 10:20 AM [facility] REPOSITORY TYPE CODE TESTS RESULT OUT OF REFERENCE UNITS RANGE LAB WWBC 3.70-11.00 k/uL [place] WBC 6.35 LAB WRBC 3.90-5.20 m/uL Low [place] RBC 3.37 LAB WHGB 11.5-15.5 g/dL Low Ph[place]is Hemoglobin 10.1 LAB WHCT 36.0-46.0 % Low [place] Hematocrit 31.4 LAB WMCV 80.0-100.0 fL [place] MCV 93.2 LAB WMCH 26.0-34.0 pg Ph[place]is MCH 30.0 LAB WMCHC 30.5-36.0 g/dL [place] MCHC 32.2 LAB WRDW 11.5-15.0 % [place] High RDW 16.1 LAB WPLT 150-400 k/uL [place] Platelet Cnt 277 LAB WMPV 9.0-12.7 fL Low [place] MPV 8.0 Result Comment: Test performed at: [facility], [address] [place] [address]. LAB ABGRAN 1.45-7.50 k/uL Absol Gran 4.85 Count COMP METABOLIC PANEL Collected: 09/27/2017 Status: F Source: [place] 10:20 AM [facility] REPOSITORY TYPE CODE TESTS RESULT OUT OF REFERENCE UNITS RANGE LAB TP 6.3-8.0 g/dL Protein, Total 6.4 LAB ALB 3.9-4.9 g/dL Albumin 4.0 LAB CA 8.5-10.2 mg/dL Calcium, Total 9.2 LAB TBIL 0.2-1.3 mg/dL Bilirubin, Total 0.2 LAB ALKP 32-117 U/L Alkaline Phosphatase 67 LAB AST 13-35 U/L AST 20 LAB GLU 74-99 mg/dL Glucose High 136 Result Comment: The [place] Diabetes Association (ADA) provides guidance for cutoff values for fasting glucose and random glucose. The ADA defines fasting as no caloric intake for at least 8 hours. Fas ting plasma glucose results between 100 to 125 mg/dL indicate increased risk for diabetes (prediabetes). Fasting plasma glucose results greater than or equal to 126 mg/dL meet the criteria for diagnosis of diabetes. In the absence of unequivocal hyperglycemia, results should be confirmed by repeat testing. In a patient with classic symptoms of hyperglycemia or hyperglycemic crisis, random plasma glucose results greater than or equal to 200 mg/dL meet the criteria for diagnosis of diabetes. Reference: Standards of Medical Care in Diabetes 2016, [place] Diabetes Association. Diabetes Care. 2016.39(Suppl 1). LAB BUN 7-21 mg/dL BUN 13 LAB CRET 0.58-0.96 mg/dL Creatinine 0.68 LAB NA 136-144 mmol/L Sodium 142 LAB K 3.7-5.1 mmol/L Potassium 4.5 LAB CL 97-105 mmol/L Chloride 102 LAB CO2 22-30 mmol/L CO2 25 LAB AGAP 9-18 mmol/L Anion Gap 15 LAB ALT 7-38 U/L ALT 17 LAB GFRAA eGFR- Amer. >60 LAB GFRNAA . eGFR-All Other Races >60 Result Comment: eGFR (Estimated GFR) Units of measure: mL/min/1.73 meters squared eGFR is derived from the reexpressed MDRD Study equation using the following parameters: serum creatinine, age, gender and race. The creatinine assay has been calibrated to be traceable to IDMS. An eGFR <60 mL/min/1.73m2 for >3 months is consistent with chronic kidney disease. Refer to KDOQI guidelines for clinical interpretation. In patients with unstable renal function, e.g. those with acute kidney injury, the eGFR may not accurately reflect actual GFR. Performed By: #### CMP #### [facility] [place] [facility] [address] [place], [place] [address] COMP METABOLIC PANEL Collected: 09/20/2017 Status: F Source: [place] 1:22 PM [facility] REPOSITORY TYPE CODE TESTS RESULT OUT OF REFERENCE UNITS RANGE LAB TP 6.3-8.0 g/dL Low Protein, Total 6.2 LAB ALB 3.9-4.9 g/dL Albumin 4.1 LAB CA 8.5-10.2 mg/dL Calcium, Total 8.9 LAB TBIL 0.2-1.3 mg/dL Bilirubin, Total 0.2 LAB ALKP 32-117 U/L Alkaline Phosphatase 69 LAB AST 13-35 U/L AST 25 LAB GLU 74-99 mg/dL Glucose High 137 Result Comment: The [place] Diabetes Association (ADA) provides guidance for cutoff values for fasting glucose and random glucose. The ADA defines fasting as no caloric intake for at least 8 hours. Fas ting plasma glucose results between 100 to 125 mg/dL indicate increased risk for diabetes (prediabetes). Fasting plasma glucose results greater than or equal to 126 mg/dL meet the criteria for diagnosis of diabetes. In the absence of unequivocal hyperglycemia, results should be confirmed by repeat testing. In a patient with classic symptoms of hyperglycemia or hyperglycemic crisis, random plasma glucose results greater than or equal to 200 mg/dL meet the criteria for diagnosis of diabetes. Reference: Standards of Medical Care in Diabetes 2016, [place] Diabetes Association. Diabetes Care. 2016.39(Suppl 1). LAB BUN 7-21 mg/dL BUN 11 LAB CRET 0.58-0.96 mg/dL Creatinine 0.67 LAB NA 136-144 mmol/L Sodium 138 LAB K 3.7-5.1 mmol/L Potassium 4.4 LAB CL 97-105 mmol/L Chloride 103 LAB CO2 22-30 mmol/L CO2 25 LAB AGAP 9-18 mmol/L Anion Gap 10 LAB ALT 7-38 U/L ALT 20 LAB GFRAA eGFR- Amer. >60 LAB GFRNAA . eGFR-All Other Races >60 Result Comment: eGFR (Estimated GFR) Units of measure: mL/min/1.73 meters squared eGFR is derived from the reexpressed MDRD Study equation using the following parameters: serum creatinine, age, gender and race. The creatinine assay has been calibrated to be traceable to IDMS. An eGFR <60 mL/min/1.73m2 for >3 months is consistent with chronic kidney disease. Refer to KDOQI guidelines for clinical interpretation. In patients with unstable renal function, e.g. those with acute kidney injury, the eGFR may not accurately reflect actual GFR. Performed By: #### CMP #### [facility] [place] [facility] [address] [place], [place] [address] PHYLLIS ABS GR + CBC Collected: 09/20/2017 Status: F Source: [place] 1:21 PM [facility] REPOSITORY TYPE CODE TESTS RESULT OUT OF REFERENCE UNITS RANGE LAB WWBC 3.70-11.00 k/uL Ph[place] WBC 5.54 LAB WRBC 3.90-5.20 m/uL [place] RBC 3.17 LAB WHGB 11.5-15.5 g/dL Low Ph[place]is Hemoglobin 9.6 LAB WHCT 36.0-46.0 % [place] Ph[place]is Hematocrit 29.3 LAB WMCV 80.0-100.0 fL [place] MCV 92.4 LAB WMCH 26.0-34.0 pg Ph[place] MCH 30.3 LAB WMCHC 30.5-36.0 g/dL [place] MCHC 32.8 LAB WRDW 11.5-15.0 % [place] High RDW 16.9 LAB WPLT 150-400 k/uL Ph[place]is Platelet Cnt 295 LAB WMPV 9.0-12.7 fL [place] MPV 8.4 Result Comment: Test performed at: [facility], [address] [place] [address] Rd[address] [place] [address]. LAB ABGRAN 1.45-7.50 k/uL Absol Gran 3.77 Count COMP METABOLIC PANEL Collected: 09/13/2017 Status: F Source: [place] 8:19 AM [facility] REPOSITORY TYPE CODE TESTS RESULT OUT OF REFERENCE UNITS RANGE LAB TP 6.3-8.0 g/dL [place] Protein, Total 6.2 LAB ALB 3.9-4.9 g/dL Albumin 4.0 LAB CA 8.5-10.2 mg/dL Calcium, Total 9.0 LAB TBIL 0.2-1.3 mg/dL Bilirubin, Total 0.2 LAB ALKP 32-117 U/L Alkaline Phosphatase 61 LAB AST 13-35 U/L AST 21 LAB GLU 74-99 mg/dL Glucose High 151 Result Comment: The [place] Diabetes Association (ADA) provides guidance for cutoff values for fasting glucose and random glucose. The ADA defines fasting as no caloric intake for at least 8 hours. Fas ting plasma glucose results between 100 to 125 mg/dL indicate increased risk for diabetes (prediabetes). Fasting plasma glucose results greater than or equal to 126 mg/dL meet the criteria for diagnosis of diabetes. In the absence of unequivocal hyperglycemia, results should be confirmed by repeat testing. In a patient with classic symptoms of hyperglycemia or hyperglycemic crisis, random plasma glucose results greater than or equal to 200 mg/dL meet the criteria for diagnosis of diabetes. Reference: Standards of Medical Care in Diabetes 2016, [place] Diabetes Association. Diabetes Care. 2016.39(Suppl 1). LAB BUN 7-21 mg/dL BUN 7 LAB CRET 0.58-0.96 mg/dL Creatinine 0.64 LAB NA 136-144 mmol/L Sodium 141 LAB K 3.7-5.1 mmol/L Potassium 4.4 LAB CL 97-105 mmol/L Chloride 101 LAB CO2 22-30 mmol/L CO2 26 LAB AGAP 9-18 mmol/L Anion Gap 14 LAB ALT 7-38 U/L ALT 22 LAB GFRAA eGFR- Amer. >60 LAB GFRNAA . eGFR-All Other Races >60 Result Comment: eGFR (Estimated GFR) Units of measure: mL/min/1.73 meters squared eGFR is derived from the reexpressed MDRD Study equation using the following parameters: serum creatinine, age, gender and race. The creatinine assay has been calibrated to be traceable to IDMS. An eGFR <60 mL/min/1.73m2 for >3 months is consistent with chronic kidney disease. Refer to KDOQI guidelines for clinical interpretation. In patients with unstable renal function, e.g. those with acute kidney injury, the eGFR may not accurately reflect actual GFR. Performed By: #### CMP #### [facility] [place] [facility] [address] [place], [place] [address] PHYLLIS ABS GR + CBC Collected: 09/13/2017 Status: F Source: [place] 8:18 AM [facility] REPOSITORY TYPE CODE TESTS RESULT OUT OF REFERENCE UNITS RANGE LAB WWBC 3.70-11.00 k/uL Ph[place]is WBC 4.08 LAB WRBC 3.90-5.20 m/uL [place] RBC 3.21 LAB WHGB 11.5-15.5 g/dL Low Ph[place]is Hemoglobin 9.6 LAB WHCT 36.0-46.0 % Low [place] Hematocrit 29.4 LAB WMCV 80.0-100.0 fL [place] MCV 91.6 LAB WMCH 26.0-34.0 pg [place] MCH 29.9 LAB WMCHC 30.5-36.0 g/dL [place] MCHC 32.7 LAB WRDW 11.5-15.0 % Phyllis [place] RDW 17.5 LAB WPLT 150-400 k/uL [place] Platelet Cnt 231 LAB WMPV 9.0-12.7 fL [place] MPV 8.2 Result Comment: Test performed at: [facility] [place], [address] [place] [address]. LAB ABGRAN 1.45-7.50 k/uL Absol Gran 2.60 Count PROGRESS Observed: 09/04/2017 Status: COMPLETED Source: [place] 11:59 AM [facility] REPOSITORY HNO ID: [id number] Author: Harpreet Pantoja Service: (none) Author Type: Physician Type: Progress Notes Filed: 09/04/2017 1:32 PM Note Text: Diagnosis: 1) Breast cancer. HPI: The patient is a 62-year-old female was a past medical history significant for diabetes and psoriatic arthritis. Patient had a screening mammogram performed on 03/22/2017 (only 3 months past annual date of previous study). There was a new mass identified in the left breast as being indeterminate. Further studies were recommended. Diagnostic imaging done on 03/28/2017 demonstrated a 3 cm irregular mass in left breast consistent with carcinoma and was highly suggestive of malignancy. Underwent core needle biopsy on 2017. Pathology: Left breast, ultrasound-guided needle core biopsy: Invasive ductal carcinoma, nuclear grade 3 (1 cm in greatest length). See comment. ER (clone 6F11) >95%, strong RI (clone 16/1E2) variable, 0-11%, weak Her-2Neu (clone CB11) 1+ Underwent left-sided mastectomy with left sentinel axillary lymph node biopsy along with prophylactic right-sided mastectomy on 04/20/2017. Pathology: FROZEN SECTION DIAGNOSIS A. Left axillary sentinel lymph nodes, biopsy: Three out of three lymph nodes positive for macrometastatic carcinoma. MICROSCOPIC DIAGNOSIS A. Left axillary sentinel lymph nodes, biopsy: Three out of three lymph nodes positive for macrometastatic carcinoma. See comment. B. Left breast, mastectomy: Invasive ductal carcinoma. C. Right breast: Focal intraductal hyperplasia without atypia. Negative for carcinoma in the sections examined. D. Extra skin and tissue left breast: Negative for carcinoma. INVASIVE BREAST CANCER SUMMARY: (Including specimen A AND B) Specimen ? total breast (including nipple and skin). Procedure ? total mastectomy (including nipple and skin). Lymph node sampling ? sentinel lymph nodes Specimen integrity ? single intact specimen. Specimen laterality - left Tumor size ? 3.5 x 3.3 x 3 cm Tumor focality ? single focus of invasive carcinoma Macroscopic and Microscopic extent of tumor: Skin ? invasive carcinoma does not invade into the dermis or epidermis. Nipple ? ductal carcinoma in situ does not nipple epidermis. Skeletal muscle ? no skeletal muscle present. Ductal carcinoma in situ (DCIS) ? no ductal carcinoma in situ is present. Lobular carcinoma in situ (LCIS) ? not identified Histologic type of invasive carcinoma ? invasive ductal carcinoma (no special type). Histologic Grade (Raymon grade): Glandular/tubular differentiation - score 3 Nuclear pleomorphism - score 3 Mitotic count ? score 2 Overall grade - 3 (score of 8) Margins - Margins uninvolved by invasive carcinoma. The invasive carcinoma is 1.5 cm away from the closest posterior margin. Treatment effect: Response to presurgical (neoadjuvant) therapy - no known presurgical therapy. Lymph-Vascular invasion ? not identified Dermal lymph-vascular invasion - not identified Lymph nodes: Number of sentinel lymph nodes examined - 3 Total number of lymph nodes examined (sentinel and nonsentinel) - 3 Number of lymph nodes with macrometastases - 3 Number of lymph nodes with micrometastases and isolated tumor cells - 0 Size of largest metastatic deposit ? 3.6 cm Extranodal extension ? present, focal (0.4 cm in greatest dimension) Distance metastasis ? not applicable Additional pathologic findings ? fibrocystic changes and intraductal hyperplasia without atypia. Ancillary studies - previously performed on section of tumor ([id number] / [id number]). ER ? positive (>95%, strong) RI ? positive (variable, 0-11%, weak) Her2 bhavani ? negative (1+) Microcalcifications ? not identified Clinical history - Please make reference to previous specimen ([id number]) left breast, ultrasound-guided needle core biopsy with diagnosis of invasive ductal carcinoma. PATHOLOGIC STAGE: pT2 pN1a(sn) Mx The above summary is in compliance with [employer] [place] [employer] (CAP) Cancer Protocols Checklist and [place] Joint Committee on Cancer (AJCC), Staging Manual, 8th Ed. COMMENT A. The lymph nodes are almost completely involved by the metastatic tumor. The largest lymph node measures 3.6 cm in greatest dimension. The largest focus of metastasis measures 3.6 cm in greatest dimension. Focal extranodal distention is noted which measures 0.4 cm in greatest dimension. Underwent completion axillary dissection 05/27/2017. Pathology: MICROSCOPIC DIAGNOSIS A. Left axillary contents, regional lymphadenectomy: Isolated metastatic tumor cells in one of seven lymph nodes. B. ?Dog ear,? excision: Skin with attached fibrofatty tissue with reactive and reparative change and suture granulomas. No evidence of malignancy. COMMENT Case has been reviewed in consultation with Dr. Skinner who concurs with the above diagnosis. MICROSCOPIC DESCRIPTION Slides are reviewed. A. The largest lymph node contains benign histiocytic proliferation, fibrosis and minimal chronic inflammation consistent with previous biopsy and resection ([id number]). Immunohistochemistry ([id number]) supports the presence of isolated metastatic tumor cells in one out of seven lymph nodes. Current therapy: 1) Adjuvant AC followed by Taxol. Presents for ongoing oncologic management. Evaluation for cycle #3. Interim history: Tolerating treatment well. Occasional pins and needles in the fingers but it's very transient symptom. No symptoms of neuropathy otherwise. She feels like recently she turned corner for the better. No symptoms of cardiomyopathy including chest pain/pressure, palpitations, shortness of breath at rest or with exertion, lower extremity swelling/edema, PND or orthopnea. PMH, medications and allergies personally reviewed by me today. Any changes documented in appropriate section. ROS: Constitutional: Denies episodes of fever and night sweats. Neuro: Denies OWENS, vertigo, dizziness and imbalance. HEENT: No recent change in voice, vision or hearing. Resp: Denies cough, wheeze and hemoptysis. CVS: See above. : Denies dysuria or gross hematuria. No symptoms of bladder outlet obstruction. Endo: Denies hot flashes. Denies polyuria and polydipsia. Denies heat and cold intolerance. Musculoskeletal: OA of shoulders and knees. Psoriatic arthritis affects hands and wrists--good control with Otezla. Derm: Psoriatic plaques resolved with Otezla. Heme: Denies unusual bleeding and unexplained bruising. Psych: Normal mood. PHYSICAL EXAM: Vitals: Blood pressure 124/63, pulse 94, temperature 36.2 ?C (97.1 ?F), temperature source Temporal Artery, weight 85.5 kg (188 lb 8 oz), last menstrual period 02/04/2010. Well-appearing and in no acute distress. EYES: Sclerae are anicteric bilaterally. ENT: Oral mucosa is unremarkable. NECK: Supple. LYMPHATIC: There is no palpable cervical, supraclavicular, axillary adenopathy. RESPIRATORY: Inspiratory breath sounds are of normal intensity in all peters. No rales, wheezes or rhonchi. CARDIOVASCULAR: Rhythm is regular. Normal intensity S1/S2. There is no gallop or murmur. ABDOMEN: The abdomen is nondistended. No organomegaly. No tenderness. Extremities: No swelling or edema now. SKIN: She has mild changes of angular dugan lightest. A few small pustular lesions on the right side. NEUROLOGIC: sheeter operator II-XII are grossly intact. No focal motor weakness. MUSCULOSKELETAL: No muscle wasting. 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 -pT2 (3.5 cm; grade 3; no LVI) pN1a (3 of 3 SLNs) MX ER/RI positive, HER2 negative invasive ductal carcinoma the left breast. -Staging form in problem list previously completed. -She continues to tolerate adjuvant chemotherapy very well thus far. -Again addressed the role of aromatase inhibitor therapy. Consider clinical trial SWOG 1207 as disease is high risk (+LNs and grade 3 tumor). Plan: -Continue chemotherapy. -Radiation opinion for axillary radiation following chemotherapy. Harpreet Pantoja DO CNOVSP Observed: 09/04/2017 Status: COMPLETED Source: [place] 11:50 AM [facility] REPOSITORY Visit (SP) Office ([place]) JESSICA RODRIGUEZ Jonathan ([id number]) 1955 F Date Time Provider Department 09/04/17 11:50 AM HARPREET PANTOJA During your visit today, we recorded the following information about you: Temperature Pulse Blood pressure Weight 97.1 degrees 94/minute 124/63 85.5 kg Harpreet Pantoja DO 09/04/2017 1:32 PM Signed Diagnosis: 1) Breast cancer. HPI: The patient is a 62-year-old female was a past medical history significant for diabetes and psoriatic arthritis. Patient had a screening mammogram performed on 03/22/2017 (only 3 months past annual date of previous study). There was a new mass identified in the left breast as being indeterminate. Further studies were recommended. Diagnostic imaging done on 03/28/2017 demonstrated a 3 cm irregular mass in left breast consistent with carcinoma and was highly suggestive of malignancy. Underwent core needle biopsy on 2017. Pathology: Left breast, ultrasound-guided needle core biopsy: Invasive ductal carcinoma, nuclear grade 3 (1 cm in greatest length). See comment. ER (clone 6F11) >95%, strong RI (clone 16/1E2) variable, 0-11%, weak Her-2Neu (clone CB11) 1+ Underwent left-sided mastectomy with left sentinel axillary lymph node biopsy along with prophylactic right-sided mastectomy on 04/20/2017. Pathology: FROZEN SECTION DIAGNOSIS A. Left axillary sentinel lymph nodes, biopsy: Three out of three lymph nodes positive for macrometastatic carcinoma. MICROSCOPIC DIAGNOSIS A. Left axillary sentinel lymph nodes, biopsy: Three out of three lymph nodes positive for macrometastatic carcinoma. See comment. B. Left breast, mastectomy: Invasive ductal carcinoma. C. Right breast: Focal intraductal hyperplasia without atypia. Negative for carcinoma in the sections examined. D. Extra skin and tissue left breast: Negative for carcinoma. INVASIVE BREAST CANCER SUMMARY: (Including specimen A AND B) Specimen ? total breast (including nipple and skin). Procedure ? total mastectomy (including nipple and skin). Lymph node sampling ? sentinel lymph nodes Specimen integrity ? single intact specimen. Specimen laterality - left Tumor size ? 3.5 x 3.3 x 3 cm Tumor focality ? single focus of invasive carcinoma Macroscopic and Microscopic extent of tumor: Skin ? invasive carcinoma does not invade into the dermis or epidermis. Nipple ? ductal carcinoma in situ does not nipple epidermis. Skeletal muscle ? no skeletal muscle present. Ductal carcinoma in situ (DCIS) ? no ductal carcinoma in situ is present. Lobular carcinoma in situ (LCIS) ? not identified Histologic type of invasive carcinoma ? invasive ductal carcinoma (no special type). Histologic Grade (Raymon grade): Glandular/tubular differentiation - score 3 Nuclear pleomorphism - score 3 Mitotic count ? score 2 Overall grade - 3 (score of 8) Margins - Margins uninvolved by invasive carcinoma. The invasive carcinoma is 1.5 cm away from the closest posterior margin. Treatment effect: Response to presurgical (neoadjuvant) therapy - no known presurgical therapy. Lymph-Vascular invasion ? not identified Dermal lymph-vascular invasion - not identified Lymph nodes: Number of sentinel lymph nodes examined - 3 Total number of lymph nodes examined (sentinel and nonsentinel) - 3 Number of lymph nodes with macrometastases - 3 Number of lymph nodes with micrometastases and isolated tumor cells - 0 Size of largest metastatic deposit ? 3.6 cm Extranodal extension ? present, focal (0.4 cm in greatest dimension) Distance metastasis ? not applicable Additional pathologic findings ? fibrocystic changes and intraductal hyperplasia without atypia. Ancillary studies - previously performed on section of tumor ([id number] / [id number]). ER ? positive (>95%, strong) RI ? positive (variable, 0-11%, weak) Her2 bhavani ? negative (1+) Microcalcifications ? not identified Clinical history - Please make reference to previous specimen ([id number]) left breast, ultrasound-guided needle core biopsy with diagnosis of invasive ductal carcinoma. PATHOLOGIC STAGE: pT2 pN1a(sn) Mx The above summary is in compliance with [employer] [place] [employer] (CAP) Cancer Protocols Checklist and [place] Joint Committee on Cancer (AJCC), Staging Manual, 8th Ed. COMMENT A. The lymph nodes are almost completely involved by the metastatic tumor. The largest lymph node measures 3.6 cm in greatest dimension. The largest focus of metastasis measures 3.6 cm in greatest dimension. Focal extranodal distention is noted which measures 0.4 cm in greatest dimension. Underwent completion axillary dissection 05/27/2017. Pathology: MICROSCOPIC DIAGNOSIS A. Left axillary contents, regional lymphadenectomy: Isolated metastatic tumor cells in one of seven lymph nodes. B. ?Dog ear,? excision: Skin with attached fibrofatty tissue with reactive and reparative change and suture granulomas. No evidence of malignancy. COMMENT Case has been reviewed in consultation with Dr. Skinner who concurs with the above diagnosis. MICROSCOPIC DESCRIPTION Slides are reviewed. A. The largest lymph node contains benign histiocytic proliferation, fibrosis and minimal chronic inflammation consistent with previous biopsy and resection ([id number]). Immunohistochemistry ([id number]) supports the presence of isolated metastatic tumor cells in one out of seven lymph nodes. Current therapy: 1) Adjuvant AC followed by Taxol. Presents for ongoing oncologic management. Evaluation for cycle #3. Interim history: Tolerating treatment well. Occasional pins and needles in the fingers but it's very transient symptom. No symptoms of neuropathy otherwise. She feels like recently she turned corner for the better. No symptoms of cardiomyopathy including chest pain/pressure, palpitations, shortness of breath at rest or with exertion, lower extremity swelling/edema, PND or orthopnea. PMH, medications and allergies personally reviewed by me today. Any changes documented in appropriate section. ROS: Constitutional: Denies episodes of fever and night sweats. Neuro: Denies OWENS, vertigo, dizziness and imbalance. HEENT: No recent change in voice, vision or hearing. Resp: Denies cough, wheeze and hemoptysis. CVS: See above. : Denies dysuria or gross hematuria. No symptoms of bladder outlet obstruction. Endo: Denies hot flashes. Denies polyuria and polydipsia. Denies heat and cold intolerance. Musculoskeletal: OA of shoulders and knees. Psoriatic arthritis affects hands and wrists--good control with Otezla. Derm: Psoriatic plaques resolved with Otezla. Heme: Denies unusual bleeding and unexplained bruising. Psych: Normal mood. PHYSICAL EXAM: Vitals: Blood pressure 124/63, pulse 94, temperature 36.2 ?C (97.1 ?F), temperature source Temporal Artery, weight 85.5 kg (188 lb 8 oz), last menstrual period 02/04/2010. Well-appearing and in no acute distress. EYES: Sclerae are anicteric bilaterally. ENT: Oral mucosa is unremarkable. NECK: Supple. LYMPHATIC: There is no palpable cervical, supraclavicular, axillary adenopathy. RESPIRATORY: Inspiratory breath sounds are of normal intensity in all peters. No rales, wheezes or rhonchi. CARDIOVASCULAR: Rhythm is regular. Normal intensity S1/S2. There is no gallop or murmur. ABDOMEN: The abdomen is nondistended. No organomegaly. No tenderness. Extremities: No swelling or edema now. SKIN: She has mild changes of angular dugan lightest. A few small pustular lesions on the right side. NEUROLOGIC: sheeter operator II-XII are grossly intact. No focal motor weakness. MUSCULOSKELETAL: No muscle wasting. 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 -pT2 (3.5 cm; grade 3; no LVI) pN1a (3 of 3 SLNs) MX ER/RI positive, HER2 negative invasive ductal carcinoma the left breast. -Staging form in problem list previously completed. -She continues to tolerate adjuvant chemotherapy very well thus far. -Again addressed the role of aromatase inhibitor therapy. Consider clinical trial SWOG 1207 as disease is high risk (+LNs and grade 3 tumor). Plan: -Continue chemotherapy. -Radiation opinion for axillary radiation following chemotherapy. 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) [C77.3] Follow-up and Disposition History Recorded Prescriptions as of 09/04/2017 Sig: DIPHENHYDRAMINE 25 MG-ACETAMI* Take 1 tablet by mouth at bed* LORAZEPAM 1 MG TABLET Take 1 mg by mouth every 8 ho* ONDANSETRON HCL 8 MG TABLET Take 1 tablet by mouth every * ASCORBIC ACID (VITAMIN C) 500* Take 500 mg by mouth as neede* LIDOCAINE-PRILOCAINE 2.5 %-2.* Apply 1 application to affect* MELATONIN 3 MG TABLET Take 6 mg by mouth daily at b* OTC NUTRITIONAL SUPPLEMENT calm day IBUPROFEN 200 MG TABLET Take 600 mg by mouth twice da* METFORMIN ER 500 MG TABLET,EX* Take 1,000 mg by mouth once d* SUMATRIPTAN 100 MG TABLET Take 100 mg by mouth as neede* OMEPRAZOLE 40 MG CAPSULE,CARLYN* Take 40 mg by mouth once adia* [id number]-[id number]-[id number] 5* Take 1 capsule by mouth once * TRAMADOL 50 MG TABLET Take 50 mg by mouth three lizeth* * FLUOXETINE 20 MG CAPSULE Take 20 mg by mouth once adia* * MULTIVITAMIN TABLET Take one(1) tablet daily. * CALCIUM + D 600 MG (1,500 MG)* Take one(1) tablet twice adia* * TYLENOL EXTRA STRENGTH 500 MG* Take two(2) tablets every six* Problem List As Of Date 09/04/2017 Noted Resolved Postmenopausal bleeding [N95.0] INVALID FOR* Ovarian cyst [N83.209] INVALID FOR* Malignant neoplasm of upper-outer quadrant of l*INVALID FOR* 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 Encounter Status:Closed by HARPREET PANTOJA DO on 09/04/17 [place] ABS GR + CBC Collected: 09/04/2017 Status: F Source: [place] 11:45 AM [facility] REPOSITORY TYPE CODE TESTS RESULT OUT OF REFERENCE UNITS RANGE LAB WWBC 3.70-11.00 k/uL [place] WBC 4.48 LAB WRBC 3.90-5.20 m/uL [place] RBC 3.41 LAB WHGB 11.5-15.5 g/dL [place] Hemoglobin 10.1 LAB WHCT 36.0-46.0 % [place] Hematocrit 30.8 LAB WMCV 80.0-100.0 fL [place] MCV 90.3 LAB WMCH 26.0-34.0 pg [place] MCH 29.6 LAB WMCHC 30.5-36.0 g/dL [place] MCHC 32.8 LAB WRDW 11.5-15.0 % [place] High RDW 18.3 LAB WPLT 150-400 k/uL [place] Platelet Cnt 187 LAB WMPV 9.0-12.7 fL [place] MPV 8.5 Result Comment: Test performed at: [facility] [place], [address] [place] [address]. LAB ABGRAN 1.45-7.50 k/uL Absol Gran 3.17 Count COMP METABOLIC PANEL Collected: 09/04/2017 Status: F Source: [place] 11:45 AM [facility] REPOSITORY TYPE CODE TESTS RESULT OUT OF REFERENCE UNITS RANGE LAB TP 6.3-8.0 g/dL Protein, Total 6.3 LAB ALB 3.9-4.9 g/dL Albumin 4.1 LAB CA 8.5-10.2 mg/dL Calcium, Total 9.4 LAB TBIL 0.2-1.3 mg/dL Bilirubin, Total 0.4 LAB ALKP 32-117 U/L Alkaline Phosphatase 56 LAB AST 13-35 U/L AST 27 LAB GLU 74-99 mg/dL Glucose High 197 Result Comment: The [place] [employer] Association (ADA) provides guidance for cutoff values for fasting glucose and random glucose. The ADA defines fasting as no caloric intake for at least 8 hours. Fas ting plasma glucose results between 100 to 125 mg/dL indicate increased risk for diabetes (prediabetes). Fasting plasma glucose results greater than or equal to 126 mg/dL meet the criteria for diagnosis of diabetes. In the absence of unequivocal hyperglycemia, results should be confirmed by repeat testing. In a patient with classic symptoms of hyperglycemia or hyperglycemic crisis, random plasma glucose results greater than or equal to 200 mg/dL meet the criteria for diagnosis of diabetes. Reference: Standards of Medical Care in Diabetes 2016, [place] [employer] Association. Diabetes Care. 2016.39(Suppl 1). LAB BUN 7-21 mg/dL BUN Low 6 LAB CRET 0.58-0.96 mg/dL Creatinine 0.58 LAB NA 136-144 mmol/L Sodium 140 LAB K 3.7-5.1 mmol/L Potassium 4.2 LAB CL 97-105 mmol/L Chloride 100 LAB CO2 22-30 mmol/L CO2 25 LAB AGAP 9-18 mmol/L Anion Gap 15 LAB ALT 7-38 U/L ALT 25 LAB GFRAA eGFR- Amer. >60 LAB GFRNAA . eGFR-All Other Races >60 Result Comment: eGFR (Estimated GFR) Units of measure: mL/min/1.73 meters squared eGFR is derived from the reexpressed MDRD Study equation using the following parameters: serum creatinine, age, gender and race. The creatinine assay has been calibrated to be traceable to IDMS. An eGFR <60 mL/min/1.73m2 for >3 months is consistent with chronic kidney disease. Refer to KDOQI guidelines for clinical interpretation. In patients with unstable renal function, e.g. those with acute kidney injury, the eGFR may not accurately reflect actual GFR. Performed By: #### CMP #### [facility] [address] [place] [address] [place] ABS GR + CBC Collected: 08/30/2017 Status: F Source: [place] 10:20 AM [facility] REPOSITORY TYPE CODE TESTS RESULT OUT OF REFERENCE UNITS RANGE LAB WWBC 3.70-11.00 k/uL [place] WBC 3.77 LAB WRBC 3.90-5.20 m/uL [place] RBC 3.32 LAB WHGB 11.5-15.5 g/dL [place] Hemoglobin 9.8 LAB WHCT 36.0-46.0 % [place] Hematocrit 29.7 LAB WMCV 80.0-100.0 fL [place] MCV 89.5 LAB WMCH 26.0-34.0 pg [place] MCH 29.5 LAB WMCHC 30.5-36.0 g/dL [place] MCHC 33.0 LAB WRDW 11.5-15.0 % [place] RDW 18.9 LAB WPLT 150-400 k/uL [place] Platelet Cnt 238 LAB WMPV 9.0-12.7 fL [place] MPV 8.5 Result Comment: Test performed at: [facility] [place], [address] [place] [address]. LAB ABGRAN 1.45-7.50 k/uL [place] Gran 2.27 Count [place] ABS GR + CBC Collected: 08/23/2017 Status: F Source: [place] 8:15 AM [facility] REPOSITORY TYPE CODE TESTS RESULT OUT OF REFERENCE UNITS RANGE LAB WWBC 3.70-11.00 k/uL [place] WBC 5.55 LAB WRBC 3.90-5.20 m/uL [place] RBC 3.42 LAB WHGB 11.5-15.5 g/dL [place] Hemoglobin 9.9 LAB WHCT 36.0-46.0 % [place] Hematocrit 30.2 LAB WMCV 80.0-100.0 fL [place] MCV 88.3 LAB WMCH 26.0-34.0 pg [place] MCH 28.9 LAB WMCHC 30.5-36.0 g/dL [place] MCHC 32.8 LAB WRDW 11.5-15.0 % [place] High RDW 18.8 LAB WPLT 150-400 k/uL [place] Platelet Cnt 318 LAB WMPV 9.0-12.7 fL Low [place] MPV 8.4 Result Comment: Test performed at: [facility] [place], [address] [place] [address]. LAB ABGRAN 1.45-7.50 k/uL Absol Gran 3.99 Count PROGRESS Observed: 08/14/2017 Status: COMPLETED Source: [place] 9:22 AM [facility] REPOSITORY HNO ID: [id number] Author: Katie Aleman Service: (none) Author Type: Physician Type: Progress Notes Filed: 08/15/2017 6:59 AM Note Text: Diagnosis: 1) Breast cancer. ? HPI: The patient is a 62-year-old female was a past medical history significant for diabetes and psoriatic arthritis. ? Patient had a screening mammogram performed on 03/22/2017 (only 3 months past annual date of previous study). There was a new mass identified in the left breast as being indeterminate. Further studies were recommended. ? Diagnostic imaging done on 03/28/2017 demonstrated a 3 cm irregular mass in left breast consistent with carcinoma and was highly suggestive of malignancy. ? Underwent core needle biopsy on 2017. ? Pathology: Left breast, ultrasound-guided needle core biopsy: Invasive ductal carcinoma, nuclear grade 3 (1 cm in greatest length). See comment. ? ER (clone 6F11) >95%, strong RI (clone 16/1E2) variable, 0-11%, weak Her-2Neu (clone CB11) 1+ ? Underwent left-sided mastectomy with left sentinel axillary lymph node biopsy along with prophylactic right-sided mastectomy on 04/20/2017. ? Pathology: FROZEN SECTION DIAGNOSIS A. Left axillary sentinel lymph nodes, biopsy: Three out of three lymph nodes positive for macrometastatic carcinoma. ? MICROSCOPIC DIAGNOSIS A. Left axillary sentinel lymph nodes, biopsy: Three out of three lymph nodes positive for macrometastatic carcinoma. See comment. B. Left breast, mastectomy: Invasive ductal carcinoma. C. Right breast: Focal intraductal hyperplasia without atypia. Negative for carcinoma in the sections examined. D. Extra skin and tissue left breast: Negative for carcinoma. ? INVASIVE BREAST CANCER SUMMARY: (Including specimen A AND B) Specimen ? total breast (including nipple and skin). Procedure ? total mastectomy (including nipple and skin). Lymph node sampling ? sentinel lymph nodes Specimen integrity ? single intact specimen. Specimen laterality - left Tumor size ? 3.5 x 3.3 x 3 cm Tumor focality ? single focus of invasive carcinoma Macroscopic and Microscopic extent of tumor: Skin ? invasive carcinoma does not invade into the dermis or epidermis. Nipple ? ductal carcinoma in situ does not nipple epidermis. Skeletal muscle ? no skeletal muscle present. Ductal carcinoma in situ (DCIS) ? no ductal carcinoma in situ is present. Lobular carcinoma in situ (LCIS) ? not identified Histologic type of invasive carcinoma ? invasive ductal carcinoma (no special type). Histologic Grade ([place] grade): Glandular/tubular differentiation - score 3 Nuclear pleomorphism - score 3 Mitotic count ? score 2 Overall grade - 3 (score of 8) Margins - Margins uninvolved by invasive carcinoma. The invasive carcinoma is 1.5 cm away from the closest posterior margin. Treatment effect: Response to presurgical (neoadjuvant) therapy - no known presurgical therapy. Lymph-Vascular invasion ? not identified Dermal lymph-vascular invasion - not identified Lymph nodes: Number of sentinel lymph nodes examined - 3 Total number of lymph nodes examined (sentinel and nonsentinel) - 3 Number of lymph nodes with macrometastases - 3 Number of lymph nodes with micrometastases and isolated tumor cells - 0 Size of largest metastatic deposit ? 3.6 cm Extranodal extension ? present, focal (0.4 cm in greatest dimension) Distance metastasis ? not applicable Additional pathologic findings ? fibrocystic changes and intraductal hyperplasia without atypia. Ancillary studies - previously performed on section of tumor ([id number] / [id number]). ER ? positive (>95%, strong) RI ? positive (variable, 0-11%, weak) Her2 bhavani ? negative (1+) Microcalcifications ? not identified Clinical history - Please make reference to previous specimen ([id number]) left breast, ultrasound-guided needle core biopsy with diagnosis of invasive ductal carcinoma. ? PATHOLOGIC STAGE: pT2 pN1a(sn) Mx The above summary is in compliance with [employer] [place] [employer] (CAP) Cancer Protocols Checklist and [place] Joint Committee on Cancer (AJCC), Staging Manual, 8th Ed. ? COMMENT A. The lymph nodes are almost completely involved by the metastatic tumor. The largest lymph node measures 3.6 cm in greatest dimension. The largest focus of metastasis measures 3.6 cm in greatest dimension. Focal extranodal distention is noted which measures 0.4 cm in greatest dimension. ? Underwent completion axillary dissection 05/27/2017. ? Pathology: MICROSCOPIC DIAGNOSIS A. Left axillary contents, regional lymphadenectomy: Isolated metastatic tumor cells in one of seven lymph nodes. B. ?Dog ear,? excision: Skin with attached fibrofatty tissue with reactive and reparative change and suture granulomas. No evidence of malignancy. ? COMMENT Case has been reviewed in consultation with Dr. Skinner who concurs with the above diagnosis. ? MICROSCOPIC DESCRIPTION Slides are reviewed. A. The largest lymph node contains benign histiocytic proliferation, fibrosis and minimal chronic inflammation consistent with previous biopsy and resection ([id number]). ? Immunohistochemistry ([id number]) supports the presence of isolated metastatic tumor cells in one out of seven lymph nodes. ? Current therapy: 1) Adjuvant AC followed by Taxol. ? Presents for ongoing oncologic management. Evaluation for paclitaxel weekly starting this week. ? Interim history: Fatigue lingering longer following each cycle. She also has persistent nausea for 6 several days but has been using Zofran prophylactically for her symptom. she has lost 10 pounds in the last month. No symptoms of cardiomyopathy including chest pain/pressure, palpitations, shortness of breath at rest or with exertion, lower extremity, PND or orthopnea. ? PMH, medications and allergies personally reviewed by me today. Any changes documented in appropriate section. ? ROS: Constitutional: Denies episodes of fever and night sweats. Neuro: Denies OWENS, vertigo, dizziness and imbalance. HEENT: No recent change in voice, vision or hearing. Resp: Denies cough, wheeze and hemoptysis. CVS: See above. : Denies dysuria or gross hematuria. No symptoms of bladder outlet obstruction. Endo: Denies hot flashes. Denies polyuria and polydipsia. Denies heat and cold intolerance. Musculoskeletal: OA of shoulders and knees. Psoriatic arthritis affects hands and wrists--good control with Otezla. Derm: Psoriatic plaques resolved with Otezla. Heme: Denies unusual bleeding and unexplained bruising. Psych: Normal mood. ? PHYSICAL EXAM: Well-appearing and in no acute distress. BP 123/67 Pulse 79 Temp (Src) 97.2 (Temporal Artery) Wt 181 lb (82.1kg) LMP 02/04/2010 EYES: Sclerae are anicteric bilaterally. ENT: Oral mucosa is unremarkable. NECK: Supple. LYMPHATIC: There is no palpable cervical, supraclavicular, axillary adenopathy. RESPIRATORY: Inspiratory breath sounds are of normal intensity in all peters. No rales, wheezes or rhonchi. CARDIOVASCULAR: Rhythm is regular. Normal intensity S1/S2. There is no gallop or murmur. BREAST: Bilateral mastectomy sites healing well. ABDOMEN: The abdomen is nondistended. No organomegaly. No tenderness. Extremities: No swelling or edema now. SKIN: She has mild changes of angular dugan lightest. A few small pustular lesions on the right side. NEUROLOGIC: sheeter operator II-XII are grossly intact. No focal motor weakness. MUSCULOSKELETAL: No muscle wasting. ? LABS: Component Latest Ref Rng AND Units 08/14/2017 WBC, [place] 3.70 - 11.00 k/uL 6.15 RBC, [place] 3.90 - 5.20 m/uL 3.63 (L) Hemoglobin, [place] 11.5 - 15.5 g/dL 10.4 (L) Hematocrit, [place] 36.0 - 46.0 % 31.7 (L) MCV, [place] 80.0 - 100.0 fL 87.3 MCH, [place] 26.0 - 34.0 pg 28.7 MCHC, [place] 30.5 - 36.0 g/dL 32.8 RDW, [place] 11.5 - 15.0 % 18.9 (H) Platelet Cnt, [place] 150 - 400 k/uL 182 MPV, [place] 9.0 - 12.7 fL 8.3 (L) Absol Gran Count 1.45 - 7.50 k/uL 4.24 Component Latest Ref Rng AND Units 08/14/2017 Protein, Total 6.3 - 8.0 g/dL 6.3 Albumin 3.9 - 4.9 g/dL 4.1 Calcium 8.5 - 10.2 mg/dL 9.1 Bilirubin, Total 0.2 - 1.3 mg/dL 0.2 Alkaline Phosphatase 32 - 117 U/L 75 AST 13 - 35 U/L 18 Glucose 74 - 99 mg/dL 140 (H) BUN 7 - 21 mg/dL 5 (L) Creatinine 0.58 - 0.96 mg/dL 0.64 Sodium 136 - 144 mmol/L 140 Potassium 3.7 - 5.1 mmol/L 3.9 Chloride 97 - 105 mmol/L 101 CO2 22 - 30 mmol/L 26 Anion Gap 9 - 18 mmol/L 13 ALT 7 - 38 U/L 16 eGFR- >60 eGFR-All Other Races . 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 -pT2 (3.5 cm; grade 3; no LVI) pN1a (3 of 3 SLNs) MX ER/RI positive, HER2 negative invasive ductal carcinoma the left breast. -She continues to tolerate adjuvant chemotherapy as well as expected. Plan: -Continue chemotherapy - paclitaxel weekly this week -CBC weekly x 3; repeat CBC CMP OV in 3 weeks -Radiation opinion for axillary radiation following chemotherapy. -Adjuvant endocrine therapy and clinical trial discussed after completing adjuvant radiation therapy. Katie Aleman MD Cc: Dr. Miranda.Eduardo CNOVSP Observed: 08/14/2017 Status: COMPLETED Source: [place] 8:30 AM [facility] REPOSITORY Visit (SP) Office ([place]) JESSICA RODRIGUEZ ([id number]) 1955 F Date Time Provider Department 08/14/17 8:30 AM KATIE ALEMAN During your visit today, we recorded the following information about you: Temperature Pulse Blood pressure Weight 97.2 degrees 79/minute 123/67 82.1 kg Francy Hill LPN 08/14/2017 9:05 AM Signed Est patient. Discuss recent labs, treatment . Francy Aleman MD 08/15/2017 6:59 AM Signed Diagnosis: 1) Breast cancer. ? HPI: The patient is a 62-year-old female was a past medical history significant for diabetes and psoriatic arthritis. ? Patient had a screening mammogram performed on 03/22/2017 (only 3 months past annual date of previous study). There was a new mass identified in the left breast as being indeterminate. Further studies were recommended. ? Diagnostic imaging done on 03/28/2017 demonstrated a 3 cm irregular mass in left breast consistent with carcinoma and was highly suggestive of malignancy. ? Underwent core needle biopsy on 2017. ? Pathology: Left breast, ultrasound-guided needle core biopsy: Invasive ductal carcinoma, nuclear grade 3 (1 cm in greatest length). See comment. ? ER (clone 6F11) >95%, strong RI (clone 16/1E2) variable, 0-11%, weak Her-2Neu (clone CB11) 1+ ? Underwent left-sided mastectomy with left sentinel axillary lymph node biopsy along with prophylactic right-sided mastectomy on 04/20/2017. ? Pathology: FROZEN SECTION DIAGNOSIS A. Left axillary sentinel lymph nodes, biopsy: Three out of three lymph nodes positive for macrometastatic carcinoma. ? MICROSCOPIC DIAGNOSIS A. Left axillary sentinel lymph nodes, biopsy: Three out of three lymph nodes positive for macrometastatic carcinoma. See comment. B. Left breast, mastectomy: Invasive ductal carcinoma. C. Right breast: Focal intraductal hyperplasia without atypia. Negative for carcinoma in the sections examined. D. Extra skin and tissue left breast: Negative for carcinoma. ? INVASIVE BREAST CANCER SUMMARY: (Including specimen A AND B) Specimen ? total breast (including nipple and skin). Procedure ? total mastectomy (including nipple and skin). Lymph node sampling ? sentinel lymph nodes Specimen integrity ? single intact specimen. Specimen laterality - left Tumor size ? 3.5 x 3.3 x 3 cm Tumor focality ? single focus of invasive carcinoma Macroscopic and Microscopic extent of tumor: Skin ? invasive carcinoma does not invade into the dermis or epidermis. Nipple ? ductal carcinoma in situ does not nipple epidermis. Skeletal muscle ? no skeletal muscle present. Ductal carcinoma in situ (DCIS) ? no ductal carcinoma in situ is present. Lobular carcinoma in situ (LCIS) ? not identified Histologic type of invasive carcinoma ? invasive ductal carcinoma (no special type). Histologic Grade ([place] grade): Glandular/tubular differentiation - score 3 Nuclear pleomorphism - score 3 Mitotic count ? score 2 Overall grade - 3 (score of 8) Margins - Margins uninvolved by invasive carcinoma. The invasive carcinoma is 1.5 cm away from the closest posterior margin. Treatment effect: Response to presurgical (neoadjuvant) therapy - no known presurgical therapy. Lymph-Vascular invasion ? not identified Dermal lymph-vascular invasion - not identified Lymph nodes: Number of sentinel lymph nodes examined - 3 Total number of lymph nodes examined (sentinel and nonsentinel) - 3 Number of lymph nodes with macrometastases - 3 Number of lymph nodes with micrometastases and isolated tumor cells - 0 Size of largest metastatic deposit ? 3.6 cm Extranodal extension ? present, focal (0.4 cm in greatest dimension) Distance metastasis ? not applicable Additional pathologic findings ? fibrocystic changes and intraductal hyperplasia without atypia. Ancillary studies - previously performed on section of tumor ([id number] / [id number]). ER ? positive (>95%, strong) RI ? positive (variable, 0-11%, weak) Her2 bhavani ? negative (1+) Microcalcifications ? not identified Clinical history - Please make reference to previous specimen ([id number]) left breast, ultrasound-guided needle core biopsy with diagnosis of invasive ductal carcinoma. ? PATHOLOGIC STAGE: pT2 pN1a(sn) Mx The above summary is in compliance with [employer] [place] [employer] (CAP) Cancer Protocols Checklist and [place] Joint Committee on Cancer (AJCC), Staging Manual, 8th Ed. ? COMMENT A. The lymph nodes are almost completely involved by the metastatic tumor. The largest lymph node measures 3.6 cm in greatest dimension. The largest focus of metastasis measures 3.6 cm in greatest dimension. Focal extranodal distention is noted which measures 0.4 cm in greatest dimension. ? Underwent completion axillary dissection 05/27/2017. ? Pathology: MICROSCOPIC DIAGNOSIS A. Left axillary contents, regional lymphadenectomy: Isolated metastatic tumor cells in one of seven lymph nodes. B. ?Dog ear,? excision: Skin with attached fibrofatty tissue with reactive and reparative change and suture granulomas. No evidence of malignancy. ? COMMENT Case has been reviewed in consultation with Dr. Skinner who concurs with the above diagnosis. ? MICROSCOPIC DESCRIPTION Slides are reviewed. A. The largest lymph node contains benign histiocytic proliferation, fibrosis and minimal chronic inflammation consistent with previous biopsy and resection ([id number]). ? Immunohistochemistry ([id number]) supports the presence of isolated metastatic tumor cells in one out of seven lymph nodes. ? Current therapy: 1) Adjuvant AC followed by Taxol. ? Presents for ongoing oncologic management. Evaluation for paclitaxel weekly starting this week. ? Interim history: Fatigue lingering longer following each cycle. She also has persistent nausea for 6 several days but has been using Zofran prophylactically for her symptom. she has lost 10 pounds in the last month. No symptoms of cardiomyopathy including chest pain/pressure, palpitations, shortness of breath at rest or with exertion, lower extremity, PND or orthopnea. ? PMH, medications and allergies personally reviewed by me today. Any changes documented in appropriate section. ? ROS: Constitutional: Denies episodes of fever and night sweats. Neuro: Denies OWENS, vertigo, dizziness and imbalance. HEENT: No recent change in voice, vision or hearing. Resp: Denies cough, wheeze and hemoptysis. CVS: See above. : Denies dysuria or gross hematuria. No symptoms of bladder outlet obstruction. Endo: Denies hot flashes. Denies polyuria and polydipsia. Denies heat and cold intolerance. Musculoskeletal: OA of shoulders and knees. Psoriatic arthritis affects hands and wrists--good control with Otezla. Derm: Psoriatic plaques resolved with Otezla. Heme: Denies unusual bleeding and unexplained bruising. Psych: Normal mood. ? PHYSICAL EXAM: Well-appearing and in no acute distress. BP 123/67 Pulse 79 Temp (Src) 97.2 (Temporal Artery) Wt 181 lb (82.1kg) LMP 02/04/2010 EYES: Sclerae are anicteric bilaterally. ENT: Oral mucosa is unremarkable. NECK: Supple. LYMPHATIC: There is no palpable cervical, supraclavicular, axillary adenopathy. RESPIRATORY: Inspiratory breath sounds are of normal intensity in all peters. No rales, wheezes or rhonchi. CARDIOVASCULAR: Rhythm is regular. Normal intensity S1/S2. There is no gallop or murmur. BREAST: Bilateral mastectomy sites healing well. ABDOMEN: The abdomen is nondistended. No organomegaly. No tenderness. Extremities: No swelling or edema now. SKIN: She has mild changes of angular dugan lightest. A few small pustular lesions on the right side. NEUROLOGIC: sheeter operator II-XII are grossly intact. No focal motor weakness. MUSCULOSKELETAL: No muscle wasting. ? LABS: Component Latest Ref Rng AND Units 08/14/2017 WBC, [place] 3.70 - 11.00 k/uL 6.15 RBC, [place] 3.90 - 5.20 m/uL 3.63 (L) Hemoglobin, [place] 11.5 - 15.5 g/dL 10.4 (L) Hematocrit, [place] 36.0 - 46.0 % 31.7 (L) MCV, [place] 80.0 - 100.0 fL 87.3 MCH, [place] 26.0 - 34.0 pg 28.7 MCHC, [place] 30.5 - 36.0 g/dL 32.8 RDW, [place] 11.5 - 15.0 % 18.9 (H) Platelet Cnt, [place] 150 - 400 k/uL 182 MPV, [place] 9.0 - 12.7 fL 8.3 (L) Absol Gran Count 1.45 - 7.50 k/uL 4.24 Component Latest Ref Rng AND Units 08/14/2017 Protein, Total 6.3 - 8.0 g/dL 6.3 Albumin 3.9 - 4.9 g/dL 4.1 Calcium 8.5 - 10.2 mg/dL 9.1 Bilirubin, Total 0.2 - 1.3 mg/dL 0.2 Alkaline Phosphatase 32 - 117 U/L 75 AST 13 - 35 U/L 18 Glucose 74 - 99 mg/dL 140 (H) BUN 7 - 21 mg/dL 5 (L) Creatinine 0.58 - 0.96 mg/dL 0.64 Sodium 136 - 144 mmol/L 140 Potassium 3.7 - 5.1 mmol/L 3.9 Chloride 97 - 105 mmol/L 101 CO2 22 - 30 mmol/L 26 Anion Gap 9 - 18 mmol/L 13 ALT 7 - 38 U/L 16 eGFR- >60 eGFR-All Other Races . 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 -pT2 (3.5 cm; grade 3; no LVI) pN1a (3 of 3 SLNs) [place] ER/RI positive, HER2 negative invasive ductal carcinoma the left breast. -She continues to tolerate adjuvant chemotherapy as well as expected. Plan: -Continue chemotherapy - paclitaxel weekly this week -CBC weekly x 3; repeat CBC CMP OV in 3 weeks -Radiation opinion for axillary radiation following chemotherapy. -Adjuvant endocrine therapy and clinical trial discussed after completing adjuvant radiation therapy. Katie [place] MD Cc: Dr. Miradna.Eduardo Referring Provider: HARPREET PANTOJA [[id number]] Allergies As of Date: 08/14/2017 Noted Allergy Reaction IV DYE (IODINATED CONTRAST- ORAL *05/21/2006 4 - Hives SHELLFISH 05/21/2006 4 - Hives VICTOZA (LIRAGLUTIDE) 03/30/2017 5 - Intolerance Date Reviewed: 08/14/2017 Reviewed by: Francy Hill LPN - Fully Assessed Reason for Visit: Established Patient [[id number]] Primary Visit Diagnosis:Malignant neoplasm of upper-outer quadrant of left breast in female, estrogen receptor positive (HCC) [C50.412, Z17.0] Other Visit Diagnosis:Metastatic cancer to axillary lymph nodes (HCC) [C77.3] Level of Service: EST PATIENT VISIT LEVEL 3 [[id number]] Disposition: Return in about 3 weeks (around 09/04/2017). Follow-up and Disposition History Recorded Prescriptions as of 08/14/2017 Sig: ONDANSETRON HCL 8 MG TABLET Take 1 tablet by mouth every * ASCORBIC ACID (VITAMIN C) 500* Take 500 mg by mouth as neede* LIDOCAINE-PRILOCAINE 2.5 %-2.* Apply 1 application to affect* MELATONIN 3 MG TABLET Take 6 mg by mouth daily at b* OTC NUTRITIONAL SUPPLEMENT calm day IBUPROFEN 200 MG TABLET Take 600 mg by mouth twice da* METFORMIN ER 500 MG TABLET,EX* Take 1,000 mg by mouth once d* SUMATRIPTAN 100 MG TABLET Take 100 mg by mouth as neede* OMEPRAZOLE 40 MG CAPSULE,CARLYN* Take 40 mg by mouth once adia* [id number] 5* Take 1 capsule by mouth once * TRAMADOL 50 MG TABLET Take 50 mg by mouth three lizeth* * FLUOXETINE 20 MG CAPSULE Take 20 mg by mouth once adia* * MULTIVITAMIN TABLET Take one(1) tablet daily. * CALCIUM + D 600 MG (1,500 MG)* Take one(1) tablet twice adia* * TYLENOL EXTRA STRENGTH 500 MG* Take two(2) tablets every six* Medication notes this encounter ASCORBIC ACID (VITAMIN C) 500 MG TABLET >> Francy Hill LPN 08/14/2017 8:14 AM >> FRANCY HILL LPN [place] Aug 14, 2017 8:14 AM Taking once daily OTC NUTRITIONAL SUPPLEMENT >> Francy Hill LPN 08/14/2017 8:15 AM >> FRANCY HILL LPN Aug 14, 2017 8:15 AM Taking once daily Problem List As Of Date 08/14/2017 Noted Resolved Postmenopausal bleeding [N95.0] INVALID FOR* Ovarian cyst [N83.209] INVALID FOR* Malignant neoplasm of upper-outer quadrant of l*INVALID FOR* 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 Visit Notes: >> Francy Hill LPN [place] Aug 14, 2017 8:15 AM Status: Signed Est patient. Discuss recent labs, treatment . Francy Hill LPN Encounter Status:Closed by KATIE ALEMAN MD on 08/15/17 [place] ABS GR + CBC Collected: 08/14/2017 Status: F Source: [place] 8:15 AM [facility] REPOSITORY TYPE CODE TESTS RESULT OUT OF REFERENCE UNITS RANGE LAB WWBC 3.70-11.00 k/uL [place] WBC 6.15 LAB WRBC 3.90-5.20 m/uL Low [place] RBC 3.63 LAB WHGB 11.5-15.5 g/dL Low [place] Hemoglobin 10.4 LAB WHCT 36.0-46.0 % Low [place] Hematocrit 31.7 LAB WMCV 80.0-100.0 fL [place] MCV 87.3 LAB WMCH 26.0-34.0 pg [place] MCH 28.7 LAB WMCHC 30.5-36.0 g/dL [place] MCHC 32.8 LAB WRDW 11.5-15.0 % [place] High RDW 18.9 LAB WPLT 150-400 k/uL [place] Platelet Cnt 182 LAB WMPV 9.0-12.7 fL Low [place] MPV 8.3 Result Comment: Test performed at: [facility] [place], [address] [place] [address]. LAB ABGRAN 1.45-7.50 k/uL Absol Gran 4.24 Count COMP METABOLIC PANEL Collected: 08/14/2017 Status: F Source: [place] 8:15 AM [facility] REPOSITORY TYPE CODE TESTS RESULT OUT OF REFERENCE UNITS RANGE LAB TP 6.3-8.0 g/dL Protein, Total 6.3 LAB ALB 3.9-4.9 g/dL Albumin 4.1 LAB CA 8.5-10.2 mg/dL Calcium, Total 9.1 LAB TBIL 0.2-1.3 mg/dL Bilirubin, Total 0.2 LAB ALKP 32-117 U/L Alkaline Phosphatase 75 LAB AST 13-35 U/L AST 18 LAB GLU 74-99 mg/dL Glucose High 140 Result Comment: The [place] Diabetes Association (ADA) provides guidance for cutoff values for fasting glucose and random glucose. The ADA defines fasting as no caloric intake for at least 8 hours. Fas ting plasma glucose results between 100 to 125 mg/dL indicate increased risk for diabetes (prediabetes). Fasting plasma glucose results greater than or equal to 126 mg/dL meet the criteria for diagnosis of diabetes. In the absence of unequivocal hyperglycemia, results should be confirmed by repeat testing. In a patient with classic symptoms of hyperglycemia or hyperglycemic crisis, random plasma glucose results greater than or equal to 200 mg/dL meet the criteria for diagnosis of diabetes. Reference: Standards of Medical Care in Diabetes 2016, [place] [employer] Association. Diabetes Care. 2016.39(Suppl 1). LAB BUN 7-21 mg/dL BUN Low 5 LAB CRET 0.58-0.96 mg/dL Creatinine 0.64 LAB NA 136-144 mmol/L Sodium 140 LAB K 3.7-5.1 mmol/L Potassium 3.9 LAB CL 97-105 mmol/L Chloride 101 LAB CO2 22-30 mmol/L CO2 26 LAB AGAP 9-18 mmol/L Anion Gap 13 LAB ALT 7-38 U/L ALT 16 LAB GFRAA eGFR- Amer. >60 LAB GFRNAA . eGFR-All Other Races >60 Result Comment: eGFR (Estimated GFR) Units of measure: mL/min/1.73 meters squared eGFR is derived from the reexpressed MDRD Study equation using the following parameters: serum creatinine, age, gender and race. The creatinine assay has been calibrated to be traceable to IDMS. An eGFR <60 mL/min/1.73m2 for >3 months is consistent with chronic kidney disease. Refer to KDOQI guidelines for clinical interpretation. In patients with unstable renal function, e.g. those with acute kidney injury, the eGFR may not accurately reflect actual GFR. Performed By: #### CMP #### [facility] [place] [facility] [address], [place] [address] PROGRESS Observed: 07/31/2017 Status: COMPLETED Source: [place] 11:44 AM [facility] [place] REPOSITORY HNO ID: [id number] Author: Harpreet Pantoja Service: (none) Author Type: Physician Type: Progress Notes Filed: 07/31/2017 11:50 AM Note Text: Diagnosis: 1) Breast cancer. HPI: The patient is a 62-year-old female was a past medical history significant for diabetes and psoriatic arthritis. Patient had a screening mammogram performed on 03/22/2017 (only 3 months past annual date of previous study). There was a new mass identified in the left breast as being indeterminate. Further studies were recommended. Diagnostic imaging done on 03/28/2017 demonstrated a 3 cm irregular mass in left breast consistent with carcinoma and was highly suggestive of malignancy. Underwent core needle biopsy on 2017. Pathology: Left breast, ultrasound-guided needle core biopsy: Invasive ductal carcinoma, nuclear grade 3 (1 cm in greatest length). See comment. ER (clone 6F11) >95%, strong RI (clone 16/1E2) variable, 0-11%, weak Her-2Neu (clone CB11) 1+ Underwent left-sided mastectomy with left sentinel axillary lymph node biopsy along with prophylactic right-sided mastectomy on 04/20/2017. Pathology: FROZEN SECTION DIAGNOSIS A. Left axillary sentinel lymph nodes, biopsy: Three out of three lymph nodes positive for macrometastatic carcinoma. MICROSCOPIC DIAGNOSIS A. Left axillary sentinel lymph nodes, biopsy: Three out of three lymph nodes positive for macrometastatic carcinoma. See comment. B. Left breast, mastectomy: Invasive ductal carcinoma. C. Right breast: Focal intraductal hyperplasia without atypia. Negative for carcinoma in the sections examined. D. Extra skin and tissue left breast: Negative for carcinoma. INVASIVE BREAST CANCER SUMMARY: (Including specimen A AND B) Specimen ? total breast (including nipple and skin). Procedure ? total mastectomy (including nipple and skin). Lymph node sampling ? sentinel lymph nodes Specimen integrity ? single intact specimen. Specimen laterality - left Tumor size ? 3.5 x 3.3 x 3 cm Tumor focality ? single focus of invasive carcinoma Macroscopic and Microscopic extent of tumor: Skin ? invasive carcinoma does not invade into the dermis or epidermis. Nipple ? ductal carcinoma in situ does not nipple epidermis. Skeletal muscle ? no skeletal muscle present. Ductal carcinoma in situ (DCIS) ? no ductal carcinoma in situ is present. Lobular carcinoma in situ (LCIS) ? not identified Histologic type of invasive carcinoma ? invasive ductal carcinoma (no special type). Histologic Grade ([place] grade): Glandular/tubular differentiation - score 3 Nuclear pleomorphism - score 3 Mitotic count ? score 2 Overall grade - 3 (score of 8) Margins - Margins uninvolved by invasive carcinoma. The invasive carcinoma is 1.5 cm away from the closest posterior margin. Treatment effect: Response to presurgical (neoadjuvant) therapy - no known presurgical therapy. Lymph-Vascular invasion ? not identified Dermal lymph-vascular invasion - not identified Lymph nodes: Number of sentinel lymph nodes examined - 3 Total number of lymph nodes examined (sentinel and nonsentinel) - 3 Number of lymph nodes with macrometastases - 3 Number of lymph nodes with micrometastases and isolated tumor cells - 0 Size of largest metastatic deposit ? 3.6 cm Extranodal extension ? present, focal (0.4 cm in greatest dimension) Distance metastasis ? not applicable Additional pathologic findings ? fibrocystic changes and intraductal hyperplasia without atypia. Ancillary studies - previously performed on section of tumor ([id number] / [id number]). ER ? positive (>95%, strong) RI ? positive (variable, 0-11%, weak) Her2 bhavani ? negative (1+) Microcalcifications ? not identified Clinical history - Please make reference to previous specimen ([id number]) left breast, ultrasound-guided needle core biopsy with diagnosis of invasive ductal carcinoma. PATHOLOGIC STAGE: pT2 pN1a(sn) Mx The above summary is in compliance with [employer] [place] [employer] (CAP) Cancer Protocols Checklist and [place] Joint Committee on Cancer (AJCC), Staging Manual, 8th Ed. COMMENT A. The lymph nodes are almost completely involved by the metastatic tumor. The largest lymph node measures 3.6 cm in greatest dimension. The largest focus of metastasis measures 3.6 cm in greatest dimension. Focal extranodal distention is noted which measures 0.4 cm in greatest dimension. Underwent completion axillary dissection 05/27/2017. Pathology: MICROSCOPIC DIAGNOSIS A. Left axillary contents, regional lymphadenectomy: Isolated metastatic tumor cells in one of seven lymph nodes. B. ?Dog ear,? excision: Skin with attached fibrofatty tissue with reactive and reparative change and suture granulomas. No evidence of malignancy. COMMENT Case has been reviewed in consultation with Dr. Skinner who concurs with the above diagnosis. MICROSCOPIC DESCRIPTION Slides are reviewed. A. The largest lymph node contains benign histiocytic proliferation, fibrosis and minimal chronic inflammation consistent with previous biopsy and resection ([id number]). Immunohistochemistry ([id number]) supports the presence of isolated metastatic tumor cells in one out of seven lymph nodes. Current therapy: 1) Adjuvant AC followed by Taxol. Presents for ongoing oncologic management. Evaluation for cycle #3. Interim history: Fatigue lingering longer following each cycle. Feels like she's having more generalized fluid retention. Has eaten more salty foods lately and has been working outside in the heat more this weekend. No symptoms of cardiomyopathy including chest pain/pressure, palpitations, shortness of breath at rest or with exertion, lower extremity, PND or orthopnea. Nausea following each cycle, but Zofran helps. Has not had vomiting. PMH, medications and allergies personally reviewed by me today. Any changes documented in appropriate section. ROS: Constitutional: Denies episodes of fever and night sweats. Neuro: Denies OWENS, vertigo, dizziness and imbalance. HEENT: No recent change in voice, vision or hearing. Resp: Denies cough, wheeze and hemoptysis. CVS: See above. : Denies dysuria or gross hematuria. No symptoms of bladder outlet obstruction. Endo: Denies hot flashes. Denies polyuria and polydipsia. Denies heat and cold intolerance. Musculoskeletal: OA of shoulders and knees. Psoriatic arthritis affects hands and wrists--good control with Otezla. Derm: Psoriatic plaques resolved with Otezla. Heme: Denies unusual bleeding and unexplained bruising. Psych: Normal mood. PHYSICAL EXAM: Vitals: Blood pressure 143/65, pulse 66, temperature 37.1 ?C (98.7 ?F), temperature source Oral, weight 86 kg (189 lb 8 oz), last menstrual period 02/04/2010. Well-appearing and in no acute distress. EYES: Sclerae are anicteric bilaterally. ENT: Oral mucosa is unremarkable. NECK: Supple. LYMPHATIC: There is no palpable cervical, supraclavicular, axillary adenopathy. RESPIRATORY: Inspiratory breath sounds are of normal intensity in all peters. No rales, wheezes or rhonchi. CARDIOVASCULAR: Rhythm is regular. Normal intensity S1/S2. There is no gallop or murmur. BREAST: Bilateral mastectomy sites healing well. ABDOMEN: The abdomen is nondistended. No organomegaly. No tenderness. Extremities: No swelling or edema now. SKIN: She has mild changes of angular dugan lightest. A few small pustular lesions on the right side. NEUROLOGIC: sheeter operator II-XII are grossly intact. No focal motor weakness. MUSCULOSKELETAL: No muscle wasting. 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 -pT2 (3.5 cm; grade 3; no LVI) pN1a (3 of 3 SLNs) MX ER/RI positive, HER2 negative invasive ductal carcinoma the left breast. -Staging form in problem list previously completed. -She continues to tolerate adjuvant chemotherapy very well thus far. -Again addressed the role of aromatase inhibitor therapy. Consider clinical trial SWOG 1207 as disease is high risk (+LNs and grade 3 tumor). Plan: -Continue chemotherapy. -Radiation opinion for axillary radiation following chemotherapy. DO PHYLLIS Mc ABS GR + CBC Collected: 07/31/2017 Status: F Source: [place] 11:30 AM [facility] REPOSITORY TYPE CODE TESTS RESULT OUT OF REFERENCE UNITS RANGE LAB WWBC 3.70-11.00 k/uL Phyllis WBC 4.78 LAB WRBC 3.90-5.20 m/uL [place] RBC 3.57 LAB WHGB 11.5-15.5 g/dL Low [place] Hemoglobin 9.9 LAB WHCT 36.0-46.0 % Low [place] Hematocrit 30.6 LAB WMCV 80.0-100.0 fL Phyll[place] MCV 85.7 LAB WMCH 26.0-34.0 pg [place] MCH 27.7 LAB WMCHC 30.5-36.0 g/dL [place] MCHC 32.4 LAB WRDW 11.5-15.0 % [place] High RDW 16.9 LAB WPLT 150-400 k/uL [place] Platelet Cnt 191 LAB WMPV 9.0-12.7 fL Low Phyllis MPV 8.3 Result Comment: Test performed at: [facility] [place], [address] [place] [address]. LAB ABGRAN 1.45-7.50 k/uL Absol Gran 3.11 Count CNOVSP Observed: 07/31/2017 Status: COMPLETED Source: [place] 11:30 AM [facility] REPOSITORY Visit (SP) Office ([place]) JESSICA RODRIGUEZ ([id number]) 1955 F Date Time Provider Department 07/31/17 11:30 AM HARPREET PANTOJA During your visit today, we recorded the following information about you: Temperature Pulse Blood pressure Weight 98.7 degrees 66/minute 143/65 86 kg Harpreet Pantoja DO 07/31/2017 11:50 AM Signed Diagnosis: 1) Breast cancer. HPI: The patient is a 62-year-old female was a past medical history significant for diabetes and psoriatic arthritis. Patient had a screening mammogram performed on 03/22/2017 (only 3 months past annual date of previous study). There was a new mass identified in the left breast as being indeterminate. Further studies were recommended. Diagnostic imaging done on 03/28/2017 demonstrated a 3 cm irregular mass in left breast consistent with carcinoma and was highly suggestive of malignancy. Underwent core needle biopsy on 2017. Pathology: Left breast, ultrasound-guided needle core biopsy: Invasive ductal carcinoma, nuclear grade 3 (1 cm in greatest length). See comment. ER (clone 6F11) >95%, strong RI (clone 16/1E2) variable, 0-11%, weak Her-2Neu (clone CB11) 1+ Underwent left-sided mastectomy with left sentinel axillary lymph node biopsy along with prophylactic right-sided mastectomy on 04/20/2017. Pathology: FROZEN SECTION DIAGNOSIS A. Left axillary sentinel lymph nodes, biopsy: Three out of three lymph nodes positive for macrometastatic carcinoma. MICROSCOPIC DIAGNOSIS A. Left axillary sentinel lymph nodes, biopsy: Three out of three lymph nodes positive for macrometastatic carcinoma. See comment. B. Left breast, mastectomy: Invasive ductal carcinoma. C. Right breast: Focal intraductal hyperplasia without atypia. Negative for carcinoma in the sections examined. D. Extra skin and tissue left breast: Negative for carcinoma. INVASIVE BREAST CANCER SUMMARY: (Including specimen A AND B) Specimen ? total breast (including nipple and skin). Procedure ? total mastectomy (including nipple and skin). Lymph node sampling ? sentinel lymph nodes Specimen integrity ? single intact specimen. Specimen laterality - left Tumor size ? 3.5 x 3.3 x 3 cm Tumor focality ? single focus of invasive carcinoma Macroscopic and Microscopic extent of tumor: Skin ? invasive carcinoma does not invade into the dermis or epidermis. Nipple ? ductal carcinoma in situ does not nipple epidermis. Skeletal muscle ? no skeletal muscle present. Ductal carcinoma in situ (DCIS) ? no ductal carcinoma in situ is present. Lobular carcinoma in situ (LCIS) ? not identified Histologic type of invasive carcinoma ? invasive ductal carcinoma (no special type). Histologic Grade ([place] grade): Glandular/tubular differentiation - score 3 Nuclear pleomorphism - score 3 Mitotic count ? score 2 Overall grade - 3 (score of 8) Margins - Margins uninvolved by invasive carcinoma. The invasive carcinoma is 1.5 cm away from the closest posterior margin. Treatment effect: Response to presurgical (neoadjuvant) therapy - no known presurgical therapy. Lymph-Vascular invasion ? not identified Dermal lymph-vascular invasion - not identified Lymph nodes: Number of sentinel lymph nodes examined - 3 Total number of lymph nodes examined (sentinel and nonsentinel) - 3 Number of lymph nodes with macrometastases - 3 Number of lymph nodes with micrometastases and isolated tumor cells - 0 Size of largest metastatic deposit ? 3.6 cm Extranodal extension ? present, focal (0.4 cm in greatest dimension) Distance metastasis ? not applicable Additional pathologic findings ? fibrocystic changes and intraductal hyperplasia without atypia. Ancillary studies - previously performed on section of tumor ([id number] / [id number]). ER ? positive (>95%, strong) RI ? positive (variable, 0-11%, weak) Her2 bhavani ? negative (1+) Microcalcifications ? not identified Clinical history - Please make reference to previous specimen ([id number]) left breast, ultrasound-guided needle core biopsy with diagnosis of invasive ductal carcinoma. PATHOLOGIC STAGE: pT2 pN1a(sn) Mx The above summary is in compliance with [employer] [place] [employer] (CAP) Cancer Protocols Checklist and [place] Joint Committee on Cancer (AJCC), Staging Manual, 8th Ed. COMMENT A. The lymph nodes are almost completely involved by the metastatic tumor. The largest lymph node measures 3.6 cm in greatest dimension. The largest focus of metastasis measures 3.6 cm in greatest dimension. Focal extranodal distention is noted which measures 0.4 cm in greatest dimension. Underwent completion axillary dissection 05/27/2017. Pathology: MICROSCOPIC DIAGNOSIS A. Left axillary contents, regional lymphadenectomy: Isolated metastatic tumor cells in one of seven lymph nodes. B. ?Dog ear,? excision: Skin with attached fibrofatty tissue with reactive and reparative change and suture granulomas. No evidence of malignancy. COMMENT Case has been reviewed in consultation with Dr. Skinner who concurs with the above diagnosis. MICROSCOPIC DESCRIPTION Slides are reviewed. A. The largest lymph node contains benign histiocytic proliferation, fibrosis and minimal chronic inflammation consistent with previous biopsy and resection ([id number]). Immunohistochemistry ([id number]) supports the presence of isolated metastatic tumor cells in one out of seven lymph nodes. Current therapy: 1) Adjuvant AC followed by Taxol. Presents for ongoing oncologic management. Evaluation for cycle #3. Interim history: Fatigue lingering longer following each cycle. Feels like she's having more generalized fluid retention. Has eaten more salty foods lately and has been working outside in the heat more this weekend. No symptoms of cardiomyopathy including chest pain/pressure, palpitations, shortness of breath at rest or with exertion, lower extremity, PND or orthopnea. Nausea following each cycle, but Zofran helps. Has not had vomiting. PMH, medications and allergies personally reviewed by me today. Any changes documented in appropriate section. ROS: Constitutional: Denies episodes of fever and night sweats. Neuro: Denies OWENS, vertigo, dizziness and imbalance. HEENT: No recent change in voice, vision or hearing. Resp: Denies cough, wheeze and hemoptysis. CVS: See above. : Denies dysuria or gross hematuria. No symptoms of bladder outlet obstruction. Endo: Denies hot flashes. Denies polyuria and polydipsia. Denies heat and cold intolerance. Musculoskeletal: OA of shoulders and knees. Psoriatic arthritis affects hands and wrists--good control with Otezla. Derm: Psoriatic plaques resolved with Otezla. Heme: Denies unusual bleeding and unexplained bruising. Psych: Normal mood. PHYSICAL EXAM: Vitals: Blood pressure 143/65, pulse 66, temperature 37.1 ?C (98.7 ?F), temperature source Oral, weight 86 kg (189 lb 8 oz), last menstrual period 02/04/2010. Well-appearing and in no acute distress. EYES: Sclerae are anicteric bilaterally. ENT: Oral mucosa is unremarkable. NECK: Supple. LYMPHATIC: There is no palpable cervical, supraclavicular, axillary adenopathy. RESPIRATORY: Inspiratory breath sounds are of normal intensity in all peters. No rales, wheezes or rhonchi. CARDIOVASCULAR: Rhythm is regular. Normal intensity S1/S2. There is no gallop or murmur. BREAST: Bilateral mastectomy sites healing well. ABDOMEN: The abdomen is nondistended. No organomegaly. No tenderness. Extremities: No swelling or edema now. SKIN: She has mild changes of angular dugan lightest. A few small pustular lesions on the right side. NEUROLOGIC: sheeter operator II-XII are grossly intact. No focal motor weakness. MUSCULOSKELETAL: No muscle wasting. 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 -pT2 (3.5 cm; grade 3; no LVI) pN1a (3 of 3 SLNs) MX ER/RI positive, HER2 negative invasive ductal carcinoma the left breast. -Staging form in problem list previously completed. -She continues to tolerate adjuvant chemotherapy very well thus far. -Again addressed the role of aromatase inhibitor therapy. Consider clinical trial SWOG 1207 as disease is high risk (+LNs and grade 3 tumor). Plan: -Continue chemotherapy. -Radiation opinion for axillary radiation following chemotherapy. 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) [C77.3] Follow-up and Disposition History Recorded Prescriptions as of 07/31/2017 Sig: ONDANSETRON HCL 8 MG TABLET Take 1 tablet by mouth every * ASCORBIC ACID (VITAMIN C) 500* Take 500 mg by mouth as neede* LIDOCAINE-PRILOCAINE 2.5 %-2.* Apply 1 application to affect* MELATONIN 3 MG TABLET Take 6 mg by mouth daily at b* OTC NUTRITIONAL SUPPLEMENT calm day IBUPROFEN 200 MG TABLET Take 600 mg by mouth twice da* METFORMIN ER 500 MG TABLET,EX* Take 1,000 mg by mouth once d* SUMATRIPTAN 100 MG TABLET Take 100 mg by mouth as neede* OMEPRAZOLE 40 MG CAPSULE,CARLYN* Take 40 mg by mouth once adia* IQVZFUFCHG-JOZHRLN-NAXQLAEG 5* Take 1 capsule by mouth once * TRAMADOL 50 MG TABLET Take 50 mg by mouth three lizeth* * FLUOXETINE 20 MG CAPSULE Take 20 mg by mouth once adia* * MULTIVITAMIN TABLET Take one(1) tablet daily. * CALCIUM + D 600 MG (1,500 MG)* Take one(1) tablet twice adia* * TYLENOL EXTRA STRENGTH 500 MG* Take two(2) tablets every six* Problem List As Of Date 07/31/2017 Noted Resolved Postmenopausal bleeding [N95.0] INVALID FOR* Ovarian cyst [N83.209] INVALID FOR* Malignant neoplasm of upper-outer quadrant of l*INVALID FOR* 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 Encounter Status:Closed by HARPREET PANTOJA DO on 07/31/17 COMP METABOLIC PANEL Collected: 07/31/2017 Status: F Source: [place] 11:[facility] REPOSITORY TYPE CODE TESTS RESULT OUT OF REFERENCE UNITS RANGE LAB TP 6.3-8.0 g/dL Low Protein, Total 5.9 LAB ALB 3.9-4.9 g/dL Low Albumin 3.8 LAB CA 8.5-10.2 mg/dL Calcium, Total 8.8 LAB TBIL 0.2-1.3 mg/dL Bilirubin, Total 0.2 LAB ALKP 32-117 U/L Alkaline Phosphatase 60 LAB AST 13-35 U/L AST 17 LAB GLU 74-99 mg/dL Glucose High 137 Result Comment: The [place] Diabetes Association (ADA) provides guidance for cutoff values for fasting glucose and random glucose. The ADA defines fasting as no caloric intake for at least 8 hours. Fas ting plasma glucose results between 100 to 125 mg/dL indicate increased risk for diabetes (prediabetes). Fasting plasma glucose results greater than or equal to 126 mg/dL meet the criteria for diagnosis of diabetes. In the absence of unequivocal hyperglycemia, results should be confirmed by repeat testing. In a patient with classic symptoms of hyperglycemia or hyperglycemic crisis, random plasma glucose results greater than or equal to 200 mg/dL meet the criteria for diagnosis of diabetes. Reference: Standards of Medical Care in Diabetes 2016, [place] [employer] Association. Diabetes Care. 2016.39(Suppl 1). LAB BUN 7-21 mg/dL BUN Low 5 LAB CRET 0.58-0.96 mg/dL Creatinine 0.58 LAB NA 136-144 mmol/L Sodium 141 LAB K 3.7-5.1 mmol/L Potassium 3.7 LAB CL 97-105 mmol/L Chloride 104 LAB CO2 22-30 mmol/L CO2 27 LAB AGAP 9-18 mmol/L Anion Gap 10 LAB ALT 7-38 U/L ALT 15 LAB GFRAA eGFR- Amer. >60 LAB GFRNAA . eGFR-All Other Races >60 Result Comment: eGFR (Estimated GFR) Units of measure: mL/min/1.73 meters squared eGFR is derived from the reexpressed MDRD Study equation using the following parameters: serum creatinine, age, gender and race. The creatinine assay has been calibrated to be traceable to IDMS. An eGFR <60 mL/min/1.73m2 for >3 months is consistent with chronic kidney disease. Refer to KDOQI guidelines for clinical interpretation. In patients with unstable renal function, e.g. those with acute kidney injury, the eGFR may not accurately reflect actual GFR. Performed By: #### CMP #### [facility] [id number] [id number] PROGRESS Observed: 07/17/2017 Status: COMPLETED Source: [place] 11:06 AM [facility] REPOSITORY HNO ID: [id number] Author: Harpreet Pantoja Service: (none) Author Type: Physician Type: Progress Notes Filed: 07/17/2017 11:24 AM Note Text: Diagnosis: 1) Breast cancer. HPI: The patient is a 62-year-old female was a past medical history significant for diabetes and psoriatic arthritis. Patient had a screening mammogram performed on 03/22/2017 (only 3 months past annual date of previous study). There was a new mass identified in the left breast as being indeterminate. Further studies were recommended. Diagnostic imaging done on 03/28/2017 demonstrated a 3 cm irregular mass in left breast consistent with carcinoma and was highly suggestive of malignancy. Underwent core needle biopsy on 2017. Pathology: Left breast, ultrasound-guided needle core biopsy: Invasive ductal carcinoma, nuclear grade 3 (1 cm in greatest length). See comment. ER (clone 6F11) >95%, strong RI (clone 16/1E2) variable, 0-11%, weak Her-2Neu (clone CB11) 1+ Underwent left-sided mastectomy with left sentinel axillary lymph node biopsy along with prophylactic right-sided mastectomy on 04/20/2017. Pathology: FROZEN SECTION DIAGNOSIS A. Left axillary sentinel lymph nodes, biopsy: Three out of three lymph nodes positive for macrometastatic carcinoma. MICROSCOPIC DIAGNOSIS A. Left axillary sentinel lymph nodes, biopsy: Three out of three lymph nodes positive for macrometastatic carcinoma. See comment. B. Left breast, mastectomy: Invasive ductal carcinoma. C. Right breast: Focal intraductal hyperplasia without atypia. Negative for carcinoma in the sections examined. D. Extra skin and tissue left breast: Negative for carcinoma. INVASIVE BREAST CANCER SUMMARY: (Including specimen A AND B) Specimen ? total breast (including nipple and skin). Procedure ? total mastectomy (including nipple and skin). Lymph node sampling ? sentinel lymph nodes Specimen integrity ? single intact specimen. Specimen laterality - left Tumor size ? 3.5 x 3.3 x 3 cm Tumor focality ? single focus of invasive carcinoma Macroscopic and Microscopic extent of tumor: Skin ? invasive carcinoma does not invade into the dermis or epidermis. Nipple ? ductal carcinoma in situ does not nipple epidermis. Skeletal muscle ? no skeletal muscle present. Ductal carcinoma in situ (DCIS) ? no ductal carcinoma in situ is present. Lobular carcinoma in situ (LCIS) ? not identified Histologic type of invasive carcinoma ? invasive ductal carcinoma (no special type). Histologic Grade ([place] grade): Glandular/tubular differentiation - score 3 Nuclear pleomorphism - score 3 Mitotic count ? score 2 Overall grade - 3 (score of 8) Margins - Margins uninvolved by invasive carcinoma. The invasive carcinoma is 1.5 cm away from the closest posterior margin. Treatment effect: Response to presurgical (neoadjuvant) therapy - no known presurgical therapy. Lymph-Vascular invasion ? not identified Dermal lymph-vascular invasion - not identified Lymph nodes: Number of sentinel lymph nodes examined - 3 Total number of lymph nodes examined (sentinel and nonsentinel) - 3 Number of lymph nodes with macrometastases - 3 Number of lymph nodes with micrometastases and isolated tumor cells - 0 Size of largest metastatic deposit ? 3.6 cm Extranodal extension ? present, focal (0.4 cm in greatest dimension) Distance metastasis ? not applicable Additional pathologic findings ? fibrocystic changes and intraductal hyperplasia without atypia. Ancillary studies - previously performed on section of tumor ([id number] / [id number]). ER ? positive (>95%, strong) RI ? positive (variable, 0-11%, weak) Her2 bhavani ? negative (1+) Microcalcifications ? not identified Clinical history - Please make reference to previous specimen ([id number]) left breast, ultrasound-guided needle core biopsy with diagnosis of invasive ductal carcinoma. PATHOLOGIC STAGE: pT2 pN1a(sn) Mx The above summary is in compliance with [employer] [place] [employer] (CAP) Cancer Protocols Checklist and [place] Joint Committee on Cancer (AJCC), Staging Manual, 8th Ed. COMMENT A. The lymph nodes are almost completely involved by the metastatic tumor. The largest lymph node measures 3.6 cm in greatest dimension. The largest focus of metastasis measures 3.6 cm in greatest dimension. Focal extranodal distention is noted which measures 0.4 cm in greatest dimension. Underwent completion axillary dissection 05/27/2017. Pathology: MICROSCOPIC DIAGNOSIS A. Left axillary contents, regional lymphadenectomy: Isolated metastatic tumor cells in one of seven lymph nodes. B. ?Dog ear,? excision: Skin with attached fibrofatty tissue with reactive and reparative change and suture granulomas. No evidence of malignancy. COMMENT Case has been reviewed in consultation with Dr. Skinner who concurs with the above diagnosis. MICROSCOPIC DESCRIPTION Slides are reviewed. A. The largest lymph node contains benign histiocytic proliferation, fibrosis and minimal chronic inflammation consistent with previous biopsy and resection ([id number]). Immunohistochemistry ([id number]) supports the presence of isolated metastatic tumor cells in one out of seven lymph nodes. Current therapy: 1) Adjuvant AC followed by Taxol. Presents for ongoing oncologic management. Evaluation for cycle #3. Interim history: Fatigue and malaise last a little longer with cycle 2. She takes Zofran around the clock for 5 days following her cycle. By doing so she has no nausea. Her appetite stays good. She spends most of those 5 days when she has been malaise resting and just doing very light activity around the house. 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 This was a pre-existing condition. No symptoms of cardiomyopathy including chest pain/pressure, PND, orthopnea, lower extremity swelling/edema. No palpitation. No shortness of breath at rest or with moderate exertion. Mild fissuring and tenderness at the corners of the mouth. PMH, medications and allergies personally reviewed by me today. Any changes documented in appropriate section. ROS: Constitutional: Denies episodes of fever and night sweats. Not significantly fatigued. Normal appetite. Neuro: Denies OWENS, vertigo, dizziness and imbalance. HEENT: No recent change in voice, vision or hearing. Resp: Denies cough, wheeze and hemoptysis. CVS: See above. : Denies dysuria or gross hematuria. No symptoms of bladder outlet obstruction. Endo: Denies hot flashes. Denies polyuria and polydipsia. Denies heat and cold intolerance. Musculoskeletal: OA of shoulders and knees. Psoriatic arthritis affects hands and wrists--good control with Otezla. Derm: Psoriatic plaques resolved with Otezla. Heme: Denies unusual bleeding and unexplained bruising. Psych: Normal mood. PHYSICAL EXAM: Vitals: Blood pressure 135/63, pulse 77, temperature 37.1 ?C (98.8 ?F), temperature source Tympanic, weight 86.2 kg (190 lb), last menstrual period 02/04/2010. Well-appearing and in no acute distress. EYES: Sclerae are anicteric bilaterally. ENT: Oral mucosa is unremarkable. NECK: Supple. LYMPHATIC: There is no palpable cervical, supraclavicular, axillary adenopathy. RESPIRATORY: Inspiratory breath sounds are of normal intensity in all peters. No rales, wheezes or rhonchi. CARDIOVASCULAR: Rhythm is regular. Normal intensity S1/S2. There is no gallop or murmur. BREAST: Bilateral mastectomy sites healing well. ABDOMEN: The abdomen is nondistended. No organomegaly. No tenderness. Extremities: No swelling or edema. SKIN: She has mild changes of angular dugan lightest. A few small pustular lesions on the right side. NEUROLOGIC: sheeter operator II-XII are grossly intact. No focal motor weakness. MUSCULOSKELETAL: No muscle wasting. 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 -pT2 (3.5 cm; grade 3; no LVI) pN1a (3 of 3 SLNs) MX ER/RI positive, HER2 negative invasive ductal carcinoma the left breast. -Staging form in problem list previously completed. -She continues to tolerate adjuvant chemotherapy very well thus far. -Again addressed the role of aromatase inhibitor therapy. Consider clinical trial SWOG 1207 as disease is high risk (+LNs and grade 3 tumor). Plan: -Continue chemotherapy. -Radiation opinion for axillary radiation following chemotherapy. DO MORGAN McOVSP Observed: 07/17/2017 Status: COMPLETED Source: [place] 10:50 AM [facility] REPOSITORY Visit (SP) Office ([place]) JESSICA RODRIGUEZ ([id number]) 1955 F Date Time Provider Department 07/17/17 10:50 AM HARPREET PANTOJA During your visit today, we recorded the following information about you: Temperature Pulse Blood pressure Weight 98.8 degrees 77/minute 135/63 86.2 kg Harpreet Pantoja DO 07/17/2017 11:24 AM Signed Diagnosis: 1) Breast cancer. HPI: The patient is a 62-year-old female was a past medical history significant for diabetes and psoriatic arthritis. Patient had a screening mammogram performed on 03/22/2017 (only 3 months past annual date of previous study). There was a new mass identified in the left breast as being indeterminate. Further studies were recommended. Diagnostic imaging done on 03/28/2017 demonstrated a 3 cm irregular mass in left breast consistent with carcinoma and was highly suggestive of malignancy. Underwent core needle biopsy on 2017. Pathology: Left breast, ultrasound-guided needle core biopsy: Invasive ductal carcinoma, nuclear grade 3 (1 cm in greatest length). See comment. ER (clone 6F11) >95%, strong RI (clone 16/1E2) variable, 0-11%, weak Her-2Neu (clone CB11) 1+ Underwent left-sided mastectomy with left sentinel axillary lymph node biopsy along with prophylactic right-sided mastectomy on 04/20/2017. Pathology: FROZEN SECTION DIAGNOSIS A. Left axillary sentinel lymph nodes, biopsy: Three out of three lymph nodes positive for macrometastatic carcinoma. MICROSCOPIC DIAGNOSIS A. Left axillary sentinel lymph nodes, biopsy: Three out of three lymph nodes positive for macrometastatic carcinoma. See comment. B. Left breast, mastectomy: Invasive ductal carcinoma. C. Right breast: Focal intraductal hyperplasia without atypia. Negative for carcinoma in the sections examined. D. Extra skin and tissue left breast: Negative for carcinoma. INVASIVE BREAST CANCER SUMMARY: (Including specimen A AND B) Specimen ? total breast (including nipple and skin). Procedure ? total mastectomy (including nipple and skin). Lymph node sampling ? sentinel lymph nodes Specimen integrity ? single intact specimen. Specimen laterality - left Tumor size ? 3.5 x 3.3 x 3 cm Tumor focality ? single focus of invasive carcinoma Macroscopic and Microscopic extent of tumor: Skin ? invasive carcinoma does not invade into the dermis or epidermis. Nipple ? ductal carcinoma in situ does not nipple epidermis. Skeletal muscle ? no skeletal muscle present. Ductal carcinoma in situ (DCIS) ? no ductal carcinoma in situ is present. Lobular carcinoma in situ (LCIS) ? not identified Histologic type of invasive carcinoma ? invasive ductal carcinoma (no special type). Histologic Grade (Raymon grade): Glandular/tubular differentiation - score 3 Nuclear pleomorphism - score 3 Mitotic count ? score 2 Overall grade - 3 (score of 8) Margins - Margins uninvolved by invasive carcinoma. The invasive carcinoma is 1.5 cm away from the closest posterior margin. Treatment effect: Response to presurgical (neoadjuvant) therapy - no known presurgical therapy. Lymph-Vascular invasion ? not identified Dermal lymph-vascular invasion - not identified Lymph nodes: Number of sentinel lymph nodes examined - 3 Total number of lymph nodes examined (sentinel and nonsentinel) - 3 Number of lymph nodes with macrometastases - 3 Number of lymph nodes with micrometastases and isolated tumor cells - 0 Size of largest metastatic deposit ? 3.6 cm Extranodal extension ? present, focal (0.4 cm in greatest dimension) Distance metastasis ? not applicable Additional pathologic findings ? fibrocystic changes and intraductal hyperplasia without atypia. Ancillary studies - previously performed on section of tumor ([id number] / [id number]). ER ? positive (>95%, strong) RI ? positive (variable, 0-11%, weak) Her2 bhavani ? negative (1+) Microcalcifications ? not identified Clinical history - Please make reference to previous specimen ([id number]) left breast, ultrasound-guided needle core biopsy with diagnosis of invasive ductal carcinoma. PATHOLOGIC STAGE: pT2 pN1a(sn) Mx The above summary is in compliance with [employer] [place] [employer] (CAP) Cancer Protocols Checklist and [place] [employer] Committee on Cancer (AJCC), Staging Manual, 8th Ed. COMMENT A. The lymph nodes are almost completely involved by the metastatic tumor. The largest lymph node measures 3.6 cm in greatest dimension. The largest focus of metastasis measures 3.6 cm in greatest dimension. Focal extranodal distention is noted which measures 0.4 cm in greatest dimension. Underwent completion axillary dissection 05/27/2017. Pathology: MICROSCOPIC DIAGNOSIS A. Left axillary contents, regional lymphadenectomy: Isolated metastatic tumor cells in one of seven lymph nodes. B. ?Dog ear,? excision: Skin with attached fibrofatty tissue with reactive and reparative change and suture granulomas. No evidence of malignancy. COMMENT Case has been reviewed in consultation with Dr. Skinner who concurs with the above diagnosis. MICROSCOPIC DESCRIPTION Slides are reviewed. A. The largest lymph node contains benign histiocytic proliferation, fibrosis and minimal chronic inflammation consistent with previous biopsy and resection ([id number]). Immunohistochemistry ([id number]) supports the presence of isolated metastatic tumor cells in one out of seven lymph nodes. Current therapy: 1) Adjuvant AC followed by Taxol. Presents for ongoing oncologic management. Evaluation for cycle #3. Interim history: Fatigue and malaise last a little longer with cycle 2. She takes Zofran around the clock for 5 days following her cycle. By doing so she has no nausea. Her appetite stays good. She spends most of those 5 days when she has been malaise resting and just doing very light activity around the house. 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 This was a pre-existing condition. No symptoms of cardiomyopathy including chest pain/pressure, PND, orthopnea, lower extremity swelling/edema. No palpitation. No shortness of breath at rest or with moderate exertion. Mild fissuring and tenderness at the corners of the mouth. PMH, medications and allergies personally reviewed by me today. Any changes documented in appropriate section. ROS: Constitutional: Denies episodes of fever and night sweats. Not significantly fatigued. Normal appetite. Neuro: Denies OWENS, vertigo, dizziness and imbalance. HEENT: No recent change in voice, vision or hearing. Resp: Denies cough, wheeze and hemoptysis. CVS: See above. : Denies dysuria or gross hematuria. No symptoms of bladder outlet obstruction. Endo: Denies hot flashes. Denies polyuria and polydipsia. Denies heat and cold intolerance. Musculoskeletal: OA of shoulders and knees. Psoriatic arthritis affects hands and wrists--good control with Otezla. Derm: Psoriatic plaques resolved with Otezla. Heme: Denies unusual bleeding and unexplained bruising. Psych: Normal mood. PHYSICAL EXAM: Vitals: Blood pressure 135/63, pulse 77, temperature 37.1 ?C (98.8 ?F), temperature source Tympanic, weight 86.2 kg (190 lb), last menstrual period 02/04/2010. Well-appearing and in no acute distress. EYES: Sclerae are anicteric bilaterally. ENT: Oral mucosa is unremarkable. NECK: Supple. LYMPHATIC: There is no palpable cervical, supraclavicular, axillary adenopathy. RESPIRATORY: Inspiratory breath sounds are of normal intensity in all peters. No rales, wheezes or rhonchi. CARDIOVASCULAR: Rhythm is regular. Normal intensity S1/S2. There is no gallop or murmur. BREAST: Bilateral mastectomy sites healing well. ABDOMEN: The abdomen is nondistended. No organomegaly. No tenderness. Extremities: No swelling or edema. SKIN: She has mild changes of angular dugan lightest. A few small pustular lesions on the right side. NEUROLOGIC: sheeter operator II-XII are grossly intact. No focal motor weakness. MUSCULOSKELETAL: No muscle wasting. 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 -pT2 (3.5 cm; grade 3; no LVI) pN1a (3 of 3 SLNs) MX ER/RI positive, HER2 negative invasive ductal carcinoma the left breast. -Staging form in problem list previously completed. -She continues to tolerate adjuvant chemotherapy very well thus far. -Again addressed the role of aromatase inhibitor therapy. Consider clinical trial SWOG 1207 as disease is high risk (+LNs and grade 3 tumor). Plan: -Continue chemotherapy. -Radiation opinion for axillary radiation following chemotherapy. 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) [C77.3] Follow-up and Disposition History Recorded Prescriptions as of 07/17/2017 Sig: ASCORBIC ACID (VITAMIN C) 500* Take 500 mg by mouth as neede* LORAZEPAM 1 MG TABLET Take 1 tablet by mouth every * LIDOCAINE-PRILOCAINE 2.5 %-2.* Apply 1 application to affect* OTC NUTRITIONAL SUPPLEMENT calm day IBUPROFEN 200 MG TABLET Take 600 mg by mouth twice da* ONDANSETRON HCL 8 MG TABLET Take 1 tablet by mouth every * METFORMIN ER 500 MG TABLET,EX* Take 1,000 mg by mouth once d* OMEPRAZOLE 40 MG CAPSULE,CARLYN* Take 40 mg by mouth once adia* [id number] 5* Take 1 capsule by mouth once * * FLUOXETINE 20 MG CAPSULE Take 20 mg by mouth once adia* * MULTIVITAMIN TABLET Take one(1) tablet daily. 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 Encounter Status:Closed by HARPREET PANTOJA DO on 07/17/17 PHYLLIS ABS GR + CBC Collected: 07/17/2017 Status: F Source: [place] 10:45 AM [facility] RE[facility] TYPE CODE TESTS RESULT OUT OF REFERENCE UNITS RANGE LAB WWBC 3.70-11.00 k/uL Phyllis WBC 8.82 LAB WRBC 3.90-5.20 m/uL Low [place] RBC 3.76 LAB WHGB 11.5-15.5 g/dL Low [place] Hemoglobin 10.4 LAB WHCT 36.0-46.0 % Low Phyllis Hematocrit 32.3 LAB WMCV 80.0-100.0 fL Phyllis MCV 85.9 LAB WMCH 26.0-34.0 pg Phyllis MCH 27.7 LAB WMCHC 30.5-36.0 g/dL Phyllis MCHC 32.2 LAB WRDW 11.5-15.0 % Phyllis High RDW 15.1 LAB WPLT 150-400 k/uL [place] Platelet Cnt 250 LAB WMPV 9.0-12.7 fL Low Phyllis MPV 8.0 Result Comment: Test performed at: [facility], [address] [place] [address] Rd[address] [place] [address]. LAB ABGRAN 1.45-7.50 k/uL Absol Gran 6.65 Count COMP METABOLIC PANEL Collected: 07/17/2017 Status: F Source: [place] 10:45 AM [facility] TYPE CODE TESTS RESULT OUT OF REFERENCE UNITS RANGE LAB TP 6.3-8.0 g/dL Low Protein, Total 6.2 LAB ALB 3.9-4.9 g/dL Low Albumin 3.8 LAB CA 8.5-10.2 mg/dL Calcium, Total 8.7 LAB TBIL 0.2-1.3 mg/dL Low Bilirubin, Total <0.2 LAB ALKP 32-117 U/L Alkaline Phosphatase 78 LAB AST 13-35 U/L AST 16 LAB GLU 74-99 mg/dL Glucose High 161 Result Comment: The [place] [employer] Association (ADA) provides guidance for cutoff values for fasting glucose and random glucose. The ADA defines fasting as no caloric intake for at least 8 hours. Fas ting plasma glucose results between 100 to 125 mg/dL indicate increased risk for diabetes (prediabetes). Fasting plasma glucose results greater than or equal to 126 mg/dL meet the criteria for diagnosis of diabetes. In the absence of unequivocal hyperglycemia, results should be confirmed by repeat testing. In a patient with classic symptoms of hyperglycemia or hyperglycemic crisis, random plasma glucose results greater than or equal to 200 mg/dL meet the criteria for diagnosis of diabetes. Reference: Standards of Medical Care in Diabetes 2016, [place] [employer]. Diabetes Care. 2016.39(Suppl 1). LAB BUN 7-21 mg/dL BUN Low 6 LAB CRET 0.58-0.96 mg/dL Creatinine Low 0.57 LAB NA 136-144 mmol/L Sodium 142 LAB K 3.7-5.1 mmol/L Potassium 4.4 LAB CL 97-105 mmol/L Chloride 100 LAB CO2 22-30 mmol/L CO2 27 LAB AGAP 9-18 mmol/L Anion Gap 15 LAB ALT 7-38 U/L ALT 14 LAB GFRAA eGFR- Amer. >60 LAB GFRNAA . eGFR-All Other Races >60 Result Comment: eGFR (Estimated GFR) Units of measure: mL/min/1.73 meters squared eGFR is derived from the reexpressed MDRD Study equation using the following parameters: serum creatinine, age, gender and race. The creatinine assay has been calibrated to be traceable to IDMS. An eGFR <60 mL/min/1.73m2 for >3 months is consistent with chronic kidney disease. Refer to KDOQI guidelines for clinical interpretation. In patients with unstable renal function, e.g. those with acute kidney injury, the eGFR may not accurately reflect actual GFR. Performed By: #### CMP #### [facility] [address], [place] [address] PROGRESS Observed: 07/03/2017 Status: COMPLETED Source: [place] 11:11 AM [facility] REPOSITORY O ID: [id number] Author: Harpreet Pantoja Service: (none) Author Type: Physician Type: Progress Notes Filed: 07/03/2017 11:48 AM Note Text: Diagnosis: 1) HPI: The patient is a 62-year-old female was a past medical history significant for diabetes and psoriatic arthritis. Patient had a screening mammogram performed on 03/22/2017 (only 3 months past annual date of previous study). There was a new mass identified in the left breast as being indeterminate. Further studies were recommended. Diagnostic imaging done on 03/28/2017 demonstrated a 3 cm irregular mass in left breast consistent with carcinoma and was highly suggestive of malignancy. Underwent core needle biopsy on 2017. Pathology: Left breast, ultrasound-guided needle core biopsy: Invasive ductal carcinoma, nuclear grade 3 (1 cm in greatest length). See comment. ER (clone 6F11) >95%, strong RI (clone 16/1E2) variable, 0-11%, weak Her-2Neu (clone CB11) 1+ Underwent left-sided mastectomy with left sentinel axillary lymph node biopsy along with prophylactic right-sided mastectomy on 04/20/2017. Pathology: FROZEN SECTION DIAGNOSIS A. Left axillary sentinel lymph nodes, biopsy: Three out of three lymph nodes positive for macrometastatic carcinoma. MICROSCOPIC DIAGNOSIS A. Left axillary sentinel lymph nodes, biopsy: Three out of three lymph nodes positive for macrometastatic carcinoma. See comment. B. Left breast, mastectomy: Invasive ductal carcinoma. C. Right breast: Focal intraductal hyperplasia without atypia. Negative for carcinoma in the sections examined. D. Extra skin and tissue left breast: Negative for carcinoma. INVASIVE BREAST CANCER SUMMARY: (Including specimen A AND B) Specimen ? total breast (including nipple and skin). Procedure ? total mastectomy (including nipple and skin). Lymph node sampling ? sentinel lymph nodes Specimen integrity ? single intact specimen. Specimen laterality - left Tumor size ? 3.5 x 3.3 x 3 cm Tumor focality ? single focus of invasive carcinoma Macroscopic and Microscopic extent of tumor: Skin ? invasive carcinoma does not invade into the dermis or epidermis. Nipple ? ductal carcinoma in situ does not nipple epidermis. Skeletal muscle ? no skeletal muscle present. Ductal carcinoma in situ (DCIS) ? no ductal carcinoma in situ is present. Lobular carcinoma in situ (LCIS) ? not identified Histologic type of invasive carcinoma ? invasive ductal carcinoma (no special type). Histologic Grade (Raymon grade): Glandular/tubular differentiation - score 3 Nuclear pleomorphism - score 3 Mitotic count ? score 2 Overall grade - 3 (score of 8) Margins - Margins uninvolved by invasive carcinoma. The invasive carcinoma is 1.5 cm away from the closest posterior margin. Treatment effect: Response to presurgical (neoadjuvant) therapy - no known presurgical therapy. Lymph-Vascular invasion ? not identified Dermal lymph-vascular invasion - not identified Lymph nodes: Number of sentinel lymph nodes examined - 3 Total number of lymph nodes examined (sentinel and nonsentinel) - 3 Number of lymph nodes with macrometastases - 3 Number of lymph nodes with micrometastases and isolated tumor cells - 0 Size of largest metastatic deposit ? 3.6 cm Extranodal extension ? present, focal (0.4 cm in greatest dimension) Distance metastasis ? not applicable Additional pathologic findings ? fibrocystic changes and intraductal hyperplasia without atypia. Ancillary studies - previously performed on section of tumor ([id number] / [id number]). ER ? positive (>95%, strong) RI ? positive (variable, 0-11%, weak) Her2 bhavani ? negative (1+) Microcalcifications ? not identified Clinical history - Please make reference to previous specimen ([id number]) left breast, ultrasound-guided needle core biopsy with diagnosis of invasive ductal carcinoma. PATHOLOGIC STAGE: pT2 pN1a(sn) Mx The above summary is in compliance with [employer] [place] [employer] (CAP) Cancer Protocols Checklist and [place] Joint Committee on Cancer (AJCC), Staging Manual, 8th Ed. COMMENT A. The lymph nodes are almost completely involved by the metastatic tumor. The largest lymph node measures 3.6 cm in greatest dimension. The largest focus of metastasis measures 3.6 cm in greatest dimension. Focal extranodal distention is noted which measures 0.4 cm in greatest dimension. Current therapy: 1) Adjuvant AC followed by Taxol. Presents for ongoing oncologic management. Evaluation for cycle #2. Interim history: Since last seen, patient underwent completion axillary dissection MICROSCOPIC DIAGNOSIS A. Left axillary contents, regional lymphadenectomy: Isolated metastatic tumor cells in one of seven lymph nodes. B. ?Dog ear,? excision: Skin with attached fibrofatty tissue with reactive and reparative change and suture granulomas. No evidence of malignancy. AM:lilibeth 05/28/17 COMMENT Case has been reviewed in consultation with Dr. Skinner who concurs with the above diagnosis. IDC:SJ MICROSCOPIC DESCRIPTION Slides are reviewed. A. The largest lymph node contains benign histiocytic proliferation, fibrosis and minimal chronic inflammation consistent with previous biopsy and resection ([id number]). Immunohistochemistry ([id number]) supports the presence of isolated metastatic tumor cells in one out of seven lymph nodes. She tolerated cycle 1 very well. She had mild nausea the first few days but it was relieved with Zofran. No vomiting. She felt slightly fatigued. No significant malaise or fever. She had no side effects from Neulasta. PMH, medications and allergies personally reviewed by me today. Any changes documented in appropriate section. ROS: Constitutional: Denies episodes of fever and night sweats. Not significantly fatigued. Normal appetite. Neuro: Denies OWENS, vertigo, dizziness and imbalance. Denies symptoms of neuropathy. HEENT: No recent change in voice, vision or hearing. Resp: Denies cough, wheeze and hemoptysis. Denies shortness of breath at rest. Denies SANCHEZ. CVS: Denies exertional chest pain, PND, orthopnea and LE edema. : Denies dysuria or gross hematuria. No symptoms of bladder outlet obstruction. Endo: Denies hot flashes. Denies polyuria and polydipsia. Denies heat and cold intolerance. Musculoskeletal: OA of shoulders and knees. Psoriatic arthritis affects hands and wrists--good control with Otezla. Derm: Psoriatic plaques resolved with Otezla. Heme: Denies unusual bleeding and unexplained bruising. Psych: Normal mood. PHYSICAL EXAM: Vitals: Blood pressure 145/63, pulse 74, temperature 36.4 ?C (97.6 ?F), temperature source Temporal Artery, weight 86.2 kg (190 lb), last menstrual period 02/04/2010. Well-appearing and in no acute distress. EYES: Sclerae are anicteric bilaterally. ENT: Oral mucosa is unremarkable. NECK: Supple. LYMPHATIC: There is no palpable cervical, supraclavicular, axillary adenopathy. RESPIRATORY: Inspiratory breath sounds are of normal intensity in all peters. No rales, wheezes or rhonchi. CARDIOVASCULAR: Rhythm is regular. Normal intensity S1/S2. There is no gallop or murmur. BREAST: Bilateral mastectomy sites healing well. ABDOMEN: The abdomen is nondistended. No organomegaly. No tenderness. Extremities: No swelling or edema. SKIN: No jaundice or rash. No petechiae. NEUROLOGIC: sheeter operator II-XII are grossly intact. No focal motor weakness. MUSCULOSKELETAL: No muscle wasting. 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 -pT2 (3.5 cm; grade 3; no LVI) pN1a (3 of 3 SLNs) MX ER/RI positive, HER2 negative invasive ductal carcinoma the left breast. -Staging form in problem list previously completed. -She is tolerating adjuvant chemotherapy very well thus far. -Again addressed the role of aromatase inhibitor therapy and currently available clinical trials such as the SWOG 1207 trial as disease is high risk (+LNs and grade 3 tumor). Plan: -Continue chemotherapy. -Radiation opinion for axillary radiation following chemotherapy. Harpreet Pantoja DO PHYLLIS ABS GR + CBC Collected: 07/03/2017 Status: F Source: [place] 10:55 AM [facility] REPOSITORY TYPE CODE TESTS RESULT OUT OF REFERENCE UNITS RANGE LAB WWBC 3.70-11.00 k/uL Phyllis WBC 7.43 LAB WRBC 3.90-5.20 m/uL [place] RBC 4.03 LAB WHGB 11.5-15.5 g/dL Low [place] Hemoglobin 11.1 LAB WHCT 36.0-46.0 % Low [place] Hematocrit 34.2 LAB WMCV 80.0-100.0 fL Phyllis MCV 84.9 LAB WMCH 26.0-34.0 pg Phyllis MCH 27.5 LAB WMCHC 30.5-36.0 g/dL [place] MCHC 32.5 LAB WRDW 11.5-15.0 % Phyllis RDW 13.5 LAB WPLT 150-400 k/uL [place] Platelet Cnt 190 LAB WMPV 9.0-12.7 fL Low Phyllis MPV 8.1 Result Comment: Test performed at: [facility], [address] [place] [address] Rd[address] [place] [address]. LAB ABGRAN 1.45-7.50 k/uL Absol Gran 5.24 Count COMP METABOLIC PANEL Collected: 07/03/2017 Status: F Source: [place] 10:55 AM [facility] REPOSITORY TYPE CODE TESTS RESULT OUT OF REFERENCE UNITS RANGE LAB TP 6.3-8.0 g/dL Protein, Total 6.3 LAB ALB 3.9-4.9 g/dL Albumin 3.9 LAB CA 8.5-10.2 mg/dL Calcium, Total 8.7 LAB TBIL 0.2-1.3 mg/dL Low Bilirubin, Total <0.2 LAB ALKP 32-117 U/L Alkaline Phosphatase 70 LAB AST 13-35 U/L AST 18 LAB GLU 74-99 mg/dL Glucose High 180 Result Comment: The [place] [employer] (ADA) provides guidance for cutoff values for fasting glucose and random glucose. The ADA defines fasting as no caloric intake for at least 8 hours. Fas ting plasma glucose results between 100 to 125 mg/dL indicate increased risk for diabetes (prediabetes). Fasting plasma glucose results greater than or equal to 126 mg/dL meet the criteria for diagnosis of diabetes. In the absence of unequivocal hyperglycemia, results should be confirmed by repeat testing. In a patient with classic symptoms of hyperglycemia or hyperglycemic crisis, random plasma glucose results greater than or equal to 200 mg/dL meet the criteria for diagnosis of diabetes. Reference: Standards of Medical Care in Diabetes 2016, [place] [employer]. Diabetes Care. 2016.39(Suppl 1). LAB BUN 7-21 mg/dL BUN 7 LAB CRET 0.58-0.96 mg/dL Creatinine 0.65 LAB NA 136-144 mmol/L Sodium 139 LAB K 3.7-5.1 mmol/L Potassium 4.3 LAB CL 97-105 mmol/L Chloride 99 LAB CO2 22-30 mmol/L CO2 25 LAB AGAP 9-18 mmol/L Anion Gap 15 LAB ALT 7-38 U/L ALT 17 LAB GFRAA eGFR- Amer. >60 LAB GFRNAA . eGFR-All Other Races >60 Result Comment: eGFR (Estimated GFR) Units of measure: mL/min/1.73 meters squared eGFR is derived from the reexpressed MDRD Study equation using the following parameters: serum creatinine, age, gender and race. The creatinine assay has been calibrated to be traceable to IDMS. An eGFR <60 mL/min/1.73m2 for >3 months is consistent with chronic kidney disease. Refer to KDOQI guidelines for clinical interpretation. In patients with unstable renal function, e.g. those with acute kidney injury, the eGFR may not accurately reflect actual GFR. Performed By: #### CMP #### [facility] [place] [facility] [address] [place], [place] [address] CNOVSP Observed: 07/03/2017 Status: COMPLETED Source: [place] 10:50 AM [facility] REPOSITORY Visit (SP) Office ([place]) MICHAELJESSICA ([id number]) 1955 F Date Time Provider Department 07/03/17 10:50 AM HARPREET PANTOJA During your visit today, we recorded the following information about you: Temperature Pulse Blood pressure Weight 97.6 degrees 74/minute 145/63 86.2 kg Harpreet Pantoja DO 07/03/2017 11:48 AM Signed Diagnosis: 1) HPI: The patient is a 62-year-old female was a past medical history significant for diabetes and psoriatic arthritis. Patient had a screening mammogram performed on 03/22/2017 (only 3 months past annual date of previous study). There was a new mass identified in the left breast as being indeterminate. Further studies were recommended. Diagnostic imaging done on 03/28/2017 demonstrated a 3 cm irregular mass in left breast consistent with carcinoma and was highly suggestive of malignancy. Underwent core needle biopsy on 2017. Pathology: Left breast, ultrasound-guided needle core biopsy: Invasive ductal carcinoma, nuclear grade 3 (1 cm in greatest length). See comment. ER (clone [id number]) >95%, strong RI (clone 16/1E2) variable, 0-11%, weak Her-2Neu (clone CB11) 1+ Underwent left-sided mastectomy with left sentinel axillary lymph node biopsy along with prophylactic right-sided mastectomy on 04/20/2017. Pathology: FROZEN SECTION DIAGNOSIS A. Left axillary sentinel lymph nodes, biopsy: Three out of three lymph nodes positive for macrometastatic carcinoma. MICROSCOPIC DIAGNOSIS A. Left axillary sentinel lymph nodes, biopsy: Three out of three lymph nodes positive for macrometastatic carcinoma. See comment. B. Left breast, mastectomy: Invasive ductal carcinoma. C. Right breast: Focal intraductal hyperplasia without atypia. Negative for carcinoma in the sections examined. D. Extra skin and tissue left breast: Negative for carcinoma. INVASIVE BREAST CANCER SUMMARY: (Including specimen A AND B) Specimen ? total breast (including nipple and skin). Procedure ? total mastectomy (including nipple and skin). Lymph node sampling ? sentinel lymph nodes Specimen integrity ? single intact specimen. Specimen laterality - left Tumor size ? 3.5 x 3.3 x 3 cm Tumor focality ? single focus of invasive carcinoma Macroscopic and Microscopic extent of tumor: Skin ? invasive carcinoma does not invade into the dermis or epidermis. Nipple ? ductal carcinoma in situ does not nipple epidermis. Skeletal muscle ? no skeletal muscle present. Ductal carcinoma in situ (DCIS) ? no ductal carcinoma in situ is present. Lobular carcinoma in situ (LCIS) ? not identified Histologic type of invasive carcinoma ? invasive ductal carcinoma (no special type). Histologic Grade ([place] grade): Glandular/tubular differentiation - score 3 Nuclear pleomorphism - score 3 Mitotic count ? score 2 Overall grade - 3 (score of 8) Margins - Margins uninvolved by invasive carcinoma. The invasive carcinoma is 1.5 cm away from the closest posterior margin. Treatment effect: Response to presurgical (neoadjuvant) therapy - no known presurgical therapy. Lymph-Vascular invasion ? not identified Dermal lymph-vascular invasion - not identified Lymph nodes: Number of sentinel lymph nodes examined - 3 Total number of lymph nodes examined (sentinel and nonsentinel) - 3 Number of lymph nodes with macrometastases - 3 Number of lymph nodes with micrometastases and isolated tumor cells - 0 Size of largest metastatic deposit ? 3.6 cm Extranodal extension ? present, focal (0.4 cm in greatest dimension) Distance metastasis ? not applicable Additional pathologic findings ? fibrocystic changes and intraductal hyperplasia without atypia. Ancillary studies - previously performed on section of tumor ([id number] / [id number]). ER ? positive (>95%, strong) RI ? positive (variable, 0-11%, weak) Her2 bhavani ? negative (1+) Microcalcifications ? not identified Clinical history - Please make reference to previous specimen ([id number]) left breast, ultrasound-guided needle core biopsy with diagnosis of invasive ductal carcinoma. PATHOLOGIC STAGE: pT2 pN1a(sn) Mx The above summary is in compliance with College of [place] [employer] (CAP) Cancer Protocols Checklist and [place] Joint Committee on Cancer (AJCC), Staging Manual, 8th Ed. COMMENT A. The lymph nodes are almost completely involved by the metastatic tumor. The largest lymph node measures 3.6 cm in greatest dimension. The largest focus of metastasis measures 3.6 cm in greatest dimension. Focal extranodal distention is noted which measures 0.4 cm in greatest dimension. Current therapy: 1) Adjuvant AC followed by Taxol. Presents for ongoing oncologic management. Evaluation for cycle #2. Interim history: Since last seen, patient underwent completion axillary dissection MICROSCOPIC DIAGNOSIS A. Left axillary contents, regional lymphadenectomy: Isolated metastatic tumor cells in one of seven lymph nodes. B. ?Dog ear,? excision: Skin with attached fibrofatty tissue with reactive and reparative change and suture granulomas. No evidence of malignancy. AM:lilibeth 05/28/17 COMMENT Case has been reviewed in consultation with Dr. Skinner who concurs with the above diagnosis. IDC:SJ MICROSCOPIC DESCRIPTION Slides are reviewed. A. The largest lymph node contains benign histiocytic proliferation, fibrosis and minimal chronic inflammation consistent with previous biopsy and resection ([id number]). Immunohistochemistry ([id number]) supports the presence of isolated metastatic tumor cells in one out of seven lymph nodes. She tolerated cycle 1 very well. She had mild nausea the first few days but it was relieved with Zofran. No vomiting. She felt slightly fatigued. No significant malaise or fever. She had no side effects from Neulasta. PMH, medications and allergies personally reviewed by me today. Any changes documented in appropriate section. ROS: Constitutional: Denies episodes of fever and night sweats. Not significantly fatigued. Normal appetite. Neuro: Denies OWENS, vertigo, dizziness and imbalance. Denies symptoms of neuropathy. HEENT: No recent change in voice, vision or hearing. Resp: Denies cough, wheeze and hemoptysis. Denies shortness of breath at rest. Denies SANCHEZ. CVS: Denies exertional chest pain, PND, orthopnea and LE edema. : Denies dysuria or gross hematuria. No symptoms of bladder outlet obstruction. Endo: Denies hot flashes. Denies polyuria and polydipsia. Denies heat and cold intolerance. Musculoskeletal: OA of shoulders and knees. Psoriatic arthritis affects hands and wrists--good control with Otezla. Derm: Psoriatic plaques resolved with Otezla. Heme: Denies unusual bleeding and unexplained bruising. Psych: Normal mood. PHYSICAL EXAM: Vitals: Blood pressure 145/63, pulse 74, temperature 36.4 ?C (97.6 ?F), temperature source Temporal Artery, weight 86.2 kg (190 lb), last menstrual period 02/04/2010. Well-appearing and in no acute distress. EYES: Sclerae are anicteric bilaterally. ENT: Oral mucosa is unremarkable. NECK: Supple. LYMPHATIC: There is no palpable cervical, supraclavicular, axillary adenopathy. RESPIRATORY: Inspiratory breath sounds are of normal intensity in all peters. No rales, wheezes or rhonchi. CARDIOVASCULAR: Rhythm is regular. Normal intensity S1/S2. There is no gallop or murmur. BREAST: Bilateral mastectomy sites healing well. ABDOMEN: The abdomen is nondistended. No organomegaly. No tenderness. Extremities: No swelling or edema. SKIN: No jaundice or rash. No petechiae. NEUROLOGIC: sheeter operator II-XII are grossly intact. No focal motor weakness. MUSCULOSKELETAL: No muscle wasting. 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 -pT2 (3.5 cm; grade 3; no LVI) pN1a (3 of 3 SLNs) MX ER/RI positive, HER2 negative invasive ductal carcinoma the left breast. -Staging form in problem list previously completed. -She is tolerating adjuvant chemotherapy very well thus far. -Again addressed the role of aromatase inhibitor therapy and currently available clinical trials such as the SWOG 1207 trial as disease is high risk (+LNs and grade 3 tumor). Plan: -Continue chemotherapy. -Radiation opinion for axillary radiation following chemotherapy. 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) [C77.3] Follow-up and Disposition History Recorded Prescriptions as of 07/03/2017 Sig: ASCORBIC ACID (VITAMIN C) 500* Take 500 mg by mouth as neede* LORAZEPAM 1 MG TABLET Take 1 tablet by mouth every * LIDOCAINE-PRILOCAINE 2.5 %-2.* Apply 1 application to affect* MELATONIN 3 MG TABLET Take 6 mg by mouth daily at b* OTC NUTRITIONAL SUPPLEMENT day IBUPROFEN 200 MG TABLET Take 600 mg by mouth twice da* ONDANSETRON HCL 8 MG TABLET Take 1 tablet by mouth every * METFORMIN ER 500 MG TABLET,EX* Take 1,000 mg by mouth once d* SUMATRIPTAN 100 MG TABLET Take 100 mg by mouth as neede* OMEPRAZOLE 40 MG CAPSULE,CARLYN* Take 40 mg by mouth once adia* GTIOCANUEV-[id number]-[id number] 5* Take 1 capsule by mouth once * TRAMADOL 50 MG TABLET Take 50 mg by mouth three lizeth* * FLUOXETINE 20 MG CAPSULE Take 20 mg by mouth once adia* * MULTIVITAMIN TABLET Take one(1) tablet daily. * CALCIUM + D 600 MG (1,500 MG)* Take one(1) tablet twice adia* * TYLENOL EXTRA STRENGTH 500 MG* Take two(2) tablets every six* Medication notes this encounter IBUPROFEN 200 MG TABLET >> Loli Addison MA 07/03/2017 10:53 AM >> LOLI ADDISON MA July 03, 2017 10:53 AM as necessary EMOPYDXAPF-KVBPCFP-[id number] 50 MG-325 MG-40 MG CAPSULE >> Loli Addison MA 07/03/2017 10:54 AM >> LOLI ADDISON MA July 03, 2017 10:54 AM as necessary Problem List As Of Date 07/03/2017 Noted Resolved Postmenopausal bleeding [N95.0] INVALID FOR* Ovarian cyst [N83.209] INVALID FOR* Malignant neoplasm of upper-outer quadrant of l*INVALID FOR* 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 Encounter Status:Closed by HARPREET PANTOJA DO on 07/03/17 PROGRESS Observed: 06/20/2017 Status: COMPLETED Source: [place] 9:43 AM [facility] [place] REPOSITORY HNO ID: [id number] Author: Fauzia Lucio (Niranjan) Service: (none) Author Type: Architectural Intern Type: Progress Notes Filed: 06/20/2017 9:45 AM Note Text: Social Work Problem Referral Note INFORMATION/REFERRAL : Jessica Rodriguez 62 year old female was referred by [facility] Work for the following reason(s): Knitted Knockers PERSONS INTERVIEWED: patient and family - spouse INTERVENTION: Information AND Referral Service Co-ordination Affect/Mood: The patient is noted as appropriate IDENTIFIED PROBLEMS/NEEDS: Knitted Knockers and Advance Directives Intervention/Referral to be provided:Arrangements made for continuity of care IMPRESSION/PLAN: SW met with patient on this day to discuss and show her Knitted Knockers. Patient decided to try them and took a pair home. Patient reports she still has not completed her Advance Directives, but she is going to and will bring this back to SW. SW encouraged patient to fill them out here if she would like. Patient states she will bring them in. F/U APPOINTMENT: MONA Huston Collected: 06/20/2017 Status: F Source: [place] 8:35 AM [facility] [place] REPOSITORY TYPE CODE TESTS RESULT OUT OF REFERENCE UNITS RANGE LAB NAWB 132-148 mmol/L Sodium, Whole 139 Bld LAB K1WB 3.5-5.0 mmol/L Potassium,Who 4.0 le Bld LAB CLWB 98-110 mmol/L Chloride, 102 Whole Bld LAB ICAWB 1.08-1.30 mmol/L Ionized 1.20 Calcium, WB Result Comment: Please note: This value represents ionized calcium not total calcium. LAB CO2WB 23-32 mmol/L TCO2, Whole 26 Blood LAB GLUWB 65-100 mg/dL High Glucose, 165 Whole Bld LAB BUNWB 8-25 mg/dL BUN, Whole 10 Blood LAB BCRET 0.70-1.40 mg/dL Low Creatinine,Wh 0.60 ole Bld LAB AGAPWB 0-15 mmol/L Anion Gap, 11 Whole Bld LAB GFRAA eGFR- >60 Amer. LAB GFRNAA . eGFR-All >60 Other Races Result Comment: eGFR (Estimated GFR) Units of measure: mL/min/1.73 meters squared eGFR is derived from the reexpressed MDRD Study equation using the following parameters: serum creatinine, age, gender and race. The creatinine assay has been calibrated to be traceable to IDMS. An eGFR <60 mL/min/1.73m2 for >3 months is consistent with chronic kidney disease. Refer to KDOQI guidelines for clinical interpretation. In patients with unstable renal function, e.g. those with acute kidney injury, the eGFR may not accurately reflect actual GFR. PHYLLIS ABS GR + CBC Collected: 06/20/2017 Status: F Source: [place] 8:35 AM [facility] REPOSITORY TYPE CODE TESTS RESULT OUT OF REFERENCE UNITS RANGE LAB WWBC 3.70-11.00 k/uL Phyllis WBC 8.08 LAB WRBC 3.90-5.20 m/uL Preston RBC 4.31 LAB WHGB 11.5-15.5 g/dL [place] Hemoglobin 12.0 LAB WHCT 36.0-46.0 % Phyllis Hematocrit 36.5 LAB WMCV 80.0-100.0 fL Phyllis MCV 84.7 LAB WMCH 26.0-34.0 pg Phyllis MCH 27.8 LAB WMCHC 30.5-36.0 g/dL [place] MCHC 32.9 LAB WRDW 11.5-15.0 % Preston RDW 13.3 LAB WPLT 150-400 k/uL Phyllis Platelet Cnt 213 LAB WMPV 9.0-12.7 fL [place] MPV 9.2 LAB ABGRAN 1.45-7.50 k/uL Absol Gran Count 5.14 HEPATIC FUNCTN PANEL Collected: 06/20/2017 Status: F Source: [place] 8:35 AM [facility] REPOSITORY TYPE CODE TESTS RESULT OUT OF REFERENCE UNITS RANGE LAB ALB 3.9-4.9 g/dL Albumin 4.1 LAB TBIL 0.2-1.3 mg/dL Low Bilirubin, Total <0.2 LAB CBIL <0.2 mg/dL Bilirubin,Conjuga <0.2 murali LAB ALKP 32-117 U/L Alkaline Phosphatase 64 LAB AST 13-35 U/L AST 23 LAB ALT 7-38 U/L ALT 14 LAB TP 6.3-8.0 g/dL Protein, Total 6.8 Performed By: #### HFP, TSH, FT4 #### [facility] [place] [facility] [address] [place], [place] [address] TSH Collected: 06/20/2017 Status: F Source: [place] 8:35 AM [facility] REPOSITORY TYPE CODE TESTS RESULT OUT OF RANGE REFERENCE UNITS LAB TSH 0.400-5.500 uU/mL TSH 0.615 Performed By: #### HFP, TSH, FT4 #### [facility] [place] [facility] [address] [place], [place] [address] FREE T4 Collected: 06/20/2017 Status: F Source: [place] 8:35 AM [facility] REPOSITORY TYPE CODE TESTS RESULT OUT OF RANGE REFERENCE UNITS LAB FT4 0.9-1.7 ng/dL Free T4 1.3 Performed By: #### HFP, TSH, FT4 #### [facility] [place] [facility] [address] [place], [place] [address] CNSW Observed: 06/20/2017 Status: COMPLETED Source: [place] 12:00 AM [facility] REPOSITORY Social Work ([place]) JESSICA RODRIGUEZ ([id number]) 1955 F Date Time Provider Department 06/20/17 FAUZIA LUCIO (SW) During your visit today, we recorded the following information about you: Fauzia Lucio) 06/20/2017 9:45 AM Signed Social Work Problem Referral Note INFORMATION/REFERRAL : Jessica Rodriguez 62 year old female was referred by [facility] for the following reason(s): Knitted Knockers PERSONS INTERVIEWED: patient and family - spouse INTERVENTION: Information AND Referral Service Co-ordination Affect/Mood: The patient is noted as appropriate IDENTIFIED PROBLEMS/NEEDS: Knitted Knockers and Advance Directives Intervention/Referral to be provided:Arrangements made for continuity of care IMPRESSION/PLAN: NIRANJAN met with patient on this day to discuss and show her Knitted Knockers. Patient decided to try them and took a pair home. Patient reports she still has not completed her Advance Directives, but she is going to and will bring this back to NIRANJAN. NIRANJAN encouraged patient to fill them out here if she would like. Patient states she will bring them in. F/U APPOINTMENT: MONA Huston Allergies As of Date: 06/20/2017 Noted Allergy Reaction IV DYE (IODINATED CONTRAST- ORAL *05/21/2006 4 - Hives SHELLFISH 05/21/2006 4 - Hives VICTOZA (LIRAGLUTIDE) 03/30/2017 5 - Intolerance Date Reviewed: 06/20/2017 Reviewed by: Jennifer Cerrato (Rn), RN - Fully Assessed Reason for Visit: Social Work Services [507] Cmt: Knitted Knockers Prescriptions as of 06/20/2017 Sig: LIDOCAINE-PRILOCAINE 2.5 %-2.* Apply 1 application to affect* MELATONIN 3 MG TABLET Take 6 mg by mouth daily at b* OTC NUTRITIONAL SUPPLEMENT day IBUPROFEN 200 MG TABLET Take 600 mg by mouth twice da* ONDANSETRON HCL 8 MG TABLET Take 1 tablet by mouth every * OTEZLA 30 MG TABLET 30 mg twice daily. METFORMIN ER 500 MG TABLET,EX* Take 1,000 mg by mouth once d* SUMATRIPTAN 100 MG TABLET Take 100 mg by mouth as neede* OMEPRAZOLE 40 MG CAPSULE,CARLYN* Take 40 mg by mouth once adia* VOKZWDMDXT-HXOZZQS-SDAVAITB 5* Take 1 capsule by mouth once * TRAMADOL 50 MG TABLET Take 50 mg by mouth three lizeth* * FLUOXETINE 20 MG CAPSULE Take 20 mg by mouth once adia* * MULTIVITAMIN TABLET Take one(1) tablet daily. 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 Encounter Status:Closed by FAUZIA LUCIO on 06/20/17 PROGRESS Observed: 06/11/2017 Status: COMPLETED Source: [place] 11:40 AM [facility] [place] REPOSITORY HNO ID: [id number] Author: Fauzia Lucio (Sw) Service: (none) Author Type: Architectural Intern Type: Progress Notes Filed: 06/11/2017 11:43 AM Note Text: SOCIAL WORK FOLLOW UP NOTE: [facility] Date of service: June 11, 2017 Jessica A Ermajaz is being seen for a follow up social work visit. Today's visit includes: patient not present TOPICS ADDRESSED: coping/support, STD needs, Advance Directives; NIRANJAN called patient and left her a message to follow-up regarding STD paperwork that was sent per patient's request earlier this month to see if anything further was needed for this. NIRANJAN also asked patient if she needed any assistance with completing Advance Directives. PLAN: Continue follow up as needed F/U APPOINTMENT: MONA Huston CNSNayely Observed: 06/11/2017 Status: COMPLETED Source: [place] 12:00 AM [facility] REPOSITORY Social Work (BRETT) MICHAELJESSICA Castillo ([id number]) 1955 F Date Time Provider Department 06/11/17 FAUZIA LUCIO (NIRANJAN) BRETT During your visit today, we recorded the following information about you: MONA Mclean 06/11/2017 11:43 AM Signed SOCIAL WORK FOLLOW UP NOTE: [facility] Date of service: June 11, 2017 Jessica Castillo Ermajaz is being seen for a follow up social work visit. Today's visit includes: patient not present TOPICS ADDRESSED: coping/support, STD needs, Advance Directives; NIRANJAN called patient and left her a message to follow-up regarding STD paperwork that was sent per patient's request earlier this month to see if anything further was needed for this. NIRANJAN also asked patient if she needed any assistance with completing Advance Directives. PLAN: Continue follow up as needed F/U APPOINTMENT: MONA Huston Allergies As of Date: 06/11/2017 Noted Allergy Reaction IV DYE (IODINATED CONTRAST- ORAL *05/21/2006 4 - Hives SHELLFISH 05/21/2006 4 - Hives VICTOZA (LIRAGLUTIDE) 03/30/2017 5 - Intolerance Date Reviewed: 06/09/2017 Reviewed by: Hodan Chong - Fully Assessed Reason for Visit: Social Work Services [507] Cmt: followup Prescriptions as of 06/11/2017 Sig: MELATONIN 3 MG TABLET Take 6 mg by mouth daily at b* OTC NUTRITIONAL SUPPLEMENT calm day IBUPROFEN 200 MG TABLET Take 600 mg by mouth twice da* ONDANSETRON HCL 8 MG TABLET Take 1 tablet by mouth every * OTEZLA 30 MG TABLET 30 mg twice daily. METFORMIN ER 500 MG TABLET,EX* Take 1,000 mg by mouth once d* SUMATRIPTAN 100 MG TABLET Take 100 mg by mouth as neede* OMEPRAZOLE 40 MG CAPSULE,CARLYN* Take 40 mg by mouth once adia* [id number] 5* Take 1 capsule by mouth once * TRAMADOL 50 MG TABLET Take 50 mg by mouth three lizeth* * FLUOXETINE 20 MG CAPSULE Take 20 mg by mouth once adia* * MULTIVITAMIN TABLET Take one(1) tablet daily. 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 Encounter Status:Closed by FAUZIA LUCIO on 06/11/17 PROGRESS Observed: 06/09/2017 Status: COMPLETED Source: [place] 7:41 PM [facility] RE[facility]IT[facility] O ID: [id number] Author: Hodan Chong Service: (none) Author Type: Physician Type: Progress Notes Filed: 03/01/2018 12:17 PM Note Text: Jessica is s/p completion left axillary lymphadenectomy done on 05/24/17. (also revision of mastectomy dog ear) She denies any problems. ?Feeling overall well. Pathology: ?Isolated metastatic tumor cells in one of seven lymph nodes ? Examination: wounds are healing well, no evidence of infection, MAC drain removed without difficulty. ? Impression: s/p completion left axillary lymphadenectomy ? Plan: Patient is doing well. Follow up in 3 months Patient will follow up with Dr. Pantoja for chemotherapy CNOV Observed: 06/08/2017 Status: COMPLETED Source: [place] 10:00 AM [facility] REPOSITORY Office Visit (SWS) MICHAELJESSICA Jonathan ([id number]) 1955 F Date Time Provider Department 06/08/17 10:00 AM HODAN CHONG During your visit today, we recorded the following information about you: Temperature Pulse Blood pressure Weight 98.6 degrees 68/minute 153/72 88.9 kg Hodan Chong MD 03/01/2018 12:17 PM Addendum Jessica is s/p completion left axillary lymphadenectomy done on 05/24/17. (also revision of mastectomy dog ear) She denies any problems. ?Feeling overall well. Pathology: ?Isolated metastatic tumor cells in one of seven lymph nodes ? Examination: wounds are healing well, no evidence of infection, MAC drain removed without difficulty. ? Impression: s/p completion left axillary lymphadenectomy ? Plan: Patient is doing well. Follow up in 3 months Patient will follow up with Dr. Pantoja for chemotherapy Referring Provider: RUTH CLARK [[id number]] Allergies As of Date: 06/08/2017 Noted Allergy Reaction IV DYE (IODINATED CONTRAST- ORAL *05/21/2006 4 - Hives SHELLFISH 05/21/2006 4 - Hives VICTOZA (LIRAGLUTIDE) 03/30/2017 5 - Intolerance Date Reviewed: 06/08/2017 Reviewed by: Drae Mccauley RN - Fully Assessed Reason for Visit: Post Op [174] Cmt: breast cancer Primary Visit Diagnosis:Surgery follow-up examination [Z09] Prescriptions as of 06/08/2017 Sig: OTC NUTRITIONAL SUPPLEMENT calm day X MELATONIN 3 MG TABLET Take 6 mg by mouth daily at b* IBUPROFEN 200 MG TABLET Take 600 mg by mouth twice da* X ONDANSETRON HCL 8 MG TABLET Take 1 tablet by mouth every * METFORMIN ER 500 MG TABLET,EX* Take 500 mg by mouth twice da* X OTEZLA 30 MG TABLET 30 mg twice daily. SUMATRIPTAN 100 MG TABLET Take 100 mg by mouth as neede* OMEPRAZOLE 40 MG CAPSULE,CARLYN* Take 40 mg by mouth once adia* [id number] 5* Take 1 capsule by mouth once * TRAMADOL 50 MG TABLET Take 50 mg by mouth three lizeth* * FLUOXETINE 20 MG CAPSULE Take 20 mg by mouth once adia* * MULTIVITAMIN TABLET Take one(1) tablet daily. * CALCIUM + D 600 MG (1,500 MG)* Take one(1) tablet twice adia* * TYLENOL EXTRA STRENGTH 500 MG* Take two(2) tablets every six* Problem List As Of Date 06/08/2017 Noted Resolved Postmenopausal bleeding [N95.0] INVALID FOR* Ovarian cyst [N83.209] INVALID FOR* Malignant neoplasm of upper-outer quadrant of l*INVALID FOR* 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 Follow-up and Disposition History Recorded Letter Text Encounter Status:Closed by MD HODAN CHONG on 06/09/17 PROGRESS Observed: 06/08/2017 Status: COMPLETED Source: [place] 9:04 AM [facility] REPOSITORY [facility] ID: [id number] Author: Ria Dee Service: (none) Author Type: Nurse Practitioner Type: Progress Notes Filed: 06/08/2017 9:30 AM Note Text: Chief Complaint Patient presents with: Established Patient HPI: Jessica Rodriguez is a 62 year old female who presents here today for evaluation to begin chemo. Per Dr. Pantoja's previous note: H/o diabetes and psoriatic arthritis. ? Patient had a screening mammogram performed on 03/22/2017 (only 3 months past annual date of previous study). There was a new mass identified in the left breast as being indeterminate. Further studies were recommended. ? Diagnostic imaging done on 03/28/2017 demonstrated a 3 cm irregular mass in left breast consistent with carcinoma and was highly suggestive of malignancy. ? Underwent core needle biopsy on 2017. ? Pathology: Left breast, ultrasound-guided needle core biopsy: Invasive ductal carcinoma, nuclear grade 3 (1 cm in greatest length). See comment. ? ER (clone 6F11) >95%, strong RI (clone 16/1E2) variable, 0-11%, weak Her-2Neu (clone CB11) 1+ ? Underwent left-sided mastectomy with left sentinel axillary lymph node biopsy along with prophylactic right-sided mastectomy on 04/20/2017. ? Pathology: FROZEN SECTION DIAGNOSIS A. Left axillary sentinel lymph nodes, biopsy: Three out of three lymph nodes positive for macrometastatic carcinoma. ? MICROSCOPIC DIAGNOSIS A. Left axillary sentinel lymph nodes, biopsy: Three out of three lymph nodes positive for macrometastatic carcinoma. See comment. B. Left breast, mastectomy: Invasive ductal carcinoma. C. Right breast: Focal intraductal hyperplasia without atypia. Negative for carcinoma in the sections examined. D. Extra skin and tissue left breast: Negative for carcinoma. ? INVASIVE BREAST CANCER SUMMARY: (Including specimen A AND B) Specimen ? total breast (including nipple and skin). Procedure ? total mastectomy (including nipple and skin). Lymph node sampling ? sentinel lymph nodes Specimen integrity ? single intact specimen. Specimen laterality - left Tumor size ? 3.5 x 3.3 x 3 cm Tumor focality ? single focus of invasive carcinoma Macroscopic and Microscopic extent of tumor: Skin ? invasive carcinoma does not invade into the dermis or epidermis. Nipple ? ductal carcinoma in situ does not nipple epidermis. Skeletal muscle ? no skeletal muscle present. Ductal carcinoma in situ (DCIS) ? no ductal carcinoma in situ is present. Lobular carcinoma in situ (LCIS) ? not identified Histologic type of invasive carcinoma ? invasive ductal carcinoma (no special type). Histologic Grade ([place] grade): Glandular/tubular differentiation - score 3 Nuclear pleomorphism - score 3 Mitotic count ? score 2 Overall grade - 3 (score of 8) Margins - Margins uninvolved by invasive carcinoma. The invasive carcinoma is 1.5 cm away from the closest posterior margin. Treatment effect: Response to presurgical (neoadjuvant) therapy - no known presurgical therapy. Lymph-Vascular invasion ? not identified Dermal lymph-vascular invasion - not identified Lymph nodes: Number of sentinel lymph nodes examined - 3 Total number of lymph nodes examined (sentinel and nonsentinel) - 3 Number of lymph nodes with macrometastases - 3 Number of lymph nodes with micrometastases and isolated tumor cells - 0 Size of largest metastatic deposit ? 3.6 cm Extranodal extension ? present, focal (0.4 cm in greatest dimension) Distance metastasis ? not applicable Additional pathologic findings ? fibrocystic changes and intraductal hyperplasia without atypia. Ancillary studies - previously performed on section of tumor ([id number] / [id number]). ER ? positive (>95%, strong) RI ? positive (variable, 0-11%, weak) Her2 bhavani ? negative (1+) Microcalcifications ? not identified Clinical history - Please make reference to previous specimen ([id number]) left breast, ultrasound-guided needle core biopsy with diagnosis of invasive ductal carcinoma. ? PATHOLOGIC STAGE: pT2 pN1a(sn) Mx ?? The above summary is in compliance with [employer] [place] [employer] (CAP) Cancer Protocols Checklist and [place] Joint Committee on Cancer (AJCC), Staging Manual, 8th Ed. ? COMMENT A. The lymph nodes are almost completely involved by the metastatic tumor. The largest lymph node measures 3.6 cm in greatest dimension. The largest focus of metastasis measures 3.6 cm in greatest dimension. Focal extranodal distention is noted which measures 0.4 cm in greatest dimension. I think everything looks good. Appetite:good Energy level:fair I've had 3 surgeries close together. Denies fevers. Resp:denies cough or sob Cardiac:denies chest pain/palpitations GI:denies abd pain, n/v, moving bowels regularly :denies dysuria/hematuria Extrem:h/o psoriatic arthritis-R shoulder and L lateral chest surgical pain Neuro:denies symptoms of neuropathy Skin:denies rashes/lesions Heme:denies bleeding The ROS is otherwise negative. Past medical history, appointments, medications, allergies reviewed. No changes. EXAM: BP 153/72 Pulse 68 Temp 37 ?C (98.6 ?F) Wt 88.9 kg (196 lb) LMP 02/04/2010 BMI 37 kg/m2 APPEARANCE Well appearing, alert, in no acute distress, well-hydrated, well nourished. HEART RRR with normal S1 and S2, no murmurs LUNG clear to auscultation BREAST FEMALE b/l mastectomy scars, L axillary scar well healed without erythema/drainage, drain site covered with [id number] drainage LYMPH NODES No cervical lymphadenopathy, No supraclavicular lymphadenopathy and No axillary lymphadenopathy. ABDOMEN bowel sounds normoactive, no bruits, soft, non-tender, non-distended, without organomegaly or palpable masses EXTREMITIES No edema NEURO Awake, alert and oriented x 3, Normal gait and No involuntary motions. SKIN Skin color, texture, turgor normal, no suspicious rashes or lesions ASSESSMENT/PLAN: 1. Malignant neoplasm of upper-outer quadrant of left breast in female, estrogen receptor positive (HCC) - ICD9: 174.4, V86.0, ICD10: C50.412, Z17.0 pT2 (3.5 cm; grade 3; no LVI) pN1a (3 of 3 SLNs) MX ER/RI positive, HER2 negative invasive ductal carcinoma the left breast. - Surgical sites well healed. - Start chemo pending Dr. Chong appt. today. - Pt. instructed to come back to scheduling desk after Dr. Chong's appt. to get her start date. - Pt. aware to call office with any questions/concerns. The patient indicates understanding of these issues and agrees with the plan. Ria Dee APRN.CNP CNOVSP Observed: 06/08/2017 Status: COMPLETED Source: [place] 9:00 AM [facility] REPOSITORY Visit (SP) Office (BRETT) MICHAELJESSICA ([id number]) 1955 F Date Time Provider Department 06/08/17 9:00 AM RIA DEE (MANI) BRETT During your visit today, we recorded the following information about you: Temperature Pulse Blood pressure Weight 98.6 degrees 68/minute 153/72 88.9 kg Francy Hill LPN 06/08/2017 9:11 AM Signed Est patient. Discuss plan for chemo. Francy Dee APRN.CNP 06/08/2017 9:30 AM Signed Chief Complaint Patient presents with: Established Patient HPI: Jessica Rodriguez is a 62 year old female who presents here today for evaluation to begin chemo. Per Dr. Pantoja's previous note: H/o diabetes and psoriatic arthritis. ? Patient had a screening mammogram performed on 03/22/2017 (only 3 months past annual date of previous study). There was a new mass identified in the left breast as being indeterminate. Further studies were recommended. ? Diagnostic imaging done on 03/28/2017 demonstrated a 3 cm irregular mass in left breast consistent with carcinoma and was highly suggestive of malignancy. ? Underwent core needle biopsy on 2017. ? Pathology: Left breast, ultrasound-guided needle core biopsy: Invasive ductal carcinoma, nuclear grade 3 (1 cm in greatest length). See comment. ? ER (clone 6F11) ANDgt;95%, strong RI (clone 16/1E2) variable, 0-11%, weak Her-2Neu (clone CB11) 1+ ? Underwent left-sided mastectomy with left sentinel axillary lymph node biopsy along with prophylactic right-sided mastectomy on 04/20/2017. ? Pathology: FROZEN SECTION DIAGNOSIS A. Left axillary sentinel lymph nodes, biopsy: Three out of three lymph nodes positive for macrometastatic carcinoma. ? MICROSCOPIC DIAGNOSIS A. Left axillary sentinel lymph nodes, biopsy: Three out of three lymph nodes positive for macrometastatic carcinoma. See comment. B. Left breast, mastectomy: Invasive ductal carcinoma. C. Right breast: Focal intraductal hyperplasia without atypia. Negative for carcinoma in the sections examined. D. Extra skin and tissue left breast: Negative for carcinoma. ? INVASIVE BREAST CANCER SUMMARY: (Including specimen A ANDamp; B) Specimen ? total breast (including nipple and skin). Procedure ? total mastectomy (including nipple and skin). Lymph node sampling ? sentinel lymph nodes Specimen integrity ? single intact specimen. Specimen laterality - left Tumor size ? 3.5 x 3.3 x 3 cm Tumor focality ? single focus of invasive carcinoma Macroscopic and Microscopic extent of tumor: Skin ? invasive carcinoma does not invade into the dermis or epidermis. Nipple ? ductal carcinoma in situ does not nipple epidermis. Skeletal muscle ? no skeletal muscle present. Ductal carcinoma in situ (DCIS) ? no ductal carcinoma in situ is present. Lobular carcinoma in situ (LCIS) ? not identified Histologic type of invasive carcinoma ? invasive ductal carcinoma (no special type). Histologic Grade ([place] grade): Glandular/tubular differentiation - score 3 Nuclear pleomorphism - score 3 Mitotic count ? score 2 Overall grade - 3 (score of 8) Margins - Margins uninvolved by invasive carcinoma. The invasive carcinoma is 1.5 cm away from the closest posterior margin. Treatment effect: Response to presurgical (neoadjuvant) therapy - no known presurgical therapy. Lymph-Vascular invasion ? not identified Dermal lymph-vascular invasion - not identified Lymph nodes: Number of sentinel lymph nodes examined - 3 Total number of lymph nodes examined (sentinel and nonsentinel) - 3 Number of lymph nodes with macrometastases - 3 Number of lymph nodes with micrometastases and isolated tumor cells - 0 Size of largest metastatic deposit ? 3.6 cm Extranodal extension ? present, focal (0.4 cm in greatest dimension) Distance metastasis ? not applicable Additional pathologic findings ? fibrocystic changes and intraductal hyperplasia without atypia. Ancillary studies - previously performed on section of tumor ([id number] / [id number]). ER ? positive (ANDgt;95%, strong) RI ? positive (variable, 0-11%, weak) Her2 bhavani ? negative (1+) Microcalcifications ? not identified Clinical history - Please make reference to previous specimen ([id number]) left breast, ultrasound-guided needle core biopsy with diagnosis of invasive ductal carcinoma. ? PATHOLOGIC STAGE: pT2 pN1a(sn) Mx ?? The above summary is in compliance with [employer] [place] [employer] (CAP) Cancer Protocols Checklist and [place] Joint Committee on Cancer (AJCC), Staging Manual, 8th Ed. ? COMMENT A. The lymph nodes are almost completely involved by the metastatic tumor. The largest lymph node measures 3.6 cm in greatest dimension. The largest focus of metastasis measures 3.6 cm in greatest dimension. Focal extranodal distention is noted which measures 0.4 cm in greatest dimension. ANDquot;I think everything looks good.ANDquot; Appetite:good Energy level:fair ANDquot;I've had 3 surgeries close together.ANDquot; Denies fevers. Resp:denies cough or sob Cardiac:denies chest pain/palpitations GI:denies abd pain, n/v, moving bowels regularly :denies dysuria/hematuria Extrem:h/o psoriatic arthritis-R shoulder and L lateral chest surgical pain Neuro:denies symptoms of neuropathy Skin:denies rashes/lesions Heme:denies bleeding The ROS is otherwise negative. Past medical history, appointments, medications, allergies reviewed. No changes. EXAM: BP 153/72 Pulse 68 Temp 37 ?C (98.6 ?F) Wt 88.9 kg (196 lb) LMP 02/04/2010 BMI 37 kg/m2 APPEARANCE Well appearing, alert, in no acute distress, well- hydrated, well nourished. HEART RRR with normal S1 and S2, no murmurs LUNG clear to auscultation BREAST FEMALE b/l mastectomy scars, L axillary scar well healed without erythema/drainage, drain site covered with [id number]-uhr-qzngj drainage LYMPH NODES No cervical lymphadenopathy, No supraclavicular lymphadenopathy and No axillary lymphadenopathy. ABDOMEN bowel sounds normoactive, no bruits, soft, non-tender, non-distended, without organomegaly or palpable masses EXTREMITIES No edema NEURO Awake, alert and oriented x 3, Normal gait and No involuntary motions. SKIN Skin color, texture, turgor normal, no suspicious rashes or lesions ASSESSMENT/PLAN: 1. Malignant neoplasm of upper-outer quadrant of left breast in female, estrogen receptor positive (HCC) - ICD9: 174.4, V86.0, ICD10: C50.412, Z17.0 pT2 (3.5 cm; grade 3; no LVI) pN1a (3 of 3 SLNs) MX ER/RI positive, HER2 negative invasive ductal carcinoma the left breast. - Surgical sites well healed. - Start chemo pending Dr. Chong appt. today. - Pt. instructed to come back to scheduling desk after Dr. Chong's appt. to get her start date. - Pt. aware to call office with any questions/concerns. The patient indicates understanding of these issues and agrees with the plan. Ria Dee APRN.FORGING MACHINE OPERATOR Referring Provider: HARPREET PANTOJA [[id number]] Allergies As of Date: 06/08/2017 Noted Allergy Reaction IV DYE (IODINATED CONTRAST- ORAL *05/21/2006 4 - Hives SHELLFISH 05/21/2006 4 - Hives VICTOZA (LIRAGLUTIDE) 03/30/2017 5 - Intolerance Date Reviewed: 06/08/2017 Reviewed by: Drea Mccauley RN - Fully Assessed Reason for Visit: Established Patient [175] Primary Visit Diagnosis:Malignant neoplasm of upper-outer quadrant of left breast in female, estrogen receptor positive (HCC) [C50.412, Z17.0] Follow-up and Disposition History Recorded Prescriptions as of 06/08/2017 Sig: MELATONIN 3 MG TABLET Take 6 mg by mouth daily at b* OTC NUTRITIONAL SUPPLEMENT calm day IBUPROFEN 200 MG TABLET Take 600 mg by mouth twice da* ONDANSETRON HCL 8 MG TABLET Take 1 tablet by mouth every * OTEZLA 30 MG TABLET 30 mg twice daily. METFORMIN ER 500 MG TABLET,EX* Take 1,000 mg by mouth once d* SUMATRIPTAN 100 MG TABLET Take 100 mg by mouth as neede* OMEPRAZOLE 40 MG CAPSULE,CARLYN* Take 40 mg by mouth once adia* [id number] 5* Take 1 capsule by mouth once * TRAMADOL 50 MG TABLET Take 50 mg by mouth three lizeth* * FLUOXETINE 20 MG CAPSULE Take 20 mg by mouth once adia* * MULTIVITAMIN TABLET Take one(1) tablet daily. * CALCIUM + D 600 MG (1,500 MG)* Take one(1) tablet twice adia* * TYLENOL EXTRA STRENGTH 500 MG* Take two(2) tablets every six* Medication notes this encounter CALCIUM + D 600 MG (1,500 MG)-200 UNIT TABLET >> Francy Hill LPN 06/08/2017 8:56 AM >> FRANCY HILL LPN SunJun 08, 2017 8:56 AM Takes once a day PREDNISONE 50 MG TABLET >> Francy Hill LPN 06/08/2017 8:57 AM >> FRANCY HILL LPN SunJun 08, 2017 8:57 AM completed Problem List As Of Date 06/08/2017 Noted Resolved Postmenopausal bleeding [N95.0] INVALID FOR* Ovarian cyst [N83.209] INVALID FOR* Malignant neoplasm of upper-outer quadrant of l*INVALID FOR* 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 Visit Notes: >> Francy Hill LPN SunJun 08, 2017 8:58 AM Status: Signed Est patient. Discuss plan for chemo. Francy Hill LPN Encounter Status:Closed by RIA DEE CNP on 06/08/17 PROGRESS Observed: 05/30/2017 Status: COMPLETED Source: [place] 3:57 PM [facility] REPOSITORY HNO ID: [id number] Author: Fauzia uLcio (Sw) Service: (none) Author Type: Architectural Intern Type: Progress Notes Filed: 05/30/2017 4:00 PM Note Text: SOCIAL WORK FOLLOW UP NOTE: [facility] Date of service: May 30, 2017 Jessica Rodriguez is being seen for a follow up social work visit. Today's visit includes: patient TOPICS ADDRESSED: Short term disability claim; NIRANJAN faxed over office visit notes from 04/25, 04/30, 05/03, 05/07, 05/16, 05/21 and 05/22 on 05/25 to [employer], Attn: Cheryle Perez at [phone]. On this day, NIRANJAN faxed over office visit notes from 05/08 and 05/28 to same number and person. Patient notified that notes have been faxed over. PLAN: Continue follow up as needed F/U APPOINTMENT: MONA Huston PROGRESS Observed: 05/30/2017 Status: COMPLETED Source: [place] 2:47 PM [facility] REPOSITORY [facility]NO ID: [id number] Author: Hodan Chong Service: (none) Author Type: Physician Type: Progress Notes Filed: 05/30/2017 2:47 PM Note Text: Jessica is s/p completion right axillary lymphadenectomy done on 05/24/17. (also revision of mastectomy dog ear) She denies any problems. Feeling overall well. Pathology: Isolated metastatic tumor cells in one of seven lymph nodes MAC output is < 60 ml/day ? Examination: wounds are healing well, no evidence of infection, MAC drain removed without difficulty. ? Impression: s/p completion right axillary lymphadenectomy ? Plan: Patient is doing well. Follow up next week for healing status. Patient will follow up with Dr. Pantoja for chemotherapy. PROGRESS Observed: 05/30/2017 Status: COMPLETED Source: [place] 2:41 PM [facility] REPOSITORY [facility]NO ID: [id number] Author: Hodan Chong Service: (none) Author Type: Physician Type: Progress Notes Filed: 03/01/2018 12:16 PM Note Text: Jessica is s/p completion left axillary lymphadenectomy done on 05/24/17. (also revision of mastectomy dog ear) She denies any problems. Feeling overall well. Pathology: Isolated metastatic tumor cells in one of seven lymph nodes MAC output is < 60 ml/day Examination: wounds are healing well, no evidence of infection, MAC drain removed without difficulty. Impression: s/p completion left axillary lymphadenectomy Plan: Patient is doing well. Follow up next week for healing status. Patient will follow up with Dr. Pantoja for chemotherapy. CNOV Observed: 05/30/2017 Status: COMPLETED Source: [place] 1:10 PM [facility] REPOSITORY Office Visit (ALEXANDRO) MICHAELJESSICA ([id number]) 1955 F Date Time Provider Department 05/30/17 1:10 PM HODAN CHONG During your visit today, we recorded the following information about you: Hodan Chong MD 05/30/2017 2:47 PM Signed Jessica is s/p completion right axillary lymphadenectomy done on 05/24/17. (also revision of mastectomy dog ear) She denies any problems. Feeling overall well. Pathology: Isolated metastatic tumor cells in one of seven lymph nodes MAC output is ANDlt; 60 ml/day ? Examination: wounds are healing well, no evidence of infection, MAC drain removed without difficulty. ? Impression: s/p completion right axillary lymphadenectomy ? Plan: Patient is doing well. Follow up next week for healing status. Patient will follow up with Dr. Pantoja for chemotherapy. Referring Provider: RUTH CLARK [[id number]] Allergies As of Date: 05/30/2017 Noted Allergy Reaction IV DYE (IODINATED CONTRAST- ORAL *05/21/2006 4 - Hives SHELLFISH 05/21/2006 4 - Hives VICTOZA (LIRAGLUTIDE) 03/30/2017 5 - Intolerance Date Reviewed: 05/30/2017 Reviewed by: Hodan Chong - Fully Assessed Reason for Visit: Post Op [174] Primary Visit Diagnosis:Surgery follow-up examination [Z09] Prescriptions as of 05/30/2017 Sig: MELATONIN 3 MG TABLET Take 6 mg by mouth daily at b* OTC NUTRITIONAL SUPPLEMENT calm day IBUPROFEN 200 MG TABLET Take 600 mg by mouth twice da* ONDANSETRON HCL 8 MG TABLET Take 1 tablet by mouth every * PREDNISONE 50 MG TABLET Take 1 tablet 13, 7 and 1 baldomero* OTEZLA 30 MG TABLET 30 mg twice daily. METFORMIN ER 500 MG TABLET,EX* Take 1,000 mg by mouth once d* SUMATRIPTAN 100 MG TABLET Take 100 mg by mouth as neede* OMEPRAZOLE 40 MG CAPSULE,CARLYN* Take 40 mg by mouth once adia* RKIWWSWEXL-SJKPIYH-HAGNRUYS 5* Take 1 capsule by mouth once * TRAMADOL 50 MG TABLET Take 50 mg by mouth three lizeth* * FLUOXETINE 20 MG CAPSULE Take 20 mg by mouth once adia* * MULTIVITAMIN TABLET Take one(1) tablet daily. 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 Encounter Status:Closed by MD HODAN CHONG on 05/30/17 PROGRESS Observed: 05/28/2017 Status: COMPLETED Source: [place] 10:06 AM [facility] REPOSITORY [facility] ID: [id number] Author: Fauzia Lucio (Sw) Service: (none) Author Type: Architectural Intern Type: Progress Notes Filed: 05/28/2017 10:07 AM Note Text: Social Work Problem Referral Note INFORMATION/REFERRAL : Jessica Rodriguez 62 year old female was referred by [facility] Work for the following reason(s): disability planning PERSONS INTERVIEWED: patient INTERVENTION: Information AND Referral Service Co-ordination Affect/Mood: The patient is noted as appropriate IDENTIFIED PROBLEMS/NEEDS: Disability Intervention/Referral to be provided:Arrangements made for continuity of care IMPRESSION/PLAN: Patient met with NIRANJAN regarding short-term disability letter she received from [employer]. NIRANJAN reviewed letter, which is requesting medical records from 04/12/17 to present. NIRANJAN printed off all records during this time frame and will begin faxing them to appropriate number. NIRANJAN will call patient when this is completed. F/U APPOINTMENT: MONA Huston Observed: 05/28/2017 Status: COMPLETED Source: [place] 8:20 AM [facility] REPOSITORY Office Visit (GENSWS) ERMAJESSICA LANGLEY ([id number]) 1955 F Date Time Provider Department 05/28/17 8:20 AM HODAN CHONG During your visit today, we recorded the following information about you: Hodan Chong MD 03/01/2018 12:16 PM Addendum Jessica is s/p completion left axillary lymphadenectomy done on 05/24/17. (also revision of mastectomy dog ear) She denies any problems. Feeling overall well. Pathology: Isolated metastatic tumor cells in one of seven lymph nodes MAC output is < 60 ml/day Examination: wounds are healing well, no evidence of infection, MAC drain removed without difficulty. Impression: s/p completion left axillary lymphadenectomy Plan: Patient is doing well. Follow up next week for healing status. Patient will follow up with Dr. Pantoja for chemotherapy. Referring Provider: RUTH CLARK [[id number]] Allergies As of Date: 05/28/2017 Noted Allergy Reaction IV DYE (IODINATED CONTRAST- ORAL *05/21/2006 4 - Hives SHELLFISH 05/21/2006 4 - Hives VICTOZA (LIRAGLUTIDE) 03/30/2017 5 - Intolerance Date Reviewed: 05/28/2017 Reviewed by: Liliane Allen LPN - Fully Assessed Reason for Visit: Post Op [174] Primary Visit Diagnosis:Surgery follow-up examination [Z09] Prescriptions as of 05/28/2017 Sig: OTC NUTRITIONAL SUPPLEMENT calm day X MELATONIN 3 MG TABLET Take 6 mg by mouth daily at b* IBUPROFEN 200 MG TABLET Take 600 mg by mouth twice da* X ONDANSETRON HCL 8 MG TABLET Take 1 tablet by mouth every * X PREDNISONE 50 MG TABLET Take 1 tablet 13, 7 and 1 baldomero* METFORMIN ER 500 MG TABLET,EX* Take 500 mg by mouth twice da* X OTEZLA 30 MG TABLET 30 mg twice daily. SUMATRIPTAN 100 MG TABLET Take 100 mg by mouth as neede* OMEPRAZOLE 40 MG CAPSULE,CARLYN* Take 40 mg by mouth once adia* QSWCCVCOXF-JLDOSCA-IJQTIIMP 5* Take 1 capsule by mouth once * TRAMADOL 50 MG TABLET Take 50 mg by mouth three lizeth* * FLUOXETINE 20 MG CAPSULE Take 20 mg by mouth once adia* * MULTIVITAMIN TABLET Take one(1) tablet daily. 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 Follow-up and Disposition History Recorded Letter Text Encounter Status:Closed by MD HODAN CHONG on 05/30/17 CNSW Observed: 05/28/2017 Status: COMPLETED Source: [place] 12:00 AM [facility] REPOSITORY Social Work (BRETT) JESSICA RODRIGUEZ ([id number]) 1955 F Date Time Provider Department 05/28/17 FAUZIA LUCIO (SW) During your visit today, we recorded the following information about you: MONA Mclean 05/28/2017 10:07 AM Signed Social Work Problem Referral Note INFORMATION/REFERRAL : Jessica Rodriguez 62 year old female was referred by [facility] for the following reason(s): disability planning PERSONS INTERVIEWED: patient INTERVENTION: Information ANDamp; Referral Service Co-ordination Affect/Mood: The patient is noted as appropriate IDENTIFIED PROBLEMS/NEEDS: Disability Intervention/Referral to be provided:Arrangements made for continuity of care IMPRESSION/PLAN: Patient met with NIRANJAN regarding short-term disability letter she received from [employer]. NIRANJAN reviewed letter, which is requesting medical records from 04/12/17 to present. NIRANJAN printed off all records during this time frame and will begin faxing them to appropriate number. NIRANJAN will call patient when this is completed. F/U APPOINTMENT: MONA Huston LISW 05/30/2017 4:00 PM Signed SOCIAL WORK FOLLOW UP NOTE: [facility] Date of service: May 30, 2017 Jessica Rodriguez is being seen for a follow up social work visit. Today's visit includes: patient TOPICS ADDRESSED: Short term disability claim; NIRANJAN faxed over office visit notes from 04/25, 04/30, 05/03, 05/07, 05/16, 05/21 and 05/22 on 05/25 to [employer], Attn: Cheryle Perez at [phone]. On this day, NIRANJAN faxed over office visit notes from 05/08 and 05/28 to same number and person. Patient notified that notes have been faxed over. PLAN: Continue follow up as needed F/U APPOINTMENT: MONA Huston Allergies As of Date: 05/28/2017 Noted Allergy Reaction IV DYE (IODINATED CONTRAST- ORAL *05/21/2006 4 - Hives SHELLFISH 05/21/2006 4 - Hives VICTOZA (LIRAGLUTIDE) 03/30/2017 5 - Intolerance Date Reviewed: 05/28/2017 Reviewed by: Liliane Allen LPN - Fully Assessed Reason for Visit: Social Work Services [507] Cmt: Short-term disability Prescriptions as of 05/28/2017 Sig: MELATONIN 3 MG TABLET Take 6 mg by mouth daily at b* OTC NUTRITIONAL SUPPLEMENT calm day IBUPROFEN 200 MG TABLET Take 600 mg by mouth twice da* ONDANSETRON HCL 8 MG TABLET Take 1 tablet by mouth every * PREDNISONE 50 MG TABLET Take 1 tablet 13, 7 and 1 baldomero* OTEZLA 30 MG TABLET 30 mg twice daily. METFORMIN ER 500 MG TABLET,EX* Take 1,000 mg by mouth once d* SUMATRIPTAN 100 MG TABLET Take 100 mg by mouth as neede* OMEPRAZOLE 40 MG CAPSULE,CARLYN* Take 40 mg by mouth once adia* PEYDRDDHOB-IOCEAMB-VOTLQQYA 5* Take 1 capsule by mouth once * TRAMADOL 50 MG TABLET Take 50 mg by mouth three lizeth* * FLUOXETINE 20 MG CAPSULE Take 20 mg by mouth once adia* * MULTIVITAMIN TABLET Take one(1) tablet daily. 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 Encounter Status:Closed by FAUZIA LUCIO on 05/28/17 OPERATIVE REPORT Observed: 05/27/2017 Status: F Source: [place] 7:51 PM [facility] REPOSITORY [facility] Medical Records Department [address] [place] [id number] Operative Report 05/24/17 0900 MR#: [id number] Acct: [id number] Name: JESSICA RODRIGUEZ Rep #: [id number] : 1955 62 From: Hodan Chong MD PCP: Ruth Clark DO Status: [facility] Y [place] [facility] Report of Operation Date of Procedure: 05/24/17 Pre-Operative Diagnosis: history of left breast cancer, left axillary bulky adenopathy, left mastectomy dog ear Post-Operative Diagnosis: same as above Surgery/Procedure Performed:: Left axillary lymphadenectomy, revision of left mastectomy dog ear Description of Surgical Findings:: bulky adenopathy of left axilla, left mastectomy lateral dog ear human resources safety manager: Alma Swan Type of Anesthesia:: General Anesthesiologist: April Fulton Specimen's removed: left axillary lymph node [...] in the inferior portion of the hair bearing area of the left axilla. It was carried through to the subcutaneous tissues using electrocautery. Any hemorrhage was controlled with electrocautery. A Weitlaner retractor was used for increased operative exposure. Blunt dissection was done to fully enter into the axillary fossa. The axillary vein was identified. Dissection was then continued inferior to the vein, ligating lymphatic vessels and small blood vessels with the Harmonic scalpel. Dissection [...] surrounding tissues. The tissue once was then forwarded to pathology for analysis. Of note, there is bulky adenopathy noted in the axillary macie tissue. Hemostasis was controlled with electrocautery. The long thoracic nerve and thoracodorsal nerves were identified and were intact and functioning. Jason [...] suture in a horizontal mattress fashion and then further closed with running 4-0 monocryl in [...] dog ear tissue. It was sharply carried down to the subcutaneous tissues. Hemostasis was controlled with electrocautery. The extra subcutaneous fatty tissue was excised by sharp dissection. The tissue was forwarded to pathology for analysis. The deep tissues were approximated with vicryl suture. Reapproximation of the skin would require a Y shaped incisional scar. A horizontal mattress suture into the dermis was placed with 3-0 vicryl suture. The skin incision was then closed with running subcuticular 4-0 monocryl suture. Cavilon and steristrips were then placed to reinforce the skin closure and proper sterile dressings were applied. - Complications none noted - Admit VTE Documentation VTE Present on Admission: Yes VTE Mechan Device Prophylaxis: SCD's 05/27/171950 <Electronically signed by Hodan Chong MD> Date Hodan Chong MD CC: Ruth Clark DO; Hodan Chong MD Signed BEDSIDE GLUCOSE Collected: 05/24/2017 Status: F Source: [place] 10:17 AM [facility] REPOSITORY TYPE CODE TESTS RESULT OUT OF REFERENCE UNITS RANGE LAB L501.080 70-110 mg/dL High BEDSIDE GLU 126 Result Comment: MANAGEMENT OF PATIENT CARE PER NURSING PROTOCOL Performed By: #### L501.080 #### [facility] Point of Care [address] [facility] [place] [address] DISCHARGE INSTRUCTION Observed: 05/24/2017 Status: F Source: [place] 9:06 AM [facility] REPOSITORY [facility] Medical Records Department [address] [place] [address] Instructions for Home/Discharge Instructions 05/24/17 0903 MR#: [id number] Acct: [id number] Name: JESSICA RODRIGUEZ Rep #: [id number] : 1955 62 From: Hodan Chong MD PCP: Ruth Clark DO Status: REG [facility] Discharge Diet: No Restrictions Discharge Activity: Return to Normal Activity, May not drive while taking narcotic pain medications. Lifting Restrictions: no lifting with left arm greater than 20 pounds Call your doctor if your incision/area has: Continuous Slow Oozing, Foul Smelling Discharge Call your doctor if you observe: Fever of 101 or Higher Additional Dressing/Incision Instructions:: Leave dressings in place. Sponge bathe only until MAC drain is removed. Allergies/Adverse Reactions: Allergies shellfish derived Allergy (Mild, Verified 05/23/17 08:38) Hives iodine Allergy (Verified 05/23/17 08:38) Hives liraglutide [From Victoza] Adverse Reaction (Verified 05/23/17 08:38) Nausea, VOMITING IV DYE Allergy (Mild, Uncoded 05/23/17 08:38) Hives Medications to take at Discharge Butalbital/Aspirin/Caffeine [Fiorinal 50-325-40 mg Capsule] 1 tab PO DAILY PRN PRN 03/21/13 Fluoxetine [Prozac] 20 mg PO DAILY 03/21/13 Multivitamins,Therapeutic [Multivitamin] 1 tablet PO QHS 03/21/13 Omeprazole [Prilosec] 40 mg PO DAILY 03/21/13 Acetaminophen [Tylenol Extra Strength] 500 - 1,000 mg PO Q6H PRN PRN 04/18/17 Apremilast [Otezla] 30 mg PO BID 04/18/17 Ascorbic Acid [Vitamin C] 500 mg PO MOWEFR 04/18/17 Aspirin/Acetaminophen/Caffeine [Excedrin Migraine Caplet] 1 each PO PRN PRN 04/18/17 Calm Day 3 cap PO DAILY 04/18/17 Cholecalciferol (Vitamin D3) [Vitamin D3] 2,000 unit PO DAILY 04/18/17 Ibuprofen 400 mg PO PRN PRN 04/18/17 Melatonin [Melatin] 6 mg PO QHS 04/18/17 Metformin HCl 500 mg PO BID 04/18/17 Calcium (Elemental) [Os-Nayla 500] 1,000 mg PO DAILY 05/23/17 Hydrocodone Bitart/Apap 5-325 [Kelley 5MG-325MG] 1 tab PO Q6H PRN PRN #20 tab 05/24/17 The following prescriptions were given: Hydrocodone Bitart/Apap 5-325 [Kelley 5MG-325MG] 1 tab PO Q6H PRN PRN #20 tab PRN Reason: Pain Primary Care Physician: Ruth Clark DO [Primary Care Provider] - Please Follow Up With: Hodan Chong MD - call When: to be seen on Sunday, please call for time, thank you 05/24/17905 <Electronically signed by Hodan Chong MD> Date Hodan Chong MD CC: Ruth Clark DO MISCELLANEOUS SPECIMEN Observed: 05/24/2017 Status: F Source: [place] 7:30 AM [facility] REPOSITORY Patient: JESSICA RODRIGUEZ : 1955 (62/F) Acct Num: [id number] Phys: Castillo MCMILLAN,Hodan Unit Num: [id number] Loc: [facility] Specimen: [id number] Received: 05/24/17 - 1037 Spec Type: [facility] TISSUES TISSUES: A. Left axillary region B. Skin of breast, NOS COMMENT Case has been reviewed in consultation with Dr. Skinner who concurs with the above diagnosis. IDC:SJ GROSS DESCRIPTION A - Received in fixative is one container labeled with the patient's name and designated left axillary contents. The specimen consists of a piece of bagley- yellow adipose tissue with multiple sutures measuring 8 x 6 x 2 cm. One large lymph node is identified measuring 2.5 cm in greatest dimension. Multiple additional smaller lymph nodes are identified measuring 0.5 to 2 cm in greatest dimension. The lymph nodes are submitted in entirety. Failure Analysis Engineer sections are submitted as follows: 1 multiple lymph nodes, 2-4 largest lymph node serially sectioned, 5 one bisected lymph node, 6 - one bisected lymph node, 7 multiple lymph nodes. Sections will be submitted after overnight fixation. / : 05/24/17 B - Received in fixative is one container labeled with the patient's name and designated dog ear. The specimen consists of a piece of skin with underlying adipose tissue measuring 6 x 3 cm and up to 7 cm in thickness. A focal area of scar is noted in the skin surface. The specimen is shaped like a dog ear. No mass lesion is identified. Failure Analysis Engineer sections are submitted in four cassettes. / SJ: 05/24/17 TC:0 CPT: 92336, 22522 HEADER OPERATION: Excision lymph node, axillary PRE-OP DIAGNOSIS: Left breast cancer, invasive ductal, ER/RI positive, HER2 negative, bulky adenopathy of left axilla TISSUE SUBMITTED: A Left axillary contents, B Dog ear MICROSCOPIC DESCRIPTION Slides are reviewed. A. The largest lymph node contains benign histiocytic proliferation, fibrosis and minimal chronic inflammation consistent with previous biopsy and resection ( [id number]). Immunohistochemistry ([id number]) supports the presence of isolated metastatic tumor cells in one out of seven lymph nodes. MICROSCOPIC DIAGNOSIS A. Left axillary contents, regional lymphadenectomy: Isolated metastatic tumor cells in one of seven lymph nodes. B. Dog ear, excision: Skin with attached fibrofatty tissue with reactive and reparative change and suture granulomas. No evidence of malignancy. AM:lilibeth 05/28/17 Signed Sotero Cary 05/30/17 <signature on file> Performed By: #### PMISC #### [facility] [address] [facility] [place], [place], [address] BEDSIDE GLUCOSE Collected: 05/24/2017 Status: F Source: [place] 5:44 AM [facility] REPOSITORY TYPE CODE TESTS RESULT OUT OF REFERENCE UNITS RANGE LAB L501.080 70-110 mg/dL High BEDSIDE GLU 178 Result Comment: MANAGEMENT OF PATIENT CARE PER NURSING PROTOCOL Performed By: #### L501.080 #### [facility] Point of Care [address] [facility] [place], [place] [address] IMMUNOHISTOCHEMISTRY Observed: 05/24/2017 Status: F Source: [place] 12:00 AM [facility] REPOSITORY Patient: JESSICA RODRIGUEZ : 1955 (62/F) Acct Num: [id number] Phys: Hodan Chong MD Unit Num: [id number] Loc: [facility] Specimen: [id number] Received: 05/28/17 1426 Spec Type: IMMUNO TISSUES TISSUES: A. Axilla, NOS SPECIMEN INFORMATION: Tissue Source: A Left axillary contents Clinical Info: Left breast cancer Specimen Number: [id number] A1, A2, A4, A5, A7 CPT code: 51955, 06174 x4 METHODOLOGY: Deparaffinized sections of prefer/formalin-fixed tissue or PAP/DQ stained slides are incubated with monoclonal/polyclonal antibodies/oligonucleotide probes. Localization is made via biotin free immunoperoxidase method. Appropriate controls are performed and reacted as expected. Results on target cell population are indicated in the following table: RESULTS: ANTIBODY / CLONE RESULT Block A1 AE1-3 (AE1/AE3/PCK26) negative Block A2 AE1-3 (AE1/AE3/PCK26) positive Block A4 AE1-3 (AE1/AE3/PCK26) negative Block A5 AE1-3 (AE1/AE3/PCK26) negative Block A7 AE1-3 (AE1/AE3/PCK26) negative These tests were developed and their performance characteristics determined by [facility]. They may not have been cleared or approved by the U.S. Food and Drug Administration. The FDA has determined that such clearance or approval is not necessary. INTERPRETATION: A. Left axillary contents: Isolated metastatic tumor cells present in one out of seven lymph nodes. AM:lilibeth 05/30/17 PHYSICIAN AND INSTIT[facility] [address] [address] Signed Sotero Cary 05/30/17 <signature on file> Performed By: #### PIMM #### [facility] [address] [place] [address]. [place], [address] PROGRESS Observed: 05/22/2017 Status: COMPLETED Source: [place] 8:11 PM [facility] [place] REPOSITORY [facility] ID: [id number] Author: Hodan Chong Service: (none) Author Type: Physician Type: Progress Notes Filed: 05/25/2017 10:50 AM Note Text: HPI: Jessica is a pleasant 61 year old female who presents with abnormal left breast mammograms/US. Had previous left breast biopsy - needle core - 05/23/10. US - 3 cm irregular high density mass with a microlobulated margin in the left breast at 12:00 - middle depth, also axillary adenopathy Patient notes increased density of the left breast. Also just recently noted erythema of skin. Also notes flattening of the nipple in this location. Denies nipple discharge. Pathology of biopsy done 04/05/17: Invasive ductal carcinoma, nuclear grade 3 (1 cm in greatest length). ?ER (clone 6F11) >95%, RI variable, 0-11%, Her 2 neg She is s/p left mastectomy and axillary lymph node biopsy on 04/30/17, also prophylactic right breast mastectomy. Pathology reveals positive axillary lymph nodes, see Dr. Zepeda's note dated 05/21/17. Patient is here for discussion for left axillary lymphadenectomy ? ? PAST MEDICAL HISTORY - Diverticulosis of colon with hemorrhage ? - Personal history of colonic polyps ? - PMH - PAST MEDICAL HISTORY OF ? ? SPASTIC COLON - Psoriatic arthritis (HCC) ? - Tension headache ? - Type II or unspecified type diabetes mellitus without mention of complication, not stated as uncontrolled ? ? PAST SURGICAL HISTORY - COLONOSCOP W/ OR W/O BRSH SPEC ? 2000 - COLONOSCOP W/ OR W/O BRSH SPEC ? 12/09/2012 - EGD W/O OR W/BRUSH/WASH ? 12/09/2012 - EXCIS BREAST LESION Left breast - HYSTEROSCOPY WBX WWO D AND C ANDOR POLYPECTOMY ? 2011 - LIGATE FALLOPIAN TUBE ? ? - PAST SURGICAL HISTORY OF cyst removed from back ? PAST INJURIES Denies head injuries, denies history of fractures ? Current Outpatient Prescriptions: OTEZLA 30 mg tablet ? AFLURIA QUAD [id number], PF, 60 mcg/0.5 mL syrg To be injected by Pharmacist metFORMIN ER (GLUCOPHAGE XR) 500 mg 24 hr tablet Take 1,000 mg by mouth once daily. SUMAtriptan (IMITREX) 100 mg tablet Take 100 mg by mouth as needed. Omeprazole (PRILOSEC) 40 mg capsule Take 40 mg by mouth once daily. methotrexate 2.5 mg tablet Take 2.5 mg by mouth as directed. Pt is taking 6 tablets, once weekly hydroxychloroquine (PLAQUENIL) 200 mg tablet Take 200 mg by mouth twice daily. LEUCOVORIN CALCIUM ORAL Take 5 mg by mouth once each week. Pt takes this the day after taking methotrexate. czdabma-ofajwkiz-zhnylettjw capsule Take 1 capsule by mouth once daily as needed. traMADol 50 mg tablet Take 50 mg by mouth three times daily as needed. eletriptan (RELPAX) 20 mg tablet Take 20 mg by mouth as needed. may repeat in 2 hours if necessary saxagliptin-metFORMIN (KOMBIGLYZE XR) 5-1,000 mg TM24 Take by mouth. Flaxseed Oil 1,000 mg ORAL Cap Take 1 capsule by mouth once daily. simvastatin (ZOCOR) 20 mg ORAL tablet Take 1 tablet by mouth daily at bedtime. omeprazole (PRILOSEC) 20 mg ORAL capsule Take 1 capsule by mouth once daily. LORazepam 0.5 mg ORAL Tab Take 0.5 mg by mouth once daily as needed. fluoxetine 20 mg ORAL capsule Take 20 mg by mouth once daily. gluc perez/chondro perez a/vit c/mn(GLUCOSAMINE CHONDROITIN MAXIMUM STRENGTH 500 MG-400 MG CAP) Take one(1) capsules three(3) times daily.. naproxen sodium(ALEVE 220 MG TAB) PRN MULTIVITAMIN TAB Take one(1) tablet daily. CALCIUM + D 600 MG-200 UNIT TAB Take one(1) tablet twice daily. TYLENOL EXTRA STRENGTH 500 MG TAB Take two(2) tablets every six(6) hours as needed for pain. ? ALLERGIES: Iodine; Iv Dye [Iodinated Contrast- Oral And Iv Dye]; Shellfish; Victoza [Liraglutide] ? PERSONAL HISTORY: Social History Marital status: Spouse name: Niles Years of education: 16 Number of children: 0 Occupational History Occupation Employer Comment [employer] [facility] Social History Main Topics Smoking status: Passive Smoke Exposure - Never Smoker Packs/day: 0.00 Years: 0.00 Smokeless status: Never Used Comment: smokes socially Alcohol use: No Drug use: No Sexual activity: Not Currently Partners with: Male control/protection: Tubal Ligation ? FAMILY HISTORY - Diabetes Father ? - Heart Father ? - Breast Cancer Maternal Grandmother ? - Prostate Cancer Maternal Grandfather ? - Osteoporosis Mother ? - Osteoporosis Sister ? - Hypertension Sister ? - Lipids Father ? - Arthritis Mother ? - GI Mother ? ? ? IBS ? REVIEW OF SYSTEMS: General: The patient denies fatigue, denies weight loss, denies weight gain, denies feeling hot, and denies feelings of cold. Eyes: The patient denies glaucoma, denies eye injury/surgery, wears glasses or contacts. Ear/Nose/Throat: The patient denies allergies, denies hayfever, denies ear infections, and denies bloody noses. Cardiovascular:denies chest pain, denies heart disease, denies high blood pressure,denies cardiac stent, denies prior heart attack, denies irregular heart beat, denies high cholesterol, denies poor circulation, denies heart failure, other cardiac issues, denies claudication, denies cold feet, denies peripheral arterial stent. Respiratory: The patient denies tuberculosis, denies pneumonia, denies frequent cough, denies pulmonary embolism, denies shortness of breath, and denies coughing up blood. Gastrointestinal: had last colonoscopy Feb 2017, denies difficulty swallowing, NOTES acid reflux, denies ulcers, denies vomiting, denies jaundice/hepatitis, denies gallbladder problems, denies black or tarry stools, denies hemorrhoids, denies bleeding from rectum, denies diverticulitis, denies constipation, denies diarrhea, denies loss of stool control, and denies hernias. Kidney/Bladder: The patient denies kidney stones, denies urine infections, and denies bloody urine. Skin: The patient denies a history of skin cancer, denies bleeding/changing moles, and denies a history of skin rash. Neurologic:has tension headaches, denies seizures, denies head/spinal injuries, and denies stroke/TIA. Psychiatric: The patient denies psychiatric medications, NOTES depression, and denies voices, denies substance abuse. Endocrine: The patient denies thyroid disorders, NOTES diabetes, and denies hormonal problems. Hematologic: The patient denies a history of bruising, denies bleeding, and denies anemia, denies blood clots. Infections: The patient denies a history of measles and mumps, denies rheumatic fever, and denies sexually transmitted diseases. Musculoskeletal: has osteoarthritis of shoulders, denies back pain/injury, denies back problems, denies sciatica, denies knee/foot trouble, NOTES arthritis, or denies gout. Obstetrical: menarche onset at age 13, had shots to induce normal menstrual periods then started on hormones at age 16 and continued until age 19 and then begun on BCP - all to aid in normalizing menstrual periods, patient had normal menstrual periods starting at age 42, menopause around age 52 ? PHYSICAL EXAMINATION: General: The patient is 61 year old female, well nourished, well hydrated in no acute distress. The patient is oriented to time, place, and person. VITALS: Blood pressure 138/62, pulse 64, weight 88.5 kg (195 lb). Body mass index is 36.25 kg/(m2) Head ? Normocephalic. EOM intact with sclera clear and no icterus noted. Mouth with mucus membranes moist. Neck - supple with no jugular venous distention noted. Trachea is midline. No carotid bruits noted. No thyroid enlargement or thyroid nodules detected. No masses noted. Chest/breast ? no asymmetry of breasts noted, slight erythema to skin medially, no nipple discharge and both nipples everted though left nipple is less everted than right, nodular breast tissue palpated bilaterally, dense specific area of left breast at 10 to 11 oclock near areolar border but not discrete - well healed incisional site Lungs ? clear to auscultation. Normal breath sounds. No rales/rhonchi/wheezing noted. No labored breathing noted, such as retractions. No cough heard. Heart ? normal S1 and S2 auscultated. No rubs/clicks/murmurs noted. Regular rate. Abdomen ? soft and benign. Normal bowel sounds. No abdominal bruits noted. Difficult to determine if any masses or organomegaly due to body habitus. Extremities ? no calf tenderness noted. No pitting edema noted. Skin ? normal skin integrity. Lymph ? no cervical adenopathy detected, no supraclavicular adenopathy detected, no axillary adenopathy detected Neurological ? gait normal, no focal deficits Psych ? calm and appropriate RADIOLOGIC STUDIES: As Noted ?? IMPRESSION: left breast cancer, invasive ductal, ER/RI positive, Her2 negative - bulky adenopathy of left axilla ? PLAN: I have discussed the above with the patient and her . Plan left axillary lymphadenectomy I have counseled the patient as to the risks of the procedure, including but not limited to: infection, bleeding, injury to any blood vessels/nerves, scar tissue, injury to the lymphatics resulting in lymph leak and/or persistant seroma, injury to second intercostal brachial/thoracodorsal/long thoracic nerves and their sequelae, persistent seroma, wound breakdown, wound infections, cosmetic deformity, complications of anesthesia, other perioperative morbidities such as CVA/IA/PE/pneumonia, etc. ? the patient understands. The patient wishes to proceed. Will schedule for left axillary lymphadenectomy surgery at [facility]. I have answered all questions to the patient?s satisfaction and the patient has no further questions. Greater than 50% of this patient encounter was dedicated to face to face discussion with the patient. . Diagnoses: (C50.412, Z17.0) Malignant neoplasm of upper-outer quadrant of left breast in female, estrogen receptor positive (HCC) (primary encounter diagnosis) ?? CNOV Observed: 05/22/2017 Status: COMPLETED Source: [place] 2:00 PM [facility] REPOSITORY Office Visit (GENSWS) JESSICA RODRIGUEZ ([id number]) 1955 F Date Time Provider Department 05/22/17 2:00 PM HODAN CHONG During your visit today, we recorded the following information about you: Hodan Chong MD 05/25/2017 10:50 AM Signed HPI: Jessica is a pleasant 61 year old female who presents with abnormal left breast mammograms/US. Had previous left breast biopsy - needle core - 05/23/10. US - 3 cm irregular high density mass with a microlobulated margin in the left breast at 12:00 - middle depth, also axillary adenopathy Patient notes increased density of the left breast. Also just recently noted erythema of skin. Also notes flattening of the nipple in this location. Denies nipple discharge. Pathology of biopsy done 04/05/17: Invasive ductal carcinoma, nuclear grade 3 (1 cm in greatest length). ?ER (clone [id number]) ANDgt;95%, RI variable, 0-11%, Her 2 neg She is s/p left mastectomy and axillary lymph node biopsy on 04/30/17, also prophylactic right breast mastectomy. Pathology reveals positive axillary lymph nodes, see Dr. Zepeda's note dated 05/21/17. Patient is here for discussion for left axillary lymphadenectomy ? ? PAST MEDICAL HISTORY - Diverticulosis of colon with hemorrhage ? - Personal history of colonic polyps ? - PMH - PAST MEDICAL HISTORY OF ? ? SPASTIC COLON - Psoriatic arthritis (HCC) ? - Tension headache ? - Type II or unspecified type diabetes mellitus without mention of complication, not stated as uncontrolled ? ? PAST SURGICAL HISTORY - COLONOSCOP W/ OR W/O [facility] SPEC ? 2000 - COLONOSCOP W/ OR W/O [facility] SPEC ? 12/09/2012 - EGD W/O OR W/BRUSH/WASH ? 12/09/2012 - EXCIS BREAST LESION Left breast - HYSTEROSCOPY WBX WWO D AND C ANDOR POLYPECTOMY ? 2011 - LIGATE FALLOPIAN TUBE ? ? - PAST SURGICAL HISTORY OF cyst removed from back ? PAST INJURIES Denies head injuries, denies history of fractures ? Current Outpatient Prescriptions: OTEZLA 30 mg tablet ? AFLURIA QUAD [id number], PF, 60 mcg/0.5 mL syrg To be injected by Pharmacist metFORMIN ER (GLUCOPHAGE XR) 500 mg 24 hr tablet Take 1,000 mg by mouth once daily. SUMAtriptan (IMITREX) 100 mg tablet Take 100 mg by mouth as needed. Omeprazole (PRILOSEC) 40 mg capsule Take 40 mg by mouth once daily. methotrexate 2.5 mg tablet Take 2.5 mg by mouth as directed. Pt is taking 6 tablets, once weekly hydroxychloroquine (PLAQUENIL) 200 mg tablet Take 200 mg by mouth twice daily. LEUCOVORIN CALCIUM ORAL Take 5 mg by mouth once each week. Pt takes this the day after taking methotrexate. erckbjq-gfhfgbmj-erurojhbxi capsule Take 1 capsule by mouth once daily as needed. traMADol 50 mg tablet Take 50 mg by mouth three times daily as needed. eletriptan (RELPAX) 20 mg tablet Take 20 mg by mouth as needed. may repeat in 2 hours if necessary saxagliptin-metFORMIN (KOMBIGLYZE XR) 5-1,000 mg TM24 Take by mouth. Flaxseed Oil 1,000 mg ORAL Cap Take 1 capsule by mouth once daily. simvastatin (ZOCOR) 20 mg ORAL tablet Take 1 tablet by mouth daily at bedtime. omeprazole (PRILOSEC) 20 mg ORAL capsule Take 1 capsule by mouth once daily. LORazepam 0.5 mg ORAL Tab Take 0.5 mg by mouth once daily as needed. fluoxetine 20 mg ORAL capsule Take 20 mg by mouth once daily. gluc perez/chondro perez a/vit c/mn(GLUCOSAMINE CHONDROITIN MAXIMUM STRENGTH 500 MG-400 MG CAP) Take one(1) capsules three(3) times daily.. naproxen sodium(ALEVE 220 MG TAB) PRN MULTIVITAMIN TAB Take one(1) tablet daily. CALCIUM + D 600 MG-200 UNIT TAB Take one(1) tablet twice daily. TYLENOL EXTRA STRENGTH 500 MG TAB Take two(2) tablets every six(6) hours as needed for pain. ? ALLERGIES: Iodine; Iv Dye [Iodinated Contrast- Oral And Iv Dye]; Shellfish; Victoza [Liraglutide] ? PERSONAL HISTORY: Social History Marital status: Spouse name: Niles Years of education: 16 Number of children: 0 Occupational History Occupation Employer Comment [employer] [facility] [employer] [employer] [facility]* Social History Main Topics Smoking status: Passive Smoke Exposure - Never Smoker Packs/day: 0.00 Years: 0.00 Smokeless status: Never Used Comment: smokes socially Alcohol use: No Drug use: No Sexual activity: Not Currently Partners with: Male control/protection: Tubal Ligation ? FAMILY HISTORY - Diabetes Father ? - Heart Father ? - Breast Cancer Maternal Grandmother ? - Prostate Cancer Maternal Grandfather ? - Osteoporosis Mother ? - Osteoporosis Sister ? - Hypertension Sister ? - Lipids Father ? - Arthritis Mother ? - GI Mother ? ? ? IBS ? REVIEW OF SYSTEMS: General: The patient denies fatigue, denies weight loss, denies weight gain, denies feeling hot, and denies feelings of cold. Eyes: The patient denies glaucoma, denies eye injury/surgery, wears glasses or contacts. Ear/Nose/Throat: The patient denies allergies, denies hayfever, denies ear infections, and denies bloody noses. Cardiovascular:denies chest pain, denies heart disease, denies high blood pressure,denies cardiac stent, denies prior heart attack, denies irregular heart beat, denies high cholesterol, denies poor circulation, denies heart failure, other cardiac issues, denies claudication, denies cold feet, denies peripheral arterial stent. Respiratory: The patient denies tuberculosis, denies pneumonia, denies frequent cough, denies pulmonary embolism, denies shortness of breath, and denies coughing up blood. Gastrointestinal: had last colonoscopy Feb 2017, denies difficulty swallowing, NOTES acid reflux, denies ulcers, denies vomiting, denies jaundice/hepatitis, denies gallbladder problems, denies black or tarry stools, denies hemorrhoids, denies bleeding from rectum, denies diverticulitis, denies constipation, denies diarrhea, denies loss of stool control, and denies hernias. Kidney/Bladder: The patient denies kidney stones, denies urine infections, and denies bloody urine. Skin: The patient denies a history of skin cancer, denies bleeding/changing moles, and denies a history of skin rash. Neurologic:has tension headaches, denies seizures, denies head/spinal injuries, and denies stroke/TIA. Psychiatric: The patient denies psychiatric medications, NOTES depression, and denies voices, denies substance abuse. Endocrine: The patient denies thyroid disorders, NOTES diabetes, and denies hormonal problems. Hematologic: The patient denies a history of bruising, denies bleeding, and denies anemia, denies blood clots. Infections: The patient denies a history of measles and mumps, denies rheumatic fever, and denies sexually transmitted diseases. Musculoskeletal: has osteoarthritis of shoulders, denies back pain/injury, denies back problems, denies sciatica, denies knee/foot trouble, NOTES arthritis, or denies gout. Obstetrical: menarche onset at age 13, had ANDquot;shotsANDquot; to induce normal menstrual periods then started on hormones at age 16 and continued until age 19 and then begun on BCP - all to aid in normalizing menstrual periods, patient had normal menstrual periods starting at age 42, menopause around age 52 ? PHYSICAL EXAMINATION: General: The patient is 61 year old female, well nourished, well hydrated in no acute distress. The patient is oriented to time, place, and person. VITALS: Blood pressure 138/62, pulse 64, weight 88.5 kg (195 lb). Body mass index is 36.25 kg/(m2) Head ? Normocephalic. EOM intact with sclera clear and no icterus noted. Mouth with mucus membranes moist. Neck - supple with no jugular venous distention noted. Trachea is midline. No carotid bruits noted. No thyroid enlargement or thyroid nodules detected. No masses noted. Chest/breast ? no asymmetry of breasts noted, slight erythema to skin medially, no nipple discharge and both nipples everted though left nipple is less everted than right, nodular breast tissue palpated bilaterally, dense specific area of left breast at 10 to 11 oclock near areolar border but not discrete - well healed incisional site Lungs ? clear to auscultation. Normal breath sounds. No rales/rhonchi/wheezing noted. No labored breathing noted, such as retractions. No cough heard. Heart ? normal S1 and S2 auscultated. No rubs/clicks/murmurs noted. Regular rate. Abdomen ? soft and benign. Normal bowel sounds. No abdominal bruits noted. Difficult to determine if any masses or organomegaly due to body habitus. Extremities ? no calf tenderness noted. No pitting edema noted. Skin ? normal skin integrity. Lymph ? no cervical adenopathy detected, no supraclavicular adenopathy detected, no axillary adenopathy detected Neurological ? gait normal, no focal deficits Psych ? calm and appropriate RADIOLOGIC STUDIES: As Noted ?? IMPRESSION: left breast cancer, invasive ductal, ER/RI positive, Her2 negative - bulky adenopathy of left axilla ? PLAN: I have discussed the above with the patient and her . Plan left axillary lymphadenectomy I have counseled the patient as to the risks of the procedure, including but not limited to: infection, bleeding, injury to any blood vessels/nerves, scar tissue, injury to the lymphatics resulting in lymph leak and/or persistant seroma, injury to second intercostal brachial/thoracodorsal/long thoracic nerves and their sequelae, persistent seroma, wound breakdown, wound infections, cosmetic deformity, complications of anesthesia, other perioperative morbidities such as CVA/IA/PE/pneumonia, etc. ? the patient understands. The patient wishes to proceed. Will schedule for left axillary lymphadenectomy surgery at [facility]. I have answered all questions to the patient?s satisfaction and the patient has no further questions. Greater than 50% of this patient encounter was dedicated to face to face discussion with the patient. . Diagnoses: (C50.412, Z17.0) Malignant neoplasm of upper-outer quadrant of left breast in female, estrogen receptor positive (HCC) (primary encounter diagnosis) ?? Referring Provider: KATIE ALEMAN [[id number]] Allergies As of Date: 05/22/2017 Noted Allergy Reaction IV DYE (IODINATED CONTRAST- ORAL *05/21/2006 4 - Hives SHELLFISH 05/21/2006 4 - Hives VICTOZA (LIRAGLUTIDE) 03/30/2017 5 - Intolerance Date Reviewed: 05/22/2017 Reviewed by: Roc Obrien LPN - Fully Assessed Reason for Visit: Post Op [174] Cmt: post op mastectomy Primary Visit Diagnosis:Malignant neoplasm of upper-outer quadrant of left breast in female, estrogen receptor positive (HCC) [C50.412, Z17.0] Prescriptions as of 05/22/2017 Sig: MELATONIN 3 MG TABLET Take 6 mg by mouth daily at b* OTC NUTRITIONAL SUPPLEMENT calm day IBUPROFEN 200 MG TABLET Take 600 mg by mouth twice da* ONDANSETRON HCL 8 MG TABLET Take 1 tablet by mouth every * PREDNISONE 50 MG TABLET Take 1 tablet 13, 7 and 1 baldomero* OTEZLA 30 MG TABLET 30 mg twice daily. METFORMIN ER 500 MG TABLET,EX* Take 1,000 mg by mouth once d* SUMATRIPTAN 100 MG TABLET Take 100 mg by mouth as neede* OMEPRAZOLE 40 MG CAPSULE,CARLYN* Take 40 mg by mouth once adia* [id number]-[id number]-[id number] 5* Take 1 capsule by mouth once * TRAMADOL 50 MG TABLET Take 50 mg by mouth three lizeth* * FLUOXETINE 20 MG CAPSULE Take 20 mg by mouth once adia* * MULTIVITAMIN TABLET Take one(1) tablet daily. * CALCIUM + D 600 MG (1,500 MG)* Take one(1) tablet twice adia* * TYLENOL EXTRA STRENGTH 500 MG* Take two(2) tablets every six* Problem List As Of Date 05/22/2017 Noted Resolved Postmenopausal bleeding [N95.0] INVALID FOR* Ovarian cyst [N83.209] INVALID FOR* Malignant neoplasm of upper-outer quadrant of l*INVALID FOR* 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 Encounter Status:Closed by MD HODAN CHONG on 05/25/17 PROGRESS Observed: 05/21/2017 Status: COMPLETED Source: [place] 9:53 AM [facility] [place] REPOSITORY O ID: [id number] Author: Bonita Zepeda Service: (none) Author Type: Physician Type: Progress Notes Filed: 05/22/2017 10:01 AM Note Text: Radiation Oncology - New Patient/Consult Note PATIENT NAME: Jessica Rodriguez PATIENT REQUESTING PROVIDER: Harpreet Pantoja DO DIAGNOSIS: Stage II, T2N1, invasive ductal carcinoma of the left breast s/p left mastectomy and sentinel node biopsy. It's ER positive (>95%, strong), RI positive (variable, weak, 0-11%), and Her2/bhavani 1+. HPI: 62 year old female who presents with above diagnosis, for an opinion regarding the role of radiation therapy in the management of the patient's disease. Final recommendations will be communicated back to the requesting physician by way of the shared medical record, or letter to requesting physician via US mail. 62 year old woman who had an abnormal screening mammogram on 03/22/17. It showed a new mass in the left breast central to the nipple middle depth. Diagnostic mammogram and US on 03/28/17 confirmed a 3 cm irregular mass in the left breast consistent with carcinoma. There is also axillary adenopathy on US. US guided core needle biopsy of the left breast lesion on 04/05/17 showed grade 3 invasive ductal carcinoma. It's ER positive (>95%, strong), RI positive (variable, weak, 0-11%), and Her2/bhavani 1+. She underwent left breast mastectomy and sentinel node biopsy on 04/20/17. Pathology showed invasive ductal carcinoma measuring 3.5 cm x 3.3 cm x 3 cm. Surgical margin was negative with the closest margin of 1.5 cm from the posterior margin. There was no LVI. It's a grade 3 tumor. Three sentinel nodes were involved with macrometastases measuring upto 3.6 cm. There was focal extranodal invasion upto 0.4 cm. Prophylactic right breast mastectomy was also done and there was no malignancy there. Staging CT chest/abodmen/pelvis and bone scan on 05/09/17 showed no definite evidence of metastasis. There were Left axillary enlarged lymph nodes and A few thyroid nodules. MRI brain on 05/11/17 was negative for metastasis. 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 Menopause in early 50s. HRT for 30 years. Prior radiation therapy, collagen vascular disease, or inflammatory bowel disease: No status: Post-menopausal. PAST SURGICAL HISTORY Procedure Laterality Date - COLONOSCOP W/ OR W/O [facility] SPEC 2000 Colonoscopy - COLONOSCOP W/ OR W/O [facility] SPEC 12/09/2012 Colonoscopy - EGD W/O OR W/BRUSH/WASH 12/09/2012 EGD - EXCIS BREAST LESION Left breast - HYSTEROSCOPY WBX WWO D AND C ANDOR POLYPECTOMY 2011 PMB- polyps - LIGATE FALLOPIAN TUBE - MASTECTOMY, RADICAL Bilateral 2017 - PAST SURGICAL HISTORY OF cyst removed from back - S PORTACATH [id number] 05/08/2017 right sided portacath [place] FAMILY HISTORY Problem Relation Age of Onset - Osteoporosis Mother - Arthritis Mother - GI Mother IBS - Diabetes Father - Heart Father - Lipids Father - Breast Cancer Maternal Grandmother - Prostate Cancer Maternal Grandfather - Osteoporosis Sister - Hypertension Sister Social History Marital status: Spouse name: Niles Years of education: 16 Number of children: 0 Occupational History Occupation Employer Comment [employer]* Social History Main Topics Smoking status: Passive Smoke Exposure - Never Smoker Packs/day: 0.00 Years: 0.00 Types: Cigarettes Smokeless status: Never Used Comment: smokes socially Alcohol use: No Drug use: Yes Special: Marijuana Comment: rarely Sexual activity: Not Currently Partners with: Male control/protection: Tubal Ligation COMPLETE REVIEW OF SYSTEMS: GENERAL: Negative for weight loss, fevers, chills, or night sweats. HEENT: Negative for sudden vision or hearing changes. NECK: Negative for masses in the neck. RESPIRATORY: Negative for cough or shortness of breath. CARDIAC: Negative for chest pain, palpitations, murmurs, or syncopal episodes. GI: Negative for nausea, vomiting, diarrhea, constipation, blood per rectum, or melena. : Negative for dysuria, hematuria, urgency, frequency or incontinence. MUSCULOSKELETAL: Negative for limitations in movement, pain, or swelling. NEURO: Negative for dizziness, headache, weakness or numbness. HEMATOLOGIC: Negative for bleeding or easy bruising. SKIN: Negative for rashes or other skin changes. PHYSICAL EXAM: VS: BP 142/64 Pulse 69 Temp 36.8 ?C (98.2 ?F) (Temporal Artery) Resp 20 Wt 87.5 kg (193 lb) LMP 02/04/2010 SpO2 97% BMI 36.44 kg/m2 KPS: 100 General Appearance: Alert and oriented. No acute distress. HEENT: NCAT. Sclera anicteric. EOMI. Neck: Normal ROM. Chest: No respiratory distress. Lungs clear to auscultation bilaterally. Heart: Regular rate and rhythm. Breasts: s/p bilateral mastectomy. There is no suspicious nodule or skin changes on bilateral chest wall. Abdomen: Soft. Nontender. Nondistended. Musculoskeletal: No edema. Normal ROM in extremities. Neuro: No gross focal deficits. Skin: No rashes noted Lymphatics: No palpable cervical or supraclavicular or axillary adenopathy. RADIOLOGY/LABORATORY DATA: see HPI ASSESSMENT AND PLAN: 62 year old woman with stage II, T2N1, invasive ductal carcinoma of the left breast s/p left mastectomy and sentinel node biopsy. It's ER positive (>95%, strong), RI positive (variable, weak, 0-11%), and Her2/bhavani 1+. She has clinically detectable left axillary lymphadenopathy on ultrasound before surgery. The largest metastasis in the left axilla measured 3.6 cm and all three sentinel nodes were positive with macrometastases. As she had clinically detectable axillary node and three positive macrometastasis nodes with extranodal extension, I believe full axillary node dissection should be considered. After node dissection, I understand Dr. Pantoja plans to give her adjuvant chemotherapy. I recommend radiation treatment after that to improve local/regional control and overall survival. I explained the rationale, benefits, alternative management options and potential complications of radiation treatment to the patient. I will see her again after chemotherapy and will discuss radiation treatment again. Thank you very much for allowing us to participate in her care. Signed by: Bonita Zepeda MD cc: Ruth Clark DO ([facility]) [id number] [facility] [address] [place] [address] Harpreet Pantoja DO [address] [facility] [address] Hodan Chong MD [address] [facility] [address] CNOV Observed: 05/21/2017 Status: COMPLETED Source: [place] 9:30 AM [facility] REPOSITORY Office Visit (RADTWS) JESSICA RODRIGUEZ ([id number]) 1955 F Date Time Provider Department 05/21/17 9:30 AM BONITA ZEPEDA During your visit today, we recorded the following information about you: Temperature Pulse Respiration Blood pressure 98.2 degrees 69/minute 20/minute 142/64 Weight 87.5 kg Nikky Briones RN, RN 05/21/2017 9:53 AM Signed Radiation Therapy - Nursing Note (Consult) PATIENT NAME: Jessica Rodriguez PATIENT May 21, 2017 [facility] FACILITY/LOCATION: [place] Chief Complaint: consult Reason for visit: Consult. Referring physician: Internal provider Dr. Pantoja Subjective Data: no c/o Additional Data Do you want to see a Cable Driller? No Are you interested in information about fertility? No Sexual Activity: Female: postmenopausal Stress Scale: On a scale of 0 to 10, what number best describes how much distress you have experienced in the past week?(0 being no distress and 10 being extreme distress) 3 Social work notified: Pt denied need to see social professionals at this time. Radiation therapy teaching initiated.[facility] external beam radiation therapy handout given. Department phone numbers given ANDamp; patient encouraged to verbalize questions. BP repeated ANDamp; remains elevated. Dr. Zepeda notified. Patient instructed to follow up with PCP within 30 days. SIGNED by: Nikky Briones, RN Bonita Zepeda MD 05/22/2017 10:01 AM Signed Radiation Oncology - New Patient/Consult Note PATIENT NAME: Jessica Rodriguez PATIENT REQUESTING PROVIDER: Harpreet Pantoja DO DIAGNOSIS: Stage II, T2N1, invasive ductal carcinoma of the left breast s/p left mastectomy and sentinel node biopsy. It's ER positive (ANDgt;95%, strong), RI positive (variable, weak, 0-11%), and Her2/bhavani 1+. HPI: 62 year old female who presents with above diagnosis, for an opinion regarding the role of radiation therapy in the management of the patient's disease. Final recommendations will be communicated back to the requesting physician by way of the shared medical record, or letter to requesting physician via US mail. 62 year old woman who had an abnormal screening mammogram on 03/22/17. It showed a new mass in the left breast central to the nipple middle depth. Diagnostic mammogram and US on 03/28/17 confirmed a 3 cm irregular mass in the left breast consistent with carcinoma. There is also axillary adenopathy on US. US guided core needle biopsy of the left breast lesion on 04/05/17 showed grade 3 invasive ductal carcinoma. It's ER positive (ANDgt;95%, strong), RI positive (variable, weak, 0-11%), and Her2/bhavani 1+. She underwent left breast mastectomy and sentinel node biopsy on 04/20/17. Pathology showed invasive ductal carcinoma measuring 3.5 cm x 3.3 cm x 3 cm. Surgical margin was negative with the closest margin of 1.5 cm from the posterior margin. There was no LVI. It's a grade 3 tumor. Three sentinel nodes were involved with macrometastases measuring upto 3.6 cm. There was focal extranodal invasion upto 0.4 cm. Prophylactic right breast mastectomy was also done and there was no malignancy there. Staging CT chest/abodmen/pelvis and bone scan on 05/09/17 showed no definite evidence of metastasis. There were Left axillary enlarged lymph nodes and A few thyroid nodules. MRI brain on 05/11/17 was negative for metastasis. 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 Menopause in early 50s. HRT for 30 years. Prior radiation therapy, collagen vascular disease, or inflammatory bowel disease: No status: Post-menopausal. PAST SURGICAL HISTORY Procedure Laterality Date - COLONOSCOP W/ OR W/O BRSH SPEC 2000 Colonoscopy - COLONOSCOP W/ OR W/O BRSH SPEC 12/09/2012 Colonoscopy - EGD W/O OR W/BRUSH/WASH 12/09/2012 EGD - EXCIS BREAST LESION Left breast - HYSTEROSCOPY WBX WWO D AND C ANDOR POLYPECTOMY 2011 PMB- polyps - LIGATE FALLOPIAN TUBE - MASTECTOMY, RADICAL Bilateral 2017 - PAST SURGICAL HISTORY OF cyst removed from back - S PORTACATH [id number] 05/08/2017 right sided portacath [place] FAMILY HISTORY Problem Relation Age of Onset - Osteoporosis Mother - Arthritis Mother - GI Mother IBS - Diabetes Father - Heart Father - Lipids Father - Breast Cancer Maternal Grandmother - Prostate Cancer Maternal Grandfather - Osteoporosis Sister - Hypertension Sister Social History Marital status: Spouse name: Niles Years of education: 16 Number of children: 0 Occupational History Occupation Employer Comment [employer] Social History Main Topics Smoking status: Passive Smoke Exposure - Never Smoker Packs/day: 0.00 Years: 0.00 Types: Cigarettes Smokeless status: Never Used Comment: smokes socially Alcohol use: No Drug use: Yes Special: Marijuana Comment: rarely Sexual activity: Not Currently Partners with: Male control/protection: Tubal Ligation COMPLETE REVIEW OF SYSTEMS: GENERAL: Negative for weight loss, fevers, chills, or night sweats. HEENT: Negative for sudden vision or hearing changes. NECK: Negative for masses in the neck. RESPIRATORY: Negative for cough or shortness of breath. CARDIAC: Negative for chest pain, palpitations, murmurs, or syncopal episodes. GI: Negative for nausea, vomiting, diarrhea, constipation, blood per rectum, or melena. : Negative for dysuria, hematuria, urgency, frequency or incontinence. MUSCULOSKELETAL: Negative for limitations in movement, pain, or swelling. NEURO: Negative for dizziness, headache, weakness or numbness. HEMATOLOGIC: Negative for bleeding or easy bruising. SKIN: Negative for rashes or other skin changes. PHYSICAL EXAM: VS: BP 142/64 Pulse 69 Temp 36.8 ?C (98.2 ?F) (Temporal Artery) Resp 20 Wt 87.5 kg (193 lb) LMP 02/04/2010 SpO2 97% BMI 36.44 kg/m2 KPS: 100 General Appearance: Alert and oriented. No acute distress. HEENT: NCAT. Sclera anicteric. EOMI. Neck: Normal ROM. Chest: No respiratory distress. Lungs clear to auscultation bilaterally. Heart: Regular rate and rhythm. Breasts: s/p bilateral mastectomy. There is no suspicious nodule or skin changes on bilateral chest wall. Abdomen: Soft. Nontender. Nondistended. Musculoskeletal: No edema. Normal ROM in extremities. Neuro: No gross focal deficits. Skin: No rashes noted Lymphatics: No palpable cervical or supraclavicular or axillary adenopathy. RADIOLOGY/LABORATORY DATA: see HPI ASSESSMENT AND PLAN: 62 year old woman with stage II, T2N1, invasive ductal carcinoma of the left breast s/p left mastectomy and sentinel node biopsy. It's ER positive (ANDgt;95%, strong), RI positive (variable, weak, 0-11%), and Her2/bhavani 1+. She has clinically detectable left axillary lymphadenopathy on ultrasound before surgery. The largest metastasis in the left axilla measured 3.6 cm and all three sentinel nodes were positive with macrometastases. As she had clinically detectable axillary node and three positive macrometastasis nodes with extranodal extension, I believe full axillary node dissection should be considered. After node dissection, I understand Dr. Pantoja plans to give her adjuvant chemotherapy. I recommend radiation treatment after that to improve local/regional control and overall survival. I explained the rationale, benefits, alternative management options and potential complications of radiation treatment to the patient. I will see her again after chemotherapy and will discuss radiation treatment again. Thank you very much for allowing us to participate in her care. Signed by: Bonita Zepeda MD cc: Ruth Clark DO ([facility]) [address] [facility] [address] [place] [address] Harpreet Pantoja DO [address] [facility] [address] Hodan Chong MD [address] [facility] [address] Referring Provider: HARPREET PANTOJA [[id number]] Allergies As of Date: 05/21/2017 Noted Allergy Reaction IV DYE (IODINATED CONTRAST- ORAL *05/21/2006 4 - Hives SHELLFISH 05/21/2006 4 - Hives VICTOZA (LIRAGLUTIDE) 03/30/2017 5 - Intolerance Date Reviewed: 05/21/2017 Reviewed by: Nikky (Rn) MONET Briones - Fully Assessed Reason for Visit: Consult [502] Primary Visit Diagnosis:Malignant neoplasm of upper-outer quadrant of left breast in female, estrogen receptor positive (HCC) [C50.412, Z17.0] Prescriptions as of 05/21/2017 Sig: MELATONIN 3 MG TABLET Take 6 mg by mouth daily at b* OTC NUTRITIONAL SUPPLEMENT calm day IBUPROFEN 200 MG TABLET Take 600 mg by mouth twice da* ONDANSETRON HCL 8 MG TABLET Take 1 tablet by mouth every * PREDNISONE 50 MG TABLET Take 1 tablet 13, 7 and 1 baldomero* OTEZLA 30 MG TABLET 30 mg twice daily. METFORMIN ER 500 MG TABLET,EX* Take 1,000 mg by mouth once d* SUMATRIPTAN 100 MG TABLET Take 100 mg by mouth as neede* OMEPRAZOLE 40 MG CAPSULE,CARLYN* Take 40 mg by mouth once adia* [id number] 5* Take 1 capsule by mouth once * TRAMADOL 50 MG TABLET Take 50 mg by mouth three lizeth* * FLUOXETINE 20 MG CAPSULE Take 20 mg by mouth once adia* * MULTIVITAMIN TABLET Take one(1) tablet daily. * CALCIUM + D 600 MG (1,500 MG)* Take one(1) tablet twice adia* * TYLENOL EXTRA STRENGTH 500 MG* Take two(2) tablets every six* Problem List As Of Date 05/21/2017 Noted Resolved Postmenopausal bleeding [N95.0] INVALID FOR* Ovarian cyst [N83.209] INVALID FOR* Malignant neoplasm of upper-outer quadrant of l*INVALID FOR* 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 Visit Notes: >> Nikky (Rn) MONET Briones Mon May 21, 2017 9:47 AM Status: Signed Radiation Therapy - Nursing Note (Consult) PATIENT NAME: Jessica Rodriguez PATIENT May 21, 2017 [facility] FACILITY/LOCATION: [place] Chief Complaint: consult Reason for visit: Consult. Referring physician: Internal provider Dr. Pantoja Subjective Data: no c/o Additional Data Do you want to see a Cable Driller? No Are you interested in information about fertility? No Sexual Activity: Female: postmenopausal Stress Scale: On a scale of 0 to 10, what number best describes how much distress you have experienced in the past week?(0 being no distress and 10 being extreme distress) 3 Social work notified: Pt denied need to see social professionals at this time. Radiation therapy teaching initiated.[facility] external beam radiation therapy handout given. Department phone numbers given AND patient encouraged to verbalize questions. BP repeated AND remains elevated. Dr. Zepeda notified. Patient instructed to follow up with PCP within 30 days. SIGNED by: Nikky Briones RN Encounter Status:Closed by BONITA ZEPEDA MD on 05/22/17 PROGRESS Observed: 05/16/2017 Status: COMPLETED Source: [place] 10:34 AM [facility] REPOSITORY HNO ID: [id number] Author: Yareli Uriarte (Pa) Service: (none) Author Type: Physician Slasher Tender Type: Progress Notes Filed: 05/16/2017 10:37 AM Note Text: FOLLOW UP VISIT - POST OP NAME: Jessica Castillo [facility] NO.: [id number] DATE OF SERVICE: 05/16/2017 : 1955 REFERRING PHYSICIAN: Ruth Clark DO Jessica is a patient I am following with Dr. Chong for left breast cancer. The patient needed terminal system operator IV access for treatment. Dr. Chong performed a left subclavian portacath on 05/08/17. The patient currently notes no problems. She does note some moderate incisional discomfort and bruising. The port has not yet been utilized, will be accessed next week. VITALS: Last menstrual period 02/04/2010. On examination, the port incision sites are clean and intact with moderate ecchymosis Assessment IMPRESSION: Status post left subclavian port a cath placement PLAN: If the patient notes any problems or signs of wound infections, she should contact me immediately. We discussed the unlikely risks, signs and symptoms of central catheter infection and superficial port pocket infection. If these signs are present, she should contact our office of the oncologist immediately. We discussed that the port should be flushed monthly if not being used regularly. Diagnoses: (Z09) Surgery follow-up examination (primary encounter diagnosis) Return to Clinic: The patient is instructed to follow- up with me as needed. Yareli Uriarte PA-C US THYROID/PARATHYROID Observed: 05/16/2017 Status: F Source: [place] 10:21 AM [facility] REPOSITORY * * *Final Report* * * DATE OF EXAM: May 16 2017 10:21AM [facility] 1048 - US THYROID/PARATHYROID / PROCEDURE REASON: Nontoxic multinodular goiter * * * * Physician Interpretation * * * * ULTRASOUND OF THE THYROID GLAND HISTORY: Nontoxic multinodular goiter TECHNIQUE: Ultrasound of the thyroid gland. Grayscale and color Doppler images. Images were obtained and stored in a permanent archive. COMPARISON: Correlation with chest CT 05/09/2017 RESULT: The right thyroid lobe measures 6.1 x 1.7 x 2 cm. The left thyroid lobe measures 5.9 x 2.1 x 1.7 cm. The thyroid isthmus measures 5 mm in thickness. Mildly heterogeneous parenchyma with multiple nodules. Right-sided nodules: Mixed cystic/solid midpole 11 x 8 x 9 mm. Solid midpole 5 x 4 x 3 mm with coarse calcification. Heterogeneous solid inferior-pole 7 x 4 x 6 mm. Left-sided nodules: Mildly complex cystic midpole 10 x 7 x 12 mm. - IMPRESSION: Findings suggest multinodular goiter with thyroid gland enlargement and multiple bilateral nodules up to 12 mm in size. Printed Circuit Board Panels Developer: ALONZO Transcribe Date/Time: May 17 2017 10:06A Dictated by : ANCELMO COVARRUBIAS MD This examination was interpreted and the report reviewed and electronically signed by: ANCELMO COVARRUBIAS MD on May 17 2017 10:08AM EST [id number] PROGRESS Observed: 05/16/2017 Status: COMPLETED Source: [place] 9:42 AM [facility] REPOSITORY HNO ID: [id number] Author: Hamida Escobar [facility] Service: (none) Author Type: (none) Type: Progress Notes Filed: 05/16/2017 10:21 AM Note Text: Radiology Service Progress Note PATIENT NAME: Jessica Rodriguez DATE OF SERVICE: May 16, 2017 TIME: 9:42 AM PATIENT IDENTITY VERIFICATION COMPLETED USING TWO (2) METHODS: Patient confirmed name verbally and Date of . PATIENT GENDER DATA: Female. status: : No status: NO. PATIENT RELEVANT IMPLANT DATA REVIEWED: Not Applicable RADIOLOGY DEPARTMENT: Ultrasound PERIPHERAL IV DATA: Not applicable SIGNED BY: Hamida Escobar Ethel May 16, 2017 9:42 AM CNOV Observed: 05/16/2017 Status: COMPLETED Source: [place] 9:00 AM [facility] REPOSITORY Office Visit (GENSWS) MICHEALJESSICA Castillo ([id number]) 1955 F Date Time Provider Department 05/16/17 9:00 AM YARELI URIARTE (PA) During your visit today, we recorded the following information about you: Yareli Uriarte PA-C 05/16/2017 10:37 AM Signed FOLLOW UP VISIT - POST OP NAME: Jessica Castillo [facility] CL[facility]IC NO.: [id number] DATE OF SERVICE: 05/16/2017 : 1955 REFERRING PHYSICIAN: Ruth Clark DO Jessica is a patient I am following with Dr. Chong for left breast cancer. The patient needed terminal system operator IV access for treatment. Dr. Chong performed a left subclavian portacath on 05/08/17. The patient currently notes no problems. She does note some moderate incisional discomfort and bruising. The port has not yet been utilized, will be accessed next week. VITALS: Last menstrual period 02/04/2010. On examination, the port incision sites are clean and intact with moderate ecchymosis Assessment IMPRESSION: Status post left subclavian port a cath placement PLAN: If the patient notes any problems or signs of wound infections, she should contact me immediately. We discussed the unlikely risks, signs and symptoms of central catheter infection and superficial port pocket infection. If these signs are present, she should contact our office of the oncologist immediately. We discussed that the port should be flushed monthly if not being used regularly. Diagnoses: (Z09) Surgery follow-up examination (primary encounter diagnosis) Return to Clinic: The patient is instructed to follow- up with me as needed. Yareli Urairte PA-C Referring Provider: HODAN CHONG [[id number]] Allergies As of Date: 05/16/2017 Noted Allergy Reaction IV DYE (IODINATED CONTRAST- ORAL *05/21/2006 4 - Hives SHELLFISH 05/21/2006 4 - Hives VICTOZA (LIRAGLUTIDE) 03/30/2017 5 - Intolerance Date Reviewed: 05/09/2017 Reviewed by: Fanta Craven Ct - Fully Assessed Reason for Visit: Post Op [174] Cmt: Post op port place Primary Visit Diagnosis:Surgery follow-up examination [Z09] Prescriptions as of 05/16/2017 Sig: MELATONIN 3 MG TABLET Take 6 mg by mouth daily at b* OTC NUTRITIONAL SUPPLEMENT calm day IBUPROFEN 200 MG TABLET Take 600 mg by mouth twice da* ONDANSETRON HCL 8 MG TABLET Take 1 tablet by mouth every * PREDNISONE 50 MG TABLET Take 1 tablet 13, 7 and 1 baldomero* OTEZLA 30 MG TABLET 30 mg twice daily. METFORMIN ER 500 MG TABLET,EX* Take 1,000 mg by mouth once d* SUMATRIPTAN 100 MG TABLET Take 100 mg by mouth as neede* OMEPRAZOLE 40 MG CAPSULE,CARLYN* Take 40 mg by mouth once adia* BSNIVEAUHS-LHVDLLO-ULKHFYON 5* Take 1 capsule by mouth once * TRAMADOL 50 MG TABLET Take 50 mg by mouth three lizeth* * FLUOXETINE 20 MG CAPSULE Take 20 mg by mouth once adia* * MULTIVITAMIN TABLET Take one(1) tablet daily. 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 Follow-up and Disposition History Recorded Encounter Status:Closed by YARELI URIARTE PA-C on 05/16/17 MRI BRAIN WO/W Observed: 05/11/2017 Status: F Source: [place] IVCON 1:42 PM [facility] REPOSITORY * * *Final Report* * * DATE OF EXAM: May 11 2017 1:42PM GELACIO 0295 - MRI BRAIN WO/W IVCON / PROCEDURE REASON: multiple diagnoses * * * * Physician Interpretation * * * * EXAMINATION: MRI BRAIN WO/W IVCON HISTORY: Malignant neoplasm of upper-outer quadrant of left female breast. Estrogen receptor positive status (ER+). Secondary and unspecified malignant neoplasm of axilla and upper limb lymph nodes TECHNIQUE: Routine brain MRI protocol without and with contrast including diffusion images. MQ: [id number] Contrast: 17 mL Dotarem IV COMPARISON: None. RESULT: Acute Change: There is no evidence of restricted diffusion to suggest an acute infarct. Hemorrhage: No evidence of prior parenchymal hemorrhage on the gradient echo images. Mass Lesion/ Mass Effect: No evidence of an intracranial mass or extra-axial fluid collection. No abnormal parenchymal or leptomeningeal enhancement is noted following contrast administration. No significant mass effect. Chronic Change: The white matter is within normal limits of signal intensity for age. Parenchyma: No significant volume loss for age. The brain parenchyma is otherwise within normal limits of signal intensity and morphology. Ventricles: Normal caliber and morphology. Skull Base: Hypothalamic and pituitary region are grossly normal. Craniocervical junction is normal. No significant marrow replacement process. Vasculature: Major intracranial arterial structures, and dural venous sinuses show typical flow void, suggesting patency by spin echo criteria. Presumed tiny infundibulum from the proximal left A1 segment. Other: The visualized paranasal sinuses and mastoid air cells are clear. The orbits and extracranial soft tissues are unremarkable. IMPRESSION: No evidence of enhancing intracranial lesion to suggest metastasis. Printed Circuit Board Panels Developer: PSCB Transcribe Date/Time: May 11 2017 1:48P Dictated by : LENY CEJA MD This examination was interpreted and the report reviewed and electronically signed by: LENY CEJA MD on May 11 2017 2:02PM EST [id number] PROGRESS Observed: 05/11/2017 Status: COMPLETED Source: [place] 1:38 PM [facility] REPOSITORY HNO ID: [id number] Author: Noris Reza Rt Service: (none) Author Type: (none) Type: Progress Notes Filed: 05/11/2017 1:40 PM Note Text: Radiology Service Progress Note PATIENT NAME: Jsesica Rodriguez DATE OF SERVICE: May 11, 2017 TIME: 1:39 PM PATIENT IDENTITY VERIFICATION COMPLETED USING TWO (2) METHODS: Patient confirmed name verbally and Date of . PATIENT GENDER DATA: Female. status: : No status: NO. PATIENT RELEVANT IMPLANT DATA REVIEWED: Yes CONTRAST INDUCED NEPHROPATHY RISK FACTORS: Patient age > 60 years CREATININE: Creatinine Date Value Ref Range Status 05/07/2017 0.70 0.58 - 0.96 mg/dL Final eGFR-All Other Races Date Value Ref Range Status 05/07/2017 >60 . Final Comment: eGFR (Estimated GFR) Units of measure: mL/min/1.73 meters squared eGFR is derived from the reexpressed MDRD Study equation using the following parameters: serum creatinine, age, gender and race. The creatinine assay has been calibrated to be traceable to IDMS. An eGFR <60 mL/min/1.73m2 for >3 months is consistent with chronic kidney disease. Refer to KDOQI guidelines for clinical interpretation. In patients with unstable renal function, e.g. those with acute kidney injury, the eGFR may not accurately reflect actual GFR. eGFR- Date Value Ref Range Status 05/07/2017 >60 Final P.O.C.T. RESULTS: POC done: Yes, See Lab Tab May 11, 2017 RADIOLOGIST NOTIFIED?: No ALLERGIES: Reviewed and unchanged CONTRAST ALLERGY: NO. PERIPHERAL IV ACCESS: Ambulatory: IV type: A peripheral IV was started in the Right antecubital site with a Angio cath: 22 gauge., Site assessment: Clean,Dry and Intact, Site disposition Discontinued RADIOLOGY DEPARTMENT: MR; Exam(s) Completed: Head: Routine Brain SIGNED BY: Noris Otero May 11, 2017 1:39 PM NM BONE WHOLE BODY Observed: 05/09/2017 Status: F Source: [place] 4:35 PM [facility] [place] REPOSITORY * * *Final Report* * * DATE OF EXAM: May 09 2017 4:35PM RONAL 0014 - NM BONE WHOLE BODY / PROCEDURE REASON: multiple diagnoses * * * * Physician Interpretation * * * * WHOLE BODY BONE SCAN CLINICAL HISTORY: Malignant neoplasm of left breast. TECHNIQUE: 22.2 mCi technetium 99m MDP IV. Whole body imaging was followed 4-6 hour after injection. COMPARISON: None CORRELATION: None. RESULT: There is no definite evidence of increased or decreased tracer uptake to suggest osseous metastatic disease on this examination. Increased uptake is identified in the shoulders, sternoclavicular joints, lumbar region, knees and feet, most consistent with degenerative change. If clinically indicated, correlate with radiographic imaging. IMPRESSION: 1. OSSEOUS METASTATIC DISEASE IS NOT SUSPECTED. 2. LIKELY ARTHRITIC CHANGES, DESCRIBED ABOVE. Printed Circuit Board Panels Developer: ALONZO Transcribe Date/Time: May 09 2017 5:17P Dictated by : LONNY ARIAS MD This examination was interpreted and the report reviewed and electronically signed by: LONNY ARIAS MD on May 09 2017 5:18PM EST [id number] PROGRESS Observed: 05/09/2017 Status: COMPLETED Source: [place] 4:06 PM [facility] REPOSITORY O ID: [id number] Author: Fanta Craven Ct Service: (none) Author Type: (none) Type: Progress Notes Filed: 05/09/2017 4:07 PM Note Text: Radiology Service Progress Note PATIENT NAME: Jessica Rodriguez DATE OF SERVICE: May 09, 2017 TIME: 4:06 PM PATIENT IDENTITY VERIFICATION COMPLETED USING TWO (2) METHODS: Patient confirmed name verbally and Date of . PATIENT GENDER DATA: Female. status: : No status: NO. PATIENT RELEVANT IMPLANT DATA REVIEWED: Not Applicable CONTRAST INDUCED NEPHROPATHY RISK FACTORS: Patient age > 60 years CREATININE: Creatinine Date Value Ref Range Status 05/07/2017 0.70 0.58 - 0.96 mg/dL Final eGFR-All Other Races Date Value Ref Range Status 05/07/2017 >60 . Final Comment: eGFR (Estimated GFR) Units of measure: mL/min/1.73 meters squared eGFR is derived from the reexpressed MDRD Study equation using the following parameters: serum creatinine, age, gender and race. The creatinine assay has been calibrated to be traceable to IDMS. An eGFR <60 mL/min/1.73m2 for >3 months is consistent with chronic kidney disease. Refer to KDOQI guidelines for clinical interpretation. In patients with unstable renal function, e.g. those with acute kidney injury, the eGFR may not accurately reflect actual GFR. eGFR- Date Value Ref Range Status 05/07/2017 >60 Final P.O.C.T. RESULTS: POC done: Yes, See Lab Tab May 09, 2017 RADIOLOGIST NOTIFIED?: No ALLERGIES: Reviewed and unchanged CONTRAST ALLERGY: YES PT PREMEDICATED PER [facility] PROTOCOL. PERIPHERAL IV ACCESS: Ambulatory: IV type: A peripheral IV was started in the Left antecubital site with a Angio cath: 22 gauge., Site assessment: Clean,Dry and Intact, Site disposition Discontinued RADIOLOGY DEPARTMENT: CT; Exam(s) Completed: Chest Abdomen Pelvis SIGNED BY: Fanta Vanessa May 09, 2017 4:06 PM PROGRESS Observed: 05/09/2017 Status: COMPLETED Source: [place] 4:04 PM [facility] REPOSITORY [facility] ID: [id number] Author: Fanta Vanessa Service: (none) Author Type: (none) Type: Progress Notes Filed: 05/09/2017 4:05 PM Note Text: Radiology Service Progress Note PATIENT NAME: Jessica Rodriguez DATE OF SERVICE: May 09, 2017 TIME: 4:04 PM PATIENT IDENTITY VERIFICATION COMPLETED USING TWO (2) METHODS: Patient confirmed name verbally and Date of . PATIENT GENDER DATA: Female. status: : No status: NO. PATIENT RELEVANT IMPLANT DATA REVIEWED: Not Applicable CONTRAST INDUCED NEPHROPATHY RISK FACTORS: Patient age > 60 years CREATININE: Creatinine Date Value Ref Range Status 05/07/2017 0.70 0.58 - 0.96 mg/dL Final eGFR-All Other Races Date Value Ref Range Status 05/07/2017 >60 . Final Comment: eGFR (Estimated GFR) Units of measure: mL/min/1.73 meters squared eGFR is derived from the reexpressed MDRD Study equation using the following parameters: serum creatinine, age, gender and race. The creatinine assay has been calibrated to be traceable to IDMS. An eGFR <60 mL/min/1.73m2 for >3 months is consistent with chronic kidney disease. Refer to KDOQI guidelines for clinical interpretation. In patients with unstable renal function, e.g. those with acute kidney injury, the eGFR may not accurately reflect actual GFR. eGFR- Date Value Ref Range Status 05/07/2017 >60 Final P.O.C.T. RESULTS: POC done: Yes, See Lab Tab May 09, 2017 RADIOLOGIST NOTIFIED?: No ALLERGIES: Reviewed and unchanged CONTRAST ALLERGY: NO. PERIPHERAL IV ACCESS: POWER PORT ACCESSED BY [place] RADIOLOGY DEPARTMENT: CT; Exam(s) Completed: Chest Abdomen Pelvis SIGNED BY: Fanta Craven Ct May 09, 2017 4:[address] ABD/PEL W IVCON Observed: 05/09/2017 Status: F Source: [place] 2:54 PM [facility] REPOSITORY * * *Final Report* * * DATE OF EXAM: May 09 2017 2:54PM [facility] 0530 - CT ABD/PEL W IVCON / PROCEDURE REASON: multiple diagnoses * * * * Physician Interpretation * * * * EXAMINATION: CT ABDOMEN AND PELVIS WITH IV CONTRAST CLINICAL HISTORY: pT2 (3.5 cm; grade 3; no LVI) pN1a (3 of 3 SLNs) MX ER/RI positive, HER2 negative invasive ductal carcinoma the left breast. TECHNIQUE: CT of the abdomen and pelvis was performed using standard technique, scanning from just above the dome of the diaphragm to the symphysis pubis. MQ: CTAP_3 Contrast: IV: 145 ml of Omnipaque 300 Oral: 50 ml of 50ML Omnipaque [address] Radiation dose: Integrated Dose-length product (DLP) for this visit = 1396 mGy*cm. CT Dose Reduction Employed: Automated exposure control (AEC) COMPARISON: None. RESULT: Liver: No mass. Biliary: No bile duct dilation. Spleen: No mass. No splenomegaly. Pancreas: No mass or duct dilation. Adrenals: No mass. Kidneys: * Bilateral small stones less than 3 mm in size without * No mass GI tract: No dilation or wall thickening. Lymph nodes: No abdominal or pelvic lymphadenopathy. Mesentery/Peritoneum: No ascites or mass. Retroperitoneum: No mass. Vasculature: The celiac axis and SMA are patent. The portal vein and branches, splenic vein, SMV, and hepatic veins are patent. Arterial atherosclerotic disease without aneurysm. Pelvis: No mass, ascites or fluid collection. Bilateral tubal ligation Bones/Soft Tissues: No neoplastic bone disease Lower thorax: A chest CT performed will be reported separately. IMPRESSION: NO METASTATIC DISEASE Printed Circuit Board Panels Developer: ALONZO Transcribe Date/Time: May 11 2017 1:09P Dictated by : BRISSA HWANG MD This examination was interpreted and the report reviewed and electronically signed by: BRISSA HWANG MD on May 11 2017 1:14PM EST [id number] CT CHEST W IVCON Observed: 05/09/2017 Status: F Source: [place] 2:54 PM [facility] REPOSITORY * * *Final Report* * * DATE OF EXAM: May 09 2017 2:54PM [facility] 0539 - CT CHEST W IVCON / PROCEDURE REASON: multiple diagnoses * * * * Physician Interpretation * * * * EXAMINATION: CHEST CT WITH CONTRAST Indication: Malignant neoplasm of upper-outer quadrant of left female breast Estrogen receptor positive status (ER+) Secondary and unspecified malignant neoplasm of axilla and upper limb lymph nodes Technique: Spiral CT acquisition of the chest from the thoracic inlet to the upper abdomen following IV contrast. MQ: CTCW_4 Contrast: 145 mL Omnipaque [address] Dose-Length Product: 1396 mGy*cm CT Dose Reduction Employed: Automated exposure control (AEC) Comparison: None. RESULT: Limitations: None. Lines, tubes, and devices: There is a right chest port catheter, with tip extending to the lower SVC/cavoatrial junction. Lung parenchyma and pleura: The central airways are patent. There are parenchymal bands in the bilateral lower lobes, likely representing subsegmental atelectases. The lungs are otherwise clear of consolidative opacities. No suspicious pulmonary nodules. No masses. No pleural effusions or pneumothorax. Thoracic inlet, heart, and mediastinum: There are multiple solid nodules, with the largest one measuring 1.2 cm. A focal calcification also present in the right thyroid lobe. No supraclavicular adenopathy. There are a few mildly enlarged left axillary lymph nodes. No lymphadenopathy demonstrated in the mediastinum and bilateral willian. The thoracic aorta, central pulmonary arteries and cardiac chambers are within normal limits. No pleural effusion/thickening noted. There is common origin of the brachiocephalic and left common carotid arteries, a normal anatomic variant. There is a small hiatal hernia. Bones and soft tissues: Multiple fluid collections in the anterior chest wall soft tissue. The spine shows degenerative changes. No lytic osseous lesions identified. Upper abdomen: A dedicated CT abdomen and pelvis was performed concurrently and has been reported separately. IMPRESSION: No suspicious pulmonary nodules or mediastinal/hilar adenopathy. Left axillary enlarged lymph nodes. Multiple fluid collections in the anterior chest wall soft tissue; please clinically correlate. A few thyroid nodules as described above. Consider further evaluation with a dedicated thyroid ultrasound. Printed Circuit Board Panels Developer: PSCB Transcribe Date/Time: May 11 2017 4:07P Dictated by : RAYNA FOLEY MD This examination was interpreted and the report reviewed and electronically signed by: RAYNA FOLEY MD on May 11 2017 6:11PM EST [id number] PROGRESS Observed: 05/09/2017 Status: COMPLETED Source: [place] 12:20 PM [facility] REPOSITORY HNO ID: [id number] Author: Candace Landrum Service: (none) Author Type: (none) Type: Progress Notes Filed: 05/09/2017 3:53 PM Note Text: RADIOLOGY SERVICE PROGRESS NOTE SERVICE DATE: 05/09/2017 SERVICE TIME: 3:52 PM PATIENT IDENTITY VERIFICATION COMPLETED USING TWO (2) METHODS: Patient confirmed name and Date of verbally. PATIENT GENDER DATA: .female : No ALLERGIES: Reviewed and unchanged MEDICATIONS REVIEWED: Yes PATIENT RELEVANT IMPLANT DATA REVIEWED: Not Applicable CREATININE: Creatinine Date Value Ref Range Status 05/07/2017 0.70 0.58 - 0.96 mg/dL Final eGFR-All Other Races Date Value Ref Range Status 05/07/2017 >60 . Final Comment: eGFR (Estimated GFR) Units of measure: mL/min/1.73 meters squared eGFR is derived from the reexpressed MDRD Study equation using the following parameters: serum creatinine, age, gender and race. The creatinine assay has been calibrated to be traceable to IDMS. An eGFR <60 mL/min/1.73m2 for >3 months is consistent with chronic kidney disease. Refer to KDOQI guidelines for clinical interpretation. In patients with unstable renal function, e.g. those with acute kidney injury, the eGFR may not accurately reflect actual GFR. eGFR- Date Value Ref Range Status 05/07/2017 >60 Final P.O.C.T. RESULTS: N/A May 09, [address] PERFORMED: No IV SITE: Ambulatory: A peripheral IV was started in the Left antecubital site with a Angio cath: 22 gauge. POST EXAM PIV STATUS: Left in for next appointment. PROCEDURE TYPE: NM INJECT: Whole Body Bone Scan. 22.2 mCi Tc99m MDP. No other medications given.. ADMINISTRATION TIME: 12:30 PATIENT DISCHARGED TO: Ambulatory patient, left NM department area. A Diagnostic radioactive procedure has taken place, with no further precautions necessary other than routine body substance precautions. More information regarding radiation safety can be found using this link: [email or web address] SIGNATURE: Candace Birdpost PATIENT NAME: Jessica Rodriguez DATE: May 09, 2017 TIME: 3:52 PM PAGER/CONTACT #: ANES POST Observed: 05/08/2017 Status: COMPLETED Source: [place] 12:49 PM [facility] REPOSITORY O ID: [id number] Author: Ashu Garg Service: (none) Author Type: Physician Type: Anesthesia PostOp Filed: 05/08/2017 1:40 PM Note Text: POST ANESTHESIA EVALUATION NOTE SERVICE DATE: 05/08/2017 SERVICE TIME: 123 : 1955 Vitals: 05/08/17 0900 05/08/17 1210 Temp: 36.1 ?C (97 ?F) 36.5 ?C (97.7 ?F) 05/08/17 1210 05/08/17 1215 05/08/17 1220 05/08/17 1230 BP: (!) 136/49 128/52 133/54 132/53 05/08/17 1210 05/08/17 1215 05/08/17 1220 05/08/17 1230 Pulse: 68 70 63 64 05/08/17 1210 05/08/17 1215 05/08/17 1220 05/08/17 1230 Resp: 16 16 18 18 05/08/17 1210 05/08/17 1215 05/08/17 1220 05/08/17 1230 SpO2: 97% 96% 97% 100% Validated Vital Signs: Yes POST ANES STATUS: No apparent anesthetic complications. The patient is appropriately hydrated with stable respiratory and cardiovascular status. Patient has safe and adequate airway control. The patient has appropriate pain relief and no significant post operative nausea or vomiting. The patient has achieved baseline mental status. Further assessment by Anesthesia Service: None Other Remarks: SIGNATURE: Ashu Garg MD PATIENT NAME: Jessica Rodriguez DATE: May 08, 2017 TIME: 1:39 PM PAGER/CONTACT #: none NURSING PROG Observed: 05/08/2017 Status: COMPLETED Source: [place] 12:49 PM [facility] [place] REPOSITORY HNO ID: [id number] Author: Sharla (Rn) MONET Yusuf Service: Gastroenterology Author Type: Registered Nurse Type: Nursing Progress Note Filed: 05/09/2017 12:04 PM Note Text: Post-op call completed. Pt states that there is bruising around the port and tender to the touch. Pt denies swelling or bleeding at incision site. Pt states pain is around a 1 on a 0-10 pain scale. Pt denies any nausea or vomiting. CHEST 1 VIEW Observed: 05/08/2017 Status: F [facility]: [facility] 12:26 PM [facility] REPOSITORY Performed at [facility] APPROVED BY: Jair Travis MD EXAMINATION: CHEST RADIOGRAPH (SINGLE VIEW AP OR PA) Clinical History: The patient is a 62-year-old female with recent chest port placement. M: XC1_4 Comparison: None RESULT: Lines, tubes, and devices: The chest port overlies the right side of the chest and the tip of the catheter is in the superior vena cava distally. Lungs and pleura: No consolidation. No lung mass. No pleural effusion. There is no pneumothorax. Cardiomediastinal silhouette: Normal cardiomediastinal silhouette. Other: No other significant abnormality is identified. IMPRESSION: The new chest port appears to be in adequate position with no evidence of pneumothorax. No other active disease involves the rest of the chest. FLUORO UP TO 1 HOUR Observed: 05/08/2017 Status: F [facility] 12:00 PM [facility] REPOSITORY Performed at [facility] APPROVED BY: Guy Arnold MD EXAM TITLE: FLUORO UP TO 1 HOUR DATE: 05/08/2017 11:00 INDICATION: Fluoroscopy for Port-A-Cath placement. COMPARISON: None. 13 seconds of fluoroscopic time were utilized for placement of catheter. No images were obtained. BRIEF OP NOT Observed: 05/08/2017 Status: COMPLETED Source: [place] 11:52 AM [facility] REPOSITORY HNO ID: [id number] Author: Hodan Chong Service: (none) Author Type: Physician Type: Brief Op Note Filed: 05/08/2017 11:54 AM Note Text: BRIEF OPERATIVE NOTE SURGERY DATE: 05/08/2017 Incision/Procedure Start Time: 11:23 Incision Close/Procedure End Time: 11:58 Surgeon(s)/Proceduralist(s) and Slasher Tender(s): Graf JUSTYNA Chong car rental sales assistant Procedures: Placement of right sided portacath Anesthesia: MAC Findings: normal right subclavian vein to SVC Estimated Blood Loss: < 5 ml mls Specimens: None Complications: None Preop Diagnosis: left breast cancer Postop Diagnosis: same SIGNATURE: Hodan Chong MD PATIENT NAME: Jessica Rodriguez DATE: May 08, 2017 TIME: 11:52 AM PAGER/CONTACT #: ANES PREOP Observed: 05/08/2017 Status: COMPLETED Source: [place] 10:42 AM [facility] REPOSITORY [facility]NO ID: [id number] Author: Ashu Garg Service: (none) Author Type: Physician Type: Anesthesia PreOp Filed: 05/08/2017 10:45 AM Note Text: ANESTHESIOLOGY PREOPERATIVE ASSESSMENT SERVICE DATE: 05/08/2017 SERVICE TIME: now : 1955 Surgeon(s): Hodan Chong Procedure(s) (LRB): INSERTION CATHETER PORT-A-CATH WITH C-ARM (Pending) Estimated body mass index is 35.68 kg/(m2) as calculated from the following: Height as of 05/03/17: 155 cm (5' 1.02). Weight as of 05/07/17: 85.7 kg (189 lb). MOST RECENT HEMATOCRIT AND POTASSIUM RESULTS: Hematocrit 41.3 01/08/2012 ANES DOS/PREOP NOTE: Vitals: 05/08/17 0900 BP: 153/63 Pulse: 60 Resp: 18 Temp: 36.1 ?C (97 ?F) TempSrc: Temporal Artery SpO2: 99% ACTIVE PROBLEM LIST Postmenopausal Bleeding Ovarian Cyst Malignant Neoplasm of Upper-Outer Quadrant of Left Breast in Female, Estrogen Receptor Positive (Hcc) Metastatic Cancer to Axillary Lymph Nodes (Hcc) Bilateral Malignant Neoplasm of Upper Outer Quadrant of Breast in Female (Hcc) PAST MEDICAL HISTORY Diagnosis Date - Breast cancer metastasized to axillary lymph node, left (HCC) 03/22/2017 - Diverticulosis of colon with hemorrhage - Personal history of colonic polyps - PMH - PAST MEDICAL HISTORY OF SPASTIC COLON - Psoriatic arthritis (HCC) - Tension headache - Type II or unspecified type diabetes mellitus without mention of complication, not stated as uncontrolled PAST SURGICAL HISTORY Procedure Laterality Date - COLONOSCOP W/ OR W/O BRSH SPEC 2000 Colonoscopy - COLONOSCOP W/ OR W/O BRSH SPEC 12/09/2012 Colonoscopy - EGD W/O OR W/BRUSH/WASH 12/09/2012 EGD - EXCIS BREAST LESION Left breast - HYSTEROSCOPY WBX WWO D AND C ANDOR POLYPECTOMY 2011 PMB- polyps - LIGATE FALLOPIAN TUBE - MASTECTOMY, RADICAL Bilateral 2017 - PAST SURGICAL HISTORY OF cyst removed from back FAMILY HISTORY Problem Relation Age of Onset - Osteoporosis Mother - Arthritis Mother - GI Mother IBS - Diabetes Father - Heart Father - Lipids Father - Breast Cancer Maternal Grandmother - Prostate Cancer Maternal Grandfather - Osteoporosis Sister - Hypertension Sister Social History: Social History Substance Use Topics - Smoking status: Passive Smoke Exposure - Never Smoker - Smokeless tobacco: Never Used Comment: smokes socially - Alcohol use No No current facility-administered medications on file prior to encounter. Current Outpatient Prescriptions on File Prior to Encounter: ondansetron (ZOFRAN) 8 mg tablet Take 1 tablet by mouth every 8 hours as needed for Nausea/Vomiting. predniSONE (DELTASONE) 50 mg tab Take 1 tablet 13, 7 and [address] scan. OTEZLA 30 mg tablet 30 mg twice daily. metFORMIN ER (GLUCOPHAGE XR) 500 mg 24 hr tablet Take 1,000 mg by mouth once daily. Omeprazole (PRILOSEC) 40 mg capsule Take 40 mg by mouth once daily. aorwjpg-pftlixpu-drjyswucjj capsule Take 1 capsule by mouth once daily as needed. PRN fluoxetine 20 mg ORAL capsule Take 20 mg by mouth once daily. MULTIVITAMIN TAB Take one(1) tablet daily. CALCIUM + D 600 MG-200 UNIT TAB Take one(1) tablet twice daily. TYLENOL EXTRA STRENGTH 500 MG TAB Take two(2) tablets every six(6) hours as needed for pain. SUMAtriptan (IMITREX) 100 mg tablet Take 100 mg by mouth as needed. traMADol 50 mg tablet Take 50 mg by mouth three times daily as needed. Current Facility-Administered Medications: lidocaine 10 mg/mL (1 %) 1-2 mg injection (XYLOCAINE) 0.1- 0.2 mL INTRADERMAL PRN Hodan Chong lactated ringers infusion 5-30 mL/hr INTRAVENOUS CONTINUOUS Hodan Chong Last Rate: 30 mL/hr at 05/08/17942 30 mL/hr at 05/08/17942 Allergies: ALLERGIES Allergen Reactions - Iv Dye [Iodinated C* Hives - Shellfish Hives - Victoza [Liraglutid* Intolerance REVIEW OF SYSTEMS: REVIEW OF SYSTEMS: As stated in Active Problem List/ Past Medical History ANESTHESIOLOGY REVIEW: Airway Assessment: MP 2; Neck ROM: Full ROM without neurologic symptoms; Airway Evaluation: No significant abnormalities Symptoms of Sleep Apnea: None Intubation History: No previous history of difficult intubation Dentition: Teeth intact ADDITIONAL PHYSICAL EXAM: Lungs: Patient health status unchanged since recent history and physical. See history and physical for exam findings. Cardiac: Patient health status unchanged since recent history and physical. See history and physical for exam findings. Additional Pertinent Findings: N/A ADVERSE ANESTHESIA EVENT: No history of adverse event FAMILY HIISTORY OF ANESTHESIA: No known issues BLOOD PRODUCTS: Not anticipated for this procedure OTHER MEDICAL PROBLEMS: None I have interviewed and examined the patient. I have reviewed the medical record and/or the pre-anesthesia evaluation, pertinent labs, and test results. Significant changes in the patient's condition since the History and Physical, not otherwise documented in primary service progress notes: No Anesthetic risks, benefits, alternatives, personnel and consent discussed: Yes ANES REVIEW: This contains information obtained greater than 48 hours prior to the Surgery/Procedure. See Day of Surgery Note SIGNATURE: Ashu Garg MD PATIENT NAME: Jessica Rodriguez DATE: May 08, 2017 TIME: 10:42 AM PAGER/CONTACT #: none GLUCOSE METER Collected: 05/08/2017 Status: F [facility] 9:07 AM HEALTH SYSTEM REPOSITORY TYPE CODE TESTS RESULT OUT OF REFERENCE UNITS RANGE LAB LGLUB(LOINC 70-99 mg/dL ) High Glucose Meter 115 Result Comment: RN NOTIFIED Testing performed at [address] [address] Performed By: #### LGLMT #### [facility] [address] [place], [place] [address] OPERATIVE NO Observed: 05/08/2017 Status: COMPLETED Source: [place] 12:00 AM [facility] REPOSITORY HNO ID: [id number] Author: Hodan Chong Service: (none) Author Type: Physician Type: Operative Report Filed: 05/10/2017 2:29 PM Note Text: [facility] - Operative Report SURGEON: Hodan Chong MD PATIENT NAME: JESSICA RODRIGUEZ CSN: [id number] DATE OF SURGERY: 05/08/2017 DATE OF : 1955 SEX/AGE: F/62 PATIENT TYPE: A HOSP SVC: GEN LOCATION: [facility][NOTE 3] DATE OF SURGERY: 05/08/2017 SURGEON: Hodan Chong MD PROCEDURE PERFORMED: Placement of a permanent indwelling tunneled catheter in the right subclavian vein with subcutaneous port. Use of fluoroscopy to insert catheter PREOPERATIVE DIAGNOSIS: Left breast cancer. POSTOPERATIVE DIAGNOSIS: Left breast cancer. ANESTHESIA: Local MAC. ZINC PLATE CUTTER: Yareli Uriarte, she is a PA assisting me as there was no surgery residents available. SPECIMEN: None. INDICATIONS: Jessica Rodriguez is a 62-year-old white female, who presents with left breast cancer with positive lymph nodes and she requires chemotherapy. She therefore requires access with the Port-A-Cath. She has been counseled on the risks of procedure including, but not limited to, infection, bleeding, injury to any blood vessels, nerves, inability to place a Port-A-Cath, injury to the lungs such as pneumothorax and/or hemothorax, infection of the port, thrombosis of the blood vessels, nonfunctioning of the port, complications, anesthesia, wound infections, cosmetic deformity, scar tissue, etc. The patient understands and agrees to proceed. DESCRIPTION OF PROCEDURE: After informed consent was given, the patient was brought to the operating room, placed in supine position. Appropriate time-out protocol was followed in the preprocedure area as well as the operating room. She was then placed under anesthesia by the anesthesia provider. The upper chest and neck area was then prepped with sterile surgical skin preparation. Appropriate sterile surgical drapes were placed. The skin and subcutaneous tissues at the proposed insertion site were then infiltrated with local anesthetic. The patient was placed in steep Trendelenburg position. Using needle trocar attached to a 10 mL syringe, the patient's right subclavian vein was accessed. There was good aspiration of venous blood. A wire was then placed into the needle trocar and this was visualized and directed under fluoroscopy. The patient was placed in the normal position. Once the wire was noted to be in the proper position in the superior vena cava, then a small skin michael was made at the wire entrance site. The dilator and sheath were then inserted over the wire using the Seldinger technique, and this was once again visualized directly under fluoroscopy. Once this was done, then the wire and the dilator were removed. The catheter was then inserted into the introducer sheath and once again this was visualized and directed under fluoroscopy. The tip of the catheter was then directed in the superior vena cava just outside the heart. The introducer sheath was then removed according to manufacture's guidelines. The catheter had been aspirated to check its proper position. There was good aspiration of blood and was then flushed with normal saline. A skin incision was then made inferior to the catheter insertion site for the subcutaneous pocket. A blunt dissection was then used to create the subcutaneous pocket. Any hemorrhage adequately controlled with electrocautery. The port was then fitted into the subcutaneous pocket and was adequate size. It was then sutured in 3 locations to the subcutaneous tissues. The catheter was then tunneled to the pocket using the tunneling device. It was then attached to the port according to manufacture's guidelines. The port was then accessed. There was good aspiration of blood and it was then flushed with normal saline. The sub dermis was then reapproximated using 2-0 Vicryl suture in interrupted simple fashion. The skin incisions were all closed with 4- 0 Monocryl in a running subcuticular fashion. Benzoin, Steri-Strips were used to reinforce skin closure and proper sterile dressings were applied. The port was then once again accessed. There was good aspiration of blood. It was then flushed with heparinized saline. The patient tolerated procedure well. Postprocedure chest x-ray was done in the operating room. She was then brought to the recovery room in stable condition. SPECIMEN: None. ESTIMATED BLOOD LOSS: Less than 5 mL. IMPLANT: PowerPort MRI implantable port. The lot number was [id number]. Hodan Chong MD LW:modrobert /[id number] HISTORY PHYSICAL Observed: 05/07/2017 Status: COMPLETED Source: [place] 8:26 PM [facility] REPOSITORY HNO ID: [id number] Author: Hodan Chong Service: (none) Author Type: Physician Type: HANDP Filed: 05/07/2017 8:27 PM Note Text: Jessica is s/p bilateral mastectomies 04/20/17 - diagnosis of left breast cancer. Three lymph nodes were positive for breast cancer. She has been evaluated by hem/onc and is a candidate for chemotherapy. Port placement requested. ? PAST MEDICAL HISTORY - Diverticulosis of colon with hemorrhage ? - Personal history of colonic polyps ? - PMH - PAST MEDICAL HISTORY OF ? ? SPASTIC COLON - Psoriatic arthritis (HCC) ? - Tension headache ? - Type II or unspecified type diabetes mellitus without mention of complication, not stated as uncontrolled ? ? PAST SURGICAL HISTORY - COLONOSCOP W/ OR W/O [facility] SPEC ? 2000 ? Colonoscopy - COLONOSCOP W/ OR W/O [facility] SPEC ? 12/09/2012 ? Colonoscopy - EGD W/O OR W/BRUSH/WASH ? 12/09/2012 ? EGD - EXCIS BREAST LESION ? ? ? Left breast - HYSTEROSCOPY WBX WWO D AND C ANDOR POLYPECTOMY ? 2011 ? PMB- polyps - LIGATE FALLOPIAN TUBE ? ? - PAST SURGICAL HISTORY OF ? ? ? cyst removed from back ? PAST INJURIES Denies head injuries, denies history of fractures ? Current Outpatient Prescriptions: OTEZLA 30 mg tablet ? AFLURIA QUAD [id number], PF, 60 mcg/0.5 mL syrg To be injected by Pharmacist metFORMIN ER (GLUCOPHAGE XR) 500 mg 24 hr tablet Take 1,000 mg by mouth once daily. SUMAtriptan (IMITREX) 100 mg tablet Take 100 mg by mouth as needed. Omeprazole (PRILOSEC) 40 mg capsule Take 40 mg by mouth once daily. methotrexate 2.5 mg tablet Take 2.5 mg by mouth as directed. Pt is taking 6 tablets, once weekly hydroxychloroquine (PLAQUENIL) 200 mg tablet Take 200 mg by mouth twice daily. LEUCOVORIN CALCIUM ORAL Take 5 mg by mouth once each week. Pt takes this the day after taking methotrexate. vnoxuyp-nnfbyyxg-xumfohlvlv capsule Take 1 capsule by mouth once daily as needed. traMADol 50 mg tablet Take 50 mg by mouth three times daily as needed. eletriptan (RELPAX) 20 mg tablet Take 20 mg by mouth as needed. may repeat in 2 hours if necessary saxagliptin-metFORMIN (KOMBIGLYZE XR) 5-1,000 mg TM24 Take by mouth. Flaxseed Oil 1,000 mg ORAL Cap Take 1 capsule by mouth once daily. simvastatin (ZOCOR) 20 mg ORAL tablet Take 1 tablet by mouth daily at bedtime. omeprazole (PRILOSEC) 20 mg ORAL capsule Take 1 capsule by mouth once daily. LORazepam 0.5 mg ORAL Tab Take 0.5 mg by mouth once daily as needed. fluoxetine 20 mg ORAL capsule Take 20 mg by mouth once daily. gluc perez/chondro perez a/vit c/mn(GLUCOSAMINE CHONDROITIN MAXIMUM STRENGTH 500 MG-400 MG CAP) Take one(1) capsules three(3) times daily.. naproxen sodium(ALEVE 220 MG TAB) PRN MULTIVITAMIN TAB Take one(1) tablet daily. CALCIUM + D 600 MG-200 UNIT TAB Take one(1) tablet twice daily. TYLENOL EXTRA STRENGTH 500 MG TAB Take two(2) tablets every six(6) hours as needed for pain. ? ALLERGIES: Iodine; Iv Dye [Iodinated Contrast- Oral And Iv Dye]; Shellfish; Victoza [Liraglutide] ? PERSONAL HISTORY: Social History Marital status: Spouse name: Niles Years of education: 16 Number of children: 0 Occupational History Occupation Employer Comment [employer]* [employer] Social History Main Topics Smoking status: Passive Smoke Exposure - Never Smoker Packs/day: 0.00 Years: 0.00 Smokeless status: Never Used Comment: smokes socially Alcohol use: No Drug use: No Sexual activity: Not Currently Partners with: Male control/protection: Tubal Ligation ? FAMILY HISTORY - Diabetes Father ? - Heart Father ? - Breast Cancer Maternal Grandmother ? - Prostate Cancer Maternal Grandfather ? - Osteoporosis Mother ? - Osteoporosis Sister ? - Hypertension Sister ? - Lipids Father ? - Arthritis Mother ? - GI Mother ? ? ? IBS ? REVIEW OF SYSTEMS: General: The patient denies fatigue, denies weight loss, denies weight gain, denies feeling hot, and denies feelings of cold. Eyes: The patient denies glaucoma, denies eye injury/surgery, wears glasses or contacts. Ear/Nose/Throat: The patient denies allergies, denies hayfever, denies ear infections, and denies bloody noses. Cardiovascular:denies chest pain, denies heart disease, denies high blood pressure,denies cardiac stent, denies prior heart attack, denies irregular heart beat, denies high cholesterol, denies poor circulation, denies heart failure, other cardiac issues, denies claudication, denies cold feet, denies peripheral arterial stent. Respiratory: The patient denies tuberculosis, denies pneumonia, denies frequent cough, denies pulmonary embolism, denies shortness of breath, and denies coughing up blood. Gastrointestinal: had last colonoscopy Feb 2017, denies difficulty swallowing, NOTES acid reflux, denies ulcers, denies vomiting, denies jaundice/hepatitis, denies gallbladder problems, denies black or tarry stools, denies hemorrhoids, denies bleeding from rectum, denies diverticulitis, denies constipation, denies diarrhea, denies loss of stool control, and denies hernias. Kidney/Bladder: The patient denies kidney stones, denies urine infections, and denies bloody urine. Skin: The patient denies a history of skin cancer, denies bleeding/changing moles, and denies a history of skin rash. Neurologic:has tension headaches, denies seizures, denies head/spinal injuries, and denies stroke/TIA. Psychiatric: The patient denies psychiatric medications, NOTES depression, and denies voices, denies substance abuse. Endocrine: The patient denies thyroid disorders, NOTES diabetes, and denies hormonal problems. Hematologic: The patient denies a history of bruising, denies bleeding, and denies anemia, denies blood clots. Infections: The patient denies a history of measles and mumps, denies rheumatic fever, and denies sexually transmitted diseases. Musculoskeletal: has osteoarthritis of shoulders, denies back pain/injury, denies back problems, denies sciatica, denies knee/foot trouble, NOTES arthritis, or denies gout. Obstetrical: menarche onset at age 13, had shots to induce normal menstrual periods then started on hormones at age 16 and continued until age 19 and then begun on BCP - all to aid in normalizing menstrual periods, patient had normal menstrual periods starting at age 42, menopause around age 52 ? PHYSICAL EXAMINATION: General: The patient is 61 year old female, well nourished, well hydrated in no acute distress. The patient is oriented to time, place, and person. VITALS: Blood pressure 138/62, pulse 64, weight 88.5 kg (195 lb). Body mass index is 36.25 kg/(m2) Head ? Normocephalic. EOM intact with sclera clear and no icterus noted. Mouth with mucus membranes moist. Neck - supple with no jugular venous distention noted. Trachea is midline. No carotid bruits noted. No thyroid enlargement or thyroid nodules detected. No masses noted. Chest/breast ? bilateral mastectomies well healed, no evidence of seroma or infection Lungs ? clear to auscultation. Normal breath sounds. No rales/rhonchi/wheezing noted. No labored breathing noted, such as retractions. No cough heard. Heart ? normal S1 and S2 auscultated. No rubs/clicks/murmurs noted. Regular rate. Abdomen ? soft and benign. Normal bowel sounds. No abdominal bruits noted. Difficult to determine if any masses or organomegaly due to body habitus. Extremities ? no calf tenderness noted. No pitting edema noted. Skin ? normal skin integrity. Lymph ? no cervical adenopathy detected, no supraclavicular adenopathy detected, no axillary adenopathy detected Neurological ? gait normal, no focal deficits Psych ? calm and appropriate ? IMPRESSION: history of left breast cancer ? Plan: Will schedule for port placement this week at [facility]. I have counseled patient as to risks of surgery including but not limited to: infection, bleeding, injury to any blood vessels/nerves, injury to lungs (such as pneumothorax or hemothorax and need for chest tube), not having any access, nonfunctioning of port due to thrombosis, infection of port, etc. ? the patient understands She agrees to proceed. I have answered all of the patient's questions to the patient?s satisfaction and the patient has no further questions. ? PROGRESS Observed: 05/07/2017 Status: COMPLETED Source: [place] 3:36 PM [facility] REPOSITORY HNO ID: [id number] Author: Fauzia Lucio (Sw) Service: (none) Author Type: Architectural Intern Type: Progress Notes Filed: 05/07/2017 3:43 PM Note Text: PSYCHOSOCIAL ASSESSMENT Date of Service: May 07, 2017 Jessica Rodriguez is a 62 year old female being seen for initial social work assessment. Diagnosis: Breast cancer New Primary Oncologist: Dr. Pantoja Radiation Oncologist: Dr. Zepeda Goals of Care: Curative intent Today's visit includes: self/patient and spouse Family History of Cancer: maternal grandmother *SUPPORT NETWORK: Marital status: Parent(s): Mother is and Father is Child/Children: No director career services arrangements needed: No Siblings: 1 sister(s) and 1 brother(s) Grandchild(darwin): none Home Health Provider: No Community Services: No Minnie Identified: Yes Voodoo/Spirituality: Synagogue Are these practices or beliefs that may affect or influence treatment? No *EMPLOYMENT/FINANCIAL/HEALTH INSURANCE: Employment: Employed: [employer], [employer] Income source: Salary Insurance: Private Prescription coverage: Yes COBRA Is the patient appropriate for referral to [facility] [place] COBRA Assistance program? No Financial Distress: No : Yes--spouse is *LIVING ARRANGEMENTS: Type: House- independent ranch Resides with: Family , Niles and dog *FUNCTIONAL STATUS: Cognitive limitations: none Physical limitations: none Language barrier: No Hearing Impaired: No Speech Impaired: No Visual Impairments: Yes, glasses Literacy Issues: No Special considerations/accommodations needed: No MENTAL HEALTH HISTORY: Yes Treatment: medication History of combat/trauma: No Substance Use and Treatment History: denied History of Abuse: No Issues with: ? Sleep:Yes ? Eating:No ? Exercising: No ? Stress Management: No *ADVANCE DIRECTIVES/LEGAL DOCUMENTS: Living Will: No and provided Living Will information for patient to review Health Care Durable Power of Telescope Operator: No and provided POA information for patient to review Scanned into EPIC: No Guardianship: No Scanned into EPIC:NA *COPING STATUS: Coping Strengths: supportive relationships with immediate family, with friends, with extended family, with neighbors, with confucianism and health care team spirituality successful managing past crises hopefulness self advocate strong problem-solving skills ability to plan able to follow direction consistently over time able to communicate effectively Current affect/mood: appropriate History of Loss: Yes, mother and father Adjustment to diagnosis: reflecting understanding, responding appropriately and accepting help *BARRIERS/CARE CHALLENGES: None Are barriers/care challenges identified likely to have an impact on the patient's quality of life during treatment? NA *CLINICAL IMPRESSION: NIRANJAN met with patient and her spouse following her chemotherapy education appointment. Patient reports good support system, including brother, sister, spouse and extended family. Patient does not have children, but does have a standard poodle that they care for greatly. Patient reports she enjoys walking the dog and biking. Patient denies any issues sleeping or eating recently, but does have a history of sleeping issues due to anxiety. Patient was on lorazepam, but is no longer taking this. She is taking a natural supplement and melatonin. Patient is also continuing to take Fluoxetine, which she started during menopause. Patient does not have Advance Directives, so NIRANJAN provided her and her a copy for them to return to be scanned into her chart. NIRANJAN oriented patient to services and provided her with a list of local resources and information on upcoming nutrition meeting. INTERVENTIONS/REFERRALS TO BE PROVIDED: Monitor patient response to treatment Communicate pertinent medical/psychosocial information to Cancer Center team Provide emotional support to patient/family Referral to community resource Assist with financial support applications Psychotherapy/Counseling Education Relaxation Techniques Provided education on distress and screening process Continue follow up as needed Resources and Referrals: ? Internal: Support Group and [facility] ? External: [facility] and Look Good Feel Better PLAN: Follow up appointment with NIRANJAN in: [facility] Observed: 05/07/2017 Status: COMPLETED Source: [place] 2:28 PM [facility] [place] REPOSITORY HNO ID: [id number] Author: Yaneth LloydRn) MONET Pablo Service: (none) Author Type: Registered Nurse Type: Nursing Progress Note Filed: 05/07/2017 2:29 PM Note Text: Per Pranay at Dr. Chong's office, Dr Chong is okay for patient to continue Ibuprofen as directed. Pt advised. CREATININE Collected: 05/07/2017 Status: F Source: [place] 1:40 PM [facility] REPOSITORY TYPE CODE TESTS RESULT OUT OF REFERENCE UNITS RANGE LAB CRET 0.58-0.96 mg/dL Creatinine 0.70 LAB GFRAA eGFR- >60 Amer. LAB GFRNAA . eGFR-All Other Races >60 Result Comment: eGFR (Estimated GFR) Units of measure: mL/min/1.73 meters squared eGFR is derived from the reexpressed MDRD Study equation using the following parameters: serum creatinine, age, gender and race. The creatinine assay has been calibrated to be traceable to IDMS. An eGFR <60 mL/min/1.73m2 for >3 months is consistent with chronic kidney disease. Refer to KDOQI guidelines for clinical interpretation. In patients with unstable renal function, e.g. those with acute kidney injury, the eGFR may not accurately reflect actual GFR. Performed By: #### CRET1 #### [facility] [place] [facility] [address] [place], [place] [address] PROGRESS Observed: 05/07/2017 Status: COMPLETED Source: [place] 1:25 PM [facility] REPOSITORY HNO ID: [id number] Author: Hodan Chong Service: (none) Author Type: Physician Type: Progress Notes Filed: 05/07/2017 1:31 PM Note Text: Jessica is s/p bilateral mastectomies 04/20/17 - diagnosis of left breast cancer. Three lymph nodes were positive for breast cancer. She has been evaluated by hem/onc and is a candidate for chemotherapy. Port placement requested. PAST MEDICAL HISTORY - Diverticulosis of colon with hemorrhage - Personal history of colonic polyps - PMH - PAST MEDICAL HISTORY OF SPASTIC COLON - Psoriatic arthritis (HCC) - Tension headache - Type II or unspecified type diabetes mellitus without mention of complication, not stated as uncontrolled PAST SURGICAL HISTORY - COLONOSCOP W/ OR W/O [facility] SPEC 2000 Colonoscopy - COLONOSCOP W/ OR W/O [facility] SPEC 12/09/2012 Colonoscopy - EGD W/O OR W/BRUSH/WASH 12/09/2012 EGD - EXCIS BREAST LESION Left breast - HYSTEROSCOPY WBX WWO D AND C ANDOR POLYPECTOMY 2011 PMB- polyps - LIGATE FALLOPIAN TUBE - PAST SURGICAL HISTORY OF cyst removed from back PAST INJURIES Denies head injuries, denies history of fractures Current Outpatient Prescriptions: OTEZLA 30 mg tablet AFLURIA QUAD [id number], PF, 60 mcg/0.5 mL syrg To be injected by Pharmacist metFORMIN ER (GLUCOPHAGE XR) 500 mg 24 hr tablet Take 1,000 mg by mouth once daily. SUMAtriptan (IMITREX) 100 mg tablet Take 100 mg by mouth as needed. Omeprazole (PRILOSEC) 40 mg capsule Take 40 mg by mouth once daily. methotrexate 2.5 mg tablet Take 2.5 mg by mouth as directed. Pt is taking 6 tablets, once weekly hydroxychloroquine (PLAQUENIL) 200 mg tablet Take 200 mg by mouth twice daily. LEUCOVORIN CALCIUM ORAL Take 5 mg by mouth once each week. Pt takes this the day after taking methotrexate. tvplyry-hhzirghz-laybbygzcr capsule Take 1 capsule by mouth once daily as needed. traMADol 50 mg tablet Take 50 mg by mouth three times daily as needed. eletriptan (RELPAX) 20 mg tablet Take 20 mg by mouth as needed. may repeat in 2 hours if necessary saxagliptin-metFORMIN (KOMBIGLYZE XR) 5-1,000 mg TM24 Take by mouth. Flaxseed Oil 1,000 mg ORAL Cap Take 1 capsule by mouth once daily. simvastatin (ZOCOR) 20 mg ORAL tablet Take 1 tablet by mouth daily at bedtime. omeprazole (PRILOSEC) 20 mg ORAL capsule Take 1 capsule by mouth once daily. LORazepam 0.5 mg ORAL Tab Take 0.5 mg by mouth once daily as needed. fluoxetine 20 mg ORAL capsule Take 20 mg by mouth once daily. gluc perez/chondro perez a/vit c/mn(GLUCOSAMINE CHONDROITIN MAXIMUM STRENGTH 500 MG-400 MG CAP) Take one(1) capsules three(3) times daily.. naproxen sodium(ALEVE 220 MG TAB) PRN MULTIVITAMIN TAB Take one(1) tablet daily. CALCIUM + D 600 MG-200 UNIT TAB Take one(1) tablet twice daily. TYLENOL EXTRA STRENGTH 500 MG TAB Take two(2) tablets every six(6) hours as needed for pain. ALLERGIES: Iodine; Iv Dye [Iodinated Contrast- Oral And Iv Dye]; Shellfish; Victoza [Liraglutide] PERSONAL HISTORY: Social History Marital status: Spouse name: Niles Years of education: 16 Number of children: 0 Occupational History Occupation Employer Comment [employer]* [employer] Social History Main Topics Smoking status: Passive Smoke Exposure - Never Smoker Packs/day: 0.00 Years: 0.00 Smokeless status: Never Used Comment: smokes socially Alcohol use: No Drug use: No Sexual activity: Not Currently Partners with: Male control/protection: Tubal Ligation FAMILY HISTORY - Diabetes Father - Heart Father - Breast Cancer Maternal Grandmother - Prostate Cancer Maternal Grandfather - Osteoporosis Mother - Osteoporosis Sister - Hypertension Sister - Lipids Father - Arthritis Mother - GI Mother IBS REVIEW OF SYSTEMS: General: The patient denies fatigue, denies weight loss, denies weight gain, denies feeling hot, and denies feelings of cold. Eyes: The patient denies glaucoma, denies eye injury/surgery, wears glasses or contacts. Ear/Nose/Throat: The patient denies allergies, denies hayfever, denies ear infections, and denies bloody noses. Cardiovascular:denies chest pain, denies heart disease, denies high blood pressure,denies cardiac stent, denies prior heart attack, denies irregular heart beat, denies high cholesterol, denies poor circulation, denies heart failure, other cardiac issues, denies claudication, denies cold feet, denies peripheral arterial stent. Respiratory: The patient denies tuberculosis, denies pneumonia, denies frequent cough, denies pulmonary embolism, denies shortness of breath, and denies coughing up blood. Gastrointestinal: had last colonoscopy Feb 2017, denies difficulty swallowing, NOTES acid reflux, denies ulcers, denies vomiting, denies jaundice/hepatitis, denies gallbladder problems, denies black or tarry stools, denies hemorrhoids, denies bleeding from rectum, denies diverticulitis, denies constipation, denies diarrhea, denies loss of stool control, and denies hernias. Kidney/Bladder: The patient denies kidney stones, denies urine infections, and denies bloody urine. Skin: The patient denies a history of skin cancer, denies bleeding/changing moles, and denies a history of skin rash. Neurologic:has tension headaches, denies seizures, denies head/spinal injuries, and denies stroke/TIA. Psychiatric: The patient denies psychiatric medications, NOTES depression, and denies voices, denies substance abuse. Endocrine: The patient denies thyroid disorders, NOTES diabetes, and denies hormonal problems. Hematologic: The patient denies a history of bruising, denies bleeding, and denies anemia, denies blood clots. Infections: The patient denies a history of measles and mumps, denies rheumatic fever, and denies sexually transmitted diseases. Musculoskeletal: has osteoarthritis of shoulders, denies back pain/injury, denies back problems, denies sciatica, denies knee/foot trouble, NOTES arthritis, or denies gout. Obstetrical: menarche onset at age 13, had shots to induce normal menstrual periods then started on hormones at age 16 and continued until age 19 and then begun on BCP - all to aid in normalizing menstrual periods, patient had normal menstrual periods starting at age 42, menopause around age 52 PHYSICAL EXAMINATION: General: The patient is 61 year old female, well nourished, well hydrated in no acute distress. The patient is oriented to time, place, and person. VITALS: Blood pressure 138/62, pulse 64, weight 88.5 kg (195 lb). Body mass index is 36.25 kg/(m2) Head ? Normocephalic. EOM intact with sclera clear and no icterus noted. Mouth with mucus membranes moist. Neck - supple with no jugular venous distention noted. Trachea is midline. No carotid bruits noted. No thyroid enlargement or thyroid nodules detected. No masses noted. Chest/breast ? bilateral mastectomies well healed, no evidence of seroma or infection Lungs ? clear to auscultation. Normal breath sounds. No rales/rhonchi/wheezing noted. No labored breathing noted, such as retractions. No cough heard. Heart ? normal S1 and S2 auscultated. No rubs/clicks/murmurs noted. Regular rate. Abdomen ? soft and benign. Normal bowel sounds. No abdominal bruits noted. Difficult to determine if any masses or organomegaly due to body habitus. Extremities ? no calf tenderness noted. No pitting edema noted. Skin ? normal skin integrity. Lymph ? no cervical adenopathy detected, no supraclavicular adenopathy detected, no axillary adenopathy detected Neurological ? gait normal, no focal deficits Psych ? calm and appropriate IMPRESSION: history of left breast cancer Plan: Will schedule for port placement this week at [facility]. I have counseled patient as to risks of surgery including but not limited to: infection, bleeding, injury to any blood vessels/nerves, injury to lungs (such as pneumothorax or hemothorax and need for chest tube), not having any access, nonfunctioning of port due to thrombosis, infection of port, etc. ? the patient understands She agrees to proceed. I have answered all of the patient's questions to the patient?s satisfaction and the patient has no further questions. CNOV Observed: 05/07/2017 Status: COMPLETED Source: [place] 1:00 PM [facility] REPOSITORY Office Visit (SWS) MICHAELJESSICA ([id number]) 1955 F Date Time Provider Department 05/07/17 1:00 PM HODAN CHONG During your visit today, we recorded the following information about you: Pulse Blood pressure Weight 66/minute 160/80 85.7 kg Hodan Chong MD 05/07/2017 1:31 PM Signed Jessica is s/p bilateral mastectomies 04/20/17 - diagnosis of left breast cancer. Three lymph nodes were positive for breast cancer. She has been evaluated by hem/onc and is a candidate for chemotherapy. Port placement requested. PAST MEDICAL HISTORY - Diverticulosis of colon with hemorrhage - Personal history of colonic polyps - PMH - PAST MEDICAL HISTORY OF SPASTIC COLON - Psoriatic arthritis (HCC) - Tension headache - Type II or unspecified type diabetes mellitus without mention of complication, not stated as uncontrolled PAST SURGICAL HISTORY - COLONOSCOP W/ OR W/O [facility] SPEC 2000 Colonoscopy - COLONOSCOP W/ OR W/O [facility] SPEC 12/09/2012 Colonoscopy - EGD W/O OR W/BRUSH/WASH 12/09/2012 EGD - EXCIS BREAST LESION Left breast - HYSTEROSCOPY WBX WWO D AND C ANDOR POLYPECTOMY 2011 PMB- polyps - LIGATE FALLOPIAN TUBE - PAST SURGICAL HISTORY OF cyst removed from back PAST INJURIES Denies head injuries, denies history of fractures Current Outpatient Prescriptions: OTEZLA 30 mg tablet AFLURIA QUAD [id number], PF, 60 mcg/0.5 mL syrg To be injected by Pharmacist metFORMIN ER (GLUCOPHAGE XR) 500 mg 24 hr tablet Take 1,000 mg by mouth once daily. SUMAtriptan (IMITREX) 100 mg tablet Take 100 mg by mouth as needed. Omeprazole (PRILOSEC) 40 mg capsule Take 40 mg by mouth once daily. methotrexate 2.5 mg tablet Take 2.5 mg by mouth as directed. Pt is taking 6 tablets, once weekly hydroxychloroquine (PLAQUENIL) 200 mg tablet Take 200 mg by mouth twice daily. LEUCOVORIN CALCIUM ORAL Take 5 mg by mouth once each week. Pt takes this the day after taking methotrexate. gpmlvoj-fimqbvvm-vihkczghov capsule Take 1 capsule by mouth once daily as needed. traMADol 50 mg tablet Take 50 mg by mouth three times daily as needed. eletriptan (RELPAX) 20 mg tablet Take 20 mg by mouth as needed. may repeat in 2 hours if necessary saxagliptin-metFORMIN (KOMBIGLYZE XR) 5-1,000 mg TM24 Take by mouth. Flaxseed Oil 1,000 mg ORAL Cap Take 1 capsule by mouth once daily. simvastatin (ZOCOR) 20 mg ORAL tablet Take 1 tablet by mouth daily at bedtime. omeprazole (PRILOSEC) 20 mg ORAL capsule Take 1 capsule by mouth once daily. LORazepam 0.5 mg ORAL Tab Take 0.5 mg by mouth once daily as needed. fluoxetine 20 mg ORAL capsule Take 20 mg by mouth once daily. gluc perez/chondro perez a/vit c/mn(GLUCOSAMINE CHONDROITIN MAXIMUM STRENGTH 500 MG-400 MG CAP) Take one(1) capsules three(3) times daily.. naproxen sodium(ALEVE 220 MG TAB) PRN MULTIVITAMIN TAB Take one(1) tablet daily. CALCIUM + D 600 MG-200 UNIT TAB Take one(1) tablet twice daily. TYLENOL EXTRA STRENGTH 500 MG TAB Take two(2) tablets every six(6) hours as needed for pain. ALLERGIES: Iodine; Iv Dye [Iodinated Contrast- Oral And Iv Dye]; Shellfish; Victoza [Liraglutide] PERSONAL HISTORY: Social History Marital status: Spouse name: Niles Years of education: 16 Number of children: 0 Occupational History Occupation Employer [employer] Social History Main Topics Smoking status: Passive Smoke Exposure - Never Smoker Packs/day: 0.00 Years: 0.00 Smokeless status: Never Used Comment: smokes socially Alcohol use: No Drug use: No Sexual activity: Not Currently Partners with: Male control/protection: Tubal Ligation FAMILY HISTORY - Diabetes Father - Heart Father - Breast Cancer Maternal Grandmother - Prostate Cancer Maternal Grandfather - Osteoporosis Mother - Osteoporosis Sister - Hypertension Sister - Lipids Father - Arthritis Mother - GI Mother IBS REVIEW OF SYSTEMS: General: The patient denies fatigue, denies weight loss, denies weight gain, denies feeling hot, and denies feelings of cold. Eyes: The patient denies glaucoma, denies eye injury/surgery, wears glasses or contacts. Ear/Nose/Throat: The patient denies allergies, denies hayfever, denies ear infections, and denies bloody noses. Cardiovascular:denies chest pain, denies heart disease, denies high blood pressure,denies cardiac stent, denies prior heart attack, denies irregular heart beat, denies high cholesterol, denies poor circulation, denies heart failure, other cardiac issues, denies claudication, denies cold feet, denies peripheral arterial stent. Respiratory: The patient denies tuberculosis, denies pneumonia, denies frequent cough, denies pulmonary embolism, denies shortness of breath, and denies coughing up blood. Gastrointestinal: had last colonoscopy Feb 2017, denies difficulty swallowing, NOTES acid reflux, denies ulcers, denies vomiting, denies jaundice/hepatitis, denies gallbladder problems, denies black or tarry stools, denies hemorrhoids, denies bleeding from rectum, denies diverticulitis, denies constipation, denies diarrhea, denies loss of stool control, and denies hernias. Kidney/Bladder: The patient denies kidney stones, denies urine infections, and denies bloody urine. Skin: The patient denies a history of skin cancer, denies bleeding/changing moles, and denies a history of skin rash. Neurologic:has tension headaches, denies seizures, denies head/spinal injuries, and denies stroke/TIA. Psychiatric: The patient denies psychiatric medications, NOTES depression, and denies voices, denies substance abuse. Endocrine: The patient denies thyroid disorders, NOTES diabetes, and denies hormonal problems. Hematologic: The patient denies a history of bruising, denies bleeding, and denies anemia, denies blood clots. Infections: The patient denies a history of measles and mumps, denies rheumatic fever, and denies sexually transmitted diseases. Musculoskeletal: has osteoarthritis of shoulders, denies back pain/injury, denies back problems, denies sciatica, denies knee/foot trouble, NOTES arthritis, or denies gout. Obstetrical: menarche onset at age 13, had ANDquot;shotsANDquot; to induce normal menstrual periods then started on hormones at age 16 and continued until age 19 and then begun on BCP - all to aid in normalizing menstrual periods, patient had normal menstrual periods starting at age 42, menopause around age 52 PHYSICAL EXAMINATION: General: The patient is 61 year old female, well nourished, well hydrated in no acute distress. The patient is oriented to time, place, and person. VITALS: Blood pressure 138/62, pulse 64, weight 88.5 kg (195 lb). Body mass index is 36.25 kg/(m2) Head ? Normocephalic. EOM intact with sclera clear and no icterus noted. Mouth with mucus membranes moist. Neck - supple with no jugular venous distention noted. Trachea is midline. No carotid bruits noted. No thyroid enlargement or thyroid nodules detected. No masses noted. Chest/breast ? bilateral mastectomies well healed, no evidence of seroma or infection Lungs ? clear to auscultation. Normal breath sounds. No rales/rhonchi/wheezing noted. No labored breathing noted, such as retractions. No cough heard. Heart ? normal S1 and S2 auscultated. No rubs/clicks/murmurs noted. Regular rate. Abdomen ? soft and benign. Normal bowel sounds. No abdominal bruits noted. Difficult to determine if any masses or organomegaly due to body habitus. Extremities ? no calf tenderness noted. No pitting edema noted. Skin ? normal skin integrity. Lymph ? no cervical adenopathy detected, no supraclavicular adenopathy detected, no axillary adenopathy detected Neurological ? gait normal, no focal deficits Psych ? calm and appropriate IMPRESSION: history of left breast cancer Plan: Will schedule for port placement this week at [facility]. I have counseled patient as to risks of surgery including but not limited to: infection, bleeding, injury to any blood vessels/nerves, injury to lungs (such as pneumothorax or hemothorax and need for chest tube), not having any access, nonfunctioning of port due to thrombosis, infection of port, etc. ? the patient understands She agrees to proceed. I have answered all of the patient's questions to the patient?s satisfaction and the patient has no further questions. Referring Provider: HODAN CHONG [[id number]] Allergies As of Date: 05/07/2017 Noted Allergy Reaction IV DYE (IODINATED CONTRAST- ORAL *05/21/2006 4 - Hives SHELLFISH 05/21/2006 VICTOZA (LIRAGLUTIDE) 03/30/2017 5 - Intolerance Date Reviewed: 05/07/2017 Reviewed by: Hodan Chong - Fully Assessed Reason for Visit: Post Op [174] Cmt: mastectomy Primary Visit Diagnosis:Surgery follow-up examination [Z09] Prescriptions as of 05/07/2017 Sig: ONDANSETRON HCL 8 MG TABLET Take 1 tablet by mouth every * PREDNISONE 50 MG TABLET Take 1 tablet 13, 7 and 1 baldomero* OTEZLA 30 MG TABLET METFORMIN ER 500 MG TABLET,EX* Take 1,000 mg by mouth once d* SUMATRIPTAN 100 MG TABLET Take 100 mg by mouth as neede* OMEPRAZOLE 40 MG CAPSULE,CARLYN* Take 40 mg by mouth once adia* [id number]-[id number] 5* Take 1 capsule by mouth once * TRAMADOL 50 MG TABLET Take 50 mg by mouth three lizeth* * FLUOXETINE 20 MG CAPSULE Take 20 mg by mouth once adia* * MULTIVITAMIN TABLET Take one(1) tablet daily. 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 Encounter Status:Closed by MD HODAN CHONG on 05/07/17 CNSW Observed: 05/07/2017 Status: COMPLETED Source: [place] 12:00 AM [facility] REPOSITORY Social Work ([place]) JESSICA RODRIGUEZ ([id number]) 1955 F Date Time Provider Department 05/07/17 FAUZIA LUCIO (AIDE [facility]ST During your visit today, we recorded the following information about you: MONA Mclean 05/07/2017 3:43 PM Signed Sensitive Note PSYCHOSOCIAL ASSESSMENT Date of Service: May 07, 2017 Jessica Rodriguez is a 62 year old female being seen for initial social work assessment. Diagnosis: Breast cancer New Primary Oncologist: Dr. Pantoja Radiation Oncologist: Dr. Zepeda Goals of Care: Curative intent Today's visit includes: self/patient and spouse Family History of Cancer: maternal grandmother *SUPPORT NETWORK: Marital status: Parent(s): Mother is and Father is Child/Children: No director career services arrangements needed: No Siblings: 1 sister(s) and 1 brother(s) Grandchild(darwin): none Home Health Provider: No Community Services: No Minnie Identified: Yes Voodoo/Spirituality: Synagogue Are these practices or beliefs that may affect or influence treatment? No *EMPLOYMENT/FINANCIAL/HEALTH INSURANCE: Employment: Employed: [employer], [employer] Income source: Salary Insurance: Private Prescription coverage: Yes COBRA Is the patient appropriate for referral to [facility] COBRA Assistance program? No Financial Distress: No [place]: Yes--spouse is *LIVING ARRANGEMENTS: Type: House- independent ranch Resides with: Family , Niles and dog *FUNCTIONAL STATUS: Cognitive limitations: none Physical limitations: none Language barrier: No Hearing Impaired: No Speech Impaired: No Visual Impairments: Yes, glasses Literacy Issues: No Special considerations/accommodations needed: No MENTAL HEALTH HISTORY: Yes Treatment: medication History of combat/trauma: No Substance Use and Treatment History: denied History of Abuse: No Issues with: ? Sleep:Yes ? Eating:No ? Exercising: No ? Stress Management: No *ADVANCE DIRECTIVES/LEGAL DOCUMENTS: Living Will: No and provided Living Will information for patient to review Health Care Durable Power of Telescope Operator: No and provided POA information for patient to review Scanned into EPIC: No Guardianship: No Scanned into EPIC:NA *COPING STATUS: Coping Strengths: supportive relationships with immediate family, with friends, with extended family, with neighbors, with confucianism and health care team spirituality successful managing past crises hopefulness self advocate strong problem-solving skills ability to plan able to follow direction consistently over time able to communicate effectively Current affect/mood: appropriate History of Loss: Yes, mother and father Adjustment to diagnosis: reflecting understanding, responding appropriately and accepting help *BARRIERS/CARE CHALLENGES: None Are barriers/care challenges identified likely to have an impact on the patient's quality of life during treatment? NA *CLINICAL IMPRESSION: NIRANJAN met with patient and her spouse following her chemotherapy education appointment. Patient reports good support system, including brother, sister, spouse and extended family. Patient does not have children, but does have a standard poodle that they care for greatly. Patient reports she enjoys walking the dog and biking. Patient denies any issues sleeping or eating recently, but does have a history of sleeping issues due to anxiety. Patient was on lorazepam, but is no longer taking this. She is taking a natural supplement and melatonin. Patient is also continuing to take Fluoxetine, which she started during menopause. Patient does not have Advance Directives, so NIRANJAN provided her and her a copy for them to return to be scanned into her chart. NIRANJAN oriented patient to services and provided her with a list of local resources and information on upcoming nutrition meeting. INTERVENTIONS/REFERRALS TO BE PROVIDED: Monitor patient response to treatment Communicate pertinent medical/psychosocial information to Cancer Center team Provide emotional support to patient/family Referral to community resource Assist with financial support applications Psychotherapy/Counseling Education Relaxation Techniques Provided education on distress and screening process Continue follow up as needed Resources and Referrals: ? Internal: Support Group and [facility] ? External: [facility] and Look Good Feel Better PLAN: Follow up appointment with NIRANJAN in: [place] Allergies As of Date: 05/07/2017 Noted Allergy Reaction IV DYE (IODINATED CONTRAST- ORAL *05/21/2006 4 - Hives SHELLFISH 05/21/2006 4 - Hives VICTOZA (LIRAGLUTIDE) 03/30/2017 5 - Intolerance Date Reviewed: 05/07/2017 Reviewed by: Yaneth (Rn) MONET Pablo - Fully Assessed Reason for Visit: Psychosocial Assessment [[id number]] Cmt: JUSTYNA Prescriptions as of 05/07/2017 Sig: IBUPROFEN 200 MG TABLET Take 600 mg by mouth twice da* ONDANSETRON HCL 8 MG TABLET Take 1 tablet by mouth every * PREDNISONE 50 MG TABLET Take 1 tablet 13, 7 and 1 baldomero* OTEZLA 30 MG TABLET 30 mg twice daily. METFORMIN ER 500 MG TABLET,EX* Take 1,000 mg by mouth once d* SUMATRIPTAN 100 MG TABLET Take 100 mg by mouth as neede* OMEPRAZOLE 40 MG CAPSULE,CARLYN* Take 40 mg by mouth once adia* [id number] 5* Take 1 capsule by mouth once * TRAMADOL 50 MG TABLET Take 50 mg by mouth three lizeth* * FLUOXETINE 20 MG CAPSULE Take 20 mg by mouth once adia* * MULTIVITAMIN TABLET Take one(1) tablet daily. 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 Encounter Status:Closed by FAUZIA LUCIO on 05/07/17 HOSP Observed: 05/07/2017 Status: COMPLETED Source: [place] 12:00 AM [facility] REPOSITORY Patient:Jessica Rodriguez MRN: <[id number]> Height:5' 1.024[verified by Shelley Redd RN[(1.55 m) Weight:189 lb (85.73 kg) Outpatient Medications as of 05/08/17: ibuprofen (MOTRIN) 200 mg tablet ondansetron (ZOFRAN) 8 mg tablet predniSONE (DELTASONE) 50 mg tab OTEZLA 30 mg tablet metFORMIN ER (GLUCOPHAGE XR) 500 mg 24 hr tablet SUMAtriptan (IMITREX) 100 mg tablet Omeprazole (PRILOSEC) 40 mg capsule zhhlyua-wipxrrnc-qervpmkytf capsule traMADol 50 mg tablet fluoxetine 20 mg ORAL capsule MULTIVITAMIN TAB CALCIUM + D 600 MG-200 UNIT TAB TYLENOL EXTRA STRENGTH 500 MG TAB Admission/Clinic Administered Medications as of 05/08/17: lidocaine 10 mg/mL (1 %) 1-2 mg injection (XYLOCAINE) lactated ringers infusion Problem List: Postmenopausal bleeding [N95.0] Ovarian cyst [N83.209] Malignant neoplasm of upper-outer quadrant of left breast in female, estrogen receptor positive (HCC) [C50.412, Z17.0] Metastatic cancer to axillary lymph nodes (HCC) [C77.3] Bilateral malignant neoplasm of upper outer quadrant of breast in female (HCC) [C50.411, C50.412] Allergies: IV Dye [Iodinated Contrast- Oral And IV Dye] Shellfish Victoza [Liraglutide] Date Verified: 05/08/17 Lab Values No results within the last 30 days for the following basenames: K,HCT Progress Notes ([facility]): MONA Mclean 05/07/2017 3:43 PM Signed Sensitive Note PSYCHOSOCIAL ASSESSMENT Date of Service: May 07, 2017 Jessica Rodriguez is a 62 year old female being seen for initial social work assessment. Diagnosis: Breast cancer New Primary Oncologist: Dr. Pantoja Radiation Oncologist: Dr. Zepeda Goals of Care: Curative intent Today's visit includes: self/patient and spouse Family History of Cancer: maternal grandmother *SUPPORT NETWORK: Marital status: Parent(s): Mother is and Father is Child/Children: No director career services arrangements needed: No Siblings: 1 sister(s) and 1 brother(s) Grandchild(darwin): none Home Health Provider: No Community Services: No Minnie Identified: Yes Voodoo/Spirituality: Synagogue Are these practices or beliefs that may affect or influence treatment? No *EMPLOYMENT/FINANCIAL/HEALTH INSURANCE: Employment: Employed: [employer], [employer] Income source: Salary Insurance: Private Prescription coverage: Yes COBRA Is the patient appropriate for referral to [facility] COBRA Assistance program? No Financial Distress: No : Yes--spouse is *LIVING ARRANGEMENTS: Type: House- independent ranch Resides with: Family , Niles and dog *FUNCTIONAL STATUS: Cognitive limitations: none Physical limitations: none Language barrier: No Hearing Impaired: No Speech Impaired: No Visual Impairments: Yes, glasses Literacy Issues: No Special considerations/accommodations needed: No MENTAL HEALTH HISTORY: Yes Treatment: medication History of combat/trauma: No Substance Use and Treatment History: denied History of Abuse: No Issues with: ? Sleep:Yes ? Eating:No ? Exercising: No ? Stress Management: No *ADVANCE DIRECTIVES/LEGAL DOCUMENTS: Living Will: No and provided Living Will information for patient to review Health Care Durable Power of Telescope Operator: No and provided POA information for patient to review Scanned into EPIC: No Guardianship: No Scanned into EPIC:NA *COPING STATUS: Coping Strengths: supportive relationships with immediate family, with friends, with extended family, with neighbors, with confucianism and health care team spirituality successful managing past crises hopefulness self advocate strong problem-solving skills ability to plan able to follow direction consistently over time able to communicate effectively Current affect/mood: appropriate History of Loss: Yes, mother and father Adjustment to diagnosis: reflecting understanding, responding appropriately and accepting help *BARRIERS/CARE CHALLENGES: None Are barriers/care challenges identified likely to have an impact on the patient's quality of life during treatment? NA *CLINICAL IMPRESSION: NIRANJAN met with patient and her spouse following her chemotherapy education appointment. Patient reports good support system, including brother, sister, spouse and extended family. Patient does not have children, but does have a standard poodle that they care for greatly. Patient reports she enjoys walking the dog and biking. Patient denies any issues sleeping or eating recently, but does have a history of sleeping issues due to anxiety. Patient was on lorazepam, but is no longer taking this. She is taking a natural supplement and melatonin. Patient is also continuing to take Fluoxetine, which she started during menopause. Patient does not have Advance Directives, so NIRANJAN provided her and her a copy for them to return to be scanned into her chart. NIRANJAN oriented patient to services and provided her with a list of local resources and information on upcoming nutrition meeting. INTERVENTIONS/REFERRALS TO BE PROVIDED: Monitor patient response to treatment Communicate pertinent medical/psychosocial information to Cancer Center team Provide emotional support to patient/family Referral to community resource Assist with financial support applications Psychotherapy/Counseling Education Relaxation Techniques Provided education on distress and screening process Continue follow up as needed Resources and Referrals: ? Internal: Support Group and [facility] ? External: [facility] and Look Good Feel Better PLAN: Follow up appointment with SW in: [place] Progress Notes ([facility]): Pranay Mckeon Surg Coord 05/07/2017 1:33 PM Signed 05-08-2017 [place] Pranay Mckeon Surg Coord PROGRESS Observed: 05/05/2017 Status: COMPLETED Source: [place] 3:22 PM [facility] REPOSITORY HNO ID: [id number] Author: Hodan Chong Service: (none) Author Type: Physician Type: Progress Notes Filed: 05/05/2017 3:26 PM Note Text: Ms. Rodriguez is s/p left mastectomy and axillary lymph node biopsy on 04/30/17 She states that she feels overall well. Has been moving her upper extremity well. MAC drains removed. Examination reveals that wound is well healed, no evidence of seroma or infection. Follow up next week. Patient to be referred to hem/onc. PROGRESS Observed: 05/03/2017 Status: COMPLETED Source: [place] 10:25 AM [facility] REPOSITORY HNO ID: [id number] Author: Harpreet Pantoja Service: (none) Author Type: Physician Type: Progress Notes Filed: 05/03/2017 12:21 PM Note Text: Consult requested by Dr. Chong for my opinion recommendations regarding adjuvant treatment for a patient recently diagnosed with breast cancer. The impression and plan will be communicated by way of the shared electronic record. HPI: The patient is a 62-year-old female was a past medical history significant for diabetes and psoriatic arthritis. Patient had a screening mammogram performed on 03/22/2017 (only 3 months past annual date of previous study). There was a new mass identified in the left breast as being indeterminate. Further studies were recommended. Diagnostic imaging done on 03/28/2017 demonstrated a 3 cm irregular mass in left breast consistent with carcinoma and was highly suggestive of malignancy. Underwent core needle biopsy on 2017. Pathology: Left breast, ultrasound-guided needle core biopsy: Invasive ductal carcinoma, nuclear grade 3 (1 cm in greatest length). See comment. ER (clone [id number]) >95%, strong RI (clone 16/1E2) variable, 0-11%, weak Her-2Neu (clone CB11) 1+ Underwent left-sided mastectomy with left sentinel axillary lymph node biopsy along with prophylactic right-sided mastectomy on 04/20/2017. Pathology: FROZEN SECTION DIAGNOSIS A. Left axillary sentinel lymph nodes, biopsy: Three out of three lymph nodes positive for macrometastatic carcinoma. MICROSCOPIC DIAGNOSIS A. Left axillary sentinel lymph nodes, biopsy: Three out of three lymph nodes positive for macrometastatic carcinoma. See comment. B. Left breast, mastectomy: Invasive ductal carcinoma. C. Right breast: Focal intraductal hyperplasia without atypia. Negative for carcinoma in the sections examined. D. Extra skin and tissue left breast: Negative for carcinoma. INVASIVE BREAST CANCER SUMMARY: (Including specimen A AND B) Specimen ? total breast (including nipple and skin). Procedure ? total mastectomy (including nipple and skin). Lymph node sampling ? sentinel lymph nodes Specimen integrity ? single intact specimen. Specimen laterality - left Tumor size ? 3.5 x 3.3 x 3 cm Tumor focality ? single focus of invasive carcinoma Macroscopic and Microscopic extent of tumor: Skin ? invasive carcinoma does not invade into the dermis or epidermis. Nipple ? ductal carcinoma in situ does not nipple epidermis. Skeletal muscle ? no skeletal muscle present. Ductal carcinoma in situ (DCIS) ? no ductal carcinoma in situ is present. Lobular carcinoma in situ (LCIS) ? not identified Histologic type of invasive carcinoma ? invasive ductal carcinoma (no special type). Histologic Grade ([place] grade): Glandular/tubular differentiation - score 3 Nuclear pleomorphism - score 3 Mitotic count ? score 2 Overall grade - 3 (score of 8) Margins - Margins uninvolved by invasive carcinoma. The invasive carcinoma is 1.5 cm away from the closest posterior margin. Treatment effect: Response to presurgical (neoadjuvant) therapy - no known presurgical therapy. Lymph-Vascular invasion ? not identified Dermal lymph-vascular invasion - not identified Lymph nodes: Number of sentinel lymph nodes examined - 3 Total number of lymph nodes examined (sentinel and nonsentinel) - 3 Number of lymph nodes with macrometastases - 3 Number of lymph nodes with micrometastases and isolated tumor cells - 0 Size of largest metastatic deposit ? 3.6 cm Extranodal extension ? present, focal (0.4 cm in greatest dimension) Distance metastasis ? not applicable Additional pathologic findings ? fibrocystic changes and intraductal hyperplasia without atypia. Ancillary studies - previously performed on section of tumor ([id number] / [id number]). ER ? positive (>95%, strong) RI ? positive (variable, 0-11%, weak) Her2 bhavani ? negative (1+) Microcalcifications ? not identified Clinical history - Please make reference to previous specimen ([id number]) left breast, ultrasound-guided needle core biopsy with diagnosis of invasive ductal carcinoma. PATHOLOGIC STAGE: pT2 pN1a(sn) Mx The above summary is in compliance with [employer] [place] [employer] (CAP) Cancer Protocols Checklist and [place] Joint Committee on Cancer (AJCC), Staging Manual, 8th Ed. COMMENT A. The lymph nodes are almost completely involved by the metastatic tumor. The largest lymph node measures 3.6 cm in greatest dimension. The largest focus of metastasis measures 3.6 cm in greatest dimension. Focal extranodal distention is noted which measures 0.4 cm in greatest dimension. PMH, medications and allergies personally reviewed by me today. Any changes documented in appropriate section. ROS: Constitutional: Denies episodes of fever and night sweats. Not significantly fatigued. Normal appetite. Neuro: Denies OWENS, vertigo, dizziness and imbalance. Denies symptoms of neuropathy. HEENT: No recent change in voice, vision or hearing. Resp: Denies cough, wheeze and hemoptysis. Denies shortness of breath at rest. Denies SANCHEZ. CVS: Denies exertional chest pain, PND, orthopnea and LE edema. GI: Denies dysgeusia. Denies symptoms of stomatitis. Denies dysphagia and odynophagia. Denies reflux, n/v, change in bowel habits and abdominal pain. : Denies dysuria or gross hematuria. No symptoms of bladder outlet obstruction. Endo: Denies hot flashes. Denies polyuria and polydipsia. Denies heat and cold intolerance. Musculoskeletal: OA of shoulders and knees. Psoriatic arthritis affects hands and wrists--good control with Otezla. Derm: Psoriatic plaques resolved with Otezla. Heme: Denies unusual bleeding and unexplained bruising. Psych: Normal mood. PHYSICAL EXAM: Vitals: Blood pressure (!) 137/48, pulse 69, temperature 37.1 ?C (98.8 ?F), height 155 cm (5' 1.02), weight 85.3 kg (188 lb), last menstrual period 02/04/2010. Well-appearing and in no acute distress. EYES: Sclerae are anicteric bilaterally. ENT: Oral mucosa is unremarkable. NECK: Supple. No enlargement of thyroid. LYMPHATIC: There is no palpable cervical, supraclavicular, axillary or inguinal adenopathy. RESPIRATORY: Inspiratory breath sounds are of normal intensity in all peters. No rales, wheezes or rhonchi. CARDIOVASCULAR: Rhythm is regular. Normal intensity S1/S2. There is no gallop or murmur. BREAST: Bilateral mastectomy sites healing well. ABDOMEN: The abdomen is nondistended. No organomegaly. No tenderness. Extremities: No swelling or edema. SKIN: No jaundice or rash. No petechiae. NEUROLOGIC: sheeter operator II-XII are grossly intact. No focal motor weakness. DTRs are symmetric and normal. MUSCULOSKELETAL: No muscle wasting. 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 -pT2 (3.5 cm; grade 3; no LVI) pN1a (3 of 3 SLNs) MX ER/RI positive, HER2 negative invasive ductal carcinoma the left breast. -Staging in [facility] completed. -I discussed with the patient and her the natural history, treated course, and prognosis of stage IIB ER/RI positive, HER2 negative invasive carcinoma of the breast.. Also discussed the rationale, logistics, potential risks (including ), benefits and alternatives, as well as the personnel involved in the administration of AC followed by T. I answered her questions in detail and she verbalized understanding and agreed with the recommended therapy. Please see the electronic consent document for details of doses and schedule. -Discussed need for radiation to the axilla post chemotherapy. -Also discussed the role of aromatase inhibitor therapy and currently available clinical trials such as the SWOG 1207 trial as disease is high risk (+LNs and grade 3 tumor). -Staging work up very reasonable since disease onset relatively quick (normal mammogram 15 months ago) and extensive involvement of the 3 positive nodes with grade 3 tumor. Plan: -CT, bone scan and brain MRI. -Baseline echocardiogram. -Chemotherapy teaching. -Referral to Dr. Chong for port. -Begin chemotherapy week of 05/21. Total sygj-mr-eghn time was >60 minutes with greater than 50 minutes spent discussing the issues outlined above and/or coordinating care. Harpreet Pantoja DO CNOVSP Observed: 05/03/2017 Status: COMPLETED Source: [place] 10:10 AM [facility] REPOSITORY Visit (SP) Office ([place]) JESSICA RODRIGUEZ ([id number]) 1955 F Date Time Provider Department 05/03/17 10:10 AM HARPREET PANTOJA During your visit today, we recorded the following information about you: Temperature Pulse Blood pressure Weight 98.8 degrees 69/minute 137/48 85.3 kg Height 1.[address] LPN, LPN 05/03/2017 10:22 AM Signed New patient, discuss recent DX: left breast ca Pt. Had Bilateral Mastectomy LISA Fung DO 05/03/2017 12:21 PM Signed Consult requested by Dr. Chong for my opinion recommendations regarding adjuvant treatment for a patient recently diagnosed with breast cancer. The impression and plan will be communicated by way of the shared electronic record. HPI: The patient is a 62-year-old female was a past medical history significant for diabetes and psoriatic arthritis. Patient had a screening mammogram performed on 03/22/2017 (only 3 months past annual date of previous study). There was a new mass identified in the left breast as being indeterminate. Further studies were recommended. Diagnostic imaging done on 03/28/2017 demonstrated a 3 cm irregular mass in left breast consistent with carcinoma and was highly suggestive of malignancy. Underwent core needle biopsy on 2017. Pathology: Left breast, ultrasound-guided needle core biopsy: Invasive ductal carcinoma, nuclear grade 3 (1 cm in greatest length). See comment. ER (clone [id number]) ANDgt;95%, strong RI (clone 16/1E2) variable, 0-11%, weak Her-2Neu (clone CB11) 1+ Underwent left-sided mastectomy with left sentinel axillary lymph node biopsy along with prophylactic right-sided mastectomy on 04/20/2017. Pathology: FROZEN SECTION DIAGNOSIS A. Left axillary sentinel lymph nodes, biopsy: Three out of three lymph nodes positive for macrometastatic carcinoma. MICROSCOPIC DIAGNOSIS A. Left axillary sentinel lymph nodes, biopsy: Three out of three lymph nodes positive for macrometastatic carcinoma. See comment. B. Left breast, mastectomy: Invasive ductal carcinoma. C. Right breast: Focal intraductal hyperplasia without atypia. Negative for carcinoma in the sections examined. D. Extra skin and tissue left breast: Negative for carcinoma. INVASIVE BREAST CANCER SUMMARY: (Including specimen A ANDamp; B) Specimen ? total breast (including nipple and skin). Procedure ? total mastectomy (including nipple and skin). Lymph node sampling ? sentinel lymph nodes Specimen integrity ? single intact specimen. Specimen laterality - left Tumor size ? 3.5 x 3.3 x 3 cm Tumor focality ? single focus of invasive carcinoma Macroscopic and Microscopic extent of tumor: Skin ? invasive carcinoma does not invade into the dermis or epidermis. Nipple ? ductal carcinoma in situ does not nipple epidermis. Skeletal muscle ? no skeletal muscle present. Ductal carcinoma in situ (DCIS) ? no ductal carcinoma in situ is present. Lobular carcinoma in situ (LCIS) ? not identified Histologic type of invasive carcinoma ? invasive ductal carcinoma (no special type). Histologic Grade ([place] grade): Glandular/tubular differentiation - score 3 Nuclear pleomorphism - score 3 Mitotic count ? score 2 Overall grade - 3 (score of 8) Margins - Margins uninvolved by invasive carcinoma. The invasive carcinoma is 1.5 cm away from the closest posterior margin. Treatment effect: Response to presurgical (neoadjuvant) therapy - no known presurgical therapy. Lymph-Vascular invasion ? not identified Dermal lymph-vascular invasion - not identified Lymph nodes: Number of sentinel lymph nodes examined - 3 Total number of lymph nodes examined (sentinel and nonsentinel) - 3 Number of lymph nodes with macrometastases - 3 Number of lymph nodes with micrometastases and isolated tumor cells - 0 Size of largest metastatic deposit ? 3.6 cm Extranodal extension ? present, focal (0.4 cm in greatest dimension) Distance metastasis ? not applicable Additional pathologic findings ? fibrocystic changes and intraductal hyperplasia without atypia. Ancillary studies - previously performed on section of tumor ([id number] / [id number]). ER ? positive (ANDgt;95%, strong) RI ? positive (variable, 0-11%, weak) Her2 bhavani ? negative (1+) Microcalcifications ? not identified Clinical history - Please make reference to previous specimen ([id number]) left breast, ultrasound-guided needle core biopsy with diagnosis of invasive ductal carcinoma. PATHOLOGIC STAGE: pT2 pN1a(sn) Mx The above summary is in compliance with [employer] [place] [employer] (CAP) Cancer Protocols Checklist and [place] Joint Committee on Cancer (AJCC), Staging Manual, 8th Ed. COMMENT A. The lymph nodes are almost completely involved by the metastatic tumor. The largest lymph node measures 3.6 cm in greatest dimension. The largest focus of metastasis measures 3.6 cm in greatest dimension. Focal extranodal distention is noted which measures 0.4 cm in greatest dimension. PMH, medications and allergies personally reviewed by me today. Any changes documented in appropriate section. ROS: Constitutional: Denies episodes of fever and night sweats. Not significantly fatigued. Normal appetite. Neuro: Denies OWENS, vertigo, dizziness and imbalance. Denies symptoms of neuropathy. HEENT: No recent change in voice, vision or hearing. Resp: Denies cough, wheeze and hemoptysis. Denies shortness of breath at rest. Denies SANCHEZ. CVS: Denies exertional chest pain, PND, orthopnea and LE edema. GI: Denies dysgeusia. Denies symptoms of stomatitis. Denies dysphagia and odynophagia. Denies reflux, n/v, change in bowel habits and abdominal pain. : Denies dysuria or gross hematuria. No symptoms of bladder outlet obstruction. Endo: Denies hot flashes. Denies polyuria and polydipsia. Denies heat and cold intolerance. Musculoskeletal: OA of shoulders and knees. Psoriatic arthritis affects hands and wrists--good control with Otezla. Derm: Psoriatic plaques resolved with Otezla. Heme: Denies unusual bleeding and unexplained bruising. Psych: Normal mood. PHYSICAL EXAM: Vitals: Blood pressure (!) 137/48, pulse 69, temperature 37.1 ?C (98.8 ?F), height 155 cm (5' 1.02ANDquot;), weight 85.3 kg (188 lb), last menstrual period 02/04/2010. Well-appearing and in no acute distress. EYES: Sclerae are anicteric bilaterally. ENT: Oral mucosa is unremarkable. NECK: Supple. No enlargement of thyroid. LYMPHATIC: There is no palpable cervical, supraclavicular, axillary or inguinal adenopathy. RESPIRATORY: Inspiratory breath sounds are of normal intensity in all peters. No rales, wheezes or rhonchi. CARDIOVASCULAR: Rhythm is regular. Normal intensity S1/S2. There is no gallop or murmur. BREAST: Bilateral mastectomy sites healing well. ABDOMEN: The abdomen is nondistended. No organomegaly. No tenderness. Extremities: No swelling or edema. SKIN: No jaundice or rash. No petechiae. NEUROLOGIC: sheeter operator II-XII are grossly intact. No focal motor weakness. DTRs are symmetric and normal. MUSCULOSKELETAL: No muscle wasting. 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 -pT2 (3.5 cm; grade 3; no LVI) pN1a (3 of 3 SLNs) MX ER/RI positive, HER2 negative invasive ductal carcinoma the left breast. -Staging in [facility] completed. -I discussed with the patient and her the natural history, treated course, and prognosis of stage IIB ER/RI positive, HER2 negative invasive carcinoma of the breast.. Also discussed the rationale, logistics, potential risks (including ), benefits and alternatives, as well as the personnel involved in the administration of AC followed by T. I answered her questions in detail and she verbalized understanding and agreed with the recommended therapy. Please see the electronic consent document for details of doses and schedule. -Discussed need for radiation to the axilla post chemotherapy. -Also discussed the role of aromatase inhibitor therapy and currently available clinical trials such as the SWOG 1207 trial as disease is high risk (+LNs and grade 3 tumor). -Staging work up very reasonable since disease onset relatively quick (normal mammogram 15 months ago) and extensive involvement of the 3 positive nodes with grade 3 tumor. Plan: -CT, bone scan and brain MRI. -Baseline echocardiogram. -Chemotherapy teaching. -Referral to Dr. Chong for port. -Begin chemotherapy week of 05/21. Total nswj-bt-hsyd time was ANDgt;60 minutes with greater than 50 minutes spent discussing the issues outlined above and/or coordinating care. Harpreet Pantoja DO Referring Provider: HODAN CHONG [[id number]] Allergies As of Date: 05/03/2017 Noted Allergy Reaction IV DYE (IODINATED CONTRAST- ORAL *05/21/2006 4 - Hives SHELLFISH 05/21/2006 VICTOZA (LIRAGLUTIDE) 03/30/2017 5 - Intolerance Date Reviewed: 05/03/2017 Reviewed by: Kathi Alberts (Lisa) LISA St - Fully Assessed Reason for Visit: New Patient [172] Primary Visit Diagnosis:Malignant neoplasm of upper-outer quadrant of left breast in female, estrogen receptor positive (HCC) [C50.412, Z17.0] Other Visit Diagnosis:Metastatic cancer to axillary lymph nodes (HCC) [C77.3] Order(s):CT ABD/PEL W IVCON [[id number]] Order #: [id number] FUTURE CT CHEST W IVCON [[id number]] Order #: [id number] FUTURE iv contrast (radiology procedure)CT Chest ABD/PEL-Inject, intravenously, once for 1 dose.No IV access, insert saline lock prior to the beginning of sedation, infusion, injection of imaging exam. Discontinue saline lock post exam. If Pt. has a central line or IVAD, may access for administration according to line specific nursing protocol. Once exam is complete flush line and de- access according to line specific nursing protocol in the CT contrast administration guidelines link.Disp: 1 EachRfl: 0 enteric contrast (radiology procedure)For CT CHESTABD/PEL W IVCON Routine order Administer, As Directed One Time Only, via Oral, Rectal, both Oral and Rectal, Enteric Tube, Stoma or Indwelling Catheter, Enteric Contrast as designated per enteric contrast guidelinesDisp: 1 EachRfl: 0 NM BONE WHOLE BODY [[id number]] Order #: [id number] FUTURE MRI BRAIN WO/W IVCON [[id number]] Order #: [id number] FUTURE iv contrast (radiology procedure)MRI Brain Inject, intravenously, once for 1 dose.No IV access, insert saline lock prior to beginning of sedation, infusion, injection of imaging exam.Discontinue saline lock post exam. If Pt. has a central line or IVAD, may access for administration according to line specific nursing protocol.Once exam is complete flush line and de-access according to line specific nursing protocol in the MR contrast administration guidelines linkDisp: 1 EachRfl: 0 ondansetron (ZOFRAN) 8 mg tabletTake 1 tablet by mouth every 8 hours as needed for Nausea/Vomiting.Disp: 30 tabletRfl: 2 predniSONE (DELTASONE) 50 mg tabTake 1 tablet 13, 7 and [address] scan.Disp: 3 tabletRfl: 0 ECHO [[id number]] Order #: [id number]: 1 FUTURE Follow-up and Disposition History Recorded Prescriptions as of 05/03/2017 Sig: OTEZLA 30 MG TABLET METFORMIN ER 500 MG TABLET,EX* Take 1,000 mg by mouth once d* SUMATRIPTAN 100 MG TABLET Take 100 mg by mouth as neede* OMEPRAZOLE 40 MG CAPSULE,CARLYN* Take 40 mg by mouth once adia* [id number] 5* Take 1 capsule by mouth once * TRAMADOL 50 MG TABLET Take 50 mg by mouth three lizeth* * FLUOXETINE 20 MG CAPSULE Take 20 mg by mouth once adia* * MULTIVITAMIN TABLET Take one(1) tablet daily. * TYLENOL EXTRA STRENGTH 500 MG* Take two(2) tablets every six* IV CONTRAST (RADIOLOGY PROCED* CT Chest ABD/PEL-Inject, intr* ENTERIC CONTRAST (RADIOLOGY P* For CT CHESTABD/PEL W IVCON R* IV CONTRAST (RADIOLOGY PROCED* MRI Brain Inject, intravenous* ONDANSETRON HCL 8 MG TABLET Take 1 tablet by mouth every * PREDNISONE 50 MG TABLET Take 1 tablet 13, 7 and 1 baldomero* * CALCIUM + D 600 MG (1,500 MG)* Take one(1) tablet twice adia* Medication notes this encounter DIPHENHYDRAMINE 50 MG CAPSULE >> Kathi St LPN, LPN 05/03/2017 10:15 AM >> KATHI ST May 03, 2017 10:15 AM Not taking METHOTREXATE SODIUM 2.5 MG TABLET >> Kathi St LPN, LPN 05/03/2017 10:17 AM >> KATHI ST May 03, 2017 10:17 AM discontinued HYDROXYCHLOROQUINE 200 MG TABLET >> Kathi St LPN, LPN 05/03/2017 10:16 AM >> KATHI STu May 03, 2017 10:16 AM Not taking LEUCOVORIN CALCIUM ORAL >> Kathi Perezsandy St LPN, STRIP CATCHER 05/03/2017 10:16 AM >> KATHI ST Carol May 03, 2017 10:16 AM Not taking FLAXSEED OIL 1,000 MG CAPSULE >> Kathisudhir St LPN, STRIP CATCHER 05/03/2017 10:16 AM >> KATHI ST Carol May 03, 2017 10:16 AM Not taking OMEPRAZOLE 20 MG CAPSULE,DELAYED RELEASE >> Kathi Perezsandy St LPN, STRIP CATCHER 05/03/2017 10:17 AM >> KATHI ST Carol May 03, 2017 10:17 AM discontinued LORAZEPAM 0.5 MG TABLET >> Kathisudhir St LPN, STRIP CATCHER 05/03/2017 10:16 AM >> KATHI ST Carol May 03, 2017 10:16 AM Not taking CALCIUM + D 600 MG (1,500 MG)-200 UNIT TABLET >> Kathi Perezsandy St LPN, STRIP CATCHER 05/03/2017 10:15 AM >> KATHI ST Carol May 03, 2017 10:15 AM Taking twice weekly Problem List As Of Date 05/03/2017 Noted Resolved Postmenopausal bleeding [N95.0] INVALID FOR* Ovarian cyst [N83.209] INVALID FOR* Malignant neoplasm of upper-outer quadrant of l*INVALID FOR* 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 Had Bilateral Mastectomy Kathi Lexus St LPN Encounter Status:Closed by HARPREET PANTOJA DO on 05/03/17 MORGANOV Observed: 04/30/2017 Status: COMPLETED Source: [place] 8:10 AM [facility] REPOSITORY Office Visit (GENSWS) JESSICA RODRIGUEZ ([id number]) 1955 F Date Time Provider Department 04/30/17 8:10 AM HODAN CHONG During your visit today, we recorded the following information about you: Hodan Chong MD 05/05/2017 3:26 PM Signed Ms. Rodriguez is s/p left mastectomy and axillary lymph node biopsy on 04/30/17 She states that she feels overall well. Has been moving her upper extremity well. MAC drains removed. Examination reveals that wound is well healed, no evidence of seroma or infection. Follow up next week. Patient to be referred to hem/onc. Referring Provider: HODAN CHONG [[id number]] Allergies As of Date: 04/30/2017 Noted Allergy Reaction IV DYE (IODINATED CONTRAST- ORAL *05/21/2006 SHELLFISH 05/21/2006 VICTOZA (LIRAGLUTIDE) 03/30/2017 5 - Intolerance Date Reviewed: 04/30/2017 Reviewed by: Liliane Allen LPN - Fully Assessed Reason for Visit: Post Op [174] Primary Visit Diagnosis:Surgery follow-up examination [Z09] Prescriptions as of 04/30/2017 Sig: X DIPHENHYDRAMINE 50 MG CAPSULE Take 1 capsule by mouth as di* OTEZLA 30 MG TABLET METFORMIN ER 500 MG TABLET,EX* Take 1,000 mg by mouth once d* X AFLURIA QUAD [id number] (PF) 6* To be injected by Pharmacist SUMATRIPTAN 100 MG TABLET Take 100 mg by mouth as neede* OMEPRAZOLE 40 MG CAPSULE,CARLYN* Take 40 mg by mouth once adia* X METHOTREXATE SODIUM 2.5 MG TA* Take 2.5 mg by mouth as direc* X HYDROXYCHLOROQUINE 200 MG TAB* Take 200 mg by mouth twice da* X LEUCOVORIN CALCIUM ORAL Take 5 mg by mouth once each * NBDFZMOGEO-OQOMXEJ-[id number] 5* Take 1 capsule by mouth once * TRAMADOL 50 MG TABLET Take 50 mg by mouth three lizeth* X * ELETRIPTAN HBR 20 MG TABLET Take 20 mg by mouth as needed* X * SAXAGLIPTIN 5 MG-METFORMIN ER* Take by mouth. X * FLAXSEED OIL 1,000 MG CAPSULE Take 1 capsule by mouth once * X * SIMVASTATIN 20 MG TABLET Take 1 tablet by mouth daily * X * OMEPRAZOLE 20 MG CAPSULE,CARLYN* Take 1 capsule by mouth once * * FLUOXETINE 20 MG CAPSULE Take 20 mg by mouth once adia* X * LORAZEPAM 0.5 MG TABLET Take 0.5 mg by mouth once rigo* X * GLUCOSAMINE CHONDROITIN MAXIM* Take one(1) capsules three(3)* X * ALEVE 220 MG TABLET PRN * MULTIVITAMIN TABLET Take one(1) tablet daily. * CALCIUM + D 600 MG (1,500 MG)* Take one(1) tablet twice adia* * TYLENOL EXTRA STRENGTH 500 MG* Take two(2) tablets every six* Problem List As Of Date 04/30/2017 Noted Resolved Postmenopausal bleeding [N95.0] INVALID FOR* Ovarian cyst [N83.209] INVALID FOR* Encounter Status:Closed by MD HODAN CHONG on 05/05/17 OPERATIVE REPORT Observed: 04/29/2017 Status: F Source: [place] 11:58 AM [facility] REPOSITORY [facility] Medical Records Department [address] [place] [id number] Operative Report 04/20/17 1358 MR#: [id number] Acct: [id number] Name: JESSICA RODRIGUEZ Rep #: [id number] : 1955 62 From: Hodan Chong MD PCP: Ruth Clark DO Status: DIS CATIE Y Location: [place] [address] Report of Operation Date of Procedure: 04/20/17 Pre-Operative Diagnosis: left breast cancer Post-Operative Diagnosis: same Surgery/Procedure Performed:: left breast mastectomy, left axillary sentinel lymph node biopsy Description of Surgical Findings:: multiple large adenopathy of left axilla - positive for metastatic disease 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 This procedure was done simultaneously with Dr. Hawkins - as he was doing a prophylactic right mastectomy. Appropriate time out protocol was followed. She was then placed under general anesthesia. 5 cc of diluted 50:50 lymphozurin was then injected into the periareolar area and around the biopsy cavity with a 25 g needle. Gentle massage was then done for a few minutes. The patient's chest and neck area was then prepped with a sterile surgical skin preparation and appropriate sterile surgical drapes were placed. A skin incision was made to include the periareolar tissues as well as to encompass the original biopsy incision. The skin incision was made with a 10 blade scalpel and carried through to the subcutaneous tissues using electrocautery. Any hemorrhage was controlled with electrocautery. The medial and superior skin flap was created by the subcutaneous fat from the breast tissue using electrocautery. Any bleeding vessels were controlled with electrocautery. Larger vessels were ligated with vicryl suture. Dissection then continued to the level of the left lateral sternal border. The superior level of dissection was carried down to the clavipectoral fascia. The inferior skin flap was developed in the same fashion and the breast tissue was to its inferior border from the subcutaneous fat. The entire breast tissue and the pectoralis fascia were then from the pectoralis muscles starting medially and continuing laterally. The dissection included the interpectoral macie tissue. Once dissection was achieved to the lateral aspect of the breast, then the inferior portion of the lateral tissue was transected leaving the breast tissue connected only by the superior lateral tissue (tail of Chung) of the breast. Blunt dissection was then conducted into the axillary fossa to palpate out any axillary lymph nodes. Blue lymphatic channels were also followed to its lymphatic drainage area. There was palpable adenopathy noted in the axilla. This tissue was dissected from the surrounding tissues and the vascular pedicles were ligated with ligaclips. The lymph macie tissue was forwarded to pathology and found to be positive for metastatic disease. Hemostasis of the area of dissection was then achieved with electrocoagulation. Also Jason was applied into the axillary cavity as well as surgicel. The mastectomy bed was vigorously irrigated with sterile water and all irrigation solution was removed. Jason was applied to the mastectomy bed. A 15 Fr drain round drain was placed in the axilla and another was placed along the mastectomy bed and these drains were brought out through separate skin incisions and sutured to the skin using nylon suture. The superior and inferior skin flaps were then approximated together using interrupted vicryl suture along the dermis of the skin edges. The skin incision was then reapproximated with 4-0 monocryl in a running subcuticular fashion. Cavilon and steristrips were then placed to reinforce the skin closure and proper sterile dressings were applied. - Complications none noted - Admit VTE Documentation VTE Present on Admission: Yes VTE Mechan Device Prophylaxis: SCD's 04/29/17 1158 <Electronically signed by Hodan Chong MD> Date Hodan Chong MD CC: Ruth Clark DO; Hodan Chong MD Signed PROGRESS Observed: 04/26/2017 Status: COMPLETED Source: [place] 3:50 PM [facility] REPOSITORY HNO ID: [id number] Author: Yareli Uriarte (Pa) Service: (none) Author Type: Physician Slasher Tender Type: Progress Notes Filed: 04/27/2017 5:04 PM Note Text: FOLLOW UP VISIT - POST OP BREAST CANCER NAME: Jessica Castillo [facility] NO.: [id number] DATE OF SERVICE: 04/25/2017 : 1955 REFERRING PHYSICIAN: Ruth Clark DO Jessica is a patient I am following with Dr. Chong for left sided breast cancer. Dr. Chong performed a left mastectomy with sentinel lymph node biopsy and right prophylactic mastectomy for the patient on 04/20/17. The pathology demonstrated: FROZEN SECTION DIAGNOSIS A. Left axillary sentinel lymph nodes, biopsy: Three out of three lymph nodes positive for macrometastatic carcinoma. AM:lilibeth 04/20/17 MICROSCOPIC DIAGNOSIS A. Left axillary sentinel lymph nodes, biopsy: Three out of three lymph nodes positive for macrometastatic carcinoma. See comment. B. Left breast, mastectomy: Invasive ductal carcinoma. C. Right breast: Focal intraductal hyperplasia without atypia. Negative for carcinoma in the sections examined. D. Extra skin and tissue left breast: Negative for carcinoma. INVASIVE BREAST CANCER SUMMARY: (Including specimen A AND B) Specimen ? total breast (including nipple and skin). Procedure ? total mastectomy (including nipple and skin). Lymph node sampling ? sentinel lymph nodes Specimen integrity ? single intact specimen. Specimen laterality - left Tumor size ? 3.5 x 3.3 x 3 cm Tumor focality ? single focus of invasive carcinoma Macroscopic and Microscopic extent of tumor: Skin ? invasive carcinoma does not invade into the dermis or epidermis. Nipple ? ductal carcinoma in situ does not nipple epidermis. Skeletal muscle ? no skeletal muscle present. Ductal carcinoma in situ (DCIS) ? no ductal carcinoma in situ is present. Lobular carcinoma in situ (LCIS) ? not identified Histologic type of invasive carcinoma ? invasive ductal carcinoma (no special type). Histologic Grade (Raymon grade): Glandular/tubular differentiation - score 3 Nuclear pleomorphism - score 3 Mitotic count ? score 2 Overall grade - 3 (score of 8) Margins - Margins uninvolved by invasive carcinoma. The invasive carcinoma is 1.5 cm away from the closest posterior margin. Treatment effect: Response to presurgical (neoadjuvant) therapy - no known presurgical therapy. Lymph-Vascular invasion ? not identified Dermal lymph-vascular invasion - not identified Lymph nodes: Number of sentinel lymph nodes examined - 3 Total number of lymph nodes examined (sentinel and nonsentinel) - 3 Number of lymph nodes with macrometastases - 3 Number of lymph nodes with micrometastases and isolated tumor cells - 0 Size of largest metastatic deposit ? 3.6 cm Extranodal extension ? present, focal (0.4 cm in greatest dimension) Distance metastasis ? not applicable Additional pathologic findings ? fibrocystic changes and intraductal hyperplasia without atypia. Ancillary studies - previously performed on section of tumor ([id number] / [id number]). ER ? positive (>95%, strong) RI ? positive (variable, 0-11%, weak) Her2 bhavani ? negative (1+) Microcalcifications ? not identified Clinical history - Please make reference to previous specimen ([id number]) left breast, ultrasound-guided needle core biopsy with diagnosis of invasive ductal carcinoma. PATHOLOGIC STAGE: pT2 pN1a(sn) Mx The above summary is in compliance with [employer] [place] [employer] (CAP) Cancer Protocols Checklist and [place] Joint Committee on Cancer (AJCC), Staging Manual, 8th Ed. SJ:lilibeth 04/25/17 COMMENT A. The lymph nodes are almost completely involved by the metastatic tumor. The largest lymph node measures 3.6 cm in greatest dimension. The largest focus of metastasis measures 3.6 cm in greatest dimension. Focal extranodal distention is noted which measures 0.4 cm in greatest dimension. Case has been reviewed in consultation with Dr. Townsend who concurs with the above diagnosis. Jessica notes that she is still quite tender with pain often exceeding 6/10 in severity, has been alternating ibuprofen with her Kelley and notes that she is almost out of Kelley. The patient denies nausea. The patient`s appetite has been good. Her drain output has been gradually decreasing. VITALS: Last menstrual period 02/04/2010. On examination, the bilateral skin incisions are clean, dry, and intact. The axillary portion of the incision is clean, dry and intact. The right Newton Duarte drain and the medial left Newton-Duarte drain were removed, the left lateral MAC drain was left in place. New dressings and Shoaib wrap were applied. The patient's range of motion with her arms is good. Assessment IMPRESSION: Status Post mastectomy with sentinel lymph node biopsy for left invasive breast cancer. PLAN: Jessica may return to regular activities as tolerated with the exception of no heavy lifting. .she should continue her arm range of motion exercises. The patient may now drive as long as she is no longer taking narcotic pain medication. If she notes any difficulties, she should contact me immediately. I plan to refer her for evaluation by oncology-patient requesting Dr. Pantoja. Patient was given a refill for 10 tablets of Kelley. OARRS reviewed, refill appropriate due to continued pain greater than 6/10 and diagnosis of breast cancer. Patient instructed to alternate these with ibuprofen and transition to ibuprofen only over the next few days. Patient verbalized understanding of all above and agreed with the plan Diagnoses: (G89.18) Post-op pain (primary encounter diagnosis) (Z90.13) S/P mastectomy, bilateral Return to Clinic: The patient is instructed to follow- up with Dr. Chong in 1 week for recheck MARQUIS Allen Observed: 04/25/2017 Status: COMPLETED Source: [place] 2:45 PM [facility] REPOSITORY Office Visit (GENSWS) JESSICA RODRIGUEZ ([id number]) 1955 F Date Time Provider Department 04/25/17 2:45 PM YARELI URIARTE (PA) During your visit today, we recorded the following information about you: Yareli Uriarte PA-C 04/27/2017 5:04 PM Signed FOLLOW UP VISIT - POST OP BREAST CANCER NAME: Jessica Rodriguez CLINIC NO.: [id number] DATE OF SERVICE: 04/25/2017 : 1955 REFERRING PHYSICIAN: Ruth Clark DO Jessica is a patient I am following with Dr. Chong for left sided breast cancer. Dr. Chong performed a left mastectomy with sentinel lymph node biopsy and right prophylactic mastectomy for the patient on 04/20/17. The pathology demonstrated: FROZEN SECTION DIAGNOSIS A. Left axillary sentinel lymph nodes, biopsy: Three out of three lymph nodes positive for macrometastatic carcinoma. AM:lilibeth 04/20/17 MICROSCOPIC DIAGNOSIS A. Left axillary sentinel lymph nodes, biopsy: Three out of three lymph nodes positive for macrometastatic carcinoma. See comment. B. Left breast, mastectomy: Invasive ductal carcinoma. C. Right breast: Focal intraductal hyperplasia without atypia. Negative for carcinoma in the sections examined. D. Extra skin and tissue left breast: Negative for carcinoma. INVASIVE BREAST CANCER SUMMARY: (Including specimen A ANDamp; B) Specimen ? total breast (including nipple and skin). Procedure ? total mastectomy (including nipple and skin). Lymph node sampling ? sentinel lymph nodes Specimen integrity ? single intact specimen. Specimen laterality - left Tumor size ? 3.5 x 3.3 x 3 cm Tumor focality ? single focus of invasive carcinoma Macroscopic and Microscopic extent of tumor: Skin ? invasive carcinoma does not invade into the dermis or epidermis. Nipple ? ductal carcinoma in situ does not nipple epidermis. Skeletal muscle ? no skeletal muscle present. Ductal carcinoma in situ (DCIS) ? no ductal carcinoma in situ is present. Lobular carcinoma in situ (LCIS) ? not identified Histologic type of invasive carcinoma ? invasive ductal carcinoma (no special type). Histologic Grade (Raymon grade): Glandular/tubular differentiation - score 3 Nuclear pleomorphism - score 3 Mitotic count ? score 2 Overall grade - 3 (score of 8) Margins - Margins uninvolved by invasive carcinoma. The invasive carcinoma is 1.5 cm away from the closest posterior margin. Treatment effect: Response to presurgical (neoadjuvant) therapy - no known presurgical therapy. Lymph-Vascular invasion ? not identified Dermal lymph-vascular invasion - not identified Lymph nodes: Number of sentinel lymph nodes examined - 3 Total number of lymph nodes examined (sentinel and nonsentinel) - 3 Number of lymph nodes with macrometastases - 3 Number of lymph nodes with micrometastases and isolated tumor cells - 0 Size of largest metastatic deposit ? 3.6 cm Extranodal extension ? present, focal (0.4 cm in greatest dimension) Distance metastasis ? not applicable Additional pathologic findings ? fibrocystic changes and intraductal hyperplasia without atypia. Ancillary studies - previously performed on section of tumor ([id number] / [id number]). ER ? positive (ANDgt;95%, strong) RI ? positive (variable, 0-11%, weak) Her2 bhavani ? negative (1+) Microcalcifications ? not identified Clinical history - Please make reference to previous specimen ([id number]) left breast, ultrasound-guided needle core biopsy with diagnosis of invasive ductal carcinoma. PATHOLOGIC STAGE: pT2 pN1a(sn) Mx The above summary is in compliance with [employer] [place] [employer] (CAP) Cancer Protocols Checklist and [place] Joint Committee on Cancer (AJCC), Staging Manual, 8th Ed. SJ:lilibeth 04/25/17 COMMENT A. The lymph nodes are almost completely involved by the metastatic tumor. The largest lymph node measures 3.6 cm in greatest dimension. The largest focus of metastasis measures 3.6 cm in greatest dimension. Focal extranodal distention is noted which measures 0.4 cm in greatest dimension. Case has been reviewed in consultation with Dr. Townsend who concurs with the above diagnosis. Jessica notes that she is still quite tender with pain often exceeding 6/10 in severity, has been alternating ibuprofen with her Kelley and notes that she is almost out of Kelley. The patient denies nausea. The patient`s appetite has been good. Her drain output has been gradually decreasing. VITALS: Last menstrual period 02/04/2010. On examination, the bilateral skin incisions are clean, dry, and intact. The axillary portion of the incision is clean, dry and intact. The right Newton Duarte drain and the medial left Newton-Duarte drain were removed, the left lateral MAC drain was left in place. New dressings and Shoaib wrap were applied. The patient's range of motion with her arms is good. Assessment IMPRESSION: Status Post mastectomy with sentinel lymph node biopsy for left invasive breast cancer. PLAN: Jessica may return to regular activities as tolerated with the exception of no heavy lifting. .she should continue her arm range of motion exercises. The patient may now drive as long as she is no longer taking narcotic pain medication. If she notes any difficulties, she should contact me immediately. I plan to refer her for evaluation by oncology-patient requesting Dr. Pantoja. Patient was given a refill for 10 tablets of Kelley. OARRS reviewed, refill appropriate due to continued pain greater than 6/10 and diagnosis of breast cancer. Patient instructed to alternate these with ibuprofen and transition to ibuprofen only over the next few days. Patient verbalized understanding of all above and agreed with the plan Diagnoses: (G89.18) Post-op pain (primary encounter diagnosis) (Z90.13) S/P mastectomy, bilateral Return to Clinic: The patient is instructed to follow- up with Dr. Chong in 1 week for recheck Yareli Uriarte PA-C Referring Provider: HODAN CHONG [[id number]] Allergies As of Date: 04/25/2017 Noted Allergy Reaction IV DYE (IODINATED CONTRAST- ORAL *05/21/2006 SHELLFISH 05/21/2006 VICTOZA (LIRAGLUTIDE) 03/30/2017 5 - Intolerance Date Reviewed: 04/25/2017 Reviewed by: Roc Obrien LPN - Fully Assessed Reason for Visit: Post Op [174] Cmt: Post op mastectomy 04/20 Primary Visit Diagnosis:Post-op pain [G89.18] Other Visit Diagnosis:S/P mastectomy, bilateral [Z90.13] Order(s):HYDROcodone-acetaminophen (NORCO) 5-325 mg per tabletTake 1 tablet by mouth every 6 hours as needed for up to 3 days.Disp: 10 tabletRfl: 0 Prescriptions as of 04/25/2017 Sig: DIPHENHYDRAMINE 50 MG CAPSULE Take 1 capsule by mouth as di* OTEZLA 30 MG TABLET AFLURIA QUAD 0842-1974 (PF) 6* To be injected by Pharmacist METFORMIN ER 500 MG TABLET,EX* Take 1,000 mg by mouth once d* SUMATRIPTAN 100 MG TABLET Take 100 mg by mouth as neede* OMEPRAZOLE 40 MG CAPSULE,CARLYN* Take 40 mg by mouth once adia* METHOTREXATE SODIUM 2.5 MG TA* Take 2.5 mg by mouth as direc* HYDROXYCHLOROQUINE 200 MG TAB* Take 200 mg by mouth twice da* LEUCOVORIN CALCIUM ORAL Take 5 mg by mouth once each * RQQOLOCVHE-WRFEFTJ-RUGIGENM 5* Take 1 capsule by mouth once * TRAMADOL 50 MG TABLET Take 50 mg by mouth three lizeth* * ELETRIPTAN HBR 20 MG TABLET Take 20 mg by mouth as needed* * SAXAGLIPTIN 5 MG-METFORMIN ER* Take by mouth. * FLAXSEED OIL 1,000 MG CAPSULE Take 1 capsule by mouth once * * SIMVASTATIN 20 MG TABLET Take 1 tablet by mouth daily * * OMEPRAZOLE 20 MG CAPSULE,CARLYN* Take 1 capsule by mouth once * * LORAZEPAM 0.5 MG TABLET Take 0.5 mg by mouth once rigo* * FLUOXETINE 20 MG CAPSULE Take 20 mg by mouth once adia* * GLUCOSAMINE CHONDROITIN MAXIM* Take one(1) capsules three(3)* * ALEVE 220 MG TABLET PRN * MULTIVITAMIN TABLET Take one(1) tablet daily. * CALCIUM + D 600 MG (1,500 MG)* Take one(1) tablet twice adia* * TYLENOL EXTRA STRENGTH 500 MG* Take two(2) tablets every six* HYDROCODONE 5 MG-ACETAMINOPHE* Take 1 tablet by mouth every * Problem List As Of Date 04/25/2017 Noted Resolved Postmenopausal bleeding [N95.0] INVALID FOR* Ovarian cyst [N83.209] INVALID FOR* Prescriptions ordered this encounter Disp Refills Start End HYDROCODONE 5 MG-ACETAMINOPHEN 325 M* 10 t* 0 04/25/2017 04/28/2017 Class: Print RX Route: ORAL Sig: Take 1 tablet by mouth every 6 hours as needed for up to 3 days. Encounter Status:Closed by YARELI URIARTE PA-C on 04/27/17 12 LEAD ELECTROCARDIOGRAM Observed: 04/23/2017 Status: F Source: [place] 1:59 PM [facility] REPOSITORY [facility] Cardiovascular Services [address] [place] [address] 12 Lead EKG 04/19/17 0934 MR#: [id number] Acct: [id number] Name: JESSICA RODRIGUEZ Rep #: [id number] : 1955 62 From: Bishop Hassan MD Attending Dr: Hodan Chong MD Status: DIS CATIE Ordering Dr: Hodan Chong MD Date: 04/19/17 Location: [facility] [place] Sex: F C Admitted: 04/20/17 Test Reason : PRE OP Blood Pressure : / mmHG Vent. Rate : 066 BPM Atrial Rate : 066 BPM P-R Int : 160 ms QRS Dur : 076 ms QT Int : 408 ms P-R-T Axes : 064 081 059 degrees QTc Int : 427 ms Normal sinus rhythm Normal ECG Confirmed by BISHOP HASSAN MD ([id number]), editorial director MINERVA MCKEON ([id number]) on 04/23/2017 1:59:03 PM Referred By: Hodan Chong Confirmed By:BISHOP HASSAN MD 04/23/17 1359 Date Bishop Hassan MD CC: Ruth Clark DO; Hodan Chong MD Signed BEDSIDE GLUCOSE Collected: 04/21/2017 Status: F Source: [place] 8:40 AM [facility] REPOSITORY TYPE CODE TESTS RESULT OUT OF REFERENCE UNITS RANGE LAB L501.080 70-110 mg/dL High BEDSIDE GLU 152 Result Comment: MANAGEMENT OF PATIENT CARE PER NURSING PROTOCOL Performed By: #### L501.080 #### [facility] Point of Care [address] [place] [address] DISCHARGE INSTRUCTION Observed: 04/21/2017 Status: F Source: [place] 7:43 AM [facility] REPOSITORY [facility] Medical Records Department [address] [place] [address] Instructions for Home/Discharge Instructions 04/21/17 0741 MR#: [id number] Acct: [id number] Name: JESSICA RODRIGUEZ Rep #: [id number] : 1955 62 From: Hodan Chong MD PCP: Ruth Clark DO Status: ADM CATIE Discharge Diet: No Restrictions Discharge Activity: Return to Normal Activity, May not drive while taking narcotic pain medications. Lifting Restrictions: no lifting with left arm greater than 20 pounds Call your doctor if your incision/area has: Continuous Slow Oozing, Foul Smelling Discharge Call your doctor if you observe: Fever of 101 or Higher Additional Dressing/Incision Instructions:: Leave dressing in place. Sponge bathe only. Empty MAC drains as instructed Allergies/Adverse Reactions: Allergies shellfish derived Allergy (Mild, Verified 04/18/17 14:00) Hives iodine Allergy (Verified 04/18/17 14:00) Hives liraglutide [From Victoza] Adverse Reaction (Verified 04/20/17 09:38) Nausea, VOMITING IV DYE Allergy (Mild, Uncoded 04/18/17 14:00) Hives Medications to take at Discharge Butalbital/Aspirin/Caffeine [Fiorinal 50-325-40 mg Capsule] 1 tab PO DAILY PRN PRN 03/21/13 Fluoxetine [Prozac] 20 mg PO DAILY 03/21/13 Multivitamins,Therapeutic [Multivitamin] 1 tablet PO QHS 03/21/13 Omeprazole [Prilosec] 40 mg PO DAILY 03/21/13 Acetaminophen [Tylenol Extra Strength] 500 - 1,000 mg PO Q6H PRN PRN 04/18/17 Apremilast [Otezla] 30 mg PO BID 04/18/17 Ascorbic Acid [Vitamin C] 500 mg PO MOWEFR 04/18/17 Aspirin/Acetaminophen/Caffeine [Excedrin Migraine Caplet] 1 each PO PRN PRN 04/18/17 Calm Day 3 cap PO DAILY 04/18/17 Cholecalciferol (Vitamin D3) [Vitamin D3] 4,000 unit PO MOWEFR 04/18/17 Ibuprofen 400 mg PO PRN PRN 04/18/17 Melatonin [Melatin] 6 mg PO QHS 04/18/17 Metformin HCl 500 mg PO BID 04/18/17 Cephalexin [Keflex] 500 mg PO Q12 #20 cap 04/20/17 Hydrocodone Bitart/Apap 5-325 [Kelley 5MG-325MG] 1 tab PO Q6H PRN PRN 7 Days #20 tab 04/20/17 The following prescriptions were given: Hydrocodone Bitart/Apap 5-325 [Kelley 5MG-325MG] 1 tab PO Q6H PRN PRN 7 Days #20 tab PRN Reason: Severe Pain (6-11/21) Cephalexin [Keflex] 500 mg PO Q12 #20 cap Please Follow Up With: Yareli Uriarte PA-C - call When: Follow up next Sunday or Sunday, call for date and time, thank you 04/21/17 7234 <Electronically signed by Hodan Chong MD> Date Hodan Chong MD CC: Ruth Clark DO BEDSIDE GLUCOSE Collected: 04/20/2017 Status: F Source: [place] 4:05 PM [facility] REPOSITORY TYPE CODE TESTS RESULT OUT OF REFERENCE UNITS RANGE LAB L501.080 70-110 mg/dL High BEDSIDE GLU 162 Result Comment: MANAGEMENT OF PATIENT CARE PER NURSING PROTOCOL Performed By: #### L501.080 #### [facility] Point of Care [address] [place] [address] OPERATIVE REPORT Observed: 04/20/2017 Status: F Source: [place] 2:58 PM [facility] REPOSITORY [facility] Medical Records Department [address] [place] [address] Operative Report 04/20/17 1454 MR#: [id number] Acct: [id number] Name: ERMAJESSICA LANGLEY Jonathan Rep #: [id number] : 1955 62 From: Palmer Hawkins MD PCP: Ruth Clark DO Status: REG [facility] [place] [facility] Location: [place] [address] Report of Operation Date of Procedure: 04/20/17 Pre-Operative Diagnosis: left breast cancer Post-Operative Diagnosis: same Surgery/Procedure Performed:: right simple mastectomy human resources safety manager: Brittny Mccullough Type of Anesthesia:: General Anesthesiologist: Trung Mills Specimen's removed: right breast Drains: 15 Fr round [...] and incisions were made . Dissection was carried superior laterally down to the pectoralis muscle and dissection extended towards the axilla. Superior and inferior flaps were completed and raised. The breast tissue was taken down to the pectoralis fascia. The inferior portion of breast was then removed from the intercostal musculature and dissection carried superior laterally dividing the superficial tissues leading up to the axillary dissection . The specimen was sent whole . 1 Newton-Duarte drain were placed in the medial along the skin flap the lateral in the axilla and secured with 3-0 nylon suture. Skin flaps were approximated interrupted 3-0 Vicryls. Skin was closed with running 4-0 monocryl. Drain dressings and incisional dressings were placed. All sponge and instrument counts were correct. The patient was extubated and brought to recovery room in stable condition. 04/20/17 1458 <Electronically signed by Palmer Hawkins MD> Date Palmer Hawkins MD CC: Ruth Clark DO; Hodan Chong MD; Palmer Hawkins MD Signed BEDSIDE GLUCOSE Collected: 04/20/2017 Status: F Source: [place] 9:32 AM [facility] REPOSITORY TYPE CODE TESTS RESULT OUT OF REFERENCE UNITS RANGE LAB L501.080 70-110 mg/dL High BEDSIDE GLU 137 Result Comment: MANAGEMENT OF PATIENT CARE PER NURSING PROTOCOL Performed By: #### L501.080 #### [facility] Point of Care [address] [place] [address] AXILLARY NODE BIOPSY Observed: 04/20/2017 Status: F Source: [place] 12:00 AM [facility] REPOSITORY Patient: JESSICA RODRIGUEZ : 1955 (62/F) Acct Num: [id number] Phys: Castillo MCMILLAN,Hodan Unit Num: [id number] Loc: MS3 [id number] Specimen: [id number] Received: 04/20/17 - 1316 Spec Type: AX NODE BX TISSUES TISSUES: A. Axillary lymph node, NOS B. Left breast, NOS C. Right breast, NOS D. Left breast, NOS - EXTRA TISSUE ADDENDUM Addendum Number 1 Regional lymphadenopathy of left axillary contents was performed ([id number]) and shows rare metastatic tumor cells in one of seven lymph nodes. Case has been reviewed in consultation with Dr. Skinner who concurs with the above diagnosis. IDC:SJ Addendum Signed Sotero Townsend 05/30/17 <signature on file> COMMENT A. The lymph nodes are almost completely involved by the metastatic tumor. The largest lymph node measures 3.6 cm in greatest dimension. The largest focus of metastasis measures 3.6 cm in greatest dimension. Focal extranodal distention is noted which measures 0.4 cm in greatest dimension. Case has been reviewed in consultation with Dr. Townsend who concurs with the above diagnosis. IDC:AM FROZEN SECTION DIAGNOSIS A. Left axillary sentinel lymph nodes, biopsy: Three out of three lymph nodes positive for macrometastatic carcinoma. AM: 04/20/17 GROSS DESCRIPTION A - Received fresh for frozen section consultation labeled with the patient's name is a specimen designated left axillary sentinel lymph nodes. The specimen consists of bagley-white, firm soft tissue measuring 6.5 x 5 x 2 cm. Dissection reveals three firm nodules ranging in size from 1.2 to 3.6 cm. Failure Analysis Engineer sections of the nodules are submitted for frozen section consultation in three blocks (one nodule section per block). Additional sections of each nodule are submitted in blocks 4-6 with each nodule inked a different color. / AM: 04/20/17 B - Received in fixative is one container labeled with the patient's name and designated left breast. The specimen consists of a mastectomy specimen measuring 22 x 21 x 9 cm and weighing 1207 gm. Skin measures 20 x 8 cm. Nipple is central and no skin lesions. The specimen is differentially inked as follows : superior blue, inferior green and posterior black. The nipple and areola is grossly unremarkable. No cutaneous lesions are identified. Serial sections reveal a firm, bagley-white mass measuring 3.5 x 3.3 x 3 cm located 1.5 cm from the closest (posterior) margin of excision. The mass is present in the deep central portion of the breast. The remainder of the breast parenchyma is bagley-yellow with focal white streaks. No other mass lesions are identified. Failure Analysis Engineer sections are submitted in 12 cassettes as follows: 1 nipple and perpendicular posterior margin, 2 - perpendicular superior and inferior margins, 3 perpendicular medial margin, 4 perpendicular lateral margin, 5-8 tumor, 912 - hotel services sales representative sections of uninvolved breast parenchyma. / AM:lilibeth 04/20/17 C - Received in fixative is one container labeled with the patient's name and designated right breast. The specimen consists of a mastectomy specimen measuring 25 x 18 x 9.5 cm and weighing 1064 gm. The specimen is differentially inked as follows: superior blue, inferior green and posterior black. The nipple and areola is grossly unremarkable. No cutaneous lesions are identified. Serial sections reveal homogenous yellow cut surfaces without mass lesions. Failure Analysis Engineer sections are submitted in nine cassettes as follows: 1 nipple and areola, 2 perpendicular superior and inferior margins, 3 perpendicular posterior margin, 4 perpendicular medial margin, 5 perpendicular lateral margin, 69 - hotel services sales representative sections of breast parenchyma. / AM: 04/20/17 D - Received in fixative is one container labeled with the patient's name and designated extra skin and tissue, left breast. The specimen consists of multiple variable size pieces of skin and underlying adipose tissue and separate pieces of fibroadipose tissue that in aggregate measure 15 x 8 x 3 cm. The skin surface appears unremarkable. Sections do not reveal any mass lesion. Failure Analysis Engineer sections are submitted in three cassettes. Cassette 1 contains the skin and underlying tissue. / SJ:lilibeth 04/23/17 TC:0 CPT: 42790 x3, 74677, 02245, 14994 x2 HEADER OPERATION: Left breast mastectomy, left axillary sentinel node biopsy with Neoprobe PRE-OP DIAGNOSIS: Malignant neoplasm of upper outer quadrant of left breast, ER positive TISSUE SUBMITTED: A Left breast sentinel nodes, FS, B Left breast, C Right breast suture at tail of Chung, D Extra skin and tissue left breast MICROSCOPIC DESCRIPTION Slides are reviewed. MICROSCOPIC DIAGNOSIS A. Left axillary sentinel lymph nodes, biopsy: Three out of three lymph nodes positive for macrometastatic carcinoma. See comment. B. Left breast, mastectomy: Invasive ductal carcinoma. C. Right breast: Focal intraductal hyperplasia without atypia. Negative for carcinoma in the sections examined. D. Extra skin and tissue left breast: Negative for carcinoma. INVASIVE BREAST CANCER SUMMARY: (Including specimen A AND B) Specimen total breast (including nipple and skin). Procedure total mastectomy (including nipple and skin). Lymph node sampling sentinel lymph nodes Specimen integrity single intact specimen. Specimen laterality - left Tumor size 3.5 x 3.3 x 3 cm Tumor focality single focus of invasive carcinoma Macroscopic and Microscopic extent of tumor: Skin invasive carcinoma does not invade into the dermis or epidermis. Nipple ductal carcinoma in situ does not nipple epidermis. Skeletal muscle no skeletal muscle present. Ductal carcinoma in situ (DCIS) no ductal carcinoma in situ is present. Lobular carcinoma in situ (LCIS) not identified Histologic type of invasive carcinoma invasive ductal carcinoma (no special type). Histologic Grade (Raymon grade): Glandular/tubular differentiation - score 3 Nuclear pleomorphism - score 3 Mitotic count score 2 Overall grade - 3 (score of 8) Margins - Margins uninvolved by invasive carcinoma. The invasive carcinoma is 1.5 cm away from the closest posterior margin. Treatment effect: Response to presurgical (neoadjuvant) therapy - no known presurgical therapy. Lymph-Vascular invasion not identified Dermal lymph-vascular invasion - not identified Lymph nodes: Number of sentinel lymph nodes examined - 3 Total number of lymph nodes examined (sentinel and nonsentinel) - 3 Number of lymph nodes with macrometastases - 3 Number of lymph nodes with micrometastases and isolated tumor cells - 0 Size of largest metastatic deposit 3.6 cm Extranodal extension present, focal (0.4 cm in greatest dimension) Distance metastasis not applicable Additional pathologic findings fibrocystic changes and intraductal hyperplasia without atypia. Ancillary studies - previously performed on section of tumor ([id number] / GR24- 495). ER positive (>95%, strong) RI positive (variable, 0-11%, weak) Her2 bhavani negative (1+) Microcalcifications not identified Clinical history - Please make reference to previous specimen ([id number]) left breast, ultrasound-guided needle core biopsy with diagnosis of invasive ductal carcinoma. PATHOLOGIC STAGE: pT2 pN1a(sn) Mx The above summary is in compliance with [employer] [place] [employer] (CAP) Cancer Protocols Checklist and [place] Joint Committee on Cancer (AJCC), Staging Manual, 8th Ed. SJ:lilibeth 04/25/17 Signed Ildefonso Brody 04/25/17 <signature on file> Performed By: #### VITA #### [facility] [address] [place], [place], [address] CBC-COMPLETE BLOOD CNT Collected: 04/19/2017 Status: F Source: [place] NO DIFF 9:17 AM [facility] REPOSITORY TYPE CODE TESTS RESULT OUT OF RANGE REFERENCE UNITS LAB L100.1000 4.4-11.0 K/mm3 Normal WBC 8.1 LAB L100.1200 4.2-5.4 M/mm3 Normal RBC 4.89 LAB L100.1300 12.0-15.0 g/dl Normal HGB 13.8 LAB L100.1400 37-47 % Normal HCT 42.2 LAB L100.1500 81-99 fL Normal MCV 86.3 LAB L100.1600 27.0-32.0 pg Normal MCH 28.2 LAB L100.1700 32-36 g/gl Normal MCHC 32.7 LAB L100.1810 11.6-14.6 % Normal RDW CV 13.2 LAB L100.1820 35.1-43.9 fl Normal RDW SD 41.5 LAB L100.1900 150-450 K/mm3 Normal PLT 261 LAB L100.2000 6.2-12.0 fl Normal MPV 9.4 Performed By: #### L100.0500 #### [facility] [address] [place], [place], [address] BASIC METABOLIC Collected: 04/19/2017 Status: F Source: [place]YLLIS PROFILE (BMP) 9:17 AM [facility] REPOSITORY TYPE CODE TESTS RESULT OUT OF RANGE REFERENCE UNITS LAB L501.0100 74-106 mg/dL High GLU 129 Result Comment: Fasting Glucose result greater than or equal to 126 mg/dL suggests DIABETES MELLITUS per A.D.A. criteria. Please note revised GLUCOSE reference range effective 2017. LAB L501.1000 7-18 mg/dL Normal BUN 14 LAB L501.1100 0.55-1.02 mg/dL Normal CREAT,SERUM 0.59 Result Comment: The validity of the calculated GFR AND GFRAA in patients over 70 years has not been determined. Clinical correlation is essential. LAB L501.1110 >60 mL/min Normal EST GFR 110 Result Comment: Non- GFR Calc LAB L501.1115 >60 mL/min Normal EST GFR - AA 134 Result Comment: GFR Calc LAB L501.1300 10-20 RATIO High BUN/CRE 23.9 LAB L501.2200 8.5-10.1 mg/dL CA Normal 9.0 LAB L501.5300 136-145 mmol/L NA Normal 141 LAB L501.5600 3.5-5.1 mmol/L K Normal 3.9 LAB L501.5900 98-107 mmol/L CL Normal 103 LAB L501.6100 21.0-32.0 mmol/L Normal CO2 29.0 LAB L501.6200 5-15 Normal GAP 9 Performed By: #### L500.2500 #### [facility] [address] [place], [place], [address] HEMOGLOBIN A1C Collected: 04/19/2017 Status: F Source: [place] 9:17 AM [facility] REPOSITORY TYPE CODE TESTS RESULT OUT OF RANGE REFERENCE UNITS LAB L501.9985 4.2-6.3 % Normal HGB A1C 6.3 Performed By: #### L501.9985 #### [facility] [address] [place], [address] PROGRESS Observed: 04/13/2017 Status: COMPLETED Source: [place] 7:35 AM [facility] [place] REPOSITORY O ID: [id number] Author: Hodan Chong Service: (none) Author Type: Physician Type: Progress Notes Filed: 04/15/2017 3:39 PM Note Text: HPI: Jessica is a pleasant 61 year old female who presents with abnormal left breast mammograms/US. Had previous left breast biopsy - needle core - 05/23/10. US - 3 cm irregular high density mass with a microlobulated margin in the left breast at 12:00 - middle depth, also axillary adenopathy Patient notes increased density of the left breast. Also just recently noted erythema of skin. Also notes flattening of the nipple in this location. Denies nipple discharge. Pathology of biopsy done 04/05/17: Invasive ductal carcinoma, nuclear grade 3 (1 cm in greatest length). ER (clone 6F11) >95%, RI variable, 0-11%, Her 2 neg PAST MEDICAL HISTORY - Diverticulosis of colon with hemorrhage - Personal history of colonic polyps - PMH - PAST MEDICAL HISTORY OF SPASTIC COLON - Psoriatic arthritis (HCC) - Tension headache - Type II or unspecified type diabetes mellitus without mention of complication, not stated as uncontrolled PAST SURGICAL HISTORY - COLONOSCOP W/ OR W/O [facility] SPEC 2000 Colonoscopy - COLONOSCOP W/ OR W/O [facility] SPEC 12/09/2012 Colonoscopy - EGD W/O OR W/BRUSH/WASH 12/09/2012 EGD - EXCIS BREAST LESION Left breast - HYSTEROSCOPY WBX WWO D AND C ANDOR POLYPECTOMY 2011 PMB- polyps - LIGATE FALLOPIAN TUBE - PAST SURGICAL HISTORY OF cyst removed from back PAST INJURIES Denies head injuries, denies history of fractures Current Outpatient Prescriptions: OTEZLA 30 mg tablet AFLURIA QUAD [id number], PF, 60 mcg/0.5 mL syrg To be injected by Pharmacist metFORMIN ER (GLUCOPHAGE XR) 500 mg 24 hr tablet Take 1,000 mg by mouth once daily. SUMAtriptan (IMITREX) 100 mg tablet Take 100 mg by mouth as needed. Omeprazole (PRILOSEC) 40 mg capsule Take 40 mg by mouth once daily. methotrexate 2.5 mg tablet Take 2.5 mg by mouth as directed. Pt is taking 6 tablets, once weekly hydroxychloroquine (PLAQUENIL) 200 mg tablet Take 200 mg by mouth twice daily. LEUCOVORIN CALCIUM ORAL Take 5 mg by mouth once each week. Pt takes this the day after taking methotrexate. uscjyrk-lmpbauhw-tarfbsyfrg capsule Take 1 capsule by mouth once daily as needed. traMADol 50 mg tablet Take 50 mg by mouth three times daily as needed. eletriptan (RELPAX) 20 mg tablet Take 20 mg by mouth as needed. may repeat in 2 hours if necessary saxagliptin-metFORMIN (KOMBIGLYZE XR) 5-1,000 mg TM24 Take by mouth. Flaxseed Oil 1,000 mg ORAL Cap Take 1 capsule by mouth once daily. simvastatin (ZOCOR) 20 mg ORAL tablet Take 1 tablet by mouth daily at bedtime. omeprazole (PRILOSEC) 20 mg ORAL capsule Take 1 capsule by mouth once daily. LORazepam 0.5 mg ORAL Tab Take 0.5 mg by mouth once daily as needed. fluoxetine 20 mg ORAL capsule Take 20 mg by mouth once daily. gluc perez/chondro perez a/vit c/mn(GLUCOSAMINE CHONDROITIN MAXIMUM STRENGTH 500 MG-400 MG CAP) Take one(1) capsules three(3) times daily.. naproxen sodium(ALEVE 220 MG TAB) PRN MULTIVITAMIN TAB Take one(1) tablet daily. CALCIUM + D 600 MG-200 UNIT TAB Take one(1) tablet twice daily. TYLENOL EXTRA STRENGTH 500 MG TAB Take two(2) tablets every six(6) hours as needed for pain. ALLERGIES: Iodine; Iv Dye [Iodinated Contrast- Oral And Iv Dye]; Shellfish; Victoza [Liraglutide] PERSONAL HISTORY: Social History Marital status: Spouse name: Niles Years of education: 16 Number of children: 0 Occupational History Occupation Employer Comment [employer] Social History Main Topics Smoking status: Passive Smoke Exposure - Never Smoker Packs/day: 0.00 Years: 0.00 Smokeless status: Never Used Comment: smokes socially Alcohol use: No Drug use: No Sexual activity: Not Currently Partners with: Male control/protection: Tubal Ligation FAMILY HISTORY - Diabetes Father - Heart Father - Breast Cancer Maternal Grandmother - Prostate Cancer Maternal Grandfather - Osteoporosis Mother - Osteoporosis Sister - Hypertension Sister - Lipids Father - Arthritis Mother - GI Mother IBS REVIEW OF SYSTEMS: General: The patient denies fatigue, denies weight loss, denies weight gain, denies feeling hot, and denies feelings of cold. Eyes: The patient denies glaucoma, denies eye injury/surgery, wears glasses or contacts. Ear/Nose/Throat: The patient denies allergies, denies hayfever, denies ear infections, and denies bloody noses. Cardiovascular:denies chest pain, denies heart disease, denies high blood pressure,denies cardiac stent, denies prior heart attack, denies irregular heart beat, denies high cholesterol, denies poor circulation, denies heart failure, other cardiac issues, denies claudication, denies cold feet, denies peripheral arterial stent. Respiratory: The patient denies tuberculosis, denies pneumonia, denies frequent cough, denies pulmonary embolism, denies shortness of breath, and denies coughing up blood. Gastrointestinal: had last colonoscopy Feb 2017, denies difficulty swallowing, NOTES acid reflux, denies ulcers, denies vomiting, denies jaundice/hepatitis, denies gallbladder problems, denies black or tarry stools, denies hemorrhoids, denies bleeding from rectum, denies diverticulitis, denies constipation, denies diarrhea, denies loss of stool control, and denies hernias. Kidney/Bladder: The patient denies kidney stones, denies urine infections, and denies bloody urine. Skin: The patient denies a history of skin cancer, denies bleeding/changing moles, and denies a history of skin rash. Neurologic:has tension headaches, denies seizures, denies head/spinal injuries, and denies stroke/TIA. Psychiatric: The patient denies psychiatric medications, NOTES depression, and denies voices, denies substance abuse. Endocrine: The patient denies thyroid disorders, NOTES diabetes, and denies hormonal problems. Hematologic: The patient denies a history of bruising, denies bleeding, and denies anemia, denies blood clots. Infections: The patient denies a history of measles and mumps, denies rheumatic fever, and denies sexually transmitted diseases. Musculoskeletal: has osteoarthritis of shoulders, denies back pain/injury, denies back problems, denies sciatica, denies knee/foot trouble, NOTES arthritis, or denies gout. Obstetrical: menarche onset at age 13, had shots to induce normal menstrual periods then started on hormones at age 16 and continued until age 19 and then begun on BCP - all to aid in normalizing menstrual periods, patient had normal menstrual periods starting at age 42, menopause around age 52 PHYSICAL EXAMINATION: General: The patient is 61 year old female, well nourished, well hydrated in no acute distress. The patient is oriented to time, place, and person. VITALS: Blood pressure 138/62, pulse 64, weight 88.5 kg (195 lb). Body mass index is 36.25 kg/(m2) Head ? Normocephalic. EOM intact with sclera clear and no icterus noted. Mouth with mucus membranes moist. Neck - supple with no jugular venous distention noted. Trachea is midline. No carotid bruits noted. No thyroid enlargement or thyroid nodules detected. No masses noted. Chest/breast ? no asymmetry of breasts noted, slight erythema to skin medially, no nipple discharge and both nipples everted though left nipple is less everted than right, nodular breast tissue palpated bilaterally, dense specific area of left breast at 10 to 11 oclock near areolar border but not discrete - well healed incisional site Lungs ? clear to auscultation. Normal breath sounds. No rales/rhonchi/wheezing noted. No labored breathing noted, such as retractions. No cough heard. Heart ? normal S1 and S2 auscultated. No rubs/clicks/murmurs noted. Regular rate. Abdomen ? soft and benign. Normal bowel sounds. No abdominal bruits noted. Difficult to determine if any masses or organomegaly due to body habitus. Extremities ? no calf tenderness noted. No pitting edema noted. Skin ? normal skin integrity. Lymph ? no cervical adenopathy detected, no supraclavicular adenopathy detected, no axillary adenopathy detected Neurological ? gait normal, no focal deficits Psych ? calm and appropriate RADIOLOGIC STUDIES: As Noted Assessment IMPRESSION: newly diagnosed left breast cancer, invasive ductal, ER/RI positive, Her2 negative PLAN: I have discussed the above with the patient and her . I had discussed in the last visit - surgical options of treatment - lumpectomy followed by XRT versus mastectomy. I have described both procedure to the patient and briefly described radiation therapy treatment. Patient wishes to undergo mastectomy. She also wishes to proceed with prophylactic right breast mastectomy. I have counseled patient that prophylactic mastectomy is not shown to improve survival for contralateral breast cancer. However, patient states that she doesn't want to have to worry about the other breast for developing cancer whatsoever. I have recommended that we proceed with both mastectomies to be done by two surgeons, with Dr. Hawkins performing the prophylactic right mastectomy, patient is in agreement to this. I have described the procedure of sentinel lymph node biopsy and how it is done with blue and radioactive dye. I have also asked patient that if the lymph nodes are positive, would she wish to proceed with full axillary lymph node dissection versus radiation therapy to the axilla. I have explained how each is done and the risks/benefits of each, patient prefers the latter. I have counseled the patient as to the risks of the procedure, including but not limited to: infection, bleeding, injury to any blood vessels/nerves, scar tissue, injury to the lymphatics resulting in lymph leak and/or persistant seroma, injury to second intercostal brachial/thoracodorsal/long thoracic nerves and their sequelae, persistent seroma, wound breakdown, wound infections, cosmetic deformity, complications of anesthesia, other perioperative morbidities such as CVA/IA/PE/pneumonia, etc. ? the patient understands. The patient wishes to proceed. Will schedule for surgery at [facility]. Use of blue and radioactive dye localization for identification of sentinel lymph nodes discussed with patient. Dr. Hawkins is available for prophylactic right breast mastectomy. I have answered all questions to the patient?s satisfaction and the patient has no further questions. Greater than 50% of this patient encounter was dedicated to face to face discussion with the patient. . Diagnoses: (C50.412, Z17.0) Malignant neoplasm of upper-outer quadrant of left breast in female, estrogen receptor positive (HCC) (primary encounter diagnosis) Hodan Chong MD CNOV Observed: 04/11/2017 Status: COMPLETED Source: [place] 1:50 PM [facility] REPOSITORY Office Visit (GENSWS) MICHAELJESSICA Jonathan ([id number]) 1955 F Date Time Provider Department 04/11/17 1:50 PM HODAN CHONG During your visit today, we recorded the following information about you: Hodan Chong MD 04/15/2017 3:39 PM Signed HPI: Jessica is a pleasant 61 year old female who presents with abnormal left breast mammograms/US. Had previous left breast biopsy - needle core - 05/23/10. US - 3 cm irregular high density mass with a microlobulated margin in the left breast at 12:00 - middle depth, also axillary adenopathy Patient notes increased density of the left breast. Also just recently noted erythema of skin. Also notes flattening of the nipple in this location. Denies nipple discharge. Pathology of biopsy done 04/05/17: Invasive ductal carcinoma, nuclear grade 3 (1 cm in greatest length). ER (clone 6F11) ANDgt;95%, RI variable, 0-11%, Her 2 neg PAST MEDICAL HISTORY - Diverticulosis of colon with hemorrhage - Personal history of colonic polyps - PMH - PAST MEDICAL HISTORY OF SPASTIC COLON - Psoriatic arthritis (HCC) - Tension headache - Type II or unspecified type diabetes mellitus without mention of complication, not stated as uncontrolled PAST SURGICAL HISTORY - COLONOSCOP W/ OR W/O [facility] SPEC 2000 [facility] - [facility] Colonoscopy - EGD W/O OR W/BRUSH/WASH 12/09/2012 EGD - EXCIS BREAST LESION Left breast - HYSTEROSCOPY WBX WWO D AND C ANDOR POLYPECTOMY 2011 PMB- polyps - LIGATE FALLOPIAN TUBE - PAST SURGICAL HISTORY OF cyst removed from back PAST INJURIES Denies head injuries, denies history of fractures Current Outpatient Prescriptions: OTEZLA 30 mg tablet AFLURIA QUAD [id number], PF, 60 mcg/0.5 mL syrg To be injected by Pharmacist metFORMIN ER (GLUCOPHAGE XR) 500 mg 24 hr tablet Take 1,000 mg by mouth once daily. SUMAtriptan (IMITREX) 100 mg tablet Take 100 mg by mouth as needed. Omeprazole (PRILOSEC) 40 mg capsule Take 40 mg by mouth once daily. methotrexate 2.5 mg tablet Take 2.5 mg by mouth as directed. Pt is taking 6 tablets, once weekly hydroxychloroquine (PLAQUENIL) 200 mg tablet Take 200 mg by mouth twice daily. LEUCOVORIN CALCIUM ORAL Take 5 mg by mouth once each week. Pt takes this the day after taking methotrexate. rzlhipj-wjcoxodp-nytkvbbgmr capsule Take 1 capsule by mouth once daily as needed. traMADol 50 mg tablet Take 50 mg by mouth three times daily as needed. eletriptan (RELPAX) 20 mg tablet Take 20 mg by mouth as needed. may repeat in 2 hours if necessary saxagliptin-metFORMIN (KOMBIGLYZE XR) 5-1,000 mg TM24 Take by mouth. Flaxseed Oil 1,000 mg ORAL Cap Take 1 capsule by mouth once daily. simvastatin (ZOCOR) 20 mg ORAL tablet Take 1 tablet by mouth daily at bedtime. omeprazole (PRILOSEC) 20 mg ORAL capsule Take 1 capsule by mouth once daily. LORazepam 0.5 mg ORAL Tab Take 0.5 mg by mouth once daily as needed. fluoxetine 20 mg ORAL capsule Take 20 mg by mouth once daily. gluc perez/chondro perez a/vit c/mn(GLUCOSAMINE CHONDROITIN MAXIMUM STRENGTH 500 MG-400 MG CAP) Take one(1) capsules three(3) times daily.. naproxen sodium(ALEVE 220 MG TAB) PRN MULTIVITAMIN TAB Take one(1) tablet daily. CALCIUM + D 600 MG-200 UNIT TAB Take one(1) tablet twice daily. TYLENOL EXTRA STRENGTH 500 MG TAB Take two(2) tablets every six(6) hours as needed for pain. 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 Social History Main Topics Smoking status: Passive Smoke Exposure - Never Smoker Packs/day: 0.00 Years: 0.00 Smokeless status: Never Used Comment: smokes socially Alcohol use: No Drug use: No Sexual activity: Not Currently Partners with: Male control/protection: Tubal Ligation FAMILY HISTORY - Diabetes Father - Heart Father - Breast Cancer Maternal Grandmother - Prostate Cancer Maternal Grandfather - Osteoporosis Mother - Osteoporosis Sister - Hypertension Sister - Lipids Father - Arthritis Mother - GI Mother IBS REVIEW OF SYSTEMS: General: The patient denies fatigue, denies weight loss, denies weight gain, denies feeling hot, and denies feelings of cold. Eyes: The patient denies glaucoma, denies eye injury/surgery, wears glasses or contacts. Ear/Nose/Throat: The patient denies allergies, denies hayfever, denies ear infections, and denies bloody noses. Cardiovascular:denies chest pain, denies heart disease, denies high blood pressure,denies cardiac stent, denies prior heart attack, denies irregular heart beat, denies high cholesterol, denies poor circulation, denies heart failure, other cardiac issues, denies claudication, denies cold feet, denies peripheral arterial stent. Respiratory: The patient denies tuberculosis, denies pneumonia, denies frequent cough, denies pulmonary embolism, denies shortness of breath, and denies coughing up blood. Gastrointestinal: had last colonoscopy Feb 2017, denies difficulty swallowing, NOTES acid reflux, denies ulcers, denies vomiting, denies jaundice/hepatitis, denies gallbladder problems, denies black or tarry stools, denies hemorrhoids, denies bleeding from rectum, denies diverticulitis, denies constipation, denies diarrhea, denies loss of stool control, and denies hernias. Kidney/Bladder: The patient denies kidney stones, denies urine infections, and denies bloody urine. Skin: The patient denies a history of skin cancer, denies bleeding/changing moles, and denies a history of skin rash. Neurologic:has tension headaches, denies seizures, denies head/spinal injuries, and denies stroke/TIA. Psychiatric: The patient denies psychiatric medications, NOTES depression, and denies voices, denies substance abuse. Endocrine: The patient denies thyroid disorders, NOTES diabetes, and denies hormonal problems. Hematologic: The patient denies a history of bruising, denies bleeding, and denies anemia, denies blood clots. Infections: The patient denies a history of measles and mumps, denies rheumatic fever, and denies sexually transmitted diseases. Musculoskeletal: has osteoarthritis of shoulders, denies back pain/injury, denies back problems, denies sciatica, denies knee/foot trouble, NOTES arthritis, or denies gout. Obstetrical: menarche onset at age 13, had ANDquot;shotsANDquot; to induce normal menstrual periods then started on hormones at age 16 and continued until age 19 and then begun on BCP - all to aid in normalizing menstrual periods, patient had normal menstrual periods starting at age 42, menopause around age 52 PHYSICAL EXAMINATION: General: The patient is 61 year old female, well nourished, well hydrated in no acute distress. The patient is oriented to time, place, and person. VITALS: Blood pressure 138/62, pulse 64, weight 88.5 kg (195 lb). Body mass index is 36.25 kg/(m2) Head ? Normocephalic. EOM intact with sclera clear and no icterus noted. Mouth with mucus membranes moist. Neck - supple with no jugular venous distention noted. Trachea is midline. No carotid bruits noted. No thyroid enlargement or thyroid nodules detected. No masses noted. Chest/breast ? no asymmetry of breasts noted, slight erythema to skin medially, no nipple discharge and both nipples everted though left nipple is less everted than right, nodular breast tissue palpated bilaterally, dense specific area of left breast at 10 to 11 oclock near areolar border but not discrete - well healed incisional site Lungs ? clear to auscultation. Normal breath sounds. No rales/rhonchi/wheezing noted. No labored breathing noted, such as retractions. No cough heard. Heart ? normal S1 and S2 auscultated. No rubs/clicks/murmurs noted. Regular rate. Abdomen ? soft and benign. Normal bowel sounds. No abdominal bruits noted. Difficult to determine if any masses or organomegaly due to body habitus. Extremities ? no calf tenderness noted. No pitting edema noted. Skin ? normal skin integrity. Lymph ? no cervical adenopathy detected, no supraclavicular adenopathy detected, no axillary adenopathy detected Neurological ? gait normal, no focal deficits Psych ? calm and appropriate RADIOLOGIC STUDIES: As Noted Assessment IMPRESSION: newly diagnosed left breast cancer, invasive ductal, ER/RI positive, Her2 negative PLAN: I have discussed the above with the patient and her . I had discussed in the last visit - surgical options of treatment - lumpectomy followed by XRT versus mastectomy. I have described both procedure to the patient and briefly described radiation therapy treatment. Patient wishes to undergo mastectomy. She also wishes to proceed with prophylactic right breast mastectomy. I have counseled patient that prophylactic mastectomy is not shown to improve survival for contralateral breast cancer. However, patient states that she doesn't want to have to worry about the other breast for developing cancer whatsoever. I have recommended that we proceed with both mastectomies to be done by two surgeons, with Dr. Hawkins performing the prophylactic right mastectomy, patient is in agreement to this. I have described the procedure of sentinel lymph node biopsy and how it is done with blue and radioactive dye. I have also asked patient that if the lymph nodes are positive, would she wish to proceed with full axillary lymph node dissection versus radiation therapy to the axilla. I have explained how each is done and the risks/benefits of each, patient prefers the latter. I have counseled the patient as to the risks of the procedure, including but not limited to: infection, bleeding, injury to any blood vessels/nerves, scar tissue, injury to the lymphatics resulting in lymph leak and/or persistant seroma, injury to second intercostal brachial/thoracodorsal/long thoracic nerves and their sequelae, persistent seroma, wound breakdown, wound infections, cosmetic deformity, complications of anesthesia, other perioperative morbidities such as CVA/IA/PE/pneumonia, etc. ? the patient understands. The patient wishes to proceed. Will schedule for surgery at [facility]. Use of blue and radioactive dye localization for identification of sentinel lymph nodes discussed with patient. Dr. Hawkins is available for prophylactic right breast mastectomy. I have answered all questions to the patient?s satisfaction and the patient has no further questions. Greater than 50% of this patient encounter was dedicated to face to face discussion with the patient. . Diagnoses: (C50.412, Z17.0) Malignant neoplasm of upper-outer quadrant of left breast in female, estrogen receptor positive (HCC) (primary encounter diagnosis) Hodan Chong MD Referring Provider: SELF [[id number]] Allergies As of Date: 04/11/2017 Noted Allergy Reaction IV DYE (IODINATED CONTRAST- ORAL *05/21/2006 SHELLFISH 05/21/2006 VICTOZA (LIRAGLUTIDE) 03/30/2017 5 - Intolerance Date Reviewed: 04/11/2017 Reviewed by: Roc Obrien LPN - Fully Assessed Primary Visit Diagnosis:Malignant neoplasm of upper-outer quadrant of left breast in female, estrogen receptor positive (HCC) [C50.412, Z17.0] Prescriptions as of 04/11/2017 Sig: DIPHENHYDRAMINE 50 MG CAPSULE Take 1 capsule by mouth as di* OTEZLA 30 MG TABLET AFLURIA QUAD [id number] (PF) 6* To be injected by Pharmacist METFORMIN ER 500 MG TABLET,EX* Take 1,000 mg by mouth once d* SUMATRIPTAN 100 MG TABLET Take 100 mg by mouth as neede* OMEPRAZOLE 40 MG CAPSULE,CARLYN* Take 40 mg by mouth once adia* METHOTREXATE SODIUM 2.5 MG TA* Take 2.5 mg by mouth as direc* HYDROXYCHLOROQUINE 200 MG TAB* Take 200 mg by mouth twice da* LEUCOVORIN CALCIUM ORAL Take 5 mg by mouth once each * CDYGSFHAZT-LBLIEZO-AGTTQQKP 5* Take 1 capsule by mouth once * TRAMADOL 50 MG TABLET Take 50 mg by mouth three lizeth* * ELETRIPTAN HBR 20 MG TABLET Take 20 mg by mouth as needed* * SAXAGLIPTIN 5 MG-METFORMIN ER* Take by mouth. * FLAXSEED OIL 1,000 MG CAPSULE Take 1 capsule by mouth once * * SIMVASTATIN 20 MG TABLET Take 1 tablet by mouth daily * * OMEPRAZOLE 20 MG CAPSULE,CARLYN* Take 1 capsule by mouth once * * LORAZEPAM 0.5 MG TABLET Take 0.5 mg by mouth once rigo* * FLUOXETINE 20 MG CAPSULE Take 20 mg by mouth once adia* * GLUCOSAMINE CHONDROITIN MAXIM* Take one(1) capsules three(3)* * ALEVE 220 MG TABLET PRN * MULTIVITAMIN TABLET Take one(1) tablet daily. * CALCIUM + D 600 MG (1,500 MG)* Take one(1) tablet twice adia* * TYLENOL EXTRA STRENGTH 500 MG* Take two(2) tablets every six* Problem List As Of Date 04/11/2017 Noted Resolved Postmenopausal bleeding [N95.0] INVALID FOR* Ovarian cyst [N83.209] INVALID FOR* Letter Text Encounter Status:Closed by MD HODAN CHONG on 04/15/17 PROGRESS Observed: 04/05/2017 Status: COMPLETED Source: [place] 9:43 PM [facility] [place] REPOSITORY HNO ID: [id number] Author: Hodan Chong Service: (none) Author Type: Physician Type: Progress Notes Filed: 04/07/2017 7:16 PM Note Text: Patient presents for US guided left breast needle core biopsy. Patient tolerated procedure. To follow up in a few days for wound check and pathology discussion. Patient requested pain medications. PROGRESS Observed: 04/05/2017 Status: COMPLETED Source: [place] 2:39 PM [facility] REPOSITORY HNO ID: [id number] Author: Drea Mcaculey RN Service: (none) Author Type: (none) Type: Progress Notes Filed: 04/07/2017 7:16 PM Note Text: UNIVERSAL PROTOCOL / SAFETY CHECKLIST Procedure to be performed: Ultrasound guided left breast needle core biopsy Sign in Communication: Completed Time Out: Team Confirms the Correct Patient, Correct Procedure, Correct Site and Site Marking, Correct Position (if applicable), Prep and Dry Time (if applicable). Time: 1315 Affirmation of Time Out: YES Sign Out Discussion: Completed Drea Mccauley RN PROCEDURE Observed: 04/05/2017 Status: COMPLETED Source: [place] 1:49 PM [facility] REPOSITORY HNO ID: [id number] Author: Hodan Chong Service: (none) Author Type: Physician Type: Procedures Filed: 04/07/2017 7:16 PM Note Text: After informed consent was given and patient gives permission for the procedure, the patient was placed in the supine position. Appropriate time out protocol was followed. The ultrasound transducer was used to localize the lesion. There is a palpable breast mass - deep in the breast - at 10 to 11 oclock, about 4 cm from the nipple. The lesion was seen by US, but is very deep, near the chest wall. and a brissa was made on the patient's left breast skin at the site of the lesion. The left breast was prepped with betadyne skin preparation and sterile surgical drape was placed. The skin and subcutaneous tissue around the breast lesion was infiltrated with 1% xylocaine with epinephrine. A small skin incision was made with an 11 blade scalpel lateral to the lesion. The Mammotome Elite device was the positioned into the patient?s breast into the breast lesion and this was confirmed under ultrasound guidance.. Several core samples of breast tissue were then obtained. A marker clip was placed at the biopsy site, and this was confirmed by ultrasound. Hemostasis was achieved by pressure. Steristrips were used to reapproximate the skin. Opsite was then applied. Patient tolerated procedure well. PROGRESS Observed: 04/05/2017 Status: COMPLETED Source: [place] 1:42 PM [facility] REPOSITORY HNO ID: [id number] Author: Hamida Escobar Rdms Service: (none) Author Type: (none) Type: Progress Notes Filed: 04/05/2017 1:43 PM Note Text: Radiology Service Progress Note PATIENT NAME: Jessica Rodriguez DATE OF SERVICE: April 05, 2017 TIME: 1:42 PM PATIENT IDENTITY VERIFICATION COMPLETED USING TWO (2) METHODS: Patient confirmed name verbally and Date of . PATIENT GENDER DATA: Female. status: : No status: NO. PATIENT RELEVANT IMPLANT DATA REVIEWED: Not Applicable RADIOLOGY DEPARTMENT: Ultrasound PERIPHERAL IV DATA: Not applicable SIGNED BY: Hamida Escobar Rdms April 05, 2017 1:42 PM BREAST BIOPSY Observed: 04/05/2017 Status: F Source: [place] ([place]OOSE SITE) 1:15 PM [facility] REPOSITORY Patient: JESSICA RODRIGUEZ : 1955 (62/F) Acct Num: [id number] Phys: Castillo MCMILLAN,Hodan Unit Num: [id number] Loc: LABSPEC Specimen: [id number] Received: 04/06/17 - 1201 Spec Type: BREAST BX TISSUES TISSUES: Left breast, NOS COMMENT Immunohistochemistry ([id number]) supports the above diagnosis. ER/RI/Jbo8tcb studies are being performed on sections of tumor and the results from this study will be reported separately ([id number]). Please make reference to previous specimen ([id number]) left breast, core biopsy with diagnosis of fibrocystic change with associated microcalcifications. GROSS DESCRIPTION Received is one container labeled with the patient's name and not further designated. The specimen consists of multiple elongated fragments of bagley-yellow fibroadipose tissue that in aggregate measure 3 x 2 x 0.1 cm. The entire specimen is submitted in one cassette. / DAI:lilibeth 04/06/17 TC:0 CPT: 67756 HEADER OPERATION: Ultrasound-guided left breast needle core biopsy PRE-OP DIAGNOSIS: Abnormal left mammogram/ultrasound TISSUE SUBMITTED: Left breast needle core biopsy ISCHEMIC TIME: 3 minutes FIXATION TIME: 54.5 hours MICROSCOPIC DESCRIPTION Slides are reviewed. MICROSCOPIC DIAGNOSIS Left breast, ultrasound-guided needle core biopsy: Invasive ductal carcinoma, nuclear grade 3 (1 cm in greatest length). See comment. DAI:lilibeth 04/09/17 Signed Ildefonso Skinner 04/10/17 <signature on file> Performed By: #### PBRBX #### [facility] [place] [address] [place], [address] IMMUNOHISTOCHEMISTRY Observed: 04/05/2017 Status: F Source: [place] 12:00 AM [facility] REPOSITORY Patient: JESSICA RODRIGUEZ : 1955 (62/F) Acct Num: [id number] Phys: Castillo MCMILLAN,Hodan Unit Num: [id number] Loc: LABSPEC Specimen: [id number] Received: 04/09/17 - 1250 Spec Type: IMMUNO TISSUES TISSUES: Left breast, NOS SPECIMEN INFORMATION: Tissue Source: Left breast needle core biopsy Clinical Info: Abnormal left mammogram/ultrasound Specimen Number: [id number] CPT code: 56244, 19031 x4, 30505 x3 METHODOLOGY: Deparaffinized sections of prefer/formalin-fixed tissue or PAP/DQ stained slides are incubated with monoclonal/polyclonal antibodies/oligonucleotide probes. Localization is made via biotin free immunoperoxidase method. Appropriate controls are performed and reacted as expected. Results on target cell population are indicated in the following table: RESULTS: ANTIBODY / CLONE RESULT E-Cad (ECH-6) positive CK8 (41eywhZ53) positive CK5-6 (D5 AND 1684) negative Ki-67 (30-9) positive, moderate P53 (DO-7) positive MORPHOMETRIC ANALYSIS ER (clone 6F11) >95%, strong RI (clone 16/1E2) variable, 0-11%, weak Her-2Neu (clone CB11) 1+ The prognostic test for HER2 is performed on formalin-fixed paraffin embedded tissue. A 3+ (positive) staining pattern is defined as intense, homogeneous, complete, circumferential membranous staining in >10% of contiguous tumor cells. A similar weak (2+) staining pattern is interpreted as equivocal. LUDA follow- up testing is recommended for all equivocal cases. Positivity/negativity for ER/ RI is reported if > or < 1% of the tumor cells are immuno- reactive, respectively. The ASCO/CAP criteria is used for scoring. Reference: Journal of Clinical Oncology, 2013; 31:8167-1732 AND 2009; 16:2784- 2795. Duration of fixation : 54.5 Hrs; Sample Adequate: Yes. These assays have not been validated on decalcified tissues. Results should be interpreted with caution given the likelihood of false negativity on decalcified specimens. These tests were developed and their performance characteristics determined by [facility]. They may not have been cleared or approved by the U.S. Food and Drug Administration. The FDA has determined that such clearance or approval is not necessary. INTERPRETATION: Left breast, ultrasound-guided needle core biopsy: Invasive ductal carcinoma, nuclear grade 3. Positive for estrogen receptors (favorable prognostic indicator). Positive for progesterone receptors (favorable prognostic indicator). Negative for overexpression of RAC5cgq. SJ:lilibeth 04/10/17 PHYSICIAN AND INSTITUTION [address] [address] Signed Ildefonso Skinner 04/10/17 <signature on file> Performed By: #### PIMM #### [facility] [address] [place] [address]. [place], [place], [address] PROGRESS Observed: 03/30/2017 Status: COMPLETED Source: [place] 2:36 PM [facility] REPOSITORY O ID: [id number] Author: Hodan Chong Service: (none) Author Type: Physician Type: Progress Notes Filed: 03/31/2017 9:34 PM Note Text: Jessica Rodriguez 1955 REFERRING PHYSICIAN: Joseph Dumotn* CHIEF COMPLAINT: Mammogram Abnormality HPI: The patient is a pleasant 61 year old female who presents with abnormal left breast mammograms/US. Had previous left breast biopsy - needle core - 05/23/10. US - 3 cm irregular high density mass with a microlobulated margin in the left breast at 12:00 - middle depth, also axillary adenopathy Patient notes increased density of the left breast. Also just recently noted erythema of skin. Also notes flattening of the nipple in this location. Denies nipple discharge. PAST MEDICAL HISTORY Diagnosis Date - Diverticulosis of colon with hemorrhage - Personal history of colonic polyps - PMH - PAST MEDICAL HISTORY OF SPASTIC COLON - Psoriatic arthritis (HCC) - Tension headache - Type II or unspecified type diabetes mellitus without mention of complication, not stated as uncontrolled PAST SURGICAL HISTORY Procedure Laterality Date - COLONOSCOP W/ OR W/O [facility] SPEC 2000 Colonoscopy - COLONOSCOP W/ OR W/O [facility] SPEC 12/09/2012 Colonoscopy - EGD W/O OR W/BRUSH/WASH 12/09/2012 EGD - EXCIS BREAST LESION Left breast - HYSTEROSCOPY WBX WWO D AND C ANDOR POLYPECTOMY 2011 PMB- polyps - LIGATE FALLOPIAN TUBE - PAST SURGICAL HISTORY OF cyst removed from back PAST INJURIES Denies head injuries, denies history of fractures Current Outpatient Prescriptions: OTEZLA 30 mg tablet AFLURIA QUAD [id number], PF, 60 mcg/0.5 mL syrg To be injected by Pharmacist metFORMIN ER (GLUCOPHAGE XR) 500 mg 24 hr tablet Take 1,000 mg by mouth once daily. SUMAtriptan (IMITREX) 100 mg tablet Take 100 mg by mouth as needed. Omeprazole (PRILOSEC) 40 mg capsule Take 40 mg by mouth once daily. methotrexate 2.5 mg tablet Take 2.5 mg by mouth as directed. Pt is taking 6 tablets, once weekly hydroxychloroquine (PLAQUENIL) 200 mg tablet Take 200 mg by mouth twice daily. LEUCOVORIN CALCIUM ORAL Take 5 mg by mouth once each week. Pt takes this the day after taking methotrexate. acqatll-hipqsrvc-tzfumuxkgt capsule Take 1 capsule by mouth once daily as needed. traMADol 50 mg tablet Take 50 mg by mouth three times daily as needed. eletriptan (RELPAX) 20 mg tablet Take 20 mg by mouth as needed. may repeat in 2 hours if necessary saxagliptin-metFORMIN (KOMBIGLYZE XR) 5-1,000 mg TM24 Take by mouth. Flaxseed Oil 1,000 mg ORAL Cap Take 1 capsule by mouth once daily. simvastatin (ZOCOR) 20 mg ORAL tablet Take 1 tablet by mouth daily at bedtime. omeprazole (PRILOSEC) 20 mg ORAL capsule Take 1 capsule by mouth once daily. LORazepam 0.5 mg ORAL Tab Take 0.5 mg by mouth once daily as needed. fluoxetine 20 mg ORAL capsule Take 20 mg by mouth once daily. gluc perez/chondro perez a/vit c/mn(GLUCOSAMINE CHONDROITIN MAXIMUM STRENGTH 500 MG-400 MG CAP) Take one(1) capsules three(3) times daily.. naproxen sodium(ALEVE 220 MG TAB) PRN MULTIVITAMIN TAB Take one(1) tablet daily. CALCIUM + D 600 MG-200 UNIT TAB Take one(1) tablet twice daily. TYLENOL EXTRA STRENGTH 500 MG TAB Take two(2) tablets every six(6) hours as needed for pain. ALLERGIES: Iodine; Iv Dye [Iodinated Contrast- Oral And Iv Dye]; Shellfish; Victoza [Liraglutide] PERSONAL HISTORY: Social History Marital status: Spouse name: Niles Years of education: 16 Number of children: 0 Occupational History Occupation Employer Comment [employer] Social History Main Topics Smoking status: Passive Smoke Exposure - Never Smoker Packs/day: 0.00 Years: 0.00 Smokeless status: Never Used Comment: smokes socially Alcohol use: No Drug use: No Sexual activity: Not Currently Partners with: Male control/protection: Tubal Ligation FAMILY HISTORY Problem Relation Age of Onset - Diabetes Father - Heart Father - Breast Cancer Maternal Grandmother - Prostate Cancer Maternal Grandfather - Osteoporosis Mother - Osteoporosis Sister - Hypertension Sister - Lipids Father - Arthritis Mother - GI Mother IBS REVIEW OF SYSTEMS: General: The patient denies fatigue, denies weight loss, denies weight gain, denies feeling hot, and denies feelings of cold. Eyes: The patient denies glaucoma, denies eye injury/surgery, wears glasses or contacts. Ear/Nose/Throat: The patient denies allergies, denies hayfever, denies ear infections, and denies bloody noses. Cardiovascular:denies chest pain, denies heart disease, denies high blood pressure,denies cardiac stent, denies prior heart attack, denies irregular heart beat, denies high cholesterol, denies poor circulation, denies heart failure, other cardiac issues, denies claudication, denies cold feet, denies peripheral arterial stent. Respiratory: The patient denies tuberculosis, denies pneumonia, denies frequent cough, denies pulmonary embolism, denies shortness of breath, and denies coughing up blood. Gastrointestinal: had last colonoscopy Feb 2017, denies difficulty swallowing, NOTES acid reflux, denies ulcers, denies vomiting, denies jaundice/hepatitis, denies gallbladder problems, denies black or tarry stools, denies hemorrhoids, denies bleeding from rectum, denies diverticulitis, denies constipation, denies diarrhea, denies loss of stool control, and denies hernias. Kidney/Bladder: The patient denies kidney stones, denies urine infections, and denies bloody urine. Skin: The patient denies a history of skin cancer, denies bleeding/changing moles, and denies a history of skin rash. Neurologic:has tension headaches, denies seizures, denies head/spinal injuries, and denies stroke/TIA. Psychiatric: The patient denies psychiatric medications, NOTES depression, and denies voices, denies substance abuse. Endocrine: The patient denies thyroid disorders, NOTES diabetes, and denies hormonal problems. Hematologic: The patient denies a history of bruising, denies bleeding, and denies anemia, denies blood clots. Infections: The patient denies a history of measles and mumps, denies rheumatic fever, and denies sexually transmitted diseases. Musculoskeletal: has osteoarthritis of shoulders, denies back pain/injury, denies back problems, denies sciatica, denies knee/foot trouble, NOTES arthritis, or denies gout. Obstetrical: menarche onset at age 13, had shots to induce normal menstrual periods then started on hormones at age 16 and continued until age 19 and then begun on BCP - all to aid in normalizing menstrual periods, patient had normal menstrual periods starting at age 42, menopause around age 52 PHYSICAL EXAMINATION: General: The patient is 61 year old female, well nourished, well hydrated in no acute distress. The patient is oriented to time, place, and person. VITALS: Blood pressure 138/62, pulse 64, weight 88.5 kg (195 lb). Body mass index is 36.25 kg/(m2) Head ? Normocephalic. EOM intact with sclera clear and no icterus noted. Mouth with mucus membranes moist. Neck - supple with no jugular venous distention noted. Trachea is midline. No carotid bruits noted. No thyroid enlargement or thyroid nodules detected. No masses noted. Chest/breast ? no asymmetry of breasts noted, slight erythema to skin medially, no nipple discharge and both nipples everted though left nipple is less everted than right, nodular breast tissue palpated bilaterally, dense specific area of left breast at 10 to 11 oclock near areolar border but not discrete US examination of left breast - diffuse irregular dense tissue in retroareolar area - heterogeneous, dense tissue palpated at 10 to 11 oclock but the area is diffuse and cannot define a definitive lesion to biopsy Lungs ? clear to auscultation. Normal breath sounds. No rales/rhonchi/wheezing noted. No labored breathing noted, such as retractions. No cough heard. Heart ? normal S1 and S2 auscultated. No rubs/clicks/murmurs noted. Regular rate. Abdomen ? soft and benign. Normal bowel sounds. No abdominal bruits noted. Difficult to determine if any masses or organomegaly due to body habitus. Extremities ? no calf tenderness noted. No pitting edema noted. Skin ? normal skin integrity. Lymph ? no cervical adenopathy detected, no supraclavicular adenopathy detected, no axillary adenopathy detected Neurological ? gait normal, no focal deficits Psych ? calm and appropriate RADIOLOGIC STUDIES: As Noted IMPRESSION: abnormal left breast ultrasound/mammogram PLAN: I have discussed the above with the patient. I have offered US guided left needle core breast biopsy. I have explained the procedure to the patient. I have counseled the patient as to the risks of the procedure, including but not limited to: infection, bleeding, injury to any blood vessels/nerves, scar tissue, wound infections, complications of anesthesia, etc. ? the patient understands. The patient wishes to proceed. I have answered all questions to the patient?s satisfaction and the patient has no further questions. Greater than 50% of this patient encounter was dedicated to face to face discussion with the patient. I could not localize the exact area to biopsy, as the irregularity appeared over a diffuse area and could not find definitive center of mass. Therefore will schedule patient for needle core biopsy at US in the radiology department. . Diagnoses: (R93.8) Abnormal ultrasound (primary encounter diagnosis) (R92.8) Abnormal mammogram (E66.01, Z68.35) Class 2 severe obesity due to excess calories with serious comorbidity and body mass index (BMI) of 35.0 to 35.9 in adult (HCC) Return to Clinic: The patient will be scheduled for US guided needle core biopsy in the radiology department [facility] Chong [facility] Observed: 03/28/2017 Status: COMPLETED Source: [place] 11:48 AM [facility] REPOSITORY HNO ID: [id number] Author: Mammography Coordinator Service: (none) Author Type: Physician Type: Letter Filed: 03/29/2017 11:31 PM Note Text: March 28, 2017 PID: [id number] Jessica Sierranegritasanyarobert [address] [facility] [place] [address] Dear Ms. Rodriguez, Your recent breast imaging exam on 03/28/2017 showed an abnormal area. At this time we recommend further evaluation. This does not necessarily mean that there is a serious problem in your breast, but it should not be ignored. Please contact your physician as soon as possible to discuss the results of this exam and decide what the next steps in your medical care should be. If you have already been notified of these findings, please disregard this letter. Thank you for allowing us to help in meeting your health care needs. Sincerely, Dr. Roque Interpreting Radiologist [facility] (Abnormal) [facility] Observed: 03/28/2017 Status: COMPLETED Source: [place] 11:48 AM [facility] REPOSITORY HNO ID: [id number] Author: Mammography Coordinator Service: (none) Author Type: Physician Type: Letter Filed: 03/29/2017 11:31 PM Note Text: March 28, 2017 PID: [id number] Jessica Freitas Michael [address] [facility] [place] [address] Dear Ms. Rodriguez, Your recent breast imaging exam on 03/28/2017 showed an abnormal area. At this time we recommend further evaluation. This does not necessarily mean that there is a serious problem in your breast, but it should not be ignored. Please contact your physician as soon as possible to discuss the results of this exam and decide what the next steps in your medical care should be. If you have already been notified of these findings, please disregard this letter. Thank you for allowing us to help in meeting your health care needs. Sincerely, Dr. Roque Interpreting Radiologist [facility] (Abnormal) [facility] [employer] BREAST LTD Observed: 03/28/2017 Status: F Source: [facility] 11:41 AM [facility] REPOSITORY * * *Final Report* * * DATE OF EXAM: Mar 28 2017 11:41AM YOLANDAU 0593 - [facility] US BREAST LTD LT / PROCEDURE REASON: call back left breast / abnormal mammogram * * * * Physician Interpretation * * * * #[id number] - [facility] DIAGNOSTIC LT UNILATERAL LEFT DIGITAL DIAGNOSTIC MAMMOGRAM WITH CAD: 03/28/2017 HISTORY: Call Back Left Breast / Abnormal Mammogram. RESULT: TECHNIQUE: The study was acquired using full field digital technology and interpreted from soft copy. Current study was also evaluated with a Computer Aided Detection (CAD). Comparison is made to exams dated: 03/22/2017 mammogram - [facility], 12/08/2015 mammogram, and 12/02/2014 mammogram - [facility]. There are scattered fibroglandular elements in the left breast. There is a new 3 cm irregular high density mass with a microlobulated margin in the left breast at 12 o'clock middle depth. No other significant masses or calcifications are seen in the breast. HIGHLY SUGGESTIVE OF MALIGNANCY - APPROPRIATE ACTION SHOULD BE TAKEN The new 3 cm irregular high density mass in the left breast is consistent with carcinoma and is highly suggestive of malignancy. An ultrasound guided biopsy is recommended. #[id number] - [facility] [employer] BREAST [facility] LT ULTRASOUND OF LEFT BREAST: 03/28/2017 RESULT: Comparison is made to exams dated: 03/22/2017 mammogram - [facility], 12/08/2015 mammogram, and 12/02/2014 mammogram - [facility]. Real-time ultrasound of the left breast was performed. There is a 3 cm irregular mass with an indistinct margin in the left breast central to the nipple middle depth. This irregular mass is hypoechoic with internal echoes. This correlates with mammography findings. There is also axillary adenopathy. IMPRESSION: HIGHLY SUGGESTIVE OF MALIGNANCY - APPROPRIATE ACTION SHOULD BE TAKEN - FOLLOW-UP RECOMMENDED The 3 cm irregular mass in the left breast is consistent with carcinoma and is highly suggestive of malignancy. Eva gutierrez/joe:03/28/2017 11:48:48 Oil Truck Driver: Kj HADDAD)(Bhakti), [facility] letter sent: Abnormal Mammogram BI-RADS: 5 Highly suggestive of malignancy - Appropriate action should be taken Ultrasound BI-RADS: 5 Highly suggestive of malignancy - Appropriate action should be taken [employer] Pan[employer] Developer: Joe Transcribe Date/Time: Mar 28 2017 10:58A Dictated by : EVA ROQUE MD This examination was interpreted and the report reviewed and electronically signed by: EVA ROQUE MD on Mar 28 2017 11:48AM EST [id number] PROGRESS Observed: 03/28/2017 Status: COMPLETED Source: [place] 11:23 AM [facility] REPOSITORY HNO ID: [id number] Author: Ruth Landrum Service: (none) Author Type: (none) Type: Progress Notes Filed: 03/28/2017 11:50 AM Note Text: Radiology Service Progress Note PATIENT NAME: Jessica Rodriguez DATE OF SERVICE: March 28, 2017 TIME: 11:23 AM PATIENT IDENTITY VERIFICATION COMPLETED USING TWO (2) METHODS: Patient confirmed name verbally and Date of . PATIENT GENDER DATA: Female. status: : No status: NO. PATIENT RELEVANT IMPLANT DATA REVIEWED: Yes RADIOLOGY DEPARTMENT: Ultrasound PERIPHERAL IV DATA: Not applicable SIGNED BY: Ruth Landrum March 28, 2017 11:23 AM [facility] DIAGNOSTIC LT Observed: 03/28/2017 Status: F Source: [place] 11:13 AM [facility] REPOSITORY * * *Final Report* * * DATE OF EXAM: Mar 28 2017 11:13AM [facility] 0621 - [facility] DIAGNOSTIC LT / PROCEDURE REASON: call back left breast / abnormal mammogram * * * * Physician Interpretation * * * * RESULT: #[id number] - [facility] DIAGNOSTIC LT UNILATERAL LEFT DIGITAL DIAGNOSTIC MAMMOGRAM WITH CAD: 03/28/2017 HISTORY: Call Back Left Breast / Abnormal Mammogram. RESULT: TECHNIQUE: The study was acquired using full field digital technology and interpreted from soft copy. Current study was also evaluated with a Computer Aided Detection (CAD). Comparison is made to exams dated: 03/22/2017 mammogram - [facility], 12/08/2015 mammogram, and 12/02/2014 mammogram - [facility]. There are scattered fibroglandular elements in the left breast. There is a new 3 cm irregular high density mass with a microlobulated margin in the left breast at 12 o'clock middle depth. No other significant masses or calcifications are seen in the breast. HIGHLY SUGGESTIVE OF MALIGNANCY - APPROPRIATE ACTION SHOULD BE TAKEN The new 3 cm irregular high density mass in the left breast is consistent with carcinoma and is highly suggestive of malignancy. An ultrasound guided biopsy is recommended. #[id number] - [facility] BREAST [facility] ULTRASOUND OF LEFT BREAST: 03/28/2017 RESULT: Comparison is made to exams dated: 03/22/2017 mammogram - [facility], 12/08/2015 mammogram, and 12/02/2014 mammogram - [facility]. Real-time ultrasound of the left breast was performed. There is a 3 cm irregular mass with an indistinct margin in the left breast central to the nipple middle depth. This irregular mass is hypoechoic with internal echoes. This correlates with mammography findings. There is also axillary adenopathy. IMPRESSION: HIGHLY SUGGESTIVE OF MALIGNANCY - APPROPRIATE ACTION SHOULD BE TAKEN - FOLLOW-UP RECOMMENDED The 3 cm irregular mass in the left breast is consistent with carcinoma and is highly suggestive of malignancy. Eva gutierrez/joe:03/28/2017 11:48:48 Oil Truck Driver: Kj OTERO(Issa)(Bhakti), [facility] letter sent: Abnormal Mammogram BI-RADS: 5 Highly suggestive of malignancy - Appropriate action should be taken Ultrasound BI-RADS: 5 Highly suggestive of malignancy - Appropriate action should be taken [employer] Pan[employer] Developer: Joe Transcribe Date/Time: Mar 28 2017 10:58A Dictated by: EVA ROQUE MD This examination was interpreted and the report reviewed and electronically signed by: EVA ROQUE MD on Mar 28 2017 11:48AM EST [id number] [facility] Observed: 03/22/2017 Status: COMPLETED Source: [place] 1:45 PM [facility] REPOSITORY [facility] ID: [id number] Author: Mammography Coordinator Service: (none) Author Type: Physician Type: Letter Filed: 03/26/2017 11:32 PM Note Text: March 22, 2017 PID: [id number] Jessica Rodriguez [address] [facility] [place] [address] Dear Ms. Rodriguez, Your recent breast imaging exam on 03/22/2017 showed a possible finding that requires additional imaging studies for a complete evaluation. Most such findings are probably benign (not cancer). Please call [phone] to schedule an appointment for these tests if you have not already done so. Your breast images and report will be kept on file here as part of your permanent medical record and are available for your continuing care. Thank you for allowing us to help in meeting your health care needs. Sincerely, Dr. Everett Interpreting Radiologist [facility] (Additional imaging) [facility] SCREENING Observed: 03/22/2017 Status: F Source: [place] 8:52 AM [facility] REPOSITORY * * *Final Report* * * DATE OF EXAM: Mar 22 2017 8:52AM WRW 0581 - [facility] SCREENING / PROCEDURE REASON: Encounter for screening mammogram for malignant neoplasm of breast * * * * Physician Interpretation * * * * RESULT: #[id number] - [facility] SCREENING BILATERAL DIGITAL SCREENING MAMMOGRAM WITH CAD: 03/22/2017 HISTORY: Encounter For Screening Mammogram For Malignant Neoplasm Of Breast\ Screening Mammogram - patient reports NO breast symptoms /priors available for comparison /SEE TECH NOTE. RESULT: TECHNIQUE: The study was acquired using full field digital technology and interpreted from soft copy. Current study was also evaluated with a Computer Aided Detection (CAD). Comparison is made to exams dated: 12/08/2015 mammogram and 12/02/2014 mammogram - [facility]. There are scattered fibroglandular elements in both breasts. There is a new mass in the left breast central to the nipple middle depth. No other significant masses, calcifications, or other findings are seen in either breast. IMPRESSION: INCOMPLETE: NEEDS ADDITIONAL IMAGING EVALUATION The new mass in the left breast is indeterminate. Additional views with possible ultrasound are recommended. No henry/joe:03/22/2017 13:45:49 Oil Truck Driver: Shila Nielson RT(R)(Bhakti), [facility] letter sent: Additional Imaging Needed Mammogram BI-RADS: 0 Incomplete: needs additional imaging evaluation [employer] Pan[employer] Developer: Joe Transcribe Date/Time: Mar 22 2017 8:53A Dictated by: NO EVERETT MD This examination was interpreted and the report reviewed and electronically signed by: NO EVERETT MD on Mar 22 2017 1:45PM EST [id number] ALLERGIES ALLERGIES DATE TYPE / CODE NAME / CODE REACTION SEVERITY SOURCE Drug iodine/[id number] Hives Unknown [place] 9 Allergy/943851245( 2(RXNORM) [facility] SNOMED CT) Hospital Repository Drug liraglutide/F006 nausea, vomiting Unknown [place] 9 Allergy/353859230( 860330(RXNORM) [facility] SNOMED CT) Hospital Repository Drug shellfish Hives IA [place] 9 Allergy/799389521( derived/A9724769 [facility] SNOMED CT) 54(RXNORM) Hospital Repository Miscellaneous IV DYE Hives IA [place] 9 Allergy/561968412( Community SNOMED CT) Hospital Repository DRUG LIRAGLUTIDE INTOLERANCE [place] 8 INGREDI/394511608( Clinic Main SNOMED CT) [place] Rep[facility] Food/787258254(SNO SHELLFISH HIVES [place] [address]) Clinic Main [place] Repository Drug IODINATED HIVES [place] 7 Class/313454673(SN CONTRAST- ORAL Clinic Main OMED CT) AND IV DYE [place] Repository DRUG IODINE [place] 7 INGREDI/618186923( Clinic Main SNOMED CT) [place] Repository Drug IODINATED [place] 7 Class/467413406(SN CONTRAST- ORAL Clinic Main OMED CT) AND IV DYE [place] Repository Food/008304655(SNO SHELLFISH [place] [address]) Clinic Main [place] Repository ENCOUNTERS ENCOUNTERS ADMIT/DISCHARGE ACCOUNT ADMITTING ENCOUNTER LOCATION SOURCE NUMBER CLASS 03/08/2018 [id number] Ambulatory Building:[facility] [place] Practices Repository 03/01/2018/03/05/19 [id number] [facility] Inpatient [place] Phyll[place] 19 Encounter [facility] ing:IC0Tqyu: Repository WD344Pgr: 1 03/01/2018 [id number] [facility] Ambulatory BMSBuilding:Nan Ferguson MS.[facility] Repository 03/01/2018 [id number] [facility] Ambulatory BMSBuilding:Nan Ferguson MS.[facility] Repository 03/01/2018 [id number] [facility] Ambulatory BMSBuilding:Nan Ferguson MS.[facility] Repository 03/01/2018 [id number] [facility] Marie Ambulatory BMSBuilding:Nan Ferguson MS.[facility] Repository 03/01/2018 [id number] [facility] Marie Ambulatory BMSBuilding:Nan Ferguson MS.[facility] Repository 03/01/2018/03/01/19 [id number] Ambulatory [address] Repository 02/22/2018/02/22/19 [id number] Ambulatory [address] Repository 02/14/2018/02/14/19 [id number] Ambulatory [address] Repository 02/14/2018/02/14/19 [id number] Ambulatory [address] Repository 02/14/2018/02/14/19 [id number] Ambulatory [address] Repository 01/30/2018/02/01/20 [id number] Ambulatory [address] Repository 01/19/2018 [id number] [place], Ambulatory BMSBuilding:Nan Baum MS.[facility] Repository 01/19/2018 [id number] Gi[place]anny, Ambulatory BMSBuilding:Nan Baum MS.[facility] Repository 01/19/2018 [id number] [place], Ambulatory BMSBuilding:Nan Baum MS.[facility] Repository 01/19/2018 [id number] [facility], Ambulatory BMSBuilding:Nan Baum MS.[facility] Repository 01/19/2018/01/23/20 [id number] [facility], Inpatient [place]yllis[address] ing:AY7Sfga: Repository BK780Vxo: 1 01/18/2018/01/19/20 [id number] Emergency [address] ing:ED Repository 01/07/2018/01/13/20 [id number] Ambulatory [address] Repository 01/02/2018/01/05/20 [id number] Ambulatory [address] Repository 01/02/2018/01/03/20 [id number] Ambulatory [address] Repository 01/01/2018/01/02/20 [id number] Ambulatory [address] Repository 01/01/2018/01/02/20 [id number] Ambulatory [address] Repository 12/31/2017/01/01/20 [id number] Ambulatory [facility] Main [place] Repository 12/28/2017/12/29/19 [id number] Ambulatory [facility] Main [place] Repository 12/27/2017/12/28/19 [id number] Ambulatory [facility] Main [place] Repository 12/27/2017/12/28/19 [id number] Ambulatory [facility] [place] Repository 12/26/2017/12/28/19 [id number] Ambulatory [facility] [place] Repository 12/26/2017/12/27/19 [id number] Ambulatory [facility] [place] Repository 12/25/2017/12/26/19 [id number] Ambulatory [facility] [place] Repository 12/25/2017/12/26/19 [id number] Ambulatory [facility] [place] Repository 12/24/2017/12/25/19 [id number] Ambulatory [facility] [place] Repository 12/24/2017/12/25/19 [id number] Ambulatory [facility] [place] Repository 12/24/2017/12/26/19 [id number] Ambulatory [facility] [place] Repository 12/21/2017 [id number] Ambulatory [facility] ing:MEDOUT Repository 12/21/2017/12/25/19 [id number] Ambulatory [facility] [place] Repository 12/21/2017/12/22/19 [id number] Ambulatory [facility] [place] Repository 12/21/2017/12/22/19 [id number] Ambulatory [facility] [place] Repository 12/21/2017/12/22/19 [id number] Ambulatory [facility] [place] Repository 12/20/2017/12/21/19 [id number] Ambulatory [facility] [place] Repository 12/19/2017/12/20/19 [id number] Ambulatory [facility] [place] Repository 12/18/2017/12/19/19 [id number] Ambulatory [facility] [place] Repository 12/18/2017/12/19/19 [id number] Ambulatory [facility] [place] Repository 12/17/2017/12/18/19 [id number] Ambulatory [facility] [place] Repository 12/14/2017/12/15/19 [id number] Ambulatory [facility] [place] Repository 12/13/2017/12/14/19 [id number] Ambulatory [facility] [place] Repository 12/12/2017/12/13/19 [id number] Ambulatory [facility] [place] Repository 12/11/2017/12/12/19 [id number] Ambulatory [facility] [place] Repository 12/11/2017/12/12/19 [id number] Ambulatory [facility] [place] Repository 12/10/2017/12/11/19 [id number] Ambulatory [facility] [place] Repository 12/07/2017/12/08/19 [id number] Ambulatory [facility] [place] Repository 12/06/2017/12/07/19 [id number] Ambulatory [facility] [place] Repository 12/05/2017/12/05/19 [id number] Ambulatory [facility] [place] Repository 12/05/2017/12/06/19 [id number] Ambulatory [facility] [place] Repository 12/04/2017/12/05/19 [id number] Ambulatory [facility] [place] Repository 12/03/2017/12/04/19 [id number] Ambulatory [facility] [place] Repository 11/30/2017/12/01/19 [id number] Ambulatory [facility] [place] Repository 11/29/2017/11/30/19 [id number] Ambulatory [facility] [place] Repository 11/28/2017/11/30/19 [id number] Ambulatory [facility] [place] Repository 11/28/2017/11/29/19 [id number] Ambulatory [facility] [place] Repository 11/28/2017/11/30/19 [id number] Ambulatory [facility] [place] Repository 11/28/2017/11/29/19 [id number] Ambulatory [facility] [place] Repository 11/27/2017/11/28/19 [id number] Ambulatory [facility] [place] Repository 11/27/2017 [id number] Ambulatory [facility] [place] Repository 11/26/2017/11/27/19 [id number] Ambulatory [facility] [place] Repository 11/23/2017/11/24/19 [id number] Ambulatory [facility] [place] Repository 11/22/2017/11/23/19 [id number] Ambulatory [facility] [place] Repository 11/22/2017/11/23/19 [id number] Ambulatory [facility] [place] Repository 11/19/2017/11/20/19 [id number] Ambulatory [facility] [place] Repository 11/01/2017/11/06/19 [id number] Ambulatory [facility] [place] Repository 11/01/2017/11/02/19 [id number] Ambulatory [facility] [place] Repository 10/31/2017/11/02/19 [id number] Ambulatory [facility] [place] Repository 10/31/2017/11/02/19 [id number] Ambulatory [facility] [place] Repository 10/30/2017/10/31/19 [id number] Ambulatory [facility] [place] Repository 10/30/2017/11/01/19 [id number] Ambulatory [facility] [place] Repository 10/30/2017/10/31/19 [id number] Ambulatory [facility] [place] Repository 10/24/2017/10/25/19 [id number] Ambulatory [facility] [place] Repository 10/24/2017/10/26/19 [id number] Ambulatory [facility] [place] Repository 10/24/2017/10/25/19 [id number] Ambulatory [facility] [place] Repository 10/18/2017/10/23/19 [id number] Ambulatory [facility] [place] Repository 10/18/2017/10/19/19 [id number] Ambulatory [facility] [place] Repository 10/18/2017/10/19/19 [id number] Ambulatory [facility] [place] Repository 10/11/2017/10/12/19 [id number] Ambulatory [facility] [place] Repository 10/11/2017/10/13/19 [id number] Ambulatory [facility] [place] Repository 10/11/2017/10/12/19 [id number] Ambulatory [facility] [place] Repository 10/05/2017/10/10/19 [id number] Ambulatory [facility] [place] Repository 10/04/2017/10/09/19 [id number] Ambulatory [facility] [place] Repository 10/02/2017/10/03/19 [id number] Ambulatory [facility] [place] Repository 10/02/2017/10/04/19 [id number] Ambulatory [facility] [place] Repository 10/02/2017/10/03/19 [id number] Ambulatory [facility] [place] Repository 09/27/2017/09/29/19 [id number] Ambulatory [facility] [place] Repository 09/27/2017 [id number] Ambulatory [facility] [place] Repository 09/20/2017/09/22/19 [id number] Ambulatory [facility] [place] Repository 09/20/2017 [id number] Ambulatory [facility] [place] Repository 09/13/2017/09/25/19 [id number] Ambulatory [facility] [place] Repository 09/13/2017/09/14/19 [id number] Ambulatory [facility] [place] Repository 09/13/2017/09/14/19 [id number] Ambulatory [facility] [place] Repository 09/06/2017/09/08/19 [id number] Ambulatory [facility] [place] Repository 09/04/2017/09/06/19 [id number] Ambulatory [facility] [place] Repository 09/04/2017/09/05/19 [id number] Ambulatory [facility] [place] Repository 09/04/2017/09/05/19 [id number] Ambulatory [facility] [place] Repository 08/30/2017/09/01/19 [id number] Ambulatory [facility] [place] Repository 08/30/2017/08/31/19 [id number] Ambulatory [facility] [place] Repository 08/30/2017/08/31/19 [id number] Ambulatory [facility] [place] Repository 08/23/2017/08/25/19 [id number] Ambulatory [facility] [place] Repository 08/23/2017/08/24/19 [id number] Ambulatory [facility] [place] Repository 08/23/2017 [id number] Ambulatory [facility] [place] Repository 08/16/2017/08/24/19 [id number] Ambulatory [facility] [place] Repository 08/14/2017/08/17/19 [id number] Ambulatory [facility] [place] Repository 08/14/2017/08/15/19 [id number] Ambulatory [facility] [place] Repository 08/14/2017/08/15/19 [id number] Ambulatory [facility] [place] Repository 08/01/2017/08/03/19 [id number] Ambulatory [facility] [place] Repository 07/31/2017/08/01/19 [id number] [facility] [place] Repository 07/31/2017/08/02/19 [id number] [facility] [place] Repository 07/31/2017/08/01/19 [id number] [facility] [place] Repository 07/18/2017/07/27/19 [id number] [facility] [place] Repository 07/17/2017/07/19/19 [id number] [facility] [place] Repository 07/17/2017 [id number] [facility] [place] Repository 07/17/2017/07/18/19 [id number] [facility] [place] Repository 07/04/2017/07/06/19 [id number] [facility] [place] Repository 07/03/2017 [id number] [facility] [place] Repository 07/03/2017/07/05/19 [id number] [facility] [place] Repository 07/03/2017/07/04/19 [id number] [facility] [place] Repository 06/20/2017 [id number] [facility] [place] Repository 06/20/2017/06/28/19 [id number] [facility] [place] Repository 06/20/2017/06/21/19 [id number] [facility] [place] Repository 06/08/2017/06/12/19 [id number] [facility] [place] Repository 06/08/2017/06/09/19 [id number] [facility] [place] Repository 05/30/2017/06/02/19 [id number] [facility] [place] Repository 05/28/2017/06/01/19 [id number] [facility] [place] Repository 05/24/2017/05/25/19 [id number] Ambulatory Phyllis Phyllis[address] ing:SDC Repository 05/22/2017/05/26/19 [id number] [facility] [place] Repository 05/21/2017/05/24/19 [id number] [facility] [place] Repository 05/16/2017/05/17/19 [id number] [facility] [place] Repository 05/16/2017/05/19/19 [id number] [facility] [place] Repository 05/11/2017/05/12/19 [id number] Ambulatory [facility] [place] Repository 05/11/2017/05/12/19 [id number] [facility] [place] Repository 05/09/2017/05/10/19 [id number] Ambulatory [facility] [place] Repository 05/09/2017/05/10/19 [id number] [facility] [place] Repository 05/09/2017/05/10/19 [id number] [facility] [place] Repository 05/09/2017/05/10/19 [id number] Ambulatory [address] [facility] [place] Repository 05/07/2017/05/09/19 [id number] Ambulatory [address] [facility] [place] Repository 05/07/2017/05/08/19 [id number] Ambulatory [address] [facility] [place] Repository 05/07/2017/05/09/19 [id number] Ambulatory [address] [facility] [place] Repository 05/03/2017/05/05/19 [id number] Ambulatory [address] [facility] [place] Repository 04/30/2017/05/08/19 [id number] Ambulatory [address] [facility] [place] Repository 04/25/2017/05/01/19 [id number] Ambulatory [address] [facility] [place] Repository 04/20/2017/04/22/19 [id number] Hodan Chong Ambulatory [address] ing:NM5Dmjv: Repository EA333Nxz: 1 04/19/2017/04/22/19 [id number] Ambulatory BMSBuilding:W [address] Repository 04/11/2017/04/17/19 [id number] Ambulatory [address] [place] Repository 2017 [id number] Ambulatory [facility] ing:LABSPEC Repository 04/05/2017/04/11/19 [id number] Ambulatory [address] [facility] [place] Repository 04/05/2017/04/05/19 [id number] Ambulatory [address] [facility] [place] Repository 03/30/2017/04/04/19 [id number] [facility] [place] Repository 03/28/2017/03/28/19 [id number] Ambulatory [address] Repository 03/28/2017/03/28/19 [id number] Ambulatory [address] Repository 03/22/2017/03/22/19 [id number] Ambulatory [address] Repository FUNCTIONAL STATUS FUNCTIONAL STATUS No Functional Status Records FoundEQUIPMENT EQUIPMENT No Equipment Records FoundPAYERS PAYERS ENCOUNTER GUARANTOR PAYER SUBSCRIBER SOURCE 03/08/2018 Jessica Castillo Primary Jessica A OHIP Practices AduddellDOB: Insurance:[place] AduddellDOB: Repository /BSPolicy Number: [id number] [address] [id number] [address] [place], [place] Date:5688-91-52Aexq [place], [place] [address]Tuf: [phone]) Name:[facility] [address] [address]Hul: (HP) [phone], [place] [phone] (HP) [id number]: 03/08/2018 Secondary Jessica A OHIP Practices [facility] AduddellDOB: Repository icy Number: [id number] 0 [address] Date: - [place], [place] 5153-56-09Rpzl 387[address]Swp: (330) Name:[phone] (HP) [address], [place] [id number]: 03/08/2018 Tertiary Jessica A OHIP Practices Insurance:[place] AduddellDOB: Repository /BSPolicy Number: [id number] [address] Date:2008-11-12 - [place], [place] 8791-69-67Lste [address]Ctp: (330) Name:[phone] (HP) [id number], [place] [id number]: 03/08/2018 Tertiary Jessica A OHIP Practices Insurance:[place] AduddellDOB: Repository [facility] [id number] Number: [id number], [place] Date:2011-02-12 56485Ikg: (198) [id number] [phone] (HP) Name:[address] [address]BC: 03/08/2018 [facility] Practices Insurance:[place] AduddellDOB: Repository [facility] [id number] Number: [address] [id number] RdW[place], [place] Date: [address]Tym: (330) [id number] [phone] (HP) Name:[address] [address]QS: 03/08/2018 [facility] A [facility] Insurance:[place] AduddellDOB: Repository /[facility] Number: [id number] 0 [address] Date: - [place], [place] 4869-80-64Usrq [address]26[address]Ukv: (330) Name:[facility] [phone] () [id number] [place] [address] [id number]: 03/01/2018 NILES Smith ERMADELL Primary JESSICA [address] Jr[address] Insurance:ANTHEMPolic ADUDDELLDOB: [facility] [place] Number: [id number] Hospital [address]Xag: (330) [id number] Repository [phone] (HP) Date:4829-23-63LY[address] [address]AY: 03/01/2018 Secondary NOT GIVENUNK Phyllis Insurance:SELF [facility]Y [facility] Number: Effective Repository Date:2018-03-01 03/01/2018 NILES Smith ADUDDELL Primary JESSICA [place]ianoster Jr[address] Insurance:ANTHEMPolic ADUDDELLDOB: [facility] [place] [place] y Number: [id number] Hospital [address]Hpb: (330) [id number] Repository 09 (HP) Date:7873-47-67RS [address]CTOSTS [place] [address]IR: 03/01/2018 Secondary NOT GIVENUNK [place] Insurance:SELF PAY [facility] Number: Effective Repository Date:2018-03-01 03/01/2018 NILES Smith ADNEGRITADELL Primary JESSICA [address] Insurance:ANTHEMPolic ADUDDELLDOB: [place] Number: [id number] Hospital 165[address]Ymz: (330) [id number] Repository 40 (HP) Date:5885-81-11LM [address] [place] [address] [place] [address]BD: 03/01/2018 Secondary NOT GIVENUNK Phyllis Insurance:SELF PAY [facility] Number: Effective Repository Date:2018-03-01 03/01/2018 NILES Smith ADNEGRITADELL Primary JESSICA Cobianoster Jr[address] Insurance:ANTHEMPolic ADUDDELLDOB: [place] Number: [id number] Hospital [address]Rff: (330) [id number] Repository (HP) Date:2844-48-30TL [address] [place] [address] [place] [address]AJ: 03/01/2018 Secondary NOT GIVENUNK Phyllis Insurance:SELF PAY [facility] Number: Effective Repository Date:2018-03-01 03/01/2018 NILES Smith ADNEGRITADELL Primary JESSICA [address] Jr[address] Insurance:ANTHEMPolic ADUDDELLDOB: [place] Number: [id number] Hospital [address]Mal: (330) [id number] Repository (HP) Date:6805-18-34WT [address]YDKRZ, [place] [address]XH: 03/01/2018 Secondary NOT GIVENUNK [place] Insurance:SELF PAY [facility] Number: Effective Repository Date:2018-03-01 03/01/2018 NILES Smith ADUDSANYAL Primary JESSICA [address] Insurance:ANTHEMPolic ADUDDELLDOB: Community [place] y Number: [id number] Hospital [address]Goa: (330) [id number] Repository [phone] () Date:0648-33-80LW [address] [place] [address]BF: 03/01/2018 Secondary NOT GIVENUNK [place] Insurance:SELF PAY [facility] Number: Effective Repository Date:2018-03-01 01/19/2018 NILES Smith Primary JESSICA Ferguson [id number] Insurance:ANTHEMPolic ADUDDELLDOB: Community [place] Number: [id number], [place] [id number] Repository [address]Opr: (330) Date:8639-53-93NB [address] () [address] [place] [address]TT: 01/19/2018 Secondary NOT GIVENUNK [place] Insurance:SELF PAY [facility] Number: Effective Repository Date:2018-01-19 01/19/2018 NILES Smith Primary JESSICA Cobianoster [id number] Insurance:ANTHEMPolic ADUDDELLDOB: Community [place] y Number: [id number], [place] [id number] Repository [address]Vun: (330) Date:0581-75-84FG [address] () [address] [place] [address]NG: 01/19/2018 Secondary NOT GIVENUNK [place] Insurance:SELF PAY [facility] Number: Effective Repository Date:2018-01-19 01/19/2018 NILES Smith Primary JESSICA Cobianoster [id number] Insurance:ANTHEMPolic ADUDDELLDOB: Community [place] y Number: [id number], [place] [id number] Repository [address]Gkk: (330) Date:8221-80-67LY [phone] () 845044OBSBZGZ, [place] [address]RG: 01/19/2018 Secondary NOT GIVENUNK Phyllis Insurance:SELF PAY [facility] Number: Effective Repository Date:2018-01-19 01/19/2018 NILES Smith Primary JESSICA Castillo Phyllis [id number] Insurance:ANTHEMPolic ADUDDELLDOB: Community [place] y Number: [id number], [place] [id number] Repository [address]Duo: (330) Date:3204-48-28FZ [address] () 356431KPKNWAN, [place] [address]BP: 01/19/2018 Secondary NOT GIVENUNK [place] Insurance:SELF PAY [facility] Effective Repository Date:2018-01-19 01/19/2018 NILES Smith Primary JESSICA A Phyllis [id number] Insurance:ANTHEMPolic ADUDDELLDOB: Community [place] y Number: [id number], [place] [id number] Repository [address]Tpk: (330) Date:2312-74-58PX [address] () 698349VZYWSIUJOVON LAUREN [address]KN: 01/19/2018 Secondary NOT GIVENUNK Phyllis Insurance:SELF PAY [facility] Number: Effective Repository Date:2018-01-19 01/18/2018 NILES Smith Primary JESSICA A [place] [id number] Insurance:ANTHEMPolic ADUDDELLDOB: Community [place] y Number: [id number], [place] [id number] Repository [address]Hyz: (330) Date:2979-63-74LT [address] () 030348TSBTWMDJOVON LAUREN [address]99[address]XV: 01/18/2018 Secondary NOT GIVENUNK Phyllis Insurance:SELF PAY [facility] Number: Effective Repository Date:2018-01-18 12/21/2017 NILES Smith Primary JESSICA A Phyllis [id number] Insurance:ANTHEMPolic ADUDDELLDOB: Community [place] y Number: [id number], [place] [id number] Repository [address]Jom: (330) Date:1090-14-79QU [phone] () JOVON [place] [address]EB: 12/21/2017 Secondary NOT GIVENUNK Phyllis Insurance:[facility]LF [facility]Y [facility] Number: Effective Repository Date:2017-12-21 05/24/2017 NILES Smith Primary JESSICA A Phyllis [id number] Insurance:ANTHEMPolic ADUDDELLDOB: Community [place] y Number: [id number], [place] [id number] Repository [address]Gem: (330) Date:1425-59-78TC [phone] () JOVON [place] [address]VP: 05/24/2017 Secondary NOT GIVENUNK [place] Insurance:SELF PAY [facility] Number: Effective Repository Date:2017-05-22 04/20/2017 Niles Smith Primary JESSICA A Phyllis [id number] Insurance:ANTHEMPolic ADUDDELLDOB: Community [address] Number: [id number] [place] [id number] Repository [address]Cql: (330) Date:1043-53-24QN [phone] () JOVON [place] [address]IT: 04/20/2017 Secondary NOT GIVENUNK [place] Insurance:SELF PAY [facility] Number: Effective Repository Date:2017-04-11 04/19/2017 NILES Smith Primary JESSICA A Phyllis [id number] Insurance:ANTHEMPolic ADUDDELLDOB: Community [place] Number: [id number], [place] [id number] Repository [address]Cjv: (330) Date:2860-58-93SH [phone] () JOVON [place] [address]EK: 04/19/2017 Secondary NOT GIVENUNK [place] Insurance:SELF PAY [facility] Number: Effective Repository Date:2017-04-19 2017 Niles Ferguson [id number] Insurance:ANTHEMPolic ADUDDELLDOB: Community [place] y Number: [id number] [facility] Medical Centermatildawest [place] [id number] Repository [address]Fxp: 330) Date:6121-25-15MT [phone] () [id number], [place] [address]XN: 2017 Secondary NOT GIVENUNK Phyllis Insurance:[facility]LF [facility]Y [facility] Number: Effective Repository Date:2017 SOCIAL HISTORY SOCIAL HISTORY No Social History Records FoundFAMILY HISTORY FAMILY HISTORY No Family History Records FoundADVANCE DIRECTIVES ADVANCE DIRECTIVES No Advanced Directives Records FoundINFORMATION SOURCE INFORMATION SOURCE DATE CREATED AUTHOR AUTHOR'S ORGANIZATION 03/10/2018 YAZMIN
== END 2018-03-05 17:08 | disposition home or self-care (01) | DRG 872 ==
LOC: ED 12:18 → MS3 03-04 07:38
PROVIDERS: Admitting Provider Internal Medicine; Emergency Provider Emergency Medicine; Family Provider Internal Medicine; PCP Internal Medicine; Visit Provider Family Medicine
DX: A40.1 Sepsis due to streptococcus, group B (principal); L03.311 Cellulitis of abdominal wall; R65.20 Severe sepsis without septic shock; E78.5 Hyperlipidemia, unspecified; I10 Essential (primary) hypertension; E11.9 Type 2 diabetes mellitus without complications; F41.8 Other specified anxiety disorders; E83.42 Hypomagnesemia; Z79.84 Long term (current) use of oral hypoglycemic drugs; Z79.811 Long term (current) use of aromatase inhibitors; Z79.899 Other long term (current) drug therapy; Z90.13 Acquired absence of bilateral breasts and nipples; Z92.3 Personal history of irradiation; C50.912 Malignant neoplasm of unspecified site of left female breast; M06.9 Rheumatoid arthritis, unspecified; E66.9 Obesity, unspecified; Z68.34 Body mass index [BMI] 34.0-34.9, adult
CPT/HCPCS: 36415; 71260; 74177; 80048; 80053; 80202; 82962; 83605; 83735; 85025; 85027; 85610; 85730; 87040; 87149; 87186; 93306; 93312; 93320; 93325; 99283; J7030; J7040; J7050; Q9957; Q9967; A4216; C8929; J2405

== ENCOUNTER → 2018-09-03 08:40 | Outpatient (CLI) | payer BC, SELFPAY ==
[2018-03-01 14:11] VITALS: BMI 34.2
--- NOTE | 2018-09-03 08:46 | BD_ITS ---
STUDY: DUAL ENERGY X-RAY ABSORPTIOMETRY / DXA REASON FOR EXAM: Female, 63 years old. Early menopause. Loss of height. History of breast cancer and chemotherapy. TECHNIQUE: Bone Mineral Density (BMD) measurements of lumbar spine and bilateral hips were obtained. COMPARISON: None. FINDINGS: Lumbar Spine (L1-L4): g/cm2 (1.073) / T-score (-0.8) / Z-score (0.7) Findings are suggestive of normal bone density with a low fracture risk. Left Femur Total: g/cm2 (0.907) / T-score (-0.8) / Z-score (0.3) Left Femoral Neck: g/cm2 (0.793) / T-score (-1.8) / Z-score (-0.4) Right Femur Total: g/cm2 (0.926) / T-score (-0.6) / Z-score (0.5) Right Femoral Neck: g/cm2 (0.780) / T-score (-1.9) / Z-score (-0.5) BD/Dexa Bone Density Study IMPRESSION: The patient is considered osteopenic as outlined below according to World Charlie Organization (WHO) criteria with a moderate fracture risk. Reference Information: The T-score is the number of standard deviations above or below the standard which is normal for young adults at their peak bone mineral density. The World Health Organization (WHO) interprets the T-scores as follows: Above -1 Normal bone density Between -1 and -2.5 Osteopenia Equal to / or below -2.5 Osteoporosis As a practical clinical guideline, osteopenia may be graded as follows: Mild -1 through -1.5 Moderate -1.6 through -2.0 Severe -2.1 through -2.4 The Z-score is the number of standard deviations above or below age-matched controls. A Z-score of less than -1.5 would be considered abnormal. References: 1. NIH Osteoporosis and Related Bone Diseases http://www.osteo.org 2. International Society for Clinical Densitometry http://www.iscd.org 3. National Osteoporosis Foundation http://www.nof.org Electronically Signed: Edilberto Patel, at 11:29 EDT , Service support ,
== END ==
PROVIDERS: Family Provider Internal Medicine; PCP Internal Medicine; Referring Provider Internal Medicine; Visit Provider Internal Medicine
DX: Z78.0 Asymptomatic menopausal state (principal)
CPT/HCPCS: 77080

== ENCOUNTER → 2018-09-26 12:24 | Outpatient (CLI) | payer BC, SELFPAY ==
[2018-03-01 14:11] VITALS: BMI 34.2
[2018-09-26 14:21] LABS: Erythrocyte Sedimentation Rate 14 mm/hr (0-30)
[2018-09-26 14:22] LABS: Absolute Lymphocyte Count 1.24 X10^3/uL (0.83-4.51); Absolute Neutrophil Count 5.7 X10^3/uL (2.0-7.7); Basophil# 0.04 X10^3/uL; Basophil% 0.5 % (0-1); Eosinophil# 0.11 X10^3/uL; Eosinophils% 1.4 % (0-5); Hematocrit 38.4 % (37-47); Hemoglobin 12.6 g/dL (12.0-15.0); Lymphocyte # 1.24 X10^3/ul (4.0); Lymphocyte % 15.9 % (19-41); Mean Corp Hgb Conc 32.8 g/dL (32-36); Mean Corpuscular Hgb 28.2 pg (27.0-32.0); Mean Corpuscular Volume 85.9 fL (81-99); Mean Platelet Vol. 9.1 fl (6.2-12.0); Monocyte# 0.65 X10^3/uL; Monocyte% 8.3 % (0-10); NRBC Flagged by Analyzer 0 % (0-5); Neutrophil # 5.74 X10^3/uL (2.7-7.7); Neutrophil % 73.4 % (47-70); Platelet Count 243 K/mm3 (150-450); RBC Distribution Width CV 13.6 % (11.6-14.6); Red Blood Count 4.47 M/mm3 (4.2-5.4); White Blood Count 7.8 K/mm3 (4.4-11.0)
[2018-09-26 14:36] LABS: Albumin, Serum 3.7 g/dL (3.2-5.0); BUN 14 mg/dL (7-18); BUN/Creat Ratio 15.1 RATIO (10-20); Creatinine, Serum 0.93 mg/dL (0.55-1.02); EST Glomerular Filtration Rate 65 mL/min (>60); Est Glom Filt Rate - Afr Amer 78 mL/min (>60); Globulin 3.4 g/dL (2.2-4.2); Glucose 104 mg/dL (74-106); Protein, Total 7.1 g/dL (6.4-8.2)
[2018-09-26 14:37] LABS: ALB/GLOB Ratio 1.1 RATIO (0.9-2.4); AST(SGOT) 11 U/L (15-37); Alanine Aminotransfer ALT/SGPT 28 U/L (13-56); Alkaline Phosphatase 90 U/L (45-117); Anion Gap 8 (5-15); CRP 4.63 mg/L (0.0-3.0); Calcium,Total 9.1 mg/dL (8.5-10.1); Chloride 105 mmol/L (98-107); Potassium 4.1 mmol/L (3.5-5.1); Sodium Level 139 mmol/L (136-145)
== END ==
PROVIDERS: Family Provider Internal Medicine; PCP Internal Medicine; Referring Provider Internal Medicine Rheumatology; Visit Provider Internal Medicine Rheumatology
DX: L40.59 Other psoriatic arthropathy (principal); Z79.899 Other long term (current) drug therapy; L40.8 Other psoriasis; M25.511 Pain in right shoulder; M17.0 Bilateral primary osteoarthritis of knee; K21.0 Gastro-esophageal reflux disease with esophagitis; E11.9 Type 2 diabetes mellitus without complications; E78.5 Hyperlipidemia, unspecified; F41.9 Anxiety disorder, unspecified; K58.9 Irritable bowel syndrome, unspecified
CPT/HCPCS: 80053; 85025; 85652; 86140

== ENCOUNTER → 2019-07-23 13:39 | Outpatient (CLI) | payer BC, SELFPAY ==
[2018-03-01 14:11] VITALS: BMI 34.2
[2019-07-23 15:48] LABS: Absolute Lymphocyte Count 1.39 X10^3/uL (0.83-4.51); Basophil# 0.04 X10^3/uL; Basophil% 0.5 % (0-1); Eosinophil# 0.16 X10^3/uL; Eosinophils% 1.9 % (0-5); Hematocrit 39.4 % (37-47); Hemoglobin 12.6 g/dL (12.0-15.0); Lymphocyte # 1.39 X10^3/ul (4.0); Lymphocyte % 16.8 % (19-41); Mean Corpuscular Hgb 28.1 pg (27.0-32.0); Mean Corpuscular Volume 87.9 fL (81-99); Mean Platelet Vol. 9.5 fl (6.2-12.0); Monocyte# 0.61 X10^3/uL; Monocyte% 7.4 % (0-10); NRBC Flagged by Analyzer 0 % (0-5); Neutrophil # 6.04 X10^3/uL (2.7-7.7); Platelet Count 248 K/mm3 (150-450); RBC Distribution Width CV 13.2 % (11.6-14.6); RBC Distribution Width SD 42.5 fl (35.1-43.9); Red Blood Count 4.48 M/mm3 (4.2-5.4); White Blood Count 8.3 K/mm3 (4.4-11.0)
[2019-07-23 15:49] LABS: Erythrocyte Sedimentation Rate 21 mm/hr (0-30)
[2019-07-23 15:57] LABS: ALB/GLOB Ratio 1.1 RATIO (0.9-2.4); AST(SGOT) 15 U/L (15-37); Alanine Aminotransfer ALT/SGPT 29 U/L (13-56); Albumin, Serum 3.6 g/dL (3.2-5.0); Alkaline Phosphatase 83 U/L (45-117); Anion Gap 7 (5-15); BUN 10 mg/dL (7-18); BUN/Creat Ratio 15.7 RATIO (10-20); Chloride 103 mmol/L (98-107); Creatinine, Serum 0.64 mg/dL (0.55-1.02); EST Glomerular Filtration Rate 100 mL/min (>60); Est Glom Filt Rate - Afr Amer 121 mL/min (>60); Globulin 3.4 g/dL (2.2-4.2); Glucose 130 mg/dL (74-106); Potassium 3.9 mmol/L (3.5-5.1); Sodium Level 136 mmol/L (136-145)
== END ==
PROVIDERS: PCP Internal Medicine; Referring Provider Internal Medicine Rheumatology; Visit Provider Internal Medicine Rheumatology
DX: L40.59 Other psoriatic arthropathy (principal); L40.8 Other psoriasis; M17.0 Bilateral primary osteoarthritis of knee; M70.61 Trochanteric bursitis, right hip; K21.0 Gastro-esophageal reflux disease with esophagitis; E11.9 Type 2 diabetes mellitus without complications; E78.5 Hyperlipidemia, unspecified; F41.9 Anxiety disorder, unspecified; K58.9 Irritable bowel syndrome, unspecified; Z79.899 Other long term (current) drug therapy
CPT/HCPCS: 36415; 80053; 85025; 85652; 86140

== ENCOUNTER → 2019-08-19 12:40 | Outpatient (CLI) | payer BC, SELFPAY ==
[2018-03-01 14:11] VITALS: BMI 34.2
== END ==
PROVIDERS: PCP Internal Medicine; Visit Provider Family Medicine Hospice and Palliative Medicine
DX: Z11.59 Encounter for screening for other viral diseases (principal)
CPT/HCPCS: 87635; G2023; U0003

== ENCOUNTER → 2019-11-10 10:26 | Outpatient (CLI) | payer BC, SELFPAY ==
[2018-03-01 14:11] VITALS: BMI 34.2
[2019-11-12 12:07] LABS: Red Blood Cell Count Test/G6PD 4.19 x10E6/uL (3.77-5.28)
[2019-11-12 12:22] LABS: G6PD Quant Test 268 (127-427)
== END ==
PROVIDERS: PCP Internal Medicine; Referring Provider Internal Medicine Rheumatology; Visit Provider Internal Medicine Rheumatology
DX: L40.59 Other psoriatic arthropathy (principal); Z79.899 Other long term (current) drug therapy; L40.8 Other psoriasis; M17.0 Bilateral primary osteoarthritis of knee; M70.61 Trochanteric bursitis, right hip; K21.0 Gastro-esophageal reflux disease with esophagitis; E11.9 Type 2 diabetes mellitus without complications; E78.5 Hyperlipidemia, unspecified; F41.9 Anxiety disorder, unspecified; K58.9 Irritable bowel syndrome, unspecified
CPT/HCPCS: 36415; 82955

== ENCOUNTER → 2020-02-24 15:44 | Outpatient (CLI) | payer BC, SELFPAY ==
[2018-03-01 14:11] VITALS: BMI 34.2
--- NOTE | 2020-02-24 15:55 | CT_ITS ---
STUDY: CT ABDOMEN AND PELVIS WITH IV CONTRAST REASON FOR EXAM: Female, 64 years old patient with right upper quadrant (RUQ) abdominal pain for months. Patient treated for breast cancer with bilateral mastectomies and chemotherapy. RADIATION DOSAGE (If Supplied By Facility): CTDIvol = ( 19.07 ) mGy, DLP = ( 1546.65 ) mGycm TECHNIQUE: Transaxial images were obtained from the dome of the diaphragm to the symphysis pubis with oral contrast. 100 mL IV Isovue-370 was administered. Sagittal and coronal images were reconstructed. Individualized dose optimization techniques were used for this CT. COMPARISON: CT of the abdomen and pelvis dated 03/03/2018. FINDINGS: The visualized lung bases are unremarkable. The visualized portions of the heart are within normal limits. The liver has multiple enhancing nodules which appear to be enhancing more peripherally than centrally. The largest nodule measures approximately 1.8 cm in size. The gallbladder is contracted with what appears to be calcified gallstones. Normal spleen. Normal pancreas. Normal bilateral adrenal glands. Both kidneys are generally normal size and position. There appear to be bilateral nonobstructing renal calculi with the largest measuring 5 mm in size. There is no obvious hydronephrosis, hydroureter or radiopaque ureteral calculus. Delayed images document excretion of contrast by both kidneys. Normal visualized stomach. There is no evidence for dilated bowel, ascites or pneumoperitoneum. The small bowel has a grossly normal appearance. Enteric contrast under stool is visible throughout the colon with scattered diverticula. The appendix is visualized and appears normal. There is diffuse atherosclerotic calcification of the abdominal aorta, without a demonstrated aneurysm. Normal inferior vena cava. Normal retroperitoneum. Normal urinary bladder. There is atrophy of the uterus. Normal abdominal wall. The bones appear osteopenic. There is minimal anterolisthesis of L4-5. There is mild curvature of the thoracic and lumbar spine with convexity towards the left. There is diffuse heterogeneous attenuation of the bones suggesting possible metastasis. CT/Abdomen/Pelvis WITH Contrast IMPRESSION: 1. Multiple hepatic metastasis. 2. Possible skeletal metastasis. 3. Cholelithiasis. 4. Bilateral nonobstructing renal calculi. Electronically Signed: Ashley Mckeon MD at 2:37 EST , Service support ,
[2020-02-24 16:01] VITALS: BP 181/58; PULSE 108; RESP 14; TEMP 37.7; O2SAT 95; BMI 32.1
[2020-02-24] MEDS: MethylPREDNISolone 125 MG/2 ML Vial 60 MG IV (16:23)
[2020-02-24] MEDS: DiphenhydrAMINE 50 MG/ML Syringe IV (16:24)
--- NOTE | 2020-02-24 16:30 | NURSING ---
PT MEDICATED PER ORDER. PER PHARMACIST JANETH, IT IS FINE TO MEDICATE GREATER THAN ONE HOUR PRIOR TO SCAN. LIGHTS TURNED DOWN AND PT GIVEN CALL LIGHT. GIVEN WARM BLANKET. LABS DRAWN WITH IV START.
[2020-02-24 16:43] LABS: Platelet Count 102 K/mm3 (150-450); RET-HE 33.8 pg (30-35); Reticulocyte Count 3.67 % (0.5-1.5)
[2020-02-24 17:42] LABS: Vitamin B12 1689 pg/mL (211-911)
[2020-02-24 17:50] LABS: Creatinine, Serum 0.95 mg/dL (0.55-1.02); EST Glomerular Filtration Rate 63 mL/min (>60); Est Glom Filt Rate - Afr Amer 76 mL/min (>60); Estimated Creatinine Clearance 45.14 ml/min; Ferritin 894 ng/mL (8-252); Iron 121 ug/dL (50-170); Iron Binding Capacity,Total 313 ug/dL (250-450); LDH 501 U/L (84-246)
== END ==
PROVIDERS: PCP Internal Medicine; Visit Provider Nurse Practitioner
DX: R10.9 Unspecified abdominal pain (principal); D64.9 Anemia, unspecified
CPT/HCPCS: 74177; 82565; 82607; 82728; 82746; 83540; 83550; 83615; 83921; 85045; 96374; Q9967

== ENCOUNTER 2020-02-29 12:51 | Emergency (ER) | payer BC, SELFPAY ==
[2020-02-24 16:01] VITALS: BMI 32.1
[2020-02-29 12:52] VITALS: BP 102/68; PULSE 91; RESP 16; TEMP 36.1; O2SAT 95; BMI 31.1
[2020-02-29 13:30] LABS: Bacteria 0 SEEN /hpf (None Seen); Mucous, Urine 0 SEEN /hpf (<or=2+); Red Blood Cells-Urine 0 SEEN /hpf (0-5); White Blood Cells 0 SEEN /hpf (0-5)
--- NOTE | 2020-02-29 13:32 | ED.DCSUM_ITS ---
- ER Visit Summary Date of Service: 02/29/20 Chief Complaint: Abdominal pain History of Present Illness: The patient is a 64 F who presents with abdominal pain that began today. Patient states her pain is over the right upper quadrant and radiates around to her back and under her right shoulder blade. Patient states this became worse today after eating aguayo for breakfast. Patient describes her pain as dull. Patient states her pain is starting to improve. Patient admits to nausea but denies any vomiting. Patient denies any dysuria or hematuria. Patient denies any diarrhea, melena, or hematochezia. Physical Examination: Vital signs are stable. Patient is afebrile. Patient is in no acute distress. Oral mucosa is pink and moist. Neck is supple. Trachea is midline. There is no JVD. Heart was regular rate and rhythm. Lungs are clear and equal bilaterally. Abdomen is soft. Bowel sounds are normal. There is right upper quadrant tenderness. There is a positive Cheatham sign. There is no rebound or guarding noted. Cranial nerves II through XII are intact. There are no focal motor or sensory deficits noted. Extremities are intact. There is no calf tenderness or edema. Test Results: CBC shows a normal white blood cell count but there are 5 bands, 8% metamyelocytes, 2% myelocytes, and 11 nucleated red blood cells. It was were also low at 104. Comprehensive metabolic profile was essentially within normal limits. Lipase was normal. Urinalysis does not show any evidence of urinary tract infection. Emergency Department Course and Treatment: Patient was given IV fluids, morphine, and Zofran. Patient is feeling better on reevaluation. Case was discussed with Dr. Pantoja. He recommended placing the patient on oral antibiotics and following up with general surgery. Patient has seen Dr. Chong in the past. Case was discussed with Dr. Chong. She schedule an appointment for the patient tomorrow at 11 AM. Patient was advised of this. Patient was given her first dose of Cipro and Flagyl here. Patient was given prescriptions for Cipro and Flagyl. Patient understood and was agreeable with the plan. All questions were answered. Disposition: Discharge home Impression: 1. Right upper quadrant abdominal pain 2. History of cholelithiasis This note was generated with Delta Systemsation software. It may contain incorrect words, spelling, and punctuation that were not noted in review of the chart prior to signing ED Disposition - Plan for ED Patient: Disposition: Home or Assisted Living Diagnosis: Right upper quadrant abdominal pain Instructions: ED Abdominal Pain Gallstone Poss Prescriptions: Ciprofloxacin [Cipro] 500 mg PO BID #14 tab Transmission Status: Received by [facility] metroNIDAZOLE [Flagyl] 500 mg PO Q6H #40 tab Transmission Status: Received by [facility] Oxycodone HCl/Acetaminophen [Percocet 5/325] 1 tab PO Q6H PRN PRN 3 Days #12 tab PRN Reason: Pain Prescription Printed Referrals: Ruth Jones DO [Primary Care Provider] - Hodan Chong MD [STAFF PHYSICIAN] - 1 Day Harpreet Pantoja DO [STAFF PHYSICIAN] - 3-5 Days
[2020-02-29 13:33] LABS: Color, Urine Yellow (Yellow); Glucose, Dipstick Normal (Normal); Ketone-Dipstick Negative (Negative); Leukocyte Esterase-Dipstick 25 /ul (Negative); Nitrite-Dipstick Negative (Negative); Occult Blood-Urine Negative /ul (Negative); Protein-Dipstick Negative (Negative); Urine Bilirubin Dipstick Negative (Negative); Urine Clarity Clear (Clear); Urine Urobilinogen Normal (Normal); Urine pH 6.5 (5.0 - 8.0)
[2020-02-29 13:39] LABS: Squamous Epithelial Cells - UA 0-5 SEEN /hpf (5-10)
[2020-02-29] MEDS: 0.9% Normal Saline 1,000 ML 1000 ML IV (13:52)
[2020-02-29] MEDS: Morphine 4 MG/ML Syringe IV (13:53)
[2020-02-29] MEDS: Ondansetron 4 MG/2 ML Vial IV (13:53)
[2020-02-29 14:03] LABS: Hematocrit 28.3 % (37-47); Hemoglobin 9.1 g/dL (12.0-15.0); Mean Corp Hgb Conc 32.2 g/dL (32-36); Mean Corpuscular Hgb 27.7 pg (27.0-32.0); Mean Corpuscular Volume 86.3 fL (81-99); POSITIVE COUNT YES; POSITIVE MORPHOLOGY YES; Platelet Count 104 K/mm3 (150-450); RBC Distribution Width CV 18.8 % (11.6-14.6); RBC Distribution Width SD 58.5 fl (35.1-43.9); Red Blood Count 3.28 M/mm3 (4.2-5.4)
[2020-02-29 14:05] LABS: Differential Indicated MANUAL DIFF
[2020-02-29 14:25] LABS: ALB/GLOB Ratio 0.8 RATIO (0.9-2.4); AST(SGOT) 67 U/L (15-37); Alanine Aminotransfer ALT/SGPT 36 U/L (13-56); Albumin, Serum 3.2 g/dL (3.2-5.0); Alkaline Phosphatase 189 U/L (45-117); Anion Gap 9 (5-15); BUN 15 mg/dL (7-18); BUN/Creat Ratio 16.9 RATIO (10-20); Calcium,Total 9.2 mg/dL (8.5-10.1); Chloride 103 mmol/L (98-107); Creatinine, Serum 0.89 mg/dL (0.55-1.02); EST Glomerular Filtration Rate 68 mL/min (>60); Est Glom Filt Rate - Afr Amer 82 mL/min (>60); Estimated Creatinine Clearance 48.19 ml/min; Globulin 3.9 g/dL (2.2-4.2); Glucose 230 mg/dL (74-106); Lipase 144 U/L (73-393); Potassium 3.7 mmol/L (3.5-5.1); Protein, Total 7.1 g/dL (6.4-8.2); Sodium Level 136 mmol/L (136-145)
[2020-02-29 14:28] LABS: Corrected WBC 6.4 K/mm3 (4.4-11.0); Eosinophil 1 % (0-5); Lymphocyte 20 % (19-41); Metamyelocyte 8 % (0-1); Monocyte 9 % (0-10); Myelocyte 2 (0-0); Neutrophil-Band 5 % (0-5); Neutrophil-Segmented 55 % (47-70); Nucleated Red Bld Cells,Manual 11 % (0-5); Total Cells Counted 100 (MANUAL DIFF)
[2020-02-29 14:29] LABS: Anisocytosis 1+; Platelet Estimate SLT DEC (ADEQ); Red Cell Morphology N CHROM NORMAL (NORM C&C)
[2020-02-29 14:30] LABS: Absolute Lymphocyte Count 1.28 X10^3/uL (0.83-4.51); Absolute Neutrophil Count 3.8 X10^3/uL (2.0-7.7); Lymphocyte # 1.28 X10^3/ul (4.0); Neutrophil # 3.84 X10^3/uL (2.7-7.7)
[2020-02-29 17:45] VITALS: BP 129/58; PULSE 88; RESP 14; O2SAT 98
[2020-02-29] MEDS: Ciprofloxacin 500 MG Tablet PO (18:50)
[2020-02-29] MEDS: metroNIDAZOLE 500 MG Tablet PO (18:50)
[2020-03-01 13:29] LABS: Pathologist Review Reviewed
== END 2020-02-29 19:15 | disposition home or self-care (01) ==
PROVIDERS: Emergency Provider Emergency Medicine; PCP Internal Medicine
DX: R10.11 Right upper quadrant pain (principal); R11.0 Nausea
CPT/HCPCS: 80053; 81001; 83690; 85025; 96361; 96374; 96375; 99284; J7030; A4216; J2405

== ENCOUNTER 2020-03-09 11:49 | Day surgery (SDC) | payer BC, SELFPAY ==
[2020-03-05 17:34] LABS: Hemoglobin A1c 7.4 % (3.8-5.6)
--- NOTE | 2020-03-08 08:56 | HP.PCM_ITS ---
History and Physical Date of Admission: 03/09/20 Jessica Rojas 1955 ? ? REFERRING PHYSICIAN: [facility], Sami Ferguson ? CHIEF COMPLAINT: No chief complaint on file. ? HPI: The patient is a 64 year old female presents with RUQ abdominal pain She presented to [facility] ED on 03/04/2020 with this. Had elevated AST of 67, normal ALT, elevated alk phos of 189, normal tbili. She states that this pain has been occurring for the past few weeks. ? CT scan 02/24/2020 - The liver has multiple enhancing nodules which appear to be enhancing more peripherally than centrally. The largest nodule measures approximately 1.8 cm in size. The gallbladder is contracted with what appears to be calcified gallstones. Normal spleen. Normal pancreas. ? Patient has known bone and liver metastasis from her breast cancer diagnosed in 2018. She will be undergoing bone marrow biopsy tomorrow with Dr. Pantoja. She is sched uled for liver biopsy on 03/05/20 She states that the abdominal discomfort is tolerable, however, it is still present. She denies fevers. ? ? PAST MEDICAL HISTORY ? Breast cancer metastasized to axillary lymph node, left (HCC) 03/22/2017 ? Diverticulosis of colon with hemorrhage ? ? Personal history of colonic polyps ? ? PMH - PAST MEDICAL HISTORY OF ? ? SPASTIC COLON ? Psoriatic arthritis (HCC) ? ? Tension headache ? ? Type II or unspecified type diabetes mellitus without mention of complication, not stated as uncontrolled ? ? PAST SURGICAL HISTORY ? COLONOSCOP W/ OR W/O [facility] SPEC ? 2000 ? Colonoscopy ? COLONOSCOP W/ OR W/O [facility] SPEC ? 12/09/2012 ? Colonoscopy ? EGD W/O OR W/BRUSH/WASH ? 12/09/2012 ? EGD ? EXCIS BREAST LESION ? ? ? Left breast ? HYSTEROSCOPY WBX WWO D AND C ANDOR POLYPECTOMY ? 2011 ? PMB- polyps ? LIGATE FALLOPIAN TUBE ? ? ? MASTECTOMY, RADICAL Bilateral 2017 ? PAST SURGICAL HISTORY OF ? ? ? cyst removed from back ? S PORTACATH [id number] ? 05/08/2017 ? right sided portacath [place] ? ? Current Outpatient Medications ? LORazepam (ATIVAN) 1 mg tablet Take 1 tablet by mouth every 8 hours as needed for up to 30 days. ? anastrozole (ARIMIDEX) 1 mg tablet Take 1 tablet by mouth once daily. ? acetaminophen 300 mg-caffeine 40 mg-butalbital 50 mg (FIORICET) per capsule as needed. ? clobetasol (TEMOVATE) 0.05 % cream as directed. ? ondansetron (ZOFRAN) 8 mg tablet Take 1 tablet by mouth every 8 hours as needed for Nausea/Vomiting. ? CALCIUM ORAL Take 1,000 mg by mouth once daily. ? rosuvastatin (CRESTOR) 10 mg tablet Take 10 mg by mouth once daily. ? cholecalciferol (VITAMIN D-3) 5,000 unit tab Take 5,000 Units by mouth once daily. ? ferrous sulfate 325 mg (65 mg iron) tablet Take 325 mg by mouth every other day. ? diphenhydrAMINE (BENADRYL) 25 mg capsule Take 25 mg by mouth at bedtime as needed. ? hydrocortisone valerate (WESTCORT) 0.2 % cream Apply 1 application to affected area twice daily. ? metFORMIN ER (GLUCOPHAGE XR) 500 mg 24 hr tablet Take 1,000 mg by mouth twice daily. ? Omeprazole (PRILOSEC) 40 mg capsule Take 40 mg by mouth once daily. ? fluoxetine 20 mg ORAL capsule Take 20 mg by mouth once daily. ? MULTIVITAMIN TAB Take one(1) tablet daily. ? TYLENOL EXTRA STRENGTH 500 MG TAB Take two(2) tablets every six(6) hours as needed for pain. ? ciprofloxacin HCl (CIPRO) 500 mg tablet ? ? metroNIDAZOLE (FLAGYL) 500 mg tablet ? ? oxyCODONE-acetaminophen (PERCOCET) 5-325 mg tablet ? ? sulfaSALAzine (AZULFIDINE) 500 mg tablet Take 1 tablet by mouth twice daily. ? ibuprofen (MOTRIN ORAL) Take by mouth. PRN ? traMADol 50 mg tablet Take 50 mg by mouth three times daily as needed. ? ? ALLERGIES: Iv Dye [Iodinated Contrast Media], Lisinopril, Shellfish, and Victoza [Liraglutide] ? PERSONAL HISTORY: Social History ?Tobacco Use ? Smoking status: Former Smoker ? ? Packs/day: 1.00 ? ? Years: 20.00 ? ? Pack years: 20.00 ? ? Types: Cigarettes ? ? Quit date: 02/25/2000 ? ? Years since quittin.0 ? Smokeless tobacco: Never Used Substance Use Topics ? Alcohol use: No ? Drug use: No ? FAMILY HISTORY ? Osteoporosis Mother ? ? Arthritis Mother ? ? GI Mother ? ? IBS ? Diabetes Father ? ? Heart Father ? ? Lipids Father ? ? Breast Cancer Maternal Grandmother ? ? Prostate Cancer Maternal Grandfather ? ? Osteoporosis Sister ? ? Hypertension Sister ? ? ? REVIEW OF SYSTEMS: General - denies fevers, has had decreased appetite notes several pounds weight loss Cardiovascular - denies chest pain, denies history of [place] Pulmonary - denies shortness of breath, denies coughing up blood Gastrointestinal - denies abdominal pain, denies hematemesis, denies blood in stools Neurological - denies seizures, denies chronic numbness/weakness of extremities, denies chronic headaches Genitourinary - denies burning with urination, denies blood in urine Hematological - denies spontaneous/prolonged bleeding Skin - denies nonhealing skin wounds Musculoskeletal - has psoriatic arthritis, has skeletal metastases Endocrine - has diabetes, no thyroid problems Psychological ? denies hallucinations ? PHYSICAL EXAMINATION: General: The patient is 64 year old female, well nourished, well hydrated in no acute distress. The patient is oriented to time, place, and person. VITALS: Pulse 110, temperature 36.9 ?C (98.4 ?F), weight 76.2 kg (168 lb), last menstrual period 02/04/2010, SpO2 95 %. Body mass index is 32.27 kg/m?. ? Head ? Normocephalic. EOM intact with sclera clear and no icterus noted. Mouth with mucus membranes moist. Neck - supple with no jugular venous distention noted. Trachea is midline. Lungs ? clear to auscultation. Normal breath sounds. No rales/rhonchi/wheezing noted. No labored breathing noted, such as retractions. No cough heard. Heart ? normal S1 and S2 auscultated. No rubs/clicks/murmurs noted. Regular rate. Abdomen ? soft and benign. Tender RUQ but no peritoneal signs, Normal bowel sounds. No abdominal bruits noted. Extremities ? no calf tenderness noted. No pitting edema noted. Skin ? normal skin integrity. Neurological ? gait normal, no focal deficits noted. Psych ? calm and appropriate LABORATORY VALUES: As Noted RADIOLOGIC STUDIES: As Noted ? ? IMPRESSION: RUQ abdominal pain, known cholelithiasis ? PLAN: I have discussed the above with the patient. I have offered laparoscopic cholecystectomy, possible cholangiograms I have counseled the patient as to the risks of the procedure, including but not limited to: infection, bleeding, injury to any blood vessels/nerves, scar tissue, injury to any intrabdominal organs, injury to kidney/ureters, injury to bowel/bladder, injury to the common bile duct/biliary tree, bile leakage, intraabdominal abscess/bleeding, hernias at incisional sites, wound infections, possible open procedure, complications of anesthesia, postoperative pneumonia/c ardiac problems/blood clots etc. the patient understands. The patient was offered a surgery/procedure. The provider and patient have discussed in detail the risk of exposure to and/or potential harm posed by the COVID-19 virus with having a surgery/procedure at this time versus the risk of delaying the surgery/procedure. It is not possible to know either the risk of delaying the surgery or procedure or chance of getting an infection with perfect accuracy, but a joint decision was made between the patient and the provider to proceed at this time with the scheduled surgery/procedure. ? ? I have answered all questions to the patient?s satisfaction and the patient has no further questions. . ? Hodan Chong MD
[2020-03-09] VITALS (8 sets, daily range): BP systolic 130–160; BP diastolic 51–67; PULSE 75–112; RESP 16; TEMP 36.3–37.4; O2SAT 92–97; BMI 30.3
--- NOTE | 2020-03-09 | IMM_PTH ---
PATIENT: ERICA RODRIGUEZ LOC: [facility] [place] U#:[id number] AGE/SX: 64/F ROOM: RE03/09/[address]: Dr. Hodan Chong MD : 1955 BED: DIS: 03/09/2020 SPEC #: [id number] RECD: 03/11/20 11:59 STATUS: JOSE REQ #: [id number] SOILA: 03/09/20 00:[address]: Hodan Chong DEPT: IMMUNOHISTOCHEMISTRY RECD BY: Ada Scott ENTERED: 03/11/20 12:01 SP TYPE: IMMUNO OTHR DR: Dr. Ruth Jones DO Tissues: Gallbladder, NOS Procedures: RCC (add) NAPSIN A (add) CA-125 (add) CEA (add) CK19 (add) CK20 (add) CK7 (add) CK8 (add) HER2 ERNIE (add) MAMM (add) P53 (add) VA (add) TTF1 (add) Vimentin (add) Pankeratin (add) GATA3 (add) ER (initial) PHYSICIAN & [address] [address] SPECIMEN INFORMATION: Tissue Source: Gallbladder Clinical Info: RUQ abdominal pain, cholelithiasis Specimen Number: [id number] CPT code: 72433, 60436 x16 METHODOLOGY: Deparaffinized sections of prefer/formalin-fixed tissue or PAP/DQ stained slides are incubated with monoclonal/polyclonal antibodies/oligonucleotide probes. Localization is made via biotin free immunoperoxidase method. Appropriate controls are performed and reacted as expected. Results on target cell population are indicated in the following table: RESULTS: ANTIBODY / CLONE RESULT ER (6F11) positive, 65%, moderate intensity VA (1E2) negative, 0% Her-2neu (CB11) negative, 0% Mammaglobin (31A5) negative GATA3 (L50-823) positive AE1-3 (AE1/AE3/PCK26) positive CK7 (OV-TL12/30) positive CK8 (81lxxiR50) positive CK20 (KS20.8) negative Vimentin (V9) negative CK19 (A53-B/A2.26) positive TTF-1 (8G7G3/1) negative Napsin A (Rabbit Polyclonal) negative RCC (PN-15) negative CEA (11-7/TF-3HB-1) positive, focal CA125 (OC125) positive, focal P53 (DO-7) positive, 70% These tests were developed and their performance characteristics determined by [facility]. They may not have been cleared or approved by the U.S. Food and Drug Administration. The FDA has determined that such clearance or approval is not necessary. The above immunohistochemical/dualISH markers are ordered and reviewed by the Pathologist. INTERPRETATION: Gallbladder, cholecystectomy: Metastatic adenocarcinoma consistent with breast primary. AM:lilibeth 03/12/2020
[2020-03-09] MEDS: Lactated Ringers 1,000 ML 75 ML IV (07:00)
[2020-03-09 12:56] LABS: Bedside Glucose 154 mg/dL (70-110)
[2020-03-09] MEDS: Cefotetan 2 GM in 0.9% NS 100 ML IV (13:13)
--- NOTE | 2020-03-09 13:13 | DCINST_ITS ---
Discharge Diet: No Restrictions - avoid carbonated beverages for a couple of days, drink plenty of fluids Discharge Activity: Return to Normal Activity, May not drive while taking narcotic pain medications. Lifting Restrictions: no lifting greater than 10 pounds for two weeks Call your doctor if your incision/area has: Continuous Slow Oozing, Foul Smelling Discharge Additional Instructions: Recommended pain control regimen - May take 600 mg ibuprofen (Motrin) and then in 3-4 hours, may take 650 mg acetaminophen (Tylenol), then in 3-4 hours may take 600 mg ibuprofen, then in 3- 4 hours may take 650 mg acetaminophen and so on for 2-3 days May take narcotic pain medication for pain that is not controlled by above and at night for comfort through the night Leave dressings in place May get dressings wet in shower - do not scrub in the area and pat dry Do not soak - no tub baths/swimming If dressing appears to be soiled/open at one end/no longer sealed - may remove dressing but leave site uncovered (do not replace with any type of dressing) - leave steristrips in place - may get wet but do not scrub in the area and pat dry You may have bleeding at the dressing sites. If small amounts and not seeping through the dressing, do not worry - leave dressing in place. If starting to seep through the dressing, you may remove the dressing and take a clean wash clothe and apply direct pressure to the area for at least an hour and then apply a new clean bandaid at the site. If it still has not stopped bleeding, please call the office during the day or the [facility] cover mat machine operator at after hours and ask for Dr. Chong Allergies/Adverse Reactions: Allergies shellfish derived Allergy (Mild, Verified 03/09/20 12:11) Hives iodine Allergy (Verified 03/09/20 12:11) Hives lisinopril Allergy (Verified 03/09/20 12:11) Shortness of breath liraglutide [From Victoza] Adverse Reaction (Verified 03/09/20 12:11) Nausea, VOMITING IV DYE Allergy (Mild, Uncoded 03/09/20 12:11) Hives Medications to take at Discharge Butalbital/Aspirin/Caffeine [Fiorinal 50-325-40 mg Capsule] 1 tab PO DAILY PRN PRN 03/21/13 Fluoxetine [Prozac] 20 mg PO DAILY 03/21/13 Multivitamins,Therapeutic [Multivitamin] 1 tablet PO QHS 03/21/13 Omeprazole [Prilosec] 40 mg PO DAILY 03/21/13 Acetaminophen [Tylenol] 500 - 1,000 mg PO Q6H PRN PRN 04/18/17 Aspirin/Acetaminophen/Caffeine [Excedrin Migraine Caplet] 1 each PO DAILY PRN PRN 04/18/17 Calm Day 1 cap PO DAILY 04/18/17 Metformin HCl 1,000 mg PO BID 04/18/17 Calcium 600-Vit D3 400 Tablet 1 capsule PO DAILY 01/19/18 Lorazepam [Ativan] 0.5 mg PO Q8H PRN PRN 01/19/18 Ondansetron [Zofran] 8 mg PO Q8H PRN PRN 01/19/18 traMADol [Ultram] 50 mg PO TID PRN 03/01/18 Amlodipine [Norvasc] 5 mg PO QHS 03/05/20 Cholecalciferol (Vitamin D3) [Vitamin D3] 5,000 unit PO DAILY 03/05/20 DiphenhydrAMINE [Benadryl] 25 mg PO PRN PRN 03/05/20 Ferrous Sulfate [Iron] 325 mg PO QODAY 03/05/20 Oxycodone HCl/Acetaminophen [Oxycodone-Acetaminophen 5-325] 1 ea PO Q6H PRN 03/05/20 Rosuvastatin Calcium [Crestor] 10 mg PO QHS 03/05/20 Oxycodone [Oxyir] 5 mg PO Q4H PRN PRN 5 Days #20 tablet 03/09/20 The following prescriptions were given: Oxycodone [Oxyir] 5 mg PO Q4H PRN PRN 5 Days #20 tablet PRN Reason: Pain Score 4-10 Transmission Status: Received by [id number] Primary Care Physician: Ruth Jones DO [Primary Care Provider] - Test Results: Test results from this visit will be discussed in further detail at your follow- up appointment, if applicable. Please Follow Up With: Hodan Chong MD - call When: to be seen in 1-2 weeks, please call for date and time, thank you
--- NOTE | 2020-03-09 13:15 | GALL_PTH ---
PATIENT: ERICA RODRIGUEZ [place] [facility] [place][id number] AGE/SX: 64/F ROOM: RE03/09/[address]: Dr. Hodan Chong MD : 1955 BED: DIS: 03/09/2020 SPEC #: [id number] RECD: 03/09/20 15:12 STATUS: JOSE REWendy #: [id number] SOILA: 03/09/20 13:[address]: Hodan Chong DEPT: SURGICAL PATHOLOGY RECD BY: Angie Hewitt ENTERED: 03/10/20 07:15 SP TYPE: DAISY ZELAYA DR: Dr. Ruth Jones DO Tissues: Gallbladder, NOS Procedures: Surgery Specimen Level III HEADER OPERATION: Laparoscopic cholecystectomy with IOC PRE-OP DIAGNOSIS: RUQ abdominal pain, known cholelithiasis TISSUE SUBMITTED: Gallbladder MICROSCOPIC DIAGNOSIS Gallbladder, cholecystectomy: Metastatic adenocarcinoma consistent with breast primary. Cholesterolosis and chronic inflammation. See comment. AM:lilibeth 03/12/2020 COMMENT Immunohistochemistry ([id number]) supports the above diagnosis. The adenocarcinoma involves the muscle wall, serosal surface, fibrofatty tissue and the cystic duct. Also, there are multiple foci of angiolymphatic invasion by carcinoma. This case was discussed with Dr. Chong on 03/12/2020 at 9:17 a.m. MICROSCOPIC DESCRIPTION Slides are reviewed. GROSS DESCRIPTION Received is one container labeled with the patient's name and designated gallbladder. The specimen consists of a gallbladder measuring 5.5 x 3 x 1.7 cm. The external surface is smooth and glistening. Focally, it is granular, hemorrhagic and contains cautery artifact. The lumen of the gallbladder contains yellow mucoid bile and no calculi are identified. The mucosa is bile-stained and without any mass lesions. The gallbladder wall averages 0.4 cm in thickness and is free of mass lesions. Bell Ringer sections of the gallbladder and the cystic duct at margin of resection are submitted in one cassette. / AM:lilibeth 03/10/20 TC:0 CPT: 97049
--- NOTE | 2020-03-09 13:17 | OP.PCM_ITS ---
Report of Operation Date of Procedure: 03/09/20 Pre-Operative Diagnosis: cholelithiasis and RUQ abdominal pain Post-Operative Diagnosis: cholelithiasis and RUQ abdominal pain, chronic cholecystitis Surgery/Procedure Performed:: laparoscopic cholecystectomy Description of Surgical Findings:: metastatic lesions to the liver, chronic cholecystitis, thick inspissated gallbladder mucus green colored noted in the gallbladder strike on machine operator: Mona Quinteros Type of Anesthesia:: General Anesthesiologist: Artie Valadez Specimen's removed: gallbladder and contents Estimated Blood Loss (mL): < 5 ml Fluids Replaced: 600 ml Description of Procedure: After informed consent was given, the patient was brought to the Operating Room. Appropriate time out protocol was followed. The patient was placed in the supine position. The patient was then placed under general endotracheal anesthesia by the anesthesia provider. The abdomen was then prepped with a sterile surgical skin preparation and sterile surgical drapes were placed. The infraumbilical skin fold was grasped with penetrating clamps and the skin and subcutaneous tissues were infiltrated with 0.25% marcaine with epinephrine. A skin incision was then made with a 15 blade scalpel. The anterior abdominal wall was elevated and a Veress needle was carefully inserted into the intraabdominal cavity. It was checked to be in the proper position with a normal saline drop test. A CO2 pneumoperitoneum was then created. Once this was achieved, then the Veress needle was removed and an 11mm trocar was placed in its stead. A 10mm laparoscope was then inserted into the trocar and careful attention was directed to the intraabdominal contents. There was no evidence of injury to any intraabdominal organs from insertion of the Veress needle or the trocar. Under direct visualization, a 5mm subxiphoid trocar and two lateral 5mm right subcostal trocars were placed. The skin and subcutaneous tissues at these sites were infiltrated with 0.25% marcaine with epinephrine prior to placement of these trocars. Attention was then directed to the right upper quadrant of the abdomen. Of note, the patient had multiple metastatic lesions to the liver. The liver was enlarged and enveloped the small contracted gallbladder. Graspers were placed in the lateral trocars to grasp the distal aspect of the gallbladder and direct it cephalad and to grasp the gallbladder at Carroll?s pouch and direct it laterally. Dissection then began on the proximal gallbladder continuing down to the area of the triangle of Calot to bluntly dissect out the cystic duct. The neck of the gallbladder was identified and blunt dissection continued to dissect out a segment of the cystic duct. A clip was then placed on the neck of the gallbladder. Two clips were placed proximally and the cystic duct was then transected. The cystic artery was visualized and bluntly isolated and then two clips were placed proximally and one clip distally and then it was transected between the proximal and distal clips. The gallbladder was then from the liver bed using electrocautery. Once from the liver bed, it was placed in an Endobag. It was then brought out via the umbilical port. It was then forwarded to pathology for analysis. The liver bed was carefully examined. There was no evidence of bile leakage or bleeding. The cystic duct stump and cystic artery stump had their clips intact and there was no evidence of bile leakage or bleeding. The remainder of the abdomen was grossly normal. The CO2 was released and all trocars removed intact. The periumbilical fascia was approximated with a [id number] 0 vicryl suture. All skin incision were closed with 4-0 monocryl in a subdermal fashion. Cavilol and Steristrips were used to reinforce the skin closure. Sterile dressings were applied to all wounds. Sponge, needle and instrument count was verified and correct at time of skin closure. The patient was extubated and brought to the Recovery Room in stable condition. - Complications none noted - Admit VTE Documentation VTE Present on Admission: Yes VTE Mechan Device Prophylaxis: SCD's
[2020-03-09] MEDS: Bupiv/Epi 0.25% 30 ML Vial (14:00)
[2020-03-09] MEDS: Lactated Ringers 1,000 ML 100 ML IV (15:38)
[2020-03-09] MEDS: HYDROcodone Bitartrate/Apap 5/325 Tablet PO (16:19)
== END 2020-03-09 17:46 | disposition home or self-care (01) ==
LOC: SDC 11:49 → AC 11:49
PROVIDERS: Anesthesiology; PCP Internal Medicine; Referring Provider Surgery; Visit Provider Surgery
PROC: (CPT 47610; principal; 2020-03-09 12:55)
DX: C78.89 Secondary malignant neoplasm of other digestive organs (principal); K80.10 Calculus of gallbladder with chronic cholecystitis without obstruction; C77.3 Secondary and unspecified malignant neoplasm of axilla and upper limb lymph nodes; C78.7 Secondary malignant neoplasm of liver and intrahepatic bile duct; C79.51 Secondary malignant neoplasm of bone; C50.919 Malignant neoplasm of unspecified site of unspecified female breast; E11.9 Type 2 diabetes mellitus without complications; Z87.19 Personal history of other diseases of the digestive system; L40.50 Arthropathic psoriasis, unspecified; Z82.49 Family history of ischemic heart disease and other diseases of the circulatory system; Z88.8 Allergy status to other drugs, medicaments and biological substances; Z90.13 Acquired absence of bilateral breasts and nipples; Z80.3 Family history of malignant neoplasm of breast; Z79.84 Long term (current) use of oral hypoglycemic drugs; Z79.899 Other long term (current) drug therapy; Z87.891 Personal history of nicotine dependence
CPT/HCPCS: 47562; 82962; 83036; 87426; 88304; 88341; 88342; C9803; J7120; J2405

== ENCOUNTER → 2020-03-10 11:43 | Outpatient (REF) | payer BC, SELFPAY ==
[2020-03-09 12:39] VITALS: BMI 30.3
[2020-03-19 15:00] LABS: Miscellaneous Lab Procedure SEE PATH
== END ==
LOC: LABSPEC 11:43
PROVIDERS: PCP Internal Medicine; Visit Provider Internal Medicine Hematology & Oncology
DX: C50.919 Malignant neoplasm of unspecified site of unspecified female breast (principal)

== ENCOUNTER → 2020-04-07 11:20 | Outpatient (CLI) | payer MEDICARE, SELFPAY ==
[2020-03-09 12:39] VITALS: BMI 30.3
[2020-04-07 11:33] VITALS: BP 131/45; PULSE 67; RESP 16; TEMP 36.9; O2SAT 100; BMI 30.2
[2020-04-07 13:36] VITALS: BP 156/59; PULSE 68; RESP 16; O2SAT 98
== END ==
PROVIDERS: PCP Internal Medicine; Referring Provider Internal Medicine Hematology & Oncology; Visit Provider Internal Medicine Hematology & Oncology
DX: C79.81 Secondary malignant neoplasm of breast (principal)
CPT/HCPCS: 36569

== ENCOUNTER 2020-04-09 07:56 | Outpatient (CLI) | payer MEDICARE, SELFPAY ==
[2020-04-07 11:33] VITALS: BMI 30.2
[2020-04-09] VITALS (7 sets, daily range): BP systolic 99–117; BP diastolic 35–58; PULSE 65–71; RESP 16–18; TEMP 35.8–36.2; O2SAT 94–98; BMI 30.2
[2020-04-09] MEDS: 0.9% NaCl VAD Flush IV ×2 (08:17→12:45)
== END 2020-04-09 14:00 | disposition home or self-care (01) ==
LOC: MEDOUTP 07:58
PROVIDERS: PCP Internal Medicine; Referring Provider Internal Medicine Hematology & Oncology; Visit Provider Internal Medicine Hematology & Oncology
DX: Z51.89 Encounter for other specified aftercare (principal); C79.51 Secondary malignant neoplasm of bone; D61.818 Other pancytopenia
CPT/HCPCS: 36430; 86850; 86900; 86901; 86920; 86922; J7040; P9016; A4216

== ENCOUNTER 2020-04-13 07:51 | Outpatient (CLI) | payer MEDICARE, SELFPAY ==
[2020-04-09 08:12] VITALS: BMI 30.2
[2020-04-13 08:07] VITALS: BP 95/59; PULSE 76; RESP 16; TEMP 36.1; O2SAT 100; BMI 30.2
[2020-04-13 08:21] VITALS: BP 95/59; PULSE 76; RESP 16; TEMP 36.1; O2SAT 100
[2020-04-13 08:36] VITALS: BP 115/54; PULSE 78; RESP 16; TEMP 36.4; O2SAT 96
[2020-04-13 08:55] VITALS: BP 122/52; PULSE 85; RESP 16; TEMP 36.5; O2SAT 96
[2020-04-13 09:09] VITALS: BP 122/47; PULSE 81; RESP 16; TEMP 36.6; O2SAT 97
[2020-04-13 09:45] VITALS: BP 114/50; PULSE 85; RESP 16; TEMP 36.4; O2SAT 98
== END 2020-04-13 15:02 | disposition home or self-care (01) ==
LOC: MEDOUTP 07:52
PROVIDERS: PCP Internal Medicine; Referring Provider Internal Medicine Hematology & Oncology; Visit Provider Internal Medicine Hematology & Oncology
DX: D61.818 Other pancytopenia (principal); D64.81 Anemia due to antineoplastic chemotherapy
CPT/HCPCS: 36430; 86900; 86901; 86965; P9035; A4216

== ENCOUNTER → 2020-04-20 08:55 | Outpatient (CLI) | payer MEDICARE, SELFPAY ==
[2020-04-13 08:07] VITALS: BMI 30.2
[2020-04-20] MEDS: 0.9% NaCl VAD Flush IV ×2 (09:01→14:35)
[2020-04-20 09:03] VITALS: BP 122/64; PULSE 88; RESP 16; TEMP 36.6
[2020-04-20 09:30] VITALS: BP 128/49; PULSE 87; RESP 16; TEMP 36.6; O2SAT 99
[2020-04-20 10:40] VITALS: BP 132/49; PULSE 88; RESP 16; TEMP 36.6; O2SAT 99
[2020-04-20] MEDS: Furosemide 20 MG/2 ML VIAL IV (12:00)
[2020-04-20 12:41] VITALS: BP 122/58; PULSE 80; RESP 16; TEMP 36.6; O2SAT 94
[2020-04-20 13:49] VITALS: BP 123/72; PULSE 77; RESP 16; TEMP 36.8; O2SAT 96
[2020-04-20 14:34] VITALS: BP 132/55; PULSE 79; RESP 16; TEMP 36.7; O2SAT 96
== END ==
PROVIDERS: PCP Internal Medicine; Referring Provider Internal Medicine Hematology & Oncology; Visit Provider Internal Medicine Hematology & Oncology
DX: D64.81 Anemia due to antineoplastic chemotherapy (principal)
CPT/HCPCS: 36430; 86850; 86900; 86901; 86920; 86922; J7040; P9016; P9040; A4216; J1940

== ENCOUNTER → 2020-05-14 13:00 | Outpatient (CLI) | payer MEDICARE, SELFPAY ==
[2020-05-14 13:14] VITALS: BP 119/53; PULSE 86; RESP 16; TEMP 36.8; BMI 30.2
[2020-05-14 13:42] VITALS: BP 118/45; PULSE 78; RESP 16; TEMP 36.2
[2020-05-14 14:50] VITALS: BP 129/48; PULSE 77; RESP 16; TEMP 36.6; O2SAT 100
[2020-05-14 15:42] VITALS: BP 122/54; PULSE 76; RESP 16; TEMP 36.5; O2SAT 99
== END ==
PROVIDERS: PCP Internal Medicine; Referring Provider Internal Medicine Hematology & Oncology; Visit Provider Internal Medicine Hematology & Oncology
DX: Z51.89 Encounter for other specified aftercare (principal); C50.919 Malignant neoplasm of unspecified site of unspecified female breast; D64.81 Anemia due to antineoplastic chemotherapy
CPT/HCPCS: 36430; 86850; 86900; 86901; 86920; 86922; J7040; J7050; P9016; A4216

== ENCOUNTER → 2020-06-04 08:28 | Outpatient (CLI) | payer MEDICARE, SELFPAY ==
[2020-05-14 13:14] VITALS: BMI 30.2
[2020-06-04] VITALS (7 sets, daily range): BP systolic 105–126; BP diastolic 36–81; PULSE 66–86; RESP 16; TEMP 36–36.4; O2SAT 97–100; BMI 30.2
[2020-06-04] MEDS: 0.9% NaCl Peripheral Flush Adult/Peds IV ×2 (08:36→13:21)
[2020-06-04] MEDS: Furosemide 20 MG/2 ML VIAL IV (10:57)
== END ==
PROVIDERS: PCP Internal Medicine; Referring Provider Internal Medicine Hematology & Oncology; Visit Provider Internal Medicine Hematology & Oncology
DX: Z51.89 Encounter for other specified aftercare (principal); D64.81 Anemia due to antineoplastic chemotherapy
CPT/HCPCS: 36430; 86850; 86900; 86901; 86920; 86922; J7040; P9016; A4216; J1940

== ENCOUNTER 2020-06-19 19:47 | Emergency (ER) | payer MEDICARE, SELFPAY ==
[2020-06-04 08:37] VITALS: BMI 30.2
[2020-06-19 19:48] VITALS: BP 138/81; PULSE 89; RESP 16; TEMP 37.9; BMI 29.5
--- NOTE | 2020-06-19 19:53 | EKG12_ITS ---
Test Reason : DYSRYTHMIA Blood Pressure : / mmHG Vent. Rate : 086 BPM Atrial Rate : 086 BPM P-R Int : 150 ms QRS Dur : 068 ms QT Int : 400 ms P-R-T Axes : 053 066 042 degrees QTc Int : 478 ms Normal sinus rhythm Normal ECG Confirmed by LOW MCMILLAN, RILEY ([id number]), purchasing expeditor DONNIE TOSCANO ([id number]) on 06/21/2020 1:17:32 PM Referred By: SHERINE Confirmed By:RILEY KELSEY MD
--- NOTE | 2020-06-19 20:03 | EX.ED.DYSGE1 ---
HPI History of Present Illness Chief Complaint: Fever Narrative Narrative: 65-year-old female presenting with fever. Patient states that she had a fever this morning it was initially 100.5 and then she took Tylenol which relieved her fever. Her fever came back and was 100.7. 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 Last chemotherapy was . Patient states she was told to come into the ED to rule out neutropenic fever. Patient states that other than some mild aching and mild nausea she feels okay. Patient states that she recently was treated for UTI with Cipro. She denies any urinary symptoms today. She denies cough, cold symptoms. She has no new change in taste or smell but states that her taste is somewhat decreased due to chemotherapy. Patient does not have any chest pain or shortness of breath. She denies any rashes. [facility] Medical History Cancer Depression Diabetes Kidney stones Home Medications [id number] [Fiorinal] 1 tab PO DAILY PRN PRN 03/21/13 [History Last Taken Unknown] fluoxetine 20 mg PO DAILY 03/21/13 [History Last Taken 01/18/18] multivitamin with folic acid [Thera] 1 tab PO QHS 03/21/13 [History Last Taken 03/20/13] omeprazole 40 mg PO DAILY 03/21/13 [History Last Taken 01/18/18] Excedrin Migraine 1 ea PO DAILY PRN PRN 04/18/17 [History Last Taken Unknown] acetaminophen 500 - 1,000 mg PO Q6H PRN PRN 04/18/17 [History Last Taken 01/18/18 19:30] Calcium 600-Vit D3 400 Tablet 1 capsule PO DAILY 01/19/18 [History Last Taken 01/18/18] lorazepam 0.5 mg PO Q8H PRN PRN 01/19/18 [History Last Taken 01/18/18 22:00] ondansetron HCl 8 mg PO Q8H PRN PRN 01/19/18 [History Last Taken Unknown] tramadol 50 mg PO TID PRN 03/01/18 [History Last Taken Unknown] Cholecalciferol (Vitamin D3) [Vitamin D3] 5,000 unit PO DAILY 03/05/20 [History Last Taken Unknown] amlodipine 5 mg PO QHS 03/05/20 [History Last Taken Unknown] diphenhydramine HCl 25 mg PO PRN PRN 03/05/20 [History Last Taken Unknown] ferrous sulfate 325 mg PO QODAY 03/05/20 [History Last Taken Unknown] oxycodone-acetaminophen 1 ea PO Q6H PRN 03/05/20 [History Last Taken Unknown] rosuvastatin 10 mg PO QHS 03/05/20 [History Last Taken Unknown] ibuprofen 200 mg PO PRN PRN 04/09/20 [History Last Taken Unknown] metformin 500 mg PO BIDCM 04/09/20 [History Last Taken Unknown] calcium carbonate [Tums] 600 mg PO TID 06/19/20 [History Last Taken Unknown] Allergy/AdvReac Type Severity Reaction Status Date / Time shellfish derived Allergy Mild Hives Verified 06/19/20 19:48 abemaciclib [From Verzenio] Allergy Other Verified 06/19/20 19:48 iodine Allergy Hives Verified 06/19/20 19:48 lisinopril Allergy Shortness Verified 06/19/20 19:48 of breath liraglutide [From Victoza] AdvReac Nausea, Verified 06/19/20 19:48 VOMITING IV DYE Allergy Mild Hives Uncoded 06/19/20 19:48 Surgical History History of cholecystectomy Social History Smoking Status: Former smoker ROS ROS ED Constitutional Constitutional ED: Reports fever(s) and other; Denies chills or sweats Eyes Eyes: Denies blurry vision or change in vision ENT ENT ED: Denies ear pain, rhinorrhea or sore throat Cardiovascular Cardiovascular: Denies chest pain, palpitations or racing heartbeat Respiratory/Chest Respiratory/Chest: Denies cough, dyspnea or sputum Gastrointestinal Gastrointestinal: Reports nausea; Denies abdominal pain, constipation, diarrhea or vomiting Genitourinary Genitourinary ED: Denies dysuria, hematuria or urinary frequency Musculoskeletal Musculoskeletal: Reports myalgias; Denies arthralgias or neck pain Integumentary Denies abscess, Abrasions or rash Neurologic Neurologic: Denies headache(s), paresthesias or weakness Psychiatric Psychiatric: Denies anxiety, depression, suicidal ideation or suicidal thoughts Endocrine Endocrinology: Denies polydipsia or polyuria EXAM Physical Exam Const Vital Signs: 06/19/20 19:48 06/19/20 20:02 06/19/20 20:47 Temperature 100.3 F H 99.7 F H Temperature Source Oral Oral Pulse Rate 89 78 Respiratory Rate 16 15 Respiratory Effort Normal Non-Labored Respiratory Pattern Normal Blood Pressure 138/81 H 115/59 L Blood Pressure Mean 100 77 Pulse Ox 98 Oxygen Delivery Method Room Air Room Air 06/19/20 21:06 06/19/20 22:00 06/19/20 22:56 Temperature 99.7 F H 98.8 F Temperature Source Oral Oral Pulse Rate 78 74 Respiratory Rate 12 12 Respiratory Effort Respiratory Pattern Blood Pressure 118/47 L 123/49 H 120/57 L Blood Pressure Mean 70 73 Pulse Ox 100 99 Oxygen Delivery Method Room Air Room Air General Appearance ED: Negative for pallor HEENT Reports normocephalic, head/scalp atraumatic and moist mucous membranes; Denies rhinorrhea normocephalic and atraumatic Eyes PERRL and EOMs intact bilaterally Neck no lymphadenopathy and supple Chest Wall inspection of chest normal and palpation of chest normal Resp normal respiratory effort and clear to auscultation bilaterally Auscultation: Negative for rales, rhonchi or wheezes Cardio regular rate and regular rhythm GI normal to inspection, nondistended, normoactive bowel sounds and non-distended Auscultation: normoactive bowel sounds Palpation: soft Narrative: Deferred Back/Spine no CVA tenderness General Back: Negative for CVA tenderness Cervical Spine: Negative for cervical spine tenderness Extremity normal to inspection Extremity Narrative: PICC line in place in right upper extremity. No surrounding induration or erythema. General Extremety ED: Yes edema and tenderness General Extremity: edema Neuro oriented x3 and CN's II-XII intact bilaterally Sensorium / Orientation: alert Motor Exam: strength 5/5 throughout Psych mental status grossly normal Attitude: No agitated Skin no rashes or lesions noted and no wounds General Skin Exam: Negative for jaundice or pallor MDM MDM MDM Narrative Medical decision making narrative: 65-year-old female presenting with concern for neutropenic fever given that she is on chemotherapy for breast cancer. Patient states that she has had a fever as high as 100.7 today. She took Tylenol earlier in the day but has not repeated the dose as she was told not to take any Tylenol before coming to the ER. Patient appears well-appearing and hydrated. She complains of mild nausea and body aches. Vital signs are stable and she does have a temperature of 100.3. Patient is given Tylenol, IV fluids and blood work is obtained. EKG performed on arrival is sinus rhythm at 86 bpm without signs of ischemic change as interpreted by myself. Chest x-ray shows no acute cardiopulmonary process as interpreted by myself and radiology does agree. Patient's lab work is reviewed and she has a white blood cell count of 2.6, hemoglobin 8.9, hematocrit 29.0, platelets 98. Renal function is normal. Patient found to have calcium of 6.1. She states that it has been low and she is currently started taking Tums 3 times a day. Rapid Covid is negative. Patient does have cultures pending. Lactic acid is 1.2. Patient discussed with oncology and it is felt that she is safe to be discharged home as she is not neutropenic. they recommended that she increase her Tums to 4 times a day. Patient is given strict return precautions. Impression: 1. Fever with concern for neutropenia 2. Hypocalcemia Lab Data Labs: Laboratory Results - last 24 hr 06/19/20 06/19/20 06/19/20 20:10 20:10 20:10 WBC 2.6 L RBC 3.27 L Hgb 8.9 L Hct 29.0 L MCV 88.7 MCH 27.2 MCHC 30.7 L RDW Std Deviation 62.5 H RDW Coeff of Marisa 19.7 H Plt Count 98 L MPV 9.4 Immature Gran % (Auto) 1.600 H Neut % (Auto) 70.4 H Lymph % (Auto) 14.4 L [place] % (Auto) 9.7 Eos % (Auto) 2.3 Baso % (Auto) 1.6 H Absolute Neuts (auto) 1.8 L Absolute Lymphs (auto) 0.37 L Nucleated RBC % 0 Differential Comment SCANNED Diff Path Review May foll Platelet Estimate MOD DEC PT 13.6 INR 1.1 APTT 31.4 Sodium Potassium Chloride Carbon Dioxide Anion Gap BUN Creatinine Estim Creat Clear Calc Est GFR (MDRD) Af Amer Est GFR (MDRD) Non-Af BUN/Creatinine Ratio Glucose Lactic Acid Calcium Total Bilirubin AST ALT Alkaline Phosphatase Total Protein Albumin Globulin Albumin/Globulin Ratio Urine Color Yellow Urine Clarity Clear Urine pH 7.0 Ur Specific [place] 1.005 Urine Protein Negative Urine Glucose (UA) Normal Urine Ketones Negative Urine Occult Blood Negative Urine Nitrite Negative Urine Bilirubin Negative Urine Urobilinogen Normal Ur Leukocyte Esterase Negative Urine RBC 0 SEEN Urine WBC 0 SEEN Ur Squamous Epith Cells 0-5 SEEN Urine Bacteria 0 SEEN Urine Mucus 0 SEEN 06/19/20 06/19/20 20:10 20:10 WBC RBC Hgb Hct MCV MCH MCHC RDW Std Deviation RDW Coeff of Marisa Plt Count MPV Immature Gran % (Auto) Neut % (Auto) Lymph % (Auto) [place] % (Auto) Eos % (Auto) Baso % (Auto) Absolute Neuts (auto) Absolute Lymphs (auto) Nucleated RBC % Differential Comment Diff Path Review Platelet Estimate PT INR APTT Sodium 137 Potassium 3.9 Chloride 107 Carbon Dioxide 24.0 Anion Gap 6 BUN 4 L Creatinine 0.50 L Estim Creat Clear Calc 84.65 Est GFR (MDRD) Af Amer 158 Est GFR (MDRD) Non-Af 130 BUN/Creatinine Ratio 7.9 L Glucose 171 H Lactic Acid 1.2 Calcium 6.1 L* Total Bilirubin 1.00 AST 42 H ALT 40 Alkaline Phosphatase 355 H Total Protein 6.0 L Albumin 2.9 L Globulin 3.1 Albumin/Globulin Ratio 0.9 Urine Color Urine Clarity Urine pH Ur Specific [place] Urine Protein Urine Glucose (UA) Urine Ketones Urine Occult Blood Urine Nitrite Urine Bilirubin Urine Urobilinogen Ur Leukocyte Esterase Urine RBC Urine WBC Ur Squamous Epith Cells Urine Bacteria Urine Mucus Radiography Diagnostic Testing: Radiology Impression Chest X-Ray 06/19/20 20:30 IMPRESSION: No acute cardiopulmonary process identified. Electronically Signed: Maynor Elias MD at 21:08 EDT Tel , Service support , Discharge Plan Triage Chief Complaint: Fever ED Provider: Salazar Dodson Dx/Rx/DC Orders Instructions: ED Fever Control (Adult) Prescriptions: No Action omeprazole 20 MG capsule 40 mg PO DAILY RF: 0 fluoxetine 20 MG capsule 20 mg PO DAILY RF: 0 multivitamin with folic acid [Thera] 1 TABLET tablet 1 tab PO QHS RF: 0 [id number] [Fiorinal] 1 EACH capsule 1 tab PO DAILY PRN PRN (Reason: Pain) RF: 0 acetaminophen 500 MG tablet 500 - 1,000 mg PO Q6H PRN PRN (Reason: Pain) RF: 0 Excedrin Migraine 1 EACH tablet 1 ea PO DAILY PRN PRN (Reason: Pain) RF: 0 ondansetron HCl 8 MG tablet 8 mg PO Q8H PRN PRN (Reason: Nausea) RF: 0 lorazepam 0.5 MG tablet 0.5 mg PO Q8H PRN PRN (Reason: Anxiety) RF: 0 Calcium 600-Vit D3 400 Tablet 1 capsule PO DAILY RF: 0 tramadol 50 MG tablet 50 mg PO TID PRN (Reason: Pain) RF: 0 oxycodone-acetaminophen 1 EACH tablet 1 ea PO Q6H PRN (Reason: Pain 1-10 Or Fever) RF: 0 diphenhydramine HCl 25 MG capsule 25 mg PO PRN PRN (Reason: Sleep) RF: 0 ferrous sulfate 325 MG tablet 325 mg PO QODAY RF: 0 rosuvastatin 10 MG tablet 10 mg PO QHS RF: 0 Cholecalciferol (Vitamin D3) [Vitamin D3] 5,000 UNIT capsule 5,000 unit PO DAILY RF: 0 amlodipine 5 MG tablet 5 mg PO QHS RF: 0 metformin 500 MG tablet 500 mg PO BIDCM RF: 0 ibuprofen 200 MG capsule 200 mg PO PRN PRN (Reason: Pain 1-10 Or Fever) RF: 0 calcium carbonate [Tums] 200 mg calcium (500 mg) Tablet,Chewable 600 mg PO TID RF: 0 Primary Care Provider: Ruth Jones Referrals: Ruth Jones DO [Primary Care Provider] - Disposition Disposition: Home, self care Discharge Date/Time: 06/19/20 22:59
[2020-06-19] MEDS: Acetaminophen 500 MG Tablet 1000 MG PO (20:17)
[2020-06-19] MEDS: 0.9% Normal Saline 1,000 ML 999 ML IV ×2 (20:18→21:32)
[2020-06-19 20:24] LABS: Bacteria 0 SEEN /hpf (None Seen); Mucous, Urine 0 SEEN /hpf (<or=2+); Red Blood Cells-Urine 0 SEEN /hpf (0-5); White Blood Cells 0 SEEN /hpf (0-5)
[2020-06-19 20:29] LABS: Absolute Lymphocyte Count 0.37 X10^3/uL (0.83-4.51); Absolute Neutrophil Count 1.8 X10^3/uL (2.0-7.7); Basophil# 0.04 X10^3/uL; Basophil% 1.6 % (0-1); Eosinophil# 0.06 X10^3/uL; Eosinophils% 2.3 % (0-5); Hemoglobin 8.9 g/dL (12.0-15.0); Lymphocyte # 0.37 X10^3/ul (0.83-4.51); Lymphocyte % 14.4 % (19-41); Mean Corp Hgb Conc 30.7 g/dL (32-36); Mean Corpuscular Hgb 27.2 pg (27.0-32.0); Mean Corpuscular Volume 88.7 fL (81-99); Mean Platelet Vol. 9.4 fl (6.2-12.0); Monocyte# 0.25 X10^3/uL; Monocyte% 9.7 % (0-10); NRBC Flagged by Analyzer 0 % (0-5); Neutrophil # 1.81 X10^3/uL (2.7-7.7); Neutrophil % 70.4 % (47-70); POSITIVE COUNT YES; POSITIVE DIFFERENTIAL YES; Platelet Count 98 K/mm3 (150-450); RBC Distribution Width CV 19.7 % (11.6-14.6); RBC Distribution Width SD 62.5 fl (35.1-43.9); Red Blood Count 3.27 M/mm3 (4.2-5.4); White Blood Count 2.6 K/mm3 (4.4-11.0)
--- NOTE | 2020-06-19 20:30 | RAD_ITS ---
STUDY: X-RAY CHEST REASON FOR EXAM: Female, 65 years old. Fever TECHNIQUE: PA and lateral views of the chest. COMPARISON: 08/20/13. FINDINGS: Cardiac silhouette unremarkable. Pulmonary vascularity unremarkable. Aorta unremarkable. No focal airspace opacities. No pleural effusions. Upper abdomen unremarkable. Osseous structures intact. No pneumothorax. RAD/Chest PA and Lateral IMPRESSION: No acute cardiopulmonary process identified. Electronically Signed: Maynor Elias MD at 21:08 EDT Tel , Service support ,
[2020-06-19 20:34] LABS: Color, Urine Yellow (Yellow); Glucose, Dipstick Normal (Normal); Ketone-Dipstick Negative (Negative); Leukocyte Esterase-Dipstick Negative /ul (Negative); Nitrite-Dipstick Negative (Negative); Occult Blood-Urine Negative /ul (Negative); Protein-Dipstick Negative (Negative); Specific Gravity, Urine 1.005 (1.002-1.030); Urine Bilirubin Dipstick Negative (Negative); Urine Clarity Clear (Clear); Urine Urobilinogen Normal (Normal)
[2020-06-19 20:36] LABS: International Normalized Ratio 1.1; Prothrombin Time (Protime)PT. 13.6 SECONDS (11.7-14.9)
[2020-06-19 20:37] LABS: Partial Thromboplast Time 31.4 Seconds (24.1-36.2)
[2020-06-19 20:43] LABS: Squamous Epithelial Cells - UA 0-5 SEEN /hpf (5-10)
[2020-06-19 20:47] VITALS: BP 115/59; PULSE 78; RESP 15; TEMP 37.6; O2SAT 98
[2020-06-19 20:49] LABS: Lactic Acid 1.2 mmol/L (0.4-1.9)
[2020-06-19 21:06] VITALS: BP 118/47; PULSE 78; RESP 12; TEMP 37.6; O2SAT 100
[2020-06-19 21:26] LABS: Differential Comment SCANNED; Differential Indicated SCAN CRITERIA MET
[2020-06-19 21:28] LABS: ALB/GLOB Ratio 0.9 RATIO (0.9-2.4); AST(SGOT) 42 U/L (15-37); Alanine Aminotransfer ALT/SGPT 40 U/L (13-56); Albumin, Serum 2.9 g/dL (3.2-5.0); Alkaline Phosphatase 355 U/L (45-117); Anion Gap 6 (5-15); BUN 4 mg/dL (7-18); BUN/Creat Ratio 7.9 RATIO (10-20); Calcium,Total 6.1 mg/dL (8.5-10.1); Chloride 107 mmol/L (98-107); EST Glomerular Filtration Rate 130 mL/min (>60); Est Glom Filt Rate - Afr Amer 158 mL/min (>60); Estimated Creatinine Clearance 84.65 ml/min; Globulin 3.1 g/dL (2.2-4.2); Glucose 171 mg/dL (74-106); Potassium 3.9 mmol/L (3.5-5.1); Sodium Level 137 mmol/L (136-145)
[2020-06-19 21:31] LABS: Platelet Estimate MOD DEC (ADEQ)
[2020-06-19 22:00] VITALS: BP 123/49; PULSE 74; RESP 12; TEMP 37.1; O2SAT 99
[2020-06-19 22:56] VITALS: BP 120/57
[2020-06-21 13:29] LABS: Pathologist Review Reviewed
== END 2020-06-19 22:59 | disposition home or self-care (01) ==
PROVIDERS: Emergency Provider Student in an Organized Health Care Education/Training Program; PCP Internal Medicine
DX: R50.9 Fever, unspecified (principal); E83.51 Hypocalcemia; E11.9 Type 2 diabetes mellitus without complications; R11.0 Nausea; Z87.891 Personal history of nicotine dependence; Z79.84 Long term (current) use of oral hypoglycemic drugs; Z79.82 Long term (current) use of aspirin; Z79.899 Other long term (current) drug therapy
CPT/HCPCS: 36592; 71046; 80053; 81001; 83605; 85025; 85610; 85730; 87040; 87086; 87088; 87426; 93005; 96360; 96361; 99283; J7030; A4216

== ENCOUNTER → 2020-06-25 08:21 | Outpatient (CLI) | payer MEDICARE, SELFPAY ==
[2020-06-19 19:48] VITALS: BMI 29.5
[2020-06-25] VITALS (7 sets, daily range): BP systolic 96–134; BP diastolic 42–64; PULSE 66–78; RESP 16; TEMP 35.8–37.2; O2SAT 96–100; BMI 30.6
[2020-06-25] MEDS: 0.9% NaCl VAD Flush IV ×2 (08:32→13:37)
== END ==
PROVIDERS: PCP Internal Medicine; Referring Provider Internal Medicine Hematology & Oncology; Visit Provider Internal Medicine Hematology & Oncology
DX: D64.81 Anemia due to antineoplastic chemotherapy (principal)
CPT/HCPCS: 36430; 86850; 86900; 86901; 86920; 86922; J7040; P9016; A4216

== ENCOUNTER 2020-07-15 11:56 | Day surgery (SDC) | payer MEDICARE, SELFPAY ==
[2020-06-25 08:36] VITALS: BMI 30.6
--- NOTE | 2020-07-14 16:50 | HP.PCM_ITS ---
History and Physical Date of Admission: 07/15/20 HISTORY AND PHYSICAL ? Jessica Rojas 1955 ? ? REFERRING PHYSICIAN: MD Julio ? CHIEF COMPLAINT: Consult (Port placement) ? HPI: The patient is a 65 year old female presents with exhausted vascular access. She is requiring IV chemotherapy for metastatic breast cancer. She had a right upper extremity PICC line that is no longer functioning and required removal. She had previous right sided portacath placed, which was removed October 2017. ? ? PAST MEDICAL HISTORY Diagnosis Date ? Breast cancer metastasized to axillary lymph node, left (HCC) 03/22/2017 ? Cholelithiasis with chronic cholecystitis 02/2020 ? Diverticulosis of colon with hemorrhage ? ? Personal history of colonic polyps ? ? PMH - PAST MEDICAL HISTORY OF ? ? SPASTIC COLON ? Psoriatic arthritis (HCC) ? ? Tension headache ? ? Type II or unspecified type diabetes mellitus without mention of complication, not stated as uncontrolled ? ? PAST SURGICAL HISTORY Procedure Laterality Date ? COLONOSCOP W/ OR W/O BRSH SPEC ? 2000 ? Colonoscopy ? COLONOSCOP W/ OR W/O BRSH SPEC ? 12/09/2012 ? Colonoscopy ? EGD W/O OR W/BRUSH/WASH ? 12/09/2012 ? EGD ? EXCIS BREAST LESION ? ? ? Left breast ? HYSTEROSCOPY WBX WWO D AND C ANDOR POLYPECTOMY ? 2011 ? PMB- polyps ? LAP CHOLECYSTECT/CHOLANGIOGRAPHY ? 03/09/2020 ? LIGATE FALLOPIAN TUBE ? ? ? MASTECTOMY, RADICAL Bilateral 2017 ? PAST SURGICAL HISTORY OF ? ? ? cyst removed from back ? S PORTACATH [id number] ? 05/08/2017 ? right sided portacath [place] ? ? Current Outpatient Medications Medication Sig ? oxyCODONE-acetaminophen (PERCOCET) 5-325 mg tablet Take 1-2 tablets by mouth every 8 hours as needed. ? LORazepam (ATIVAN) 1 mg tablet Take 1 mg by mouth every 8 hours as needed. ? melatonin 5 mg tablet Take 5 mg by mouth at bedtime as needed. ? iv contrast (will be provided with radiology test) CT Chest ABD/PEL- Inject, intravenously, once for 1 dose.No IV access, insert saline lock prior to the beginning of sedation, infusion, injection of imaging exam. Discontinue saline lock post exam. If Pt. has a central line or IVAD, may access for administration according to line specific nursing protocol. Once exam is complete flush line and de-access according to line specific nursing protocol in the CT contrast administration guidelines link. ? enteric contrast (will be provided with radiology test) For CT CHESTABD/PEL W IVCON Routine order Administer, As Directed One Time Only, via Oral, Rectal, both Oral and Rectal, Enteric Tube, Stoma or Indwelling Catheter, Enteric Contrast as designated per enteric contrast guidelines ? predniSONE (DELTASONE) 50 mg Take 1 tablet 13, 7 and [address] scan. ? gabapentin (NEURONTIN) 100 mg capsule Take 1 capsule by mouth once daily for 30 days. ? ibuprofen (MOTRIN) 200 mg tablet Take 400 mg by mouth twice daily as needed. ? polyethylene glycol 3350 (MIRALAX) 17 gram/dose powder Take 17 g by mouth once daily. ? calcium carbonate (TUMS ORAL) Take 3 tablets by mouth three times daily as needed. ? ? bisacodyl (DULCOLAX, BISACODYL,) 10 mg supp 10 mg by RECTAL route as needed. ? amLODIPine (NORVASC) 5 mg tablet 1 tablet once daily. ? ondansetron (ZOFRAN) 8 mg tablet Take 1 tablet by mouth every 8 hours as needed for Nausea/Vomiting. ? acetaminophen 300 mg-caffeine 40 mg-butalbital 50 mg (FIORICET) per capsule as needed. ? clobetasol (TEMOVATE) 0.05 % cream as directed. ? CALCIUM ORAL Take 1,000 mg by mouth once daily. ? rosuvastatin (CRESTOR) 10 mg tablet Take 10 mg by mouth once daily. ? cholecalciferol (VITAMIN D-3) 5,000 unit tab Take 5,000 Units by mouth once daily. ? ferrous sulfate 325 mg (65 mg iron) tablet Take 325 mg by mouth every other day. ? diphenhydrAMINE (BENADRYL) 25 mg capsule Take 25 mg by mouth at bedtime as needed. ? metFORMIN ER (GLUCOPHAGE XR) 500 mg 24 hr tablet Take 500 mg by mouth twice daily. ? ? Omeprazole (PRILOSEC) 40 mg capsule Take 40 mg by mouth once daily. ? ? fluoxetine 20 mg ORAL capsule Take 20 mg by mouth once daily. ? MULTIVITAMIN TAB Take one(1) tablet daily. ? TYLENOL EXTRA STRENGTH 500 MG TAB Take two(2) tablets every six(6) hours as needed for pain. ? ? ALLERGIES: Iv Dye [Iodinated Contrast Media], Lisinopril, Shellfish, Verzenio [Abemaciclib], and Victoza [Liraglutide] ? PERSONAL HISTORY: Social History ? Tobacco Use ? Smoking status: Former Smoker ? ? Packs/day: 1.00 ? ? Years: 20.00 ? ? Pack years: 20.00 ? ? Types: Cigarettes ? ? Quit date: 02/25/2000 ? ? Years since quittin.3 ? Smokeless tobacco: Never Used Vaping Use ? Vaping Use: Never used Substance Use Topics ? Alcohol use: No ? Drug use: No ? FAMILY HISTORY Problem Relation Age of Onset ? Osteoporosis Mother ? ? Arthritis Mother ? ? GI Mother ? ? IBS ? Diabetes Father ? ? Heart Father ? ? Lipids Father ? ? Breast Cancer Maternal Grandmother ? ? Prostate Cancer Maternal Grandfather ? ? Osteoporosis Sister ? ? Hypertension Sister ? ? The review of systems data was entered by the nurse and reviewed by me ? Nursing Notes: Cat Romero RN 07/14/2020 2:49 PM Signed REVIEW OF SYSTEMS: General: The patient notes fatigue, notes weight loss, denies weight gain, denies feeling hot, and denies feelings of cold. Eyes: The patient denies glaucoma, denies eye injury/surgery, wears glasses or contacts. Ear/Nose/Throat: The patient notes allergies, denies hayfever, denies ear infections, and denies bloody noses. Cardiovascular: The patient denies chest pain, denies heart disease, notes high blood pressure,denies cardiac stent, denies prior heart attack, denies irregular heart beat, notes high cholesterol, denies poor circulation, denies heart failure, other cardiac issues, denies claudication, denies cold feet, denies peripheral arterial stent. Respiratory: The patient denies tuberculosis, denies pneumonia, denies frequent cough, denies pulmonary embolism, denies shortness of breath, and denies coughing up blood. Gastrointestinal: The patient denies difficulty swallowing, notes acid reflux, denies ulcers, denies vomiting, denies jaundice/hepatitis, denies gallbladder problems, denies black or tarry stools, denies hemorrhoids, denies bleeding from rectum, denies diverticulitis, notes constipation, notes diarrhea, denies loss of stool control, and denies hernias. Kidney/Bladder: The patient notes kidney stones, denies urine infections, and denies bloody urine. Skin: The patient denies a history of skin cancer, denies bleeding/changing moles, and denies a history of skin rash. Neurologic: The patient denies a history of epilepsy/convulsions, denies headaches, denies head/spinal injuries, and denies stroke/TIA. Psychiatric: The patient denies psychiatric medications, notes depression, and denies voices, denies substance abuse. Endocrine: The patient denies thyroid disorders, notes diabetes, and notes hormonal problems. Hematologic: The patient denies a history of bruising, denies bleeding, and notes anemia, denies blood clots. Infections: The patient notes a history of measles and mumps, denies rheumatic fever, and denies sexually transmitted diseases. Musculoskeletal: The patient denies back pain/injury, denies back problems, denies sciatica, denies knee/foot trouble, notes arthritis, or denies gout. When was patient's last Mammogram screening? 03/28/2017 Last Colonoscopy: 2018 per patient Cat Romero RN ? PHYSICAL EXAMINATION: General: The patient is 65 year old female, well nourished, well hydrated in no acute distress. The patient is oriented to time, place, and person. VITALS: Blood pressure 118/58, pulse 84, temperature 37.3 ?C (99.2 ?F), height 154.9 cm (5' 1), weight 72.4 kg (159 lb 9.6 oz), last menstrual period 02/04/2010, SpO2 99 %. Body mass index is 30.16 kg/m?. Head ? Normocephalic. EOM intact with sclera clear and no icterus noted. Neck - supple with no jugular venous distention noted. Trachea is midline. Chest - healed incision site for previous portacath - upper right chest, bilateral absence of breasts Lungs ? normal respiratory excursion, no adventitial sounds noted. No labored breathing noted, such as retractions. No cough heard. Heart ? regular Abdomen ? soft and benign. Extremities ? no pitting edema noted. Skin ? normal skin integrity. Neurological ? gait normal, no focal deficits noted. Psych ? calm and appropriate ? IMPRESSION: exhausted vascular access, need for portacath for chemotherapy ? PLAN: I have discussed the above with the patient and her who is present with her. I have offered placement of portacath I have explained the procedure to the patient. I have counseled the patient as to the risks of the procedure, including but not limited to: infection, bleeding, injury to any blood vessels/nerves, scar tissue, injury the lungs such as hemothorax and/or pneumothorax, thromboses of blood vessels, migration of the catheter, non functioning of the port, wound infection, catheter infection/sepsis, complications of anesthesia, etc. ? the patient understands. The patient wishes to proceed. I have answered all questions to the patient?s satisfaction and the patient has no further questions. ? ? Diagnoses: (C79.51) Metastatic cancer to bone (HCC) (primary encounter diagnosis) (Z85.3) History of breast cancer (Z45.2) Exhausted vascular access Return to Clinic: The patient is instructed to follow-up with me after the procedure as per needed. ? Hodan Chong MD v
[2020-07-15] VITALS (10 sets, daily range): BP systolic 113–128; BP diastolic 52–63; PULSE 81–93; RESP 14–18; TEMP 36.3–37.4; O2SAT 93–99; BMI 29.2
[2020-07-15] MEDS: Lactated Ringers 1,000 ML 125 ML IV (12:56)
[2020-07-15 13:50] LABS: Bedside Glucose 148 mg/dL (70-110)
[2020-07-15] MEDS: Cefazolin 2 GM in 0.9% Normal Saline 100 ML IV (14:42)
[2020-07-15] MEDS: Lidocaine 1% /Epi 1:100 (20ml) 20 ML Vial (15:40)
--- NOTE | 2020-07-15 15:47 | PCM.OPRPT ---
Report of Operation Date of Procedure: 07/15/20 Pre-Operative Diagnosis: metastatic breast cancer, need for IV access for chemotherapy Post-Operative Diagnosis: same Surgery/Procedure Performed:: placement of permanent indwelling catheter in right internal jugular vein with subcutaneous port Description of Surgical Findings:: could not access right subclavian vein due to scar tissue from previous port site Surgeon: Hodan Chong Type of Anesthesia: MAC/Supplemental/Local Anesthesiologist: Trung Blackwood Specimen's removed: none Drains: none Estimated Blood Loss (mL): < 10 ml Fluids Replaced: 1000 ml RL Description of Procedure: After informed consent was given, the patient was brought to the Operating Room. Appropriate time out protocol was followed. The patient was then placed in the supine position. The patient was then given IV conscious sedation for anesthesia. The patient?s upper chest and neck were then prepped with a surgical skin preparation and sterile surgical drapes were placed. After proper landmarks were ascertained, the skin at the upper right chest area was then infiltrated with 1% xylocaine with epinephrine. A needle trocar was then inserted into the direction of the right subclavian vein however, it could not be accessed, despite multiple attempted. Therefore the Ultrasound machine was brought in for localization of the internal jugular vein. The internal jugular vein was identified by ultrasound probe. The needle trocar was then inserted into the patient's right internal jugular vein and via ultrasound transducer this was visualized from the needle piercing through the skin and then entering into the right internal jugular vein and there was good aspiration of venous blood. A wire was then threaded into the needle trocar and this was visualized under fluoroscopy to ensure that the wire was in the right internal jugular vein and entering into the SVC. Once this was done, then the needle trocar was removed. A small skin michael was made with an 11 blade knife at the wire entrance site. The dilator with the introducer sheath attached was then placed over the wire into the right internal jugular vein via the Seldinger technique and this was visualized under fluoroscopy. The dilator and sheath were in proper position as visualized by fluoroscopy in real time. The wire and dilator were then removed. The catheter was then threaded into the introducer sheath and was positioned with its tip at the junction of the superior vena cava and the right atrium as visualized under fluoroscopy in real time. I personally reviewed all of the above fluoroscopic images and noted that the positions of the wire and catheter were correct so that the next step could be conducted. The catheter was flushed with a heparin saline mixture prior to placement. A subcutaneous pocket was then created caudad to the catheter insertion site. A transverse skin incision was made after the skin and subcutaneous tissues were infiltrated with local anesthetic. Blunt dissection was then used to create a space large enough for placement of the subcutaneous port. Hemostasis was carefully controlled with electrocautery. The port was sutured to the subcutaneous fascia using vicryl suture at three sites. The catheter was then tunneled into the subcutaneous pocket. The excess catheter was transected. The catheter was then attached to the subcutaneous port using wall worker?s guidelines. The port was then placed in the subcutaneous pocket and the sutures were ligated. The subdermal incisional sites were reapproximated with interrupted vicryl suture. The skin was reapproximated with monocryl suture in a subcuticular fashion. Cavilon and steristrips were used for reinforcement of the skin closure and a sterile opsite dressing was applied. Sponge, needle, and instrument count were verified and correct at the time of skin closure. The patient was brought to the Recovery Room in stable condition Grafts/Implants Used: PowerPort Lot [id number]; exp 2021-08-11 Complications none noted Admit VTE Documentation VTE Present on Admission: Yes VTE Mechan Device Prophylaxis: SCD's
--- NOTE | 2020-07-15 16:08 | RAD_ITS ---
HISTORY: line placement EXAMINATION/TECHNIQUE: XR Chest 1 View: Portable upright AP chest x-ray COMPARISON: 06/19/20 FINDINGS: LINES/DEVICES: Right-sided Mediport catheter with tip in the SVC 5 cm proximal to the cavoatrial junction. LUNGS: No pneumothorax. Hazy opacity right upper lobe medially with suggestion of air bronchograms. No pleural effusion. MEDIASTINUM AND CARDIOVASCULAR STRUCTURES: Cardiac silhouette not enlarged. Central airways and mediastinal contour are unremarkable. BONES AND SOFT TISSUES: No acute bony abnormalities. RAD/CXR for Line Placement IMPRESSION: Right-sided port placement as above, no postprocedure pneumothorax. Right upper lobe consolidation. Short-term follow-up recommended. at 1709 Reported and signed by: River Santos MD Electronically Signed: River Santos MD at 17:08 EDT Tel , Service support ,
--- NOTE | 2020-07-15 16:12 | DCINST_ITS ---
Discharge Instructions Follow Up Care Test Results: Test results from this visit will be discussed in further detail at your follow-up appointment, if applicable. Discharge Plan Admission Attending Provider: Hodan Chong Primary Care Provider: Ruth Jones Instructions Additional Instructions / Restrictions: Recommended pain control regimen - May take 600 mg ibuprofen (Motrin) and then in 3-4 hours, may take 650 mg acetaminophen (Tylenol), then in 3-4 hours may take 600 mg ibuprofen, then in 3- 4 hours may take 650 mg acetaminophen and so on for 2-3 days May take narcotic pain medication for pain that is not controlled by above and at night for comfort through the night Leave dressings in place May get dressings wet in shower - do not scrub in the area and pat dry Do not soak - no tub baths/swimming Ice applied to as much as tolerated No lifting/pushing/pulling greater than 20 pounds for a month. Please call for a follow up appointment or any questions in 1-2 weeks, The oncology nurses will carefully watch for any problems with the portacath. No need for formal follow up in the surgery clinic - to decrease your risk of exposure. If you have any problems/questions, please call at . Discharge Orders/Prescriptions Prescriptions: New hydrocodone-acetaminophen 5-325 mg tablet 1 tab PO Q8H 5 Days Qty: 15 RF: 0 No Action omeprazole 20 MG capsule 40 mg PO DAILY RF: 0 fluoxetine 20 MG capsule 20 mg PO DAILY RF: 0 multivitamin with folic acid [Thera] 1 TABLET tablet 1 tab PO QHS RF: 0 [id number]-rksmtsu-hfuesggk [Fiorinal] 1 EACH capsule 1 tab PO DAILY PRN PRN (Reason: Pain) RF: 0 acetaminophen 500 MG tablet 500 - 1,000 mg PO Q6H PRN PRN (Reason: Pain) RF: 0 Excedrin Migraine 1 EACH tablet 1 ea PO DAILY PRN PRN (Reason: Pain) RF: 0 ondansetron HCl 8 MG tablet 8 mg PO Q8H PRN PRN (Reason: Nausea) RF: 0 lorazepam 0.5 MG tablet 0.5 mg PO Q8H PRN PRN (Reason: Anxiety) RF: 0 Calcium 600-Vit D3 400 Tablet 1 capsule PO DAILY RF: 0 oxycodone-acetaminophen 1 EACH tablet 1 ea PO Q6H PRN (Reason: Pain 1-10 Or Fever) RF: 0 diphenhydramine HCl 25 MG capsule 25 mg PO PRN PRN (Reason: Sleep) RF: 0 ferrous sulfate 325 MG tablet 325 mg PO QODAY RF: 0 rosuvastatin 10 MG tablet 10 mg PO QHS RF: 0 Cholecalciferol (Vitamin D3) [Vitamin D3] 5,000 UNIT capsule 5,000 unit PO DAILY RF: 0 amlodipine 5 MG tablet 5 mg PO QHS RF: 0 metformin 500 MG tablet 500 mg PO BIDCM RF: 0 ibuprofen 200 MG capsule 200 mg PO PRN PRN (Reason: Pain 1-10 Or Fever) RF: 0 calcium carbonate [Tums] 200 mg calcium (500 mg) Tablet,Chewable 600 mg PO TID RF: 0 gabapentin 100 mg Capsule 100 mg PO QHS RF: 0 Referrals / Follow Up: Ruth Jones DO [Primary Care Provider] - Disposition Discharge Orders: Discharge Patient (Routine); Ordered 07/15/20 Ordered By: Dr. Hodan Chong
== END 2020-07-15 17:58 ==
LOC: SDC 11:56 → AC 11:57
PROVIDERS: PCP Internal Medicine; Referring Provider Surgery; Visit Provider Surgery
PROC: (CPT 36561; principal; 2020-07-15 13:45)
DX: Z45.2 Encounter for adjustment and management of vascular access device (principal); C79.51 Secondary malignant neoplasm of bone; E11.9 Type 2 diabetes mellitus without complications; Z87.891 Personal history of nicotine dependence; Z85.3 Personal history of malignant neoplasm of breast
CPT/HCPCS: 00532; 36561; 71045; 77001; 82962; J7050; J7120; C1788; J2405

== ENCOUNTER 2020-11-15 10:52 | Emergency (ER) | payer MEDICARE, SELFPAY ==
[2020-11-15 10:53] VITALS: BP 115/74; PULSE 124; RESP 20; TEMP 36.2; O2SAT 100; BMI 27.3
[2020-11-15 11:46] LABS: Mucous, Urine 0 SEEN /hpf (<or=2+)
[2020-11-15 11:50] LABS: Color, Urine Yellow (Yellow); Glucose, Dipstick Normal (Normal); Ketone-Dipstick Negative (Negative); Leukocyte Esterase-Dipstick 500 /ul (Negative); Nitrite-Dipstick Negative (Negative); Occult Blood-Urine 25 /ul (Negative); Protein-Dipstick 15 mg/dl (Negative); Urine Bilirubin Dipstick 1 mg/dL (Negative); Urine Clarity Sl. Cloudy (Clear); Urine Urobilinogen 4 mg/dl (Normal)
[2020-11-15 11:56] LABS: Bacteria 2+ /hpf (None Seen); Red Blood Cells-Urine 0-5 SEEN /hpf (0-5); Squamous Epithelial Cells - UA 0-5 SEEN /hpf (5-10); White Blood Cells 25-50 SEEN /hpf (0-5)
--- NOTE | 2020-11-15 12:06 | CT_ITS ---
EXAM: CT ABDOMEN AND PELVIS WITHOUT INTRAVENOUS CONTRAST CLINICAL INDICATION: Pain TECHNIQUE: Helically acquired images were obtained of the abdomen and pelvis without intravenous contrast. This CT exam was performed using one or more of the following dose reduction techniques: automated exposure control, adjustment of the mA and/or kV according to patient size, and/or use of iterative reconstruction technique. This report was created using [employer] report generation technology. COMPARISON: 02/24/2020 FINDINGS: LOWER THORAX: Unremarkable. Lung bases are clear. No cardiomegaly. No significant pericardial effusion. ABDOMEN: LIVER: Diffuse nodular contours of the liver compatible with cirrhosis. Multiple hepatic hypodense lesions that are grossly increased in number since prior CT, limited detail given lack of IV contrast. Limited evaluation of liver and spleen given the lack of IV contrast. GALLBLADDER AND BILE DUCTS: Unremarkable. No calcified gallstones. No gallbladder distention or wall edema. No intra- or extrahepatic biliary ductal dilation. PANCREAS: Unremarkable. No focal cystic mass. SPLEEN: See above. ADRENALS: Unremarkable. No nodules. KIDNEYS AND URETERS: Small punctate left renal calculi. No ureteral calculi. Normal renal size and position. No hydronephrosis. STOMACH AND BOWEL: Unremarkable. No stomach or bowel distention. No focal inflammatory change. PELVIS: APPENDIX: No evidence of acute appendicitis. BLADDER: Unremarkable. REPRODUCTIVE: Unremarkable as visualized. No mass. ABDOMEN and PELVIS: INTRAPERITONEAL SPACE: Ascites in the upper, middle and lower abdomen/pelvis, new. No free air. BONES/JOINTS: Diffuse heterogeneous sclerosis throughout the visualized osseous structures, not substantially changed. No suspicious lytic or blastic abnormality. SOFT TISSUES: Unremarkable. No discrete abdominal or pelvic wall hernia. VASCULATURE: Atherosclerosis of the abdominal aorta and iliac arteries. Abdominal aorta is non-dilated. LYMPH NODES: Unremarkable. No enlarged lymph nodes. CT/Abdomen/Pelvis without Cont IMPRESSION: 1. Diffuse nodular contours of the liver compatible with cirrhosis, new. 2. Multiple hepatic hypodense lesions that are increased in number since prior CT, limited detail given lack of IV contrast, remains suspicious for metastasis. 3. Ascites in the upper, middle and lower abdomen/pelvis, new. 4. Diffuse heterogeneous sclerosis throughout the visualized osseous structures, not substantially changed. Suspicious for osteoblastic metastasis. Electronically Signed: Estuardo Rosas MD ([place]) at 13:21 EDT , Service support ,
--- NOTE | 2020-11-15 12:09 | EDS_ITS ---
HPI History of Present Illness Chief Complaint: Complaint Narrative Narrative: 65-year-old female with history of metastatic ovarian cancer with mets to the bone and to the liver presenting with nausea, vomiting over the weekend. Patient states that her urine was tested at Dr. Pantoja's office on Sunday and they were given a prescription for Cipro over they were told not to take it until the office called. The patient and her state that they did not receive a call over the weekend and this morning the office called and told them not to take the Cipro and was going to prescribe another antibiotic when they told Dr. Fitzpatrick's office that she had been vomiting all weekend. She has not been able to hold down food or fluid. She has a history of ascites and her abdomen is more distended. Patient states that she is on chemotherapy with the last course on Sunday. She states that previous to that she had a fever for about [address] Pantoja knew about. She has not had a fever since Sunday. They state that this was to be expected during the chemotherapy. PFSH [facility] Medical History Anemia Anxiety Arthritis Back pain Cancer Depression Diabetes Diabetes Former smoker Gastric reflux High cholesterol History of edema History of IBS History of stress test History of transesophageal echocardiography (RIC) Hx of echocardiogram Hypertension Kidney stones Migraine headache Shortness of breath on exertion Wears glasses Wears partial dentures Home Medications [id number] [Fiorinal] 1 tab PO DAILY PRN PRN 03/21/13 [History Last Taken Unknown] fluoxetine 20 mg PO DAILY 03/21/13 [History Last Taken 01/18/18] multivitamin with folic acid [Thera] 1 tab PO QHS 03/21/13 [History Last Taken 03/20/13] omeprazole 40 mg PO DAILY 03/21/13 [History Last Taken 07/15/20 09:00 40 mg] Excedrin Migraine 1 ea PO DAILY PRN PRN 04/18/17 [History Last Taken Unknown] acetaminophen 500 - 1,000 mg PO Q6H PRN PRN 04/18/17 [History Last Taken 07/15/20 09:00 500 - 1000 mg] Calcium 600-Vit D3 400 Tablet 1 capsule PO DAILY 01/19/18 [History Last Taken 01/18/18] lorazepam 0.5 mg PO Q8H PRN PRN 01/19/18 [History Last Taken 01/18/18 22:00] ondansetron HCl 8 mg PO Q8H PRN PRN 01/19/18 [History Last Taken Unknown] Cholecalciferol (Vitamin D3) [Vitamin D3] 5,000 unit PO DAILY 03/05/20 [History Last Taken Unknown] amlodipine 5 mg PO QHS 03/05/20 [History Last Taken Unknown] diphenhydramine HCl 25 mg PO PRN PRN 03/05/20 [History Last Taken Unknown] ferrous sulfate 325 mg PO QODAY 03/05/20 [History Last Taken Unknown] oxycodone-acetaminophen 1 ea PO Q6H PRN 03/05/20 [History Last Taken Unknown] rosuvastatin 10 mg PO QHS 03/05/20 [History Last Taken Unknown] ibuprofen 200 mg PO PRN PRN 04/09/20 [History Last Taken Unknown] metformin 500 mg PO BIDCM 04/09/20 [History Last Taken Unknown] calcium carbonate [Tums] 600 mg PO TID 06/19/20 [History Last Taken Unknown] gabapentin 100 mg PO QHS 07/14/20 [History Last Taken Unknown] hydrocodone-acetaminophen 1 tab PO Q8H 5 Days #15 tab 07/15/20 [Rx Last Taken Unknown] Allergy/AdvReac Type Severity Reaction Status Date / Time shellfish derived Allergy Mild Hives Verified 11/15/20 10:55 abemaciclib [From Verzenio] Allergy Other Verified 11/15/20 10:55 iodine Allergy Hives Verified 11/15/20 10:55 lisinopril Allergy Shortness Verified 11/15/20 10:55 of breath liraglutide [From Victoza] AdvReac Nausea, Verified 11/15/20 10:55 VOMITING IV DYE Allergy Mild Hives Uncoded 11/15/20 10:55 Surgical History History of cardiac catheterization History of cholecystectomy Hx of bilateral mastectomy Hx of colonoscopy Hx of lymph node excision Hx of tubal ligation Social History Smoking Status: Former smoker ROS ROS ED Constitutional Constitutional ED: Reports fever(s); Denies weight loss Eyes Eyes: Denies blurry vision or diplopia ENT ENT ED: Denies rhinorrhea or sore throat Cardiovascular Cardiovascular: Denies chest pain or palpitations Respiratory/Chest Respiratory/Chest: Denies cough, dyspnea or sputum Gastrointestinal Gastrointestinal: Reports abdominal pain, nausea, vomiting and other Details: Abdominal distention. Genitourinary Genitourinary ED: Reports dysuria and urinary frequency Musculoskeletal Musculoskeletal: Denies arthralgias or myalgias Integumentary Denies Abrasions or rash Neurologic Neurologic: Denies headache(s) or paresthesias EXAM Physical Exam Const Vital Signs: 11/15/20 10:53 Temperature 97.2 F L Temperature Source Temporal Pulse Rate 124 H Respiratory Rate 20 H Blood Pressure 115/74 Blood Pressure Mean 87 Pulse Ox 100 Oxygen Delivery Method Room Air Positive well nourished General Appearance ED: NAD; Negative for pallor HEENT Reports dry mucous membranes Negative for trauma Mouth ED: Yes dry mucous membranes Mouth: dry mucous membranes Eyes PERRL and EOMs intact bilaterally General Eye ED: Negative for pale conjunctiva or scleral icterus Resp normal respiratory effort and clear to auscultation bilaterally Cardio regular rhythm Rate: tachycardic GI GI Narrative: Abdominal distention. Extremity General Extremety ED: Yes edema; Negative for tenderness General Extremity: edema Neuro oriented x3 and CN's II-XII intact bilaterally Sensorium / Orientation: alert Psych mental status grossly normal Skin General Skin Exam: Negative for jaundice or pallor MDM MDM MDM Narrative Medical decision making narrative: After speaking with Dr. Pantoja it appears that the patient was supposed to be taking his Cipro all weekend although this for likely would not change the course since her culture showed that she was not sensitive to Cipro. Here today she was given morphine and Zofran for nausea and pain. She is given a gram of Rocephin as her urinalysis is positive for infection. Another urine culture was sent. CBC shows that her white blood cell count and hemoglobin are about the same. Her platelet count is 11 which is lower than previously. LFTs are elevated however the patient has metastatic disease to the liver and after speaking with Dr. Pantoja he felt this was a likely source. After discussing this case with him he felt comfortable writing her prescription for Bactrim and following up tomorrow to give her platelets and and trying to arrange paracentesis which I do not believe she is acutely. On reevaluation the patient is comfortable. All discharge plans were discussed with her and her . They will return for new or worsening symptoms. Impression: 1. Bladder infection 2. Thrombocytopenia 3. History of metastatic cancer 4. Transaminitis 5. Ascites Lab Data Labs: Laboratory Results - last 24 hr 11/15/20 11/15/20 11/15/20 11:15 11:15 11:40 WBC 2.8 L RBC 2.75 L Hgb 8.4 L Hct 25.9 L MCV 94.2 MCH 30.5 MCHC 32.4 RDW Std Deviation 69.2 H RDW Coeff of Marisa 20.8 H Plt Count 11 L* Immature Gran % (Auto) 1.400 H Neut % (Auto) 84.3 H Lymph % (Auto) 12.5 L Bryan % (Auto) 1.8 Eos % (Auto) 0.0 Baso % (Auto) 0.0 Absolute Neuts (auto) 2.4 Absolute Lymphs (auto) 0.35 L Nucleated RBC % 0 Diff Path Review May foll Platelet Estimate MKD DEC Hypochromasia 2+ Anisocytosis 2+ Microcytosis 1+ PT INR Sodium 136 Potassium 4.2 Chloride 104 Carbon Dioxide 21.0 Anion Gap 11 BUN 32 H Creatinine 1.17 H Estim Creat Clear Calc 36.17 Est GFR (MDRD) Af Amer 60 Est GFR (MDRD) Non-Af 49 L BUN/Creatinine Ratio 27.4 H Glucose 210 H Calcium 6.7 L Total Bilirubin 4.10 H Direct Bilirubin 2.79 H AST 136 H ALT 66 H Alkaline Phosphatase 308 H Total Protein 5.3 L Albumin 1.8 L Globulin 3.5 Lipase 214 Urine Color Yellow Urine Clarity Sl. Cloudy Urine pH 5.0 Ur Specific Shelby 1.020 Urine Protein 15 H Urine Glucose (UA) Normal Urine Ketones Negative Urine Occult Blood 25 H Urine Nitrite Negative Urine Bilirubin 1 H Urine Urobilinogen 4 H Ur Leukocyte Esterase 500 H Urine RBC 0-5 SEEN Urine WBC 25-50 SEEN Ur Squamous Epith Cells 0-5 SEEN Urine Bacteria 2+ Urine Mucus 0 SEEN 11/15/20 12:55 WBC RBC Hgb Hct MCV MCH MCHC RDW Std Deviation RDW Coeff of Marisa Plt Count Immature Gran % (Auto) Neut % (Auto) Lymph % (Auto) Bryan % (Auto) Eos % (Auto) Baso % (Auto) Absolute Neuts (auto) Absolute Lymphs (auto) Nucleated RBC % Diff Path Review Platelet Estimate Hypochromasia Anisocytosis Microcytosis PT 21.9 H INR 2.0 Sodium Potassium Chloride Carbon Dioxide Anion Gap BUN Creatinine Estim Creat Clear Calc Est GFR (MDRD) Af Amer Est GFR (MDRD) Non-Af BUN/Creatinine Ratio Glucose Calcium Total Bilirubin Direct Bilirubin AST ALT Alkaline Phosphatase Total Protein Albumin Globulin Lipase Urine Color Urine Clarity Urine pH Ur Specific Shelby Urine Protein Urine Glucose (UA) Urine Ketones Urine Occult Blood Urine Nitrite Urine Bilirubin Urine Urobilinogen Ur Leukocyte Esterase Urine RBC Urine WBC Ur Squamous Epith Cells Urine Bacteria Urine Mucus Radiography Diagnostic Testing: Radiology Impression Abdomen/Pelvis CT 11/15/20 12:06 IMPRESSION: 1. Diffuse nodular contours of the liver compatible with cirrhosis, new. 2. Multiple hepatic hypodense lesions that are increased in number since prior CT, limited detail given lack of IV contrast, remains suspicious for metastasis. 3. Ascites in the upper, middle and lower abdomen/pelvis, new. 4. Diffuse heterogeneous sclerosis throughout the visualized osseous structures, not substantially changed. Suspicious for osteoblastic metastasis. Electronically Signed: Estuardo Rosas MD ([place]) at 13:21 EDT , Service support , Discharge Plan Triage Chief Complaint: Complaint ED Provider: Salazar Dodson Dx/Rx/DC Orders Instructions: Thrombocytopenia, ED Ascites, ED CYSTITIS Female Adult Prescriptions: No Action omeprazole 20 MG capsule 40 mg PO DAILY RF: 0 fluoxetine 20 MG capsule 20 mg PO DAILY RF: 0 multivitamin with folic acid [Thera] 1 TABLET tablet 1 tab PO QHS RF: 0 [id number]-kmoyvqp-ojvrzrii [Fiorinal] 1 EACH capsule 1 tab PO DAILY PRN PRN (Reason: Pain) RF: 0 acetaminophen 500 MG tablet 500 - 1,000 mg PO Q6H PRN PRN (Reason: Pain) RF: 0 Excedrin Migraine 1 EACH tablet 1 ea PO DAILY PRN PRN (Reason: Pain) RF: 0 ondansetron HCl 8 MG tablet 8 mg PO Q8H PRN PRN (Reason: Nausea) RF: 0 lorazepam 0.5 MG tablet 0.5 mg PO Q8H PRN PRN (Reason: Anxiety) RF: 0 Calcium 600-Vit D3 400 Tablet 1 capsule PO DAILY RF: 0 oxycodone-acetaminophen 1 EACH tablet 1 ea PO Q6H PRN (Reason: Pain 1-10 Or Fever) RF: 0 diphenhydramine HCl 25 MG capsule 25 mg PO PRN PRN (Reason: Sleep) RF: 0 ferrous sulfate 325 MG tablet 325 mg PO QODAY RF: 0 rosuvastatin 10 MG tablet 10 mg PO QHS RF: 0 Cholecalciferol (Vitamin D3) [Vitamin D3] 5,000 UNIT capsule 5,000 unit PO DAILY RF: 0 amlodipine 5 MG tablet 5 mg PO QHS RF: 0 metformin 500 MG tablet 500 mg PO BIDCM RF: 0 ibuprofen 200 MG capsule 200 mg PO PRN PRN (Reason: Pain 1-10 Or Fever) RF: 0 calcium carbonate [Tums] 200 mg calcium (500 mg) Tablet,Chewable 600 mg PO TID RF: 0 gabapentin 100 mg Capsule 100 mg PO QHS RF: 0 hydrocodone-acetaminophen 5-325 mg tablet 1 tab PO Q8H 5 Days Qty: 15 RF: 0 Primary Care Provider: Ruth Jones Referrals: Ruth Jones DO [Primary Care Provider] - Harpreet Pantoja DO [STAFF PHYSICIAN] - As soon as possible
[2020-11-15] MEDS: 0.9% Normal Saline 1,000 ML 1000 ML IV (12:19)
[2020-11-15] MEDS: Ondansetron 4 MG/2 ML Vial IV (12:19)
[2020-11-15] MEDS: Morphine 4 MG/ML Syringe IV (12:19)
[2020-11-15 12:45] LABS: Absolute Lymphocyte Count 0.35 X10^3/uL (0.83-4.51); Absolute Neutrophil Count 2.4 X10^3/uL (2.0-7.7); Hematocrit 25.9 % (37-47); Hemoglobin 8.4 g/dL (12.0-15.0); Lymphocyte # 0.35 X10^3/ul (0.83-4.51); Lymphocyte % 12.5 % (19-41); Mean Corp Hgb Conc 32.4 g/dL (32-36); Mean Corpuscular Hgb 30.5 pg (27.0-32.0); Mean Corpuscular Volume 94.2 fL (81-99); Monocyte# 0.05 X10^3/uL; Monocyte% 1.8 % (0-10); NRBC Flagged by Analyzer 0 % (0-5); Neutrophil # 2.35 X10^3/uL (2.7-7.7); Neutrophil % 84.3 % (47-70); POSITIVE COUNT YES; POSITIVE DIFFERENTIAL YES; POSITIVE MORPHOLOGY YES; RBC Distribution Width CV 20.8 % (11.6-14.6); RBC Distribution Width SD 69.2 fl (35.1-43.9); Red Blood Count 2.75 M/mm3 (4.2-5.4); White Blood Count 2.8 K/mm3 (4.4-11.0)
[2020-11-15 12:50] LABS: Differential Indicated SCAN CRITERIA MET; Platelet Count 11 K/mm3 (150-450)
[2020-11-15] MEDS: Ceftriaxone 1 GM/50 ML BAG IV (12:50)
[2020-11-15 12:56] LABS: AST(SGOT) 136 U/L (15-37); Alanine Aminotransfer ALT/SGPT 66 U/L (13-56); Albumin, Serum 1.8 g/dL (3.2-5.0); Alkaline Phosphatase 308 U/L (45-117); Anion Gap 11 (5-15); BUN 32 mg/dL (7-18); BUN/Creat Ratio 27.4 RATIO (10-20); Bilirubin, Direct 2.79 mg/dL (0.00-0.30); Calcium,Total 6.7 mg/dL (8.5-10.1); Chloride 104 mmol/L (98-107); Creatinine, Serum 1.17 mg/dL (0.55-1.02); EST Glomerular Filtration Rate 49 mL/min (>60); Est Glom Filt Rate - Afr Amer 60 mL/min (>60); Estimated Creatinine Clearance 36.17 ml/min; Globulin 3.5 g/dL (2.2-4.2); Glucose 210 mg/dL (74-106); Lipase 214 U/L (73-393); Potassium 4.2 mmol/L (3.5-5.1); Protein, Total 5.3 g/dL (6.4-8.2); Sodium Level 136 mmol/L (136-145)
[2020-11-15 13:11] LABS: Prothrombin Time (Protime)PT. 21.9 SECONDS (11.7-14.9)
[2020-11-15 13:18] LABS: Anisocytosis 2+; Hypochromasia 2+; Microcytosis 1+; Platelet Estimate MKD DEC (ADEQ)
[2020-11-15 14:19] VITALS: BP 142/88; PULSE 89; RESP 16; O2SAT 99
[2020-11-16 12:01] LABS: Pathologist Review Reviewed
== END 2020-11-15 14:20 | disposition home or self-care (01) ==
PROVIDERS: Emergency Provider Student in an Organized Health Care Education/Training Program; PCP Internal Medicine
DX: N30.90 Cystitis, unspecified without hematuria (principal); D69.6 Thrombocytopenia, unspecified; R74.01 Elevation of levels of liver transaminase levels; R18.8 Other ascites; C78.7 Secondary malignant neoplasm of liver and intrahepatic bile duct; Z85.43 Personal history of malignant neoplasm of ovary; C79.51 Secondary malignant neoplasm of bone; D64.9 Anemia, unspecified; E11.9 Type 2 diabetes mellitus without complications; E78.00 Pure hypercholesterolemia, unspecified; F32.9 Major depressive disorder, single episode, unspecified; F41.9 Anxiety disorder, unspecified; I10 Essential (primary) hypertension; K21.9 Gastro-esophageal reflux disease without esophagitis; K58.9 Irritable bowel syndrome, unspecified; Z79.82 Long term (current) use of aspirin; Z79.84 Long term (current) use of oral hypoglycemic drugs; Z87.891 Personal history of nicotine dependence
CPT/HCPCS: 36591; 74176; 80048; 80076; 81001; 83690; 85025; 85610; 87086; 87088; 87186; 99284; J7030; A4216; J2405

== ENCOUNTER → 2020-11-16 08:55 | Outpatient (CLI) | payer MEDICARE, SELFPAY ==
[2020-11-16 09:21] VITALS: BP 125/60; PULSE 123; RESP 16; TEMP 36.2; O2SAT 99; BMI 27.9
[2020-11-16 09:52] VITALS: BP 117/76; PULSE 116; RESP 16; TEMP 36.6; O2SAT 100
[2020-11-16 10:11] VITALS: BP 117/92; PULSE 121; RESP 18; TEMP 36.6; O2SAT 100
== END ==
PROVIDERS: PCP Internal Medicine; Referring Provider Internal Medicine Hematology & Oncology; Visit Provider Internal Medicine Hematology & Oncology
DX: Z51.89 Encounter for other specified aftercare (principal); D64.81 Anemia due to antineoplastic chemotherapy
CPT/HCPCS: 36430; 86644; 86900; 86901; 86965; J7040; P9035